=== PATIENT | female | born 1950 | race Caucasian/White ===

== ENCOUNTER 2017-11-02 12:34 | Emergency (ER) | payer MEDICARE, OTHER, SELFPAY ==
[2017-11-02 12:35] VITALS: BP 93/59; PULSE 66; RESP 18; TEMP 36.3; O2SAT 100
--- NOTE | 2017-11-02 13:00 | ED.VISSUMM ---
- ER Visit Summary Date of Service: 11/02/17 Chief Complaint: Constipation History of Present Illness: The patient is a 67 F with history of peripheral vascular disease, hypertension and rheumatoid arthritis presents with constipation. Patient states that she feels like she is impacted. She states she does get this from time to time. She states she has not had a normal bowel movement in about 5-7 days. She has been taking MiraLAX and stool softeners with little relief. She denies any fevers. She denies any abdominal pain. Her only current pain is in the rectum when she tries to move her bowels. She states there is been some scant bleeding. She denies weight loss or night sweats. Physical Examination: Vital signs reviewed General: Well-nourished, well-developed Head: Normocephalic, atraumatic Eyes: Pupils equal and reactive, extraocular muscles intact Neck, supple, no lymphadenopathy Heart: Regular rate and rhythm Respiratory: No distress, clear bilaterally Abdomen: Soft, nontender, nondistended, no peritoneal signs Rectal exam: Patient has some edema around the rectal canal, but no prolapse. There was evidence of hemorrhoid. She is impacted. Back: Nontender Extremities: Nontender, no edema, no cords Skin: Normal color no rash Neuro: Alert and oriented, no focal or lateralizing deficits Test Results: [] Emergency Department Course and Treatment: The patient was manually disimpacted at the bedside with marked improvement of symptoms. A large amount of hard stool is able to be removed. The patient was then given a soapsuds enema. She has absolutely no abdominal tenderness. The patient was able to have a bowel movements. She is feeling markedly improved. The patient will be discharged and continue stool softeners. Repeat abdominal exam is soft and nontender. Treatment Plan: [] Disposition: Discharge Impression:. Fecal impaction with manual disimpaction This note was generated with [employer] dictation software. It may contain incorrect words, spelling, and punctuation that were not noted in review of the chart prior to signing ED Disposition - Plan for ED Patient: Disposition: Home or Assisted Living Chief Complaint: Constipation Instructions: ED Impaction Fecal Treated Referrals: Rigoberto Maher [Primary Care Provider] -
[2017-11-02 14:47] VITALS: BP 92/64; PULSE 65; RESP 17; O2SAT 94
== END 2017-11-02 14:48 | disposition home or self-care (01) ==
PROVIDERS: Emergency Provider Emergency Medicine; Family Provider Family Medicine; PCP Family Medicine
DX: K56.41 Fecal impaction (principal); M06.9 Rheumatoid arthritis, unspecified
CPT/HCPCS: 99283

== ENCOUNTER 2017-11-02 20:33 | Inpatient (IN) | payer MEDICARE, OTHER, SELFPAY ==
[2017-11-02 20:33] VITALS: BP 127/64; PULSE 81; RESP 10; TEMP 37.2; O2SAT 97; BMI 30.2
[2017-11-02 21:05] LABS: Absolute Lymphocyte Count 1.26 X10^3/ul (0.83-4.51); Absolute Neutrophil Count 14.6 X10^3/uL (2.0-7.7); Basophil# 0.02 X10^3/uL; Basophil% 0.1 % (0-1); Eosinophil# 0.07 X10^3/uL; Eosinophils% 0.4 % (0-5); Hematocrit 31.6 % (37-47); Hemoglobin 10.4 g/dl (12.0-15.0); Lymphocyte # 1.26 X10^3/ul (4.0); Lymphocyte % 7.2 % (19-41); Mean Corp Hgb Conc 32.9 g/gl (32-36); Mean Corpuscular Hgb 32.4 pg (27.0-32.0); Mean Corpuscular Volume 98.4 fL (81-99); Mean Platelet Vol. 8.9 fl (6.2-12.0); Monocyte% 7.5 % (0-10); Neutrophil # 14.61 X10^3/uL (2.7-7.7); Neutrophil % 84.1 % (47-70); Platelet Count 258 K/mm3 (150-450); RBC Distribution Width CV 14.2 % (11.6-14.6); RBC Distribution Width SD 48.4 fl (35.1-43.9); Red Blood Count 3.21 M/mm3 (4.2-5.4); White Blood Count 17.4 K/mm3 (4.4-11.0)
[2017-11-02 21:06] LABS: POSITIVE COUNT NO; POSITIVE DIFFERENTIAL NO; POSITIVE MORPHOLOGY NO
[2017-11-02 21:16] LABS: Anion Gap 9 (5-15); BUN 23 mg/dL (7-18); BUN/Creat Ratio 11.8 RATIO (10-20); Calcium,Total 8.9 mg/dL (8.5-10.1); Chloride 97 mmol/L (98-107); Creatinine, Serum 1.95 mg/dL (0.55-1.02); EST Glomerular Filtration Rate 27 mL/min (>60); Est Glom Filt Rate - Afr Amer 33 mL/min (>60); Estimated Creatinine Clearance 24.84 ml/min; Glucose 118 mg/dL (74-106); Potassium 5.4 mmol/L (3.5-5.1); Sodium Level 130 mmol/L (136-145)
[2017-11-02] MEDS: 0.9% Normal Saline 1,000 ML 150 ML IV (21:24)
[2017-11-02 22:20] LABS: Bacteria 0 SEEN /hpf (None Seen); Mucous, Urine 0 SEEN /hpf (<or=2+); Red Blood Cells-Urine 0 SEEN /hpf (0-5)
[2017-11-02 22:48] LABS: Color, Urine Yellow (Yellow); Glucose, Dipstick Normal (Normal); Ketone-Dipstick Negative (Negative); Leukocyte Esterase-Dipstick 25 /ul (Negative); Nitrite-Dipstick Negative (Negative); Occult Blood-Urine Negative /ul (Negative); Protein-Dipstick 15 mg/dl (Negative); Urine Clarity Sl. Cloudy (Clear); Urine Urobilinogen Normal (Normal)
--- NOTE | 2017-11-02 22:51 | ED.VISSUMM ---
- ER Visit Summary Date of Service: 11/02/17 Chief Complaint: Weakness History of Present Illness: The patient is a 67 F who was seen in the ER earlier today for a fecal impaction. Patient states her blood pressure was a little low at that time and she felt somewhat weak. She was able to ambulate into her house with her walker at home but then was unable to stand tonight due to leg weakness. EMS transported her back to the hospital. Patient reports multiple falls recently. On further questioning she does note her legs have been getting weaker recently. Patient states this has happened to her 3 or 4 times in the past where she is required hospital admission and physical therapy. Patient states she does currently has stitches in her right knee for a fall that she sustained on October 23. Physical Examination: Vital signs are unremarkable. Patient sitting upright in bed no acute distress. Head neck examination is unremarkable. Heart is regular rate and rhythm. Lung sounds are clear. Abdomen is soft and nontender. Upper extremity examination reveals some old appearing skin tears on her left arm. Lower external examination reveals her right knee to have a 3 x 6 cm skin tear with some mild blood oozing. There is an approximately 7 cm in length laceration is irregular just medial to this. Stitches are in place in parts of the laceration, but due to the nature of the lack itself was not able to be completely closed at the time of injury. Wound was cleansed and wound edges are clean. Neuro exam reveals normal sensation to lower extremities. She has weakly palpable distal pulses. She has upgoing Babinski. She has generalized weakness and cannot lift her legs up off the bed. Test Results: CBC was a white count of 17.4 with 84% neutrophils. Hemoglobin is 10.4. Chemistry studies reveal a sodium of 130, potassium of 5.4, chloride 97. Her BUN is 23 and her creatinine is 1.95. Last labs I have available to compare to are from April 2016. Emergency Department Course and Treatment: Nursing staff attempted to get the patient up to the bedside commode. She is able to swing her legs to the side of the bed but was not able to support her own weight to stand. She was placed back into the bed and straight cath was performed. Urinalysis unremarkable does not show sign of infection. She will be admitted for further treatment and evaluation. Treatment Plan: [] Disposition: Admit Impression: 1. Bilateral leg weakness, unable to stand 2. Leukocytosis This note was generated with [employer] dictation software. It may contain incorrect words, spelling, and punctuation that were not noted in review of the chart prior to signing ED Disposition - Plan for ED Patient: Chief Complaint: Weakness Referrals: Rigoberto Maher [Primary Care Provider] -
[2017-11-02 22:58] LABS: Urine Bilirubin Dipstick 1 mg/dL (Negative)
[2017-11-02 23:07] LABS: Hyaline Cast 5-10 SEEN /lpf (0-5); Squamous Epithelial Cells - UA 0-5 SEEN /hpf (5-10); White Blood Cells 0-5 SEEN /hpf (0-5)
[2017-11-02 23:08] LABS: Amorphous Sediment 1+ URATE
[2017-11-02 23:33] VITALS: BP 102/49; PULSE 72; RESP 13; O2SAT 98
--- NOTE | 2017-11-02 23:37 | PCM.HP.STD ---
Problem List (1) Coronary atherosclerosis of [place] coronary artery Status: Chronic Qualifiers: [place] vs. transplanted heart: unspecified whether [place] or transplanted heart Associated angina: angina presence unspecified Qualified Code(s): I25.10 - Atherosclerotic heart disease of [place] coronary artery without angina pectoris (2) Peripheral neuropathy Status: Chronic Qualifiers: Peripheral neuropathy type: polyneuropathy, unspecified Qualified Code(s): G62.9 - Polyneuropathy, unspecified (3) Rheumatoid arthritis Status: Chronic Qualifiers: Rheumatoid arthritis location: unspecified site Rheumatoid factor presence: unspecified presence Qualified Code(s): M06.9 - Rheumatoid arthritis, unspecified (4) Traumatic open wound of lower leg Status: Chronic Qualifiers: Encounter type: subsequent encounter Laterality: right Qualified Code(s): S81.801D - Unspecified open wound, right lower leg, subsequent encounter (5) Lumbar spinal stenosis Status: Chronic (6) Bilateral lower extremity weakness Status: Chronic (7) Back pain Status: Chronic Qualifiers: Back pain location: low back pain Back pain laterality: bilateral Sciatica presence: with sciatica Sciatica laterality: bilateral sciatica (8) Lumbar radiculopathy Status: Chronic (9) Hyperlipidemia Status: Chronic Qualifiers: Hyperlipidemia type: mixed hyperlipidemia Qualified Code(s): E78.2 - Mixed hyperlipidemia (10) Asthma Status: Chronic Qualifiers: Asthma severity: unspecified severity Asthma persistence: unspecified Asthma complication type: uncomplicated Qualified Code(s): J45.909 - Unspecified asthma, uncomplicated (11) Hypertension Status: Chronic Qualifiers: Hypertension type: essential hypertension Qualified Code(s): I10 - Essential (primary) hypertension (12) Foot drop, left Status: Chronic (13) PAD (peripheral artery disease) Status: Chronic (14) Cellulitis Status: Acute Qualifiers: Site of cellulitis: extremity Site of cellulitis of extremity: lower extremity Laterality: right Qualified Code(s): L03.115 - Cellulitis of right lower limb (15) ANDRIY (acute kidney injury) Status: Acute (16) Lower extremity weakness Status: Acute Qualifiers: Laterality: bilateral Qualified Code(s): R29.898 - Other symptoms and signs involving the musculoskeletal system History of Present Illness Date of Admission: 11/02/17 Chief Complaint: Falls, RLE laceration, s/p suture, recent abx, fecal impacting, increased BL LE weakness. The patient is a 67 y/o F w/ PMHx: Chronic Normocytic anemia, CAD s/p PCI x 3, PAD s/p BL femoral stents, RA, Chronic back pain w/ lumbar stenosis s/p lumbar fusion w/ radiculopathy, Asthma, HTN, HLD, Obesity, Left Foot Drop who presents to the [facility] ED on 11/02/17 with history of frequent falls, most recently a couple days prior w/ laceration to the RLE w/ concern for infection per primary care physician and initiation levaquin, recent acute on chronic constipation requiring ED evaluation 11/02/17 earlier in the day w/ fecal disimpaction required with improvement following however upon return to home noted increased LE weakness, not specifically increased pain which had improved following fecal disimpaction. She notes currently she is at her back pain baseline. She denies any loss of bowel or bladder function. She denies any marked changes in regards to paresthesias. She denies any recent fevers or chills. In the ED work-up included T 99, HR 70-80s, BP 102/49, RR 13, 98% on RA, CBC w/ WBC 17.4, Hgb 10.3, Plts 258 with L shift, BMP w/ Na 130, K 5.4, Chl 97, BUN/Cr 23/1.95, glucose 118, UA not marked appearing. Past Medical History Past Medical History (Chronic Problems): Chronic Problems Coronary atherosclerosis of [place] coronary artery (Chronic) Peripheral neuropathy (Chronic) Rheumatoid arthritis (Chronic) Traumatic open wound of lower leg (Chronic) Struck by falling object (Chronic) W20.8XXD Lumbar spinal stenosis (Chronic) Bilateral lower extremity weakness (Chronic) Ulcer of left lower extremity with fat layer exposed (Chronic) Risk for falls (Chronic) Back pain (Chronic) Lumbar radiculopathy (Chronic) Hyperlipidemia (Chronic) Lumbar disc disease (Chronic) Asthma (Chronic) Hypertension (Chronic) Foot drop, left (Chronic) PAD (peripheral artery disease) (Chronic) Allergies colesevelam HCl [From WelChol] Allergy (Verified 11/02/17 12:35) Unknown metolazone [From Zaroxolyn] Allergy (Verified 11/02/17 12:35) Unknown nitrofurantoin macrocrystalline [From Macrodantin] Allergy (Verified 11/02/17 12:35) Unknown Penicillins Allergy (Verified 11/02/17 12:35) Unknown pravastatin sodium [From Pravachol] Allergy (Verified 11/02/17 12:35) Unknown Home Medications: Ambulatory Orders Medication Instructions Recorded Cyanocobalamin [Vitamin B12] 1,000 mcg IM Q30D 06/19/15 Montelukast [Singulair] 10 mg PO DAILY 06/19/15 Nitroglycerin [Nitrostat] 0.4 mg SUBLINGUAL Q5M PRN 06/19/15 Quinapril HCl [Accupril] 10 mg PO QHS 06/19/15 Ranolazine [Ranexa] 1,000 mg PO BID 06/19/15 Temazepam [Restoril] 30 mg PO QHS PRN PRN 06/19/15 Albuterol Inhaler [Ventolin Hfa] 1 puff INHALATION Q4H PRN PRN 05/01/16 Bumetanide 1 mg PO DAILY 05/01/16 Ergocalciferol [Vitamin D] 50,000 unit PO SA 05/01/16 Omeprazole 40 mg PO BID 05/01/16 Aspirin E.C. [Ecotrin] 81 mg PO DAILYCM #30 tablet 05/03/16 Acetaminophen with Codeine 1 each PO Q8 PRN 11/02/17 [Tylenol with Codeine #3 Tablet] Atorvastatin Calcium [Lipitor] 80 mg PO QHS 11/02/17 Furosemide [Furosemide] 40 mg BID 11/02/17 Gabapentin [Neurontin] 400 mg BID 11/02/17 Levofloxacin [Levaquin] 750 mg DAILY 11/02/17 Prednisone [Prednisone] 5 mg DAILY 11/02/17 Smz/Tmp Ds [Bactrim Ds] 1 tablet PO DAILY 11/02/17 Spironolactone 25 mg PO BID 11/02/17 Surgical History: noncontributory, - - The patient has had coronary stents placed in the past, as well as femoral stents in her lower extremities bilaterally by Dr. Alden Hernández. She has undergone lumbar fusion at L5. She is undergone right carpal tunnel release. Psychiatric History: No pertinent psych hx [employer] History: No pertinent [employer] history Lives: Spouse/ Significant Other Smoking Status: Former smoker - Quit 1996. Tobacco Use: Non-smoker Alcohol: None Drugs: None - *Family History Maternal History Items: - - The patient's mother in her 60s from lung cancer. Paternal History Items: - - The patient's father at age of 82 of congestive heart failure. Review of Systems Constitutional: Reports: Malaise, Weakness, Fatigue. Denies: Chills, Fever, Weight Change HEENT: Denies: Head Aches, Sinus Congestion, Sinus Drainage Cardiovascular: Denies: Chest Pain, Palpitations Respiratory: Denies: Cough, Shortness of breath at rest, Sputum production Gastrointestinal: Reports: Abdominal Pain, Constipation. Denies: Nausea, Vomiting Genitourinary: Denies: Dysuria Musculoskeletal: Reports: Back Pain. Denies: Joint Pain, Joint Tenderness Skin: Denies: Rash, Wounds Neurological: Reports: Focal weakness, Numbness, Tingling Psychiatric: Denies: Anxiety, Depression, Homicidal Ideations, Suicidal Ideations Hematologic/ Lymphatic: Reports: Anemia, Easy Bruising, Easy Bleeding VTE Information - Inpt Only VTE Present on Admission: No VTE Mechan Device Prophylaxis: SCD's VTE Pharm Prophylaxis ordered?: Yes Patient Problems: Active and Suspected Problems Cellulitis (Acute) ANDRIY (acute kidney injury) (Acute) Lower extremity weakness (Acute) Subjective: Seated upright in the ED bed, fatigued. Objective: Physical Examination: General: awake, alert, oriented x 3 and cooperative, seated upright in the ED bed in no apparent distress. Skin: normal color, turgor, no icterus, cyanosis, several abrasions to BL LE, notable diffuse extremity various staged ecchymoses, fall with right lower extremity laceration status post suturing repair, currently not market appearance but recently per report was concern for cellulitis with start on oral antibiotic therapy, cleansed and redressed in the ED. HEENT: AT/NC, EOMI, PERRLA, dry MM, no carotid bruits or JVD noted. Lungs: CTA bilaterally, moderate effort, moderate decrease BL bases, no rales, ronchi or wheezing. Heart: Regular rate and rhythm; no gallop, rub audible. Abdomen: soft, obese, NTTP, ND, normal BS, no HSM. Extremities: no cyanosis, clubbing, RLE 2+ edema ankle to knee, LLE < edematous 1+. Neurological: patient awake, alert, oriented x 3; cognitive function intact; pupils equally reactive to light and accomodation; cranial nerves II-XII grossly normal, moving all 4 extremities, strength BL LE globally severely weakness, no specific focal deficit. Psychiatric: affect appears fatigued, no acute evidence of depressive or anxiety feelings. - Physical Exam Vital Signs Temp Pulse Resp BP Pulse Ox 99.0 F 81 10 L 127/64 H 97 11/02/17 20:33 11/02/17 20:33 11/02/17 20:33 11/02/17 20:33 11/02/17 20:33 Oxygen Delivery Method Room Air Weight: 176 lb 2.389 oz Body Mass Index (BMI) 30.2 Laboratory Tests Past 24 Hrs 11/02/17 11/02/17 11/02/17 20:55 20:55 22:16 WBC 17.4 H RBC 3.21 L Hgb 10.4 L Hct 31.6 L MCV 98.4 MCH 32.4 H MCHC 32.9 RDW 14.2 RDW Differential 48.4 H Plt Count 258 MPV 8.9 Immature Gran % (Auto) 0.700 Neut % (Auto) 84.1 H Lymph % (Auto) 7.2 L [place] % (Auto) 7.5 Eos % (Auto) 0.4 Baso % (Auto) 0.1 Absolute Neuts (auto) 14.6 H Absolute Lymphs (auto) 1.26 Total Counted Not Reportable Sodium 130 L Potassium 5.4 H Chloride 97 L Carbon Dioxide 24.0 Anion Gap 9 BUN 23 H Creatinine 1.95 H Estim Creat Clear Calc 24.84 Est GFR (MDRD) Af Amer 33 L Est GFR (MDRD) Non-Af 27 L BUN/Creatinine Ratio 11.8 Glucose 118 H Calcium 8.9 Urine Color Yellow Urine Clarity Sl. Cloudy Urine pH 5.0 Ur Specific [place] 1.020 Urine Protein 15 H Urine Glucose (UA) Normal Urine Ketones Negative Urine Occult Blood Negative Urine Nitrite Negative Urine Bilirubin 1 H Urine Urobilinogen Normal Ur Leukocyte Esterase 25 H Urine RBC 0 SEEN Urine WBC 0-5 SEEN Ur Squamous Epith Cells 0-5 SEEN Amorphous Sediment 1+ URATE Urine Bacteria 0 SEEN Hyaline Casts 5-10 SEEN Urine Mucus 0 SEEN Assessment/Plan Active and Suspected Problems Cellulitis (Acute) ANDRIY (acute kidney injury) (Acute) Lower extremity weakness (Acute) The patient is a 67 y/o F w/ PMHx: Chronic Normocytic anemia, CAD s/p PCI x 3, PAD s/p BL femoral stents, RA, Chronic back pain w/ lumbar stenosis s/p lumbar fusion w/ radiculopathy, Asthma, HTN, HLD, Obesity, Left Foot Drop who presents to the [facility] ED on 11/02/17 with history of frequent falls, most recently a couple days prior w/ laceration to the RLE w/ concern for infection per primary care physician and initiation levaquin, recent acute on chronic constipation requiring ED evaluation 11/02/17 earlier in the day w/ fecal disimpaction required with improvement following however upon return to home noted increased LE weakness, not specifically increased pain which had improved following fecal disimpaction. (1) RLE Recent Extremity Cellulitis s/p Recent Fall w/ Laceration, s/p sutures: Admission CBC w/ WBC 17.4 with L shift. Will admit to [facility], initiate IV Rocephin (only took 1 dose oral abx levaquin regimen), wound RN evaluation, cleansed and re-dressed in the ED, plan repeat CBC in AM, continue affected extremity elevation above heart when seated and in bed, monitor erythema outline with VS checks, snug NOREEN wraps. (2) Acute kidney injury: Secondary to suspected dehydration, nephrotoxic regimen, poor intake. Admission BUN/Cr 23/1.95, prior baseline creatinine noted to be 1.2. Will hydrate, hold nephrotoxic medications and repeat chemistry in AM. If no improvement would plan FeNa assessment and renal US. (3) Hyponatremia, Suspected Hypovolemic: Admission Na 130, BUN/Cr mildly elevated also, suspect mild dehydration, will gently hydrate, trend BMP. (4) BL LE Increased Acute on Chronic Weakness complicated by Chronic Pain Syndrome, Chronic Back Pain: Fall precautions, frequent position changes, PT and OT therapies/evaluations, PRN pain regimen. If acute on chronic then would initiate steroid burst and would given history need to consider re-imaging on her lumbar spine. Primarily weakness increased w/ ambulatory attempts. (5) Hypertension: Holding home nephrotoxic regimen, add back once renal fx improved, PRN hydralazine. (6) Hyperlipidemia: Maintain on home statin therapy. (7) CAD, PAF: s/p PCI x 3, BL LE femoral stents, maintain on asa therapy, not on BB secondary to asthma likely, continue statin therapy. (8) Asthma: ATC duonebs, PRN albuterol, HOB, IS parameters, singulair. (9) RA: Regimen clarification pending, notes 5 mg prednisone daily prior. (10) Chronic Normocytic Anemia: Admission Hgb 10.4, baseline Hgb 10-11, stable, trend. (11) Obesity: Weight loss and lifestyle changes encouraged. (12) Chronic Constipation: Initiate aggressive bowel regimen given ongoing issue, noted frequent requirement for disimpaction. (13) DVT Prophylaxis: SCDs, heparin. Code Visit Inpatient E&M: 59493 Init Hosp L3
--- NOTE | 2017-11-02 23:42 | HP.PCM_ITS ---
Problem List (1) Coronary atherosclerosis of cherokee coronary artery Status: Chronic Qualifiers: [place] vs. transplanted heart: unspecified whether cherokee or transplanted heart Associated angina: angina presence unspecified Qualified Code(s): I25.10 - Atherosclerotic heart disease of cherokee coronary artery without angina pectoris (2) Peripheral neuropathy Status: Chronic Qualifiers: Peripheral neuropathy type: polyneuropathy, unspecified Qualified Code(s): G62.9 - Polyneuropathy, unspecified (3) Rheumatoid arthritis Status: Chronic Qualifiers: Rheumatoid arthritis location: unspecified site Rheumatoid factor presence : unspecified presence Qualified Code(s): M06.9 - Rheumatoid arthritis, unspecified (4) Traumatic open wound of lower leg Status: Chronic Qualifiers: Encounter type: subsequent encounter Laterality: right Qualified Code(s) : S81.801D - Unspecified open wound, right lower leg, subsequent encounter (5) Lumbar spinal stenosis Status: Chronic (6) Bilateral lower extremity weakness Status: Chronic (7) Back pain Status: Chronic Qualifiers: Back pain location: low back pain Back pain laterality: bilateral Sciatica presence: with sciatica Sciatica laterality: bilateral sciatica (8) Lumbar radiculopathy Status: Chronic (9) Hyperlipidemia Status: Chronic Qualifiers: Hyperlipidemia type: mixed hyperlipidemia Qualified Code(s): E78.2 - Mixed hyperlipidemia (10) Asthma Status: Chronic Qualifiers: Asthma severity: unspecified severity Asthma persistence: unspecified Asthma complication type: uncomplicated Qualified Code(s): J45.909 - Unspecified asthma, uncomplicated (11) Hypertension Status: Chronic Qualifiers: Hypertension type: essential hypertension Qualified Code(s): I10 - Essential (primary) hypertension (12) Foot drop, left Status: Chronic (13) PAD (peripheral artery disease) Status: Chronic (14) Cellulitis Status: Acute Qualifiers: Site of cellulitis: extremity Site of cellulitis of extremity: lower extremity Laterality: right Qualified Code(s): L03.115 - Cellulitis of right lower limb (15) ANDRIY (acute kidney injury) Status: Acute (16) Lower extremity weakness Status: Acute Qualifiers: Laterality: bilateral Qualified Code(s): R29.898 - Other symptoms and signs involving the musculoskeletal system History of Present Illness Date of Admission: 11/02/17 Chief Complaint: Falls, RLE laceration, s/p suture, recent abx, fecal impacting , increased BL LE weakness. The patient is a 67 y/o F w/ PMHx: Chronic Normocytic anemia, CAD s/p PCI x 3, PAD s/p BL femoral stents, RA, Chronic back pain w/ lumbar stenosis s/p lumbar fusion w/ radiculopathy, Asthma, HTN, HLD, Obesity, Left Foot Drop who presents to the [facility] ED on 11/02/17 with history of frequent falls, most recently a couple days prior w/ laceration to the RLE w/ concern for infection per primary care physician and initiation levaquin, recent acute on chronic constipation requiring ED evaluation 11/02/17 earlier in the day w/ fecal disimpaction required with improvement following however upon return to home noted increased LE weakness, not specifically increased pain which had improved following fecal disimpaction. She notes currently she is at her back pain baseline. She denies any loss of bowel or bladder function. She denies any marked changes in regards to paresthesias. She denies any recent fevers or chills. In the ED work-up included T 99, HR 70-80s, BP 102/49, RR 13, 98% on RA, CBC w/ WBC 17.4, Hgb 10.3 , Plts 258 with L shift, BMP w/ Na 130, K 5.4, Chl 97, BUN/Cr 23/1.95, glucose 118, UA not marked appearing. Past Medical History Past Medical History (Chronic Problems): Chronic Problems Coronary atherosclerosis of cherokee coronary artery (Chronic) Peripheral neuropathy (Chronic) Rheumatoid arthritis (Chronic) Traumatic open wound of lower leg (Chronic) Struck by falling object (Chronic) W20.8XXD Lumbar spinal stenosis (Chronic) Bilateral lower extremity weakness (Chronic) Ulcer of left lower extremity with fat layer exposed (Chronic) Risk for falls (Chronic) Back pain (Chronic) Lumbar radiculopathy (Chronic) Hyperlipidemia (Chronic) Lumbar disc disease (Chronic) Asthma (Chronic) Hypertension (Chronic) Foot drop, left (Chronic) PAD (peripheral artery disease) (Chronic) Allergies colesevelam HCl [From WelChol] Allergy (Verified 11/02/17 12:35) Unknown metolazone [From Zaroxolyn] Allergy (Verified 11/02/17 12:35) Unknown nitrofurantoin macrocrystalline [From Macrodantin] Allergy (Verified 11/02/17 12 :35) Unknown Penicillins Allergy (Verified 11/02/17 12:35) Unknown pravastatin sodium [From Pravachol] Allergy (Verified 11/02/17 12:35) Unknown Home Medications: Ambulatory Orders Medication Instructions Recorded Cyanocobalamin [Vitamin B12] 1,000 mcg IM Q30D 06/19/15 Montelukast [Singulair] 10 mg PO DAILY 06/19/15 Nitroglycerin [Nitrostat] 0.4 mg SUBLINGUAL Q5M PRN 06/19/15 Quinapril HCl [Accupril] 10 mg PO QHS 06/19/15 Ranolazine [Ranexa] 1,000 mg PO BID 06/19/15 Temazepam [Restoril] 30 mg PO QHS PRN PRN 06/19/15 Albuterol Inhaler [Ventolin Hfa] 1 puff INHALATION Q4H PRN PRN 05/01/16 Bumetanide 1 mg PO DAILY 05/01/16 Ergocalciferol [Vitamin D] 50,000 unit PO SA 05/01/16 Omeprazole 40 mg PO BID 05/01/16 Aspirin E.C. [Ecotrin] 81 mg PO DAILYCM #30 tablet 05/03/16 Acetaminophen with Codeine 1 each PO Q8 PRN 11/02/17 [Tylenol with Codeine #3 Tablet] Atorvastatin Calcium [Lipitor] 80 mg PO QHS 11/02/17 Furosemide [Furosemide] 40 mg BID 11/02/17 Gabapentin [Neurontin] 400 mg BID 11/02/17 Levofloxacin [Levaquin] 750 mg DAILY 11/02/17 Prednisone [Prednisone] 5 mg DAILY 11/02/17 Smz/Tmp Ds [Bactrim Ds] 1 tablet PO DAILY 11/02/17 Spironolactone 25 mg PO BID 11/02/17 Surgical History: noncontributory, - - The patient has had coronary stents placed in the past, as well as femoral stents in her lower extremities bilaterally by Dr. Alden Hernández. She has undergone lumbar fusion at L5. She is undergone right carpal tunnel release. Psychiatric History: No pertinent psych hx PHLEBOTOMY TECHNICIAN History: No pertinent PHLEBOTOMY TECHNICIAN history Lives: Spouse/ Significant Other Smoking Status: Former smoker - Quit 1996. Tobacco Use: Non-smoker Alcohol: None Drugs: None - *Family History Maternal History Items: - - The patient's mother in her 60s from lung cancer. Paternal History Items: - - The patient's father at age of 82 of congestive heart failure. Review of Systems Constitutional: Reports: Malaise, Weakness, Fatigue. Denies: Chills, Fever, Weight Change HEENT: Denies: Head Aches, Sinus Congestion, Sinus Drainage Cardiovascular: Denies: Chest Pain, Palpitations Respiratory: Denies: Cough, Shortness of breath at rest, Sputum production Gastrointestinal: Reports: Abdominal Pain, Constipation. Denies: Nausea, Vomiting Genitourinary: Denies: Dysuria Musculoskeletal: Reports: Back Pain. Denies: Joint Pain, Joint Tenderness Skin: Denies: Rash, Wounds Neurological: Reports: Focal weakness, Numbness, Tingling Psychiatric: Denies: Anxiety, Depression, Homicidal Ideations, Suicidal Ideations Hematologic/ Lymphatic: Reports: Anemia, Easy Bruising, Easy Bleeding VTE Information - Inpt Only VTE Present on Admission: No VTE Mechan Device Prophylaxis: SCD's VTE Pharm Prophylaxis ordered?: Yes Patient Problems: Active and Suspected Problems Cellulitis (Acute) ANDRIY (acute kidney injury) (Acute) Lower extremity weakness (Acute) Subjective: Seated upright in the ED bed, fatigued. Objective: Physical Examination: General: awake, alert, oriented x 3 and cooperative, seated upright in the ED bed in no apparent distress. Skin: normal color, turgor, no icterus, cyanosis, several abrasions to BL LE, notable diffuse extremity various staged ecchymoses, fall with right lower extremity laceration status post suturing repair, currently not market appearance but recently per report was concern for cellulitis with start on oral antibiotic therapy, cleansed and redressed in the ED. HEENT: AT/NC, EOMI, PERRLA, dry MM, no carotid bruits or JVD noted. Lungs: CTA bilaterally, moderate effort, moderate decrease BL bases, no rales, ronchi or wheezing. Heart: Regular rate and rhythm; no gallop, rub audible. Abdomen: soft, obese, NTTP, ND, normal BS, no HSM. Extremities: no cyanosis, clubbing, RLE 2+ edema ankle to knee, LLE < edematous 1+. Neurological: patient awake, alert, oriented x 3; cognitive function intact; pupils equally reactive to light and accomodation; cranial nerves II-XII grossly normal, moving all 4 extremities, strength BL LE globally severely weakness, no specific focal deficit. Psychiatric: affect appears fatigued, no acute evidence of depressive or anxiety feelings. - Physical Exam Vital Signs Temp Pulse Resp BP Pulse Ox 99.0 F 81 10 L 127/64 H 97 11/02/17 20:33 11/02/17 20:33 11/02/17 20:33 11/02/17 20:33 11/02/17 20:33 Oxygen Delivery Method Room Air Weight: 176 lb 2.389 oz Body Mass Index (BMI) 30.2 Laboratory Tests Past 24 Hrs 11/02/17 11/02/17 11/02/17 20:55 20:55 22:16 WBC 17.4 H RBC 3.21 L Hgb 10.4 L Hct 31.6 L MCV 98.4 MCH 32.4 H MCHC 32.9 RDW 14.2 RDW Differential 48.4 H Plt Count 258 MPV 8.9 Immature Gran % (Auto) 0.700 Neut % (Auto) 84.1 H Lymph % (Auto) 7.2 L Gregory % (Auto) 7.5 Eos % (Auto) 0.4 Baso % (Auto) 0.1 Absolute Neuts (auto) 14.6 H Absolute Lymphs (auto) 1.26 Total Counted Not Reportable Sodium 130 L Potassium 5.4 H Chloride 97 L Carbon Dioxide 24.0 Anion Gap 9 BUN 23 H Creatinine 1.95 H Estim Creat Clear Calc 24.84 Est GFR (MDRD) Af Amer 33 L Est GFR (MDRD) Non-Af 27 L BUN/Creatinine Ratio 11.8 Glucose 118 H Calcium 8.9 Urine Color Yellow Urine Clarity Sl. Cloudy Urine pH 5.0 Ur Specific [place] 1.020 Urine Protein 15 H Urine Glucose (UA) Normal Urine Ketones Negative Urine Occult Blood Negative Urine Nitrite Negative Urine Bilirubin 1 H Urine Urobilinogen Normal Ur Leukocyte Esterase 25 H Urine RBC 0 SEEN Urine WBC 0-5 SEEN Ur Squamous Epith Cells 0-5 SEEN Amorphous Sediment 1+ URATE Urine Bacteria 0 SEEN Hyaline Casts 5-10 SEEN Urine Mucus 0 SEEN Assessment/Plan Active and Suspected Problems Cellulitis (Acute) ANDRIY (acute kidney injury) (Acute) Lower extremity weakness (Acute) The patient is a 67 y/o F w/ PMHx: Chronic Normocytic anemia, CAD s/p PCI x 3, PAD s/p BL femoral stents, RA, Chronic back pain w/ lumbar stenosis s/p lumbar fusion w/ radiculopathy, Asthma, HTN, HLD, Obesity, Left Foot Drop who presents to the [facility] ED on 11/02/17 with history of frequent falls, most recently a couple days prior w/ laceration to the RLE w/ concern for infection per primary care physician and initiation levaquin, recent acute on chronic constipation requiring ED evaluation 11/02/17 earlier in the day w/ fecal disimpaction required with improvement following however upon return to home noted increased LE weakness, not specifically increased pain which had improved following fecal disimpaction. (1) RLE Recent Extremity Cellulitis s/p Recent Fall w/ Laceration, s/p sutures: Admission CBC w/ WBC 17.4 with L shift. Will admit to [facility], initiate IV Rocephin ( only took 1 dose oral abx levaquin regimen), wound RN evaluation, cleansed and re-dressed in the ED, plan repeat CBC in AM, continue affected extremity elevation above heart when seated and in bed, monitor erythema outline with VS checks, snug NOREEN wraps. (2) Acute kidney injury: Secondary to suspected dehydration, nephrotoxic regimen , poor intake. Admission BUN/Cr 23/1.95, prior baseline creatinine noted to be 1.2. Will hydrate, hold nephrotoxic medications and repeat chemistry in AM. If no improvement would plan FeNa assessment and renal US. (3) Hyponatremia, Suspected Hypovolemic: Admission Na 130, BUN/Cr mildly elevated also, suspect mild dehydration, will gently hydrate, trend BMP. (4) BL LE Increased Acute on Chronic Weakness complicated by Chronic Pain Syndrome, Chronic Back Pain: Fall precautions, frequent position changes, PT and OT therapies/evaluations, PRN pain regimen. If acute on chronic then would initiate steroid burst and would given history need to consider re-imaging on her lumbar spine. Primarily weakness increased w/ ambulatory attempts. (5) Hypertension: Holding home nephrotoxic regimen, add back once renal fx improved, PRN hydralazine. (6) Hyperlipidemia: Maintain on home statin therapy. (7) CAD, PAF: s/p PCI x 3, BL LE femoral stents, maintain on asa therapy, not on BB secondary to asthma likely, continue statin therapy. (8) Asthma: ATC duonebs, PRN albuterol, HOB, IS parameters, singulair. (9) RA: Regimen clarification pending, notes 5 mg prednisone daily prior. (10) Chronic Normocytic Anemia: Admission Hgb 10.4, baseline Hgb 10-11, stable, trend. (11) Obesity: Weight loss and lifestyle changes encouraged. (12) Chronic Constipation: Initiate aggressive bowel regimen given ongoing issue , noted frequent requirement for disimpaction. (13) DVT Prophylaxis: SCDs, heparin. Code Visit Inpatient E&M: 90558 Init Hosp L3
[2017-11-02 23:50] VITALS: BP 102/49; PULSE 72; RESP 13; O2SAT 98
[2017-11-03] VITALS (9 sets, daily range): BP systolic 115–126; BP diastolic 53–68; PULSE 69–76; RESP 16–18; TEMP 36.5–37; O2SAT 93–100; BMI 29.9
[2017-11-03 01:02] LABS: Magnesium 1.8 mg/dL (1.6-2.6)
[2017-11-03] MEDS: 0.9% Normal Saline 1,000 ML 125 ML IV ×3 (01:13→20:12)
[2017-11-03] MEDS: 0.9% NaCl Peripheral Flush Adult/Peds IV ×2 (01:14→15:25)
[2017-11-03] MEDS: Ceftriaxone 1 GM/50 ML BAG IV (01:14)
[2017-11-03] MEDS: HYDROcodone Bitartrate/Apap 5/325 Tablet PO ×4 (01:46→23:07)
[2017-11-03 06:28] LABS: Absolute Lymphocyte Count 1.74 X10^3/ul (0.83-4.51); Absolute Neutrophil Count 12.8 X10^3/uL (2.0-7.7); Basophil# 0.02 X10^3/uL; Basophil% 0.1 % (0-1); Eosinophil# 0.11 X10^3/uL; Eosinophils% 0.7 % (0-5); Hematocrit 27.5 % (37-47); Lymphocyte # 1.74 X10^3/ul (4.0); Mean Corp Hgb Conc 32.7 g/gl (32-36); Mean Corpuscular Hgb 32.8 pg (27.0-32.0); Mean Corpuscular Volume 100.4 fL (81-99); Mean Platelet Vol. 8.9 fl (6.2-12.0); Monocyte# 1.01 X10^3/uL; Monocyte% 6.4 % (0-10); Neutrophil # 12.82 X10^3/uL (2.7-7.7); Neutrophil % 81.3 % (47-70); Platelet Count 227 K/mm3 (150-450); RBC Distribution Width CV 14.2 % (11.6-14.6); RBC Distribution Width SD 49.8 fl (35.1-43.9); Red Blood Count 2.74 M/mm3 (4.2-5.4); White Blood Count 15.8 K/mm3 (4.4-11.0)
[2017-11-03 06:33] LABS: POSITIVE COUNT NO; POSITIVE DIFFERENTIAL NO; POSITIVE MORPHOLOGY NO
[2017-11-03] MEDS: Ipratropium/Albuterol Sulfate 3 ML AMPUL.NEB INHALATION ×3 (06:33→19:01)
[2017-11-03 06:52] LABS: Anion Gap 8 (5-15); BUN 21 mg/dL (7-18); Calcium,Total 8.4 mg/dL (8.5-10.1); Chloride 100 mmol/L (98-107); Creatinine, Serum 1.62 mg/dL (0.55-1.02); EST Glomerular Filtration Rate 34 mL/min (>60); Est Glom Filt Rate - Afr Amer 41 mL/min (>60); Glucose 86 mg/dL (74-106); Potassium 4.8 mmol/L (3.5-5.1); Sodium Level 131 mmol/L (136-145)
[2017-11-03] MEDS: Aspirin E.C. 81 MG Tablet PO (07:59)
[2017-11-03] MEDS: Psyllium 1 PACKET PO (08:59)
[2017-11-03] MEDS: Senna/Docusate Sodium 1 Tablet 2 TABLET PO (09:00)
[2017-11-03] MEDS: Pantoprazole Sodium 40 MG Tablet PO ×2 (09:00→22:16)
[2017-11-03] MEDS: Ranolazine 500 MG Tablet 1000 MG PO ×2 (09:00→22:16)
[2017-11-03] MEDS: Montelukast 10 MG Tablet PO (09:00)
[2017-11-03] MEDS: Polyethylene Glycol 3350 17 GM PACKET PO (09:00)
--- NOTE | 2017-11-03 09:43 | NURSING ---
wound photo: left knee
--- NOTE | 2017-11-03 09:44 | NURSING ---
wound photo: right knee
--- NOTE | 2017-11-03 09:44 | NURSING ---
wound photo: right arm
[2017-11-03 13:22] LABS: Vitamin B12 633 pg/mL (211-911)
[2017-11-03 13:24] LABS: Ferritin 191 ng/mL (8-252); Iron 27 ug/dL (50-170); Iron Binding Capacity,Total 244 ug/dL (250-450); PERCENT IRON SATURATION 11.1 % (15.0-55.0)
--- NOTE | 2017-11-03 14:01 | PN_ITS ---
Addendum entered and electronically signed by MARILYN Bess 11/03/17 17:18: Code Visit DVT ppx: heparin BID - will continue unless she shows active bleeding or anemia worsens. Original Note: <Hebert Zamudio - Last Filed: 11/03/17 17:16> Patient Problems: Active and Suspected Problems Cellulitis (Acute) ANDRIY (acute kidney injury) (Acute) Lower extremity weakness (Acute) Subjective: Best resting comfortably in bed NAD. She was admitted for cellulitis of the RLE which occurred after obtaining lacerations from a fall recently which were partially sutured. She currently has no complaints of fever or chills. She has noticed some yellow discharge from the wounds on her right leg and reports she has been hospitalized prior for MRSA to the RLE - last time she had MRSA was about a year ago. She cannot recall what hospital she was hospitalized at. - Physical Exam General: Alert, Oriented x3, Cooperative HEENT: Atraumatic, PERRLA, EOMI, Normocephalic Neck: Supple, No JVD, Negative Carotid Bruits Lungs: Clear to auscultation, Normal air movement Cardiovascular: Regular rate, No murmurs Abdomen: Bowel Sounds Present, Soft, Non Tender Extremities: No edema, Capillary Refill Less than 3 Seconds Skin: No rashes, No breakdown, - - lacerations to the RLE with surrounding erythema Musculoskeletal: No Tenderness to Palpation of Joints or Extremities Neurological: Cranial nerves II-XII grossly intact Psych/Mental Status: Normal Affect, Appropriate, Alert and oriented to time, place, person, mood and affect Vital Signs Temp Pulse Resp BP Pulse Ox 98.0 F 73 18 126/61 H 100 11/03/17 12:22 11/03/17 12:22 11/03/17 12:22 11/03/17 12:22 11/03/17 12:22 Oxygen Delivery Method Room Air Weight: 79.2 kg Body Mass Index (BMI) 29.9 Intake and Output for Last 24 Hours 11/01/17 11/02/17 11/03/17 23:59 23:59 23:59 Intake Total 2625 / 2625 Output Total 2800 / 2800 Balance -175 / -175 Laboratory Tests Past 24 Hrs 11/03/17 11/03/17 11/03/17 06:06 06:06 06:06 WBC 15.8 H RBC 2.74 L Hgb 9.0 L Hct 27.5 L MCV 100.4 H MCH 32.8 H MCHC 32.7 RDW 14.2 RDW Differential 49.8 H Plt Count 227 MPV 8.9 Immature Gran % (Auto) 0.500 Neut % (Auto) 81.3 H Lymph % (Auto) 11.0 L [place] % (Auto) 6.4 Eos % (Auto) 0.7 Baso % (Auto) 0.1 Absolute Neuts (auto) 12.8 H Absolute Lymphs (auto) 1.74 Total Counted Not Reportable Sodium 131 L Potassium 4.8 Chloride 100 Carbon Dioxide 23.0 Anion Gap 8 BUN 21 H Creatinine 1.62 H Estim Creat Clear Calc 29.90 Est GFR (MDRD) Af Amer 41 L Est GFR (MDRD) Non-Af 34 L BUN/Creatinine Ratio 13.0 Glucose 86 Calcium 8.4 L Iron 27 L TIBC 244 L Iron Saturation 11.1 L Ferritin 191 Vitamin B12 Folate 19.40 11/03/17 06:06 WBC RBC Hgb Hct MCV MCH MCHC RDW RDW Differential Plt Count MPV Immature Gran % (Auto) Neut % (Auto) Lymph % (Auto) [place] % (Auto) Eos % (Auto) Baso % (Auto) Absolute Neuts (auto) Absolute Lymphs (auto) Total Counted Sodium Potassium Chloride Carbon Dioxide Anion Gap BUN Creatinine Estim Creat Clear Calc Est GFR (MDRD) Af Amer Est GFR (MDRD) Non-Af BUN/Creatinine Ratio Glucose Calcium Iron TIBC Iron Saturation Ferritin Vitamin B12 633 Folate Assessment/Plan Active and Suspected Problems Cellulitis (Acute) ANDRIY (acute kidney injury) (Acute) Lower extremity weakness (Acute) 1. RLE cellulitis from fall with lac - was prescribed levaquin as outpatient but only took one dose. Started on rocephin overnight. Wound nurse on consult. Allergic to PCN - fainted last time she took it. With Hx of MRSA and wound with yellow discharge - will treat for MRSA. Change abx to Vancomycin and Ancef with renal dosing. Obtain MRSA/MSSA PCR and wound cultures. Blood cultures pending. Urine negative. Afebril. Leukocytosis improving. She is immunocompromised 2/2 chronic prednisone therapy for RA. She also has a hx of PAD which will complicate wound healing. 2. ANDRIY - with Hyponatremia - probably hypovolemic, will monitor on IV NaCl. I am concerned that she has both bumex and lasix listed on her home meds this could explain her hypovolemia and ANDRIY. These are being held. suspect dehydration. IV fluids. Improved. Avoid nephrotoxins. 3. Hyperkalemia resolved 4. Hx asthma - stable, duonebs, albuterol, singulair 5. Macrocytic anemia - T/S. Check Iron panel, B12, folate. 6. RA - on chronic prednisone 7. Debility 2/2 - Recent falls. Severe lumbar and cervical spine disease and RA - PTOT consults. 8. Hx CAD - on statin, ranexa 9. HTN - stable 10. Obesity - dietary consult. DVT pps: SCDs, severe anemia - no chemoppx DC planning: PTOT This patient was seen by Hebert Zamudio PA-C under the supervision of Doctor Luisito. <Virgilio Jorge - Last Filed: 11/03/17 17:38> Subjective: Agree with the above note. Patient has history of chronic neck and back pain most related to peripheral neuropathy/radiculopathy. She has urine retention and does not sense bladder filling. As per the nursing staff she had 1400 mL urine retention and was straight catheterized. - Physical Exam General: Alert, Oriented x3, Cooperative HEENT: Atraumatic, PERRLA, EOMI, Normocephalic Neck: Supple, No JVD, Negative Carotid Bruits Lungs: Clear to auscultation Cardiovascular: Regular rate, Regular Rhythm, Normal S1, Normal S2, No murmurs Abdomen: Bowel Sounds Present, Soft, Non Tender Extremities: No edema, Capillary Refill Less than 3 Seconds Skin: No rashes, Skin Tear, - - lacerations to the RLE with surrounding erythema Multiple bruises present Musculoskeletal: No Tenderness to Palpation of Joints or Extremities Neurological: Cranial nerves II-XII grossly intact, Neuro grossly intact Psych/Mental Status: Normal Affect, Appropriate Vital Signs Temp Pulse Resp BP Pulse Ox 98.4 F 75 18 122/68 H 100 11/03/17 16:30 11/03/17 16:30 11/03/17 16:30 11/03/17 16:30 11/03/17 16:30 Oxygen Delivery Method Room Air Weight: 174 lb 9.698 oz Body Mass Index (BMI) 29.9 Intake and Output for Last 24 Hours 11/01/17 11/02/17 11/03/17 23:59 23:59 23:59 Intake Total 2625 / 2625 Output Total 2800 / 2800 Balance -175 / -175 Laboratory Tests Past 24 Hrs 11/03/17 11/03/17 11/03/17 06:06 06:06 06:06 WBC 15.8 H RBC 2.74 L Hgb 9.0 L Hct 27.5 L MCV 100.4 H MCH 32.8 H MCHC 32.7 RDW 14.2 RDW Differential 49.8 H Plt Count 227 MPV 8.9 Immature Gran % (Auto) 0.500 Neut % (Auto) 81.3 H Lymph % (Auto) 11.0 L [place] % (Auto) 6.4 Eos % (Auto) 0.7 Baso % (Auto) 0.1 Absolute Neuts (auto) 12.8 H Absolute Lymphs (auto) 1.74 Total Counted Not Reportable Sodium 131 L Potassium 4.8 Chloride 100 Carbon Dioxide 23.0 Anion Gap 8 BUN 21 H Creatinine 1.62 H Estim Creat Clear Calc 29.90 Est GFR (MDRD) Af Amer 41 L Est GFR (MDRD) Non-Af 34 L BUN/Creatinine Ratio 13.0 Glucose 86 Calcium 8.4 L Iron 27 L TIBC 244 L Iron Saturation 11.1 L Ferritin 191 Vitamin B12 Folate 19.40 11/03/17 06:06 WBC RBC Hgb Hct MCV MCH MCHC RDW RDW Differential Plt Count MPV Immature Gran % (Auto) Neut % (Auto) Lymph % (Auto) Jewell % (Auto) Eos % (Auto) Baso % (Auto) Absolute Neuts (auto) Absolute Lymphs (auto) Total Counted Sodium Potassium Chloride Carbon Dioxide Anion Gap BUN Creatinine Estim Creat Clear Calc Est GFR (MDRD) Af Amer Est GFR (MDRD) Non-Af BUN/Creatinine Ratio Glucose Calcium Iron TIBC Iron Saturation Ferritin Vitamin B12 633 Folate Assessment/Plan This patient was seen in conjunction with Hebert SANDERS. I have independently interviewed and examined the patient and reviewed pertinent history, examination findings, laboratory and plan of management. I have reviewed the note and agree with the documented findings with the few additional points. In brief, patient is admitted for right lower extremity with multiple skin lacerations last years. Patient also has urinary retention and had 2-3 times straight catheterization and then finally Spence catheter ordered. Started on Flomax 0.4 mg p.o. twice daily. Urologist consult. Knees and bladder ultrasound ordered. I have discussed my assessment with Hebert SANDERS and orders have been reviewed. Code Visit Inpatient E&M: 14242 Subs Hosp L3
[2017-11-03] MEDS: Cefazolin 1 GM/50 ML BAG IV ×2 (14:02→22:16)
[2017-11-03] MEDS: Ondansetron 4 MG/2 ML Vial IV (15:25)
--- NOTE | 2017-11-03 15:56 | PCM.RX.CS ---
Consult Type of Consult: New start Suspected Infection: Skin/Soft tissue Prior Doses of Antibiotics Received/Current Regimen: Vancomycin HCl 1,250 mg/ (Sodium Chloride) 275 mls @ 183.333 mls/hr IV X1 ONE Stop: 11/03/17 15:29 Last Admin: 11/03/17 15:10 Dose: 183.333 mls/hr Labs: Sodium 131 mmol/L (136-145) L 11/03/17 06:06 Potassium 4.8 mmol/L (3.5-5.1) 11/03/17 06:06 Chloride 100 mmol/L (98-107) 11/03/17 06:06 Carbon Dioxide 23.0 mmol/L (21.0-32.0) 11/03/17 06:06 Anion Gap 8 (5-15) 11/03/17 06:06 BUN 21 mg/dL (7-18) H 11/03/17 06:06 Creatinine 1.62 mg/dL (0.55-1.02) H 11/03/17 06:06 Est GFR (MDRD) Af Amer 41 mL/min (>60) L 11/03/17 06:06 Est GFR (MDRD) Non-Af 34 mL/min (>60) L 11/03/17 06:06 BUN/Creatinine Ratio 13.0 RATIO (10-20) 11/03/17 06:06 Glucose 86 mg/dL (74-106) 11/03/17 06:06 Weight used for dosin.2 kg Estimated Creatinine Clearance: ~30 ml/min Goal Trough: 10-15 mcg/mL Pharmacy Plan for Drug Dosing: Will start 1250mg iv q24h based on Cr 1.6 and CrCl ~30. Patient borderline for q24h to q36h dosing. Have started q24h for now since Cr improved from 11.02.17. Will monitor renal fxn and get Vancomycin trough before 3rd dose on 11.05.17 Pharmacy Service will continue to monitor and adjust dosing as required. Follow-Up Labs: Trough Vancomycin Labs to be done on [date and time ordered]: 11.05.17 @[id number]
--- NOTE | 2017-11-03 17:36 | PCM.CONS.U ---
Problem List (1) Urinary retention Status: Acute Reason for Consult Date of Consultation: 11/03/17 Reason for Consultation: Urinary retention History of Present Illness: The patient is a 67 year old female who was having weakness in her legs and she fell she was also found to have severe constipation was disimpacted in the emergency room. She went into urinary retention was not able to urinate had to be straight cath and out the catheter is in place family also reports that she has a hard time emptying her bladder. She reports having a hard time knowing when to go to the bathroom. At this point we reviewed her medications and can start some Flomax 0.4 mg daily I would think in 48 hours we can remove the catheter and do another voiding trial. Past Medical History Past Medical History (Chronic Problems): Chronic Problems Coronary atherosclerosis of makah coronary artery (Chronic) Peripheral neuropathy (Chronic) Rheumatoid arthritis (Chronic) Traumatic open wound of lower leg (Chronic) Struck by falling object (Chronic) W20.8XXD Lumbar spinal stenosis (Chronic) Bilateral lower extremity weakness (Chronic) Ulcer of left lower extremity with fat layer exposed (Chronic) Risk for falls (Chronic) Back pain (Chronic) Lumbar radiculopathy (Chronic) Hyperlipidemia (Chronic) Lumbar disc disease (Chronic) Asthma (Chronic) Hypertension (Chronic) Foot drop, left (Chronic) PAD (peripheral artery disease) (Chronic) Allergies colesevelam HCl [From WelChol] Allergy (Verified 11/02/17 12:35) Unknown metolazone [From Zaroxolyn] Allergy (Verified 11/02/17 12:35) Unknown nitrofurantoin macrocrystalline [From Macrodantin] Allergy (Verified 11/02/17 12:35) Unknown Penicillins Allergy (Verified 11/03/17 12:13) Unknown PASSED OUT pravastatin sodium [From Pravachol] Allergy (Verified 11/02/17 12:35) Unknown Home Medications: Ambulatory Orders Medication Instructions Recorded Cyanocobalamin [Vitamin B12] 1,000 mcg IM Q30D 06/19/15 Montelukast [Singulair] 10 mg PO DAILY 06/19/15 Nitroglycerin [Nitrostat] 0.4 mg SUBLINGUAL Q5M PRN 06/19/15 Ranolazine [Ranexa] 1,000 mg PO BID 06/19/15 Temazepam [Restoril] 30 mg PO QHS PRN PRN 06/19/15 Albuterol Inhaler [Ventolin Hfa] 1 puff INHALATION Q4H PRN PRN 05/01/16 Bumetanide 1 mg PO DAILY 05/01/16 Ergocalciferol [Vitamin D] 50,000 unit PO SA 05/01/16 Omeprazole 40 mg PO BID 05/01/16 Acetaminophen with Codeine 1 each PO Q8H PRN PRN 11/02/17 [Tylenol with Codeine #3 Tablet] Atorvastatin Calcium [Lipitor] 80 mg PO QHS 11/02/17 Furosemide [Furosemide] 40 mg PO BID 11/02/17 Gabapentin [Neurontin] 400 mg PO BID 11/02/17 Levofloxacin [Levaquin] 750 mg PO DAILY 11/02/17 Prednisone [Prednisone] 5 mg PO DAILY 11/02/17 Spironolactone 25 mg PO BID 11/02/17 Surgical History: noncontributory, - - The patient has had coronary stents placed in the past, as well as femoral stents in her lower extremities bilaterally by Dr. Alden Hernández. She has undergone lumbar fusion at L5. She is undergone right carpal tunnel release. 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 Paternal History Items: - - The patient's father at age of 82 of congestive heart failure. Review of Systems Constitutional: Denies: Chills, Fever, Weight Change HEENT: Denies: Head Aches, Sinus Congestion, Sinus Drainage Cardiovascular: Denies: Chest Pain, Palpitations Respiratory: Denies: Cough, Shortness of breath at rest, Sputum production Gastrointestinal: Denies: Abdominal Pain, Nausea, Vomiting Genitourinary: Reports: Retention. Denies: Dysuria Musculoskeletal: Denies: Joint Pain, Joint Tenderness Skin: Denies: Rash, Wounds Neurological: Denies: Numbness, Tingling, Focal weakness Psychiatric: Denies: Anxiety, Depression, Homicidal Ideations, Suicidal Ideations Hematologic/ Lymphatic: Denies: Easy Bruising, Easy Bleeding Physical Exam - Physical Exam Vital Signs Temp 98.4 F 11/03/17 16:30 Pulse 75 11/03/17 16:30 Resp 18 11/03/17 16:30 BP 122/68 H 11/03/17 16:30 Pulse Ox 100 11/03/17 16:30 Intake & Output 11/01/17 11/02/17 11/03/17 23:59 23:59 23:59 Intake Total 2625 / 2625 Output Total 2800 / 2800 Balance -175 / -175 Weight: 79.2 kg Intake: Oral 1260 / 1260 IV fluid/meds 1365 / 1365 Output: Urine 2800 / 2800 General: Alert, Oriented x3 HEENT: Atraumatic Oral: Moist Mucosa Neck: Supple Lungs: Normal air movement Cardiovascular: Regular rate, Regular Rhythm Abdomen: Bowel Sounds Present, Soft, Obese Rectal: Exam deferred Laboratory Tests Past 24 Hrs 11/03/17 11/03/17 11/03/17 06:06 06:06 06:06 WBC 15.8 H RBC 2.74 L Hgb 9.0 L Hct 27.5 L MCV 100.4 H MCH 32.8 H MCHC 32.7 RDW 14.2 RDW Differential 49.8 H Plt Count 227 MPV 8.9 Immature Gran % (Auto) 0.500 Neut % (Auto) 81.3 H Lymph % (Auto) 11.0 L [place] % (Auto) 6.4 Eos % (Auto) 0.7 Baso % (Auto) 0.1 Absolute Neuts (auto) 12.8 H Absolute Lymphs (auto) 1.74 Total Counted Not Reportable Sodium 131 L Potassium 4.8 Chloride 100 Carbon Dioxide 23.0 Anion Gap 8 BUN 21 H Creatinine 1.62 H Estim Creat Clear Calc 29.90 Est GFR (MDRD) Af Amer 41 L Est GFR (MDRD) Non-Af 34 L BUN/Creatinine Ratio 13.0 Glucose 86 Calcium 8.4 L Iron 27 L TIBC 244 L Iron Saturation 11.1 L Ferritin 191 Vitamin B12 Folate 19.40 11/03/17 06:06 WBC RBC Hgb Hct MCV MCH MCHC RDW RDW Differential Plt Count MPV Immature Gran % (Auto) Neut % (Auto) Lymph % (Auto) [place] % (Auto) Eos % (Auto) Baso % (Auto) Absolute Neuts (auto) Absolute Lymphs (auto) Total Counted Sodium Potassium Chloride Carbon Dioxide Anion Gap BUN Creatinine Estim Creat Clear Calc Est GFR (MDRD) Af Amer Est GFR (MDRD) Non-Af BUN/Creatinine Ratio Glucose Calcium Iron TIBC Iron Saturation Ferritin Vitamin B12 633 Folate Assessment/Plan Active and Suspected Problems Cellulitis (Acute) ANDRIY (acute kidney injury) (Acute) Lower extremity weakness (Acute) Urinary retention (Acute) 67-year-old female with onset of urinary retention multiple factors. Will start on Flomax 0.4 mg daily review her other medications would recommend bowel regimen to move her bowels and have her more regular. I can take out the catheter in 48 hours for another voiding trial and intermittent straight catheterization after that.
[2017-11-03] MEDS: Tamsulosin HCl 0.4 MG Capsule PO (18:23)
[2017-11-03] MEDS: Atorvastatin Calcium 80 MG Tablet PO (22:16)
[2017-11-04] VITALS (8 sets, daily range): BP systolic 95–124; BP diastolic 63–70; PULSE 73–84; RESP 16–18; TEMP 36.2–36.9; O2SAT 94–97
[2017-11-04 00:50] LABS: Staph aureus DNA By PCR POSITIVE (Negative)
[2017-11-04 00:51] LABS: M R Staph aureus DNA By PCR POSITIVE (Negative); Probe Check PASS
[2017-11-04] MEDS: 0.9% Normal Saline 1,000 ML 125 ML IV ×2 (03:58→14:22)
--- NOTE | 2017-11-04 05:55 | US_ITS ---
STUDY: RENAL ULTRASOUND - COMPLETE REASON FOR EXAM: Female, 67 years old. Acute kidney injury with urinary retention. TECHNIQUE: Ultrasound evaluation of the kidneys was performed with real-time and static barrett-scale imaging. COMPARISON: None. FINDINGS: RIGHT KIDNEY: with mild renal atrophy. The right kidney measures 8.6 x 4.1 x 4.9 cm. There is a normal cortex of the right kidney. The renal cortex measures 1.1 cm. There is no right renal mass or cyst. There are no right renal calculi. There is no right hydronephrosis. LEFT KIDNEY: with mild renal atrophy. The left kidney measures 7.9 x 3.9 x 4.6 cm. There is a normal cortex of the left kidney. The renal cortex measures 0.8 cm. There is no left renal mass or cyst. There are no left renal calculi. There is no left hydronephrosis. BLADDER: The distended urinary bladder has a volume of 103 ml. A Spence catheter seen within the bladder. There is a normal wall thickness of the distended urinary bladder. There is no demonstrated mass within the urinary bladder. There are no demonstrated bladder calculi. US/Kidney and Bladder IMPRESSION: Bilateral renal atrophy. Spence catheter seen within a minimally filled urinary bladder. Electronically Signed: John Stanton MD at 17:28 EDT , Service support ,
[2017-11-04] MEDS: Ipratropium/Albuterol Sulfate 3 ML AMPUL.NEB INHALATION ×3 (07:10→19:10)
[2017-11-04 07:15] LABS: Absolute Lymphocyte Count 1.55 X10^3/ul (0.83-4.51); Absolute Neutrophil Count 8.5 X10^3/uL (2.0-7.7); Basophil# 0.02 X10^3/uL; Basophil% 0.2 % (0-1); Eosinophil# 0.14 X10^3/uL; Eosinophils% 1.3 % (0-5); Hematocrit 26.8 % (37-47); Hemoglobin 8.6 g/dl (12.0-15.0); Lymphocyte # 1.55 X10^3/ul (4.0); Mean Corp Hgb Conc 32.1 g/gl (32-36); Mean Corpuscular Hgb 32.3 pg (27.0-32.0); Mean Corpuscular Volume 100.8 fL (81-99); Mean Platelet Vol. 8.7 fl (6.2-12.0); Monocyte# 0.76 X10^3/uL; Monocyte% 6.9 % (0-10); Neutrophil # 8.51 X10^3/uL (2.7-7.7); Neutrophil % 76.7 % (47-70); Platelet Count 203 K/mm3 (150-450); RBC Distribution Width SD 54.6 fl (35.1-43.9); Red Blood Count 2.66 M/mm3 (4.2-5.4); White Blood Count 11.1 K/mm3 (4.4-11.0)
[2017-11-04 07:16] LABS: Anion Gap 7 (5-15); BUN 13 mg/dL (7-18); BUN/Creat Ratio 10.1 RATIO (10-20); Calcium,Total 8.5 mg/dL (8.5-10.1); Chloride 105 mmol/L (98-107); Creatinine, Serum 1.29 mg/dL (0.55-1.02); EST Glomerular Filtration Rate 44 mL/min (>60); Est Glom Filt Rate - Afr Amer 53 mL/min (>60); Estimated Creatinine Clearance 37.54 ml/min; Glucose 89 mg/dL (74-106); Potassium 4.6 mmol/L (3.5-5.1); Sodium Level 135 mmol/L (136-145)
[2017-11-04 07:44] LABS: POSITIVE COUNT NO; POSITIVE DIFFERENTIAL NO; POSITIVE MORPHOLOGY NO
[2017-11-04] MEDS: Tamsulosin HCl 0.4 MG Capsule PO ×2 (08:26→17:43)
[2017-11-04] MEDS: Aspirin E.C. 81 MG Tablet PO (08:26)
[2017-11-04] MEDS: HYDROcodone Bitartrate/Apap 5/325 Tablet PO ×3 (09:39→22:29)
[2017-11-04] MEDS: Cefazolin 1 GM/50 ML BAG IV ×2 (09:39→22:28)
[2017-11-04] MEDS: Pantoprazole Sodium 40 MG Tablet PO ×2 (09:40→22:29)
[2017-11-04] MEDS: Psyllium 1 PACKET PO (09:40)
[2017-11-04] MEDS: Ranolazine 500 MG Tablet 1000 MG PO ×2 (09:40→22:29)
[2017-11-04] MEDS: Senna/Docusate Sodium 1 Tablet 2 TABLET PO (09:43)
[2017-11-04] MEDS: Montelukast 10 MG Tablet PO (09:43)
[2017-11-04] MEDS: Polyethylene Glycol 3350 17 GM PACKET PO (09:44)
--- NOTE | 2017-11-04 11:27 | CASEMGMT ---
Addendum entered by Irais Marie 11/04/17 15:33: Ernestine from [facility] states they may be able to take pt depending on what IV antibiotics are needed. Also, pt gets a B12 shot, Ernestine asked about this. SW Maddy Mendes asked pt about the B12 shot, pt states she will get it filled at [facility], pt gets the shot once per month. Maddy also let pt know that [facility] may be able to take pt, will depend on what antibiotics are needed at discharge. SW spoke w/W again, let Breanna know that pt gets the shot once per month and plans to get it filled at [facility]. SW will continue to follow for discharge to SNF when ready, IV antibiotics pending. SVEN Haji, [employer] Original Note: Addendum entered by Irais Marie 11/04/17 12:17: SW spoke w/physician, it has not yet been decided what antibiotics pt will need at discharge, the infectious disease doctor is not consulted. Pt is not ready for discharge. SW called [facility], message left for Ernestine letting her know that this SW will let her know about the antibiotics once it is known what pt needs. SW will continue to follow. SVEN Haji, [employer] Original Note: SW met w/pt and in room in regard to prior level of function and discharge plan. Pt confirms prior to admission, she and are staying w/granddaughter in a one story home. Pt's has been assisting pt with most ADL's, including bathing, dressing, cooking, and cleaning. also drives, pt organizes her own medication. Pt was able to ambulate w/a walker prior to this hospitalization, pt states her legs keep going out from under her however. Pt also has a wheelchair, hand held shower and grab bars. SW spoke w/pt and about discharge plan, they are agreeable to SNF for short term rehab. SW reviewed Medicare guidelines for SNF coverage, explained that pt will be covered by Medicare initially. Pt and state understanding. SW inquired where they may want pt to go. [facility] is their first choice, then any other facility in [place], pt would prefer a private room if possible. SW explained will check w/[facility], and if they have no beds, they are agreeable to referral to [facility] or [facility]. SW called [facility], they have no beds. SW called [facility], message left, referral faxed. SW checked w/physician, pt will not need IV antibiotics at discharge. MAX Mendes let pt and know there were no beds at [facility] and a referral was faxed to [facility], they are agreeable to this. SW will continue to follow. SVEN Haji, [employer]PER[employer]
--- NOTE | 2017-11-04 17:01 | PCM.PN.HOSP ---
Patient Problems: Active and Suspected Problems Cellulitis (Acute) ANDRIY (acute kidney injury) (Acute) Lower extremity weakness (Acute) Urinary retention (Acute) Subjective: Patient was seen by the urologist. Patient has history of chronic constipation. Patient also diagnosed adrenal insufficiency about 4- 5 years ago but I think she was having symptoms of generalized weakness, fatigue for last 10 years. Vitals/I&O's: Vital Signs Temp Pulse Resp BP Pulse Ox 98.0 F 81 18 116/66 97 11/04/17 16:03 11/04/17 16:03 11/04/17 16:03 11/04/17 16:03 11/04/17 16:03 Oxygen Delivery Method Room Air Weight: 174 lb 9.698 oz Body Mass Index (BMI) 29.9 Intake and Output for Last 24 Hours 11/02/17 11/03/17 11/04/17 23:59 23:59 23:59 Intake Total 4630 / 4630 2036 / 2036 Output Total 4350 / 4350 1325 / 1325 Balance 280 / 280 711 / 711 General: Alert, Oriented x3, Cooperative HEENT: Atraumatic, PERRLA, EOMI, Normocephalic Neck: Supple, No JVD, Negative Carotid Bruits Lungs: Normal air movement, No rhonchi, No wheeze, No rales, Diminished Cardiovascular: Regular rate, Regular Rhythm, Normal S1, Normal S2, No murmurs Abdomen: Bowel Sounds Present, Soft, Non Tender, Non-Distended Extremities: No edema, Capillary Refill Less than 3 Seconds Skin: Ulcer/ Wound, Skin Tear, - - Ecchymosis and bruises present all over the skin. Multiple superficial wound and skin tears/lacerations to the of both lower extremity from knee downward. Musculoskeletal: No Tenderness to Palpation of Joints or Extremities Neurological: Cranial nerves II-XII grossly intact Psych/Mental Status: Normal Affect, Appropriate Microbiology Past 72 Hours 11/03/17 12:30 Wound - Knee Gram Stain - Final 11/03/17 12:30 Wound - Knee Wound Culture - Preliminary Staphylococcus aureus 11/03/17 08:00 Urine, Catheterized Urine Culture - Preliminary Culture exhibits no growth. Laboratory Results 11/03/17 12:30: S.aureus Protein A PCR POSITIVE H, MRSA (PCR) POSITIVE H 11/04/17 06:43: WBC 11.1 H, RBC 2.66 L, Hgb 8.6 L, Hct 26.8 L, MCV 100.8 H, MCH 32.3 H, MCHC 32.1, RDW 15.0 H, RDW Differential 54.6 H, Plt Count 203, MPV 8.7, Immature Gran % (Auto) 0.900, Neut % (Auto) 76.7 H, Lymph % (Auto) 14.0 L, [place] % (Auto) 6.9, Eos % (Auto) 1.3, Baso % (Auto) 0.2, Absolute Neuts (auto) 8.5 H, Absolute Lymphs (auto) 1.55, Total Counted Not Reportable 11/04/17 06:43: Sodium 135 L, Potassium 4.6, Chloride 105, Carbon Dioxide 23.0, Anion Gap 7, BUN 13, Creatinine 1.29 H, Estim Creat Clear Calc 37.54, Est GFR (MDRD) Af Amer 53 L, Est GFR (MDRD) Non-Af 44 L, BUN/Creatinine Ratio 10.1, Glucose 89, Calcium 8.5 Current Medications Hydrocodone Bitart/Acetaminophen ([place] 5mg-325mg) 1 - 2 tablet PO Q6H PRN PRN PRN Reason: Moderate-severe pain Last Admin: 11/04/17 15:54 Dose: 2 tablet Al Hydroxide/Mg Hydroxide (Mylanta Ii) 30 ml PO Q6H PRN PRN PRN Reason: Gastric burning Albuterol Sulfate (Ventolin Aerosols) 2.5 mg INHALATION Q2H PRN PRN PRN Reason: dyspnea, wheezing Albuterol/Ipratropium (Duoneb) 3 ml INHALATION Q6HWA.RT [facility] Last Admin: 11/04/17 13:46 Dose: 3 ml Aspirin (Ecotrin) 81 mg PO DAILYCM [facility] Last Admin: 11/04/17 08:26 Dose: 81 mg Atorvastatin Calcium (Lipitor) 80 mg PO QHS [facility] Last Admin: 11/03/17 22:16 Dose: 80 mg Heparin Sodium (Porcine) (Heparin Na) 5,000 unit SC BID [facility] Last Admin: 11/04/17 09:39 Dose: 5,000 units Hydralazine HCl (Apresoline) 10 mg IV Q4H PRN PRN PRN Reason: SBP > 160 Sodium Chloride () 1,000 mls @ 125 mls/hr IV .Q8H [facility] Last Admin: 11/04/17 14:22 Dose: 125 mls/hr Sodium Chloride () 250 mls @ 15 mls/hr IV .[id number] PRN PRN Reason: SALINE FLUSH Cefazolin Sodium () 1 gm in 50 mls @ 150 mls/hr IV Q12 [facility] Last Admin: 11/04/17 09:39 Dose: 150 mls/hr Vancomycin HCl 1,250 mg/ (Sodium Chloride) 275 mls @ 183.333 mls/hr IV Q24H [facility] Last Admin: 11/04/17 15:54 Dose: 183.333 mls/hr Magnesium Hydroxide (Milk Of Magnesia) 30 ml PO DAILY PRN PRN PRN Reason: Constipation Montelukast Sodium (Singulair) 10 mg PO DAILY [facility] Last Admin: 11/04/17 09:43 Dose: 10 mg Nutritional Formula (Lactose Free) (Ensure Enlive) 120 ml PO 4X/DAY [facility] Last Admin: 11/04/17 14:21 Dose: 120 ml Ondansetron HCl (Zofran) 4 mg IV Q8H PRN PRN PRN Reason: NAUSEA Last Admin: 11/03/17 15:25 Dose: 4 mg Pantoprazole Sodium (Protonix) 40 mg PO BID [facility] Last Admin: 11/04/17 09:40 Dose: 40 mg Polyethylene Glycol (Miralax) 17 gm PO DAILY [facility] Last Admin: 11/04/17 09:44 Dose: 17 gm [facility]) [facility] Last Admin: 11/04/17 08:26 Dose: 5 mg Promethazine HCl (Phenergan (Ll)) 12.5 mg IV Q6H PRN PRN PRN Reason: NAUSEA/VOMITING Psyllium Hydrophilic Mucilloid (Metamucil) 1 packet PO DAILY [facility] Last Admin: 11/04/17 09:40 Dose: 1 packet Ranolazine (Ranexa) 1,000 mg PO BID [facility] Last Admin: 11/04/17 09:40 Dose: 1,000 mg Senna/Docusate Sodium (Senokot-S, Barbara-Colace) 2 tablet PO DAILY [facility] Last Admin: 11/04/17 09:43 Dose: 2 tablet Sodium Chloride () 5 - 30 ml IV UD PRN PRN Reason: SALINE FLUSH Last Admin: 11/03/17 15:25 Dose: 10 ml Tamsulosin HCl (Flomax) 0.4 mg PO BID@0830,1730 [facility] Last Admin: 11/04/17 08:26 Dose: 0.4 mg Temazepam (Restoril) 30 mg PO QHS PRN PRN PRN Reason: INSOMNIA Assessment/Plan Active and Suspected Problems Cellulitis (Acute) ANDRIY (acute kidney injury) (Acute) Lower extremity weakness (Acute) Urinary retention (Acute) This is a 67-year-old female with history of chronic abdominal associated probably from 5-10 years is being admitted for right lower extremity cellulitis with multiple skin lacerations/easy tear for last 2-3 years years. The patient has history of MRSA about a year ago. Patient also has urinary retention and had 2-3 times straight catheterization and then finally Spence catheter ordered. Started on Flomax 0.4 mg p.o. twice daily. Urologist consult. Knees and bladder ultrasound ordered. 1. RLE cellulitis from fall with bilateral lower leg multiple skin wounds and skin tears: The patient was prescribed levaquin as outpatient but only took one dose. Started on rocephin. Discussed with the wound nurseLeiyd and wound picture reviewed. With Hx of MRSA and wound with yellow discharge - will treat for MRSA. The patient is on IV antibiotic vancomycin. Wound culture preliminary shows a staph aureus, MRSA. ID consult. Discussed with Dr. Ortiz. Blood cultures are pending. Urine negative. Afebril. Leukocytosis improving. She is immunocompromised 2/2 chronic prednisone therapy for RA and chronic adrenal insufficiency. She also has a hx of PAD which will complicate wound healing. Most probably, due to immunocompromise host, she is not showing host reaction with fever, tachycardia or SIRS criteria. 2. ANDRIY - with Hyponatremia with recurrent urinary retention probably hypovolemic, prerenal and postrenal renal failure: on IV NaCl. I am concerned that she has both bumex and lasix listed on her home meds this could explain her hypovolemia and ANDRIY. These are being held. suspect dehydration. Kidney function improving. Avoid nephrotoxins. Kidney and bladder ultrasound ordered. Patient seen by urologist, Dr. Persaud and she is on Flomax. Advised Spence discontinuation after 48 hours and spontaneous urine trial. 3. Hyperkalemia resolved 4. Hx asthma - stable, duonebs, albuterol, singulair 5. Macrocytic anemia - T/S. Check Iron panel, B12, folate. 6. RA - on chronic prednisone 7. Debility 2/2 - Recent falls. Severe lumbar and cervical spine disease and RA - PTOT consults. 8. Hx CAD - on statin, ranexa 9. HTN - stable 10. Obesity - dietary consult. DVT pps: SCDs, severe anemia - no chemoppx DC planning: PTOT Microbiology Past 72 Hours 11/03/17 12:30 Wound - Knee Gram Stain - Final 11/03/17 12:30 Wound - Knee Wound Culture - Preliminary Staphylococcus aureus 11/03/17 08:00 Urine, Catheterized Urine Culture - Preliminary Culture exhibits no growth. Laboratory Results 11/03/17 12:30: S.aureus Protein A PCR POSITIVE H, MRSA (PCR) POSITIVE H 11/04/17 06:43: WBC 11.1 H, RBC 2.66 L, Hgb 8.6 L, Hct 26.8 L, MCV 100.8 H, MCH 32.3 H, MCHC 32.1, RDW 15.0 H, RDW Differential 54.6 H, Plt Count 203, MPV 8.7, Immature Gran % (Auto) 0.900, Neut % (Auto) 76.7 H, Lymph % (Auto) 14.0 L, [place] % (Auto) 6.9, Eos % (Auto) 1.3, Baso % (Auto) 0.2, Absolute Neuts (auto) 8.5 H, Absolute Lymphs (auto) 1.55, Total Counted Not Reportable 11/04/17 06:43: Sodium 135 L, Potassium 4.6, Chloride 105, Carbon Dioxide 23.0, Anion Gap 7, BUN 13, Creatinine 1.29 H, Estim Creat Clear Calc 37.54, Est GFR (MDRD) Af Amer 53 L, Est GFR (MDRD) Non-Af 44 L, BUN/Creatinine Ratio 10.1, Glucose 89, Calcium 8.5 Code Visit Inpatient E&M: 60046 Subs Hosp L3
--- NOTE | 2017-11-04 17:15 | PN_ITS ---
Patient Problems: Active and Suspected Problems Cellulitis (Acute) ANDRIY (acute kidney injury) (Acute) Lower extremity weakness (Acute) Urinary retention (Acute) Subjective: Patient was seen by the urologist. Patient has history of chronic constipation. Patient also diagnosed adrenal insufficiency about 4- 5 years ago but I think she was having symptoms of generalized weakness, fatigue for last 10 years. Vitals/I&O's: Vital Signs Temp Pulse Resp BP Pulse Ox 98.0 F 81 18 116/66 97 11/04/17 16:03 11/04/17 16:03 11/04/17 16:03 11/04/17 16:03 11/04/17 16:03 Oxygen Delivery Method Room Air Weight: 174 lb 9.698 oz Body Mass Index (BMI) 29.9 Intake and Output for Last 24 Hours 11/02/17 11/03/17 11/04/17 23:59 23:59 23:59 Intake Total 4630 / 4630 2036 / 2036 Output Total 4350 / 4350 1325 / 1325 Balance 280 / 280 711 / 711 General: Alert, Oriented x3, Cooperative HEENT: Atraumatic, PERRLA, EOMI, Normocephalic Neck: Supple, No JVD, Negative Carotid Bruits Lungs: Normal air movement, No rhonchi, No wheeze, No rales, Diminished Cardiovascular: Regular rate, Regular Rhythm, Normal S1, Normal S2, No murmurs Abdomen: Bowel Sounds Present, Soft, Non Tender, Non-Distended Extremities: No edema, Capillary Refill Less than 3 Seconds Skin: Ulcer/ Wound, Skin Tear, - - Ecchymosis and bruises present all over the skin. Multiple superficial wound and skin tears/lacerations to the of both lower extremity from knee downward. Musculoskeletal: No Tenderness to Palpation of Joints or Extremities Neurological: Cranial nerves II-XII grossly intact Psych/Mental Status: Normal Affect, Appropriate Microbiology Past 72 Hours 11/03/17 12:30 Wound - Knee Gram Stain - Final 11/03/17 12:30 Wound - Knee Wound Culture - Preliminary Staphylococcus aureus 11/03/17 08:00 Urine, Catheterized Urine Culture - Preliminary Culture exhibits no growth. Laboratory Results 11/03/17 12:30: S.aureus Protein A PCR POSITIVE H, MRSA (PCR) POSITIVE H 11/04/17 06:43: WBC 11.1 H, RBC 2.66 L, Hgb 8.6 L, Hct 26.8 L, MCV 100.8 H, MCH 32.3 H, MCHC 32.1, RDW 15.0 H, RDW Differential 54.6 H, Plt Count 203, MPV 8.7, Immature Gran % (Auto) 0.900, Neut % (Auto) 76.7 H, Lymph % (Auto) 14.0 L, [place] % (Auto) 6.9, Eos % (Auto) 1.3, Baso % (Auto) 0.2, Absolute Neuts (auto) 8.5 H, Absolute Lymphs (auto) 1.55, Total Counted Not Reportable 11/04/17 06:43: Sodium 135 L, Potassium 4.6, Chloride 105, Carbon Dioxide 23.0, Anion Gap 7, BUN 13, Creatinine 1.29 H, Estim Creat Clear Calc 37.54, Est GFR ( MDRD) Af Amer 53 L, Est GFR (MDRD) Non-Af 44 L, BUN/Creatinine Ratio 10.1, Glucose 89, Calcium 8.5 Current Medications Hydrocodone Bitart/Acetaminophen ([place] 5mg-325mg) 1 - 2 tablet PO Q6H PRN PRN PRN Reason: Moderate-severe pain Last Admin: 11/04/17 15:54 Dose: 2 tablet Al Hydroxide/Mg Hydroxide (Mylanta Ii) 30 ml PO Q6H PRN PRN PRN Reason: Gastric burning Albuterol Sulfate (Ventolin Aerosols) 2.5 mg INHALATION Q2H PRN PRN PRN Reason: dyspnea, wheezing Albuterol/Ipratropium (Duoneb) 3 ml INHALATION Q6HWA.RT [facility] Last Admin: 11/04/17 13:46 Dose: 3 ml Aspirin (Ecotrin) 81 mg PO DAILYCM [facility] Last Admin: 11/04/17 08:26 Dose: 81 mg Atorvastatin Calcium (Lipitor) 80 mg PO QHS [facility] Last Admin: 11/03/17 22:16 Dose: 80 mg Heparin Sodium (Porcine) (Heparin Na) 5,000 unit SC BID [facility] Last Admin: 11/04/17 09:39 Dose: 5,000 units Hydralazine HCl (Apresoline) 10 mg IV Q4H PRN PRN PRN Reason: SBP > 160 Sodium Chloride () 1,000 mls @ 125 mls/hr IV .Q8H [facility] Last Admin: 11/04/17 14:22 Dose: 125 mls/hr Sodium Chloride () 250 mls @ 15 mls/hr IV .[id number] PRN PRN Reason: SALINE FLUSH Cefazolin Sodium () 1 gm in 50 mls @ 150 mls/hr IV Q12 [facility] Last Admin: 11/04/17 09:39 Dose: 150 mls/hr Vancomycin HCl 1,250 mg/ (Sodium Chloride) 275 mls @ 183.333 mls/hr IV Q24H [facility] Last Admin: 11/04/17 15:54 Dose: 183.333 mls/hr Magnesium Hydroxide (Milk Of Magnesia) 30 ml PO DAILY PRN PRN PRN Reason: Constipation Montelukast Sodium (Singulair) 10 mg PO DAILY [facility] Last Admin: 11/04/17 09:43 Dose: 10 mg Nutritional Formula (Lactose Free) (Ensure Enlive) 120 ml PO 4X/DAY [facility] Last Admin: 11/04/17 14:21 Dose: 120 ml Ondansetron HCl (Zofran) 4 mg IV Q8H PRN PRN PRN Reason: NAUSEA Last Admin: 11/03/17 15:25 Dose: 4 mg Pantoprazole Sodium (Protonix) 40 mg PO BID [facility] Last Admin: 11/04/17 09:40 Dose: 40 mg Polyethylene Glycol (Miralax) 17 gm PO DAILY [facility] Last Admin: 11/04/17 09:44 Dose: 17 gm [facility] Admin: 11/04/17 08:26 Dose: 5 mg Promethazine HCl (Phenergan (Ll)) 12.5 mg IV Q6H PRN PRN PRN Reason: NAUSEA/VOMITING Psyllium Hydrophilic Mucilloid (Metamucil) 1 packet PO DAILY [facility] Last Admin: 11/04/17 09:40 Dose: 1 packet Ranolazine (Ranexa) 1,000 mg PO BID [facility] Last Admin: 11/04/17 09:40 Dose: 1,000 mg Senna/Docusate Sodium (Senokot-S, Barbara-Colace) 2 tablet PO DAILY [facility] Last Admin: 11/04/17 09:43 Dose: 2 tablet Sodium Chloride () 5 - 30 ml IV UD PRN PRN Reason: SALINE FLUSH Last Admin: 11/03/17 15:25 Dose: 10 ml Tamsulosin HCl (Flomax) 0.4 mg PO BID@0830,1730 [facility] Last Admin: 11/04/17 08:26 Dose: 0.4 mg Temazepam (Restoril) 30 mg PO QHS PRN PRN PRN Reason: INSOMNIA Assessment/Plan Active and Suspected Problems Cellulitis (Acute) ANDRIY (acute kidney injury) (Acute) Lower extremity weakness (Acute) Urinary retention (Acute) This is a 67-year-old female with history of chronic abdominal associated probably from 5-10 years is being admitted for right lower extremity cellulitis with multiple skin lacerations/easy tear for last 2-3 years years. The patient has history of MRSA about a year ago. Patient also has urinary retention and had 2-3 times straight catheterization and then finally Spence catheter ordered. Started on Flomax 0.4 mg p.o. twice daily. Urologist consult. Knees and bladder ultrasound ordered. 1. RLE cellulitis from fall with bilateral lower leg multiple skin wounds and skin tears: The patient was prescribed levaquin as outpatient but only took one dose. Started on rocephin. Discussed with the wound nurseLeidy and wound picture reviewed. With Hx of MRSA and wound with yellow discharge - will treat for MRSA. The patient is on IV antibiotic vancomycin. Wound culture preliminary shows a staph aureus, MRSA. ID consult. Discussed with Dr. Ortiz. Blood cultures are pending. Urine negative. Afebril. Leukocytosis improving. She is immunocompromised 2/2 chronic prednisone therapy for RA and chronic adrenal insufficiency. She also has a hx of PAD which will complicate wound healing. Most probably, due to immunocompromise host, she is not showing host reaction with fever, tachycardia or SIRS criteria. 2. ANDRIY - with Hyponatremia with recurrent urinary retention probably hypovolemic , prerenal and postrenal renal failure: on IV NaCl. I am concerned that she has both bumex and lasix listed on her home meds this could explain her hypovolemia and ANDRIY. These are being held. suspect dehydration. Kidney function improving. Avoid nephrotoxins. Kidney and bladder ultrasound ordered. Patient seen by urologist, Dr. Persaud and she is on Flomax. Advised Spence discontinuation after 48 hours and spontaneous urine trial. 3. Hyperkalemia resolved 4. Hx asthma - stable, duonebs, albuterol, singulair 5. Macrocytic anemia - T/S. Check Iron panel, B12, folate. 6. RA - on chronic prednisone 7. Debility 2/2 - Recent falls. Severe lumbar and cervical spine disease and RA - PTOT consults. 8. Hx CAD - on statin, ranexa 9. HTN - stable 10. Obesity - dietary consult. DVT pps: SCDs, severe anemia - no chemoppx DC planning: PTOT Microbiology Past 72 Hours 11/03/17 12:30 Wound - Knee Gram Stain - Final 11/03/17 12:30 Wound - Knee Wound Culture - Preliminary Staphylococcus aureus 11/03/17 08:00 Urine, Catheterized Urine Culture - Preliminary Culture exhibits no growth. Laboratory Results 11/03/17 12:30: S.aureus Protein A PCR POSITIVE H, MRSA (PCR) POSITIVE H 11/04/17 06:43: WBC 11.1 H, RBC 2.66 L, Hgb 8.6 L, Hct 26.8 L, MCV 100.8 H, MCH 32.3 H, MCHC 32.1, RDW 15.0 H, RDW Differential 54.6 H, Plt Count 203, MPV 8.7, Immature Gran % (Auto) 0.900, Neut % (Auto) 76.7 H, Lymph % (Auto) 14.0 L, [place] % (Auto) 6.9, Eos % (Auto) 1.3, Baso % (Auto) 0.2, Absolute Neuts (auto) 8.5 H, Absolute Lymphs (auto) 1.55, Total Counted Not Reportable 11/04/17 06:43: Sodium 135 L, Potassium 4.6, Chloride 105, Carbon Dioxide 23.0, Anion Gap 7, BUN 13, Creatinine 1.29 H, Estim Creat Clear Calc 37.54, Est GFR ( MDRD) Af Amer 53 L, Est GFR (MDRD) Non-Af 44 L, BUN/Creatinine Ratio 10.1, Glucose 89, Calcium 8.5 Code Visit Inpatient E&M: 67649 Subs Hosp L3
[2017-11-04] MEDS: Atorvastatin Calcium 80 MG Tablet PO (22:28)
[2017-11-05 03:22] VITALS: BP 106/64; PULSE 75; RESP 16; TEMP 36.1; O2SAT 95
[2017-11-05] MEDS: 0.9% Normal Saline 1,000 ML 125 ML IV ×2 (03:30→08:32)
[2017-11-05] MEDS: Ipratropium/Albuterol Sulfate 3 ML AMPUL.NEB INHALATION ×2 (07:34→13:38)
[2017-11-05 07:35] VITALS: PULSE 86; RESP 16; O2SAT 94
[2017-11-05 08:22] VITALS: BP 120/51; PULSE 79; RESP 16; TEMP 36.6; O2SAT 98
[2017-11-05] MEDS: Aspirin E.C. 81 MG Tablet PO (08:31)
[2017-11-05] MEDS: Polyethylene Glycol 3350 17 GM PACKET PO (08:31)
[2017-11-05] MEDS: Ranolazine 500 MG Tablet 1000 MG PO (08:32)
[2017-11-05] MEDS: Tamsulosin HCl 0.4 MG Capsule PO (08:32)
[2017-11-05] MEDS: Montelukast 10 MG Tablet PO (08:32)
[2017-11-05] MEDS: Senna/Docusate Sodium 1 Tablet 2 TABLET PO (08:32)
[2017-11-05] MEDS: Pantoprazole Sodium 40 MG Tablet PO (08:32)
[2017-11-05] MEDS: Cefazolin 1 GM/50 ML BAG IV (10:35)
[2017-11-05] MEDS: Psyllium 1 PACKET PO (10:36)
[2017-11-05 11:00] LABS: Absolute Lymphocyte Count 1.35 X10^3/ul (0.83-4.51); Absolute Neutrophil Count 8.7 X10^3/uL (2.0-7.7); Basophil# 0.04 X10^3/uL; Basophil% 0.4 % (0-1); Eosinophil# 0.26 X10^3/uL; Eosinophils% 2.3 % (0-5); Hematocrit 26.6 % (37-47); Hemoglobin 8.5 g/dl (12.0-15.0); Lymphocyte # 1.35 X10^3/ul (4.0); Lymphocyte % 12.1 % (19-41); Mean Corpuscular Hgb 32.7 pg (27.0-32.0); Mean Corpuscular Volume 102.3 fL (81-99); Mean Platelet Vol. 8.8 fl (6.2-12.0); Monocyte# 0.63 X10^3/uL; Monocyte% 5.6 % (0-10); Neutrophil # 8.72 X10^3/uL (2.7-7.7); Neutrophil % 78.2 % (47-70); POSITIVE COUNT NO; POSITIVE DIFFERENTIAL NO; POSITIVE MORPHOLOGY NO; Platelet Count 226 K/mm3 (150-450); RBC Distribution Width CV 14.6 % (11.6-14.6); RBC Distribution Width SD 52.5 fl (35.1-43.9); White Blood Count 11.2 K/mm3 (4.4-11.0)
[2017-11-05 11:28] LABS: Anion Gap 5 (5-15); BUN 11 mg/dL (7-18); BUN/Creat Ratio 9.1 RATIO (10-20); Calcium,Total 8.1 mg/dL (8.5-10.1); Chloride 110 mmol/L (98-107); Creatinine, Serum 1.21 mg/dL (0.55-1.02); EST Glomerular Filtration Rate 47 mL/min (>60); Est Glom Filt Rate - Afr Amer 57 mL/min (>60); Estimated Creatinine Clearance 40.03 ml/min; Glucose 87 mg/dL (74-106); Potassium 4.9 mmol/L (3.5-5.1); Sodium Level 138 mmol/L (136-145)
--- NOTE | 2017-11-05 12:49 | PCM.DC ---
- Discharge Diagnoses Current Active Problems: Current Active and Chronic Problems Cellulitis (Acute) ANDRIY (acute kidney injury) (Acute) Lower extremity weakness (Acute) Urinary retention (Acute) You will use the following diet at home:: Cardiac, High fiber Your food should be the consistency of: Regular Discharge Activity: May Not Drive Weight Bearing Status: Weight bearing as tolerated Allergies/Adverse Reactions: Allergies colesevelam HCl [From WelChol] Allergy (Verified 11/02/17 12:35) Unknown metolazone [From Zaroxolyn] Allergy (Verified 11/02/17 12:35) Unknown nitrofurantoin macrocrystalline [From Macrodantin] Allergy (Verified 11/02/17 12:35) Unknown Penicillins Allergy (Verified 11/03/17 12:13) Unknown PASSED OUT pravastatin sodium [From Pravachol] Allergy (Verified 11/02/17 12:35) Unknown Medications to take at Discharge Cyanocobalamin [Vitamin B12] 1,000 mcg IM Q30D 06/19/15 Montelukast [Singulair] 10 mg PO DAILY 06/19/15 Nitroglycerin [Nitrostat] 0.4 mg SUBLINGUAL Q5M PRN 06/19/15 Ranolazine [Ranexa] 1,000 mg PO BID 06/19/15 Temazepam [Restoril] 30 mg PO QHS PRN PRN 06/19/15 Albuterol Inhaler [Ventolin Hfa] 1 puff INHALATION Q4H PRN PRN 05/01/16 Ergocalciferol [Vitamin D] 50,000 unit PO SA 05/01/16 Omeprazole 40 mg PO BID 05/01/16 Atorvastatin Calcium [Lipitor] 80 mg PO QHS 11/02/17 Gabapentin [Neurontin] 400 mg PO BID 11/02/17 Prednisone 5 mg PO DAILY 11/02/17 Acetaminophen with Codeine [Tylenol with Codeine #3 Tablet] 1 ea PO Q8H PRN PRN #7 tab 11/05/17 Aspirin E.C. [Ecotrin] 81 mg PO DAILYCM tablet 11/05/17 Ensure Enlive 120 ml PO 4X/DAY liquid 11/05/17 Furosemide 40 mg PO DAILY #0 11/05/17 Ipratropium/Albuterol Sulfate [Duoneb] 3 ml INHALATION Q4H PRN PRN ampul.neb 11/05/17 Polyethylene Glycol 3350 [Miralax] 17 gm PO DAILY packet 11/05/17 Psyllium [Metamucil] 1 packet PO DAILY packet 11/05/17 Senna/Docusate Sodium [Senokot-S] 2 tablet PO BID tablet 11/05/17 Spironolactone 12.5 mg PO DAILY #0 11/05/17 Tamsulosin HCl [Flomax] 0.4 mg PO BID@0830,1730 capsule 11/05/17 The following prescriptions were given: Acetaminophen with Codeine [Tylenol with Codeine #3 Tablet] 1 ea PO Q8H PRN PRN #7 tab PRN Reason: Pain Primary Care Physician: Rigoberto Maher [Primary Care Provider] - Please follow up with your Primary Care Physician in: IN 2 WEEK Please Follow Up With: Vinay Persaud MD When: in 1-2 weeks for urine retention
[2017-11-05 12:51] VITALS: BP 129/72; PULSE 80; RESP 14; TEMP 36.6; O2SAT 98
--- NOTE | 2017-11-05 12:52 | DCINST_ITS ---
- Discharge Diagnoses Current Active Problems: Current Active and Chronic Problems Cellulitis (Acute) ANDRIY (acute kidney injury) (Acute) Lower extremity weakness (Acute) Urinary retention (Acute) You will use the following diet at home:: Cardiac, High fiber Your food should be the consistency of: Regular Discharge Activity: May Not Drive Weight Bearing Status: Weight bearing as tolerated Allergies/Adverse Reactions: Allergies colesevelam HCl [From WelChol] Allergy (Verified 11/02/17 12:35) Unknown metolazone [From Zaroxolyn] Allergy (Verified 11/02/17 12:35) Unknown nitrofurantoin macrocrystalline [From Macrodantin] Allergy (Verified 11/02/17 12 :35) Unknown Penicillins Allergy (Verified 11/03/17 12:13) Unknown PASSED OUT pravastatin sodium [From Pravachol] Allergy (Verified 11/02/17 12:35) Unknown Medications to take at Discharge Cyanocobalamin [Vitamin B12] 1,000 mcg IM Q30D 06/19/15 Montelukast [Singulair] 10 mg PO DAILY 06/19/15 Nitroglycerin [Nitrostat] 0.4 mg SUBLINGUAL Q5M PRN 06/19/15 Ranolazine [Ranexa] 1,000 mg PO BID 06/19/15 Temazepam [Restoril] 30 mg PO QHS PRN PRN 06/19/15 Albuterol Inhaler [Ventolin Hfa] 1 puff INHALATION Q4H PRN PRN 05/01/16 Ergocalciferol [Vitamin D] 50,000 unit PO SA 05/01/16 Omeprazole 40 mg PO BID 05/01/16 Atorvastatin Calcium [Lipitor] 80 mg PO QHS 11/02/17 Gabapentin [Neurontin] 400 mg PO BID 11/02/17 Prednisone 5 mg PO DAILY 11/02/17 Acetaminophen with Codeine [Tylenol with Codeine #3 Tablet] 1 ea PO Q8H PRN PRN #7 tab 11/05/17 Aspirin E.C. [Ecotrin] 81 mg PO DAILYCM tablet 11/05/17 Ensure Enlive 120 ml PO 4X/DAY liquid 11/05/17 Furosemide 40 mg PO DAILY #0 11/05/17 Ipratropium/Albuterol Sulfate [Duoneb] 3 ml INHALATION Q4H PRN PRN ampul.neb Polyethylene Glycol 3350 [Miralax] 17 gm PO DAILY packet 11/05/17 Psyllium [Metamucil] 1 packet PO DAILY packet 11/05/17 Senna/Docusate Sodium [Senokot-S] 2 tablet PO BID tablet 11/05/17 Spironolactone 12.5 mg PO DAILY #0 11/05/17 Tamsulosin HCl [Flomax] 0.4 mg PO BID@0830,1730 capsule 11/05/17 The following prescriptions were given: Acetaminophen with Codeine [Tylenol with Codeine #3 Tablet] 1 ea PO Q8H PRN PRN #7 tab PRN Reason: Pain Primary Care Physician: Rigoberto Maher [Primary Care Provider] - Please follow up with your Primary Care Physician in: IN 2 WEEK Please Follow Up With: Vinay Persaud MD When: in 1-2 weeks for urine retention
--- NOTE | 2017-11-05 12:54 | TREXTCAR_ITS ---
- Diet 11/03/17 23:48 Diet: Regular Diet Food consistency:: Regular Liquid Consistency:: Regular/Thin Is pt able to select menu?: Yes - Routine Orders/Code Status Suppository Type: Dulcolax 10mg Suppository Frequency: Daily PRN Routine Lab Work: CBC - on 11/08/2017, [facility] Code Status: Full Code - Wound(s) Rt upper arm Wound Type: Skin Tear Rt forearm Wound Type: Skin Tear Dressing Change: Adaptic Rt AC Wound Type: Skin Tear Lt AC Wound Type: Skin Tear Lt forearm Wound Type: Skin Tear Lt knee Wound Type: Skin Tear Dressing Change: Adaptic Rt knee Wound Type: Skin Tear right knee Wound Type: Skin Tear Dressing Change: Adaptic right medial knee Wound Type: Skin Tear Dressing Change: Adaptic - Therapies Weight Bearing: Weight bearing as tolerated Physical Therapy: Eval and Treat Occupational Therapy: Eval and Treat - Allergies/Procedures Done in Hospital Allergies/Adverse Reactions: Allergies colesevelam HCl [From WelChol] Allergy (Verified 11/02/17 12:35) Unknown metolazone [From Zaroxolyn] Allergy (Verified 11/02/17 12:35) Unknown nitrofurantoin macrocrystalline [From Macrodantin] Allergy (Verified 11/02/17 12 :35) Unknown Penicillins Allergy (Verified 11/03/17 12:13) Unknown PASSED OUT pravastatin sodium [From Pravachol] Allergy (Verified 11/02/17 12:35) Unknown - Type of Care/Length of Stay Estimated LOS: Convalescent Care Less Than 30 days Type of Care Needed: Skilled Rehab Potential: Fair Prognosis: Fair - Additional Orders/Day of Discharge Additional Orders: Discharge with Spence catheter and remove after 48 hours. On Flomax. If she retains urine after Spence catheter removal, straight catheterization Day of Discharge: 11/05/17 - Dietary and Speech Recommendations Dietitian Recommendations/Changes: Suggest diet change to cardiac, low sodium with FR as needed. Continue ensure enlive on medpass as needed until PO at meals optimized. - Follow Up Care Primary Care Physician: Rigoberto Maher [Primary Care Provider] - Please follow up with your Primary Care Physician in: IN 2 WEEK Please Follow Up With: Vinay Persaud MD When: in 1-2 weeks for urine retention Please Follow Up With: Victor M Casiano MD When: in 4 weeks for CAD, PAD
--- NOTE | 2017-11-05 12:56 | DS.PCM_ITS ---
Discharge Date and Diagnosis - Problem List Patient Problems: Active and Suspected Problems Cellulitis (Acute) ANDRIY (acute kidney injury) (Acute) Lower extremity weakness (Acute) Urinary retention (Acute) Date of Admission: 11/02/17 Date of Discharge: 11/05/17 - Primary Discharge Diagnosis Active and Suspected Problems Cellulitis (Acute) ANDRIY (acute kidney injury) (Acute) Lower extremity weakness (Acute) Urinary retention (Acute) 1. RLE MRSA cellulitis complicated with fall with bilateral lower leg multiple skin wounds and skin tears with history of MRSA in the past: 2. ANDRIY on CKD stage III with recurrent urinary retention probably hypovolemic, prerenal, diuretics was on Bumex and Lasix on her home medication and postrenal renal failure: Hyponatremia (due to hypovolemia and diuretic ) Acute on chronic urine retention most rarely due to chronic constipation 3. Hyperkalemia resolved - Secondary Discharge Diagnosis Chronic Problems Coronary atherosclerosis of [place] coronary artery (Chronic) Peripheral neuropathy (Chronic) Rheumatoid arthritis (Chronic) Traumatic open wound of lower leg (Chronic) Struck by falling object (Chronic) [id number] Lumbar spinal stenosis (Chronic) Bilateral lower extremity weakness (Chronic) Ulcer of left lower extremity with fat layer exposed (Chronic) Risk for falls (Chronic) Back pain (Chronic) Lumbar radiculopathy (Chronic) Hyperlipidemia (Chronic) Lumbar disc disease (Chronic) Asthma (Chronic) Hypertension (Chronic) Foot drop, left (Chronic) PAD (peripheral artery disease) (Chronic) Hospital Course and Treatment Consultations 11/03/17 00:33 Consult: Onc/Wound/diver assistant Routine Comment: Operations: None Summary of Care Provided: [] This is a 67-year-old female with history of chronic abdominal associated probably from 5-10 years is being admitted for right lower extremity cellulitis with multiple skin lacerations/easy tear for last 2-3 years years. The patient has history of MRSA about a year ago. Patient also has urinary retention and had 2-3 times straight catheterization and then finally Spence catheter ordered. Started on Flomax 0.4 mg p.o. twice daily. Urologist consult. Knees and bladder ultrasound ordered. The patient was seen and examined today. General: Alert, Oriented x3, Cooperative HEENT: Atraumatic, PERRLA, EOMI, Normocephalic Neck: Supple, No JVD, Negative Carotid Bruits Lungs: Normal air movement, No rhonchi, No wheeze, No rales Cardiovascular: Regular rate, Regular Rhythm, Normal S1, Normal S2, No murmurs Abdomen: Bowel Sounds Present, Soft, Non Tender, Non-Distended Extremities: No edema, Capillary Refill Less than 3 Seconds Skin: Ulcer/ Wound, Skin Tear, - - Ecchymosis and bruises present all over the skin. Multiple superficial wound and skin tears/lacerations to the of both lower extremity from knee downward; looks better. Musculoskeletal: No Tenderness to Palpation of Joints or Extremities Neurological: Cranial nerves II-XII grossly intact Psych/Mental Status: Normal Affect, Appropriate 1. RLE MRSA cellulitis complicated with fall with bilateral lower leg multiple skin wounds and skin tears with history of MRSA in the past: No SIRS criteria. The patient was prescribed levaquin as outpatient but only took one dose. Started on rocephin and then changed to IV vancomycin when MRSA from wound and nasal screen came positive. Discussed with the wound nurse, Leidy and wound picture reviewed. Wound culture preliminary shows a staph aureus, MRSA. ID consult. Urine negative. Afebrile. Leukocytosis improved to almost normal 11, 000 from last 2 days. She is immunocompromised 2/2 chronic prednisone therapy for RA and chronic adrenal insufficiency. She also has a hx of PAD which will complicate wound healing. Most probably, due to immunocompromise host, she is not showing host reaction with fever, tachycardia or SIRS criteria. Discussed with the ID, Dr. Ortiz and he advised to discharge on p.o. doxycycline and Keflex for 7 more days. Wound care to continue. 2. ANDRIY on CKD Stage 3- with Hyponatremia with recurrent urinary retention probably hypovolemic, prerenal, diuretics was on Bumex and Lasix on her home medication and postrenal renal failure: on IV NaCl. Kidney function improved to normal 1.2.. Avoid nephrotoxins. Kidney and bladder ultrasound shows mild bilateral renal atrophy with minimally filled urinary bladder. Patient has Spence catheter. Patient seen by urologist, Dr. Persaud and she is on Flomax. Advised Spence discontinuation after 48 hours and spontaneous urine trial. Patient is discharged on diuretic Lasix 20 mg daily and Spironolactone 12.5 mg daily and titrate support if she gets bilateral lower extremity edema. Spence catheter left in was advised to remove after 2 days with a spontaneous trial intermediate.. If patient further returns using straight catheterization. Follow Dr. Persaud. 3. Hyperkalemia resolved 4. Hx asthma - stable, duonebs, albuterol, singulair 5. Macrocytic anemia - T/S. Check Iron panel, B12, folate. 6. RA - on chronic prednisone 7. Debility 2/2 - Recent falls. Severe lumbar and cervical spine disease and RA - PTOT consults. 8. Hx CAD - on statin, ranexa 9. HTN - stable 10. Obesity - dietary consult. DVT pps: SCDs, severe anemia - no chemoppx Discharge medication reconciliation done. Discharge follow-up instructions completed. Follow with Dr. Casiano, PCP and Dr. Persaud as mentioned in discharge instruction. Total time spent, exact 32 minutes on discharge meds reconciliation, examination , review of imaging and blood test and discussion with the patient on follow-up instructions. Discharge Activity: May Not Drive Weight Bearing Status: Weight bearing as tolerated Home Medications: Medications to take at Discharge Cyanocobalamin [Vitamin B12] 1,000 mcg IM Q30D 06/19/15 Montelukast [Singulair] 10 mg PO DAILY 06/19/15 Nitroglycerin [Nitrostat] 0.4 mg SUBLINGUAL Q5M PRN 06/19/15 Ranolazine [Ranexa] 1,000 mg PO BID 06/19/15 Temazepam [Restoril] 30 mg PO QHS PRN PRN 06/19/15 Albuterol Inhaler [Ventolin Hfa] 1 puff INHALATION Q4H PRN PRN 05/01/16 Ergocalciferol [Vitamin D] 50,000 unit PO SA 05/01/16 Omeprazole 40 mg PO BID 05/01/16 Atorvastatin Calcium [Lipitor] 80 mg PO QHS 11/02/17 Gabapentin [Neurontin] 400 mg PO BID 11/02/17 Prednisone 5 mg PO DAILY 11/02/17 Acetaminophen with Codeine [Tylenol with Codeine #3 Tablet] 1 ea PO Q8H PRN PRN #7 tab 11/05/17 Aspirin E.C. [Ecotrin] 81 mg PO DAILYCM tablet 11/05/17 Ensure Enlive 120 ml PO 4X/DAY liquid 11/05/17 Furosemide 40 mg PO DAILY #0 11/05/17 Ipratropium/Albuterol Sulfate [Duoneb] 3 ml INHALATION Q4H PRN PRN ampul.neb Polyethylene Glycol 3350 [Miralax] 17 gm PO DAILY packet 11/05/17 Psyllium [Metamucil] 1 packet PO DAILY packet 11/05/17 Senna/Docusate Sodium [Senokot-S] 2 tablet PO BID tablet 11/05/17 Spironolactone 12.5 mg PO DAILY #0 11/05/17 Tamsulosin HCl [Flomax] 0.4 mg PO BID@0830,1730 capsule 11/05/17 Following Prescrptions Were Given to Patient: Acetaminophen with Codeine [Tylenol with Codeine #3 Tablet] 1 ea PO Q8H PRN PRN #7 tab PRN Reason: Pain Primary Care Physician: Rigoberto Maher [Primary Care Provider] - Please follow up with your Primary Care Physician in: IN 2 WEEK Please Follow Up With: Vinay Persaud MD When: in 1-2 weeks for urine retention Please Follow Up With: Victor M Casiano MD When: in 4 weeks for CAD, PAD Meaningful Use Info Meaningful Use Diagnoses (Choose all that apply): None applicable Code Visit Inpatient E&M: 54726 Disch Hosp
--- NOTE | 2017-11-05 13:02 | CON.PCM_ITS ---
Problem List (1) Cellulitis Status: Acute Qualifiers: Site of cellulitis: extremity Site of cellulitis of extremity: lower extremity Laterality: right Qualified Code(s): L03.115 - Cellulitis of right lower limb Reason for Consult: skin infection Consulted by: Dr. Jorge History of Present Illness: The patient is a 67 year old F with multiple skin tears who presented 11/02 with weakness and unable to get out of bed. Had sutures in place, legs with chronic redness, swelling. Had some recent drainage, but otherwise, legs were relatively stable. No fever or chills. Came to ED, cultures sent, started on vanc/cefazolin. Feeling better now. Wound cx with MRSA and GPC. Plan is for d /c to ECF today. Full ROS performed and neg except as noted above. - Medical History Past Medical History (Chronic Problems): Chronic Problems Coronary atherosclerosis of [place] coronary artery (Chronic) Peripheral neuropathy (Chronic) Rheumatoid arthritis (Chronic) Traumatic open wound of lower leg (Chronic) Struck by falling object (Chronic) W20.8XXD Lumbar spinal stenosis (Chronic) Bilateral lower extremity weakness (Chronic) Ulcer of left lower extremity with fat layer exposed (Chronic) Risk for falls (Chronic) Back pain (Chronic) Lumbar radiculopathy (Chronic) Hyperlipidemia (Chronic) Lumbar disc disease (Chronic) Asthma (Chronic) Hypertension (Chronic) Foot drop, left (Chronic) PAD (peripheral artery disease) (Chronic) Allergies/Adverse Reactions: Allergies colesevelam HCl [From WelChol] Allergy (Verified 11/02/17 12:35) Unknown metolazone [From Zaroxolyn] Allergy (Verified 11/02/17 12:35) Unknown nitrofurantoin macrocrystalline [From Macrodantin] Allergy (Verified 11/02/17 12 :35) Unknown Penicillins Allergy (Verified 11/03/17 12:13) Unknown PASSED OUT pravastatin sodium [From Pravachol] Allergy (Verified 11/02/17 12:35) Unknown Home Medications: Ambulatory Orders Medication Instructions Recorded Cyanocobalamin [Vitamin B12] 1,000 mcg IM Q30D 06/19/15 Montelukast [Singulair] 10 mg PO DAILY 06/19/15 Nitroglycerin [Nitrostat] 0.4 mg SUBLINGUAL Q5M PRN 06/19/15 Ranolazine [Ranexa] 1,000 mg PO BID 06/19/15 Temazepam [Restoril] 30 mg PO QHS PRN PRN 06/19/15 Albuterol Inhaler [Ventolin Hfa] 1 puff INHALATION Q4H PRN PRN 05/01/16 Ergocalciferol [Vitamin D] 50,000 unit PO SA 05/01/16 Omeprazole 40 mg PO BID 05/01/16 Atorvastatin Calcium [Lipitor] 80 mg PO QHS 11/02/17 Gabapentin [Neurontin] 400 mg PO BID 11/02/17 Prednisone 5 mg PO DAILY 11/02/17 Acetaminophen with Codeine 1 ea PO Q8H PRN PRN #7 tab 11/05/17 [Tylenol with Codeine #3 Tablet] Aspirin E.C. [Ecotrin] 81 mg PO DAILYCM tablet 11/05/17 Ensure Enlive 120 ml PO 4X/DAY liquid 11/05/17 Furosemide 40 mg PO DAILY #0 11/05/17 Ipratropium/Albuterol Sulfate 3 ml INHALATION Q4H PRN PRN 11/05/17 [Duoneb] ampul.neb Polyethylene Glycol 3350 [Miralax] 17 gm PO DAILY packet 11/05/17 Psyllium [Metamucil] 1 packet PO DAILY packet 11/05/17 Senna/Docusate Sodium [Senokot-S] 2 tablet PO BID tablet 11/05/17 Spironolactone 12.5 mg PO DAILY #0 11/05/17 Tamsulosin HCl [Flomax] 0.4 mg PO BID@0830,1730 capsule 11/05/17 - Social History SMOKING STATUS:: Former smoker Vital Signs Temp Pulse Resp BP Pulse Ox 97.8 F 79 16 120/51 L 98 11/05/17 08:22 11/05/17 08:22 11/05/17 08:22 11/05/17 08:22 11/05/17 08:22 Oxygen Delivery Method Room Air Weight: 79.2 kg Body Mass Index (BMI) 29.9 Microbiology Past 72 Hours 11/03/17 08:00 Urine Culture - Final Urine, Catheterized Culture exhibits no growth. 11/03/17 12:30 Gram Stain - Final Wound - Knee Wound Culture - Preliminary Meth. resistant Staph. aureus Gram Positive Cocci Laboratory Tests Past 24 Hrs 11/05/17 11/05/17 10:43 10:43 WBC 11.2 H RBC 2.60 L Hgb 8.5 L Hct 26.6 L MCV 102.3 H MCH 32.7 H MCHC 32.0 RDW 14.6 RDW Differential 52.5 H Plt Count 226 MPV 8.8 Immature Gran % (Auto) 1.400 H Neut % (Auto) 78.2 H Lymph % (Auto) 12.1 L [place] % (Auto) 5.6 Eos % (Auto) 2.3 Baso % (Auto) 0.4 Absolute Neuts (auto) 8.7 H Absolute Lymphs (auto) 1.35 Total Counted Not Reportable Sodium 138 Potassium 4.9 Chloride 110 H Carbon Dioxide 23.0 Anion Gap 5 BUN 11 Creatinine 1.21 H Estim Creat Clear Calc 40.03 Est GFR (MDRD) Af Amer 57 L Est GFR (MDRD) Non-Af 47 L BUN/Creatinine Ratio 9.1 L Glucose 87 Calcium 8.1 L - Other Studies Radiology: [] reviewed Other Studies: [] Route of nutrition/ use of supplements: [] Nutritional Intake: [] IV Site: [] Spence Catheter: [] - Physical Exam General: Alert, Oriented x3 HEENT: Atraumatic, PERRLA, EOMI Neck: Supple, No Nodes Lungs: Clear to auscultation, Normal air movement Cardiovascular: Regular rate, Regular Rhythm Abdomen: Soft, Non Tender, Non-Distended Extremities: Edema Skin: Ulcer/ Wound - reviewed photos of BLE IV Site: Peripheral, without redness Musculoskeletal: No Tenderness to Palpation of Joints or Extremities Neurological: Cranial nerves II-XII grossly intact - Assessment/Plan Antibiotics: [] Assessment/Plan: [] Active and Suspected Problems Cellulitis (Acute) ANDRIY (acute kidney injury) (Acute) Lower extremity weakness (Acute) Urinary retention (Acute) Wound cx with MRSA and GPC. Ok for d/c to ECF on 7 more days of abx with po doxy 100mg bid and po keflex 500mg tid. ANDRIY is improved, legs feeling better. Thank you, will follow, d/w Dr. Jorge.
--- NOTE | 2017-11-05 13:09 | CASEMGMT ---
Pt is ready for discharge, no IV antibiotics are needed. SW let [facility] know, they can take pt today. Hospital exemption completed in [place], SW faxed this with discharge instructions to [facility]. MAX sent schedule II to [facility]. MAX set up 3pm ambulance /[facility]. MAX let RN, pt, and Breanna at [facility] know time. No further needs anticipated. SVEN Haji, MILL ORDER SCHEDULER
[2017-11-05 13:39] VITALS: PULSE 79; RESP 16
[2017-11-05] MEDS: HYDROcodone Bitartrate/Apap 5/325 Tablet PO (14:08)
[2017-11-05 15:21] LABS: Vancomycin, Trough Level 24.4 ug/mL (5.0-15.0)
--- NOTE | 2017-11-05 15:21 | NURSING ---
Report called to [facility]. Called first time and was on hold 5 mintues and then phone hung up. This RN returned call and waiting 3 minutes to speak to an RN- report given and work cell phone in case any questions arise.
--- NOTE | 2017-11-05 16:27 | NURSING ---
Prescriptions for antibiotics were not printed to send to ECF at time patient was d/c'ed. This RN contacted Dr. Ortiz and Dr. Jorge. Dr. Jorge returned call first and printed out prescriptions for patient. This RN sent via fax to [facility]. Carito, nurse at [facility] notified of same.
== END 2017-11-05 15:09 | disposition skilled nursing facility (03) | DRG 603 ==
LOC: ED 23:47 → MS2 11-03 00:01
PROVIDERS: Physician Assistant; Admitting Provider Family Medicine; Emergency Provider Emergency Medicine; Family Provider Family Medicine; PCP Family Medicine; Visit Provider Internal Medicine
DX: L03.115 Cellulitis of right lower limb (principal); N17.9 Acute kidney failure, unspecified; E87.1 Hypo-osmolality and hyponatremia; E87.5 Hyperkalemia; G62.9 Polyneuropathy, unspecified; E27.40 Unspecified adrenocortical insufficiency; S41.112A Laceration without foreign body of left upper arm, initial encounter; D53.9 Nutritional anemia, unspecified; S81.811A Laceration without foreign body, right lower leg, initial encounter; W19.XXXA Unspecified fall, initial encounter; S81.812A Laceration without foreign body, left lower leg, initial encounter; B95.62 Methicillin resistant Staphylococcus aureus infection as the cause of diseases classified elsewhere; I25.10 Atherosclerotic heart disease of native coronary artery without angina pectoris; E78.5 Hyperlipidemia, unspecified; J45.909 Unspecified asthma, uncomplicated; E66.9 Obesity, unspecified; M06.9 Rheumatoid arthritis, unspecified; R33.9 Retention of urine, unspecified; E86.1 Hypovolemia; I12.9 Hypertensive chronic kidney disease with stage 1 through stage 4 chronic kidney disease, or unspecified chronic kidney disease; N18.3 Chronic kidney disease, stage 3 (moderate); Z86.14 Personal history of Methicillin resistant Staphylococcus aureus infection; Z79.52 Long term (current) use of systemic steroids; I73.9 Peripheral vascular disease, unspecified; Z87.891 Personal history of nicotine dependence; Z95.5 Presence of coronary angioplasty implant and graft; Z98.1 Arthrodesis status; M21.372 Foot drop, left foot; Z68.29 Body mass index [BMI] 29.0-29.9, adult; K56.41 Fecal impaction; Z23 Encounter for immunization
CPT/HCPCS: 36415; 76770; 80048; 80202; 81001; 82607; 82728; 82746; 83540; 83550; 83735; 85025; 87070; 87077; 87086; 87186; 87205; 87640; 94640; 97162; 97166; 97530; 97802; 99283; 99285; J7030; J7050; 90686; A4216; J2405

== ENCOUNTER → 2017-11-29 09:37 | Outpatient (CLI) | payer MEDICARE, OTHER, SELFPAY ==
--- NOTE | 2017-11-29 09:50 | US_ITS ---
STUDY: RENAL ULTRASOUND - COMPLETE REASON FOR EXAM: Female, 67 years old. History of urinary retention. TECHNIQUE: Ultrasound evaluation of the kidneys was performed with real-time and static barrett-scale imaging. COMPARISON: Comparison is made with prior study dated November 04, 2017. FINDINGS: RIGHT KIDNEY: Normal location of the right kidney, which is normal in size. The right kidney measures 9.0 cm x 4.6 cm x 4.6 cm. There is a normal cortex of the right kidney. The renal cortex measures 1.2 cm. There is no right renal mass or cyst. There are no right renal calculi. There is no right hydronephrosis. DISTAL RIGHT URETER: There is non-visualization of the distal right ureter. There is no demonstrated right ureterovesical junction calculus. There is a visualized right ureteral jet. LEFT KIDNEY: Normal location of the left kidney, which is normal in size. The left kidney measures 8.9 cm x 3.5 x 5.2 cm. There is a normal cortex of the left kidney. The renal cortex measures 1.3 cm. There is no left renal mass or cyst. There are no left renal calculi. There is no left hydronephrosis. DISTAL LEFT URETER: There is non-visualization of the distal left ureter. There is no demonstrated left ureterovesical junction calculus. There is a visualized left ureteral jet. BLADDER: The distended urinary bladder has a volume of 541.7 ml. The empty urinary bladder has a volume of 0 ml. There is a normal wall thickness of the distended urinary bladder. There is no demonstrated mass within the urinary bladder. There are no demonstrated bladder calculi. US/Kidney and Bladder IMPRESSION: Normal ultrasound of the kidneys and urinary bladder. Electronically Signed: Abel Eason MD at 15:41 EDT Tel [phone], Service support ,
== END ==
PROVIDERS: Family Provider Family Medicine; PCP Family Medicine; Visit Provider Urology
DX: R33.8 Other retention of urine (principal)
CPT/HCPCS: 76770

== ENCOUNTER → 2018-01-11 08:28 | Outpatient (CLI) | payer MEDICARE, OTHER, SELFPAY ==
--- NOTE | 2018-01-11 08:40 | AAVD_ITS ---
Reason For Study: AORTOILIAC DISEASE Aorta Measurements Aorta Doppler Measurements Proximal aorta measures1.3 X 1.3cm. in cross- Peak systolic flow velocities within the proximal sectional axis. aorta measure 94 cm/sec. Proximal aorta measures1.5cm. in longitudinal Peak systolic flow velocities within the mid axis. aorta measure 89 cm/sec. Mid aorta measures1.5 X 1.6cm. in cross-sectionalPeak systolic flow velocities within the distal axis. aorta measure 115 cm/sec. Mid aorta measures1.5cm. in longitudinal axis. Distal aorta measures1.5 X 1.6cm. in cross- sectional axis. Distal aorta measures1.6cm. in longitudinal axis. Left Iliac Artery Left iliac artery measures .9 cm. in the longitudinal axis. Left iliac artery measures .7 X .8 cm. in the cross-sectional axis. Peak systolic velocity in the left iliac artery measures 306 cm/sec. Right Iliac Artery Right iliac artery measures .8 X .9 cm. in the longitudinal axis. Right iliac artery measures .9 cm. in the cross-sectional axis. Peak systolic velocity in the right iliac artery measures 188 cm/sec. Procedure Exam performed in department. Interpretation Summary 1. no aneurysm seen 2. Right SHANIKA with severe stenosis. Ordering Physician: Alden Hernández Referring Physician: BELL CASTANEDA MD Performed By: Brenda Park, RDCS, RVT
--- NOTE | 2018-01-11 08:41 | ADU_ITS ---
Reason For Study: AORTOILIAC DISEASE Right Velocities Left Velocities Common Iliac Artery, mid = 197 cm./sec. Common Iliac Artery, mid = 192 cm./sec. Common Femoral Artery, mid = 178 cm./sec. Common Femoral Artery, mid = 164 cm./sec. Supf Femoral Artery, prox = 164 cm./sec. Supf. Femoral Artery, prox = 200 cm./sec. Supf Femoral Artery, mid = 111 cm./sec. Supf. Femoral Artery, mid = 123 cm./sec. Supf Femoral Artery, dist. = 109 cm./sec. Supf. Femoral Artery, dist = 123 cm./sec. Profunda Femoral Artery = 80 cm./sec. Profunda Femoral Artery = 67 cm./sec. Popliteal Artery, prox. = 120 cm./sec. Popliteal Artery, proximal, = 128 cm./sec. Popliteal Artery, dist = 97 cm./sec. Popliteal Artery, distal = 135 cm./sec. Post. Tibial Artery, prox = 111 cm./sec. Post. Tibial Artery, prox = 72 cm./sec. Post. Tibial Artery, mid = 96 cm./sec. Post Tibial Artery, mid = 110 cm./sec. Post. Tibial Artery, dist = 71 cm./sec. Post Tibial Artery, dist. = 58 cm./sec. Peroneal Artery, prox = 118 cm./sec. Peroneal Artery, prox = 140 cm./sec. Peroneal Artery, mid = 79 cm./sec. Peroneal Artery, mid = 58 cm./sec. Peroneal Artery,dist = 67 cm./sec. Peroneal Artery,dist. = 115 cm./sec. Ant. Tibial Artery, prox = 73 cm./sec. Ant.Tibial Artery, prox = 77 cm./sec. Ant. Tibial Artery, mid = 69 cm./sec. Ant Tibial Artery, mid = 73 cm./sec. Ant. Tibial Artery, dist = 84 cm./sec. Ant. Tibial Artery, distal = 73 cm./sec. Procedure Exam performed in department. Interpretation Summary 1. bilateral lower extremity with no stenosis seen but decrease flow noted in tibials and monophasic. Ordering Physician: Alden Hernández Referring Physician: BELL CASTANEDA MD Performed By: Brenda Park, SUKHWINDER, RVT
--- NOTE | 2018-01-12 08:35 | LEAS ---
Arterial Study - Arterial Study Arterial Study: Date of scan 01/11/[address] Hernández History: Patient with*atherosclerosis and claudication Interpretation: Right lower extremity with pulsatile flow from the thigh down to the calf ankle and out through the digits duplex shows more of a biphasic waveform noted. BRANDO noncompressible the posterior tibial 1.21 in the dorsalis pedis. Digital brachial index 0.63 next Left lower extremity again adequate waveform but slightly decreased from the low thigh to the calf ankle up through the digits duplex again appears to be more of a biphasic waveform noted at the ankle with an BRANDO 1.39 of the posterior tibial and 1.3 through the dorsalis pedis. Digital brachial index 0.61 Impression: 1. Right lower extremity no evidence of significant arterial occlusive disease at rest with an BRANDO 1.21 and an adequate digit brachial index 0.63 there is some noncompressibility of the posterior tib consistent with medial calcinosis. Further evaluation as clinically warranted 2. Left lower extremity with no evidence of significant arterial occlusive disease at rest with an BRANDO 1.39 and a digit brachial index 0.61. The BRANDO 1.3 on may be slightly falsely elevated and further evaluation as clinically warranted.
== END ==
PROVIDERS: Family Provider Family Medicine; PCP Family Medicine; Visit Provider Surgery Vascular Surgery
DX: I70.212 Atherosclerosis of native arteries of extremities with intermittent claudication, left leg (principal); I70.211 Atherosclerosis of native arteries of extremities with intermittent claudication, right leg; M79.604 Pain in right leg; M79.605 Pain in left leg; I74.09 Other arterial embolism and thrombosis of abdominal aorta; I10 Essential (primary) hypertension; R10.9 Unspecified abdominal pain; Z87.891 Personal history of nicotine dependence
CPT/HCPCS: 93923; 93925; 93978

== ENCOUNTER → 2018-05-05 11:04 | Outpatient (CLI) | payer MEDICARE, OTHER, SELFPAY ==
[2018-05-05 11:48] LABS: Hematocrit 31.8 % (37-47); Hemoglobin 10.1 g/dl (12.0-15.0); Mean Corp Hgb Conc 31.8 g/gl (32-36); Mean Corpuscular Hgb 30.2 pg (27.0-32.0); Mean Corpuscular Volume 95.2 fL (81-99); Mean Platelet Vol. 9.3 fl (6.2-12.0); Platelet Count 232 K/mm3 (150-450); RBC Distribution Width CV 16.2 % (11.6-14.6); RBC Distribution Width SD 56.7 fl (35.1-43.9); Red Blood Count 3.34 M/mm3 (4.2-5.4); White Blood Count 10.2 K/mm3 (4.4-11.0)
[2018-05-05 11:50] LABS: Scan Indicated on CBC? Y/N NO
[2018-05-05 12:16] LABS: ALB/GLOB Ratio 0.7 RATIO (0.9-2.4); AST(SGOT) 27 U/L (15-37); Alanine Aminotransfer ALT/SGPT 19 U/L (13-56); Albumin, Serum 2.6 g/dL (3.2-5.0); Alkaline Phosphatase 124 U/L (45-117); Anion Gap 12 (5-15); BUN 11 mg/dL (7-18); BUN/Creat Ratio 7.1 RATIO (10-20); Calcium,Total 8.9 mg/dL (8.5-10.1); Chloride 107 mmol/L (98-107); Creatinine, Serum 1.56 mg/dL (0.55-1.02); EST Glomerular Filtration Rate 35 mL/min (>60); Est Glom Filt Rate - Afr Amer 43 mL/min (>60); Globulin 3.9 g/dL (2.2-4.2); Glucose 74 mg/dL (74-106); Potassium 3.9 mmol/L (3.5-5.1); Protein, Total 6.5 g/dL (6.4-8.2); Sodium Level 141 mmol/L (136-145)
== END ==
PROVIDERS: Family Provider Family Medicine; PCP Family Medicine
DX: R10.9 Unspecified abdominal pain (principal); R19.4 Change in bowel habit; R19.7 Diarrhea, unspecified
CPT/HCPCS: 36415; 80053; 85027

== ENCOUNTER → 2018-05-06 11:04 | Outpatient (CLI) | payer MEDICARE, OTHER, SELFPAY | PROVIDERS: Family Provider Family Medicine; PCP Family Medicine; Visit Provider Internal Medicine Gastroenterology | DX: R10.9 Unspecified abdominal pain (principal); R19.4 Change in bowel habit; R19.7 Diarrhea, unspecified | CPT/HCPCS: 87329; 87493 ==

== ENCOUNTER 2018-12-15 10:56 | Emergency (ER) | payer MEDICARE, OTHER, SELFPAY ==
[2018-12-15 10:57] VITALS: BP 113/65; PULSE 95; RESP 18; TEMP 36.6; O2SAT 100; BMI 22.3
--- NOTE | 2018-12-15 11:17 | ED.DCSUM_ITS ---
History of Present Illness Chief Complaint: Constipation Detail of Chief Complaint: No bowel movement in 4-5 days Informant: Patient Onset: Days - 4 to 5 days Context: Sudden Onset Timing: Continuous Quality: No BM Location: Rectal pressure Current Severity: Moderate Maximum Severity: Moderate Worsened by: possibly medication Relieved by: Nothing Associated Symptoms: No associated symptoms Narrative: Patient is an elderly woman with history of bowel problems. She is on medication that she believes may be the cause of her constipation. She believes she is impacted. She denies any other symptoms or complaints. - Past Medical History (1) Asthma Status: Chronic (2) Atherosclerotic heart disease of [place] coronary artery without angina pectoris Status: Chronic Comment: PCI/stent of the distal CX; PCI/ALEXANDRO to prox RCA 08/19/06 (3) Congestive heart failure (CHF) Status: Chronic (4) Hyperlipidemia Status: Chronic (5) Hypertension Status: Chronic (6) PAD (peripheral artery disease) Status: Chronic (7) Peripheral neuropathy Status: Chronic (8) Renal insufficiency Status: Chronic Past Medical History - Allergies and Home Meds Allergies/Adverse Reactions: Allergies colesevelam HCl [From WelChol] Allergy (Verified 12/15/18 11:00) Unknown metolazone [From Zaroxolyn] Allergy (Verified 12/15/18 11:00) Unknown nitrofurantoin macrocrystalline [From Macrodantin] Allergy (Verified 12/15/18 11:00) Unknown Penicillins Allergy (Verified 12/15/18 11:00) Unknown PASSED OUT pravastatin sodium [From Pravachol] Allergy (Verified 12/15/18 11:00) Unknown Primary Care Physician: Rigoberto Maher MD [Primary Care Provider] - Prior records reviewed: Yes Surgical History: noncontributory, - - The patient has had coronary stents placed in the past, as well as femoral stents in her lower extremities bilaterally by Dr. Alden Hernández. She has undergone lumbar fusion at L5. She is undergone right carpal tunnel release. Lives: Spouse/ Significant Other Smoking Status: Former smoker Alcohol: None Drugs: None - Family History Maternal Family History: Family History (Last Updated 12/20/17 @ 11:03 by Lashaun Horton) Father Heart disease Mother Myocardial infarction, Onset Age: 50 CAD (coronary artery disease) Brother Diabetes Family History: Reports: - - The patient's mother in her 60s from lung cancer. Paternal Family History: Family History (Last Updated 12/20/17 @ 11:03 by Lashaun Horton) Father Heart disease Mother Myocardial infarction, Onset Age: 50 CAD (coronary artery disease) Brother Diabetes Family History: Reports: - - The patient's father at age of 82 of congestive heart failure. Review of Systems General: Denies: Chills, Fever, Malaise, Subjective, Sweats, Weight loss, - Gastrointestinal: Reports: Constipation. Denies: Abdominal pain, Nausea, Vomiting, Diarrhea, Melena, Hematochezia, -, - Musculoskeletal: Denies: Myalgias, Arthralgias, Neck pain, Back pain, Swelling, Extremity Pain Hematologic: Denies: Easy bruising, Easy bleeding Allergy: Denies: Uticaria, Swelling of the mouth Physical Exam Vital Signs/Narrative: Vital Signs Temp Pulse Resp BP Pulse Ox 12/15/18 10:57 98 F 95 18 113/65 100 Inital Vital Signs reviewed: Yes General: Well nourished, Well developed, No Acute Distress Head: Normocephalic, Atraumatic Eyes: Perrl, EOMI. Negative for: Pale conjunctiva, Scleral icterus ENT: Moist mucous membranes, No rhinorrhea Neck: Supple, Nontender, No lymphadenopathy, No JVD Cardiovascular: Regular rate, Regular rhythm, No murmurs, Normal S1, Normal S2 Respiratory: No distress, CTA bilaterally, Chest nontender Abdomen: Soft, Nontender, Nondistended, Normal bowel sounds, No masses Rectal: - - Fecal impaction. Stool is brown. There is evidence of hemorrhoid. Back: Nontender, Normal Inspection Skin: Normal color, No rash Neurological: Alert, Oriented x3, Cranial nerves II-XII grossly intact, Normal Strength, Normal Sensation Diagnostic/Tx/Re-eval - Medical Decision Making Patient with fecal impaction. Patient was disimpacted by me without difficulty. Patient feels markedly better. ED Disposition - Plan for ED Patient: Disposition: Home or Assisted Living Diagnosis: Fecal impaction of rectum Instructions: ED Impaction Fecal Treated Referrals: Rigoberto Maher MD [Primary Care Provider] - As Needed
== END 2018-12-15 11:30 | disposition home or self-care (01) ==
LOC: ED 11:29
PROVIDERS: Emergency Provider Emergency Medicine; Family Provider Family Medicine; PCP Family Medicine
DX: K56.41 Fecal impaction (principal); J45.909 Unspecified asthma, uncomplicated; I25.10 Atherosclerotic heart disease of native coronary artery without angina pectoris; I13.0 Hypertensive heart and chronic kidney disease with heart failure and stage 1 through stage 4 chronic kidney disease, or unspecified chronic kidney disease; N18.9 Chronic kidney disease, unspecified; I50.9 Heart failure, unspecified; Z87.891 Personal history of nicotine dependence
CPT/HCPCS: 99282

== ENCOUNTER 2018-12-30 10:00 | Outpatient (RCR) | payer MEDICARE, OTHER, SELFPAY ==
--- NOTE | 2018-11-18 12:17 | HP.PTEVAL_ITS ---
Patient's Visit Information MARCOS SHELTON is a 68 year old F referred to Physical Therapy by JUNAID ROSE with a diagnosis of S/P LUMBAR SPINAL FUSION. Date of Evaluation: 11/18/18 Physical Therapist: Sherry Galeas PT, Cert MDT - Visit Plan Frequency: 2-3x /Week Duration: 4-6 Weeks Plan: *WALKER AT ALL TIMES* *NO BENDING OR TWISTING IN STANDING*. POSTURE CORRECTION/STRENGTHENING, INSTRUCTION IN APPROPRIATE BODY MECHANICS AND ACTIVITY MODIFICATIONS. DLS WITH A NEUTRAL SPINE. ROGER LE ROM, STRETCHING AND STRENGTHENING. HEP INSTRUCTION. - Subjective Findings: Work/Leisure: RETIRED. Disability: ON DISABILITY STARTING APPROX 1999 FOR BACK AND HEART. Present symptoms: LEFT LOW BACK PAIN. BOTH LEGS FROM THE KNEE DOWN FEEL NUMBNESS. S/P JUL 27 2018 LUMBAR FUSION IN [place] - [facility] FOR 2 MONTHS. MOVED BACK HERE A FEW WEEKS AGO. Present since: 1999 OR LONGER. Pain Scale: WORST 6/10, LEAST 0/10. Currently: 0/10. Commenced as a result of: NO APPARENT REASON. Symptoms at onset: BACK. Worse: RISING FROM SITTING, SLIGHT BEND LIKE OVER SINK TO DO DISHES, STANDING, LIFTING, BENDING. Better: SITTING. Disturbed sleep: NO. Previous history/Previous treatment: THIS IS PATIENTS 4TH BACK SURGERY. PATIENT REPORTS THE FIRST SURGERY WORKED FOR A FEW YEARS. LAST TWO SURGERIES WERE DONE IN [place]. UTI AFTER LAST SURGERY WAS BAD PER PATIENT REPORT. H/O PHYSICAL THERAPY AND INJECTIONS FOR BACK ALSO. NOT CURRENTLY IN PAIN MGMT. Coughing/sneezing/straining: NO. Gait: HAS BEEN USING A ROLLATOR FOR ABOUT 3 YEARS. PATIENT REPORTS IT REALLY DOESN'T HURT WHEN SHE WALKS BUT HER LEGS GET TIRED AND SHE HAS TO SIT DOWN. Difficulty initiating urinatin: NO. Accidents: FALL LAST SUMMER RESULTING IN RIGHT TOTAL SHOULDER REPLACEMENT. STATES SHE BENT DOWN TO PICK SOMETHING UP AND WHEN SHE CAME BACK UP SHE FEL BACKWARDS. Unexplained weight loss: NO. Imaging: FOLLOW UP WITH SURGEON IN [place] AND X-RAY BEFORE COMING HOME AND PATIENT REPORTS HE SAID IT WAS HEALING WELL. PMH: SEE ABOVE. PLOF (Prior Level of Function): PATIENT REPORTS HER PAIN IS BETTER SINCE THIS LAST BACK SURGERY BUT HER LEGS ARE STILL WEAK. - Objective Sitting/Standing Posture: POOR. Lordosis: REDUCED. Active Correction of posture: NE. Other Observations: INDEP GAIT INTO PT WITH A ROLLATOR, DECREASED CADANCE, ROGER FOOT DROP AND INCREASED TRUNK FLEXION. NO LOB OR TRIPPING 2 X 300 FEET WHILE USING ROLLATOR. Motor deficit: ROGER LE WEAKNESS RIGHT > LEFT. RIGHT LE: HIP 3+/5, KNEE EXT 3-/5, KNEE FLEX 4-/5, ANKLE DORSI 2+/5. LEFT HIP 4-/5, KNEE EXT 3-/5, ANKLE 3-/5. Sensory deficit: ROGER LE LIGHT TOUCH SENSATION APPEARS INTACT AND SYMMETRICAL. ROM deficit: RIGHT KNEE ROM IN SUPINE WITH A HEEL SLIDE: -6 DEG EXT TO 138 DEG FLEX. LEFT KNEE: -5 DEG EXT TO 141 DEG FLEX. PATIENT DENIES ROGER KNEE PAIN. TIGHT ROGER HAMSTRINGS AND GASTROC SOLEUS COMPLEX'S. TIGHT ROGER HIP EXTERNAL ROTATORS RIGHT > LEFT. Reflexes: ROGER QUAD DTR'S 1/2. ROGER ACHILLES DTR'S ABSENT. Dural Signs: POSITIVE ROGER LE'S. Lumbar mvmt loss: NT IN STANDING. H/O STRANGE FEELING, MUSCLE TIGHTENING AND GETTING SICK WITH BENDING. Core strength: POOR. Palpation: LONG WELL HEALED LUMBAR INCISION WITHOUT ANY SIGNS OF INFECTION. RIGHT ANKLE EDEMA GREATER THAN LEFT. PATIENT REPORTS H/O TURNING HER ANKLE AT DR. FRIEND'S OFFICE RECENTLY BUT DENIES ANKLE PAIN. REPORTS PATIENTS RIGHT ANKLE IN TURNING IS NOT NEW. OTHER: INDEP TRANSFER SIT TO SUPINE AND REVERSE. ABLE TO TOLERATE SOME SUPINE LYING WELL. PATIENT REPORTS SHE HAS NOT BEEN DOING ANY HOME EX'S. - Goals Goal 1:: DECREASE C/O LEFT LOW BACK PAIN Goal Time Frame: 4-6 Weeks Goal 2:: IMPROVE STANDING, WALKING, PERSONAL CARE, LIFTING, SOCIAL LIFE AND HOMEMAKING FUNCTION. Goal Time Frame: 4-6 Weeks Goal 3:: INSTRUCT IN PROPHYLAXIS Goal Time Frame: 4-6 Weeks - Rehabilitation Potential Rehabilitation Potential: Fair - Anticipated Interventions Patient/Client Instruction: Educate patient on: Condition, Plan of Care, Risk Factors, Benefits of Fitness Program For the Purpose of:: To improve self management Therapeutic Exercise to Include: Strength training, Body mechanics, Postural training, Flexibilty training, Gait and locomotor training, Passive ROM, Active ROM, Dynamic Lumbar Stabilization Comment: PLEASE INCLUDE GENTLE DORSIFLEXION PROM AND TERMINAL KNEE EXTENSION. For the Purpose of:: To decrease pain, To improve muscle performance and motor function, To increase tolerance to activity/condition/position, To improve ability of physical actions for home/community/work/leisure Cryotherapy (ice pack, ice massage): Yes Thermo therapy (hot pack): Yes For the Purpose of:: To decrease pain Thank you for the opportunity to evaluate your patient. For Medicare and Medicare HMO plans, please review the plan of care and approve it. It will need to be FAXED BACK to us at [phone] for Medicare purposes. For Medicare only, by signing this I certify the plan of care. Please let me know if there are questions or concerns regarding this plan of care. Physician Signature: Date:
--- NOTE | 2018-12-05 14:27 | HP.PTREVAL ---
JUNAID ROSE, It has been my pleasure to treat MARCOS SHELTON over the last 5 visits for S/P LUMBAR SPINAL FUSION. Please see the progress note below for an update on the physical therapy plan of care! Subjective: PATIENT REPORTS SHE HASN'T HAD ANY PAIN FOR A DAY OR TWO. STATES SHE WAS STANDING AT THE BATHROOM SINK ORGANIZING SOME THINGS OVER THE WEEKEND AND ALTHOUGH HER BACK STARTED TO HURT IT WENT AWAY QUICKLY UPON SITTING. DID A LOT OF WALKING OVER THE WEEKEND. PATIENT REPORTS HER LEGS ARE STILL NUMB FROM THE KNEES DOWN. GOING TO SEE HEART Wednesday. STATES SHE IS DOING HER HOME EX'S. PATIENT REPORTS THE ANKLE SHE TURNED AT THE DOCTORS OFFICE (RIGHT) SEEMS FINE NOW. PATIENT REPORTS SHE IS NOT USING HER WALKER AT HOME DESPITE RECOMMENDATION DUE TO BEING ABLE TO FURNITURE WALK. Objective/Function: IMPROVING. INDEP GAIT INTO PT WITH A ROLLATOR, DECREASED CADANCE (BUT IMPORVED SINCE EVAL), ROGER FOOT DROP AND INCREASED TRUNK FLEXION (BUT AGAIN IMPROVED SINCE EVAL - MUCH MORE ERECT) NO LOB OR TRIPPING 2 X 300 FEET WHILE USING ROLLATOR. Motor deficit: ROGER LE WEAKNESS RIGHT > LEFT. RIGHT LE: HIP 3+/5, KNEE EXT 3+/5, KNEE FLEX 4-/5, ANKLE DORSI 2+/5. LEFT HIP 4-/5, KNEE EXT 4-/5, ANKLE 3-/5. Sensory deficit: ROGER LE LIGHT TOUCH SENSATION APPEARS INTACT AND SYMMETRICAL. OTHER: ROGER KNEE FULL EXT ROM NOW. PATIENT ALSO DEMO'S INDEP SLS RIGHT X 3 SEC AND LEFT X 6 SEC WITHOUT UE ASSIST. Lumbar mvmt loss: NT IN STANDING. PATIENT REPORTS SHE HAS NOT HAD SYMPTOMS WITH BENDING LIKE BEFORE FOR AWHILE NOW. Core strength: POOR Plan Plan: TRANSITION TO AQUATIC THERAPY AND CONTINUE PER ORIGINAL POC. CONTINUE 2-3 TIMES A WEEK X 10 MORE VISITS. PATIENT IS AGREEABLE AND PREFERS AQUATIC. Goals Goal 1:: DECREASE C/O LEFT LOW BACK PAIN Goal Time Frame: 4-6 Weeks Goal 2:: IMPROVE STANDING, WALKING, PERSONAL CARE, LIFTING, SOCIAL LIFE AND HOMEMAKING FUNCTION. Goal Time Frame: 4-6 Weeks Goal 3:: INSTRUCT IN PROPHYLAXIS Goal Time Frame: 4-6 Weeks Anticipated Interventions Patient/Client Instruction: Educate patient on: Condition, Plan of Care, Risk Factors, Benefits of Fitness Program For the Purpose of:: To improve self management Therapeutic Exercise to Include: Strength training, Body mechanics, Postural training, Flexibilty training, Gait and locomotor training, Passive ROM, Active ROM, Dynamic Lumbar Stabilization Comment: PLEASE INCLUDE GENTLE DORSIFLEXION PROM AND TERMINAL KNEE EXTENSION. For the Purpose of:: To decrease pain, To improve muscle performance and motor function, To increase tolerance to activity/condition/position, To improve ability of physical actions for home/community/work/leisure Cryotherapy (ice pack, ice massage): Yes Thermo therapy (hot pack): Yes For the Purpose of:: To decrease pain Please do not hesitate to contact me at [phone] by phone or if you have questions or concerns regarding this new plan of care! Sincerely, Sherry Galeas PT, Cert MDT
--- NOTE | 2018-12-30 10:55 | HP.PTDCSUM ---
HP - PT D/C Summary It has been my pleasure to treat MARCOS SHELTON under orders from JUNAID ROSE, for the diagnosis of S/P LUMBAR SPINAL FUSION for a total of 12 visit(s). Discharge Date: Please see the following information for a summary of their discharge status. - Subjective Subjective: PATIENT REPORTS SHE IS GETTING A LOT BETTER. SHE STATES SHE CAN STAND TO DO THE DISHES NOW AND WALK THROUGH THE HOUSE GOOD. SHE REPORTS SHE IS DOING HER HOME EX PROGRAM AND ISN'T HAVING ANY PROBLEMS. REPORTS SHE PLANS TO CONTINUE HER HOME EX'S AND JOIN THE [facility] TO CONTINUE INDEP WATER EX. - Pain Lumbar Spine Pain Intensity (Out of 10): 0 - Overall Improvement % Improvement: 90 - Objective Objective/Function: ALL GOALS MET. PATIENT HAS DONE WELL WITH PT AND GAINED STRENGTH AND STAMINA. DURING TESING OF HER LEGS SHE REPORTS THIS IS THE STRONGEST HER LEGS HAVE FELT IN YEARS. INDEP GAIT INTO PT WITH A ROLLATOR WITH FAIR CADANCE AND DECREASED FOOT DROP. SHE IS ACTUALLY HEEL STRIKING WITH GAIT NOW. HER RIGHT ANKLE IS TURNED IN IN NON WEIGHT BEARING AND HAS BEEN FOR UNKNOWN TIME. NO LOB OR TRIPPING 2 X 300 FEET WHILE USING ROLLATOR. Motor deficit: ROGER LE WEAKNESS RIGHT > LEFT. RIGHT LE: HIP 4-/5, KNEE EXT 3+/5, KNEE FLEX 4-/5, ANKLE DORSI 3-/5. LEFT HIP 4/5, KNEE EXT 4/5, ANKLE 3+ TO 4-/5. Sensory deficit: ROGER LE LIGHT TOUCH SENSATION APPEARS INTACT AND SYMMETRICAL. OTHER: ROGER KNEE FULL EXT ROM AND GOOD FULL ROGER KNEE FLEX. PATIENT ALSO DEMO'S INDEP SLS RIGHT X 6 SEC AND LEFT X 10 SEC WITHOUT UE ASSIST. Lumbar mvmt loss: NT IN STANDING. Core strength: POOR. LUMBAR OSWESTRY IMPROVED TO 8. GAIT TRAINING WITH A STRAIGHT CANE TODAY IN THE LUE. PATIENT ABLE TO MAINTAIN BALANCE WITHOUT ANY STUMBLING X APPROX 100 FEET X 3. SHE REPORTS IT FEELS REALLY GOOD TO USE THE CANE. SHE HAS ONE AT HOME AND HAS USED IT IN THE PAST BUT HASN'T BEEN ABLE TO FOR ABOUT A YEAR. THIS PT RECOMMENDS TRIAL OF CANE IN THE HOUSE ONLY AT THIS TIME FOR SAFETY. - Goals Goal 1:: DECREASE C/O LEFT LOW BACK PAIN Goal Progress: Goal Met Goal 2:: IMPROVE STANDING, WALKING, PERSONAL CARE, LIFTING, SOCIAL LIFE AND HOMEMAKING FUNCTION. Goal Progress: Goal Met Goal 3:: INSTRUCT IN PROPHYLAXIS Goal Progress: Goal Met - Plan Plan: D/C TO INDEP HOME AND WATER EX PROGRAMS. PATIENT AGREEABLE. - D/C Information If there are questions or concerns regarding this patient's physical therapy, please feel free to call me at [phone]. Thank you for the referral of this patient. Sincerely, Sherry Galeas, PT, Cert MDT
== END 2018-12-30 19:00 | disposition home or self-care (01) ==
LOC: PT 10:00
PROVIDERS: Family Provider Family Medicine; PCP Family Medicine
DX: Z98.1 Arthrodesis status (principal)
CPT/HCPCS: 97110; 97113; 97116; 97162; 97530

== ENCOUNTER 2019-02-10 16:21 | Observation (INO) | payer MEDICARE, OTHER, SELFPAY ==
[2019-02-10 16:22] VITALS: BP 137/62; PULSE 68; RESP 16; TEMP 36.2; O2SAT 99; BMI 23.0
[2019-02-10 18:19] LABS: Absolute Lymphocyte Count 1.95 X10^3/ul (0.83-4.51); Absolute Neutrophil Count 3.7 X10^3/uL (2.0-7.7); Basophil# 0.02 X10^3/uL; Basophil% 0.3 % (0-1); Eosinophils% 5.9 % (0-5); Hematocrit 31.4 % (37-47); Hemoglobin 10.5 g/dl (12.0-15.0); Lymphocyte # 1.95 X10^3/ul (4.0); Lymphocyte % 28.6 % (19-41); Mean Corp Hgb Conc 33.4 g/gl (32-36); Mean Corpuscular Hgb 30.7 pg (27.0-32.0); Mean Corpuscular Volume 91.8 fL (81-99); Mean Platelet Vol. 9.4 fl (6.2-12.0); Monocyte# 0.65 X10^3/uL; Monocyte% 9.5 % (0-10); Neutrophil # 3.73 X10^3/uL (2.7-7.7); Neutrophil % 54.8 % (47-70); Platelet Count 231 K/mm3 (150-450); RBC Distribution Width SD 42.3 fl (35.1-43.9); Red Blood Count 3.42 M/mm3 (4.2-5.4); White Blood Count 6.8 K/mm3 (4.4-11.0)
[2019-02-10 18:23] LABS: POSITIVE COUNT NO; POSITIVE DIFFERENTIAL NO; POSITIVE MORPHOLOGY NO
[2019-02-10 18:25] LABS: Anion Gap 4 (5-15); BUN 34 mg/dL (7-18); BUN/Creat Ratio 18.8 RATIO (10-20); Calcium,Total 9.2 mg/dL (8.5-10.1); Chloride 101 mmol/L (98-107); Creatinine, Serum 1.81 mg/dL (0.55-1.02); EST Glomerular Filtration Rate 30 mL/min (>60); Est Glom Filt Rate - Afr Amer 36 mL/min (>60); Glucose 82 mg/dL (74-106); Potassium 4.7 mmol/L (3.5-5.1); Sodium Level 132 mmol/L (136-145)
[2019-02-10] MEDS: 0.9% Normal Saline 1,000 ML 150 ML IV (18:25)
[2019-02-10 18:28] VITALS: TEMP 36.5
[2019-02-10 18:38] LABS: Bacteria 0 SEEN /hpf (None Seen); Mucous, Urine 0 SEEN /hpf (<or=2+); Red Blood Cells-Urine 0 SEEN /hpf (0-5); White Blood Cells 0 SEEN /hpf (0-5)
[2019-02-10 18:46] LABS: Color, Urine Yellow (Yellow); Glucose, Dipstick Normal (Normal); Ketone-Dipstick Negative (Negative); Leukocyte Esterase-Dipstick Negative /ul (Negative); Nitrite-Dipstick Negative (Negative); Occult Blood-Urine Negative /ul (Negative); Protein-Dipstick Negative (Negative); Urine Bilirubin Dipstick Negative (Negative); Urine Clarity Clear (Clear); Urine Urobilinogen Normal (Normal); Urine pH 6.5 (5.0 - 8.0)
[2019-02-10 19:03] LABS: Squamous Epithelial Cells - UA 0-5 SEEN /hpf (5-10)
--- NOTE | 2019-02-10 19:42 | CT_ITS ---
STUDY: CT BRAIN WITHOUT CONTRAST REASON FOR EXAM: Female, 68 years old. Frequent falls. RADIATION DOSAGE (If Supplied By Facility): CTDIvol = ( 44.99 ) mGy, DLP = ( 796.11 ) mGycm TECHNIQUE: Transaxial CT imaging of the brain was performed without administration of intravenous contrast material. Individualized dose optimization techniques were used for this CT. COMPARISON: No relevant priors. FINDINGS: Normal soft tissue structures. Normal calvarium. Normal size ventricles and extra-axial spaces for the patient's age. Normal white matter tracts of the cerebral hemispheres. Normal basal ganglia and thalami. Normal brainstem. Normal cerebellum. There is no intracranial hemorrhage. There are no findings of an acute ischemic infarction. Normal visualized paranasal sinuses. CT/Brain/Head without Contrast IMPRESSION: No acute intracranial process. Electronically Signed: Mimi Wilson MD at 20:06 EDT Tel , Service support ,
--- NOTE | 2019-02-10 20:24 | ED.RN ---
NOT SEPSIS RISK PER TEST RESULTS
--- NOTE | 2019-02-10 21:16 | EKG12_ITS ---
Test Reason : WEAKNESS Blood Pressure : / mmHG Vent. Rate : 059 BPM Atrial Rate : 059 BPM P-R Int : 166 ms QRS Dur : 090 ms QT Int : 490 ms P-R-T Axes : 030 045 047 degrees QTc Int : 485 ms Sinus bradycardia Otherwise normal ECG Confirmed by ZE LARA ([id number]), movie editor RENETTA SOMMER ([id number]) on 02/15/2019 2:07:10 PM Referred By: Yasmani Teixeira Confirmed By:ZE LARA
[2019-02-10 21:22] VITALS: BP 147/72; PULSE 68; RESP 18; O2SAT 96
--- NOTE | 2019-02-10 21:23 | ED.DCSUM_ITS ---
- ER Visit Summary Date of Service: 02/10/19 Chief Complaint: Dysuria, frequency, balance problems History of Present Illness: The patient is a 68 F who presents with weakness and being unsteady on her feet. She did fall yesterday. Patient states she had UTI 2 weeks ago. Her dysuria and frequency returned yesterday. She reportedly did fall last evening and was seen at [facility] where her head CT was unremarkable. Physical Examination: Vital signs unremarkable. Patient sitting upright in bed no acute distress. Heart is regular rate and rhythm. Lung sounds are clear pedal and abdomen is soft with mild tenderness in the left lower quadrant. Skin examination reveals skin tears in the left elbow. Neuro exam reveals normal strength and sensation but she does have problems holding her balance when sitting upright on the side of the bed. Test Results: CBC was normal white count. Hemoglobin 10.5. Chemistry studies reveal sodium of 132, BUN 34, creatinine 1.81. Urinalysis is normal. CT the head shows no acute process. Emergency Department Course and Treatment: Patient was given IV fluids here. We discussed the possibility of stroke causing her to have balance problems. At this time I see no sign of acute urinary infection. Just sitting on the side the bed she has difficulty holding her balance and tends to fall backwards. We will admit her for further neuro work-up. Treatment Plan: [] Disposition: Admit Impression: Balance problems with falls This note was generated with [employer] dictation software. It may contain incorrect words, spelling, and punctuation that were not noted in review of the chart prior to signing ED Disposition - Plan for ED Patient: Referrals: Rigoberto Maher MD [Primary Care Provider] -
--- NOTE | 2019-02-10 22:05 | PCM.HP.STD ---
Problem List (1) Stroke-like symptoms Status: Acute History of Present Illness Date of Admission: 02/10/19 Chief Complaint: Imbalance with fall The patient is a 68 year old F with a significant history of CAD status post stent; PAD status post stent; and CHF who presented to the emergency department because she lost her balance and fell 2 days in a row with the last fall a day before presentation. Both times she hit the back of her head. She went to [facility] a day before she presented here and CT head was unremarkable. Also she reports blurry vision and difficult to bring her words out. She correlate her symptoms with probable UTI. At the emergency department her urinalysis was normal. Patient sustained left elbow laceration from fall. Past Medical History Past Medical History (Chronic Problems): Chronic Problems (Last Updated 12/20/17 @ 12:03 by Lashaun Horton) Nonrheumatic mitral valve regurgitation (Chronic) Presence of stent in coronary artery (Chronic) PCI/stent of the distal CX; PCI/ALEXANDRO to prox RCA 08/19/06 Renal insufficiency (Chronic) Congestive heart failure (CHF) (Chronic) Atherosclerotic heart disease of [place] coronary artery without angina pectoris (Chronic) PCI/stent of the distal CX; PCI/ALEXANDRO to prox RCA 08/19/06 Peripheral neuropathy (Chronic) Hyperlipidemia (Chronic) Asthma (Chronic) Hypertension (Chronic) PAD (peripheral artery disease) (Chronic) Medical History: Medical History (Last Reviewed 02/11/19 @ 09:24 by Yasmani Teixeira MD) Nonrheumatic mitral valve regurgitation (Chronic) I34.0 Palpitations (Acute) R00.2 Renal insufficiency (Chronic) N28.9 Congestive heart failure (CHF) (Chronic) I50.9 Atherosclerotic heart disease of [place] coronary artery without angina pectoris (Chronic) I25.10 PCI/stent of the distal CX; PCI/ALEXANDRO to prox RCA 08/19/06 Peripheral neuropathy (Chronic) G62.9 Hyperlipidemia (Chronic) E78.5 Asthma (Chronic) J45.909 Hypertension (Chronic) I10 PAD (peripheral artery disease) (Chronic) I73.9 ANDRIY (acute kidney injury) N17.9 Cellulitis L03.90 Cellulitis of right lower extremity L03.115 History of DVT (deep vein thrombosis) Z86.718 Urinary retention R33.9 Foot drop, left M21.372 Lumbar disc disease M51.9 Lumbar radiculopathy M54.16 Rheumatoid arthritis M06.9 Spinal stenosis of lumbar region M48.061 Ulcer of left lower extremity with fat layer exposed L97.922 History of hysterectomy Z90.710 Ulcer of right lower extremity with fat layer exposed L97.912 Allergies colesevelam HCl [From WelChol] Allergy (Verified 02/10/19 16:24) Unknown metolazone [From Zaroxolyn] Allergy (Verified 02/10/19 16:24) Unknown nitrofurantoin macrocrystalline [From Macrodantin] Allergy (Verified 02/10/19 16:24) Unknown Penicillins Allergy (Verified 02/10/19 16:24) Unknown PASSED OUT pravastatin sodium [From Pravachol] Allergy (Verified 02/10/19 16:24) Unknown Home Medications: Ambulatory Orders Medication Instructions Recorded Montelukast [Singulair] 10 mg PO DAILY 06/19/15 Nitroglycerin (INPATIENT USE) 0.4 mg SUBLINGUAL Q5M PRN 06/19/15 [Nitrostat] Ranolazine [Ranexa] 1,000 mg PO BID 06/19/15 Albuterol Inhaler [Ventolin Hfa] 1 puff INHALATION Q4H PRN PRN 05/01/16 Omeprazole 40 mg PO DAILY 05/01/16 Acetaminophen with Codeine 1 ea PO Q8H PRN PRN #7 tab 11/05/17 [Tylenol with Codeine #3 Tablet] Aspirin E.C. [Ecotrin] 81 mg PO DAILYCM tablet 11/05/17 Ipratropium/Albuterol Sulfate 3 ml INHALATION Q4H PRN PRN 11/05/17 [Duoneb] ampul.neb Polyethylene Glycol 3350 [Miralax] 17 gm PO DAILY packet 11/05/17 Psyllium [Metamucil] 1 packet PO DAILY packet 11/05/17 Senna/Docusate Sodium [Senokot-S] 2 tab PO BID tab 11/05/17 furosemide 40 mg tablet 40 mg PO BID tab 12/20/17 levothyroxine 100 mcg tablet 88 mcg PO QDAY 12/20/17 metoprolol tartrate 25 mg tablet 37.5 mg PO BID 12/20/17 Hydroxyzine HCl 25 mg PO Q6H PRN PRN 02/10/19 Linaclotide [Linzess] 72 mcg PO DAILY 02/10/19 Rosuvastatin Calcium 20 mg PO DAILY 02/10/19 Spironolactone 25 mg PO DAILY 02/10/19 Temazepam 30 mg PO QHS PRN 02/10/19 Surgical History: Surgical History (Last Reviewed 02/11/19 @ 09:24 by Yasmani Teixeira MD) Presence of stent in coronary artery (Chronic) Z95.5 PCI/stent of the distal CX; PCI/ALEXANDRO to prox RCA 08/19/06 Postsurgical percutaneous transluminal coronary angioplasty (PTCA) status Z98.61 PCI/stent of the distal CX; PCI/ALEXANDRO to prox RCA 08/19/06 History of bunionectomy of left great toe Z98.890 History of carpal tunnel surgery Z92.89 History of laminectomy Z98.890 Hx of appendectomy Z90.49 Status post insertion of iliac artery stent Z95.828 bilateral 05/29/11 Surgical History: - - The patient has had coronary stents placed in the past, as well as femoral stents in her lower extremities bilaterally by Dr. Alden Hernández. She has undergone lumbar fusion at L5. She is undergone right carpal tunnel release. 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 Paternal Family History: Family History (Last Reviewed 02/11/19 @ 09:24 by Yasmani Teixeira MD) Father Heart disease Mother Myocardial infarction, Onset Age: 50 CAD (coronary artery disease) Brother Diabetes History Items: - - The patient's father at age of 82 of congestive heart failure. Review of Systems Constitutional: Denies: Chills, Fever, Weight Change HEENT: Denies: Head Aches, Sinus Congestion, Sinus Drainage Cardiovascular: Denies: Chest Pain, Palpitations Respiratory: Denies: Cough, Shortness of breath at rest, Sputum production Gastrointestinal: Denies: Abdominal Pain, Nausea, Vomiting Genitourinary: Denies: Dysuria Musculoskeletal: Denies: Joint Pain, Joint Tenderness Skin: Reports: Wounds - Left elbow Neurological: Reports: Blurred vision, Change in Speech, Incoordination. Denies: Focal weakness, Numbness, Tingling Psychiatric: Denies: Anxiety, Depression, Homicidal Ideations, Suicidal Ideations Hematologic/ Lymphatic: Denies: Easy Bruising, Easy Bleeding VTE Information - Inpt Only VTE Present on Admission: No VTE Mechan Device Prophylaxis: None VTE Pharm Prophylaxis ordered?: Yes Patient Problems: Active and Suspected Problems (Last Updated 12/20/17 @ 12:03 by Lashaun Horton) Stroke-like symptoms (Acute) - Physical Exam General: Alert, Oriented x3, Cooperative HEENT: Atraumatic, PERRLA, EOMI, Normocephalic Neck: Supple, No JVD, Negative Carotid Bruits Lungs: Clear to auscultation, Normal air movement Cardiovascular: Regular rate, No murmurs Abdomen: Bowel Sounds Present, Soft, Non Tender Extremities: No edema, Capillary Refill Less than 3 Seconds Skin: No rashes, No breakdown, - - Left elbow laceration Musculoskeletal: No Tenderness to Palpation of Joints or Extremities Neurological: Cranial nerves II-XII grossly intact, - - No dysmetria. Increased reflex on right leg compared to left leg. Psych/Mental Status: Normal Affect, Appropriate Vital Signs Temp Pulse Resp BP Pulse Ox 97.7 F L 68 18 147/72 H 96 02/10/19 18:28 02/10/19 21:22 02/10/19 21:22 02/10/19 21:22 02/10/19 21:22 Oxygen Delivery Method Room Air Weight: 60.781 kg Body Mass Index (BMI) 23.0 Laboratory Tests Past 24 Hrs 02/10/19 02/10/19 02/10/19 17:36 17:36 17:36 WBC 6.8 RBC 3.42 L Hgb 10.5 L Hct 31.4 L MCV 91.8 MCH 30.7 MCHC 33.4 RDW 13.0 RDW Differential 42.3 Plt Count 231 MPV 9.4 Immature Gran % (Auto) 0.900 Neut % (Auto) 54.8 Lymph % (Auto) 28.6 [place] % (Auto) 9.5 Eos % (Auto) 5.9 H Baso % (Auto) 0.3 Absolute Neuts (auto) 3.7 Absolute Lymphs (auto) 1.95 Total Counted Not Reportable Sodium 132 L Potassium 4.7 Chloride 101 Carbon Dioxide 27.0 Anion Gap 4 L BUN 34 H Creatinine 1.81 H Estim Creat Clear Calc 26.40 Est GFR (MDRD) Af Amer 36 L Est GFR (MDRD) Non-Af 30 L BUN/Creatinine Ratio 18.8 Glucose 82 Calcium 9.2 Urine Color Yellow Urine Clarity Clear Urine pH 6.5 Ur Specific [place] 1.010 Urine Protein Negative Urine Glucose (UA) Normal Urine Ketones Negative Urine Occult Blood Negative Urine Nitrite Negative Urine Bilirubin Negative Urine Urobilinogen Normal Ur Leukocyte Esterase Negative Urine RBC 0 SEEN Urine WBC 0 SEEN Ur Squamous Epith Cells 0-5 SEEN Urine Bacteria 0 SEEN Urine Mucus 0 SEEN Assessment/Plan All Active Problems (Last Updated 12/20/17 @ 12:03 by Lashaun Horton) Stroke-like symptoms (Acute) Palpitations (Acute) Ulcer of left lower leg (Resolved) Ulcer of right lower leg (Resolved) The patient is a 68 year old F with a significant history of CAD status post stent; PAD status post stent; and CHF who presented to the emergency department because she lost her balance and fell 2 days in a row; in with blurry vision; and difficult to get her words out consistent with strokelike symptoms. Strokelike symptoms NINDS NIH Scale was 0 CT of the head was unremarkable. CT head was independently reviewed. I agree with radiologist interpretation. -Check Hba1c, Lipid level Physical therapy, occupational therapy and speech therapy to work with patient. N.p.o. until bedside swallow eval. Daily aspirin continued. High intensity statin continued No need for permissive hypertension as her symptoms began over 48 hours. MRI/MRAM of head; brain; and neck. Echocardiogram ordered. Check vitamin B12 ANDRIY: On presentation her creatinine was 1.81. Review of old records show that her creatinine on 12/01/2017 was 1.19. BUN over creatinine is 18.8. Will assume prerenal at this point and will hydrate with IV fluids. Avoid nephrotoxins Trend BMP. Left elbow laceration Secondary to fall Dry dressing. CAD status post stent Ranexa; metoprolol and aspirin continued Chronic pain Acetaminophen with codeine as needed continued CHF Echocardiogram at [facility] on 03/08/2017 showed normal systolic function and normal diastolic function. We will hold Lasix and give gentle IV hydration because of ANDRIY Hypertension On presentation blood pressure was not within goal. Metoprolol continued Hypothyroidism Synthroid continued DVT prophylaxis Subcutaneous aspirin ordered. Code Visit OBSV E&M: 11863 Initial observation care L3
[2019-02-10 23:49] VITALS: BP 132/42; PULSE 59; RESP 16; TEMP 36.5; O2SAT 100; BMI 24.2
--- NOTE | 2019-02-10 23:51 | ECHOD_ITS ---
Reason For Study: TIA/CVA Procedure This was a 2D Doppler, Color Flow transthoracic echocardiogram. Exam performed portable in patient room. Left Ventricle Normal size and thickness. Left ventricular systolic function is normal. The estimated ejection fraction is 65 %. Bubble study negative. Right Ventricle Normal right ventricle. Atria Normal left atrium. Normal right atrium. Mitral Valve The mitral valve is structurally normal. No prolapse or stenosis seen. No mitral valve insufficiency. Tricuspid Valve Right ventricular systolic pressure estimated to be 40 mmHg. Trivial tricuspid valve insufficiency. Aortic Valve Trisinus/trileaflet aortic valve. There is no aortic stenosis. No aortic valve insufficiency. Pulmonic Valve The pulmonic valve is not well visualized. Great Vessels Normal ascending aorta. Pericardium/Pleural No pericardial effusion. Medication Performed a rapid injection of agitated mix of 9 cc saline and 1cc air to assess for atrial septal defect. MMode/2D Measurements & Calculations LVIDd: 4.3 cm IVSd: 0.94 cm LVOT diam: 1.9 cm LVIDs: 2.4 cm LVPWd: 0.85 cm RVDd: 3.3 cm FS: 44.4 % LVOT area: 2.7 cm2 Ao root diam: 2.8 cm LAV(MOD-bp): 48.1 ml LVAd ap4: 23.8 cm2 LAV(MOD-bp) Indexed: 29.2 ml/m2 EDV(MOD-sp4): 64.3 ml LAV(MOD-sp2): 61.6 ml EDV(sp4-el): 67.5 ml LAV(MOD-sp4): 37.8 ml LVAs ap4: 11.1 cm2 ESV(MOD-sp4): 17.9 ml ESV(sp4-el): 18.4 ml EF(MOD-sp4): 72.2 % EF(sp4-el): 72.8 % SV(MOD-sp4): 46.5 ml SV(sp4-el): 49.1 ml LA A4 area: 15.6 cm2 LA dimension(2D): 4.3 cm RA A4 area: 10.0 cm2 Doppler Measurements & Calculations MV E max wilfred: 100.8 cm/sec Lat Peak E' Wilfred: 8.1 cm/sec Med Peak E' Wilfred: 5.4 cm/sec MV A max wilfred: 106.4 cm/sec E/E' lat: 12.5 E/E' med: 18.8 MV E/A: 0.95 Ao V2 max: 248.4 cm/sec LV V1 max: 108.3 cm/sec SV(LVOT): 79.3 ml Ao max P.8 mmHg LV V1 max P.7 mmHg Ao V2 mean: 162.6 cm/sec LV V1 mean P.5 mmHg Ao mean P.9 mmHg LV V1 mean: 75.9 cm/sec Ao V2 VTI: 59.4 cm LV V1 VTI: 29.2 cm LUCIO(I,D): 1.3 cm2 LUCIO(V,D): 1.2 cm2 PA V2 max: 79.1 cm/sec TR max wilfred: 282.7 cm/sec TR max P.0 mmHg Interpretation Summary Left ventricular systolic function is normal. The estimated ejection fraction is 65 %. Bubble study negative Trivial tricuspid valve insufficiency. Ordering Physician: Yasmani Teixeira Referring Physician: Rigoberto Maher Performed By: Carito John RDCS, RVT
[2019-02-10 23:55] VITALS: BMI 24.2
[2019-02-11] VITALS (9 sets, daily range): BP systolic 93–110; BP diastolic 36–58; PULSE 55–62; RESP 14–18; TEMP 36.6–36.8; O2SAT 98–100; BMI 24.2
[2019-02-11] MEDS: 0.9% Normal Saline 1,000 ML 75 ML IV (01:00)
[2019-02-11] MEDS: Montelukast 10 MG Tablet PO ×2 (01:37→11:23)
[2019-02-11] MEDS: Metoprolol Tartrate 25 MG Tablet 37.5 MG PO (01:37)
[2019-02-11] MEDS: Ranolazine 500 MG Tablet 1000 MG PO ×2 (01:37→11:23)
[2019-02-11] MEDS: Levothyroxine 88 MCG Tablet PO (06:10)
[2019-02-11 08:26] LABS: Anion Gap 8 (5-15); BUN 29 mg/dL (7-18); BUN/Creat Ratio 17.6 RATIO (10-20); Calcium,Total 8.9 mg/dL (8.5-10.1); Chloride 104 mmol/L (98-107); Cholesterol 127 mg/dL (200); Creatinine, Serum 1.65 mg/dL (0.55-1.02); EST Glomerular Filtration Rate 33 mL/min (>60); Est Glom Filt Rate - Afr Amer 40 mL/min (>60); Estimated Creatinine Clearance 28.96 ml/min; Glucose 81 mg/dL (74-106); High Density Lipoprotein 59 mg/dL; Potassium 4.5 mmol/L (3.5-5.1); Sodium Level 136 mmol/L (136-145); Triglycerides 116 mg/dL; Very Low Density Lipoprotein 23 mg/dL (5-40)
[2019-02-11] MEDS: Aspirin E.C. 81 MG Tablet PO (08:47)
--- NOTE | 2019-02-11 09:30 | MRI_ITS ---
STUDY: MRA NECK WITHOUT CONTRAST REASON FOR EXAM: Female, 68 years old. CVA and speech difficulty TECHNIQUE: Source images were obtained, MIPs were performed. The study was performed unenhanced. COMPARISON: None. FINDINGS: RIGHT CAROTID ARTERIES: Normal right common carotid artery (CCA). Normal right common carotid bulb. Normal origin of the right internal carotid (ICA) artery without a hemodynamically significant stenosis. Normal visualized cervical portion of the right internal carotid artery. Normal origin of the right external carotid artery (ECA). LEFT CAROTID ARTERIES: Normal left common carotid artery (CCA). Normal left common carotid bulb. Normal origin of the left internal carotid (ICA) artery without a hemodynamically significant stenosis. Normal visualized cervical portion of the left internal carotid artery. Normal origin of the left external carotid artery (ECA). VERTEBRAL ARTERIES: Normal antegrade flow within the bilateral vertebral artery without a hemodynamically significant stenosis. MRI/MRA Neck without Contrast IMPRESSION: Normal bilateral cervical carotid and vertebral arteries. Electronically Signed: Mu Evans MD at 11:18 EDT Tel , Service support ,
--- NOTE | 2019-02-11 09:30 | MRI_ITS ---
STUDY: MRA OF THE HEAD WITHOUT CONTRAST REASON FOR EXAM: Female, 68 years old. CVA, speech difficulty, balance issues TECHNIQUE: 3-D [id number] (TOF) imaging was performed with MIPs. The study was performed unenhanced. COMPARISON: MRI same day FINDINGS: Normal bilateral petrous carotid arteries. Normal right cavernous carotid artery with a normal supraclinoid bifurcation. Normal left cavernous carotid artery with a normal supraclinoid bifurcation. Normal right A1 segments of the anterior cerebral artery. Normal left A1 segments of the anterior cerebral artery. Normal intact anterior communicating artery (ACOM). Normal bilateral A2 segments of the anterior cerebral arteries. Normal right M1 and M2 segments of the middle cerebral arteries, with a normal M1 bifurcation. Normal left M1 and M2 segments of the middle cerebral arteries, with a normal M1 bifurcation. Normal right posterior communicating artery (PCOM). Normal left posterior communicating artery (PCOM). Normal bilateral vertebral arteries. Normal basilar artery with a normal basilar bifurcation. The visualized bilateral superior cerebellar (SCA) arteries are normal. Normal bilateral P1, P2 and visualized P3 segments of the posterior cerebral arteries. There is no demonstrated aneurysm of the [place] of [place]. There is no major vessel occlusion or hemodynamically significant stenosis. There is no demonstrated abnormality of the visualized brain. MRI/MRA Head ONLY without Contrast IMPRESSION: No MRA evidence of significant intracranial arterial pathology. Electronically Signed: Mu Evans MD at 11:06 EDT Tel , Service support ,
--- NOTE | 2019-02-11 09:30 | MRI_ITS ---
STUDY: MRI BRAIN WITHOUT CONTRAST REASON FOR EXAM: Female, 68 years old. CVA and balance issues TECHNIQUE: Standardized multiplanar fat and water weighted pulse sequences were obtained. COMPARISON: CT 02/10/2019 FINDINGS: Normal size of the ventricles and extra-axial spaces for the patient's age. There are a limited number of small white matter hyperintensities, distributed throughout the deep white matter tracts of the cerebral hemispheres, consistent with mild chronic white matter ischemic changes. Normal bilateral basal ganglia. Normal thalami. There is no extra-axial fluid accumulation. Normal flow voids within the major intracranial circulation suggesting patency by spin echo criteria. Empty sella. Normal tectal plate and pineal gland. Normal midbrain, segun and medulla. Normal cerebellum. Normal basal cisterns. Normal bilateral temporal bones. Normal bilateral internal auditory canals. There are bilateral ocular lens implants with otherwise normal intraorbital contents. Normal visualized paranasal sinuses. Normal calvarium and skull base. Normal visualized soft tissue structures. Normal visualized upper cervical spine. MRI/Brain without Contrast IMPRESSION: No evidence of acute infarct or hemorrhage. Empty sella. Mild microangiopathic white matter disease. Electronically Signed: Mu Evans MD at 11:10 EDT Tel , Service support ,
--- NOTE | 2019-02-11 11:21 | DCINST_ITS ---
- Discharge Diagnoses Current Active Problems: Current Active and Chronic Problems (Last Reviewed 02/11/19 @ 09:24 by Yasmani Teixeira MD) Stroke-like symptoms (Acute) You will use the following diet at home:: Cardiac Discharge Activity: May Not Drive Call your doctor if you observe: Fever of 101 or Higher, Numbness or Tingling, Inability to urinate, Inability to have a bowel movement, Shortness of breath, Dizziness, Fainting spells, Swelling in the ankles, Chest pain, Increased palpitations (irregular heartbeat), Calf discomfort, Uncontrolled pain Additional Instructions: Advised home physical therapy. Allergies/Adverse Reactions: Allergies colesevelam HCl [From WelChol] Allergy (Verified 02/10/19 16:24) Unknown metolazone [From Zaroxolyn] Allergy (Verified 02/10/19 16:24) Unknown nitrofurantoin macrocrystalline [From Macrodantin] Allergy (Verified 02/10/19 16:24) Unknown Penicillins Allergy (Verified 02/10/19 16:24) Unknown PASSED OUT pravastatin sodium [From Pravachol] Allergy (Verified 02/10/19 16:24) Unknown Medications to take at Discharge Montelukast [Singulair] 10 mg PO DAILY 06/19/15 Nitroglycerin (INPATIENT USE) [Nitrostat] 0.4 mg SUBLINGUAL Q5M PRN 06/19/15 Ranolazine [Ranexa] 1,000 mg PO BID 06/19/15 Albuterol Inhaler [Ventolin Hfa] 1 puff INHALATION Q4H PRN PRN 05/01/16 Omeprazole 40 mg PO DAILY 05/01/16 Acetaminophen with Codeine [Tylenol with Codeine #3 Tablet] 1 ea PO Q8H PRN PRN #7 tab 11/05/17 Aspirin E.C. [Ecotrin] 81 mg PO DAILYCM tablet 11/05/17 Ipratropium/Albuterol Sulfate [Duoneb] 3 ml INHALATION Q4H PRN PRN ampul.neb 11/05/17 Polyethylene Glycol 3350 [Miralax] 17 gm PO DAILY packet 11/05/17 Psyllium [Metamucil] 1 packet PO DAILY packet 11/05/17 Senna/Docusate Sodium [Senokot-S] 2 tab PO BID tab 11/05/17 levothyroxine 100 mcg tablet 88 mcg PO QDAY 12/20/17 Hydroxyzine HCl 25 mg PO Q6H PRN PRN 02/10/19 Linaclotide [Linzess] 72 mcg PO DAILY 02/10/19 Rosuvastatin Calcium 20 mg PO DAILY 02/10/19 Temazepam 30 mg PO QHS PRN 02/10/19 Furosemide 40 mg PO DAILY #0 tab 02/11/19 Metoprolol Tartrate [Lopressor (beta marvin)] 25 mg PO BID tab 02/11/19 Spironolactone 25 mg PO DAILY #0 02/11/19 Primary Care Physician: Rigoberto Maher MD [Primary Care Provider] - Please follow up with your Primary Care Physician in: In 1 to 2 weeks. Need BMP for Cr in 1 week and follow with PCP Test Results: Test results from this visit will be discussed in further detail at your follow- up appointment, if applicable.
[2019-02-11 11:22] LABS: Hemoglobin A1c 5.3 % (4.2-6.3)
[2019-02-11] MEDS: Pantoprazole Sodium 40 MG Tablet PO (11:23)
--- NOTE | 2019-02-11 12:20 | DS.PCM_ITS ---
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) PCI/stent of the distal CX; PCI/ALEXANDRO to prox RCA 08/19/06 Peripheral neuropathy (Chronic) Hyperlipidemia (Chronic) Asthma (Chronic) Hypertension (Chronic) PAD (peripheral artery disease) (Chronic) Hospital Course and Treatment Imaging Results: 02/11/19 09:30 Brain without Contrast [MRI] Routine MRA Head ONLY without Contrast [MRI] Routine MRA Neck without Contrast [MRI] Routine Operations: None Summary of Care Provided: [] The patient is a 68 year old F with a significant history of CAD status post stent; PAD status post stent; and CHF who presented to the emergency department because recurrent fall twice last to continue 2 days in a stability and blurry vision. She had difficult to get her words out consistent with strokelike symptoms. Acute stroke ruled out. Patient was admitted in PCU. CT head was unremarkable. MRI brain does not show acute stroke/infarct or acute intracranial change. MRA head and neck did not show significant stenosis or occlusion of vessels. Echo was done reported as EF 65% with negative bubble study. Normal right ventricle. Normal right and left atria. No significant valvular abnormality, RVSP 40 mmHg with trivial TR. NINDS NIH Scale was 0 A1c 5.3. Fasting lipid profile LDL 45, HDL 59, total cholesterol 116. Physical therapy, occupational therapy and speech therapy is done. Physical therapy recommended inpatient or home with home physical therapy. Patient chose home physical therapy. Continue daily aspirin and high intensity statin. 12 is pending. ANDRIY, possible prerenal/diuretics Lasix and spironolactone.: On presentation, BUN/creatinine 34/1.8. Baseline creatinine on 12/01/2017 was 1.19. With IV fluid creatinine improved to 1.65, BUN 29. No contrast was given. Patient Lasix was held advised to hold for further 5 days after day of discharge. Hold spironolactone for 2 more days. Patient was advised outpatient BMP in 1 week and follow with PCP. Left elbow laceration with fragile/skin atrophy: I think patient might have taken steroid as she has history of rheumatoid arthritis. Secondary to fall Dry dressing. CAD status post stent Ranexa; metoprolol and aspirin continued Chronic pain Acetaminophen with codeine as needed continued CHF Echocardiogram at [facility] on 03/08/2017 showed normal systolic function and normal diastolic function. 2D echo shows EF 65% with normal right and left atria. Patient advised to hold Lasix for 5 days and then slowly taper off as an outpatient in guidance of PCP if she does not reaccumulate fluid Hypertension On presentation blood pressure was not within goal. Metoprolol continued Hypothyroidism Synthroid continued DVT prophylaxis Subcutaneous aspirin ordered. Discharge medication reconciliation done. Discharge follow-up instructions completed. Discharge process discussed with the patient and all questions were answered to patient's satisfaction.. Total time spent, exact 35 minutes on discharge meds reconciliation, examination, review of imaging and blood test and discussion with the patient on follow-up instructions. Microbiology Past 72 Hours 02/10/19 17:36 Urine, Clean Catch Urine Culture - Preliminary Culture exhibits no growth. Laboratory Results 02/10/19 05:36: Hemoglobin A1c 5.3 02/10/19 17:36: WBC 6.8, RBC 3.42 L, Hgb 10.5 L, Hct 31.4 L, MCV 91.8, MCH 30.7, MCHC 33.4, RDW 13.0, RDW Differential 42.3, Plt Count 231, MPV 9.4, Immature Gran % (Auto) 0.900, Neut % (Auto) 54.8, Lymph % (Auto) 28.6, [place] % (Auto) 9.5, Eos % (Auto) 5.9 H, Baso % (Auto) 0.3, Absolute Neuts (auto) 3.7, Absolute Lymphs (auto) 1.95, Total Counted Not Reportable 02/10/19 17:36: Sodium 132 L, Potassium 4.7, Chloride 101, Carbon Dioxide 27.0, Anion Gap 4 L, BUN 34 H, Creatinine 1.81 H, Estim Creat Clear Calc 26.40, Est GFR (MDRD) Af Amer 36 L, Est GFR (MDRD) Non-Af 30 L, BUN/Creatinine Ratio 18.8, Glucose 82, Calcium 9.2 02/10/19 17:36: Urine Color Yellow, Urine Clarity Clear, Urine pH 6.5, Ur Specific [place] 1.010, Urine Protein Negative, Urine Glucose (UA) Normal, Urine Ketones Negative, Urine Occult Blood Negative, Urine Nitrite Negative, Urine Bilirubin Negative, Urine Urobilinogen Normal, Ur Leukocyte Esterase Negative, Urine RBC 0 SEEN, Urine WBC 0 SEEN, Ur Squamous Epith Cells 0-5 SEEN, Urine Bacteria 0 SEEN, Urine Mucus 0 SEEN 02/11/19 07:53: Vitamin B12 Pending 02/11/19 07:53: Sodium 136, Potassium 4.5, Chloride 104, Carbon Dioxide 24.0, Anion Gap 8, BUN 29 H, Creatinine 1.65 H, Estim Creat Clear Calc 28.96, Est GFR (MDRD) Af Amer 40 L, Est GFR (MDRD) Non-Af 33 L, BUN/Creatinine Ratio 17.6, Glucose 81, Calcium 8.9, Triglycerides 116, Cholesterol 127, LDL Cholesterol 45, VLDL Cholesterol 23, HDL Cholesterol 59 Clinical Impression(s) from Imaging Studies Brain CT 02/10/19 19:42 IMPRESSION: No acute intracranial process. Brain MRI 02/11/19 09:30 IMPRESSION: No evidence of acute infarct or hemorrhage. Empty sella. Mild microangiopathic white matter disease. Head MRA 02/11/19 09:30 IMPRESSION: No MRA evidence of significant intracranial arterial pathology. Neck MRA 02/11/19 09:30 IMPRESSION: Normal bilateral cervical carotid and vertebral arteries. Subjective: Seen and examined. Patient has multiple comorbidities including rheumatoid arthritis. Patient has very thin paperlike his skin which easily tears/pills of even with ultrasound probe for echo. Patient has gait instability/dise quilibrium. Also has bilateral lower leg weakness and recurrent fall twice in the last 2 days. - Physical Exam General: Alert, Oriented x3, Cooperative HEENT: Atraumatic, PERRLA, EOMI, Normocephalic Oral: Moist Mucosa Neck: Supple, No JVD, Negative Carotid Bruits Lungs: No rhonchi, No wheeze, No rales, Diminished - Air entry is diminished bilaterally Cardiovascular: Regular rate, No murmurs Abdomen: Bowel Sounds Present, Soft, Non Tender, Non-Distended Extremities: No edema, Capillary Refill Less than 3 Seconds Skin: Skin Tear - ED skin tear. Diffuse skin bulges in both upper and lower extremities. Musculoskeletal: No Tenderness to Palpation of Joints or Extremities, Arthritic Changes, Muscle Wasting Lymphatic: No Cervical, Supraclavicular, or Inguinal Adenopathy Neurological: Cranial nerves II-XII grossly intact, Deep Tendon Reflexes 2+/4 and Symmetrical, Neuro grossly intact, - - Chronic bilateral lower extremity weakness, left more than right. Psych/Mental Status: Normal Affect, Appropriate Vital Signs Temp Pulse Resp BP Pulse Ox 97.8 F 56 L 14 110/58 L 100 02/11/19 11:12 02/11/19 11:26 02/11/19 11:12 02/11/19 11:26 02/11/19 11:12 Oxygen Delivery Method Room Air Weight: 141 lb 1.533 oz Body Mass Index (BMI) 24.2 Intake and Output for Last 24 Hours 02/09/19 02/10/19 02/11/19 23:59 23:59 23:59 Intake Total 1482 / 1482 Balance 1482 / 1482 Laboratory Tests Past 24 Hrs 02/10/19 02/10/19 02/10/19 05:36 17:36 17:36 WBC 6.8 RBC 3.42 L Hgb 10.5 L Hct 31.4 L MCV 91.8 MCH 30.7 MCHC 33.4 RDW 13.0 RDW Differential 42.3 Plt Count 231 MPV 9.4 Immature Gran % (Auto) 0.900 Neut % (Auto) 54.8 Lymph % (Auto) 28.6 [place] % (Auto) 9.5 Eos % (Auto) 5.9 H Baso % (Auto) 0.3 Absolute Neuts (auto) 3.7 Absolute Lymphs (auto) 1.95 Total Counted Not Reportable Sodium 132 L Potassium 4.7 Chloride 101 Carbon Dioxide 27.0 Anion Gap 4 L BUN 34 H Creatinine 1.81 H Estim Creat Clear Calc 26.40 Est GFR (MDRD) Af Amer 36 L Est GFR (MDRD) Non-Af 30 L BUN/Creatinine Ratio 18.8 Glucose 82 Hemoglobin A1c 5.3 Calcium 9.2 Triglycerides Cholesterol LDL Cholesterol VLDL Cholesterol HDL Cholesterol Vitamin B12 Urine Color Urine Clarity Urine pH Ur Specific [place] Urine Protein Urine Glucose (UA) Urine Ketones Urine Occult Blood Urine Nitrite Urine Bilirubin Urine Urobilinogen Ur Leukocyte Esterase Urine RBC Urine WBC Ur Squamous Epith Cells Urine Bacteria Urine Mucus 02/10/19 02/11/19 02/11/19 17:36 07:53 07:53 WBC RBC Hgb Hct MCV MCH MCHC RDW RDW Differential Plt Count MPV Immature Gran % (Auto) Neut % (Auto) Lymph % (Auto) [place] % (Auto) Eos % (Auto) Baso % (Auto) Absolute Neuts (auto) Absolute Lymphs (auto) Total Counted Sodium 136 Potassium 4.5 Chloride 104 Carbon Dioxide 24.0 Anion Gap 8 BUN 29 H Creatinine 1.65 H Estim Creat Clear Calc 28.96 Est GFR (MDRD) Af Amer 40 L Est GFR (MDRD) Non-Af 33 L BUN/Creatinine Ratio 17.6 Glucose 81 Hemoglobin A1c Calcium 8.9 Triglycerides 116 Cholesterol 127 LDL Cholesterol 45 VLDL Cholesterol 23 HDL Cholesterol 59 Vitamin B12 Pending Urine Color Yellow Urine Clarity Clear Urine pH 6.5 Ur Specific [place] 1.010 Urine Protein Negative Urine Glucose (UA) Normal Urine Ketones Negative Urine Occult Blood Negative Urine Nitrite Negative Urine Bilirubin Negative Urine Urobilinogen Normal Ur Leukocyte Esterase Negative Urine RBC 0 SEEN Urine WBC 0 SEEN Ur Squamous Epith Cells 0-5 SEEN Urine Bacteria 0 SEEN Urine Mucus 0 SEEN Discharge Activity: May Not Drive Call your doctor if you observe: Fever of 101 or Higher, Numbness or Tingling, Inability to urinate, Inability to have a bowel movement, Shortness of breath, Dizziness, Fainting spells, Swelling in the ankles, Chest pain, Increased palpitations (irregular heartbeat), Calf discomfort, Uncontrolled pain Home Medications: Medications to take at Discharge Montelukast [Singulair] 10 mg PO DAILY 06/19/15 Nitroglycerin (INPATIENT USE) [Nitrostat] 0.4 mg SUBLINGUAL Q5M PRN 06/19/15 Ranolazine [Ranexa] 1,000 mg PO BID 06/19/15 Albuterol Inhaler [Ventolin Hfa] 1 puff INHALATION Q4H PRN PRN 05/01/16 Omeprazole 40 mg PO DAILY 05/01/16 Acetaminophen with Codeine [Tylenol with Codeine #3 Tablet] 1 ea PO Q8H PRN PRN #7 tab 03/16/18 Aspirin E.C. [Ecotrin] 81 mg PO DAILYCM tablet 11/05/17 Ipratropium/Albuterol Sulfate [Duoneb] 3 ml INHALATION Q4H PRN PRN ampul.neb 11/05/17 Polyethylene Glycol 3350 [Miralax] 17 gm PO DAILY packet 11/05/17 Psyllium [Metamucil] 1 packet PO DAILY packet 11/05/17 Senna/Docusate Sodium [Senokot-S] 2 tab PO BID tab 11/05/17 levothyroxine 100 mcg tablet 88 mcg PO QDAY 12/20/17 Hydroxyzine HCl 25 mg PO Q6H PRN PRN 02/10/19 Linaclotide [Linzess] 72 mcg PO DAILY 02/10/19 Rosuvastatin Calcium 20 mg PO DAILY 02/10/19 Temazepam 30 mg PO QHS PRN 02/10/19 Furosemide 40 mg PO DAILY #0 tab 02/11/19 Metoprolol Tartrate [Lopressor (beta marvin)] 25 mg PO BID tab 02/11/19 Spironolactone 25 mg PO DAILY #0 02/11/19 Primary Care Physician: Rigoberto Maher MD [Primary Care Provider] - Please follow up with your Primary Care Physician in: In 1 to 2 weeks. Need BMP for Cr in 1 week and follow with PCP Medical Necessity - Tobacco Use Smoking Status: Former smoker Meaningful Use Info Meaningful Use Diagnoses (Choose all that apply): None applicable Code Visit OBSV E&M: 82342 Observation care discharge
--- NOTE | 2019-02-11 12:27 | CASEMGMT ---
Therapy is recommending SNF vs HHC for pt at discharge. This RN CM to room to discuss discharge plan with pt/ at this time. All options discussed at this time: SNF, HHC, and OP therapy and pt/ decided on OP therapy at [facility] at this time. Order for OP therapy faxed to [facility] at this time and original to pt at this time. Pt/ state no further questions/concerns/needs at this time. [place]en ADAM KAHN
[2019-02-13 09:31] LABS: Vitamin B12 235 pg/mL (211-911)
== END 2019-02-11 12:20 | disposition home or self-care (01) ==
LOC: ED 16:45 → PCU 22:57
PROVIDERS: Admitting Provider Hospitalist; Emergency Provider Emergency Medicine; Family Provider Family Medicine; PCP Family Medicine; Referring Provider Hospitalist; Visit Provider Internal Medicine
DX: N17.9 Acute kidney failure, unspecified (principal); I25.10 Atherosclerotic heart disease of native coronary artery without angina pectoris; I13.0 Hypertensive heart and chronic kidney disease with heart failure and stage 1 through stage 4 chronic kidney disease, or unspecified chronic kidney disease; G89.29 Other chronic pain; I50.9 Heart failure, unspecified; R30.0 Dysuria; S51.012D Laceration without foreign body of left elbow, subsequent encounter; W19.XXXD Unspecified fall, subsequent encounter; H53.8 Other visual disturbances; J45.909 Unspecified asthma, uncomplicated; N18.9 Chronic kidney disease, unspecified; G62.9 Polyneuropathy, unspecified; M06.9 Rheumatoid arthritis, unspecified; E78.5 Hyperlipidemia, unspecified; I73.9 Peripheral vascular disease, unspecified; E03.9 Hypothyroidism, unspecified; Z95.5 Presence of coronary angioplasty implant and graft; Z79.899 Other long term (current) drug therapy; Z79.82 Long term (current) use of aspirin; Z86.718 Personal history of other venous thrombosis and embolism; Z87.891 Personal history of nicotine dependence
CPT/HCPCS: 36415; 70450; 70544; 70547; 70551; 80048; 80061; 81001; 82607; 83036; 85025; 87086; 87088; 92610; 93005; 93306; 96360; 96361; 97161; 97166; 99218; 99284; J7030; A4216; G0378

== ENCOUNTER 2019-02-24 17:44 | Emergency (ER) | payer MEDICARE, OTHER, SELFPAY ==
[2019-02-11 13:00] VITALS: BMI 24.2
[2019-02-24 17:44] VITALS: BP 138/63; PULSE 68; RESP 18; TEMP 37; O2SAT 100; BMI 23.1
--- NOTE | 2019-02-24 18:08 | ED.VISSUMM ---
- ER Visit Summary Date of Service: 02/24/19 Chief Complaint: Right hip injury History of Present Illness: The patient is a 68 F who states that approximately 4 hours prior to arrival at around 1400 hrs. today her legs got mixed up and she fell down onto her right hip. She states she is barely able to walk. She notes abrasions and skin tears to the right forearm and to the right side of her face. No loss of conscious. No nausea vomiting. She is not on anticoagulants. Physical Examination: Afebrile vital signs stable Gen: Well-nourished well-developed Head: Normocephalic professional abrasions to the right maxillary region and right side of her nose. Eyes: Perrl EOMI ENT: TMs clear no rhinorrhea moist mucous membranes no septal hematoma Neck: Supple no lymphadenopathy no JVD nontender CVS: Regular rate rhythm no murmurs normal S1-S2 Respiratory: No distress clear to auscultation bilaterally chest nontender Abdomen: Soft nontender nondistended normal bowel sounds no masses Back: Nontender Extremity: Tender palpation over the right greater trochanter. Pain over the greater trochanter with logroll. Skin: Tubal skin tears to the posterior right forearm. Neuro: alert orientated ?3 CN II-XII intact normal strength sensation reflexes gait cerebellar Psych: Normal affect normal mood Test Results: X-rays of the right hip and pelvis were obtained. No fractures were noted Emergency Department Course and Treatment: The skin tears were smoothed out and dressed. Wound care discussed with patient. Patient has a walker I encouraged her to use it at home. I will write for a few [place]. Impression: 1. Fall 2. Right hip contusion 3. Multiple right forearm skin tears 4. Facial abrasion This note was generated with [employer] dictation software. It may contain incorrect words, spelling, and punctuation that were not noted in review of the chart prior to signing ED Disposition - Plan for ED Patient: Disposition: Home or Assisted Living Instructions: Hip Contusion Prescriptions: Hydrocodone Bitart/Apap 5-325 [[place] 5MG-325MG] 1 tab PO Q6H PRN PRN 3 Days #12 tab PRN Reason: Pain Prescription Printed Referrals: Rigoberto Maher MD [Primary Care Provider] - 10-14 Days if not better
--- NOTE | 2019-02-24 18:15 | RAD_ITS ---
STUDY: X-RAY - PELVIS AND RIGHT HIP REASON FOR EXAM: Female, 68 years old. Pain TECHNIQUE: 3 views of the pelvis and hip. COMPARISON: None. FINDINGS: There is no acute fracture or dislocation. Lumbosacral fusion is present. No aggressive appearing osseous lesions are present. Soft tissues are unremarkable. RAD/HIP, UNI W/ Pelvis 2-3 Views IMPRESSION: No acute fracture or dislocation. Electronically Signed: Brien Reddy, at 18:38 EDT Tel , Service support ,
[2019-02-24 18:45] VITALS: BP 153/63; PULSE 67; RESP 22; O2SAT 96
[2019-02-24] MEDS: HYDROcodone Bitartrate/Apap 5/325 Tablet PO (19:27)
[2019-02-24 19:31] VITALS: BP 132/72; PULSE 67; RESP 18; O2SAT 100
== END 2019-02-24 19:37 | disposition home or self-care (01) ==
PROVIDERS: Emergency Provider Emergency Medicine; Family Provider Family Medicine; PCP Family Medicine
DX: S70.01XA Contusion of right hip, initial encounter (principal); S51.811A Laceration without foreign body of right forearm, initial encounter; S00.31XA Abrasion of nose, initial encounter; S00.81XA Abrasion of other part of head, initial encounter; I25.10 Atherosclerotic heart disease of native coronary artery without angina pectoris; J45.909 Unspecified asthma, uncomplicated; I73.9 Peripheral vascular disease, unspecified; I11.0 Hypertensive heart disease with heart failure; I50.9 Heart failure, unspecified; Z87.891 Personal history of nicotine dependence; Z79.51 Long term (current) use of inhaled steroids; Z79.82 Long term (current) use of aspirin; Z79.899 Other long term (current) drug therapy; W18.30XA Fall on same level, unspecified, initial encounter; Y93.01 Activity, walking, marching and hiking; Y92.89 Other specified places as the place of occurrence of the external cause; Y99.8 Other external cause status
CPT/HCPCS: 73502; 99283

== ENCOUNTER 2019-03-03 07:00 | Outpatient (RCR) | payer MEDICARE, OTHER, SELFPAY ==
[2019-02-11 13:00] VITALS: BMI 24.2
--- NOTE | 2019-02-14 15:06 | HP.PTEVAL_ITS ---
Patient's Visit Information MARCOS SHELTON is a 68 year old F referred to Physical Therapy by Rigoberto Maher MD with a diagnosis of Debility. Date of Evaluation: 02/14/19 Physical Therapist: Nestor Clayton PT, ATC - Visit Plan Frequency: 2-3x /Week Duration: 4-6 Weeks Plan: B LE strengthening, balance and proprio, core strengthening, gait training, nustep, and HEP - Subjective Findings: Pt reports she had LB surgery in July 2018 and notes she has had bad balance since that date. Pt reports she has been falling throughout that time, nting 2 falls just last week. Pt reports she had been using a cane, but no w uses a rollator secondary to the falls. Pt reports she had PT approximately one month ago for the same problem, and made significant gains with her balance. However, once she was discharged, she immediately began to regress. Pt can feel her feet ok, but notes she does have peripheral neuropathy. Pt is not in any pain this date. Pt feels like she is very weak and debilitated as well. - Objective Neuro: B LE sensation is WNL to light touch. B patellar reflex= 2/3. LE MMT: B LE MMT is grossly 3+/5 throughout. ROM: B LE's are WNL. Gait: Pt ambulates with the use of a rollator. Pt uses a very slow cadance. Balance: Pt is unable to DLS EO for greater than 20 seconds until losing balance and needing to hold on to the table. Pt has poor banance. - Goals Goal 1:: Increase B LE strength x 1 grade to aid with stair negotiation Goal Time Frame: 4-6 Weeks Goal 2:: Increase balance x 1 grade to aid with preventing future falls Goal Time Frame: 4-6 Weeks Goal 3:: Pt will be able to ambulate 1000' with LRD to promote I with community ambulation Goal Time Frame: 4-6 Weeks Goal 4:: I with HEP Goal Time Frame: 4-6 Weeks - Rehabilitation Potential Physical Therapy Diagnosis: Pt has weakness, poor balance, and a Hx of falls secondary to debilitation Rehabilitation Potential: Good - Anticipated Interventions Patient/Client Instruction: Educate patient on: Condition, Plan of Care For the Purpose of:: To improve self management Therapeutic Exercise to Include: Strength training, Endurance training, Balance training, Body mechanics, Gait and locomotor training, Dynamic Lumbar Stabilization For the Purpose of:: To improve muscle performance and motor function, To improve performance and independence with ADL's, To improve ability of physical actions for home/community/work/leisure Thank you for the opportunity to evaluate your patient. For Medicare and Medicare HMO plans, please review the plan of care and approve it. It will need to be FAXED BACK to us at [phone] for Medicare purposes. For Medicare only, by signing this I certify the plan of care. Please let me know if there are questions or concerns regarding this plan of care. Physician Signature: Date:
--- NOTE | 2019-05-17 12:56 | HP.PT.NRP ---
HP - Discharge Summary (1) - Patient Information MARCOS SHELTON was seen in my office for initial evaluation on 02/14/19. The following Plan of Care was established for this patient: Initial Frequency: 2-3x /Week Initial Duration: 4-6 Weeks - Anticipated Interventions Patient/Client Instruction: Educate patient on: Condition, Plan of Care For the Purpose of:: To improve self management Therapeutic Exercise to Include: Strength training, Endurance training, Balance training, Body mechanics, Gait and locomotor training, Dynamic Lumbar Stabilization For the Purpose of:: To improve muscle performance and motor function, To improve performance and independence with ADL's, To improve ability of physical actions for home/community/work/leisure This patient was last seen in our office . Pertinent comments regarding their Physical therapy will appear below: Pt was treated for 3 PT visits for his general debility through the date of 03/03/19. Pt has not returned through todays date and is therefore discontinued at this time. At this point I will be discontinuing this patient from physical therapy. I would be happy to see this patient again in the future if found appropriate by the physician. Thank you! Nestor Clayton, PT, ATC
== END 2019-03-03 19:00 | disposition home or self-care (01) ==
LOC: PT 07:00
PROVIDERS: Family Provider Family Medicine; PCP Family Medicine; Visit Provider Family Medicine
DX: R26.89 Other abnormalities of gait and mobility (principal); I50.9 Heart failure, unspecified; G62.9 Polyneuropathy, unspecified
CPT/HCPCS: 97110; 97161

== ENCOUNTER 2019-03-08 19:22 | Inpatient (IN) | payer MEDICARE, OTHER, SELFPAY ==
[2019-03-08 19:25] VITALS: BP 126/60; PULSE 70; RESP 17; TEMP 37.2; O2SAT 99; BMI 26.2
--- NOTE | 2019-03-08 19:43 | ED.DCSUM_ITS ---
- ER Visit Summary Date of Service: 03/08/19 Chief Complaint: Right hip pain History of Present Illness: The patient is a 68 F with right hip pain. The patient fell about 3 hours ago. She lost her balance using a tsephenie potty. She says she did not hit her head or neck. She does not have had her neck pain. Did not lose consciousness. Denies any other injuries or pains. She denies any associated symptoms like weakness or numbness. Physical Examination: Afebrile and vital signs unremarkable. Head and neck atraumatic. Right hip tender to palpation. Negative logroll. Neurovascular intact distally. No shortening or abnormal rotation. Good range of motion. Test Results: X-rays of the right hip and pelvis are pending. Emergency Department Course and Treatment: Clinically, the patient does not behave like a fracture, however she is unable to bear weight. X-rays were obtained. She was treated with [place] while awaiting results. X-rays reviewed by the radiologist and me shows a right subcapital hip fracture. Will obtain clearance testing. We will contact the hospitalist and orthopedics for further care. Treatment Plan: As above Disposition: Admission Impression: 1. Right subcapital hip fracture This note was generated with [employer]ation software. It may contain incorrect words, spelling, and punctuation that were not noted in review of the chart prior to signing ED Disposition - Plan for ED Patient: Referrals: Rigoberto Maher MD [Primary Care Provider] -
[2019-03-08 19:49] VITALS: O2SAT 99
[2019-03-08] MEDS: HYDROcodone Bitartrate/Apap 5/325 Tablet PO (19:52)
--- NOTE | 2019-03-08 20:00 | RAD_ITS ---
STUDY: X-RAY - PELVIS AND RIGHT HIP REASON FOR EXAM: Female, 68 years old. Right hip pain status post fall. TECHNIQUE: 3 views of the pelvis and hip. COMPARISON: None. FINDINGS: There is a nonobstructive bowel gas pattern. Prior lumbar laminectomy and fusion. Prior bilateral iliac stent placement. There is an acute, nondisplaced subcapital fracture of the right femoral neck. No angulation. Hip joint remains congruent. Acetabulum is unremarkable. Visualized left hip is unremarkable. Pelvis is unremarkable. RAD/HIP, UNI W/ Pelvis 2-3 Views IMPRESSION: Acute subcapital fracture of the right femoral neck. Electronically Signed: Nichelle Sanderson MD at 20:35 EDT Tel , Service support ,
--- NOTE | 2019-03-08 20:45 | EKG12_ITS ---
Test Reason : FALL Blood Pressure : / mmHG Vent. Rate : 065 BPM Atrial Rate : 065 BPM P-R Int : 168 ms QRS Dur : 088 ms QT Int : 462 ms P-R-T Axes : 068 032 049 degrees QTc Int : 480 ms Normal sinus rhythm Normal ECG Confirmed by EMILIANA JAMES, MARIELENA ([id number]), editor book RENETTA SOMMER ([id number]) on 03/13/2019 12:16:02 PM Referred By: Yasmani Teixeira Confirmed By:MARIELENA HOPSON MD
--- NOTE | 2019-03-08 21:00 | RAD_ITS ---
STUDY: X-RAY CHEST REASON FOR EXAM: Female, 68 years old. Preoperative, right hip fracture. TECHNIQUE: Portable chest. COMPARISON: None. FINDINGS: The lungs are clear and expanded. There is no demonstrated pleural abnormality. Normal size heart. Normal mediastinum and wendy. Normal visualized pulmonary arteries. Normal visualized aortic arch and descending thoracic aorta. Normal visualized thoracic spine. Reverse right shoulder arthroplasty. There is no demonstrated abnormality of the visualized soft tissue structures of the upper abdomen. RAD/Chest 1 View (Portable) IMPRESSION: No acute findings. Electronically Signed: Nichelle Sanderson MD at 22:14 EDT Tel , Service support ,
--- NOTE | 2019-03-08 21:21 | PCM.HP.STD ---
Problem List (1) Fracture of femoral neck, right, closed Status: Acute Qualifiers: Encounter type: initial encounter Qualified Code(s): S72.001A - Fracture of unspecified part of neck of right femur, initial encounter for closed fracture (2) Stroke-like symptoms Status: Resolved (3) Palpitations Status: Inactive History of Present Illness Date of Admission: 03/08/19 Chief Complaint: fall The patient is a 68 year old F with a significant history of CAD status post stent; PAD status post stent; who presented to the emergency department because she lost her balance and fell on the day of before presentation. She developed severe pain on her right hip after the fall. Her pain comes on when she exert weight on her right leg. Hip and pelvic x-ray done at the emergency department showed acute subcapital fracture of the right femoral neck. Emergency department doctor consulted Dr. Graf who will be following patient. Importantly about a month ago she presented to the hospital because she had another fall. Past Medical History Past Medical History (Chronic Problems): Chronic Problems (Last Reviewed 03/09/19 @ 01:46 by Yasmani Teixeira MD) Nonrheumatic mitral valve regurgitation (Chronic) Presence of stent in coronary artery (Chronic) PCI/stent of the distal CX; PCI/ALEXANDRO to prox RCA 08/19/06 Renal insufficiency (Chronic) Congestive heart failure (CHF) (Chronic) Atherosclerotic heart disease of [place] coronary artery without angina pectoris (Chronic) PCI/stent of the distal CX; PCI/ALEXANDRO to prox RCA 08/19/06 Peripheral neuropathy (Chronic) Hyperlipidemia (Chronic) Asthma (Chronic) Hypertension (Chronic) PAD (peripheral artery disease) (Chronic) Medical History: Medical History (Last Reviewed 03/09/19 @ 01:46 by Yasmani Teixeira MD) Nonrheumatic mitral valve regurgitation (Chronic) I34.0 Palpitations (Acute) R00.2 Renal insufficiency (Chronic) N28.9 Congestive heart failure (CHF) (Chronic) I50.9 Atherosclerotic heart disease of [place] coronary artery without angina pectoris (Chronic) I25.10 PCI/stent of the distal CX; PCI/ALEXANDRO to prox RCA 08/19/06 Peripheral neuropathy (Chronic) G62.9 Hyperlipidemia (Chronic) E78.5 Asthma (Chronic) J45.909 Hypertension (Chronic) I10 PAD (peripheral artery disease) (Chronic) I73.9 ANDRIY (acute kidney injury) N17.9 Cellulitis L03.90 Cellulitis of right lower extremity L03.115 History of DVT (deep vein thrombosis) Z86.718 Urinary retention R33.9 Foot drop, left M21.372 Lumbar disc disease M51.9 Lumbar radiculopathy M54.16 Rheumatoid arthritis M06.9 Spinal stenosis of lumbar region M48.061 Ulcer of left lower extremity with fat layer exposed L97.922 History of hysterectomy Z90.710 Ulcer of right lower extremity with fat layer exposed L97.912 Allergies colesevelam HCl [From WelChol] Allergy (Verified 03/08/19 19:23) Unknown metolazone [From Zaroxolyn] Allergy (Verified 03/08/19 19:23) Unknown nitrofurantoin macrocrystalline [From Macrodantin] Allergy (Verified 03/08/19 19:23) Unknown Penicillins Allergy (Verified 03/08/19 19:23) Unknown PASSED OUT pravastatin sodium [From Pravachol] Allergy (Verified 03/08/19 19:23) Unknown tramadol Adverse Reaction (Verified 03/08/19 19:23) Nausea Home Medications: Ambulatory Orders Medication Instructions Recorded Montelukast [Singulair] 10 mg PO DAILY 06/19/15 Nitroglycerin (INPATIENT USE) 0.4 mg SUBLINGUAL Q5M PRN 06/19/15 [Nitrostat] Ranolazine [Ranexa] 1,000 mg PO BID 06/19/15 Albuterol Inhaler [Ventolin Hfa] 1 puff INHALATION Q4H PRN PRN 05/01/16 Omeprazole 40 mg PO DAILY 05/01/16 Aspirin E.C. [Ecotrin] 81 mg PO DAILYCM tablet 11/05/17 Ipratropium/Albuterol Sulfate 3 ml INHALATION Q4H PRN PRN 11/05/17 [Duoneb] ampul.neb levothyroxine 100 mcg tablet 88 mcg PO QDAY 12/20/17 Hydroxyzine HCl 25 mg PO Q6H PRN PRN 02/10/19 Linaclotide [Linzess] 72 mcg PO DAILY 02/10/19 Rosuvastatin Calcium 20 mg PO DAILY 02/10/19 Temazepam 30 mg PO QHS PRN 02/10/19 Furosemide 40 mg PO DAILY #0 tab 02/11/19 Spironolactone 25 mg PO DAILY #0 02/11/19 Metoprolol Tartrate [Lopressor 25 mg PO DAILY 02/24/19 (beta marvin)] Surgical History: Surgical History (Last Reviewed 03/09/19 @ 01:47 by Yasmani Teixeira MD) Presence of stent in coronary artery (Chronic) Z95.5 PCI/stent of the distal CX; PCI/ALEXANDRO to prox RCA 08/19/06 Postsurgical percutaneous transluminal coronary angioplasty (PTCA) status Z98.61 PCI/stent of the distal CX; PCI/ALEXANDRO to prox RCA 08/19/06 History of bunionectomy of left great toe Z98.890 History of carpal tunnel surgery Z92.89 History of laminectomy Z98.890 Hx of appendectomy Z90.49 Status post insertion of iliac artery stent Z95.828 bilateral 05/29/11 Surgical History: - - The patient has had coronary stents placed in the past, as well as femoral stents in her lower extremities bilaterally by Dr. Alden Hernández. She has undergone lumbar fusion at L5. She is undergone right carpal tunnel release. 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 Paternal Family History: Family History (Last Reviewed 03/09/19 @ 01:47 by Yasmani Teixeira MD) Father Heart disease Mother Myocardial infarction, Onset Age: 50 CAD (coronary artery disease) Brother Diabetes History Items: - - The patient's father at age of 82 of congestive heart failure. Review of Systems Constitutional: Denies: Chills, Fever, Weight Change HEENT: Denies: Head Aches, Sinus Congestion, Sinus Drainage Cardiovascular: Denies: Chest Pain, Palpitations Respiratory: Denies: Cough, Shortness of breath at rest, Sputum production Gastrointestinal: Denies: Abdominal Pain, Nausea, Vomiting Genitourinary: Denies: Dysuria Musculoskeletal: Reports: - - Right hip pain Skin: Denies: Jaundice, Lesions, Pruritis Neurological: Reports: Balance problems. Denies: Focal weakness, Numbness, Tingling Psychiatric: Denies: Anxiety, Depression, Homicidal Ideations, Suicidal Ideations Hematologic/ Lymphatic: Denies: Easy Bruising, Easy Bleeding VTE Information - Inpt Only VTE Present on Admission: No VTE Mechan Device Prophylaxis: SCD's VTE Pharm Prophylaxis ordered?: No Patient Problems: Active and Suspected Problems (Last Reviewed 03/09/19 @ 01:46 by Yasmani Teixeira MD) Fracture of femoral neck, right, closed (Acute) - Physical Exam General: Alert, Oriented x3, Cooperative HEENT: Atraumatic, PERRLA, EOMI, Normocephalic Neck: Supple, No JVD, Negative Carotid Bruits Lungs: Clear to auscultation, Normal air movement Cardiovascular: Regular rate, Murmur Abdomen: Bowel Sounds Present, Soft, Non Tender Extremities: No edema, Capillary Refill Less than 3 Seconds Skin: No rashes, No breakdown Musculoskeletal: No Tenderness to Palpation of Joints or Extremities Neurological: Cranial nerves II-XII grossly intact Psych/Mental Status: Normal Affect, Appropriate Vital Signs Temp Pulse Resp BP Pulse Ox 98.9 F 70 17 126/60 H 99 03/08/19 19:25 03/08/19 19:25 03/08/19 19:25 03/08/19 19:25 03/08/19 19:49 Oxygen Delivery Method Room Air Weight: 60.781 kg Body Mass Index (BMI) 26.2 Assessment/Plan All Active Problems (Last Reviewed 03/09/19 @ 01:46 by Yasmani Teixeira MD) Stroke-like symptoms (Resolved) Fracture of femoral neck, right, closed (Acute) Ulcer of left lower leg (Resolved) Ulcer of right lower leg (Resolved) The patient is a 68 year old F with a significant history of CAD status post stent; PAD status post stent; who presented with a fall and right hip pain and found to have radiographic evidence of acute subcapital fracture of the right femoral neck. Acute subcapital fracture of the right femoral neck. Radiographic evidence of acute subcortical fracture of the right femoral neck. Consult to Dr. Graf; orthopedic surgeon. Reportedly last coronary stent was placed in about 2005; and stent for PAD was placed more than a year ago. Hold aspirin in view of probable surgery. Morphine IV and [place] PRN for pain. Zofran for antibiotics. Senokot-s for constipation We will keep n.p.o. start on gentle IV fluids. Hold diuretics at this time. Due to her advanced age and comorbidities is at higher than average risk for complications intraoperatively and postoperatively. At this time patient appears medically stable. EKG shows sinus rhythm. Urinary retention Nurse reported patient was unable to urinate and bladder scan of the bladder showed more than 600 mL's of urine. Order for lopez catheter since the patient is a candidate for surgery. CKD stage III On presentation her creatinine was 1.78 which may be within her baseline. Receiving gentle IV hydration in view of n.p.o. status perioperatively. Trend BMP. CAD status post stent Ranexa; metoprolol and continued History of Bilateral lower extremity edema Patient is on home Aldactone and Lasix. Unclear whether patient also have heart failure; at least heart failure with preserved ejection fraction. Echocardiogram on 02/11/2019 showed an EF of 65% with RVSP of 40. Hold Lasix and Aldactone in view of patient being kept n.p.o. Start gentle IV hydration. Hypertension On presentation blood pressure was fairly stable Metoprolol continued. Lasix and Aldactone on hold as above. Trend blood pressure and adjust blood pressure medications IBS Linzess continued Hypothyroidism Synthroid continued DVT prophylaxis SCD ordered. Code Visit Inpatient E&M: [id number] Init Hosp L3
[2019-03-08 21:44] LABS: Absolute Neutrophil Count 10.4 X10^3/uL (2.0-7.7); Basophil# 0.02 X10^3/uL; Basophil% 0.2 % (0-1); Eosinophil# 0.22 X10^3/uL; Eosinophils% 1.8 % (0-5); Hematocrit 27.3 % (37-47); Hemoglobin 9.2 g/dL (12.0-15.0); Lymphocyte % 7.4 % (19-41); Mean Corp Hgb Conc 33.7 g/dL (32-36); Mean Corpuscular Volume 91.9 fL (81-99); Mean Platelet Vol. 8.8 fl (6.2-12.0); Monocyte# 0.64 X10^3/uL; Monocyte% 5.2 % (0-10); NRBC Flagged by Analyzer 0 % (0-5); Neutrophil # 10.38 X10^3/uL (2.7-7.7); Neutrophil % 84.8 % (47-70); Platelet Count 242 K/mm3 (150-450); RBC Distribution Width CV 13.1 % (11.6-14.6); RBC Distribution Width SD 43.4 fl (35.1-43.9); Red Blood Count 2.97 M/mm3 (4.2-5.4); White Blood Count 12.2 K/mm3 (4.4-11.0)
[2019-03-08 21:50] LABS: International Normalized Ratio 1.3; Prothrombin Time (Protime)PT. 15.5 SECONDS (11.7-14.9)
[2019-03-08 21:52] LABS: Partial Thromboplast Time 42.5 Seconds (24.1-36.2)
[2019-03-08 21:53] LABS: Anion Gap 3 (5-15); BUN 26 mg/dL (7-18); BUN/Creat Ratio 14.6 RATIO (10-20); Calcium,Total 9.1 mg/dL (8.5-10.1); Chloride 98 mmol/L (98-107); Creatinine, Serum 1.78 mg/dL (0.55-1.02); EST Glomerular Filtration Rate 30 mL/min (>60); Est Glom Filt Rate - Afr Amer 37 mL/min (>60); Estimated Creatinine Clearance 22.33 ml/min; Glucose 109 mg/dL (74-106); Potassium 4.9 mmol/L (3.5-5.1); Sodium Level 126 mmol/L (136-145)
[2019-03-08 22:40] VITALS: BP 124/63; PULSE 62; RESP 16; TEMP 36.7; O2SAT 100; BMI 23.6
[2019-03-08 22:56] VITALS: BMI 23.6
[2019-03-08] MEDS: 0.9% Normal Saline 1,000 ML 75 ML IV (23:09)
[2019-03-08] MEDS: Temazepam 15 MG Capsule 30 MG PO (23:32)
[2019-03-08] MEDS: Ranolazine 500 MG Tablet 1000 MG PO (23:33)
[2019-03-08] MEDS: Rosuvastatin 20 MG Tablet PO (23:34)
[2019-03-09] VITALS (12 sets, daily range): BP systolic 93–121; BP diastolic 38–55; PULSE 58–75; RESP 16–18; TEMP 36.4–37.7; O2SAT 98–100
[2019-03-09 05:27] LABS: International Normalized Ratio 1.3; Prothrombin Time (Protime)PT. 15.7 SECONDS (11.7-14.9)
[2019-03-09 05:28] LABS: Absolute Lymphocyte Count 1.22 X10^3/uL (0.83-4.51); Absolute Neutrophil Count 6.1 X10^3/uL (2.0-7.7); Basophil# 0.01 X10^3/uL; Basophil% 0.1 % (0-1); Eosinophil# 0.29 X10^3/uL; Eosinophils% 3.6 % (0-5); Hematocrit 26.1 % (37-47); Hemoglobin 8.6 g/dL (12.0-15.0); Lymphocyte # 1.22 X10^3/ul (4.0); Mean Corpuscular Volume 94.2 fL (81-99); Mean Platelet Vol. 8.5 fl (6.2-12.0); Monocyte# 0.43 X10^3/uL; Monocyte% 5.3 % (0-10); NRBC Flagged by Analyzer 0 % (0-5); Neutrophil # 6.13 X10^3/uL (2.7-7.7); Neutrophil % 75.5 % (47-70); Partial Thromboplast Time 45.6 Seconds (24.1-36.2); Platelet Count 211 K/mm3 (150-450); RBC Distribution Width CV 12.9 % (11.6-14.6); RBC Distribution Width SD 44.6 fl (35.1-43.9); Red Blood Count 2.77 M/mm3 (4.2-5.4); White Blood Count 8.1 K/mm3 (4.4-11.0)
[2019-03-09 05:53] LABS: Anion Gap 8 (5-15); BUN 25 mg/dL (7-18); BUN/Creat Ratio 15.3 RATIO (10-20); Calcium,Total 8.7 mg/dL (8.5-10.1); Chloride 101 mmol/L (98-107); Creatinine, Serum 1.63 mg/dL (0.55-1.02); EST Glomerular Filtration Rate 34 mL/min (>60); Est Glom Filt Rate - Afr Amer 41 mL/min (>60); Estimated Creatinine Clearance 29.32 ml/min; Glucose 82 mg/dL (74-106); Potassium 4.2 mmol/L (3.5-5.1); Sodium Level 133 mmol/L (136-145); Thyroid Stim Hormone (TSH) < 0.01 uIU/mL (0.358-3.74)
[2019-03-09] MEDS: 0.9% Normal Saline 1,000 ML 50 ML IV (07:00)
--- NOTE | 2019-03-09 07:46 | CON.PCM_ITS ---
Reason for Consult Date of Consultation: 03/09/19 History of Present Illness: The patient is a 68 year old F with multiple medical comorbidities including chronic kidney insufficiency extensive cardiac history peripheral vascular disease who has had a ground-level fall she immediately had pain she did maintai n ability to ambulate with pain she then presented to the emergency room department where x-rays were taken which demonstrated a nondisplaced subcapital femoral neck fracture on the right. She does have history of rheumatoid arthritis but does not take any medications for this have history of chronic ulcerations in bilateral lower extremities however these have healed. Past Medical History Past Medical History (Chronic Problems): Chronic Problems (Last Reviewed 03/09/19 @ 01:46 by Yasmani Teixeira MD) Nonrheumatic mitral valve regurgitation (Chronic) Presence of stent in coronary artery (Chronic) PCI/stent of the distal CX; PCI/ALEXANDRO to prox RCA 08/19/06 Renal insufficiency (Chronic) Congestive heart failure (CHF) (Chronic) Atherosclerotic heart disease of [place] coronary artery without angina pectoris (Chronic) PCI/stent of the distal CX; PCI/ALEXANDRO to prox RCA 08/19/06 Peripheral neuropathy (Chronic) Hyperlipidemia (Chronic) Asthma (Chronic) Hypertension (Chronic) PAD (peripheral artery disease) (Chronic) Medical History: Medical History (Last Reviewed 03/09/19 @ 01:46 by Yasmani Teixeira MD) Nonrheumatic mitral valve regurgitation (Chronic) I34.0 Palpitations (Inactive) R00.2 Renal insufficiency (Chronic) N28.9 Congestive heart failure (CHF) (Chronic) I50.9 Atherosclerotic heart disease of [place] coronary artery without angina pectoris (Chronic) I25.10 PCI/stent of the distal CX; PCI/ALEXANDRO to prox RCA 08/19/06 Peripheral neuropathy (Chronic) G62.9 Hyperlipidemia (Chronic) E78.5 Asthma (Chronic) J45.909 Hypertension (Chronic) I10 PAD (peripheral artery disease) (Chronic) I73.9 ANDRIY (acute kidney injury) N17.9 Cellulitis L03.90 Cellulitis of right lower extremity L03.115 History of DVT (deep vein thrombosis) Z86.718 Urinary retention R33.9 Foot drop, left M21.372 Lumbar disc disease M51.9 Lumbar radiculopathy M54.16 Rheumatoid arthritis M06.9 Spinal stenosis of lumbar region M48.061 Ulcer of left lower extremity with fat layer exposed L97.922 History of hysterectomy Z90.710 Ulcer of right lower extremity with fat layer exposed L97.912 Allergies colesevelam HCl [From WelChol] Allergy (Verified 03/08/19 19:23) Unknown metolazone [From Zaroxolyn] Allergy (Verified 03/08/19 19:23) Unknown nitrofurantoin macrocrystalline [From Macrodantin] Allergy (Verified 03/08/19 19:23) Unknown Penicillins Allergy (Verified 03/08/19 19:23) Unknown PASSED OUT pravastatin sodium [From Pravachol] Allergy (Verified 03/08/19 19:23) Unknown tramadol Adverse Reaction (Verified 03/08/19 19:23) Nausea Home Medications: Ambulatory Orders Medication Instructions Recorded Montelukast [Singulair] 10 mg PO DAILY 06/19/15 Nitroglycerin (INPATIENT USE) 0.4 mg SUBLINGUAL Q5M PRN 06/19/15 [Nitrostat] Ranolazine [Ranexa] 1,000 mg PO BID 06/19/15 Albuterol Inhaler [Ventolin Hfa] 1 puff INHALATION Q4H PRN PRN 05/01/16 Omeprazole 40 mg PO DAILY 05/01/16 Aspirin E.C. [Ecotrin] 81 mg PO DAILYCM tablet 11/05/17 Ipratropium/Albuterol Sulfate 3 ml INHALATION Q4H PRN PRN 11/05/17 [Duoneb] ampul.neb levothyroxine 100 mcg tablet 88 mcg PO QDAY 12/20/17 Hydroxyzine HCl 25 mg PO Q6H PRN PRN 02/10/19 Linaclotide [Linzess] 72 mcg PO DAILY 02/10/19 Rosuvastatin Calcium 20 mg PO DAILY 02/10/19 Temazepam 30 mg PO QHS PRN 02/10/19 Furosemide 40 mg PO DAILY #0 tab 02/11/19 Spironolactone 25 mg PO DAILY #0 02/11/19 Metoprolol Tartrate [Lopressor 25 mg PO DAILY 02/24/19 (beta marvin)] Surgical History: Surgical History (Last Reviewed 03/09/19 @ 01:47 by Yasmani Teixeira MD) Presence of stent in coronary artery (Chronic) Z95.5 PCI/stent of the distal CX; PCI/ALEXANDRO to prox RCA 08/19/06 Postsurgical percutaneous transluminal coronary angioplasty (PTCA) status Z98.61 PCI/stent of the distal CX; PCI/ALEXANDRO to prox RCA 08/19/06 History of bunionectomy of left great toe Z98.890 History of carpal tunnel surgery Z92.89 History of laminectomy Z98.890 Hx of appendectomy Z90.49 Status post insertion of iliac artery stent Z95.828 bilateral 05/29/11 Surgical History: - - The patient has had coronary stents placed in the past, as well as femoral stents in her lower extremities bilaterally by Dr. Alden Hernández. She has undergone lumbar fusion at L5. She is undergone right carpal tunnel release. 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 Paternal Family History: Family History (Last Reviewed 03/09/19 @ 01:47 by Yasmani Teixeira MD) Father Heart disease Mother Myocardial infarction, Onset Age: 50 CAD (coronary artery disease) Brother Diabetes History Items: - - The patient's father at age of 82 of congestive heart failure. Patient Problems: Active and Suspected Problems (Last Reviewed 03/09/19 @ 01:46 by Yasmani Teixeira MD) Fracture of femoral neck, right, closed (Acute) Objective: X-ray demonstrate nondisplaced subcapital femoral neck fracture right - Physical Exam Vital Signs Temp Pulse Resp BP Pulse Ox 97.6 F L 61 18 97/47 L 99 03/09/19 06:53 03/09/19 06:53 03/09/19 06:53 03/09/19 06:53 03/09/19 06:53 Oxygen Delivery Method Room Air Weight: 137 lb 5.568 oz Body Mass Index (BMI) 23.6 Intake and Output for Last 24 Hours 03/07/19 03/08/19 03/09/19 23:59 23:59 23:59 Intake Total 864 / 864 Output Total 1650 / 1650 Balance -786 / -786 Laboratory Tests Past 24 Hrs 03/08/19 03/08/19 03/08/19 21:20 21:20 21:20 WBC 12.2 H RBC 2.97 L Hgb 9.2 L Hct 27.3 L MCV 91.9 MCH 31.0 MCHC 33.7 RDW Std Deviation 43.4 RDW Coeff of Arvind 13.1 Plt Count 242 MPV 8.8 Immature Gran % (Auto) 0.600 Neut % (Auto) 84.8 H Lymph % (Auto) 7.4 L Scott % (Auto) 5.2 Eos % (Auto) 1.8 Baso % (Auto) 0.2 Absolute Neuts (auto) 10.4 H Absolute Lymphs (auto) 0.90 Absolute Nucleated RBC 0.00 Nucleated RBC % 0 PT 15.5 H INR 1.3 APTT 42.5 H Sodium 126 L Potassium 4.9 Chloride 98 Carbon Dioxide 25.0 Anion Gap 3 L BUN 26 H Creatinine 1.78 H Estim Creat Clear Calc 22.33 Est GFR (MDRD) Af Amer 37 L Est GFR (MDRD) Non-Af 30 L BUN/Creatinine Ratio 14.6 Glucose 109 H Calcium 9.1 TSH Blood Type Antibody Screen 03/09/19 03/09/19 03/09/19 05:04 05:04 05:04 WBC 8.1 RBC 2.77 L Hgb 8.6 L Hct 26.1 L MCV 94.2 MCH 31.0 MCHC 33.0 RDW Std Deviation 44.6 H RDW Coeff of Arvind 12.9 Plt Count 211 MPV 8.5 Immature Gran % (Auto) 0.500 Neut % (Auto) 75.5 H Lymph % (Auto) 15.0 L Scott % (Auto) 5.3 Eos % (Auto) 3.6 Baso % (Auto) 0.1 Absolute Neuts (auto) 6.1 Absolute Lymphs (auto) 1.22 Absolute Nucleated RBC 0.00 Nucleated RBC % 0 PT 15.7 H INR 1.3 APTT 45.6 H Sodium 133 L Potassium 4.2 Chloride 101 Carbon Dioxide 24.0 Anion Gap 8 BUN 25 H Creatinine 1.63 H Estim Creat Clear Calc 29.32 Est GFR (MDRD) Af Amer 41 L Est GFR (MDRD) Non-Af 34 L BUN/Creatinine Ratio 15.3 Glucose 82 Calcium 8.7 TSH < 0.01 L Blood Type Antibody Screen 03/09/19 05:04 WBC RBC Hgb Hct MCV MCH MCHC RDW Std Deviation RDW Coeff of Arvind Plt Count MPV Immature Gran % (Auto) Neut % (Auto) Lymph % (Auto) Scott % (Auto) Eos % (Auto) Baso % (Auto) Absolute Neuts (auto) Absolute Lymphs (auto) Absolute Nucleated RBC Nucleated RBC % PT INR APTT Sodium Potassium Chloride Carbon Dioxide Anion Gap BUN Creatinine Estim Creat Clear Calc Est GFR (MDRD) Af Amer Est GFR (MDRD) Non-Af BUN/Creatinine Ratio Glucose Calcium TSH Blood Type A POSITIVE Antibody Screen NEGATIVE Assessment/Plan All Active Problems (Last Reviewed 03/09/19 @ 01:46 by Yasmani Teixeira MD) Stroke-like symptoms (Resolved) Fracture of femoral neck, right, closed (Acute) Ulcer of left lower leg (Resolved) Ulcer of right lower leg (Resolved) Right subcapital femoral neck fracture nondisplaced Stents of cardiac history with low hemoglobin 8.6 Recommend cardiac consultation clearance Plan for definitive percutaneous screw fixation of the right hip tomorrow N.P.o. after midnight hold any anticoagulation after midnight
--- NOTE | 2019-03-09 10:40 | CASEMGMT ---
Addendum entered by Maddy Mendes 03/09/19 13:19: SW placed a call to Yanely with [facility] asking for update on referral. Original Note: Social Work Assessment Referral Date: 03/09/2019 Date of Assessment: 03/09/2019 Reason for Consult: SNF/RU Informant: . states pt will need either SNF or RU at discharge Personal Status: SW met with pt to complete initial assessment. Pt is alert and orientated x4. Pt's Donell present in room. Pt gave this worker permission to speak to her in front of her guest. Pt states that she lives with her in a downstairs apartment. Pt states there are 4 steps to enter the apartment. DME include walker, cane, Shower chair, and riser on the commode. Pt states that her assists her with ADLs in the home. Pt's PCP is Dr. Rigoberto Maher and pharmacy is [facility] in [place]. Substance Abuse Hx: Pt denied Mental Health Hx: Pt denied SW informed pt and Donell that typically after hip fracture and surgery, individuals need [facility]/TCU/SNF at discharge. Pt states that the doctor mentioned staying at [facility] for rehab. SW explained that [facility] doesn't accept pt on weekends and this worker will have to check on TCU bed availability. Pt states that if TCU/RU is unable to accept then she is agreeable to [facility]. SW explained Medicare guidelines for SNF. Pt states understanding. SW placed a call to Yanely with TCU/RU. Yanely states TCU doesn't have any beds available for Wednesday. SW asked [facility] about taking weekend admissions to confirm. Yanely states they are willing to accept pt's on Sundays and will review referral with Dr. Lyle. MAX waiting to hear back from [facility]. Plan: [facility] vs. [facility] Maddy Mendes DOCTOR ASSISTANT, RECEIVER STOCKER
[2019-03-09] MEDS: Pantoprazole Sodium 40 MG Tablet PO (10:42)
[2019-03-09] MEDS: Ranolazine 500 MG Tablet 1000 MG PO ×2 (10:42→20:58)
[2019-03-09] MEDS: BENZOCAINE/MENTHOL 1 LOZENGE MUCOUS MEM ×4 (10:59→22:55)
[2019-03-09] MEDS: Levothyroxine 88 MCG Tablet PO (11:01)
[2019-03-09 18:59] LABS: Iron 32 ug/dL (50-170); Iron Binding Capacity,Total 221 ug/dL (250-450); PERCENT IRON SATURATION 14.5 % (15.0-55.0)
--- NOTE | 2019-03-09 19:40 | PN_ITS ---
Patient Problems: Active and Suspected Problems (Last Reviewed 03/09/19 @ 01:46 by Yasmani Teixeira MD) Fracture of femoral neck, right, closed (Acute) Subjective: Patient was seen and examined today, her was in the room during the time of my examination. Patient sustained a fall after losing her balance at home, she landed on her right hip and complained of inability to ambulate and severe right hip pain. Patient states that recently she had a fall on that same hip on 02/24/2019 and was evaluated in the emergency room and was found not to have a fracture. Examination in the ER revealed a right subcapital hip fracture, she was seen in consultation by orthopedic surgery today who is planning on doing an ORIF tomorrow. Talked at length with the patient concerning her medical history, she has a past history of stent placement in her circumflex coronary artery and right coronary artery in 2005, patient had a stress test in 2016 which was negative for reversible ischemia-this was done at [facility]. Patient's last echocardiogram was done in January 2019 here at this hospital and showed a preserved ejection fraction with mild pulmonary hypertension. Patient's EKG done this admission shows a normal sinus rhythm without evidence of ischemic changes. Patient has no complaints of any chest discomfort or shortness of breath. - Physical Exam General: Alert, Oriented x3, Cooperative, No apparent distress, Well developed, Well nourished HEENT: Atraumatic, PERRLA, EOMI, Normocephalic Oral: Moist Mucosa Neck: Supple, No JVD, Trachea Midline, Thyroid Normal Size and Texture Lungs: Clear to auscultation, Normal air movement, No rhonchi, No wheeze, No rales Cardiovascular: Regular rate, Regular Rhythm, Normal S1, Normal S2, No murmurs, PMI Normal, No rub noted, No Gallop Abdomen: Bowel Sounds Present, Soft, Non Tender, Non-Distended, No hernias noted Extremities: No edema, Capillary Refill Less than 3 Seconds Skin: No rashes, No breakdown Neurological: Cranial nerves II-XII grossly intact, Neuro grossly intact, Sensory exam intact to light touch and pain Psych/Mental Status: Normal Affect, Appropriate, Alert and oriented to time, place, person, mood and affect Vital Signs Temp Pulse Resp BP Pulse Ox 98.1 F 65 18 113/45 L 98 03/09/19 16:00 03/09/19 16:00 03/09/19 16:00 03/09/19 16:00 03/09/19 16:00 Oxygen Delivery Method Room Air Weight: 62.3 kg Body Mass Index (BMI) 23.6 Intake and Output for Last 24 Hours 03/07/19 03/08/19 03/09/19 23:59 23:59 23:59 Intake Total 2140 / 2140 Output Total 3075 / 3075 Balance -935 / -935 Laboratory Tests Past 24 Hrs 03/08/19 03/08/19 03/08/19 21:20 21:20 21:20 WBC 12.2 H RBC 2.97 L Hgb 9.2 L Hct 27.3 L MCV 91.9 MCH 31.0 MCHC 33.7 RDW Std Deviation 43.4 RDW Coeff of Arvind 13.1 Plt Count 242 MPV 8.8 Immature Gran % (Auto) 0.600 Neut % (Auto) 84.8 H Lymph % (Auto) 7.4 L [place] % (Auto) 5.2 Eos % (Auto) 1.8 Baso % (Auto) 0.2 Absolute Neuts (auto) 10.4 H Absolute Lymphs (auto) 0.90 Absolute Nucleated RBC 0.00 Nucleated RBC % 0 PT 15.5 H INR 1.3 APTT 42.5 H Sodium 126 L Potassium 4.9 Chloride 98 Carbon Dioxide 25.0 Anion Gap 3 L BUN 26 H Creatinine 1.78 H Estim Creat Clear Calc 22.33 Est GFR (MDRD) Af Amer 37 L Est GFR (MDRD) Non-Af 30 L BUN/Creatinine Ratio 14.6 Glucose 109 H Calcium 9.1 Iron TIBC Iron Saturation Troponin I TSH Blood Type Antibody Screen 03/09/19 03/09/19 03/09/19 05:04 05:04 05:04 WBC 8.1 RBC 2.77 L Hgb 8.6 L Hct 26.1 L MCV 94.2 MCH 31.0 MCHC 33.0 RDW Std Deviation 44.6 H RDW Coeff of Arvind 12.9 Plt Count 211 MPV 8.5 Immature Gran % (Auto) 0.500 Neut % (Auto) 75.5 H Lymph % (Auto) 15.0 L [place] % (Auto) 5.3 Eos % (Auto) 3.6 Baso % (Auto) 0.1 Absolute Neuts (auto) 6.1 Absolute Lymphs (auto) 1.22 Absolute Nucleated RBC 0.00 Nucleated RBC % 0 PT 15.7 H INR 1.3 APTT 45.6 H Sodium 133 L Potassium 4.2 Chloride 101 Carbon Dioxide 24.0 Anion Gap 8 BUN 25 H Creatinine 1.63 H Estim Creat Clear Calc 29.32 Est GFR (MDRD) Af Amer 41 L Est GFR (MDRD) Non-Af 34 L BUN/Creatinine Ratio 15.3 Glucose 82 Calcium 8.7 Iron TIBC Iron Saturation Troponin I TSH < 0.01 L Blood Type Antibody Screen 03/09/19 03/09/19 03/09/19 05:04 05:04 19:30 WBC RBC Hgb Hct MCV MCH MCHC RDW Std Deviation RDW Coeff of Arvind Plt Count MPV Immature Gran % (Auto) Neut % (Auto) Lymph % (Auto) [place] % (Auto) Eos % (Auto) Baso % (Auto) Absolute Neuts (auto) Absolute Lymphs (auto) Absolute Nucleated RBC Nucleated RBC % PT INR APTT Sodium Potassium Chloride Carbon Dioxide Anion Gap BUN Creatinine Estim Creat Clear Calc Est GFR (MDRD) Af Amer Est GFR (MDRD) Non-Af BUN/Creatinine Ratio Glucose Calcium Iron 32 L TIBC 221 L Iron Saturation 14.5 L Troponin I Pending TSH Blood Type A POSITIVE Antibody Screen NEGATIVE Medical Necessity - Tobacco Use Smoking Status: Former smoker Assessment/Plan All Active Problems (Last Reviewed 03/09/19 @ 01:46 by Yasmani Teixeira MD) Stroke-like symptoms (Resolved) Fracture of femoral neck, right, closed (Acute) Ulcer of left lower leg (Resolved) Ulcer of right lower leg (Resolved) #1 acute subcapital fracture of the right femoral neck-at this time, patient appears medically stable for ORIF of the right hip, the patient underwent an extensive surgery in July 2018 for fusion of her lower back and had no cardiac complications during that surgery. Patient's last stress test was 2 years ago and this was negative for reversible ischemia, she has a normal ejection fraction as noted on an echocardiogram in January 2019. #2 acute on chronic anemia-patient states that she has a history of chronic anemia, she states her layboy tender does not give her iron because she has a history of chronic kidney disease which does not make sense to this examiner. I feel the patient would benefit from a unit of transfused packed red blood cells before surgery, I will order iron studies on the patient, she may need IV iron supplementation during her hospitalization #3 coronary artery disease-this appears stable at this time #4 peripheral arterial disease-this appears stable at this time #5 chronic kidney disease stage III-patient follows up with a layboy tender in the [place] area #6 degenerative disc disease of the lumbar spine with recent multilevel fusion of the lumbar spine-I discussed discharge planning with the patient, she is agreed to go to an extended care facility for inpatient rehab services, I think she would benefit from this following her hip surgery. #7 hypothyroidism-patient will remain on Synthroid #8 asthma-patient is on Singulair #9 hyperlipidemia Code Visit Inpatient E&M: 35644 Subs Hosp L2
[2019-03-09] MEDS: Montelukast 10 MG Tablet PO (20:59)
[2019-03-09] MEDS: Rosuvastatin 20 MG Tablet PO (21:09)
[2019-03-09] MEDS: Temazepam 15 MG Capsule 30 MG PO (21:40)
[2019-03-09] MEDS: HYDROcodone Bitartrate/Apap 5/325 Tablet PO (21:40)
[2019-03-10] VITALS (15 sets, daily range): BP systolic 101–129; BP diastolic 33–59; PULSE 50–59; RESP 16–18; TEMP 36.2–36.7; O2SAT 93–100; BMI 23.6
[2019-03-10 05:37] LABS: Hematocrit 29.1 % (37-47); Hemoglobin 9.7 g/dL (12.0-15.0)
[2019-03-10] MEDS: Levothyroxine 88 MCG Tablet PO (05:57)
[2019-03-10] MEDS: BENZOCAINE/MENTHOL 1 LOZENGE MUCOUS MEM (05:59)
[2019-03-10] MEDS: Pantoprazole Sodium 40 MG Tablet PO (09:19)
--- NOTE | 2019-03-10 09:47 | CASEMGMT ---
Addendum entered by Maddy Mendes 03/10/19 10:28: MAX spoke with Ernestine at [facility] stating she is able to accept pt and would like PT/OT faxed over when available. MAX updated pt and pt's that both TCU/RU doesn't have any beds available over the weekend but [facility] is able to accept pt over the weekend if pt is medically ready for discharge. Pt and pt's state understanding. MAX completed convalescent 7000 in HENS. MAX placed HENS on pt's chart and green sheet. Plan: W either Wednesday or Wednesday. PT/OT will need faxed once available. Original Note: Social Work Note MAX spoke with Yanely with [facility] stating [facility] is unable to accept pt over the weekend, would accept pt on Wednesday. MAX informed Yanely that pt could potentially go to SNF over the weekend since [facility] is unable to accept and that this worker is not sure if physician will keep pt until Wednesday for [facility] when pt could go to SNF over the weekend. Yanely states understanding. Per previous conversations with pt, pt's second choice if units at [facility] are unable to accept is [facility]. TCU doesn't have any beds and [facility] doesn't accept weekend admissions. MAX spoke with RN who states pt's surgery is scheduled for 12:00pm today. MAX faxed referral to [facility], PT/OT are not available at this time as pt is just having surgery today. PT/OT may not be available until Wednesday. MAX placed a call to Ernestine at [facility] and updated her on referral and PT/OT. SW waiting for call back. Plan: [facility] pending acceptance Maddy Mendes MEAT PASSER, SALES TRAINER
--- NOTE | 2019-03-10 11:19 | NURSING ---
PT TO OR VIA BED. REPORT HAS BEEN CALLED, NO ORDER FOR CONSENT.
--- NOTE | 2019-03-10 12:00 | RAD_ITS ---
STUDY: X-RAY - PELVIS AND RIGHT HIP REASON FOR EXAM: Female, 68 years old. Right hip pinning. TECHNIQUE: 2 intraoperative views of the pelvis and hip. COMPARISON: None. FINDINGS: Intraoperative images provided for intraoperative pinning of the right femoral neck fracture with 3 pins. RAD/HIP, UNI W/ Pelvis 2-3 Views IMPRESSION: Thinning of the subcapital fracture. There is good alignment. Electronically Signed: Abel Eason, at 13:42 EDT , Service support ,
[2019-03-10] MEDS: Bupiv/Epi 0.5% Mpf 30 ML Vial (13:14)
--- NOTE | 2019-03-10 13:26 | PCM.OPRPT ---
Report of Operation Date of Procedure: 03/10/19 Description of Surgical Findings:: Preoperative diagnosis: Right hip subcapital femoral neck fracture nondisplaced Postoperative diagnosis: Same Procedure: Percutaneous screw fixation of right hip Anesthesia: General EBL: 10 Complications: None Implant :Synthes cannulated hip screws x3 Condition: Stable to PACU Indication for procedure: This is a 68-year-old female patient rheumatoid arthritis with multiple medical comorbidities who had a fall in the [facility] injuring her right hip she did not proceed to the emergency room immediately and was initially able to ambulate with significant pain eventually proceed to the emergency room where x-rays were taken and the aforementioned fracture was identified. Orthopedic's was consulted for fracture we did discuss her cutaneous screw fixation of the hip risk benefits and alternatives were reviewed including risk of bleeding infection nerve, artery, bone, tissue damage, blood clot need for further surgery and continued pain. Procedure: Patient was met in the preoperative holding area once in the operative extremity was then 5 by both patient and physician was marked patient anesthesia and brought back to the operating room will current transfer the operating table in supine position anesthesia was started. Patient was then positioned on fracture table all of her bony prominences were well-padded. Fluoroscopy unit was brought in to ensure adequate AP and lateral projections could be achieved. Patient was then prepped and draped in usual sterile fashion a timeout was called to the proper patient procedure and extremity are being contemplated. Fluoroscopy was once again brought in and with a metallic instrument the starting point was marked on the AP and lateral projections on the skin then made a stab incision through the skin and the pin was inserted to the appropriate starting point was advanced into the femoral head this was checked in both AP and lateral projections for center center positioning. We then used the parallel drill guide to place anterior and posterior screws superior to the initial screw in an inverted triangle pattern these were checked in both AP and lateral projections and measured self-tapping screws were then placed over the drill ends. Final AP and lateral projections were saved to the PACS system. Screw heads were checked to make sure there is no iliotibial band entrapment the wound was thoroughly irrigated subcutaneous tissue was closed with 0 Vicryl 2-0 Vicryl followed by ash in the skin standard dressing applied. Patient will be toe-touch weightbearing on the operative side for 4 weeks.
[2019-03-10 13:40] LABS: Hematocrit 29.5 % (37-47); Hemoglobin 9.6 g/dL (12.0-15.0); Mean Corp Hgb Conc 32.5 g/dL (32-36); Mean Corpuscular Volume 92.2 fL (81-99); Mean Platelet Vol. 10.7 fl (6.2-12.0); Platelet Count 168 K/mm3 (150-450); RBC Distribution Width CV 14.7 % (11.6-14.6); RBC Distribution Width SD 50.2 fl (35.1-43.9); White Blood Count 6.9 K/mm3 (4.4-11.0)
[2019-03-10 13:44] LABS: Anion Gap 3 (5-15); BUN 32 mg/dL (7-18); BUN/Creat Ratio 17.7 RATIO (10-20); Calcium,Total 8.2 mg/dL (8.5-10.1); Chloride 104 mmol/L (98-107); Creatinine, Serum 1.81 mg/dL (0.55-1.02); EST Glomerular Filtration Rate 30 mL/min (>60); Est Glom Filt Rate - Afr Amer 36 mL/min (>60); Glucose 89 mg/dL (74-106); Potassium 4.9 mmol/L (3.5-5.1); Sodium Level 130 mmol/L (136-145)
--- NOTE | 2019-03-10 13:45 | PCM.PN.ORT ---
Patient Problems: Active and Suspected Problems (Last Reviewed 03/09/19 @ 01:46 by Yasmani Teixeira MD) Fracture of femoral neck, right, closed (Acute) Subjective: Seen and examined postoperatively. Doing well pain controlled no complaints. - Physical Exam Extremities: - - Compartment soft neurovascular intact. Dressing clean dry and intact Vital Signs Temp Pulse Resp BP Pulse Ox 97.4 F L 52 L 16 129/47 H 99 03/10/19 13:27 03/10/19 13:30 03/10/19 13:30 03/10/19 13:30 03/10/19 13:30 Oxygen Delivery Method Room Air Weight: 137 lb 5.568 oz Body Mass Index (BMI) 23.6 Intake and Output for Last 24 Hours 03/08/19 03/09/19 03/10/19 23:59 23:59 23:59 Intake Total 3543 / 3543 176 / 176 Output Total 4100 / 4100 1200 / 1200 Balance -557 / -557 -1024 / -1024 Laboratory Tests Past 24 Hrs 03/09/19 03/09/19 03/09/19 05:04 05:04 19:30 WBC RBC Hgb Hct MCV MCH MCHC RDW Std Deviation RDW Coeff of Arvind Plt Count MPV Sodium Potassium Chloride Carbon Dioxide Anion Gap BUN Creatinine Estim Creat Clear Calc Est GFR (MDRD) Af Amer Est GFR (MDRD) Non-Af BUN/Creatinine Ratio Glucose Calcium Iron 32 L TIBC 221 L Iron Saturation 14.5 L Troponin I < 0.015 Crossmatch See Detail 03/09/19 03/10/19 03/10/19 21:45 01:35 01:35 WBC RBC Hgb Hct MCV MCH MCHC RDW Std Deviation RDW Coeff of Arvind Plt Count MPV Sodium 130 L Potassium 4.9 Chloride 104 Carbon Dioxide 23.0 Anion Gap 3 L BUN 32 H Creatinine 1.81 H Estim Creat Clear Calc 26.40 Est GFR (MDRD) Af Amer 36 L Est GFR (MDRD) Non-Af 30 L BUN/Creatinine Ratio 17.7 Glucose 89 Calcium 8.2 L Iron TIBC Iron Saturation Troponin I < 0.015 < 0.015 Crossmatch 03/10/19 03/10/19 05:02 05:02 WBC 6.9 RBC 3.20 L Hgb 9.7 L 9.6 L Hct 29.1 L 29.5 L MCV 92.2 MCH 30.0 MCHC 32.5 RDW Std Deviation 50.2 H RDW Coeff of Arvind 14.7 H Plt Count 168 MPV 10.7 Sodium Potassium Chloride Carbon Dioxide Anion Gap BUN Creatinine Estim Creat Clear Calc Est GFR (MDRD) Af Amer Est GFR (MDRD) Non-Af BUN/Creatinine Ratio Glucose Calcium Iron TIBC Iron Saturation Troponin I Crossmatch Medical Necessity - Tobacco Use Smoking Status: Former smoker Assessment/Plan All Active Problems (Last Reviewed 03/09/19 @ 01:46 by Yasmani Teixeira MD) Stroke-like symptoms (Resolved) Fracture of femoral neck, right, closed (Acute) Ulcer of left lower leg (Resolved) Ulcer of right lower leg (Resolved) Status post percutaneous screw fixation of the right hip with 3 cannulated partially threaded screws Start Eliquis 2.5 mg twice daily for 3 weeks postop SCDs NATE hose Dressing to be changed postop day #3 then daily May begin showering postop day #3 but no tub baths until 3 weeks Christian to be removed 2 weeks postoperatively Toe-touch weightbearing right lower extremity 4 weeks then I will progress her based on x-ray findings Follow-up in the office 2 weeks for wound check and staple removal Patient will need rehab Rx for narcotic left on chart printed Call with any questions or concerns
--- NOTE | 2019-03-10 14:28 | CASEMGMT ---
Social Work Note SW faxed updated clinicals to [facility]. Plan: [facility] Wednesday Maddy Mendes ANODIC OPERATOR, ROUSTABOUT SUPERVISOR
[2019-03-10] MEDS: Acetaminophen 500 MG Tablet 1000 MG PO ×2 (15:03→22:03)
[2019-03-10] MEDS: Ranolazine 500 MG Tablet 1000 MG PO ×2 (15:05→22:03)
--- NOTE | 2019-03-10 17:38 | PCM.PROGNOTE ---
Patient Problems: Active and Suspected Problems (Last Reviewed 03/09/19 @ 01:46 by Yasmani Teixeira MD) Fracture of femoral neck, right, closed (Acute) Subjective: Patient was seen and examined today, she underwent surgery for ORIF of her right hip fracture. Patient has no complaints of this examiner of any chest pain, shortness of breath, or fever or chills at this time. Patient's hemoglobin was 9.6 this morning, patient's creatinine has increased to 1.81 today. - Physical Exam General: Alert, Oriented x3, Cooperative, No apparent distress, Well developed, Well nourished HEENT: Atraumatic, PERRLA, EOMI, Normocephalic Oral: Moist Mucosa Neck: Supple, Trachea Midline, Thyroid Normal Size and Texture Lungs: Clear to auscultation, Normal air movement, No rhonchi, No wheeze, No rales Cardiovascular: Regular rate, Regular Rhythm, Normal S1, Normal S2, No murmurs Abdomen: Bowel Sounds Present, Soft, Non Tender, Non-Distended, No hernias noted Extremities: No clubbing, No cyanosis, Capillary Refill Less than 3 Seconds Skin: No rashes Neurological: Cranial nerves II-XII grossly intact, Neuro grossly intact, Sensory exam intact to light touch and pain Psych/Mental Status: Normal Affect, Appropriate, Alert and oriented to time, place, person, mood and affect Vital Signs Temp Pulse Resp BP Pulse Ox 97.4 F L 51 L 18 122/59 H 100 03/10/19 16:40 03/10/19 16:40 03/10/19 16:40 03/10/19 16:40 03/10/19 16:40 Oxygen Delivery Method Room Air Weight: 62.3 kg Body Mass Index (BMI) 23.6 Intake and Output for Last 24 Hours 03/08/19 03/09/19 03/10/19 23:59 23:59 23:59 Intake Total 3543 / 3543 876 / 876 Output Total 4100 / 4100 1200 / 1200 Balance -557 / -557 -324 / -324 Laboratory Tests Past 24 Hrs 03/09/19 03/09/19 03/09/19 05:04 05:04 19:30 WBC RBC Hgb Hct MCV MCH MCHC RDW Std Deviation RDW Coeff of Arvind Plt Count MPV Sodium Potassium Chloride Carbon Dioxide Anion Gap BUN Creatinine Estim Creat Clear Calc Est GFR (MDRD) Af Amer Est GFR (MDRD) Non-Af BUN/Creatinine Ratio Glucose Calcium Iron 32 L TIBC 221 L Iron Saturation 14.5 L Troponin I < 0.015 Crossmatch See Detail 03/09/19 03/10/19 03/10/19 21:45 01:35 01:35 WBC RBC Hgb Hct MCV MCH MCHC RDW Std Deviation RDW Coeff of Arvind Plt Count MPV Sodium 130 L Potassium 4.9 Chloride 104 Carbon Dioxide 23.0 Anion Gap 3 L BUN 32 H Creatinine 1.81 H Estim Creat Clear Calc 26.40 Est GFR (MDRD) Af Amer 36 L Est GFR (MDRD) Non-Af 30 L BUN/Creatinine Ratio 17.7 Glucose 89 Calcium 8.2 L Iron TIBC Iron Saturation Troponin I < 0.015 < 0.015 Crossmatch 03/10/19 03/10/19 05:02 05:02 WBC 6.9 RBC 3.20 L Hgb 9.7 L 9.6 L Hct 29.1 L 29.5 L MCV 92.2 MCH 30.0 MCHC 32.5 RDW Std Deviation 50.2 H RDW Coeff of Arvind 14.7 H Plt Count 168 MPV 10.7 Sodium Potassium Chloride Carbon Dioxide Anion Gap BUN Creatinine Estim Creat Clear Calc Est GFR (MDRD) Af Amer Est GFR (MDRD) Non-Af BUN/Creatinine Ratio Glucose Calcium Iron TIBC Iron Saturation Troponin I Crossmatch Medical Necessity - Tobacco Use Smoking Status: Former smoker Assessment/Plan All Active Problems (Last Reviewed 03/09/19 @ 01:46 by Yasmani Teixeira MD) Stroke-like symptoms (Resolved) Fracture of femoral neck, right, closed (Acute) Ulcer of left lower leg (Resolved) Ulcer of right lower leg (Resolved) #1 acute subcapital fracture of the right femoral neck-postop day 0, continue PT and OT, possible placement in the rehab department at [facility] for inpatient rehab #2 acute on chronic anemia-secondary to expected blood loss from hip fracture on an overlay of chronic iron deficiency anemia-patient's iron level was low at 32, I will give the patient an infusion of Venofer today, recheck H&H #3 coronary artery disease-this appears stable at this time #4 peripheral arterial disease-this appears stable at this time #5 chronic kidney disease stage III-patient follows up with a web marketing coordinator in the [place] area, recheck BMP #6 degenerative disc disease of the lumbar spine with recent multilevel fusion of the lumbar spine #7 hypothyroidism-patient will remain on Synthroid #8 asthma-patient is on Singulair #9 hyperlipidemia Code Visit Inpatient E&M: 86308 Subs Hosp L2
[2019-03-10] MEDS: oxyCODONE 5 MG Tablet PO (18:14)
[2019-03-10] MEDS: APIXABAN 2.5 MG TABLET PO (22:02)
[2019-03-10] MEDS: Rosuvastatin 20 MG Tablet PO (22:02)
[2019-03-10] MEDS: Montelukast 10 MG Tablet PO (22:03)
[2019-03-10] MEDS: Temazepam 15 MG Capsule 30 MG PO (22:07)
[2019-03-11 02:22] VITALS: BP 100/51; PULSE 53; RESP 16; TEMP 36.4; O2SAT 97
[2019-03-11] MEDS: Acetaminophen 500 MG Tablet 1000 MG PO ×2 (05:22→14:44)
[2019-03-11] MEDS: Levothyroxine 88 MCG Tablet PO (05:22)
[2019-03-11 08:06] VITALS: BP 97/51; PULSE 60; RESP 18; TEMP 36.6; O2SAT 100
[2019-03-11 08:09] VITALS: PULSE 60
[2019-03-11 10:31] VITALS: PULSE 80
[2019-03-11] MEDS: Metoprolol Tartrate 25 MG Tablet PO (10:31)
[2019-03-11] MEDS: APIXABAN 2.5 MG TABLET PO (10:31)
[2019-03-11] MEDS: Ranolazine 500 MG Tablet 1000 MG PO (10:32)
[2019-03-11] MEDS: Pantoprazole Sodium 40 MG Tablet PO (10:32)
--- NOTE | 2019-03-11 12:02 | NURSING ---
This nurse is aware of Vital Signs taken by Dennis Mcclure at 0810 this morning.
--- NOTE | 2019-03-11 12:45 | PCM.TXEXTCAR ---
- Diet 03/10/19 16:33 Diet: regular Is pt able to select menu?: Yes - Wound(s) Right Elbow Wound Type: Skin Tear Left Elbow Wound Type: Skin Tear Left Shoulder Wound Type: Skin Tear RT HIP Wound Type: Surgical Incision RT LATERAL LOWER EXT Wound Type: Surgical Incision - Therapies Weight Bearing: Toe-touch weight bearing Physical Therapy: Eval and Treat Occupational Therapy: Eval and Treat - Problem/Diagnosis (1) Fracture of femoral neck, right, closed Status: Acute Comment: percutaneous screw fixation 03/10/19 Current Visit: Yes (2) Presence of stent in coronary artery Status: Chronic Comment: PCI/stent of the distal CX; PCI/ALEXANDRO to prox RCA 08/19/06 Current Visit: No (3) Renal insufficiency Status: Chronic Current Visit: No (4) Atherosclerotic heart disease of [place] coronary artery without angina pectoris Status: Chronic Comment: PCI/stent of the distal CX; PCI/ALEXANDRO to prox RCA 08/19/06 Current Visit: No (5) Asthma Status: Chronic Current Visit: No (6) Hypertension Status: Chronic Current Visit: No - Allergies/Procedures Done in Hospital Allergies/Adverse Reactions: Allergies colesevelam HCl [From WelChol] Allergy (Verified 03/08/19 19:23) Unknown metolazone [From Zaroxolyn] Allergy (Verified 03/08/19 19:23) Unknown nitrofurantoin macrocrystalline [From Macrodantin] Allergy (Verified 03/08/19 19:23) Unknown Penicillins Allergy (Verified 03/08/19 19:23) Unknown PASSED OUT pravastatin sodium [From Pravachol] Allergy (Verified 03/08/19 19:23) Unknown tramadol Adverse Reaction (Verified 03/08/19 19:23) Nausea Procedures: - - percutaneous screw fixation right hip 03/10/19 - Type of Care/Length of Stay Estimated LOS: Convalescent Care Less Than 30 days Type of Care Needed: Skilled Rehab Potential: Good Prognosis: Good - Additional Orders/Day of Discharge Additional Orders: Dressing to be changed postop day #3 then daily. May begin showering postop day #3 but no tub baths until 3 weeks. Toe-touch weightbearing right lower extremity 4 weeks. Follow-up in the office 2 weeks for wound check and staple removal- Dr. Graf H&P will serve as current which was dated: 03/08/19 Day of Discharge: 03/11/19 - Follow Up Care Primary Care Physician: Rigoberto Maher MD [Primary Care Provider] -
[2019-03-11] MEDS: oxyCODONE 5 MG Tablet PO (12:46)
[2019-03-11] MEDS: BENZOCAINE/MENTHOL 1 LOZENGE MUCOUS MEM (14:48)
[2019-03-11 14:49] VITALS: BP 123/46; PULSE 57; RESP 18; TEMP 36.4; O2SAT 100
[2019-03-11 14:50] VITALS: PULSE 57
--- NOTE | 2019-03-11 15:02 | NURSING ---
[facility] is aware that pt is coming to them today and Report was given to Myriam MEDINA at [facility].
--- NOTE | 2019-03-12 09:36 | DS.PCM_ITS ---
Discharge Date and Diagnosis Date of Admission: 03/08/19 Date of Discharge: 03/11/19 - Primary Discharge Diagnosis #1 acute subcapital fracture of the right femoral neck #2 acute on chronic anemia-secondary to expected blood loss from hip fracture on an overlay of chronic iron deficiency anemia #3 coronary artery disease #4 peripheral arterial disease #5 chronic kidney disease stage III #6 degenerative disc disease of the lumbar spine with recent multilevel fusion of the lumbar spine #7 hypothyroidism #8 asthma #9 hyperlipidemia - Secondary Discharge Diagnosis Chronic Problems (Last Reviewed 03/09/19 @ 01:46 by Yasmani Teixeira MD) Nonrheumatic mitral valve regurgitation (Chronic) Presence of stent in coronary artery (Chronic) PCI/stent of the distal CX; PCI/ALEXANDRO to prox RCA 08/19/06 Renal insufficiency (Chronic) Congestive heart failure (CHF) (Chronic) Atherosclerotic heart disease of [place] coronary artery without angina pectoris (Chronic) PCI/stent of the distal CX; PCI/ALEXANDRO to prox RCA 08/19/06 Peripheral neuropathy (Chronic) Hyperlipidemia (Chronic) Asthma (Chronic) Hypertension (Chronic) PAD (peripheral artery disease) (Chronic) Hospital Course and Treatment Operations: - - Percutaneous screw fixation of the right hip due to right hip fracture Procedures: None Summary of Care Provided: The patient is a 68 year old F who was seen in the emergency room at [facility] after sustaining a fall at home and complaining of right hip pain, work-up in the emergency room revealed the patient to have a right hip subcapital femoral neck fracture that was nondisplaced. Patient was admitted to [place] [address], she was seen in consultation by orthopedic surgery and felt to be stable for surgery. Patient underwent surgery on 03/10/2019 with insertion of a percutaneous screw fixation of the right hip. Postop patient had no untoward events, she was seen by PT and OT and felt to be a good candidate for [facility]. On 03/11/2019, patient was seen and examined: On examination she appeared in good health and spirits. Vital signs as documented. Skin warm and dry and without overt rashes. Neck without JVD. Lungs clear. Heart exam notable for regular rhythm, normal sounds and absence of murmurs, rubs or gallops. Abdomen unremarkable and without evidence of organomegaly, masses, or abdominal aortic enlargement. Extremities nonedematous. Neuro: Cranial nerves II through XII are grossly intact, no focal motor deficits were noted, sensation to light touch and pinprick is intact. Psych: Patient is alert and oriented x3, she does not appear anxious or depressed On 03/11/2019, patient was seen and examined and felt to be in stable condition for transfer to [facility] for inpatient rehab services. - Physical Exam Vital Signs Temp Pulse Resp BP Pulse Ox 97.6 F L 57 L 18 123/46 H 100 03/11/19 14:49 03/11/19 14:50 03/11/19 14:49 03/11/19 14:49 03/11/19 14:49 Oxygen Delivery Method Room Air Weight: 62.3 kg Body Mass Index (BMI) 23.6 Intake and Output for Last 24 Hours 03/10/19 03/11/19 03/12/19 23:59 23:59 23:59 Intake Total 1479 / 1479 751 / 751 Output Total 2125 / 2125 650 / 650 Balance -646 / -646 101 / 101 Home Medications: Medications to take at Discharge Montelukast [Singulair] 10 mg PO DAILY 06/19/15 Nitroglycerin (INPATIENT USE) [Nitrostat] 0.4 mg SUBLINGUAL Q5M PRN 06/19/15 Ranolazine [Ranexa] 1,000 mg PO BID 06/19/15 Omeprazole 40 mg PO DAILY 05/01/16 Aspirin E.C. [Ecotrin] 81 mg PO DAILYCM tablet 11/05/17 Ipratropium/Albuterol Sulfate [Duoneb] 3 ml INHALATION Q4H PRN PRN ampul.neb 11/05/17 levothyroxine 100 mcg tablet 88 mcg PO QDAY 12/20/17 Hydroxyzine HCl 25 mg PO Q6H PRN PRN 02/10/19 Rosuvastatin Calcium 20 mg PO DAILY 02/10/19 Metoprolol Tartrate [Lopressor (beta marvin)] 25 mg PO DAILY 02/24/19 Oxycodone [Oxyir] 5 - 10 mg PO Q4H PRN PRN 7 Days #60 tab 03/10/19 Acetaminophen [Tylenol] 1,000 mg PO Q8 tab 03/11/19 Apixaban [Eliquis] 2.5 mg PO BID tab 03/11/19 Senna/Docusate Sodium [Senokot-S] 2 tab PO BID PRN PRN tab 03/11/19 Temazepam 30 mg PO QHS PRN #10 cap 03/11/19 Following Prescrptions Were Given to Patient: Oxycodone [Oxyir] 5 - 10 mg PO Q4H PRN PRN 7 Days #60 tab PRN Reason: Pain Prescription Printed Temazepam 30 mg PO QHS PRN #10 cap PRN Reason: Insomnia Prescription Printed Primary Care Physician: Rigoberto Maher MD [Primary Care Provider] - Disposition: Custodial facility Minutes spent on discharge:: 32 Patient Condition:: Stable Medical Necessity - Tobacco Use Smoking Status: Former smoker Meaningful Use Info Meaningful Use Diagnoses (Choose all that apply): None applicable Code Visit Inpatient E&M: 05985 Disch Hosp
--- NOTE | 2019-03-13 10:01 | CASEMGMT ---
Social Work Note Pt discharged to [facility] on Wednesday. SW placed a call to Yanely with [facility] and updated her on this. Maddy Mendes RADIOLOGY TRANSPORTER, COSMETICS MACHINE OPERATOR
== END 2019-03-11 15:17 | disposition skilled nursing facility (03) | DRG 481 ==
LOC: ED 20:13 → MS3 23:06
PROVIDERS: Anesthesiology; Orthopaedic Surgery; Admitting Provider Hospitalist; Emergency Provider Emergency Medicine; Family Provider Family Medicine; PCP Family Medicine; Referring Provider Hospitalist; Visit Provider Internal Medicine
PROC: 0QH634Z Insertion of Internal Fixation Device into Right Upper Femur, Percutaneous Approach (ICD-10-PCS; principal; 2019-03-10 11:30)
DX: S72.011A Unspecified intracapsular fracture of right femur, initial encounter for closed fracture (principal); I13.0 Hypertensive heart and chronic kidney disease with heart failure and stage 1 through stage 4 chronic kidney disease, or unspecified chronic kidney disease; D62 Acute posthemorrhagic anemia; R33.9 Retention of urine, unspecified; K58.9 Irritable bowel syndrome, unspecified; E03.9 Hypothyroidism, unspecified; W18.30XA Fall on same level, unspecified, initial encounter; J45.909 Unspecified asthma, uncomplicated; I73.9 Peripheral vascular disease, unspecified; N18.3 Chronic kidney disease, stage 3 (moderate); E78.5 Hyperlipidemia, unspecified; I34.0 Nonrheumatic mitral (valve) insufficiency; I25.10 Atherosclerotic heart disease of native coronary artery without angina pectoris; I50.9 Heart failure, unspecified; G62.9 Polyneuropathy, unspecified; D50.9 Iron deficiency anemia, unspecified; Z87.891 Personal history of nicotine dependence; Z95.828 Presence of other vascular implants and grafts; Z95.5 Presence of coronary angioplasty implant and graft; Z98.1 Arthrodesis status
CPT/HCPCS: 36415; 71045; 73502; 76000; 80048; 83540; 83550; 84443; 84484; 85014; 85018; 85025; 85027; 85610; 85730; 86850; 86900; 86920; 93005; 97163; 97165; 99283; C1713; J1756; J7030; J7040; P9016; A4216; J2405

== ENCOUNTER → 2019-04-07 | Outpatient (CLI) | payer MEDICARE, OTHER, SELFPAY ==
[2019-03-24 09:42] VITALS: BMI 23.6
--- NOTE | 2019-04-07 09:31 | RAD_ITS ---
STUDY: X-RAY - PELVIS AND RIGHT HIP REASON FOR EXAM: Postoperative. TECHNIQUE: 2 views of the pelvis and hip. COMPARISON: Intraoperative images 03/10/2019. FINDINGS: There is vascular calcification and iliac stents. Normal bilateral iliac wings. There are postoperative changes of the lower lumbar spine with fusion. Normal bilateral superior and inferior pubic rami. Normal pubic symphysis. Normal bilateral ischial tuberosities. There are 3 orthopedic pins transfixing a right femoral neck fracture without interval change. Normal acetabulum. Normal hip joint. RAD/HIP, UNI W/ Pelvis 2-3 Views IMPRESSION: No interval change of ORIF of right femoral neck fracture. Electronically Signed: Mikey Elizabeth MD at 8:55 EDT Tel , Service support ,
== END | disposition home or self-care (01) ==
LOC: HPRAD 09:31
PROVIDERS: Family Provider Family Medicine; PCP Family Medicine; Referring Provider Orthopaedic Surgery; Visit Provider Orthopaedic Surgery
DX: Z47.89 Encounter for other orthopedic aftercare (principal)
CPT/HCPCS: 73502

== ENCOUNTER 2019-04-11 12:11 | Observation (INO) | payer MEDICARE, OTHER, SELFPAY ==
[2019-04-07 09:47] VITALS: BMI 23.6
[2019-04-11] VITALS (8 sets, daily range): BP systolic 120–176; BP diastolic 47–82; PULSE 59–78; RESP 16–18; TEMP 36.4–36.7; O2SAT 100; BMI 24.3; BMI 23.6
[2019-04-11 12:36] LABS: Bedside Glucose 95 mg/dL (70-110)
--- NOTE | 2019-04-11 12:41 | CT_ITS ---
STUDY: CT BRAIN WITHOUT CONTRAST REASON FOR EXAM: Female, 68 years old. Confusion RADIATION DOSAGE (If Supplied By Facility): CTDIvol = ( 60.81 ) mGy, DLP = ( 1044.28 ) mGycm TECHNIQUE: Transaxial CT imaging of the brain was performed without administration of intravenous contrast material. Individualized dose optimization techniques were used for this CT. COMPARISON: No relevant priors. FINDINGS: Normal soft tissue structures. Normal calvarium. There is mild cerebral atrophy with widening of the extra-axial spaces and ventricular dilatation. There are areas of decreased attenuation within the white matter tracts of the supratentorial brain, consistent with microvascular disease changes. Normal basal ganglia and thalami. Normal brainstem. There is mild cerebellar atrophy. There is no intracranial hemorrhage. There are no findings of an acute ischemic infarction. Normal visualized paranasal sinuses. CT/Brain/Head without Contrast IMPRESSION: Chronic involutional changes of the brain. No acute intracranial process. Electronically Signed: Evan Connolly MD at 13:30 EDT Tel [phone], Service support ,
--- NOTE | 2019-04-11 12:41 | EKG12_ITS ---
Test Reason : WEAKNESS Blood Pressure : / mmHG Vent. Rate : 062 BPM Atrial Rate : 062 BPM P-R Int : 182 ms QRS Dur : 086 ms QT Int : 482 ms P-R-T Axes : 037 021 034 degrees QTc Int : 489 ms Normal sinus rhythm Normal ECG Confirmed by ZE LARA ([id number]), associate editor RENETTA SOMMER ([id number]) on 04/17/2019 2:20:16 PM Referred By: Alysia Seals Confirmed By:ZE LARA
--- NOTE | 2019-04-11 12:41 | RAD_ITS ---
STUDY: X-RAY CHEST REASON FOR EXAM: Female, 68 years old. Weakness TECHNIQUE: Single AP portable view of the chest. COMPARISON: 03/08/2019. FINDINGS: The lungs are clear and expanded. There is no demonstrated pleural abnormality. Normal size heart. Normal mediastinum and wendy. Normal visualized pulmonary arteries. Normal visualized aortic arch and descending thoracic aorta. There is a dextroscoliosis of the thoracic spine. Prior surgery of the lower cervical spine and also in the right shoulder joint. There is no demonstrated abnormality of the visualized soft tissue structures of the upper abdomen. RAD/Chest 1 View (Portable) IMPRESSION: No acute intrathoracic process. Electronically Signed: Evan Connolly MD at 13:24 EDT Tel [phone], Service support ,
[2019-04-11 12:55] LABS: Absolute Lymphocyte Count 1.41 X10^3/uL (0.83-4.51); Absolute Neutrophil Count 4.1 X10^3/uL (2.0-7.7); Basophil# 0.04 X10^3/uL; Basophil% 0.7 % (0-1); Eosinophil# 0.07 X10^3/uL; Eosinophils% 1.2 % (0-5); Hematocrit 36.7 % (37-47); Hemoglobin 12.1 g/dL (12.0-15.0); Lymphocyte # 1.41 X10^3/ul (4.0); Lymphocyte % 23.3 % (19-41); Mean Corpuscular Volume 97.1 fL (81-99); Mean Platelet Vol. 9.2 fl (6.2-12.0); Monocyte# 0.38 X10^3/uL; Monocyte% 6.3 % (0-10); NRBC Flagged by Analyzer 0 % (0-5); Neutrophil # 4.13 X10^3/uL (2.7-7.7); Platelet Count 214 K/mm3 (150-450); RBC Distribution Width CV 15.2 % (11.6-14.6); RBC Distribution Width SD 54.7 fl (35.1-43.9); Red Blood Count 3.78 M/mm3 (4.2-5.4); White Blood Count 6.1 K/mm3 (4.4-11.0)
[2019-04-11 13:09] LABS: Anion Gap 6 (5-15); BUN 20 mg/dL (7-18); BUN/Creat Ratio 11.7 RATIO (10-20); Calcium,Total 9.5 mg/dL (8.5-10.1); Chloride 100 mmol/L (98-107); Creatinine, Serum 1.71 mg/dL (0.55-1.02); EST Glomerular Filtration Rate 32 mL/min (>60); Est Glom Filt Rate - Afr Amer 38 mL/min (>60); Estimated Creatinine Clearance 27.95 ml/min; Glucose 92 mg/dL (74-106); Potassium 4.8 mmol/L (3.5-5.1); Sodium Level 132 mmol/L (136-145)
[2019-04-11 13:52] LABS: Bacteria 0 SEEN /hpf (None Seen); Mucous, Urine 0 SEEN /hpf (<or=2+); Red Blood Cells-Urine 0 SEEN /hpf (0-5); White Blood Cells 0 SEEN /hpf (0-5)
[2019-04-11 13:57] LABS: Color, Urine Yellow (Yellow); Glucose, Dipstick Normal (Normal); Ketone-Dipstick Negative (Negative); Leukocyte Esterase-Dipstick Negative /ul (Negative); Nitrite-Dipstick Negative (Negative); Occult Blood-Urine Negative /ul (Negative); Protein-Dipstick Negative (Negative); Urine Bilirubin Dipstick Negative (Negative); Urine Clarity Sl. Cloudy (Clear); Urine Urobilinogen Normal (Normal)
[2019-04-11] MEDS: 0.9% Normal Saline 1,000 ML 150 ML IV (14:01)
[2019-04-11 14:03] LABS: Squamous Epithelial Cells - UA 0-5 SEEN /hpf (5-10)
--- NOTE | 2019-04-11 14:40 | ED.DCSUM_ITS ---
- ER Visit Summary Date of Service: 04/11/19 Chief Complaint: [Weakness] History of Present Illness: The patient is a 68 F [presents to the emergency department complaint of weakness in both legs that started around 9:30 AM. Patient apparently felt like she needed to urinate and went to a [facility] to urinate. After she was finished patient states that she tried to stand up in both her legs felt extremely weak. Her helped to get her to her walker and bring her to table where she sat and became somewhat unresponsive. Patient complained of blurred vision and difficulty speaking. states that symptoms started to clear up after about a half an hour. Patient denies any paresthesias. She denies focal weakness. Patient states that she intermittently has a hard time finding words to speak. She has history of coronary artery disease, hypertension, high cholesterol, and mitral valve prolapse.] Physical Examination: [HEENT-PERRLA, EOMI. Cranial nerves II through XII grossly intact. TMs clear. Mucous membranes moist. No adenopathy. Cardiovascular-regular rate and rhythm without murmur or ectopy Lungs-clear to auscultation, chest wall stable without crepitus or subcu emphysema Abdomen-normoactive bowel sounds, soft, nontender, no rebound or rigidity, no peritoneal signs. Neuro exam-no facial droop. No slurred speech. No obvious focal weakness noted. NIH stroke scale was a 0 Extremities-intact ?4, normal range of motion, normal pulses, atraumatic] Test Results: [CT scan of the brain without contrast unremarkable. EKG obtained shows sinus rhythm with a ventricular rate of 62 bpm with no acute ST segment changes. CBC with differential 6.1, hemoglobin 12, hematocrit 37, platelets 214. Chemistries unremarkable. BUN was 20 creatinine 1.71. Urinalysis was normal. Troponin was less than 0.15. Static vital signs were negative.] Emergency Department Course and Treatment: [] Treatment Plan: [Patient will be admitted for further work-up and evaluation of her symptomatology. This point etiology is uncertain although I suspect possible she may have vasovagal. I cannot completely rule out TIA as a possibility although I feel this is less likely.] Disposition: [Admit] Impression: [Generalized weakness Syncope] This note was generated with [employer] software. It may contain incorrect words, spelling, and punctuation that were not noted in review of the chart prior to signing ED Disposition - Plan for ED Patient: Referrals: Rigoberto Maher MD [Primary Care Provider] -
--- NOTE | 2019-04-11 15:04 | NURSING ---
DR ZAPIEN FOR DR HICKEY
--- NOTE | 2019-04-11 15:12 | NURSING ---
108 [facility]NCOPE, DEBILITY
--- NOTE | 2019-04-11 15:22 | HP.PCM_ITS ---
<Mckenzie Morales - Last Filed: 04/11/19 15:56> Problem List (1) Stroke-like symptoms Status: Acute (2) Fracture of femoral neck, right, closed Status: Resolved Comment: percutaneous screw fixation 03/10/19 (3) Nonrheumatic mitral valve regurgitation Status: Chronic (4) Presence of stent in coronary artery Status: Chronic Comment: PCI/stent of the distal CX; PCI/ALEXANDRO to prox RCA 08/19/06 (5) Renal insufficiency Status: Chronic (6) Congestive heart failure (CHF) Status: Chronic (7) Atherosclerotic heart disease of [place] coronary artery without angina pectoris Status: Chronic Comment: PCI/stent of the distal CX; PCI/ALEXANDRO to prox RCA 08/19/06 (8) Peripheral neuropathy Status: Chronic (9) Hyperlipidemia Status: Chronic (10) Asthma Status: Chronic (11) Hypertension Status: Chronic (12) PAD (peripheral artery disease) Status: Chronic History of Present Illness Date of Admission: 04/11/19 Chief Complaint: speech difficulty, vision changes, lower extremity weakness with fall. The patient is a 68 year old F who presents to the ER due to speech difficulty, vision changes and lower extremity weakness. Patient states around 930 this morning her lower extremities became weak and she fell to the ground. She denies dizziness or loss of consciousness. She then states she developed difficulty finding her words and could not speak appropriately. She reports vision changes as well. She denies facial droop, numbness or tingling. Denies unilateral weakness. She reports she has been told she had a TIA in the past. Her other past medical history of nonrheumatic mitral valve regurgitation, CAD status post stents, chronic kidney disease stage III, CHF, peripheral neuropathy, hypertension, hyperlipidemia, PAD, asthma, IBS, hypothyroidism. Past Medical History Past Medical History (Chronic Problems): Chronic Problems (Last Reviewed 03/09/19 @ 01:46 by Yasmani Teixeira MD) Nonrheumatic mitral valve regurgitation (Chronic) Presence of stent in coronary artery (Chronic) PCI/stent of the distal CX; PCI/ALEXANDRO to prox RCA 08/19/06 Renal insufficiency (Chronic) Congestive heart failure (CHF) (Chronic) Atherosclerotic heart disease of [place] coronary artery without angina pectoris (Chronic) PCI/stent of the distal CX; PCI/ALEXANDRO to prox RCA 08/19/06 Peripheral neuropathy (Chronic) Hyperlipidemia (Chronic) Asthma (Chronic) Hypertension (Chronic) PAD (peripheral artery disease) (Chronic) Medical History: Medical History (Last Reviewed 03/09/19 @ 01:46 by Yasmani Teixeira MD) Nonrheumatic mitral valve regurgitation (Chronic) I34.0 Palpitations (Inactive) R00.2 Renal insufficiency (Chronic) N28.9 Congestive heart failure (CHF) (Chronic) I50.9 Atherosclerotic heart disease of [place] coronary artery without angina pectoris (Chronic) I25.10 PCI/stent of the distal CX; PCI/ALEXANDRO to prox RCA 08/19/06 Peripheral neuropathy (Chronic) G62.9 Hyperlipidemia (Chronic) E78.5 Asthma (Chronic) J45.909 Hypertension (Chronic) I10 PAD (peripheral artery disease) (Chronic) I73.9 ANDRIY (acute kidney injury) N17.9 Cellulitis L03.90 Cellulitis of right lower extremity L03.115 History of DVT (deep vein thrombosis) Z86.718 Urinary retention R33.9 Foot drop, left M21.372 Lumbar disc disease M51.9 Lumbar radiculopathy M54.16 Rheumatoid arthritis M06.9 Spinal stenosis of lumbar region M48.061 Ulcer of left lower extremity with fat layer exposed L97.922 History of hysterectomy Z90.710 Ulcer of right lower extremity with fat layer exposed L97.912 Allergies colesevelam HCl [From WelChol] Allergy (Verified 04/11/19 12:12) Unknown metolazone [From Zaroxolyn] Allergy (Verified 04/11/19 12:12) Unknown nitrofurantoin macrocrystalline [From Macrodantin] Allergy (Verified 04/11/19 12:12) Unknown Penicillins Allergy (Verified 04/11/19 12:12) Unknown PASSED OUT pravastatin sodium [From Pravachol] Allergy (Verified 04/11/19 12:12) Unknown tramadol Adverse Reaction (Verified 04/11/19 12:12) Nausea Home Medications: Ambulatory Orders Medication Instructions Recorded Montelukast [Singulair] 10 mg PO DAILY 06/19/15 Nitroglycerin (INPATIENT USE) 0.4 mg SUBLINGUAL Q5M PRN 06/19/15 [Nitrostat] Ranolazine [Ranexa] 1,000 mg PO BID 06/19/15 Aspirin E.C. [Ecotrin] 81 mg PO DAILYCM tablet 11/05/17 Hydroxyzine HCl 25 mg PO Q6H PRN PRN 02/10/19 Rosuvastatin Calcium 20 mg PO DAILY 02/10/19 Metoprolol Tartrate [Lopressor 25 mg PO DAILY 02/24/19 (beta marvin)] Temazepam 30 mg PO QHS PRN #10 cap 03/11/19 Levothyroxine Sodium [Synthroid] 88 mcg PO DAILY 04/11/19 Linacolotide [Linzess] 145 mcg PO DAILY 04/11/19 Omeprazole 40 mg PO DAILY 04/11/19 Spironolactone [Aldactone] 25 mg PO DAILY 04/11/19 Surgical History: Surgical History (Last Reviewed 03/09/19 @ 01:47 by Yasmani Teixeira MD) Presence of stent in coronary artery (Chronic) Z95.5 PCI/stent of the distal CX; PCI/ALEXANDRO to prox RCA 08/19/06 Postsurgical percutaneous transluminal coronary angioplasty (PTCA) status Z98.61 PCI/stent of the distal CX; PCI/ALEXANDRO to prox RCA 08/19/06 History of bunionectomy of left great toe Z98.890 History of carpal tunnel surgery Z92.89 History of laminectomy Z98.890 Hx of appendectomy Z90.49 Status post insertion of iliac artery stent Z95.828 bilateral 05/29/11 Surgical History: - - coronary stents, femoral stents bilateral lower extremities, lumbar fusion L5, carpal tunnel surgery, appendectomy, right hip replacement. 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 Paternal Family History: Family History (Last Reviewed 03/09/19 @ 01:47 by Yasmani Teiexira MD) Father Heart disease Mother Myocardial infarction, Onset Age: 50 CAD (coronary artery disease) Brother Diabetes History Items: - - The patient's father at age of 82 of congestive heart failure. Review of Systems Constitutional: Denies: Chills, Fever, Weight Change HEENT: Denies: Head Aches, Sinus Congestion, Sinus Drainage Cardiovascular: Denies: Chest Pain, Palpitations Respiratory: Denies: Cough, Shortness of breath at rest, Sputum production Gastrointestinal: Denies: Abdominal Pain, Nausea, Vomiting Genitourinary: Denies: Dysuria Musculoskeletal: Denies: Joint Pain, Joint Tenderness Skin: Denies: Rash, Wounds Neurological: Reports: Balance problems - Lower extremity weakness with fall, Blurred vision, - - Expressive aphasia. Denies: Confusion, Numbness, Tingling Psychiatric: Denies: Anxiety, Depression, Homicidal Ideations, Suicidal Ideations Hematologic/ Lymphatic: Denies: Easy Bruising, Easy Bleeding VTE Information - Inpt Only VTE Present on Admission: No VTE Mechan Device Prophylaxis: None VTE Pharm Prophylaxis ordered?: Yes - Physical Exam General: Alert, Oriented x3, Cooperative HEENT: Atraumatic, PERRLA, EOMI, Normocephalic Neck: Supple, No JVD, Negative Carotid Bruits Lungs: Clear to auscultation, Normal air movement Cardiovascular: Regular rate, Regular Rhythm, Normal S1, Normal S2 Abdomen: Bowel Sounds Present, Soft, Non Tender, Non-Distended Extremities: No clubbing, No cyanosis, No edema, Capillary Refill Less than 3 S econds Skin: No rashes, No breakdown, - - Diffuse vitiligo Musculoskeletal: No Tenderness to Palpation of Joints or Extremities Neurological: Cranial nerves II-XII grossly intact, Neuro grossly intact Psych/Mental Status: Normal Affect, Appropriate Vital Signs Temp Pulse Resp BP Pulse Ox 97.9 F 78 16 120/78 100 04/11/19 12:12 04/11/19 14:18 04/11/19 14:18 04/11/19 14:18 04/11/19 14:18 Oxygen Flow Rate (L/min) 2 Oxygen Delivery Method Nasal Cannula Weight: 141 lb 5.061 oz Body Mass Index (BMI) 24.3 Laboratory Tests Past 24 Hrs 04/11/19 04/11/19 04/11/19 12:30 12:30 13:45 WBC 6.1 RBC 3.78 L Hgb 12.1 Hct 36.7 L MCV 97.1 MCH 32.0 MCHC 33.0 RDW Std Deviation 54.7 H RDW Coeff of Arvind 15.2 H Plt Count 214 MPV 9.2 Immature Gran % (Auto) 0.500 Neut % (Auto) 68.0 Lymph % (Auto) 23.3 [place] % (Auto) 6.3 Eos % (Auto) 1.2 Baso % (Auto) 0.7 Absolute Neuts (auto) 4.1 Absolute Lymphs (auto) 1.41 Nucleated RBC % 0 Sodium 132 L Potassium 4.8 Chloride 100 Carbon Dioxide 26.0 Anion Gap 6 BUN 20 H Creatinine 1.71 H Estim Creat Clear Calc 27.95 Est GFR (MDRD) Af Amer 38 L Est GFR (MDRD) Non-Af 32 L BUN/Creatinine Ratio 11.7 Glucose 92 Calcium 9.5 Troponin I < 0.015 Urine Color Yellow Urine Clarity Sl. Cloudy Urine pH 5.0 Ur Specific [place] 1.010 Urine Protein Negative Urine Glucose (UA) Normal Urine Ketones Negative Urine Occult Blood Negative Urine Nitrite Negative Urine Bilirubin Negative Urine Urobilinogen Normal Ur Leukocyte Esterase Negative Urine RBC 0 SEEN Urine WBC 0 SEEN Ur Squamous Epith Cells 0-5 SEEN Urine Bacteria 0 SEEN Urine Mucus 0 SEEN POC Glucose 04/11/19 12:28 POC Glucose 95 Assessment/Plan All Active Problems (Last Reviewed 03/09/19 @ 01:46 by Yasmani Teixeira MD) Stroke-like symptoms (Acute) Fracture of femoral neck, right, closed (Resolved) Ulcer of left lower leg (Resolved) Ulcer of right lower leg (Resolved) 1. Rule out stroke, expressive aphasia and vision changes as well as sudden lower extremity weakness with fall-brain CT with chronic changes. No acute process. Obtain MRI of brain, MRA of head and neck. Aspirin, statin. [facility]. PT/OT/ST. Fall precautions. 2. Recent right hip screw fixation secondary to traumatic right hip femoral neck fracture- PT/OT. 3. Nonrheumatic mitral valve regurgitation-stable. 4. CAD status post stents-continue aspirin, statin, metoprolol. 5. Chronic iron deficiency anemia-stable. 6. Chronic kidney disease stage III-at baseline, trend BMP. 7. Chronic diastolic CHF-echo January 2019 with EF 65%. Continue with spironolactone, metoprolol. On Ranexa as well? 8. Hypertension-stable, continue home metoprolol, spironolactone regimen. 9. Hyperlipidemia-continue statin. 10. PAD-continue aspirin, statin. 11. 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 12. Chronic asthma-as needed albuterol aerosol. Continue singular regimen. 13. IBS-continue Linzess regimen. 14. Hypothyroidism-continue Synthroid regimen. DVT prophylaxis- heparin sc This patient was seen by MARGARETH Farrar under the supervision of Dr. Seals. <Alysia Seals - Last Filed: 04/11/19 18:53> History of Present Illness The patient is a 68 year old F [] Past Medical History Medical History: Medical History (Last Reviewed 03/09/19 @ 01:46 by Yasmani Teixeira MD) Nonrheumatic mitral valve regurgitation (Chronic) I34.0 Renal insufficiency (Chronic) N28.9 Congestive heart failure (CHF) (Chronic) I50.9 Atherosclerotic heart disease of [place] coronary artery without angina pectoris (Chronic) I25.10 PCI/stent of the distal CX; PCI/ALEXANDRO to prox RCA 08/19/06 Peripheral neuropathy (Chronic) G62.9 Hyperlipidemia (Chronic) E78.5 Asthma (Chronic) J45.909 Hypertension (Chronic) I10 PAD (peripheral artery disease) (Chronic) I73.9 ANDRIY (acute kidney injury) N17.9 Cellulitis L03.90 Cellulitis of right lower extremity L03.115 History of DVT (deep vein thrombosis) Z86.718 Urinary retention R33.9 Foot drop, left M21.372 Lumbar disc disease M51.9 Lumbar radiculopathy M54.16 Rheumatoid arthritis M06.9 Spinal stenosis of lumbar region M48.061 Ulcer of left lower extremity with fat layer exposed L97.922 History of hysterectomy Z90.710 Ulcer of right lower extremity with fat layer exposed L97.912 Allergies colesevelam HCl [From WelChol] Allergy (Verified 04/11/19 12:12) Unknown metolazone [From Zaroxolyn] Allergy (Verified 04/11/19 12:12) Unknown nitrofurantoin macrocrystalline [From Macrodantin] Allergy (Verified 04/11/19 12:12) Unknown Penicillins Allergy (Verified 04/11/19 12:12) Unknown PASSED OUT pravastatin sodium [From Pravachol] Allergy (Verified 04/11/19 12:12) Unknown tramadol Adverse Reaction (Verified 04/11/19 12:12) Nausea Surgical History: Surgical History (Last Reviewed 03/09/19 @ 01:47 by Yasmani Teixeira MD) Presence of stent in coronary artery (Chronic) Z95.5 PCI/stent of the distal CX; PCI/ALEXANDRO to prox RCA 08/19/06 Postsurgical percutaneous transluminal coronary angioplasty (PTCA) status Z98.61 PCI/stent of the distal CX; PCI/ALEXANDRO to prox RCA 08/19/06 History of bunionectomy of left great toe Z98.890 History of carpal tunnel surgery Z92.89 History of laminectomy Z98.890 Hx of appendectomy Z90.49 Status post insertion of iliac artery stent Z95.828 bilateral 05/29/11 - *Family History Maternal Family History: Family History (Last Reviewed 03/09/19 @ 01:47 by Yasmani Teixeira MD) Father Heart disease Mother Myocardial infarction, Onset Age: 50 CAD (coronary artery disease) Brother Diabetes Paternal Family History: Family History (Last Reviewed 03/09/19 @ 01:47 by Yasmani Teixeira MD) Father Heart disease Mother Myocardial infarction, Onset Age: 50 CAD (coronary artery disease) Brother Diabetes - Physical Exam Vital Signs Temp Pulse Resp BP Pulse Ox 98.1 F 61 18 152/47 H 100 04/11/19 16:00 04/11/19 16:11 04/11/19 16:00 04/11/19 16:00 04/11/19 16:00 Oxygen Flow Rate (L/min) 2 Oxygen Delivery Method Room Air Weight: 62.3 kg Body Mass Index (BMI) 23.6 Laboratory Tests Past 24 Hrs 04/11/19 04/11/19 04/11/19 12:30 12:30 13:45 WBC 6.1 RBC 3.78 L Hgb 12.1 Hct 36.7 L MCV 97.1 MCH 32.0 MCHC 33.0 RDW Std Deviation 54.7 H RDW Coeff of [place] 15.2 H Plt Count 214 MPV 9.2 Immature Gran % (Auto) 0.500 Neut % (Auto) 68.0 Lymph % (Auto) 23.3 [place] % (Auto) 6.3 Eos % (Auto) 1.2 Baso % (Auto) 0.7 Absolute Neuts (auto) 4.1 Absolute Lymphs (auto) 1.41 Nucleated RBC % 0 Sodium 132 L Potassium 4.8 Chloride 100 Carbon Dioxide 26.0 Anion Gap 6 BUN 20 H Creatinine 1.71 H Estim Creat Clear Calc 27.95 Est GFR (MDRD) Af Amer 38 L Est GFR (MDRD) Non-Af 32 L BUN/Creatinine Ratio 11.7 Glucose 92 Calcium 9.5 Troponin I < 0.015 Urine Color Yellow Urine Clarity Sl. Cloudy Urine pH 5.0 Ur Specific [place] 1.010 Urine Protein Negative Urine Glucose (UA) Normal Urine Ketones Negative Urine Occult Blood Negative Urine Nitrite Negative Urine Bilirubin Negative Urine Urobilinogen Normal Ur Leukocyte Esterase Negative Urine RBC 0 SEEN Urine WBC 0 SEEN Ur Squamous Epith Cells 0-5 SEEN Urine Bacteria 0 SEEN Urine Mucus 0 SEEN POC Glucose 04/11/19 12:28 POC Glucose 95 Assessment/Plan This patient was seen in conjunction with Mckenzie Morales. I have independently interviewed and examined the patient and reviewed pertinent histo rical, laboratory, and other data. I have reviewed her note and concur with her documentation CC: Generalised weakness, inability to walk, dysarthria - 1 day HPI: 68 y/o with PMHx of CAD s/p stents, recent right hip fracture s/p screw fixation who was comes in with complaints of inability to ambulate that happened suddenly as well as dysarthria. History was taken from the patient and her . She was at work when she felt the need to use the bathroom. She was able to stand up but her legs felt extremely weak. She walked to the bathroom and on her way back she was unable to stand up. He had one help with to her walker and brought her to the table. She sat down in for about 10 minutes was somewhat unresponsive. She had drooling of the left side of the face. And when she came, her symptoms seems to have resolved. However intermittently she will have difficulty talking or expressing herself. Patient says this has happened before. PMHX: Hypertension, Hyperlipidemia, CAD s/p stents, PAD PSHx: Multiple back surgeries, carpal tunnel surgery, appendectomy, right hip replacement, s/p femoral stents to bilateral lower extremities FHX: CAD in father and mother SHX: Denies any smoking, or drinking or illicit drug use. Physical Exam: Vitals: Temp 98.1F, HR 59, BP 152/47, RR 18, Spo2 100% Gen: Appears comfortable, not pale, not jaundiced CVS:HS I +II, regular, no murmurs RESP: CTA GI: BS present and normal, soft, nontender, no palpable organs EXT:No edema in bilateral legs, right hip scar is clean, healed ELEMENT[employer]ER: CNii-XII intact, Power was 5/5 in upper extremities and 4/5 in lower extremities, normal tone Labs: W BC count 6.1, hemoglobin 12.1, platelet count of 214, sodium 132, potassium 4.8, chloride 100, bicarbonate 26, BUN 20, creatinine 1.71, troponins negative TSH is 0.14 ASSESSMENT: 1. Sudden onset of weakness with dysarthria, suggestive of possible TIAs/CVA 2. CAD status post stent, stable 3. Recent right hip screw fixation 4. Iron deficiency anemia 5. CKD stage III 6. Hypertension 7. Hyperlipidemia 8. Hypothyroidism Plan: Admit to PCU TIA/Stroke work-up -MRI of the head, MRA of the head and neck, 2D echo Orthostatic vitals, IV fluids Add Plavix to patient's aspirin regimen Neurology consult PT/OT/ST Code Visit Inpatient E&M: 91312 Init Hosp L3
--- NOTE | 2019-04-11 16:50 | MRI_ITS ---
STUDY: MRI BRAIN WITHOUT CONTRAST REASON FOR EXAM: Female, 68 years old. CVA TECHNIQUE: Standardized multiplanar fat and water weighted pulse sequences were obtained. COMPARISON: CT of the brain on April 11, 2019 FINDINGS: Normal size of the ventricles and extra-axial spaces for the patient's age. Mild periventricular white matter ischemic changes without mass effect or restricted diffusion.. Normal bilateral basal ganglia. Normal thalami. There is no extra-axial fluid accumulation. Normal flow voids within the major intracranial circulation suggesting patency by spin echo criteria. Empty sella deformity of uncertain clinical significance, infundibular stalk, optic chiasm and hypothalamus. Normal tectal plate and pineal gland. Normal midbrain, segun and medulla. Normal cerebellum. Normal basal cisterns. Normal bilateral temporal bones. Normal bilateral internal auditory canals. Postsurgical changes of the orbits.. Minor mucosal thickening of the ethmoid air cells.. Normal calvarium and skull base. Normal visualized soft tissue structures. Normal visualized upper cervical spine. MRI/Brain without Contrast IMPRESSION: Mild periventricular white matter ischemic changes without evidence for acute infarct. Empty sella deformity of uncertain clinical significance Electronically Signed: Brien Pablo MD at 20:17 EDT , Service support ,
--- NOTE | 2019-04-11 16:50 | MRI_ITS ---
STUDY: MRA NECK WITHOUT CONTRAST REASON FOR EXAM: Female, 68 years old. CVA TECHNIQUE: Source images were obtained, MIPs were performed. The study was performed unenhanced. COMPARISON: None. FINDINGS: RIGHT CAROTID ARTERIES: Normal right common carotid artery (CCA). Normal right common carotid bulb. Normal origin of the right internal carotid (ICA) artery without a hemodynamically significant stenosis. Normal visualized cervical portion of the right internal carotid artery. Normal origin of the right external carotid artery (ECA). LEFT CAROTID ARTERIES: Normal left common carotid artery (CCA). Normal left common carotid bulb. Normal origin of the left internal carotid (ICA) artery without a hemodynamically significant stenosis. Normal visualized cervical portion of the left internal carotid artery. Normal origin of the left external carotid artery (ECA). VERTEBRAL ARTERIES: Normal antegrade flow within the bilateral vertebral artery without a hemodynamically significant stenosis. MRI/MRA Neck without Contrast IMPRESSION: Normal bilateral cervical carotid and vertebral arteries. Electronically Signed: Brien Pablo MD at 20:29 EDT , Service support ,
--- NOTE | 2019-04-11 16:50 | MRI_ITS ---
STUDY: MRA OF THE HEAD WITHOUT CONTRAST REASON FOR EXAM: Female, 68 years old. CVA TECHNIQUE: 3-D [id number] (TOF) imaging was performed with MIPs. The study was performed unenhanced. COMPARISON: None. FINDINGS: Normal bilateral petrous carotid arteries. Normal right cavernous carotid artery with a normal supraclinoid bifurcation. Normal left cavernous carotid artery with a normal supraclinoid bifurcation. Normal right A1 segments of the anterior cerebral artery. Normal left A1 segments of the anterior cerebral artery. Normal intact anterior communicating artery (ACOM). Normal bilateral A2 segments of the anterior cerebral arteries. Normal right M1 and M2 segments of the middle cerebral arteries, with a normal M1 bifurcation. Normal left M1 and M2 segments of the middle cerebral arteries, with a normal M1 bifurcation. Posterior communicating arteries not visualized consistent with normal variant Normal bilateral vertebral arteries. Normal basilar artery with a normal basilar bifurcation. The visualized bilateral superior cerebellar (SCA) arteries are normal. Normal bilateral P1, P2 and visualized P3 segments of the posterior cerebral arteries. There is no demonstrated aneurysm of the [place] of [place]. There is no major vessel occlusion or hemodynamically significant stenosis. There is no demonstrated abnormality of the visualized brain. MRI/MRA Head ONLY without Contrast IMPRESSION: Normal MRA of the head Electronically Signed: Brien Pablo MD at 20:18 EDT , Service support ,
[2019-04-11] MEDS: 0.9% Normal Saline 1,000 ML 125 ML IV (17:17)
[2019-04-11 17:51] LABS: Thyroid Stim Hormone (TSH) 0.14 uIU/mL (0.358-3.74)
[2019-04-11] MEDS: Clopidogrel Bisulfate 75 MG Tablet PO (17:58)
[2019-04-11 19:05] LABS: Hemoglobin A1c 4.3 % (4.2-6.3)
[2019-04-11 19:18] LABS: Free T3 1.8 pg/mL (2.18-3.98); T4 Free Direct 0.86 ng/dL (0.76-1.46)
--- NOTE | 2019-04-11 20:17 | NURSING ---
2000 NIHSS/VSA late d/t patient being off floor for MRI/MRA scans.
[2019-04-11] MEDS: Acetaminophen 325 MG Tablet 650 MG PO (20:41)
[2019-04-11 21:09] LABS: Amphetamine Urine VISTA NEGATIVE (<1000 ng/mL); Barbiturate Urine VISTA NEGATIVE (< 200 ng/mL); Benzodiazepine Urine VISTA NEGATIVE (< 200 ng/mL); Cocaine Urine VISTA NEGATIVE (< 300 ng/mL); Ecstacy Urine VISTA NEGATIVE (< 500 ng/mL); Methadone Urine VISTA NEGATIVE (< 300 ng/mL); PCP Urine VISTA NEGATIVE (< 25 ng/mL); THC Urine VISTA NEGATIVE (< 50 ng/mL); Vista UDS pH Range 7
[2019-04-11] MEDS: Ranolazine 500 MG Tablet 1000 MG PO (22:19)
[2019-04-11] MEDS: Heparin Injection (Vial) 5,000 UNIT/ML VIAL 5000 UNIT SC (22:19)
[2019-04-11] MEDS: Atorvastatin Calcium 80 MG Tablet PO (22:19)
[2019-04-11] MEDS: Temazepam 15 MG Capsule 30 MG PO (22:23)
[2019-04-12] VITALS (7 sets, daily range): BP systolic 116–162; BP diastolic 45–64; PULSE 59–68; RESP 16; TEMP 36.4; O2SAT 97–100
[2019-04-12] MEDS: 0.9% Normal Saline 1,000 ML 125 ML IV ×2 (02:24→10:08)
[2019-04-12 05:52] LABS: Anion Gap 6 (5-15); BUN 18 mg/dL (7-18); BUN/Creat Ratio 12.6 RATIO (10-20); Calcium,Total 8.1 mg/dL (8.5-10.1); Chloride 111 mmol/L (98-107); Cholesterol 113 mg/dL (200); Creatinine, Serum 1.43 mg/dL (0.55-1.02); EST Glomerular Filtration Rate 39 mL/min (>60); Est Glom Filt Rate - Afr Amer 47 mL/min (>60); Estimated Creatinine Clearance 33.42 ml/min; Glucose 80 mg/dL (74-106); High Density Lipoprotein 50 mg/dL; Potassium 4.3 mmol/L (3.5-5.1); Sodium Level 140 mmol/L (136-145); Triglycerides 94 mg/dL; Very Low Density Lipoprotein 19 mg/dL (5-40)
[2019-04-12] MEDS: Levothyroxine 88 MCG Tablet PO (06:38)
[2019-04-12] MEDS: Linacolotide 145 MCG CAPSULE PO (06:38)
[2019-04-12] MEDS: Aspirin 81 MG TAB.CHEW PO (08:17)
[2019-04-12] MEDS: Pantoprazole Sodium 40 MG Tablet PO (08:17)
[2019-04-12] MEDS: Ranolazine 500 MG Tablet 1000 MG PO (08:18)
[2019-04-12] MEDS: Montelukast 10 MG Tablet PO (08:19)
[2019-04-12] MEDS: Clopidogrel Bisulfate 75 MG Tablet PO (10:09)
[2019-04-12] MEDS: Heparin Injection (Vial) 5,000 UNIT/ML VIAL 5000 UNIT SC (10:10)
--- NOTE | 2019-04-12 10:35 | PCM.CONS.GEN ---
Reason for Consult Date of Consultation: 04/12/19 Reason for Consultation: weakness History of Present Illness: The patient is a 68 year old right handed female with history of leg weakness and back issues presents with an episode of weakness associated with speech abnormality, lightheaded ness, diaphoresis, n/v yesterday am. improved today, speech still abnormal. no trigger, no recent med changes or illness. 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 reports 6 weeks ago fell and broke her hip s/p orif, reports similar mechanism. one year ago fell, broke shoulder. per admit note:The patient is a 68 year old F who presents to the ER due to speech difficulty, vision changes and lower extremity weakness. Patient states around 930 this morning her lower extremities became weak and she fell to the ground. She denies dizziness or loss of consciousness. She then states she developed difficulty finding her words and could not speak appropriately. She reports vision changes as well. She denies facial droop, numbness or tingling. Denies unilateral weakness. She reports she has been told she had a TIA in the past. Her other past medical history of nonrheumatic mitral valve regurgitation, CAD status post stents, chronic kidney disease stage III, CHF, peripheral neuropathy, hypertension, hyperlipidemia, PAD, asthma, IBS, hypothyroidism. Past Medical History Past Medical History (Chronic Problems): Chronic Problems (Last Reviewed 03/09/19 @ 01:46 by Yasmani Teixeira MD) Nonrheumatic mitral valve regurgitation (Chronic) Presence of stent in coronary artery (Chronic) PCI/stent of the distal CX; PCI/ALEXANDRO to prox RCA 08/19/06 Renal insufficiency (Chronic) Congestive heart failure (CHF) (Chronic) Atherosclerotic heart disease of [place] coronary artery without angina pectoris (Chronic) PCI/stent of the distal CX; PCI/ALEXANDRO to prox RCA 08/19/06 Peripheral neuropathy (Chronic) Hyperlipidemia (Chronic) Asthma (Chronic) Hypertension (Chronic) PAD (peripheral artery disease) (Chronic) Medical History: Medical History (Last Reviewed 03/09/19 @ 01:46 by Yasmani Teixeira MD) Nonrheumatic mitral valve regurgitation (Chronic) I34.0 Renal insufficiency (Chronic) N28.9 Congestive heart failure (CHF) (Chronic) I50.9 Atherosclerotic heart disease of [place] coronary artery without angina pectoris (Chronic) I25.10 PCI/stent of the distal CX; PCI/ALEXANDRO to prox RCA 08/19/06 Peripheral neuropathy (Chronic) G62.9 Hyperlipidemia (Chronic) E78.5 Asthma (Chronic) J45.909 Hypertension (Chronic) I10 PAD (peripheral artery disease) (Chronic) I73.9 ANDRIY (acute kidney injury) N17.9 Cellulitis L03.90 Cellulitis of right lower extremity L03.115 History of DVT (deep vein thrombosis) Z86.718 Urinary retention R33.9 Foot drop, left M21.372 Lumbar disc disease M51.9 Lumbar radiculopathy M54.16 Rheumatoid arthritis M06.9 Spinal stenosis of lumbar region M48.061 Ulcer of left lower extremity with fat layer exposed L97.922 History of hysterectomy Z90.710 Ulcer of right lower extremity with fat layer exposed L97.912 Allergies colesevelam HCl [From WelChol] Allergy (Verified 04/11/19 12:12) Unknown metolazone [From Zaroxolyn] Allergy (Verified 04/11/19 12:12) Unknown nitrofurantoin macrocrystalline [From Macrodantin] Allergy (Verified 04/11/19 12:12) Unknown Penicillins Allergy (Verified 04/11/19 12:12) Unknown PASSED OUT pravastatin sodium [From Pravachol] Allergy (Verified 04/11/19 12:12) Unknown tramadol Adverse Reaction (Verified 04/11/19 12:12) Nausea Home Medications: Ambulatory Orders Medication Instructions Recorded Montelukast [Singulair] 10 mg PO DAILY 06/19/15 Nitroglycerin (INPATIENT USE) 0.4 mg SUBLINGUAL Q5M PRN 06/19/15 [Nitrostat] Ranolazine [Ranexa] 1,000 mg PO BID 06/19/15 Aspirin E.C. [Ecotrin] 81 mg PO DAILYCM tablet 11/05/17 Hydroxyzine HCl 25 mg PO Q6H PRN PRN 02/10/19 Rosuvastatin Calcium 20 mg PO DAILY 02/10/19 Metoprolol Tartrate [Lopressor 25 mg PO DAILY 02/24/19 (beta marvin)] Temazepam 30 mg PO QHS PRN #10 cap 03/11/19 Levothyroxine Sodium [Synthroid] 88 mcg PO DAILY 04/11/19 Linacolotide [Linzess] 145 mcg PO DAILY 04/11/19 Omeprazole 40 mg PO DAILY 04/11/19 Spironolactone [Aldactone] 25 mg PO DAILY 04/11/19 Surgical History: Surgical History (Last Reviewed 03/09/19 @ 01:47 by Yasmani Teixeira MD) Presence of stent in coronary artery (Chronic) Z95.5 PCI/stent of the distal CX; PCI/ALEXANDRO to prox RCA 08/19/06 Postsurgical percutaneous transluminal coronary angioplasty (PTCA) status Z98.61 PCI/stent of the distal CX; PCI/ALEXANDRO to prox RCA 08/19/06 History of bunionectomy of left great toe Z98.890 History of carpal tunnel surgery Z92.89 History of laminectomy Z98.890 Hx of appendectomy Z90.49 Status post insertion of iliac artery stent Z95.828 bilateral 05/29/11 Surgical History: - - coronary stents, femoral stents bilateral lower extremities, lumbar fusion L5, carpal tunnel surgery, appendectomy, right hip replacement. Psychiatric History: No pertinent psych hx SOCIOLOGY PROFESSOR History: No pertinent SOCIOLOGY PROFESSOR history Lives: Spouse/ Significant Other Smoking Status: Former smoker Alcohol: None Drugs: None - *Family History Maternal Family History: Family History (Last Reviewed 03/09/19 @ 01:47 by Yasmani Teixeira MD) Father Heart disease Mother Myocardial infarction, Onset Age: 50 CAD (coronary artery disease) Brother Diabetes History Items: - - The patient's mother in her 60s from lung cancer. Paternal Family History: Family History (Last Reviewed 03/09/19 @ 01:47 by Yasmani Teixeira MD) Father Heart disease Mother Myocardial infarction, Onset Age: 50 CAD (coronary artery disease) Brother Diabetes History Items: - - The patient's father at age of 82 of congestive heart failure. Review of Systems Constitutional: Denies: Chills, Fever, Weight Change HEENT: Denies: Head Aches, Sinus Congestion, Sinus Drainage Cardiovascular: Denies: Chest Pain, Palpitations Respiratory: Denies: Cough, Shortness of breath at rest, Sputum production Gastrointestinal: Denies: Abdominal Pain, Nausea, Vomiting Genitourinary: Denies: Dysuria Musculoskeletal: Denies: Joint Pain, Joint Tenderness Skin: Denies: Rash, Wounds Neurological: Reports: Change in Speech. Denies: Focal weakness, Numbness, Tingling Psychiatric: Denies: Anxiety, Depression, Homicidal Ideations, Suicidal Ideations Hematologic/ Lymphatic: Denies: Easy Bruising, Easy Bleeding - Physical Exam General: Alert, Oriented x3, Cooperative HEENT: Atraumatic, PERRLA, EOMI, Normocephalic Neck: Supple, No JVD, Negative Carotid Bruits Lungs: Clear to auscultation, Normal air movement Cardiovascular: Regular rate, No murmurs Abdomen: Bowel Sounds Present, Soft, Non Tender Extremities: No edema, Capillary Refill Less than 3 Seconds Skin: No rashes, No breakdown Musculoskeletal: No Tenderness to Palpation of Joints or Extremities Neurological: Cranial nerves II-XII grossly intact Psych/Mental Status: Normal Affect, Appropriate Vital Signs Temp Pulse Resp BP Pulse Ox 36.4 C L 64 16 116/45 L 97 04/12/19 06:35 04/12/19 07:43 04/12/19 06:35 04/12/19 06:35 04/12/19 07:15 Oxygen Flow Rate (L/min) 2 Oxygen Delivery Method Room Air Weight: 62.3 kg Body Mass Index (BMI) 23.6 Intake and Output for Last 24 Hours 04/10/19 04/11/19 04/12/19 23:59 23:59 23:59 Intake Total 2471.25 / 2471.25 1397.09 / 1397.09 Balance 2471.25 / 2471.25 1397.09 / 1397.09 Laboratory Tests Past 24 Hrs 04/11/19 04/11/19 04/11/19 12:30 12:30 12:30 WBC 6.1 RBC 3.78 L Hgb 12.1 Hct 36.7 L MCV 97.1 MCH 32.0 MCHC 33.0 RDW Std Deviation 54.7 H RDW Coeff of Arvind 15.2 H Plt Count 214 MPV 9.2 Immature Gran % (Auto) 0.500 Neut % (Auto) 68.0 Lymph % (Auto) 23.3 [place] % (Auto) 6.3 Eos % (Auto) 1.2 Baso % (Auto) 0.7 Absolute Neuts (auto) 4.1 Absolute Lymphs (auto) 1.41 Nucleated RBC % 0 Sodium 132 L Potassium 4.8 Chloride 100 Carbon Dioxide 26.0 Anion Gap 6 BUN 20 H Creatinine 1.71 H Estim Creat Clear Calc 27.95 Est GFR (MDRD) Af Amer 38 L Est GFR (MDRD) Non-Af 32 L BUN/Creatinine Ratio 11.7 Glucose 92 Hemoglobin A1c 4.3 Calcium 9.5 Troponin I < 0.015 Triglycerides Cholesterol LDL Cholesterol VLDL Cholesterol HDL Cholesterol TSH Free T4 Free T3 pg/dL Urine Color Urine Clarity Urine pH Ur Specific [place] Urine Protein Urine Glucose (UA) Urine Ketones Urine Occult Blood Urine Nitrite Urine Bilirubin Urine Urobilinogen Ur Leukocyte Esterase Urine RBC Urine WBC Ur Squamous Epith Cells Urine Bacteria Urine Mucus Urine Opiates Screen Urine Methadone Screen Ur Barbiturates Screen Ur Phencyclidine Scrn Ur Amphetamines Screen U Methamphetamin-MDMA U Benzodiazepines Scrn Urine Cocaine Screen U Cannabinoids Screen Ur Drug Screen Comment 04/11/19 04/11/19 04/11/19 13:45 17:13 17:13 WBC RBC Hgb Hct MCV MCH MCHC RDW Std Deviation RDW Coeff of Arvind Plt Count MPV Immature Gran % (Auto) Neut % (Auto) Lymph % (Auto) [place] % (Auto) Eos % (Auto) Baso % (Auto) Absolute Neuts (auto) Absolute Lymphs (auto) Nucleated RBC % Sodium Potassium Chloride Carbon Dioxide Anion Gap BUN Creatinine Estim Creat Clear Calc Est GFR (MDRD) Af Amer Est GFR (MDRD) Non-Af BUN/Creatinine Ratio Glucose Hemoglobin A1c Calcium Troponin I < 0.015 Triglycerides Cholesterol LDL Cholesterol VLDL Cholesterol HDL Cholesterol TSH 0.14 L Free T4 0.86 Free T3 pg/dL 1.8 L Urine Color Yellow Urine Clarity Sl. Cloudy Urine pH 5.0 Ur Specific [place] 1.010 Urine Protein Negative Urine Glucose (UA) Normal Urine Ketones Negative Urine Occult Blood Negative Urine Nitrite Negative Urine Bilirubin Negative Urine Urobilinogen Normal Ur Leukocyte Esterase Negative Urine RBC 0 SEEN Urine WBC 0 SEEN Ur Squamous Epith Cells 0-5 SEEN Urine Bacteria 0 SEEN Urine Mucus 0 SEEN Urine Opiates Screen Urine Methadone Screen Ur Barbiturates Screen Ur Phencyclidine Scrn Ur Amphetamines Screen U Methamphetamin-MDMA U Benzodiazepines Scrn Urine Cocaine Screen U Cannabinoids Screen Ur Drug Screen Comment 04/11/19 04/12/19 20:40 05:10 WBC RBC Hgb Hct MCV MCH MCHC RDW Std Deviation RDW Coeff of Arvind Plt Count MPV Immature Gran % (Auto) Neut % (Auto) Lymph % (Auto) [place] % (Auto) Eos % (Auto) Baso % (Auto) Absolute Neuts (auto) Absolute Lymphs (auto) Nucleated RBC % Sodium 140 Potassium 4.3 Chloride 111 H Carbon Dioxide 23.0 Anion Gap 6 BUN 18 Creatinine 1.43 H Estim Creat Clear Calc 33.42 Est GFR (MDRD) Af Amer 47 L Est GFR (MDRD) Non-Af 39 L BUN/Creatinine Ratio 12.6 Glucose 80 Hemoglobin A1c Calcium 8.1 L Troponin I Triglycerides 94 Cholesterol 113 LDL Cholesterol 44 VLDL Cholesterol 19 HDL Cholesterol 50 TSH Free T4 Free T3 pg/dL Urine Color Urine Clarity Urine pH Ur Specific [place] Urine Protein Urine Glucose (UA) Urine Ketones Urine Occult Blood Urine Nitrite Urine Bilirubin Urine Urobilinogen Ur Leukocyte Esterase Urine RBC Urine WBC Ur Squamous Epith Cells Urine Bacteria Urine Mucus Urine Opiates Screen NEGATIVE Urine Methadone Screen NEGATIVE Ur Barbiturates Screen NEGATIVE Ur Phencyclidine Scrn NEGATIVE Ur Amphetamines Screen NEGATIVE U Methamphetamin-MDMA NEGATIVE U Benzodiazepines Scrn NEGATIVE Urine Cocaine Screen NEGATIVE U Cannabinoids Screen NEGATIVE Ur Drug Screen Comment POC Glucose 04/11/19 12:28 POC Glucose 95 Current Home Med List Medication Instructions Recorded Confirmed Type Montelukast [Singulair] 10 mg PO DAILY 06/19/15 04/11/19 History Nitroglycerin (INPATIENT USE) 0.4 mg SUBLINGUAL Q5M PRN 06/19/15 04/11/19 History [Nitrostat] Ranolazine [Ranexa] 1,000 mg PO BID 06/19/15 04/11/19 History Aspirin E.C. [Ecotrin] 81 mg PO DAILYCM tablet 11/05/17 04/11/19 Rx Hydroxyzine HCl 25 mg PO Q6H PRN PRN 02/10/19 04/11/19 History Rosuvastatin Calcium 20 mg PO DAILY 02/10/19 04/11/19 History Metoprolol Tartrate [Lopressor 25 mg PO DAILY 02/24/19 04/11/19 History (beta marvin)] Temazepam 30 mg PO QHS PRN #10 cap 03/11/19 04/11/19 Rx Levothyroxine Sodium [Synthroid] 88 mcg PO DAILY 04/11/19 04/11/19 History Linacolotide [Linzess] 145 mcg PO DAILY 04/11/19 04/11/19 History Omeprazole 40 mg PO DAILY 04/11/19 04/11/19 History Spironolactone [Aldactone] 25 mg PO DAILY 04/11/19 04/11/19 History Current Medications Generic Name Dose Route Start Last Admin Trade Name Freq PRN Reason Stop Dose Admin Acetaminophen 650 mg 04/11/19 16:50 04/11/19 20:41 Tylenol PO 650 mg Q6H PRN PRN Administration Mild pain 1-3/Temp > 100.7 F Aspirin 81 mg 04/12/19 08:00 04/12/19 08:17 Aspirin, Baby PO 81 mg DAILY@0800 WANDY Administration Atorvastatin Calcium 80 mg 04/11/19 22:00 04/11/19 22:19 Lipitor PO 80 mg QHS WANDY Administration Clopidogrel Bisulfate 75 mg 04/11/19 17:11 04/12/19 10:09 Plavix PO 75 mg DAILY WANDY Administration Heparin Sodium (Porcine) 5,000 unit 04/11/19 22:00 04/12/19 10:10 Heparin Na SC 5,000 unit Q12 WANDY Administration Levothyroxine Sodium 88 mcg 04/12/19 06:00 04/12/19 06:38 Synthroid PO 88 mcg DAILY@0600 WANDY Administration Linaclotide 145 mcg 04/12/19 07:30 04/12/19 06:38 Linzess PO 145 mcg DAILY@0730 WANDY Administration Montelukast Sodium 10 mg 04/12/19 10:00 04/12/19 08:19 Singulair PO 10 mg DAILY WANDY Administration Ondansetron HCl 4 mg 04/11/19 16:50 Zofran IV Q8H PRN PRN NAUSEA/VOMITING Pantoprazole Sodium 40 mg 04/12/19 10:00 04/12/19 08:17 Protonix PO 40 mg DAILY WANDY Administration Ranolazine 1,000 mg 04/11/19 22:00 04/12/19 08:18 Ranexa PO 1,000 mg BID WANDY Administration Temazepam 30 mg 04/11/19 17:06 04/11/19 22:23 Restoril PO 30 mg QHS PRN Administration INSOMNIA Assessment/Plan All Active Problems (Last Reviewed 03/09/19 @ 01:46 by Yasmani Teixeira MD) Stroke-like symptoms (Acute) Fracture of femoral neck, right, closed (Resolved) Ulcer of left lower leg (Resolved) Ulcer of right lower leg (Resolved) multiple falls, suspect syncope mri/a reviewed, no acute, no stenosis rec dc restoril and bp meds pt as op vigorous hydration when working outside no evidence of primary neurologic impairment
--- NOTE | 2019-04-12 11:00 | CASEMGMT ---
RN CRISS INSTRUCTOR BUS TROLLEY AND TAXI CM to room to meet with patient for initial transition planning/care coordination assessment. ADAM KAHN introduced self and role at [facility]. Pt voices understanding and consents to assessment at this time. Pt resting in bed in no distress at this time. Pt is A/O at this time and answers all questions appropriately. Care providers, pharmacy, and demographics verified/updated at this time. PCP: [facility] Specialists: Elisha--neurology/Ty, Von--cardiology/Ty, Pat--nephrology. Preferred Pharmacy: [facility] Insurance: [facility] [place], [facility] Prescription Benefit: yes Living Will/HPOA: does not have LW or HCPOA . Interested in more information but [facility] would like to talk with at this time to complete paperwork. Provided information on advanced directives and given Social Service rac card in case SW is unable to meet with her today before she is discharged. She was made aware she can call in and make an appt as an out-pt. Pt voices understanding. MAX Holm, made aware pt would like to talk with her about AD. LNOK: Living Arrangements: Lives with . Granddaughter and great-grandson lives with them. Pt able to bath/dress self. assists with cooking/cleaning. Transportation: . [facility] no transportation concerns. DME: has the following DME: shower chair, walker, high-rise toilet seat, Pt states no need for further DME at this time. HHC/SNF: Has been to [facility]. Has not had HHC in the past. is currently going to [facility] OP therapy 3 x's/week. Pt wishes to return home and states has no concerns with going home at time of discharge. States she plans to continue OP therapy @ [facility]. CM to follow for any discharge planning/needs. Pt voices no further concerns/needs at this time. Advised pt to ask for CM if any further questions/concerns/needs arise. Voices understanding. PLAN: Home w/continued OP therapy. Mary Ann VAZQUEZ RN, CM
--- NOTE | 2019-04-12 11:53 | DCINST_ITS ---
You will use the following diet at home:: Regular Call your doctor if you observe: Shortness of breath, Dizziness, Fainting spells, Chest pain Allergies/Adverse Reactions: Allergies colesevelam HCl [From WelChol] Allergy (Verified 04/11/19 12:12) Unknown metolazone [From Zaroxolyn] Allergy (Verified 04/11/19 12:12) Unknown nitrofurantoin macrocrystalline [From Macrodantin] Allergy (Verified 04/11/19 12:12) Unknown Penicillins Allergy (Verified 04/11/19 12:12) Unknown PASSED OUT pravastatin sodium [From Pravachol] Allergy (Verified 04/11/19 12:12) Unknown tramadol Adverse Reaction (Verified 04/11/19 12:12) Nausea Medications to take at Discharge Montelukast [Singulair] 10 mg PO DAILY 06/19/15 Nitroglycerin (INPATIENT USE) [Nitrostat] 0.4 mg SUBLINGUAL Q5M PRN 06/19/15 Ranolazine [Ranexa] 1,000 mg PO BID 06/19/15 Aspirin E.C. [Ecotrin] 81 mg PO DAILYCM tablet 11/05/17 Hydroxyzine HCl 25 mg PO Q6H PRN PRN 02/10/19 Rosuvastatin Calcium 20 mg PO DAILY 02/10/19 Metoprolol Tartrate [Lopressor (beta marvin)] 25 mg PO DAILY 02/24/19 Temazepam 30 mg PO QHS PRN #10 cap 03/11/19 Levothyroxine Sodium [Synthroid] 88 mcg PO DAILY 04/11/19 Linacolotide [Linzess] 145 mcg PO DAILY 04/11/19 Omeprazole 40 mg PO DAILY 04/11/19 Spironolactone [Aldactone] 25 mg PO DAILY 04/11/19 Primary Care Physician: Rigobreto Maher MD [Primary Care Provider] - Please follow up with your Primary Care Physician in: 1 Week Test Results: Test results from this visit will be discussed in further detail at your follow- up appointment, if applicable. Proposed Discharge Date: 04/12/19
[2019-04-12 12:46] LABS: Bedside Glucose 85 mg/dL (70-110)
--- NOTE | 2019-04-12 13:53 | CASEMGMT ---
PT/OT said patient did not do well and is not safe to go home. MAX noted patient just left [facility] a week ago. SW met with patient, introduced self as well as role at [facility]. SW told her about recommendations for prison facility. She said she would like to go back to [facility]. SW provided her with a list in the event [facility] does not work out. MAX called [facility] with referral and also faxed information. Await response. Plan: [facility] pending their acceptance of patient. Alta LAURENT PREASSEMBLER AND INSPECTOR
--- NOTE | 2019-04-12 14:18 | PCM.EXTCARCO ---
- Diet 04/11/19 16:51 Diet: Cardiac/Low Cholesterol Food consistency:: Regular Liquid Consistency:: Regular/Thin - Routine Orders/Code Status Enema Type: Fleetz Enema Frequency: Daily PRN Suppository Type: Dulcolax 10mg Suppository Frequency: Daily PRN Routine Lab Work: CBC, BMP, - - Q Week - Wound(s) LEFT PETTY Wound Type: SCRATCHES - Suggestions for Active Care Change Position every (hours): 2 Times a day to sit in chair: 3 - Therapies Physical Therapy: Eval and Treat Occupational Therapy: Eval and Treat Speech Therapy: Eval and Treat - Problem/Diagnosis (1) Stroke-like symptoms Status: Acute Current Visit: Yes (2) Fracture of femoral neck, right, closed Status: Resolved Comment: percutaneous screw fixation 03/10/19 Current Visit: No (3) Nonrheumatic mitral valve regurgitation Status: Chronic Current Visit: No (4) Presence of stent in coronary artery Status: Chronic Comment: PCI/stent of the distal CX; PCI/ALEXANDRO to prox RCA 08/19/06 Current Visit: No (5) Renal insufficiency Status: Chronic Current Visit: No (6) Congestive heart failure (CHF) Status: Chronic Current Visit: No (7) Atherosclerotic heart disease of [place] coronary artery without angina pectoris Status: Chronic Comment: PCI/stent of the distal CX; PCI/ALEXANDRO to prox RCA 08/19/06 Current Visit: No (8) Peripheral neuropathy Status: Chronic Current Visit: No (9) Hyperlipidemia Status: Chronic Current Visit: No (10) Asthma Status: Chronic Current Visit: No (11) Hypertension Status: Chronic Current Visit: No (12) PAD (peripheral artery disease) Status: Chronic Current Visit: No - Allergies/Procedures Done in Hospital Allergies/Adverse Reactions: Allergies colesevelam HCl [From WelChol] Allergy (Verified 04/11/19 12:12) Unknown metolazone [From Zaroxolyn] Allergy (Verified 04/11/19 12:12) Unknown nitrofurantoin macrocrystalline [From Macrodantin] Allergy (Verified 04/11/19 12:12) Unknown Penicillins Allergy (Verified 04/11/19 12:12) Unknown PASSED OUT pravastatin sodium [From Pravachol] Allergy (Verified 04/11/19 12:12) Unknown tramadol Adverse Reaction (Verified 04/11/19 12:12) Nausea Procedures: None - Type of Care/Length of Stay Estimated LOS: Convalescent Care Less Than 30 days Type of Care Needed: Skilled Rehab Potential: Good Prognosis: Good - Additional Orders/Day of Discharge H&P will serve as current which was dated: 04/11/19 Day of Discharge: 04/12/19 - Dietary and Speech Recommendations Speech Linguistic Eval Summary: The pt is a 68/F with pmhx significant for nonrheumatic mitral valve regurgitation, presence of stent in coronary artery, renal insufficiency, CHF, atherosclerotic heart disease of [place] coronary artery without angina pectoris, peripheral neuropathy, hyperlipidemia, asthma, hypertension, and peripheral artery disease. Pt presented to [facility] ED on 04/11/2019 with speech difficulty, vision changes and lower extremity weakness. Brain MRI revealed mild periventricular white matter ischemic changes without evidence for acute infarct. Pt oriented to name, , date, location, and reason for admission including many details leading up to hospital presentation. Pt able to name objects in room and name 17 animals in one minute. Some delay noted in word finding with occasional word fumbling noted. However pt also noted to speak clearly through most of the ST eval. Upon examination of oral musculature, no facial drooping or asymmetry noted. Pt able to recall 2/3 words stated to her with 5 minute delay. Would anticipate remaining mild speech deficits to resolve. No further skilled speech therapy warranted at this time. Pt aware to notify physician if concerned with speech after discharge. - Follow Up Care Primary Care Physician: Rigoberto Maher MD [Primary Care Provider] - Please follow up with your Primary Care Physician in: 1 Week Please Follow Up With: Matilde Lyle MD When: 1-2 Weeks
--- NOTE | 2019-04-12 14:30 | NURSING ---
HEARD A LOUD SCREAM AND RAN TO ROOM AND PT WITH DYSPNEA AND WITH INVOLUNTARY JERKING TO RT SIDE APPROX 5SEC WHILE STAFF IN ROOM. AGAIN PT WITH SOME EXPRESSIVE APHASIA THAT COMES AND GOES. PT STATED, I JUST DONT WANT THEM TO SEND ME HOME LIKE THIS. I KNOW THINGS CAME BACK NORMAL BUT ITS NOT SAFE FOR ME TO GO BACK HOME BP 202/79. PT A&OX3 WITH NO POST ICTAL SIGNS. LEEANN FRANCIS AWARE AND HOTEL SERVICE SUPERVISOR TO ROOM. PT MADE AWARE THAT IS STAYING AND WILL GO BACK TO [facility] AND NOT HOME. PT CALMS SOME BUT WANTS TO HAVE CALLED.
--- NOTE | 2019-04-12 15:03 | PCM.DC.SUM ---
Discharge Date and Diagnosis Date of Admission: 04/11/19 Date of Discharge: 04/12/19 - Primary Discharge Diagnosis Active and Suspected Problems (Last Reviewed 03/09/19 @ 01:46 by Yasmani Teixeira MD) Stroke-like symptoms (Acute) - Secondary Discharge Diagnosis Chronic Problems (Last Reviewed 03/09/19 @ 01:46 by Yasmani Teixeira MD) Nonrheumatic mitral valve regurgitation (Chronic) Presence of stent in coronary artery (Chronic) PCI/stent of the distal CX; PCI/ALEXANDRO to prox RCA 08/19/06 Renal insufficiency (Chronic) Congestive heart failure (CHF) (Chronic) Atherosclerotic heart disease of [place] coronary artery without angina pectoris (Chronic) PCI/stent of the distal CX; PCI/ALEXANDRO to prox RCA 08/19/06 Peripheral neuropathy (Chronic) Hyperlipidemia (Chronic) Asthma (Chronic) Hypertension (Chronic) PAD (peripheral artery disease) (Chronic) Hospital Course and Treatment Operations: None Summary of Care Provided: The patient is a 68 year old F [] - Physical Exam Vital Signs Temp Pulse Resp BP Pulse Ox 97.5 F L 68 16 162/64 H 100 04/12/19 12:20 04/12/19 12:20 04/12/19 12:20 04/12/19 12:20 04/12/19 12:20 Oxygen Flow Rate (L/min) 2 Oxygen Delivery Method Room Air Weight: 137 lb 5.568 oz Body Mass Index (BMI) 23.6 Intake and Output for Last 24 Hours 04/10/19 04/11/19 04/12/19 23:59 23:59 23:59 Intake Total 2471.25 / 2471.25 1620.01 / 1620.01 Balance 2471.25 / 2471.25 1620.01 / 1620.01 Laboratory Tests Past 24 Hrs 04/11/19 04/11/19 04/11/19 12:30 17:13 17:13 Sodium Potassium Chloride Carbon Dioxide Anion Gap BUN Creatinine Estim Creat Clear Calc Est GFR (MDRD) Af Amer Est GFR (MDRD) Non-Af BUN/Creatinine Ratio Glucose Hemoglobin A1c 4.3 Calcium Troponin I < 0.015 Triglycerides Cholesterol LDL Cholesterol VLDL Cholesterol HDL Cholesterol TSH 0.14 L Free T4 0.86 Free T3 pg/dL 1.8 L Urine Opiates Screen Urine Methadone Screen Ur Barbiturates Screen Ur Phencyclidine Scrn Ur Amphetamines Screen U Methamphetamin-MDMA U Benzodiazepines Scrn Urine Cocaine Screen U Cannabinoids Screen Ur Drug Screen Comment 04/11/19 04/12/19 20:40 05:10 Sodium 140 Potassium 4.3 Chloride 111 H Carbon Dioxide 23.0 Anion Gap 6 BUN 18 Creatinine 1.43 H Estim Creat Clear Calc 33.42 Est GFR (MDRD) Af Amer 47 L Est GFR (MDRD) Non-Af 39 L BUN/Creatinine Ratio 12.6 Glucose 80 Hemoglobin A1c Calcium 8.1 L Troponin I Triglycerides 94 Cholesterol 113 LDL Cholesterol 44 VLDL Cholesterol 19 HDL Cholesterol 50 TSH Free T4 Free T3 pg/dL Urine Opiates Screen NEGATIVE Urine Methadone Screen NEGATIVE Ur Barbiturates Screen NEGATIVE Ur Phencyclidine Scrn NEGATIVE Ur Amphetamines Screen NEGATIVE U Methamphetamin-MDMA NEGATIVE U Benzodiazepines Scrn NEGATIVE Urine Cocaine Screen NEGATIVE U Cannabinoids Screen NEGATIVE Ur Drug Screen Comment POC Glucose 04/12/19 12:34 POC Glucose 85 Home Medications: Medications to take at Discharge Montelukast [Singulair] 10 mg PO DAILY 06/19/15 Nitroglycerin (INPATIENT USE) [Nitrostat] 0.4 mg SUBLINGUAL Q5M PRN 06/19/15 Ranolazine [Ranexa] 1,000 mg PO BID 06/19/15 Aspirin E.C. [Ecotrin] 81 mg PO DAILYCM tablet 11/05/17 Hydroxyzine HCl 25 mg PO Q6H PRN PRN 02/10/19 Rosuvastatin Calcium 20 mg PO DAILY 02/10/19 Metoprolol Tartrate [Lopressor (beta marvin)] 25 mg PO DAILY 02/24/19 Levothyroxine Sodium [Synthroid] 88 mcg PO DAILY 04/11/19 Linacolotide [Linzess] 145 mcg PO DAILY 04/11/19 Omeprazole 40 mg PO DAILY 04/11/19 Spironolactone [Aldactone] 25 mg PO DAILY 04/11/19 Primary Care Physician: Rigoberto Maher MD [Primary Care Provider] - Please Follow Up With: Matilde Lyle MD When: 1-2 Weeks Medical Necessity - Tobacco Use Smoking Status: Former smoker
--- NOTE | 2019-04-12 15:13 | NURSING ---
PT CALLED OUT AND ASKING FOR BSC. RN IN TO DO ASSESSMENT AND TO HELP WITH TRANSFER WITH TOUR OPERATOR. PT WITH CONTINUED BIZARRE BEHAVIOR. REPORTS THAT ARMS FEELING NUMB AND THRASHING THEM ABOUT THE BED. MOOD SWINGS OBS. PT DEMANDED WATER THEN APOLOGIZED AND TEARFUL. UP TO SIDE OF BED AND BEFORE EVEN GOT GAIT BELT AROUND PT THRASHING ARMS AND LEGS ABOUT AND YELLING OUT. WHEN INSTRUCTED TO STOP YELLING AND OPEN EYES AND CALM DOWN PT DID SO. UP TO STAND BUT PT CURLED LEGS UNDER HERE AND REFUSING TO STAND. PT A LIFT TO BSC AND LAYS BACK IN CHAIR ONCE PLACED. PT POSTITIONED ON BSC BUT UNABLE TO GO. TALKED WITH PT REGARDING CLINICAL FINDINGS AND NO REAL CORRELATION OF SYMPTOMS OR BEHAVIORS. PT STATED, I KNOW THEY THINK ITS IN MY HEAD. THIS HAS HAPPENED TWICE NOW. AND WHEN PT CONFRONTED WITH THE FACT OF SYMPTOMS NOT STARTING TILL WAS TOLD WAS GOING TO BE DC'D TRIED TO DEFEND SELF ON WHEN THE ATTACKS HAPPENED TODAY. PT UNABLE TO VOID AND ATTEMPTED TO PLACE FEET AT 90 [address] SO COULD STAND BUT KEEPS LEGS STIFF AND REFUSING TO USE ARMS OR ASSIST STAFF WITH TRANSFER. BACK TO BED AND SCREAMS OUT. BED EXIT ON FOR SAFTEY. WILL MONITOR. CRISS AND LEEANN FRANCIS AWARE AND POSS NEED OF MEAGAN GARCIA.
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
[2019-04-12] MEDS: Spironolactone 25 MG Tablet PO (15:25)
[2019-04-12] MEDS: Acetaminophen 325 MG Tablet 650 MG PO (15:25)
--- NOTE | 2019-04-12 15:26 | CASEMGMT ---
MAX spoke with RN who told SW about patient's bizarre behaviors. SW received call from Breanna at [facility] and they can accept patient. SW went to patient's room. She was resting in bed. She had what looked like tears under her eyes. MAX told her [facility] can accept her today. SW asked if she has a lot of stress at home. She started twitching with her arms, and face. Her speech was broken up so it was hard to understand her. MAX told her that it sounds like she has a lot of stress right now. MAX told her that everyone has different reactions to extreme stress. MAX told her some people get sick some have headaches etc. SW told her it sounds like her reaction to her extreme stress is coming out through psychiatric like behaviors. MAX told her it would be a good idea to have her evaluated to see if she needs admission to a psychiatric hospital to help stabilize her mental status. MAX thought she said it has happened before, but when SW asked her if she has been to a psych unit she said no. She said her is on his way in to the hospital. She mentioned her voodoo. She was tearful and asked if SW could come back and ask questions when her gets here. Her sentence was not this clear it was very fragmented. MAX spoke with Nurse Practitioner who agrees with a crisis consult for possible Psych admission. MAX called [facility] and spoke with Ye in the Crisis Dept. He will come in and see patient. Alta LEDESMA
--- NOTE | 2019-04-12 15:48 | CASEMGMT ---
Crisis is here to see patient. Alta LAURENT [employer] ARCHITECT
--- NOTE | 2019-04-12 16:31 | NURSING ---
CRISIS HERE AND IN ROOM TO EVAL. ABSOLUTELY NO SPEECH DIFF AND ABLE TO TALK WITH CRISIS WITH NO DIFF. CM IN TO TELL PT HAS BED AT [facility] AND WILL ARRANGE TRANSPORTATION. PT FACE TIMING WITH [employer] NOW ON PHONE AND SHOWING CM. USING PHONE AND ARMS APPROP IN BED NOW.
--- NOTE | 2019-04-12 16:41 | CASEMGMT ---
Crisis came to see patient and cleared her. She acted completely normal, meaning she had no speech issues, no twitching, no crying. She said she is ready to go to [facility]. MAX called [facility] and arranged for patient to get picked up at [facility] via cot as patient cannot stand or walk etc. SW notified RN, secretary bookkeeper, and patient. MAX called Ernestine at [facility] and let her know. SW let her know that patient had some episodes of odd behavior. She was twitching, her speech was fragmented. MAX explained she is under a lot of stress at home currently and we feel this is her reaction to her stress. PASRR was completed as patient is observation status. Plan: [facility] under skilled level of care on a PASRR as she is observation status. [facility] transported via cot. Alta LAURENT MSW
--- NOTE | 2019-04-12 17:01 | DS.PCM_ITS ---
<Mckenzie Morales - Last Filed: 04/12/19 17:06> Discharge Date and Diagnosis Date of Admission: 04/11/19 Date of Discharge: 04/12/19 - Primary Discharge Diagnosis 1. Intermittent expressive aphasia, lower extremity weakness with fall and spastic movements-CVA ruled out. Suspect presenting symptoms are psychiatric in nature, possible conversion disorder. 2. Recent right hip screw fixation secondary to traumatic right hip femoral neck fracture 3. Nonrheumatic mitral valve regurgitation 4. CAD status post stents 5. Chronic iron deficiency anemia 6. Chronic kidney disease stage III 7. Chronic diastolic CHF 8. Hypertension 9. Hyperlipidemia 10. PAD 11. Degenerative disc disease of the lumbar spine with history of lumbar spine fusion 12. Chronic asthma 13. IBS 14. Hypothyroidism - Secondary Discharge Diagnosis Chronic Problems (Last Reviewed 03/09/19 @ 01:46 by Yasmani Teixeira MD) Nonrheumatic mitral valve regurgitation (Chronic) Presence of stent in coronary artery (Chronic) PCI/stent of the distal CX; PCI/ALEXANDRO to prox RCA 08/19/06 Renal insufficiency (Chronic) Congestive heart failure (CHF) (Chronic) Atherosclerotic heart disease of [place] coronary artery without angina pectoris (Chronic) PCI/stent of the distal CX; PCI/ALEXANDRO to prox RCA 08/19/06 Peripheral neuropathy (Chronic) Hyperlipidemia (Chronic) Asthma (Chronic) Hypertension (Chronic) PAD (peripheral artery disease) (Chronic) Hospital Course and Treatment Imaging Results: Diagnostic Data Brain CT 04/11/19 12:41 IMPRESSION: Chronic involutional changes of the brain. No acute intracranial process. Electronically Signed: Evan Connolly MD at 13:30 EDT Tel [phone], Service support , Chest X-Ray 04/11/19 12:41 IMPRESSION: No acute intrathoracic process. Electronically Signed: Evan Connolly MD at 13:24 EDT Tel [phone], Service support , Brain MRI 04/11/19 16:50 IMPRESSION: Mild periventricular white matter ischemic changes without evidence for acute infarct. Empty sella deformity of uncertain clinical significance Electronically Signed: Brien Pablo MD at 20:17 EDT , Service support , Head MRA 04/11/19 16:50 IMPRESSION: Normal MRA of the head Electronically Signed: Brien Pablo MD at 20:18 EDT , Service support , Neck MRA 04/11/19 16:50 IMPRESSION: Normal bilateral cervical carotid and vertebral arteries. Electronically Signed: Brien Pablo MD at 20:29 EDT , Service support , Dr. Niño- Neurology Operations: None Procedures: None Summary of Care Provided: The patient is a 68 year old F admitted 04/11/2019 due to speech difficulty, vision changes and lower extremity weakness with fall. 1. Intermittent expressive aphasia, lower extremity weakness with fall and spastic movements-CVA ruled out. Brain CT with chronic changes. No acute process. MRI of brain shows no acute infarct. MRA of neck shows normal bilateral cervical carotid and vertebral arteries. Neurology consulted. Suspects syncope however patient has not had any syncopal events. Suspect presenting symptoms are psychiatric in nature, possible conversion disorder. Patient reports she is under increased stress due to taking custody of her grandchildren. Her grandson ingested one of her temazepam pills at her home earlier today and her is currently in the ER with him getting evaluated. Per nursing, after receiving this news her behavior became increasingly erratic and symptoms worsened. Crisis evaluation placed. Patient's behavior significantly changed during crisis evaluation and she had no further speech issues or abnormal movements. She wishes to continue discharge to intermediate facility. Patient discharged in stable condition. Follow-up with primary care provider in 1 week. Recommend follow-up with neurology, Dr. Lyle in 1-2 weeks and establishing with psychiatry as well. 2. Recent right hip screw fixation secondary to traumatic right hip femoral neck fracture- PT/OT. 3. Nonrheumatic mitral valve regurgitation-stable. 4. CAD status post stents-continue aspirin, statin, metoprolol. 5. Chronic iron deficiency anemia-stable. 6. Chronic kidney disease stage III-at baseline, trend BMP. 7. Chronic diastolic CHF-echo January 2019 with EF 65%. Continue with spironolactone, metoprolol. On Ranexa as well? 8. Hypertension-stable, continue home metoprolol, spironolactone regimen. 9. Hyperlipidemia-continue statin. 10. PAD-continue aspirin, statin. 11. 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 12. Chronic asthma-as needed albuterol aerosol. Continue singular regimen. 13. IBS-continue Linzess regimen. 14. Hypothyroidism-continue Synthroid regimen. General: Alert, Oriented x3, Cooperative HEENT: Atraumatic, PERRLA, EOMI, Normocephalic Neck: Supple, No JVD, Negative Carotid Bruits Lungs: Clear to auscultation, Normal air movement Cardiovascular: Regular rate, Regular Rhythm, Normal S1, Normal S2, No murmurs Abdomen: Bowel Sounds Present, Soft, Non Tender Extremities: No clubbing, No cyanosis, No edema, Capillary Refill Less than 3 Seconds Skin: No rashes, No breakdown, - - Diffuse vitiligo Musculoskeletal: No Tenderness to Palpation of Joints or Extremities Neurological: Cranial nerves II-XII grossly intact, Neuro grossly intact, - - Intermittent expressive aphasia and spastic movements. Psych/Mental Status: Anxious Patient seen and examined prior to discharge. Physical assessment as noted above. Patient is stable for discharge with follow up recommendations as noted above. This patient was seen by MARGARETH Farrar under the supervision of Dr. Dang. - Physical Exam Vital Signs Temp Pulse Resp BP Pulse Ox 97.5 F L 68 16 162/64 H 100 04/12/19 12:20 04/12/19 12:20 04/12/19 12:20 04/12/19 12:20 04/12/19 12:20 Oxygen Flow Rate (L/min) 2 Oxygen Delivery Method Room Air Weight: 137 lb 5.568 oz Body Mass Index (BMI) 23.6 Intake and Output for Last 24 Hours 04/10/19 04/11/19 04/12/19 23:59 23:59 23:59 Intake Total 2471.25 / 2471.25 1620.01 / 1620.01 Balance 2471.25 / 2471.25 1620.01 / 1620.01 Laboratory Tests Past 24 Hrs 04/11/19 04/11/19 04/11/19 12:30 17:13 17:13 Sodium Potassium Chloride Carbon Dioxide Anion Gap BUN Creatinine Estim Creat Clear Calc Est GFR (MDRD) Af Amer Est GFR (MDRD) Non-Af BUN/Creatinine Ratio Glucose Hemoglobin A1c 4.3 Calcium Troponin I < 0.015 Triglycerides Cholesterol LDL Cholesterol VLDL Cholesterol HDL Cholesterol TSH 0.14 L Free T4 0.86 Free T3 pg/dL 1.8 L Urine Opiates Screen Urine Methadone Screen Ur Barbiturates Screen Ur Phencyclidine Scrn Ur Amphetamines Screen U Methamphetamin-MDMA U Benzodiazepines Scrn Urine Cocaine Screen U Cannabinoids Screen Ur Drug Screen Comment 04/11/19 04/12/19 20:40 05:10 Sodium 140 Potassium 4.3 Chloride 111 H Carbon Dioxide 23.0 Anion Gap 6 BUN 18 Creatinine 1.43 H Estim Creat Clear Calc 33.42 Est GFR (MDRD) Af Amer 47 L Est GFR (MDRD) Non-Af 39 L BUN/Creatinine Ratio 12.6 Glucose 80 Hemoglobin A1c Calcium 8.1 L Troponin I Triglycerides 94 Cholesterol 113 LDL Cholesterol 44 VLDL Cholesterol 19 HDL Cholesterol 50 TSH Free T4 Free T3 pg/dL Urine Opiates Screen NEGATIVE Urine Methadone Screen NEGATIVE Ur Barbiturates Screen NEGATIVE Ur Phencyclidine Scrn NEGATIVE Ur Amphetamines Screen NEGATIVE U Methamphetamin-MDMA NEGATIVE U Benzodiazepines Scrn NEGATIVE Urine Cocaine Screen NEGATIVE U Cannabinoids Screen NEGATIVE Ur Drug Screen Comment POC Glucose 04/12/19 12:34 POC Glucose 85 Home Medications: Medications to take at Discharge Montelukast [Singulair] 10 mg PO DAILY 06/19/15 Nitroglycerin (INPATIENT USE) [Nitrostat] 0.4 mg SUBLINGUAL Q5M PRN 06/19/15 Ranolazine [Ranexa] 1,000 mg PO BID 06/19/15 Aspirin E.C. [Ecotrin] 81 mg PO DAILYCM tablet 11/05/17 Hydroxyzine HCl 25 mg PO Q6H PRN PRN 02/10/19 Rosuvastatin Calcium 20 mg PO DAILY 02/10/19 Metoprolol Tartrate [Lopressor (beta marvin)] 25 mg PO DAILY 02/24/19 Levothyroxine Sodium [Synthroid] 88 mcg PO DAILY 04/11/19 Linacolotide [Linzess] 145 mcg PO DAILY 04/11/19 Omeprazole 40 mg PO DAILY 04/11/19 Spironolactone [Aldactone] 25 mg PO DAILY 04/11/19 Primary Care Physician: Rigoberto Maher MD [Primary Care Provider] - Please follow up with your Primary Care Physician in: 1 Week Please Follow Up With: Matilde Lyle MD When: 1-2 Weeks Disposition: Residential facility Minutes spent on discharge:: 35 Patient Condition:: Stable Medical Necessity - Tobacco Use Smoking Status: Former smoker Meaningful Use Info Meaningful Use Diagnoses (Choose all that apply): None applicable <Mg Dang - Last Filed: 04/12/19 17:36> Discharge Date and Diagnosis - Secondary Discharge Diagnosis Chronic Problems (Last Reviewed 03/09/19 @ 01:46 by Yasmani Teixeira MD) Nonrheumatic mitral valve regurgitation (Chronic) Presence of stent in coronary artery (Chronic) PCI/stent of the distal CX; PCI/ALEXANDRO to prox RCA 08/19/06 Renal insufficiency (Chronic) Congestive heart failure (CHF) (Chronic) Atherosclerotic heart disease of [place] coronary artery without angina pectoris (Chronic) PCI/stent of the distal CX; PCI/ALEXANDRO to prox RCA 08/19/06 Peripheral neuropathy (Chronic) Hyperlipidemia (Chronic) Asthma (Chronic) Hypertension (Chronic) PAD (peripheral artery disease) (Chronic) Hospital Course and Treatment Operations: None Procedures: None Summary of Care Provided: Patient seen and examined independently. Data reviewed. I agree with the above note by the nurse practitioner. Patient presents with numerous somatic complaints: speech difficulty, weakness. He underwent a CVA work up was negative. Likely psychiatric, which symptoms worsened apparently when she received some bad news. Discharged to SNF. [] - Physical Exam General: Alert, No apparent distress HEENT: Atraumatic, Normocephalic Oral: Moist Mucosa, No Gingival or Mucosal Lesions/ Ulcerations Neck: No Nodes, Thyroid Normal Size and Texture Lungs: Clear to auscultation, Normal air movement, No rhonchi, No wheeze, No rales Cardiovascular: Regular rate, Regular Rhythm, Normal S1, Normal S2, No murmurs Psych/Mental Status: Anxious Vital Signs Temp Pulse Resp BP Pulse Ox 36.4 C L 68 16 162/64 H 100 04/12/19 12:20 04/12/19 12:20 04/12/19 12:20 04/12/19 12:20 04/12/19 12:20 Oxygen Flow Rate (L/min) 2 Oxygen Delivery Method Room Air Weight: 62.3 kg Body Mass Index (BMI) 23.6 Intake and Output for Last 24 Hours 04/10/19 04/11/19 04/12/19 23:59 23:59 23:59 Intake Total 2471.25 / 2471.25 1620.01 / 1620.01 Balance 2471.25 / 2471.25 1620.01 / 1620.01 Laboratory Tests Past 24 Hrs 04/11/19 04/11/19 04/11/19 12:30 17:13 17:13 Sodium Potassium Chloride Carbon Dioxide Anion Gap BUN Creatinine Estim Creat Clear Calc Est GFR (MDRD) Af Amer Est GFR (MDRD) Non-Af BUN/Creatinine Ratio Glucose Hemoglobin A1c 4.3 Calcium Troponin I < 0.015 Triglycerides Cholesterol LDL Cholesterol VLDL Cholesterol HDL Cholesterol TSH 0.14 L Free T4 0.86 Free T3 pg/dL 1.8 L Urine Opiates Screen Urine Methadone Screen Ur Barbiturates Screen Ur Phencyclidine Scrn Ur Amphetamines Screen U Methamphetamin-MDMA U Benzodiazepines Scrn Urine Cocaine Screen U Cannabinoids Screen Ur Drug Screen Comment 04/11/19 04/12/19 20:40 05:10 Sodium 140 Potassium 4.3 Chloride 111 H Carbon Dioxide 23.0 Anion Gap 6 BUN 18 Creatinine 1.43 H Estim Creat Clear Calc 33.42 Est GFR (MDRD) Af Amer 47 L Est GFR (MDRD) Non-Af 39 L BUN/Creatinine Ratio 12.6 Glucose 80 Hemoglobin A1c Calcium 8.1 L Troponin I Triglycerides 94 Cholesterol 113 LDL Cholesterol 44 VLDL Cholesterol 19 HDL Cholesterol 50 TSH Free T4 Free T3 pg/dL Urine Opiates Screen NEGATIVE Urine Methadone Screen NEGATIVE Ur Barbiturates Screen NEGATIVE Ur Phencyclidine Scrn NEGATIVE Ur Amphetamines Screen NEGATIVE U Methamphetamin-MDMA NEGATIVE U Benzodiazepines Scrn NEGATIVE Urine Cocaine Screen NEGATIVE U Cannabinoids Screen NEGATIVE Ur Drug Screen Comment POC Glucose 04/12/19 12:34 POC Glucose 85 Discharge Diet: No Restrictions Disposition: Residential facility Patient Condition:: Stable Medical Necessity - Tobacco Use Smoking Status: Former smoker Meaningful Use Info Meaningful Use Diagnoses (Choose all that apply): None applicable Code Visit OBSV E&M: 48922 Observation care discharge
--- NOTE | 2019-04-12 17:47 | NURSING ---
TELE AND IV DC'D AND PT A&O AND APPROP IN BED WITH NO BEHAVIORS SEEN. AWARE THAT WILL GO TO W AND AMMUNITION ASSEMBLY II LABORER TIME. VISOTOR IN AT BEDSIDE NOW.
--- NOTE | 2019-04-12 17:48 | NURSING ---
REPORT CALLED TO JAMEL MEDINA AT [facility] AND WHEN DESCRIBED PT'S OUTBURSTS AND BIZARRE BEHAVIORS WAS REPORTED THAT SHE DID SIMILAR THING OFTEN OVER AT [facility] AND THAT WAS WORKED UP AND NOTHING DETERMINED AND THAT JUST HAD TO IGNORE PT WHEN WAS ACTING LIKE THAT.
== END 2019-04-12 11:54 | disposition skilled nursing facility (03) ==
LOC: ED 12:50 → PCU 15:12
PROVIDERS: Nurse Practitioner Family; Admitting Provider Internal Medicine; Emergency Provider Emergency Medicine; Family Provider Family Medicine; PCP Family Medicine; Referring Provider Internal Medicine
DX: R47.1 Dysarthria and anarthria (principal); R53.1 Weakness; R47.01 Aphasia; I34.0 Nonrheumatic mitral (valve) insufficiency; D50.9 Iron deficiency anemia, unspecified; I13.0 Hypertensive heart and chronic kidney disease with heart failure and stage 1 through stage 4 chronic kidney disease, or unspecified chronic kidney disease; I50.32 Chronic diastolic (congestive) heart failure; N18.3 Chronic kidney disease, stage 3 (moderate); Z79.82 Long term (current) use of aspirin; Z79.899 Other long term (current) drug therapy; J45.909 Unspecified asthma, uncomplicated; I25.10 Atherosclerotic heart disease of native coronary artery without angina pectoris; E78.00 Pure hypercholesterolemia, unspecified; Z95.5 Presence of coronary angioplasty implant and graft; G62.9 Polyneuropathy, unspecified; E78.5 Hyperlipidemia, unspecified; K58.9 Irritable bowel syndrome, unspecified; E03.9 Hypothyroidism, unspecified; Z86.718 Personal history of other venous thrombosis and embolism; M06.9 Rheumatoid arthritis, unspecified; M51.06 Intervertebral disc disorders with myelopathy, lumbar region; M51.16 Intervertebral disc disorders with radiculopathy, lumbar region; M48.061 Spinal stenosis, lumbar region without neurogenic claudication; M21.372 Foot drop, left foot
CPT/HCPCS: 36415; 36592; 70450; 70544; 70547; 70551; 71045; 80048; 80061; 80307; 81001; 82962; 83036; 84439; 84443; 84481; 84484; 85025; 92523; 93005; 96360; 97162; 97166; 99218; 99285; J7030; A4216; G0378

== ENCOUNTER 2019-05-30 18:34 | Emergency (ER) | payer MEDICARE, OTHER, SELFPAY ==
[2019-04-11 20:51] VITALS: BMI 23.6
[2019-05-30 18:35] VITALS: BP 125/57; PULSE 96; RESP 18; TEMP 36.2; O2SAT 100; BMI 24.5
--- NOTE | 2019-05-30 19:55 | ED.DCSUM_ITS ---
- ER Visit Summary Date of Service: 05/30/19 Chief Complaint: Fecal impaction History of Present Illness: The patient is a 69 F who presents with a fecal impaction. Symptoms have been going on for days. She has rectal discomfort consistent with need to have a bowel movement. She has been unable to have a bowel movement. She is taking her prescribed medications, but is not having any relief. No other pains or systemic symptoms. She has a history of this. Physical Examination: Afebrile and vitals unremarkable. Abdomen soft. Rectal exam was chaperoned by ADAM Fink. Mild amount of red blood with copious hard stool consistent with an impaction. She is nontender. Test Results: None performed Emergency Department Course and Treatment: Digital disimpaction performed by me. Nursing performed a subsequent soapsuds enema. The patient was able to pass some additional stool. She will continue her prescribed medications. Increase fiber and fluids. Follow-up with primary care. Return for any complications. Treatment Plan: As above Disposition: Discharge Impression: 1. Fecal impaction This note was generated with [employer] dictation software. It may contain incorrect words, spelling, and punctuation that were not noted in review of the chart prior to signing ED Disposition - Plan for ED Patient: Referrals: Rigoberto Maher MD [Primary Care Provider] -
--- NOTE | 2019-05-30 19:57 | ED.DEP ---
ED Disposition - Plan for ED Patient: Instructions: FECAL IMPACTION, Treated Referrals: Rigoberto Maher MD [Primary Care Provider] -
[2019-05-30 20:02] VITALS: BP 141/50; PULSE 65; RESP 18; O2SAT 100
== END 2019-05-30 20:02 | disposition home or self-care (01) ==
LOC: ED 19:21
PROVIDERS: Emergency Provider Emergency Medicine; Family Provider Family Medicine; PCP Family Medicine
DX: K56.41 Fecal impaction (principal); I25.10 Atherosclerotic heart disease of native coronary artery without angina pectoris; I11.0 Hypertensive heart disease with heart failure; I50.9 Heart failure, unspecified; J45.909 Unspecified asthma, uncomplicated; I73.9 Peripheral vascular disease, unspecified; Z87.891 Personal history of nicotine dependence
CPT/HCPCS: 99284

== ENCOUNTER → 2020-01-24 | Outpatient (CLI) | payer MEDICARE, OTHER, SELFPAY ==
--- NOTE | 2020-01-24 08:34 | AAVD_ITS ---
Reason For Study: Aortoilliac occlusive disease Aorta Measurements Aorta Doppler Measurements Proximal aorta measures1.26 x 1.26cm. in cross- Peak systolic flow velocities within the proximal sectional axis. aorta measure 76.9 cm/sec. Proximal aorta measures1.28cm. in longitudinal Peak systolic flow velocities within the mid aorta axis. measure 94.2 cm/sec. Mid aorta measures1.16 x 1.15cm. in cross- Peak systolic flow velocities within the distal sectional axis. aorta measure 79.6 cm/sec. Mid aorta measures1.13cm. in longitudinal axis. Distal aorta measures1.31 x 1.34cm. in cross- sectional axis. Distal aorta measures1.30cm. in longitudinal axis. Left Iliac Artery Left iliac artery measures 0.57 x 0.53 cm. in the cross-sectional axis. Left iliac artery measures 0.51 cm. in the longitudinal axis. Peak systolic velocity in the left iliac artery measures 192.3 cm/sec. Right Iliac Artery Right iliac artery measures 0.66 x 0.63 cm. in the cross-sectional axis. Right iliac artery measures 0.66 cm. in the longitudinal axis. Peak systolic velocity in the right iliac artery measures 103.4 cm/sec. Procedure Aorta IVC Iliac vasculature or bypass grafts 12295. Exam performed in department. Interpretation Summary no aortoiliac stenosis seen. Ordering Physician: Alden Hernández Referring Physician: Rigoberto Maher Performed By: Maddy Shipman RVT
--- NOTE | 2020-01-24 08:35 | ART_ITS ---
Reason For Study: Atherosclerosis Procedure A bilateral lower extremity continuous wave Doppler with analog waveform analysis and ankle brachial indexes. Left Segmental Pressures Left brachial= 129mmHg. Left posterior tibial artery = >254mmHg. Left dorsalis pedis artery = 185mmHg. Left digit = 72 mmHg. The left dorsalis pedis waveforms are biphasic. The left posterior tibial artery waveforms are triphasic. Right Segmental Pressures Right brachial= 136mmHg. Right posterior tibial artery = 216mmHg. Right dorsalis pedis artery = 185mmHg. Right digit = 74 mmHg. The right dorsalis pedis waveforms are biphasic. The right posterior tibial artery waveforms are triphasic. Indices The right ankle brachial index by the dorsalis pedis is 1.36. The right ankle brachial index by the posterior tibial artery is 1.59. The right digital-brachial index is 0.54. The left ankle brachial index by the dorsalis pedis is 1.36. The left ankle brachial index by the posterior tibial artery is NC. The left digital-brachial index is 0.53. Interpretation Summary bilateral triphasic flow and may have falsely elevated BRANDO but at 1.59 and 1.36. DBI 0.54 and 0.53. Ordering Physician: Alden Hernández Referring Physician: Rigoberto Maher Performed By: Maddy Shipman RVT
[2020-01-24] MEDS: Acetaminophen 325 MG Tablet 650 MG PO (12:17)
[2020-01-24 12:37] VITALS: BP 115/50; PULSE 115; RESP 16; TEMP 36.1; O2SAT 100; BMI 25.0
[2020-01-24 13:05] VITALS: BP 116/52; PULSE 53; RESP 16; TEMP 35.7; O2SAT 100
[2020-01-24 14:05] VITALS: BP 122/32; PULSE 58; RESP 18; TEMP 35.9; O2SAT 99
== END | disposition home or self-care (01) ==
LOC: CVS 08:13 → MEDOUTP 11:39
PROVIDERS: PCP Family Medicine; Referring Provider Surgery Vascular Surgery; Visit Provider Surgery Vascular Surgery
DX: I74.09 Other arterial embolism and thrombosis of abdominal aorta (principal); I70.213 Atherosclerosis of native arteries of extremities with intermittent claudication, bilateral legs; D64.81 Anemia due to antineoplastic chemotherapy; N18.3 Chronic kidney disease, stage 3 (moderate)
CPT/HCPCS: 36430; 86850; 86900; 86901; 86920; 86922; 93922; 93978; P9016; A4216

== ENCOUNTER → 2020-05-31 | Outpatient (CLI) | payer MEDICARE, OTHER, SELFPAY ==
[2020-05-30 14:11] VITALS: BMI 27.1
--- NOTE | 2020-05-31 13:50 | RAD_ITS ---
STUDY: X-RAY - SACRUM/COCCYX REASON FOR EXAM: Female, 70 years old. patient has non-healing ulcer on her back, right above buttocks in the middle. lumbar pain, Hx lumbar fusion, most recent surgery in 2018 TECHNIQUE: 3 view(s) of the sacrum and coccyx were obtained. COMPARISON: May 01 2016 FINDINGS: Examination is technically limited. Sacrum is suboptimally visualized due to obscuration by bowel shadow, and superimposed hardware. Some diagnostic information is available. There are no grossly destructive or blastic lesions. Mineralization is diffusely decreased. There are L2-S1 pedicular screw fusions. Bilateral S1 screws have there is lucency, worse on the left at 2 mm, 1 mm on the right. SI joints are intact and unfused. Right hip has been fixation, left hip is normal. RAD/Sacrum-Coccyx min 2 Views IMPRESSION: Lumbosacral pedicular screw fusion with otherwise unremarkable sacrum. Osteoporosis. Electronically Signed: Yoni Wright, at 14:25 EDT Tel , Service support ,
--- NOTE | 2020-05-31 13:50 | RAD_ITS ---
STUDY: X-RAY - LUMBAR SPINE REASON FOR EXAM: Female, 70 years old. patient has non-healing ulcer on her back, right above buttocks in the middle. lumbar pain, Hx lumbar fusion, most recent surgery in 2018 TECHNIQUE: 5 view(s) of the lumbar spine were obtained. COMPARISON: May 01 2016 FINDINGS: Since 2016 hardware has been revised with upward extension. There is now pedicular screw fusion with vertical interconnecting rods from L2-S1. Hardware is intact and in the expected position. There is 1 mm lucency surrounding bilateral S1 screws. Remainder of the bone hardware interface is normal. There are disc spacers at L2-L3 and L3-L4. There is stable grade 1 anterolisthesis of L4 on L5, less than 5 mm and retrolisthesis of L2 on L3, less than 3 mm. The rest of the spine is aligned. There are no destructive blastic lesions. Mineralization is diffusely decreased. There is moderately advanced aortic atherosclerosis with bilateral common iliac stents. There is likely multilevel laminectomy decompression, difficult to visualize. There is prior right hip compression pin fixation. RAD/L/S Spine Min 4 Views IMPRESSION: 1. L2-S1 pedicular screw fusion. 2. Periscrew lucency bilaterally at S1. Electronically Signed: Yoni Wright, at 14:25 EDT Tel , Service support ,
[2020-05-31 14:19] LABS: Erythrocyte Sedimentation Rate 76 mm/hr (0-30)
[2020-05-31 14:20] LABS: Absolute Lymphocyte Count 1.85 X10^3/uL (0.83-4.51); Absolute Neutrophil Count 5.4 X10^3/uL (2.0-7.7); Basophil# 0.07 X10^3/uL; Basophil% 0.9 % (0-1); Eosinophil# 0.24 X10^3/uL; Eosinophils% 2.9 % (0-5); Hematocrit 33.5 % (37-47); Hemoglobin 11.2 g/dL (12.0-15.0); Lymphocyte # 1.85 X10^3/ul (4.0); Lymphocyte % 22.5 % (19-41); Mean Corp Hgb Conc 33.4 g/dL (32-36); Mean Corpuscular Hgb 30.4 pg (27.0-32.0); Mean Platelet Vol. 8.8 fl (6.2-12.0); Monocyte# 0.67 X10^3/uL; Monocyte% 8.1 % (0-10); NRBC Flagged by Analyzer 0 % (0-5); Neutrophil # 5.35 X10^3/uL (2.7-7.7); Platelet Count 250 K/mm3 (150-450); RBC Distribution Width CV 12.8 % (11.6-14.6); RBC Distribution Width SD 42.7 fl (35.1-43.9); Red Blood Count 3.68 M/mm3 (4.2-5.4); White Blood Count 8.2 K/mm3 (4.4-11.0)
[2020-05-31 14:39] LABS: ALB/GLOB Ratio 0.7 RATIO (0.9-2.4); AST(SGOT) 21 U/L (15-37); Alanine Aminotransfer ALT/SGPT 26 U/L (13-56); Albumin, Serum 3.2 g/dL (3.2-5.0); Alkaline Phosphatase 132 U/L (45-117); Anion Gap 7 (5-15); BUN 20 mg/dL (7-18); BUN/Creat Ratio 14.4 RATIO (10-20); Chloride 93 mmol/L (98-107); Creatinine, Serum 1.39 mg/dL (0.55-1.02); EST Glomerular Filtration Rate 40 mL/min (>60); Est Glom Filt Rate - Afr Amer 49 mL/min (>60); Globulin 4.5 g/dL (2.2-4.2); Glucose 86 mg/dL (74-106); Potassium 3.8 mmol/L (3.5-5.1); Prealbumin 18.4 mg/dL (20.0-40.0); Protein, Total 7.7 g/dL (6.4-8.2); Sodium Level 128 mmol/L (136-145)
== END | disposition home or self-care (01) ==
PROVIDERS: PCP Family Medicine; Referring Provider Nurse Practitioner Family; Visit Provider Nurse Practitioner Family
DX: L98.429 Non-pressure chronic ulcer of back with unspecified severity (principal); I10 Essential (primary) hypertension
CPT/HCPCS: 36415; 72110; 72220; 80053; 84134; 85025; 85652; 86140

== ENCOUNTER → 2020-06-05 | Outpatient (CLI) | payer MEDICARE, OTHER, SELFPAY ==
[2020-05-30 14:11] VITALS: BMI 27.1
--- NOTE | 2020-06-05 12:47 | CT_ITS ---
STUDY: CT LUMBAR SPINE WITH AND WITHOUT CONTRAST REASON FOR EXAM: Female, 70 years old. Lower back pain x months, prior lumbar fusion L3-5 with hardware, hypertension, seizures, diabetes. RADIATION DOSAGE (If Supplied By Facility): CTDIvol = ( 21.69 ) mGy, DLP = ( 1299.23 ) mGycm TECHNIQUE: The patient was scanned in a multi detector CT scanner. High resolution transaxial imaging was performed following the intravenous administration of 100mL Isovue 300. Images were obtained from L1 to S1 vertebral level. Sagittal and coronal images were reconstructed. Individualized dose optimization techniques were used for this CT. COMPARISON: Comparison is made with prior radiograph dated 05/31/2020. FINDINGS: Normal lumbar lordosis. There is no substantial scoliosis. Minimal retrolisthesis of L1 on L2. The patient is status post laminectomy and interpedicular screw and malou fixation at the L2-L3, L3-L4 L4-L5 and L5-S1 levels. L1-2: Grade 1 retrolisthesis of L1 on L2. Spondylosis. L2-3: Laminectomy and interpedicular screw fixation with prosthetic disc. There is evidence of a bone graft involving the lateral masses. There is no evidence of spinal stenosis. L3-4: Status post laminectomy and interpedicular screw fixation. Moderate degree of disc space narrowing. No evidence of spinal stenosis. L4-5: Minimal anterior listhesis of L4 on L5. Prior laminectomy with interpedicular screw fixation. No significant stenosis is seen. L5-S1: Prior laminectomy and interpedicular screw fixation. No evidence of spinal stenosis. Atherosclerotic calcification of the abdominal aorta. Postoperative scarring is seen in the overlying subcutaneous fat at the surgical sites. CT/Spine Lumbar W/WO Contrast IMPRESSION: Status post multilevel laminectomy and interpedicular screw fixation with no evidence of spinal stenosis at this time. Electronically Signed: Abel Eason, at 10:21 EDT , Service support ,
== END | disposition home or self-care (01) ==
LOC: MRI 12:47
PROVIDERS: PCP Family Medicine; Referring Provider Nurse Practitioner Family; Visit Provider Nurse Practitioner Family
DX: L98.429 Non-pressure chronic ulcer of back with unspecified severity (principal); M51.36 Other intervertebral disc degeneration, lumbar region; M54.5 Low back pain; R93.7 Abnormal findings on diagnostic imaging of other parts of musculoskeletal system; Z98.1 Arthrodesis status
CPT/HCPCS: 72133; Q9967; A4216

== ENCOUNTER 2020-06-13 14:15 | Outpatient (RCR) | payer MEDICARE, OTHER, SELFPAY ==
[2020-01-24 12:37] VITALS: BMI 25.0
[2020-05-30 14:11] VITALS: BP 151/70; PULSE 64; RESP 16; TEMP 35.8; BMI 27.1
--- NOTE | 2020-05-30 16:29 | PCM.WC.HP ---
(1) Chronic ulcer of back Status: Chronic Current Visit: Yes Code(s): L98.429 - Non-pressure chronic ulcer of back with unspecified severity (2) History of lumbar spinal fusion Status: Acute Current Visit: Yes Code(s): Z98.1 - Arthrodesis status (3) Atherosclerotic heart disease of [place] coronary artery without angina pectoris Status: Chronic Current Visit: No Code(s): I25.10 - Atherosclerotic heart disease of [place] coronary artery without angina pectoris Comment: PCI/stent of the distal CX; PCI/ALEXANDRO to prox RCA 08/19/06 (4) Congestive heart failure (CHF) Status: Chronic Current Visit: No Code(s): I50.9 - Heart failure, unspecified (5) Hyperlipidemia Status: Chronic Current Visit: No Code(s): E78.5 - Hyperlipidemia, unspecified (6) Hypertension Status: Chronic Current Visit: No Code(s): I10 - Essential (primary) hypertension (7) Nonrheumatic mitral valve regurgitation Status: Chronic Current Visit: No Code(s): I34.0 - Nonrheumatic mitral (valve) insufficiency (8) PAD (peripheral artery disease) Status: Chronic Current Visit: No Code(s): I73.9 - Peripheral vascular disease, unspecified History of Present Illness Date of Service: 05/30/20 Chief Complaint: Nonhealing ulcer to lower back at the base of her prior incision of a spinal fusion in 2016 History of Wound: This is a 70-year-old white female who presents to the wound healing center today with a 3-month history of a open draining nonhealing ulcer to her lower back at the base of the scar where her prior lumbar fusion surgery took place. She states that it is been draining clear drainage over the past couple of months. She has been seen by her primary care who has placed her on multiple antibiotics. She has a past medical history significant for hypertension, CAD, hyperlipidemia, hypothyroidism, and chronic low back pain. 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 She has been utilizing Silvadene and covering with a bandage. She denies any headache nausea vomiting or localized or systemic signs of infection. She has not had any cultures done. All other systems reviewed and negative with exception of those listed above. Past Medical History Past Medical History: Chronic Problems (Last Reviewed 03/09/19 @ 01:[address] Yasmani Teixeira MD) Chronic ulcer of back (Chronic) Nonrheumatic mitral valve regurgitation (Chronic) Presence of stent in coronary artery (Chronic) PCI/stent of the distal CX; PCI/ALEXANDRO to prox RCA 08/19/06 Renal insufficiency (Chronic) Congestive heart failure (CHF) (Chronic) Atherosclerotic heart disease of [place] coronary artery without angina pectoris (Chronic) PCI/stent of the distal CX; PCI/ALEXANDRO to prox RCA 08/19/06 Peripheral neuropathy (Chronic) Hyperlipidemia (Chronic) Asthma (Chronic) Hypertension (Chronic) PAD (peripheral artery disease) (Chronic) Surgical History: - - coronary stents, femoral stents bilateral lower extremities, lumbar fusion L5, carpal tunnel surgery, appendectomy, right hip replacement. Allergies/Adverse Reactions: Allergies colesevelam HCl [From WelChol] Allergy (Verified 05/30/20 14:20) Unknown metolazone [From Zaroxolyn] Allergy (Verified 05/30/20 14:20) Unknown nitrofurantoin macrocrystalline [From Macrodantin] Allergy (Verified 05/30/20 14:20) Unknown Penicillins Allergy (Verified 05/30/20 14:20) Unknown PASSED OUT pravastatin sodium [From Pravachol] Allergy (Verified 05/30/20 14:20) Unknown tramadol Adverse Reaction (Verified 05/30/20 14:20) Nausea Home Medications: Ambulatory Orders Medication Instructions Recorded Montelukast [Singulair] 10 mg PO DAILY 06/19/15 Nitroglycerin (INPATIENT USE) 0.4 mg SUBLINGUAL Q5M PRN 06/19/15 [Nitrostat] Ranolazine [Ranexa] 1,000 mg PO BID 06/19/15 Aspirin E.C. [Ecotrin] 81 mg PO DAILYCM tablet 11/05/17 Hydroxyzine HCl 25 mg PO Q6H PRN PRN 02/10/19 Rosuvastatin Calcium 20 mg PO DAILY 02/10/19 Metoprolol Tartrate [Lopressor 25 mg PO DAILY 02/24/19 (beta marvin)] Levothyroxine Sodium [Synthroid] 88 mcg PO DAILY 04/11/19 Linacolotide [Linzess] 145 mcg PO DAILY 04/11/19 Omeprazole 40 mg PO DAILY 04/11/19 Spironolactone [Aldactone] 25 mg PO DAILY 04/11/19 - Family History Maternal Family History: Family History (Last Reviewed 03/09/19 @ 01:[address] Yasmani Teixeira MD) Father Heart disease Mother Myocardial infarction, Onset Age: 50 CAD (coronary artery disease) Brother Diabetes - - The patient's mother in her 60s from lung cancer. Paternal Family History: Family History (Last Reviewed 03/09/19 @ 01:[address] Yasmani Teixeira MD) Father Heart disease Mother Myocardial infarction, Onset Age: 50 CAD (coronary artery disease) Brother Diabetes - - The patient's father at age of 82 of congestive heart failure. Smoking Status: Former smoker Review of Systems Constitutional: Denies: Chills, Fever, Weight Change Eyes: Denies: Pain, Vision Change HEENT: Denies: Difficulty Hearing, Difficulty Swallowing, Sinus Congestion Cardiovascular: Denies: Chest Pain, Palpitations Respiratory: Denies: Cough, Shortness of Breath Gastrointestinal: Denies: Diarrhea, Nausea, Vomiting Genitourinary: Denies: Dysuria, Hematuria Skin: Reports: Wounds - See HPI Endocrine: Denies: Heat/ Cold Intolerance, Polydipsia, Polyuria Hematologic/ Lymphatic: Denies: Easy Bruising, Easy Bleeding - Physical Exam Vital Signs Temp Pulse Resp BP 96.4 F L 64 16 151/70 H 05/30/20 14:11 05/30/20 14:11 05/30/20 14:11 05/30/20 14:11 General: Alert, Oriented x3, Cooperative, No apparent distress HEENT: Atraumatic Oral: Moist Mucosa Lungs: Clear to auscultation, Normal air movement Cardiovascular: Regular rate, Regular Rhythm, Normal S1, Normal S2 Abdomen: Soft, Non Tender Extremities: No clubbing, No cyanosis, No edema Skin: Ulcer/ Wound - See nursing documentation, hyper granular tissue present, clear drainage noted, no signs of infection at this time. Wound Measurements and Assessment WC - Nurse 1 - General Ulcer Measurement Start: 05/30/20 14:06 Freq: Status: Active Protocol: Activity Type Activity Date Activity User E-Sign Co-Sign Detail Recorded Client Recorded Date Recorded By Document 05/30/20 14:11 [facility] [id number] 05/30/20 14:18 [facility] 05/30/20 14:11 Wound Center Nurse 1 [Ulcer Assessment] #11- LUMBAR -Combined with other wound No -Current Size (cm) - Length 1 -Current Size (cm) - Width 0.7 -Current Size (cm) - Depth 0.1 -Total Square Cm 0.7 -Date of Last Picture (Recall this 05/30/20 field) -Photo Taken Yes -Epithelialization None Present -Tunneling No -Undermining/Tunneling No -Circular Undermining No -Exudate Amt Medium -Exudate Type Serosanguineous -Wound Margin Distinct, Outline Attached -Granulation Amt Large (67-100%) -Granulation Quality Hyper- granulation,Red -Slough/Fibrin Yes -Necrosis Amt Small (1-33%) -Necrotic Tissue Type Adherent Slough -Texture (Barbara-wound Skin Appearance) Assessed, Excoriation, Scarring,Rash -Moisture (Barbara-wound Skin Appearance Assessed ) -Color (Barbara-wound Skin Appearance) Assessed, Erythema -Temperature (Barbara-wound Skin No Abnormality Appearance) (Pt Warm) -Tenderness on Palpation (Barbara-wound No Skin Appearance) -Ulcer Cleansing Rinsed/ Irrigated with Saline -Foul Odor after Cleansing No -Anesthetic Used 5% Lidocaine Gel WC - Nurse 2 - General Ulcer CM Notes Start: 05/30/20 14:06 Freq: Status: Active Protocol: Activity Type Activity Date Activity User E-Sign Co-Sign Detail Recorded Client Recorded Date Recorded By Document 05/30/20 14:28 MW [id number] 05/30/20 14:40 MW 05/30/20 14:28 Wound Center Nurse 2 [Procedure/Treatment] -Time 14:38 -Correct Patient Yes -Correct Side, Site, Position Yes -Correct Procedure Yes -Procedure Performed Yes -Type of Procedure Debridement -Clinical Debridement Subcutaneous -Tissue Removed Subcutaneous -Post Debridement (cm) - Length 0.5 -Post Debridement (cm) - Width 0.5 -Post Debridement (cm) - Depth 1.2 -Total Square (Post) (cm) 0.25 -Area of Debridement (cm) - Length 0.5 -Area of Debridement (cm) - Width 0.5 -Total Square (Area) (cm) 0.25 -Tunneling No -Undermining/Tunneling No -Circular Undermining Yes -Wound/Ulcer Outcome Not Healed -Ulcer Cleansing Rinsed/ Irrigated with Saline -Foul Odor after Cleansing No -Bioengineered Tissue No -Bleeding Controlled with Pressure -Offloading No -Debridement - Subq, 1st 20sq cm Yes [See Physician Procedure note for Specifics] Pain Scale: 0-10 Numeric [Pain] -Is Patient Pain Free? Yes - Nurse 3 - General Ulcer D/C NN Start: 05/30/20 14:06 Freq: Status: Active Protocol: Activity Type Activity Date Activity User E-Sign Co-Sign Detail Recorded Client Recorded Date Recorded By Document 05/30/20 14:47 [facility] [id number] 05/30/20 14:48 [facility] 05/30/20 14:47 Wound Care Nurse 3 [Wound Dressing] #11- LUMBAR -Ulcer Cleansing Rinsed/ Irrigated with Saline -Foul Odor after Cleansing No -Primary Dressing Applied Silvercel -Primary Dressing Covered/Secured Secured with with Tape,Other -Other Covering ABD -Silvercel 1 [Post Procedure Tolerated] -Treatment Response Procedure Tolerated Well Vital Signs [Comments] -Comment PT REFUSED. IN HURRY TO GET GRANDKIDS OFF THE BUS Pain Scale: 0-10 Numeric [Pain] -Is Patient Pain Free? Yes - Visit Discharge [Visit Discharge Information] -Discharge Condition Stable -Ambulatory Status Ambulatory, Walker -Transportation Private Auto -Accompanied by Neurological: Neuro grossly intact Psych/Mental Status: Normal Affect, Appropriate, Alert and oriented to time, place, person, mood and affect Debridement Note Post-Debridement Measurements/Treatment - Nurse 2 - General Ulcer CM Notes Start: 05/30/20 14:06 Freq: Status: Active Protocol: Activity Type Activity Date Activity User E-Sign Co-Sign Detail Recorded Client Recorded Date Recorded By Document 05/30/20 14:28 [id number] 05/30/20 14:40 MW 05/30/20 14:28 Wound Center Nurse 2 #11- LUMBAR -Time 14:38 -Correct Patient Yes -Correct Side, Site, Position Yes -Correct Procedure Yes -Procedure Performed Yes -Type of Procedure Debridement -Clinical Debridement Subcutaneous -Tissue Removed Subcutaneous -Post Debridement (cm) - Length 0.5 -Post Debridement (cm) - Width 0.5 -Post Debridement (cm) - Depth 1.2 -Total Square (Post) (cm) 0.25 -Area of Debridement (cm) - Length 0.5 -Area of Debridement (cm) - Width 0.5 -Total Square (Area) (cm) 0.25 -Tunneling No -Undermining/Tunneling No -Circular Undermining Yes -Wound/Ulcer Outcome Not Healed -Ulcer Cleansing Rinsed/ Irrigated with Saline -Foul Odor after Cleansing No -Bioengineered Tissue No -Bleeding Controlled with Pressure -Offloading No -Debridement - Subq, 1st 20sq cm Yes Pain Scale: 0-10 Numeric Is Patient Pain Free? Yes WC - Nurse 3 - General Ulcer D/C NN Start: 05/30/20 14:06 Freq: Status: Active Protocol: Activity Type Activity Date Activity User E-Sign Co-Sign Detail Recorded Client Recorded Date Recorded By Document 05/30/20 14:47 [facility] [id number] 05/30/20 14:48 [facility] 05/30/20 14:47 Wound Care Nurse 3 #11- LUMBAR -Ulcer Cleansing Rinsed/ Irrigated with Saline -Foul Odor after Cleansing No -Primary Dressing Applied Silvercel -Primary Dressing Covered/Secured with Secured with Tape,Other -Other Covering ABD -Silvercel 1 Treatment Response Procedure Tolerated Well Vital Signs Comment PT REFUSED. IN HURRY TO GET GRANDKIDS OFF THE BUS Pain Scale: 0-10 Numeric Is Patient Pain Free? Yes WC - Visit Discharge Discharge Condition Stable Ambulatory Status Ambulatory, Walker Transportation Private Auto Accompanied by Wound debrided: Lumbar ulcer Type of Debridement: Excisional debridement Anesthesia Used: 5% Lidocaine Gel Depth: Down to and including healthy tissue, in the subcutaneous layer Percentage of wound debrided: 100 Instrument Used: 3mm curette Tissue Removed: Hyper granular tissue, slough and devitalized tissue Severity: Fat Layer Exposed Amount of bleeding with debridement: Mild Bleeding Controlled with: Pressure Patient tolerated procedure well Assessment/Plan Active Problems (Last Reviewed 03/09/19 @ 01:[address] Yasmani Teixeira MD) Chronic ulcer of back (Chronic) History of lumbar spinal fusion (Acute) Assessment: See above diagnoses Plan: The patient was seen and examined at the wound center today and was updated on the plan of care. A subcutaneous debridement was performed today. The patient tolerated the procedure well. The patients wound care will consist of: Application of silvercell moistened change daily and cover with gauze. Wound cultures were collected. Baseline bloodwork ordered. Lumbar x-ray ordered given the location of the wound being at the base of her surgical incisional scar. Patient educated on the importance of diet on wound healing and instructed to increase protein and vitamin C intake. Patient verbalized understanding. Patient will follow up at wound healing center in one week or sooner if needed. This note was generated with [employer] dictation software. It may contain incorrect words, spelling, and punctuation that were not noted in checking the note before signing. Office Visits / Consults: [id number] OV L4 Est [id number]: [id number] Rosenda subq tissue 20 sq cm/<
[2020-06-13 14:31] VITALS: BP 138/79; PULSE 99; RESP 18; TEMP 36.1; BMI 27.1
[2020-06-13 15:38] VITALS: BP 140/80
--- NOTE | 2020-06-13 15:57 | PCM.WC.HP ---
(1) History of lumbar spinal fusion Status: Chronic Code(s): Z98.1 - Arthrodesis status (2) Chronic ulcer of back Status: Chronic Code(s): L98.429 - Non-pressure chronic ulcer of back with unspecified severity (3) Stroke-like symptoms Status: Chronic Code(s): R29.90 - Unspecified symptoms and signs involving the nervous system (4) Asthma Status: Chronic Qualifiers: Code(s): J45.909 - Unspecified asthma, uncomplicated (5) Atherosclerotic heart disease of [place] coronary artery without angina pectoris Status: Chronic Code(s): I25.10 - Atherosclerotic heart disease of [place] coronary artery without angina pectoris Comment: PCI/stent of the distal CX; PCI/ALEXANDRO to prox RCA 08/19/06 (6) Congestive heart failure (CHF) Status: Chronic Code(s): I50.9 - Heart failure, unspecified (7) Hyperlipidemia Status: Chronic Code(s): E78.5 - Hyperlipidemia, unspecified (8) Hypertension Status: Chronic Code(s): I10 - Essential (primary) hypertension (9) Nonrheumatic mitral valve regurgitation Status: Chronic Code(s): I34.0 - Nonrheumatic mitral (valve) insufficiency (10) PAD (peripheral artery disease) Status: Chronic Code(s): I73.9 - Peripheral vascular disease, unspecified (11) Peripheral neuropathy Status: Chronic Qualifiers: Code(s): G62.9 - Polyneuropathy, unspecified (12) Presence of stent in coronary artery Status: Chronic Code(s): Z95.5 - Presence of coronary angioplasty implant and graft Comment: PCI/stent of the distal CX; PCI/ALEXANDRO to prox RCA 08/19/06 (13) Renal insufficiency Status: Chronic Code(s): N28.9 - Disorder of kidney and ureter, unspecified History of Present Illness Date of Service: 06/13/20 Chief Complaint: Nonhealing ulcer to lower back at the base of her prior incision of a spinal fusion in 2016 History of Wound: This is a 70-year-old white female who presents to the wound healing center today with a 3-month history of a open draining nonhealing ulcer to her lower back at the base of the scar where her prior lumbar fusion surgery took place. She states that it is been draining clear drainage over the past couple of months. She has been seen by her primary care who has placed her on multiple antibiotics. She has a past medical history significant for hypertension, CAD, hyperlipidemia, hypothyroidism, and chronic low back pain. 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 She has been utilizing Silvadene and covering with a bandage. She denies any headache nausea vomiting or localized or systemic signs of infection. She has not had any cultures done. All other systems reviewed and negative with exception of those listed above. Past Medical History Past Medical History: Chronic Problems (Last Reviewed 03/09/19 @ 01:[address] Yasmani Teixeira MD) Chronic ulcer of back (Chronic) History of lumbar spinal fusion (Chronic) Stroke-like symptoms (Chronic) Nonrheumatic mitral valve regurgitation (Chronic) Presence of stent in coronary artery (Chronic) PCI/stent of the distal CX; PCI/ALEXANDRO to prox RCA 08/19/06 Renal insufficiency (Chronic) Congestive heart failure (CHF) (Chronic) Atherosclerotic heart disease of [place] coronary artery without angina pectoris (Chronic) PCI/stent of the distal CX; PCI/ALEXANDRO to prox RCA 08/19/06 Peripheral neuropathy (Chronic) Hyperlipidemia (Chronic) Asthma (Chronic) Hypertension (Chronic) PAD (peripheral artery disease) (Chronic) Surgical History: - - coronary stents, femoral stents bilateral lower extremities, lumbar fusion L5, carpal tunnel surgery, appendectomy, right hip replacement. Allergies/Adverse Reactions: Allergies colesevelam HCl [From WelChol] Allergy (Verified 05/30/20 14:20) Unknown metolazone [From Zaroxolyn] Allergy (Verified 05/30/20 14:20) Unknown nitrofurantoin macrocrystalline [From Macrodantin] Allergy (Verified 05/30/20 14:20) Unknown Penicillins Allergy (Verified 05/30/20 14:20) Unknown PASSED OUT pravastatin sodium [From Pravachol] Allergy (Verified 05/30/20 14:20) Unknown tramadol Adverse Reaction (Verified 05/30/20 14:20) Nausea Home Medications: Ambulatory Orders Medication Instructions Recorded Montelukast [Singulair] 10 mg PO DAILY 06/19/15 Nitroglycerin (INPATIENT USE) 0.4 mg SUBLINGUAL Q5M PRN 06/19/15 [Nitrostat] Ranolazine [Ranexa] 1,000 mg PO BID 06/19/15 Aspirin E.C. [Ecotrin] 81 mg PO DAILYCM tablet 11/05/17 Hydroxyzine HCl 25 mg PO Q6H PRN PRN 02/10/19 Rosuvastatin Calcium 20 mg PO DAILY 02/10/19 Metoprolol Tartrate [Lopressor 25 mg PO DAILY 02/24/19 (beta marvin)] Levothyroxine Sodium [Synthroid] 88 mcg PO DAILY 04/11/19 Linacolotide [Linzess] 145 mcg PO DAILY 04/11/19 Omeprazole 40 mg PO DAILY 04/11/19 Spironolactone [Aldactone] 25 mg PO DAILY 04/11/19 - Family History Maternal Family History: Family History (Last Reviewed 03/09/19 @ 01:[address] Yasmani Teixeira MD) Father Heart disease Mother Myocardial infarction, Onset Age: 50 CAD (coronary artery disease) Brother Diabetes - - The patient's mother in her 60s from lung cancer. Paternal Family History: Family History (Last Reviewed 03/09/19 @ 01:[address] Yasmani Teixeira MD) Father Heart disease Mother Myocardial infarction, Onset Age: 50 CAD (coronary artery disease) Brother Diabetes - - The patient's father at age of 82 of congestive heart failure. Smoking Status: Former smoker Review of Systems Constitutional: Denies: Chills, Fever, Weight Change Eyes: Denies: Pain, Vision Change HEENT: Denies: Difficulty Hearing, Difficulty Swallowing, Sinus Congestion Cardiovascular: Denies: Chest Pain, Palpitations Respiratory: Denies: Cough, Shortness of Breath Gastrointestinal: Denies: Diarrhea, Nausea, Vomiting Genitourinary: Denies: Dysuria, Hematuria Endocrine: Denies: Heat/ Cold Intolerance, Polydipsia, Polyuria Hematologic/ Lymphatic: Denies: Easy Bruising, Easy Bleeding - Physical Exam Vital Signs Temp Pulse Resp BP 97 F L 99 18 140/80 H 06/13/20 14:31 06/13/20 14:31 06/13/20 14:31 06/13/20 15:38 General: Alert, Oriented x3, Cooperative, No apparent distress, Well developed, Well nourished HEENT: Atraumatic, PERRLA, EOMI, Normocephalic Oral: Moist Mucosa Neck: No JVD Lungs: Normal air movement Abdomen: Non-Distended Extremities: No clubbing, No cyanosis, No edema Addt'l Wound Findings: A well-healed vertical incision is noted in the patient's low back, the site of 4 prior lumbar back surgeries. At the very inferior pole of the vertical incision is an open sinus tract. The external opening is quite small in size, only several millimeters in diameter. The opening was gently probed using a small diameter metal probe, and found to extend superiorly at least 5 cm. A small amount of serous drainage was noted, but no obvious or overt evidence of purulent drainage. Skin: No rashes Wound Measurements and Assessment WC - Nurse 1 - General Ulcer Measurement Start: 05/30/20 14:06 Freq: Status: Active Protocol: Activity Type Activity Date Activity User E-Sign Co-Sign Detail Recorded Client Recorded Date Recorded By Document 06/13/20 14:31 RB [id number] 06/13/20 14:33 RB 06/13/20 14:31 Wound Center Nurse 1 [Ulcer Assessment] #11- LUMBAR -Combined with other wound No -Current Size (cm) - Length 0.3 -Current Size (cm) - Width 0.3 -Current Size (cm) - Depth 0.7 -Total Square Cm 0.09 -Tunneling No -Undermining/Tunneling No -Circular Undermining No -Exudate Amt Small -Exudate Type Serosanguineous -Wound Margin Flat & Intact -Granulation Amt Medium (34-66%) -Granulation Quality [place] -Slough/Fibrin Yes -Necrosis Amt Small (1-33%) -Necrotic Tissue Type Adherent Slough -Structure Exposed N/A -Texture (Barbara-wound Skin Appearance) Assessed -Moisture (Barbara-wound Skin Appearance Assessed ) -Color (Barbara-wound Skin Appearance) Assessed -Temperature (Barbara-wound Skin No Abnormality Appearance) (Pt Warm) -Tenderness on Palpation (Barbara-wound No Skin Appearance) -Ulcer Cleansing Wound Cleanser -Foul Odor after Cleansing No -Anesthetic Used 4% Lidocaine Solution WC - Nurse 3 - General Ulcer D/C NN Start: 05/30/20 14:06 Freq: Status: Active Protocol: Activity Type Activity Date Activity User E-Sign Co-Sign Detail Recorded Client Recorded Date Recorded By Document 06/13/20 15:38 RB [id number] 06/13/20 15:40 RB 06/13/20 15:38 Wound Care Nurse 3 [Wound Dressing] -Ulcer Cleansing Rinsed/ Irrigated with Saline -Primary Dressing Applied Silvercel -Primary Dressing Covered/Secured Dry Gauze, with Secured with Tape -Silvercel 1 Vital Signs [Blood Pressure] -Blood Pressure (90/60-120/80) 140/80 H -Blood Pressure Mean (mm Hg) 100 -Source Monitor -Position Semi-Fowlers -Blood Pressure Location Left Arm Pain Scale: 0-10 Numeric [Pain] -Is Patient Pain Free? Yes Teaching: Wound Center [Wound Center Education] (Items with an * have Printed Materials Available- Please identify what is given to patient under the Teaching materials given to patient and caregiver Section. Dressing Your Wound -Person Taught Patient -Teaching Method Discussion, Demonstration -Response to teaching Verbalize understanding WC - Visit Discharge [Visit Discharge Information] -Discharge Condition Stable -Ambulatory Status Ambulatory -Transportation Private Auto -Medication Reconcilliation completed No & provided to patient/care provider -Clinical Summary of Care Provided Yes Neurological: Cranial nerves II-XII grossly intact, Neuro grossly intact Psych/Mental Status: Normal Affect, Appropriate, Alert and oriented to time, place, person, mood and affect Debridement Note Post-Debridement Measurements/Treatment WC - Nurse 2 - General Ulcer CM Notes Start: 05/30/20 14:06 Freq: Status: Active Protocol: Activity Type Activity Date Activity User E-Sign Co-Sign Detail Recorded Client Recorded Date Recorded By Document 05/30/20 14:28 MW [id number] 05/30/20 14:40 MW 05/30/20 14:28 Wound Center Nurse 2 #11- LUMBAR -Time 14:38 -Correct Patient Yes -Correct Side, Site, Position Yes -Correct Procedure Yes -Procedure Performed Yes -Type of Procedure Debridement -Clinical Debridement Subcutaneous -Tissue Removed Subcutaneous -Post Debridement (cm) - Length 0.5 -Post Debridement (cm) - Width 0.5 -Post Debridement (cm) - Depth 1.2 -Total Square (Post) (cm) 0.25 -Area of Debridement (cm) - Length 0.5 -Area of Debridement (cm) - Width 0.5 -Total Square (Area) (cm) 0.25 -Tunneling No -Undermining/Tunneling No -Circular Undermining Yes -Wound/Ulcer Outcome Not Healed -Ulcer Cleansing Rinsed/ Irrigated with Saline -Foul Odor after Cleansing No -Bioengineered Tissue No -Bleeding Controlled with Pressure -Offloading No -Debridement - Subq, 1st 20sq cm Yes Pain Scale: 0-10 Numeric Is Patient Pain Free? Yes - Nurse 3 - General Ulcer D/C NN Start: 05/30/20 14:06 Freq: Status: Active Protocol: Activity Type Activity Date Activity User E-Sign Co-Sign Detail Recorded Client Recorded Date Recorded By Document 05/30/20 14:47 [facility] [id number] 05/30/20 14:48 BM Document 06/13/20 15:38 RB [id number] 06/13/20 15:40 RB 05/30/20 06/13/20 14:47 15:38 Wound Care Nurse 3 #11- LUMBAR -Ulcer Cleansing Rinsed/ Rinsed/ Irrigated with Irrigated with Saline Saline -Foul Odor after Cleansing No -Primary Dressing Applied Silvercel Silvercel -Primary Dressing Covered/Secured with Secured with Dry Gauze, Tape,Other Secured with Tape -Other Covering ABD -Silvercel 1 1 Treatment Response Procedure Tolerated Well Blood Pressure (90/60-120/80) 140/80 H Blood Pressure Mean (mm Hg) 100 Source Monitor Position Semi-Fowlers Blood Pressure Location Left Arm Vital Signs Comment PT REFUSED. IN HURRY TO GET GRANDKIDS OFF THE BUS Pain Scale: 0-10 Numeric Is Patient Pain Free? Yes Yes Teaching: Wound Center Dressing Your Wound -Person Taught Patient -Teaching Method Discussion, Demonstration -Response to teaching Verbalize understanding WC - Visit Discharge Discharge Condition Stable Stable Ambulatory Status Ambulatory, Ambulatory Walker Transportation Private Auto Private Auto Accompanied by Medication Reconcilliation completed & No provided to patient/care provider Clinical Summary of Care Provided Yes No debridement was completed today Assessment/Plan Active Problems (Last Reviewed 03/09/19 @ 01:[address] Yasmani Teixeira MD) Chronic ulcer of back (Chronic) History of lumbar spinal fusion (Chronic) Assessment: See above diagnoses Plan: The patient was seen and examined at the wound center today and was updated on the plan of care. A subcutaneous debridement was performed today. The patient tolerated the procedure well. The patients wound care will consist of: Application of silvercell moistened change daily and cover with gauze. Wound cultures were collected. Baseline bloodwork ordered. Lumbar x-ray ordered given the location of the wound being at the base of her surgical incisional scar. Patient educated on the importance of diet on wound healing and instructed to increase protein and vitamin C intake. Patient verbalized understanding. Patient will follow up at wound healing center in one week or sooner if needed. This note was generated with dotHIVation software. It may contain incorrect words, spelling, and punctuation that were not noted in checking the note before signing. . Recent laboratory results have been reviewed and noted. A culture from 05/30/2020 was negative, demonstrating no growth of organisms. Laboratory results from 05/31/2020 revealed the following: White blood count 8.2, hemoglobin 11.2, hematocrit 33.5, platelets 250,000, sodium 128, potassium 3.8, chloride 93, BUN 20, creatinine 1.39, glucose 86, calcium 9.0, total bilirubin 0.20, AST 21, ALT 26, alkaline phosphatase 132, C-reactive protein 43.80, total protein 7.7, albumin 3.2, prealbumin 18.4. A CT scan of the lumbar spine, performed on 06/05/2020, revealed Status post multilevel laminectomy and interpedicular screw fixation with no evidence of spinal stenosis at this time. There was no mention of findings which would suggest the presence of infection, abscess, etc. An x-ray of the sacrum and coccyx, performed on 05/31/2020, revealed Lumbosacral pedicular screw fusion with otherwise unremarkable sacrum. Osteoporosis. An x-ray of the lumbar spine, performed on 05/31/2020, revealed L2-S1 pedicular screw fusion. Periscrew lucency bilaterally at S1. Based upon the patient's physical presentation, and in consideration of the patient's history, having undergone for lumbosacral spinal fusions in the past, there is some concern as to the possible presence of infection of the implanted hardware, a suture granuloma or abscess, etc. Physical findings suggest the presence of a sinus tract of at least 5 cm length, which appears to track upward toward the lumbosacral spine. Concerns with regard to possible hardware or suture infection will be conveyed to Jesse Krishnan, nurse practitioner, who is the patient's established wound care provider. I will contact Jesse Krishnan to discuss my concerns. It is anticipated that the patient will continue to follow-up in our wound care facility, and will see Jesse Krishnan in routine follow-up next week.
== END 2020-06-22 23:59 ==
LOC: WC 14:15
PROVIDERS: PCP Family Medicine; Referring Provider Family Medicine; Visit Provider Nurse Practitioner Family
DX: L98.422 Non-pressure chronic ulcer of back with fat layer exposed (principal); R29.90 Unspecified symptoms and signs involving the nervous system; J45.909 Unspecified asthma, uncomplicated; I25.10 Atherosclerotic heart disease of native coronary artery without angina pectoris; I50.9 Heart failure, unspecified; E78.5 Hyperlipidemia, unspecified; I34.0 Nonrheumatic mitral (valve) insufficiency; G62.9 Polyneuropathy, unspecified; Z95.5 Presence of coronary angioplasty implant and graft; N28.9 Disorder of kidney and ureter, unspecified; Z98.1 Arthrodesis status; G89.29 Other chronic pain; M54.5 Low back pain; I73.9 Peripheral vascular disease, unspecified; I11.0 Hypertensive heart disease with heart failure; E03.9 Hypothyroidism, unspecified; M81.0 Age-related osteoporosis without current pathological fracture; Z79.82 Long term (current) use of aspirin; Z80.1 Family history of malignant neoplasm of trachea, bronchus and lung; Z82.49 Family history of ischemic heart disease and other diseases of the circulatory system; Z86.14 Personal history of Methicillin resistant Staphylococcus aureus infection; Z88.0 Allergy status to penicillin; Z88.5 Allergy status to narcotic agent; Z88.8 Allergy status to other drugs, medicaments and biological substances; Z96.641 Presence of right artificial hip joint
CPT/HCPCS: 11042; 87070; 87075; 87205; 99203; 99212; G0463

== ENCOUNTER 2020-06-27 14:00 | Outpatient (RCR) | payer MEDICARE, OTHER, SELFPAY ==
[2020-06-23 00:36] VITALS: BP 140/80; PULSE 99; RESP 18; TEMP 36.1
[2020-06-27 13:45] VITALS: BP 132/63; PULSE 82; RESP 20; TEMP 36.1; BMI 27.1
--- NOTE | 2020-06-27 14:00 | PN.PCM_ITS ---
(1) Chronic ulcer of back Status: Chronic Code(s): L98.429 - Non-pressure chronic ulcer of back with unspecified severity (2) History of lumbar spinal fusion Status: Chronic Code(s): Z98.1 - Arthrodesis status Type of Wound Date of Service: 06/27/20 Chief Complaint: Nonhealing ulcer to lower back at the base of her prior incision of a spinal fusion in 2016 History of Wound: This is a 70-year-old white female who presents to the wound healing center today with a 3-month history of a open draining nonhealing ulcer to her lower back at the base of the scar where her prior lumbar fusion surgery took place. She states that it is been draining clear drainage over the past couple of months. She has been seen by her primary care who has placed her on multiple antibiotics. She has a past medical history significant for hypertension, CAD, hyperlipidemia, hypothyroidism, and chronic low back pain. 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 She has been utilizing Silvadene and covering with a bandage. She denies any headache nausea vomiting or localized or systemic signs of infection. She has not had any cultures done. All other systems reviewed and negative with exception of those listed above. Progress of Wound: Stable - Physical Exam Vital Signs Temp Pulse Resp BP 97 F L 80 20 H 130/60 H 06/27/20 13:45 06/27/20 14:25 06/27/20 13:45 06/27/20 14:25 General: Alert, Oriented x3, Cooperative HEENT: Atraumatic Oral: Moist Mucosa Lungs: Normal air movement Cardiovascular: Regular rate Extremities: Capillary Refill Less than 3 Seconds Skin: Ulcer/ Wound - Lower lumbar ulcer that has tunneling Wound Measurements and Assessment WC - Nurse 1 - General Ulcer Measurement Start: 06/27/20 13:43 Freq: Status: Active Protocol: Activity Type Activity Date Activity User E-Sign Co-Sign Detail Recorded Client Recorded Date Recorded By Document 06/27/20 13:45 DL [id number] 06/27/20 13:52 DL 06/27/20 13:45 Wound Center Nurse 1 [Ulcer Assessment] #11- LUMBAR -Current Size (cm) - Length 0.4 -Current Size (cm) - Width 0.3 -Current Size (cm) - Depth 2.5 -Total Square Cm 0.12 -Photo Taken No -Exudate Amt Small -Exudate Type Serosanguineous -Wound Margin Distinct, Outline Attached -Granulation Amt Small (1-33%) -Granulation Quality [place] -Necrosis Amt Small (1-33%) -Necrotic Tissue Type Adherent Slough -Structure Exposed N/A -Texture (Barbara-wound Skin Appearance) Scarring -Moisture (Barbara-wound Skin Appearance No Abnormality ) -Color (Barbara-wound Skin Appearance) No Abnormality -Temperature (Barbara-wound Skin No Abnormality Appearance) (Pt Warm) -Tenderness on Palpation (Barbara-wound No Skin Appearance) -Ulcer Cleansing Rinsed/ Irrigated with Saline -Foul Odor after Cleansing No -Anesthetic Used 4% Lidocaine Solution AGUEDA - Nurse 2 - General Ulcer CM Notes Start: 06/27/20 13:43 Freq: Status: Active Protocol: Activity Type Activity Date Activity User E-Sign Co-Sign Detail Recorded Client Recorded Date Recorded By Document 06/27/20 14:07 MW [id number] 06/27/20 14:10 MW 06/27/20 14:07 Wound Center Nurse 2 [Procedure/Treatment] -Time 14:07 -Correct Patient Yes -Correct Side, Site, Position Yes -Correct Procedure Yes -Procedure Performed Yes -Type of Procedure Debridement -Clinical Debridement Subcutaneous -Tissue Removed Subcutaneous -Post Debridement (cm) - Length 0.5 -Post Debridement (cm) - Width 0.4 -Post Debridement (cm) - Depth 1.2 -Total Square (Post) (cm) 0.20 -Area of Debridement (cm) - Length 0.5 -Area of Debridement (cm) - Width 0.4 -Total Square (Area) (cm) 0.20 -Tunneling No -Undermining/Tunneling No -Circular Undermining No -Wound/Ulcer Outcome Not Healed -Ulcer Cleansing Rinsed/ Irrigated with Saline -Foul Odor after Cleansing No -Bioengineered Tissue No -Bleeding Controlled with Pressure -Offloading No -Treatment Response Procedure Tolerated Well -Debridement - Subq, 1st 20sq cm Yes [See Physician Procedure note for Specifics] Pain Scale: 0-10 Numeric [Pain] -Is Patient Pain Free? Yes AGUEDA - Nurse 3 - General Ulcer D/C NN Start: 06/27/20 13:43 Freq: Status: Active Protocol: Activity Type Activity Date Activity User E-Sign Co-Sign Detail Recorded Client Recorded Date Recorded By Document 06/27/20 14:25 PA [id number] 06/27/20 14:26 MT 06/27/20 14:25 Wound Care Nurse 3 [Wound Dressing] #11- LUMBAR -Primary Dressing Applied Silvercel -Other Dressing abd -Primary Dressing Covered/Secured Dry Gauze, with Secured with Tape -Silvercel 1 Vital Signs [Pulse] -Pulse Rate (60-100) 80 -Pulse Location Monitor [Blood Pressure] -Blood Pressure (90/60-120/80) 130/60 H -Blood Pressure Mean (mm Hg) 83 -Source Monitor -Position Semi-Fowlers -Blood Pressure Location Left Arm Pain Scale: 0-10 Numeric [Pain] -Is Patient Pain Free? Yes WC - Visit Discharge [Visit Discharge Information] -Discharge Condition Stable -Ambulatory Status Ambulatory, Walker -Transportation Private Auto -Medication Reconcilliation completed No & provided to patient/care provider -Clinical Summary of Care Provided Yes Musculoskeletal: No Tenderness to Palpation of Joints or Extremities Neurological: Cranial nerves II-XII grossly intact Psych/Mental Status: Normal Affect, Appropriate Debridement Note Post-Debridement Measurements/Treatment WC - Nurse 2 - General Ulcer CM Notes Start: 06/27/20 13:43 Freq: Status: Active Protocol: Activity Type Activity Date Activity User E-Sign Co-Sign Detail Recorded Client Recorded Date Recorded By Document 06/27/20 14:07 MW [id number] 06/27/20 14:10 MW 06/27/20 14:07 Wound Center Nurse 2 #11- LUMBAR -Time 14:07 -Correct Patient Yes -Correct Side, Site, Position Yes -Correct Procedure Yes -Procedure Performed Yes -Type of Procedure Debridement -Clinical Debridement Subcutaneous -Tissue Removed Subcutaneous -Post Debridement (cm) - Length 0.5 -Post Debridement (cm) - Width 0.4 -Post Debridement (cm) - Depth 1.2 -Total Square (Post) (cm) 0.20 -Area of Debridement (cm) - Length 0.5 -Area of Debridement (cm) - Width 0.4 -Total Square (Area) (cm) 0.20 -Tunneling No -Undermining/Tunneling No -Circular Undermining No -Wound/Ulcer Outcome Not Healed -Ulcer Cleansing Rinsed/ Irrigated with Saline -Foul Odor after Cleansing No -Bioengineered Tissue No -Bleeding Controlled with Pressure -Offloading No -Treatment Response Procedure Tolerated Well -Debridement - Subq, 1st 20sq cm Yes Pain Scale: 0-10 Numeric Is Patient Pain Free? Yes WC - Nurse 3 - General Ulcer D/C NN Start: 06/27/20 13:43 Freq: Status: Active Protocol: Activity Type Activity Date Activity User E-Sign Co-Sign Detail Recorded Client Recorded Date Recorded By Document 06/27/20 14:25 PA [id number] 06/27/20 14:26 PA 06/27/20 14:25 Wound Care Nurse 3 #11- LUMBAR -Primary Dressing Applied Silvercel -Other Dressing abd -Primary Dressing Covered/Secured with Dry Gauze, Secured with Tape -Silvercel 1 Vital Signs Pulse Rate (60-100) 80 Pulse Location Monitor Blood Pressure (90/60-120/80) 130/60 H Blood Pressure Mean (mm Hg) 83 Source Monitor Position Semi-Fowlers Blood Pressure Location Left Arm Pain Scale: 0-10 Numeric Is Patient Pain Free? Yes WC - Visit Discharge Discharge Condition Stable Ambulatory Status Ambulatory, Walker Transportation Private Auto Medication Reconcilliation completed & No provided to patient/care provider Clinical Summary of Care Provided Yes Wound debrided: lower lumbar ulcer Type of Debridement: Excisional debridement Anesthesia Used: 5% Lidocaine Gel Depth: Down to and including healthy tissue, in the subcutaneous layer Percentage of wound debrided: 100 Instrument Used: 3mm curette Tissue Removed: Subcutaneous tissue and slough, not aggressively debrided Severity: Fat Layer Exposed Amount of bleeding with debridement: Mild Bleeding Controlled with: Pressure Patient tolerated procedure well Assessment/Plan Assessment: See above diagnoses Plan: The patient was seen and examined at the wound center today and was updated on the plan of care. A subcutaneous debridement was performed today. The patient tolerated the procedure well. The patients wound care will consist of: Application of silvercell moistened change daily and cover with gauze. Wound cultures were collected on 05/30/20. Lumbar x-ray ordered given the location of the wound being at the base of her surgical incisional scar. Patient educated on the importance of diet on wound healing and instructed to increase protein and vitamin C intake. Patient verbalized understanding. Patient will follow up at wound healing center in two weeks. She has an appointment with a Spinal neurosurgeon, Dr. Vargas next week at [facility] to have the tunneling evaluated. CT from 06/05/20 reviewed. This note was generated with Dragon dictation software. It may contain incorrect words, spelling, and punctuation that were not noted in checking the note before signing. . Recent laboratory results have been reviewed and noted. A culture from 05/30/2020 was negative, demonstrating no growth of organisms. Laboratory results from 05/31/2020 revealed the following: White blood count 8.2, hemoglobin 11.2, hematocrit 33.5, platelets 250,000, sodium 128, potassium 3.8, chloride 93, BUN 20, creatinine 1.39, glucose 86, calcium 9.0, total bilirubin 0.20, AST 21, ALT 26, alkaline phosphatase 132, C-reactive protein 43.80, total protein 7.7, albumin 3.2, prealbumin 18.4. A CT scan of the lumbar spine, performed on 06/05/2020, revealed Status post multilevel laminectomy and interpedicular screw fixation with no evidence of spinal stenosis at this time. There was no mention of findings which would suggest the presence of infection, abscess, etc. An x-ray of the sacrum and coccyx, performed on 05/31/2020, revealed Lumbosacral pedicular screw fusion with otherwise unremarkable sacrum. Osteoporosis. An x-ray of the lumbar spine, performed on 05/31/2020, revealed L2-S1 pedicular screw fusion. Periscrew lucency bilaterally at S1. Based upon the patient's physical presentation, and in consideration of the patient's history, having undergone for lumbosacral spinal fusions in the past, there is some concern as to the possible presence of infection of the implanted hardware, a suture granuloma or abscess, etc. Physical findings suggest the presence of a sinus tract of at least 5 cm length, which appears to track upward toward the lumbosacral spine. Concerns with regard to possible hardware or suture infection will be conveyed to Jesse Krishnan, nurse practitioner, who is the patient's established wound care provider. I will contact Jesse Krishnan to discuss my concerns. It is anticipated that the patient will continue to follow-up in our wound care facility, and will see Jesse Krishnan in routine follow-up next week. [id number]: [id number] Rosenda subq tissue 20 sq cm/<
[2020-06-27 14:25] VITALS: BP 130/60; PULSE 80
== END 2020-07-01 11:54 | disposition home or self-care (01) ==
LOC: WC 14:00
PROVIDERS: PCP Family Medicine; Referring Provider Family Medicine; Visit Provider Nurse Practitioner Family
DX: L98.422 Non-pressure chronic ulcer of back with fat layer exposed (principal); Z98.1 Arthrodesis status; I25.10 Atherosclerotic heart disease of native coronary artery without angina pectoris; E78.5 Hyperlipidemia, unspecified; E03.9 Hypothyroidism, unspecified; I10 Essential (primary) hypertension; M81.0 Age-related osteoporosis without current pathological fracture; M54.5 Low back pain; G89.29 Other chronic pain; Z86.14 Personal history of Methicillin resistant Staphylococcus aureus infection
CPT/HCPCS: 11042

== ENCOUNTER 2020-07-09 12:20 | Emergency (ER) | payer MEDICARE, OTHER, SELFPAY ==
[2020-07-09 12:21] VITALS: BP 146/60; PULSE 67; RESP 18; TEMP 36.4; O2SAT 100; BMI 27.4
--- NOTE | 2020-07-09 13:08 | ED.VIS.GEN ---
History of Present Illness Chief Complaint: Wound Check Detail of Chief Complaint: Evaluate for CSF leak Informant: Patient, - - From wound center Onset: Days, Weeks Timing: Continuous Quality: Reported clear drainage Location: Inferior portion of midline lumbar incision status post laminectomy Current Severity: Mild Maximum Severity: Mild Worsened by: Nothing Relieved by: Nothing Associated Symptoms: No constitutional symptoms, headache or change in back pain Narrative: She has an elderly woman who presents for evaluation of CSF leak from the wound. She had a laminectomy in 2017. States the wound has been there for 4 months. She has clear drainage. She denies fever, chills or night sweats. Eyes headache and specifically positional headache. She has no other complaints. Prior similar symptoms: Yes Recent Illness/Hospitalization: Yes - Past Medical History (1) Asthma Status: Chronic (2) Atherosclerotic heart disease of [place] coronary artery without angina pectoris Status: Chronic Comment: PCI/stent of the distal CX; PCI/ALEXANDRO to prox RCA 08/19/06 (3) Chronic ulcer of back Status: Chronic (4) Congestive heart failure (CHF) Status: Chronic (5) History of lumbar spinal fusion Status: Chronic (6) Hyperlipidemia Status: Chronic (7) Hypertension Status: Chronic (8) Nonrheumatic mitral valve regurgitation Status: Chronic (9) PAD (peripheral artery disease) Status: Chronic (10) Peripheral neuropathy Status: Chronic (11) Renal insufficiency Status: Chronic Past Medical History - Allergies and Home Meds Allergies/Adverse Reactions: Allergies colesevelam HCl [From WelChol] Allergy (Verified 07/09/20 12:23) Unknown metolazone [From Zaroxolyn] Allergy (Verified 07/09/20 12:23) Unknown nitrofurantoin macrocrystalline [From Macrodantin] Allergy (Verified 07/09/20 12:23) Unknown Penicillins Allergy (Verified 07/09/20 12:23) Unknown PASSED OUT pravastatin sodium [From Pravachol] Allergy (Verified 07/09/20 12:23) Unknown tramadol Adverse Reaction (Verified 07/09/20 12:23) Nausea Primary Care Physician: Rigoberto Maher MD [Primary Care Provider] - Prior records reviewed: Yes - Viewed CAT scan report from June 05 Surgical History: - - coronary stents, femoral stents bilateral lower extremities, lumbar fusion L5, carpal tunnel surgery, appendectomy, right hip replacement. Lives: Alone Smoking Status: Unknown if ever smoked Alcohol: None Drugs: None - Family History Maternal Family History: Family History (Last Reviewed 03/09/19 @ 01:[address] Yasmani Teixeira MD) Father Heart disease Mother Myocardial infarction, Onset Age: 50 CAD (coronary artery disease) Brother Diabetes Family History: Reports: - - The patient's mother in her 60s from lung cancer. Paternal Family History: Family History (Last Reviewed 03/09/19 @ 01:[address] Yasmani Teixeira MD) Father Heart disease Mother Myocardial infarction, Onset Age: 50 CAD (coronary artery disease) Brother Diabetes Family History: Reports: - - The patient's father at age of 82 of congestive heart failure. Review of Systems General: Denies: Chills, Fever, Malaise, Subjective, Sweats Gastrointestinal: Denies: Abdominal pain, Nausea, Vomiting, Diarrhea Musculoskeletal: Reports: Back pain - Chronic pain. Denies: Myalgias, Arthralgias, Neck pain, Swelling, Extremity Pain Skin: Reports: Wounds. Denies: Rash Neurological: Denies: Headache, Weakness, Parasthesia Hematologic: Denies: Easy bruising, Easy bleeding Physical Exam Vital Signs/Narrative: Vital Signs Temp Pulse Resp BP Pulse Ox 07/09/20 12:21 97.6 F L 67 18 146/60 H 100 Inital Vital Signs reviewed: Yes General: Well nourished, Well developed, No Acute Distress. Negative for: Obese Head: Normocephalic, Atraumatic Eyes: Perrl, EOMI Neck: Supple, Nontender Cardiovascular: Regular rate, Regular rhythm, No murmurs, Normal S1, Normal S2 Respiratory: No distress, CTA bilaterally Abdomen: Soft, Nontender, Nondistended Back: Nontender. Negative for: Normal Inspection, CVA tenderness, Spinal tenderness Extremities: Nontender, No edema Skin: Normal color, No rash, No Trauma. Negative for: Cyanosis, Diaphoresis, Jaundice Neurological: Alert, Oriented x3, Cranial nerves II-XII grossly intact, Normal Strength, Normal Sensation Psychological: Depressed Diagnostic/Tx/Re-eval - Medical Decision Making Dr. Garcia was contacted at the [facility]. He informed that he would look into who sent her in and why she was sent in. He looked at the records. He informed that he did seem to begin in May. She had a CAT scan to evaluate for possible sinus tract. None was noted per the report. I did view the film and there was no inflammatory changes that I was able to determine. There is artifact because a laminectomy. Patient had no change in symptoms. She has no constitutional symptoms. We agreed since this has been going on for greater than 1 month and she is asymptomatic she should keep the appointment with the neurosurgeon that is scheduled for tomorrow. ED Disposition - Plan for ED Patient: Disposition: Home or Assisted Living Diagnosis: Postoperative wound sinus Instructions: ED Wound Check Post Op No Infec Referrals: Rigoberto Maher MD [Primary Care Provider] - Additional Instructions: Keep scheduled appointment with surgeon for tomorrow.
== END 2020-07-09 13:41 | disposition home or self-care (01) ==
PROVIDERS: Emergency Provider Emergency Medicine; PCP Family Medicine
DX: T81.83XA Persistent postprocedural fistula, initial encounter (principal); J45.909 Unspecified asthma, uncomplicated; I25.10 Atherosclerotic heart disease of native coronary artery without angina pectoris; I11.0 Hypertensive heart disease with heart failure; I50.9 Heart failure, unspecified; E78.5 Hyperlipidemia, unspecified; I73.9 Peripheral vascular disease, unspecified
CPT/HCPCS: 99282

== ENCOUNTER 2021-10-21 07:39 | Day surgery (SDC) | payer MEDICARE, OTHER, SELFPAY ==
--- NOTE | 2021-10-20 09:35 | EKG12_ITS ---
Test Reason : PRE OP Blood Pressure : / mmHG Vent. Rate : 069 BPM Atrial Rate : 069 BPM P-R Int : 142 ms QRS Dur : 082 ms QT Int : 470 ms P-R-T Axes : 042 027 034 degrees QTc Int : 503 ms Normal sinus rhythm Normal ECG Confirmed by EMILIANA JAMES, MARIELENA ([id number]), staff editor KIARA CONSTANTINO ([id number]) on 10/21/2021 11:17:06 AM Referred By: Donell Cheatham Confirmed By:MARIELENA HOPSON MD
[2021-10-20 10:58] LABS: Hematocrit 32.5 % (37-47); Hemoglobin 10.7 g/dL (12.0-15.0); Mean Corp Hgb Conc 32.9 g/dL (32-36); Mean Corpuscular Hgb 31.5 pg (27.0-32.0); Mean Corpuscular Volume 95.6 fL (81-99); Mean Platelet Vol. 9.6 fl (6.2-12.0); Platelet Count 272 K/mm3 (150-450); RBC Distribution Width CV 14.5 % (11.6-14.6); RBC Distribution Width SD 50.5 fl (35.1-43.9); White Blood Count 8.9 K/mm3 (4.4-11.0)
[2021-10-20 11:26] LABS: Anion Gap 7 (5-15); BUN 33 mg/dL (7-18); Calcium,Total 9.4 mg/dL (8.5-10.1); Chloride 104 mmol/L (98-107); Creatinine, Serum 2.75 mg/dL (0.55-1.02); EST Glomerular Filtration Rate 18 mL/min (>60); Est Glom Filt Rate - Afr Amer 22 mL/min (>60); Glucose 100 mg/dL (74-106); Potassium 3.4 mmol/L (3.5-5.1); Sodium Level 140 mmol/L (136-145)
[2021-10-21] VITALS (9 sets, daily range): BP systolic 109–120; BP diastolic 45–61; PULSE 60–65; RESP 14–18; TEMP 36.1–36.6; O2SAT 98–100; BMI 31.4
--- NOTE | 2021-10-21 09:30 | HP.PCM_ITS ---
History and Physical Date of Admission: 10/21/21 isit Reasons: FISTULA, VM 10/06 POMERENE Chief Complaint: fistula consult Daytime Caregiver Required: No Is patient in pain?: No Allergies colesevelam HCl [From WelChol] Allergy (Verified 10/10/21 09:05) Unknown metolazone [From Zaroxolyn] Allergy (Verified 10/10/21 09:05) Unknown nitrofurantoin macrocrystalline [From Macrodantin] Allergy (Verified 10/10/21 09:05) Unknown Penicillins Allergy (Verified 10/10/21 09:05) Unknown pravastatin sodium [From Pravachol] Allergy (Verified 10/10/21 09:05) Unknown tramadol Adverse Reaction (Verified 10/10/21 09:05) Nausea Medications montelukast 10 mg PO DAILY 06/19/15 [History Confirmed 10/10/21] nitroglycerin 0.4 mg SUBLINGUAL Q5M PRN 06/19/15 [History Confirmed 10/10/21] ranolazine 1,000 mg PO BID 06/19/15 [History Confirmed 10/10/21] aspirin 81 mg PO DAILYCM tablet 11/05/17 [Rx Confirmed 10/10/21] hydroxyzine HCl 25 mg PO Q6H PRN PRN 02/10/19 [History Confirmed 10/10/21] rosuvastatin 20 mg PO DAILY 02/10/19 [History Confirmed 10/10/21] metoprolol tartrate 25 mg PO DAILY 02/24/19 [History Confirmed 10/10/21] levothyroxine 88 mcg PO DAILY 04/11/19 [History Confirmed 10/10/21] linaclotide 145 mcg PO DAILY 04/11/19 [History Confirmed 10/10/21] omeprazole 40 mg PO DAILY 04/11/19 [History Confirmed 10/10/21] spironolactone 25 mg PO DAILY 04/11/19 [History Confirmed 10/10/21] clopidogrel 75 mg tablet 75 mg PO DAILY tab 10/10/21 [History Confirmed 10/10/21] Is last menstrual period known: No Post menopausal: Yes Patient : No PFSH Medical History ANDRIY (acute kidney injury) Asthma Atherosclerotic heart disease of [place] coronary artery without angina pectoris Cellulitis Cellulitis of right lower extremity Congestive heart failure (CHF) Foot drop, left History of DVT (deep vein thrombosis) Hyperlipidemia Hypertension Lumbar disc disease Lumbar radiculopathy Nonrheumatic mitral valve regurgitation PAD (peripheral artery disease) Peripheral neuropathy Renal insufficiency Rheumatoid arthritis Spinal stenosis of lumbar region Ulcer of left lower extremity with fat layer exposed Ulcer of right lower extremity with fat layer exposed Urinary retention Surgical History History of bunionectomy of left great toe History of carpal tunnel surgery History of hysterectomy History of laminectomy Hx of appendectomy Postsurgical percutaneous transluminal coronary angioplasty (PTCA) status Presence of stent in coronary artery Status post insertion of iliac artery stent Family History Father Heart disease Mother Myocardial infarction, Onset Age: 50 CAD (coronary artery disease) Brother Diabetes Social History Smoking Status: Unknown if ever smoked alcohol intake: never substance use type: does not use HPI HPI HPI: MARCOS SHELTON, is a 71 F who presents to the office today for surgical consultation regarding creation of arteriovenous hemodialysis fistula. The patient is referred by Dr Cookie Currie and a written copy of my surgical consult and recommendations will return to him. On March 05, 2022 at [facility] the patient had bilateral upper extremity vein mapping. This demonstrates that bilateral upper extremity cephalic and basilic veins are quite small throughout. The patient is right arm dominant. She has not any previous fistulas. She states that over the years she has had multiple hospitalizations. Apparently at least 5 different back operations with problems with infections. She likely has had multiple superficial IVs. We have found information from a [facility] discharge summary dated April 25, 2021. She had a an NSTEMI. She had an echocardiogram showing ejection fraction of 55 to 60%. A small membranous VSD was noted. Mild stenosis of the aortic valve and mild stenosis of the mitral valve. The patient underwent a cardiac catheterization. Patient was noted to have a prior stent involving the RCA with mild in-stent stenosis. The stent involving the distal LCx was felt to be patent. The patient has had clopidogrel therapy added to her aspirin therapy. Unfortunately the patient and her are very poor historians. We have evidence of September 23, 2021 BUN was 27 and creatinine 2.6. She is not currently on hemodialysis. It is hoped that a fistula can be created for her. She has had a previous history of tobacco use. Apparently quit in the late 90s. ROS General General: Yes weight change and appetite; No fatigue, colon cancer, breast cancer or weakness HEENT HEENT: Yes eye surgery; No difficulty swallowing, eye injury, swollen glands or hoarseness Endo Endocrine: Yes thyroid disease; No diabetes mellitus, thyroid cancer, Hair loss, heat intolerance or cold intolerance Musc Musculoskeletal: Yes back problems, arthritis and rheumatoid arthritis; No gout or joint pain Cardio Cardiovascular: Yes murmur, heart disease, high blood pressure, heart attack and heart stent; No pacemaker, atrial fibrillation, palpitations, shortness of breat with exertion or chest pain Psych Psychiatric: No depression, anxiety or hearing voices Resp Respiratory: Yes shortness of breath, No sleep apnea, No cough, No COPD, Yes asthma, No emphysema and No wheezing Gastro Gastrointestinal: No abdominal pain, Yes nausea or vomiting, No diarrhea, No constipation, No blood in stool, Yes acid reflux, No hemorrhoids, No ulcers, No gallbladder problem and No black,tarry stools Arnoldo Hematologic: Yes blood thinners, No blood disorders, No bleeding, Yes anemia and No blood clots Neuro Neurologic: No weakness Exam Const General: cooperative, comfortable and no acute distress Orientation: alert [facility] Head: normal to inspection Eyes General: appearance normal, both eyes and all related structures Neck Neck: normal visual inspection Chest Other: Increased anterior posterior diameter Resp Effort & Inspection: normal respiratory effort Auscultation: clear to auscultation bilaterally Cardio Rate: regular rate Rhythm: regular rhythm GI Palpation: no hepatosplenomegaly Skin Other: Multiple areas of ecchymosis and hyperpigmentation bilateral upper extremities Extrem Other: 1+ bilateral lower extremity swelling 1+ left radial pulse. 2+ left brachial pulse. Left basilic vein is visualized and is patent and compressible however proximal to the antecubital space it branches and really becomes quite small. Psych Affect: normal affect Assessment and Plan Assessment and Plan (1) Chronic renal failure, stage 4 (severe): Status: Chronic Plan - Dr. Donell Cheatham MD: 71-year-old female. She is referred for creation of a hemodialysis fistula. She is a poor historian however from her history it sounds like she has had multiple orthopedic procedures with subsequent prosthetic removed from her back due to chronic infection. Ideally a fistula would be created for her and in an attempt to avoid a prosthetic device. I propose for her stage I left upper arm brachial to basilic arteriovenous hemodialysis fistula. The basilic vein branches short of the antecubital space. The initial stage I procedure may be technically challenging secondary to the diminutive size of the basilic vein. I will need to map it on the day of her procedure and try to decide how best to approach it. She is on clopidogrel therapy. We will have her hold that just 2 days preoperatively. She has had an opportunity to ask and have questions answered. She is clearly aware that there are no guarantees of success. Copy: Dr Cookie Currie and Dr. Rigoberto Cheatham M.D., F.A.C.S. I have re-examined the patient. There are no clinical changes since date of exam.
--- NOTE | 2021-10-21 09:31 | EX.PCM.DISCH ---
Discharge Instructions Procedure Fistula Diet Discharge Diet: Renal Diet Activity Discharge Activity: May Not Drive (for 2-3 days or while taking narcotic pain medications.), May Shower and May Take a Tub Bath (in 5 days.) Lifting Restrictions: 5 pounds Keep extremity elevated above heart level: - (Keep arm elevated above the heart level for 3 days.) Dressing / Incision Call your doctor if your incision/area has: Continuous Slow Oozing, Sudden Increased Bleeding (apply pressure and call your doctor.), Increased Pain/ Swelling, Increased Redness and Foul Smelling Discharge Call your doctor if you observe: Fever of 101 or Higher Suture Line Care: Avoid Pulling/Pushing and Avoid Pinching/Bending Cleanse incision/area with: Keep Dressing Clean & Dry Additional Dressing/Incision Instructions:: Change or remove dressing in one day. May protect with a gauze bandaid. Follow Up Care Please Follow Up With: Donell Cheatham MD When: Call [phone] to make an appointment for suture removal and follow up in 1 week. Test Results: Test results from this visit will be discussed in further detail at your follow-up appointment, if applicable. Discharge Plan Admission Attending Provider: Donell Cheatham Primary Care Provider: Rigoberto Maher Discharge Orders/Prescriptions Prescriptions: No Action clopidogrel 75 mg tablet 75 mg PO DAILY RF: 0 nitroglycerin 0.4 MG tablet 0.4 mg SUBLINGUAL Q5M PRN (Reason: Chest Pain) RF: 0 ranolazine 1,000 MG tablet extended release 12 hr 500 mg PO BID RF: 0 aspirin 81 MG tablet 81 mg PO DAILYCM RF: 0 hydroxyzine HCl 25 MG tablet 25 mg PO Q6H PRN PRN (Reason: Itching) RF: 0 rosuvastatin 20 MG tablet 20 mg PO DAILY RF: 0 metoprolol tartrate 25 MG tablet 25 mg PO DAILY RF: 0 omeprazole 40 MG capsule,delayed release(DR/EC) 40 mg PO BID RF: 0 levothyroxine 88 MCG tablet 88 mcg PO DAILY RF: 0 furosemide 40 mg tablet 40 mg PO DAILY RF: 0 levetiracetam [Keppra] 500 mg tablet 500 mg PO BID RF: 0 potassium chloride 10 mEq tablet extended release 10 meq PO DAILY RF: 0 amlodipine 5 mg tablet 5 mg PO DAILY RF: 0 temazepam 30 mg capsule 30 mg PO DAILY RF: 0 calcitriol 0.5 mcg capsule 0.5 mcg PO DAILY RF: 0 montelukast 10 mg tablet 10 mg PO DAILY RF: 0 pyridoxine (vitamin B6) [Vitamin B-6] 100 mg Tablet 100 mg PO DAILY RF: 0
[2021-10-21] MEDS: Heparin Injection (Vial) 5,000 UNIT/ML VIAL 5000 UNIT (10:15)
[2021-10-21] MEDS: Lidocaine 1% (20 ml mdv) 20 ML Vial (10:30)
[2021-10-21] MEDS: Bupivacaine Mpf 0.5% 30 ML VIAL (10:30)
--- NOTE | 2021-10-21 11:08 | OP.PCM_ITS ---
Problems Associated Problem List Diagnoses (1) Chronic renal failure, stage 4 (severe): Report of Operation Date of Procedure: 10/21/21 Pre-Operative Diagnosis: Stage IV chronic renal insufficiency Post-Operative Diagnosis: Same Surgery/Procedure Performed:: Stage I left upper extremity basilic vein to brachial artery arteriovenous hemodialysis fistula creation Description of Surgical Findings:: Timeout and informed consent was obtained. 71-year-old female was taken to the operating placed on the table underwent monitored anesthesia care. Clean procedure no antibiotics required. The left extremity sterilely prepped and draped. 1% lidocaine mixed 50-50 with 0.5% Marcaine was used as a local anesthetic. A total of 10 cc was used. Ultrasound had been performed to map the course of the basilic vein and brachial artery. An oblique incision was made a medial aspect of the antecubital area of the left upper arm sharp and blunt dissection used to identify the basilic vein branch was dissected free crossing over closer to the antecubital space side branches were secured and hemoclips. Then sharp and blunt dissection used to identify the brachial artery. Where needed the distal basilic vein was ligated with hemoclips to allow for better mobilization. And the patient received 8000 units of heparin intravenously. Peripheral vascular clamps were placed on the brachi al artery and 11 blade was used to make an arteriotomy which was extended with Kunz scissors. The vein was ligated distally with a Hemoclip was amputated spatulated it was irrigated with heparinized saline. Then an end-to-side anastomosis was created with a running 7-0 Prolene. Prior to completion there was good antegrade flow. The anastomosis was completed and immediate flow was instilled into the basilic vein with complete hemostasis and no leak. Doppler demonstrated good flow through the newly created fistula. The deep tissue was approximated up to 3-0 Vicryl. Skin edges approximated running subicular 4-0 Monocryl. Steri-Strips Telfa and tape dressings applied. Sponge and instrument and needle counts were reported to the surgeon to be correct. Specimens none. Drains none. Blood loss minimal. The patient was taken to the recovery area in satisfactory condition without apparent complication. Hand was viable. Donell Cheatham M.D., F.A.C.S. Surgeon: Donell Cheatham Type of Anesthesia: Local MAC Anesthesiologist: Yeison Stevenson
== END 2021-10-21 23:59 | disposition home or self-care (01) ==
LOC: SDC 07:40 → AC 07:40
PROVIDERS: PCP Family Medicine; Referring Provider Surgery; Visit Provider Surgery
PROC: (CPT 36819; principal; 2021-10-21 09:45)
DX: I13.0 Hypertensive heart and chronic kidney disease with heart failure and stage 1 through stage 4 chronic kidney disease, or unspecified chronic kidney disease (principal); M06.9 Rheumatoid arthritis, unspecified; I50.9 Heart failure, unspecified; N18.4 Chronic kidney disease, stage 4 (severe); I73.9 Peripheral vascular disease, unspecified; Q21.0 Ventricular septal defect; E78.5 Hyperlipidemia, unspecified; I25.10 Atherosclerotic heart disease of native coronary artery without angina pectoris; Z87.891 Personal history of nicotine dependence; I08.0 Rheumatic disorders of both mitral and aortic valves; Z78.0 Asymptomatic menopausal state; Z79.82 Long term (current) use of aspirin; Z79.02 Long term (current) use of antithrombotics/antiplatelets; Z79.899 Other long term (current) drug therapy; Z86.718 Personal history of other venous thrombosis and embolism; I34.0 Nonrheumatic mitral (valve) insufficiency; G62.9 Polyneuropathy, unspecified; J45.909 Unspecified asthma, uncomplicated; Z95.5 Presence of coronary angioplasty implant and graft; I25.2 Old myocardial infarction
CPT/HCPCS: 36819; 01844; 36415; 80048; 85027; 87426; 93005; C9803; J7040; J7120; J2405

== ENCOUNTER 2021-10-27 12:51 | Emergency (ER) | payer MEDICARE, OTHER, SELFPAY ==
[2021-10-27 12:52] VITALS: BP 148/47; PULSE 76; RESP 16; TEMP 37.6; O2SAT 100; BMI 37.3
--- NOTE | 2021-10-27 13:25 | RAD_ITS ---
STUDY: X-RAY CHEST REASON FOR EXAM: Female, 71 years old. Chest pain TECHNIQUE: Single AP portable view of the chest. COMPARISON: Comparison is made with prior study dated 04/11/2019. FINDINGS: EKG electrodes are seen. The lungs are clear and expanded. There is no demonstrated pleural abnormality. Normal size heart. Normal mediastinum and wendy. Normal visualized pulmonary arteries. There is atherosclerotic calcification of the aortic arch with tortuosity. There are diffuse degenerative changes of the visualized thoracic spine. Status post right reverse shoulder replacement. Prior fusion of the lower cervical spine. There is no demonstrated abnormality of the visualized soft tissue structures of the upper abdomen. RAD/Chest 1 View (Portable) IMPRESSION: No acute abnormality is seen. Electronically Signed: Abel Eason MD at 14:22 EST ,
--- NOTE | 2021-10-27 13:25 | EKG12_ITS ---
Test Reason : CP Blood Pressure : / mmHG Vent. Rate : 075 BPM Atrial Rate : 075 BPM P-R Int : 148 ms QRS Dur : 092 ms QT Int : 414 ms P-R-T Axes : 060 031 057 degrees QTc Int : 462 ms Normal sinus rhythm Normal ECG Confirmed by MARIELENA HOPSON MD ([id number]), supervising editor trailer KIARA CONSTANTINO ([id number]) on 10/28/2021 9:58:36 AM Referred By: PC Confirmed By:MARIELENA HOPSON MD
--- NOTE | 2021-10-27 13:25 | CT_ITS ---
STUDY: CT BRAIN WITHOUT CONTRAST REASON FOR EXAM: Female, 71 years old. Weakness, legs RADIATION DOSAGE (If Supplied By Facility): CTDIvol = ( 44.99 ) mGy, DLP = ( 796.11 ) mGycm TECHNIQUE: Transaxial CT imaging of the brain was performed without administration of intravenous contrast material. Individualized dose optimization techniques were used for this CT. COMPARISON: Comparison is made with prior study 04/11/2019. FINDINGS: Normal soft tissue structures. Normal calvarium. There is mild cerebral atrophy with widening of the extra-axial spaces and ventricular dilatation. Normal white matter tracts of the cerebral hemispheres. Normal basal ganglia and thalami. Normal brainstem. Normal cerebellum. There is no intracranial hemorrhage. There are no findings of an acute ischemic infarction. Normal visualized paranasal sinuses. CT/Brain/Head without Contrast IMPRESSION: Chronic involutional changes of the brain. Electronically Signed: Abel Eason MD at 14:27 EST ,
--- NOTE | 2021-10-27 13:51 | EX.ED.DYSGE1 ---
HPI History of Present Illness Chief Complaint: Fatigue Informant: patient Narrative Narrative: Patient is a 71-year-old female with extensive past medical history including peripheral arterial disease, coronary artery disease, CHF, renal insufficiency with fistula placement 1 week ago, not currently on hemodialysis) and chronic back pain presenting with weakness. Patient states she woke up this morning and felt fine. Around 6 AM she was walking to the bathroom and all of a sudden it felt like her legs would not work. Her had to help her go to the bathroom. She notes she has chronic tingling in her legs which is unchanged. She states is from her neuropathy. She also had a brief episode of chest pain. She said it lasted for a few minutes it was underneath her right breast and radiated to the center of her chest. Denies associated cough, shortness of breath or difficulty breathing. Denies any body aches, fever or chills. Denies any new or worsening lower extremity edema. Does have chronic lower extremity edema which is unchanged. [facility] Medical History ANDRIY (acute kidney injury) Arthritis Asthma Atherosclerotic heart disease of [place] coronary artery without angina pectoris Back pain Casiano esophagus Cardiology follow-up encounter Cellulitis Cellulitis of right lower extremity Congestive heart failure (CHF) Dietary restriction Foot drop, left Former smoker Gastric reflux High cholesterol History of DVT (deep vein thrombosis) History of echocardiogram History of edema History of heart attack History of IBS History of pain when walking History of renal disease History of stress test Hyperlipidemia Hypertension Lumbar disc disease Lumbar radiculopathy Nonrheumatic mitral valve regurgitation PAD (peripheral artery disease) Peripheral neuropathy Renal insufficiency Rheumatoid arthritis Seizures Shortness of breath on exertion Spinal stenosis of lumbar region Thyroid disease Ulcer of left lower extremity with fat layer exposed Ulcer of right lower extremity with fat layer exposed Urinary retention Walker as ambulation aid Wears dentures Wears glasses Home Medications nitroglycerin 0.4 mg SUBLINGUAL Q5M PRN 06/19/15 [History Last Taken Unknown] aspirin 81 mg PO DAILYCM tablet 11/05/17 [Rx Last Taken 10/27/21] hydroxyzine HCl 25 mg PO Q6H PRN PRN 02/10/19 [History Last Taken 03/08/19 1230] rosuvastatin 20 mg PO DAILY 02/10/19 [History Last Taken 10/26/21] omeprazole 40 mg PO BID 04/11/19 [History Last Taken 10/27/21] clopidogrel 75 mg tablet 75 mg PO DAILY tab 10/10/21 [History Last Taken 10/27/21] amlodipine 5 mg PO DAILY 10/17/21 [History Last Taken 10/27/21] calcitriol 0.5 mcg PO DAILY 10/17/21 [History Last Taken 10/26/21] furosemide 40 mg PO DAILY 10/17/21 [History Last Taken 10/27/21] levetiracetam [Keppra] 500 mg PO BID 10/17/21 [History Last Taken 10/27/21] montelukast 10 mg PO DAILY 10/17/21 [History Last Taken 10/26/21] potassium chloride 10 meq PO DAILY 10/17/21 [History Last Taken 10/27/21] pyridoxine (vitamin B6) [Vitamin B-6] 100 mg PO DAILY 10/17/21 [History Last Taken 10/27/21] temazepam 30 mg PO DAILY 10/17/21 [History Last Taken 10/26/21] gabapentin 300 mg PO TID 10/27/21 [History Last Taken 10/27/21] levothyroxine 50 mcg PO DAILY 10/27/21 [History Last Taken 10/27/21] metoprolol succinate 25 mg PO DAILY 10/27/21 [History Last Taken 10/26/21] ranolazine 500 mg PO BID 10/27/21 [History Last Taken 10/27/21] Allergy/AdvReac Type Severity Reaction Status Date / Time colesevelam HCl Allergy Unknown Verified 10/27/21 12:57 [From WelChol] metolazone [From Zaroxolyn] Allergy Unknown Verified 10/27/21 12:57 nitrofurantoin Allergy Unknown Verified 10/27/21 12:57 macrocrystalline [From Macrodantin] Penicillins Allergy Unknown Verified 10/27/21 12:57 pravastatin sodium Allergy Unknown Verified 10/27/21 12:57 [From Pravachol] tramadol AdvReac Nausea Verified 10/27/21 12:57 Family History Father Heart disease Mother Myocardial infarction, Onset Age: 50 CAD (coronary artery disease) Brother Diabetes Surgical History History of bunionectomy of left great toe History of cardiac catheterization History of carpal tunnel surgery History of hysterectomy History of laminectomy Hx of appendectomy Postsurgical percutaneous transluminal coronary angioplasty (PTCA) status Presence of stent in coronary artery Status post insertion of iliac artery stent Social History Smoking Status: Former smoker alcohol intake: never substance use type: does not use ROS ROS ED Constitutional Constitutional ED: Denies chills or fever(s) Eyes Eyes: Denies blurry vision or change in vision ENT ENT ED: Denies ear pain Cardiovascular Cardiovascular: Reports chest pain; Denies palpitations Respiratory/Chest Respiratory/Chest: Denies cough, dyspnea, dyspnea on exertion or sputum Gastrointestinal Gastrointestinal: Denies abdominal pain, nausea or vomiting Genitourinary Genitourinary ED: Reports other Details: concentrated urine ; Denies dysuria Musculoskeletal Musculoskeletal: Reports back pain; Denies arthralgias or myalgias Integumentary Denies rash Neurologic Neurologic: Reports weakness; Denies headache(s) Psychiatric Psychiatric: Denies anxiety or depression EXAM Physical Exam Const Vital Signs: 10/27/21 12:52 10/27/21 13:28 10/27/21 14:47 Temperature 99.7 F H Temperature Source Oral Pulse Rate 76 70 Respiratory Rate 16 14 Respiratory Effort Normal Non-Labored Respiratory Pattern Normal Blood Pressure 148/47 H 129/56 H Blood Pressure Mean 80 80 Pulse Ox 100 98 Oxygen Delivery Method Room Air Room Air Positive well nourished and well developed General Appearance ED: well developed HEENT Reports moist mucous membranes Negative for trauma Eyes PERRL and EOMs intact bilaterally Neck supple and no JVD General: Negative for tenderness Chest Wall inspection of chest normal Resp normal respiratory effort and clear to auscultation bilaterally Cardio regular rate, regular rhythm and no murmurs Rate: other Other Details: Triphasic dopplerable right DP and PT pulses. Biphasic dopplerable left DP and PT pulses GI normal to inspection, nondistended, normoactive bowel sounds Palpation: soft Back/Spine no CVA tenderness Extremity normal to inspection Extremity Narrative: 3+ bilateral pitting pedal edema General Extremety ED: Yes edema; Negative for tenderness General Extremity: edema Neuro oriented x3 and no sensory deficits noted Neuro Narrative: Patient has 5 out of 5 strength with dorsi and plantarflexion of the feet. Her NIH score is 0. She does not have any drift of the lower extremities but she does seem weak with flexion of her bilateral hips. Sensorium / Orientation: alert Psych mental status grossly normal Skin no rashes or lesions noted and no wounds MDM MDM MDM Narrative Medical decision making narrative: Patient evaluated for sudden onset of weakness to her lower extremities. She also had a short episode of chest pain. Patient has multiple comorbidities including peripheral vascular disease, renal disease and CHF. Patient is hemodynamically stable in the ER. CBC is remarkable for hemoglobin 11.1. This is near her baseline. Potassium is mildly low today at 3.2. Creatinine is 3.17. Potassium is 3.2. Urinalysis is concerning with infection positive nitrite, 100 leukoesterase, 10-25 white blood cells and 2+ bacteria. Urine culture sent. Patient started on Keflex and given first dose the emergency room. She is given 1 dose of 20 mEq oral potassium for her hypokalemia. CT of the brain does not show any acute process and chest x-ray does not show any acute process. High since he troponin is normal. Patient does have peripheral pulses he does not have significant lower extremity pain. I do not think this is an acute arterial occlusion of her lower extremities causing the weakness. She does not have any focal neurologic deficits on exam I do not think this is a stroke. She does not have any signs or symptoms consistent with cauda equina syndrome. Patient be discharged home as she is able to ambulates in the ER and seems to be back to her baseline. She is given strict return precautions. Patient and are amenable to trialing outpatient treatment of UTI and returning if she has increased weakness or any new/worsening symptoms. Lab Data Attestation: I reviewed the patient's lab results. Labs: Laboratory Results - last 24 hr 10/27/21 10/27/21 10/27/21 13:45 13:45 14:40 WBC 6.3 RBC 3.50 L Hgb 11.1 L Hct 33.7 L MCV 96.3 MCH 31.7 MCHC 32.9 RDW Std Deviation 51.9 H RDW Coeff of Arvind 15.1 H Plt Count 199 MPV 9.3 Immature Gran % (Auto) 1.000 H Neut % (Auto) 74.0 H Lymph % (Auto) 13.8 L [place] % (Auto) 9.2 Eos % (Auto) 1.4 Baso % (Auto) 0.6 Absolute Neuts (auto) 4.7 Absolute Lymphs (auto) 0.87 Nucleated RBC % 0.3 Sodium 138 Potassium 3.2 L Chloride 100 Carbon Dioxide 30.0 Anion Gap 8 BUN 38 H Creatinine 3.17 H Estim Creat Clear Calc 12.03 Est GFR (MDRD) Af Amer 19 L Est GFR (MDRD) Non-Af 15 L BUN/Creatinine Ratio 12.0 Glucose 104 Calcium 9.4 Total Bilirubin 0.60 AST 19 ALT 25 Alkaline Phosphatase 87 Troponin I High Sens 9 Total Protein 7.6 Albumin 3.3 Globulin 4.3 H Albumin/Globulin Ratio 0.8 L Urine Color Yellow Urine Clarity Sl. Cloudy Urine pH 5.0 Ur Specific [place] 1.015 Urine Protein 15 H Urine Glucose (UA) Normal Urine Ketones Negative Urine Occult Blood 10 H Urine Nitrite Positive H Urine Bilirubin Negative Urine Urobilinogen Normal Ur Leukocyte Esterase 100 H Urine RBC 0-5 SEEN Urine WBC 10-25 SEEN Ur Squamous Epith Cells 0-5 SEEN Urine Bacteria 2+ Urine Mucus 0 SEEN Radiography Chest X-Ray - ED: 1 View, Read by ED Physician, Read by Radiologist and No Acute Disease Diagnostic Testing: Clinical Impression(s) from Imaging Studies Brain CT 10/27/21 13:25 IMPRESSION: Chronic involutional changes of the brain. Electronically Signed: Abel Eason MD at 14:27 EST , Chest X-Ray 10/27/21 13:25 IMPRESSION: No acute abnormality is seen. Electronically Signed: Abel Eason MD at 14:22 EST , Rhythm Strip Rhythm Strip: Sinus Rhythm Rate: 75 Ectopy: None EKG Initial EKG: Attestation: I personally reviewed and interpreted this EKG as follows: Interpretation: Sinus Rhythm Comments: Normal sinus rhythm rate of 75 Normal axis Normal intervals Normal ST segments Discharge Plan Triage Chief Complaint: Fatigue ED Provider: Erin Brizuela Dx/Rx/DC Orders Clinical Impression: Complaints of leg weakness, Chest pain, Acute UTI Instructions: ED Chest Pain, Uncertain Cause, ED CYSTITIS Female Adult, ED Weakness (Uncertain Cause) Prescriptions: No Action clopidogrel 75 mg tablet 75 mg PO DAILY RF: 0 nitroglycerin 0.4 MG tablet 0.4 mg SUBLINGUAL Q5M PRN (Reason: Chest Pain) RF: 0 aspirin 81 MG tablet 81 mg PO DAILYCM RF: 0 hydroxyzine HCl 25 MG tablet 25 mg PO Q6H PRN PRN (Reason: Itching) RF: 0 rosuvastatin 20 MG tablet 20 mg PO DAILY RF: 0 omeprazole 40 MG capsule,delayed release(DR/EC) 40 mg PO BID RF: 0 furosemide 40 mg tablet 40 mg PO DAILY RF: 0 levetiracetam [Keppra] 500 mg tablet 500 mg PO BID RF: 0 potassium chloride 10 mEq tablet extended release 10 meq PO DAILY RF: 0 amlodipine 5 mg tablet 5 mg PO DAILY RF: 0 temazepam 30 mg capsule 30 mg PO DAILY RF: 0 calcitriol 0.5 mcg capsule 0.5 mcg PO DAILY RF: 0 montelukast 10 mg tablet 10 mg PO DAILY RF: 0 pyridoxine (vitamin B6) [Vitamin B-6] 100 mg Tablet 100 mg PO DAILY RF: 0 levothyroxine 50 mcg tablet 50 mcg PO DAILY RF: 0 gabapentin 300 mg capsule 300 mg PO TID RF: 0 metoprolol succinate 25 mg tablet extended release 24 hr 25 mg PO DAILY RF: 0 ranolazine 500 mg tablet extended release 12 hr 500 mg PO BID RF: 0 Primary Care Provider: Rigoberto Maher Referrals: Rigoberto Maher MD [Primary Care Provider] - Activity Restrictions/Additional Instructions: Your GFR today is 15. Your potassium was mildly low at 3.2. You have been given an extra potassium pill in the ER. Please continue to take the 10 mEq of potassium daily that you have prescribed. Follow-up with your primary care doctor later this week for repeat evaluation. Disposition Disposition: Home, Self Care
[2021-10-27 13:54] LABS: Absolute Lymphocyte Count 0.87 X10^3/uL (0.83-4.51); Absolute Neutrophil Count 4.7 X10^3/uL (2.0-7.7); Basophil# 0.04 X10^3/uL; Basophil% 0.6 % (0-1); Eosinophil# 0.09 X10^3/uL; Eosinophils% 1.4 % (0-5); Hematocrit 33.7 % (37-47); Hemoglobin 11.1 g/dL (12.0-15.0); Lymphocyte # 0.87 X10^3/ul (0.83-4.51); Lymphocyte % 13.8 % (19-41); Mean Corp Hgb Conc 32.9 g/dL (32-36); Mean Corpuscular Hgb 31.7 pg (27.0-32.0); Mean Corpuscular Volume 96.3 fL (81-99); Mean Platelet Vol. 9.3 fl (6.2-12.0); Monocyte# 0.58 X10^3/uL; Monocyte% 9.2 % (0-10); NRBC Flagged by Analyzer 0.3 % (0-5); Neutrophil # 4.67 X10^3/uL (2.7-7.7); Platelet Count 199 K/mm3 (150-450); RBC Distribution Width CV 15.1 % (11.6-14.6); RBC Distribution Width SD 51.9 fl (35.1-43.9); White Blood Count 6.3 K/mm3 (4.4-11.0)
[2021-10-27 14:08] LABS: ALB/GLOB Ratio 0.8 RATIO (0.9-2.4); AST(SGOT) 19 U/L (15-37); Alanine Aminotransfer ALT/SGPT 25 U/L (13-56); Albumin, Serum 3.3 g/dL (3.2-5.0); Alkaline Phosphatase 87 U/L (45-117); Anion Gap 8 (5-15); BUN 38 mg/dL (7-18); Calcium,Total 9.4 mg/dL (8.5-10.1); Chloride 100 mmol/L (98-107); Creatinine, Serum 3.17 mg/dL (0.55-1.02); EST Glomerular Filtration Rate 15 mL/min (>60); Est Glom Filt Rate - Afr Amer 19 mL/min (>60); Estimated Creatinine Clearance 12.03 ml/min; Globulin 4.3 g/dL (2.2-4.2); Glucose 104 mg/dL (74-106); Potassium 3.2 mmol/L (3.5-5.1); Protein, Total 7.6 g/dL (6.4-8.2); Sodium Level 138 mmol/L (136-145); Troponin-I HS 9 pg/mL (3.0-54.0)
[2021-10-27 14:44] LABS: Mucous, Urine 0 SEEN /hpf (<or=2+)
[2021-10-27 14:47] VITALS: BP 129/56; PULSE 70; RESP 14; O2SAT 98
[2021-10-27 14:52] LABS: Color, Urine Yellow (Yellow); Glucose, Dipstick Normal (Normal); Ketone-Dipstick Negative (Negative); Leukocyte Esterase-Dipstick 100 /ul (Negative); Nitrite-Dipstick Positive (Negative); Occult Blood-Urine 10 /ul (Negative); Protein-Dipstick 15 mg/dl (Negative); Specific Gravity, Urine 1.015 (1.002-1.030); Urine Bilirubin Dipstick Negative (Negative); Urine Clarity Sl. Cloudy (Clear); Urine Urobilinogen Normal (Normal)
[2021-10-27 15:00] LABS: Bacteria 2+ /hpf (None Seen); Red Blood Cells-Urine 0-5 SEEN /hpf (0-5); Squamous Epithelial Cells - UA 0-5 SEEN /hpf (5-10); White Blood Cells 10-25 SEEN /hpf (0-5)
[2021-10-27] MEDS: Cephalexin 250 MG Capsule 500 MG PO (15:42)
[2021-10-27] MEDS: Potassium Chloride Oral Tablet 20 MEQ PO (15:42)
== END 2021-10-27 15:54 | disposition home or self-care (01) ==
PROVIDERS: Emergency Provider Emergency Medicine; PCP Family Medicine; Visit Provider Emergency Medicine
DX: N39.0 Urinary tract infection, site not specified (principal); M06.9 Rheumatoid arthritis, unspecified; I11.0 Hypertensive heart disease with heart failure; I50.9 Heart failure, unspecified; I73.9 Peripheral vascular disease, unspecified; G40.909 Epilepsy, unspecified, not intractable, without status epilepticus; R07.9 Chest pain, unspecified; E87.6 Hypokalemia; R29.898 Other symptoms and signs involving the musculoskeletal system; I25.10 Atherosclerotic heart disease of native coronary artery without angina pectoris; G62.9 Polyneuropathy, unspecified; E78.5 Hyperlipidemia, unspecified; Z87.891 Personal history of nicotine dependence; E78.00 Pure hypercholesterolemia, unspecified; Z79.82 Long term (current) use of aspirin; Z79.899 Other long term (current) drug therapy; N28.9 Disorder of kidney and ureter, unspecified; Z86.718 Personal history of other venous thrombosis and embolism; K21.9 Gastro-esophageal reflux disease without esophagitis; I34.0 Nonrheumatic mitral (valve) insufficiency; J45.909 Unspecified asthma, uncomplicated; I25.2 Old myocardial infarction; Z95.5 Presence of coronary angioplasty implant and graft
CPT/HCPCS: 36415; 70450; 71045; 80053; 81001; 84484; 85025; 87077; 87086; 87088; 87186; 87804; 93005; 99285; J7050; A4216

== ENCOUNTER 2022-01-01 06:45 | Day surgery (SDC) | payer MEDICARE, OTHER, SELFPAY ==
[2022-01-01] VITALS (7 sets, daily range): BP systolic 111–133; BP diastolic 51–62; PULSE 71–76; RESP 16–18; TEMP 36.1–37.3; O2SAT 97–100
--- NOTE | 2022-01-01 06:52 | HP.PCM_ITS ---
History and Physical Date of Admission: 01/01/22 Intake Visit Reasons: RE-CHECK FISTULA Chief Complaint: recheck fistula/H&P for stage II Packing [employer] Final [employer] Supervisor Required: No Is patient in pain?: No Allergies colesevelam HCl [From WelChol] Allergy (Verified 12/09/21 12:36) Unknown metolazone [From Zaroxolyn] Allergy (Verified 12/09/21 12:36) Unknown nitrofurantoin macrocrystalline [From Macrodantin] Allergy (Verified 12/09/21 12:36) Unknown Penicillins Allergy (Verified 12/09/21 12:36) Unknown pravastatin sodium [From Pravachol] Allergy (Verified 12/09/21 12:36) Unknown tramadol Adverse Reaction (Verified 12/09/21 12:36) Nausea Medications nitroglycerin 0.4 mg SUBLINGUAL Q5M PRN 06/19/15 [History Confirmed 12/09/21] aspirin 81 mg PO DAILYCM tablet 11/05/17 [Rx Confirmed 12/09/21] hydroxyzine HCl 25 mg PO Q6H PRN PRN 02/10/19 [History Confirmed 12/09/21] rosuvastatin 20 mg PO DAILY 02/10/19 [History Confirmed 12/09/21] omeprazole 40 mg PO BID 04/11/19 [History Confirmed 12/09/21] clopidogrel 75 mg tablet 75 mg PO DAILY tab 10/10/21 [History Confirmed 12/09/21] amlodipine 5 mg PO DAILY 10/17/21 [History Confirmed 12/09/21] calcitriol 0.5 mcg PO DAILY 10/17/21 [History Confirmed 12/09/21] furosemide 40 mg PO DAILY 10/17/21 [History Confirmed 12/09/21] levetiracetam [Keppra] 500 mg PO BID 10/17/21 [History Confirmed 12/09/21] montelukast 10 mg PO DAILY 10/17/21 [History Confirmed 12/09/21] potassium chloride 10 meq PO DAILY 10/17/21 [History Confirmed 12/09/21] pyridoxine (vitamin B6) [Vitamin B-6] 100 mg PO DAILY 10/17/21 [History Confirmed 12/09/21] temazepam 30 mg PO DAILY 10/17/21 [History Confirmed 12/09/21] gabapentin 300 mg PO TID 10/27/21 [History Confirmed 12/09/21] levothyroxine 50 mcg PO DAILY 10/27/21 [History Confirmed 12/09/21] metoprolol succinate 25 mg PO DAILY 10/27/21 [History Confirmed 12/09/21] ranolazine 500 mg PO BID 10/27/21 [History Confirmed 12/09/21] Is last menstrual period known: No Post menopausal: Yes Patient : No PFSH Medical History ANDRIY (acute kidney injury) Arthritis Asthma Atherosclerotic heart disease of [place] coronary artery without angina pectoris Back pain [place] esophagus Cardiology follow-up encounter Cellulitis Cellulitis of right lower extremity Congestive heart failure (CHF) Dietary restriction Foot drop, left Former smoker Gastric reflux High cholesterol History of DVT (deep vein thrombosis) History of echocardiogram History of edema History of heart attack History of IBS History of pain when walking History of renal disease History of stress test Hyperlipidemia Hypertension Lumbar disc disease Lumbar radiculopathy Nonrheumatic mitral valve regurgitation PAD (peripheral artery disease) Peripheral neuropathy Renal insufficiency Rheumatoid arthritis Seizures Shortness of breath on exertion Spinal stenosis of lumbar region Thyroid disease Ulcer of left lower extremity with fat layer exposed Ulcer of right lower extremity with fat layer exposed Urinary retention Walker as ambulation aid Wears dentures Wears glasses Surgical History History of arteriovenostomy for renal dialysis (~09/2021) History of bunionectomy of left great toe History of cardiac catheterization History of carpal tunnel surgery History of hysterectomy History of laminectomy Hx of appendectomy Postsurgical percutaneous transluminal coronary angioplasty (PTCA) status Presence of stent in coronary artery Status post insertion of iliac artery stent Family History Father Heart disease Mother Myocardial infarction, Onset Age: 50 CAD (coronary artery disease) Brother Diabetes Social History Smoking Status: Former smoker alcohol intake: never substance use type: does not use HPI HPI HPI: MARCOS SHELTON, is a 71 F who presents to the office today for chronic renal failure stage 4. Dr. Cheatham performed a stage I left upper extremity basilic vein to brachial artery arteriovenous hemodialysis fistula creation on 10/21/21. Patient returns for a follow-up visit. She is not currently on dialysis. She notes her previous elbow discomfort has completely resolved. 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 She denies hospitalizations or illnesses since her last office visit with our office. She denies current chest pain, shortness of breath. She is currently maintained on Plavix for cardiac stent. ROS General General: Yes weight change and appetite; No fatigue, colon cancer, breast cancer or weakness HEENT HEENT: Yes eye surgery; No difficulty swallowing, eye injury, swollen glands or hoarseness Endo Endocrine: Yes thyroid disease; No diabetes mellitus, thyroid cancer, Hair loss, heat intolerance or cold intolerance Musc Musculoskeletal: Yes back problems, arthritis and rheumatoid arthritis; No gout or joint pain Cardio Cardiovascular: Yes murmur, heart disease, high blood pressure, heart attack and heart stent; No pacemaker, atrial fibrillation, palpitations, shortness of breat with exertion or chest pain Psych Psychiatric: No depression, anxiety or hearing voices Resp Respiratory: Yes shortness of breath, No sleep apnea, No cough, No COPD, Yes asthma, No emphysema and No wheezing Gastro Gastrointestinal: No abdominal pain, Yes nausea or vomiting, No diarrhea, No c onstipation, No blood in stool, Yes acid reflux, No hemorrhoids, No ulcers, No gallbladder problem and No black,tarry stools Arnoldo Hematologic: Yes blood thinners, No blood disorders, No bleeding, Yes anemia and No blood clots Neuro Neurologic: No weakness Exam Const General: cooperative, healthy appearing, comfortable and no acute distress [facility] Head: normal to inspection Eyes General: appearance normal, both eyes and all related structures Neck Neck: normal visual inspection Neck mass: No Resp Effort & Inspection: normal respiratory effort Auscultation: clear to auscultation bilaterally Cardio Rate: regular rate Rhythm: regular rhythm GI Inspection: normal to inspection Palpation: soft Auscultation: normal bowel sounds Skin General: dry skin Neuro General: no focal motor deficits and CN's II-XI intact bilaterally Extrem Other: Left upper extremity- good pulse, bruit and thrill. Fistula feels deep. Incision nicely healed. Psych Appearance: grossly normal Affect: normal affect Assessment and Plan Assessment and Plan (1) Chronic renal failure, stage 4 (severe): Status: Chronic Plan - Angella SANDERS PAJean-PierreC: Dr. Cheatham will plan to perform a stage II transposition left upper extremity brachiobasilic arteriovenous fistula creation. Procedure details, risks and benefits have been explained. Patient and her have had the opportunity to ask and have questions answered. Patient will need to hold her Plavix for 2 days prior to the procedure. Patient verbally understands and agrees with the proposed plan. I have re-examined the patient. There are no clinical changes since date of exam. Donell Cheatham M.D., F.A.C.S.
[2022-01-01] MEDS: 0.9% Normal Saline 1,000 ML 15 ML IV (07:25)
[2022-01-01 07:44] LABS: Potassium 3.5 mmol/L (3.5-5.1)
--- NOTE | 2022-01-01 07:45 | EX.PCM.DISCH ---
Discharge Instructions Procedure General Surgery Diet Discharge Diet: Light diet - advance as tolerated (if you have questions about your diet instructions, please talk to you doctor.) Activity Discharge Activity: May Not Drive (for 3-5 days or while taking narcotic pain medicine.) May shower in (days): 1 Lifting Restrictions: 10 pounds Dressing / Incision Call your doctor if your incision/area has: Continuous Slow Oozing, Sudden Increased Bleeding, Increased Pain/ Swelling, Increased Redness and Foul Smelling Discharge Call your doctor if you observe: Fever of 101 or Higher Suture Line Care: Avoid Pulling/Pushing and Avoid Pinching/Bending Follow Up Care Please Follow Up With: Donell Cheatham MD Test Results: Elevate your left arm for comfort. You may utilize ice to assist with swelling. Continue to exercise with your stress ball If the dressings stay clean and intact please leave them in place for approximately 4 days. Please call for an office appointment for 1 week from now. [phone] Discharge Plan Admission Attending Provider: Donell Cheatham Primary Care Provider: Rigoberto Maher Discharge Orders/Prescriptions Prescriptions: No Action clopidogrel 75 mg tablet 75 mg PO DAILY RF: 0 nitroglycerin 0.4 MG tablet 0.4 mg SUBLINGUAL Q5M PRN (Reason: Chest Pain) RF: 0 aspirin 81 MG tablet 81 mg PO DAILYCM RF: 0 hydroxyzine HCl 25 MG tablet 25 mg PO Q6H PRN PRN (Reason: Itching) RF: 0 rosuvastatin 20 MG tablet 20 mg PO DAILY RF: 0 omeprazole 40 MG capsule,delayed release(DR/EC) 40 mg PO BID RF: 0 furosemide 40 mg tablet 40 mg PO DAILY RF: 0 levetiracetam [Keppra] 500 mg tablet 500 mg PO BID RF: 0 potassium chloride 10 mEq tablet extended release 10 meq PO TID RF: 0 amlodipine 5 mg tablet 5 mg PO DAILY RF: 0 temazepam 30 mg capsule 30 mg PO QHS RF: 0 calcitriol 0.5 mcg capsule 0.5 mcg PO DAILY RF: 0 montelukast 10 mg tablet 10 mg PO DAILY RF: 0 pyridoxine (vitamin B6) [Vitamin B-6] 100 mg Tablet 100 mg PO DAILY RF: 0 levothyroxine 50 mcg tablet 50 mcg PO DAILY RF: 0 metoprolol succinate 25 mg tablet extended release 24 hr 25 mg PO DAILY RF: 0 ranolazine 500 mg tablet extended release 12 hr 500 mg PO BID RF: 0
[2022-01-01] MEDS: Clindamycin 900 MG/50 ML BAG 75 MG IV (07:49)
[2022-01-01] MEDS: Heparin Injection (Vial) 5,000 UNIT/ML VIAL 5000 UNIT (10:06)
[2022-01-01] MEDS: Lidocaine 1% (20 ml mdv) 20 ML Vial (10:07)
[2022-01-01] MEDS: Bupivacaine Mpf 0.5% 30 ML VIAL (10:07)
--- NOTE | 2022-01-01 10:17 | PCM.OPRPT ---
Problems Associated Problem List Diagnoses (1) Chronic renal failure, stage 4 (severe): Report of Operation Date of Procedure: 01/01/22 Pre-Operative Diagnosis: Stage IV chronic renal insufficiency Post-Operative Diagnosis: Same Surgery/Procedure Performed:: Stage II transposition left upper arm basilic vein to brachial artery arteriovenous hemodialysis fistula creation Description of Surgical Findings:: Timeout informed consent was obtained. 71-year-old female was taken to the operating placed upon the table underwent monitored anesthesia care clindamycin 900 g given intravenously the left upper extremity was sterilely prepped and draped 35 cc of 0.5% Marcaine mixed 50-50 1% lidocaine was used as local anesthetic. Ultrasound was used to map the course of the vein local was instilled incision made along the volar aspect of the left upper arm tedious sharp and blunt dissection was used to harvest the matured basilic vein. Side branches secured with 3-0 Vicryl ligatures and hemoclips. Dissected the vein all the way up to the shoulder. It was of quite generous diameter. Measured the length ink marked the dorsal surface and then dissected free the brachial artery in the distal left upper arm. Circumferential dissection was performed Vesseloops were placed and good arterial flow was obtained. Then instilled local and used a curved tunneler. I ligated the vein at the antecubital area with 3-0 Vicryl suture. It was quite adherent at this area and I was not able to dissect it as far as I wanted to. This [place] hemostasis was intact then secured the vein and pulled it through the tunneler sure that it was in a good curvilinear position. The patient then received 8000 units of heparin. Peripheral vascular clamps were placed on the brachial artery vein was quite generous made 11 blade incision there brachial artery and then extended with Kunz scissors and then created a end-to-side anastomosis with a running 7-0 Prolene. I had to take up some of the vein due to its generous size. Anastomosis was completed there is good antegrade retrograde flow good flow within the fistula the hand was inspected is noted be viable 2+ radial pulse Doppler demonstrated triphasic flow at the left ulnar and radiates I then worked with the vein in the tunnel to assure that he had a nice curvilinear position. Initially wanted to kink when I brought the skin together sent worked with that to like that a nice curvilinear situation. Patient received 20 mg of protamine. The deep tissues were approximated with interrupted 3-0 Vicryl subdermal stitches. Skin edges approximated subicular 4-0 Monocryl. Steri-Strips Telfa soft roll Lauro wrap applied. Sponge and instrument and needle counts were reported the surgeon be correct. Specimens none. Drains none positive. Blood loss 150 cc. She tolerated procedure well was taken to the recovery room in satisfactory addition without apparent complication. Specimen none. Drains none. Blood loss 150 cc Donell Cheatham M.D., F.A.C.S. Surgeon: Donell Cheatham Type of Anesthesia: Local MAC Anesthesiologist: Zeeshan Gibson
== END 2022-01-01 11:58 | disposition home or self-care (01) ==
LOC: SDC 06:45 → AC 06:46
PROVIDERS: PCP Family Medicine; Referring Provider Surgery; Visit Provider Surgery
PROC: (CPT 36819; principal; 2022-01-01 09:15)
DX: Z49.01 Encounter for fitting and adjustment of extracorporeal dialysis catheter (principal); M06.9 Rheumatoid arthritis, unspecified; I13.0 Hypertensive heart and chronic kidney disease with heart failure and stage 1 through stage 4 chronic kidney disease, or unspecified chronic kidney disease; I50.9 Heart failure, unspecified; N18.4 Chronic kidney disease, stage 4 (severe); I73.9 Peripheral vascular disease, unspecified; E78.5 Hyperlipidemia, unspecified; E07.9 Disorder of thyroid, unspecified; I25.10 Atherosclerotic heart disease of native coronary artery without angina pectoris; J45.909 Unspecified asthma, uncomplicated; K21.9 Gastro-esophageal reflux disease without esophagitis; I25.2 Old myocardial infarction; G62.9 Polyneuropathy, unspecified; Z79.899 Other long term (current) drug therapy; Z79.02 Long term (current) use of antithrombotics/antiplatelets; Z79.82 Long term (current) use of aspirin; Z79.890 Hormone replacement therapy; Z87.891 Personal history of nicotine dependence; Z86.718 Personal history of other venous thrombosis and embolism
CPT/HCPCS: 36819; 01844; 84132; 87426; C9803; J7030; J2405

== ENCOUNTER 2022-01-19 12:49 | Emergency (ER) | payer MEDICARE, OTHER, SELFPAY ==
[2022-01-19 12:50] VITALS: BP 124/53; PULSE 87; RESP 16; TEMP 37.1; O2SAT 97; BMI 31.9
--- NOTE | 2022-01-19 13:08 | CT_ITS ---
STUDY: CT CERVICAL SPINE WITHOUT CONTRAST REASON FOR EXAM: Female, 71 years old. Headache after a fall RADIATION DOSAGE (If Supplied By Facility): CTDIvol = ( 24.72 ) mGy, DLP = ( 467.37 ) mGycm TECHNIQUE: High resolution transaxial imaging was performed without contrast material. Sagittal and coronal images were reconstructed. Individualized dose optimization techniques were used for this CT. COMPARISON: None FINDINGS: Normal craniovertebral junction. There are degenerative changes of the anterior atlantoaxial articulation. Normal odontoid process. There is straightening of the normal cervical lordosis. Normal vertebral bodies and posterior osseous elements. Previous anterior cervical fusion between C5 and C6. Hardware is intact and free of complication C2-3: Normal endplates. Mild disc space narrowing.. Normal central canal and intervertebral neuroforamina. C3-4: Normal endplates. Mild disc space narrowing.. Normal central canal and intervertebral neuroforamina. C4-5: Normal endplates. Mild disc space narrowing.. Normal central canal and intervertebral neuroforamina. C5-6: Sclerotic endplate changes with disc space narrowing. No central canal stenosis, mild bilateral foraminal narrowing due to facet joint hypertrophy. C6-7: Sclerotic endplate changes with disc space narrowing. No central canal stenosis, mild bilateral foraminal narrowing due to facet joint hypertrophy. C7-T1: Normal endplates. Disc space narrowing.. Normal central canal and intervertebral neuroforamina. Soft tissues show peripheral calcifications in the carotid artery bulbs, lung apices are clear. CT/Spine Cervical without Contras IMPRESSION: Normal unenhanced CT examination of the cervical spine. Electronically Signed: Osbaldo Vizcaino MD at 14:21 EDT ,
--- NOTE | 2022-01-19 13:08 | CT_ITS ---
STUDY: CT BRAIN WITHOUT CONTRAST REASON FOR EXAM: Female, 71 years old. Headache after a fall RADIATION DOSAGE (If Supplied By Facility): CTDIvol = ( 44.99 ) mGy, DLP = ( 796.11 ) mGycm TECHNIQUE: Transaxial CT imaging of the brain was performed without administration of intravenous contrast material. Individualized dose optimization techniques were used for this CT. COMPARISON: No relevant priors. FINDINGS: Left frontal scalp hematoma without associated skull fracture. Normal size ventricles and extra-axial spaces for the patient''s age. Normal white matter tracts of the cerebral hemispheres. Normal basal ganglia and thalami. Normal brainstem. Normal cerebellum. There is no intracranial hemorrhage. There are no findings of an acute ischemic infarction. Normal visualized paranasal sinuses. CT/Brain/Head without Contrast IMPRESSION: No acute hemorrhage, midline shift or mass effect Left frontal scalp hematoma Electronically Signed: Osbaldo Vizcaino MD at 13:57 EDT ,
--- NOTE | 2022-01-19 13:11 | EDS_ITS ---
HPI History of Present Illness Chief Complaint: Laceration Detail of Chief Complaint: Fall Informant: patient Onset/Context/Timing Onset: Today Current Severity: Mild Maximum Severity: Mild Narrative Narrative: Patient presents after mechanical fall. She fell forward hitting her face and her left arm. She has multiple lacerations over her forehead. She denies loss of consciousness. She is on Plavix but no other thinners. She had a fistula placed to her left upper extremity about a month ago that she states has continued to have some oozing of blood since being placed. [facility] Medical History ANDRIY (acute kidney injury) Arthritis Asthma Atherosclerotic heart disease of [place] coronary artery without angina pectoris Back pain [place] esophagus Cardiology follow-up encounter Cellulitis Cellulitis of right lower extremity Congestive heart failure (CHF) Dietary restriction Foot drop, left Former smoker Gastric reflux High cholesterol History of DVT (deep vein thrombosis) History of echocardiogram History of edema History of heart attack History of IBS History of pain when walking History of renal disease History of stress test Hyperlipidemia Hypertension Lumbar disc disease Lumbar radiculopathy Nonrheumatic mitral valve regurgitation PAD (peripheral artery disease) Peripheral neuropathy Renal insufficiency Rheumatoid arthritis Seizures Shortness of breath on exertion Spinal stenosis of lumbar region Thyroid disease Ulcer of left lower extremity with fat layer exposed Ulcer of right lower extremity with fat layer exposed Urinary retention Walker as ambulation aid Wears dentures Wears glasses Home Medications nitroglycerin 0.4 mg SUBLINGUAL Q5M PRN 06/19/15 [History Last Taken Unknown] aspirin 81 mg PO DAILYCM tablet 11/05/17 [Rx Last Taken 10/27/21] hydroxyzine HCl 25 mg PO Q6H PRN PRN 02/10/19 [History Last Taken 03/08/19 1230] rosuvastatin 20 mg PO DAILY 02/10/19 [History Last Taken 10/26/21] omeprazole 40 mg PO BID 04/11/19 [History Last Taken 01/01/22 06:00] clopidogrel 75 mg tablet 75 mg PO DAILY tab 10/10/21 [History Last Taken 10/27/21] amlodipine 5 mg PO DAILY 10/17/21 [History Last Taken 01/01/22 06:00] calcitriol 0.5 mcg PO DAILY 10/17/21 [History Last Taken 10/26/21] furosemide 40 mg PO DAILY 10/17/21 [History Last Taken 10/27/21] levetiracetam [Keppra] 500 mg PO BID 10/17/21 [History Last Taken 01/01/22 0 6:00] montelukast 10 mg PO DAILY 10/17/21 [History Last Taken 10/26/21] potassium chloride 40 meq PO DAILY 10/17/21 [History Last Taken 10/27/21] pyridoxine (vitamin B6) [Vitamin B-6] 100 mg PO DAILY 10/17/21 [History Last Taken 10/27/21] temazepam 30 mg PO QHS 10/17/21 [History Last Taken 10/26/21] levothyroxine 50 mcg PO DAILY 10/27/21 [History Last Taken 01/01/22 06:00] metoprolol succinate 25 mg PO DAILY 10/27/21 [History Last Taken 01/01/22 06:00] ranolazine 500 mg PO BID 10/27/21 [History Last Taken 01/01/22 06:00] hydrocodone-acetaminophen 1 tab PO Q8H PRN 2 Days #8 tab 01/01/22 [Rx Last Taken Unknown] Allergy/AdvReac Type Severity Reaction Status Date / Time colesevelam HCl Allergy Unknown Verified 01/19/22 12:52 [From WelChol] metolazone [From Zaroxolyn] Allergy Unknown Verified 01/19/22 12:52 nitrofurantoin Allergy Unknown Verified 01/19/22 12:52 macrocrystalline [From Macrodantin] Penicillins Allergy Unknown Verified 01/19/22 12:52 pravastatin sodium Allergy Unknown Verified 01/19/22 12:52 [From Pravachol] tramadol AdvReac Nausea Verified 01/19/22 12:52 Family History Father Heart disease Mother Myocardial infarction, Onset Age: 50 CAD (coronary artery disease) Brother Diabetes Surgical History History of arteriovenostomy for renal dialysis (~12/2021) History of bunionectomy of left great toe History of cardiac catheterization History of carpal tunnel surgery History of hysterectomy History of laminectomy Hx of appendectomy Postsurgical percutaneous transluminal coronary angioplasty (PTCA) status Presence of stent in coronary artery Status post insertion of iliac artery stent Social History Smoking Status: Former smoker alcohol intake: never substance use type: does not use ROS ROS ED Constitutional Constitutional ED: Denies chills or fever(s) Eyes Eyes: Denies change in vision ENT ENT ED: Denies sore throat Cardiovascular Cardiovascular: Denies chest pain Respiratory/Chest Respiratory/Chest: Denies cough or dyspnea Gastrointestinal Gastrointestinal: Denies abdominal pain, nausea or vomiting Musculoskeletal Musculoskeletal: Reports neck pain; Denies back pain Integumentary Reports Abrasions and other Details: Lacerations to forehead ; Denies rash Neurologic Neurologic: Denies headache(s) or weakness Allergic/Immunologic Allergic/Immunologic ED: Denies urticaria EXAM Physical Exam Const Vital Signs: 01/19/22 12:50 01/19/22 13:04 Temperature 98.8 F Temperature Source Temporal Pulse Rate 87 Respiratory Rate 16 Respiratory Effort Normal Non-Labored Respiratory Depth Normal Respiratory Pattern Normal Blood Pressure 124/53 H Blood Pressure Mean 76 Pulse Ox 97 Oxygen Delivery Method Room Air Positive well nourished and well developed General Appearance ED: well developed HEENT HEENT Narrative: 6 cm laceration horizontally across the forehead. There is a 3 cm vertical laceration noted. There is a 2 cm skin tear to the left forehead. Eyes PERRL and EOMs intact bilaterally Neck full ROM Neck Narrative: No C-spine tenderness. Chest Wall inspection of chest normal and palpation of chest normal Resp normal respiratory effort and clear to auscultation bilaterally Cardio regular rhythm Rate: regular rate GI normal to inspection, nondistended, normoactive bowel sounds and non-tender Palpation: soft Extremity Extremity Narrative: 8 x 4 cm skin tear noted to the left distal thigh. No bony tenderness. Neuro oriented x3 Sensorium / Orientation: alert PROC Procedures Lacerations Forehead lacerations: Length: 3.54 in Depth: Sub Q Comment: 9 cm total repaired. 5 cc 1% lidocaine infused locally. Wound cleansed and irrigated. A total of 18 sutures placed with 5-0 nylon. Patient tolerated procedure well. Wound care instructions discussed. MDM MDM MDM Narrative Medical decision making narrative: Patient sent for CT scan of the head and C- spine. Tetanus update provided. Radiography Diagnostic Testing: Clinical Impression(s) from Imaging Studies Brain CT 01/19/22 13:08 IMPRESSION: No acute hemorrhage, midline shift or mass effect Left frontal scalp hematoma Electronically Signed: Osbaldo Vizcaino MD at 13:57 EDT , Cervical Spine CT 01/19/22 13:08 IMPRESSION: Normal unenhanced CT examination of the cervical spine. Electronically Signed: Osbaldo Vizcaino MD at 14:21 EDT , Treatment and Re-Evaluation Narrative: CT scans reveal frontal scalp hematoma but no other acute findings. Forehead lacerations repaired. Please see procedure note. Patient have sutures removed in 5 days. Wound care instructions provided. Discharge Plan Triage Chief Complaint: Laceration ED Provider: Stacey Walton Dx/Rx/DC Orders Clinical Impression: Fall, Face lacerations, Avulsion of skin Instructions: ED Laceration: All Closures Prescriptions: No Action clopidogrel 75 mg tablet 75 mg PO DAILY RF: 0 nitroglycerin 0.4 MG tablet 0.4 mg SUBLINGUAL Q5M PRN (Reason: Chest Pain) RF: 0 aspirin 81 MG tablet 81 mg PO DAILYCM RF: 0 hydroxyzine HCl 25 MG tablet 25 mg PO Q6H PRN PRN (Reason: Itching) RF: 0 rosuvastatin 20 MG tablet 20 mg PO DAILY RF: 0 omeprazole 40 MG capsule,delayed release(DR/EC) 40 mg PO BID RF: 0 furosemide 40 mg tablet 40 mg PO DAILY RF: 0 levetiracetam [Keppra] 500 mg tablet 500 mg PO BID RF: 0 potassium chloride 10 mEq tablet extended release 40 meq PO DAILY RF: 0 amlodipine 5 mg tablet 5 mg PO DAILY RF: 0 temazepam 30 mg capsule 30 mg PO QHS RF: 0 calcitriol 0.5 mcg capsule 0.5 mcg PO DAILY RF: 0 montelukast 10 mg tablet 10 mg PO DAILY RF: 0 pyridoxine (vitamin B6) [Vitamin B-6] 100 mg Tablet 100 mg PO DAILY RF: 0 levothyroxine 50 mcg tablet 50 mcg PO DAILY RF: 0 metoprolol succinate 25 mg tablet extended release 24 hr 25 mg PO DAILY RF: 0 ranolazine 500 mg tablet extended release 12 hr 500 mg PO BID RF: 0 hydrocodone-acetaminophen 5-325 mg tablet 1 tab PO Q8H PRN (Reason: pain) 2 Days Qty: 8 RF: 0 Primary Care Provider: Rigoberto Maher Referrals: Rigoberto Maher MD [Primary Care Provider] - 5 Days for suture removal Disposition Disposition: Home, Self Care
[2022-01-19] MEDS: Diphth,Pertuss(Acell),Tet Vac 0.5 ML Vial IM (13:52)
[2022-01-19] MEDS: Lidocaine 1% (20 ml mdv) 20 ML Vial INFILT (13:52)
== END 2022-01-19 14:58 | disposition home or self-care (01) ==
PROVIDERS: Emergency Provider Emergency Medicine; PCP Family Medicine; Visit Provider Emergency Medicine
DX: S01.81XA Laceration without foreign body of other part of head, initial encounter (principal); M06.9 Rheumatoid arthritis, unspecified; I11.0 Hypertensive heart disease with heart failure; I50.9 Heart failure, unspecified; I73.9 Peripheral vascular disease, unspecified; G40.909 Epilepsy, unspecified, not intractable, without status epilepticus; W19.XXXA Unspecified fall, initial encounter; K21.9 Gastro-esophageal reflux disease without esophagitis; E78.00 Pure hypercholesterolemia, unspecified; I25.10 Atherosclerotic heart disease of native coronary artery without angina pectoris; J45.909 Unspecified asthma, uncomplicated; M48.061 Spinal stenosis, lumbar region without neurogenic claudication; G62.9 Polyneuropathy, unspecified; I25.2 Old myocardial infarction; I34.0 Nonrheumatic mitral (valve) insufficiency; Z86.718 Personal history of other venous thrombosis and embolism; M51.16 Intervertebral disc disorders with radiculopathy, lumbar region; E07.9 Disorder of thyroid, unspecified; Z79.82 Long term (current) use of aspirin; Z79.899 Other long term (current) drug therapy; Z95.5 Presence of coronary angioplasty implant and graft; S71.112A Laceration without foreign body, left thigh, initial encounter; Z87.891 Personal history of nicotine dependence; Z23 Encounter for immunization; Z79.02 Long term (current) use of antithrombotics/antiplatelets
CPT/HCPCS: 12015; 70450; 72125; 90715; 99283

== ENCOUNTER → 2022-03-18 | Outpatient (CLI) | payer MEDICARE, OTHER, SELFPAY ==
[2022-03-18 11:17] LABS: Hemoglobin 9.4 g/dL (12.0-15.0); Mean Corp Hgb Conc 34.8 g/dL (32-36); Mean Corpuscular Hgb 31.9 pg (27.0-32.0); Mean Corpuscular Volume 91.5 fL (81-99); Mean Platelet Vol. 9.3 fl (6.2-12.0); Platelet Count 216 K/mm3 (150-450); RBC Distribution Width CV 13.6 % (11.6-14.6); RBC Distribution Width SD 45.5 fl (35.1-43.9); Red Blood Count 2.95 M/mm3 (4.2-5.4); White Blood Count 10.1 K/mm3 (4.4-11.0)
[2022-03-18 11:49] LABS: Anion Gap 9 (5-15); BUN 47 mg/dL (7-18); BUN/Creat Ratio 14.7 RATIO (10-20); Calcium,Total 9.7 mg/dL (8.5-10.1); Chloride 80 mmol/L (98-107); Creatinine, Serum 3.19 mg/dL (0.55-1.02); EST Glomerular Filtration Rate 15 mL/min (>60); Est Glom Filt Rate - Afr Amer 19 mL/min (>60); Glucose 158 mg/dL (74-106); Potassium 2.4 mmol/L (3.5-5.1); Sodium Level 125 mmol/L (136-145)
[2022-03-21 10:01] LABS: Potassium 2.5 mmol/L (3.5-5.1)
[2022-03-23 06:19] VITALS: BP 102/44; PULSE 59; RESP 18; TEMP 36.3; O2SAT 99; BMI 31.4
[2022-03-23 06:25] LABS: Magnesium 2.5 mg/dL (1.6-2.6); Potassium 2.7 mmol/L (3.5-5.1)
--- NOTE | 2022-03-23 06:34 | EKG12_ITS ---
Test Reason : PREOP Blood Pressure : / mmHG Vent. Rate : 059 BPM Atrial Rate : 059 BPM P-R Int : 178 ms QRS Dur : 088 ms QT Int : 520 ms P-R-T Axes : 023 021 015 degrees QTc Int : 514 ms Sinus bradycardia Incomplete right bundle branch block Confirmed by MICHELL JAMES, MAMADOU ([id number]), newspaper or periodical editor KIARA CONSTANTINO ([id number]) on 03/25/2022 12:50:26 PM Referred By: Donell Cheatham Confirmed By:MAMADOU GALARZA MD
[2022-03-23] MEDS: Potassium Chloride Oral Tablet 20 MEQ 40 MEQ PO (06:52)
--- NOTE | 2022-03-23 07:24 | SUR.PREOP ---
THIS NURSE TALKED TO DR BILLY AND HE SAID THAT PATIENT IS TO FOLLOW UP WITH NEPHROLOGY TO GET HER POTASSIUM BACK TO NORMAL PRIOR TO RESCHEDULING ANOTHER SURGERY. PATIENT MADE AWARE BY THIS NURSE. HER CENTRAL LINE WAS FLUSHED, BUT THE WHITE LINE WAS DIFFICULT TO FLUSH ON DISCONTINUE. PATIENT USES HEPARIN DAILY AND STATES SHE WILL FLUSH IT WHEN SHE GETS HOME.
== END | disposition home or self-care (01) ==
LOC: AC 03-23 05:30 → PAT 04-10 08:03
PROVIDERS: PCP Family Medicine; Referring Provider Surgery; Visit Provider Surgery
DX: Z01.818 Encounter for other preprocedural examination (principal); R00.1 Bradycardia, unspecified
CPT/HCPCS: 36415; 80048; 83735; 84132; 85027; 93005; J7040; J7120; A4216

== ENCOUNTER 2022-03-20 13:55 | Outpatient (CLI) | payer MEDICARE, OTHER, SELFPAY | END 2022-03-20 23:59 | disposition home or self-care (01) | LOC: LAB 13:57 | PROVIDERS: PCP Family Medicine; Visit Provider Surgery | DX: E87.6 Hypokalemia (principal) | CPT/HCPCS: 36415 ==

== ENCOUNTER → 2022-04-02 | Outpatient (CLI) | payer MEDICARE, OTHER, SELFPAY ==
--- NOTE | 2022-04-02 08:36 | AAVD_ITS ---
Reason For Study: Aortoiliac occlusive disease Aorta Measurements Aorta Doppler Measurements Proximal aorta measures1.31 x 1.31cm. in cross- Peak systolic flow velocities within the proximal sectional axis. aorta measure 65.8 cm/sec. Proximal aorta measures1.30cm. in longitudinal Peak systolic flow velocities within the mid aorta axis. measure 118 cm/sec. Mid aorta measures1.16 x 1.18cm. in cross- Peak systolic flow velocities within the distal sectional axis. aorta measure 88.8 cm/sec. Mid aorta measures1.19cm. in longitudinal axis. Distal aorta measures1.38 x 1.36cm. in cross- sectional axis. Distal aorta measures1.36cm. in longitudinal axis. Left Iliac Artery Left iliac artery measures 0.70 x 0.76 cm. in the cross-sectional axis. Left iliac artery measures 0.74 cm. in the longitudinal axis. Peak systolic velocity in the left iliac artery measures 202.5 cm/sec. Right Iliac Artery Right iliac artery measures 0.81 x 0.78 cm. in the cross-sectional axis. Right iliac artery measures 0.79 cm. in the longitudinal axis. Peak systolic velocity in the right iliac artery measures 141.8 cm/sec. Procedure Aorta IVC Iliac vasculature or bypass grafts [id number]. Exam performed in department. VL/Abd Aortic/IVC Duplex scan Interpretation Summary No evidence of aortic iliac stenosis or aneurysm visualized. Ordering Physician: Alden Hernández Referring Physician: Rigoberto Maher Performed By: Maddy Shipman RVT
--- NOTE | 2022-04-02 08:37 | ART_ITS ---
Reason For Study: Atherosclerosis Procedure A bilateral lower extremity continuous wave Doppler with analog waveform analysis and ankle brachial indexes. Left Segmental Pressures Left brachial= 162mmHg. Left posterior tibial artery = >254mmHg. Left dorsalis pedis artery = >254mmHg. Left digit = 81 mmHg. The left dorsalis pedis waveforms are biphasic. The left posterior tibial artery waveforms are biphasic. Right Segmental Pressures Right brachial= 166mmHg. Right posterior tibial artery = >254mmHg. Right dorsalis pedis artery = >254mmHg. The right dorsalis pedis waveforms are triphasic. The right posterior tibial artery waveforms are triphasic. Indices The right ankle brachial index by the dorsalis pedis is NC. The right ankle brachial index by the posterior tibial artery is NC. The right digital-brachial index is 0.63. The left ankle brachial index by the dorsalis pedis is NC. The left ankle brachial index by the posterior tibial artery is NC. The left digital-brachial index is 0.49. VL/Ankle Brachial Index Interpretation Summary Right lower extremity with noncompressibility noted at the ankle but triphasic flow noted. Left lower extremity noncompressibility also at the ankle but decreased waveform and biphasic flow noted, may have mild to moderate occlusive disease and further evaluation is clinicall y warranted. Digit brachial index of 0.63 and 0.49. Ordering Physician: Alden Hernández Referring Physician: Rigoberto Maher Performed By: Maddy Shipman RVT
== END | disposition home or self-care (01) ==
LOC: CVS 08:34
PROVIDERS: PCP Family Medicine; Referring Provider Surgery Vascular Surgery; Visit Provider Surgery Vascular Surgery
DX: I74.09 Other arterial embolism and thrombosis of abdominal aorta (principal); I70.213 Atherosclerosis of native arteries of extremities with intermittent claudication, bilateral legs
CPT/HCPCS: 93922; 93978

== ENCOUNTER 2022-06-16 05:11 | Day surgery (SDC) | payer MEDICARE, OTHER, SELFPAY ==
[2022-05-15 13:42] LABS: Hemoglobin 8.4 g/dL (12.0-15.0); Mean Corp Hgb Conc 32.3 g/dL (32-36); Mean Corpuscular Hgb 31.3 pg (27.0-32.0); Mean Platelet Vol. 9.3 fl (6.2-12.0); Platelet Count 214 K/mm3 (150-450); RBC Distribution Width CV 15.9 % (11.6-14.6); RBC Distribution Width SD 54.5 fl (35.1-43.9); Red Blood Count 2.68 M/mm3 (4.2-5.4); White Blood Count 7.8 K/mm3 (4.4-11.0)
[2022-05-15 14:00] LABS: Partial Thromboplast Time 33.2 Seconds (24.1-36.2)
[2022-05-15 14:04] LABS: Anion Gap 6 (5-15); BUN 8 mg/dL (7-18); BUN/Creat Ratio 4.5 RATIO (10-20); Calcium,Total 9.2 mg/dL (8.5-10.1); Chloride 99 mmol/L (98-107); Creatinine, Serum 1.77 mg/dL (0.55-1.02); EST Glomerular Filtration Rate 30 mL/min (>60); Est Glom Filt Rate - Afr Amer 37 mL/min (>60); Glucose 122 mg/dL (74-106); Potassium 3.9 mmol/L (3.5-5.1); Sodium Level 136 mmol/L (136-145)
[2022-06-15 15:53] LABS: Hematocrit 34.1 % (37-47); Hemoglobin 11.2 g/dL (12.0-15.0); Mean Corp Hgb Conc 32.8 g/dL (32-36); Mean Corpuscular Hgb 31.9 pg (27.0-32.0); Mean Corpuscular Volume 97.2 fL (81-99); Mean Platelet Vol. 9.2 fl (6.2-12.0); Platelet Count 257 K/mm3 (150-450); RBC Distribution Width CV 15.6 % (11.6-14.6); RBC Distribution Width SD 55.7 fl (35.1-43.9); Red Blood Count 3.51 M/mm3 (4.2-5.4); White Blood Count 6.7 K/mm3 (4.4-11.0)
[2022-06-15 16:27] LABS: Anion Gap 8 (5-15); BUN 18 mg/dL (7-18); Calcium,Total 9.3 mg/dL (8.5-10.1); Chloride 103 mmol/L (98-107); Creatinine, Serum 3.01 mg/dL (0.55-1.02); EST Glomerular Filtration Rate 16 mL/min (>60); Est Glom Filt Rate - Afr Amer 20 mL/min (>60); Glucose 138 mg/dL (74-106); Potassium 4.4 mmol/L (3.5-5.1); Sodium Level 138 mmol/L (136-145)
[2022-06-16] VITALS (8 sets, daily range): BP systolic 108–146; BP diastolic 58–81; PULSE 55–76; RESP 16; TEMP 35.9–36.4; O2SAT 92–100; BMI 29.5
--- NOTE | 2022-06-16 06:08 | PCM.HP.BLA ---
History and Physical Date of Admission: 06/16/22 This is 1 of many attempted operation date for this patient. Most recently a couple weeks ago she was scheduled showed up and had ceased to take her clopidogrel also was fully anticoagulated. Patient states that she stopped her clopidogrel approximately 5 days ago. She denies any acute current health issues. She and her have had an opportunity to ask and have questions answered Visit Reasons:?F/U Check Fistula Chief Complaint: Discuss fistula placement Veneer Clipper Required: No Accompanied by: Is patient in pain?: No Allergies colesevelam HCl [From WelChol] Allergy (Verified 03/23/22 06:17) Unknownmetolazone [From Zaroxolyn] Allergy (Verified 03/23/22 06:17) Unknownnitrofurantoin macrocrystalline [From Macrodantin] Allergy (Verified 03/23/22 06:17) UnknownPenicillins Allergy (Verified 03/23/22 06:17) Unknownpravastatin sodium [From Pravachol] Allergy (Verified 03/23/22 06:17) Unknowntramadol Adverse Reaction (Verified 03/23/22 06:17) Nausea Medications nitroglycerin 0.4 mg sublingual tablet 0.4 mg sublingual Q5M PRN Chest Pain 06/19/15 [History Confirmed 04/30/22] aspirin 81 mg tablet,delayed release 81 mg PO DAILYCM 11/05/17 [Rx Confirmed 04/30/22] hydroxyzine HCl 25 mg tablet 25 mg PO Q6H PRN PRN Itching 02/10/19 [History Confirmed 04/30/22] rosuvastatin 20 mg tablet 20 mg PO DAILY cholesterol 02/10/19 [History Confirmed 04/30/22] omeprazole 40 mg capsule,delayed release 40 mg PO BID GERD 04/11/19 [History Confirmed 04/30/22] clopidogrel 75 mg tablet 75 mg PO DAILY 10/10/21 [History Confirmed 04/30/22] calcitriol 0.5 mcg capsule 0.5 mcg PO DAILY 10/17/21 [History Confirmed 04/30/22] furosemide 40 mg tablet 40 mg PO DAILY 10/17/21 [History Confirmed 04/30/22] levetiracetam 500 mg tablet (Keppra) 500 mg PO BID 10/17/21 [History Confirmed 04/30/22] montelukast 10 mg tablet 10 mg PO DAILY 10/17/21 [History Confirmed 04/30/22] potassium chloride 10 mEq tablet,extended release 40 meq PO DAILY 10/17/21 [History Confirmed 04/30/22] pyridoxine (vitamin B6) 100 mg tablet (Vitamin B-6) 100 mg PO DAILY 10/17/21 [History Confirmed 04/30/22] temazepam 30 mg capsule 30 mg PO QHS 10/17/21 [History Confirmed 04/30/22] levothyroxine 50 mcg tablet 50 mcg PO DAILY thyroid 10/27/21 [History Confirmed 04/30/22] metoprolol succinate 25 mg tablet,extended release 24 hr 25 mg PO DAILY heart 10/27/21 [History Confirmed 04/30/22] ranolazine 500 mg tablet,extended release,12 hr 500 mg PO BID heart 10/27/21 [History Confirmed 04/30/22] amlodipine 5 mg tablet 2.5 mg PO DAILY 03/04/22 [History Confirmed 04/30/22] metolazone 2.5 mg tablet 2.5 mg PO DAILY 03/04/22 [History Confirmed 04/30/22] magnesium oxide 200 mg PO BID #6 tabs 03/21/22 [Rx Confirmed 04/30/22] [facility] Medical History? ANDRIY (acute kidney injury) Anemia Arthritis Asthma Atherosclerotic heart disease of [place] coronary artery without angina pectoris Back pain Casiano esophagus Cardiology follow-up encounter Cellulitis Cellulitis of right lower extremity Congestive heart failure (CHF) Dietary restriction Foot drop, left Former smoker Gastric reflux High cholesterol History of DVT (deep vein thrombosis) History of echocardiogram History of edema History of heart attack History of IBS History of pain when walking History of renal disease History of stress test Hyperlipidemia Hypertension Lumbar disc disease Lumbar radiculopathy Nonrheumatic mitral valve regurgitation PAD (peripheral artery disease) Peripheral neuropathy Renal insufficiency Rheumatoid arthritis Seizures Shortness of breath on exertion Spinal stenosis of lumbar region Thyroid disease Ulcer of left lower extremity with fat layer exposed Ulcer of right lower extremity with fat layer exposed Urinary retention 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 History of arteriovenostomy for renal dialysis (~12/2021) History of bunionectomy of left great toe History of cardiac catheterization History of carpal tunnel surgery History of hysterectomy History of laminectomy Hx of appendectomy Postsurgical percutaneous transluminal coronary angioplasty (PTCA) status Presence of stent in coronary artery Status post insertion of iliac artery stent Family History? Father Heart diseaseMother Myocardial infarction,? Onset Age: 50 CAD (coronary artery disease)Brother Diabetes Social History? Smoking Status:? Former smoker alcohol intake:? never substance use type:? does not use HPI HPI Surgical H&P: Yes HPI: Patient is a 71 y/o F I am following for chronic renal failure. Patient has recently been hospitalized at the beginning of March for renal failure. Dr. Reed placed a left chest tunneled dialysis catheter and patient started dialysis M,W and F on April 22 at [facility] in [place]. Patient notes Dr. Reed attempted to place the catheter on the right chest however there was a clot noted. She continues to be maintained on aspirin and Plavix. Patient has completely healed from her previous fistula creation and emergent tying off of the fistula of the left upper extremity. Patient had her PICC line removed mid February at [facility]. Patient's previous history per Dr. Cheatham: MARCOS SHELTON, is a 71 F who presents to the office today for surgical discussion regarding recreation of arteriovenous hemodialysis fistula. Patient returns for follow-up evaluation of her left upper extremity.? She dehisced her incision and involves the fistula of her brachial artery by falling.? She is on clopidogrel which increased her risk for bleeding.? She returns now for follow-up.? She was treated at [facility].? She has a PICC line in her left IJ apparently to be removed in radiology at [facility] on March 12, 2022.? The patient's is flushing it with saline and then heparinized saline every day.? The patient's not had any abdominal surgery.? All of her previous operations have been back operations.? Fortunately she is currently denying any specific problems with her left upper extremity.? She is known to have poor radial arterial flow.? Preoperatively October 2021 her left upper arm basilic vein on imaging was very small.? It is of note though that at the time of transposition the vein had matured nicely. Previous note per Angella Philip February 04, 2022 Patient is a 71 y/o F I am following for chronic renal failure stage IV. She is not currently on dialysis. She returns for a follow-up. She has had some bleeding from her incision site which we have been following. I believed the bleeding to be from a hematoma and failure of the Monocryl suture. There was not significant bleeding ever when she would come to the office. Patient is maintained on Plavix. Since her last visit she had fallen and had to go to the ED where she had sutures placed in her forehead. She unfortunately also fell onto her left side including her arm. on , patient's arm has dehisced and has increased in size. Patient was taken back to the procedure room for further evaluation with Dr. Cheatham. Open wound was injected with lidocaine and multiple hematomas were removed. Incision had tunneled superiorly. Wet to dry packing was completed and patient's was showed how to perform the packing changes. Patient was to follow-up on Wednesday with Dr. Cheatham. Patient returns today. She noted on Tuesday 01/23, the day after the office procedure, she had bleeding from the wound of the left upper extremity. She presented to [place] and was transferred to [facility] in [place]. Patient stated her fistula was infected and she was taken to surgery. She noted being evaluated by vascular surgery however they did not want to operate at that time. She noted she was started on dialysis for a short course. She states the dialysis catheter was removed and she did not need to continue dialysis. Patient noted later in the week she had so much bleeding from the open wound that it pooled onto the floor and soaked through a pillow. She then was taken to surgery to have an exploration of the left upper extremity hematoma with ligation of left brachiocephalic arteriovenous fistula and repair of left brachial artery. She was discharged from [facility] on 02/02. She presents today for a follow-up visit. She notes minimal amount of pain. She notes home health has been coming into her home to change the dressing My previous note of October 2021 reflects the following HPI: MARCOS SHELTON, is a 71 F who presents to the office today for surgical consultation regarding creation of arteriovenous hemodialysis fistula.? The patient is referred by Dr Cookie Currie and a written copy of my surgical consult and recommendations will return to him.? On March 05, 2022 at [facility] the patient had bilateral upper extremity vein mapping.? This demonstrates that bilateral upper extremity cephalic and basilic veins are quite small throughout. The patient is right arm dominant.? She has not any previous fistulas.? She states that over the years she has had multiple hospitalizations.? Apparently at least 5 different back operations with problems with infections.? She likely has had multiple superficial IVs. We have found information from a [facility] discharge summary dated April 25, 2021.? She had a an NSTEMI.? She had an echocardiogram showing ejection fraction of 55 to 60%.? A small membranous VSD was noted.? Mild stenosis of the aortic valve and mild stenosis of the mitral valve. The patient underwent a cardiac catheterization.? Patient was noted to have a prior stent involving the RCA with mild in-stent stenosis.? The stent involving the distal LCx was felt to be patent.? The patient has had clopidogrel therapy added to her aspirin therapy. ROS General General: Yes weight change and appetite; No fatigue, colon cancer, breast cancer or weakness HEENT HEENT: Yes eye surgery; No difficulty swallowing, eye injury, swollen glands or hoarseness Endo Endocrine: Yes thyroid disease; No diabetes mellitus, thyroid cancer, Hair loss, heat intolerance or cold intolerance Skin Skin: No rash or changing moles Musc Musculoskeletal: Yes back problems, arthritis and rheumatoid arthritis; No gout or joint pain Cardio Cardiovascular: Yes murmur, heart disease, high blood pressure, heart attack and heart stent; No pacemaker, atrial fibrillation, palpitations, shortness of breat with exertion or chest pain Psych Psychiatric: No depression, anxiety or hearing voices Resp Respiratory: Yes shortness of breath, No sleep apnea, No cough, No COPD, Yes asthma, No emphysema and No wheezing Gastro Gastrointestinal: No abdominal pain, Yes nausea or vomiting, No diarrhea, No constipation, No blood in stool, Yes acid reflux, No hemorrhoids, No ulcers, No gallbladder problem and No black,tarry stools Arnoldo Hematologic: Yes blood thinners, No blood disorders, No bleeding, Yes anemia and No blood clots Neuro Neurologic: No system reviewed and no additional complaints, except as documented, No as per HPI, No abnormal gait, No abnormal hearing, No abnormal movements, No abnormal speech, No behavioral changes, No burning sensations, No confusion, No convulsions, No disequilibrium, No dizziness, No localized weakness, No frequent falls, No headache(s), No lack of coordination, No loss of vision, No memory loss, No numbness, No other visual disturbances, No radicular pain, No restless legs, No sensory deficit, No syncope, No tingling, No tremor(s), No weakness and No other Exam Const General: cooperative, comfortable and no acute distress Other: Sitting in a wheelchair [facility] Head: normal to inspection Eyes General: appearance normal, both eyes and all related structures Neck Neck: normal visual inspection Neck mass: No Chest Chest palpation & inspection: normal inspection of the chest Other: Left chest tunneled dialysis catheter noted Resp Effort & Inspection: normal respiratory effort and able to speak in complete sentences Auscultation: clear to auscultation bilaterally Cardio Rate: regular rate Rhythm: regular rhythm GI Inspection: normal to inspection Palpation: soft Auscultation: normal bowel sounds Musc Cervical Spine: normal cervical lordosis Skin General: no rashes or lesions noted Neuro General: no focal motor deficits and CN's II-XI intact bilaterally Extrem General: normal to inspection Psych Appearance: grossly normal Affect: normal affect Assessment and Plan Assessment and Plan (1) End stage renal disease on dialysis: ?Status:?Acute ?Plan: Dr. Cheatham will plan to perform a stage I right upper extremity brachial to basilic arteriovenous fistula creation. Procedure details, risks and benefits have been reviewed. Patient has had the opportunity to ask and have questions answered. Patient verbally understands and agrees with the plan. Patient will hold her Plavix 3 days prior to the procedure. She may continue her aspirin This time she has successfully held her clopidogrel therapy. She is aware of the plan for right extremity straight to 1 brachial basilic arteriovenous fistula creation. We will proceed as noted. No other changes identified. Donell Cheatham M.D., F.A.C.S.
--- NOTE | 2022-06-16 07:12 | EX.PCM.DISCH ---
Discharge Instructions Procedure Fistula Diet Discharge Diet: Renal Diet Activity Discharge Activity: May Not Drive (for 2-3 days or while taking narcotic pain medications.), May Shower and May Take a Tub Bath (in 5 days.) Lifting Restrictions: 5 pounds Keep extremity elevated above heart level: - (Keep arm elevated above the heart level for 3 days.) Dressing / Incision Call your doctor if your incision/area has: Continuous Slow Oozing, Sudden Increased Bleeding (apply pressure and call your doctor.), Increased Pain/ Swelling, Increased Redness and Foul Smelling Discharge Call your doctor if you observe: Fever of 101 or Higher Suture Line Care: Avoid Pulling/Pushing and Avoid Pinching/Bending Cleanse incision/area with: Keep Dressing Clean & Dry Additional Dressing/Incision Instructions:: Change or remove dressing in one day. May protect with a gauze bandaid. Follow Up Care Please Follow Up With: Donell Cheatham MD When: Call [phone] to make an appointment for suture removal and follow up in 1 week. Discharge Plan Admission Attending Provider: Donell Cheatham Primary Care Provider: Rigoberto Maher Consulting Providers: Mg Moore Discharge Orders/Prescriptions Prescriptions: No Action clopidogrel 75 mg tablet 75 mg PO DAILY nitroglycerin 0.4 MG tablet 0.4 mg SUBLINGUAL Q5M PRN (Reason: Chest Pain) Label Comments: chest pain aspirin 81 MG tablet 81 mg PO DAILYCM 0RF hydroxyzine HCl 25 MG tablet 25 mg PO Q6H PRN PRN (Reason: Itching) Label Comments: take 1 tablet by mouth every 6 hours if needed rosuvastatin 20 MG tablet 20 mg PO DAILY Label Comments: take 1 tablet by mouth once daily omeprazole 40 MG capsule,delayed release(DR/EC) 40 mg PO BID furosemide 40 mg tablet 40 mg PO DAILY levetiracetam [Keppra] 500 mg tablet 500 mg PO BID Label Comments: take 1 tablet by mouth twice a day potassium chloride 10 mEq tablet extended release 20 meq PO DAILY Label Comments: take 1 tablet by mouth once daily temazepam 30 mg capsule 30 mg PO QHS Label Comments: take 1 capsule by mouth at bedtime montelukast 10 mg tablet 10 mg PO DAILY pyridoxine (vitamin B6) [Vitamin B-6] 100 mg Tablet 100 mg PO DAILY levothyroxine 50 mcg tablet 50 mcg PO DAILY Label Comments: take 1 tablet by mouth once daily metoprolol succinate 25 mg tablet extended release 24 hr 25 mg PO DAILY Label Comments: take 1/2 tablet by mouth once daily ranolazine 500 mg tablet extended release 12 hr 500 mg PO BID Label Comments: take 1 tablet by mouth twice a day Referrals / Follow Up: Rigoberto Maher MD [Primary Care Provider] - Disposition Disposition (needs filled in before D/C Order can be placed): Home, Self Care
[2022-06-16] MEDS: Clindamycin 900 MG/50 ML BAG 75 MG IV (07:36)
[2022-06-16] MEDS: Lidocaine 1% (30 ml sdv) 30 ML Vial (08:51)
[2022-06-16] MEDS: Heparin Injection (Vial) 5,000 UNIT/ML VIAL 5000 UNIT (08:51)
[2022-06-16] MEDS: Bupivacaine 0.25% 30 ML Vial (08:52)
--- NOTE | 2022-06-16 09:00 | OP.PCM_ITS ---
Report of Operation Date of Procedure: 06/16/22 Pre-Operative Diagnosis: Stage V chronic renal insufficiency Post-Operative Diagnosis: Same Surgery/Procedure Performed:: Right upper extremity stage I brachial to high takeoff of the radial artery arteriovenous fistula creation Description of Surgical Findings:: Timeout informed consent was obtained. 72-year-old female was taken to the operating room placed upon the table underwent monitored anesthesia care clindamycin 900 g given intravenously clean procedure the right extremity sterilely prepped and draped 1% lidocaine mixed 50-50 with 0.5% Marcaine was used as a local anesthetic a total of 8 cc was used. Ultrasound had been used to identify the basilic vein which was very small in caliber. Local was instilled a slightly oblique incision was made in the distal right upper arm s harp and blunt dissection was used to identify the basilic vein side branch was identified and then sharp and blunt dissection was used to identify what was apparently a high takeoff of the radial artery. Ulnar artery appeared to be nicely intact. The patient received 5000 units of heparin. The vein was ligated distally at a branch point with hemoclips that was spatulated. Peripheral vascular clamps were placed on the radial artery. 5000 units of heparin had been given. 11 blade was used to make an arteriotomy which was extended with Kunz scissors. A end-to-side venous to arterial anastomosis created with a running 7-0 Prolene. Prior to completion there is good antegrade flow anastomosis was completed Doppler demonstrated good flow in the basilic vein. There was poor flow at the wrist of the right radial artery but absolutely wonderful flow at the right ulnar artery. The hand was pink and viable. The wound was closed with a deep layer of interrupted 3-0 Vicryl and then runn ing subicular 4-0 Monocryl. Steri-Strips Telfa tape dressings applied. Sponge and instrument and needle counts were reported to the surgeon to be correct. Specimens none. Drains none. Blood loss minimal. The patient was taken to the recovery area in satisfactory addition without apparent complication Donell Cheatham M.D., F.A.C.S. Surgeon: Donell Cheatham Type of Anesthesia: Local MAC Anesthesiologist: Gee Fuentes
== END 2022-06-16 10:39 | disposition home or self-care (01) ==
LOC: SDC 05:11 → AC 05:13
PROVIDERS: Anesthesiology; PCP Family Medicine; Referring Provider Surgery; Visit Provider Surgery
PROC: (CPT 36821; principal; 2022-06-16 07:15)
DX: I13.2 Hypertensive heart and chronic kidney disease with heart failure and with stage 5 chronic kidney disease, or end stage renal disease (principal); Z99.2 Dependence on renal dialysis; N18.6 End stage renal disease; E78.00 Pure hypercholesterolemia, unspecified; M19.90 Unspecified osteoarthritis, unspecified site; J45.909 Unspecified asthma, uncomplicated; K21.9 Gastro-esophageal reflux disease without esophagitis; I25.2 Old myocardial infarction; Z79.02 Long term (current) use of antithrombotics/antiplatelets; Z79.82 Long term (current) use of aspirin; Z79.890 Hormone replacement therapy; Z79.899 Other long term (current) drug therapy; Z87.891 Personal history of nicotine dependence; Z95.5 Presence of coronary angioplasty implant and graft
CPT/HCPCS: 36821; 01844; 36415; 80048; 85027; 85730; J7040; J2405

== ENCOUNTER 2022-08-06 07:02 | Day surgery (SDC) | payer MEDICARE, OTHER, SELFPAY ==
[2022-07-31 16:42] LABS: Hematocrit 42.5 % (37-47); Hemoglobin 13.3 g/dL (12.0-15.0); Mean Corp Hgb Conc 31.3 g/dL (32-36); Mean Corpuscular Hgb 30.7 pg (27.0-32.0); Mean Corpuscular Volume 98.2 fL (81-99); Mean Platelet Vol. 9.2 fl (6.2-12.0); Platelet Count 291 K/mm3 (150-450); RBC Distribution Width CV 14.7 % (11.6-14.6); RBC Distribution Width SD 52.6 fl (35.1-43.9); Red Blood Count 4.33 M/mm3 (4.2-5.4); White Blood Count 6.9 K/mm3 (4.4-11.0)
[2022-07-31 17:15] LABS: Anion Gap 5 (5-15); BUN 17 mg/dL (7-18); BUN/Creat Ratio 7.1 RATIO (10-20); Calcium,Total 9.7 mg/dL (8.5-10.1); Chloride 99 mmol/L (98-107); EST Glomerular Filtration Rate 21 mL/min (>60); Est Glom Filt Rate - Afr Amer 26 mL/min (>60); Glucose 114 mg/dL (74-106); Potassium 4.7 mmol/L (3.5-5.1); Sodium Level 135 mmol/L (136-145)
[2022-08-06 08:07] VITALS: BP 120/39; PULSE 74; RESP 18; TEMP 36.3; O2SAT 99; BMI 29.5
[2022-08-06] MEDS: 0.9% Normal Saline 1,000 ML 15 ML IV (08:17)
--- NOTE | 2022-08-06 09:05 | PCM.HP.BLA ---
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 Is patient in pain?: No Allergies colesevelam HCl [From WelChol] Allergy (Verified 07/09/22 13:02) Unknownmetolazone [From Zaroxolyn] Allergy (Verified 07/09/22 13:02) Unknownnitrofurantoin macrocrystalline [From Macrodantin] Allergy (Verified 07/09/22 13:02) UnknownPenicillins Allergy (Verified 07/09/22 13:02) Unknownpravastatin sodium [From Pravachol] Allergy (Verified 07/09/22 13:02) Unknowntramadol Adverse Reaction (Verified 07/09/22 13:02) Nausea Medications nitroglycerin 0.4 mg sublingual tablet 0.4 mg sublingual Q5M PRN Chest Pain 06/19/15 [History Confirmed 07/09/22] aspirin 81 mg tablet,delayed release 81 mg PO DAILYCM 11/05/17 [Rx Confirmed 07/09/22] hydroxyzine HCl 25 mg tablet 25 mg PO Q6H PRN PRN Itching 02/10/19 [History Confirmed 07/09/22] rosuvastatin 20 mg tablet 20 mg PO DAILY cholesterol 02/10/19 [History Confirmed 07/09/22] omeprazole 40 mg capsule,delayed release 40 mg PO BID GERD 04/11/19 [History Confirmed 07/09/22] clopidogrel 75 mg tablet 75 mg PO DAILY 10/10/21 [History Confirmed 07/09/22] furosemide 40 mg tablet 40 mg PO DAILY 10/17/21 [History Confirmed 07/09/22] levetiracetam 500 mg tablet (Keppra) 500 mg PO BID 10/17/21 [History Confirmed 07/09/22] montelukast 10 mg tablet 10 mg PO DAILY 10/17/21 [History Confirmed 07/09/22] potassium chloride 10 mEq tablet,extended release 20 meq PO DAILY 10/17/21 [History Confirmed 07/09/22] pyridoxine (vitamin B6) 100 mg tablet (Vitamin B-6) 100 mg PO DAILY 10/17/21 [History Confirmed 07/09/22] temazepam 30 mg capsule 30 mg PO QHS 10/17/21 [History Confirmed 07/09/22] levothyroxine 50 mcg tablet 50 mcg PO DAILY thyroid 10/27/21 [History Confirmed 07/09/22] metoprolol succinate 25 mg tablet,extended release 24 hr 25 mg PO DAILY heart 10/27/21 [History Confirmed 07/09/22] ranolazine 500 mg tablet,extended release,12 hr 500 mg PO BID heart 10/27/21 [History Confirmed 07/09/22] PFSH Medical History? ANDRIY (acute kidney injury) Anemia Arthritis Asthma Atherosclerotic heart disease of [place] coronary artery without angina pectoris Back pain Casiano esophagus Cardiology follow-up encounter Cellulitis Cellulitis of right lower extremity Congestive heart failure (CHF) Dietary restriction Foot drop, left Former smoker Gastric reflux High cholesterol History of DVT (deep vein thrombosis) History of echocardiogram History of edema History of heart attack History of IBS History of pain when walking History of renal dialysis History of renal disease Hyperlipidemia Hypertension Lumbar disc disease Lumbar radiculopathy Nonrheumatic mitral valve regurgitation PAD (peripheral artery disease) Peripheral neuropathy Renal insufficiency Rheumatoid arthritis Seizures Shortness of breath on exertion Spinal stenosis of lumbar region Thyroid disease Ulcer of left lower extremity with fat layer exposed Ulcer of right lower extremity with fat layer exposed Urinary retention 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 History of arteriovenostomy for renal dialysis (~12/2021) History of bunionectomy of left great toe History of cardiac catheterization History of carpal tunnel surgery History of hysterectomy History of laminectomy Hx of appendectomy Postsurgical percutaneous transluminal coronary angioplasty (PTCA) status Presence of stent in coronary artery S/P arteriovenous (AV) fistula creation Status post insertion of iliac artery stent Family History? Father Heart diseaseMother Myocardial infarction,? Onset Age: 50 CAD (coronary artery disease)Brother Diabetes Social History? Smoking Status:? Former smoker alcohol intake:? never substance use type:? does not use HPI HPI Surgical H&P: Yes HPI: Patient is a 72 y/o F I am following for chronic renal failure stage V. Dr. Cheatham performed a stage I right upper extremity radial artery to basilic vein arteriovenous fistula creation on 06/16/22. Patient tolerated the procedure well. Patient notes very minimal amount of discomfort/pain at the incision site. Patient is currently on dialysis via tunneled dialysis catheters. ROS General General: Yes weight change and appetite; No fatigue, colon cancer, breast cancer or weakness HEENT HEENT: Yes eye surgery; No difficulty swallowing, eye injury, swollen glands or hoarseness Endo Endocrine: Yes thyroid disease; No diabetes mellitus, thyroid cancer, Hair loss, heat intolerance or cold intolerance Skin Skin: No rash or changing moles Musc Musculoskeletal: Yes back problems, arthritis and rheumatoid arthritis; No gout or joint pain Cardio Cardiovascular: Yes murmur, heart disease, high blood pressure, heart attack and heart stent; No pacemaker, atrial fibrillation, palpitations, shortness of breat with exertion or chest pain Psych Psychiatric: No depression, anxiety or hearing voices Resp Respiratory: Yes shortness of breath, No sleep apnea, No cough, No COPD, Yes asthma, No emphysema and No wheezing Gastro Gastrointestinal: No abdominal pain, Yes nausea or vomiting, No diarrhea, No constipation, No blood in stool, Yes acid reflux, No hemorrhoids, No ulcers, No gallbladder problem and No black,tarry stools Arnoldo Hematologic: Yes blood thinners, No blood disorders, No bleeding, Yes anemia and No blood clots Neuro Neurologic: No system reviewed and no additional complaints, except as documented, No as per HPI, No abnormal gait, No abnormal hearing, No abnormal movements, No abnormal speech, No behavioral changes, No burning sensations, No confusion, No convulsions, No disequilibrium, No dizziness, No localized weakness, No frequent falls, No headache(s), No lack of coordination, No loss of vision, No memory loss, No numbness, No other visual disturbances, No radicular pain, No restless legs, No sensory deficit, No syncope, No tingling, No tremor(s), No weakness and No other Exam Const General: cooperative, healthy appearing, comfortable and no acute distress [facility] Head: normal to inspection Eyes General: appearance normal, both eyes and all related structures Neck Neck: normal visual inspection Neck mass: No Resp Effort & Inspection: normal respiratory effort Auscultation: clear to auscultation bilaterally Cardio Rate: regular rate Rhythm: regular rhythm GI Inspection: normal to inspection Palpation: soft Auscultation: normal bowel sounds Musc Cervical Spine: normal cervical lordosis Skin General: no rashes or lesions noted Neuro General: no focal motor deficits and CN's II-XI intact bilaterally Extrem Other: right upper extremity AV fistula- good pulse, bruit and thrill. Psych Appearance: grossly normal Affect: normal affect Assessment and Plan Assessment and Plan (1) End stage renal disease: ?Status:?Acute ?Plan: Dr. Cheatham will plan to perform stage II transposition of right upper extremity radial artery to basilic vein arteriovenous fistula creation. Procedure details, risks and benefits have been explained. Patient has had the opportunity to ask and have questions answered. Patient verbally understands and agrees with the plan. Right upper extremity was inspected. There is a 2+ right radial pulse. Well-healed stage I transverse incision just proximal of the antecubital space. Palpable pulse thrill and bruit within the fistula. I performed ultrasound inspection of the fistula and it demonstrates a nicely maturing vein. She has had an opportunity ask and have questions answered. We will proceed with transposition right upper arm basilic vein to brachial artery arteriovenous hemodialysis fistula creation. Donell Cheatham M.D., F.A.C.S.
--- NOTE | 2022-08-06 09:05 | EX.PCM.DISCH ---
Discharge Instructions Procedure Fistula Diet Discharge Diet: Renal Diet Activity Discharge Activity: May Not Drive (for 2-3 days or while taking narcotic pain medications.), May Shower and May Take a Tub Bath (in 5 days.) Lifting Restrictions: 5 pounds Keep extremity elevated above heart level: - (Keep arm elevated above the heart level for 3 days.) Dressing / Incision Call your doctor if your incision/area has: Continuous Slow Oozing, Sudden Increased Bleeding (apply pressure and call your doctor.), Increased Pain/ Swelling, Increased Redness and Foul Smelling Discharge Call your doctor if you observe: Fever of 101 or Higher Suture Line Care: Avoid Pulling/Pushing and Avoid Pinching/Bending Cleanse incision/area with: Keep Dressing Clean & Dry Follow Up Care Please Follow Up With: Donell Cheatham MD When: Call [phone] to make an appointment for one week Test Results: You may leave the Lauro wrap in place to the right upper extremity for 2 to 3 days. Keep the area clean and dry. Elevate the right arm for comfort. You can apply ice to the upper arm as long as it does not get wet. Continued x-rays of the hand with a stress ball. Discharge Plan Admission Attending Provider: Donell Cheatham Primary Care Provider: Rigoberto Maher Discharge Orders/Prescriptions Prescriptions: No Action clopidogrel 75 mg tablet 75 mg PO DAILY nitroglycerin 0.4 MG tablet 0.4 mg SUBLINGUAL Q5M PRN (Reason: Chest Pain) Label Comments: chest pain aspirin 81 MG tablet 81 mg PO DAILYCM 0RF hydroxyzine HCl 25 MG tablet 25 mg PO Q6H PRN PRN (Reason: Itching) Label Comments: take 1 tablet by mouth every 6 hours if needed rosuvastatin 20 MG tablet 40 mg PO DAILY Label Comments: take 1 tablet by mouth once daily omeprazole 40 MG capsule,delayed release(DR/EC) 40 mg PO BID furosemide 40 mg tablet 40 mg PO DAILY levetiracetam [Keppra] 500 mg tablet 500 mg PO BID Label Comments: take 1 tablet by mouth twice a day potassium chloride 10 mEq tablet extended release 20 meq PO DAILY Label Comments: take 1 tablet by mouth once daily temazepam 30 mg capsule 30 mg PO QHS Label Comments: take 1 capsule by mouth at bedtime montelukast 10 mg tablet 10 mg PO DAILY pyridoxine (vitamin B6) [Vitamin B-6] 100 mg Tablet 100 mg PO DAILY levothyroxine 50 mcg tablet 75 mcg PO DAILY Label Comments: take 1 tablet by mouth once daily metoprolol succinate 25 mg tablet extended release 24 hr 25 mg PO DAILY Label Comments: take 1/2 tablet by mouth once daily ranolazine 500 mg tablet extended release 12 hr 500 mg PO BID Label Comments: take 1 tablet by mouth twice a day Referrals / Follow Up: Rigoberto Maher MD [Primary Care Provider] - Disposition Disposition (needs filled in before D/C Order can be placed): Home, Self Care
[2022-08-06] MEDS: Clindamycin 900 MG/50 ML BAG 75 MG IV (09:39)
[2022-08-06] MEDS: Lidocaine 0.5% (50 ml) 50 ML Vial (09:41)
[2022-08-06] MEDS: Heparin Injection (Vial) 5,000 UNIT/ML VIAL 5000 UNIT (09:41)
[2022-08-06] MEDS: Lidocaine 1% (30 ml sdv) 30 ML Vial (11:30)
[2022-08-06] MEDS: Bupivacaine Mpf 0.5% 30 ML VIAL (11:30)
--- NOTE | 2022-08-06 11:52 | PCM.OPRPT ---
Report of Operation Date of Procedure: 08/06/22 Pre-Operative Diagnosis: Need for arteriovenous hemodialysis access/history of stage I right upper extremity basilic to high takeoff brachial artery arteriovenous hemodialysis fistula Post-Operative Diagnosis: Successful stage II right upper extremity brachial to basilic arteriovenous hemodialysis fistula creation Surgery/Procedure Performed:: Stage II right upper extremity transposition basilic vein to brachial artery arteriovenous hemodialysis fistula creation Description of Surgical Findings:: Timeout informed consent was obtained. 72-year-old female was taken to the operating placed upon the table underwent general anesthesia the right upper extremity was copiously prepped and draped. She received 900 mg clindamycin. Throughout the procedure 1% lidocaine mixed 50-50 with 0.25% Marcaine was used as a local anesthetic. A total of 17 cc was used. Local was instilled ultrasound mapping had been performed incision was made in the distal right upper arm volar aspect and this incision was carried proximally tedious sharp and blunt dissection was used to identify the basilic vein was tediously dissected free side branches were cleared with 3-0 Vicryl ligatures and hemoclips were indicated dissected free all the way to the shoulder there appeared to be adequate length it appeared to be of adequate diameter I then identified the brachial artery and dissected that free in the distal upper arm and measured the length of the vein planned for tunneling and tunneled it more superficial to the skin and then the patient received 8000 units of heparin after adequate circulation time peripheral vascular clamps were placed on the brachial artery and a and venous to side arterial anastomosis was created with a running 7-0 Prolene very nice anastomosis was achieved there appeared to be good flow I assured her that as the skin edges were flat down there was a good curvilinear line of the fistula. The deep tissue was approximated with multiple interrupted 3-0 Vicryl sutures. Skin edges proximal and running subicular 4 Monocryl. Steri-Strips Telfa 4 x 4's ABDs soft roll Lauro wrap applied. Sponge and instrument and needle counts were reported to surgically correct. Specimens none. Drains none. Blood loss 20 cc. The hand appeared to be viable at the completion and had a palpable 1-2+ pulse the fingers were pink. Donell Cheatham M.D., F.A.C.S. Surgeon: Donell Cheatham Type of Anesthesia: General Anesthesiologist: Iva Jasso
[2022-08-06 12:15] VITALS: BP 120/39; BP 142/52; PULSE 66; RESP 16; TEMP 36.2; O2SAT 95
[2022-08-06 12:30] VITALS: BP 120/39; BP 130/40; PULSE 67; RESP 16; O2SAT 97
[2022-08-06 12:45] VITALS: BP 120/39; BP 140/50; PULSE 63; RESP 16; TEMP 36.3; O2SAT 98
[2022-08-06] MEDS: Acetaminophen 325 MG Tablet 650 MG PO (13:09)
[2022-08-06 13:13] VITALS: BP 120/39; BP 138/42; PULSE 64; RESP 18; TEMP 36.6; O2SAT 98
[2022-08-06 13:25] VITALS: BP 120/39
== END 2022-08-06 13:34 | disposition home or self-care (01) ==
LOC: SDC 07:04 → AC 07:04
PROVIDERS: PCP Family Medicine; Referring Provider Surgery; Visit Provider Surgery
PROC: (CPT 36819; principal; 2022-08-06 09:15)
DX: I12.0 Hypertensive chronic kidney disease with stage 5 chronic kidney disease or end stage renal disease (principal); Z99.2 Dependence on renal dialysis; N18.6 End stage renal disease; I73.9 Peripheral vascular disease, unspecified; R09.89 Other specified symptoms and signs involving the circulatory and respiratory systems; Z87.891 Personal history of nicotine dependence; I25.10 Atherosclerotic heart disease of native coronary artery without angina pectoris; E78.00 Pure hypercholesterolemia, unspecified; G62.9 Polyneuropathy, unspecified; I34.0 Nonrheumatic mitral (valve) insufficiency; Z86.718 Personal history of other venous thrombosis and embolism; I25.2 Old myocardial infarction; Z95.5 Presence of coronary angioplasty implant and graft
CPT/HCPCS: 36819; 01844; 36415; 80048; 85027; J7030; J2405

== ENCOUNTER → 2022-11-05 | Outpatient (CLI) | payer MEDICARE, OTHER, SELFPAY ==
[2022-11-05 09:50] LABS: Basophil# 0.05 X10^3/uL; Basophil% 0.8 % (0-1); Eosinophil# 0.19 X10^3/uL; Hemoglobin 11.7 g/dL (12.0-15.0); Lymphocyte % 23.5 % (19-41); Mean Corp Hgb Conc 31.6 g/dL (32-36); Mean Corpuscular Hgb 30.1 pg (27.0-32.0); Mean Corpuscular Volume 95.1 fL (81-99); Mean Platelet Vol. 9.2 fl (6.2-12.0); Monocyte# 0.59 X10^3/uL; Monocyte% 9.2 % (0-10); NRBC Flagged by Analyzer 0 % (0-5); Neutrophil # 4.03 X10^3/uL (2.7-7.7); Platelet Count 198 K/mm3 (150-450); RBC Distribution Width SD 52.7 fl (35.1-43.9); Red Blood Count 3.89 M/mm3 (4.2-5.4); White Blood Count 6.4 K/mm3 (4.4-11.0)
[2022-11-05 10:12] LABS: Anion Gap 6 (5-15); BUN 34 mg/dL (7-18); BUN/Creat Ratio 12.6 RATIO (10-20); Calcium,Total 9.6 mg/dL (8.5-10.1); Chloride 101 mmol/L (98-107); EST Glomerular Filtration Rate 19 mL/min (>60); Est Glom Filt Rate - Afr Amer 22 mL/min (>60); Glucose 91 mg/dL (74-106); Potassium 4.1 mmol/L (3.5-5.1); Sodium Level 136 mmol/L (136-145)
== END | disposition home or self-care (01) ==
LOC: PAVLAB 09:37
PROVIDERS: PCP Family Medicine; Referring Provider Physician Assistant; Visit Provider Physician Assistant
DX: T82.898A Other specified complication of vascular prosthetic devices, implants and grafts, initial encounter (principal)
CPT/HCPCS: 36415; 80048; 85025

== ENCOUNTER 2022-11-09 07:11 | Day surgery (SDC) | payer MEDICARE, OTHER, SELFPAY ==
[2022-11-06 07:15] VITALS: BMI 30.4
--- NOTE | 2022-11-09 08:32 | PCM.HP.BLA ---
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 Is patient in pain?: No Allergies colesevelam HCl [From WelChol] Allergy (Verified 11/05/22 09:09) Unknownmetolazone [From Zaroxolyn] Allergy (Verified 11/05/22 09:09) Unknownnitrofurantoin macrocrystalline [From Macrodantin] Allergy (Verified 11/05/22 09:09) UnknownPenicillins Allergy (Verified 11/05/22 09:09) Unknownpravastatin sodium [From Pravachol] Allergy (Verified 11/05/22 09:09) Unknowntramadol Adverse Reaction (Verified 11/05/22 09:09) Nausea Medications nitroglycerin 0.4 mg sublingual tablet 0.4 mg sublingual Q5M PRN Chest Pain 06/19/15 [History Confirmed 11/05/22] aspirin 81 mg tablet,delayed release 81 mg PO DAILYCM 11/05/17 [Rx Confirmed 11/05/22] hydroxyzine HCl 25 mg tablet 25 mg PO Q6H PRN PRN Itching 02/10/19 [History Confirmed 11/05/22] rosuvastatin 20 mg tablet 40 mg PO DAILY cholesterol 02/10/19 [History Confirmed 11/05/22] omeprazole 40 mg capsule,delayed release 40 mg PO BID GERD 04/11/19 [History Confirmed 11/05/22] clopidogrel 75 mg tablet 75 mg PO DAILY 10/10/21 [History Confirmed 11/05/22] furosemide 40 mg tablet 40 mg PO DAILY 10/17/21 [History Confirmed 11/05/22] levetiracetam 500 mg tablet (Keppra) 500 mg PO BID 10/17/21 [History Confirmed 11/05/22] montelukast 10 mg tablet 10 mg PO DAILY 10/17/21 [History Confirmed 11/05/22] potassium chloride 10 mEq tablet,extended release 20 meq PO DAILY 10/17/21 [History Confirmed 11/05/22] pyridoxine (vitamin B6) 100 mg tablet (Vitamin B-6) 100 mg PO DAILY 10/17/21 [History Confirmed 11/05/22] temazepam 30 mg capsule 30 mg PO QHS 10/17/21 [History Confirmed 11/05/22] levothyroxine 50 mcg tablet 75 mcg PO DAILY thyroid 10/27/21 [History Confirmed 11/05/22] metoprolol succinate 25 mg tablet,extended release 24 hr 25 mg PO DAILY heart 10/27/21 [History Confirmed 11/05/22] ranolazine 500 mg tablet,extended release,12 hr 500 mg PO BID heart 10/27/21 [History Confirmed 11/05/22] hydrocodone-acetaminophen 5-325mg 5mg-325mg 1 tab PO Q8H PRN pain 2 days #6 tabs 08/06/22 [Rx Confirmed 11/05/22] linaclotide 145 mcg capsule (Linzess) 145 mcg PO 11/05/22 [History Confirmed 11/05/22] PFSH Medical History? ANDRIY (acute kidney injury) Anemia Arthritis Asthma Atherosclerotic heart disease of [place] coronary artery without angina pectoris Back pain Casiano esophagus Cardiology follow-up encounter Cellulitis Cellulitis of right lower extremity Congestive heart failure (CHF) Dietary restriction Foot drop, left Former smoker Gastric reflux High cholesterol History of DVT (deep vein thrombosis) History of echocardiogram History of edema History of heart attack History of IBS History of pain when walking History of renal dialysis History of renal disease Hyperlipidemia Hypertension Lumbar disc disease Lumbar radiculopathy Nonrheumatic mitral valve regurgitation PAD (peripheral artery disease) Peripheral neuropathy Renal insufficiency Rheumatoid arthritis Seizures Shortness of breath on exertion Spinal stenosis of lumbar region Thyroid disease Ulcer of left lower extremity with fat layer exposed Ulcer of right lower extremity with fat layer exposed Urinary retention 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 History of arteriovenostomy for renal dialysis (~12/2021) History of bunionectomy of left great toe History of cardiac catheterization History of carpal tunnel surgery History of hysterectomy History of laminectomy Hx of appendectomy Postsurgical percutaneous transluminal coronary angioplasty (PTCA) status Presence of stent in coronary artery S/P arteriovenous (AV) fistula creation Status post insertion of iliac artery stent Family History? Father Heart diseaseMother Myocardial infarction,? Onset Age: 50 CAD (coronary artery disease)Brother Diabetes Social History? Smoking Status:? Former smoker alcohol intake:? never substance use type:? does not use HPI HPI Surgical H&P: Yes HPI: Patient is a 72 y/o F I am seeing for problem with dialysis access. Patient dialyzes at [facility] on M, [address] and [address]. Patient notes the last 2-3 treatments her fistula has been infiltrated. Patient continues to have her chest catheters. Patient has been using her chest catheters the last week due to bleeding around the needles and her pressures being too high. Patient has never had a fistulogram on this current fistula. Patient is maintained on Plavix due to a history of cardiac stents. ROS General General: Yes weight change and appetite; No fatigue, colon cancer, breast cancer or weakness HEENT HEENT: Yes eye surgery; No difficulty swallowing, eye injury, swollen glands or hoarseness Endo Endocrine: Yes thyroid disease; No diabetes mellitus, thyroid cancer, Hair loss, heat intolerance or cold intolerance Skin Skin: No rash or changing moles Musc Musculoskeletal: Yes back problems, arthritis and rheumatoid arthritis; No gout or joint pain Cardio Cardiovascular: Yes murmur, heart disease, high blood pressure, heart attack and heart stent; No pacemaker, atrial fibrillation, palpitations, shortness of breat with exertion or chest pain Psych Psychiatric: No depression, anxiety or hearing voices Resp Respiratory: Yes shortness of breath, No sleep apnea, No cough, No COPD, Yes asthma, No emphysema and No wheezing Gastro Gastrointestinal: No abdominal pain, Yes nausea or vomiting, No diarrhea, No constipation, No blood in stool, Yes acid reflux, No hemorrhoids, No ulcers, No gallbladder problem and No black,tarry stools Arnoldo Hematologic: Yes blood thinners, No blood disorders, No bleeding, Yes anemia and No blood clots Neuro Neurologic: No system reviewed and no additional complaints, except as documented, No as per HPI, No abnormal gait, No abnormal hearing, No abnormal movements, No abnormal speech, No behavioral changes, No burning sensations, No confusion, No convulsions, No disequilibrium, No dizziness, No localized weakness, No frequent falls, No headache(s), No lack of coordination, No loss of vision, No memory loss, No numbness, No other visual disturbances, No radicular pain, No restless legs, No sensory deficit, No syncope, No tingling, No tremor(s), No weakness and No other Exam Const General: cooperative, healthy appearing, comfortable and no acute distress [facility] Head: normal to inspection Eyes General: appearance normal, both eyes and all related structures Neck Neck: normal visual inspection Neck mass: No Chest Other: Left chest- tunneled dialysis catheter present Resp Effort & Inspection: normal respiratory effort Auscultation: clear to auscultation bilaterally Cardio Rate: regular rate Rhythm: regular rhythm GI Inspection: normal to inspection Palpation: soft Skin General: ecchymosis (right upper extremity hematoma from infiltration) Neuro General: no focal motor deficits and CN's II-XI intact bilaterally Extrem Other: Right upper extremity AV fistula- good pulse, diminished bruit and thrill. High-pitched whistling tone in the mid aspect of the humerus possible represent a higher stenosis in the clavicular region. Psych Appearance: grossly normal Affect: normal affect Assessment and Plan Assessment and Plan (1) Problem with dialysis access: ?Status:?Acute ?Plan: Dr. Cheatham will plan to perform a more urgent right upper extremity fistulogram. Procedure details, risks and benefits have been explained. Patient and her have had the opportunity to ask and have questions answered. Patient verbally understands and agrees with the plan. Patient is to hold her Plavix x 1 day prior to the procedure. She will obtain blood work today. She will be scheduled for Wednesday. I have examined the patient and the H&P has been reviewed. There are no clinical changes since date of exam. Donell Cheatham M.D., F.A.C.S.
--- NOTE | 2022-11-09 09:41 | OP.PCM_ITS ---
Report of Operation Date of Procedure: 11/09/22 Pre-Operative Diagnosis: Infiltration right upper arm transposed basilic vein to brachial artery arteriovenous hemodialysis fistula Post-Operative Diagnosis: Proximal fistula venous stenosis Surgery/Procedure Performed:: Right upper extremity fistulogram with 8 x 2 conquest angioplasty Description of Surgical Findings:: Timeout and informed consent was obtained. 72-year-old female was taken to the special procedures lab placed upon the table she received 50 mcg of fentanyl and 1 mg of Versed is intravenous sedation. The right upper extremity was sterilely prepped and draped. Ultrasound was used to identify the transposed basilic vein in the more distal right upper arm. There have been infiltration more proximally in the right upper arm. Under ultrasound guidance 2% lidocaine was instilled throughout the procedure a total of 2 cc was used. Like a puncture needle was inserted antegrade with flow micropuncture wire 6 [place] short sheath was inserted using Isovue contrast a fistulogram was obtained of the right upper extremity demonstrating excellent central venous outflow. Compression was held in on the outflow and retrograde with obtaining to the brachial artery and there appeared to be within the first 2 cm of the fistula and area of relative stenosis. So then using ultrasound again and injected local in the more mid right upper arm and then retrograde with flow gain access with a micropuncture needle micropuncture wire 6 [place] short sheath dilator. I was able then to get an 03 5 inch Glidewire and a 4 [place] glide cath into the brachial artery proximal to the anastomosis. Obtained a fistulogram through this demonstrating that the anastomosis to be widely patent with an area of stenosis at approximately 2 to [address] able to place a 8 x 2 conquest balloon and balloon angioplasty was performed up to 35 brendon of pressure and held for 3 minutes. The balloon was deflated and images were obtained through the balloon now demonstrating resolution of any stenosis and absolutely wide open flow. U sutures of 4-0 nylon were placed at each of the sheaths and the sheaths were removed. At the completion there was a good pulse and thrill and bruit within the fistula. Images demonstrate a transposed right upper arm basilic vein to brachial artery arteriovenous fistula with area of suspected venous stenosis approximately 2 to 3 cm from the anastomosis. Subsequent to the balloon angioplasty this appears to be resolved. The central outflow of the fistula appeared to be normal. Clinically the fistula had an excellent thrill at the completion. Specimens none. Drains none. Blood loss minimal. Donell Cheatham M.D., F.A.C.S. Surgeon: Donell Cheatham Type of Anesthesia: IV Sedation and Local
== END 2022-11-09 10:45 | disposition home or self-care (01) ==
LOC: CLSP 07:12
PROVIDERS: PCP Family Medicine; Referring Provider Surgery; Visit Provider Surgery
DX: T82.858A Stenosis of other vascular prosthetic devices, implants and grafts, initial encounter (principal); Y83.8 Other surgical procedures as the cause of abnormal reaction of the patient, or of later complication, without mention of misadventure at the time of the procedure; N28.9 Disorder of kidney and ureter, unspecified; I25.10 Atherosclerotic heart disease of native coronary artery without angina pectoris; Z79.82 Long term (current) use of aspirin; Z79.02 Long term (current) use of antithrombotics/antiplatelets; Z79.899 Other long term (current) drug therapy; Z79.890 Hormone replacement therapy; Z87.891 Personal history of nicotine dependence; Z95.5 Presence of coronary angioplasty implant and graft
CPT/HCPCS: 36902; 76937; 99152; 99153; Q9967; C1725; C1769

== ENCOUNTER → 2023-01-22 | Outpatient (CLI) | payer MEDICARE, OTHER, SELFPAY ==
[2023-01-22 11:46] LABS: Hepatitis B Surface Antigen Non-Reactive (Nonreactive)
== END | disposition home or self-care (01) ==
PROVIDERS: PCP Family Medicine; Referring Provider Student in an Organized Health Care Education/Training Program; Visit Provider Student in an Organized Health Care Education/Training Program
DX: N18.6 End stage renal disease (principal)
CPT/HCPCS: 36415; 87340

== ENCOUNTER → 2023-08-18 | Outpatient (CLI) | payer MEDICARE, OTHER, SELFPAY | END | disposition home or self-care (01) | PROVIDERS: PCP Family Medicine; Referring Provider Otolaryngology Otolaryngology/Facial Plastic Surgery; Visit Provider Otolaryngology Otolaryngology/Facial Plastic Surgery | DX: H60.01 Abscess of right external ear (principal) | CPT/HCPCS: 87070; 87075; 87077; 87205 ==

== ENCOUNTER → 2023-11-02 | Outpatient (CLI) | payer MEDICARE, OTHER, SELFPAY ==
[2023-11-02 19:49] LABS: Amphetamine Urine VISTA NEGATIVE (<1000 ng/mL); Barbiturate Urine VISTA NEGATIVE (< 200 ng/mL); Benzodiazepine Urine VISTA POSITIVE (< 200 ng/mL); Cocaine Urine VISTA NEGATIVE (< 300 ng/mL); Ecstacy Urine VISTA NEGATIVE (< 500 ng/mL); Methadone Urine VISTA NEGATIVE (< 300 ng/mL); PCP Urine VISTA NEGATIVE (< 25 ng/mL); THC Urine VISTA NEGATIVE (< 50 ng/mL); Vista UDS pH Range 4
== END | disposition home or self-care (01) ==
LOC: LAB 15:48
PROVIDERS: PCP Family Medicine; Referring Provider Anesthesiology; Visit Provider Anesthesiology
DX: M47.815 Spondylosis without myelopathy or radiculopathy, thoracolumbar region (principal); M96.1 Postlaminectomy syndrome, not elsewhere classified
CPT/HCPCS: 80307

== ENCOUNTER → 2023-12-06 | Outpatient (CLI) | payer MEDICARE, OTHER, SELFPAY ==
--- NOTE | 2023-12-06 09:58 | MRI_ITS ---
STUDY: MRI LUMBAR SPINE WITHOUT CONTRAST REASON FOR EXAM: Female, 73 years old. Radiculopathy. TECHNIQUE: Standardized fat and water weighted pulse sequences were obtained in the sagittal and axial planes. COMPARISON: CT lumbar spine with and without contrast 06/05/2020. FINDINGS: T10-T11: (Sagittal only). Normal T10 inferior endplate. Slight anterior wedging of T11 superior endplate may be developmental or from remote injury. Normal disc height and morphology. No ventral extradural defect. Normal central canal and right intervertebral neural foramen. The left intervertebral neural foramen is not included. T11-T12: Normal endplates. Normal disc height and morphology. No ventral extradural defect. Normal facet joints. Normal central canal and bilateral lateral recesses. Normal bilateral intervertebral neural foramina. Small right upper renal pole cyst is visible at this level. T12-L1: Minimal anterior wedging of the vertebral endplates may be developmental and remote injury. Normal disc height. No ventral extradural defect. Normal facet joints. Normal central canal and bilateral lateral recesses. Normal bilateral intervertebral neural foramina. Small left posterior renal parenchymal cyst is visible at this level. Normal lumbar lordosis. There is no substantial scoliosis. Normal conus medullaris that terminates at the T12-L1 disc space level. L1-2: Schmorl''s node in the L2 superior endplate. Normal endplates. Moderate disc space height narrowing. Prominent ventral extradural defect due to posterior bulging annulus. No significant facet arthropathy. Mild dorsal epidural lipomatosis. Pronounced central canal stenosis with an AP canal diameter of 4 mm secondary to developmentally short pedicles and mild dorsal epidural lipomatosis. Normal bilateral lateral recesses. Mild stenosis of the bilateral intervertebral neural foramina. Minimal right-sided degenerative retrolisthesis of L1 on L2 is unchanged. L2-3: Metallic implant inside the disc space causing signal distortion of the vertebral endplates and the underlying vertebral bodies. Postsurgical absence of the spinous processes and lamina. Normal central canal and bilateral lateral recesses. Mild stenosis of the bilateral intervertebral neural foramina. L3-4: Disc implant inside the disc space. Postsurgical absence of the spinous processes and lamina. Normal central canal and bilateral lateral recesses. Mild stenosis of the bilateral intervertebral neural foramina. L4-5: Normal endplates. Mild disc space height narrowing. Mild degenerative anterolisthesis of L4 on L5 with small posterior bulging annulus. No significant facet arthropathy. Normal central canal and bilateral lateral recesses. Mild stenosis of the bilateral intervertebral neural foramina. L5-S1: Normal endplates. Intradiscal calcification is better seen on CT. Normal disc height. No ventral extradural defect. Moderate left degenerative facet arthropathy. Mild right degenerative facet arthropathy. Normal central canal and bilateral lateral recesses. Normal bilateral intervertebral neural foramina. Normal visualized sacral ala. Normal visualized paraspinous soft tissue structures. MRI/Spine Lumbar (Routine) IMPRESSION: 1. Interval removal of the metallic rods and pedicular screws at L2 down to S1. 2. Pronounced central canal stenosis at L1-L2 disc space level with an AP canal diameter of 4 mm secondary to developmentally short pedicles and mild dorsal epidural lipomatosis. Minimal right-sided degenerative retrolisthesis of L1 on L2 is unchanged. 3. Mild degenerative anterolisthesis of L4 on L5 with small posterior bulging annulus and mild stenosis of the bilateral intervertebral neural foramina. 4. No suspicious lumbar extruded disc fragment or disc protrusion, Electronically Signed: Danny Dunbar MD at 14:11 EDT ,
== END | disposition home or self-care (01) ==
LOC: MRI 12:04
PROVIDERS: PCP Family Medicine; Referring Provider Anesthesiology; Visit Provider Anesthesiology
DX: M96.1 Postlaminectomy syndrome, not elsewhere classified (principal)
CPT/HCPCS: 72148

== ENCOUNTER → 2024-02-11 | Outpatient (CLI) | payer MEDICARE, OTHER, SELFPAY ==
--- NOTE | 2024-02-11 11:50 | RAD_ITS ---
STUDY: X-RAY CHEST REASON FOR EXAM: Female, 73 years old. Preoperative evaluation. TECHNIQUE: Frontal and lateral views of the chest. COMPARISON: October 27, 2021 FINDINGS: Stable mild hyperinflation. There is no demonstrated pleural abnormality. Borderline cardiomegaly unchanged. Normal mediastinum and wendy. Normal visualized pulmonary arteries. Stable aortic tortuosity. Thoracic osteopenia with mild diffuse thoracic spondylosis. Right total shoulder arthroplasty unchanged. No abnormality of the visualized soft tissue structures of the upper abdomen. RAD/Chest PA and Lateral IMPRESSION: Stable chest with no acute or active cardiopulmonary disease. Electronically Signed: Joshua Bhardwaj MD at 14:47 EDT ,
== END | disposition home or self-care (01) ==
LOC: RAD 11:47
PROVIDERS: PCP Family Medicine; Referring Provider Orthopaedic Surgery; Visit Provider Orthopaedic Surgery
DX: Z01.810 Encounter for preprocedural cardiovascular examination (principal)
CPT/HCPCS: 71046

== ENCOUNTER 2024-08-17 06:46 | Observation (INO) | payer MEDICARE, OTHER, SELFPAY ==
[2024-08-17] VITALS (18 sets, daily range): BP systolic 110–138; BP diastolic 32–74; PULSE 76–88; RESP 15–20; TEMP 36.3–36.9; O2SAT 93–100; BMI 31.6; BMI 31.1
--- NOTE | 2024-08-17 07:07 | EKG12_ITS ---
Test Reason : SOB Blood Pressure : */* mmHG Vent. Rate : 78 BPM Atrial Rate : 78 BPM P-R Int : 136 ms QRS Dur : 82 ms QT Int : 402 ms P-R-T Axes : 65 27 61 degrees QTcB Int : 458 ms Normal sinus rhythm Normal ECG Confirmed by EMILIANA JAMES, MARIELENA ([id number]), magazine editor KIARA CONSTANTINO ([id number]) on 08/18/2024 9:42:19 AM Referred By: CORY Confirmed By: MARIELENA HOPSON MD
--- NOTE | 2024-08-17 07:08 | ED.VIS.DYS ---
HPI History of Present Illness Chief Complaint: Shortness of Breath Informant: patient and spouse/S.O. Narrative Narrative: 74-year-old dialysis patient presenting to the emergency room with cough and weakness. Patient states for the month she has had cough and some shortness of breath. She is a very poor historian and it is extremely difficult to get her to provide an accurate information. At first she tells me that over the weekend she developed diarrhea but then she tells me it was last week but now she is telling me it was 3 days ago. She states she had it for 1 day and it resolved. She notes a sore throat persistent cough over the month no fevers and now has a sore throat. She states that she went to dialysis today but because she had not had it since last Wednesday (08/11) they sent her here. Dialysis called and said that she was choosing to come here because she felt poorly. Patient notes that she does make urine but denies urinary symptoms. [facility] Medical History History of renal dialysis Anemia Wound dehiscence Wears dentures Wears glasses Thyroid disease Walker as ambulation aid Arthritis History of renal disease High cholesterol Back pain Seizures Dietary restriction History of IBS [place]iano esophagus Gastric reflux Former smoker Shortness of breath on exertion History of pain when walking History of edema History of echocardiogram Cardiology follow-up encounter History of heart attack Nonrheumatic mitral valve regurgitation History of DVT (deep vein thrombosis) Cellulitis of right lower extremity Renal insufficiency Congestive heart failure (CHF) Ulcer of right lower extremity with fat layer exposed Ulcer of left lower extremity with fat layer exposed Foot drop, left Lumbar disc disease Lumbar radiculopathy Spinal stenosis of lumbar region Rheumatoid arthritis Atherosclerotic heart disease of [place] coronary artery without angina pectoris Urinary retention ANDRIY (acute kidney injury) Cellulitis Hyperlipidemia Asthma Hypertension Peripheral neuropathy PAD (peripheral artery disease) Home Medications ?Medication ?Instructions ?Recorded ?Last Taken ?Type nitroglycerin 0.4 mg sublingual 0.4 mg sublingual Q5M PRN Chest 06/19/15 Unknown History tablet Pain aspirin 81 mg tablet,delayed 81 mg PO DAILYCM 11/05/17 08/16/24 Rx release hydroxyzine HCl 25 mg tablet 25 mg PO Q6H PRN PRN Itching 02/10/19 08/16/24 History omeprazole 40 mg capsule,delayed 40 mg PO BID GERD 04/11/19 08/16/24 History release clopidogrel 75 mg tablet 75 mg PO DAILY 10/10/21 08/16/24 History furosemide 40 mg tablet 40 mg PO DAILY 10/17/21 08/16/24 History levetiracetam 500 mg tablet 500 mg PO BID 10/17/21 08/16/24 History (Keppra) montelukast 10 mg tablet 10 mg PO DAILY 10/17/21 08/16/24 History potassium chloride 10 mEq 40 meq PO SUTUTHSA 10/17/21 08/15/24 History tablet,extended release levothyroxine 50 mcg tablet 75 mcg PO DAILY thyroid 10/27/21 08/16/24 History metoprolol succinate 25 mg 25 mg PO DAILY heart 10/27/21 08/16/24 History tablet,extended release 24 hr ranolazine 500 mg tablet,extended 500 mg PO BID heart 10/27/21 11/09/22 History release,12 hr hydrocodone-acetaminophen 5-325mg 1 tab PO Q8H PRN pain 2 days #6 08/06/22 08/16/24 Rx 5mg-325mg tabs albuterol sulfate 90 mcg/actuation 1 puff inhalation Q6H PRN PRN 08/17/24 08/16/24 History aerosol inhaler wheezing linaclotide 290 mcg capsule 290 mcg PO DAILY 08/17/24 08/16/24 History (Linzess) melatonin 10 mg capsule 30 mg PO QHS 08/17/24 08/16/24 History multivitamin (Daily Multi-Vitamin 1 tab PO DAILY 08/17/24 08/16/24 History tablet) ondansetron 4 mg disintegrating 4 mg PO DAILY PRN nausea and 08/17/24 Unknown History tablet vomiting rosuvastatin 40 mg tablet 40 mg PO DAILY 08/17/24 08/16/24 History Allergy/AdvReac Type Severity Reaction Status Date / Time colesevelam HCl (From Allergy Unknown Verified 08/17/24 06:47 WelChol) metolazone (From Zaroxolyn) Allergy Unknown Verified 08/17/24 06:47 nitrofurantoin Allergy Unknown Verified 08/17/24 06:47 macrocrystalline (From Macrodantin) Penicillins Allergy Unknown Verified 08/17/24 06:47 pravastatin sodium (From Allergy Unknown Verified 08/17/24 06:47 Pravachol) tramadol AdvReac Nausea Verified 08/17/24 06:47 Family History Father Heart disease Mother Myocardial infarction, Onset Age: 50 CAD (coronary artery disease) Brother Diabetes Surgical History S/P arteriovenous (AV) fistula creation History of arteriovenostomy for renal dialysis (~12/2021) History of cardiac catheterization Hx of appendectomy History of hysterectomy History of carpal tunnel surgery History of bunionectomy of left great toe History of laminectomy Status post insertion of iliac artery stent Postsurgical percutaneous transluminal coronary angioplasty (PTCA) status Presence of stent in coronary artery Social History Smoking Status: Former smoker alcohol intake: never substance use type: does not use ROS ROS ED ROS Narrative Generalized weakness Constitutional Constitutional ED: Denies chills, fever(s) or weight loss Eyes Eyes: Denies change in vision or diplopia ENT ENT ED: Reports sore throat; Denies ear pain or rhinorrhea Cardiovascular Cardiovascular: Denies chest pain, orthopnea, palpitations or racing heartbeat Respiratory/Chest Respiratory/Chest: Reports cough, dyspnea and dyspnea on exertion; Denies orthopnea Gastrointestinal Gastrointestinal: Reports diarrhea; Denies abdominal pain, nausea or vomiting Genitourinary Genitourinary ED: Denies dysuria, hematuria or urinary frequency Musculoskeletal Musculoskeletal: Denies arthralgias or myalgias Integumentary Denies abscess or rash Neurologic Neurologic: Denies headache(s) or weakness Psychiatric Psychiatric: Denies anxiety, depression, suicidal ideation or suicidal thoughts Endocrine Endocrinology: Denies polydipsia, polyphagia or polyuria Allergic/Immunologic Allergic/Immunologic ED: Denies mouth swelling, tongue swelling or urticaria EXAM Physical Exam Const Vital Signs: 08/17/24 06:48 08/17/24 06:50 08/17/24 06:50 Temperature 98 F 98 F Temperature Source Oral Oral Pulse Rate 82 82 Respiratory Rate 19 H 19 H Respiratory Effort Short of Breath Respiratory Depth Normal Respiratory Pattern Normal Blood Pressure 130/60 H 130/60 H Blood Pressure Mean 83 83 Pulse Ox 93 98 Oxygen Delivery Method Room Air Room Air Room Air 08/17/24 07:50 08/17/24 07:50 08/17/24 08:07 Temperature 97.4 F L 97.4 F L 97.5 F L Temperature Source Oral Oral Oral Pulse Rate 78 78 77 Respiratory Rate 16 18 19 H Respiratory Effort Respiratory Depth Respiratory Pattern Blood Pressure 138/74 H 138/74 H 135/74 H Blood Pressure Mean 95 95 94 Pulse Ox 96 97 96 Oxygen Delivery Method Room Air Room Air Room Air 08/17/24 09:03 08/17/24 10:05 08/17/24 10:16 Temperature 97.4 F L 97.6 F L Temperature Source Oral Oral Pulse Rate 77 83 82 Respiratory Rate 15 18 16 Respiratory Effort Respiratory Depth Respiratory Pattern Normal Blood Pressure 128/61 H 126/52 H Blood Pressure Mean 83 76 Pulse Ox 97 95 Oxygen Delivery Method Room Air Room Air 08/17/24 11:16 08/17/24 11:17 Temperature 98.1 F 97.5 F L Temperature Source Oral Pulse Rate 80 84 Respiratory Rate 19 H 20 H Respiratory Effort Respiratory Depth Respiratory Pattern Blood Pressure 127/52 H 127/52 H Blood Pressure Mean 77 77 Pulse Ox 97 97 Oxygen Delivery Method Room Air Positive well nourished, well developed and obese General Appearance ED: well developed and NAD Nutritional Appearance: obese HEENT Reports normocephalic, head/scalp atraumatic and moist mucous membranes Eyes PERRL and EOMs intact bilaterally Neck no lymphadenopathy, supple and no JVD Resp normal respiratory effort Auscultation: rhonchi throughout (Clears with coughing) Cardio regular rate, regular rhythm and no murmurs GI normal to inspection, nondistended, normoactive bowel sounds and non-tender Palpation: soft Back/Spine no CVA tenderness and normal ROM Extremity normal to inspection General Extremety ED: Negative for edema General Extremity: Negative for edema Neuro oriented x3 and CN's II-XII intact bilaterally Sensorium / Orientation: alert Motor Exam: strength 5/5 throughout Psych mental status grossly normal Mood & Affect: Negative for depressed or tearful Skin no rashes or lesions noted and no wounds MDM MDM MDM Narrative Medical decision making narrative: Differential diagnosis includes but not limited to volume overload electrolyte abnormalities anemia congestive heart failure pneumonia sepsis bronchitis UTI My independent interpretation the chest x-ray is left lower lobe infiltrate. White count returns at 22.7 hemoglobin is 8.6 platelet count 236. INR 1.5 PTT 45.3 BMP with a sodium of 132 normal lactic acid 0.9 glucose 125 BUN is 67 creatinine 6.01. Urinalysis demonstrates 25-50 white cells 1+ bacteria but negative nitrates. This will be sent for culture. Blood cultures were obtained. Patient received a DuoNeb in addition to Rocephin and azithromycin. Patient is not hypoxic at rest. She is otherwise normal tensive. She appears globally weak is a 22.7 thousand white count and evidence of infiltrate on chest x-ray. I will speak with the hospitalist regarding admission and need for dialysis. History & Record Review Discussion w/independent historian: Patient and Significant other Additional record(s) reviewed:: Prior labs Lab Data Attestation: I reviewed the patient's lab results. Labs: Laboratory Results - last 24 hr 08/17/24 08/17/24 08/17/24 07:34 08:45 09:45 WBC 22.7 H RBC 2.65 L Hgb 8.6 L Hct 26.1 L MCV 98.5 MCH 32.5 H MCHC 33.0 RDW Std Deviation 54.4 H RDW Coeff of Arvind 15.3 H Plt Count 236 MPV 9.2 Immature Gran % (Auto) 0.900 Neut % (Auto) 88.6 H Lymph % (Auto) 4.7 L [place] % (Auto) 5.4 Eos % (Auto) 0.2 Baso % (Auto) 0.2 Absolute Neuts (auto) 20.2 H Absolute Lymphs (auto) 1.06 Nucleated RBC % 0 Diff Path Review May foll Hypersegmented Neuts 1+ H PT 17.7 H INR 1.5 APTT 45.3 H Sodium 132 L Potassium 3.8 Chloride 101 Carbon Dioxide 23.0 Anion Gap 9 BUN 67 H Creatinine 6.01 H Estim Creat Clear Calc 8.87 Est GFR (MDRD) Af Amer 9 L Est GFR (MDRD) Non-Af 7 L BUN/Creatinine Ratio 11.1 Glucose 125 H Lactic Acid 0.9 Calcium 8.6 Phosphorus 4.9 Urine Color Yellow Urine Clarity Sl. Cloudy Urine pH 6.0 Ur Specific [place] 1.015 Urine Protein 100 H Urine Glucose (UA) Normal Urine Ketones Negative Urine Occult Blood 150 H Urine Nitrite Negative Urine Bilirubin Negative Urine Urobilinogen 1 H Ur Leukocyte Esterase 500 H Urine RBC 0-5 SEEN Urine WBC 25-50 SEEN Ur Squamous Epith Cells 0-5 SEEN Ur Transition Epith Cell 0-5 SEEN Urine Bacteria 1+ Urine Mucus 0 SEEN Radiography Diagnostic Testing: Clinical Impression(s) from Imaging Studies Chest X-Ray 08/17/24 07:41 IMPRESSION: Vague opacity within the left lower lung, may reflect pneumonia and/or atelectasis, recommend follow-up chest radiograph 6-8 weeks. Electronically Signed: Mimi Wilson MD at 8:13 EST , EKG Initial EKG: Attestation: I personally reviewed and interpreted this EKG as follows: Comments: Normal sinus rhythm ventricular rate of 78 bpm. No significant T waves to suggest hyperkalemia Discharge Plan Dx/Rx/DC Orders Clinical Impression: Pneumonia, End stage renal disease on dialysis, Acute dyspnea, Weakness Disposition Disposition: Acute Care Hospital [facility]
--- NOTE | 2024-08-17 07:41 | RAD_ITS ---
INDICATION: cough EXAMINATION/TECHNIQUE: X-RAY - XR Chest 1 View COMPARISON: March 12, 2024 and MRI of the lumbar spine dated December 06, 2023 FINDINGS: LINES/DEVICES: None. LUNGS: There is a vague opacity within the left lower lung. No pneumothorax. MEDIASTINUM AND CARDIOVASCULAR STRUCTURES: Cardiac silhouette not enlarged. There is a round density projecting over the cardiac silhouette consistent with a hiatal hernia. BONES AND SOFT TISSUES: There is a stable right total shoulder arthroplasty in place. There are stable left sixth and seventh rib deformities consistent with old fractures. RAD/Chest 1 View (Portable) IMPRESSION: Vague opacity within the left lower lung, may reflect pneumonia and/or atelectasis, recommend follow-up chest radiograph 6-8 weeks. Electronically Signed: Mimi Wilson MD at 8:13 EST ,
[2024-08-17 07:46] LABS: Absolute Lymphocyte Count 1.06 X10^3/uL (0.83-4.51); Absolute Neutrophil Count 20.2 X10^3/uL (2.0-7.7); Basophil# 0.04 X10^3/uL; Basophil% 0.2 % (0-1); Eosinophil# 0.04 X10^3/uL; Eosinophils% 0.2 % (0-5); Hematocrit 26.1 % (37-47); Hemoglobin 8.6 g/dL (12.0-15.0); Lymphocyte # 1.06 X10^3/ul (0.83-4.51); Lymphocyte % 4.7 % (19-41); Mean Corpuscular Hgb 32.5 pg (27.0-32.0); Mean Corpuscular Volume 98.5 fL (81-99); Mean Platelet Vol. 9.2 fl (6.2-12.0); Monocyte# 1.22 X10^3/uL; Monocyte% 5.4 % (0-10); NRBC Flagged by Analyzer 0 % (0-5); Neutrophil # 20.16 X10^3/uL (2.7-7.7); Neutrophil % 88.6 % (47-70); POSITIVE DIFFERENTIAL YES; Platelet Count 236 K/mm3 (150-450); RBC Distribution Width CV 15.3 % (11.6-14.6); RBC Distribution Width SD 54.4 fl (35.1-43.9); Red Blood Count 2.65 M/mm3 (4.2-5.4); White Blood Count 22.7 K/mm3 (4.4-11.0)
[2024-08-17 07:49] LABS: Differential Indicated SCAN CRITERIA MET
[2024-08-17 08:12] LABS: Hypersegmented Neutrophils 1+
[2024-08-17 08:13] LABS: Anion Gap 9 (5-15); BUN 67 mg/dL (7-18); BUN/Creat Ratio 11.1 RATIO (10-20); Calcium,Total 8.6 mg/dL (8.5-10.1); Chloride 101 mmol/L (98-107); Creatinine, Serum 6.01 mg/dL (0.55-1.02); EST Glomerular Filtration Rate 7 mL/min (>60); Est Glom Filt Rate - Afr Amer 9 mL/min (>60); Estimated Creatinine Clearance 8.87 ml/min; Glucose 125 mg/dL (74-106); Phosphorus 4.9 mg/dL (2.5-4.9); Potassium 3.8 mmol/L (3.5-5.1); Sodium Level 132 mmol/L (136-145)
[2024-08-17] MEDS: Ceftriaxone 1 GM/50 ML BAG IV (08:56)
[2024-08-17 09:08] LABS: International Normalized Ratio 1.5; Prothrombin Time (Protime)PT. 17.7 SECONDS (11.7-14.9)
[2024-08-17 09:18] LABS: Partial Thromboplast Time 45.3 Seconds (24.1-36.2)
[2024-08-17] MEDS: Azithromycin 500 MG in 0.9% Normal Saline (250mL Bag) 250 ML 250 MG IV (09:34)
[2024-08-17 09:50] LABS: Mucous, Urine 0 SEEN /hpf (<or=2+)
[2024-08-17 09:52] LABS: Color, Urine Yellow (Yellow); Glucose, Dipstick Normal (Normal); Ketone-Dipstick Negative (Negative); Leukocyte Esterase-Dipstick 500 /ul (Negative); Nitrite-Dipstick Negative (Negative); Occult Blood-Urine 150 /ul (Negative); Protein-Dipstick 100 mg/dl (Negative); Specific Gravity, Urine 1.015 (1.002-1.030); Urine Bilirubin Dipstick Negative (Negative); Urine Clarity Sl. Cloudy (Clear); Urine Urobilinogen 1 mg/dl (Normal)
[2024-08-17 09:58] LABS: Bacteria 1+ /hpf (None Seen); Red Blood Cells-Urine 0-5 SEEN /hpf (0-5); Squamous Epithelial Cells - UA 0-5 SEEN /hpf (5-10); Transitional Epithelial - Ur 0-5 SEEN /hpf (0-5); White Blood Cells 25-50 SEEN /hpf (0-5)
[2024-08-17 10:14] LABS: Lactic Acid 0.9 mmol/L (0.4-1.9)
[2024-08-17] MEDS: Ipratropium/Albuterol Sulfate 3 ML AMPUL.NEB INHALATION ×3 (10:14→19:31)
--- NOTE | 2024-08-17 14:40 | CON.PCM.RE_ITS ---
Assessment & Plan Assessment/Plan (1) End stage renal disease on dialysis: (2) Anemia of chronic disease: PLAN: Plan This is a pleasant 74-year-old female with past medical history significant for ESRD who dialyzes at [facility] followed by Dr. Reed, admitted for probable pneumonia, started on IV antibiotics, blood cultures pending. Nephrology consulted as patient has history of ESRD, for dialysis management. There is no acute indication for TONE REGULATOR today, potassium is normal, volume status appears compensated, patient is on room air. Will plan for dialysis tomorrow over 4 hours and attempt fluid removal as patient/blood pressure tolerates. Patient has history of anemia of chronic disease, hemoglobin is 8.6. Will follow hemoglobin trends. Patient receives long-acting JOANN and iron at [facility]. Further orders forthcoming as hospitalization evolves, thank you for allowing us to participate in the care of Mr. Earl. HPI Consult Data Date of Consult: 08/17/24 HPI Narrative HPI Narrative: MARCOS EARL, is a 74 F with past medical history significant for ESRD who presented to the emergency room today with complaints of feeling unwell and cough. Admitted for pneumonia. Patient dialyzes at [facility] on a Wednesday schedule followed by Dr. Reed. Per patient she last dialyzed 08/11. Patient reports she did not go to dialysis on Wednesday as she was having diarrhea. Due to the holiday patient's dialysis clinic schedule is Wednesday this week. She was told by the staff at the kidney center to come to the emergency room today for further evaluation and treatment. Patient denies any fevers. States she is no longer having diarrhea. The patient is complaining of cough, feeling weak and feeling unwell. [facility] Medical History (Updated 08/17/24 @ 14:45 by MARGARETH Holder) Kidney disease Dialysis patient History of renal dialysis Anemia Wound dehiscence Wears dentures Wears glasses Thyroid disease Walker as ambulation aid Arthritis History of renal disease High cholesterol Back pain Seizures Dietary restriction History of IBS Casiano esophagus Gastric reflux Former smoker Shortness of breath on exertion History of pain when walking History of edema History of echocardiogram Cardiology follow-up encounter History of heart attack Nonrheumatic mitral valve regurgitation History of DVT (deep vein thrombosis) Cellulitis of right lower extremity Renal insufficiency Congestive heart failure (CHF) Ulcer of right lower extremity with fat layer exposed Ulcer of left lower extremity with fat layer exposed Foot drop, left Lumbar disc disease Lumbar radiculopathy Spinal stenosis of lumbar region Rheumatoid arthritis Atherosclerotic heart disease of [place] coronary artery without angina pectoris Urinary retention ANDRIY (acute kidney injury) Cellulitis Hyperlipidemia Asthma Hypertension Peripheral neuropathy PAD (peripheral artery disease) Home Medications ?Medication ?Instructions ?Recorded ?Last Taken ?Type nitroglycerin 0.4 mg sublingual 0.4 mg sublingual Q5M PRN Chest 06/19/15 Unknown History tablet Pain aspirin 81 mg tablet,delayed 81 mg PO DAILYCM 11/05/17 08/16/24 Rx release hydroxyzine HCl 25 mg tablet 25 mg PO Q6H PRN PRN Itching 02/10/19 08/16/24 History omeprazole 40 mg capsule,delayed 40 mg PO BID GERD 04/11/19 08/16/24 History release clopidogrel 75 mg tablet 75 mg PO DAILY 10/10/21 08/16/24 History furosemide 40 mg tablet 40 mg PO DAILY 10/17/21 08/16/24 History levetiracetam 500 mg tablet 500 mg PO BID 10/17/21 08/16/24 History (Keppra) montelukast 10 mg tablet 10 mg PO DAILY 10/17/21 08/16/24 History potassium chloride 10 mEq 40 meq PO SUTUTHSA 10/17/21 08/15/24 History tablet,extended release levothyroxine 50 mcg tablet 75 mcg PO DAILY thyroid 10/27/21 08/16/24 History metoprolol succinate 25 mg 25 mg PO DAILY heart 10/27/21 08/16/24 History tablet,extended release 24 hr ranolazine 500 mg tablet,extended 500 mg PO BID heart 10/27/21 11/09/22 History release,12 hr hydrocodone-acetaminophen 5-325mg 1 tab PO Q8H PRN pain 2 days #6 08/06/22 08/16/24 Rx 5mg-325mg tabs albuterol sulfate 90 mcg/actuation 1 puff inhalation Q6H PRN PRN 08/17/24 08/16/24 History aerosol inhaler wheezing linaclotide 290 mcg capsule 290 mcg PO DAILY 08/17/24 08/16/24 History (Linzess) melatonin 10 mg capsule 30 mg PO QHS 08/17/24 08/16/24 History multivitamin (Daily Multi-Vitamin 1 tab PO DAILY 08/17/24 08/16/24 History tablet) ondansetron 4 mg disintegrating 4 mg PO DAILY PRN nausea and 08/17/24 Unknown History tablet vomiting rosuvastatin 40 mg tablet 40 mg PO DAILY 08/17/24 08/16/24 History Allergy/AdvReac Type Severity Reaction Status Date / Time colesevelam HCl (From Allergy Unknown Verified 08/17/24 06:47 WelChol) metolazone (From Zaroxolyn) Allergy Unknown Verified 08/17/24 06:47 nitrofurantoin Allergy Unknown Verified 08/17/24 06:47 macrocrystalline (From Macrodantin) Penicillins Allergy Unknown Verified 08/17/24 06:47 pravastatin sodium (From Allergy Unknown Verified 08/17/24 06:47 Pravachol) tramadol AdvReac Nausea Verified 08/17/24 06:47 Family History Father Heart disease Mother Myocardial infarction, Onset Age: 50 CAD (coronary artery disease) Brother Diabetes Surgical History S/P arteriovenous (AV) fistula creation History of arteriovenostomy for renal dialysis (~12/2021) History of cardiac catheterization Hx of appendectomy History of hysterectomy History of carpal tunnel surgery History of bunionectomy of left great toe History of laminectomy Status post insertion of iliac artery stent Postsurgical percutaneous transluminal coronary angioplasty (PTCA) status Presence of stent in coronary artery Social History Smoking Status: Former smoker alcohol intake: never substance use type: does not use ROS ROS Narrative As in HPI Physical Exam Narrative Alert and oriented x 3, no apparent distress S1, S2, RRR Lung sounds diminished bases; no rales, wheezing or rhonchi noted. On room air Abdomen soft, nontender Trace nonpitting edema bilateral lower legs Right upper arm AV fistula positive thrill and bruit Lab / Micro Data 08/17/24 07:34 08/17/24 07:34 Labs: Laboratory Results - last 24 hr 08/17/24 07:34: WBC 22.7 H, RBC 2.65 L, Hgb 8.6 L, Hct 26.1 L, MCV 98.5, MCH 32.5 H, MCHC 33.0, RDW Std Deviation 54.4 H, RDW Coeff of Arvind 15.3 H, Plt Count 236, MPV 9.2, Immature Gran % (Auto) 0.900, Neut % (Auto) 88.6 H, Lymph % (Auto) 4.7 L, [place] % (Auto) 5.4, Eos % (Auto) 0.2, Baso % (Auto) 0.2, Absolute Neuts (auto) 20.2 H, Absolute Lymphs (auto) 1.06, Nucleated RBC % 0, Diff Path Review December, Hypersegmented Neuts 1+ H, Sodium 132 L, Potassium 3.8, Chloride 101, Carbon Dioxide 23.0, Anion Gap 9, BUN 67 H, Creatinine 6.01 H, Estim Creat Clear Calc 8.87, Est GFR (MDRD) Af Amer 9 L, Est GFR (MDRD) Non-Af 7 L, BUN/Creatinine Ratio 11.1, Glucose 125 H, Calcium 8.6, Phosphorus 4.9 08/17/24 08:45: PT 17.7 H, INR 1.5, APTT 45.3 H, Lactic Acid 0.9 08/17/24 09:45: Urine Color Yellow, Urine Clarity Sl. Cloudy, Urine pH 6.0, Ur Specific [place] 1.015, Urine Protein 100 H, Urine Glucose (UA) Normal, Urine Ketones Negative, Urine Occult Blood 150 H, Urine Nitrite Negative, Urine Bilirubin Negative, Urine Urobilinogen 1 H, Ur Leukocyte Esterase 500 H, Urine RBC 0-5 SEEN, Urine WBC 25-50 SEEN, Ur Squamous Epith Cells 0-5 SEEN, Ur Transition Epith Cell 0-5 SEEN, Urine Bacteria 1+, Urine Mucus 0 SEEN Micro: Microbiology 08/17/24 09:45 Urine, Clean Catch Legionella Antigen - Final 08/17/24 07:25 Mucosa - Nose SARS-CoV-2, Influenza & RSV (PCR) - Final Imaging Radiology Impression Chest X-Ray 08/17/24 07:41 IMPRESSION: Vague opacity within the left lower lung, may reflect pneumonia and/or atelectasis, recommend follow-up chest radiograph 6-8 weeks. Electronically Signed: Mimi Wilson MD at 8:13 EST ,
--- NOTE | 2024-08-17 16:02 | PCM.HP.STD ---
HPI - General General Date of Admission: 08/17/24 Date of Service: 08/17/24 Chief Complaint: Cough, malaise, nausea HPI Narrative MARCOS SHELTON, is a 74 F who presents to the emergency room at [facility] from a local dialysis center due to complaints of cough, malaise, nausea. Patient states she has not felt well in 2 to 3 weeks. Patient denies fevers or chills at this time. Patient does complain of a productive cough over the past 2 to 3 weeks, while I was in the room examining the patient, she expectorated some green sputum into a Kleenex. Workup in the emergency room included a CBC which showed an elevated white blood cell count of 22.7, hemoglobin was 8.6, chemistry profile was abnormal for a BUN of 67 and a creatinine of 6.01, urinalysis showed 25-50 white blood cells, there is +1 bacteria and leukocyte esterase was 500. Chest x-ray was obtained which showed a left lower lobe infiltrate indicating pneumonia and/or atelectasis. Patient was not hypoxic, she was ambulated and she remained nonhypoxic. Patient will be placed into observation status on MedSurg 3 for left lower lobe pneumonia and UTI, she was placed on IV Zithromax and Rocephin, she will be seen by nephrology and undergo dialysis. Labs will be repeated in the morning as well as a chest x-ray. [facility] Medical History (Updated 08/17/24 @ 14:45 by Lore Samano NP-Kumar) Kidney disease Dialysis patient History of renal dialysis Anemia Wound dehiscence Wears dentures Wears glasses Thyroid disease Walker as ambulation aid Arthritis History of renal disease High cholesterol Back pain Seizures Dietary restriction History of IBS Casiano esophagus Gastric reflux Former smoker Shortness of breath on exertion History of pain when walking History of edema History of echocardiogram Cardiology follow-up encounter History of heart attack Nonrheumatic mitral valve regurgitation History of DVT (deep vein thrombosis) Cellulitis of right lower extremity Renal insufficiency Congestive heart failure (CHF) Ulcer of right lower extremity with fat layer exposed Ulcer of left lower extremity with fat layer exposed Foot drop, left Lumbar disc disease Lumbar radiculopathy Spinal stenosis of lumbar region Rheumatoid arthritis Atherosclerotic heart disease of [place] coronary artery without angina pectoris Urinary retention ANDRIY (acute kidney injury) Cellulitis Hyperlipidemia Asthma Hypertension Peripheral neuropathy PAD (peripheral artery disease) Home Medications ?Medication ?Instructions ?Recorded ?Last Taken ?Type nitroglycerin 0.4 mg sublingual 0.4 mg sublingual Q5M PRN Chest 06/19/15 Unknown History tablet Pain aspirin 81 mg tablet,delayed 81 mg PO DAILYCM 11/05/17 08/16/24 Rx release hydroxyzine HCl 25 mg tablet 25 mg PO Q6H PRN PRN Itching 02/10/19 08/16/24 History omeprazole 40 mg capsule,delayed 40 mg PO BID GERD 04/11/19 08/16/24 History release clopidogrel 75 mg tablet 75 mg PO DAILY 10/10/21 08/16/24 History furosemide 40 mg tablet 40 mg PO DAILY 10/17/21 08/16/24 History levetiracetam 500 mg tablet 500 mg PO BID 10/17/21 08/16/24 History (Keppra) montelukast 10 mg tablet 10 mg PO DAILY 10/17/21 08/16/24 History potassium chloride 10 mEq 40 meq PO SUTUTHSA 10/17/21 08/15/24 History tablet,extended release levothyroxine 50 mcg tablet 75 mcg PO DAILY thyroid 10/27/21 08/16/24 History metoprolol succinate 25 mg 25 mg PO DAILY heart 10/27/21 08/16/24 History tablet,extended release 24 hr ranolazine 500 mg tablet,extended 500 mg PO BID heart 10/27/21 11/09/22 History release,12 hr hydrocodone-acetaminophen 5-325mg 1 tab PO Q8H PRN pain 2 days #6 08/06/22 08/16/24 Rx 5mg-325mg tabs albuterol sulfate 90 mcg/actuation 1 puff inhalation Q6H PRN PRN 08/17/24 08/16/24 History aerosol inhaler wheezing linaclotide 290 mcg capsule 290 mcg PO DAILY 08/17/24 08/16/24 History (Linzess) melatonin 10 mg capsule 30 mg PO QHS 08/17/24 08/16/24 History multivitamin (Daily Multi-Vitamin 1 tab PO DAILY 08/17/24 08/16/24 History tablet) ondansetron 4 mg disintegrating 4 mg PO DAILY PRN nausea and 08/17/24 Unknown History tablet vomiting rosuvastatin 40 mg tablet 40 mg PO DAILY 08/17/24 08/16/24 History Allergy/AdvReac Type Severity Reaction Status Date / Time colesevelam HCl (From Allergy Unknown Verified 08/17/24 06:47 WelChol) metolazone (From Zaroxolyn) Allergy Unknown Verified 08/17/24 06:47 nitrofurantoin Allergy Unknown Verified 08/17/24 06:47 macrocrystalline (From Macrodantin) Penicillins Allergy Unknown Verified 08/17/24 06:47 pravastatin sodium (From Allergy Unknown Verified 08/17/24 06:47 Pravachol) tramadol AdvReac Nausea Verified 08/17/24 06:47 Family History Father Heart disease Mother Myocardial infarction, Onset Age: 50 CAD (coronary artery disease) Brother Diabetes Surgical History S/P arteriovenous (AV) fistula creation History of arteriovenostomy for renal dialysis (~12/2021) History of cardiac catheterization Hx of appendectomy History of hysterectomy History of carpal tunnel surgery History of bunionectomy of left great toe History of laminectomy Status post insertion of iliac artery stent Postsurgical percutaneous transluminal coronary angioplasty (PTCA) status Presence of stent in coronary artery Social History Smoking Status: Former smoker alcohol intake: never substance use type: does not use ROS Constitutional Constitutional: Reports malaise; Denies anorexia, change in weight, chills, fatigue, fever(s), night sweats or weakness Eyes Eyes: Denies blurry vision, change in vision, discharge from eye(s) or eye pain Cardiovascular Cardiovascular: Denies chest pain, claudication, dyspnea on exertion, edema or palpitations Respiratory/Chest Respiratory/Chest: Reports excessive phlegm production and productive cough; Denies cough, dyspnea, hemoptysis, shortness of breath at rest or shortness of breath with exertion Gastrointestinal Gastrointestinal: Denies abdominal pain, constipation, diarrhea, hematemesis, hematochezia, melena, nausea or vomiting Genitourinary Genitourinary: Denies dysuria, hematuria, urinary frequency, urinary hesitancy, urinary incontinence or urinary urgency Musculoskeletal Musculoskeletal: Denies back pain, joint pain, joint stiffness, joint swelling, myalgias or neck pain Neurologic Neurologic: Denies abnormal gait, abnormal speech, dizziness, focal weakness, headache(s), loss of vision, numbness, other visual disturbances, paresthesias, syncope or tingling Psychiatric Psychiatric: Denies anxiety, cognitive impairment, depression, irritability, mood swings or suicidal ideation Endocrine Endocrinology: Denies change in body appearance, cold intolerance, excessive sweating, heat intolerance, polydipsia or polyuria Hematologic/Lymphatic Hematologic/Lymphatic: Denies none, anemia, easy bleeding, easy bruising or lymphadenopathy Allergic/Immunologic Allergic/Immunologic: Denies rhinitis, urticaria, eczemia or asthma Vital Signs Vital Signs Vital Signs: 08/17/24 06:48 08/17/24 06:50 08/17/24 06:50 Temperature 98 F 98 F Temperature Source Oral Oral Pulse Rate 82 82 Pulse Strength Respiratory Rate 19 H 19 H Respiratory Effort Short of Breath Respiratory Depth Normal Respiratory Pattern Normal Blood Pressure 130/60 H 130/60 H Blood Pressure Mean 83 83 Blood Pressure Source Blood Pressure Position Blood Pressure Location Pulse Ox 93 98 Oxygen Delivery Method Room Air Room Air Room Air 08/17/24 07:50 08/17/24 07:50 08/17/24 08:07 Temperature 97.4 F L 97.4 F L 97.5 F L Temperature Source Oral Oral Oral Pulse Rate 78 78 77 Pulse Strength Respiratory Rate 16 18 19 H Respiratory Effort Respiratory Depth Respiratory Pattern Blood Pressure 138/74 H 138/74 H 135/74 H Blood Pressure Mean 95 95 94 Blood Pressure Source Blood Pressure Position Blood Pressure Location Pulse Ox 96 97 96 Oxygen Delivery Method Room Air Room Air Room Air 08/17/24 09:03 08/17/24 10:05 08/17/24 10:16 Temperature 97.4 F L 97.6 F L Temperature Source Oral Oral Pulse Rate 77 83 82 Pulse Strength Respiratory Rate 15 18 16 Respiratory Effort Respiratory Depth Respiratory Pattern Normal Blood Pressure 128/61 H 126/52 H Blood Pressure Mean 83 76 Blood Pressure Source Blood Pressure Position Blood Pressure Location Pulse Ox 97 95 Oxygen Delivery Method Room Air Room Air 08/17/24 11:16 08/17/24 11:17 08/17/24 12:02 Temperature 98.1 F 97.5 F L 98.1 F Temperature Source Oral Oral Pulse Rate 80 84 79 Pulse Strength Respiratory Rate 19 H 20 H 19 H Respiratory Effort Respiratory Depth Respiratory Pattern Blood Pressure 127/52 H 127/52 H 127/52 H Blood Pressure Mean 77 77 77 Blood Pressure Source Blood Pressure Position Blood Pressure Location Pulse Ox 97 97 96 Oxygen Delivery Method Room Air Room Air 08/17/24 13:09 08/17/24 13:13 08/17/24 13:13 Temperature 97.9 F Temperature Source Oral Pulse Rate 76 82 Pulse Strength Respiratory Rate 16 18 Respiratory Effort Normal Respiratory Depth Normal Respiratory Pattern Normal Normal Blood Pressure 132/47 H Blood Pressure Mean 75 Blood Pressure Source Monitor Blood Pressure Position Semi-Fowlers Blood Pressure Location Right Arm Pulse Ox 97 Oxygen Delivery Method Room Air Room Air 08/17/24 13:18 08/17/24 13:32 08/17/24 15:41 Temperature 97.9 F 98.4 F Temperature Source Oral Oral Pulse Rate 82 85 Pulse Strength Normal (2+) Respiratory Rate 18 16 Respiratory Effort Respiratory Depth Respiratory Pattern Blood Pressure 132/47 H 110/32 L Blood Pressure Mean 75 58 Blood Pressure Source Monitor Blood Pressure Position Semi-Fowlers Blood Pressure Location Left Arm Pulse Ox 97 94 Oxygen Delivery Method Room Air Room Air Weight Weight: 82.3 kg Body Mass Index (BMI) 31.1 Physical Exam Const alert, oriented x3, no apparent distress and healthy appearing General Appearance: cooperative, well kempt and well developed Orientation / Consciousness: awake, oriented to person, oriented to place and oriented to time HEENT normocephalic, head/scalp atraumatic, hearing grossly normal bilaterally and moist oral mucous membranes Eyes PERRL, EOMs intact bilaterally and conjunctivae normal Neck supple, no JVD, thyroid normal and no carotid bruits General: trachea midline Resp normal respiratory effort, no retractions and no use of accessory muscles Resp Narrative: Decreased breath sounds are noted at the left base Auscultation: Negative for rales, rhonchi or wheezes Cardio regular rate, regular rhythm, S1 normal heart sound, S2 normal heart sound, no murmurs, no rub and no gallops GI normal to inspection, nondistended, normoactive bowel sounds, soft to palpation, non-tender and non-distended Extremity Extremity Narrative: Generalized lower leg edema is noted Skin no rashes or lesions noted General Skin Exam: no breakdown Neuro oriented x3, CN's II-XII intact bilaterally, moves all extremities, no focal motor deficits and no sensory deficits noted Sensorium / Orientation: awake and alert Speech: speech normal Psych affect normal Results Lab / Micro Data 08/17/24 07:34 08/17/24 07:34 Labs: Laboratory Results - last 24 hr 08/17/24 07:34: WBC 22.7 H, RBC 2.65 L, Hgb 8.6 L, Hct 26.1 L, MCV 98.5, MCH 32.5 H, MCHC 33.0, RDW Std Deviation 54.4 H, RDW Coeff of Arvind 15.3 H, Plt Count 236, MPV 9.2, Immature Gran % (Auto) 0.900, Neut % (Auto) 88.6 H, Lymph % (Auto) 4.7 L, [place] % (Auto) 5.4, Eos % (Auto) 0.2, Baso % (Auto) 0.2, Absolute Neuts (auto) 20.2 H, Absolute Lymphs (auto) 1.06, Nucleated RBC % 0, Diff Path Review December, Hypersegmented Neuts 1+ H, Sodium 132 L, Potassium 3.8, Chloride 101, Carbon Dioxide 23.0, Anion Gap 9, BUN 67 H, Creatinine 6.01 H, Estim Creat Clear Calc 8.87, Est GFR (MDRD) Af Amer 9 L, Est GFR (MDRD) Non-Af 7 L, BUN/Creatinine Ratio 11.1, Glucose 125 H, Calcium 8.6, Phosphorus 4.9 08/17/24 08:45: PT 17.7 H, INR 1.5, APTT 45.3 H, Lactic Acid 0.9 08/17/24 09:45: Urine Color Yellow, Urine Clarity Sl. Cloudy, Urine pH 6.0, Ur Specific [place] 1.015, Urine Protein 100 H, Urine Glucose (UA) Normal, Urine Ketones Negative, Urine Occult Blood 150 H, Urine Nitrite Negative, Urine Bilirubin Negative, Urine Urobilinogen 1 H, Ur Leukocyte Esterase 500 H, Urine RBC 0-5 SEEN, Urine WBC 25-50 SEEN, Ur Squamous Epith Cells 0-5 SEEN, Ur Transition Epith Cell 0-5 SEEN, Urine Bacteria 1+, Urine Mucus 0 SEEN Micro: Microbiology 08/17/24 09:45 Urine, Clean Catch Legionella Antigen - Final 08/17/24 07:25 Mucosa - Nose SARS-CoV-2, Influenza & RSV (PCR) - Final Imaging Radiology Impression Chest X-Ray 08/17/24 07:41 IMPRESSION: Vague opacity within the left lower lung, may reflect pneumonia and/or atelectasis, recommend follow-up chest radiograph 6-8 weeks. Electronically Signed: Mimi Wilson MD at 8:13 EST Reading Location ID and State: [facility] / [place] Tel , Service support , Assessment & Plan Assessment/Plan (1) Pneumonia: PLAN: Plan 1. Community-acquired pneumonia left lower lobe-the patient was placed in observation status on MedSurg 3, she will be treated with IV Zithromax and Rocephin, aerosol treatments will be administered, sputum culture will be obtained if possible, urine will be checked for Legionella and strep antigens, patient's COVID and flu PCR was negative, labs will be monitored, chest x-ray will be repeated tomorrow #2 urinary tract infection-again patient will be placed on Rocephin, urine culture was obtained in the ER #3 end-stage renal disease requiring dialysis-nephrology was consulted, patient will undergo dialysis #4 essential hypertension-patient will remain on her present medication #5 coronary artery disease-patient is on aspirin and clopidogrel Total clinical time spent by myself addressing the patient's medical issues, reviewing all of his data, and collaborating with patient's care team: 75 minutes Charges/Coding Visit Charges Inpatient E&M: 77833 Init Hosp L3
[2024-08-17] MEDS: MELATONIN 10 MG TABLET 30 MG PO (21:00)
[2024-08-17] MEDS: levETIRAcetam 500 MG Tablet PO (21:00)
[2024-08-17] MEDS: Ranolazine 500 MG Tablet PO (21:01)
[2024-08-17] MEDS: Pantoprazole Sodium 40 MG Tablet PO (21:01)
[2024-08-17] MEDS: 0.9% Saline Lock 10 ML Syringe IV (21:05)
[2024-08-18] VITALS (16 sets, daily range): BP systolic 68–275; BP diastolic 51–74; PULSE 72–97; RESP 12–18; TEMP 36.4–37.1; O2SAT 96–98; BMI 30.9; BMI 29.7
[2024-08-18] MEDS: Ipratropium/Albuterol Sulfate 3 ML AMPUL.NEB INHALATION ×3 (01:40→13:22)
[2024-08-18 04:05] LABS: Absolute Lymphocyte Count 1.02 X10^3/uL (0.83-4.51); Absolute Neutrophil Count 13.1 X10^3/uL (2.0-7.7); Basophil# 0.02 X10^3/uL; Basophil% 0.1 % (0-1); Eosinophil# 0.09 X10^3/uL; Eosinophils% 0.6 % (0-5); Hematocrit 22.3 % (37-47); Hemoglobin 7.3 g/dL (12.0-15.0); Lymphocyte # 1.02 X10^3/ul (0.83-4.51); Lymphocyte % 6.7 % (19-41); Mean Corp Hgb Conc 32.7 g/dL (32-36); Mean Corpuscular Hgb 31.3 pg (27.0-32.0); Mean Corpuscular Volume 95.7 fL (81-99); Mean Platelet Vol. 8.9 fl (6.2-12.0); Monocyte# 0.82 X10^3/uL; Monocyte% 5.4 % (0-10); NRBC Flagged by Analyzer 0 % (0-5); Neutrophil # 13.08 X10^3/uL (2.7-7.7); Neutrophil % 86.3 % (47-70); Platelet Count 218 K/mm3 (150-450); RBC Distribution Width CV 15.3 % (11.6-14.6); RBC Distribution Width SD 53.5 fl (35.1-43.9); Red Blood Count 2.33 M/mm3 (4.2-5.4); White Blood Count 15.2 K/mm3 (4.4-11.0)
[2024-08-18 04:35] LABS: Anion Gap 10 (5-15); BUN 78 mg/dL (7-18); Calcium,Total 8.1 mg/dL (8.5-10.1); Chloride 102 mmol/L (98-107); EST Glomerular Filtration Rate 7 mL/min (>60); Est Glom Filt Rate - Afr Amer 8 mL/min (>60); Estimated Creatinine Clearance 8.12 ml/min; Glucose 100 mg/dL (74-106); Potassium 3.8 mmol/L (3.5-5.1); Sodium Level 130 mmol/L (136-145)
[2024-08-18] MEDS: Levothyroxine 75 MCG Tablet PO (05:46)
--- NOTE | 2024-08-18 05:55 | RAD_ITS ---
STUDY: X-RAY CHEST REASON FOR EXAM: Female, 74 years old. Fever and cough TECHNIQUE: PA and 3 lateral views COMPARISON: 08/17/2024 FINDINGS: Lungs are expanded with persistent evidence of lingular infiltrate without effusion. There has been mild improvement since yesterday''s study. Right lung is clear. Normal size heart. Normal mediastinum and wendy. Normal visualized pulmonary arteries. There is atherosclerotic calcification of the aortic arch with tortuosity. Normal visualized thoracic spine. Stable appearance of the replaced right glenohumeral joint There is no demonstrated abnormality of the visualized soft tissue structures of the upper abdomen. RAD/Chest PA and Lateral IMPRESSION: Lingular infiltrate without effusion. Follow-up recommended to assure resolution. Mild improvement compared to yesterday''s study Electronically Signed: Osbaldo Vizcaino MD at 17:30 EST ,
[2024-08-18] MEDS: PureFlow B 3K Dialysis Soln 1 BAG 6 BAG PF (08:04)
[2024-08-18] MEDS: 0.9% Normal Saline 1,000 ML IV.SOLN. 1000 ML OPERA.SITE (08:04)
[2024-08-18 08:44] LABS: Pathologist Review Reviewed
--- NOTE | 2024-08-18 11:04 | CASEMGMT ---
ADAM KAHN into patient room. Pt lying in bed in no distress. Pt states she received dialysis at [facility] in [place] and wishes to continue with them. States has chair time already established on , . ADAM KAHN called [facility] to let them know Pt likely DC today and to resume dialysis on Wednesday. Pt denies any questions or concerns at this time.
--- NOTE | 2024-08-18 11:27 | PN.RENAL_ITS ---
Subjective Subjective Patient undergoing hemodialysis, denies any complaints. States feeling much better today. Denies SOB. Objective Data Objective Data Vital Signs: Vital Signs Temp Pulse Resp BP Pulse Ox O2 Del Method 98.8 F 81 16 144/65 H 96 Room Air 08/18/24 07:26 08/18/24 11:00 08/18/24 07:56 08/18/24 11:00 08/18/24 07:26 08/18/24 07:56 Oxygen Delivery Method Room Air Weight: 82.3 kg Body Mass Index (BMI) 30.9 Intake & Output: Intake and Output for Last 24 Hours 08/16/24 08/17/24 08/18/24 23:59 23:59 23:59 Intake Total 1005 / 1005 400 / 400 Balance 1005 / 1005 400 / 400 Lab / Micro Data 08/18/24 03:46 08/18/24 03:46 Labs: Laboratory Results - last 24 hr 08/17/24 07:34: Diff Path Review Reviewed 08/18/24 03:46: WBC 15.2 H, RBC 2.33 L, Hgb 7.3 L, Hct 22.3 L, MCV 95.7, MCH 31.3, MCHC 32.7, RDW Std Deviation 53.5 H, RDW Coeff of Arvind 15.3 H, Plt Count 218, MPV 8.9, Immature Gran % (Auto) 0.900, Neut % (Auto) 86.3 H, Lymph % (Auto) 6.7 L, [place] % (Auto) 5.4, Eos % (Auto) 0.6, Baso % (Auto) 0.1, Absolute Neuts (auto) 13.1 H, Absolute Lymphs (auto) 1.02, Nucleated RBC % 0, Sodium 130 L, Potassium 3.8, Chloride 102, Carbon Dioxide 19.0 L, Anion Gap 10, BUN 78 H, C reatinine 6.50 H, Estim Creat Clear Calc 8.12, Est GFR (MDRD) Af Amer 8 L, Est GFR (MDRD) Non-Af 7 L, BUN/Creatinine Ratio 12.0, Glucose 100, Calcium 8.1 L Micro: Microbiology 08/17/24 09:45 Urine, Clean Catch Urine Culture - Final Streptococcus group A 08/17/24 13:50 Sputum, Expectorated/Coughed Gram Stain - Final 08/17/24 13:50 Sputum, Expectorated/Coughed Respiratory Culture - Preliminary Beta streptococcus 08/17/24 09:45 Urine, Random Streptococcus pneumoniae Antigen (M - Final 08/17/24 09:45 Urine, Clean Catch Legionella Antigen - Final 08/17/24 07:25 Mucosa - Nose SARS-CoV-2, Influenza & RSV (PCR) - Final Physical Exam Narrative Alert and oriented x 3, no apparent distress S1, S2, RRR Lung sounds diminished bases; no rales, wheezing or rhonchi noted. On room air Abdomen soft, nontender Trace nonpitting edema bilateral lower legs Right upper arm AV fistula accessed for dialysis Assessment & Plan Assessment/Plan (1) End stage renal disease on dialysis: (2) Anemia of chronic disease: PLAN: Plan - ESRD on dialysis at [facility]. Outpatient HD schedule is MWF. Undergoing dialysis today over 4 hours and has tolerated 3.1L fluid removal with HD today. Next HD will be Wednesday - Anemia of chronic disease; patient receives long acting JOANN at kidney center. They have been updated with her recent hgb and patient will have labs followed at kidney center - possible discharge to home today.
[2024-08-18] MEDS: Metoprolol(XL)Succ 25 MG Tablet 12.5 MG PO (11:59)
[2024-08-18] MEDS: Aspirin E.C. 81 MG Tablet PO (12:00)
[2024-08-18] MEDS: Clopidogrel Bisulfate 75 MG Tablet PO (12:00)
[2024-08-18] MEDS: Pantoprazole Sodium 40 MG Tablet PO (12:00)
[2024-08-18] MEDS: Ranolazine 500 MG Tablet PO (12:00)
[2024-08-18] MEDS: Furosemide 40 MG Tablet PO (12:00)
[2024-08-18] MEDS: levETIRAcetam 500 MG Tablet PO (12:00)
[2024-08-18] MEDS: Montelukast 10 MG Tablet PO (12:00)
[2024-08-18] MEDS: Ceftriaxone 1 GM/50 ML BAG IV (12:27)
--- NOTE | 2024-08-18 12:29 | CASEMGMT ---
Met with patient to complete BROOKE form. BROOKE form explained to patient who voiced understanding and signed form. Original form placed in pt?s chart and copy provided to patient. Yadira Tomlin, Discharge Planning Asst
[2024-08-18] MEDS: Azithromycin 500 MG in 0.9% Normal Saline (250mL Bag) 250 ML 250 MG IV (13:05)
--- NOTE | 2024-08-18 14:49 | DCINST_ITS ---
Discharge Instructions Diet Discharge Diet: - (Resume previous diet) DC O2, CPAP, BIPAP needs Home O2 Discharge instructions: No Dressing / Incision Discharge Activity: Return to Normal Activity Weight Bearing Status: Full weight bearing Follow Up Care Test Results: Test results from this visit will be discussed in further detail at your follow- up appointment, if applicable. Discharge Plan Admission Admit Date/Time: 08/17/24 11:43 Primary Reason for Your Visit: left lower lobe pneumonia Attending Provider: Jesse Bolanos Primary Care Provider: Rigoberto Maher Consulting Providers: Daniele Walls Discharge Orders/Prescriptions Prescriptions: New cefuroxime axetil 500 mg tablet 500 mg PO .QOD Qty: 4 0RF Rx Instructions: start on 08/19/24 Continued clopidogrel 75 mg tablet 75 mg PO DAILY nitroglycerin 0.4 MG tablet 0.4 mg SUBLINGUAL Q5M PRN (Reason: Chest Pain) Patient Comments: chest pain aspirin 81 MG tablet 81 mg PO DAILYCM 0RF hydroxyzine HCl 25 MG tablet 25 mg PO Q6H PRN PRN (Reason: Itching) Patient Comments: take 1 tablet by mouth every 6 hours if needed omeprazole 40 MG capsule,delayed release(DR/EC) 40 mg PO BID furosemide 40 mg tablet 40 mg PO DAILY levetiracetam [Keppra] 500 mg tablet 500 mg PO BID Patient Comments: take 1 tablet by mouth twice a day potassium chloride 10 mEq tablet extended release 40 meq PO SUTUTHSA montelukast 10 mg tablet 10 mg PO DAILY levothyroxine 50 mcg tablet 75 mcg PO DAILY Patient Comments: take 1 tablet by mouth once daily metoprolol succinate 25 mg tablet extended release 24 hr 25 mg PO DAILY Patient Comments: take 1/2 tablet by mouth once daily ranolazine 500 mg tablet extended release 12 hr 500 mg PO BID Patient Comments: take 1 tablet by mouth twice a day hydrocodone-acetaminophen 5-325 mg tablet 1 tab PO Q8H PRN (Reason: pain) 2 Days Qty: 6 0RF albuterol sulfate 90 mcg/actuation HFA aerosol inhaler 1 puff inhalation Q6H PRN PRN (Reason: wheezing) rosuvastatin 40 mg tablet 40 mg PO DAILY Linzess 290 mcg capsule 290 mcg PO DAILY melatonin 10 mg capsule 30 mg PO QHS ondansetron 4 mg tablet,disintegrating 4 mg PO DAILY PRN (Reason: nausea and vomiting) multivitamin [Daily Multi-Vitamin] Tablet 1 tab PO DAILY Referrals / Follow Up: Rigoberto Maher MD [Primary Care Provider] - See Referral Note (In 2 weeks, you will need a repeat chest x-ray) Disposition Disposition (needs filled in before D/C Order can be placed): Home, Self Care
--- NOTE | 2024-08-18 15:04 | PCM.DC.SUM ---
Providers Date of Admission: 08/17/24 Date of Discharge: 08/18/24 Primary Care Physician: Dr. Rigoberto Maher MD Consultations 08/17/24 12:41 Consult: Nephrology Routine Consulting Provider: Dainele Walls Reason for Consult: ESRD EMERGENT Consult: No MD Notified: Yes Date Notified: 08/17/24 Time Notified: 11:52 Method of Notification: Verbal Reason For Visit: PNEUMONIA ESRD Diagnosis Discharge Diagnosis (1) End stage renal disease on dialysis: Status: Acute Code(s): N18.6 - End stage renal disease; Z99.2 - Dependence on renal dialysis (2) Anemia of chronic disease: Status: Chronic Code(s): D63.8 - Anemia in other chronic diseases classified elsewhere Plan 1. Community-acquired pneumonia left lower lobe-the patient was placed in observation status on MedSurg 3, she will be treated with IV Zithromax and Rocephin, aerosol treatments will be administered, sputum culture will be obtained if possible, urine will be checked for Legionella and strep antigens, patient's COVID and flu PCR was negative, labs will be monitored, chest x-ray will be repeated tomorrow #2 urinary tract infection-again patient will be placed on Rocephin, urine culture was obtained in the ER #3 end-stage renal disease requiring dialysis-nephrology was consulted, patient will undergo dialysis #4 essential hypertension-patient will remain on her present medication #5 coronary artery disease-patient is on aspirin and clopidogrel Total clinical time spent by myself addressing the patient's medical issues, reviewing all of his data, and collaborating with patient's care team: 75 minutes Medications at Discharge Home Medications nitroglycerin 0.4 mg sublingual tablet 0.4 mg sublingual Q5M PRN Chest Pain 06/19/15 aspirin 81 mg tablet,delayed release 81 mg PO DAILYCM 11/05/17 hydroxyzine HCl 25 mg tablet 25 mg PO Q6H PRN PRN Itching 02/10/19 omeprazole 40 mg capsule,delayed release 40 mg PO BID GERD 04/11/19 clopidogrel 75 mg tablet 75 mg PO DAILY 10/10/21 furosemide 40 mg tablet 40 mg PO DAILY 10/17/21 levetiracetam 500 mg tablet (Keppra) 500 mg PO BID 10/17/21 montelukast 10 mg tablet 10 mg PO DAILY 10/17/21 potassium chloride 10 mEq tablet,extended release 40 meq PO SUTUTHSA 10/17/21 levothyroxine 50 mcg tablet 75 mcg PO DAILY thyroid 10/27/21 metoprolol succinate 25 mg tablet,extended release 24 hr 25 mg PO DAILY heart 10/27/21 ranolazine 500 mg tablet,extended release,12 hr 500 mg PO BID heart 10/27/21 hydrocodone-acetaminophen 5-325mg 5mg-325mg 1 tab PO Q8H PRN pain 2 days #6 tabs 08/06/22 albuterol sulfate 90 mcg/actuation aerosol inhaler 1 puff inhalation Q6H PRN PRN wheezing 08/17/24 linaclotide 290 mcg capsule (Linzess) 290 mcg PO DAILY 08/17/24 melatonin 10 mg capsule 30 mg PO QHS 08/17/24 multivitamin (Daily Multi-Vitamin tablet) 1 tab PO DAILY 08/17/24 ondansetron 4 mg disintegrating tablet 4 mg PO DAILY PRN nausea and vomiting 08/17/24 rosuvastatin 40 mg tablet 40 mg PO DAILY 08/17/24 cefuroxime axetil 500 mg tablet 500 mg PO .QOD #4 tabs 08/18/24 Hospital Course Operations None Procedures Dialysis Summary of Care Provided Minutes Spent on Discharge: 31 Hospital Course: 74-year-old white female seen in the emergency room [facility] after being sent in from a local dialysis center due to complaints of cough malaise and nausea. Patient had symptoms for approximately 2 weeks prior. Workup in the emergency room included a CBC which showed elevated white blood cell count of 22.7, hemoglobin was 8.6, creatinine was 6.01 and BUN was 67. Urinalysis showed 25-50 white blood cells and +1 bacteria, leukocyte esterase was 500. Chest x-ray showed a left lower lobe infiltrate indicating pneumonia or atelectasis-with her white count elevation it was felt she did have community-acquired pneumonia. Patient was also felt to have acute cystitis. Patient was placed in observation status on MedSurg 3, she was seen by nephrology and underwent dialysis, the next day her white blood cell count improved and it was felt that she was stable for discharge home. On 08/18/2024, patient was seen and examined: On examination she appeared in good health and spirits, she does not appear to be in any distress. Vital signs as documented. Skin warm and dry and without overt rashes. Neck without JVD, thyroid appears normal, trachea is midline, neck is supple. Lungs clear, normal air movement was noted. Heart exam notable for regular rhythm, normal sounds and absence of murmurs, rubs or gallops. Abdomen unremarkable and without evidence of organomegaly, masses, or abdominal aortic enlargement, bowel sounds are present in all 4 quadrants, no abdominal tenderness was noted. Extremities nonedematous, no cyanosis was noted, no clubbing was noted. Neuro: Cranial nerves II through XII are grossly intact, no focal motor deficits were noted, sensation to light touch and pinprick is intact, motor exam 5/5 throughout. Psych: Patient is alert and oriented x3, she does not appear anxious or depressed, she does not appear agitated. Patient was discharged home in stable condition on 08/18/2024 Weight / BMI Weight Weight: 79 kg Body Mass Index (BMI) 29.7 ABG / Lab / Microbiology Data 08/18/24 03:46 08/18/24 03:46 Laboratory: Laboratory Results - last 24 hr 08/17/24 07:34: Diff Path Review Reviewed 08/18/24 03:46: WBC 15.2 H, RBC 2.33 L, Hgb 7.3 L, Hct 22.3 L, MCV 95.7, MCH 31.3, MCHC 32.7, RDW Std Deviation 53.5 H, RDW Coeff of Arvind 15.3 H, Plt Count 218, MPV 8.9, Immature Gran % (Auto) 0.900, Neut % (Auto) 86.3 H, Lymph % (Auto) 6.7 L, [place] % (Auto) 5.4, Eos % (Auto) 0.6, Baso % (Auto) 0.1, Absolute Neuts (auto) 13.1 H, Absolute Lymphs (auto) 1.02, Nucleated RBC % 0, Sodium 130 L, Potassium 3.8, Chloride 102, Carbon Dioxide 19.0 L, Anion Gap 10, BUN 78 H, Creatinine 6.50 H, Estim Creat Clear Calc 8.12, Est GFR (MDRD) Af Amer 8 L, Est GFR (MDRD) Non-Af 7 L, BUN/Creatinine Ratio 12.0, Glucose 100, Calcium 8.1 L Microbiology: Microbiology 08/17/24 08:45 Blood Culture (Wb) - Anticubital Left Blood Culture - Final No growth in 5 days. 08/17/24 08:59 Blood Culture (Wb) - Anticubital Left Blood Culture - Final No growth in 5 days. 08/17/24 13:50 Sputum, Expectorated/Coughed Gram Stain - Final 08/17/24 13:50 Sputum, Expectorated/Coughed Respiratory Culture - Final Streptococcus group A 08/17/24 09:45 Urine, Clean Catch Urine Culture - Final Streptococcus group A 08/17/24 09:45 Urine, Random Streptococcus pneumoniae Antigen (M - Final 08/17/24 09:45 Urine, Clean Catch Legionella Antigen - Final 08/17/24 07:25 Mucosa - Nose SARS-CoV-2, Influenza & RSV (PCR) - Final D/C Instructions Discharge Diet: - (Resume previous diet) Weight Bearing Status: Full weight bearing DC O2, CPAP, BIPAP Needs Home O2 Discharge instructions: No Meaningful Use Info Meaningful Use Meaningful Use Diagnoses (Choose all that apply): None applicable Ischemic Stroke Statin Dosing Therapy Reference: STATIN DOSE THERAPY REFERENCE: * Patients > 75 years receive moderate or high dose statin therapy. * Patients 75 years or YOUNGER should receive HIGH intensity statin dose unless contraindicated. You will be required to document reason for non-treatment if statin daily dose does not meet guidelines. HIGH DOSE STATIN THERAPY DAILY Atorvastatin > than or = to 40 mg Rosuvastatin > than or = to 20 mg Amlodipine + Atorvastatin > than or = to 2.5/40 mg Ezetimibe + Simvastatin 10/80 mg Simvastatin 80mg Discharge Plan Admission Admit Date/Time: 08/17/24 11:43 Primary Reason for Your Visit: left lower lobe pneumonia Attending Provider: Jesse Bolanos Primary Care Provider: Rigoberto Maher Consulting Providers: Daniele Walls Discharge Orders/Prescriptions Prescriptions: New cefuroxime axetil 500 mg tablet 500 mg PO .QOD Qty: 4 0RF Rx Instructions: start on 08/19/24 Continued clopidogrel 75 mg tablet 75 mg PO DAILY nitroglycerin 0.4 MG tablet 0.4 mg SUBLINGUAL Q5M PRN (Reason: Chest Pain) Patient Comments: chest pain aspirin 81 MG tablet 81 mg PO DAILYCM 0RF hydroxyzine HCl 25 MG tablet 25 mg PO Q6H PRN PRN (Reason: Itching) Patient Comments: take 1 tablet by mouth every 6 hours if needed omeprazole 40 MG capsule,delayed release(DR/EC) 40 mg PO BID furosemide 40 mg tablet 40 mg PO DAILY levetiracetam [Keppra] 500 mg tablet 500 mg PO BID Patient Comments: take 1 tablet by mouth twice a day potassium chloride 10 mEq tablet extended release 40 meq PO SUTUTHSA montelukast 10 mg tablet 10 mg PO DAILY levothyroxine 50 mcg tablet 75 mcg PO DAILY Patient Comments: take 1 tablet by mouth once daily metoprolol succinate 25 mg tablet extended release 24 hr 25 mg PO DAILY Patient Comments: take 1/2 tablet by mouth once daily ranolazine 500 mg tablet extended release 12 hr 500 mg PO BID Patient Comments: take 1 tablet by mouth twice a day hydrocodone-acetaminophen 5-325 mg tablet 1 tab PO Q8H PRN (Reason: pain) 2 Days Qty: 6 0RF albuterol sulfate 90 mcg/actuation HFA aerosol inhaler 1 puff inhalation Q6H PRN PRN (Reason: wheezing) rosuvastatin 40 mg tablet 40 mg PO DAILY Linzess 290 mcg capsule 290 mcg PO DAILY melatonin 10 mg capsule 30 mg PO QHS ondansetron 4 mg tablet,disintegrating 4 mg PO DAILY PRN (Reason: nausea and vomiting) multivitamin [Daily Multi-Vitamin] Tablet 1 tab PO DAILY Referrals / Follow Up: Rigoberto Maher MD [Primary Care Provider] - See Referral Note (In 2 weeks, you will need a repeat chest x-ray) Disposition Disposition (needs filled in before D/C Order can be placed): Home, Self Care Charges/Coding Visit Charges Inpatient E&M: 75566 Disch Hosp >30min
== END 2024-08-18 15:46 | disposition home or self-care (01) ==
LOC: ED 11:17 → MS3 11:57
PROVIDERS: Admitting Provider Internal Medicine; Emergency Provider Emergency Medicine; PCP Family Medicine; Visit Provider Internal Medicine
DX: J18.9 Pneumonia, unspecified organism (principal); I13.2 Hypertensive heart and chronic kidney disease with heart failure and with stage 5 chronic kidney disease, or end stage renal disease; N18.6 End stage renal disease; I50.9 Heart failure, unspecified; I25.10 Atherosclerotic heart disease of native coronary artery without angina pectoris; Z99.2 Dependence on renal dialysis; Z79.890 Hormone replacement therapy; R53.81 Other malaise; D63.8 Anemia in other chronic diseases classified elsewhere; Z79.82 Long term (current) use of aspirin; E78.00 Pure hypercholesterolemia, unspecified; R53.1 Weakness; Z79.02 Long term (current) use of antithrombotics/antiplatelets; Z87.891 Personal history of nicotine dependence; N39.0 Urinary tract infection, site not specified; K21.9 Gastro-esophageal reflux disease without esophagitis; Z86.718 Personal history of other venous thrombosis and embolism; E07.9 Disorder of thyroid, unspecified; Z79.899 Other long term (current) drug therapy; R09.02 Hypoxemia
CPT/HCPCS: 36415; 71045; 71046; 80048; 81001; 83605; 84100; 85025; 85610; 85730; 87040; 87070; 87077; 87086; 87088; 87205; 87449; 87631; 90937; 93005; 94640; 96365; 96366; 96367; 99221; 99284; A4216; G0257; G0378

== ENCOUNTER 2024-09-07 08:49 | Outpatient (CLI) | payer MEDICARE, OTHER, SELFPAY ==
[2024-09-07 09:01] VITALS: BP 127/43; PULSE 84; RESP 16; TEMP 35.9; O2SAT 98
[2024-09-07 09:53] VITALS: BP 124/40; PULSE 75; RESP 16; TEMP 36.1
[2024-09-07 10:57] VITALS: BP 132/44; PULSE 71; RESP 16; TEMP 36.2; O2SAT 99
[2024-09-07 11:56] VITALS: BP 124/41; PULSE 74; RESP 18; TEMP 36.2
== END 2024-09-07 23:59 | disposition home or self-care (01) ==
LOC: MEDOUTP 08:49
PROVIDERS: PCP Family Medicine; Referring Provider Student in an Organized Health Care Education/Training Program; Visit Provider Student in an Organized Health Care Education/Training Program
DX: D64.9 Anemia, unspecified (principal)
CPT/HCPCS: 36415; 36430; 86850; 86900; 86901; P9016; A4216

== ENCOUNTER → 2024-12-05 | Outpatient (CLI) | payer MEDICARE, OTHER, SELFPAY ==
--- NOTE | 2024-12-05 08:41 | ART_ITS ---
Reason For Study Reason For Study: Atherosclerosis Procedure A bilateral lower extremity continuous wave Doppler with analog waveform analysis and ankle brachial indexes. Left Segmental Pressures Left brachial= 125mmHg. Left posterior tibial artery = >254mmHg. Left dorsalis pedis artery = 102mmHg. Left digit = 52 mmHg. The left thigh waveforms are triphasic. The left calf waveforms are triphasic. Right Segmental Pressures Right posterior tibial artery = >254mmHg. Right dorsalis pedis artery = >254mmHg. Right digit = 64 mmHg. The right dorsalis pedis waveforms are triphasic. The right posterior tibial artery waveforms are triphasic. Indices The right ankle brachial index by the dorsalis pedis is NC. The right ankle brachial index by the posterior tibial artery is NC. The right digital-brachial index is 0.51. The left ankle brachial index by the dorsalis pedis is 0.82. The left ankle brachial index by the posterior tibial artery is NC. The left digital-brachial index is 0.42. VL/Ankle Brachial Index Interpretation Summary Bilateral NC but nor,mal waveform and triphasic flow. Ordering Physician: Alden Hernández Referring Physician: Rigoberto Maher Performed By: Maddy Shipman RVT
--- NOTE | 2024-12-05 08:41 | AAVD_ITS ---
Reason For Study Reason For Study: Atherosclerosis Aorta Measurements Aorta Doppler Measurements Proximal aorta measures1.26 x 1.28cm. in cross-sectional Peak systolic flow velocities within the proximal aorta axis. measure 54.2 cm/sec. Proximal aorta measures1.23cm. in longitudinal axis. Peak systolic flow velocities within the mid aorta measure Mid aorta measures1.73 x 1.71cm. in cross-sectional axis. 66.9 cm/sec. Mid aorta measures1.70cm. in longitudinal axis. Peak systolic flow velocities within the distal aorta Distal aorta measures1.44 x 1.42cm. in cross-sectional axis.measure 74.1 cm/sec. Distal aorta measures1.40cm. in longitudinal axis. Left Iliac Artery Left iliac artery measures 0.73 x 0.71 cm. in the cross-sectional axis. Left iliac artery measures 0.75 cm. in the longitudinal axis. Peak systolic velocity in the left iliac artery measures 204.3 cm/sec. Right Iliac Artery Right iliac artery measures 0.84 x 0.86 cm. in the cross-sectional axis. Right iliac artery measures 0.75 cm. in the longitudinal axis. Peak systolic velocity in the right iliac artery measures 66.9 cm/sec. Procedure Aorta IVC Iliac vasculature or bypass grafts [id number]. Technically difficult study due to bowel gas. Exam performed in department. VL/Abd Aortic/IVC Duplex scan Interpretation Summary No aortic anurysm. Mild left SHANIKA stenosis otherwise normal. Ordering Physician: Alden Hernández Referring Physician: Rigoberto Maher Performed By: Maddy Shipman RVT
== END | disposition home or self-care (01) ==
LOC: CVS 08:35
PROVIDERS: PCP Family Medicine; Referring Provider Surgery Vascular Surgery; Visit Provider Surgery Vascular Surgery
DX: I74.09 Other arterial embolism and thrombosis of abdominal aorta (principal); I70.213 Atherosclerosis of native arteries of extremities with intermittent claudication, bilateral legs
CPT/HCPCS: 93922; 93978

== ENCOUNTER 2025-04-22 20:27 | Emergency (ER) | payer MEDICARE, OTHER, SELFPAY ==
[2025-04-22] VITALS (16 sets, daily range): BP systolic 48–134; BP diastolic 23–76; PULSE 37–70; RESP 10–26; TEMP 33.8–36.1; O2SAT 35–100; BMI 34.0
--- NOTE | 2025-04-22 20:36 | EKG12_ITS ---
Test Reason : Blood Pressure : */* mmHG Vent. Rate : 31 BPM Atrial Rate : * BPM P-R Int : * ms QRS Dur : 110 ms QT Int : 744 ms P-R-T Axes : * -7 212 degrees QTcB Int : 534 ms Critical Test Result: Low HR Junctional bradycardia Low voltage QRS Cannot rule out Anterior infarct , age undetermined ST & T wave abnormality, consider inferolateral ischemia Prolonged QT Abnormal ECG Confirmed by Gunnar Lawler ([id number]), technical writer and editor CHARLETTE WOLFE ([id number]) on 04/24/2025 10:42:59 AM Referred By: Confirmed By: Gunnar Lawler
[2025-04-22 20:48] LABS: Hematocrit 30.2 % (37-47); Hemoglobin 9.1 g/dL (12.0-15.0); Immature Granulocytes Count 0.180 X10^3/uL (0.0-0.0); Mean Corp Hgb Conc 30.1 g/dL (32-36); Mean Corpuscular Volume 107.5 fL (81-99); Mean Platelet Vol. 10.4 fl (6.2-12.0); NRBC Flagged by Analyzer 1.3 % (0-5); POSITIVE MORPHOLOGY YES; Platelet Count 410 K/mm3 (150-450); RBC Distribution Width CV 19.9 % (11.6-14.6); RBC Distribution Width SD 73.5 fl (35.1-43.9); Red Blood Count 2.81 M/mm3 (4.2-5.4); White Blood Count 12.4 K/mm3 (4.4-11.0)
[2025-04-22 20:54] LABS: Differential Indicated SCAN CRITERIA MET
--- OUTSIDE RECORDS SUMMARY | 2025-04-22 20:56 | XMS RPT_ITS | CCD ---
Author Organization [facility] CliniSyri Care Team Providers Care Retail Specialist Name Role Phone System, Provider Not In Unavailable Unavaila GILBERTO Villasenor Unavailable Unavail able SYSTEM, PROVIDER NOT IN Unavailable Unavaila ble BELL MAHER Unavailable Unavailable SABOTAFAUSTO Unavailable Unavailable SABFAUSTO MORRISON Unavailable Unavailable BELL MAHER Unavailable Unavailable STACEY CERRATO Unavailable Unavailable STACEY CERRATO M Unavailable Unavailable SAQIB STACEY M Unavailable Unavailable SAQIB STACEY M Unavailable Unavailable DENISE RODRIGEZ Unavailable Unavailable BRIEN STEARNS M.D. Unavailable Unavailabl e TYRONE MAMADOU A Unavailable Unavailable TYRONE, MAMADOU A Unavailable Unavailable CURRENT, LUIS MIGUEL Correia Unavailable Unavailable HABERBERGER, JOSEPH M Admitting Unavailable HABERBERGER, JOSEPH M Attending Unavailable HABERBERGER, JOSEPH M Primary Care Unavailable System, Provider Not In Primary Care Provider Un available BELL MAHER MD Primary Care Physician Lencho PT, Marv Unavailable Unavailable Dr. Bell Maher Primary Care Provider Dr. Fausto Cheatham Attending Provider Dr. Melissa Currie Referring Provider Dr. Tim Serrano Attending Provider Dr. Fausto Cheatham Referring Provider Dr. Fausto Cheatham Other Provider Cedrick SANDERS PATravis Perales Attending Provider Dr. Bell Maher Referring Provider Bell Maher MD Primary Care Provider Angelita Lamas MD Unavailable Von JAEMS, Lito Unavailable Dr. Bell Maher Primary Care Provider Dr. Bell Maher Referring Provider GENEVA Barba Attending Provider Cebul, Dr. Fausto Burgess Attending Provider Cebul, Dr. Fausto Burgess Referring Provider Cebul, Dr. Fausto Burgess Other Provider Gunnar JAMES, Bell Bae Primary Care Provider Angelita Lamas MD Unavailable Von JAMES, Lito Unavailable [phone] Dr. Bell Maher Primary Care Provider GENEVA Barba Attending Provider Cebul, Dr. Fausto Burgess Referring Provider Cebul, Dr. Fausto Burgess Attending Provider Cebul, Dr. Fausto Burgess Other Provider Dr. Mg Moore Other Provider Dr. Bell Maher Referring Provider Dr. Bell Maher Primary Care Provider Cebul, Dr. Fausto Burgess Attending Provider Cebul, Dr. Fausto Burgess Referring Provider Cebul, Dr. Fausto Burgess Other Provider Dr. Bell Maher Referring Provider [phone] GENEVA Barba Attending Provider [phone] Bell Maher MD Primary Care Provider Angelita Lamas MD Unavailable Von JAMES, Lito Unavailable [phone] Bell Maher MD Primary Care Provider Angelita Lamas MD Unavailable BELL MAHER MD Attending Unavailable BELL MAHER MD Primary Care Unavailable JEANIE SEGALN-EQUITY RESEARCH ANALYST, OLIVER L Attending Angela MAHER MD, BELL Burgess Primary Care Unavailable PEÑA RODRIGEZ Attending Unavailable GUNNAR JAMES, BELL Burgess Primary Care Unavailable BELL MAHER MD Attending Unavailable GUNNAR JAMES, BELL Burgess Primary Care Unavailable BELL MAHER MD Attending Unavailable BELL MAHER MD Primary Care Unavailable BELL MAHER MD Attending Unavailable GUNNAR JAMES, BELL Burgess Primary Care Unavailable GUNNAR JAMES, BELL Burgess Attending Unavailable GUNNAR JAMES, BELL Burgess Primary Care Unavailable BELL MAHER MD Attending Unavailable BELL MAHER MD Primary Care Unavailable PAYAL TELLO MD Attending Unavailable BELL MAHER MD Primary Care Unavailable BELL MAHER MD Attending Unavailable GUNNAR JAMES, BELL Burgess Primary Care Unavailable MARNI JAMES, DR BERNADINE Arnett Attending Angela MAHER MD, BELL Burgess Primary Care Unavailable Gunnar JAMES, Dr. Franklin Primary Care Provider Dr. Ze Sterling DO Emergency Provider Dr. Jesse Bolanos DO Admit Provider Dr. Jesse Bolanos DO Attending Provider Dr. Daniele Walls MD Other Provider Luis Miguel HAMMOND, Dr. Molina Other Provider [phone] Kush AJMES, Dr. Gary Attending Provide r Dr. Melissa Currie MD Referring Provide r Dr. Alden Hernández MD Attending Provider Dr. Alden Hernández MD Referring Provider Jesse Bolanos Attending Unavailable Jesse Bolanos Admitting Unavailable Bell Maher Primary Care Unavailable Ten Wallsprakajaime Consulting Unavailable Jesse Bolanos Consulting Unavailable Daniele Walls Consulting Unavailable Jesse Bolanos Attending Unavailable Gunnar Bell Primary Care Unavailable Jesse Bolanos Admitting Unavailable Gunnar, Bell Primary Care Unavailable Brien Sarabia Attending Unavailable Brien Sarabia Referring Unavailable Gunnar, Bell Primary Care Unavailable Alden Hernández Attending Unavailable Alden Hernández Referring Unavailable Melissa Currie Attending Unavaila Melissa Stewart Referring Unavaila Bell Uriarte Primary Care Unavailable KOLETI, TRENA Admitting Unavailable TRENA WEINSTEIN Attending Unavailable RUFUS TORRES III (HIST) Referring Unavailable BELL MAHER Primary Care Unavailable DARCIE MCDONALD Consulting Unavailable KOLETI, TRENA Admitting Unavailable KINDRA WEINSTEINA Attending Unavailable KOLETI, TRENA Referring Unavailable BELL MAHER Primary Care Unavailable BELL MAHER MD Attending Unavailable BELL MAHER MD Primary Care Unavailable BELL MAHER MD Attending Unavailable BELL MAHER MD Primary Care Unavailable BELL MAHER MD Primary Care Unavailable BELL MAHER MD Attending Unavailable BELL MAHER MD Primary Care Unavailable BELL MAHER MD Attending Unavailable BELL MAHER MD Primary Care Unavailable BELL MAHER MD Attending Unavailable BELL MAHER MD Primary Care Unavailable BELL MAHER MD Attending Unavailable BELL MAHER MD Primary Care Unavailable BELL MAHER MD Attending Unavailable BELL MAHER MD Primary Care Unavailable BELL MAHER MD Attending Unavailable BELL MAHER MD Primary Care Unavailable PEÑA RODRIGEZ MD Attending Unavailable BELL MAHER MD Referring Unavailable BRIANRUFUS ROSALES Admitting Unavailable BRIANRUFUS ROSALES Primary Care Unavailable RUFUS TORRES Attending Unavailable BELL MAHER MD Consulting Unavailable PROVIDER, UNKNOWN Consulting Unavailable PROVIDER, UNKNOWN Consulting Unavailable BELL MAHER MD Referring Unavailable BRIANRUFUS ROSALES Primary Care Unavailable RUFUS TORRES Attending Unavailable RUFUS TORRES Admitting Unavailable BELL MAHER MD Consulting Unavailable PROVIDER, UNKNOWN Consulting Unavailable PROVIDER, UNKNOWN Consulting Unavailable MELISSA CURRIE MD Attending Unava MELISSA Davila MD Admitting Unava MEILSSA Davila MD Primary Care Unava BELL Serna MD Consulting Unavailable PROVIDER, UNKNOWN Consulting Unavailable PROVIDER, UNKNOWN Consulting Unavailable BELL MAHER MD Referring Unavailable RUFUS TORRES Primary Care Unavailable RUFUS TORRES Attending Unavailable RUFUS TORRES Admitting Unavailable BELL MAHER MD Consulting Unavailable PROVIDER, UNKNOWN Consulting Unavailable PROVIDER, UNKNOWN Consulting Unavailable STACEY RODRIGUEZ MD Attending Unavailable BELL MAHER MD Primary Care Unavailable BELL MAHER MD Primary Care Unavailable BELL MAHER MD Attending Unavailable STACEY RODRIGUEZ MD Attending Unavailable BELL MAHER MD Primary Care Unavailable BELL MAHER MD Primary Care Unavailable RC MACIAS MD Attending Unavailable VARGHESE JAMES, CHESTER Admitting Unavailable VARGHESE JAMES, CHESTER Attending Unavailable BELL MAHER MD Primary Care Unavailable BELL MAHER MD Primary Care Unavailable BREANNA JAMES, LUIS MIGUEL [place] Consulting Unavailable PEÑA RODRIGEZ MD Attending Unavailable HERVE MINOR MD Admitting Unavailable JASON MCNEIL DO Consulting Unavailable PITER MADISON MD Consulting Unavailable SRIRAM JAMES, ONEAL Admitting Unavailable SRIRAM JAMES, ONEAL Attending Unavailable BELL MAHER MD Primary Care Unavailable DR FRED LOPEZ MD Consulting Unavailab ROSY Tovar MD Consulting Unavaila RIGO Kahn MD Consulting Unavailable LUIS MIGUEL CARLOS MD Consulting Unavailable BELL MAHER MD Primary Care Unavailable SAUNDRA SALAZAR-CT, [place] Attending Angela triana Allergies Allergy Classification Reported Allergen(s) Allergy Type Date of Onset Reaction(s) Facility (15 sources) Penicillins; Translations: [PENICILLINS] Propensity to adverse reactions to drug 02-19-20 06 Palpitations [facility] Comment on above: PASSED OUT (2 sources) colesevelam Drug Allergy [facility] Repository (2 sources) Nitrofurantoin Drug Allergy [facility] Rep[facility] (10 sources) Penicillin; Translations: [penicillin] Drug Allergy SYNCOPE [facility] Repository (20 sources) colesevelam; Translations: [colesevelam] Drug Allergy 12-16-19 19 Unknown (qualifier value), Unknown [facility] (20 sources) metOLazone; Translations: [metolazone] Drug Allergy 12-16-19 19 Unknown (qualifier value), Unknown [facility] (20 sources) NITROFURANTOIN, MACROCRYSTALS / Nitrofurantoin, Monohydrate; Translations: [nitrofurantoin] Drug Allergy 02-19-20 06 Unknown (qualifier value) [facility] (20 sources) Pravastatin; Translations: [pravastatin] Drug Allergy 12-16-19 19 Unknown [facility] (20 sources) Simvastatin; Translations: [simvastatin] Drug Allergy Liver [facility] (20 sources) traMADol; Translations: [tramadol] Drug Allergy 04-11-20 19 GI Upset [facility] (12 sources) colesevelam; Translations: [colesevelam HCl] Drug Allergy 01-20-20 22 Unknown [facility] (12 sources) Pravastatin; Translations: [pravastatin sodium] Drug Allergy 01-20-20 22 [facility] (12 sources) nitrofurantoin macrocrystalline; Translations: [nitrofurantoin macrocrystalline] Allergy to substance 01-20-20 [facility] (12 sources) Hydrocortisone; Translations: [HYDROCORTISONE] Drug Allergy 11-07-19 21 Unknown [facility] (11 sources) Nitrofurantoin Drug Allergy 12-16-19 19 [facility] (11 sources) Penicillins Drug Allergy 02-19-20 06 Other: See Comments, Unknown [facility] (12 sources) Sulfonamides (Antibiotic); Translations: [SULFA (SULFONAMIDE ANTIBIOTICS)] Propensity to adverse reactions to drug 06-27-20 12 [facility] Work Phone: (1 source) metOLazone Drug Allergy 09-07-19 [facility] (1 source) Penicillins Drug allergy (disorder) 09-07-19 [facility] (1 source) traMADol Drug Allergy 09-07-19 [facility] (1 source) NITROFURANTOIN MONOHYD/M-CRYST; Translations: [NITROFURANTOIN MONOHYD/M-CRYST] Propensity to adverse reactions to drug (disorder) 02-19-20 06 [facility] Repository (1 source) colesevelam Drug Allergy [facility] Repository (1 source) metOLazone Drug Allergy [facility] Repository (1 source) metOLazone Drug Allergy [facility] Rep[facility] (1 source) Nitrofurantoin Drug Allergy [facility] Rep[facility] (1 source) Pravastatin Drug Allergy [facility] Rep[facility] (1 source) Simvastatin Drug Allergy [facility] (1 source) traMADol Drug Allergy [facility] Rep[facility] (1 source) (+) MRSA WOUND; Translations: [(+) MRSA WOUND] Propensity to adverse reactions (disorder) [facility] Repository Medications Current Medications Medication Drug Class(es) Dates Sig (Normalized) Sig (Original) [id number] 200 actuat albuterol 0.09 mg/actuat metered dose inhaler (20 sources) beta2-Adrenergic Agonist Start: 08-17-2024 Albuterol Sulfate 90 mcg/actuation HFA aerosol inhaler Active 1 NMA INHALATION EVERY 6 HOURS NEEDED as needed for wheezing August 17, 2024 1:00am Start: 07-28-2024 take 1 dose by inhal ation every six hours as needed albuterol 2.5 mg/3 mL (0.083%) inhalation solution Dose : 2.5 mg = 3 mL, Inhalation, q6h, PRN for wheezing, # 60 EA, 0 Refill(s), Pharmacy: [facility] #[id number], 162, cm, 07/28/24 10:40:00 EST, Height, kg, 07/28/24 10:40:00 EST, Dosing Weight Start Date: 07/28/24 Status: Ordered Medication Dispense Status: Completed Quantity: 60.0 Unit: EA Total Allowed Fills: 1 Fills Dispensed: 0 Start: 01-01-2020 take 1-2 puff(s) by inhalation every four hours as needed ALBUTEROL 90 MCG/ACTUATION AEROSOL INHALER Inhale 1-2 Puffs as instructed every 4 hours as needed. SHAKE WELL BEFORE USING 0 01/01/2020 Active Start: 2016 take 1 dose by inhal ation every six hours as needed albuterol 2.5 mg/3 mL (0.083%) inhalation solution Dose : 2.5 mg = 3 mL, Inhalation, q6h, PRN for wheezing, 0 Refill(s) Start Date: 05/22/16 Status: Ordered Start: 2016 take 1 dose by inhal ation every six hours as needed albuterol 2.5 mg/3 mL (0.083%) inhalation solution Dose : 2.5 mg = 3 mL, Inhalation, q6h, PRN for wheezing, 0 Refill(s) Start Date: 05/22/16 Status: Ordered Start: 05-01-2016 End: 03-11-2019 Albuterol Sulfate 1 INHALER inhaler Discontinued 1 NMA INHALATION EVERY 4 HOURS NEEDED as needed for Sob &/Or Wheezing May 01, 2016 12:00am March 11, 2019 12:35pm Start: 05-01-2016 End: 03-11-2019 take 1 puff(s) by inhalation every four hours as needed Albuterol Sulfate Discontinued 1 PUFF INHALATION EVERY 4 HOURS NEEDED May 01, 2016 12:00am March 11, 2019 12:35pm albuterol (PROVE NTIL) 2.5 mg /3 mL (0.083 %) nebulizer solution Use 2.5 mg via nebulizer one time only. 0 Active take 2.5 mg by inhal ation every six hours as needed albuterol (PROVENTIL) 2.5 mg /3 mL (0.083 %) nebulizer solution Take 2.5 mg by nebulization every 6 (six) hours as needed for wheezing. 0 Active Comment on above: Inhale 1-2 Puffs as instructed every 4 hours as needed. SHAKE WELL BEFORE USING Use 2.5 mg via nebul izer one time only. amiodarone hydrochloride 200 mg oral tablet (1 source) Antiarrhythmic Start: 04-12-20 amiodarone 200 mg oral tablet Dose : 200 mg = 1 tab(s), Oral, qDay, # 30 tab(s), 1 Refill(s), Pharmacy: [facility] #[facility], 162.6, cm, 04/04/25 11:58:00 EDT, Height, kg, 04/11/25 13:34:00 EDT, Dosing Weight Start Date: 04/12/25 Status: Ordered Medication Dispense Status: Completed Quantity: 30.0 Unit: tab(s) Total Allowed Fills: 2 Fills Dispensed: 0 amLODIPine 5 mg oral tablet (20 sources) Dihydropyridine Calcium Channel Manish Start: 03-04-20 take 2.5 mg by mouth once daily Amlodipine Active 2.5 MG PO DAILY March 04, 2022 2:46pm Start: 02-17-2022 amLODIPine 2.5 mg oral tablet Dose : 2.5 mg = 1 tab(s), Oral, qDay, # 30 tab(s), 3 Refill(s), [facility] [address] 162.6, cm, 02/17/22 13:01:00 EDT, Height Start Date: 02/17/22 Status: Ordered Start: 07-23-2021 End: 03-04-2022 take 1 tablet by mouth once daily Amlodipine 5 mg tablet Discontinued 5 mg PO DAILY October 17, 2021 1:00am March 04, 2022 2:55pm Start: 04-16-2021 amLODIPine 5 m g oral tablet Dose : 5 mg = 1 tab(s), Oral, qDay, # 30 tab(s), 5 Refill(s), Pharmacy: [facility] [address] Elevated blood pressure reading CAD (coronary artery disease), 162, cm, 04/16/21 16:29:00 EDT, Height, kg, 04/16/21 16:26:00 EDT, Dosing Weight Start Date: 04/16/21 Status: Ordered aspirin 81 mg chewable tablet (20 sources) Platelet Aggregation Inhibitor, Nonsteroidal Anti-inflammatory Drug Start: 04-12-2025 aspirin 81 mg ora l tablet, chewable Dose : 81 mg = 1 tab(s), Oral, Daily, # 90 tab(s), 3 Refill(s), Pharmacy: [facility] #30, 162.6, cm, 04/04/25 11:58:00 EDT, Height, kg, 04/11/25 13:34:00 EDT, Dosing Weight Start Date: 04/12/25 Status: Ordered Medication Dispense Status: Completed Quantity: 90.0 Unit: tab(s) Total Allowed Fills: 4 Fills Dispensed: 0 Start: 07-23-2021 aspirin 81 mg oral delayed release tablet Dose : 81 mg = 1 tab(s), Oral, qDay, # 90 tab(s), 3 Refill(s), [facility] [address] 162.6, cm, 06/12/21 11:18:00 EDT, Height, kg, 06/12/21 11:18:00 EDT, Dosing Weight Start Date: 07/23/21 Status: Ordered Start: 04-25-2021 End: 04-20-2022 aspirin 81 mg oral delayed r elease tablet Dose : 81 mg = 1 tab(s), Oral, qDay, # 30 tab(s), 11 Refill(s), [facility] [address] 162.6, cm, 04/23/21 19:30:00 EDT, Height, kg, 04/25/21 6:53:00 EDT, Dosing Weight Start Date: 04/25/21 Stop Date: 04/20/22 Status: Ordered Start: 11-05-2017 aspirin 81 mg oral delayed release tablet Dose : 81 mg = 1 tab(s), Oral, qDay, # 90 tab(s), 3 Refill(s), Pharmacy: [facility] #[id number], 162.5, cm, 06/10/23 10:45:00 EDT, Height, kg, 06/10/23 10:45:00 EDT, Dosing Weight Start Date: 06/28/23 Status: Ordered Start: 11-05-2017 take 1 tablet by yosvany th once daily at mealtime Aspirin 81 MG tablet Active 81 mg PO DAILY WITH MEALS November 05, 2017 12:00am Comment on above: q 24 HR. atorvastatin 80 mg oral tablet (2 sources) HMG-CoA Reductase Inhibitor take 1 tablet by mouth once daily atorvastatin (LIPITOR) 80 MG tablet Take 80 mg by mouth daily. 0 Active bumetanide 1 mg oral tablet (13 sources) Loop Diuretic Start: 2 take 1 tablet by mouth once daily, then take 1 tablet by mouth twice daily bumetanide 1 mg oral tablet See Instructions, 1 tab(s) Oral qDay MWFS alternating with 1 tab twice a day TTHS, # 30 cap(s), 0 Refill(s), Pharmacy: [facility] [address] 162.6, cm, 01/24/22 4:45:00 EDT, Height Start Date: 02/02/22 Status: Ordered Start: 05-01-2016 End: 11-05-2017 take 1 tablet by mouth once daily Bumetanide 1 MG tablet Discontinued 1 mg PO DAILY May 01, 2016 12:00am November 05, 2017 12:44pm calcitriol 0.0005 mg oral capsule (20 sources) Vitamin D3 Analog Start: 10-17-2021 take 0.5 ug by mouth once daily Calcitriol Active 0.5 MCG PO DAILY October 17, 2021 1:00am Start: 02-19-2021 calcitriol 0.2 5 mcg oral capsule Dose : 0.25 mcg = 1 cap(s), Oral, Daily, 0 Refill(s) Start Date: 02/19/21 Status: Ordered take 1 capsule by mo [facility] once daily calcitriol (ROCALTROL) 0.25 mcg capsule Take 0.25 mcg by mouth once daily. 0 Active Comment on above: Take 0.25 mcg by yosvany once daily. cefdinir 300 mg oral capsule (1 source) Cephalosporin Antibacterial Start: 2 End: 2 cefdinir 300 mg oral capsule Dose : 300 mg = 1 cap(s), Oral, qDay, X 5 day(s), # 5 cap(s), 0 Refill(s), 04/01/22 12:55:00 EDT, Pharmacy: [facility] #[id number], 162.6, cm, 03/24/22 23:29:00 EDT, Height, 81.8 Start Date: 03/27/22 Stop Date: 04/01/22 Status: Ordered cefuroxime 500 mg oral tablet (1 source) Cephalosporin Antibacterial Start: 4 take 1 tablet by mouth every other day Cefuroxime Axetil 500 mg tablet Active 500 mg PO .QOD 4 August 18, 2024 1:00am start on 08/19/24 cephalexin 500 mg oral capsule (20 sources) Cephalosporin Antibacterial Start: 5 End: 5 cephalexin 500 mg oral capsule Dose : 500 mg = 1 cap(s), Oral, TID, X 14 day(s), # 42 cap(s), 0 Refill(s), 01/17/25 1:57:00 PM EDT, Pharmacy: [facility] #30, Skin tear of lower leg without complication Cellulitis, 164, cm, 01/03/25 13:32:00 EDT, Height, 82.2, kg, 01/03/25 13:32:00 EDT, Dosing Weight Start Date: 01/03/25 Stop Date: 01/17/25 Status: Ordered Quantity: 42.0 Unit: cap(s) Repeat number: 1 Indications: Laceration without foreign body, unspecified lower leg, initial encounter; Cellulitis, unspecified; Start: 10-27-2021 End: 12-09-2021 take 1 capsule by mouth every twelve hours Cephalexin 500 mg capsule Discontinued 500 mg PO EVERY 12 HOURS October 27, 2021 1:00am December 09, 2021 12:36pm Start: 11-05-2017 End: 12-20-2017 take 1 capsule by mouth three times daily Cephalexin 500 MG capsule Discontinued 500 mg PO THREE TIMES A DAY November 05, 2017 12:00am December 20, 2017 10:59am ciprofloxacin 500 mg oral tablet (1 source) Quinolone Antimicrobial Start: 01-31-2025 End: 02-10-2025 Cipro 500 mg oral tablet Dose : 500 mg = 1 tab(s), Oral, q12h, X 10 day(s), # 20 tab(s), 0 Refill(s), 02/10/25 11:13:00 AM EDT, Pharmacy: [facility] #[facility], Hematoma of leg Cellulitis, 163, cm, 01/31/25 10:40:00 EDT, Height, 81.4, kg, 01/31/25 10:40:00 EDT, Dosing Weight Start Date: 01/31/25 Stop Date: 02/10/25 Status: Ordered Quantity: 20.0 Unit: tab(s) Repeat number: 1 Indications: Cellulitis, unspecified; clopidogrel 75 mg oral tablet (20 sources) [id number] Platelet Inhibitor Start: 04-12-2025 Plavix 75 mg oral tablet Dose : 75 mg = 1 tab(s), Oral, qDay, # 90 tab(s), 3 Refill(s), Pharmacy: [facility] #30, 162.6, cm, 04/04/25 11:58:00 EDT, Height, kg, 04/11/25 13:34:00 EDT, Dosing Weight Start Date: 04/12/25 Status: Ordered Medication Dispense Status: Completed Quantity: 90.0 Unit: tab(s) Total Allowed Fills: 4 Fills Dispensed: 0 Start: 09-18-2024 Plavix 75 mg o ral tablet Dose : 75 mg = 1 tab(s), Oral, qDay, # 90 tab(s), 1 Refill(s), Pharmacy: [facility] #30, 162, cm, 09/06/24 10:45:00 EST, Height, kg, 09/06/24 10:45:00 EST, Dosing Weight Start Date: 09/18/24 Status: Ordered Quantity: 90.0 Unit: tab(s) Repeat number: 2 Start: 04-25-2021 End: 04-20-2022 Plavix 75 mg oral tablet Dos e : 75 mg = 1 tab(s), Oral, qDay, # 90 tab(s), 1 Refill(s), Pharmacy: [facility] #[id number], 162.5, cm, 01/28/24 13:08:00 EDT, Height, kg, 01/28/24 13:08:00 EDT, Dosing Weight Start Date: 01/28/24 Status: Ordered Comment on above: Take 75 mg by mouth once daily. dicyclomine hydrochloride 10 mg oral capsule (2 sources) Anticholinergic take 1 capsule by mouth four times daily before mealtime dicyclomine (BENTYL) 10 MG capsule Take 10 mg by mouth 4 (four) times a day before meals and nightly. 0 Active doxycycline hyclate 100 mg oral capsule (12 sources) Tetracycline-class Drug Start: 03-27-20 End: 04-01-20 doxycycline hyclate 100 mg oral capsule Dose : 100 mg = 1 cap(s), Oral, BID, X 5 day(s), # 10 cap(s), 0 Refill(s), 04/01/22 12:55:00 EDT, Pharmacy: [facility] #[id number], 162.6, cm, 03/24/22 23:29:00 EDT, Height, 81.8 Start Date: 03/27/22 Stop Date: 04/01/22 Status: Ordered Start: 11-05-2017 End: 12-20-2017 take 1 tablet by mouth twice daily Doxycycline Hyclate 100 MG tablet Discontinued 100 mg PO TWICE A DAY November 05, 2017 12:00am December 20, 2017 10:59am DULoxetine 30 mg delayed release oral capsule (2 sources) Serotonin and Norepinephrine Reuptake Inhibitor Start: 11-24-2024 DULoxetine 30 mg oral delayed release capsule Dose : 30 mg = 1 cap(s), Oral, BID, do not crush or chew, # 180 cap(s), 0 Refill(s) Start Date: 11/24/24 Status: Ordered Quantity: 180.0 Unit: cap(s) Repeat number: 1 folic acid 1 mg oral tablet (2 sources) take 0.8 mg by mouth once daily, then take 1 tablet by mouth folic acid (FOLVITE) 1 MG tablet Take 0.8 mg by mouth daily. 0 Active furosemide 40 mg oral tablet (20 sources) Loop Diuretic Start: 09-28-2024 furosemide 40 mg oral tablet Dose : 40 mg = 1 tab(s), Oral, qDay, # 90 tab(s), 1 Refill(s), Pharmacy: [facility] #30, 162, cm, 09/26/24 10:27:00 EST, Height, kg, 09/26/24 10:27:00 EST, Dosing Weight Start Date: 09/28/24 Status: Ordered Quantity: 90.0 Unit: tab(s) Repeat number: 2 Start: 07-24-2021 End: 01-20-2022 furosemide 40 mg oral tablet Dose : 40 mg = 1 tab(s), Oral, qDay, # 90 tab(s), 1 Refill(s), Pharmacy: [facility] #30, 162.5, cm, 01/28/24 13:08:00 EDT, Height, kg, 01/28/24 13:08:00 EDT, Dosing Weight Start Date: 03/02/24 Status: Ordered Start: 11-06-2020 furosemide 40 mg oral tablet Dose : 40 mg = 1 tab(s), Oral, Wed/Wed/Wed, 0 Refill(s) Start Date: 11/06/20 Status: Ordered Start: 02-11-2019 End: 03-11-2019 take 1 tablet by mouth once daily Furosemide 40 mg tablet Discontinued 40 mg PO DAILY 0 February 11, 2019 12:17pm March 11, 2019 12:35pm held for 5 days a few weks ago d/t kidney function Start: 12-20-2017 End: 02-11-2019 take 1 tablet by mouth twice daily Furosemide 40 mg tablet Discontinued 40 mg PO TWICE A DAY December 20, 2017 10:53am February 11, 2019 12:18pm Start: 11-05-2017 End: 12-20-2017 Furosemide 40 MG tablet Disc ontinued 20 mg PO DAILY 0 November 05, 2017 2:53pm December 20, 2017 11:00am Start with 20 mrem daily and if the patient gets lower extremity edema can increase to 40 mg daily. Titrate the dose with PCP. Start: 11-05-2017 End: 12-20-2017 Furosemide Discontinued 20 M G PO DAILY 0 November 05, 2017 2:53pm December 20, 2017 11:00am Start with 20 mrem daily and if the patient gets lower extremity edema can increase to 40 mg daily. Titrate the dose with PCP. Start: 11-05-2017 End: 11-05-2017 take 1 tablet by mouth once daily Furosemide 40 MG tablet Discontinued 40 mg PO DAILY 0 November 05, 2017 12:48pm November 05, 2017 2:53pm Start: 11-02-2017 End: 11-05-2017 take 1 tablet by mouth twice daily Furosemide 40 MG tablet Discontinued 40 mg PO TWICE A DAY November 02, 2017 12:00am November 05, 2017 12:48pm Comment on above: Take 40 mg by mouth. Wednesday, Wednesday and Wednesday hydrOXYzine hydrochloride 25 mg oral tablet (20 sources) Antihistamine Start: 01-23-2025 End: 06-05-2025 hydrOXYzine hydrochloride 25 mg oral tablet Dose : 25 mg = 1 tab(s), Oral, QID, PRN as needed for itching, # 120 tab(s), 2 Refill(s), Pharmacy: [facility] #[facility], 162.6, cm, 03/07/25 13:23:00 EDT, Height, kg, 03/07/25 13:23:00 EDT, Dosing Weight Start Date: 03/07/25 Stop Date: 06/05/25 Status: Ordered Medication Dispense Status: Completed Quantity: 120.0 Unit: tab(s) Total Allowed Fills: 3 Fills Dispensed: 0 Start: 02-10-2019 hydrOXYzine hy drochloride 25 mg oral tablet Dose : 25 mg = 1 tab(s), Oral, QID, # 120 tab(s), 2 Refill(s), Pharmacy: [facility] #[facility], 162.5, cm, 06/20/24 10:24:00 EDT, Height, kg, 06/20/24 10:24:00 EDT, Dosing Weight Start Date: 06/23/24 Status: Ordered Quantity: 120.0 Unit: tab(s) Repeat number: 3 Comment on above: Take 25 mg by mouth every 6 hours as needed. Lactaid (10 sources) Start: 03-03-2019 Lactaid 1 tablets, AsDirected, PRN abdominal discomfort, 0 Refill(s) Start Date: 03/03/19 Status: Ordered levETIRAcetam 500 mg oral tablet (20 sources) Start: 02-21-2021 levETIRAcetam 500 mg oral tablet Dose : 500 mg = 1 tab(s), Oral, BID, 0 Refill(s) Start Date: 02/21/21 Status: Ordered Medication Dispense Status: Completed Total Allowed Fills: 1 Fills Dispensed: 0 Comment on above: Take 500 mg by mouth twice daily. levothyroxine sodium 0.05 mg oral tablet (20 sources) l-Thyroxine Start: 02-14-2025 levothyroxine 50 mcg (0.05 mg) oral tablet Dose : 50 mcg = 1 tab(s), Oral, qDay, # 90 tab(s), 3 Refill(s), Pharmacy: [facility] #[facility], 162.6, cm, 02/14/25 13:15:00 EDT, Height, kg, 02/14/25 13:15:00 EDT, Dosing Weight Start Date: 02/14/25 Status: Ordered Medication Dispense Status: Completed Quantity: 90.0 Unit: tab(s) Total Allowed Fills: 4 Fills Dispensed: 0 Start: 03-07-2024 levothyroxine 50 mcg (0.05 mg) oral tablet Dose : 50 mcg = 1 tab(s), Oral, qDay, # 90 tab(s), 3 Refill(s), Pharmacy: [facility] #30, 162.5, cm, 03/07/24 10:13:00 EDT, Height, kg, 03/07/24 10:13:00 EDT, Dosing Weight Start Date: 03/07/24 Status: Ordered Quantity: 90.0 Unit: tab(s) Repeat number: 4 Start: 08-05-2023 levothyroxine 75 mcg (0.075 mg) oral tablet Dose : 75 mcg = 1 tab(s), Oral, qDay, # 90 tab(s), 3 Refill(s), [facility]: [id number], 162.5, cm, 06/10/23 10:45:00 EDT, Height, kg, 06/10/23 10:45:00 EDT, Dosing Weight Start Date: 08/05/23 Status: Ordered Start: 07-31-2022 levothyroxine 75 mcg (0.075 mg) oral tablet Dose : 75 mcg = 1 tab(s), Oral, qDay, # 90 tab(s), 3 Refill(s), [facility]: [facility] #[id number], 160.5, cm, 07/31/22 13:25:00 EST, Height Start Date: 07/31/22 Status: Ordered Start: 05-08-2022 levothyroxine 50 mcg (0.05 mg) oral tablet Dose : 50 mcg = 1 tab(s), Oral, qDay, # 90 tab(s), 1 Refill(s), [facility]: [facility] #[id number], CKD (chronic kidney disease), stage IV Hypercholesterolemia, 162.6, cm, 04/10/22 14:53:00 EDT, Height, kg, 04/10/22 14:53:00 EDT, Dosing Weight Start Date: 05/08/22 Status: Ordered Start: 11-04-2021 levothyroxine 50 mcg (0.05 mg) oral tablet Dose : 50 mcg = 1 tab(s), Oral, qDay, # 90 tab(s), 0 Refill(s), [facility]: [facility] CKD (chronic kidney disease), stage IV Hypercholesterolemia, 162.5, cm, 11/04/21 7:45:00 EDT, Height, kg, 11/04/21 7:45:00 EDT, Dosing Weight Start Date: 11/04/21 Status: Ordered Start: 10-27-2021 Levothyroxine 50 mcg tablet Active 75 ug PO DAILY October 27, 2021 1:00am Start: 10-27-2021 take 75 ug by mouth once daily Levothyroxine Active 75 MCG PO DAILY October 27, 2021 1:00am Start: 10-27-2021 take 50 ug by mouth once daily Levothyroxine Active 50 MCG PO DAILY October 27, 2021 1:00am Start: 10-17-2021 levothyroxine 50 mcg (0.05 mg) oral tablet Dose : 50 mcg = 1 tab(s), Oral, qDay, # 90 tab(s), 0 Refill(s), Pharmacy: [facility], CKD (chronic kidney disease), stage IV Hypercholesterolemia, 162.6, cm, 09/30/21 15:04:00 EST, Height, kg, 09/30/21 15:04:00 EST, Dosing Weight Start Date: 10/17/21 Status: Ordered Start: 05-28-2021 levothyroxine 50 mcg (0.05 mg) oral tablet Dose : 50 mcg = 1 tab(s), Oral, qDay, # 90 tab(s), 0 Refill(s), Pharmacy: [facility], CKD (chronic kidney disease), stage IV Hypercholesterolemia, 162.6, cm, 05/26/21 9:26:00 EDT, Height, kg, 05/28/21 12:54:00 EDT, Dosing Weight Start Date: 05/28/21 Status: Ordered take 1 tablet by yosvany once daily before breakfast levothyroxine (SYNTHROID) 75 mcg tablet Take 75 mcg by mouth daily before breakfast. 0 Active Comment on above: Take 75 mcg by mouth daily before breakfast. linaclotide 0.29 mg oral capsule (20 sources) Guanylate Cyclase-C Agonist Start: take 1 capsule by mouth once daily Linaclotide (Linzess) 290 mcg capsule Active 290 ug PO DAILY August 17, 2024 1:00am Start: 06-20-2024 Linzess 290 mc g oral capsule Dose : 290 mcg = 1 cap(s), Oral, qDay, # 30 cap(s), 0 Refill(s) Start Date: 06/20/24 Status: Ordered Medication Dispense Status: Completed Quantity: 30.0 Unit: cap(s) Total Allowed Fills: 1 Fills Dispensed: 0 Start: 11-05-2022 End: 08-17-2024 Linaclotide (Linzess) 145 mc g capsule Discontinued 145 ug PO November 05, 2022 12:00am August 17, 2024 10:10am Start: 10-29-2022 Linzess 145 mc g oral capsule Dose : 145 mcg = 1 cap(s), Oral, qDayAC, 30 minutes before breakfast. Do NOT crush/chew, # 90 cap(s), 3 Refill(s), other reason (Rx) Start Date: 10/29/22 Status: Ordered Start: 07-31-2022 End: 07-26-2023 Linzess 72 mcg oral capsule Dose : 72 mcg = 1 cap(s), Oral, qDay, do not crush or chew, # 90 cap(s), 3 Refill(s), Pharmacy: [facility] #[id number], Vitamin D deficiency CKD (chronic kidney disease), stage IV, 160.5, cm, 07/31/22 13:25:00 EST, Height Start Date: 07/31/22 Stop Date: 07/26/23 Status: Ordered Start: 02-10-2019 End: 03-11-2019 take 1 capsule by mouth once daily Linaclotide 72 MCG capsule Discontinued 72 ug PO DAILY February 10, 2019 12:00am March 11, 2019 12:35pm linaCLOtide (LEXI ZESS) 290 mcg capsule Take 290 mcg by mouth as needed. PRN 0 Active Comment on above: Take 290 mcg by mout h as needed. PRN magnesium oxide 200 mg oral tablet (2 sources) Start: 03-21-2022 take 200 mg by mouth twice daily Magnesium Oxide Active 200 MG PO TWICE A DAY March 21, 2022 12:00am Melatonin (8 sources) Start: 10-23-2024 take 1 dose by mouth once daily at bedtime melatonin Dose : 30 mg =, Oral, qHS, 0 Refill(s) Start Date: 10/23/24 Status: Ordered Medication Dispense Status: Completed Total Allowed Fills: 1 Fills Dispensed: 0 Start: 10-23-2024 take 1 dose by mouth once daily at bedtime melatonin Dose : 30 mg =, Oral, qHS, 0 Refill(s) Start Date: 10/23/24 Status: Ordered Repeat number: 1 Start: 08-17-2024 take 3 capsules by m outh at bedtime Melatonin 10 mg capsule Active 30 mg PO AT BEDTIME August 17, 2024 1:00am metOLazone 2.5 mg oral tablet (3 sources) Thiazide-like Diuretic Start: 03-04-2022 take 2.5 mg by mouth once daily Metolazone Active 2.5 MG PO DAILY March 04, 2022 12:00am Start: 12-29-2021 metOLazone 2.5 mg oral tablet Dose : 2.5 mg = 1 tab(s), Oral, qWeek, # 5 tab(s), 11 Refill(s), Pharmacy: [facility] [facility], 162.5, cm, 12/29/21 10:48:00 EDT, Height Start Date: 12/29/21 Status: Ordered midodrine hydrochloride 10 mg oral tablet (4 sources) alpha-Adrenergic Agonist Start: 02-01-2025 midodrine 10 mg oral tablet Dose : 10 mg = 1 tab(s), TAKE 1 TABLET BY MOUTH ON DIALYSIS DAYS, TAKE 1 HOUR BEFORE Start Date: 02/01/25 Status: Ordered Medication Dispense Status: Completed Total Allowed Fills: 1 Fills Dispensed: 0 montelukast 10 mg oral tablet (20 sources) Leukotriene Receptor Antagonist Start: 08-30-2009 Singulair 10 mg oral tablet Dose : 10 mg = 1 tab(s), Oral, qPM, # 90 tab(s), 3 Refill(s), Pharmacy: [facility], 162.5, cm, 03/07/24 10:13:00 EDT, Height, kg, 03/07/24 10:13:00 EDT, Dosing Weight Start Date: 04/18/24 Status: Ordered Medication Dispense Status: Completed Quantity: 90.0 Unit: tab(s) Total Allowed Fills: 4 Fills Dispensed: 0 Comment on above: take one tablet by m outh daily Multivitamin (Daily Multi-Vitamin) tablet (1 source) Start: 08-17-2024 Multivitamin (Daily Multi-Vitamin) tablet Active 1 {tbl} PO DAILY August 17, 2024 1:00am Nephro-Jose oral tablet (4 sources) Start: 02-22-2023 take 1 tablet by mouth once daily Nephro-Jose oral tablet take 1 tablet by mouth once daily Start Date: 02/22/23 Status: Ordered nitroglycerin 0.4 mg sublingual tablet (20 sources) Nitrate Vasodilator Start: 12-29-2021 Nitrostat 0.4 mg sublingual tablet Dose : 0.4 mg = 1 tab(s), Sublingual, q5min, PRN as needed for chest pain, # 25 tab(s), 2 Refill(s), [facility] [address] 162.5, cm, 12/29/21 10:48:00 EDT, Height Start Date: 12/29/21 Status: Ordered Medication Dispense Status: Completed Quantity: 25.0 Unit: tab(s) Total Allowed Fills: 3 Fills Dispensed: 0 Start: 06-19-2015 Nitroglycerin 0.4 MG tablet Active 0.4 mg SL Q5M as needed for Chest Pain June 19, 2015 12:00am Comment on above: Dissolve under the t ongue every 5 minutes as needed. Usual dose for angina is 1 tablet every 5 minutes for maximum of 3 doses in 15 minutes. Nitrostat 0.4 mg sublingual tablet (7 sources) Start: 2016 Nitrostat 0.4 mg sublingual tablet Dose : 0.4 mg = 1 tab(s), Sublingual, q5min, PRN as needed for chest pain, 0 Refill(s) Start Date: 05/22/16 Status: Ordered omeprazole 40 mg delayed release oral capsule (20 sources) Proton Pump Inhibitor Start: 09-27-2020 omeprazole 40 mg oral delayed release capsule Dose : 40 mg = 1 cap(s), Oral, BID, # 90 cap(s), 0 Refill(s), [facility] [address] 162.6, cm, 07/12/20 15:22:00 EST, Height, kg, 07/12/20 15:22:00 EST, Dosing Weight Start Date: 09/27/20 Status: Ordered Quantity: 90.0 Unit: cap(s) Repeat number: 1 Start: 04-11-2019 take 1 capsule by [facility] twice daily Omeprazole 40 MG capsule,delayed release(DR/EC) Active 40 mg PO TWICE A DAY April 11, 2019 12:00am Comment on above: Take 40 mg by mouth once daily. pantoprazole 40 mg delayed release oral tablet (1 source) Proton Pump Inhibitor Start: 04-12-2025 Protonix 40 mg oral enteric coated tablet Dose : 40 mg = 1 tab(s), Oral, qDayAC, # 30 tab(s), 1 Refill(s), Pharmacy: [facility] #[facility], 162.6, cm, 04/04/25 11:58:00 EDT, Height, kg, 04/11/25 13:34:00 EDT, Dosing Weight Start Date: 04/12/25 Status: Ordered Medication Dispense Status: Completed Quantity: 30.0 Unit: tab(s) Total Allowed Fills: 2 Fills Dispensed: 0 polyethylene glycol 3350 01260 mg powder for oral solution (20 sources) Osmotic Laxative Start: 06-20-2024 MiraLax oral powder for reconstitution See Instructions, gram(s) Oral prn, 0 Refill(s) Start Date: 06/20/24 Status: Ordered Medication Dispense Status: Completed Total Allowed Fills: 1 Fills Dispensed: 0 Start: 09-05-2019 take 17 doses by [facility] once daily as needed for constipation MiraLax oral powder for reconstitution Dose : 17 gram(s) =, Oral, Daily, PRN Constipation, # 238 gram(s), 0 Refill(s) Start Date: 09/05/19 Status: Ordered potassium chloride 20 meq oral tablet (20 sources) Start: 06-15-2024 potassium chlo ride 20 mEq oral tablet, extended release Dose : 40 mEq = 2 tab(s), Oral, Sun/Tues/Thurs/Sat, # 36 tab(s), 2 Refill(s), Pharmacy: [facility] #[facility], 162.5, cm, 03/07/24 10:13:00 EDT, Height, kg, 03/07/24 10:13:00 EDT, Dosing Weight Start Date: 06/15/24 Status: Ordered Medication Dispense Status: Completed Quantity: 36.0 Unit: tab(s) Total Allowed Fills: 3 Fills Dispensed: 0 Start: 03-24-2022 Potassium Chlo ride (Lsl-Pqrv-Bya M20) 20 mEq oral tablet, extended release Dose : 20 mEq = 1 tab(s), Oral, qDay, TAKE 1 TABLET BY MOUTH EVERY DAY, # 30 tab(s), 0 Refill(s), Pharmacy: [facility] #[facility], 162.5, cm, 03/07/24 10:13:00 EDT, Height, kg, 03/07/24 10:13:00 EDT, Dosing Weight Start Date: 05/03/24 Status: Ordered Start: 02-05-2022 Potassium Chlo ride (Fqs-Oomx-Npa 10) 10 mEq oral tablet, extended release Dose : 10 mEq = 1 tab(s), Oral, qDay, # 90 tab(s), 3 Refill(s), Pharmacy: [facility], 162.6, cm, 01/24/22 4:45:00 EDT, Height Start Date: 02/05/22 Status: Ordered Start: 01-24-2022 Potassium Chlo ride (Jnl-Bxxs-Ybs 10) 10 mEq oral tablet, extended release Dose : 10 mEq = 1 tab(s), Oral, qDay, # 30 tab(s), 0 Refill(s) Start Date: 01/24/22 Status: Ordered Start: 10-17-2021 take 4 tablets by mouth once P otassium Chloride 10 mEq tablet extended release Active 40 meq PO every Wednesday, , , Sat October 17, 2021 1:00am Start: 10-17-2021 take 20 mEq by mouth once bk y Potassium Chloride Active 20 MEQ PO DAILY October 17, 2021 1:00am Start: 10-17-2021 take 40 mEq by mouth once bk y Potassium Chloride Active 40 MEQ PO DAILY October 17, 2021 1:00am Start: 08-27-2021 End: 08-22-2022 Potassium Chloride (Eqv-Klor -Con 10) 10 mEq oral tablet, extended release Dose : 10 mEq = 1 tab(s), Oral, qDay, # 30 tab(s), 11 Refill(s), Pharmacy: [facility], Anemia CKD (chronic kidney disease), stage IV, 162.6, cm, 08/27/21 13:04:00 EST, Height, kg, 08/27/21 13:04:00 EST, Dosing Weight Start Date: 08/27/21 Stop Date: 08/22/22 Status: Ordered take 1 tablet by yosvany th twice daily potassium chloride ER (KLOR-CON) 20 mEq tablet Take 20 mEq by mouth twice daily. 0 Active Comment on above: Take 20 mEq by mouth twice daily. Probiotic (7 sources) Start: 10-23-2024 take 1 tablet by mouth once daily Probiotic 1tab, Oral, qDay, 0 Refill(s) Start Date: 10/23/24 Status: Ordered Medication Dispense Status: Completed Total Allowed Fills: 1 Fills Dispensed: 0 Start: 10-23-2024 take 1 tablet by yosvany th once daily Probiotic 1tab, Oral, qDay, 0 Refill(s) Start Date: 10/23/24 Status: Ordered Repeat number: 1 RA VITAMIN B-6 100 MG TABLET (10 sources) Start: 10-17-2020 take 1 tablet by mouth once daily RA VITAMIN B-6 100 MG TABLET take 1 tablet by mouth once daily Start Date: 10/17/20 Status: Ordered 12 hr ranolazine 500 mg extended release oral tablet (20 sources) Anti-angin al Start: 03-20-2025 Ranexa 500 mg oral tablet, extended release Dose : 500 mg = 1 tab(s), Oral, BID, # 180 tab(s), 1 Refill(s), Pharmacy: [facility] #[facility], 162.6, cm, 03/07/25 13:23:00 EDT, Height, kg, 03/07/25 13:23:00 EDT, Dosing Weight Start Date: 03/20/25 Status: Ordered Medication Dispense Status: Completed Quantity: 180.0 Unit: tab(s) Total Allowed Fills: 2 Fills Dispensed: 0 Start: 10-27-2021 Ranexa 500 mg oral tablet, extended release Dose : 500 mg = 1 tab(s), Oral, BID, # 180 tab(s), 1 Refill(s), Pharmacy: [facility] #30, 162, cm, 09/06/24 10:45:00 EST, Height, kg, 09/06/24 10:45:00 EST, Dosing Weight Start Date: 09/18/24 Status: Ordered Quantity: 180.0 Unit: tab(s) Repeat number: 2 Start: 04-25-2021 End: 08-23-2021 take 500 mg by mouth twice daily Ranolazine Active 500 MG PO TWICE A DAY October 27, 2021 1:00am take 1 tablet by yosvany th twice daily ranolazine (RANEXA) 1,000 mg SR tablet Take 1,000 mg by mouth 2 (two) times a day. 0 Active Comment on above: Take 500 mg by mouth twice daily. rosuvastatin calcium 40 mg oral tablet (20 sources) HMG-CoA Reductase Inhibitor Start: 02-25-2024 rosuvastatin 40 mg oral tablet Dose : 40 mg = 1 tab(s), Oral, Daily, # 90 tab(s), 3 Refill(s), Pharmacy: [facility] #[facility], Hypothyroidism Hypertension, 162.5, cm, 01/28/24 13:08:00 EDT, Height, kg, 01/28/24 13:08:00 EDT, Dosing Weight Start Date: 02/25/24 Status: Ordered Quantity: 90.0 Unit: tab(s) Repeat number: 4 Indications: Essential (primary) hypertension; Hypothyroidism, unspecified; Start: 07-31-2022 rosuvastatin 4 0 mg oral capsule Dose : 40 mg = 1 cap(s), Oral, qDay, # 90 cap(s), 3 Refill(s), [facility]: [facility] #[id number], 160.5, cm, 07/31/22 13:25:00 EST, Height Start Date: 07/31/22 Status: Ordered Start: 01-27-2021 rosuvastatin 4 0 mg oral tablet Dose : 40 mg = 1 tab(s), Oral, Daily, # 90 tab(s), 3 Refill(s), Pharmacy: [facility] #[id number], Hypothyroidism Hypertension, 160.5, cm, 03/10/23 13:54:00 EDT, Height, kg, 03/10/23 13:54:00 EDT, Dosing Weight Start Date: 03/10/23 Status: Ordered Start: 02-10-2019 End: 08-17-2024 take 2 tablets by mouth once daily Rosuvastatin 20 MG tablet Discontinued 40 mg PO DAILY February 10, 2019 12:00am August 17, 2024 10:10am Start: 02-10-2019 take 40 mg by mouth once daily Rosuvastatin Active 40 MG PO DAILY February 10, 2019 12:00am Start: 02-10-2019 rosuvastatin 2 0 mg oral tablet Dose : 20 mg = 1 tab(s), Oral, qDay, # 90 tab(s), 3 Refill(s), Pharmacy: [facility] [address], 162.6, cm, 06/12/21 11:18:00 EDT, Height, kg, 06/12/21 11:18:00 EDT, Dosing Weight Start Date: 07/23/21 Status: Ordered Comment on above: Take 1 tablet by yosvany th once daily. sevelamer carbonate 800 mg oral tablet (7 sources) Phosphate Binder Start: sevelamer carbonate 800 mg oral tablet Dose : 800 mg = 1 tab(s), Oral, TID, # 90 tab(s), 0 Refill(s) Start Date: 10/23/24 Status: Ordered Medication Dispense Status: Completed Quantity: 90.0 Unit: tab(s) Total Allowed Fills: 1 Fills Dispensed: 0 silver sulfADIAZINE 10 mg/ml topical cream (2 sources) Sulfonamide Antibacterial Start: End: Silvadene 1% topical cream Apply 1 ricardo, Topical, qDay, X 14 day(s), # 85 gram(s), 1 Refill(s), Pharmacy: [facility] #[facility], Cream, 163, cm, 01/31/25 10:40:00 EDT, Height, 81.4, kg, 01/31/25 10:40:00 EDT, Dosing Weight Start Date: 01/31/25 Stop Date: 02/28/25 Status: Ordered Quantity: 85.0 Unit: g Repeat number: 2 Indications: Cellulitis, unspecified; Anemia, unspecified; Other injury of unspecified body region, initial encounter; Methicillin resistant Staphylococcus aureus infection, unspecified site; sulfamethoxazole 800 mg / trimethoprim 160 mg oral tablet (15 sources) Dihydrofolate Reductase Inhibitor Antibacterial, Sulfonamide Antimicrobial Start: End: 06-25-2 025 take 1 tablet by mouth twice daily Bactrim DS 800 mg-160 mg oral tablet Dose = 1 tab(s), Oral, BID, X 14 day(s), # 28 tab(s), 0 Refill(s), Pharmacy: [facility] #[facility], 163, cm, 01/31/25 10:40:00 EDT, Height, 81.4, kg, 01/31/25 10:40:00 EDT, Dosing Weight Start Date: 01/31/25 Stop Date: 02/14/25 Status: Ordered Quantity: 28.0 Unit: tab(s) Repeat number: 1 Indications: Cellulitis, unspecified; Anemia, unspecified; Other injury of unspecified body region, initial encounter; Methicillin resistant Staphylococcus aureus infection, unspecified site; Start: 01-03-2025 End: 01-17-2025 take 1 tablet by mouth twice daily Bactrim DS 800 mg-160 mg oral tablet Dose = 1 tab(s), Oral, BID, X 14 day(s), # 28 tab(s), 0 Refill(s), Pharmacy: [facility] #[facility], 164, cm, 01/03/25 13:32:00 EDT, Height, 82.2, kg, 01/03/25 13:32:00 EDT, Dosing Weight Start Date: 01/03/25 Stop Date: 01/17/25 Status: Ordered Quantity: 28.0 Unit: tab(s) Repeat number: 1 Start: 10-23-2017 End: 11-02-2017 take 1 tablet by mouth twice daily sulfamethoxazole-trimethoprim (BACTRIM DS,SEPTRA DS) 800-160 mg per tablet Take 1 (one) tablet by mouth 2 (two) times a day for 10 days. 20 tablet 0 10/23/2017 11/02/2017 Active Start: 05-01-2016 End: 05-03-2016 Sulfamethoxazole-Trimethopri m 1 TABLET tablet Discontinued 1 {tbl} PO TWICE A DAY May 01, 2016 12:00am May 03, 2016 11:01am Start: 05-01-2016 End: 05-03-2016 take 1 tablet by mouth twice daily Sulfamethoxazole-Trimethoprim Discontinued 1 TABLET PO TWICE A DAY May 01, 2016 12:00am May 03, 2016 11:01am tiZANidine 4 mg oral tablet (20 sources) Central alpha-2 Adrenergic Agonist Start: 09-09-2023 tiZANidine 4 mg oral tablet Dose : 4 mg = 1 tab(s), Oral, q8h, # 90 tab(s), 1 Refill(s), Pharmacy: [facility] #[id number], Subcutaneous nodule Muscle spasm, 162.5, cm, 09/07/23 10:43:00 EST, Height, kg, 09/07/23 10:43:00 EST, Dosing Weight Start Date: 09/09/23 Status: Ordered Start: 01-31-2021 tiZANidine 4 m g oral tablet Dose : 4 mg = 1 tab(s), Oral, q8h, # 90 tab(s), 1 Refill(s), Pharmacy: [facility] #[id number], Subcutaneous nodule Muscle spasm, 160.5, cm, 04/28/23 9:56:00 EDT, Height, kg, 04/28/23 10:02:00 EDT, Dosing Weight Start Date: 06/01/23 Status: Ordered Comment on above: Take 4 mg by mouth e very 6 hours as needed. Vitamin D3 (20 sources) Start: 1 take 1 dose by mouth once daily Vitamin D3 Dose : 5,000 Int unit =, Oral, qDay, 0 Refill(s) Start Date: 11/06/20 Status: Ordered 5 ml zoledronic acid 0.8 mg/ml injection (2 sources) Bisphosphonate zoledronic acid (ZOMETA) 4 mg/5 mL injection Infuse 4 mg into a venous catheter once. 0 Active Completed/Discontinued Medications Medication Drug Class(es) Dates Sig (Normalized) Sig (Original) acetaminophen 300 mg / codeine phosphate 30 mg oral tablet (11 sources) Opioid Agonist Start: 11-02-2017 End: 11-05-2017 Acetaminophen-Codei ne (Tylenol With Codeine #3 Tablet) 1 EACH tablet Discontinued 1 NMA PO EVERY 8 HOURS NEEDED as needed for Pain November 02, 2017 12:00am November 05, 2017 12:48pm acetaminophen 325 mg / HYDROcodone bitartrate 5 mg oral tablet (20 sources) Opioid Agonist Start: 09-26-2024 acetaminophen-hydro codone 325 mg-5 mg oral tablet Dose = 1 tab(s), Oral, BID, 0 Refill(s), 80.8 Start Date: 09/26/24 Status: Ordered Medication Dispense Status: Completed Total Allowed Fills: 1 Fills Dispensed: 0 Start: 08-06-2022 take 1 tablet by yosvany th every eight hours as needed for pain Hydrocodone-Acetaminophen 5-325 mg table t Active 1 {tbl} PO Q8H as needed for pain 6 August 06, 2022 Start: 08-06-2022 take 1 tablet by yosvany th every eight hours Hydrocodone-Acetaminophen Active 1 TABLE T PO Q8H 6 August 06, 2022 Start: 01-01-2022 take 1 tablet by yosvany th every eight hours Hydrocodone-Acetaminophen Active 1 TABLE T PO Q8H 8 January 01, 2022 7:49am Start: 11-04-2021 acetaminophen- hydrocodone 325 mg-5 mg oral tablet 0 Refill(s), 83.9 Start Date: 11/04/21 Status: Ordered Start: 02-24-2019 End: 03-05-2019 Hydrocodone-Acetaminophen 1 TABLET tablet Discontinued 1 {tbl} PO EVERY 6 HOURS NEEDED as needed for Pain 12 February 24, 2019 February 26, 2019 12:00am March 05, 2019 12:09am Start: 02-24-2019 End: 03-05-2019 take 1 tablet by mouth every six hours as needed Hydrocodone-Acetaminophen Discontinued 1 TABLET PO EVERY 6 HOURS NEEDED 12 February 24, 2019 March 05, 2019 12:09am azithromycin 250 mg oral tablet (2 sources) Macrolide Antimicrobial Start: 03-04-2021 End: 06-01-2022 azithromycin (ZITHROMAX) 250 mg tablet take 2 tablets by mouth on day 1 then 1 tablet daily until finished 0 03/04/2021 06/01/2022 Discontinued Comment on above: take 2 tablets by mo uth on day 1 then 1 tablet daily until finished Maxipime (2 sources) Cephalosporin Antibacterial Start: 02-02-2022 Maxipime Dose : 1 gram(s) =, IV Piggyback, q24h, 0 Refill(s), 89.8 Start Date: 02/02/22 Status: Ordered cholecalciferol 0.125 mg oral tablet (13 sources) Vitamin D take 1 tablet by mouth once daily cholecalciferol (VITAMIN D-3) 5,000 unit tab Take 5,000 Units by mouth once daily. 0 Active take 5 tablets by mouth once fatimah ly cholecalciferol, vitamin D3, 1,000 unit tablet Take 5,000 Units by mouth daily. 0 Active Comment on above: Take 5,000 Units by mouth once daily. codeine phosphate 2 mg/ml / promethazine hydrochloride 1.25 mg/ml oral solution (11 sources) Opioid Agonist, Phenothiazine Start: 2020 take 5 mL by mouth every four hours for cough, then take 30 mL by mouth every twenty-four hours for cough promethazine-codeine 6.25-10 mg/5 mL syrup give 5 milliliters by mouth every 4 hours if needed for cough --NOT TO EXCEED 30 MLS PER 24 HOURS 0 03/04/2021 Active Comment on above: give 5 milliliters b y mouth every 4 hours if needed for cough --NOT TO EXCEED 30 MLS PER 24 HOURS cyanocobalamin 1000 mcg/mL injectable solution (7 sources) Start: 2019 inject 1 mL by intramuscular injection every month cyanocobalamin 1000 mcg/mL injectable solution Dose : 1,000 mcg = 1 mL, Intramuscular, month, # 2 mL, 0 Refill(s), Pharmacy: [address], 162.6, cm, 12/11/19 8:51:00 EDT, Height, kg, 12/11/19 8:51:00 EDT, Dosing Weight Start Date: 12/11/19 Status: Ordered cyanocobalamin, vitamin B-12, (VITAMIN B-12 INJECTION) (11 sources) cyanocobalamin, vitamin B-12, (VITAMIN B-12 INJECTION) by INJECTION(UNSPECIFIE D PARENTERAL ROUTES) route once every month. 0 Active Comment on above: by INJECTION(UNSPECI FIED PARENTERAL ROUTES) route once every month. cyclobenzaprine hydrochloride 10 mg oral tablet (11 sources) Muscle Relaxant take 1 tablet by mouth three times daily cyclobenzaprine (FLEXERIL) 10 mg tablet Take 10 mg by mouth three times daily. 0 Active Comment on above: Take 10 mg by mouth three times daily. DAPTOmycin 350 mg injection (11 sources) Lipopeptide Antibacterial Start: 2020 DAPTOmycin (CUBICIN) 350 mg injection Inject 350 mg intravenously every 48 hours. 0 01/01/2021 Active Comment on above: Inject 350 mg intrav enously every 48 hours. 1 ml evolocumab 140 mg/ml prefilled syringe (7 sources) PCSK9 Inhibitor Start: 2022 inject 1 mL by subcutaneous injection every other week Repatha 140 mg/mL subcutaneous solution Dose : 140 mg = 1 mL, Subcutaneous, q2wk, # 3 mL, 0 Refill(s), Pharmacy: [facility][id number], 160.5, cm, 02/22/23 9:02:00 EDT, Height Start Date: 03/04/23 Status: Ordered inject 140 mg by sub cutaneous injection every other week evolocumab (REPATHA SURECLICK) 140 mg/mL pen injector Inject 140 mg subcutaneously every 2 weeks. 0 Active Comment on above: Inject 140 mg subcut aneously every 2 weeks. folic acid/vit B complex and C (NEPHRO-JOSE ORAL) (3 sources) folic acid/vit B complex and C (NEPHRO-JOSE ORAL) Take by mouth. 0 Active Comment on above: Take by mouth. Food Supplemt, Lactose-Reduced (10 sources) Start: 8 End: 8 take 1 mL by mouth four times daily Food Supplemt, Lactose-Reduced Discontinued 120 ML PO 4 TIMES DAILY November 05, 2017 12:40pm December 20, 2017 11:00am Start: 11-05-2017 End: 12-20-2017 take 1 mL by mouth four times daily Food Supplemt, Lactose-Reduced Discontinued 120 ML PO 4 TIMES DAILY November 04, 2017 11:00pm December 20, 2017 10:00am Start: 11-05-2017 End: 12-20-2017 take 1 mL by mouth four times daily Food Supplemt, Lactose-Reduced Discontinued 120 ML PO 4 TIMES DAILY November 05, 2017 12:00am December 20, 2017 11:00am Food Supplemt, Lactose-Reduced 120 ML liquid (1 source) Start: 11-05-2017 End: 12-20-2017 take 1 mL by mouth four times daily Food Supplemt, Lactose-Reduced 120 ML liquid Discontinued 120 mL PO 4 TIMES DAILY November 05, 2017 12:00am December 20, 2017 11:00am gabapentin 300 mg oral capsule (9 sources) Anti-epilept ic Agent Start: 04-16-2021 gabapentin 300 mg or al capsule Dose : 300 mg = 1 cap(s), Oral, TID, 0 Refill(s), 75.9 Start Date: 04/16/21 Status: Ordered take 1 capsule by mouth every ei ght hours levoFLOXacin 750 mg oral tablet (11 sources) Quinolone Antimicrobial Start: 11-02-2017 End: 11-05-2017 take 1 tablet by mouth once daily Levofloxacin 750 MG tablet Discontinued 750 mg PO DAILY November 02, 2017 12:00am November 05, 2017 12:44pm 10 ml lidocaine hydrochloride 10 mg/ml injection (1 source) Antiarrhythmic, Amide Local Anesthetic Start: 10-23-2017 End: 10-23-2017 lidocaine 1% (XYLOCAINE) 10 mg/mL (1 %) injection 10 mL 24 hr metoprolol succinate 25 mg extended release oral tablet (20 sources) beta-Adrenergic Manish Start: 04-15-2025 End: 04-15-2025 take 1 tablet by mouth in the morning metoprolol succinate 25 mg oral TABLET extended release Start: 04/15/25 8:00:00 AM EDT, Dose = 12.5 mg, = 0.5 tab(s), Oral, 0, 04/06/25 8:38:00 EDT Start Date: 04/15/25 Stop Date: 04/15/25 Status: Completed Medication Dispense Status: Completed Total Allowed Fills: 1 Fills Dispensed: 0 Start: 04-13-2025 End: 04-14-2025 take 1 tablet by mouth in the morning metoprolol succinate 25 mg oral TABLET extended release Start: 04/14/25 8:00:00 AM EDT, Dose = 12.5 mg, = 0.5 tab(s), Oral, 0, 04/06/25 8:38:00 EDT Start Date: 04/14/25 Stop Date: 04/14/25 Status: Completed Medication Dispense Status: Completed Total Allowed Fills: 1 Fills Dispensed: 0 Start: 07-23-2021 End: 01-07-2025 metoprolol succinate 25 mg o ral TABLET extended release Dose : 25 mg = 1 tab(s), Oral, qDay, Do not crush or chew (controlled release), # 90 tab(s), 2 Refill(s), Pharmacy: [facility] #[id number], 164, cm, 11/24/24 10:53:00 EDT, Height, kg, 11/24/24 10:53:00 EDT, Dosing Weight Start Date: 12/06/24 Status: Ordered Medication Dispense Status: Completed Quantity: 90.0 Unit: tab(s) Total Allowed Fills: 3 Fills Dispensed: 0 Start: 04-25-2021 End: 08-23-2021 metoprolol succinate 25 mg o ral TABLET extended release Dose : 12.5 mg = 0.5 tab(s), Oral, qDay, Do not crush or chew (controlled release), # 45 tab(s), 3 Refill(s), [facility]: [id number], 162.6, cm, 06/12/21 11:18:00 EDT, Height, kg, 06/12/21 11:18:00 EDT, Dosing Weight Start Date: 07/23/21 Status: Ordered Start: 02-11-2019 End: 02-24-2019 take 1 tablet by mouth twice daily Metoprolol Tartrate 25 MG tablet Discontinued 25 mg PO TWICE A DAY February 11, 2019 12:00am February 24, 2019 5:58pm Start: 12-20-2017 End: 02-11-2019 Metoprolol Tartrate 25 mg ta blet Discontinued 37.5 mg PO TWICE A DAY December 20, 2017 12:00am February 11, 2019 12:15pm Start: 12-20-2017 End: 02-11-2019 take 37.5 mg by mouth twice daily Metoprolol Tartrate Discontinued 37.5 MG PO TWICE A DAY December 20, 2017 12:00am February 11, 2019 12:15pm take 1 tablet by yosvany th once daily metoprolol tartrate, short acting, (LOPRESSOR) 25 mg tablet Take 25 mg by mouth once daily. 0 Active Comment on above: Take 25 mg by mouth once daily. Multivitamin with Iron-Mineral tab (11 sources) Start: 1 take 1 tablet by mouth once daily Multivitamin with Iron-Mineral tab Take 1 tablet by mouth once daily. 100 tablet 2 08/27/2020 Active Comment on above: Take 1 tablet by yosvany th once daily. ondansetron 4 mg oral tablet (10 sources) Serotonin-3 Receptor Antagonist Start: 5 End: 5 Zofran 4 mg oral tablet Dose : 4 mg = 1 tab(s), Oral, q6h, PRN Nausea/Vomiting, # 60 tab(s), 0 Refill(s), Pharmacy: [facility] #[id number], 162.6, cm, 02/14/25 13:15:00 EDT, Height, kg, 02/14/25 13:15:00 EDT, Dosing Weight Start Date: 02/14/25 Stop Date: 03/16/25 Status: Ordered Medication Dispense Status: Completed Quantity: 60.0 Unit: tab(s) Total Allowed Fills: 1 Fills Dispensed: 0 Start: 10-23-2024 Zofran 4 mg or al tablet Dose : 4 mg = 1 tab(s), Oral, q6h, PRN Nausea/Vomiting, # 20 tab(s), 0 Refill(s) Start Date: 10/23/24 Status: Ordered Quantity: 20.0 Unit: tab(s) Repeat number: 1 Start: 08-17-2024 take 1 tablet by yosvany th once daily as needed for nausea and vomiting Ondansetron 4 mg tablet,disintegrating Active 4 mg PO DAILY as needed for nausea and vomiting August 17, 2024 1:00am take 1 tablet by yosvany th every eight hours as needed ondansetron (ZOFRAN-ODT) 4 MG disintegrating tablet Dissolve 4 mg on top of tongue every 8 (eight) hours as needed for nausea. 0 Active oxyCODONE hydrochloride 5 mg oral tablet (11 sources) Opioid Agonist Start: 03-10-2019 End: 03-19-2019 take 5-10 mg by mouth every four hours as needed for pain Oxycodone 5 MG tablet Discontinued 5 - 10 mg PO EVERY 4 HOURS NEEDED as needed for Pain 60 7 March 10, 2019 March 16, 2019 12:00am March 19, 2019 12:09am prn pain predniSONE 5 mg oral tablet (11 sources) Start: 11-02-2017 End: 12-20-2017 take 1 tablet by mouth once daily Prednisone 5 tablet Discontinued 5 mg PO DAILY November 02, 2017 12:00am December 20, 2017 11:00am sodium chloride 0.154 meq/ml irrigation solution (1 source) Start: 10-23-2017 End: 10-23-2017 sodium chloride (NS) 0.9 % irrigation solution 1,000 mL spironolactone 25 mg oral tablet (20 sources) Aldosterone Antagonist Start: 02-10-2019 End: 03-11-2019 take 1 tablet by mouth once daily Spironolactone 25 MG tablet Discontinued 25 mg PO DAILY 0 February 11, 2019 12:17pm March 11, 2019 12:36pm Hold for 2 days Start: 11-05-2017 End: 12-20-2017 Spironolactone 25 MG tablet Discontinued 12.5 mg PO DAILY 0 November 05, 2017 12:48pm December 20, 2017 11:00am Start: 11-05-2017 End: 12-20-2017 take 12.5 mg by mouth once daily Spironolactone Discontinued 12.5 MG PO DAILY 0 November 05, 2017 12:48pm December 20, 2017 11:00am Start: 11-02-2017 End: 11-05-2017 take 1 tablet by mouth twice daily Spironolactone 25 MG tablet Discontinued 25 mg PO TWICE A DAY November 02, 2017 12:00am November 05, 2017 12:48pm temazepam 15 mg oral capsule (20 sources) Benzodiazepine Start: 12-07-2023 temazepam 15 m g oral capsule Dose : 15 mg = 1 cap(s), Oral, qHS, PRN for sleep, 0 Refill(s), 79.09 Start Date: 12/07/23 Status: Ordered Start: 10-17-2020 End: 08-17-2024 take 1 capsule by mouth at bedtime Temazepam 30 mg capsule Discontinued 30 mg PO AT BEDTIME October 17, 2021 1:00am August 17, 2024 11:01am Start: 02-10-2019 End: 04-12-2019 take 1 capsule by mouth at bedtime as needed Temazepam 30 MG capsule Discontinued 30 mg PO AT BEDTIME as needed for Insomnia March 11, 2019 12:36pm April 12, 2019 2:18pm Comment on above: Take 30 mg by mouth daily at bedtime. vitamin b12 1 mg/ml injectable solution (17 sources) Vitamin B12 Start: 12-11-19 20 inject 1 mL by intramuscular injection every month cyanocobalamin 1000 mcg/mL injectable solution Dose : 1,000 mcg = 1 mL, Intramuscular, month, # 2 mL, 0 Refill(s), [facility] [address] 162.6, cm, 12/11/19 8:51:00 EDT, Height, kg, 12/11/19 8:51:00 EDT, Dosing Weight Start Date: 12/11/19 Status: Ordered Start: 12-11-2019 inject 1 mL by intra muscular injection every month cyanocobalamin 1000 mcg/mL injectable solution Dose : 1,000 mcg = 1 mL, Intramuscular, month, # 2 mL, 0 Refill(s), [facility] [address] 162.6, cm, 12/11/19 8:51:00 EDT, Height, kg, 12/11/19 8:51:00 EDT, Dosing Weight Start Date: 12/11/19 Status: Ordered cyanocobalamin ( B-12) 1,000 mcg/mL injection 1,000 mcg every 30 (thirty) days. 0 Active vitamin b6 100 mg oral tablet (20 sources) Start: 07-29-2021 End: 08-17-2024 take 1 tablet by mouth once daily Pyridoxine (Vitamin B6) (Vitamin B-6) 100 mg Tablet Discontinued 100 mg PO DAILY October 17, 2021 1:00am August 17, 2024 11:00am Comment on above: take 1 tablet by yosvany th once daily Problems Active Problems Problem Classification Problem Date Documented Da te Episodic/Chronic Acute and unspecified renal failure (20 sources) Renal failure syndrome 01-23-2022 Chronic Acute and unspecified renal failure (2 sources) Acute renal failure syndrome; Translations: [Acute kidney failure, unspecified] Onset: 2 Episodic Acute cerebrovascular disease (5 sources) Stroke of uncertain pathology; Translations: [Cerebral infarction, unspecified] Onset: 5 02-28-2025 Chronic Acute myocardial infarction (2 sources) ST elevation (STEMI) myocardial infarction involving other coronary artery of anterior wall; Translations: [ST elevation (STEMI) myocardial infarction involving other coronary artery of anterior wall] Onset: 5 Chronic Acute posthemorrhagic anemia (1 source) Acute posthemorrhagic anemia; Translations: [Acute posthemorrhagic anemia] Episodic Administrative/social admission (1 source) Patient encounter status; Translations: [Dietary counseling and surveillance] 04-20-2023 Episodic Allergic reactions (2 sources) Allergy status to other drugs, medicaments and biological substances status; Translations: [Allergy status to penicillin] Onset: 5 Episodic Anxiety disorders (2 sources) Subacute confusional state, of cerebrovascular origin 02-28-2025 Chronic Aortic and peripheral arterial embolism or thrombosis (1 source) Other arterial embolism and thrombosis of abdominal aorta; Translations: [Other arterial embolism and thrombosis of abdominal aorta] Onset: 5 Chronic Asthma (20 sources) Asthma; Translations: [Unspecified asthma, uncomplicated] Onset: 2 2016 Chronic Comment on above: NO INHALERS USED FOR AT LEAST 3 YEARS Bacterial infection; unspecified site (20 sources) Methicillin resistant Staphylococcus aureus infection; Translations: [Infection by methicillin sensitive Staphylococcus aureus] 03-04-2016 Episodic Comment on above: STARTED WITH A WOUND ON RIGHT OLMOS, COLONIZATION IN NARES Cardiac dysrhythmias (2 sources) Unspecified atrial fibrillation; Translations: [Unspecified atrial fibrillation] Onset: 5 Chronic Chronic kidney disease (20 sources) Chronic renal failure; Translations: [Chronic kidney disease, stage 4 (severe)] Onset: 0 Chronic Chronic obstructive pulmonary disease and bronchiectasis (4 sources) Chronic obstructive pulmonary disease, unspecified; Translations: [Chronic obstructive pulmonary disease, unspecified] Onset: 4 Chronic Chronic ulcer of skin (20 sources) Ulcer of skin of lower extremity; Translations: [Non-pressure chronic ulcer of unspecified part of left lower leg with unspecified severity] 12-15-2018 Chronic Coagulation and hemorrhagic disorders (10 sources) Purpuric rash 09-26-2024 Episodic Complication of device; implant or graft (9 sources) Dialysis finding; Translations: [Other specified complication of vascular prosthetic devices, implants and grafts, initial encounter] 11-05-2022 Chronic Complication of device; implant or graft (2 sources) Mechanical complication of arteriovenous surgical fistula; Translations: [Other mechanical complication of surgically created arteriovenous fistula, initial encounter] Onset: 2 Episodic Complications of surgical procedures or medical care (20 sources) Postoperative wound sinus; Translations: [Persistent postprocedural fistula, initial encounter] Episodic Congestive heart failure; nonhypertensive (16 sources) Congestive heart failure; Translations: [Heart failure, unspecified] Onset: 5 Chronic Coronary atherosclerosis and other heart disease (20 sources) Angina pectoris; Translations: [Coronary atherosclerosis] Onset: 2 2016 Chronic Comment on above: HAS A SIGNIFICANT HE ART HISTORY, HAS CHRONIC CHEST PAIN FOR WHICH RANEXA HELPS, HAS NOT HAD TO TAKE NITRO FOR SEVERAL MONTHS, AND DR ALVAREZ IS AWARE PCI/stent of the dis alpa CX; PCI/ALEXANDRO to prox RCA 08/19/06 Crushing injury or internal injury (20 sources) Injury of kidney 01-24-2022 Episodic Deficiency and other anemia (3 sources) Anemia of chronic renal failure; Translations: [Anemia in chronic kidney disease] Chronic Deficiency and other anemia (11 sources) Iron deficiency anemia due to blood loss; Translations: [Iron deficiency anemia secondary to blood loss (chronic)] Onset: 1 12-10-2020 Chronic Deficiency and other anemia (2 sources) Anemia of chronic disease; Translations: [Anemia in other chronic diseases classified elsewhere] 08-17-2024 Chronic Deficiency and other anemia (1 source) Anemia in other chronic diseases classified elsewhere; Translations: [Anemia in other chronic diseases classified elsewhere] Onset: 5 Chronic Deficiency and other anemia (1 source) Anemia in chronic kidney disease; Translations: [Anemia in chronic kidney disease] Onset: 5 Chronic Deficiency and other anemia (20 sources) Anemia; Translations: [Anemia, unspecified] Onset: 2 05-15-2021 Episodic Deficiency and other anemia (1 source) Megaloblastic anemia due to vitamin B>12< deficiency; Translations: [Vitamin B12 deficiency anemia, unspecified] Episodic Deficiency and other anemia (2 sources) Anemia, unspecified; Translations: [Anemia, unspecified] Onset: 5 Episodic Delirium, dementia, and amnestic and other cognitive disorders (1 source) Frailty; Translations: [Age-related physical debility] 04-20-2023 Chronic Disorders of lipid metabolism (20 sources) Hypercholesterolemia; Translations: [Hyperlipidemia] Onset: 2 2016 Chronic Diverticulosis and diverticulitis (20 sources) Diverticular disease; Translations: [Diverticula of intestine] 03-04-2016 Chronic E Codes: Adverse effects of medical care (1 source) Complication of surgical procedure; Translations: [Surgical operation with anastomosis, bypass or graft as the cause of abnormal reaction of the patient, or of later complication, without mention of misadventure at the time of the procedure] Episodic E Codes: Fall (13 sources) Fall; Translations: [Unspecified fall, initial encounter] Onset: 5 01-27-2022 Episodic E Codes: Place of occurrence (1 source) Unspecified place in unspecified non-institutional (private) residence as the place of occurrence of the external cause; Translations: [Fall at home, initial encounter] Onset: 5 Episodic Epilepsy; convulsions (2 sources) Epilepsy; Translations: [Epilepsy, unspecified, not intractable, without status epilepticus] Onset: 5 Chronic Epilepsy; convulsions (20 sources) Seizure disorder 12-29-2021 Episodic Esophageal disorders (20 sources) Callaway's esophagus; Translations: [Gastroesophageal reflux disease] Onset: 4 01-29-2020 Chronic Essential hypertension (20 sources) Hypertensive disorder; Translations: [Essential (primary) hypertension] Onset: 2 05-14-2020 Chronic Comment on above: CONTROLLED ON MED External Injury - Fall (4 sources) Unspecified fall, initial encounter; Translations: [Fall in home] Onset: 8 02-28-2025 Fluid and electrolyte disorders (20 sources) Acidosis; Translations: [Acidosis] Onset: 2 Episodic Fracture of neck of femur (hip) (11 sources) Closed fracture of neck of femur; Translations: [Fracture of unspecified part of neck of right femur, initial encounter for closed fracture] 04-11-2019 Episodic Comment on above: percutaneous screw f ixation 03/10/19 Genitourinary symptoms and ill-defined conditions (1 source) Anuria; Translations: [Anuria and oliguria] Episodic Heart valve disorders (20 sources) Mitral valve prolapse; Translations: [Non-rheumatic mitral regurgitation ] Onset: 5 03-04-2016 Chronic Hepatitis (1 source) Viral hepatitis B without hepatic coma; Translations: [Unspecified viral hepatitis B without hepatic coma] Episodic Hypertension with complications and secondary hypertension (6 sources) Chronic kidney disease due to hypertension; Translations: [Hypertensive chronic kidney disease with stage 1 through stage 4 chronic kidney disease, or unspecified chronic kidney disease] Onset: 5 Chronic Intestinal obstruction without hernia (11 sources) Fecal impaction; Translations: [Fecal impaction of rectum] 12-16-2018 Episodic Malaise and fatigue (13 sources) Asthenia; Translations: [Weakness] Episodic Nutritional deficiencies (20 sources) Vitamin D deficiency; Translations: [Vitamin D deficiency, unspecified] Onset: 3 05-15-2021 Chronic Occlusion or stenosis of precerebral arteries (1 source) Occlusion and stenosis of left carotid artery; Translations: [Occlusion and stenosis of left carotid artery] Onset: 5 Chronic Open wounds of head; neck; and trunk (20 sources) Wound discharge; Translations: [Facial laceration ] 07-01-2020 Episodic Osteoarthritis (20 sources) Arthritis 11-10-2013 Chronic Osteoporosis (20 sources) Osteoporosis; Translations: [Age-related osteoporosis without current pathological fracture] Onset: 5 03-04-2016 Chronic Other aftercare (20 sources) Surgical follow-up; Translations: [Encounter for surgical aftercare following surgery on the genitourinary system] 03-12-2021 Episodic Other aftercare (20 sources) Long-term current use of anticoagulant 2022 Episodic Other aftercare (1 source) Other remote computer terminal operator (current) drug therapy; Translations: [Other remote computer terminal operator (current) drug therapy] Onset: 5 Episodic Other circulatory disease (1 source) Acquired arteriovenous fistula; Translations: [Arteriovenous fistula, acquired] Chronic Other circulatory disease (5 sources) Low blood pressure; Translations: [Hypotension, unspecified] 02-01-2025 Episodic Other circulatory disease (1 source) Hypotension, unspecified; Translations: [Hypotension, unspecified] Onset: 5 Episodic Other connective tissue disease (1 source) Presence of right artificial shoulder joint; Translations: [Presence of right artificial shoulder joint] Onset: 5 Chronic Other connective tissue disease (1 source) Presence of right artificial hip joint; Translations: [Presence of right artificial hip joint] Onset: 5 Chronic Other connective tissue disease (20 sources) Muscle pain 05-28-2021 Episodic Other connective tissue disease (11 sources) Musculoskeletal finding; Translations: [Other symptoms and signs involving the musculoskeletal system] 11-04-2021 Episodic Other connective tissue disease (11 sources) Neurological symptom; Translations: [Unspecified symptoms and signs involving the nervous system] 06-13-2020 Episodic Other connective tissue disease (11 sources) History of lumbar fusion; Translations: [Arthrodesis status] 06-13-2020 Episodic Other connective tissue disease (2 sources) Spasm; Translations: [Other muscle spasm] Onset: Episodic Other connective tissue disease (19 sources) Bilateral cramp of muscle of lower limbs 04-01-2023 Episodic Other connective tissue disease (1 source) Recurrent falls ; Translations: [Repeated falls] Episodic Other connective tissue disease (17 sources) Pain in lower limb 04-08-2023 Episodic Other connective tissue disease (16 sources) Muscle weakness of limb 04-28-2023 Episodic Other connective tissue disease (3 sources) Other symptoms and signs involving the musculoskeletal system; Translations: [Other musculoskeletal symptoms referable to limbs] Onset: 2 06-02-2012 Episodic Other diseases of kidney and ureters (11 sources) Renal impairment; Translations: [Disorder of kidney and ureter, unspecified] 12-15-2018 Episodic Other diseases of kidney and ureters (2 sources) Disorder of kidney and ureter, unspecified; Translations: [Unspecified disorder of kidney and ureter] Episodic Other ear and sense organ disorders (15 sources) Abscess of external ear 06-10-2023 Episodic Other endocrine disorders (20 sources) Empty sella syndrome 05-15-2021 Chronic Other gastrointestinal disorders (20 sources) Chronic constipation 07-07-2019 Episodic Other hematologic conditions (9 sources) ESR raised 10-10-2024 Episodic Other infections; including parasitic (7 sources) Post-traumatic wound infection 12-20-2024 Episodic Other inflammatory condition of skin (13 sources) Itching of skin 02-23-2024 Episodic Other injuries and conditions due to external causes (20 sources) At risk for falls 03-04-2016 Episodic Other injuries and conditions due to external causes (20 sources) Wound of skin 03-04-2016 Episodic Comment on above: SKIN TEARS OVER LEGS AND ARMS, GOES TO WOUND CARE, HER PCPP IS AWARE AND DR ZAYAS TO BE CALLED Other injuries and conditions due to external causes (11 sources) Avulsion of skin; Translations: [Other injury of unspecified body region, initial encounter] 01-27-2022 Episodic Other injuries and conditions due to external causes (20 sources) Injury of head 01-23-2022 Episodic Other injuries and conditions due to external causes (19 sources) Tear of skin 03-07-2024 Episodic Other injuries and conditions due to external causes (2 sources) Other injury of unspecified body region, initial encounter; Translations: [Other injury of unspecified body region, initial encounter] Onset: 5 Episodic Other lower respiratory disease (20 sources) Dyspnea on exertion 2016 Episodic Other lower respiratory disease (8 sources) Dyspnea; Translations: [Dyspnea, unspecified] 08-26-2024 Episodic Other lower respiratory disease (1 source) Other forms of dyspnea; Translations: [Other forms of dyspnea] Onset: 5 Episodic Other lower respiratory disease (1 source) Abnormal breathing; Translations: [Other abnormalities of breathing] Episodic Other lower respiratory disease (1 source) Other abnormalities of breathing; Translations: [Other abnormalities of breathing] Onset: 5 Episodic Other nervous system disorders (11 sources) Peripheral nerve disease ; Translations: [Polyneuropathy, unspecified] 04-11-2019 Chronic Other nervous system disorders (16 sources) Bilateral peripheral neuropathy of lower limbs 04-28-2023 Chronic Other nervous system disorders (1 source) Polyneuropathy, unspecified; Translations: [Polyneuropathy, unspecified] Onset: 5 Chronic Other nervous system disorders (20 sources) Unsteady when walking 03-04-2016 Episodic Other nutritional; endocrine; and metabolic disorders (20 sources) Hypercalcemia 05-15-2021 Chronic Other nutritional; endocrine; and metabolic disorders (20 sources) H/O: endocrine disorder 05-15-2021 Episodic Other nutritional; endocrine; and metabolic disorders (2 sources) H/O: hypothyroidism 05-15-2021 Episodic Other nutritional; endocrine; and metabolic disorders (20 sources) Weight gain 05-15-2021 Episodic Other nutritional; endocrine; and metabolic disorders (1 source) Loss of appetite; Translations: [Anorexia] Episodic Other skin disorders (20 sources) Disorder of skin of upper limb 02-19-2021 Episodic Other skin disorders (20 sources) Skin lesion 02-26-2021 Episodic Other skin disorders (1 source) Swelling / lump finding; Translations: [Localized swelling, mass and lump, unspecified] Onset: 2 Episodic Other upper respiratory infections (15 sources) Acute sinusitis 06-10-2023 Episodic Barbara-; endo-; and myocarditis; cardiomyopathy (except that caused by tuberculosis or sexually transmitted disease) (2 sources) Cardiomyopathy; Translations: [Cardiomyopathy, unspecified] Onset: 5 Chronic Peripheral and visceral atherosclerosis (20 sources) Peripheral vascular disease; Translations: [Peripheral vascular disease, unspecified] Onset: 4 03-04-2016 Chronic Pneumonia (except that caused by tuberculosis or sexually transmitted disease) (20 sources) Community acquired pneumonia; Translations: [Left lower zone pneumonia] Onset: 5 09-06-2024 Episodic Poisoning by other medications and drugs (1 source) Poisoning by diuretic; Translations: [Poisoning by carbonic-anhydrase inhibitors, benzothiadiazides and other diuretics, accidental (unintentional), initial encounter] Episodic Rehabilitation care; fitting of prostheses; and adjustment of devices (1 source) Procedure carried out on subject; Translations: [Encounter for fitting and adjustment of other specified devices] Chronic Residual codes; unclassified (1 source) Awaiting transplantation of kidney; Translations: [Awaiting organ transplant status] 04-20-2023 Chronic Residual codes; unclassified (20 sources) Peripheral edema 02-20-2020 Episodic Residual codes; unclassified (10 sources) Bilateral lower limb edema; Translations: [Localized edema] 02-11-2022 Episodic Residual codes; unclassified (2 sources) Localized edema; Translations: [Edema] Episodic Residual codes; unclassified (1 source) Acquired absence of other genital organ(s); Translations: [Acquired absence of other genital organ(s)] Onset: 5 Episodic Rheumatoid arthritis and related disease (20 sources) Rheumatoid arthritis; Translations: [Rheumatoid arthritis, unspecified] Onset: 5 04-10-2019 Chronic Septicemia (except in labor) (3 sources) Sepsis without septic shock; Translations: [Severe sepsis without septic shock] Onset: 2 Episodic Shock (3 sources) Hypovolemic shock; Translations: [Hypovolemic shock] Onset: 5 Episodic Spondylosis; intervertebral disc disorders; other back problems (20 sources) Prolapsed lumbar intervertebral disc; Translations: [Post-laminectomy syndrome] Onset: 2 2016 Chronic Spondylosis; intervertebral disc disorders; other back problems (20 sources) Backache; Translations: [Spinal stenosis] 04-10-2019 Episodic Superficial injury; contusion (20 sources) Contusion of right knee, initial encounter; Translations: [Contusion of right hand, initial encounter] Onset: 8 Episodic Thyroid disorders (20 sources) Hypothyroidism; Translations: [Hypothyroidism, unspecified] Onset: 4 05-28-2021 Chronic Unclassified (2 sources) Unknown / UNK(Unknown) Onset: 7 Unclassified (20 sources) Eye glasses, device (physical object) 03-04-2016 Unclassified (20 sources) Has numbness (finding) 03-04-2016 Comment on above: RIGHT LEG Unclassified (20 sources) History of cardiac catheterization 03-04-2016 Comment on above: X4 Unclassified (20 sources) Postprocedural state finding 03-04-2016 Comment on above: BOTH COMMON ILIAC AR TERIES Unclassified (20 sources) Protein level - finding 10-17-2019 Unclassified (16 sources) Traumatic and/or non-traumatic injury of back 02-20-2020 Unclassified (1 source) In 2 weeks, you will need a repeat chest x-ray Unclassified (7 sources) Patient encounter status 11-24-2024 Urinary tract infections (11 sources) Acute urinary tract infection; Translations: [Urinary tract infection, site not specified] 11-04-2021 Episodic Past or Other Problems Problem Classification Problem Date Documented Da te Episodic/Chronic Abdominal pain (11 sources) Right upper quadrant pain; Translations: [Right upper quadrant pain] Onset: 09-05-2009 09-05-2009 Episodic Coronary atherosclerosis and other heart disease (13 sources) Stented coronary artery; Translations: [Presence of coronary angioplasty implant and graft] Onset: 01-05-2025 12-15-2018 Episodic Comment on above: PCI/stent of the dis alpa CX; PCI/ALEXANDRO to prox RCA 08/19/06 Deficiency and other anemia (1 source) Iron deficiency anemia, unspecified; Translations: [Iron deficiency anemia, unspecified] Onset: 01-06-2025 Episodic Nonspecific chest pain (16 sources) Chest pain; Translations: [Chest pain, unspecified] Onset: 01-05-2025 11-04-2021 Episodic Nutritional deficiencies (20 sources) Cobalamin deficiency; Translations: [Vitamin B deficiency] Onset: 01-06-2025 05-28-2021 Episodic Open wounds of extremities (14 sources) Laceration without foreign body of right hand, initial encounter; Translations: [Laceration without foreign body, right lower leg, initial encounter] Onset: 10-23-2017 01-03-2025 Episodic Other acquired deformities (11 sources) Lumbar spondylolisthesis; Translations: [Spondylolisthesis, lumbar region] Onset: 11-18-2020 11-18-2020 Episodic Other aftercare (1 source) halfway (current) use of antithrombotics/antip latelets; Translations: [halfway (current) use of antithrombotics/antip latelets] Onset: 01-06-2025 Episodic Other connective tissue disease (10 sources) Paraparesis; Translations: [Other symptoms and signs involving the musculoskeletal system] Onset: 06-02-2012 06-02-2012 Episodic Other connective tissue disease (11 sources) Pain in limb; Translations: [Pain in unspecified limb] Onset: 06-27-2012 06-27-2012 Episodic Other connective tissue disease (1 source) Arthrodesis status; Translations: [Arthrodesis status] Onset: 01-06-2025 Episodic Other gastrointestinal disorders (1 source) Other constipation; Translations: [Other constipation] Onset: 01-06-2025 Episodic Other lower respiratory disease (2 sources) Shortness of breath; Translations: [Shortness of breath] Onset: 09-14-2024 Episodic Other nervous system disorders (11 sources) Paresthesia; Translations: [Paresthesia of skin] Onset: 06-27-2012 06-27-2012 Episodic Other nutritional; endocrine; and metabolic disorders (11 sources) Weight loss; Translations: [Abnormal weight loss] Onset: 09-05-2009 09-05-2009 Episodic Other screening for suspected conditions (not mental disorders or infectious disease) (2 sources) Encounter for screening for osteoporosis; Translations: [Other specified abnormal findings of blood chemistry] Onset: 12-06-2024 Episodic Residual codes; unclassified (11 sources) Early satiety; Translations: [Early satiety] Onset: 09-05-2009 09-05-2009 Episodic Screening and history of mental health and substance abuse codes (2 sources) Personal history of nicotine dependence; Translations: [Personal history of nicotine dependence] Onset: 01-05-2025 Episodic Skin and subcutaneous tissue infections (11 sources) Cellulitis; Translations: [Cellulitis, unspecified] Onset: 01-06-2025 12-20-2024 Episodic Sprains and strains (2 sources) Strain of muscle, fascia and tendon of lower back, initial encounter; Translations: [Strain of muscle, fascia and tendon of lower back, initial encounter] Onset: 10-23-2017 Episodic Syncope (1 source) Syncope Onset: 03-05-2017 Unclassified (1 source) FU Onset: 06-24-2017 Results Test Name Value Interpretation Reference Range Facility .GFRon 04-16-2025 Estimated Glomerular Filtration Rate 9 ml/min/1.73sqm Normal [facility] Comment on above: Result Comment: Stages of Chronic Kidney Disease (CKD) Stage Description eGFR(ml/min/1.73 sq.m.) CKD 1 Normal kidney function or >=90 normal kindney function with possible kidney damage (ex. Proteinuria) CKD 2 Kidney damage with mild loss 60-89 of kidney function CKD 3a Mild to moderate loss of kidney 45-59 function CKD 3b Moderate to severe loss of 30-44 of kindey function CKD 4 Severe loss of kidney function 15-29 CKD 5 Kidney failure <15 Note: (go live 2024) the eGFR calculation was updated to the 2020 CKD-EPI creatinine equation without a race factor to calculate the eGFR results. Performed By: #### G FR, CBC, ADIFF, CMP, ANEU #### [address] [address] .Manual Diffon 04-16-2025 Basophil %, Manual 1.0 % Normal 0.0-2.5 [facility] Comment on above: Performed By: #### G FR, CBC, ADIFF, CMP, ANEU #### [place] [address] Basophil, Abs Manual 0.1 10 3/mcL Normal 0.0-0.3 [facility] Comment on above: Performed By: #### G FR, CBC, ADIFF, CMP, ANEU #### [address] [address] Eosinophil %, Manual 3.0 % Normal 0.0-6.0 [facility] Comment on above: Performed By: #### G FR, CBC, ADIFF, CMP, ANEU #### [address] [address] Eosinophil, Abs Manual 0.2 10 3/mcL Normal 0.0-0.7 [facility] Comment on above: Performed By: #### G FR, CBC, ADIFF, CMP, ANEU #### [address] [address] Lymphocyte %, Manual 24.0 % Normal 20.0-40.0 [facility] Comment on above: Performed By: #### G FR, CBC, ADIFF, CMP, ANEU #### [address] [address] Lymphocyte, Abs Manual 1.9 10 3/mcL Normal 0.9-4.3 [facility] Comment on above: Performed By: #### G FR, CBC, ADIFF, CMP, ANEU #### [address] [address] Monocyte %, Manual 11.0 % Normal 2.0-13.0 [facility] Comment on above: Performed By: #### G FR, CBC, ADIFF, CMP, ANEU #### [address] [address] Monocyte, Abs Manual 0.9 10 3/mcL Normal 0.1-1.4 [facility] Comment on above: Performed By: #### G FR, CBC, ADIFF, CMP, ANEU #### [address] [address] Myelocyte 2.0 % Normal [facility] Comment on above: Performed By: #### G FR, CBC, ADIFF, CMP, ANEU #### [address] [address] Neutrophil %, Manual 59.0 % Normal 50.0-75.0 [facility] Comment on above: Performed By: #### G FR, CBC, ADIFF, CMP, ANEU #### [place] [id number] Neutrophil, Abs Manual 4.6 10 3/mcL Normal 2.3-8.1 [facility] Comment on above: Performed By: #### G FR, CBC, ADIFF, CMP, ANEU #### [place] [address] Nucleated RBC 2.0 /100 WBC Normal [facility] Comment on above: Performed By: #### G FR, CBC, ADIFF, CMP, ANEU #### [address] [address] .Morphon 04-16-2025 Anisocytosis Ql (Bld) 1+ Normal [facility] Comment on above: Performed By: #### G FR, CBC, ADIFF, CMP, ANEU #### [place] [address] Hypochrom 1+ Normal [facility] Comment on above: Performed By: #### G FR, CBC, ADIFF, CMP, ANEU #### [place] [address] Macrocytosis 1+ Normal [facility] Comment on above: Performed By: #### G FR, CBC, ADIFF, CMP, ANEU #### [place] [address] Platelet Clumps Few Normal [facility] Comment on above: Performed By: #### G FR, CBC, ADIFF, CMP, ANEU #### [place] [address] Platelet Estimate Normal [facility] Comment on above: Performed By: #### G FR, CBC, ADIFF, CMP, ANEU #### [place] [address] Polychrom 1+ Normal [facility] Comment on above: Performed By: #### G FR, CBC, ADIFF, CMP, ANEU #### [place] [address] BMPon 04-16-2025 BUN/Creatinine Ratio 8.3 ratio Low 10.0-22.0 [facility] Comment on above: Performed By: #### G FR, CBC, ADIFF, CMP, ANEU #### [address] [address] Calcium [Mass/Vol] 9.5 mg/dL Normal 8.7-10.4 [facility] Comment on above: Performed By: #### G FR, CBC, ADIFF, CMP, ANEU #### [address] [address] Chloride [Moles/Vol] 94 mmol/L Low 98-110 [facility] Comment on above: Performed By: #### G FR, CBC, ADIFF, CMP, ANEU #### [address] [address] CO2 [Moles/Vol] 20 mmol/L Low 22-32 [facility] Comment on above: Performed By: #### G FR, CBC, ADIFF, CMP, ANEU #### [place] [id number] Creatinine [Mass/Vol] 5.05 mg/dL High 0.50-1.20 [facility] Comment on above: Result Comment: Test ing performed on [employer] analyzer using enzymatic creatinine methodology. Performed By: #### G FR, CBC, ADIFF, CMP, ANEU #### [address] [address] Electrolyte Balance 20.0 mEq/L High 4.0-15.0 [facility] Comment on above: Performed By: #### G FR, CBC, ADIFF, CMP, ANEU #### [address] [address] Glucose [Mass/Vol] 96 mg/dL Normal 82-115 [facility] Comment on above: Performed By: #### G FR, CBC, ADIFF, CMP, ANEU #### [place] [id number] Potassium [Moles/Vol] 4.7 mmol/L Normal 3.5-5.0 [facility] Comment on above: Performed By: #### G FR, CBC, ADIFF, CMP, ANEU #### [address] [address] Sodium [Moles/Vol] 134 mmol/L Low 136-145 [facility] Comment on above: Performed By: #### G FR, CBC, ADIFF, CMP, ANEU #### [place] [address] Urea nitrogen [Mass/Vol] 42.0 mg/dL High 8.0-22.0 [facility] Comment on above: Performed By: #### G FR, CBC, ADIFF, CMP, ANEU #### [place] [id number] CBCon 04-16-2025 Erythrocyte distribution width (RBC) [Ratio] 18.6 % High 11.5-15.5 [facility] Comment on above: Performed By: #### G FR, CBC, ADIFF, CMP, ANEU #### [place] [address] Hematocrit (Bld) [Volume fraction] 26.3 % Low 34.0-46.0 [facility] Comment on above: Performed By: #### G FR, CBC, ADIFF, CMP, ANEU #### [place] [id number] Hgb 8.5 G/dL Low 12.0-16.0 [facility] Comment on above: Performed By: #### G FR, CBC, ADIFF, CMP, ANEU #### [place] [id number] MCH (RBC) [Entitic mass] 31.7 pg Normal 27.0-33.0 [facility] Comment on above: Performed By: #### G FR, CBC, ADIFF, CMP, ANEU #### [place] [id number] MCHC 32.3 G/dL Normal 32.0-36.0 [facility] Comment on above: Performed By: #### G FR, CBC, ADIFF, CMP, ANEU #### [place] [id number] MCV (RBC) [Entitic vol] 98.2 fL Normal 80.0-99.0 [facility] Comment on above: Performed By: #### G FR, CBC, ADIFF, CMP, ANEU #### [address] [address] Platelet 240 10 3/mcL Normal 150-450 [facility] Comment on above: Performed By: #### G FR, CBC, ADIFF, CMP, ANEU #### [address] [address] Platelet mean volume (Bld) [Entitic vol] 8.3 fL Normal 6.6-10.5 [facility] Comment on above: Performed By: #### G FR, CBC, ADIFF, CMP, ANEU #### [address] [address] RBC 2.68 10 6/mcL Low 4.10-5.30 [facility] Comment on above: Performed By: #### G FR, CBC, ADIFF, CMP, ANEU #### [address] [address] WBC 7.8 10 3/mcL Normal 4.5-10.8 [facility] Comment on above: Performed By: #### G FR, CBC, ADIFF, CMP, ANEU #### [place] [address] LABORATORYOrdered By: SYSTEM SYSTEM on 04-16-2025 Anisocytosis Ql (Bld) 1+ *NA* (04/16/25 5:37 AM) Invalid Interpretation Code AH Workflow SS Basophils (Bld) [#/Vol] 0.1 103/mcL Normal 0.0 - 0.3 10^3/mcL AH Workflow SS Basophils/100 WBC (Bld) 1.0 % Normal 0.0 - 2.5 % AH Workflow SS Calcium [Mass/Vol] 9.5 mg/dL Normal 8.7 - 10. 4 mg/dL AH ADM SS Chloride [Moles/Vol] 94 mmol/L Low 98 - 11 0 mEq/L AH ADM SS CO2 [Moles/Vol] 20 mmol/L Low 22 - 32 mEq/L AH ADM SS Creatinine [Mass/Vol] 5.05 mg/dL High 0.50 - 1.20 mg/dL AH ADM SS Comment on above: Interpretive Data: T esting performed on [employer] analyzer using enzymatic creatinine methodology. Electrolyte Balance 20.0 mEq/L High 4.0 - 15 .0 mEq/L [facility] SS Eosinophils (Bld) [#/Vol] 0.2 103/mcL Normal 0.0 - 0.7 10^3/mcL Workflow SS Eosinophils/100 WBC (Bld) 3.0 % Normal 0.0 - 6.0 % Workflow SS Erythrocyte distribution width (RBC) [Ratio] 18.6 % High 11.5 - 15.5 % Workflow SS Estimated Glomerular Filtration Rate 9 ml/min/1.73sqm Invalid Interpretation Code [facility] SS Comment on above: Interpretive Data: Stages of Chronic Kidney Disease (CKD) Stage Description eGFR(ml/min/1.73 sq.m.) CKD 1 Normal kidney function or >=90 normal kindney function with possible kidney damage (ex. Proteinuria) CKD 2 Kidney damage with mild loss 60-89 of kidney function CKD 3a Mild to moderate loss of kidney 45-59 function CKD 3b Moderate to severe loss of 30-44 of kindey function CKD 4 Severe loss of kidney function 15-29 CKD 5 Kidney failure <15 Note: (go live 2024) the eGFR calculation was updated to the 2020 CKD-EPI creatinine equation without a race factor to calculate the eGFR results. Glucose [Mass/Vol] 96 mg/dL Normal 82 - 115 mg/dL [facility] SS Hematocrit (Bld) [Volume fraction] 26.3 % Low 34.0 - 46.0 % [facility] SS Hemoglobin (Bld) [Mass/Vol] 8.5 G/dL Low 12.0 - 16.0 G/dL Workflow SS Hypochromia Ql (Bld) 1+ *NA* (04/16/25 5:37 AM) Invalid Interpretation Code Workflow SS Lymphocytes (Bld) [#/Vol] 1.9 103/mcL Normal 0.9 - 4.3 10^3/mcL Workflow SS Lymphocytes/100 WBC (Bld) 24.0 % Normal 20.0 - 40.0 % Workflow SS Macrocytes Ql (Bld) 1+ *NA* (04/16/25 5:37 AM) Invalid Interpretation Code Workflow SS Magnesium [Mass/Vol] 2.3 mg/dL Normal 1.6 - 2 .4 mg/dL [facility] SS MCH (RBC) [Entitic mass] 31.7 pg Normal 27.0 - 33.0 pg AH Workflow SS MCHC 32.3 G/dL Normal 32.0 - 36.0 G/dL AH Workflow SS MCV (RBC) [Entitic vol] 98.2 fL Normal 80.0 - 99.0 fL AH Workflow SS Monocytes (Bld) [#/Vol] 0.9 103/mcL Normal 0.1 - 1.4 10^3/mcL AH Workflow SS Monocytes/100 WBC (Bld) 11.0 % Normal 2.0 - 13.0 % AH Workflow SS Myelocytes/100 WBC (Bld) 2.0 % Invalid Interpretation Code Workflow SS Neutrophils (Bld) [#/Vol] 4.6 103/mcL Normal 2.3 - 8.1 10^3/mcL AH Workflow SS Neutrophils/100 WBC (Bld) 59.0 % Normal 50.0 - 75.0 % AH Workflow SS Nucleated RBC 2.0 /100 WBC Invalid Interpretation Code Workflow SS Platelet Clumps Few *NA* (04/16/25 5:37 AM) Invalid Interpretation Code Workflow SS Platelet mean volume (Bld) [Entitic vol] 8.3 fL Normal 6.6 - 10.5 fL AH Workflow SS Platelets (Bld) [#/Vol] 240 103/mcL Normal 150 - 450 10^3/mcL AH Workflow SS Platelets LM Ql (Bld) Normal *NA* (04/16/25 5:37 AM) Invalid Interpretation Code Workflow SS Polychromasia LM Ql (Bld) 1+ *NA* (04/16/25 5:37 AM) Invalid Interpretation Code Workflow SS Potassium [Moles/Vol] 4.7 mmol/L Normal 3.5 - 5.0 mEq/L ADM SS RBC (Bld) [#/Vol] 2.68 106/mcL Low 4.10 - 5.3 0 10^6/mcL AH Workflow SS Sodium [Moles/Vol] 134 mmol/L Low 136 - 145 mEq/L ADM SS Urea nitrogen [Mass/Vol] 42.0 mg/dL High 8.0 - 22.0 mg/dL ADM SS Urea nitrogen/Creatinine [Mass ratio] 8.3 ratio Low 10.0 - 22.0 ratio ADM SS WBC (Bld) [#/Vol] 7.8 103/mcL Normal 4.5 - 10.8 10^3/mcL AH Workflow SS MGon 04-16-2025 Magnesium [Mass/Vol] 2.3 mg/dL Normal 1.6-2.4 [facility] Comment on above: Performed By: #### G FR, CBC, ADIFF, CMP, ANEU #### [address] [address] .Auto Diffon 04-15-2025 Basophil, Absolute 0.1 10 3/mcL Normal 0.0-0.3 [facility] Comment on above: Performed By: #### A MILA ABOGEL #### [address] [address] Basophils/100 WBC (Bld) 1.3 % Normal 0.0-2.5 [facility] Comment on above: Performed By: #### A MILA ABOGEL #### [address] [address] Eosinophil, Absolute 0.2 10 3/mcL Normal 0.0-0.7 [facility] Comment on above: Performed By: #### A MILA ABOGEL #### [address] [address] Eosinophils/100 WBC (Bld) 2.8 % Normal 0.0-6.0 [facility] Comment on above: Performed By: #### A MILA ABOGEL #### [address] [address] Lymphocyte, Absolute 1.7 10 3/mcL Normal 0.9-4.3 [facility] Comment on above: Performed By: #### A BSARMOND ABOGEL #### [address] [address] Lymphocytes/100 WBC (Bld) 21.8 % Normal 20.0-40.0 [facility] Comment on above: Performed By: #### A BSARMOND ABOGEL #### [address] [address] Monocyte, Absolute 0.8 10 3/mcL Normal 0.1-1.4 [facility] Comment on above: Performed By: #### A BSARMOND ABOGEL #### [address] [place], [place] [address] Monocytes/100 WBC (Bld) 10.3 % Normal 2.0-13.0 [facility] Comment on above: Performed By: #### A BRENNA ZARAGOZA #### [address] [address] Neutrophils/100 WBC (Bld) 63.8 % Normal 50.0-75.0 [facility] Comment on above: Performed By: #### A BRENNA ZARAGOZA #### [address] [address] .GFRon 04-15-2025 Estimated Glomerular Filtration Rate 10 ml/min/1.73sqm Normal [facility] Comment on above: Result Comment: Stages of Chronic Kidney Disease (CKD) Stage Description eGFR(ml/min/1.73 sq.m.) CKD 1 Normal kidney function or >=90 normal kindney function with possible kidney damage (ex. Proteinuria) CKD 2 Kidney damage with mild loss 60-89 of kidney function CKD 3a Mild to moderate loss of kidney 45-59 function CKD 3b Moderate to severe loss of 30-44 of kindey function CKD 4 Severe loss of kidney function 15-29 CKD 5 Kidney failure <15 Note: (go live 2024) the eGFR calculation was updated to the 2020 CKD-EPI creatinine equation without a race factor to calculate the eGFR results. Performed By: #### A BRENNA ZARAGOZA #### [address] [address] .NEUABSon 04-15-2025 Neutrophil, Absolute 5.0 10 3/mcL Normal 2.3-8.1 [facility] Comment on above: Performed By: #### A BRENNA ZARAGOZA #### [address] [address] BMPon 04-15-2025 BUN/Creatinine Ratio 9.4 ratio Low 10.0-22.0 [facility] Comment on above: Performed By: #### A BRENNA ZARAGOZA #### [address] [address] Calcium [Mass/Vol] 9.7 mg/dL Normal 8.7-10.4 [facility] Comment on above: Performed By: #### A MENDOZA ZARAGOZAGEL #### [address] [address] Chloride [Moles/Vol] 98 mmol/L Normal 98-110 [facility] Comment on above: Performed By: #### A MENDOZA ZARAGOZAGEL #### [address] [address] CO2 [Moles/Vol] 23 mmol/L Normal 22-32 [facility] Comment on above: Performed By: #### A BRENNA ZARAGOZA #### [address] [address] Creatinine [Mass/Vol] 4.35 mg/dL High 0.50-1.20 [facility] Comment on above: Result Comment: Test ing performed on [employer] analyzer using enzymatic creatinine methodology. Performed By: #### A BRENNA ZARAGOZA #### [address] [address] Electrolyte Balance 14.0 mEq/L Normal 4.0-15.0 [facility] Comment on above: Performed By: #### A BRENNA ZARAGOZA #### [address] [address] Glucose [Mass/Vol] 108 mg/dL Normal 82-115 [facility] Comment on above: Performed By: #### A BRENNA ZARAGOZA #### [address] [address] Potassium [Moles/Vol] 4.4 mmol/L Normal 3.5-5.0 [facility] Comment on above: Performed By: #### A BRENNA ZARAGOZA #### [address] [address] Sodium [Moles/Vol] 135 mmol/L Low 136-145 [facility] Comment on above: Performed By: #### A BRENNA ZARAGOZA #### [address] [address] Urea nitrogen [Mass/Vol] 41.0 mg/dL High 8.0-22.0 [facility] Comment on above: Performed By: #### A BRENNA ZARAGOZA #### [address] [address] CBCon 04-15-2025 Erythrocyte distribution width (RBC) [Ratio] 18.8 % High 11.5-15.5 [facility] Comment on above: Performed By: #### A BRENNA ZARAGOZA #### [place] [id number] Hematocrit (Bld) [Volume fraction] 28.8 % Low 34.0-46.0 [facility] Comment on above: Performed By: #### A BRENNA ZARAGOZA #### [place] [address] Hgb 9.4 G/dL Low 12.0-16.0 [facility] Comment on above: Performed By: #### A BRENNA ZARAGOZA #### [place] [address] MCH (RBC) [Entitic mass] 31.9 pg Normal 27.0-33.0 [facility] Comment on above: Performed By: #### A BRENNA ZARAGOZA #### [place] [address] MCHC 32.7 G/dL Normal 32.0-36.0 [facility] Comment on above: Performed By: #### A BRENNA ZARAGOZA #### [place] [address] MCV (RBC) [Entitic vol] 97.3 fL Normal 80.0-99.0 [facility] Comment on above: Performed By: #### A BRENNA ZARAGOZA #### [place] [address] Platelet 242 10 3/mcL Normal 150-450 [facility] Comment on above: Performed By: #### A BRENNA ZARAGOZA #### [place] [id number] Platelet mean volume (Bld) [Entitic vol] 8.2 fL Normal 6.6-10.5 [facility] Comment on above: Performed By: #### A BRENNA ZARAGOZA #### [address] [address] RBC 2.96 10 6/mcL Low 4.10-5.30 [facility] Comment on above: Performed By: #### A BRENNA ZARAGOZA #### [address] [address] WBC 7.8 10 3/mcL Normal 4.5-10.8 [facility] Comment on above: Performed By: #### A BRENNA ZARAGOZA #### [address] [address] LABORATORYOrdered By: SYSTEM SYSTEM on 04-15-2025 Basophils (Bld) [#/Vol] 0.1 103/mcL Normal 0.0 - 0.3 10^3/mcL AH Workflow SS Basophils/100 WBC (Bld) 1.3 % Normal 0.0 - 2.5 % AH Workflow SS Calcium [Mass/Vol] 9.7 mg/dL Normal 8.7 - 10. 4 mg/dL ADM SS Chloride [Moles/Vol] 98 mmol/L Normal 98 - 11 0 mEq/L ADM SS CO2 [Moles/Vol] 23 mmol/L Normal 22 - 32 mEq/L ADM SS Creatinine [Mass/Vol] 4.35 mg/dL High 0.50 - 1.20 mg/dL AH ADM SS Comment on above: Interpretive Data: T esting performed on [employer] analyzer using enzymatic creatinine methodology. Electrolyte Balance 14.0 mEq/L Normal 4.0 - 15 .0 mEq/L ADM SS Eosinophils (Bld) [#/Vol] 0.2 103/mcL Normal 0.0 - 0.7 10^3/mcL AH Workflow SS Eosinophils/100 WBC (Bld) 2.8 % Normal 0.0 - 6.0 % AH Workflow SS Erythrocyte distribution width (RBC) [Ratio] 18.8 % High 11.5 - 15.5 % AH Workflow SS Estimated Glomerular Filtration Rate 10 ml/min/1.73sqm Invalid Interpretation Code AH ADM SS Comment on above: Interpretive Data: Stages of Chronic Kidney Disease (CKD) Stage Description eGFR(ml/min/1.73 sq.m.) CKD 1 Normal kidney function or >=90 normal kindney function with possible kidney damage (ex. Proteinuria) CKD 2 Kidney damage with mild loss 60-89 of kidney function CKD 3a Mild to moderate loss of kidney 45-59 function CKD 3b Moderate to severe loss of 30-44 of kindey function CKD 4 Severe loss of kidney function 15-29 CKD 5 Kidney failure <15 Note: (go live 2024) the eGFR calculation was updated to the 2020 CKD-EPI creatinine equation without a race factor to calculate the eGFR results. Glucose [Mass/Vol] 108 mg/dL Normal 82 - 115 mg/dL AH ADM SS Hematocrit (Bld) [Volume fraction] 28.8 % Low 34.0 - 46.0 % AH Workflow SS Hemoglobin (Bld) [Mass/Vol] 9.4 G/dL Low 12.0 - 16.0 G/dL AH Workflow SS Lymphocytes (Bld) [#/Vol] 1.7 103/mcL Normal 0.9 - 4.3 10^3/mcL AH Workflow SS Lymphocytes/100 WBC (Bld) 21.8 % Normal 20.0 - 40.0 % AH Workflow SS Magnesium [Mass/Vol] 2.3 mg/dL Normal 1.6 - 2 .4 mg/dL AH ADM SS MCH (RBC) [Entitic mass] 31.9 pg Normal 27.0 - 33.0 pg AH Workflow SS MCHC 32.7 G/dL Normal 32.0 - 36.0 G/dL AH Workflow SS MCV (RBC) [Entitic vol] 97.3 fL Normal 80.0 - 99.0 fL AH Workflow SS Monocytes (Bld) [#/Vol] 0.8 103/mcL Normal 0.1 - 1.4 10^3/mcL AH Workflow SS Monocytes/100 WBC (Bld) 10.3 % Normal 2.0 - 13.0 % AH Workflow SS Neutrophils (Bld) [#/Vol] 5.0 103/mcL Normal 2.3 - 8.1 10^3/mcL AH Workflow SS Neutrophils/100 WBC (Bld) 63.8 % Normal 50.0 - 75.0 % AH Workflow SS Platelet mean volume (Bld) [Entitic vol] 8.2 fL Normal 6.6 - 10.5 fL AH Workflow SS Platelets (Bld) [#/Vol] 242 103/mcL Normal 150 - 450 10^3/mcL AH Workflow SS Potassium [Moles/Vol] 4.4 mmol/L Normal 3.5 - 5.0 mEq/L AH ADM SS RBC (Bld) [#/Vol] 2.96 106/mcL Low 4.10 - 5.3 0 10^6/mcL AH Workflow SS Sodium [Moles/Vol] 135 mmol/L Low 136 - 145 mEq/L AH ADM SS Urea nitrogen [Mass/Vol] 41.0 mg/dL High 8.0 - 22.0 mg/dL AH ADM SS Urea nitrogen/Creatinine [Mass ratio] 9.4 ratio Low 10.0 - 22.0 ratio AH ADM SS WBC (Bld) [#/Vol] 7.8 103/mcL Normal 4.5 - 10.8 10^3/mcL AH Workflow SS MGon 04-15-2025 Magnesium [Mass/Vol] 2.3 mg/dL Normal 1.6-2.4 [facility] Comment on above: Performed By: #### A BSARMOND, BRENNA #### [place] [address] LABORATORYOrdered By: SYSTEM SYSTEM on 04-14-2025 Magnesium [Mass/Vol] 2.2 mg/dL Normal 1.6 - 2 .4 mg/dL ADM SS MGon 04-14-2025 Magnesium [Mass/Vol] 2.2 mg/dL Normal 1.6-2.4 [facility] Comment on above: Performed By: #### G FR, CBC, ADIFF, CMP, ANEU #### [place] [address] .GFRon 04-13-2025 Estimated Glomerular Filtration Rate 9 ml/min/1.73sqm Normal [facility] Comment on above: Result Comment: Stages of Chronic Kidney Disease (CKD) Stage Description eGFR(ml/min/1.73 sq.m.) CKD 1 Normal kidney function or >=90 normal kindney function with possible kidney damage (ex. Proteinuria) CKD 2 Kidney damage with mild loss 60-89 of kidney function CKD 3a Mild to moderate loss of kidney 45-59 function CKD 3b Moderate to severe loss of 30-44 of kindey function CKD 4 Severe loss of kidney function 15-29 CKD 5 Kidney failure <15 Note: (go live 2024) the eGFR calculation was updated to the 2020 CKD-EPI creatinine equation without a race factor to calculate the eGFR results. Performed By: #### G FR, CBC, ADIFF, CMP, ANEU #### [address] [address] .Manual Diffon 04-13-2025 Bands 5.0 % Normal 0.0-5.0 [facility] Comment on above: Performed By: #### G FR, CBC, ADIFF, CMP, ANEU #### [address] [address] Basophil %, Manual 0.0 % Normal 0.0-2.5 [facility] Comment on above: Performed By: #### G FR, CBC, ADIFF, CMP, ANEU #### [place] [id number] Basophil, Abs Manual 0.0 10 3/mcL Normal 0.0-0.3 [facility] Comment on above: Performed By: #### G FR, CBC, ADIFF, CMP, ANEU #### [place] [address] Eosinophil %, Manual 3.0 % Normal 0.0-6.0 [facility] Comment on above: Performed By: #### G FR, CBC, ADIFF, CMP, ANEU #### [address] [address] Eosinophil, Abs Manual 0.3 10 3/mcL Normal 0.0-0.7 [facility] Comment on above: Performed By: #### G FR, CBC, ADIFF, CMP, ANEU #### [place] [id number] Lymphocyte %, Manual 19.0 % Low 20.0-40.0 [facility] Comment on above: Performed By: #### G FR, CBC, ADIFF, CMP, ANEU #### [address] [address] Lymphocyte, Abs Manual 1.6 10 3/mcL Normal 0.9-4.3 [facility] Comment on above: Performed By: #### G FR, CBC, ADIFF, CMP, ANEU #### [place] [address] Metamyelocyte 1.0 % Normal [facility] Comment on above: Performed By: #### G FR, CBC, ADIFF, CMP, ANEU #### [address] [address] Monocyte %, Manual 3.0 % Normal 2.0-13.0 [facility] Comment on above: Performed By: #### G FR, CBC, ADIFF, CMP, ANEU #### [address] [address] Monocyte, Abs Manual 0.3 10 3/mcL Normal 0.1-1.4 [facility] Comment on above: Performed By: #### G FR, CBC, ADIFF, CMP, ANEU #### [address] [address] Neutrophil %, Manual 69.0 % Normal 50.0-75.0 [facility] Comment on above: Performed By: #### G FR, CBC, ADIFF, CMP, ANEU #### [address] [address] Neutrophil, Abs Manual 6.3 10 3/mcL Normal 2.3-8.1 [facility] Comment on above: Performed By: #### G FR, CBC, ADIFF, CMP, ANEU #### [address] [address] Nucleated RBC 0.0 /100 WBC Normal [facility] Comment on above: Performed By: #### G FR, CBC, ADIFF, CMP, ANEU #### [address] [address] .Morphon 04-13-2025 Anisocytosis Ql (Bld) 1+ Normal [facility] Comment on above: Performed By: #### G FR, CBC, ADIFF, CMP, ANEU #### [address] [address] Platelet Estimate Normal Normal [facility] Comment on above: Performed By: #### G FR, CBC, ADIFF, CMP, ANEU #### [address] [address] Polychrom 1+ Normal [facility] Comment on above: Performed By: #### G FR, CBC, ADIFF, CMP, ANEU #### [address] [address] BMPon 04-13-2025 BUN/Creatinine Ratio 10.0 ratio Normal 10.0-22.0 [facility] Comment on above: Performed By: #### G FR, CBC, ADIFF, CMP, ANEU #### [address] [address] Calcium [Mass/Vol] 9.9 mg/dL Normal 8.7-10.4 [facility] Comment on above: Performed By: #### G FR, CBC, ADIFF, CMP, ANEU #### [address] [address] Chloride [Moles/Vol] 96 mmol/L Low 98-110 [facility] Comment on above: Performed By: #### G FR, CBC, ADIFF, CMP, ANEU #### [address] [address] CO2 [Moles/Vol] 28 mmol/L Normal 22-32 [facility] Comment on above: Performed By: #### G FR, CBC, ADIFF, CMP, ANEU #### [address] [address] Creatinine [Mass/Vol] 4.81 mg/dL High 0.50-1.20 [facility] Comment on above: Result Comment: Test ing performed on [employer] analyzer using enzymatic creatinine methodology. Performed By: #### G FR, CBC, ADIFF, CMP, ANEU #### [address] [address] Electrolyte Balance 10.0 mEq/L Normal 4.0-15.0 [facility] Comment on above: Performed By: #### G FR, CBC, ADIFF, CMP, ANEU #### [address] [address] Glucose [Mass/Vol] 106 mg/dL Normal 82-115 [facility] Comment on above: Performed By: #### G FR, CBC, ADIFF, CMP, ANEU #### [address] [address] Potassium [Moles/Vol] 3.9 mmol/L Normal 3.5-5.0 [facility] Comment on above: Performed By: #### G FR, CBC, ADIFF, CMP, ANEU #### [place] [address] Sodium [Moles/Vol] 134 mmol/L Low 136-145 [facility] Comment on above: Performed By: #### G FR, CBC, ADIFF, CMP, ANEU #### [place] [address] Urea nitrogen [Mass/Vol] 48.0 mg/dL High 8.0-22.0 [facility] Comment on above: Performed By: #### G FR, CBC, ADIFF, CMP, ANEU #### [place] [id number] CBCon 04-13-2025 Erythrocyte distribution width (RBC) [Ratio] 18.7 % High 11.5-15.5 [facility] Comment on above: Performed By: #### G FR, CBC, ADIFF, CMP, ANEU #### [place] [address] Hematocrit (Bld) [Volume fraction] 26.2 % Low 34.0-46.0 [facility] Comment on above: Performed By: #### G FR, CBC, ADIFF, CMP, ANEU #### [place] [address] Hgb 8.7 G/dL Low 12.0-16.0 [facility] Comment on above: Performed By: #### G FR, CBC, ADIFF, CMP, ANEU #### [place] [address] MCH (RBC) [Entitic mass] 32.0 pg Normal 27.0-33.0 [facility] Comment on above: Performed By: #### G FR, CBC, ADIFF, CMP, ANEU #### [place] [id number] MCHC 33.1 G/dL Normal 32.0-36.0 [facility] Comment on above: Performed By: #### G FR, CBC, ADIFF, CMP, ANEU #### [address] [place], [place] [address] MCV (RBC) [Entitic vol] 96.7 fL Normal 80.0-99.0 [facility] Comment on above: Performed By: #### G FR, CBC, ADIFF, CMP, ANEU #### [address] [address] Platelet 237 10 3/mcL Normal 150-450 [facility] Comment on above: Performed By: #### G FR, CBC, ADIFF, CMP, ANEU #### [address] [address] Platelet mean volume (Bld) [Entitic vol] 7.9 fL Normal 6.6-10.5 [facility] Comment on above: Performed By: #### G FR, CBC, ADIFF, CMP, ANEU #### [address] [address] RBC 2.71 10 6/mcL Low 4.10-5.30 [facility] Comment on above: Performed By: #### G FR, CBC, ADIFF, CMP, ANEU #### [address] [address] WBC 8.6 10 3/mcL Normal 4.5-10.8 [facility] Comment on above: Performed By: #### G FR, CBC, ADIFF, CMP, ANEU #### [address] [address] LABORATORYOrdered By: SYSTEM SYSTEM on 04-13-2025 Anisocytosis Ql (Bld) 1+ *NA* (04/13/25 8:20 AM) Invalid Interpretation Code AH Workflow SS Band form neutrophils/100 WBC (Bld) 5.0 % Normal 0.0 - 5.0 % AH Workflow SS Basophils (Bld) [#/Vol] 0.0 103/mcL Normal 0.0 - 0.3 10^3/mcL AH Workflow SS Basophils/100 WBC (Bld) 0.0 % Normal 0.0 - 2.5 % AH Workflow SS Calcium [Mass/Vol] 9.9 mg/dL Normal 8.7 - 10. 4 mg/dL AH ADM SS Chloride [Moles/Vol] 96 mmol/L Low 98 - 11 0 mEq/L AH ADM SS CO2 [Moles/Vol] 28 mmol/L Normal 22 - 32 mEq/L ADM SS Creatinine [Mass/Vol] 4.81 mg/dL High 0.50 - 1.20 mg/dL ADM SS Comment on above: Interpretive Data: T esting performed on [employer] analyzer using enzymatic creatinine methodology. Electrolyte Balance 10.0 mEq/L Normal 4.0 - 15 .0 mEq/L ADM SS Eosinophils (Bld) [#/Vol] 0.3 103/mcL Normal 0.0 - 0.7 10^3/mcL Workflow SS Eosinophils/100 WBC (Bld) 3.0 % Normal 0.0 - 6.0 % Workflow SS Erythrocyte distribution width (RBC) [Ratio] 18.7 % High 11.5 - 15.5 % Workflow SS Estimated Glomerular Filtration Rate 9 ml/min/1.73sqm Invalid Interpretation Code ADM SS Comment on above: Interpretive Data: Stages of Chronic Kidney Disease (CKD) Stage Description eGFR(ml/min/1.73 sq.m.) CKD 1 Normal kidney function or >=90 normal kindney function with possible kidney damage (ex. Proteinuria) CKD 2 Kidney damage with mild loss 60-89 of kidney function CKD 3a Mild to moderate loss of kidney 45-59 function CKD 3b Moderate to severe loss of 30-44 of kindey function CKD 4 Severe loss of kidney function 15-29 CKD 5 Kidney failure <15 Note: (go live 2024) the eGFR calculation was updated to the 2020 CKD-EPI creatinine equation without a race factor to calculate the eGFR results. Glucose [Mass/Vol] 106 mg/dL Normal 82 - 115 mg/dL ADM SS Hematocrit (Bld) [Volume fraction] 26.2 % Low 34.0 - 46.0 % Workflow SS Hemoglobin (Bld) [Mass/Vol] 8.7 G/dL Low 12.0 - 16.0 G/dL Workflow SS Lymphocytes (Bld) [#/Vol] 1.6 103/mcL Normal 0.9 - 4.3 10^3/mcL AH Workflow SS Lymphocytes/100 WBC (Bld) 19.0 % Low 20.0 - 40.0 % Workflow SS MCH (RBC) [Entitic mass] 32.0 pg Normal 27.0 - 33.0 pg AH Workflow SS MCHC 33.1 G/dL Normal 32.0 - 36.0 G/dL AH Workflow SS MCV (RBC) [Entitic vol] 96.7 fL Normal 80.0 - 99.0 fL AH Workflow SS Metamyelocytes/100 WBC (Bld) 1.0 % Invalid Interpretation Code Workflow SS Monocytes (Bld) [#/Vol] 0.3 103/mcL Normal 0.1 - 1.4 10^3/mcL AH Workflow SS Monocytes/100 WBC (Bld) 3.0 % Normal 2.0 - 13.0 % AH Workflow SS Neutrophils (Bld) [#/Vol] 6.3 103/mcL Normal 2.3 - 8.1 10^3/mcL AH Workflow SS Neutrophils/100 WBC (Bld) 69.0 % Normal 50.0 - 75.0 % AH Workflow SS Nucleated RBC 0.0 /100 WBC Invalid Interpretation Code Workflow SS Platelet mean volume (Bld) [Entitic vol] 7.9 fL Normal 6.6 - 10.5 fL Workflow SS Platelets (Bld) [#/Vol] 237 103/mcL Normal 150 - 450 10^3/mcL AH Workflow SS Platelets LM Ql (Bld) Normal *NA* (04/13/25 8:20 AM) Invalid Interpretation Code Workflow SS Polychromasia LM Ql (Bld) 1+ *NA* (04/13/25 8:20 AM) Invalid Interpretation Code Workflow SS Potassium [Moles/Vol] 3.9 mmol/L Normal 3.5 - 5.0 mEq/L ADM SS RBC (Bld) [#/Vol] 2.71 106/mcL Low 4.10 - 5.3 0 10^6/mcL AH Workflow SS Sodium [Moles/Vol] 134 mmol/L Low 136 - 145 mEq/L ADM SS Urea nitrogen [Mass/Vol] 48.0 mg/dL High 8.0 - 22.0 mg/dL ADM SS Urea nitrogen/Creatinine [Mass ratio] 10.0 ratio Normal 10.0 - 22.0 ratio ADM SS WBC (Bld) [#/Vol] 8.6 103/mcL Normal 4.5 - 10.8 10^3/mcL Workflow SS MGon 04-13-2025 Magnesium [Mass/Vol] 2.5 mg/dL High 1.6-2.4 [facility] Comment on above: Performed By: #### G FR, CBC, ADIFF, CMP, ANEU #### [place] [id number] [address] [place] [address] .GFRon 04-12-2025 Estimated Glomerular Filtration Rate 11 ml/min/1.73sqm Normal [facility] Comment on above: Result Comment: Stages of Chronic Kidney Disease (CKD) Stage Description eGFR(ml/min/1.73 sq.m.) CKD 1 Normal kidney function or >=90 normal kindney function with possible kidney damage (ex. Proteinuria) CKD 2 Kidney damage with mild loss 60-89 of kidney function CKD 3a Mild to moderate loss of kidney 45-59 function CKD 3b Moderate to severe loss of 30-44 of kindey function CKD 4 Severe loss of kidney function 15-29 CKD 5 Kidney failure <15 Note: (go live 2024) the eGFR calculation was updated to the 2020 CKD-EPI creatinine equation without a race factor to calculate the eGFR results. Performed By: #### G FR, CMP ####[place] [address] CMPon 04-12-2025 Albumin Level 2.5 G/dL Low 3.2-4.8 [facility] Comment on above: Performed By: #### G FR, CMP ####[place] [address] Albumin/Globulin [Mass ratio] 0.6 {ratio} Low 0.9-1.6 [facility] Comment on above: Performed By: #### G FR, CMP ####[place] [address] ALP [Catalytic activity/Vol] 84 U/L Normal 38-126 [facility] Comment on above: Performed By: #### G FR, CMP ####[place] [address] ALT [Catalytic activity/Vol] 92 U/L High 10-49 [facility] Comment on above: Performed By: #### G FR, CMP ####[place] [address] AST [Catalytic activity/Vol] 71 U/L High 8-34 [facility] Comment on above: Performed By: #### G FR, CMP ####[place] [address] Bili Total 0.30 mg/dL Normal 0.20-1.20 [facility] Comment on above: Result Comment: Use of this assay is not recommended for patients undergoing treatment with eltrombopag due to the potential for falsely elevated results. Performed By: #### G FR, CMP ####[place] [address] BUN/Creatinine Ratio 10.5 ratio Normal 10.0-22.0 [facility] Comment on above: Performed By: #### G FR, CMP ####[place] [address] Calcium [Mass/Vol] 9.6 mg/dL Normal 8.7-10.4 [facility] Comment on above: Performed By: #### G FR, CMP ####[place] [address] Chloride [Moles/Vol] 96 mmol/L Low 98-110 [facility] Comment on above: Performed By: #### G FR, CMP ####[place] [address] CO2 [Moles/Vol] 24 mmol/L Normal 22-32 [facility] Comment on above: Performed By: #### G FR, CMP ####[place] [address] Creatinine [Mass/Vol] 4.09 mg/dL High 0.50-1.20 [facility] Comment on above: Result Comment: Test ing performed on [employer] analyzer using enzymatic creatinine methodology. Performed By: #### G FR, CMP ####[place] [address] Electrolyte Balance 15.0 mEq/L Normal 4.0-15.0 [facility] Comment on above: Performed By: #### G FR, CMP ####[place] [address] Globulin 4.1 G/dL Normal 2.5-4.2 [facility] Comment on above: Performed By: #### G FR, CMP ####[address] [address] Glucose [Mass/Vol] 137 mg/dL High 82-115 [facility] Comment on above: Performed By: #### Maycol , CMP ####[address] [address] Potassium [Moles/Vol] 4.2 mmol/L Normal 3.5-5.0 [facility] Comment on above: Performed By: #### Maycol , CMP ####[address] [address] Sodium [Moles/Vol] 135 mmol/L Low 136-145 [facility] Comment on above: Performed By: #### Maycol , CMP ####[address] [address] Total Protein 6.6 G/dL Normal 5.7-8.2 [facility] Comment on above: Performed By: #### Maycol , CMP ####[address] [address] Urea nitrogen [Mass/Vol] 43.0 mg/dL High 8.0-22.0 [facility] Comment on above: Performed By: #### Maycol , CMP ####[address] [address] LABORATORYOrdered By: SYSTEM SYSTEM on 04-12-2025 Albumin BCP dye [Mass/Vol] 2.5 G/dL Low 3.2 - 4.8 G/dL ADM SS Albumin/Globulin [Mass ratio] 0.6 {ratio} Low 0.9 - 1.6 ratio ADM SS ALP [Catalytic activity/Vol] 84 U/L Normal 38 - 126 U/L ADM SS ALT No additional P-5'-P [Catalytic activity/Vol] 92 U/L High 10 - 49 U/L ADM SS AST [Catalytic activity/Vol] 71 U/L High 8 - 34 U/L ADM SS Bilirubin [Mass/Vol] 0.30 mg/dL Normal 0.20 - 1.20 mg/dL ADM SS Comment on above: Interpretive Data: U se of this assay is not recommended for patients undergoing treatment with eltrombopag due to the potential for falsely elevated results. Globulin 4.1 G/dL Normal 2.5 - 4.2 G/dL AH ADM SS Protein [Mass/Vol] 6.6 G/dL Normal 5.7 - 8.2 G/dL AH ADM SS MGon 04-12-2025 Magnesium [Mass/Vol] 2.2 mg/dL Normal 1.6-2.4 [facility] Comment on above: Performed By: #### G FR, CBC, ADIFF, CMP, ANEU #### [address] [address] .Auto Diffon 04-11-2025 Basophil, Absolute 0.1 10 3/mcL Normal 0.0-0.3 [facility] Comment on above: Performed By: #### G FR, CBC, ADIFF, CMP, ANEU #### [address] [address] Basophils/100 WBC (Bld) 0.5 % Normal 0.0-2.5 [facility] Comment on above: Performed By: #### G FR, CBC, ADIFF, CMP, ANEU #### [address] [address] Eosinophil, Absolute 0.1 10 3/mcL Normal 0.0-0.7 [facility] Comment on above: Performed By: #### G FR, CBC, ADIFF, CMP, ANEU #### [address] [address] Eosinophils/100 WBC (Bld) 1.0 % Normal 0.0-6.0 [facility] Comment on above: Performed By: #### G FR, CBC, ADIFF, CMP, ANEU #### [address] [address] Lymphocyte, Absolute 1.1 10 3/mcL Normal 0.9-4.3 [facility] Comment on above: Performed By: #### G FR, CBC, ADIFF, CMP, ANEU #### [address] [address] Lymphocytes/100 WBC (Bld) 9.0 % Low 20.0-40.0 [facility] Comment on above: Performed By: #### G FR, CBC, ADIFF, CMP, ANEU #### [address] [address] Monocyte, Absolute 0.8 10 3/mcL Normal 0.1-1.4 [facility] Comment on above: Performed By: #### G FR, CBC, ADIFF, CMP, ANEU #### [address] [address] Monocytes/100 WBC (Bld) 6.4 % Normal 2.0-13.0 [facility] Comment on above: Performed By: #### G FR, CBC, ADIFF, CMP, ANEU #### [address] [address] Neutrophils/100 WBC (Bld) 83.1 % High 50.0-75.0 [facility] Comment on above: Performed By: #### G FR, CBC, ADIFF, CMP, ANEU #### [address] [address] .GFRon 04-11-2025 Estimated Glomerular Filtration Rate 9 ml/min/1.73sqm [facility] Comment on above: Result Comment: Stages of Chronic Kidney Disease (CKD) Stage Description eGFR(ml/min/1.73 sq.m.) CKD 1 Normal kidney function or >=90 normal kindney function with possible kidney damage (ex. Proteinuria) CKD 2 Kidney damage with mild loss 60-89 of kidney function CKD 3a Mild to moderate loss of kidney 45-59 function CKD 3b Moderate to severe loss of 30-44 of kindey function CKD 4 Severe loss of kidney function 15-29 CKD 5 Kidney failure <15 Note: (go live 2024) the eGFR calculation was updated to the 2020 CKD-EPI creatinine equation without a race factor to calculate the eGFR results. Performed By: #### G FR, CBC, ADIFF, CMP, ANEU #### [address] [address] .NEUABSon 04-11-2025 Neutrophil, Absolute 10.4 10 3/mcL High 2.3-8.1 [facility] Comment on above: Performed By: #### G FR, CBC, ADIFF, CMP, ANEU #### [address] [address] BMPon 04-11-2025 BUN/Creatinine Ratio 11.2 ratio Normal 10.0-22.0 [facility] Comment on above: Performed By: #### G FR, CBC, ADIFF, CMP, ANEU #### [address] [address] Calcium [Mass/Vol] 9.3 mg/dL Normal 8.7-10.4 [facility] Comment on above: Performed By: #### G FR, CBC, ADIFF, CMP, ANEU #### [address] [address] Chloride [Moles/Vol] 93 mmol/L Low 98-110 [facility] Comment on above: Performed By: #### G FR, CBC, ADIFF, CMP, ANEU #### [address] [address] CO2 [Moles/Vol] 26 mmol/L Normal 22-32 [facility] Comment on above: Performed By: #### G FR, CBC, ADIFF, CMP, ANEU #### [address] [address] Creatinine [Mass/Vol] 4.72 mg/dL High 0.50-1.20 [facility] Comment on above: Result Comment: Test ing performed on [employer] analyzer using enzymatic creatinine methodology. Performed By: #### G FR, CBC, ADIFF, CMP, ANEU #### [address] [address] Electrolyte Balance 13.0 mEq/L Normal 4.0-15.0 [facility] Comment on above: Performed By: #### G FR, CBC, ADIFF, CMP, ANEU #### [address] [address] Glucose [Mass/Vol] 134 mg/dL High 82-115 [facility] Comment on above: Performed By: #### G FR, CBC, ADIFF, CMP, ANEU #### [address] [address] Potassium [Moles/Vol] 4.3 mmol/L Normal 3.5-5.0 [facility] Comment on above: Performed By: #### G FR, CBC, ADIFF, CMP, ANEU #### [place] [address] Sodium [Moles/Vol] 132 mmol/L Low 136-145 [facility] Comment on above: Performed By: #### G FR, CBC, ADIFF, CMP, ANEU #### [place] [id number] Urea nitrogen [Mass/Vol] 53.0 mg/dL High 8.0-22.0 [facility] Comment on above: Performed By: #### G FR, CBC, ADIFF, CMP, ANEU #### [place] [id number] [facility]Con 04-11-2025 Erythrocyte distribution width (RBC) [Ratio] 18.2 % High 11.5-15.5 [facility] Comment on above: Performed By: #### G FR, CBC, ADIFF, CMP, ANEU #### [place] [address] Hematocrit (Bld) [Volume fraction] 24.7 % Low 34.0-46.0 [facility] Comment on above: Performed By: #### G FR, CBC, ADIFF, CMP, ANEU #### [place] [address] Hgb 8.1 G/dL Low 12.0-16.0 [facility] Comment on above: Performed By: #### G FR, CBC, ADIFF, CMP, ANEU #### [place] [address] MCH (RBC) [Entitic mass] 31.4 pg Normal 27.0-33.0 [facility] Comment on above: Performed By: #### G FR, CBC, ADIFF, CMP, ANEU #### [place] [id number] MCHC 33.0 G/dL Normal 32.0-36.0 [facility] Comment on above: Performed By: #### G FR, CBC, ADIFF, CMP, ANEU #### [address] [address] MCV (RBC) [Entitic vol] 95.1 fL Normal 80.0-99.0 [facility] Comment on above: Performed By: #### G FR, CBC, ADIFF, CMP, ANEU #### [address] [address] Platelet 250 10 3/mcL Normal 150-450 [facility] Comment on above: Performed By: #### G FR, CBC, ADIFF, CMP, ANEU #### [place] [id number] Platelet mean volume (Bld) [Entitic vol] 7.6 fL Normal 6.6-10.5 [facility] Comment on above: Performed By: #### G FR, CBC, ADIFF, CMP, ANEU #### [place] [id number] RBC 2.59 10 6/mcL Low 4.10-5.30 [facility] Comment on above: Performed By: #### G FR, CBC, ADIFF, CMP, ANEU #### [address] [address] WBC 12.6 10 3/mcL High 4.5-10.8 [facility] Comment on above: Performed By: #### G FR, CBC, ADIFF, CMP, ANEU #### [address] [address] HFPon 04-11-2025 Bili Indirect 0.1 mg/dL Normal 0.1-10.0 [facility] Comment on above: Performed By: #### G FR, CBC, ADIFF, CMP, ANEU #### [address] [address] Albumin Level 2.4 G/dL Low 3.2-4.8 [facility] Comment on above: Performed By: #### G FR, CBC, ADIFF, CMP, ANEU #### [address] [address] Albumin/Globulin [Mass ratio] 0.6 {ratio} Low 0.9-1.6 [facility] Comment on above: Performed By: #### G FR, CBC, ADIFF, CMP, ANEU #### [address] [address] ALP [Catalytic activity/Vol] 84 U/L Normal 38-126 [facility] Comment on above: Performed By: #### G FR, CBC, ADIFF, CMP, ANEU #### [address] [address] ALT [Catalytic activity/Vol] 128 U/L High 10-49 [facility] Comment on above: Performed By: #### G FR, CBC, ADIFF, CMP, ANEU #### [place] [id number] AST [Catalytic activity/Vol] 89 U/L High 8-34 [facility] Comment on above: Performed By: #### G FR, CBC, ADIFF, CMP, ANEU #### [place] [address] Bili Direct 0.2 mg/dL Normal 0.0-0.4 [facility] Comment on above: Result Comment: Use of this assay is not recommended for patients undergoing treatment with eltrombopag due to the potential for falsely elevated results. Performed By: #### G FR, CBC, ADIFF, CMP, ANEU #### [place] [address] Bili Total 0.30 mg/dL Normal 0.20-1.20 [facility] Comment on above: Result Comment: Use of this assay is not recommended for patients undergoing treatment with eltrombopag due to the potential for falsely elevated results. Performed By: #### G FR, CBC, ADIFF, CMP, ANEU #### [place] [id number] Globulin 4.0 G/dL Normal 2.5-4.2 [facility] Comment on above: Performed By: #### G FR, CBC, ADIFF, CMP, ANEU #### [place] [address] Total Protein 6.4 G/dL Normal 5.7-8.2 [facility] Comment on above: Performed By: #### G FR, CBC, ADIFF, CMP, ANEU #### [facility] [address] [place] [address] LABORATORYOrdered By: SYSTEM SYSTEM on 04-11-2025 Albumin BCP dye [Mass/Vol] 2.4 G/dL Low 3.2 - 4.8 G/dL ADM SS Albumin/Globulin [Mass ratio] 0.6 {ratio} Low 0.9 - 1.6 ratio AH ADM SS ALP [Catalytic activity/Vol] 84 U/L Normal 38 - 126 U/L ADM SS ALT No additional P-5'-P [Catalytic activity/Vol] 128 U/L High 10 - 49 U/L ADM SS AST [Catalytic activity/Vol] 89 U/L High 8 - 34 U/L ADM SS Basophils (Bld) [#/Vol] 0.1 103/mcL Normal 0.0 - 0.3 10^3/mcL Workflow SS Basophils/100 WBC (Bld) 0.5 % Normal 0.0 - 2.5 % Workflow SS Bili Indirect 0.1 mg/dL Normal 0.1 - 10.0 mg/dL Chemistry S Bilirubin [Mass/Vol] 0.30 mg/dL Normal 0.20 - 1.20 mg/dL ADM SS Comment on above: Interpretive Data: U se of this assay is not recommended for patients undergoing treatment with eltrombopag due to the potential for falsely elevated results. Bilirubin.conjugated [Mass/Vol] 0.2 mg/dL Normal 0.0 - 0.4 mg/dL ADM SS Comment on above: Interpretive Data: U se of this assay is not recommended for patients undergoing treatment with eltrombopag due to the potential for falsely elevated results. Eosinophils (Bld) [#/Vol] 0.1 103/mcL Normal 0.0 - 0.7 10^3/mcL AH Workflow SS Eosinophils/100 WBC (Bld) 1.0 % Normal 0.0 - 6.0 % AH Workflow SS Globulin 4.0 G/dL Normal 2.5 - 4.2 G/dL AH ADM SS Lymphocytes (Bld) [#/Vol] 1.1 103/mcL Normal 0.9 - 4.3 10^3/mcL AH Workflow SS Lymphocytes/100 WBC (Bld) 9.0 % Low 20.0 - 40.0 % AH Workflow SS Monocytes (Bld) [#/Vol] 0.8 103/mcL Normal 0.1 - 1.4 10^3/mcL AH Workflow SS Monocytes/100 WBC (Bld) 6.4 % Normal 2.0 - 13.0 % AH Workflow SS Neutrophils (Bld) [#/Vol] 10.4 103/mcL High 2.3 - 8.1 10^3/mcL AH Workflow SS Neutrophils/100 WBC (Bld) 83.1 % High 50.0 - 75.0 % AH Workflow SS Protein [Mass/Vol] 6.4 G/dL Normal 5.7 - 8.2 G/dL AH ADM SS MGon 04-11-2025 Magnesium [Mass/Vol] 2.5 mg/dL High 1.6-2.4 [facility] Comment on above: Performed By: #### G FR, CBC, ADIFF, CMP, ANEU #### [address] [address] .Auto Diffon 04-10-2025 Basophil, Absolute 0.1 10 3/mcL Normal 0.0-0.3 [facility] Comment on above: Performed By: #### B MP, ADIFF, GFR, CBC, ANEU ####[address] [address] Basophils/100 WBC (Bld) 0.7 % Normal 0.0-2.5 [facility] Comment on above: Performed By: #### B MP, ADIFF, GFR, CBC, ANEU ####[address] [address] Eosinophil, Absolute 0.2 10 3/mcL Normal 0.0-0.7 [facility] Comment on above: Performed By: #### B MP, ADIFF, GFR, CBC, ANEU ####[address] [address] Eosinophils/100 WBC (Bld) 2.3 % Normal 0.0-6.0 [facility] Comment on above: Performed By: #### B MP, ADIFF, GFR, CBC, ANEU ####[address] [address] Lymphocyte, Absolute 1.2 10 3/mcL Normal 0.9-4.3 [facility] Comment on above: Performed By: #### B MP, ADIFF, GFR, CBC, ANEU ####[address] [address] Lymphocytes/100 WBC (Bld) 15.3 % Low 20.0-40.0 [facility] Comment on above: Performed By: #### B MP, ADIFF, GFR, CBC, ANEU ####[address] [address] Monocyte, Absolute 0.8 10 3/mcL Normal 0.1-1.4 [facility] Comment on above: Performed By: #### B MP, ADIFF, GFR, CBC, ANEU ####[address] [address] Monocytes/100 WBC (Bld) 9.7 % Normal 2.0-13.0 [facility] Comment on above: Performed By: #### B MP, ADIFF, GFR, CBC, ANEU ####[address] [address] Neutrophils/100 WBC (Bld) 72.0 % Normal 50.0-75.0 [facility] Comment on above: Performed By: #### B MP, ADIFF, GFR, CBC, ANEU ####[address] [address] .GFRon 04-10-2025 Estimated Glomerular Filtration Rate 12 ml/min/1.73sqm Normal [facility] Comment on above: Result Comment: Stages of Chronic Kidney Disease (CKD) Stage Description eGFR(ml/min/1.73 sq.m.) CKD 1 Normal kidney function or >=90 normal kindney function with possible kidney damage (ex. Proteinuria) CKD 2 Kidney damage with mild loss 60-89 of kidney function CKD 3a Mild to moderate loss of kidney 45-59 function CKD 3b Moderate to severe loss of 30-44 of kindey function CKD 4 Severe loss of kidney function 15-29 CKD 5 Kidney failure <15 Note: (go live 2024) the eGFR calculation was updated to the 2020 CKD-EPI creatinine equation without a race factor to calculate the eGFR results. Performed By: #### B MP, ADIFF, GFR, CBC, ANEU ####[address] [address] .NEUABSon 04-10-2025 Neutrophil, Absolute 5.9 10 3/mcL Normal 2.3-8.1 [facility] Comment on above: Performed By: #### B MP, ADIFF, GFR, CBC, ANEU ####[address] [address] BMPon 04-10-2025 BUN/Creatinine Ratio 10.6 ratio Normal 10.0-22.0 [facility] Comment on above: Order Comment: Hemol yzed; recollect. 04/10/2025 17:41:23 EDT Performed By: #### B MP, ADIFF, GFR, CBC, ANEU ####[address] [address] Calcium [Mass/Vol] 9.2 mg/dL Normal 8.7-10.4 [facility] Comment on above: Order Comment: Hemol yzed; recollect. 04/10/2025 17:41:23 EDT Performed By: #### B MP, ADIFF, GFR, CBC, ANEU ####[address] [address] Chloride [Moles/Vol] 94 mmol/L Low 98-110 [facility] Comment on above: Order Comment: Hemol yzed; recollect. 04/10/2025 17:41:23 EDT Performed By: #### B MP, ADIFF, GFR, CBC, ANEU ####[address] [address] CO2 [Moles/Vol] 25 mmol/L Normal 22-32 [facility] Comment on above: Order Comment: Hemol yzed; recollect. 04/10/2025 17:41:23 EDT Performed By: #### B MP, ADIFF, GFR, CBC, ANEU ####[address] [address] Creatinine [Mass/Vol] 3.95 mg/dL High 0.50-1.20 [facility] Comment on above: Order Comment: Hemol yzed; recollect. 04/10/2025 17:41:23 EDT Result Comment: Test ing performed on [employer] analyzer using enzymatic creatinine methodology. Performed By: #### B MP, ADIFF, GFR, CBC, ANEU ####[place] [address] Electrolyte Balance 17.0 mEq/L High 4.0-15.0 [facility] Comment on above: Order Comment: Hemol ymariama; recollect. 04/10/2025 17:41:23 EDT Performed By: #### B MP, ADIFF, GFR, CBC, ANEU ####[place] [address] Glucose [Mass/Vol] 114 mg/dL Normal 82-115 [facility] Comment on above: Order Comment: Hemol yzed; recollect. 04/10/2025 17:41:23 EDT Performed By: #### B MP, ADIFF, GFR, CBC, ANEU ####[place] [address] Potassium [Moles/Vol] 4.7 mmol/L Normal 3.5-5.0 [facility] Comment on above: Order Comment: Hemol yzed; recollect. 04/10/2025 17:41:23 EDT Performed By: #### B MP, ADIFF, GFR, CBC, ANEU ####[place] [address] Sodium [Moles/Vol] 136 mmol/L Normal 136-145 [facility] Comment on above: Order Comment: Hemol yzed; recollect. 04/10/2025 17:41:23 EDT Performed By: #### B MP, ADIFF, GFR, CBC, ANEU ####[place] [address] Urea nitrogen [Mass/Vol] 42.0 mg/dL High 8.0-22.0 [facility] Comment on above: Order Comment: Hemol yzed; recollect. 04/10/2025 17:41:23 EDT Performed By: #### B MP, ADIFF, GFR, CBC, ANEU ####[place] [address] CBCon 04-10-2025 Erythrocyte distribution width (RBC) [Ratio] 18.8 % High 11.5-15.5 [facility] Comment on above: Performed By: #### B MP, ADIFF, GFR, CBC, ANEU ####[place] [address] Hematocrit (Bld) [Volume fraction] 24.6 % Low 34.0-46.0 [facility] Comment on above: Performed By: #### B MP, ADIFF, GFR, CBC, ANEU ####[place] [address] Hgb 8.3 G/dL Low 12.0-16.0 [facility] Comment on above: Performed By: #### B MP, ADIFF, GFR, CBC, ANEU ####[place] [address] MCH (RBC) [Entitic mass] 32.3 pg Normal 27.0-33.0 [facility] Comment on above: Performed By: #### B MP, ADIFF, GFR, CBC, ANEU ####[place] [address] MCHC 33.8 G/dL Normal 32.0-36.0 [facility] Comment on above: Performed By: #### B MP, ADIFF, GFR, CBC, ANEU ####[place] [address] MCV (RBC) [Entitic vol] 95.6 fL Normal 80.0-99.0 [facility] Comment on above: Performed By: #### B MP, ADIFF, GFR, CBC, ANEU ####[place] [address] Platelet 224 10 3/mcL Normal 150-450 [facility] Comment on above: Performed By: #### B MP, ADIFF, GFR, CBC, ANEU ####[place] [address] Platelet mean volume (Bld) [Entitic vol] 7.7 fL Normal 6.6-10.5 [facility] Comment on above: Performed By: #### B MP, ADIFF, GFR, CBC, ANEU ####[place] [address] RBC 2.58 10 6/mcL Low 4.10-5.30 [facility] Comment on above: Performed By: #### B MP, ADIFF, GFR, CBC, ANEU ####[place] [address] WBC 8.1 10 3/mcL Normal 4.5-10.8 [facility] Comment on above: Performed By: #### B MP, ADIFF, GFR, CBC, ANEU ####[place] [address] LABORATORYOrdered By: SYSTEM SYSTEM on 04-10-2025 Basophils (Bld) [#/Vol] 0.1 103/mcL Normal 0.0 - 0.3 10^3/mcL AH Workflow SS Basophils/100 WBC (Bld) 0.7 % Normal 0.0 - 2.5 % AH Workflow SS Eosinophils (Bld) [#/Vol] 0.2 103/mcL Normal 0.0 - 0.7 10^3/mcL AH Workflow SS Eosinophils/100 WBC (Bld) 2.3 % Normal 0.0 - 6.0 % AH Workflow SS Lymphocytes (Bld) [#/Vol] 1.2 103/mcL Normal 0.9 - 4.3 10^3/mcL AH Workflow SS Lymphocytes/100 WBC (Bld) 15.3 % Low 20.0 - 40.0 % AH Workflow SS Monocytes (Bld) [#/Vol] 0.8 103/mcL Normal 0.1 - 1.4 10^3/mcL AH Workflow SS Monocytes/100 WBC (Bld) 9.7 % Normal 2.0 - 13.0 % AH Workflow SS Neutrophils (Bld) [#/Vol] 5.9 103/mcL Normal 2.3 - 8.1 10^3/mcL AH Workflow SS Neutrophils/100 WBC (Bld) 72.0 % Normal 50.0 - 75.0 % AH Workflow SS MGon 04-10-2025 Magnesium [Mass/Vol] 2.4 mg/dL Normal 1.6-2.4 [facility] Comment on above: Performed By: #### M G ####[place] [address] PROCALon 04-10-2025 Procalcitonin 2.55 ng/mL High 0.00-0.08 [facility] Comment on above: Result Comment: A procalcitonin (PCT) level above 2.0 ng/mL on the first day of ICU admission is associated with a high risk for progression to severe sepsis and/or septic shock. A PCT level below 0.5 ng/mL on the first day of ICU admission is associated with a low risk for progression to severe sepsis and/or septic shock. Note: Concentrations <0.5 ng/mL do not exclude an infection, on account of localized infections (without systemic signs) which can be associated with such low concentrations, or a systemic infection in its initial stages (<6 hours). Furthermore, increased procalcitonin can occur without infection. PCT concentrations between 0.5 and 2.0 ng/mL should be interpreted taking into account the patient's history. It is recommended to retest PCT within 6-24 hours if any concentrations <2 ng/mL are obtained. Performed At: [address] [id number] Isaiah Hall MD Ph:[phone] Performed By: #### G FR, CBC, ADIFF, CMP, ANEU #### [address] [address] .Auto Diffon 04-09-2025 Basophil, Absolute 0.0 10 3/mcL Normal 0.0-0.3 [facility] Comment on above: Performed By: #### G FR, CBC, ADIFF, CMP, ANEU #### [address] [address] Basophils/100 WBC (Bld) 0.6 % Normal 0.0-2.5 [facility] Comment on above: Performed By: #### G FR, CBC, ADIFF, CMP, ANEU #### [address] [address] Eosinophil, Absolute 0.2 10 3/mcL Normal 0.0-0.7 [facility] Comment on above: Performed By: #### G FR, CBC, ADIFF, CMP, ANEU #### [address] [address] Eosinophils/100 WBC (Bld) 2.4 % Normal 0.0-6.0 [facility] Comment on above: Performed By: #### G FR, CBC, ADIFF, CMP, ANEU #### [address] [address] Lymphocyte, Absolute 0.9 10 3/mcL Normal 0.9-4.3 [facility] Comment on above: Performed By: #### G FR, CBC, ADIFF, CMP, ANEU #### [address] [address] Lymphocytes/100 WBC (Bld) 11.1 % Low 20.0-40.0 [facility] Comment on above: Performed By: #### G FR, CBC, ADIFF, CMP, ANEU #### [address] [address] Monocyte, Absolute 0.5 10 3/mcL Normal 0.1-1.4 [facility] Comment on above: Performed By: #### G FR, CBC, ADIFF, CMP, ANEU #### [address] [address] Monocytes/100 WBC (Bld) 6.3 % Normal 2.0-13.0 [facility] Comment on above: Performed By: #### G FR, CBC, ADIFF, CMP, ANEU #### [address] [address] Neutrophils/100 WBC (Bld) 79.6 % High 50.0-75.0 [facility] Comment on above: Performed By: #### G FR, CBC, ADIFF, CMP, ANEU #### [address] [address] .GFRon 04-09-2025 Estimated Glomerular Filtration Rate 10 ml/min/1.73sqm Normal [facility] Comment on above: Result Comment: Stages of Chronic Kidney Disease (CKD) Stage Description eGFR(ml/min/1.73 sq.m.) CKD 1 Normal kidney function or >=90 normal kindney function with possible kidney damage (ex. Proteinuria) CKD 2 Kidney damage with mild loss 60-89 of kidney function CKD 3a Mild to moderate loss of kidney 45-59 function CKD 3b Moderate to severe loss of 30-44 of kindey function CKD 4 Severe loss of kidney function 15-29 CKD 5 Kidney failure <15 Note: (go live 2024) the eGFR calculation was updated to the 2020 CKD-EPI creatinine equation without a race factor to calculate the eGFR results. Performed By: #### G FR, CBC, ADIFF, CMP, ANEU #### [address] [address] .NEUABSon 04-09-2025 Neutrophil, Absolute 6.6 10 3/mcL Normal 2.3-8.1 [facility] Comment on above: Performed By: #### G FR, CBC, ADIFF, CMP, ANEU #### [place] [id number] BMPon 04-09-2025 BUN/Creatinine Ratio 9.8 ratio Low 10.0-22.0 [facility] Comment on above: Performed By: #### G FR, CBC, ADIFF, CMP, ANEU #### [place] [address] Calcium [Mass/Vol] 9.4 mg/dL Normal 8.7-10.4 [facility] Comment on above: Performed By: #### G FR, CBC, ADIFF, CMP, ANEU #### [place] [id number] Chloride [Moles/Vol] 102 mmol/L Normal 98-110 [facility] Comment on above: Performed By: #### G FR, CBC, ADIFF, CMP, ANEU #### [place] [id number] CO2 [Moles/Vol] 23 mmol/L Normal 22-32 [facility] Comment on above: Performed By: #### G FR, CBC, ADIFF, CMP, ANEU #### [place] [id number] Creatinine [Mass/Vol] 4.39 mg/dL High 0.50-1.20 [facility] Comment on above: Result Comment: Test ing performed on [employer] analyzer using enzymatic creatinine methodology. Performed By: #### G FR, CBC, ADIFF, CMP, ANEU #### [address] [address] Electrolyte Balance 13.0 mEq/L Normal 4.0-15.0 [facility] Comment on above: Performed By: #### G FR, CBC, ADIFF, CMP, ANEU #### [address] [address] Glucose [Mass/Vol] 97 mg/dL Normal 82-115 [facility] Comment on above: Performed By: #### G FR, CBC, ADIFF, CMP, ANEU #### [address] [address] Potassium [Moles/Vol] 4.3 mmol/L Normal 3.5-5.0 [facility] Comment on above: Performed By: #### G FR, CBC, ADIFF, CMP, ANEU #### [address] [address] Sodium [Moles/Vol] 138 mmol/L Normal 136-145 [facility] Comment on above: Performed By: #### G FR, CBC, ADIFF, CMP, ANEU #### [address] [address] Urea nitrogen [Mass/Vol] 43.0 mg/dL High 8.0-22.0 [facility] Comment on above: Performed By: #### G FR, CBC, ADIFF, CMP, ANEU #### [address] [address] CBCon 04-09-2025 Erythrocyte distribution width (RBC) [Ratio] 19.8 % High 11.5-15.5 [facility] Comment on above: Performed By: #### G FR, CBC, ADIFF, CMP, ANEU #### [address] [address] Hematocrit (Bld) [Volume fraction] 26.3 % Low 34.0-46.0 [facility] Comment on above: Performed By: #### G FR, CBC, ADIFF, CMP, ANEU #### [address] [address] Hgb 8.9 G/dL Low 12.0-16.0 [facility] Comment on above: Performed By: #### G FR, CBC, ADIFF, CMP, ANEU #### [address] [address] MCH (RBC) [Entitic mass] 32.1 pg Normal 27.0-33.0 [facility] Comment on above: Performed By: #### G FR, CBC, ADIFF, CMP, ANEU #### [place] [address] MCHC 33.8 G/dL Normal 32.0-36.0 [facility] Comment on above: Performed By: #### G FR, CBC, ADIFF, CMP, ANEU #### [place] [address] MCV (RBC) [Entitic vol] 94.9 fL Normal 80.0-99.0 [facility] Comment on above: Performed By: #### G FR, CBC, ADIFF, CMP, ANEU #### [place] [address] Platelet 238 10 3/mcL Normal 150-450 [facility] Comment on above: Performed By: #### G FR, CBC, ADIFF, CMP, ANEU #### [place] [address] Platelet mean volume (Bld) [Entitic vol] 7.5 fL Normal 6.6-10.5 [facility] Comment on above: Performed By: #### G FR, CBC, ADIFF, CMP, ANEU #### [place] [address] RBC 2.77 10 6/mcL Low 4.10-5.30 [facility] Comment on above: Performed By: #### G FR, CBC, ADIFF, CMP, ANEU #### [place] [id number] WBC 8.3 10 3/mcL Normal 4.5-10.8 [facility] Comment on above: Performed By: #### G FR, CBC, ADIFF, CMP, ANEU #### [place] [address] MGon 04-09-2025 Magnesium [Mass/Vol] 2.7 mg/dL High 1.6-2.4 [facility] Comment on above: Performed By: #### G FR, CBC, ADIFF, CMP, ANEU #### [address] [address] .Auto Diffon 04-08-2025 Basophil, Absolute 0.1 10 3/mcL Normal 0.0-0.3 [facility] Comment on above: Performed By: #### G FR, CBC, ADIFF, CMP, ANEU #### [address] [address] Basophils/100 WBC (Bld) 0.5 % Normal 0.0-2.5 [facility] Comment on above: Performed By: #### G FR, CBC, ADIFF, CMP, ANEU #### [address] [address] Eosinophil, Absolute 0.1 10 3/mcL Normal 0.0-0.7 [facility] Comment on above: Performed By: #### G FR, CBC, ADIFF, CMP, ANEU #### [address] [address] Eosinophils/100 WBC (Bld) 1.5 % Normal 0.0-6.0 [facility] Comment on above: Performed By: #### G FR, CBC, ADIFF, CMP, ANEU #### [address] [address] Lymphocyte, Absolute 1.1 10 3/mcL Normal 0.9-4.3 [facility] Comment on above: Performed By: #### G FR, CBC, ADIFF, CMP, ANEU #### [address] [address] Lymphocytes/100 WBC (Bld) 11.4 % Low 20.0-40.0 [facility] Comment on above: Performed By: #### G FR, CBC, ADIFF, CMP, ANEU #### [address] [address] Monocyte, Absolute 0.6 10 3/mcL Normal 0.1-1.4 [facility] Comment on above: Performed By: #### G FR, CBC, ADIFF, CMP, ANEU #### [address] [address] Monocytes/100 WBC (Bld) 7.0 % Normal 2.0-13.0 [facility] Comment on above: Performed By: #### G FR, CBC, ADIFF, CMP, ANEU #### [address] [address] Neutrophils/100 WBC (Bld) 79.6 % High 50.0-75.0 [facility] Comment on above: Performed By: #### G FR, CBC, ADIFF, CMP, ANEU #### [address] [address] Basophil, Absolute 0.1 10 3/mcL Normal 0.0-0.3 [facility] Comment on above: Performed By: #### G FR, CBC, ADIFF, CMP, ANEU #### [address] [address] Basophils/100 WBC (Bld) 0.7 % Normal 0.0-2.5 [facility] Comment on above: Performed By: #### G FR, CBC, ADIFF, CMP, ANEU #### [address] [address] Eosinophil, Absolute 0.2 10 3/mcL Normal 0.0-0.7 [facility] Comment on above: Performed By: #### G FR, CBC, ADIFF, CMP, ANEU #### [address] [address] Eosinophils/100 WBC (Bld) 1.3 % Normal 0.0-6.0 [facility] Comment on above: Performed By: #### G FR, CBC, ADIFF, CMP, ANEU #### [address] [address] Lymphocyte, Absolute 1.6 10 3/mcL Normal 0.9-4.3 [facility] Comment on above: Performed By: #### G FR, CBC, ADIFF, CMP, ANEU #### [address] [address] Lymphocytes/100 WBC (Bld) 13.8 % Low 20.0-40.0 [facility] Comment on above: Performed By: #### G FR, CBC, ADIFF, CMP, ANEU #### [place] [address] Monocyte, Absolute 0.8 10 3/mcL Normal 0.1-1.4 [facility] Comment on above: Performed By: #### G FR, CBC, ADIFF, CMP, ANEU #### [address] [address] Monocytes/100 WBC (Bld) 7.0 % Normal 2.0-13.0 [facility] Comment on above: Performed By: #### G FR, CBC, ADIFF, CMP, ANEU #### [address] [address] Neutrophils/100 WBC (Bld) 77.2 % High 50.0-75.0 [facility] Comment on above: Performed By: #### G FR, CBC, ADIFF, CMP, ANEU #### [place] [address] .GFRon 04-08-2025 Estimated Glomerular Filtration Rate 13 ml/min/1.73sqm Normal [facility] Comment on above: Result Comment: Stages of Chronic Kidney Disease (CKD) Stage Description eGFR(ml/min/1.73 sq.m.) CKD 1 Normal kidney function or >=90 normal kindney function with possible kidney damage (ex. Proteinuria) CKD 2 Kidney damage with mild loss 60-89 of kidney function CKD 3a Mild to moderate loss of kidney 45-59 function CKD 3b Moderate to severe loss of 30-44 of kindey function CKD 4 Severe loss of kidney function 15-29 CKD 5 Kidney failure <15 Note: (go live 2024) the eGFR calculation was updated to the 2020 CKD-EPI creatinine equation without a race factor to calculate the eGFR results. Performed By: #### G FR, CBC, ADIFF, CMP, ANEU #### [address] [id number] .Morphon 04-08-2025 Anisocytosis Ql (Bld) 1+ Normal [facility] Comment on above: Performed By: #### G FR, CBC, ADIFF, CMP, ANEU #### [address] [address] Macrocytosis 1+ Normal [facility] Comment on above: Performed By: #### G FR, CBC, ADIFF, CMP, ANEU #### [address] [address] Platelet Estimate Normal Normal [facility] Comment on above: Performed By: #### G FR, CBC, ADIFF, CMP, ANEU #### [address] [address] .NEUABSon 04-08-2025 Neutrophil, Absolute 7.4 10 3/mcL Normal 2.3-8.1 [facility] Comment on above: Performed By: #### G FR, CBC, ADIFF, CMP, ANEU #### [place] [address] Neutrophil, Absolute 9.2 10 3/mcL High 2.3-8.1 [facility] Comment on above: Performed By: #### G FR, CBC, ADIFF, CMP, ANEU #### [address] [address] ABO/Rh (Gel)on 04-08-2025 ABO/Rh Interp Positive Invalid Interpretation Code [facility] Comment on above: Performed By: #### A MENDOZA ZARAGOZAGEL #### [place] [id number] ABS (Gel)on 04-08-2025 ABSC Interp (Gel) Negative Normal [facility] Comment on above: Performed By: #### A MENDOZA ZARAGOZAGEL #### [place] [id number] APTTon 04-08-2025 aPTT Coag (Bld) [Time] s Critically abnormal 25.0-35.0 [facility] Comment on above: Result Comment: For Heparin anticoagulation therapy, the recommended therapeutic range is: 54-77 seconds (APTT Correlation with Anti-Xa therapeutic range of 0.3-0.7 units/ml). PLEASE REFERENCE THE PHARMACY PROTOCOL FOR DOSING. Performed By: #### G FR, CBC, ADIFF, CMP, ANEU #### [address] [address] [facility] BUN/Creatinine Ratio 7.7 ratio Low 10.0-22.0 [facility] Comment on above: Order Comment: hemol yzed Performed By: #### G FR, CBC, ADIFF, CMP, ANEU #### [address] [address] Calcium [Mass/Vol] 9.3 mg/dL Normal 8.7-10.4 [facility] Comment on above: Order Comment: hemol yzed Performed By: #### G FR, CBC, ADIFF, CMP, ANEU #### [address] [address] Chloride [Moles/Vol] 100 mmol/L Normal 98-110 [facility] Comment on above: Order Comment: hemol yzed Performed By: #### G FR, CBC, ADIFF, CMP, ANEU #### [address] [address] CO2 [Moles/Vol] 25 mmol/L Normal 22-32 [facility] Comment on above: Order Comment: hemol yzed Performed By: #### G FR, CBC, ADIFF, CMP, ANEU #### [address] [address] Creatinine [Mass/Vol] 3.52 mg/dL High 0.50-1.20 [facility] Comment on above: Order Comment: hemol yzed Result Comment: Test ing performed on [employer] analyzer using enzymatic creatinine methodology. Performed By: #### G FR, CBC, ADIFF, CMP, ANEU #### [address] [address] Electrolyte Balance 15.0 mEq/L Normal 4.0-15.0 [facility] Comment on above: Order Comment: hemol yzed Performed By: #### G FR, CBC, ADIFF, CMP, ANEU #### [address] [address] Glucose [Mass/Vol] 103 mg/dL Normal 82-115 [facility] Comment on above: Order Comment: hemol yzed Performed By: #### G FR, CBC, ADIFF, CMP, ANEU #### [place] [id number] Potassium [Moles/Vol] 4.2 mmol/L Normal 3.5-5.0 [facility] Comment on above: Order Comment: hemol yzed Performed By: #### G FR, CBC, ADIFF, CMP, ANEU #### [place] [id number] Sodium [Moles/Vol] 140 mmol/L Normal 136-145 [facility] Comment on above: Order Comment: hemol yzed Performed By: #### G FR, CBC, ADIFF, CMP, ANEU #### [place] [address] Urea nitrogen [Mass/Vol] 27.0 mg/dL High 8.0-22.0 [facility] Comment on above: Order Comment: hemol yzed Performed By: #### G FR, CBC, ADIFF, CMP, ANEU #### [place] [id number] CBCon 04-08-2025 Erythrocyte distribution width (RBC) [Ratio] 19.3 % High 11.5-15.5 [facility] Comment on above: Performed By: #### G FR, CBC, ADIFF, CMP, ANEU #### [place] [address] Hematocrit (Bld) [Volume fraction] 26.3 % Low 34.0-46.0 [facility] Comment on above: Performed By: #### G FR, CBC, ADIFF, CMP, ANEU #### [place] [address] Hgb 9.0 G/dL Low 12.0-16.0 [facility] Comment on above: Performed By: #### G FR, CBC, ADIFF, CMP, ANEU #### [place] [address] MCH (RBC) [Entitic mass] 32.4 pg Normal 27.0-33.0 [facility] Comment on above: Performed By: #### G FR, CBC, ADIFF, CMP, ANEU #### [address] [address] MCHC 34.3 G/dL Normal 32.0-36.0 [facility] Comment on above: Performed By: #### G FR, CBC, ADIFF, CMP, ANEU #### [address] [address] MCV (RBC) [Entitic vol] 94.3 fL Normal 80.0-99.0 [facility] Comment on above: Performed By: #### G FR, CBC, ADIFF, CMP, ANEU #### [place] [id number] Platelet 243 10 3/mcL Normal 150-450 [facility] Comment on above: Performed By: #### G FR, CBC, ADIFF, CMP, ANEU #### [place] [address] Platelet mean volume (Bld) [Entitic vol] 7.7 fL Normal 6.6-10.5 [facility] Comment on above: Performed By: #### G FR, CBC, ADIFF, CMP, ANEU #### [place] [id number] RBC 2.79 10 6/mcL Low 4.10-5.30 [facility] Comment on above: Performed By: #### G FR, CBC, ADIFF, CMP, ANEU #### [address] [address] WBC 9.2 10 3/mcL Normal 4.5-10.8 [facility] Comment on above: Performed By: #### G FR, CBC, ADIFF, CMP, ANEU #### [address] [address] Erythrocyte distribution width (RBC) [Ratio] 17.1 % High 11.5-15.5 [facility] Comment on above: Performed By: #### G FR, CBC, ADIFF, CMP, ANEU #### [address] [address] Hematocrit (Bld) [Volume fraction] 21.3 % Low 34.0-46.0 [facility] Comment on above: Performed By: #### G FR, CBC, ADIFF, CMP, ANEU #### [place] [address] Hgb 7.2 G/dL Low 12.0-16.0 [facility] Comment on above: Performed By: #### G FR, CBC, ADIFF, CMP, ANEU #### [place] [address] MCH (RBC) [Entitic mass] 33.9 pg High 27.0-33.0 [facility] Comment on above: Performed By: #### G FR, CBC, ADIFF, CMP, ANEU #### [place] [address] MCHC 33.6 G/dL Normal 32.0-36.0 [facility] Comment on above: Performed By: #### G FR, CBC, ADIFF, CMP, ANEU #### [place] [address] MCV (RBC) [Entitic vol] 101.1 fL High 80.0-99.0 [facility] Comment on above: Performed By: #### G FR, CBC, ADIFF, CMP, ANEU #### [place] [address] Platelet 264 10 3/mcL Normal 150-450 [facility] Comment on above: Performed By: #### G FR, CBC, ADIFF, CMP, ANEU #### [place] [address] Platelet mean volume (Bld) [Entitic vol] 8.2 fL Normal 6.6-10.5 [facility] Comment on above: Performed By: #### G FR, CBC, ADIFF, CMP, ANEU #### [place] [address] RBC 2.11 10 6/mcL Low 4.10-5.30 [facility] Comment on above: Performed By: #### G FR, CBC, ADIFF, CMP, ANEU #### [place] [id number] WBC 11.9 10 3/mcL High 4.5-10.8 [facility] Comment on above: Performed By: #### G FR, CBC, ADIFF, CMP, ANEU #### [place] [address] LABORATORYOrdered By: Yadira washington on 04-08-2025 ABO and Rh group Nom (Bld) Blood group A Rh(D) positive Invalid Interpretation Code AH BB Auto SS Blood group antibody screen Ql Negative ABSC (04/08/25 12:14 PM) Normal AH BB Auto SS RBC Product Ready RBC Ready for Pickup (04/08/25 12:04 PM) Normal AH BB Manual SS LABORATORYOrdered By: Leidy Martinez on 04-08-2025 Cholesterol [Mass/Vol] 104 mg/dL Normal 50 - 199 mg/dL ADM SS Comment on above: Interpretive Data: C holesterol Reference Interval: Less than 200 Desirable 200-239 Borderline high risk 240 and above High risk Cholesterol in HDL [Mass/Vol] 48 mg/dL Normal 40 - 59 mg/dL ADM SS Cholesterol in LDL [Mass/Vol] 35 mg/dL Normal 0 - 129 mg/dL ADM SS Triglyceride [Mass/Vol] 106 mg/dL Normal 3 - 149 mg/dL ADM SS LABORATORYOrdered By: SYSTEM SYSTEM on 04-08-2025 Lactate [Moles/Vol] 1.6 mmol/L Normal 0.5 - 2. 2 mmol/L ADM SS Troponin I.cardiac DL <= 0.01 ng/mL [Mass/Vol] [address] ng/L High 0 - 34 ng/L ADM SS Comment on above: Interpretive Data: High Sensitive Troponin I Reference Ranges: Female: 0-34 ng/L Male: 0-54 ng/L Testing performed on [employer] analyzer using direct chemiluminescent technology. Anisocytosis Ql (Bld) 1+ *NA* (04/08/25 7:28 AM) Invalid Interpretation Code AH Workflow SS aPTT Coag (Bld) [Time] s Invalid Interpretation Code 25.0 - 35.0 seconds [employer] SS Comment on above: Interpretive Data: F or Heparin anticoagulation therapy, the recommended therapeutic range is: 54-77 seconds (APTT Correlation with Anti-Xa therapeutic range of 0.3-0.7 units/ml). PLEASE REFERENCE THE PHARMACY PROTOCOL FOR DOSING. Lactate [Moles/Vol] 1.5 mmol/L Normal 0.5 - 2. 2 mmol/L AH ADM SS Macrocytes Ql (Bld) 1+ *NA* (04/08/25 7:28 AM) Invalid Interpretation Code Workflow SS Platelets LM Ql (Bld) Normal *NA* (04/08/25 7:28 AM) Invalid Interpretation Code Workflow SS LACon 04-08-2025 Lactic Acid Lvl 1.6 mmol/L Normal 0.5-2.2 [facility] Comment on above: Performed By: #### G FR, CBC, ADIFF, CMP, ANEU #### [address] [address] Lactic Acid Lvl 1.5 mmol/L Normal 0.5-2.2 [facility] Comment on above: Performed By: #### G FR, CBC, ADIFF, CMP, ANEU #### [address] [address] LIPIDon 04-08-2025 Cholesterol [Mass/Vol] 104 mg/dL Normal 50-199 [facility] Comment on above: Result Comment: Chol esterol Reference Interval: Less than 200 Desirable 200-239 Borderline high risk 240 and above High risk Performed By: #### G FR, CBC, ADIFF, CMP, ANEU #### [address] [address] Cholesterol in HDL [Mass/Vol] 48 mg/dL Normal 40-59 [facility] Comment on above: Performed By: #### G FR, CBC, ADIFF, CMP, ANEU #### [address] [address] Cholesterol in LDL [Mass/Vol] 35 mg/dL Normal 0-129 [facility] Comment on above: Performed By: #### G FR, CBC, ADIFF, CMP, ANEU #### [address] [address] Triglyceride [Mass/Vol] 106 mg/dL Normal 3-149 [facility] Comment on above: Performed By: #### G FR, CBC, ADIFF, CMP, ANEU #### [address] [address] MGon 04-08-2025 Magnesium [Mass/Vol] 2.5 mg/dL High 1.6-2.4 [facility] Comment on above: Performed By: #### G FR, CBC, ADIFF, CMP, ANEU #### [address] [address] RBC (Product)on 04-08-2025 RBC Product Ready RBC Ready for Pickup Normal [facility] Comment on above: Performed By: #### G FR, CBC, ADIFF, CMP, ANEU #### [address] [address] TROPHSon 04-08-2025 [place] [address] ng/L High 0-34 [facility] Comment on above: Result Comment: High Sensitive Troponin I Reference Ranges: Female: 0-34 ng/L Male: 0-54 ng/L Testing performed on [employer] analyzer using direct chemiluminescent technology. Performed By: #### G FR, CBC, ADIFF, CMP, ANEU #### [place] [address] XR CHEST 1 VIEWon 04-08-2025 XR CHEST 1 VIEW ORIGINAL EXAMINATION: ONE XRAY VIEW OF THE CHEST 04/08/2025 10:44 am COMPARISON: Chest x-ray 04/07/2025, CTA chest 04/05/2025. HISTORY: ORDERING SYSTEM PROVIDED HISTORY: Reason for Exam: shortness of breath FINDINGS: Cardiomediastinal silhouette is stable. There is central venous congestion and bilateral interstitial prominence with cephalization of the vessels. This appears mildly worsened compared to prior study. No large pleural effusion or pneumothorax. Osseous structures appear intact. Lower cervical fusion hardware is noted. Right reverse shoulder arthroplasty is noted. IMPRESSION: Mildly increased central venous congestion and bilateral interstitial prominence is concerning for worsening pulmonary edema. Interpreted by: Ze Hackett Preliminary Report By: Ze Hackett Electronically signed By Ze Hackett Dictated Date: 04/08/2025 10:50:23 AM Prelim Date: 04/08/2025 10:52:20 AM Sign Date: 04/08/2025 10:52:20 AM Ordering Provider: AILYN Brito [facility] .Auto Diffon 04-07-2025 Basophil, Absolute 0.1 10 3/mcL Normal 0.0-0.3 [facility] Comment on above: Performed By: #### G FR, CBC, ADIFF, CMP, ANEU #### [address] [address] Basophils/100 WBC (Bld) 0.6 % Normal 0.0-2.5 [facility] Comment on above: Performed By: #### G FR, CBC, ADIFF, CMP, ANEU #### [address] [address] Eosinophil, Absolute 0.0 10 3/mcL Normal 0.0-0.7 [facility] Comment on above: Performed By: #### G FR, CBC, ADIFF, CMP, ANEU #### [address] [address] Eosinophils/100 WBC (Bld) 0.3 % Normal 0.0-6.0 [facility] Comment on above: Performed By: #### G FR, CBC, ADIFF, CMP, ANEU #### [address] [address] Lymphocyte, Absolute 1.9 10 3/mcL Normal 0.9-4.3 [facility] Comment on above: Performed By: #### G FR, CBC, ADIFF, CMP, ANEU #### [address] [address] Lymphocytes/100 WBC (Bld) 10.1 % Low 20.0-40.0 [facility] Comment on above: Performed By: #### G FR, CBC, ADIFF, CMP, ANEU #### [address] [address] Monocyte, Absolute 1.3 10 3/mcL Normal 0.1-1.4 [facility] Comment on above: Performed By: #### G FR, CBC, ADIFF, CMP, ANEU #### [address] [address] Monocytes/100 WBC (Bld) 6.7 % Normal 2.0-13.0 [facility] Comment on above: Performed By: #### G FR, CBC, ADIFF, CMP, ANEU #### [address] [address] Neutrophils/100 WBC (Bld) 82.3 % High 50.0-75.0 [facility] Comment on above: Performed By: #### G FR, CBC, ADIFF, CMP, ANEU #### [place] [address] .GFRon 04-07-2025 Estimated Glomerular Filtration Rate 11 ml/min/1.73sqm Normal [facility] Comment on above: Result Comment: Stages of Chronic Kidney Disease (CKD) Stage Description eGFR(ml/min/1.73 sq.m.) CKD 1 Normal kidney function or >=90 normal kindney function with possible kidney damage (ex. Proteinuria) CKD 2 Kidney damage with mild loss 60-89 of kidney function CKD 3a Mild to moderate loss of kidney 45-59 function CKD 3b Moderate to severe loss of 30-44 of kindey function CKD 4 Severe loss of kidney function 15-29 CKD 5 Kidney failure <15 Note: (go live 2024) the eGFR calculation was updated to the 2020 CKD-EPI creatinine equation without a race factor to calculate the eGFR results. Performed By: #### G FR, CBC, ADIFF, CMP, ANEU #### [place] [address] .Manual Diffon 04-07-2025 Basophil %, Manual 3.0 % High 0.0-2.5 [facility] Comment on above: Performed By: #### G FR, CBC, ADIFF, CMP, ANEU #### [place] [address] Basophil, Abs Manual 0.5 10 3/mcL High 0.0-0.3 [facility] Comment on above: Performed By: #### G FR, CBC, ADIFF, CMP, ANEU #### [place] [address] Eosinophil %, Manual 0.0 % Normal 0.0-6.0 [facility] Comment on above: Performed By: #### G FR, CBC, ADIFF, CMP, ANEU #### [place] [address] Eosinophil, Abs Manual 0.0 10 3/mcL Normal 0.0-0.7 [facility] Comment on above: Performed By: #### G FR, CBC, ADIFF, CMP, ANEU #### [address] [address] Lymphocyte %, Manual 12.0 % Low 20.0-40.0 [facility] Comment on above: Performed By: #### G FR, CBC, ADIFF, CMP, ANEU #### [address] [address] Lymphocyte, Abs Manual 2.1 10 3/mcL Normal 0.9-4.3 [facility] Comment on above: Performed By: #### G FR, CBC, ADIFF, CMP, ANEU #### [address] [address] Monocyte %, Manual 2.0 % Normal 2.0-13.0 [facility] Comment on above: Performed By: #### G FR, CBC, ADIFF, CMP, ANEU #### [address] [address] Monocyte, Abs Manual 0.4 10 3/mcL Normal 0.1-1.4 [facility] Comment on above: Performed By: #### G FR, CBC, ADIFF, CMP, ANEU #### [address] [address] Neutrophil %, Manual 83.0 % High 50.0-75.0 [facility] Comment on above: Performed By: #### G FR, CBC, ADIFF, CMP, ANEU #### [address] [address] Neutrophil, Abs Manual 14.6 10 3/mcL High 2.3-8.1 [facility] Comment on above: Performed By: #### G FR, CBC, ADIFF, CMP, ANEU #### [address] [address] Nucleated RBC 0.0 /100 WBC Normal [facility] Comment on above: Performed By: #### G FR, CBC, ADIFF, CMP, ANEU #### [address] [address] .Morphon 04-07-2025 Macrocytosis 1+ Normal [facility] Comment on above: Performed By: #### G FR, CBC, ADIFF, CMP, ANEU #### [address] [address] Platelet Estimate Normal Normal [facility] Comment on above: Performed By: #### G FR, CBC, ADIFF, CMP, ANEU #### [address] [address] Polychrom 1+ Normal [facility] Comment on above: Performed By: #### G FR, CBC, ADIFF, CMP, ANEU #### [address] [address] .NEUABSon 04-07-2025 Neutrophil, Absolute 15.4 10 3/mcL High 2.3-8.1 [facility] Comment on above: Performed By: #### G FR, CBC, ADIFF, CMP, ANEU #### [address] [address] APTTon 04-07-2025 aPTT Coag (Bld) [Time] 36.0 s High 25.0-35.0 [facility] Comment on above: Result Comment: Spec imen hemolyzed. Results may be affected. For Heparin anticoagulation therapy, the recommended therapeutic range is: 54-77 seconds (APTT Correlation with Anti-Xa therapeutic range of 0.3-0.7 units/ml). PLEASE REFERENCE THE PHARMACY PROTOCOL FOR DOSING. Performed By: #### G FR, CBC, ADIFF, CMP, ANEU #### [address] [address] aPTT Coag (Bld) [Time] 94.7 s High 25.0-35.0 [facility] Comment on above: Result Comment: Resu lts verified by repeat analysis. - [id number] - 04/07/25, 12:59 PM For Heparin anticoagulation therapy, the recommended therapeutic range is: 54-77 seconds (APTT Correlation with Anti-Xa therapeutic range of 0.3-0.7 units/ml). PLEASE REFERENCE THE PHARMACY PROTOCOL FOR DOSING. Performed By: #### A BSGEL, ABOGEL #### [address] [address] aPTT Coag (Bld) [Time] 131.0 s Critically abnormal 25.0-35.0 [facility] Comment on above: Result Comment: Spec imen hemolyzed. Results may be affected. For Heparin anticoagulation therapy, the recommended therapeutic range is: 54-77 seconds (APTT Correlation with Anti-Xa therapeutic range of 0.3-0.7 units/ml). PLEASE REFERENCE THE PHARMACY PROTOCOL FOR DOSING. Performed By: #### G FR, CBC, ADIFF, CMP, ANEU #### [place] [address] CBCon 04-07-2025 Erythrocyte distribution width (RBC) [Ratio] 17.2 % High 11.5-15.5 [facility] Comment on above: Performed By: #### G FR, CBC, ADIFF, CMP, ANEU #### [place] [address] Hematocrit (Bld) [Volume fraction] 26.6 % Low 34.0-46.0 [facility] Comment on above: Performed By: #### G FR, CBC, ADIFF, CMP, ANEU #### [place] [address] Hgb 8.7 G/dL Low 12.0-16.0 [facility] Comment on above: Performed By: #### G FR, CBC, ADIFF, CMP, ANEU #### [place] [address] MCH (RBC) [Entitic mass] 32.5 pg Normal 27.0-33.0 [facility] Comment on above: Performed By: #### G FR, CBC, ADIFF, CMP, ANEU #### [place] [address] MCHC 32.8 G/dL Normal 32.0-36.0 [facility] Comment on above: Performed By: #### G FR, CBC, ADIFF, CMP, ANEU #### [place] [address] MCV (RBC) [Entitic vol] 99.2 fL High 80.0-99.0 [facility] Comment on above: Performed By: #### G FR, CBC, ADIFF, CMP, ANEU #### [address] [address] Platelet 331 10 3/mcL Normal 150-450 [facility] Comment on above: Performed By: #### G FR, CBC, ADIFF, CMP, ANEU #### [address] [address] Platelet mean volume (Bld) [Entitic vol] 7.8 fL Normal 6.6-10.5 [facility] Comment on above: Performed By: #### G FR, CBC, ADIFF, CMP, ANEU #### [address] [address] RBC 2.68 10 6/mcL Low 4.10-5.30 [facility] Comment on above: Performed By: #### G FR, CBC, ADIFF, CMP, ANEU #### [address] [address] WBC 18.7 10 3/mcL High 4.5-10.8 [facility] Comment on above: Performed By: #### G FR, CBC, ADIFF, CMP, ANEU #### [address] [address] Erythrocyte distribution width (RBC) [Ratio] 17.1 % High 11.5-15.5 [facility] Comment on above: Performed By: #### G FR, CBC, ADIFF, CMP, ANEU #### [address] [address] Hematocrit (Bld) [Volume fraction] 24.8 % Low 34.0-46.0 [facility] Comment on above: Performed By: #### G FR, CBC, ADIFF, CMP, ANEU #### [address] [address] Hgb 8.4 G/dL Low 12.0-16.0 [facility] Comment on above: Performed By: #### G FR, CBC, ADIFF, CMP, ANEU #### [address] [address] MCH (RBC) [Entitic mass] 34.2 pg High 27.0-33.0 [facility] Comment on above: Performed By: #### G FR, CBC, ADIFF, CMP, ANEU #### [address] [address] MCHC 33.9 G/dL Normal 32.0-36.0 [facility] Comment on above: Performed By: #### G FR, CBC, ADIFF, CMP, ANEU #### [address] [address] MCV (RBC) [Entitic vol] 101.0 fL High 80.0-99.0 [facility] Comment on above: Performed By: #### G FR, CBC, ADIFF, CMP, ANEU #### [address] [address] Platelet 298 10 3/mcL Normal 150-450 [facility] Comment on above: Performed By: #### G FR, CBC, ADIFF, CMP, ANEU #### [place] [address] Platelet mean volume (Bld) [Entitic vol] 8.0 fL Normal 6.6-10.5 [facility] Comment on above: Performed By: #### G FR, CBC, ADIFF, CMP, ANEU #### [place] [address] RBC 2.45 10 6/mcL Low 4.10-5.30 [facility] Comment on above: Performed By: #### G FR, CBC, ADIFF, CMP, ANEU #### [place] [id number] WBC 17.6 10 3/mcL High 4.5-10.8 [facility] Comment on above: Performed By: #### G FR, CBC, ADIFF, CMP, ANEU #### [address] [address] CMPon 04-07-2025 Albumin Level 2.7 G/dL Low 3.2-4.8 [facility] Comment on above: Performed By: #### G FR, CBC, ADIFF, CMP, ANEU #### [place] [id number] Albumin/Globulin [Mass ratio] 0.7 {ratio} Low 0.9-1.6 [facility] Comment on above: Performed By: #### G FR, CBC, ADIFF, CMP, ANEU #### [address] [address] ALP [Catalytic activity/Vol] 67 U/L Normal 38-126 [facility] Comment on above: Performed By: #### G FR, CBC, ADIFF, CMP, ANEU #### [address] [address] ALT [Catalytic activity/Vol] 48 U/L Normal 10-49 [facility] Comment on above: Performed By: #### G FR, CBC, ADIFF, CMP, ANEU #### [address] [address] AST [Catalytic activity/Vol] 159 U/L High 8-34 [facility] Comment on above: Performed By: #### G FR, CBC, ADIFF, CMP, ANEU #### [place] [address] Bili Total 0.30 mg/dL Normal 0.20-1.20 [facility] Comment on above: Result Comment: Use of this assay is not recommended for patients undergoing treatment with eltrombopag due to the potential for falsely elevated results. Performed By: #### G FR, CBC, ADIFF, CMP, ANEU #### [place] [address] BUN/Creatinine Ratio 7.8 ratio Low 10.0-22.0 [facility] Comment on above: Performed By: #### G FR, CBC, ADIFF, CMP, ANEU #### [address] [address] Calcium [Mass/Vol] 9.4 mg/dL Normal 8.7-10.4 [facility] Comment on above: Performed By: #### G FR, CBC, ADIFF, CMP, ANEU #### [place] [address] Chloride [Moles/Vol] 99 mmol/L Normal 98-110 [facility] Comment on above: Performed By: #### G FR, CBC, ADIFF, CMP, ANEU #### [place] [id number] CO2 [Moles/Vol] 24 mmol/L Normal 22-32 [facility] Comment on above: Performed By: #### G FR, CBC, ADIFF, CMP, ANEU #### [address] [address] Creatinine [Mass/Vol] 3.96 mg/dL High 0.50-1.20 [facility] Comment on above: Result Comment: Test ing performed on [employer] analyzer using enzymatic creatinine methodology. Performed By: #### G FR, CBC, ADIFF, CMP, ANEU #### [address] [address] Electrolyte Balance 15.0 mEq/L Normal 4.0-15.0 [facility] MAIN Comment on above: Performed By: #### G FR, CBC, ADIFF, CMP, ANEU #### [address] [address] Globulin 3.7 G/dL Normal 2.5-4.2 [facility] MAIN Comment on above: Performed By: #### G FR, CBC, ADIFF, CMP, ANEU #### [address] [address] Glucose [Mass/Vol] 111 mg/dL Normal 82-115 [facility]IN Comment on above: Performed By: #### G FR, CBC, ADIFF, CMP, ANEU #### [address] [address] Potassium [Moles/Vol] 4.6 mmol/L Normal 3.5-5.0 [facility]IN Comment on above: Performed By: #### G FR, CBC, ADIFF, CMP, ANEU #### [address] [address] Sodium [Moles/Vol] 138 mmol/L Normal 136-145 [facility] Comment on above: Performed By: #### G FR, CBC, ADIFF, CMP, ANEU #### [address] [address] Total Protein 6.4 G/dL Normal 5.7-8.2 [facility] MAIN Comment on above: Performed By: #### G FR, CBC, ADIFF, CMP, ANEU #### [address] [address] Urea nitrogen [Mass/Vol] 31.0 mg/dL High 8.0-22.0 [facility] Comment on above: Performed By: #### G FR, CBC, ADIFF, CMP, ANEU #### [address] [address] [place] 04-07-2025 Ferritin [Mass/Vol] 1990.9 ng/mL High 8.0-252.0 [facility] MAIN Comment on above: Performed By: #### G FR, CBC, ADIFF, CMP, ANEU #### [place] [address] FESon 04-07-2025 Iron [Mass/Vol] 18 ug/dL Low 50-170 [facility] Comment on above: Performed By: #### G FR, CBC, ADIFF, CMP, ANEU #### [place] [address] Iron Sat 3 % Normal [facility] Comment on above: Performed By: #### G FR, CBC, ADIFF, CMP, ANEU #### [place] [address] TIBC 618 mcg/dL High 250-500 [facility] Comment on above: Performed By: #### G FR, CBC, ADIFF, CMP, ANEU #### [place] [address] LABORATORYOrdered By: SYSTEM SYSTEM on 04-07-2025 aPTT Coag (Bld) [Time] 36.0 s High 25.0 - 35.0 seconds [facility] SS Comment on above: Result Comment: Spec imen hemolyzed. Results may be affected. Interpretive Data: F or Heparin anticoagulation therapy, the recommended therapeutic range is: 54-77 seconds (APTT Correlation with Anti-Xa therapeutic range of 0.3-0.7 units/ml). PLEASE REFERENCE THE PHARMACY PROTOCOL FOR DOSING. Lactate [Moles/Vol] 1.3 mmol/L Normal 0.5 - 2. 2 mmol/L AH ADM SS aPTT Coag (Bld) [Time] 94.7 s High 25.0 - 35.0 seconds [facility] SS Comment on above: Result Comment: Resu lts verified by repeat analysis. - [id number] - 04/07/25, 12:59 PM Interpretive Data: F or Heparin anticoagulation therapy, the recommended therapeutic range is: 54-77 seconds (APTT Correlation with Anti-Xa therapeutic range of 0.3-0.7 units/ml). PLEASE REFERENCE THE PHARMACY PROTOCOL FOR DOSING. Albumin BCP dye [Mass/Vol] 2.7 G/dL Low 3.2 - 4.8 G/dL ADM SS Albumin/Globulin [Mass ratio] 0.7 {ratio} Low 0.9 - 1.6 ratio ADM SS ALP [Catalytic activity/Vol] 67 U/L Normal 38 - 126 U/L ADM SS ALT No additional P-5'-P [Catalytic activity/Vol] 48 U/L Normal 10 - 49 U/L ADM SS AST [Catalytic activity/Vol] 159 U/L High 8 - 34 U/L ADM SS Basophils (Bld) [#/Vol] 0.5 103/mcL High 0.0 - 0.3 10^3/mcL Workflow SS Basophils/100 WBC (Bld) 3.0 % High 0.0 - 2.5 % Workflow SS Bilirubin [Mass/Vol] 0.30 mg/dL Normal 0.20 - 1.20 mg/dL ADM Comment on above: Interpretive Data: U se of this assay is not recommended for patients undergoing treatment with eltrombopag due to the potential for falsely elevated results. Eosinophils (Bld) [#/Vol] 0.0 103/mcL Normal 0.0 - 0.7 10^3/mcL Workflow SS Eosinophils/100 WBC (Bld) 0.0 % Normal 0.0 - 6.0 % Workflow SS Ferritin [Mass/Vol] 1990.9 ng/mL High 8.0 - 25 2.0 ng/mL ADM SS Globulin 3.7 G/dL Normal 2.5 - 4.2 G/dL ADM SS Iron [Mass/Vol] 18 ug/dL Low 50 - 170 mcg/dL ADM SS Iron binding capacity [Mass/Vol] 618 mcg/dL High 250 - 500 mcg/dL ADM SS Iron saturation [Mass fraction] 3 % Invalid Interpretation Code AH ADM SS Lymphocytes (Bld) [#/Vol] 2.1 103/mcL Normal 0.9 - 4.3 10^3/mcL AH Workflow SS Lymphocytes/100 WBC (Bld) 12.0 % Low 20.0 - 40.0 % AH Workflow SS Macrocytes Ql (Bld) 1+ *NA* (04/07/25 5:10 AM) Invalid Interpretation Code Workflow SS Monocytes (Bld) [#/Vol] 0.4 103/mcL Normal 0.1 - 1.4 10^3/mcL AH Workflow SS Monocytes/100 WBC (Bld) 2.0 % Normal 2.0 - 13.0 % AH Workflow SS Neutrophils (Bld) [#/Vol] 14.6 103/mcL High 2.3 - 8.1 10^3/mcL AH Workflow SS Neutrophils/100 WBC (Bld) 83.0 % High 50.0 - 75.0 % Workflow SS Nucleated RBC 0.0 /100 WBC Invalid Interpretation Code Workflow SS Polychromasia LM Ql (Bld) 1+ *NA* (04/07/25 5:10 AM) Invalid Interpretation Code Workflow SS Protein [Mass/Vol] 6.4 G/dL Normal 5.7 - 8.2 G/dL ADM SS LABORATORYOrdered By: LABCOR P CONTRIBUTOR_SYSTEM on 04-07-2025 Procalcitonin (LC) 2.55 ng/mL High 0.00-0.08 Sen monika Comment on above: Result Comment: A procalcitonin (PCT) level above 2.0 ng/mL on the first day of ICU admission is associated with a high risk for progression to severe sepsis and/or septic shock. A PCT level below 0.5 ng/mL on the first day of ICU admission is associated with a low risk for progression to severe sepsis and/or septic shock. Note: Concentrations <0.5 ng/mL do not exclude an infection, on account of localized infections (without systemic signs) which can be associated with such low concentrations, or a systemic infection in its initial stages (<6 hours). Furthermore, increased procalcitonin can occur without infection. PCT concentrations between 0.5 and 2.0 ng/mL should be interpreted taking into account the patient's history. It is recommended to retest PCT within 6-24 hours if any concentrations <2 ng/mL are obtained. Performed At: [facility] [place] [id number] [place], [place] [id number] Isaiah Hall MD Ph:[phone] LACon 04-07-2025 Lactic Acid Lvl 1.3 mmol/L Normal 0.5-2.2 [facility] Comment on above: Performed By: #### G FR, CBC, ADIFF, CMP, ANEU #### [facility] [address] [place] [address] Lactic Acid Lvl 2.8 mmol/L High 0.5-2.2 [facility] Comment on above: Performed By: #### G FR, CBC, ADIFF, CMP, ANEU #### [facility] [address] [place] [id number] MGon 04-07-2025 Magnesium [Mass/Vol] 2.6 mg/dL High 1.6-2.4 [facility] Comment on above: Performed By: #### G FR, CBC, ADIFF, CMP, ANEU #### [address] [address] No Panel Informationon 04-07 Microscopic examination of blood, culture Blood Culture: No Growth at 5 days. [facility] Work Phone: XR CHEST 1 VIEWon 04-07-2025 XR CHEST 1 VIEW ORIGINAL HISTORY: Short of breath COMPARISON: Previous day FINDINGS: Study is mildly limited by habitus. Lung volumes are low. There hazy airspace opacities in the lung bases left greater than right. Pulmonary vasculature is unremarkable in appearance. IMPRESSION: Low lung volumes and increased basilar atelectasis/consolidation versus soft tissue artifact Interpreted by: Rigo Metz MD Preliminary Report By: Rigo Metz MD Electronically signed By Rigo Metz MD Dictated Date: 04/07/2025 12:47:24 PM Prelim Date: 04/07/2025 12:48:06 PM Sign Date: 04/07/2025 12:48:06 PM Ordering Provider: EMERITA Brito [facility] .Auto Diffon 04-06-2025 Basophil, Absolute 0.1 10 3/mcL Normal 0.0-0.3 [facility] Comment on above: Performed By: #### G FR, CBC, ADIFF, CMP, ANEU #### [address] [address] Basophils/100 WBC (Bld) 0.5 % Normal 0.0-2.5 [facility] Comment on above: Performed By: #### G FR, CBC, ADIFF, CMP, ANEU #### [address] [address] Eosinophil, Absolute 0.1 10 3/mcL Normal 0.0-0.7 [facility]IN Comment on above: Performed By: #### G FR, CBC, ADIFF, CMP, ANEU #### [address] [address] Eosinophils/100 WBC (Bld) 0.6 % Normal 0.0-6.0 [facility] Comment on above: Performed By: #### G FR, CBC, ADIFF, CMP, ANEU #### [address] [address] Lymphocyte, Absolute 1.9 10 3/mcL Normal 0.9-4.3 [facility]IN Comment on above: Performed By: #### G FR, CBC, ADIFF, CMP, ANEU #### [address] [address] Lymphocytes/100 WBC (Bld) 13.5 % Low 20.0-40.0 [facility] Comment on above: Performed By: #### G FR, CBC, ADIFF, CMP, ANEU #### [address] [address] Monocyte, Absolute 1.0 10 3/mcL Normal 0.1-1.4 [facility] Comment on above: Performed By: #### G FR, CBC, ADIFF, CMP, ANEU #### [address] [address] Monocytes/100 WBC (Bld) 7.5 % Normal 2.0-13.0 [facility] Comment on above: Performed By: #### G FR, CBC, ADIFF, CMP, ANEU #### [address] [address] Neutrophils/100 WBC (Bld) 77.9 % High 50.0-75.0 [facility] Comment on above: Performed By: #### G FR, CBC, ADIFF, CMP, ANEU #### [address] [address] .GFRon 04-06-2025 Estimated Glomerular Filtration Rate 15 ml/min/1.73sqm [facility] MAIN Comment on above: Result Comment: Stages of Chronic Kidney Disease (CKD) Stage Description eGFR(ml/min/1.73 sq.m.) CKD 1 Normal kidney function or >=90 normal kindney function with possible kidney damage (ex. Proteinuria) CKD 2 Kidney damage with mild loss 60-89 of kidney function CKD 3a Mild to moderate loss of kidney 45-59 function CKD 3b Moderate to severe loss of 30-44 of kindey function CKD 4 Severe loss of kidney function 15-29 CKD 5 Kidney failure <15 Note: (go live 2024) the eGFR calculation was updated to the 2020 CKD-EPI creatinine equation without a race factor to calculate the eGFR results. Performed By: #### G FR, CBC, ADIFF, CMP, ANEU #### [place] [address] Estimated Glomerular Filtration Rate 13 ml/min/1.73sqm [facility] MAIN Comment on above: Result Comment: Stages of Chronic Kidney Disease (CKD) Stage Description eGFR(ml/min/1.73 sq.m.) CKD 1 Normal kidney function or >=90 normal kindney function with possible kidney damage (ex. Proteinuria) CKD 2 Kidney damage with mild loss 60-89 of kidney function CKD 3a Mild to moderate loss of kidney 45-59 function CKD 3b Moderate to severe loss of 30-44 of kindey function CKD 4 Severe loss of kidney function 15-29 CKD 5 Kidney failure <15 Note: (go live 2024) the eGFR calculation was updated to the 2020 CKD-EPI creatinine equation without a race factor to calculate the eGFR results. Performed By: #### G FR, CBC, ADIFF, CMP, ANEU #### [address] [address] .NEUABSon 04-06-2025 Neutrophil, Absolute 10.7 10 3/mcL High 2.3-8.1 [facility] MAIN Comment on above: Performed By: #### G FR, CBC, ADIFF, CMP, ANEU #### [place] [address] APTTon 04-06-2025 aPTT Coag (Bld) [Time] 67.7 s High 25.0-35.0 [facility] Comment on above: Result Comment: Spec imen hemolyzed. Results may be affected. For Heparin anticoagulation therapy, the recommended therapeutic range is: 54-77 seconds (APTT Correlation with Anti-Xa therapeutic range of 0.3-0.7 units/ml). PLEASE REFERENCE THE PHARMACY PROTOCOL FOR DOSING. Performed By: #### G FR, CBC, ADIFF, CMP, ANEU #### [place] [address] aPTT Coag (Bld) [Time] 30.1 s Normal 25.0-35.0 [facility] Comment on above: Result Comment: For Heparin anticoagulation therapy, the recommended therapeutic range is: 54-77 seconds (APTT Correlation with Anti-Xa therapeutic range of 0.3-0.7 units/ml). PLEASE REFERENCE THE PHARMACY PROTOCOL FOR DOSING. Performed By: #### G FR, CBC, ADIFF, CMP, ANEU #### [place] [address] CBCon 04-06-2025 Erythrocyte distribution width (RBC) [Ratio] 17.4 % High 11.5-15.5 [facility] Comment on above: Performed By: #### G FR, CBC, ADIFF, CMP, ANEU #### [place] [address] Hematocrit (Bld) [Volume fraction] 26.1 % Low 34.0-46.0 [facility] Comment on above: Performed By: #### G FR, CBC, ADIFF, CMP, ANEU #### [place] [address] Hgb 8.6 G/dL Low 12.0-16.0 [facility] Comment on above: Performed By: #### G FR, CBC, ADIFF, CMP, ANEU #### [place] [address] MCH (RBC) [Entitic mass] 32.9 pg Normal 27.0-33.0 [facility] Comment on above: Performed By: #### G FR, CBC, ADIFF, CMP, ANEU #### [place] [address] MCHC 32.8 G/dL Normal 32.0-36.0 [facility] Comment on above: Performed By: #### G FR, CBC, ADIFF, CMP, ANEU #### [place] [address] MCV (RBC) [Entitic vol] 100.5 fL High 80.0-99.0 [facility] Comment on above: Performed By: #### G FR, CBC, ADIFF, CMP, ANEU #### [place] [address] Platelet 214 10 3/mcL Normal 150-450 [facility] Comment on above: Performed By: #### G FR, CBC, ADIFF, CMP, ANEU #### [place] [address] Platelet mean volume (Bld) [Entitic vol] 8.1 fL Normal 6.6-10.5 [facility] Comment on above: Performed By: #### G FR, CBC, ADIFF, CMP, ANEU #### [place] [address] RBC 2.60 10 6/mcL Low 4.10-5.30 [facility] Comment on above: Performed By: #### G FR, CBC, ADIFF, CMP, ANEU #### [place] [address] WBC 13.8 10 3/mcL High 4.5-10.8 [facility] Comment on above: Performed By: #### G FR, CBC, ADIFF, CMP, ANEU #### [place] [address] CMPon 04-06-2025 Albumin Level 3.0 G/dL Low 3.2-4.8 [facility] Comment on above: Performed By: #### G FR, CBC, ADIFF, CMP, ANEU #### [place] [address] Albumin/Globulin [Mass ratio] 0.9 {ratio} Normal 0.9-1.6 [facility] Comment on above: Performed By: #### G FR, CBC, ADIFF, CMP, ANEU #### [address] [address] ALP [Catalytic activity/Vol] 61 U/L Normal 38-126 [facility] Comment on above: Performed By: #### G FR, CBC, ADIFF, CMP, ANEU #### [place] [id number] ALT [Catalytic activity/Vol] 34 U/L Normal 10-49 [facility] Comment on above: Performed By: #### G FR, CBC, ADIFF, CMP, ANEU #### [place] [id number] AST [Catalytic activity/Vol] 198 U/L High 8-34 [facility] Comment on above: Performed By: #### G FR, CBC, ADIFF, CMP, ANEU #### [place] [id number] Bili Total 0.40 mg/dL Normal 0.20-1.20 [facility] Comment on above: Result Comment: Use of this assay is not recommended for patients undergoing treatment with eltrombopag due to the potential for falsely elevated results. Performed By: #### G FR, CBC, ADIFF, CMP, ANEU #### [place] [address] BUN/Creatinine Ratio 7.8 ratio Low 10.0-22.0 [facility] Comment on above: Performed By: #### G FR, CBC, ADIFF, CMP, ANEU #### [place] [id number] Calcium [Mass/Vol] 9.4 mg/dL Normal 8.7-10.4 [facility] Comment on above: Performed By: #### G FR, CBC, ADIFF, CMP, ANEU #### [place] [id number] Chloride [Moles/Vol] 99 mmol/L Normal 98-110 [facility] Comment on above: Performed By: #### G FR, CBC, ADIFF, CMP, ANEU #### [address] [address] CO2 [Moles/Vol] 29 mmol/L Normal 22-32 [facility] Comment on above: Performed By: #### G FR, CBC, ADIFF, CMP, ANEU #### [address] [address] Creatinine [Mass/Vol] 3.09 mg/dL High 0.50-1.20 [facility] Comment on above: Result Comment: Test ing performed on [employer] analyzer using enzymatic creatinine methodology. Performed By: #### G FR, CBC, ADIFF, CMP, ANEU #### [place] [id number] Electrolyte Balance 11.0 mEq/L Normal 4.0-15.0 [facility] Comment on above: Performed By: #### G FR, CBC, ADIFF, CMP, ANEU #### [address] [address] Globulin 3.4 G/dL Normal 2.5-4.2 [facility] Comment on above: Performed By: #### G FR, CBC, ADIFF, CMP, ANEU #### [address] [address] Glucose [Mass/Vol] 120 mg/dL High 82-115 [facility] Comment on above: Performed By: #### G FR, CBC, ADIFF, CMP, ANEU #### [address] [address] Potassium [Moles/Vol] 4.4 mmol/L Normal 3.5-5.0 [facility] Comment on above: Performed By: #### G FR, CBC, ADIFF, CMP, ANEU #### [address] [address] Sodium [Moles/Vol] 139 mmol/L Normal 136-145 [facility] Comment on above: Performed By: #### G FR, CBC, ADIFF, CMP, ANEU #### [place] [id number] Total Protein 6.4 G/dL Normal 5.7-8.2 [facility] Comment on above: Performed By: #### G FR, CBC, ADIFF, CMP, ANEU #### [place] [address] Urea nitrogen [Mass/Vol] 24.0 mg/dL High 8.0-22.0 [facility] Comment on above: Performed By: #### G FR, CBC, ADIFF, CMP, ANEU #### [place] [address] Albumin Level 2.8 G/dL Low 3.2-4.8 [facility] Comment on above: Performed By: #### G FR, CBC, ADIFF, CMP, ANEU #### [place] [address] Albumin/Globulin [Mass ratio] 0.8 {ratio} Low 0.9-1.6 [facility] Comment on above: Performed By: #### G FR, CBC, ADIFF, CMP, ANEU #### [place] [id number] ALP [Catalytic activity/Vol] 60 U/L Normal 38-126 [facility] Comment on above: Performed By: #### G FR, CBC, ADIFF, CMP, ANEU #### [place] [id number] ALT [Catalytic activity/Vol] 44 U/L Normal 10-49 [facility] Comment on above: Performed By: #### G FR, CBC, ADIFF, CMP, ANEU #### [place] [id number] AST [Catalytic activity/Vol] 219 U/L High 8-34 [facility] Comment on above: Performed By: #### G FR, CBC, ADIFF, CMP, ANEU #### [place] [id number] Bili Total 0.50 mg/dL Normal 0.20-1.20 [facility] Comment on above: Result Comment: Use of this assay is not recommended for patients undergoing treatment with eltrombopag due to the potential for falsely elevated results. Performed By: #### G FR, CBC, ADIFF, CMP, ANEU #### [address] [address] BUN/Creatinine Ratio 7.4 ratio Low 10.0-22.0 [facility] Comment on above: Performed By: #### G FR, CBC, ADIFF, CMP, ANEU #### [address] [address] Calcium [Mass/Vol] 9.5 mg/dL Normal 8.7-10.4 [facility] Comment on above: Performed By: #### G FR, CBC, ADIFF, CMP, ANEU #### [address] [address] Chloride [Moles/Vol] 96 mmol/L Low 98-110 [facility] Comment on above: Performed By: #### G FR, CBC, ADIFF, CMP, ANEU #### [place] [id number] CO2 [Moles/Vol] 26 mmol/L Normal 22-32 [facility] Comment on above: Performed By: #### G FR, CBC, ADIFF, CMP, ANEU #### [address] [address] Creatinine [Mass/Vol] 3.65 mg/dL High 0.50-1.20 [facility] Comment on above: Result Comment: Test ing performed on [employer] analyzer using enzymatic creatinine methodology. Performed By: #### G FR, CBC, ADIFF, CMP, ANEU #### [address] [address] Electrolyte Balance 13.0 mEq/L Normal 4.0-15.0 [facility] Comment on above: Performed By: #### G FR, CBC, ADIFF, CMP, ANEU #### [address] [address] Globulin 3.7 G/dL Normal 2.5-4.2 [facility] Comment on above: Performed By: #### G FR, CBC, ADIFF, CMP, ANEU #### [address] [address] Glucose [Mass/Vol] 98 mg/dL Normal 82-115 [facility] Comment on above: Performed By: #### G FR, CBC, ADIFF, CMP, ANEU #### [address] [address] Potassium [Moles/Vol] 4.1 mmol/L Normal 3.5-5.0 [facility] Comment on above: Performed By: #### G FR, CBC, ADIFF, CMP, ANEU #### [address] [address] Sodium [Moles/Vol] 135 mmol/L Low 136-145 [facility] Comment on above: Performed By: #### G FR, CBC, ADIFF, CMP, ANEU #### [address] [address] Total Protein 6.5 G/dL Normal 5.7-8.2 [facility] Comment on above: Performed By: #### G FR, CBC, ADIFF, CMP, ANEU #### [address] [address] Urea nitrogen [Mass/Vol] 27.0 mg/dL High 8.0-22.0 [facility] Comment on above: Performed By: #### G FR, CBC, ADIFF, CMP, ANEU #### [address] [address] LABORATORYOrdered By: Mandy Kessler on 04-06-2025 BE Venous -3.5 mmol/L Low -3.0 - 3.0 mmol/L [facility] SS CO2 [Moles/Vol] 21.7 mmol/L Low 22.0 - 32.0 mmol/L [facility] SS HCO3 (Bld) [Moles/Vol] 20.7 mmol/L Low 21.0 - 30.0 mmol/L [facility] SS pCO2 Eh 33.8 mm[Hg] Low 41.0 - 51.0 mm Hg [facility] SS pH (Bld) 7.404 [pH] Normal 7.380 - 7.460 [facility] SS pO2 Eh 217.8 mm[Hg] High 35.0 - 40.0 mm Hg Main [facility] SS LABORATORYOrdered By: SYSTEM SYSTEM on 04-06-2025 PT Coag (PPP) [Time] 13.5 s Normal 9.0 - 1 4.4 seconds Swapnil Comment on above: Interpretive Data: E ffective 03/06/08, Protime results may be affected by some antibiotics (i.e. Ciprofloxacin, Azithromycin, Bactrim) which may potentiate the action of oral anticoagulants, with further increases in Protime/INR. PT International Ratio 1.2 ratio Invalid Interpretation Code Swapnil Comment on above: Interpretive Data: T gopal [employer] (CHEST, 1991, 102:[id number]) recommended therapeutic range for oral anticoagulant therapy is: LOW RISK: Prophylaxis of venous thrombosis INR: 2.0-3.0 Treatment of pulmonary embolism 2.0-3.0 Prevention of systemic embolism 2.0-3.0 HIGH RISK: Mechanical prosthetic valves 2.5-3.5 LACon 04-06-2025 Lactic Acid Lvl 2.3 mmol/L High 0.5-2.2 [facility] Comment on above: Order Comment: Order ed secondary to Lactic Acid result greater than or equal to 2.0 Performed By: #### L AC ####[facility] [place] [address] Lactic Acid Lvl 2.9 mmol/L High 0.5-2.2 [facility] Comment on above: Performed By: #### L AC ####[facility] [place] [address] MGon 04-06-2025 Magnesium [Mass/Vol] 2.8 mg/dL High 1.6-2.4 [facility] Comment on above: Performed By: #### G FR, CBC, ADIFF, CMP, ANEU #### [facility] [address] [place] [address] Magnesium [Mass/Vol] 2.0 mg/dL Normal 1.6-2.4 [facility] Comment on above: Performed By: #### M G ####[facility] [place] [id number] PROon 04-06-2025 INR Coag (PPP) [Relative time] 1.2 {INR} Normal [facility] Comment on above: Result Comment: [employer] (CHEST, 1992, 102:[id number]) recommended therapeutic range for oral anticoagulant therapy is: LOW RISK: Prophylaxis of venous thrombosis INR: 2.0-3.0 Treatment of pulmonary embolism 2.0-3.0 Prevention of systemic embolism 2.0-3.0 HIGH RISK: Mechanical prosthetic valves 2.5-3.5 Performed By: #### G FR, CBC, ADIFF, CMP, ANEU #### [place] [id number] PT Coag (PPP) [Time] 13.5 s Normal 9.0-14.4 [facility] Comment on above: Result Comment: Effe ctive 03/06/08, Protime results may be affected by some antibiotics (i.e. Ciprofloxacin, Azithromycin, Bactrim) which may potentiate the action of oral anticoagulants, with further increases in Protime/INR. Performed By: #### G FR, CBC, ADIFF, CMP, ANEU #### [place] [address] VBGon 04-06-2025 BE Venous -3.5 mmol/L Low -3.0-3.0 [facility] Comment on above: Performed By: #### G FR, CBC, ADIFF, CMP, ANEU #### [place] [address] CO2 [Moles/Vol] 21.7 mmol/L Low 22.0-32.0 [facility] Comment on above: Performed By: #### G FR, CBC, ADIFF, CMP, ANEU #### [place] [id number] HCO3 (Bld) [Moles/Vol] 20.7 mmol/L Low 21.0-30.0 [facility] Comment on above: Performed By: #### G FR, CBC, ADIFF, CMP, ANEU #### [place] [address] Oxygen saturation in Blood 99.0 % High 70.0-75.0 [facility] Comment on above: Performed By: #### G FR, CBC, ADIFF, CMP, ANEU #### [place] [address] pCO2 Eh 33.8 mmHg Low 41.0-51.0 [facility] Comment on above: Performed By: #### G FR, CBC, ADIFF, CMP, ANEU #### [facility] [address] [place] [address] pH Venous 7.404 Normal 7.380-7.460 [facility] Comment on above: Performed By: #### G FR, CBC, ADIFF, CMP, ANEU #### [facility] [address] [place] [address] pO2 Eh 217.8 mmHg High 35.0-40.0 [facility] Comment on above: Performed By: #### G FR, CBC, ADIFF, CMP, ANEU #### [address] [address] XR CHEST 1 VIEWon 04-06-2025 XR CHEST 1 VIEW ORIGINAL EXAMINATION: ONE XRAY VIEW OF THE CHEST 04/06/2025 2:21 pm COMPARISON: 01/04/2025 HISTORY: ORDERING SYSTEM PROVIDED HISTORY: Reason for Exam: SOB FINDINGS: Pulmonary vascular cephalization, veiling of the lower lobe vessels and cardiomegaly observed. There are scant bilateral pleural effusions. No acute bony abnormality is seen. IMPRESSION: Mild pulmonary edema pattern. Interpreted by: Douige Evans DO Preliminary Report By: Dougie Evans DO Electronically signed By Dougie Evans DO Dictated Date: 04/06/2025 2:53:35 PM Prelim Date: 04/06/2025 2:54:54 PM Sign Date: 04/06/2025 2:54:54 PM Ordering Provider: CESAR Brito [facility] .Auto Diffon 04-05-2025 Basophil, Absolute 0.1 10 3/mcL Normal 0.0-0.3 [facility] Comment on above: Performed By: #### G FR, CBC, ADIFF, CMP, ANEU #### [address] [address] Basophils/100 WBC (Bld) 0.4 % Normal 0.0-2.5 [facility] Comment on above: Performed By: #### G FR, CBC, ADIFF, CMP, ANEU #### [address] [id number] Eosinophil, Absolute 0.1 10 3/mcL Normal 0.0-0.7 [facility] Comment on above: Performed By: #### G FR, CBC, ADIFF, CMP, ANEU #### [address] [id number] Eosinophils/100 WBC (Bld) 0.4 % Normal 0.0-6.0 [facility] Comment on above: Performed By: #### G FR, CBC, ADIFF, CMP, ANEU #### [address] [address] Lymphocyte, Absolute 1.1 10 3/mcL Normal 0.9-4.3 [facility] Comment on above: Performed By: #### G FR, CBC, ADIFF, CMP, ANEU #### [address] [address] Lymphocytes/100 WBC (Bld) 7.4 % Low 20.0-40.0 [facility] Comment on above: Performed By: #### G FR, CBC, ADIFF, CMP, ANEU #### [address] [address] Monocyte, Absolute 1.0 10 3/mcL Normal 0.1-1.4 [facility] Comment on above: Performed By: #### G FR, CBC, ADIFF, CMP, ANEU #### [address] [address] Monocytes/100 WBC (Bld) 6.8 % Normal 2.0-13.0 [facility] Comment on above: Performed By: #### G FR, CBC, ADIFF, CMP, ANEU #### [address] [address] Neutrophils/100 WBC (Bld) 85.0 % High 50.0-75.0 [facility] Comment on above: Performed By: #### G FR, CBC, ADIFF, CMP, ANEU #### [address] [address] .GFRon 04-05-2025 Estimated Glomerular Filtration Rate 13 ml/min/1.73sqm Normal [facility] Comment on above: Result Comment: Stages of Chronic Kidney Disease (CKD) Stage Description eGFR(ml/min/1.73 sq.m.) CKD 1 Normal kidney function or >=90 normal kindney function with possible kidney damage (ex. Proteinuria) CKD 2 Kidney damage with mild loss 60-89 of kidney function CKD 3a Mild to moderate loss of kidney 45-59 function CKD 3b Moderate to severe loss of 30-44 of kindey function CKD 4 Severe loss of kidney function 15-29 CKD 5 Kidney failure <15 Note: (go live 2024) the eGFR calculation was updated to the 2020 CKD-EPI creatinine equation without a race factor to calculate the eGFR results. Performed By: #### G FR, CBC, ADIFF, CMP, ANEU #### [place] [address] .NEUABSon 04-05-2025 Neutrophil, Absolute 12.0 10 3/mcL High 2.3-8.1 [facility] Comment on above: Performed By: #### G FR, CBC, ADIFF, CMP, ANEU #### [place] [address] CBCon 04-05-2025 Erythrocyte distribution width (RBC) [Ratio] 17.3 % High 11.5-15.5 [facility] Comment on above: Performed By: #### G FR, CBC, ADIFF, CMP, ANEU #### [place] [address] Hematocrit (Bld) [Volume fraction] 28.8 % Low 34.0-46.0 [facility] Comment on above: Performed By: #### G FR, CBC, ADIFF, CMP, ANEU #### [place] [address] Hgb 9.4 G/dL Low 12.0-16.0 [facility] Comment on above: Performed By: #### G FR, CBC, ADIFF, CMP, ANEU #### [place] [address] MCH (RBC) [Entitic mass] 33.0 pg Normal 27.0-33.0 [facility] Comment on above: Performed By: #### G FR, CBC, ADIFF, CMP, ANEU #### [address] [address] MCHC 32.8 G/dL Normal 32.0-36.0 [facility] Comment on above: Performed By: #### G FR, CBC, ADIFF, CMP, ANEU #### [address] [address] MCV (RBC) [Entitic vol] 100.7 fL High 80.0-99.0 [facility] Comment on above: Performed By: #### G FR, CBC, ADIFF, CMP, ANEU #### [address] [address] Platelet 199 10 3/mcL Normal 150-450 [facility] Comment on above: Performed By: #### G FR, CBC, ADIFF, CMP, ANEU #### [place] [address] Platelet mean volume (Bld) [Entitic vol] 8.4 fL Normal 6.6-10.5 [facility] Comment on above: Performed By: #### G FR, CBC, ADIFF, CMP, ANEU #### [place] [id number] RBC 2.86 10 6/mcL Low 4.10-5.30 [facility] Comment on above: Performed By: #### G FR, CBC, ADIFF, CMP, ANEU #### [place] [id number] WBC 14.1 10 3/mcL High 4.5-10.8 [facility] Comment on above: Performed By: #### G FR, CBC, ADIFF, CMP, ANEU #### [address] [address] CMPon 04-05-2025 Albumin Level 3.1 G/dL Low 3.2-4.8 [facility] Comment on above: Performed By: #### G FR, CBC, ADIFF, CMP, ANEU #### [place] [id number] Albumin/Globulin [Mass ratio] 0.9 {ratio} Normal 0.9-1.6 [facility] Comment on above: Performed By: #### G FR, CBC, ADIFF, CMP, ANEU #### [address] [address] ALP [Catalytic activity/Vol] 58 U/L Normal 38-126 [facility] Comment on above: Performed By: #### G FR, CBC, ADIFF, CMP, ANEU #### [address] [address] ALT [Catalytic activity/Vol] 53 U/L High 10-49 [facility] Comment on above: Performed By: #### G FR, CBC, ADIFF, CMP, ANEU #### [address] [address] AST [Catalytic activity/Vol] 370 U/L High 8-34 [facility] Comment on above: Performed By: #### G FR, CBC, ADIFF, CMP, ANEU #### [place] [address] Bili Total 0.20 mg/dL Normal 0.20-1.20 [facility] Comment on above: Result Comment: Use of this assay is not recommended for patients undergoing treatment with eltrombopag due to the potential for falsely elevated results. Performed By: #### G FR, CBC, ADIFF, CMP, ANEU #### [place] [address] BUN/Creatinine Ratio 8.1 ratio Low 10.0-22.0 [facility] Comment on above: Performed By: #### G FR, CBC, ADIFF, CMP, ANEU #### [place] [address] Calcium [Mass/Vol] 9.5 mg/dL Normal 8.7-10.4 [facility] Comment on above: Performed By: #### G FR, CBC, ADIFF, CMP, ANEU #### [place] [address] Chloride [Moles/Vol] 96 mmol/L Low 98-110 [facility] Comment on above: Performed By: #### G FR, CBC, ADIFF, CMP, ANEU #### [place] [address] CO2 [Moles/Vol] 28 mmol/L Normal 22-32 [facility] Comment on above: Performed By: #### G FR, CBC, ADIFF, CMP, ANEU #### [address] [address] Creatinine [Mass/Vol] 3.59 mg/dL High 0.50-1.20 [facility] Comment on above: Result Comment: Test ing performed on [employer] analyzer using enzymatic creatinine methodology. Performed By: #### G FR, CBC, ADIFF, CMP, ANEU #### [address] [address] Electrolyte Balance 11.0 mEq/L Normal 4.0-15.0 [facility] Comment on above: Performed By: #### G FR, CBC, ADIFF, CMP, ANEU #### [address] [address] Globulin 3.3 G/dL Normal 2.5-4.2 [facility] Comment on above: Performed By: #### G FR, CBC, ADIFF, CMP, ANEU #### [address] [address] Glucose [Mass/Vol] 122 mg/dL High 82-115 [facility] Comment on above: Performed By: #### G FR, CBC, ADIFF, CMP, ANEU #### [address] [address] Potassium [Moles/Vol] 4.9 mmol/L Normal 3.5-5.0 [facility] Comment on above: Performed By: #### G FR, CBC, ADIFF, CMP, ANEU #### [address] [address] Sodium [Moles/Vol] 135 mmol/L Low 136-145 [facility] Comment on above: Performed By: #### G FR, CBC, ADIFF, CMP, ANEU #### [address] [address] Total Protein 6.4 G/dL Normal 5.7-8.2 [facility] Comment on above: Performed By: #### G FR, CBC, ADIFF, CMP, ANEU #### [facility] [address] [place] [address] Urea nitrogen [Mass/Vol] 29.0 mg/dL High 8.0-22.0 [facility] Comment on above: Performed By: #### G FR, CBC, ADIFF, CMP, ANEU #### [facility] [address] [place] [address] ANGIO CHEST W+W/O CONTRAS T DISSECTIONon 04-05-2025 CT ANGIO CHEST W+W/O CONTRAST DISSECTION ORIGINAL EXAMINATION: CTA OF THE CHEST WITH AND WITHOUT CONTRAST04/05/2025 4:42 am TECHNIQUE: CTA of the chest was performed before and after the administration of intravenous contrast. Multiplanar reformatted images are provided for review. MIP images are provided for review. Automated exposure control, iterative reconstruction, and/or weight based adjustment of the mA/kV was utilized to reduce the radiation dose to as low as reasonably achievable. COMPARISON: CTA chest 03/30/2017 HISTORY: ORDERING SYSTEM PROVIDED HISTORY: Reason for Exam: New chest pain, different in quality than STEMI pain, started 2 hours prior, radiating to neck FINDINGS: VASCULAR: Precontrast images demonstrate no intramural hematoma or mediastinal hemorrhage. There is no evidence of a thoracic aortic aneurysm, thoracic aortic dissection or penetrating aortic ulcer. The main pulmonary artery is normal in caliber. The pulmonary arteries are grossly unremarkable. The heart is normal in size. No pericardial effusion. Coronary artery stent/atherosclerosis. Aortic atherosclerosis. The great vessels are normal in course and caliber. There is a small amount of pericardial recess fluid. BONES: Remodel left-sided rib deformities. Degenerative changes of the spine. THYROID/AIRWAY: The thyroid gland is not well evaluated on this exam. The trachea and mainstem bronchi are patent. LYMPH NODES: No pathologically enlarged mediastinal, axillary, or hilar lymph nodes. LUNGS: Scattered pleuroparenchymal scarring. Calcified granuloma in the left upper lobe. Bilateral dependent and bibasilar atelectasis. No suspicious pulmonary masses. No focal consolidation, pleural effusion, or pneumothorax. ABDOMEN: Small hiatal hernia. The visualized upper abdomen demonstrates no acute abnormalities. IMPRESSION: No evidence of acute thoracic aortic syndrome or other vascular abnormality. No acute chest findings. I have personally reviewed the images of this examination and agree with the resident's findings and interpretation. 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 [id number] 04/04/2025 Patient: MARCOS SHELTON Sex: Female : 1950 Age: 74y MEASUREMENTS: Wt: 81.6 kg, Ht/Gustavo: 63.0 in, BMI: 31.89 ALLERGIES: Macrodantin, Penicillins, Atqqagf-AWP-FkO Reductase Inhibitors, WelChol, metolazone, nitrofurantoin, tramadol Medication Ordered Medication Administration Date/Time HYDROmorphone 09:04/04 HYDROmorphone (Dilaudid) IVP 0.5 mg given via Given (Dilaudid) IVP 0.5 Site# 1. Allergies verified and confirmed 5 rights. IV patency 09:04/04/2025 mg (NOW x1, HIGH established. IV site checked: no pain, redness, or swelling. IV Tanesha Krishnan R.N. ALERT flushed thoroughly pre-medication administration. IVP given by Not Scanned MEDICATION) nurse. Information reviewed with patient including reason for taking this medication. - 09:40 Tanesha Krishnan R.N. Zofran IVP 4 mg 09:04/04 Zofran IVP 4 mg given via Site# 1. Allergies verified Given (NOW x1) and confirmed 5 rights. IV patency established. IV site checked: no 09:04/04/2025 pain, redness, or swelling. IV flushed thoroughly pre-medication Tanesha Krishnan R.N. administration. IVP given by nurse. Information reviewed with Not Scanned patient including reason for taking this medication. - 09:41 Tanesha Krishnan R.N. 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 Allergies verified and confirmed 5 rights. Via 09:32 04/04/2025 (NOW x1) IV pump. IV patency established. IV site checked: no pain, redness, Tanesha Krishnan R.N. or swelling. IV flushed thoroughly pre-medication administration. Not Scanned Information reviewed with patient including reason for taking this medication. - 09:42 Tanesha Krishnan R.N. 09:39 04/04 Medication Continued: at the rate of 500 mL/hr. 450 mL remaining in bag #1. IV patency established. IV site checked: no pain, redness, or swelling. - 10:02 Tanesha Krishnan R.N. Heparin IVP 4000 09:35 04/04 Heparin IVP 4000 unit given via Site# 1. Allergies Given unit (NOW x1, Refer verified and confirmed 5 rights. IV patency established. IV site 09:04/04/2025 to Heparin checked: no pain, redness, or swelling. IV flushed thoroughly Berkley Edwards R.N. Nomogram for pre-medication administration. Information reviewed with patient. Not Scanned Dosing/Titration, Verbalizes understanding. - 09:55 Berkley Edwards R.N. HIGH ALERT MEDICATION, 09:35 04/04 Medication Co-sign: Verified dosage, concentration Round to nearest and rate. - 09:55 Tanesha Krishnan R.N. 50-100 units) Order Comments: 09:48 04/04/2025 (Cardiac Max dose 4000 units DVT/PE Max dose 8750 units) Rufus Torres D.O. 2 of 2 [facility] ED NURSES CLINICAL NOTEon ED NURSES CLINICAL NOTE Nurse Narrative - MARCOS SHELTON, : 1950, , Nurse Clinical Narrative [address] [place] [id number] 04/04/2025 09:30:00 Patient: MARCOS SHELTON Sex: Female : 1950 Age: 74y Disposition: Transfer to [facility] Disposition Decision Time: 09:33 04/04/2025 Departure Time: 09:39 04/04/2025 TRIAGE Arrived by EMS. ( pt atr dialysis sharp cp. ems reports ekg showed mi). Triage time: 09:26 04/04/2025. Acuity: LEVEL 1. Chief Complaint: CHEST PAIN. This started today. The patient has had nausea and vomiting. STEMI team: Onsite STEMI team notified. SEPSIS SCREEN: NEGATIVE. SIRS criteria negative. -- 09:40 04/04/25 EDT Berkley Edwards R.N. *b. -- 09:47 04/04/25 EDT Berkley Edwards R.N. 09:35 04/04/25. BP: 107/45 MAP: 66. HR: 71. RR: 16. O2 saturation: 100% Temperature: 98 F. Pain level now 6/10. -- 09:37 04/04/25 EDT Berkley Edwards R.N. Measurements: 09:34 04/04/25 Wt: 81.6 kg, Ht/Gustavo: 63.0 in, BMI: 31.89 -- 09:34 04/04/25 EDT Berkley Edwards R.N. Medications: albuterol sulfate HFA 90 mcg/actuation aerosol inhaler -- 09:35 04/04/25 EDT Berkley Edwards R.N. 1 of 5 Nurse Narrative - MARCOS SHELTON, : 1950, , clopidogrel 75 mg tablet: 75 mg once a day . -- 09:35 04/04/25 EDT Berkley Edwards R.N. furosemide 40 mg tablet: 20 mg once a day . -- 09:35 04/04/25 EDT Berkley Edwards R.N. metoprolol succinate ER 25 mg tablet,extended release 24 hr: 25 mg once a day . -- 09:35 04/04/25 PHUC Edwards R.N. ranolazine ER 500 mg tablet,extended release,12 hr: 500 mg twice a day . -- 09:04/04/25 PHUC Edwards R.N. levetiracetam 500 mg tablet: 500 mg twice a day . -- 09:04/04/25 PHUC Edwards R.N. omeprazole 40 mg capsule,delayed release: 40 mg twice a day . -- 09:04/04/25 PHUC Edwards R.N. levothyroxine 50 mcg tablet: 50 mcg once a day . -- 09:04/04/25 PHUC Edwards R.N. montelukast 10 mg tablet: 10 mg once a day . -- 09:04/04/25 PHUC Edwards R.N. rosuvastatin 40 mg tablet: 40 mg once a day . -- 09:04/04/25 PHUC Edwards R.N. hydrocodone 5 mg-acetaminophen 325 mg tablet: 1 tab every 6 hours as needed. -- 09:04/04/25 PHUC Edwards R.N. potassium chloride ER 20 mEq tablet,extended release: 40 mEq . (on off days of dialysis) -- 09:04/04/25 PHUC Edwards R.N. Bactrim DS 800 mg-160 mg tablet: 1 tab once a day . (for 14 days) -- 09:04/04/25 PHUC Edwards R.N. Allergies: metolazone -- 09:04/04/25 PHUC Edwards R.N. WelChol -- 09:04/04/25 PHUC Edwards R.N. Penicillins -- 09:04/04/25 PHUC Edwards R.N. Noykopz-ILU-NzF Reductase Inhibitors -- 09:04/04/25 PHUC Edwards R.N. tramadol -- 09:04/04/25 PHUC Edwards R.N. nitrofurantoin -- 09:04/04/25 PHUC Edwards R.N. Macrodantin -- 09:34 04/04/25 PHUC Edwards R.N. Problems: Coronary Artery Disease -- 09:35 04/04/25 PHUC Edwards R.N. Chronic kidney disease stage 5 -- 09:35 04/04/25 PHUC Edwards R.N. Hypertension -- 09:35 04/04/25 ANDREST Berkley Edwards R.N. Surgeries: left foot -- 09:35 04/04/25 PHUC Edwards R.N. Hysterectomy -- 09:35 04/04/25 PHUC Edwards R.N. Shoulder Surgery -- 09:35 04/04/25 PHUC Edwards R.N. Placement of stent in coronary artery. (x5) -- 09:35 04/04/25 PHUC Edwards R.N. 2 of 5 Nurse Narrative - MARCOS SHELTON, : 1950, , Carpal Tunnel Surgery -- 09:35 04/04/25 PHUC Edwards R.N. History 09:26 04/04/25. SOCIAL HX: Unknown if ever smoked. The patient has not traveled outside the [place] Infectious disease exposure: No infectious disease exposure. ABUSE ASSESSMENT: Abuse denied. No suspicion of abuse. SELF HARM ASSESSMENT: Self harm assessment was performed. The patient answered no to the question(s) Have you recently felt down, depressed, or hopeless?, Do you have thoughts of harming or killing yourself?, Do you have a plan for harming or killing yourself?, Have you recently had thoughts about harming or killing others?, Do you have any dangerous items in your possession?, Have you noticed less interest or pleasure in doing things?, Are you here because you tried to hurt yourself? and Have you ever tried to hurt yourself before today?. FALL RISK ASSESSMENT: Fall risk assessment completed. No risk factors identified. -- 09:40 04/04/25 PHUC Edwards R.N.Correction -- 09:45 04/04/25 PHUC Edwards R.N. 09:04/04/25. SOCIAL HX: Unknown if ever smoked. The patient has not traveled outside the [place] Infectious disease exposure: No infectious disease exposure. ABUSE ASSESSMENT: Abuse denied. No suspicion of abuse. SELF HARM ASSESSMENT: Self harm assessment was performed. The patient answered no to the question(s) Have you rece (more content not included)... Normal [facility] ED ORDER SHEET (CPOE ONLY)on 04-05-2025 ED ORDER SHEET (CPOE ONLY) Order Sheet - MARCOS SHELTON, : 1950, , Order Sheet [address] [id number] 04/04/2025 Patient: MARCOS SHELTON Sex: Female : 1950 Age: 74y MEASUREMENTS: Wt: 81.6 kg, Ht/Gustavo: 63.0 in, BMI: 31.89 ALLERGIES: Macrodantin, Penicillins, Wxvjcoi-TOF-HnI Reductase Inhibitors, WelChol, metolazone, nitrofurantoin, tramadol MEDICATION/IV/DRIP/FLUID ORDERS Order Description Priority Entered Acknowledged Completed HYDROmorphone (Dilaudid) 09:33 04/04/2025 09:38 09:40 IVP0.5 mg (NOW x1, HIGH Rufus Torres, 04/04/2025 04/04/2025 ALERT MEDICATION) D.O. Tanesha Eckert R.N. R.N. Zofran IVP4 mg (NOW x1) 09:33 04/04/2025 09:38 09:41 Rufus Torres, 04/04/2025 04/04/2025 D.O. Tanesha Eckert R.N. R.N. IV NS 0.9 %1000 mL at 500 09:37 04/04/2025 09:38 09:42 mL/hr (NOW x1) Rufus Torres, 04/04/2025 04/04/2025 D.O. Tanesha Eckert R.N. R.N. Heparin [id number] unit (NOW x1, 09:48 04/04/2025 09:52 09:55 Refer to Heparin Nomogram for Rufus Torres, 04/04/2025 04/04/2025 Dosing/Titration, HIGH ALERT DCynthia Sen R.N. MEDICATION, Round to nearest 1 of 3 Order Sheet - MARCOS SHELTON, : 1950, , 50-100 units) Order Comments: 09:48 04/04/2025: (Cardiac Max dose 4000 units DVT/PE Max dose 8750 units) Rufus Torres D.O. Reason for ordering with alerts: Benefits outweigh risks --09:48 04/04/2025 Rufus Torres D.O. LAB ORDERS Order Description Priority Entered Acknowledged Collected Completed CBC w Diff Stat Stat 09:48 04/04/2025 09:52 04/04/2025 Berkley Orlando R.N. D.ODarvin CMP Stat Stat 09:48 04/04/2025 09:52 04/04/2025 Berkley Orlando R.N. D.O. PT with INR Stat Stat 09:48 04/04/2025 09:52 04/04/2025 Berkley Orlando R.N. D.ODarvin PTT Stat Stat 09:48 04/04/2025 09:52 04/04/2025 Berkley Orlando R.N. D.O. Troponin-I Stat Stat 09:48 04/04/2025 09:52 04/04/2025 Berkley Orlando R.N. D.O. EKG - ED Stat Stat 09:48 04/04/2025 09:52 04/04/2025 Berkley Orlando R.N. D.O. 2 of 3 Order Sheet - MARCOS SHELTON, : 1950, , DIAGNOSTIC STUDY ORDERS Order Description Priority Entered Acknowledged Completed STAFF ORDERS Order Description Priority Entered Acknowledged Collected Completed Obtain Old EKG 09:48 04/04/2025 09:52 04/04/2025 Berkley Orlando R.N. D.O. Oriental Rug Repairer 09:48 04/04/2025 09:52 04/04/2025 Berkley Orlando R.N. D.O. Vital signs every 15 09:48 04/04/2025 09:52 04/04/2025 minutes Berkley Orlando R.N. D.O. IV Saline Lock 09:48 04/04/2025 09:52 04/04/2025 Berkley Orlando R.N. D.O. [Electronically signed by Rufus Torres D.O. (04/05/2025 00:50 EDT)] 3 of 3 Normal [facility] ED PHYSICIAN CLINICAL REPORT on 04-05-2025 ED PHYSICIAN CLINICAL REPORT Narrative - MARCOS SHELTON, : 1950, , Physician Clinical Narrative [address] [address] [id number] 04/04/2025 09:30:00 Patient: MARCOS SHELTON Sex: Female : 1950 Age: 74y Disposition: Transfer to [facility] Disposition Decision Time: 09:33 04/04/2025 Departure Time: 09:39 04/04/2025 Measurements Wt: 81.6 kg, Ht/Gustavo: 63.0 in, BMI: 31.89 Initial Vital Sign Measured Time BP MAP HR RR O2Sat ETCO2 Temp Pain GCS RTS 09:35 04/04/2025 107/45 66 71 16 100% 98.0 F 6 Time Seen: 09:26 04/04/2025. Arrived- By ambulance. Historian- patient. Independent historian- EMS personnel and family. HISTORY OF PRESENT ILLNESS Chief Complaint: CHEST PAIN. This started just prior to arrival patient was getting dialysis this when she started having chest pain. He has had a history of heart attacks and felt like her heart attacks that she had in the past. And presented to the emergency department by EMS. and is still present. The patient has had nausea and vomiting. REVIEW OF SYSTEMS NEUROLOGICAL: No fainting episodes. THROAT: No sore throat. GI: No abdominal pain. CONSTITUTIONAL: No fever. PAST HISTORY 1 of 9 Jay MARCOS BRIDEGS, : 1950, , See nurses notes. Chronic kidney disease stage 5 Coronary Artery Disease Hypertension Surgeries: Carpal Tunnel Surgery Hysterectomy left foot Placement of stent in coronary artery: (x5) Shoulder Surgery Medications: albuterol sulfate HFA 90 mcg/actuation aerosol inhaler Bactrim DS 800 mg-160 mg tablet: 1 tab once a day . (for 14 days) clopidogrel 75 mg tablet: 75 mg once a day . furosemide 40 mg tablet: 20 mg once a day . hydrocodone 5 mg-acetaminophen 325 mg tablet: 1 tab every 6 hours as needed. levetiracetam 500 mg tablet: 500 mg twice a day . levothyroxine 50 mcg tablet: 50 mcg once a day . metoprolol succinate ER 25 mg tablet,extended release 24 hr: 25 mg once a day . montelukast 10 mg tablet: 10 mg once a day . omeprazole 40 mg capsule,delayed release: 40 mg twice a day . potassium chloride ER 20 mEq tablet,extended release: 40 mEq . (on off days of dialysis) ranolazine ER 500 mg tablet,extended release,12 hr: 500 mg twice a day . rosuvastatin 40 mg tablet: 40 mg once a day . Allergies: Macrodantin metolazone nitrofurantoin Penicillins Qidndyf-XMF-IhA Reductase Inhibitors tramadol WelChol SOCIAL HISTORY 2 of 9 Jay MARCOS BRIDGES, : 1950, , No alcohol use or drug use. ADDITIONAL NOTES The nursing notes have been reviewed. PHYSICAL EXAM Appearance: Alert. Oriented X3. No acute distress. Eyes: Pupils equal, round and reactive to light. Eyes normal inspection. ENT: Ears normal. Nose normal. Neck: Normal inspection. Neck supple. CVS: Normal heart rate and rhythm. Heart sounds normal. Respiratory: No respiratory distress. Breath sounds normal. Abdomen: Soft and nontender. Skin: Skin warm and dry. Normal skin color. Normal skin turgor. Neuro: Oriented X 3. No motor deficit. LABS, X-RAYS, AND EKG 12-LEAD EKG: EKG time: 09:29 04/04/2025. Normal sinus rhythm. Rate: 65. Left axis deviation. ST elevation in lead I, aVL, V1 and V2. The study has been interpreted contemporaneously by me. Interpretation time: 09:29 04/04/2025. Laboratory Tests: APTT Final BAUTISTA: 04/04/2025 09:28:00 EDT MsgRcvd: 04/04/2025 10:06 EDT Lab Test Result Reference Status Received 43.6 sec 04/04/2025 10:06 PTT 25.4 - 38.4 Final Above high normal EDT CBC + DIFF Final BAUTISTA: 04/04/2025 09:28:00 EDT MsgRcvd: 04/04/2025 09:56 EDT 3 of 9 Narrative - MARCOS SHELTON, : 1950, , Lab Test Result Reference Status Received 04/04/2025 09:56 CBC + DIFF Final EDT CBC-COMPLETE BLOOD COUNT 04/04/2025 09:56 WBC 10.3 x 10/UL 4.5 - 10.8 Final EDT 3.27 x 10/UL 04/04/2025 09:56 RBC 4.10 - 5.30 Final Below low normal EDT 11.0 g/dl 04/04/2025 09:56 HEMOGLOBIN 12.0 - 16.0 Final Below low normal EDT 33.0 % 04/04/2025 09:56 HEMATOCRIT 34.0 - 46.0 Final Below low normal EDT 101 fl 04/04/2025 09:56 MCV 80 - 99 Final Above high normal EDT 34 pg 04/04/2025 09:56 MCH 27 - 33 Final Above high normal EDT 04/04/2025 09:56 MCHC 33 X10 3 32 - 36 Final EDT 04/04/2025 09:56 RDW/CV 14.5 % 12.0 - 15.6 Final EDT 04/04/2025 09:56 PLATELET 236 x10/UL 150 - 450 Final EDT 04/04/2025 09:56 MPV 7.9 fl 6.6 - 10.5 Final EDT AUTOMATED DIFFERENTIAL 04/04/2025 09:56 NEUT % 61.7 % 46.0 - 76.0 Final EDT 4 of 9 Narrative - MARCOS SHELTON, : 1950, , 04/04/2025 09:56 LYMPH % 26.2 % 20.0 - 45.0 Final EDT (more content not included)... Normal [facility] ED SUPER BILLon 04-05-2025 ED SUPER BILL [facility] - CAT MARCOS, : 1950, , [address] [address] [id number] 04/04/2025 Patient: MARCOS SHELTON Sex: Female : 1950 Age: 74y Facility Professional Category Item Description Code Code Quantity Fee Total Nurse/E/M EMERGENCY 343136 1 $0.00 $0.00 DEPT VISIT HIGH SEVERITYFUNCJ (75046-57) Nurse/IV/IM/Infusions IVP additional [id number] 2 $0.00 $0.00 push (31369) Nurse/IV/IM/Infusions IVP initial (93760) 521528 1 $0.00 $0.00 Grand $0.00 Total Providers Rufus Torres D.O. Chief Complaint CHEST PAIN. Principal Diagnosis Acute anterior myocardial infarction with ST elevation and elevated markers (STEMI). 1 of 2 [facility] - CAT MARCOS, : 1950, , ICD-10 Codes I21.09: ST elevation (STEMI) myocardial infarction involving other coronary artery of anterior wall 2 of 2 Normal [facility] ED VISIT SUMMARYon ED VISIT SUMMARY Visit Overview - NILSON CAVANAUGH MARCOS, : 1950, , Visit Overview [address] [address] [id number] 04/04/2025 Patient: MARCOS SHELTON Sex: Female : 1950 Age: 74y 04/05/2025 12:50 AM EDT ED Arrival:04/04/2025 EDT Status: Recent Travel:no Language:eng Adv Directive:Unknown Isolation Status: Ethnicity:N Fall Risk:no risk Infectious Disease Exposure:no Measurements:5'3 / 160.0 Self-Harm Status:no risk Sepsis Screen:negative cm 180.0 lb / 81.6 kg Chief Complaint:CHEST PAIN and (pt atr dialysis sharp cp. ems reports ekg showed mi) ALLERGIES Macrodantin metolazone nitrofurantoin Penicillins Tmphezg-DKE-TvT Reductase Inhibitors tramadol WelChol HOME MEDICATIONS 1 of 4 Visit Overview - MARCOS SHELTON, : 1950, , albuterol sulfate HFA 90 mcg/actuation aerosol inhaler Bactrim DS 800 mg-160 mg tablet: 1 tab once a day . (for 14 days) clopidogrel 75 mg tablet: 75 mg once a day . furosemide 40 mg tablet: 20 mg once a day . hydrocodone 5 mg-acetaminophen 325 mg tablet: 1 tab every 6 hours as needed. levetiracetam 500 mg tablet: 500 mg twice a day . levothyroxine 50 mcg tablet: 50 mcg once a day . metoprolol succinate ER 25 mg tablet,extended release 24 hr: 25 mg once a day . montelukast 10 mg tablet: 10 mg once a day . omeprazole 40 mg capsule,delayed release: 40 mg twice a day . potassium chloride ER 20 mEq tablet,extended release: 40 mEq . (on off days of dialysis) ranolazine ER 500 mg tablet,extended release,12 hr: 500 mg twice a day . rosuvastatin 40 mg tablet: 40 mg once a day . PAST MEDICAL HISTORY / PROBLEMS Chronic kidney disease stage 5 Coronary Artery Disease Hypertension See nurses notes PAST SURGICAL HISTORY Carpal Tunnel Surgery Hysterectomy left foot Placement of stent in coronary artery. (x5) Shoulder Surgery SOCIAL HISTORY Smoking status: Unknown ED COURSE MEDICATIONS GIVEN IN EMERGENCY DEPARTMENT 09:04/04/25 HYDROmorphone (Dilaudid) IVP 0.5 mg 09:31 08/13/25 Zofran IVP 4 mg 2 of 4 Visit Overview - MARCOS SHELTON, : 1950, , 09:32 04/04/25 IV NS 0.9 % 1000 mL 500 mL/hr 09:35 04/04/25 Heparin IVP 4000 unit IV SITE INFORMATION 09:28 04/04/25 Site #1 left AC, 18g. Saline lock. 09:30 04/04/25 Site #1 left AC, 18g. Saline lock. INTAKE OUTPUT REASSESMENT (most recent) 09:35 04/04/25. To room via stretcher. ( Pt was finishing her dialysis treatment and had sudden onset CP.). GENERAL / NEURO / PSYCH: Alert. Oriented X 4. Appears in pain, anxious and in distress. RESPIRATORY: Mild respiratory distress. ( Pt placed on 2LO2). CVS: Cardiac rhythm: (ACUTE NV/STEMI). VITAL SIGNS First Vitals Last Vitals Temp 09:35 04/04/25 98.0 F Temp 09:37 04/04/25 BP 09:35 04/04/25 107/45 BP 09:37 04/04/25 107/45 HR 09:35 04/04/25 71 HR 09:37 04/04/25 70 RR 09:35 04/04/25 16 RR 09:37 04/04/25 O2 Sat 09:35 04/04/25 100% O2 Sat 09:37 04/04/25 Pain 09:35 04/04/25 6 Pain 09:37 04/04/25 ETCO2 09:35 04/04/25 ETCO2 09:37 04/04/25 GCS 09:35 04/04/25 GCS 09:37 04/04/25 RTS 09:35 04/04/25 RTS 09:37 04/04/25 PROCEDURES NURSING INTERVENTIONS LABS / STUDIES LABS / STUDIES ORDERED CBC w Diff CMP EKG - ED PT with INR 3 of 4 Visit Jin - MARCOS SHELTON, : 1950, , PTT Troponin-I CLINICAL IMPRESSION ACUTE ANTERIOR MYOCARDIAL INFARCTION WITH ST ELEVATION AND ELEVATED MARKERS (STEMI) 4 of 4 Normal [facility] ED VITALS FLOW SHEETon 04-05 ED VITALS FLOW SHEET Vitals - MARCOS SHELTON, : 1950, , Vital Sign Flow Sheet [address] [address] [id number] 04/04/2025 Patient: MARCOS SHELTON Sex: Female : 1950 Age: 74y Measurements Wt: 81.6 kg, Ht/Gustavo: 63.0 in, BMI: 31.89 Measured Time BP MAP HR RR O2Sat ETCO2 Temp Pain GCS RTS 09:37 04/04/2025 107/45 53 70 09:35 04/04/2025 107/45 66 71 16 100% 98.0 F 6 1 of 1 Normal [facility] LABORATORYOrdered By: So raman on 04-05-2025 Cholesterol [Mass/Vol] 122 mg/dL Normal 50 - 199 mg/dL AH ADM SS Comment on above: Interpretive Data: C holesterol Reference Interval: Less than 200 Desirable 200-239 Borderline high risk 240 and above High risk Cholesterol in HDL [Mass/Vol] 47 mg/dL Normal 40 - 59 mg/dL ADM SS Cholesterol in LDL [Mass/Vol] 44 mg/dL Normal 0 - 129 mg/dL ADM SS Triglyceride [Mass/Vol] 154 mg/dL High 3 - 149 mg/dL ADM SS LIPIDon 04-05-2025 Cholesterol [Mass/Vol] 122 mg/dL Normal 50-199 [facility] Comment on above: Result Comment: Chol esterol Reference Interval: Less than 200 Desirable 200-239 Borderline high risk 240 and above High risk Performed By: #### G FR, CBC, ADIFF, CMP, ANEU #### [address] [address] Cholesterol in HDL [Mass/Vol] 47 mg/dL Normal 40-59 [facility] Comment on above: Performed By: #### G FR, CBC, ADIFF, CMP, ANEU #### [address] [address] Cholesterol in LDL [Mass/Vol] 44 mg/dL Normal 0-129 [facility] Comment on above: Performed By: #### G FR, CBC, ADIFF, CMP, ANEU #### [address] [address] Triglyceride [Mass/Vol] 154 mg/dL High 3-149 [facility] Comment on above: Performed By: #### G FR, CBC, ADIFF, CMP, ANEU #### [address] [address] MGon 04-05-2025 Magnesium [Mass/Vol] 1.9 mg/dL Normal 1.6-2.4 [facility] Comment on above: Performed By: #### G FR, CBC, ADIFF, CMP, ANEU #### [place] [address] .Auto Diffon 04-04-2025 Basophil, Absolute 0.1 10 3/mcL Normal 0.0-0.3 [facility] Comment on above: Performed By: #### G FR, CBC, ADIFF, CMP, ANEU #### [address] [address] Basophils/100 WBC (Bld) 0.8 % Normal 0.0-2.5 [facility] Comment on above: Performed By: #### G FR, CBC, ADIFF, CMP, ANEU #### [place] [address] Eosinophil, Absolute 0.1 10 3/mcL Normal 0.0-0.7 [facility] Comment on above: Performed By: #### G FR, CBC, ADIFF, CMP, ANEU #### [place] [address] Eosinophils/100 WBC (Bld) 1.9 % Normal 0.0-6.0 [facility] Comment on above: Performed By: #### G FR, CBC, ADIFF, CMP, ANEU #### [address] [address] Lymphocyte, Absolute 1.4 10 3/mcL Normal 0.9-4.3 [facility] Comment on above: Performed By: #### G FR, CBC, ADIFF, CMP, ANEU #### [facility] [address] [place], [place] [address] Lymphocytes/100 WBC (Bld) 18.5 % Low 20.0-40.0 [facility] Comment on above: Performed By: #### G FR, CBC, ADIFF, CMP, ANEU #### [address] [address] Monocyte, Absolute 0.8 10 3/mcL Normal 0.1-1.4 [facility] Comment on above: Performed By: #### G FR, CBC, ADIFF, CMP, ANEU #### [address] [address] Monocytes/100 WBC (Bld) 10.1 % Normal 2.0-13.0 [facility] Comment on above: Performed By: #### G FR, CBC, ADIFF, CMP, ANEU #### [address] [address] Neutrophils/100 WBC (Bld) 68.7 % Normal 50.0-75.0 [facility] Comment on above: Performed By: #### G FR, CBC, ADIFF, CMP, ANEU #### [address] [address] .NEUABSon 04-04-2025 Neutrophil, Absolute 5.4 10 3/mcL Normal 2.3-8.1 [facility] Comment on above: Performed By: #### G FR, CBC, ADIFF, CMP, ANEU #### [address] [address] APTTon 04-04-2025 aPTT Coag (Bld) [Time] 43.6 s High 25.4 - 38.4 [facility] Comment on above: Performed By: #### 2 92573 #### [facility],[address] [place] [address] CAIONon 04-04-2025 Calcium Ionized 1.09 mmol/L Low 1.12-1.32 [facility] Comment on above: Performed By: #### G FR, CBC, ADIFF, CMP, ANEU #### [place] [address] CBCon 04-04-2025 Erythrocyte distribution width (RBC) [Ratio] 17.0 % High 11.5-15.5 [facility] Comment on above: Performed By: #### G FR, CBC, ADIFF, CMP, ANEU #### [place] [address] Hematocrit (Bld) [Volume fraction] 32.5 % Low 34.0-46.0 [facility] Comment on above: Performed By: #### G FR, CBC, ADIFF, CMP, ANEU #### [place] [address] Hgb 10.7 G/dL Low 12.0-16.0 [facility] Comment on above: Performed By: #### G FR, CBC, ADIFF, CMP, ANEU #### [place] [id number] MCH (RBC) [Entitic mass] 33.1 pg High 27.0-33.0 [facility] Comment on above: Performed By: #### G FR, CBC, ADIFF, CMP, ANEU #### [place] [address] MCHC 32.9 G/dL Normal 32.0-36.0 [facility] Comment on above: Performed By: #### G FR, CBC, ADIFF, CMP, ANEU #### [place] [id number] MCV (RBC) [Entitic vol] 100.4 fL High 80.0-99.0 [facility] Comment on above: Performed By: #### G FR, CBC, ADIFF, CMP, ANEU #### [place] [id number] Platelet 163 10 3/mcL Normal 150-450 [facility] Comment on above: Performed By: #### G FR, CBC, ADIFF, CMP, ANEU #### [place] [id number] Platelet mean volume (Bld) [Entitic vol] 7.9 fL Normal 6.6-10.5 [facility] Comment on above: Performed By: #### G FR, CBC, ADIFF, CMP, ANEU #### [place] [id number] [place] [address] RBC 3.23 10 6/mcL Low 4.10-5.30 [facility] Comment on above: Performed By: #### G FR, CBC, ADIFF, CMP, ANEU #### [facility] [address] [place] [address] WBC 7.8 10 3/mcL Normal 4.5-10.8 [facility] Comment on above: Performed By: #### G FR, CBC, ADIFF, CMP, ANEU #### [facility] [address] [place] [address] CBC + DIFFon 04-04-2025 Baso # 0.04 x10EE3/UL Normal 0.00 - 0.10 [facility] Comment on above: Performed By: #### 2 00140 ####[facility],[address] [place] [address] Basophils/100 WBC (Bld) 0.4 % Normal 0.0 - 2.0 [facility] Comment on above: Performed By: #### 2 12352 ####[facility],[address] [place] [address] CBC + DIFF Normal [facility] Comment on above: Result Comment: CBC- COMPLETE BLOOD COUNT Performed By: #### 2 24791 ####[facility],[address] [place] [address] EO # 0.26 x10EE3/UL Normal 0.00 - 0.50 [facility] Comment on above: Performed By: #### 2 04187 ####[facility],[address] [place] [address] Eosinophils/100 WBC (Bld) 2.5 % Normal 0.0 - 7.0 [facility] Comment on above: Performed By: #### 2 29651 ####[facility],[address] [place] [address] Erythrocyte distribution width (RBC) [Ratio] 14.5 % Normal 12.0 - 15.6 [facility] Comment on above: Performed By: #### 2 30012 ####[facility],[address] [place] [address] Hematocrit (Bld) [Volume fraction] 33.0 % Low 34.0 - 46.0 [facility] Comment on above: Performed By: #### 2 61739 ####[facility],[address] [place] [address] Hemoglobin (Bld) [Mass/Vol] 11.0 g/dL Low 12.0 - 16.0 [facility] Comment on above: Performed By: #### 2 71178 ####[facility],[address] [place] [address] Lymph # 2.70 x10EE3/UL Normal 0.80 - 2.80 [facility] Comment on above: Performed By: #### 2 73844 ####[facility],[address] [place] [address] Lymphocytes/100 WBC (Bld) 26.2 % Normal 20.0 - 45.0 [facility] Comment on above: Performed By: #### 2 37958 ####[facility],[address] [place], [place] [id number] MANUAL DIFF N/A Normal [facility] Comment on above: Performed By: #### 2 59313 ####[facility],[address] [place], [place] [id number] MCH (RBC) [Entitic mass] 34 pg High 27 - 33 [facility] Comment on above: Performed By: #### 2 35549 ####[facility],[address] [place] [address] MCHC 33 X10 3 Normal 32 - 36 [facility] Comment on above: Performed By: #### 2 15827 ####[facility],[address] [place] [address] MCV (RBC) [Entitic vol] 101 fL High 80 - 99 [facility] Comment on above: Performed By: #### 2 39860 ####[facility],[address] [place] [address] Nome # 0.96 x10EE3/UL Normal 0.20 - 1.00 [facility] Comment on above: Performed By: #### 2 31706 ####[facility],[address] [place] [address] MONOS % 9.3 % Normal 0.0 - 10.0 [facility] Comment on above: Performed By: #### 2 90585 ####[facility],[address] [place] [address] Morphology Matt (Bld) [Interp] N/A Normal [facility] Comment on above: Performed By: #### 2 05336 ####[facility],[address] [place] [address] Neut # 6.37 x10EE3/UL Normal 1.50 - 7.10 [facility] Comment on above: Performed By: #### 2 48969 ####[facility],[address] [place] [address] Neutrophils/100 WBC (Bld) 61.7 % Normal 46.0 - 76.0 [facility] Comment on above: Performed By: #### 2 23531 ####[facility],[address] [place] [address] PLATELET 236 x10EE3/UL Normal 150 - 450 [facility] Comment on above: Performed By: #### 2 95845 ####[facility],[address] [place] [address] Platelet mean volume (Bld) [Entitic vol] 7.9 fL Normal 6.6 - 10.5 [facility] Comment on above: Result Comment: AUTO MATED DIFFERENTIAL Performed By: #### 2 54742 ####[facility],[address] [place] [address] RBC 3.27 x 10EE6/UL Low 4.10 - 5.30 [facility] Comment on above: Performed By: #### 2 68040 ####[facility],[address] [place] [address] WBC 10.3 x 10EE3/UL Normal 4.5 - 10.8 [facility] Comment on above: Performed By: #### 2 80348 ####[facility],[address] [place] [address] CMP with eGFRon 04-04-2025 AGE 74 years Normal [facility] Comment on above: Performed By: #### 2 05724 #### [facility],[address] [place] [address] Albumin [Mass/Vol] 3.1 g/dL Low 3.4 - 5.0 [facility] Comment on above: Performed By: #### 2 18714 #### [facility],[address] [place], [place] [address] Albumin/Globulin [Mass ratio] 0.7 {ratio} Low 0.9 - 1.6 [facility] Comment on above: Performed By: #### 2 25026 #### [facility],[address] [place] [address] ALK PHOS 72 U/L Normal 46 - 116 [facility] Comment on above: Performed By: #### 2 04327 #### [facility],[address] [place] [address] ALT [Catalytic activity/Vol] 20 U/L Normal 16 - 63 [facility] Comment on above: Performed By: #### 2 64991 #### [facility],[address] [place] [address] Anion gap [Moles/Vol] 10 mmol/L Normal 10 - 20 [facility] Comment on above: Performed By: #### 2 18046 #### [facility],[address] [place] [address] AST [Catalytic activity/Vol] 26 U/L Normal 13 - 39 [facility] Comment on above: Performed By: #### 2 06438 #### [facility],[address] [place], [place] [id number] B/C RATIO 7 ratio Normal 0 - 30 [facility] Comment on above: Performed By: #### 2 91352 #### [facility],[address] [place] [address] Bilirubin [Mass/Vol] 0.5 mg/dL Normal 0.2 - 1.0 [facility] Comment on above: Performed By: #### 2 78433 #### [facility],[address] [place], [place] [address] Calcium [Mass/Vol] 9.3 mg/dL Normal 8.5 - 10.1 [facility] Comment on above: Performed By: #### 2 91423 #### [facility],[address] [place], [place] [address] Chloride [Moles/Vol] 97 mmol/L Low 98 - 107 [facility] Comment on above: Performed By: #### 2 91155 #### [facility],[address] [place] [address] CMP with eGFR Normal [facility] Comment on above: Result Comment: COMP REHENSIVE METABOLIC PANEL Performed By: #### 2 81227 #### [facility],[address] [place] [address] CO2 [Moles/Vol] 34.1 mmol/L High 21.0 - 32.0 [facility] Comment on above: Performed By: #### 2 95377 #### [facility],[address] [place] [address] Creatinine [Mass/Vol] 2.36 mg/dL High 0.55 - 1.02 [facility] Comment on above: Performed By: #### 2 77744 #### [facility],[address] [place] [address] eGFR 20 ML/MINUTE Low 60 - 999 [facility] Comment on above: Performed By: #### 2 82289 #### [facility],[address] [place] [address] eGFR(AA) 25 ML/MINUTE Low 60 - 999 [facility] Comment on above: Result Comment: ACCO RDING TO THE NATIONAL KIDNEY DISEASE EDUCATION PROGRAM(NKDE), A NORMAL eGFR IS A VALUE GREATER THAN OR EQUAL TO 60 ML/MIN/1.73 SQ METERS. CHRONIC KIDNEY DISEASE: <60mL/MIN/1.73 SQ METERS KIDNEY FAILURE: <15mL/MIN/1.73 SQ METERS THIS TEST SHOULD ONLY BE USED FOR PATIENTS 18 YEARS OF AGE AND OLDER. Performed By: #### 2 44580 #### [facility],[address] [place] [address] Globulin (S) [Mass/Vol] 4.4 g/dL High 1.5 - 3.8 [facility] Comment on above: Performed By: #### 2 81465 #### [facility],[address] [place] [address] Glucose [Mass/Vol] 119 mg/dL High 74 - 106 [facility] Comment on above: Performed By: #### 2 10886 #### [facility],[address] [place] [address] Potassium [Moles/Vol] 4.0 mmol/L Normal 3.5 - 5.1 [facility] Comment on above: Performed By: #### 2 01516 #### [facility],[address] [place] [address] Protein [Mass/Vol] 7.5 g/dL Normal 6.4 - 8.2 [facility] Comment on above: Performed By: #### 2 12140 #### [facility],[address] [place] [address] Sodium [Moles/Vol] 137 mmol/L Normal 136 - 145 [facility] Comment on above: Performed By: #### 2 30648 #### [facility],[address] [place] [address] Urea nitrogen [Mass/Vol] 16 mg/dL Normal 7 - 18 [facility] Comment on above: Performed By: #### 2 30568 #### [facility],[address] [place] [address] LABORATORYOrdered By: SYSTEM SYSTEM on 04-04-2025 Troponin I.cardiac DL <= 0.01 ng/mL [Mass/Vol] ng/L High 0 - 34 ng/L ADM Comment on above: Interpretive Data: High Sensitive Troponin I Reference Ranges: Female: 0-34 ng/L Male: 0-54 ng/L Testing performed on [employer] IM analyzer using direct chemiluminescent technology. TSH Qn 2.424 mIU/mL Normal 0.550 - 4.780 mIU/mL ADM SS LABORATORYOrdered By: Sangeeta Ordaz on 04-04-2025 Calcium Ionized 1.09 mmol/L Low 1.12 - 1.32 mmol/L Main Rapid Comm SS PROTHROMBIN TIME AND INRon 0 04-04-2025 INR Coag (PPP) [Relative time] 1.1 {INR} Normal 0.8 - 1.2 [facility] Comment on above: Result Comment: T HE HEMOSIL THROMBOPLASTIN REAGENT USED IN THE PROTHROMBIN TIME TEST INTERACTS WITH THE DRUG CUBICIN (DAPTOMYCIN) AND WILL RESULT IN FALSELY ELEVATED PT / INR RESULTS INR INTERPRETATION INR INDICATION PREVENTION AND TREATMENT OF THROMBOEMBOLISM ASSOCIATED WITH: 2.0 - 3.0 ATRIAL FIBRILLATION, BIOPROSTHETIC HEART VALVES, PULMONARY EMBOLISM, VENOUS THROMBOSIS, SYSTEMIC EMBOLISM POST MYOCARDIAL INFARCTION 2.5 - 3.5 MECHANICAL HEART VALVES Performed By: #### 2 57088 ####[facility],[address] [place], [place] [address] PROTHROMBIN TIME AND INR Normal [facility] Comment on above: Result Comment: PROT HROMBIN TIME AND INR Performed By: #### 2 37987 ####[facility],[address] [place], [place] [id number] PT-COUMADIN 11.8 sec Normal 9.3 - 14.1 [facility] Comment on above: Performed By: #### 2 73327 ####[facility],[address] [place] [address] TROPHSon 04-04-2025 High Sensitivity Troponin I >67727 High 0-34 [facility] Comment on above: Result Comment: High Sensitive Troponin I Reference Ranges: Female: 0-34 ng/L Male: 0-54 ng/L Testing performed on [employer] analyzer using direct chemiluminescent technology. Performed By: #### G FR, CBC, ADIFF, CMP, ANEU #### [facility] [address] [place] [address] TROPONINon 04-04-2025 HS TROPONIN 102.8 pg/mL Critically high 0.0 - 51.4 [facility] Comment on above: Result Comment: { CA LLED TO REN KEANE BY CB AT 1014 { READ BACK BY REN KEANE RA AT 1014 Performed By: #### 2 39819 #### [facility],[address] [place] [address] TSHon 04-04-2025 TSH 2.424 mIU/mL Normal 0.550-4.780 [facility] Comment on above: Performed By: #### G FR, CBC, ADIFF, CMP, ANEU #### [place] [address] MRI BRAIN W/O CONTRASTon MRI BRAIN W/O CONTRAST ORIGINAL EXAMINATION: MRI OF THE BRAIN WITHOUT CONTRAST 03/07/2025 11:46 am TECHNIQUE: Multiplanar multisequence MRI of the brain was performed without the administration of intravenous contrast. COMPARISON: MRI brain 01/11/2020. HISTORY: ORDERING SYSTEM PROVIDED HISTORY: Reason for Exam: Subacute CVA FINDINGS: INTRACRANIAL STRUCTURES/VENTRICLES: There is a 3 cm area of mildly restricted diffusion in the right frontal lobe. There is a 5 mm oval area of restricted diffusion in the inferior left cerebellum. There is no evidence of hemorrhage. The ventricles and sulci are of normal size configuration. Scattered small foci increased FLAIR signal are present in the periventricular white matter bilaterally. Prominent perivascular spaces are noted in the basal ganglia. Partially empty sella turcica. ORBITS: The visualized portion of the orbits demonstrate no acute abnormality. SINUSES: The visualized paranasal sinuses and mastoid air cells demonstrate no acute abnormality. BONES/SOFT TISSUES: The bone marrow signal intensity appears normal. The soft tissues demonstrate no acute abnormality. IMPRESSION: Findings consistent with subacute infarct in the right frontal lobe and punctate infarct in the inferior left cerebellum. Recommend continued follow-up to exclude active lesions. Interpreted by: Mg Hart Preliminary Report By: Mg Hart Electronically signed By Mg Hart Dictated Date: 03/07/2025 11:58:40 AM Prelim Date: 03/07/2025 12:03:35 PM Sign Date: 03/07/2025 12:03:35 PM Ordering Provider: BELL Brito [facility] Basic metabolic 2000 panelon 02-21-2025 Anion gap [Moles/Vol] 11 mmol/L Normal 5-16 [facility] Comment on above: Order Comment: Chris redding Type: BLOOD SPECIMEN Ordering Facility: [facility] Address: [address] [place] [address] Performed By: #### 2 432-, #### [facility] CLIA [id number] [address] [place], [place] [id number] [place] Calcium [Mass/Vol] 9.1 mg/dL Normal 8.5-10.5 [facility] Comment on above: Order Comment: Chris redding Type: BLOOD SPECIMEN Ordering Facility: [facility] Address: [address] [place], [place] [id number] Performed By: #### 2 432-, #### [facility] CLIA [id number] [address] [place] [id number] [place] Chloride [Moles/Vol] 98 mmol/L Normal 98-107 [facility] Comment on above: Order Comment: Chris redding Type: BLOOD SPECIMEN Ordering Facility: [facility] Address: [address] [place] [address] Performed By: #### 2 4321-2, #### [facility] CLIA [id number] [address] [place] [id number] [place] CO2 [Moles/Vol] 24 mmol/L Normal 21-32 [facility] Comment on above: Order Comment: Chris redding Type: BLOOD SPECIMEN Ordering Facility: [facility] Address: [address] [place] [address] Performed By: #### 2 432-2, #### [facility] CLIA [id number] [address] [place] [address] [place] Creatinine [Mass/Vol] 5.51 mg/dL High 0.51-0.95 [facility] Comment on above: Order Comment: Chris redding Type: BLOOD SPECIMEN Ordering Facility: [facility] Address: [address] [place] [address] Result Comment: [place] ents receiving either N-Acetylcysteine (NAC) or Metamizole prior to venipuncture, may have falsely depressed results. Performed By: #### 2 432-, #### [facility] CLIA [id number] [address] [place] [address] [place] Creatinine and Glomerular filtration rate.predicted panel (S/P/Bld) 8 mL/min/1.73m??? Low >=60 [facility] Comment on above: Order Comment: Chris redding Type: BLOOD SPECIMEN Ordering Facility: [facility] Address: [address] [place] [address] Result Comment: Cindy mated Glomerular Filtration Rate (eGFR) is calculated using the 2020 CKD-EPI creatinine equation. This equation utilizes serum creatinine, sex, and age as parameters. The creatinine assay has traceable calibration to isotope dilution-mass spectrometry. Refer to KDIGO guidelines for clinical interpretation. In patients with unstable renal function, e.g. those with acute kidney injury, the eGFR may not accurately reflect actual GFR. Performed By: #### 2 4321-, #### [facility] CLIA [id number] [address] [place] [address] [place] Glucose [Mass/Vol] 85 mg/dL Normal 70-100 [facility] Comment on above: Order Comment: Chris redding Type: BLOOD SPECIMEN Ordering Facility: [facility] Address: [address] [id number] Result Comment: The [place] Diabetes Association (ADA) provides guidance for cutoff values for fasting glucose and random glucose. The ADA defines fasting as no caloric intake for at least 8 hours. Fasting plasma glucose results between 100 to 125 mg/dL indicate increased risk for diabetes (prediabetes). Fasting plasma glucose results greater than or equal to 126 mg/dL meet the criteria for diagnosis of diabetes. In the absence of unequivocal hyperglycemia, results should be confirmed by repeat testing. In a patient with classic symptoms of hyperglycemia or hyperglycemic crisis, random plasma glucose results greater than or equal to 200 mg/dL meet the criteria for diagnosis of diabetes. Reference: Standards of Medical Care in Diabetes 2016, [place] Diabetes Association. Diabetes Care. 2016.39(Suppl 1). Results may be falsely elevated after the administration of Sulfapyridine. Results may be falsely depressed after the administration of Sulfasalazine. Performed By: #### 2 4321-, #### [facility] CLIA [id number] [address] [place] [address] [place] Potassium [Moles/Vol] 3.9 mmol/L Normal 3.5-5.1 [facility] Comment on above: Order Comment: Chris redding Type: BLOOD SPECIMEN Ordering Facility: [facility] Address: [address] [place], [place] [id number] Performed By: #### 2 432-, #### [facility] CLIA [id number] [address] [place] [address] [place] Sodium [Moles/Vol] 133 mmol/L Low 136-145 [facility] Comment on above: Order Comment: Margoi miladis Type: BLOOD SPECIMEN Ordering Facility: [facility] Address: [address] [place] [address] Performed By: #### 2 4320-09, #### [facility] CLIA [id number] [address] [place] [address] [place] Urea nitrogen [Mass/Vol] 38 mg/dL High 7-26 [facility] Comment on above: Order Comment: Speci men Type: BLOOD SPECIMEN Ordering Facility: [facility] Address: [address] [place] [address] Performed By: #### 2 432-2, #### [facility] CLIA [id number] [address] [place], [place] [id number] [place] CBC W Auto Differential pane l (Bld)on 02-21-2025 Basophils (Bld) [#/Vol] 0.06 10*3/uL Normal <0.11 [facility] Comment on above: Order Comment: Speci men Type: BLOOD SPECIMEN Ordering Facility: [facility] Address: [address] [place] [address] Performed By: #### 2 432-2, #### [facility] CLIA [id number] [address] [place] [address] [place] Basophils/100 WBC (Bld) 0.9 % Normal [facility] Comment on above: Order Comment: Speci men Type: BLOOD SPECIMEN Ordering Facility: [facility] Address: [address] [place] [address] Performed By: #### 2 2, #### [facility] CLIA [id number] [address] [place] [address] [place] Differential cell count method Nom (Bld) Auto Normal [facility] Comment on above: Order Comment: Speci men Type: BLOOD SPECIMEN Ordering Facility: [facility] Address: [address] [place] [address] Performed By: #### 2 4320-2, #### [facility] CLIA [id number] [address] [place] [address] [place] Eosinophils (Bld) [#/Vol] 0.22 10*3/uL Normal <0.46 [facility] Comment on above: Order Comment: Speci men Type: BLOOD SPECIMEN Ordering Facility: [facility] Address: [address] [place] [address] Performed By: #### 2 432-2, #### [facility] CLIA [id number] [address] [place], [place] [id number] [place] Eosinophils/100 WBC (Bld) 3.1 % Normal [facility] Comment on above: Order Comment: Speci men Type: BLOOD SPECIMEN Ordering Facility: [facility] Address: [address] [place] [address] Performed By: #### 2 432-2, #### [facility] CLIA [id number] [address] [place], [place] [address] [place] Erythrocyte distribution width (RBC) [Ratio] 15.6 % High 11.5-15.0 [facility] Comment on above: Order Comment: Speci men Type: BLOOD SPECIMEN Ordering Facility: [facility] Address: [address] [place] [address] Performed By: #### 2 432-2, #### [facility] CLIA [id number] [address] [place] [address] [place] Hematocrit (Bld) [Volume fraction] 26.1 % Low 36.0-46.0 [facility] Comment on above: Order Comment: Speci men Type: BLOOD SPECIMEN Ordering Facility: [facility] Address: [address] [place] [address] Performed By: #### 2 43208-24, #### [facility] CLIA [id number] [address] [place], [place] [address] [place] Hemoglobin (Bld) [Mass/Vol] 8.6 g/dL Low 11.5-15.5 [facility] Comment on above: Order Comment: Speci men Type: BLOOD SPECIMEN Ordering Facility: [facility] Address: [address] [place] [address] Performed By: #### 2 4322, #### [facility] CLIA [id number] [address] [place], [place] [address] [place] Immature granulocytes (Bld) [#/Vol] 0.08 10*3/uL Normal <0.10 [facility] Comment on above: Order Comment: Speci men Type: BLOOD SPECIMEN Ordering Facility: [facility] Address: [address] [place] [address] Performed By: #### 2 432-2, #### [facility] CLIA [id number] [address] [place] [address] [place] Immature granulocytes/100 WBC (Bld) 1.1 % Normal [facility] Comment on above: Order Comment: Speci men Type: BLOOD SPECIMEN Ordering Facility: [facility] Address: [address] [place] [address] Performed By: #### 2 2, #### [facility] CLIA [id number] [address] [place] [address] [place] Lymphocytes (Bld) [#/Vol] 1.87 10*3/uL Normal 1.00-4.00 [facility] Comment on above: Order Comment: Speci men Type: BLOOD SPECIMEN Ordering Facility: [facility] Address: [address] [place] [address] Performed By: #### 2 4320-09, #### [facility] CLIA [id number] [address] [place] [address] [place] Lymphocytes/100 WBC (Bld) 26.8 % Normal [facility] Comment on above: Order Comment: Speci men Type: BLOOD SPECIMEN Ordering Facility: [facility] Address: [address] [place] [address] Performed By: #### 2 4322, #### [facility] CLIA [id number] [address] [place] [address] [place] MCH (RBC) [Entitic mass] 33.2 pg Normal 26.0-34.0 [facility] Comment on above: Order Comment: Speci men Type: BLOOD SPECIMEN Ordering Facility: [facility] Address: [address] [place] [address] Performed By: #### 2 432-2, #### [facility] CLIA [id number] [address] [place], [place] [address] [place] MCHC (RBC) [Mass/Vol] 33.0 g/dL Normal 30.5-36.0 [facility] Comment on above: Order Comment: Speci men Type: BLOOD SPECIMEN Ordering Facility: [facility] Address: [address] [place] [address] Performed By: #### 2 4321-2, #### [facility] CLIA [id number] [address] [place] [address] [place] MCV (RBC) [Entitic vol] 100.8 fL High 80.0-100.0 [facility] Comment on above: Order Comment: Speci men Type: BLOOD SPECIMEN Ordering Facility: [facility] Address: [address] [place] [address] Performed By: #### 2 432-2, #### [facility] CLIA [id number] [address] [place] [address] [place] Monocytes (Bld) [#/Vol] 0.78 10*3/uL Normal <0.87 [facility] Comment on above: Order Comment: Speci men Type: BLOOD SPECIMEN Ordering Facility: [facility] Address: [address] [place] [address] Performed By: #### 2 4321-2, #### [facility] CLIA [id number] [address] [place] [address] [place] Monocytes/100 WBC (Bld) 11.2 % Normal [facility] Comment on above: Order Comment: Speci men Type: BLOOD SPECIMEN Ordering Facility: [facility] Address: [address] [place] [address] Performed By: #### 2 432-2, #### [facility] CLIA [id number] [address] [place], [place] [address] [place] Neutrophils (Bld) [#/Vol] 3.98 10*3/uL Normal 1.45-7.50 [facility] Comment on above: Order Comment: Speci men Type: BLOOD SPECIMEN Ordering Facility: [facility] Address: [address] [id number] Performed By: #### 2 432-2, #### [facility] CLIA [id number] [address] [place], [place] [address] [place] Neutrophils/100 WBC (Bld) 56.9 % Normal [facility] Comment on above: Order Comment: Speci men Type: BLOOD SPECIMEN Ordering Facility: [facility] Address: [address] [place] [address] Performed By: #### 2 4320-2, #### [facility] CLIA [id number] [address] [place], [place] [address] [place] Nucleated RBC (Bld) [#/Vol] 10*3/uL Normal <0.01 [facility] Comment on above: Order Comment: Speci men Type: BLOOD SPECIMEN Ordering Facility: [facility] Address: [address] [place] [address] Performed By: #### 2 4320-09, #### [facility] CLIA [id number] [address] [place] [address] [place] Nucleated RBC/100 WBC (Bld) [Ratio] 0.0 /100 WBC Normal [facility] Comment on above: Order Comment: Speci men Type: BLOOD SPECIMEN Ordering Facility: [facility] Address: [address] [place] [address] Performed By: #### 2 2, #### [facility] CLIA [id number] [address] [place], [place] [address] [place] Platelet mean volume (Bld) [Entitic vol] 9.5 fL Normal 9.0-12.7 [facility] Comment on above: Order Comment: Speci men Type: BLOOD SPECIMEN Ordering Facility: [facility] Address: [address] [place] [address] Performed By: #### 2 432-2, #### [facility] CLIA [id number] [address] [place], [place] [address] [facility] [place] Platelets (Bld) [#/Vol] 180 10*3/uL Normal 150-400 [facility] Comment on above: Order Comment: Chris redding Type: BLOOD SPECIMEN Ordering Facility: [facility] Address: [address] [place] [address] Performed By: #### 2 4321-2, 96947-9 #### [facility] CLIA [id number] [address] [place], [place] [address] [place] RBC (Bld) [#/Vol] 2.59 10*6/uL Low 3.90-5.20 [facility] Comment on above: Order Comment: Chris redding Type: BLOOD SPECIMEN Ordering Facility: [facility] Address: [address] [place] [address] Performed By: #### 2 4321-2, 02408-0 #### [facility] CLIA [id number] [address] [place], [place] [address] [place] WBC (Bld) [#/Vol] 6.99 10*3/uL Normal 3.70-11.00 [facility] Comment on above: Order Comment: Chris redding Type: BLOOD SPECIMEN Ordering Facility: [facility] Address: [address] [place] [address] Performed By: #### 2 4321-2, 11954-5 #### [facility] CLIA [id number] [address] [place], [place] [address] [facility] [place] CNDSon 02-21-2025 CNDS HNO ID: [id number] Author: TRENA WEINSTEIN MD Service: Hospital Medicine Author Type: Physician Type: Discharge Summary Filed: 02/21/2025 16:57 Note Text: DISCHARGE SUMMARY PATIENT NAME: Marcos Shelton ADMISSION DATE: 02/17/2025 DISCHARGE DATE: 02/21/2025 ATTENDING PHYSICIAN: Trena Weinstein MD Code Status: Full Code Highest Readmission Risk Score: 11 The 30 day readmissions risk score is derived from an internally validated risk model which evaluates patient level characteristics, utilization history, medication orders and lab results up until the day of discharge. Patients with a score of 39 or above are considered highest risk for readmission. Specific patient level drivers will be listed at the bottom of the summary. CONSULTING TEAMS DURING HOSPITALIZATION: None Treatment Team: Attending Provider: Trena Weinstein MD Consulting: Darcie Mcdonald MD Attending: MR EMILI PACE FINAL DIAGNOSIS: Fall Active Hospital Problems Diagnosis POA Fall at home, initial encounter Yes Skin tear of upper arm without complication, right, initial encounter Yes Wound of left leg, initial encounter Yes Ankle wound, left, initial encounter Yes Resolved Hospital Problems No resolved problems to display. OPERATIONS DURING HOSPITALIZATION: None PROCEDURES DURING HOSPITALIZATION: No procedures performed HOSPITAL COURSE: 74-year-old female admitted to [facility] on 02/17 after having a fall. X-ray did not show any acute fractures. PT OT recommended going to SNF but patient refused and wanted to go home despite understanding the risks of falls. CT head showed subacute stroke. Home aspirin and Plavix were continued. Carotid ultrasound showed patent arteries. Echo looks normal. Today patient symptoms include and for medically stable for discharge. Patient advised to follow with PCP in 1 week Transitions of Care Critical Issues: LAB MONITORING NEEDED: CBC, BMP LABS AND PROCEDURES PENDING AT DISCHARGE: No pending results. PATIENT CONDITION AT DISCHARGE: Stable DISCHARGE DISPOSITION: Home with Home Health GENERAL: Alert, no distress, cooperative LUNGS: Lungs clear to auscultation, Good diaphragmatic excursion CARDIAC: Normal S1 and S2; no rubs, murmurs, or gallops ABDOMEN: Abdomen soft, non-tender, BS normal, No masses or organomegaly EXTREMITIES: Patient has left lower extremity wound covered in dressing NEURO: AAO x 3. Reflexes normal and symmetric. Sensation grossly intact, Cranial nerves II-XII intact DIET: Resume your pre-hospital diet ACTIVITY: Resume pre-hospital activity ALLERGIES Allergen Reactions Colesevelam Unknown Nitrofurantoin Unknown Penicillins Other: See Comments, Unknown Hydrocortisone Unknown Macrobid [Nitrofura* Metolazone Unknown Pravastatin Unknown Sulfa (Sulfonamide * Unknown Tramadol GI Upset DISCHARGE MEDICATION: Medication List CONTINUE taking these medications albuterol 2.5 mg /3 mL (0.083 %) nebulizer solution Commonly known as: PROVENTIL albuterol 90 mcg/actuation Aero Commonly known as: PROVENTIL aspirin, enteric coated 81 mg EC tablet Commonly known as: ASPIRIN, ENTERIC COATED HYDROcodone-acetaminophen 5-325 mg per tablet Commonly known as: NORCO hydrOXYzine HCl 25 mg tablet Commonly known as: ATARAX KEPPRA 500 mg tablet Generic drug: levETIRAcetam Lactobacillus acidophilus 1 billion cell Cap LASIX 40 mg tablet Generic drug: furosemide LINZESS 290 mcg capsule Generic drug: linaCLOtide meclizine 25 mg Tab Commonly known as: ANTIVERT metoprolol tartrate (short acting) 25 mg tablet Commonly known as: LOPRESSOR NEPHRO-JOSE PO nitroglycerin sublingual 0.4 mg SL tablet Commonly known as: NITROQUICK omeprazole 40 mg capsule Commonly known as: PriLOSEC PLAVIX 75 mg tablet Generic drug: clopidogrel potassium chloride ER 20 mEq tablet Commonly known as: KLOR-CON ranolazine ER 500 mg 12 hr tablet Commonly known as: RANEXA REPATHA SURECLICK 140 mg/mL pen injector Generic drug: evolocumab rosuvastatin 40 mg tablet Commonly known as: CRESTOR Take 1 tablet by mouth once daily. SINGULAIR 10 mg tablet Generic drug: montelukast * levothyroxine 50 mcg Cap temazepam 30 mg Cap Commonly known as: RESTORIL tiZANidine 4 mg tablet Commonly known as: ZANAFLEX VITAMIN B-12 INJECTION Vitamin D-3 5,000 unit Tab Generic drug: cholecalciferol ZyrTEC 10 mg tablet Generic drug: cetirizine * This list has 1 medication(s) that are the same as other medications prescribed for you. Read the directions carefully, and ask your doctor or other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 equal to 10 mIU/mL (Traceable to WHO International Reference Preparation) No Protective Immunity: less than 10 mIU/mL Note: The magnitude of the measured result above the cutoff is not indicative of the total amount of antibody present. Performed By: #### 2 157-6 #### [facility] CLIA [id number] [address] [place] [address] [place] HBV surface Ab Ser Qlon 01-23 HBV surface Ab Ql (S) Negative Normal [facility] Comment on above: Order Comment: Chris redding Type: BLOOD SPECIMEN [facility] Address: [address] [place] [address] Result Comment: No s erological evidence of immunity to Hepatitis B Virus. Performed By: #### 2 157-6 #### [facility] CLIA [id number] [address] [place] [address] [place] HBV surface Ag Ser Qlon 01-23 HBV surface Ag Ql (S) Non-Reactive Normal Equivo alphonse, Nonreactive [facility] Comment on above: Order Comment: Chris redding Type: BLOOD SPECIMEN [facility] Address: [address] [place] [address] Result Comment: Resu lts were obtained with the [employer] IM IgM assay. Values obtained with different manufactures' assay methods may not be used interchangeably. Performed By: #### 2 157-6 #### [facility] CLIA [id number] [address] [place] [address] [place] NURSING PROGon 02-19-2025 NURSING PROG HNO ID: [id number] Author: JUDD ROSS, REN Service: Dialysis Author Type: Registered Nurse Type: Nursing Progress Note Filed: 02/19/2025 12:29 Note Text: Treatment completed blood returned. Patient tolerated well. 2.5 liters removed net fluid. Report given to floor nurse AVF stable positive bruit and thrill noted. Goal decreased on treatment due to soft BP no fluid bolus needed during treatment goal decreased able to maintain BP stable upon completion of dialysis treatment. [facility] THERAPY NTon 02-19-2025 THERAPY NT HNO ID: [id number] Author: MAIDA CASTANEDA OTR/Chika Service: ? Author Type: Occupational Therapist Type: Therapy (PT/OT/Speech/Resp) Filed: 02/19/2025 11:19 Note Text: OCCUPATIONAL THERAPY MISSED VISIT SERVICE DATE: 02/19/2025 SERVICE TIME: 1118 ROOM: [place] [address] (MR DIALYSIS) Patient not seen due to Test / Procedure (Dialysis). SIGNATURE: YOUSIF Crook PATIENT NAME: Marcos Shelton DATE: February 19, 2025 TIME: 11:[address] [facility] THERAPY NT HNO ID: [id number] Author: ELVIS MCDONNELL, PT Service: Physical Therapy Author Type: Physical Therapist Type: Therapy (PT/OT/Speech/Resp) Filed: 02/19/2025 09:01 Note Text: Physical Therapy Evaluation Summary SERVICE DATE: 02/19/2025 SERVICE TIME: 08 to 0852 ROOM: [place] [address] PT 6 Clicks Score: 16 DISCHARGE RECOMMENDATIONS Subacute/SNF Recommended Discharge Disposition Due to: Functional deficits requiring ongoing therapy service prior to discharge home., Patient requires daily (5x/week) skilled therapy at next level of care., Balance deficits, Functional status decline Anticipated Discharge Needs: Supervision at Home, Physical Assist at Home Physical Assist at Home for: Transfers, Ambulation, Safety, Stairs, Self Care Supervision at Home due to: Decreased safety awareness Recommended Discharge Equipment: To Be Determined ASSESSMENT Response to Therapy Interventions: Good Participation in Activities Pateint tolerated session at fair level. She demonstrated impaired strength, balance, and activity tolerance. She would benefit from SNF placement at this time for improving functional independence. Range of Motion: WFL Strength: Lower Extremity Comments Right Lower Extremity Strength Comments: grossly 3+/5 Left Lower Extremity Strength Comments: grossly 3+/5 Exercise Ankle Pumps (number of reps): 10 LAQ (number of reps): 10 Exercise: Marching x10 reps. verbal cues for proper technique. PRECAUTIONS Bed/Chair Alarm, Fall Risk CURRENT HOSPITAL COURSE Admitted for treatment and evaluation of confusion at home with fall. Relevant Past Medical History: 8 month lumbar draining wound, HTN, RA, COPD, CAD, PVD HOME LIVING Patient Lives With: Spouse, Family, Other: See Comment Comments: fabiola Assistance Available: 24-Hour Entry To Home: Stairs, Without Rail Number Of Stairs Into Home: 2 Number Of Stairs To Bed/Bath: stays on 1st floor Tub/Shower Type: tub/shower with grab bar and shower chair Equipment Owned: Rollator, Scooter- Power, Grab Bars- Shower, Shower Chair PRIOR FUNCTIONAL LEVEL Within Functional Limits Patient reports independence with ADL's and use of rollator for mobility in the home and power scooter in the community. SUBJECTIVE Patient is agreeable to therapy today. THERAPY DIAGNOSIS Muscle Weakness (generalized) TREATMENT INTERVENTIONS Evaluation, Therapeutic Exercise (62288) Timed Code Treatment (minutes): 8 Skilled Treatment Time (minutes): 23 TRAINING AND EDUCATION PROVIDED Assistive Device Use, Bed Mobility, Benefits of In-Hospital Mobility, Discharge Planning, Disease Specific Education, Gait Pattern, Reduction of Deviations, Role of Physical Therapy THERAPEUTIC SKILLS USED Cues for Sequencing/Proper Technique for Activity, Cuing Tactile, Cuing Verbal, Physical Assist FUNCTIONAL STATUS Bed Mobility Supine To Sit: Minimal Assistance Transfers Sit To Stand: Minimal Assistance, Additional Information Assisted for anterior weight shift and balance. Multiple STS completed this date. Stand To Sit: Minimal Assistance Bed to Chair Gait Moderate Assistance, Additional Information Multiple losses of balance throughout gait. Assisted for balance. Gait Device: Wheeled Walker General Deviations/Observations: Difficulty changing direction/turning, Flexed trunk posture, Non-functional gait speed, Shuffling Gait, Loss of Balance, Lateral sway increased Gait Distance (feet): 2x15ft Stairs GOALS Patient will demonstrate understanding of importance of mobility during hospital stay and resolve all functional needs identified. Transfer Supine to/from Sit with: Supervision Transfer Sit to/from Stand with: Supervision Ambulate with: Supervision Distance: 80ft Device: Wheeled Walker Ambulate Up and Down Steps with: Supervision Number of Steps: 2 Device: Cane Rehab Potential: Good Good Rehab Potential Due To: Current objective clinical presentation, Good support system/ coping skills, Good motivation ACUTE CARE TREATMENT PLAN PT Frequency: 3 Times Per Week Treatment Interventions: Education, Self Care / Home Management, Energy Conservation Training, Strengthening, Functional Mobility Training, Balance Training, Neuromuscular Re-education Plan for Next Visit: Bed Mobility, Chair Transfer Training, Gait Training, Sit to Stand Transfers, Sitting Balance, Standing Balance, Standing Tolerance, Walker Training SIGNATURE: Elvis Mcdonnell PT PATIENT NAME: Marcos Shelton DATE: February 19, 2025 TIME: 9:01 AM Normal [facility] Basic metabolic 2000 panelon 02-18-2025 Anion gap [Moles/Vol] 13 mmol/L Normal 5-16 [facility] Comment on above: Order Comment: Speci men Type: BLOOD SPECIMEN Ordering Facility: [facility] Address: [address] [place], [place] [address] Performed By: #### 2 4321-2, #### [facility] CLIA [id number] [address] [place] [address] [place] Calcium [Mass/Vol] 9.5 mg/dL Normal 8.5-10.5 [facility] Comment on above: Order Comment: Speci men Type: BLOOD SPECIMEN Ordering Facility: [facility] Address: [address] [place], [place] [id number] Performed By: #### 2 4320-2, #### [facility] CLIA [id number] [address] [place] [address] [place] Chloride [Moles/Vol] 96 mmol/L Low 98-107 [facility] Comment on above: Order Comment: Speci men Type: BLOOD SPECIMEN Ordering Facility: [facility] Address: [address] [place] [address] Performed By: #### 2 4320-2, #### [facility] CLIA [id number] [address] [place], [place] [address] [place] CO2 [Moles/Vol] 24 mmol/L Normal 21-32 [facility] Comment on above: Order Comment: Speci men Type: BLOOD SPECIMEN Ordering Facility: [facility] Address: [address] [place] [address] Performed By: #### 2 4321-2, #### [facility] CLIA [id number] [address] [place] [address] [place] Creatinine [Mass/Vol] 5.35 mg/dL High 0.51-0.95 [facility] Comment on above: Order Comment: Chris redding Type: BLOOD SPECIMEN Ordering Facility: [facility] Address: [address] [place] [address] Result Comment: [place] ents receiving either N-Acetylcysteine (NAC) or Metamizole prior to venipuncture, may have falsely depressed results. Performed By: #### 2 4321-2, #### [facility] CLIA [id number] [address] [place] [address] [place] Creatinine and Glomerular filtration rate.predicted panel (S/P/Bld) 8 mL/min/1.73m??? Low >=60 [facility] Comment on above: Order Comment: Chris redding Type: BLOOD SPECIMEN Ordering Facility: [facility] Address: [address] [place] [address] Result Comment: Cindy mated Glomerular Filtration Rate (eGFR) is calculated using the 2020 CKD-EPI creatinine equation. This equation utilizes serum creatinine, sex, and age as parameters. The creatinine assay has traceable calibration to isotope dilution-mass spectrometry. Refer to KDIGO guidelines for clinical interpretation. In patients with unstable renal function, e.g. those with acute kidney injury, the eGFR may not accurately reflect actual GFR. Performed By: #### 2 4321-2, #### [facility] CLIA [id number] [address] [place], [place] [address] [place] Glucose [Mass/Vol] 91 mg/dL Normal 70-100 [facility] Comment on above: Order Comment: Chris redding Type: BLOOD SPECIMEN Ordering Facility: [facility] Address: [address] [place] [address] Result Comment: The [place] Diabetes Association (ADA) provides guidance for cutoff values for fasting glucose and random glucose. The ADA defines fasting as no caloric intake for at least 8 hours. Fasting plasma glucose results between 100 to 125 mg/dL indicate increased risk for diabetes (prediabetes). Fasting plasma glucose results greater than or equal to 126 mg/dL meet the criteria for diagnosis of diabetes. In the absence of unequivocal hyperglycemia, results should be confirmed by repeat testing. In a patient with classic symptoms of hyperglycemia or hyperglycemic crisis, random plasma glucose results greater than or equal to 200 mg/dL meet the criteria for diagnosis of diabetes. Reference: Standards of Medical Care in Diabetes 2016, [place] Diabetes Association. Diabetes Care. 2016.39(Suppl 1). Results may be falsely elevated after the administration of Sulfapyridine. Results may be falsely depressed after the administration of Sulfasalazine. Performed By: #### 2 4320-, #### [facility] CLIA [id number] [address] [place] [address] [place] Potassium [Moles/Vol] 5.1 mmol/L Normal 3.5-5.1 [facility] Comment on above: Order Comment: Chris redding Type: BLOOD SPECIMEN Ordering Facility: [facility] Address: [address] [place] [address] Performed By: #### 2 4320-09, #### [facility] CLIA [id number] [address] [place] [address] [place] Sodium [Moles/Vol] 133 mmol/L Low 136-145 [facility] Comment on above: Order Comment: Chris redding Type: BLOOD SPECIMEN Ordering Facility: [facility] Address: [address] [place] [address] Performed By: #### 2 4320-09, #### [facility] CLIA [id number] [address] [place] [address] [place] Urea nitrogen [Mass/Vol] 33 mg/dL High 7-26 [facility] Comment on above: Order Comment: Chris redding Type: BLOOD SPECIMEN Ordering Facility: [facility] Address: [address] [place] [address] Performed By: #### 2 4320-09, #### [facility] CLIA [id number] [address] [place], [place] [id number] [place] CBC panel Auto (Bld)on 02-18 Erythrocyte distribution width (RBC) [Ratio] 16.2 % High 11.5-15.0 [facility] Comment on above: Order Comment: Speci men Type: BLOOD SPECIMEN Ordering Facility: [facility] Address: [address] [place] [address] Performed By: #### 5 8410-2 #### [facility] CLIA [id number] [address] [place] [address] [place] Hematocrit (Bld) [Volume fraction] 27.4 % Low 36.0-46.0 [facility] Comment on above: Order Comment: Speci men Type: BLOOD SPECIMEN Ordering Facility: [facility] Address: [address] [place] [address] Performed By: #### 5 8410-2 #### [facility] CLIA [id number] [address] [place] [address] [place] Hemoglobin (Bld) [Mass/Vol] 8.7 g/dL Low 11.5-15.5 [facility] Comment on above: Order Comment: Speci men Type: BLOOD SPECIMEN Ordering Facility: [facility] Address: [address] [place] [address] Performed By: #### 5 8410-2 #### [facility] CLIA [id number] [address] [place] [address] [place] MCH (RBC) [Entitic mass] 33.3 pg Normal 26.0-34.0 [facility] Comment on above: Order Comment: Speci men Type: BLOOD SPECIMEN Ordering Facility: [facility] Address: [address] [place] [address] Performed By: #### 5 8410-2 #### [facility] CLIA [id number] [address] [place] [address] [place] MCHC (RBC) [Mass/Vol] 31.8 g/dL Normal 30.5-36.0 [facility] Comment on above: Order Comment: Speci men Type: BLOOD SPECIMEN Ordering Facility: [facility] Address: [address] [place] [address] Performed By: #### 5 8410-2 #### [facility] CLIA [id number] [address] [place] [address] [place] MCV (RBC) [Entitic vol] 105.0 fL High 80.0-100.0 [facility] Comment on above: Order Comment: Speci men Type: BLOOD SPECIMEN Ordering Facility: [facility] Address: [address] [place] [address] Performed By: #### 5 8410-2 #### [facility] CLIA [id number] [address] [place] [address] [place] Nucleated RBC (Bld) [#/Vol] 10*3/uL Normal <0.01 [facility] Comment on above: Order Comment: Speci men Type: BLOOD SPECIMEN Ordering Facility: [facility] Address: [address] [place] [address] Performed By: #### 5 8410-2 #### [facility] CLIA [id number] [address] [place] [address] [place] Platelet mean volume (Bld) [Entitic vol] 9.5 fL Normal 9.0-12.7 [facility] Comment on above: Order Comment: Speci men Type: BLOOD SPECIMEN Ordering Facility: [facility] Address: [address] [place] [address] Performed By: #### 5 8410-2 #### [facility] CLIA [id number] [address] [place] [address] [place] Platelets (Bld) [#/Vol] 178 10*3/uL Normal 150-400 [facility] Comment on above: Order Comment: Speci men Type: BLOOD SPECIMEN Ordering Facility: [facility] Address: [address] [place] [address] Performed By: #### 5 8410-2 #### [facility] CLIA [id number] [address] [place] [address] [place] RBC (Bld) [#/Vol] 2.61 10*6/uL Low 3.90-5.20 [facility] Comment on above: Order Comment: Margojanice redding Type: BLOOD SPECIMEN Ordering Facility: [facility] Address: [address] [place] [address] Performed By: #### 5 8410-2 #### [facility] CLIA [id number] [address] [place], [place] [address] [facility] WBC (Bld) [#/Vol] 8.69 10*3/uL Normal 3.70-11.00 [facility] Comment on above: Order Comment: Chris miladis Type: BLOOD SPECIMEN Ordering Facility: [facility] Address: [address] [place] [address] Performed By: #### 5 8410-2 #### [facility] CLIA [id number] [address] [place], [place] [address] [facility] CONSULTon 02-18-2025 CONSULT HNO ID: [id number] Author: MELISSA UCRRIE MD Service: Nephrology Author Type: Physician Type: Consults Filed: 02/18/2025 19:02 Note Text: NEPHROLOGY SERVICE CONSULT NOTE SERVICE DATE: 02/18/2025 SERVICE TIME: 7:01 PM REASON FOR CONSULT: I am asked to see this patient in consultation for my opinion regarding ESRD. My recommendations will be communicated by way of shared medical record. REQUESTING PHYSICIAN: Primary PRIMARY CARE PHYSICIAN: Bell Maher MD Subjective CHIEF COMPLAINT: Mechanical fall HPI: I am seeing this patient for management of ESRD. She is on hemodialysis Wednesday, Wednesday and Wednesday. Has multiple other chronic illnesses including COPD, coronary artery disease status post PCI, HFpEF, peripheral vascular disease status post bilateral common iliac artery stenting in 2010, hypertension, hyperlipidemia, seizure disorder on . She is a transfer from [facility] after mechanical fall. She seems a bit confused at the time of my assessment. She did receive dialysis on Wednesday. She has chronic lymphedema of her lower extremities. Imaging studies here did not show any acute fractures or other serious issues. PT OT was ordered for placement. Of note patient has subacute stroke on Plavix and aspirin. Also takes her rosuvastatin. PAST MEDICAL HISTORY Diagnosis Date Abdominal pain, right upper quadrant Acid reflux Anemia associated with chronic renal failure 01/02/2020 Asthma Callaway's esophagus CAD (coronary artery disease) Constipation Diverticulitis Early satiety Essential hypertension, benign Fatigue Heart disease Hemorrhoids Hyperparathyroidism (HCC) Loss of weight Mitral valve disorders(424.0) with prolapse, needs abx prophylaxis Other and unspecified hyperlipidemia PVD (peripheral vascular disease) (HCC) Rheumatoid arthritis(714.0) Seizure (HCC) Wound dehiscence PAST SURGICAL HISTORY Procedure Laterality Date APPENDECTOMY BACK SURGERY HX 2009 lami and fusion L45 for spondylolisthesis BACK SURGERY HX 10/2020 CC PTCA STENT 2007, 2009 COLONOS W/REM POLYP SNARE 09/05/2009 repeat in EXCIS BREAST LESION rt PAST SURGICAL HISTORY OF Left foot PAST SURGICAL HISTORY OF Right shoulder PAST SURGICAL HISTORY OF Right hip surgery REVASCULARIZATION ILIAC ART ANGIOP EA IPSI VSL bilateral REVISE MEDIAN N/CARPAL TUNNEL SURG x 2 Carpal tunnel decomp TOTAL ABDOM HYSTERECTOMY Hysterectomy, AMALIA FAMILY HISTORY Problem Relation Age of Onset Cancer Mother lung Heart Mother Hypertension Father Heart Father Prostate Cancer Father Diabetes Brother Diabetes Paternal Grandmother Hypertension Paternal Grandmother Social History Tobacco Use Smoking status: Former Current packs/day: 0.00 Average packs/day: 1 pack/day for 10.0 years (10.0 ttl pk-yrs) Types: Cigarettes Start date: 07/09/1987 Quit date: 07/09/1997 Years since quittin.6 Smokeless tobacco: Never Vaping Use Vaping status: Never Used Substance Use Topics Alcohol use: No Drug use: No MEDICATIONS: Prior to Admission Medications Lactobacillus acidophilus 1 billion cell cap, Take 1 capsule by mouth once daily., Disp: , Rfl: , Taking levothyroxine 50 mcg cap, Take 50 mcg by mouth daily before breakfast., Disp: , Rfl: , Taking HYDROcodone-acetaminophen (NORCO) 5-325 mg per tablet, Take 1 tablet by mouth every 6 hours as needed for pain., Disp: , Rfl: 0, Taking As Needed meclizine (ANTIVERT) 25 mg tab, Take 25 mg by mouth two times a day as needed., Disp: , Rfl: , Taking As Needed cetirizine (ZYRTEC) 10 mg tablet, Take 10 mg by mouth once daily., Disp: , Rfl: , Taking clopidogrel (PLAVIX) 75 mg tablet, Take 75 mg by mouth once daily., Disp: , Rfl: , Taking potassium chloride ER (KLOR-CON) 20 mEq tablet, Take 20 mEq by mouth twice daily. (Patient taking differently: Take 40 mEq by mouth once daily. ON OFF DIALYSIS DAYS ; WEDNESDAY, WEDNESDAY, WEDNESDAY, WEDNESDAY), Disp: , Rfl: , Taking Differently ranolazine ER (RANEXA) 500 mg 12 hr tablet, Take 500 mg by mouth twice daily., Disp: , Rfl: , Taking rosuvastatin (CRESTOR) 40 mg tablet, Take 1 tablet by mouth once daily., Disp: 30 tablet, Rfl: 0, Taking levETIRAcetam (KEPPRA) 500 mg tablet, Take 500 mg by mouth twice daily., Disp: , Rfl: , Taking cholecalciferol (VITAMIN D-3) 5,000 unit tab, Take 5,000 Units by mouth once daily., Disp: , Rfl: , Taking furosemide (LASIX) 40 mg tablet, Take 40 mg by mouth. Wednesday, Wednesday and Wednesday (Patient taking differently: Take 40 mg by mouth once daily. EVERY DAY), Disp: , Rfl: , Taking Differently omeprazole 40 mg capsule, Take 40 mg by mouth once daily. (Patient taking differently: Take 40 mg by mouth two times a day.), Disp: , Rfl: , Taking Differently montelukast sodium(SINGULAIR 10 MG TAB), take one tablet by mouth daily, Disp: , Rfl: 0, Taking ALBUTEROL 90 MCG/ACTUATION AEROSOL INHALER, Inhale 1-2 Pu (more content not included)... Normal [facility] Magnesium SerPl-mCncon 02-18 Magnesium [Mass/Vol] 2.2 mg/dL Normal 1.6-2.6 [facility] Comment on above: Order Comment: Speci men Type: BLOOD SPECIMEN Ordering Facility: [facility] Address: [address] [place] [address] Performed By: #### 2 4321-2, 30614-6 #### [facility] CLIA [id number] [facility] [place] [address] [place] NURSING PROGon 02-18-2025 NURSING PROG HNO ID: [id number] Author: FARHANA DUBOIS RN Service: Nursing Author Type: Registered Nurse Type: Nursing Progress Note Filed: 02/19/2025 07:45 Note Text: Patient was in bed yelling at her spouse that she stated was in her restroom. Her light was turned on to show her that he was not there.and she said that she understood but whwn left alone she started yelling again. APRN. Haeys Thurman was notified and she was ordered Ativan to calm her. She eventually went to sleep. Normal [facility] NURSING PROG HNO ID: [id number] Author: FARHANA DUBOIS, RN Service: Nursing Author Type: Registered Nurse Type: Nursing Progress Note Filed: 02/18/2025 01:50 Note Text: Patient thinks that she is seeing ants or termites crawling out of the ceiling light. Have left the light on over her bed. Normal [facility] URINALYSIS, REFLEX MICROSCOP ICon 02-18-2025 Bacteria LM.HPF (Urine sed) [#/Area] Few Abnormal None Seen [facility] Comment on above: Order Comment: Speci men Type: URINE SPECIMEN Ordering Facility: [facility] Address: [address] [place] [address] Performed By: #### L [id number] #### [facility] CLIA [id number] [address] [place] [address] [place] Bilirubin Ql (U) Negative Normal Negative [facility] Comment on above: Order Comment: Speci men Type: URINE SPECIMEN Ordering Facility: [facility] Address: [address] [place] [address] Performed By: #### L [id number] #### [facility] CLIA [id number] [address] [place] [address] [place] Clarity (Unsp spec) Clear Normal Clear [facility] Comment on above: Order Comment: Speci men Type: URINE SPECIMEN Ordering Facility: [facility] Address: [address] [place] [address] Performed By: #### L [id number] #### [facility] CLIA [id number] [address] [place] [address] [place] Color (U) Yellow Normal Yellow [facility] Comment on above: Order Comment: Speci men Type: URINE SPECIMEN Ordering Facility: [facility] Address: [address] [place] [address] Performed By: #### L [id number] #### [facility] CLIA [id number] [address] [place] [address] [place] Epithelial cells LM.HPF (Urine sed) [#/Area] Few Normal [facility] Comment on above: Order Comment: Speci men Type: URINE SPECIMEN Ordering Facility: [facility] Address: [address] [place] [address] Performed By: #### L [id number] #### [facility] CLIA [id number] [address] [place] [address] [place] Glucose Test strip (U) [Mass/Vol] Negative Normal Negative [facility] Comment on above: Order Comment: Speci men Type: URINE SPECIMEN Ordering Facility: [facility] Address: [address] [place] [address] Performed By: #### L [id number] #### [facility] CLIA [id number] [address] [place] [address] [place] Hemoglobin Ql (U) Negative Normal Negative [facility] Comment on above: Order Comment: Speci men Type: URINE SPECIMEN Ordering Facility: [facility] Address: [address] [place] [address] Performed By: #### L [id number] #### [facility] CLIA [id number] [address] [place] [address] [place] Ketones Ql (U) Negative Normal Negative [facility] Comment on above: Order Comment: Speci men Type: URINE SPECIMEN Ordering Facility: [facility] Address: [address] [place] [address] Performed By: #### L [id number] #### [facility] CLIA [id number] [address] [place] [address] [place] Leukocyte esterase Test strip Ql (U) Negative Normal Negative [facility] Comment on above: Order Comment: Speci men Type: URINE SPECIMEN Ordering Facility: [facility] Address: [address] [place] [address] Performed By: #### L [id number] #### [facility] CLIA [id number] [address] [place] [address] [place] Nitrite Ql (U) Negative Normal Negative [facility] Comment on above: Order Comment: Speci men Type: URINE SPECIMEN Ordering Facility: [facility] Address: [address] [place] [address] Performed By: #### L [id number] #### [facility] CLIA [id number] [address] [place] [address] [place] pH (U) 7.0 [pH] Normal 5.0-8.0 [facility] Comment on above: Order Comment: Speci men Type: URINE SPECIMEN Ordering Facility: [facility] Address: [address] [place] [address] Performed By: #### L [id number] #### [facility] CLIA [id number] [address] [place] [address] [place] Protein (U) [Mass/Vol] 2+ Abnormal Negative [facility] Comment on above: Order Comment: Speci men Type: URINE SPECIMEN Ordering Facility: [facility] Address: [address] [place] [address] Performed By: #### L [id number] #### [facility] CLIA [id number] [address] [place] [address] [place] RBC LM.HPF (Urine sed) [#/Area] 0-3 /HPF Normal 0-3 /HPF [facility] Comment on above: Order Comment: Speci men Type: URINE SPECIMEN Ordering Facility: [facility] Address: [address] [place] [address] Performed By: #### L [id number] #### [facility] CLIA [id number] [address] [place] [address] [place] Specific gravity (U) [Rel density] 1.019 Normal 1.005-1.030 [facility] Comment on above: Order Comment: Speci men Type: URINE SPECIMEN Ordering Facility: [facility] Address: [address] [place] [address] Performed By: #### L [id number] #### [facility] CLIA [id number] [address] [place] [address] Urobilinogen Ql (U) Negative Normal Negative [facility] Comment on above: Order Comment: Speci men Type: URINE SPECIMEN Ordering Facility: [facility] Address: [address] [place] [address] Performed By: #### L [id number] #### [facility] CLIA [id number] [address] [place] [address] [place] WBC LM.HPF (Urine sed) [#/Area] 0-5 /HPF Normal 0-5 /HPF [facility] Comment on above: Order Comment: Speci men Type: URINE SPECIMEN Ordering Facility: [facility] Address: [address] [place] [address] Performed By: #### L [id number] #### [facility] CLIA [id number] [address] [place] [address] OF [place] US CAROTID ARTERIES [facility] LABon 02-18-2025 US CAROTID ARTERIES [facility] Non-Invasive Vascular Laboratory [facility] Carotid Duplex Bilateral/Complete Date of service/time: 02/18/2025 2:27:48 PM Name: MARCOS SHELTON Date of : 1950 Age: 74 years Gender: F Clinical Indication Confusion and athersclerosis. TECHNIQUE -------- A carotid duplex ultrasound examination was performed, including grayscale imaging and color Doppler and spectral Doppler examination of the below mentioned arteries. FINDINGS -------- RIGHT SIDE Common carotid artery: Origin: PSV: 165 cm/s. EDV: 7 cm/s. Proximal: PSV: 123 cm/s. EDV: 15 cm/s. Mid: PSV: 108 cm/s. EDV: 15 cm/s. Distal: PSV: 97 cm/s. EDV: 15 cm/s. Internal carotid artery: Origin: PSV: 101 cm/s. EDV: 17 cm/s. Proximal: PSV: 107 cm/s. EDV: 15 cm/s. Mid: PSV: 127 cm/s. EDV: 25 cm/s. Distal: PSV: 90 cm/s. EDV: 19 cm/s. Mild calcified and shadowing plaque from origin to proximal. ICA/CCA Ratio: 1.1 External carotid artery: Proximal: PSV: 125 cm/s. EDV: 12 cm/s. Subclavian artery: Origin: PSV: 234 cm/s. EDV: 0 cm/s. Proximal: PSV: 418 cm/s. EDV: 50 cm/s. Mid: PSV: 350 cm/s. EDV: 46 cm/s. Vertebral artery: PSV: 50 cm/s. EDV: 11 cm/s. LEFT SIDE Common carotid artery: Proximal: PSV: 137 cm/s. EDV: 15 cm/s. Mid: PSV: 87 cm/s. EDV: 11 cm/s. Distal: PSV: 101 cm/s. EDV: 15 cm/s. Internal carotid artery: Proximal: PSV: 67 cm/s. EDV: 15 cm/s. Mid: PSV: 67 cm/s. EDV: 16 cm/s. Distal: PSV: 112 cm/s. EDV: 22 cm/s. Mild calcified and shadowing plaque from origin to proximal. ICA/CCA Ratio: 0.7 External carotid artery: Proximal: PSV: 92 cm/s. EDV: 0 cm/s. Subclavian artery: Proximal: PSV: 222 cm/s. EDV: 0 cm/s. Vertebral artery: PSV: 60 cm/s. EDV: 12 cm/s. IMPRESSION Please note: the new carotid interpretation criteria are used as recommended by [employer]. Technically difficult exam due to patient's body habitus. RIGHT SIDE Common carotid artery: Plaque visualized without evidence of hemodynamically significant stenosis. Internal carotid artery: <50% stenosis consistent with mild carotid artery disease. Vertebral artery: Patent and antegrade flow noted. Innominate artery: Patent. Subclavian artery: 50-99% stenosis. LEFT SIDE Common carotid artery: Plaque visualized without evidence of hemodynamically significant stenosis. Internal carotid artery: <50% stenosis consistent with mild carotid artery disease. Vertebral artery: Patent and antegrade flow noted. Subclavian artery: Patent. Technologist: Alexandria Busch Ordering physician: TRENA WEINSTEIN Interpreting physician: Alden Hernández MD Final CC [employer] [facility] Image : [id number] See Link below for Image Normal [facility] CBC + DIFFon 02-17-2025 Baso # 0.03 x10EE3/UL Normal 0.00 - 0.10 [facility] Comment on above: Performed By: #### 2 [id number] #### [place] [id number] Basophils/100 WBC (Bld) 0.3 % Normal 0.0 - 2.0 [facility] Comment on above: Performed By: #### 2 46854 #### [place] [address] CBC + DIFF Normal [facility] Comment on above: Result Comment: CBC- COMPLETE BLOOD COUNT Performed By: #### 2 45824 #### [address] [address] EO # 0.13 x10EE3/UL Normal 0.00 - 0.50 [facility] Comment on above: Performed By: #### 2 87997 #### [address] [address] Eosinophils/100 WBC (Bld) 1.3 % Normal 0.0 - 7.0 [facility] Comment on above: Performed By: #### 2 74049 #### [place] [address] Erythrocyte distribution width (RBC) [Ratio] 15.5 % Normal 12.0 - 15.6 [facility] Comment on above: Performed By: #### 2 04282 #### [facility],[address] [place] [address] Hematocrit (Bld) [Volume fraction] 26.6 % Low 34.0 - 46.0 [facility] Comment on above: Performed By: #### 2 03502 #### [facility],[address] [place] [address] Hemoglobin (Bld) [Mass/Vol] 9.1 g/dL Low 12.0 - 16.0 [facility] Comment on above: Performed By: #### 2 22638 #### [facility],[address] [place] [address] Lymph # 1.51 x10EE3/UL Normal 0.80 - 2.80 [facility] Comment on above: Performed By: #### 2 07299 #### [place] [address] Lymphocytes/100 WBC (Bld) 14.6 % Low 20.0 - 45.0 [facility] Comment on above: Performed By: #### 2 24418 #### [place] [address] MANUAL DIFF N/A Normal [facility] Comment on above: Performed By: #### 2 72195 #### [facility],[address] [place], [place] [id number] MCH (RBC) [Entitic mass] 34 pg High 27 - 33 [facility] Comment on above: Performed By: #### 2 14218 #### [place] [id number] MCHC 34 X10 3 Normal 32 - 36 [facility] Comment on above: Performed By: #### 2 53357 #### [place] [address] MCV (RBC) [Entitic vol] 101 fL High 80 - 99 [facility] Comment on above: Performed By: #### 2 98960 #### [address] [address] [place] # 0.89 x10EE3/UL Normal 0.20 - 1.00 [facility] Comment on above: Performed By: #### 2 35592 #### [facility],[address] [place] [address] MONOS % 8.7 % Normal 0.0 - 10.0 [facility] Comment on above: Performed By: #### 2 63054 #### [address] [address] Morphology Matt (Bld) [Interp] N/A Normal [facility] Comment on above: Performed By: #### 2 57924 #### [address] [address] Neut # 7.76 x10EE3/UL High 1.50 - 7.10 [facility] Comment on above: Performed By: #### 2 46175 #### [address] [address] Neutrophils/100 WBC (Bld) 75.1 % Normal 46.0 - 76.0 [facility] Comment on above: Performed By: #### 2 74622 #### [facility],[address] [place] [address] PLATELET 212 x10EE3/UL Normal 150 - 450 [facility] Comment on above: Performed By: #### 2 34580 #### [address] [address] Platelet mean volume (Bld) [Entitic vol] 6.7 fL Normal 6.6 - 10.5 [facility] Comment on above: Result Comment: AUTO MATED DIFFERENTIAL Performed By: #### 2 22842 #### [facility],[address] [place] [address] RBC 2.63 x 10EE6/UL Low 4.10 - 5.30 [facility] Comment on above: Performed By: #### 2 72241 #### [facility],[address] [place] [address] WBC 10.3 x 10EE3/UL Normal 4.5 - 10.8 [facility] Comment on above: Performed By: #### 2 91652 #### [facility],[address] [place] [address] CHEST 1 VIEWon 02-17-2025 CHEST 1 VIEW [place] [address] Patient: MARCOS SHELTON Phone#: : 1950 Age: 74 Gender: F Pt. Type: ER Account: [id number] Location: [facility] Ordering: RUFUS TORRES Exam Date: 02/17/2025/8:16 Family Phys: BELL MAHER Charge Code: [id number] Physician: [place] Order #: [id number] Dose#: PROCEDURE: X-RAY CHEST 1 VIEW COMPARISON: [facility], XR, CHEST 1 VIEW, 01/05/2025, 16:27. INDICATIONS: Trauma. FINDINGS: LUNGS: Normal. No significant pulmonary parenchymal abnormalities. VASCULATURE: Normal. Unremarkable pulmonary vasculature. CARDIAC: Normal. No cardiac silhouette abnormality or cardiomegaly. MEDIASTINUM: Normal. No visible mass or adenopathy. PLEURA: Normal. No effusion or pleural thickening. BONES: Right shoulder prosthesis is present. There is surgical fixation at the lower cervical level. OTHER: Negative. CONCLUSION: 1. There is no evidence of acute pulmonary abnormality. Dictated by: Elizabeth Tariq MD on 02/17/2025 at 8:40 Approved by: Elizabeth Tariq MD on 02/17/2025 at 8:41 Normal [facility] CK SerPl-cCncon 02-17-2025 CK [Catalytic activity/Vol] 170 U/L High 28-152 [facility] Comment on above: Order Comment: Speci men Type: BLOOD SPECIMEN Ordering Facility: [facility] Address: [address] [place] [address] Performed By: #### 2 157-6 #### [facility] CLIA [id number] [address] [place] [address] [place] CMP with eGFRon 02-17-2025 AGE 74 years Normal [facility] Comment on above: Performed By: #### 2 83109 #### [facility],[address] [place] [address] Albumin [Mass/Vol] 2.9 g/dL Low 3.4 - 5.0 [facility] Comment on above: Performed By: #### 2 62809 #### [facility],[address] [place] [address] Albumin/Globulin [Mass ratio] 0.7 {ratio} Low 0.9 - 1.6 [facility] Comment on above: Performed By: #### 2 36798 #### [facility],[address] [place] [address] ALK PHOS 66 U/L Normal 46 - 116 [facility] Comment on above: Performed By: #### 2 74038 #### [facility],[address] [place] [address] ALT [Catalytic activity/Vol] 21 U/L Normal 16 - 63 [facility] Comment on above: Performed By: #### 2 41836 #### [facility],[address] [place] [address] Anion gap [Moles/Vol] 14 mmol/L Normal 10 - 20 [facility] Comment on above: Performed By: #### 2 63504 #### [facility],[address] [place] [address] AST [Catalytic activity/Vol] 30 U/L Normal 13 - 39 [facility] Comment on above: Performed By: #### 2 12710 #### [facility],[address] [place] [address] B/C RATIO 5 ratio Normal 0 - 30 [facility] Comment on above: Performed By: #### 2 48442 #### [facility],[address] [place] [address] Bilirubin [Mass/Vol] 0.5 mg/dL Normal 0.2 - 1.0 [facility] Comment on above: Performed By: #### 2 55876 #### [facility],[address] [place] [address] Calcium [Mass/Vol] 9.2 mg/dL Normal 8.5 - 10.1 [facility] Comment on above: Performed By: #### 2 77307 #### [facility],[address] [place] [address] Chloride [Moles/Vol] 95 mmol/L Low 98 - 107 [facility] Comment on above: Performed By: #### 2 69654 #### [facility],[address] [place] [address] CMP with eGFR Normal [facility] Comment on above: Result Comment: COMP REHENSIVE METABOLIC PANEL Performed By: #### 2 70397 #### [facility],[address] [place] [address] CO2 [Moles/Vol] 29.3 mmol/L Normal 21.0 - 32.0 [facility] Comment on above: Performed By: #### 2 70392 #### [facility],[address] [place] [address] Creatinine [Mass/Vol] 4.51 mg/dL High 0.55 - 1.02 [facility] Comment on above: Performed By: #### 2 88044 #### [facility],[address] [place] [address] 12558 eGFR 10 ML/MINUTE Low 60 - 999 [facility] Comment on above: Performed By: #### 2 41265 #### [facility],[address] [place] [address] eGFR(AA) 12 ML/MINUTE Low 60 - 999 [facility] Comment on above: Result Comment: ACCO RDING TO THE NATIONAL KIDNEY DISEASE EDUCATION PROGRAM(NKDE), A NORMAL eGFR IS A VALUE GREATER THAN OR EQUAL TO 60 ML/MIN/1.73 SQ METERS. CHRONIC KIDNEY DISEASE: <60mL/MIN/1.73 SQ METERS KIDNEY FAILURE: <15mL/MIN/1.73 SQ METERS THIS TEST SHOULD ONLY BE USED FOR PATIENTS 18 YEARS OF AGE AND OLDER. Performed By: #### 2 81609 #### [facility],[address] [place] [address] Globulin (S) [Mass/Vol] 4.1 g/dL High 1.5 - 3.8 [facility] Comment on above: Performed By: #### 2 24492 #### [address] [address] Glucose [Mass/Vol] 101 mg/dL Normal 74 - 106 [facility] Comment on above: Performed By: #### 2 11289 #### [address] [address] Potassium [Moles/Vol] 5.1 mmol/L Normal 3.5 - 5.1 [facility] Comment on above: Performed By: #### 2 03616 #### [address] [address] Protein [Mass/Vol] 7.0 g/dL Normal 6.4 - 8.2 [facility] Comment on above: Performed By: #### 2 77129 #### [address] [address] Sodium [Moles/Vol] 133 mmol/L Low 136 - 145 [facility] Comment on above: Performed By: #### 2 00158 #### [address] [address] Urea nitrogen [Mass/Vol] 24 mg/dL High 7 - 18 [facility] Comment on above: Performed By: #### 2 47879 #### [facility],[address] [place] [address] ABDOMEN/PELVIS WO 02-17 CT ABDOMEN/PELVIS [address] [address] Patient: MARCOS SHELTON Phone#: : 1950 Age: 74 Gender: F Pt. Type: ER Account: [id number] Location: 052 Ordering: RUFUS TORRES Exam Date: 02/17/2025/8:46 Family Phys: BELL MAHER Charge Code: [id number] Physician: [place] Order #: [id number] Dose#: 12.80 mGy PROCEDURE: CT ABDOMEN/PELVIS WITHOUT CONTRAST COMPARISON: [facility], CT, ABDOMEN/PELVIS W/O CON, 10/28/2021, 22:35. INDICATIONS: Trauma. TECHNIQUE: CT images were created without intravenous contrast. All CT scans at this facility use dose modulation, iterative reconstruction, and/or weight based dosing when appropriate to reduce radiation dose to as low as reasonably achievable. IV CONTRAST: No IV contrast used,0.0ml TOTAL DOSE: 12.80 CTDIvol(mGy) FINDINGS: LIVER: Normal. No enlargement, atrophy, abnormal density, or significant focal lesion. BILIARY: Minimal increased attenuation in the dependent aspect of the gallbladder suspicious for gravel. There is no evidence of biliary dilatation. PANCREAS: Normal. No lesion, fluid collection, ductal dilatation, or atrophy. SPLEEN: Normal. No enlargement or focal lesion. KIDNEYS: Bilateral renal atrophy is present. ADRENALS: Normal. No mass or enlargement. AORTA/VASCULAR: Extensive aortic and branch vessel calcification without aneurysmal dilatation. RETROPERITONEUM: Normal. No mass or adenopathy. BOWEL/MESENTERY: Normal. No visible mass, obstruction, or bowel wall thickening. ABDOMINAL WALL: Normal. No mass or hernia. URINARY BLADDER: Normal. No visible focal wall thickening, lesion, or calculus. PELVIC NODES: Normal. No adenopathy. PELVIC ORGANS: Normal. No visible mass. Pelvic organs appropriate for patient age. BONES: Right hip surgical fixation is present. L2-3 and L3-4 intervertebral artifact likely disc prostheses. Disc space narrowing is present at the L4-5 and L5-S1 levels. There is no evidence of acute fracture. There has been laminectomy at L3 and L4. There is bony hypertrophy at the lumbar articulations. LUNG BASES: There is a nonspecific 4 millimeter nodule in the right lung base. Coronary artery calcification. No visible pulmonary or pleural disease. OTHER: Negative. Continued Report - Page 2 of 2 Patient: MARCOS SHELTON Phone#: : 1950 Age: 74 Gender: F Pt. Type: ER Account: [id number] Location: 052 Ordering: RUFUS TORRES Exam Date: 02/17/2025/8:46 Family Phys: BELL MAHER Charge Code: [id number] Physician: [place] Order #: [id number] Dose#: 12.80 mGy CONCLUSION: 1. Postsurgical changes at the lumbar spine. There is no evidence of acute bone abnormality. Right hip fixation is present. 2. Probable gravel in the gallbladder. 3. Renal atrophy. Dictated by: Elizabeth Tariq MD on 02/17/2025 at 9:05 Approved by: Elizabeth Tariq MD on 02/17/2025 at 9:11 Normal [facility] CT BRAIN W/O CONTRASTon 01-22 CT BRAIN W/O CONTRAST [place] [address] Patient: MARCOS SHELTON Phone#: : 1950 Age: 74 Gender: F Pt. Type: ER Account: [id number] Location: 052 Ordering: RUFUS TORRES Exam Date: 02/17/2025/8:43 Family Phys: BELL MAHER Charge Code: [id number] Physician: [place] Order #: [id number] Dose#: 52.30 mGy PROCEDURE: CT BRAIN WITHOUT CONTRAST COMPARISON: [facility], CT, BRAIN W/O CON, 10/28/2021, 22:29. INDICATIONS: Trauma. TECHNIQUE: CT images were obtained without contrast material. All CT scans at this facility use dose modulation, iterative reconstruction, and/or weight based dosing when appropriate to reduce radiation dose to as low as reasonably achievable. IV CONTRAST: No IV contrast used,0.0ml TOTAL DOSE: 52.30 CTDIvol(mGy) FINDINGS: CEREBRUM: Atrophic age related changes are present. There is diminished attenuation in the right frontal parietal lobes. There is peripheral hyperemia. Findings consistent with subacute infarct. There is no evidence of focal hemorrhage. CEREBELLUM: No edema, hemorrhage, mass, acute infarction, or inappropriate atrophy. BRAINSTEM: No edema, hemorrhage, mass, acute infarction, or inappropriate atrophy. CSF SPACES: Ventricles, cisterns, and sulci are appropriate for age. No hydrocephalus, subarachnoid hemorrhage, or mass. SKULL: No mass or other significant visible lesion. SINUSES: Limited views demonstrate no significant mucosal thickening or fluid. ORBITS: Limited views are unremarkable. OTHER: Negative. CONCLUSION: 1. 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 This finding is new since previous exam of October 28, 2021. Dictated by: Elizabeth Tariq MD on 02/17/2025 at 8:58 Approved by: Elizabeth Tariq MD on 02/17/2025 at 9:04 Normal [facility] ED MED ADMINISTRATION DETAIL on 02-17-2025 ED MED ADMINISTRATION DETAIL Bucket [employer] Operator Medication Administration Record [address] [place] [address] [id number] 02/17/2025 Patient: MARCOS SHELTON Sex: Female : 1950 Age: 74y MEASUREMENTS: Wt: 81.6 kg, Ht/Gustavo: 64.0 in, BMI: 30.90 ALLERGIES: Macrodantin, Penicillins, Qywasnp-NJL-XtT Reductase Inhibitors, WelChol, metolazone, nitrofurantoin, tramadol Medication Ordered Medication Administration Date/Time HYDROmorphone 08:04 02/17 HYDROmorphone (Dilaudid) IVP 0.5 mg given via Given (Dilaudid) IVP 0.5 Site# 1. Allergies verified and confirmed 5 rights. IV patency 08:04 02/17/2025 mg (NOW x1, HIGH established. IV site checked: no pain, redness, or swelling. IV Denise Mays R.N. ALERT flushed thoroughly pre-medication administration. Information Scanned MEDICATION) reviewed with patient. (pain 6/10). Medication Wastage: 0.5 mg wasted. - 08:07 Denise Mays R.N. OxyCODONE-APAP 12:16 02/17 OxyCODONE-APAP 5-325 (Percocet) PO 1 tab Given 5-325 (Percocet) PO given. - 12:16 Magui Keating R.N. 12:16 02/17/2025 1 tab (NOW x1, Magui Keating, HIGH ALERT R.NDarvin MEDICATION) Scanned 1 of 1 Normal [facility] ED NURSES CLINICAL NOTEon ED NURSES CLINICAL NOTE Nurse Narrative Nurse Clinical Narrative [address] [address] [id number] 02/17/2025 07:13:00 Patient: MARCOS SHELTON Sex: Female : 1950 Age: 74y Disposition: Transfer to [facility] Disposition Decision Time: 11:16 02/17/2025 Departure Time: 12:38 02/17/2025 TRIAGE Arrived by EMS. Historian: (patient). Triage time: 07:15 02/17/2025. Acuity: LEVEL 3. Chief Complaint: FALL. Slipped. (slid off toilet). The patient has had extremity pain (right hip). No loss of consciousness. No alteration in mental status, dizziness, neck pain or back pain. SEPSIS SCREEN: NEGATIVE. SIRS criteria negative. No possible sources of infection. -- 07:02/17/25 EDT Denise Mays R.N. 07:02/17/25. BP: 103/47 MAP: 66. HR: 72. RR: 18. O2 saturation: 97% Temperature: 97.1 F. Pain level now 6/10. -- 07:02/17/25 EDT Denise Myas R.N. Measurements: 07:02/17/25 Wt: 81.6 kg, Ht/Gustavo: 64.0 in, BMI: 30.90 -- 07:26 02/17/25 PHUC Mays R.N. Medications: albuterol sulfate HFA 90 mcg/actuation aerosol inhaler -- 08:30 02/17/25 PHUC Mays R.N. clopidogrel 75 mg tablet: 75 mg once a day . -- 08:31 02/17/25 PHUC Mays R.N. furosemide 40 mg tablet: 20 mg once a day . -- 08:02/17/25 PHUC Mays R.N. 1 of 5 Nurse Narrative metoprolol succinate ER 25 mg tablet,extended release 24 hr: 25 mg once a day . -- 08:02/17/25 PHUC Mays R.N. ranolazine ER 500 mg tablet,extended release,12 hr: 500 mg twice a day . -- 08:02/17/25 PHUC Mays R.N. levetiracetam 500 mg tablet: 500 mg twice a day . -- 08:32 02/17/25 PHUC Mays R.N. omeprazole 40 mg capsule,delayed release: 40 mg twice a day . -- 08:32 02/17/25 PHUC Mays R.N. levothyroxine 50 mcg tablet: 50 mcg once a day . -- 08:32 02/17/25 PHUC Mays R.N. montelukast 10 mg tablet: 10 mg once a day . -- 08:32 02/17/25 PHUC Mays R.N. rosuvastatin 40 mg tablet: 40 mg once a day . -- 08:33 02/17/25 PHUC Mays R.N. hydrocodone 5 mg-acetaminophen 325 mg tablet: 1 tab every 6 hours as needed. -- 08:34 02/17/25 PHUC Mays R.N. potassium chloride ER 20 mEq tablet,extended release: 40 mEq . (on off days of dialysis) -- 08:35 02/17/25 PHUC Mays R.N. Bactrim DS 800 mg-160 mg tablet: 1 tab once a day . (for 14 days) -- 08:38 02/17/25 PHUC Mays R.N. Allergies: metolazone -- 07:55 02/17/25 PHUC Mays R.N. WelChol -- 07:55 02/17/25 Michel Mays R.N. Penicillins -- 07:55 02/17/25 [facility] Denise Mays R.N. Bdtooor-EBT-JkN Reductase Inhibitors -- 07:55 02/17/25 [facility] Denise Mays R.N. tramadol -- 07:55 02/17/25 [facility] Denise Mays R.N. nitrofurantoin -- 07:56 02/17/25 [facility] Denise Mays R.N. Macrodantin -- 07:56 02/17/25 [facility] Denise Mays R.N. Problems: Coronary Artery Disease -- 08:18 02/17/25 [facility] Mays R.N. Chronic kidney disease stage 5 -- 08:18 02/17/25 PHUC Mays R.N. Hypertension -- 08:18 02/17/25 PHUC Mays R.N. Surgeries: Hysterectomy -- 07:26 02/17/25 PHUC Mays R.N. Shoulder Surgery -- 07:26 02/17/25 PHUC Mays R.N. Placement of stent in coronary artery. (x5) -- 07:27 02/17/25 PHUC Mays R.N. left foot -- 07:27 02/17/25 [facility] Mays R.N. Carpal Tunnel Surgery -- 07:27 02/17/25 PHUC Mays R.N. 2 of 5 Nurse Narrative History 07:15 02/17/25. SOCIAL HX: Never smoker. No alcohol use or drug use. The patient has not traveled outside the [place] Infectious disease exposure: No infectious disease exposure. ABUSE ASSESSMENT: The patient answered yes to the question(s) Do you feel safe in your home? and no to the question(s) Are you afraid to go home?. SELF HARM ASSESSMENT: Self harm assessment was performed. The patient answered no to the question(s) Have you recently felt down, depressed, or hopeless? and Do you have thoughts of harming or killing yourself?. FALL RISK ASSESSMENT: Fall risk assessment completed. Fall interventions initiated. Side rails up x2. Bed in low position. Brakes on. Patient identified as a fall risk by ID band. -- 07:26 02/17/25 EDT Denise Mays R.N. Interventions 07:15 02/17/25. To room. Advanced care plan discussed with patient. Patient does not have advanced directive. -- 07:02/17/25 EDT Denise Mays R.N. PHYSICAL ASSESSMENT 07:30 02/17/25. GENERAL / NEURO / PSYCH: Alert. Oriented X 4. Appears in no acute distress. HEENT: Pupils equal, round and reactive to light. Head non-tender. RESPIRATORY: Respirations not labored. GI / : Abdomen soft. EXTREMITIES: Extremities do not exhibit normal ROM. The patient was unable to bear weight. Neuro-vascular status intact to the extremity. Right hip. Limited ROM secondary to pain (diminished abduction, adduction, flexion, extension and external and internal rotati (more content not included)... Normal [facility] ED ORDER SHEET (CPOE ONLY)on 02-17-2025 ED ORDER SHEET (CPOE ONLY) Order Sheet Order Sheet [address] [place] [address] [id number] 02/17/2025 Patient: MARCOS SHELTON Sex: Female : 1950 Age: 74y MEASUREMENTS: Wt: 81.6 kg, Ht/Gustavo: 64.0 in, BMI: 30.90 ALLERGIES: Macrodantin, Penicillins, Sdbvzyu-IIL-BgB Reductase Inhibitors, WelChol, metolazone, nitrofurantoin, tramadol MEDICATION/IV/DRIP/FLUID ORDERS Order Description Priority Entered Acknowledged Completed HYDROmorphone (Dilaudid) 07:39 02/17/2025 08:07 IVP0.5 mg (NOW x1, HIGH Rufus Torres, 02/17/2025 ALERT MEDICATION) Bren Mays R.N. OxyCODONE-APAP 5-325 12:09 02/17/2025 12:13 12:16 (Percocet) PO1 tab (NOW x1, Rufus Torres, 02/17/2025 02/17/2025 HIGH ALERT MEDICATION) Cynthia Vargas R.N. Reason for ordering with alerts: Benefits outweigh risks --12:09 02/17/2025 Rufus Torres D.O. LAB ORDERS Order Description Priority Entered Acknowledged Collected Completed CBC w Diff Stat Stat 07:26 02/17/2025 08:15 02/17/2025 Denise Orlando R.N. D.ODarvin 1 of 3 Order Sheet CMP Stat Stat 07:26 02/17/2025 08:15 02/17/2025 Denise Orlando R.N. D.ODarvin EKG - ED Stat Stat 07:26 02/17/2025 08:15 02/17/2025 08:45 02/17/2025 Denise Orlando R.N. Nathan Hall, R.N. D.ODarvin Troponin-I Stat Stat 07:26 02/17/2025 08:15 02/17/2025 Denise Orlando R.N. D.ODarvin Urinalysis Stat Stat 07:26 02/17/2025 08:16 02/17/2025 Denise Orlando R.N. D.ODarvin DIAGNOSTIC STUDY ORDERS Order Description Priority Entered Acknowledged Completed Chest 1V Stat Stat 07:26 02/17/2025 08:15 Rufus Torres, 02/17/2025 Bren Mays R.N. Order Comments: 07:02/17/2025: Status: Not . Rufus Torres D.O. Reason for Study: Trauma/Injury Hip R 2+Views w/AP Pelvis Stat Stat 07:26 02/17/2025 08:15 Rufus Torres, 02/17/2025 Bren Mays R.N. Order Comments: 07:02/17/2025: Status: Not . Rufus Torres D.O. Reason for Study: Hip Injury,Hip Pain [address] of [address] Brain wo Cont Stat Stat 08:32 02/17/2025 08:45 08:45 Rufus Torres, 02/17/2025 02/17/2025 Denise Pinedo R.N. RJimena Reason for Study: Trauma/Injury CT ABD/PEL wo Cont Stat Stat 08:32 02/17/2025 08:45 08:45 Rufus Torres 02/17/2025 02/17/2025 Denise Pinedo R.N. R.N. Reason for Study: Trauma/Injury STAFF ORDERS Order Description Priority Entered Acknowledged Collected Completed IV Saline Lock 07:26 02/17/2025 08:15 02/17/2025 Denise Orlando R.N. D.ODarvin Pulse Oximeter 07:26 02/17/2025 08:15 02/17/2025 Denise Orlando R.N. D.ODarvin Oxygen titrate to 92% 07:26 02/17/2025 08:15 02/17/2025 Denise Orlando R.N. D.ODarvin Oriental Rug Repairer 07:26 02/17/2025 08:16 02/17/2025 Denise Orlando R.N. D.O. [Electronically signed by Rufus Torres D.O. (02/17/2025 20:28 EDT)] 3 of 3 Normal [facility] ED PHYSICIAN CLINICAL REPORT on 02-17-2025 ED PHYSICIAN CLINICAL REPORT Narrative Physician Clinical Narrative [address] [address] [id number] 02/17/2025 07:13:00 Patient: MARCOS SHELTON Sex: Female : 1950 Age: 74y Disposition: Transfer to [facility] Disposition Decision Time: 11:16 02/17/2025 Departure Time: 12:38 02/17/2025 Measurements Wt: 81.6 kg, Ht/Gustavo: 64.0 in, BMI: 30.90 Initial Vital Sign Measured Time BP MAP HR RR O2Sat ETCO2 Temp Pain GCS RTS 07:25 02/17/2025 103/47 66 72 18 97% 97.1 F 6 Time Seen: 07:20 02/17/2025. Arrived- By ambulance. Historian- patient. Independent historian- EMS personnel. HISTORY OF PRESENT ILLNESS Chief Complaint: FALL. The injury occurred today. Fell. Occurred at home. ( patient was going to the restroom about 330 in the morning and when she went to pull down her pants she lost her balance and fell. She then laid for about 3 hours until her found her in the morning and called the ambulance he ambulance brought her into the emergency department she has been having issues with falling she has chronic back pain and generalized weakness and she said it just legs gave out and she lost balance and fell she denied any neck pain deny chest pain she denies any shortness of breath. She did complain of right hip pain.). The patient complains of severe pain. No blow to the head, neck pain or loss of consciousness. 1 of 14 Narrative REVIEW OF SYSTEMS MUSCULOSKELETAL: The patient complains of pain on weight bearing. GI: No nausea, abdominal pain or vomiting. CVS: No chest pain. EARS: No hearing loss. EYES: No loss of vision. NEUROLOGICAL: No dizziness or headache. The patient has had weakness. Status: Not . PAST HISTORY See nurses notes. Chronic kidney disease stage 5 Coronary Artery Disease Hypertension Surgeries: Carpal Tunnel Surgery Hysterectomy left foot Placement of stent in coronary artery: (x5) Shoulder Surgery Medications: albuterol sulfate HFA 90 mcg/actuation aerosol inhaler Bactrim DS 800 mg-160 mg tablet: 1 tab once a day . (for 14 days) clopidogrel 75 mg tablet: 75 mg once a day . furosemide 40 mg tablet: 20 mg once a day . hydrocodone 5 mg-acetaminophen 325 mg tablet: 1 tab every 6 hours as needed. levetiracetam 500 mg tablet: 500 mg twice a day . levothyroxine 50 mcg tablet: 50 mcg once a day . metoprolol succinate ER 25 mg tablet,extended release 24 hr: 25 mg once a day . montelukast 10 mg tablet: 10 mg once a day . omeprazole 40 mg capsule,delayed release: 40 mg twice a day . potassium chloride ER 20 mEq tablet,extended release: 40 mEq . (on off days of dialysis) ranolazine ER 500 mg tablet,extended release,12 hr: 500 mg twice a day . rosuvastatin 40 mg tablet: 40 mg once a day . Allergies: 2 of 14 Narrative Macrodantin metolazone nitrofurantoin Penicillins Kdmzjuw-GPZ-XnP Reductase Inhibitors tramadol WelChol SOCIAL HISTORY Never smoker. No alcohol use. ADDITIONAL NOTES The nursing notes have been reviewed. PHYSICAL EXAM Appearance: Alert. Oriented X3. No acute distress. Head: Head non-tender. No swelling of head. Eyes: Pupils equal, round and reactive to light. EOM intact. ENT: No dental injury. Neck: Painless ROM. Non-tender. CVS: Heart sounds normal. Pulses normal. Respiratory: Painless inspiration. Chest nontender. Abdomen: No visible injury. Soft and nontender. Back: No tenderness. ROM normal. Skin: Skin intact. Poor skin turgor. (patient has multiple bruises and discoloration to her skin she is a dialysis patient.). Extremities: Normal inspection. Pelvis stable. Extremities atraumatic. Gait: The patient was unable to bear weight. Neuro: Oriented X 3. No motor deficit. LABS, X-RAYS, AND EKG 12-LEAD EKG: EKG time: 08:25 02/17/2025. No acute process. Normal sinus rhythm. Rate: 74. Normal axis. Normal QTc. Interpretation time: 08:25 02/17/2025. Laboratory Tests: 3 of 14 Narrative CBC + DIFF Final BAUTISTA: 02/17/2025 07:50:00 EDT MsgRcvd: 02/17/2025 08:22 EDT Lab Test Result Reference Status Received Comments 02/17/2025 08:22 CBC-COMPLETE CBC + DIFF Final EDT BLOOD COUNT 02/17/2025 08:22 WBC 10.3 x 10/UL 4.5 - 10.8 Final EDT 2.63 x 10/UL 02/17/2025 08:22 RBC 4.10 - 5.30 Final Below low normal EDT 9.1 g/dl 02/17/2025 08:22 HEMOGLOBIN 12.0 - 16.0 Final Below low normal EDT 26.6 % 02/17/2025 08:22 HEMATOCRIT 34.0 - 46.0 Final Below low normal EDT 101 fl 02/17/2025 08:22 MCV 80 - 99 Final Above high normal EDT 34 pg 02/17/2025 08:22 MCH 27 - 33 Final Above high normal EDT 02/17/2025 08:22 MCHC 34 X10 3 32 - 36 Final EDT 02/17/2025 08:22 RDW/CV 15.5 % 12.0 - 15.6 Final EDT 02/17/2025 08:22 PLATELET 212 x10/UL 150 - 450 Final EDT 02/17/2025 08:22 AUTOMATED (more content not included)... Normal [facility] ED SUPER BILLon 02-17-2025 ED SUPER BILL Super[id number] [place] [address] [phone] 02/17/2025 Patient: MARCOS SHELTON Sex: Female : 1950 Age: 74y Facility Professional Category Item Description Code Code Quantity Fee Total Drugs Normal Saline 840670 1 $0.00 $0.00 1000cc (331666) Nurse/E/M EMERGENCY 576782 1 $0.00 $0.00 DEPT VISIT HIGH SEVERITYFUNCJ (49769-35) Nurse/IV/IM/Infusions IVP initial (82931) 563232 1 $0.00 $0.00 Grand $0.00 Total Providers Rufus Torres D.O. Chief Complaint FALL. Principal Diagnosis 1 of 2 [facility] Acute traumatic pain in the lower back (with radiation to the right leg) and right lower extremity (hip). Acute generalized weakness. Severe renal failure- end stage disease. Single contusion to the right hip. ICD-10 Codes G89.11: Acute pain due to trauma R53.1: Weakness S70.01xA: Contusion of right hip, initial encounter N19: Unspecified kidney failure N18.6: End stage renal disease 2 of 2 Normal [facility] ED VISIT SUMMARYon ED VISIT SUMMARY Visit Overview Visit Overview [address] [address] [id number] 02/17/2025 Patient: MARCOS SHELTON Sex: Female : 1950 Age: 74y 02/17/2025 10:34 PM EDT ED Arrival:07:23 02/17/2025 EDT Status:not Recent Travel:no Language:eng Adv Directive:No Isolation Status: Ethnicity:N Fall Risk: Infectious Disease Exposure:no Measurements:5'4 / 162.6 Self-Harm Status:risk Sepsis Screen:negative cm 180.0 lb / 81.6 kg Chief Complaint:slipped, (right hip), and (slid off toilet) ALLERGIES Macrodantin metolazone nitrofurantoin Penicillins Adzrtbx-NZX-UpY Reductase Inhibitors tramadol WelChol HOME MEDICATIONS albuterol sulfate HFA 90 mcg/actuation aerosol inhaler of 4 Visit Overview Bactrim DS 800 mg-160 mg tablet: 1 tab once a day . (for 14 days) clopidogrel 75 mg tablet: 75 mg once a day . furosemide 40 mg tablet: 20 mg once a day . hydrocodone 5 mg-acetaminophen 325 mg tablet: 1 tab every 6 hours as needed. levetiracetam 500 mg tablet: 500 mg twice a day . levothyroxine 50 mcg tablet: 50 mcg once a day . metoprolol succinate ER 25 mg tablet,extended release 24 hr: 25 mg once a day . montelukast 10 mg tablet: 10 mg once a day . omeprazole 40 mg capsule,delayed release: 40 mg twice a day . potassium chloride ER 20 mEq tablet,extended release: 40 mEq . (on off days of dialysis) ranolazine ER 500 mg tablet,extended release,12 hr: 500 mg twice a day . rosuvastatin 40 mg tablet: 40 mg once a day . PAST MEDICAL HISTORY / PROBLEMS Chronic kidney disease stage 5 Coronary Artery Disease Hypertension See nurses notes PAST SURGICAL HISTORY Carpal Tunnel Surgery Hysterectomy left foot Placement of stent in coronary artery. (x5) Shoulder Surgery SOCIAL HISTORY Smoking status: No Alcohol use: No Drug use: No ED COURSE MEDICATIONS GIVEN IN EMERGENCY DEPARTMENT 08:04 02/17/25 HYDROmorphone (Dilaudid) IVP 0.5 mg 2 of 4 Visit Overview 12:16 02/17/25 OxyCODONE-APAP 5-325 (Percocet) PO 1 tab IV SITE INFORMATION 07:51 02/17/25 Site #1 left AC, 20g. Saline lock. INTAKE OUTPUT REASSESMENT (most recent) 07:30 02/17/25. GENERAL / NEURO / PSYCH: Alert. Oriented X 4. Appears in no acute distress. HEENT: Pupils equal, round and reactive to light. Head non-tender. RESPIRATORY: Respirations not labored. GI / : Abdomen soft. EXTREMITIES: Extremities do not exhibit normal ROM. The patient was unable to bear weight. Neuro-vascular status intact to the extremity. Right hip. Limited ROM secondary to pain (diminished abduction, adduction, flexion, extension and external and internal rotation) (pain). SKIN: Skin is warm and dry. Generalized ecchymosis. VITAL SIGNS First Vitals Last Vitals Temp 07:25 02/17/25 97.1 F Temp 12:34 02/17/25 BP 07:25 02/17/25 103/47 BP 12:34 02/17/25 65/44 HR 07:25 02/17/25 72 HR 12:34 02/17/25 73 RR 07:25 02/17/25 18 RR 12:34 02/17/25 O2 Sat 07:25 02/17/25 97% O2 Sat 12:34 02/17/25 Pain 07:25 02/17/25 6 Pain 12:34 02/17/25 ETCO2 07:25 02/17/25 ETCO2 12:34 02/17/25 GCS 07:25 02/17/25 GCS 12:34 02/17/25 RTS 07:25 02/17/25 RTS 12:34 02/17/25 PROCEDURES NURSING INTERVENTIONS LABS / STUDIES LABS / STUDIES ORDERED CBC w Diff Chest 1V CMP CT ABD/PEL wo Cont 3 of [address] Brain wo Cont EKG - ED Hip R 2+Views w/AP Pelvis Troponin-I Urinalysis CLINICAL IMPRESSION ACUTE GENERALIZED WEAKNESS ACUTE TRAUMATIC PAIN IN THE LOWER BACK (WITH RADIATION TO THE RIGHT LEG) AND RIGHT LOWER EXTREMITY (HIP) SEVERE RENAL FAILURE- END STAGE DISEASE SINGLE CONTUSION TO THE RIGHT HIP 4 of 4 Normal [facility] ED VITALS FLOW SHEETon 02-17 ED VITALS FLOW SHEET Vitals Vital Sign Flow Sheet [facility] [address] [place] [address] [id number] 02/17/2025 Patient: MARCOS SHELTON Sex: Female : 1950 Age: 74y Measurements Wt: 81.6 kg, Ht/Gustavo: 64.0 in, BMI: 30.90 Measured Time BP MAP HR RR O2Sat ETCO2 Temp Pain GCS RTS 12:34 02/17/2025 65/44 51 73 12:18 02/17/2025 101/38 73 78 12:13 02/17/2025 69% 12:08 02/17/2025 73 96% 12:03 02/17/2025 115/43 67 71 12:03 02/17/2025 74 97% 11:58 02/17/2025 76 96% 11:53 02/17/2025 75 94% 11:48 02/17/2025 113/33 75 76 11:48 02/17/2025 76 98% 11:43 02/17/2025 76 98% 11:38 02/17/2025 76 96% 11:33 02/17/2025 75 98% 11:33 02/17/2025 114/50 73 74 11:23 02/17/2025 71 96% 1 of 3 Vitals Measured Time BP MAP HR RR O2Sat ETCO2 Temp Pain GCS RTS 11:18 02/17/2025 75 96% 11:18 02/17/2025 103/38 63 73 11:13 02/17/2025 74 97% 11:08 02/17/2025 74 97% 11:03 02/17/2025 74 94% 11:03 02/17/2025 117/36 67 72 10:58 02/17/2025 72 95% 10:53 02/17/2025 74 96% 10:48 02/17/2025 73 97% 10:48 02/17/2025 114/46 60 74 10:43 02/17/2025 74 97% 10:42 02/17/2025 101/41 65 72 10:38 02/17/2025 75 98% 10:33 02/17/2025 91/40 63 77 10:33 02/17/2025 76 90% 10:28 02/17/2025 72 97% 10:23 02/17/2025 74 97% 10:22 02/17/2025 105/61 75 75 10:18 02/17/2025 78/54 59 75 10:18 02/17/2025 76 95% 10:13 02/17/2025 74 90% 10:08 02/17/2025 74 96% 10:03 02/17/2025 120/43 58 73 10:03 02/17/2025 73 96% 09:58 02/17/2025 72 97% 2 of 3 Vitals Measured Time BP MAP HR RR O2Sat ETCO2 Temp Pain GCS RTS 09:53 02/17/2025 72 100% 09:49 02/17/2025 141/54 68 75 09:48 02/17/2025 77 100% 09:33 02/17/2025 123/41 70 72 09:33 02/17/2025 73 97% 09:28 02/17/2025 0% 09:23 02/17/2025 0% 09:21 02/17/2025 121/51 69 72 07:25 02/17/2025 103/47 66 72 18 97% 97.1 F 6 3 of 3 Normal [facility] HIP COMPLETE RT MIN 2 VIEWS W/PELVISon 02-17-2025 HIP COMPLETE RT MIN 2 VIEWS W/PELVIS [place] [address] Patient: MARCOS SHELTON Phone#: : 1950 Age: 74 Gender: F Pt. Type: ER Account: [id number] Location: [facility] Ordering: RUFUS TORRES Exam Date: 02/17/2025/8:00 Family Phys: BELL MAHER Charge Code: [id number] Physician: [place] Order #: [id number] Dose#: PROCEDURE: X-RAY HIP RT COMPLETE MIN 2 VIEWS COMPARISON: None. INDICATIONS: Hip injury. FINDINGS: BONES: There has been internal fixation the right. There is no evidence of acute abnormality. SOFT TISSUES: Negative. No visible soft tissue swelling. EFFUSION: None visible. OTHER: Negative. CONCLUSION: 1. There is no evidence of acute bone abnormality. Dictated by: Elizabeth Tariq MD on 02/17/2025 at 8:39 Approved by: Elizabeth Tariq MD on 02/17/2025 at 8:40 Normal [facility] HISTORY PHYSICALon HISTORY PHYSICAL HNO ID: [id number] Author: TRENA WEINSTEIN MD Service: Hospital Medicine Author Type: Physician Type: H&P Filed: 02/17/2025 16:45 Note Text: HISTORY AND PHYSICAL EXAMINATION SERVICE DATE: 02/17/2025 SERVICE TIME: 4 PM PRIMARY CARE PHYSICIAN: Bell Maher MD Subjective CHIEF COMPLAINT: Fall HPI: This is a 74 year old female with past medical history of COPD, ESRD on hemodialysis MWF, CHF, CAD status post PCI 2005, PVD status post bilateral common iliac artery stents 2010, hypertension, hyperlipidemia, hypothyroidism, seizures on Keppra was transferred from [facility] to [facility] on 02/17 after having a fall. History obtained from patient. She was walking to her bathroom this morning and as soon as she took out her pants, she had a fall due to weakness. She did not hit her head, she did not lose consciousness. She did not feel dizzy before or after the fall. Patient has frequent falls twice every month. Patient denies having headache, chest pain, abdominal pain, nausea and vomiting. Last dialysis was Wednesday. Patient saw her PCP yesterday due to left leg wound and is on Bactrim and ciprofloxacin for past 3 weeks. FUNCTIONAL STATUS: Independent PAST MEDICAL HISTORY Diagnosis Date Abdominal pain, right upper quadrant Acid reflux Anemia associated with chronic renal failure 01/02/2020 Asthma Callaway's esophagus CAD (coronary artery disease) Constipation Diverticulitis Early satiety Essential hypertension, benign Fatigue Heart disease Hemorrhoids Hyperparathyroidism (HCC) Loss of weight Mitral valve disorders(424.0) with prolapse, needs abx prophylaxis Other and unspecified hyperlipidemia PVD (peripheral vascular disease) (HCC) Rheumatoid arthritis(714.0) Seizure (HCC) Wound dehiscence PAST SURGICAL HISTORY Procedure Laterality Date APPENDECTOMY BACK SURGERY HX 2009 lami and fusion L45 for spondylolisthesis BACK SURGERY HX 10/2020 CC PTCA STENT 2007, 2009 COLONOS W/REM POLYP SNARE 09/05/2009 repeat in EXCIS BREAST LESION rt PAST SURGICAL HISTORY OF Left foot PAST SURGICAL HISTORY OF Right shoulder PAST SURGICAL HISTORY OF Right hip surgery REVASCULARIZATION ILIAC ART ANGIOP EA IPSI VSL bilateral REVISE MEDIAN N/CARPAL TUNNEL SURG x 2 Carpal tunnel decomp TOTAL ABDOM HYSTERECTOMY Hysterectomy, AMALIA FAMILY HISTORY Problem Relation Age of Onset Cancer Mother lung Heart Mother Hypertension Father Heart Father Prostate Cancer Father Diabetes Brother Diabetes Paternal Grandmother Hypertension Paternal Grandmother Social History Tobacco Use Smoking status: Former Current packs/day: 0.00 Average packs/day: 1 pack/day for 10.0 years (10.0 ttl pk-yrs) Types: Cigarettes Start date: 07/09/1987 Quit date: 07/09/1997 Years since quittin.6 Smokeless tobacco: Never Vaping Use Vaping status: Never Used Substance Use Topics Alcohol use: No Drug use: No Prior to Admission Medications Prescriptions Last Dose Informant Patient Reported? Taking? ALBUTEROL 90 MCG/ACTUATION AEROSOL INHALER Yes Yes Sig: Inhale 1-2 Puffs as instructed every 4 hours as needed. SHAKE WELL BEFORE USING DAPTOmycin (CUBICIN) 350 mg injection Yes No Sig: Inject 350 mg intravenously every 48 hours. Multivitamin with Iron-Mineral tab No No Sig: Take 1 tablet by mouth once daily. NITROGLYCERIN 0.4 MG SUBLINGUAL TAB Yes No Sig: Dissolve under the tongue every 5 minutes as needed. Usual dose for angina is 1 tablet every 5 minutes for maximum of 3 doses in 15 minutes. VITAMIN B-6 100 mg tablet No No Sig: take 1 tablet by mouth once daily Patient not taking: Reported on 04/20/2023 albuterol (PROVENTIL) 2.5 mg /3 mL (0.083 %) nebulizer solution Yes No Sig: Use 2.5 mg via nebulizer one time only. aspirin, enteric coated (ASPIRIN, ENTERIC COATED) 81 mg EC tablet Yes No Sig: q 24 HR. calcitriol (ROCALTROL) 0.25 mcg capsule Yes No Sig: Take 0.25 mcg by mouth once daily. cholecalciferol (VITAMIN D-3) 5,000 unit tab Yes Yes Sig: Take 5,000 Units by mouth once daily. clopidogrel (PLAVIX) 75 mg tablet Yes Yes Sig: Take 75 mg by mouth once daily. cyanocobalamin, vitamin B-12, (VITAMIN B-12 INJECTION) Yes No Sig: by INJECTION(UNSPECIFIED PARENTERAL ROUTES) route once every month. cyclobenzaprine (FLEXERIL) 10 mg tablet Yes No Sig: Take 10 mg by mouth three times daily. evolocumab (REPATHA SURECLICK) 140 mg/mL pen injector Yes No Sig: Inject 140 mg subcutaneously every 2 weeks. folic acid/vit B complex and C (NEPHRO-JOSE ORAL) Yes No Sig: Take by mouth. furosemide (LASIX) 40 mg tablet Yes No Sig: Take 40 mg by mouth. Wednesday, Wednesday and Wednesday hydrOXYzine HCl (ATARAX) 25 mg tablet Yes No Sig: Take 25 mg by mouth every 6 hours as needed. levETIRAcetam (KEPPRA) 500 mg tablet Yes No Sig: Take 500 mg by mouth twice daily. levothyroxine (SYNTHROID) 75 mcg tablet Yes No Sig: Take 75 mcg by (more content not included)... Normal [facility] TROPONIN I, HIGH SENSITIVITY on 02-17-2025 HS TROPONIN 15.1 pg/mL Normal 0.0 - 51.4 [facility] Comment on above: Performed By: #### 2 [id number] #### [facility],[address] [place] [address] No Panel Informationon 02-14 Culture Wound Aerobe No growth at 48 hours. [facility] Work Phone: GS No organisms seen. [facility] Work Phone: IFESon 02-06-2025 IFES Interpretation Immunofixation electrophoresis of serum shows the presence of only polyclonal immunoglobulins (IgG,A,M,[place] and Lambda), No monoclonal protein detected. [facility] Comment on above: Result Comment: Elec tronically Signed by: ZE RESENDIZ 02/06/2025 14:33 EDT Performed By: #### G FR, CBC, ADIFF, CMP, ANEU #### [address] [address] SPEon 02-06-2025 SPE Interpretation Normal serum protein electrophoresis pattern. No abnormality detected. [facility] Comment on above: Result Comment: Elec tronically Signed by: ZE RESENDIZ 02/06/2025 14:32 EDT Performed By: #### G FR, CBC, ADIFF, CMP, ANEU #### [address] [address] Albumin 3.4 G/dL Normal 3.3-5.0 [facility] Comment on above: Performed By: #### G FR, CBC, ADIFF, CMP, ANEU #### [address] [address] Alpha 1 0.3 G/dL Normal 0.1-0.4 [facility] Comment on above: Performed By: #### G FR, CBC, ADIFF, CMP, ANEU #### [address] [address] Alpha 2 1.2 G/dL Normal 0.6-1.2 [facility] Comment on above: Performed By: #### G FR, CBC, ADIFF, CMP, ANEU #### [address] [address] Beta 1.3 G/dL Normal 0.6-1.3 [facility] Comment on above: Performed By: #### G FR, CBC, ADIFF, CMP, ANEU #### [place] [address] Gamma 1.0 G/dL Normal 0.7-1.6 [facility] Comment on above: Performed By: #### G FR, CBC, ADIFF, CMP, ANEU #### [address] [address] .Auto Diffon 02-05-2025 Basophil, Absolute 0.1 10 3/mcL Normal 0.0-0.3 [facility] Comment on above: Performed By: #### G FR, CBC, ADIFF, CMP, ANEU #### [address] [address] Basophils/100 WBC (Bld) 1.1 % Normal 0.0-2.5 [facility] Comment on above: Performed By: #### G FR, CBC, ADIFF, CMP, ANEU #### [address] [address] Eosinophil, Absolute 0.2 10 3/mcL Normal 0.0-0.7 [facility] Comment on above: Performed By: #### G FR, CBC, ADIFF, CMP, ANEU #### [facility] [address] [place], [place] [address] Eosinophils/100 WBC (Bld) 1.8 % Normal 0.0-6.0 [facility] Comment on above: Performed By: #### G FR, CBC, ADIFF, CMP, ANEU #### [address] [address] Lymphocyte, Absolute 1.4 10 3/mcL Normal 0.9-4.3 [facility] Comment on above: Performed By: #### G FR, CBC, ADIFF, CMP, ANEU #### [address] [address] Lymphocytes/100 WBC (Bld) 14.2 % Low 20.0-40.0 [facility] Comment on above: Performed By: #### G FR, CBC, ADIFF, CMP, ANEU #### [address] [address] Monocyte, Absolute 0.6 10 3/mcL Normal 0.1-1.4 [facility] Comment on above: Performed By: #### G FR, CBC, ADIFF, CMP, ANEU #### [address] [address] Monocytes/100 WBC (Bld) 6.3 % Normal 2.0-13.0 [facility] Comment on above: Performed By: #### G FR, CBC, ADIFF, CMP, ANEU #### [address] [address] Neutrophils/100 WBC (Bld) 76.6 % High 50.0-75.0 [facility] Comment on above: Performed By: #### G FR, CBC, ADIFF, CMP, ANEU #### [address] [address] .Morphon 02-05-2025 Anisocytosis Ql (Bld) 1+ Normal [facility] Comment on above: Performed By: #### G FR, CBC, ADIFF, CMP, ANEU #### [address] [address] Macrocytosis 1+ Normal [facility] Comment on above: Performed By: #### G FR, CBC, ADIFF, CMP, ANEU #### [place] [id number] Platelet Estimate Normal Normal [facility] Comment on above: Performed By: #### G FR, CBC, ADIFF, CMP, ANEU #### [address] [address] .NEUABSon 02-05-2025 Neutrophil, Absolute 7.3 10 3/mcL Normal 2.3-8.1 [facility] Comment on above: Performed By: #### G FR, CBC, ADIFF, CMP, ANEU #### [place] [address] CBCon 02-05-2025 Erythrocyte distribution width (RBC) [Ratio] 19.3 % High 11.5-15.5 [facility] Comment on above: Performed By: #### G FR, CBC, ADIFF, CMP, ANEU #### [place] [address] Hematocrit (Bld) [Volume fraction] 31.9 % Low 34.0-46.0 [facility] Comment on above: Performed By: #### G FR, CBC, ADIFF, CMP, ANEU #### [place] [address] Hgb 10.5 G/dL Low 12.0-16.0 [facility] Comment on above: Performed By: #### G FR, CBC, ADIFF, CMP, ANEU #### [place] [address] MCH (RBC) [Entitic mass] 34.1 pg High 27.0-33.0 [facility] Comment on above: Performed By: #### G FR, CBC, ADIFF, CMP, ANEU #### [place] [address] MCHC 33.0 G/dL Normal 32.0-36.0 [facility] Comment on above: Performed By: #### G FR, CBC, ADIFF, CMP, ANEU #### [place] [address] MCV (RBC) [Entitic vol] 103.3 fL High 80.0-99.0 [facility] Comment on above: Performed By: #### G FR, CBC, ADIFF, CMP, ANEU #### [place] [address] Platelet 280 10 3/mcL Normal 150-450 [facility] Comment on above: Performed By: #### G FR, CBC, ADIFF, CMP, ANEU #### [place] [address] Platelet mean volume (Bld) [Entitic vol] 8.3 fL Normal 6.6-10.5 [facility] Comment on above: Performed By: #### G FR, CBC, ADIFF, CMP, ANEU #### [place] [address] RBC 3.09 10 6/mcL Low 4.10-5.30 [facility] Comment on above: Performed By: #### G FR, CBC, ADIFF, CMP, ANEU #### [place] [address] WBC 9.6 10 3/mcL Normal 4.5-10.8 [facility] Comment on above: Performed By: #### G FR, CBC, ADIFF, CMP, ANEU #### [place] [address] FESon 02-05-2025 Iron [Mass/Vol] 65 ug/dL Normal 50-170 [facility] Comment on above: Performed By: #### G FR, CBC, ADIFF, CMP, ANEU #### [place] [address] Iron Sat 26 % Normal [facility] Comment on above: Performed By: #### G FR, CBC, ADIFF, CMP, ANEU #### [place] [address] TIBC 253 mcg/dL Normal 250-500 [facility] Comment on above: Performed By: #### G FR, CBC, ADIFF, CMP, ANEU #### [place] [address] HAPTOon 02-05-2025 Haptoglobin 330 mg/dL High 40-280 [facility] Comment on above: Performed By: #### S PE, MORPH, ANEU, ADIFF, IFES, FES, CBC, HAPTO ####[place] [address] LABORATORYOrdered By: SYSTEM SYSTEM on 02-05-2025 Anisocytosis Ql (Bld) 1+ *NA* (02/05/25 10:46 AM) Invalid Interpretation Code AH Workflow SS Basophils (Bld) [#/Vol] 0.1 103/mcL Normal 0.0 - 0.3 10^3/mcL AH Workflow SS Basophils/100 WBC (Bld) 1.1 % Normal 0.0 - 2.5 % AH Workflow SS Eosinophils (Bld) [#/Vol] 0.2 103/mcL Normal 0.0 - 0.7 10^3/mcL AH Workflow SS Eosinophils/100 WBC (Bld) 1.8 % Normal 0.0 - 6.0 % AH Workflow SS Erythrocyte distribution width (RBC) [Ratio] 19.3 % High 11.5 - 15.5 % AH Workflow SS Haptoglobin [Mass/Vol] 330 mg/dL High 40 - 280 mg/dL AH ADM SS Hematocrit (Bld) [Volume fraction] 31.9 % Low 34.0 - 46.0 % AH Workflow SS Hemoglobin (Bld) [Mass/Vol] 10.5 G/dL Low 12.0 - 16.0 G/dL AH Workflow SS Iron [Mass/Vol] 65 ug/dL Normal 50 - 170 mcg/dL AH ADM SS Iron binding capacity [Mass/Vol] 253 mcg/dL Normal 250 - 500 mcg/dL AH ADM SS Iron saturation [Mass fraction] 26 % Invalid Interpretation Code AH ADM SS Lymphocytes (Bld) [#/Vol] 1.4 103/mcL Normal 0.9 - 4.3 10^3/mcL AH Workflow SS Lymphocytes/100 WBC (Bld) 14.2 % Low 20.0 - 40.0 % AH Workflow SS Macrocytes Ql (Bld) 1+ *NA* (02/05/25 10:46 AM) Invalid Interpretation Code AH Workflow SS MCH (RBC) [Entitic mass] 34.1 pg High 27.0 - 33.0 pg AH Workflow SS MCHC 33.0 G/dL Normal 32.0 - 36.0 G/dL AH Workflow SS MCV (RBC) [Entitic vol] 103.3 fL High 80.0 - 99.0 fL AH Workflow SS Monocytes (Bld) [#/Vol] 0.6 103/mcL Normal 0.1 - 1.4 10^3/mcL AH Workflow SS Monocytes/100 WBC (Bld) 6.3 % Normal 2.0 - 13.0 % AH Workflow SS Neutrophils (Bld) [#/Vol] 7.3 103/mcL Normal 2.3 - 8.1 10^3/mcL AH Workflow SS Neutrophils/100 WBC (Bld) 76.6 % High 50.0 - 75.0 % AH Workflow SS Platelet mean volume (Bld) [Entitic vol] 8.3 fL Normal 6.6 - 10.5 fL AH Workflow SS Platelets (Bld) [#/Vol] 280 103/mcL Normal 150 - 450 10^3/mcL Workflow SS Platelets LM Ql (Bld) Normal *NA* (02/05/25 10:46 AM) Invalid Interpretation Code AH Workflow SS RBC (Bld) [#/Vol] 3.09 106/mcL Low 4.10 - 5.3 0 10^6/mcL Workflow SS WBC (Bld) [#/Vol] 9.6 103/mcL Normal 4.5 - 10.8 10^3/mcL Workflow SS LABORATORYOrdered By: Leidy Martinez on 02-05-2025 Protein [Mass/Vol] 7.2 G/dL Normal 5.7 - 8.2 G/dL ADM SS SPEon 02-05-2025 Total Protein 7.2 G/dL Normal 5.7-8.2 [facility] Comment on above: Performed By: #### G FR, CBC, ADIFF, CMP, ANEU #### [place] [address] ED MED ADMINISTRATION DETAIL on 01-17-2025 ED MED ADMINISTRATION DETAIL [employer] Operator Medication Administration Record [address] [address] [id number] 01/05/2025 Patient: MARCOS SHELTON Sex: Female : 1950 Age: 74y MEASUREMENTS: Wt: 81.6 kg, Ht/Gustavo: 64.0 in, BMI: 30.90 ALLERGIES: Macrodantin, Penicillins, WelChol Medication Ordered Medication Administration Date/Time HYDROcodone-acet 00:16 01/06 HYDROcodone-acet (Vicodin/[place]) PO 5 mg-325 mg Given (Vicodin/[place]) PO 1 tab given. Allergies verified and confirmed 5 rights. Information 00:16 01/06/2025 5 mg-325 mg 1 tab reviewed with patient including reason for taking this medication. Cecilia Tobias R.N. (NOW x1, HIGH Verbalizes understanding. (8 chronic back pain). - 00:17 Scanned ALERT Cecilia Tobias R.N. MEDICATION) 1 of 1 Normal [facility] ED NURSES CLINICAL NOTEon ED NURSES CLINICAL NOTE Nurse Narrative Nurse Clinical Narrative [address] [address] [id number] 01/05/2025 16:00:00 Patient: MARCOS SHELTON Sex: Female : 1950 Age: 74y Disposition: Transfer to [facility] Disposition Decision Time: 19:07 01/05/2025 Departure Time: 03:00 01/06/2025 TRIAGE Historian: (patient). Primary physician (Dr. Maher). Triage time: 15:58 01/05/2025. Acuity: LEVEL 2. Chief Complaint: SHORTNESS OF BREATH and (had abnormal blood work and was told to come to ER). Alert. No acute distress. SEPSIS SCREEN: NEGATIVE. SIRS criteria negative. No possible sources of infection. -- 16:16 01/05/25 EDT Keisha Bang R.N. 16:15 01/05/25. BP: 132/65 MAP: 87. HR: 100. RR: 20. O2 saturation: 97% Pain level now 12/30. -- 16:20 01/05/25 EDT Keisha Bang R.N. 16:18 01/05/25. HR: 105 bpm. O2 saturation: 100%. -- 16:20 01/05/25 EDT Keisha Bang R.N. Measurements: 16:13 01/05/25 Wt: 81.6 kg, Ht/Gustavo: 64.0 in, BMI: 30.90 -- 16:13 01/05/25 EDT Keisha Bang R.N. Medications: cephalexin 500 mg capsule -- 16:01/05/25 EDT Keisha Bang R.N. montelukast 10 mg tablet -- 16:01/05/25 EDT Keisha Bang R.N. levetiracetam 500 mg tablet -- 16:01/05/25 EDT Keisha Bang R.N. 1 of 6 Nurse Narrative Linzess 290 mcg capsule -- 16:01/05/25 EDT Keisha Bang R.N. clopidogrel 75 mg tablet -- 16:01/05/25 EDT Keisha Bang R.N. hydrocodone 5 mg-acetaminophen 325 mg tablet -- 16:01/05/25 EDT Keisha Bang R.N. metoprolol succinate ER 25 mg tablet,extended release 24 hr -- 16:01/05/25 EDT Keisha Bang R.N. ranolazine ER 500 mg tablet,extended release,12 hr -- 16:01/05/25 EDT Keisha Bang R.N. hydroxyzine HCl 25 mg tablet -- 16:01/05/25 EDT Keisha Bang R.N. duloxetine 30 mg capsule,delayed release -- 16:01/05/25 EDT Keisha Bang R.N. levothyroxine 50 mcg tablet -- 16:01/05/25 EDT Keisha Bang R.N. rosuvastatin 40 mg tablet -- 16:01/05/25 EDT Keisha Bang R.N. omeprazole 40 mg capsule,delayed release -- 16:01/05/25 EDT Keisha Bang R.N. furosemide 40 mg tablet -- 16:01/05/25 EDT Keisha Bang R.N. albuterol sulfate HFA 90 mcg/actuation aerosol inhaler -- 16:01/05/25 EDT Keisha Bang R.N. Allergies: Penicillins -- 16:01/05/25 EDT Keisha Bang R.N. Macrodantin -- 16:01/05/25 EDT Keisha Bang R.N. WelChol -- 16:05 01/05/25 EDT Keisha Bang R.N. Problems: Coronary Artery Disease -- 16:04 01/05/25 EDT Keisha Bang R.N. Chronic kidney disease stage 5 -- 16:09 01/05/25 EDT Keisha Bang R.N. Hypertension -- 16:11 01/05/25 ANDREST Keisha Bang R.N. Surgeries: Cardiac Catheterization. x5 stents -- 16:04 01/05/25 EDT Keisha Bang R.N. fistula rt arm -- 16:10 01/05/25 ANDREST Keisha Bang R.N. Back Surgery -- 16:11 01/05/25 EDT Keisha Bang R.N. Hysterectomy -- 16:11 01/05/25 EDT Keisha Bang R.N. History 15:58 01/05/25. SOCIAL HX: Former smoker, end date 1996. No alcohol use or drug use. The patient has not traveled outside the [place] Infectious disease exposure: No infectious disease exposure. 2 of 6 Nurse Narrative ABUSE ASSESSMENT: The patient answered yes to the question(s) Do you feel safe in your home? and no to the question(s) Are you afraid to go home?. SELF HARM ASSESSMENT: Self harm assessment was performed. The patient answered no to the question(s) Have you recently felt down, depressed, or hopeless? and Do you have thoughts of harming or killing yourself?. NUTRITIONAL RISK ASSESSMENT: The nutritional risk assessment revealed no deficiencies. FUNCTIONAL ASSESSMENT: Functional assessment: no impairments noted. LEARNING NEEDS ASSESSMENT: The learning needs assessment revealed no barriers. FALL RISK ASSESSMENT: Fall risk assessment completed. No risk factors identified. SKIN INTEGRITY ASSESSMENT: Skin integrity risk assessment completed. No skin integrity risk identified. -- 16:16 01/05/25 ANDREST Keisha Bang R.N. Interventions 15:58 01/05/25. Identification band on patient. Advanced care plan. Patient does not have advanced directive. -- 16:16 01/05/25 PHUC Bang R.N. PHYSICAL ASSESSMENT 17:19 01/05/25. Ambulatory to room. ( Patient denies symptoms, states that she was told by her doctors office to report to the nearest ER due to abnormal labs.). GENERAL / NEURO / PSYCH: Alert. Oriented X 4. Appears in no acute distress. HEENT: Mucous membranes are pink. RESPIRATORY: No respiratory distress. Respirations not labored. Chest nontender. Breath sounds within normal limits. CVS: Normal sinus rhythm noted. Capillary refill less than 2 seconds. GI / : Abdomen soft and nontender. Bowel sounds within normal limits. SKIN: Skin is warm and dry. Normal skin turgor. -- 17:19 01/05 (more content not included)... Normal [facility] ED ORDER SHEET (CPOE ONLY)on 01-17-2025 ED ORDER SHEET (CPOE ONLY) Order Sheet Order Sheet [address] [place] [address] [id number] 01/05/2025 Patient: MARCOS SHELTON Sex: Female : 1950 Age: 74y MEASUREMENTS: Wt: 81.6 kg, Ht/Gustavo: 64.0 in, BMI: 30.90 ALLERGIES: Macrodantin, Penicillins, WelChol MEDICATION/IV/DRIP/FLUID ORDERS Order Description Priority Entered Acknowledged Completed HYDROcodone-acet 00:05 01/06/2025 00:16 00:17 (Vicodin/[place]) PO 5 mg-325 Ye Nunez D.O. 01/06/2025 01/06/2025 mg1 tab (NOW x1, HIGH ALERT Cecilia Tompkins, MEDICATION) R.N. R.N. LAB ORDERS Order Description Priority Entered Acknowledged Collected Completed CBC w Diff Stat Stat 16:19 01/05/2025 16:21 01/05/2025 16:25 01/05/2025 Charli Orlando Bryan Parker, D.O. R.N. E.M.T.-P. CMP Stat Stat 16:19 01/05/2025 16:21 01/05/2025 16:25 01/05/2025 Charli Orlando Bryan Parker, D.O. R.N. E.M.T.-P. EKG - ED Stat Stat 16:19 01/05/2025 16:21 01/05/2025 16:25 01/05/2025 Charli Orlando Bryan Parker, 1 of 3 Order Sheet D.O. R.N. E.M.T.-P. Troponin-I Protocol Stat 16:19 01/05/2025 16:21 01/05/2025 16:25 01/05/2025 (STAT 1hr) (Sched: q1h Charli Orlando Bryan Parker, X2); Stat 1 of 2 D.O. R.N. E.M.T.-P. Troponin-I Protocol Stat 16:19 01/05/2025 17:30 01/05/2025 17:30 01/05/2025 (STAT 1hr) (Sched: q1h Burton Orlando, Burton Nichols, X2); Stat 2 of 2 D.O. E.M.T.-P. E.M.T.-P. BNP Stat Stat 16:27 01/05/2025 16:33 01/05/2025 16:33 01/05/2025 Charli Orlando Joel Edinger, D.O. R.N. R.N. Blood Culture Stat 17:00 01/05/2025 17:01 01/05/2025 17:13 01/05/2025 [Nish] # 1 Stat Bren Ambriz Bryan Parker, R.N. E.M.T.-P. Blood Culture Stat 17:00 01/05/2025 17:01 01/05/2025 17:30 01/05/2025 [Nish] # 2 Stat Bren Ambriz Bryan Parker, R.N. E.M.T.-P. TSH Stat Stat 17:02 01/05/2025 17:03 01/05/2025 17:06 01/05/2025 Bren Ambriz Bryan Parker, R.N. E.M.T.-P. Urinalysis Stat Stat 17:03 01/05/2025 17:30 01/05/2025 02:17 01/06/2025 Bren Ambriz Charles Wilbur, E.M.T.-PDarvin RJimena Culture Wound Stat 17:18 01/05/2025 17:30 01/05/2025 17:30 01/05/2025 [NISH] Stat Bren Ambriz Bryan Parker, E.M.T.-PDarvin MarquezT.-PDarvin 2 of 3 Order Sheet DIAGNOSTIC STUDY ORDERS Order Description Priority Entered Acknowledged Completed Chest 1V Stat Stat 16:19 01/05/2025 16:21 16:33 Rufus Torres, 01/05/2025 01/05/2025 Charli Wright R.N. RJimena Order Comments: 16:19 01/05/2025: Status: Not . Rufus Torres D.O. Reason for Study: Chest Pain STAFF ORDERS Order Description Priority Entered Acknowledged Collected Completed IV Saline Lock 16:19 01/05/2025 16:21 01/05/2025 16:25 01/05/2025 Charli Orlando Bryan Parker, D.O. R.N. E.MDarvinT.-P. Oriental Rug Repairer 16:19 01/05/2025 16:21 01/05/2025 16:25 01/05/2025 Charli Orlando Bryan Parker, D.O. R.N. E.MDarvinT.-P. Oxygen titrate to 92% 16:19 01/05/2025 16:21 01/05/2025 16:25 01/05/2025 Charli Orlando Bryan Parker, D.O. R.N. E.M.T.-P. Pulse Oximeter 16:19 01/05/2025 16:21 01/05/2025 16:25 01/05/2025 Charli Orlando Bryan Parker, D.O. R.N. E.MDarvinT.-P. [Electronically signed by Ye Nunez D.O. (01/06/2025 03:13 EDT)] [Electronically signed by Rufus Torres D.O. (01/08/2025 23:31 EDT)] 3 of 3 Normal [facility] ED PHYSICIAN CLINICAL REPORT on 01-17-2025 ED PHYSICIAN CLINICAL REPORT Narrative Physician Clinical Narrative [facility] [address] [facility] [place] [address] [id number] 01/05/2025 16:00:00 Patient: MARCOS SHELTON Sex: Female : 1950 Age: 74y Disposition: Transfer to [facility] Disposition Decision Time: 19:07 01/05/2025 Departure Time: 03:00 01/06/2025 Measurements Wt: 81.6 kg, Ht/Gustavo: 64.0 in, BMI: 30.90 Initial Vital Sign Measured Time BP MAP HR RR O2Sat ETCO2 Temp Pain GCS RTS 16:15 01/05/2025 132/65 87 100 20 97% 97.0 F 5 Time Seen: 16:08 01/05/2025. Arrived- By private vehicle. Historian- patient. Independent historian- family. HISTORY OF PRESENT ILLNESS Chief Complaint: CHEST PAIN. This started yesterday patient came in complaining of chest discomfort she had yesterday was not really pain she describes as more discomfort she called her doctor and she had elevated troponin and BNP and they were concerned and had her come to the emergency department. and is now gone. No nausea. REVIEW OF SYSTEMS NEUROLOGICAL: No fainting episodes. THROAT: No sore throat. EYES: No blurred vision. CONSTITUTIONAL: No fever or chills. Status: Not . 1 of 17 Narrative PAST HISTORY See nurses notes. Chronic kidney disease stage 5 Coronary Artery Disease Hypertension Surgeries: Back Surgery Cardiac Catheterization: Body Site x5 stents fistula rt arm Hysterectomy Medications: albuterol sulfate HFA 90 mcg/actuation aerosol inhaler cephalexin 500 mg capsule clopidogrel 75 mg tablet duloxetine 30 mg capsule,delayed release furosemide 40 mg tablet hydrocodone 5 mg-acetaminophen 325 mg tablet hydroxyzine HCl 25 mg tablet levetiracetam 500 mg tablet levothyroxine 50 mcg tablet Linzess 290 mcg capsule metoprolol succinate ER 25 mg tablet,extended release 24 hr montelukast 10 mg tablet omeprazole 40 mg capsule,delayed release ranolazine ER 500 mg tablet,extended release,12 hr rosuvastatin 40 mg tablet Allergies: Macrodantin Penicillins WelChol SOCIAL HISTORY 2 of 17 Narrative Former smoker. No alcohol use. ADDITIONAL NOTES The nursing notes have been reviewed. PHYSICAL EXAM Appearance: Alert. Oriented X3. No acute distress. Eyes: Pupils equal, round and reactive to light. Eyes normal inspection. ENT: Ears normal. Nose normal. Neck: Normal inspection. CVS: Normal heart rate. Heart sounds normal. Respiratory: No respiratory distress. Breath sounds normal. Chest nontender. Abdomen: Soft and nontender. Skin: Skin warm and dry. Normal skin color. Normal skin turgor. Extremities: Extremities exhibit normal ROM. No lower extremity edema. Neuro: Oriented X 3. No motor deficit. LABS, X-RAYS, AND EKG 12-LEAD EKG: EKG time: 16:04 01/05/2025. No acute process. Rate: 100. Normal axis. Normal QTc. Prolonged QT. The study has been interpreted contemporaneously by me. Interpretation time: 16:01/05/2025. PROGRESS AND PROCEDURES Disposition: Condition: stable. (Electronically signed by Rufus Torres D.O. 01/08/25 23:31:20 EDT) Addenda Lab results taken for positive wound culture. Follow up formed filled out and given to Dr. Torres. -- 01/12/25 14:48:31 EDT Jie Santiago R.N. Lab results discussed and reviewed with patient. did discuss this with the patient. Did tell her she is on MRSA she is going to follow up with her doctor this week. -- 01/17/25 08:49:47 EDT Rufus Torres D.O. 3 of [address] [facility] Physician Clinical Narrative [address] [address] [id number] 01/05/2025 16:00:00 Patient: MARCOS SHELTON Sex: Female : 1950 Age: 74y Disposition: Transfer to [facility] Disposition Decision Time: 19:07 01/05/2025 Departure Time: 03:00 01/06/2025 Measurements Wt: 81.6 kg, Ht/Gustavo: 64.0 in, BMI: 30.90 Initial Vital Sign Measured Time BP MAP HR RR O2Sat ETCO2 Temp Pain GCS RTS 16:15 01/05/2025 132/65 87 100 20 97% 97.0 F 5 Time Seen: 16:28 01/05/2025. Arrived- By private vehicle. Historian- patient. Independent historian- family. HISTORY OF PRESENT ILLNESS Chief Complaint: CHEST PAIN. It is described as pressure and tightness and it is described as radiating to the right jaw and to the left jaw. This started yesterday and is now gone. At its maximum, severity described as 6 / 10. When seen in the E.D., severity described as 0 / 10. The patient has had difficulty breathing. Similar symptoms previously. None. Recent medical care: The patient was seen recently in the office. ( outpatient bnp and troponin drawn yesterday as outpatient. Results came back today elevated. Told to come to ER.). 4 of 17 Narrative REVIEW OF SYSTEMS : No difficulty with urina (more content not included)... Normal [facility] ED SUPER BILLon 01-17-2025 ED SUPER BILL [address] [address] [id number] 01/05/2025 Patient: MARCOS SHELTON Sex: Female : 1950 Age: 74y Professional Category Item Description Facility Code Code Quantity Fee Total Nurse/E/M EMERGENCY 758508 1 $0.00 $0.00 DEPT VISIT HIGH SEVERITYFUNCJ (88403-68) Grand Total $0.00 Providers Bren Orlando D.O. Chief Complaints CHEST PAIN. CHEST PAIN. Principal Diagnosis Chest pain characterized as pressure and tightness. Acute dyspnea. (Elevated troponin.). 1 of 2 [facility] ICD-10 Codes R07.89: Other chest pain R06.09: Other forms of dyspnea 2 of 2 Normal [facility] ED VISIT SUMMARYon ED VISIT SUMMARY Visit Overview Visit Overview [address] [address] [id number] 01/05/2025 Patient: MARCOS SHELTON Sex: Female : 1950 Age: 74y 01/17/2025 08:49 AM EDT ED Arrival:16:00 01/05/2025 EDT Status:not Recent Travel:no Language:eng Adv Directive:No Isolation Status: Ethnicity:N Fall Risk:no risk Infectious Disease Exposure:no Measurements:5'4 / 162.6 Self-Harm Status:risk Sepsis Screen:negative cm 180.0 lb / 81.6 kg Chief Complaint:SHORTNESS OF BREATH, (Dr. Maher), and (had abnormal blood work and was told to come to ER) ALLERGIES Macrodantin Penicillins WelChol HOME MEDICATIONS albuterol sulfate HFA 90 mcg/actuation aerosol inhaler cephalexin 500 mg capsule clopidogrel 75 mg tablet 1 of 4 Visit Overview duloxetine 30 mg capsule,delayed release furosemide 40 mg tablet hydrocodone 5 mg-acetaminophen 325 mg tablet hydroxyzine HCl 25 mg tablet levetiracetam 500 mg tablet levothyroxine 50 mcg tablet Linzess 290 mcg capsule metoprolol succinate ER 25 mg tablet,extended release 24 hr montelukast 10 mg tablet omeprazole 40 mg capsule,delayed release ranolazine ER 500 mg tablet,extended release,12 hr rosuvastatin 40 mg tablet PAST MEDICAL HISTORY / PROBLEMS Chronic kidney disease stage 5 Coronary Artery Disease Hypertension See nurses notes PAST SURGICAL HISTORY Back Surgery Cardiac Catheterization. x5 stents fistula rt arm Hysterectomy SOCIAL HISTORY Nutritional assessment: No deficits Functional assessment: No impairments Learning needs: No barriers Smoking status: No Alcohol use: No Drug use: No ED COURSE 2 of 4 Visit Overview MEDICATIONS GIVEN IN EMERGENCY DEPARTMENT 00:16 01/06/25 HYDROcodone-acet (Vicodin/[place]) PO 5 mg-325 mg 1 tab IV SITE INFORMATION 16:19 01/05/25 Site #1 left AC, 18g. Saline lock. INTAKE OUTPUT REASSESMENT (most recent) 00:57 01/06/25. ( pt moved to hopsital bed for improved comfort, while w/o [facility]). VITAL SIGNS First Vitals Last Vitals Temp 16:15 01/05/25 97.0 F Temp 02:48 01/06/25 BP 16:15 01/05/25 132/65 BP 02:48 01/06/25 HR 16:15 01/05/25 100 HR 02:48 01/06/25 93 RR 16:15 01/05/25 20 RR 02:48 01/06/25 O2 Sat 16:15 01/05/25 97% O2 Sat 02:48 01/06/25 92% Pain 16:15 01/05/25 5 Pain 02:48 01/06/25 ETCO2 16:15 01/05/25 ETCO2 02:48 01/06/25 GCS 16:15 01/05/25 GCS 02:48 01/06/25 RTS 16:15 01/05/25 RTS 02:48 01/06/25 PROCEDURES NURSING INTERVENTIONS LABS / STUDIES LABS / STUDIES ORDERED Blood Culture [Nish] # 1 Blood Culture [Nish] # 2 BNP CBC w Diff Chest 1V CMP Culture Wound [NISH] 3 of 4 Visit Overview EKG - ED Troponin-I Protocol (STAT 1hr) Troponin-I Protocol (STAT 1hr) TSH Urinalysis LABS - ABNORMAL RESULTS TROPONIN HS TROPONIN 139.3 pg/mL () , TROPONIN HS TROPONIN 127.7 pg/mL () LABS / STUDIES PENDING IMPORT CULTURE BLOOD [NISH] CULTURE BLOOD [NISH] CULTURE WOUND [NISH] CLINICAL IMPRESSION ACUTE DYSPNEA CHEST PAIN CHARACTERIZED PRESSURE AND TIGHTNESS 4 of 4 Normal [facility] ED VITALS FLOW SHEETon 01-17 ED VITALS FLOW SHEET Vitals Vital Sign Flow Sheet [address] [address] [id number] 01/05/2025 Patient: MARCOS SHELTON Sex: Female : 1950 Age: 74y Measurements Wt: 81.6 kg, Ht/Gustavo: 64.0 in, BMI: 30.90 Measured Time BP MAP HR RR O2Sat ETCO2 Temp Pain GCS RTS 02:48 01/06/2025 93 92% 02:43 01/06/2025 94 94% 02:38 01/06/2025 91 95% 02:33 01/06/2025 93 97% 02:29 01/06/2025 148/66 78 94 02:28 01/06/2025 92 100% 02:23 01/06/2025 93 100% 02:18 01/06/2025 96 99% 02:01/06/2025 93 99% 02:08 01/06/2025 94 98% 02:03 01/06/2025 94 99% 01:58 01/06/2025 94 98% 01:53 01/06/2025 87% 01:48 01/06/2025 97 100% 01:43 01/06/2025 101 99% 1 of 7 Vitals Measured Time BP MAP HR RR O2Sat ETCO2 Temp Pain GCS RTS 01:38 01/06/2025 99 97% 01:33 01/06/2025 106 98% 01:23 01/06/2025 97 98% 01:18 01/06/2025 99 97% 01:01/06/2025 97 98% 01:08 01/06/2025 92 98% 01:03 01/06/2025 93 98% 00:58 01/06/2025 94 97% 00:53 01/06/2025 96 99% 00:48 01/06/2025 95 98% 00:38 01/06/2025 92 98% 00:33 01/06/2025 93 95% 00:28 01/06/2025 117/49 66 96 00:01/06/2025 90 95% 00:01/06/2025 93 96% 00:18 01/06/2025 95 97% 00:14 01/06/2025 123/52 75 94 00:01/06/2025 95 96% 00:08 01/06/2025 95 96% 00:03 01/06/2025 97 97% 23:59 01/05/2025 118/77 84 102 23:58 01/05/2025 99 98% 23:53 01/05/2025 90 98% 23:48 01/05/2025 92 98% 23:44 01/05/2025 124/67 86 91 2 of 7 Vitals Measured Time BP MAP HR RR O2Sat ETCO2 Temp Pain GCS RTS 23:43 01/05/2025 91 96% 23:38 01/05/2025 93 97% 23:33 01/05/2025 93 97% 23:29 01/05/2025 114/55 74 93 23:28 01/05/2025 92 97% 23:23 01/05/2025 94 98% 23:18 01/05/2025 94 97% 23:14 01/05/2025 113/92 98 99 23:13 01/05/2025 94 98% 23:08 01/05/2025 94 99% 23:03 01/05/2025 92 97% 22:59 01/05/2025 134/46 69 91 22:58 01/05/2025 91 98% 22:53 01/05/2025 92 98% 22:48 01/05/2025 94 98% 22:44 01/05/2025 128/55 79 107 22:43 01/05/2025 117 96% 22:38 01/05/2025 100 97% 22:33 01/05/2025 90 98% 22:29 01/05/2025 119/56 77 88 22:28 01/05/2025 91 99% 22:23 01/05/2025 94 96% 22:18 01/05/2025 90 99% 22:14 01/05/2025 131/61 84 89 22:13 01/05/2025 90 98% 3 of 7 Vitals Measured Time BP MAP HR RR O2Sat ETCO2 Temp Pain GCS RTS 22:08 01/05/2025 96 99% 22:03 01/05/2025 101 99% 22:01 01/05/2025 130/65 86 94 21:59 01/05/2025 73/58 63 98 21:58 01/05/2025 94 100% 21:53 01/05/2025 106 98% 21:48 01/05/2025 111 93% 21:44 01/05/2025 132/114 116 115 21:43 01/05/2025 99 98% 21:38 01/05/2025 96 97% 21:33 01/05/2025 88 98% 21:29 01/05/2025 137/84 101 88 21:28 01/05/2025 89 99% 21:23 01/05/2025 85 99% 21:18 01/05/2025 85 97% 21:14 01/05/2025 137/52 73 84 21:13 01/05/2025 86 98% 21:08 01/05/2025 85 99% 21:03 01/05/2025 88 97% 20:59 01/05/2025 134/55 78 85 20:58 01/05/2025 87 99% 20:53 01/05/2025 84 99% 20:48 01/05/2025 89 99% 20:44 01/05/2025 137/65 74 100 20:43 01/05/2025 92 99% 4 of 7 Vitals Measured Time BP MAP HR RR O2Sat ETCO2 Temp Pain GCS RTS 20:38 01/05/2025 89 97% 20:33 01/05/2025 90 96% 20:29 01/05/2025 135/56 82 86 20:28 01/05/2025 88 99% 20:23 01/05/2025 90 97% 20:18 01/05/2025 90 98% 20:14 01/05/2025 127/48 90 89 20:13 01/05/2025 89 98% 20:08 01/05/2025 91 98% 20:03 01/05/2025 94 99% 19:59 01/05/2025 129/87 97 94 19:58 01/05/2025 96 94% 19:44 01/05/2025 150/66 74 100 19:29 01/05/2025 147/64 78 101 19:18 01/05/2025 96 99% 19:14 01/05/2025 131/53 79 91 19:13 01/05/2025 95 98% 19:08 01/05/2025 96 100% 19:03 01/05/2025 93 100% 18:59 01/05/2025 131/54 81 89 18:58 01/05/2025 89 98% 18:53 01/05/2025 93 99% 18:48 01/05/2025 102 85% 18:44 01/05/2025 126/52 84 91 18:43 01/05/2025 91 100% 5 of 7 Vitals Measured Time BP MAP HR RR O2Sat ETCO2 Temp Pain GCS RTS 18:38 01/05/2025 97 100% 18:33 01/05/2025 94 100% 18:29 01/05/2025 135/58 74 93 18:28 01/05/2025 90 100% 18:23 01/05/2025 91 100% 18:18 01/05/2025 95 100% 18:14 01/05/2025 132/61 84 96 18:13 01/05/2025 96 100% 18:08 01/05/2025 103 98% 18:03 01/05/2025 93 100% 17:59 01/05/2025 136/62 76 94 17:58 01/05/2025 95 100% 17:53 01/05/2025 93 99% 17:48 01/05/2025 94 100% 17:44 01/05/2025 132/55 76 94 17:43 01/05/2025 93 99% 17:38 01/05/2025 92 99% 17:33 01/05/2025 95 97% 17:29 01/05/2025 120/56 74 95 17:28 01/05/2025 102 99% 17:23 01/05/2025 96 100% 17:18 01/05/2025 97 98% 17:14 01/05/2025 122/48 72 96 17:13 01/05/2025 93 100% 17:08 01/05/2025 97 99% 6 of 7 Vitals Measured Time BP MAP HR RR O2Sat ETCO2 Temp Pain GCS RTS 17:03 01/05/2025 (more content not included)... Normal [facility] .Auto Diffon 01-07-2025 Basophil, Absolute 0.1 10 3/mcL Normal 0.0-0.3 [facility] Comment on above: Performed By: #### A TRENT, RFP, CBC, LIPID, ADIFF, MG, A1C, GFR, BMP ####[facility] [place] [address] Basophils/100 WBC (Bld) 1.0 % Normal 0.0-2.5 [facility] Comment on above: Performed By: #### A TRENT, RFP, CBC, LIPID, ADIFF, MG, A1C, GFR, BMP ####[facility] [place] [address] Eosinophil, Absolute 0.2 10 3/mcL Normal 0.0-0.7 [facility] Comment on above: Performed By: #### A TRENT, RFP, CBC, LIPID, ADIFF, MG, A1C, GFR, BMP ####[address] [address] Eosinophils/100 WBC (Bld) 2.6 % Normal 0.0-6.0 [facility] Comment on above: Performed By: #### A TRENT, RFP, CBC, LIPID, ADIFF, MG, A1C, GFR, BMP ####[address] [address] Lymphocyte, Absolute 1.6 10 3/mcL Normal 0.9-4.3 [facility] Comment on above: Performed By: #### A TRENT, RFP, CBC, LIPID, ADIFF, MG, A1C, GFR, BMP ####[address] [address] Lymphocytes/100 WBC (Bld) 23.1 % Normal 20.0-40.0 [facility] Comment on above: Performed By: #### A TRENT, RFP, CBC, LIPID, ADIFF, MG, A1C, GFR, BMP ####[address] [address] Monocyte, Absolute 0.6 10 3/mcL Normal 0.1-1.4 [facility] Comment on above: Performed By: #### A TRENT, RFP, CBC, LIPID, ADIFF, MG, A1C, GFR, BMP ####[address] [address] Monocytes/100 WBC (Bld) 9.3 % Normal 2.0-13.0 [facility] Comment on above: Performed By: #### A TRENT, RFP, CBC, LIPID, ADIFF, MG, A1C, GFR, BMP ####[address] [address] Neutrophils/100 WBC (Bld) 64.0 % Normal 50.0-75.0 [facility] Comment on above: Performed By: #### A TRENT, RFP, CBC, LIPID, ADIFF, MG, A1C, GFR, BMP ####[address] [address] .GFRon 01-07-2025 Estimated Glomerular Filtration Rate 8 ml/min/1.73sqm Normal [facility] Comment on above: Result Comment: Stages of Chronic Kidney Disease (CKD) Stage Description eGFR(ml/min/1.73 sq.m.) CKD 1 Normal kidney function or >=90 normal kindney function with possible kidney damage (ex. Proteinuria) CKD 2 Kidney damage with mild loss 60-89 of kidney function CKD 3a Mild to moderate loss of kidney 45-59 function CKD 3b Moderate to severe loss of 30-44 of kindey function CKD 4 Severe loss of kidney function 15-29 CKD 5 Kidney failure <15 Note: (go live 2024) the eGFR calculation was updated to the 2020 CKD-EPI creatinine equation without a race factor to calculate the eGFR results. Performed By: #### A TRENT, RFP, CBC, LIPID, ADIFF, MG, A1C, GFR, BMP ####[place] [address] .NEUABSon 01-07-2025 Neutrophil, Absolute 4.4 10 3/mcL Normal 2.3-8.1 [facility] Comment on above: Performed By: #### A TRENT, RFP, CBC, LIPID, ADIFF, MG, A1C, GFR, BMP ####[place] [address] A1Con 01-07-2025 Glucose [Mass/Vol] 100 mg/dL Normal [facility] Comment on above: Result Comment: Cindy mated Average Glucose calculated by equation ((28.7xA1C)-46.7) Estimated average glucose (eAG) is a calculated value from Hemoglobin A1C and is senior sales representative of the average blood glucose level in the last 2-3 month period. Normal range: less than 114 mg/dL Performed By: #### A TRENT, RFP, CBC, LIPID, ADIFF, MG, A1C, GFR, BMP ####[place] [address] HbA1c (Bld) [Mass fraction] 5.1 % Normal 4.0-6.0 [facility] Comment on above: Performed By: #### A TRENT, RFP, CBC, LIPID, ADIFF, MG, A1C, GFR, BMP ####[place] [address] B12on 01-07-2025 Cobalamin (Vitamin B12) [Mass/Vol] 681 pg/mL Normal 211-911 [facility] Comment on above: Order Comment: add o n lab Performed By: #### G FR, CBC, ADIFF, CMP, ANEU #### [place] [address] BMPon 01-07-2025 BUN/Creatinine Ratio 8.1 ratio Low 10.0-22.0 [facility] Comment on above: Performed By: #### A BSGEL, ABOGEL #### [place] [address] Performed By: #### A TRENT, RFP, CBC, LIPID, ADIFF, MG, A1C, GFR, BMP ####[place] [address] Calcium [Mass/Vol] 8.9 mg/dL Normal 8.7-10.4 [facility] Comment on above: Performed By: #### A BSGEL, ABOGEL #### [place] [address] Performed By: #### A TRENT, RFP, CBC, LIPID, ADIFF, MG, A1C, GFR, BMP ####[place] [address] Chloride [Moles/Vol] 98 mmol/L Normal 98-110 [facility] Comment on above: Performed By: #### A BSGEL, ABOGEL #### [place] [address] Performed By: #### A TRENT, RFP, CBC, LIPID, ADIFF, MG, A1C, GFR, BMP ####[place] [address] CO2 [Moles/Vol] 24 mmol/L Normal 22-32 [facility] Comment on above: Performed By: #### A BSGEL, ABOGEL #### [place] [address] Performed By: #### A TRENT, RFP, CBC, LIPID, ADIFF, MG, A1C, GFR, BMP ####[place] [address] Creatinine [Mass/Vol] 5.33 mg/dL High 0.50-1.20 [facility] Comment on above: Result Comment: Test ing performed on [employer] analyzer using enzymatic creatinine methodology. Performed By: #### A BRENNA ZARAGOZA #### [place] [address] Performed By: #### A TRENT, RFP, CBC, LIPID, ADIFF, MG, A1C, GFR, BMP ####[place] [address] Electrolyte Balance 14.0 mEq/L Normal 4.0-15.0 [facility] Comment on above: Performed By: #### A BRENNA ZARAGOZA #### [place] [address] Performed By: #### A TRENT, RFP, CBC, LIPID, ADIFF, MG, A1C, GFR, BMP ####[place] [address] Glucose [Mass/Vol] 86 mg/dL Normal 82-115 [facility] Comment on above: Performed By: #### A BRENNA ZARAGOZA #### [place] [address] Performed By: #### A TRENT, RFP, CBC, LIPID, ADIFF, MG, A1C, GFR, BMP ####[place] [address] Potassium [Moles/Vol] 4.3 mmol/L Normal 3.5-5.0 [facility] Comment on above: Performed By: #### A BRENNA ZARAGOZA #### [place] [address] Performed By: #### A TRENT, RFP, CBC, LIPID, ADIFF, MG, A1C, GFR, BMP ####[place] [address] Sodium [Moles/Vol] 136 mmol/L Normal 136-145 [facility] Comment on above: Performed By: #### A BRENNA ZARAGOZA #### [place] [address] Performed By: #### A TRENT, RFP, CBC, LIPID, ADIFF, MG, A1C, GFR, BMP ####[place] [address] Urea nitrogen [Mass/Vol] 43.0 mg/dL High 8.0-22.0 [facility] Comment on above: Performed By: #### A BRENNA ZARAGOZA #### [place] [address] Performed By: #### A TRENT, RFP, CBC, LIPID, ADIFF, MG, A1C, GFR, BMP ####[place] [address] CBCon 01-07-2025 Erythrocyte distribution width (RBC) [Ratio] 16.5 % High 11.5-15.5 [facility] Comment on above: Performed By: #### A TRENT, RFP, CBC, LIPID, ADIFF, MG, A1C, GFR, BMP ####[place] [address] Hematocrit (Bld) [Volume fraction] 23.5 % Low 34.0-46.0 [facility] Comment on above: Performed By: #### A TRENT, RFP, CBC, LIPID, ADIFF, MG, A1C, GFR, BMP ####[place] [address] Hgb 7.8 G/dL Low 12.0-16.0 [facility] Comment on above: Performed By: #### A TRENT, RFP, CBC, LIPID, ADIFF, MG, A1C, GFR, BMP ####[place] [address] MCH (RBC) [Entitic mass] 33.4 pg High 27.0-33.0 [facility] Comment on above: Performed By: #### A TRENT, RFP, CBC, LIPID, ADIFF, MG, A1C, GFR, BMP ####[place] [address] MCHC 33.4 G/dL Normal 32.0-36.0 [facility] Comment on above: Performed By: #### A TRENT, RFP, CBC, LIPID, ADIFF, MG, A1C, GFR, BMP ####[place] [address] MCV (RBC) [Entitic vol] 100.2 fL High 80.0-99.0 [facility] Comment on above: Performed By: #### A TRENT, RFP, CBC, LIPID, ADIFF, MG, A1C, GFR, BMP ####[place] [address] Platelet 199 10 3/mcL Normal 150-450 [facility] Comment on above: Performed By: #### A TRENT, RFP, CBC, LIPID, ADIFF, MG, A1C, GFR, BMP ####[place] [address] Platelet mean volume (Bld) [Entitic vol] 7.0 fL Normal 6.6-10.5 [facility] Comment on above: Performed By: #### A TRENT, RFP, CBC, LIPID, ADIFF, MG, A1C, GFR, BMP ####[place] [address] RBC 2.35 10 6/mcL Low 4.10-5.30 [facility] Comment on above: Performed By: #### A TRENT, RFP, CBC, LIPID, ADIFF, MG, A1C, GFR, BMP ####[place] [address] WBC 6.9 10 3/mcL Normal 4.5-10.8 [facility] Comment on above: Performed By: #### A TRENT, RFP, CBC, LIPID, ADIFF, MG, A1C, GFR, BMP ####[place] [address] FOLon 01-07-2025 Folate 19.41 ng/mL Normal 5.38-24.00 [facility] Comment on above: Order Comment: add o n lab Performed By: #### G FR, CBC, ADIFF, CMP, ANEU #### [place] [address] LABORATORYOrdered By: Mandy Wilson on 01-07-2025 Blood Glucose Testing Reason Routine (01/07/25 11:49 AM) [facility] Work Phone: Glucose [Mass/Vol] 119 mg/dL High 82 - 115 mg/dL [facility] Work Phone: LABORATORYOrdered By: SYSTEM SYSTEM on 01-07-2025 Cobalamin (Vitamin B12) [Mass/Vol] 681 pg/mL Normal 211 - 911 pg/mL ADM SS Folate [Mass/Vol] 19.41 ng/mL Normal 5.38 - 24. 00 ng/mL ADM SS Albumin BCP dye [Mass/Vol] 2.8 G/dL Low 3.2 - 4.8 G/dL AH ADM SS Basophils (Bld) [#/Vol] 0.1 103/mcL Normal 0.0 - 0.3 10^3/mcL AH Workflow SS Basophils/100 WBC (Bld) 1.0 % Normal 0.0 - 2.5 % AH Workflow SS Eosinophils (Bld) [#/Vol] 0.2 103/mcL Normal 0.0 - 0.7 10^3/mcL AH Workflow SS Eosinophils/100 WBC (Bld) 2.6 % Normal 0.0 - 6.0 % AH Workflow SS Erythrocyte distribution width (RBC) [Ratio] 16.5 % High 11.5 - 15.5 % AH Workflow SS Estimated Glomerular Filtration Rate 8 ml/min/1.73sqm Invalid Interpretation Code ADM SS Comment on above: Interpretive Data: Stages of Chronic Kidney Disease (CKD) Stage Description eGFR(ml/min/1.73 sq.m.) CKD 1 Normal kidney function or >=90 normal kindney function with possible kidney damage (ex. Proteinuria) CKD 2 Kidney damage with mild loss 60-89 of kidney function CKD 3a Mild to moderate loss of kidney 45-59 function CKD 3b Moderate to severe loss of 30-44 of kindey function CKD 4 Severe loss of kidney function 15-29 CKD 5 Kidney failure <15 Note: (go live 2024) the eGFR calculation was updated to the 2020 CKD-EPI creatinine equation without a race factor to calculate the eGFR results. Glucose [Mass/Vol] 100 mg/dL Invalid Interpretation Code Auto Chem SS Comment on above: Interpretive Data: E stimated average glucose (eAG) is a calculated value from Hemoglobin A1C and is senior sales representative of the average blood glucose level in the last 2-3 month period. Normal range: less than 114 mg/dL HbA1c (Bld) [Mass fraction] 5.1 % Normal 4.0 - 6.0 % Auto Chem SS Hematocrit (Bld) [Volume fraction] 23.5 % Low 34.0 - 46.0 % AH Workflow SS Hemoglobin (Bld) [Mass/Vol] 7.8 G/dL Low 12.0 - 16.0 G/dL AH Workflow SS Lymphocytes (Bld) [#/Vol] 1.6 103/mcL Normal 0.9 - 4.3 10^3/mcL AH Workflow SS Lymphocytes/100 WBC (Bld) 23.1 % Normal 20.0 - 40.0 % AH Workflow SS Magnesium [Mass/Vol] 2.2 mg/dL Normal 1.6 - 2 .4 mg/dL ADM SS MCH (RBC) [Entitic mass] 33.4 pg High 27.0 - 33.0 pg AH Workflow SS MCHC 33.4 G/dL Normal 32.0 - 36.0 G/dL AH Workflow SS MCV (RBC) [Entitic vol] 100.2 fL High 80.0 - 99.0 fL AH Workflow SS Monocytes (Bld) [#/Vol] 0.6 103/mcL Normal 0.1 - 1.4 10^3/mcL AH Workflow SS Monocytes/100 WBC (Bld) 9.3 % Normal 2.0 - 13.0 % AH Workflow SS Neutrophils (Bld) [#/Vol] 4.4 103/mcL Normal 2.3 - 8.1 10^3/mcL AH Workflow SS Neutrophils/100 WBC (Bld) 64.0 % Normal 50.0 - 75.0 % AH Workflow SS Phosphate [Mass/Vol] 6.9 mg/dL High 2.4 - 5 .1 mg/dL ADM SS Comment on above: Interpretive Data: * *Note - New Reference Range in effect 20 Platelet mean volume (Bld) [Entitic vol] 7.0 fL Normal 6.6 - 10.5 fL AH Workflow SS Platelets (Bld) [#/Vol] 199 103/mcL Normal 150 - 450 10^3/mcL AH Workflow SS RBC (Bld) [#/Vol] 2.35 106/mcL Low 4.10 - 5.3 0 10^6/mcL AH Workflow SS WBC (Bld) [#/Vol] 6.9 103/mcL Normal 4.5 - 10.8 10^3/mcL AH Workflow SS LABORATORYOrdered By: Abelino Guillermo on 01-07-2025 Cholesterol [Mass/Vol] 111 mg/dL Normal 50 - 199 mg/dL ADM SS Comment on above: Interpretive Data: C holesterol Reference Interval: Less than 200 Desirable 200-239 Borderline high risk 240 and above High risk Cholesterol in HDL [Mass/Vol] 54 mg/dL Normal 40 - 59 mg/dL ADM SS Cholesterol in LDL [Mass/Vol] 38 mg/dL Normal 0 - 129 mg/dL ADM SS Triglyceride [Mass/Vol] 94 mg/dL Normal 3 - 149 mg/dL ADM SS LABORATORYOrdered By: Carmen Lazaro on 01-07-2025 Blood Glucose Testing Reason Routine (01/07/25 7:53 AM) [facility] Work Phone: Glucose [Mass/Vol] 92 mg/dL Normal 82 - 115 mg/dL [facility] Work Phone: LIPIDon 01-07-2025 Cholesterol [Mass/Vol] 111 mg/dL Normal 50-199 [facility] Comment on above: Result Comment: Chol esterol Reference Interval: Less than 200 Desirable 200-239 Borderline high risk 240 and above High risk Performed By: #### A TRENT, RFP, CBC, LIPID, ADIFF, MG, A1C, GFR, BMP ####[address] [address] Cholesterol in HDL [Mass/Vol] 54 mg/dL Normal 40-59 [facility] Comment on above: Performed By: #### A TRENT, RFP, CBC, LIPID, ADIFF, MG, A1C, GFR, BMP ####[place] [id number] [place] [address] Cholesterol in LDL [Mass/Vol] 38 mg/dL Normal 0-129 [facility] Comment on above: Performed By: #### A TRENT, RFP, CBC, LIPID, ADIFF, MG, A1C, GFR, BMP ####[place] [address] [place] [address] Triglyceride [Mass/Vol] 94 mg/dL Normal 3-149 [facility] Comment on above: Performed By: #### A TRENT, RFP, CBC, LIPID, ADIFF, MG, A1C, GFR, BMP ####[place] [address] [place] [address] Laboratory - Chemistry and C hemistry - challengeOrdered By: SYSTEM SYSTEM on 01-07-2025 Calcium [Mass/Vol] 8.9 mg/dL Normal 8.7 - 10. 4 mg/dL ADM SS Chloride [Moles/Vol] 98 mmol/L Normal 98 - 11 0 mEq/L AH ADM SS CO2 [Moles/Vol] 24 mmol/L Normal 22 - 32 mEq/L AH ADM SS Creatinine [Mass/Vol] 5.33 mg/dL High 0.50 - 1.20 mg/dL AH ADM SS Comment on above: Interpretive Data: T esting performed on [employer] analyzer using enzymatic creatinine methodology. Glucose [Mass/Vol] 86 mg/dL Normal 82 - 115 mg/dL AH ADM SS Potassium [Moles/Vol] 4.3 mmol/L Normal 3.5 - 5.0 mEq/L AH ADM SS Sodium [Moles/Vol] 136 mmol/L Normal 136 - 145 mEq/L AH ADM SS Urea nitrogen [Mass/Vol] 43.0 mg/dL High 8.0 - 22.0 mg/dL AH ADM SS Urea nitrogen/Creatinine [Mass ratio] 8.1 ratio Low 10.0 - 22.0 ratio AH ADM SS MGon 01-07-2025 Magnesium [Mass/Vol] 2.2 mg/dL Normal 1.6-2.4 [facility] Comment on above: Performed By: #### A BSGEL ABOGEL #### [facility] [address] [place] [address] No Panel InformationOrdered By: SYSTEM SYSTEM on 01-07-2025 Electrolyte Balance 14.0 mEq/L Normal 4.0 - 15 .0 mEq/L AH ADM SS RFPon 01-07-2025 Albumin Level 2.8 G/dL Low 3.2-4.8 [facility] Comment on above: Performed By: #### A TRENT, RFP, CBC, LIPID, ADIFF, MG, A1C, GFR, BMP ####[address] [address] Phosphate [Mass/Vol] 6.9 mg/dL High 2.4-5.1 [facility] Comment on above: Result Comment: No te - New Reference Range in effect 20 Performed By: #### A TRENT, RFP, CBC, LIPID, ADIFF, MG, A1C, GFR, BMP ####[address] [address] .Auto Diffon 01-06-2025 Basophil, Absolute 0.1 10 3/mcL Normal 0.0-0.3 [facility] Comment on above: Performed By: #### A BSGEL, CBC, FERR, ADIFF, ANEU, FES, ABOGEL ####[address] [address] Basophils/100 WBC (Bld) 0.9 % Normal 0.0-2.5 [facility] Comment on above: Performed By: #### A BSGEL, CBC, FERR, ADIFF, ANEU, FES, ABOGEL ####[address] [address] Eosinophil, Absolute 0.2 10 3/mcL Normal 0.0-0.7 [facility] Comment on above: Performed By: #### A BSGEL, CBC, FERR, ADIFF, ANEU, FES, ABOGEL ####[address] [address] Eosinophils/100 WBC (Bld) 2.2 % Normal 0.0-6.0 [facility] Comment on above: Performed By: #### A BSGEL, CBC, FERR, ADIFF, ANEU, FES, ABOGEL ####[address] [address] Lymphocyte, Absolute 1.2 10 3/mcL Normal 0.9-4.3 [facility] Comment on above: Performed By: #### A BSGEL, CBC, FERR, ADIFF, ANEU, FES, ABOGEL ####[address] [address] Lymphocytes/100 WBC (Bld) 15.8 % Low 20.0-40.0 [facility] Comment on above: Performed By: #### A BSGEL, CBC, FERR, ADIFF, ANEU, FES, ABOGEL ####[place] [id number] [place] [address] Monocyte, Absolute 0.6 10 3/mcL Normal 0.1-1.4 [facility] Comment on above: Performed By: #### A BSGEL, CBC, FERR, ADIFF, ANEU, FES, ABOGEL ####[address] [address] Monocytes/100 WBC (Bld) 7.9 % Normal 2.0-13.0 [facility] Comment on above: Performed By: #### A BSGEL, CBC, FERR, ADIFF, ANEU, FES, ABOGEL ####[address] [address] Neutrophils/100 WBC (Bld) 73.2 % Normal 50.0-75.0 [facility] Comment on above: Performed By: #### A BSGEL, CBC, FERR, ADIFF, ANEU, FES, ABOGEL ####[address] [address] Basophil, Absolute 0.1 10 3/mcL Normal 0.0-0.3 [facility] Comment on above: Performed By: #### A BSARMOND ABOGEL #### [address] [address] Basophils/100 WBC (Bld) 0.8 % Normal 0.0-2.5 [facility] Comment on above: Performed By: #### A BSGEL, ABOGEL #### [address] [address] Eosinophil, Absolute 0.2 10 3/mcL Normal 0.0-0.7 [facility] Comment on above: Performed By: #### A BSGEL, ABOGEL #### [address] [address] Eosinophils/100 WBC (Bld) 3.1 % Normal 0.0-6.0 [facility] Comment on above: Performed By: #### A BSGEL, ABOGEL #### [address] [address] Lymphocyte, Absolute 1.5 10 3/mcL Normal 0.9-4.3 [facility] Comment on above: Performed By: #### A BSGEL, ABOGEL #### [facility] [address] [place] [address] Lymphocytes/100 WBC (Bld) 21.0 % Normal 20.0-40.0 [facility] Comment on above: Performed By: #### A BSGEL, ABOGEL #### [address] [address] Monocyte, Absolute 0.7 10 3/mcL Normal 0.1-1.4 [facility] Comment on above: Performed By: #### A BSGEL, ABOGEL #### [address] [address] Monocytes/100 WBC (Bld) 10.3 % Normal 2.0-13.0 [facility] Comment on above: Performed By: #### A BSGEL, ABOGEL #### [address] [address] Neutrophils/100 WBC (Bld) 64.8 % Normal 50.0-75.0 [facility] Comment on above: Performed By: #### A BSGEL, ABOGEL #### [address] [address] .GFRon 01-06-2025 Estimated Glomerular Filtration Rate 11 ml/min/1.73sqm Normal [facility] Comment on above: Result Comment: Stages of Chronic Kidney Disease (CKD) Stage Description eGFR(ml/min/1.73 sq.m.) CKD 1 Normal kidney function or >=90 normal kindney function with possible kidney damage (ex. Proteinuria) CKD 2 Kidney damage with mild loss 60-89 of kidney function CKD 3a Mild to moderate loss of kidney 45-59 function CKD 3b Moderate to severe loss of 30-44 of kindey function CKD 4 Severe loss of kidney function 15-29 CKD 5 Kidney failure <15 Note: (go live 2024) the eGFR calculation was updated to the 2020 CKD-EPI creatinine equation without a race factor to calculate the eGFR results. Performed By: #### G FR, CBC, ADIFF, CMP, ANEU #### [address] [address] .NEUABSon 01-06-2025 Neutrophil, Absolute 5.8 10 3/mcL Normal 2.3-8.1 [facility] Comment on above: Performed By: #### A BSGEL, CBC, FERR, ADIFF, ANEU, FES, ABOGEL ####[place] [id number] Neutrophil, Absolute 4.6 10 3/mcL Normal 2.3-8.1 [facility] Comment on above: Performed By: #### A BSGEL, ABOGEL #### [address] [address] ABO/Rh (Gel)on 01-06-2025 ABO/Rh Interp Positive Invalid Interpretation Code [facility] Comment on above: Performed By: #### A BSGEL, CBC, FERR, ADIFF, ANEU, FES, ABOGEL ####[place] [id number] ABS (Gel)on 01-06-2025 ABSC Interp (Gel) Negative Normal [facility] Comment on above: Performed By: #### A BSGEL, CBC, FERR, ADIFF, ANEU, FES, ABOGEL ####[address] [address] CBCon 01-06-2025 Erythrocyte distribution width (RBC) [Ratio] 16.5 % High 11.5-15.5 [facility] Comment on above: Performed By: #### A BSGEL, CBC, FERR, ADIFF, ANEU, FES, ABOGEL ####[place] [address] Hematocrit (Bld) [Volume fraction] 23.5 % Low 34.0-46.0 [facility] Comment on above: Performed By: #### A BSGEL, CBC, FERR, ADIFF, ANEU, FES, ABOGEL ####[place] [address] Hgb 7.9 G/dL Low 12.0-16.0 [facility] Comment on above: Performed By: #### A BSGEL, CBC, FERR, ADIFF, ANEU, FES, ABOGEL ####[id number] [place], [place] [address] MCH (RBC) [Entitic mass] 33.9 pg High 27.0-33.0 [facility] Comment on above: Performed By: #### A BSGEL, CBC, FERR, ADIFF, ANEU, FES, ABOGEL ####[address] [address] MCHC 33.7 G/dL Normal 32.0-36.0 [facility] Comment on above: Performed By: #### A BSGEL, CBC, FERR, ADIFF, ANEU, FES, ABOGEL ####[address] [address] MCV (RBC) [Entitic vol] 100.7 fL High 80.0-99.0 [facility] Comment on above: Performed By: #### A BSGEL, CBC, FERR, ADIFF, ANEU, FES, ABOGEL ####[address] [address] Platelet 222 10 3/mcL Normal 150-450 [facility] Comment on above: Performed By: #### A BSGEL, CBC, FERR, ADIFF, ANEU, FES, ABOGEL ####[address] [address] Platelet mean volume (Bld) [Entitic vol] 7.0 fL Normal 6.6-10.5 [facility] Comment on above: Performed By: #### A BSGEL, CBC, FERR, ADIFF, ANEU, FES, ABOGEL ####[place] [id number] RBC 2.33 10 6/mcL Low 4.10-5.30 [facility] Comment on above: Performed By: #### A BSGEL, CBC, FERR, ADIFF, ANEU, FES, ABOGEL ####[address] [address] WBC 7.9 10 3/mcL Normal 4.5-10.8 [facility] Comment on above: Performed By: #### A BSGEL, CBC, FERR, ADIFF, ANEU, FES, ABOGEL ####[place] [id number] Erythrocyte distribution width (RBC) [Ratio] 16.6 % High 11.5-15.5 [facility] Comment on above: Performed By: #### A BSARMOND ABOGEL #### [place] [id number] Hematocrit (Bld) [Volume fraction] 22.4 % Low 34.0-46.0 [facility] Comment on above: Performed By: #### A BSARMOND, ABOGEL #### [place] [address] Hgb 7.4 G/dL Low 12.0-16.0 [facility] Comment on above: Performed By: #### A BSARMOND ABOGEL #### [place] [address] MCH (RBC) [Entitic mass] 33.2 pg High 27.0-33.0 [facility] Comment on above: Performed By: #### A BSARMOND ABOGEL #### [place] [address] MCHC 33.2 G/dL Normal 32.0-36.0 [facility] Comment on above: Performed By: #### A BSARMOND ABOGEL #### [place] [address] MCV (RBC) [Entitic vol] 100.1 fL High 80.0-99.0 [facility] Comment on above: Performed By: #### A BSARMOND ABOGEL #### [place] [address] Platelet 224 10 3/mcL Normal 150-450 [facility] Comment on above: Performed By: #### A BSGEL, ABOGEL #### [place] [address] Platelet mean volume (Bld) [Entitic vol] 7.0 fL Normal 6.6-10.5 [facility] Comment on above: Performed By: #### A BSARMOND, ABOGEL #### [place] [id number] RBC 2.23 10 6/mcL Low 4.10-5.30 [facility] Comment on above: Performed By: #### A BSARMOND ABOGEL #### [place] [address] WBC 7.1 10 3/mcL Normal 4.5-10.8 [facility] Comment on above: Performed By: #### A BRENNA ZARAGOZA #### [place] [id number] CMPon 01-06-2025 Albumin Level 3.0 G/dL Low 3.2-4.8 [facility] Comment on above: Performed By: #### G FR, CBC, ADIFF, CMP, ANEU #### [place] [address] Albumin/Globulin [Mass ratio] 0.9 {ratio} Normal 0.9-1.6 [facility] Comment on above: Performed By: #### G FR, CBC, ADIFF, CMP, ANEU #### [place] [address] ALP [Catalytic activity/Vol] 73 U/L Normal 38-126 [facility] Comment on above: Performed By: #### G FR, CBC, ADIFF, CMP, ANEU #### [place] [address] ALT [Catalytic activity/Vol] 16 U/L Normal 10-49 [facility] Comment on above: Performed By: #### G FR, CBC, ADIFF, CMP, ANEU #### [place] [address] AST [Catalytic activity/Vol] 33 U/L Normal 8-34 [facility] Comment on above: Performed By: #### G FR, CBC, ADIFF, CMP, ANEU #### [place] [address] Bili Total 0.30 mg/dL Normal 0.20-1.20 [facility] Comment on above: Result Comment: Use of this assay is not recommended for patients undergoing treatment with eltrombopag due to the potential for falsely elevated results. Performed By: #### G FR, CBC, ADIFF, CMP, ANEU #### [place] [address] BUN/Creatinine Ratio 7.3 ratio Low 10.0-22.0 [facility] Comment on above: Performed By: #### G FR, CBC, ADIFF, CMP, ANEU #### [address] [address] Calcium [Mass/Vol] 9.6 mg/dL Normal 8.7-10.4 [facility] Comment on above: Performed By: #### G FR, CBC, ADIFF, CMP, ANEU #### [place] [id number] Chloride [Moles/Vol] 99 mmol/L Normal 98-110 [facility] Comment on above: Performed By: #### G FR, CBC, ADIFF, CMP, ANEU #### [address] [address] CO2 [Moles/Vol] 28 mmol/L Normal 22-32 [facility] Comment on above: Performed By: #### G FR, CBC, ADIFF, CMP, ANEU #### [place] [address] Creatinine [Mass/Vol] 4.12 mg/dL High 0.50-1.20 [facility] Comment on above: Result Comment: Test ing performed on [employer] analyzer using enzymatic creatinine methodology. Performed By: #### G FR, CBC, ADIFF, CMP, ANEU #### [address] [address] Electrolyte Balance 10.0 mEq/L Normal 4.0-15.0 [facility] Comment on above: Performed By: #### G FR, CBC, ADIFF, CMP, ANEU #### [address] [address] Globulin 3.4 G/dL Normal 2.5-4.2 [facility] Comment on above: Performed By: #### G FR, CBC, ADIFF, CMP, ANEU #### [place] [id number] Glucose [Mass/Vol] 86 mg/dL Normal 82-115 [facility] Comment on above: Performed By: #### G FR, CBC, ADIFF, CMP, ANEU #### [address] [address] Potassium [Moles/Vol] 3.9 mmol/L Normal 3.5-5.0 [facility] Comment on above: Performed By: #### G FR, CBC, ADIFF, CMP, ANEU #### [address] [address] Sodium [Moles/Vol] 137 mmol/L Normal 136-145 [facility] Comment on above: Performed By: #### G FR, CBC, ADIFF, CMP, ANEU #### [address] [address] Total Protein 6.4 G/dL Normal 5.7-8.2 [facility] Comment on above: Performed By: #### G FR, CBC, ADIFF, CMP, ANEU #### [address] [address] Urea nitrogen [Mass/Vol] 30.0 mg/dL High 8.0-22.0 [facility] Comment on above: Performed By: #### G FR, CBC, ADIFF, CMP, ANEU #### [address] [address] [place] 01-06-2025 Ferritin [Mass/Vol] 923.5 ng/mL High 8.0-252.0 [facility] Comment on above: Performed By: #### A BSGEL, CBC, FERR, ADIFF, ANEU, FES, ABOGEL ####[address] [address] FESon 01-06-2025 Iron [Mass/Vol] 55 ug/dL Normal 50-170 [facility] Comment on above: Performed By: #### A BSGEL, CBC, FERR, ADIFF, ANEU, FES, ABOGEL ####[address] [address] Iron Sat 24 % Normal [facility] Comment on above: Performed By: #### A BSGEL, CBC, FERR, ADIFF, ANEU, FES, ABOGEL ####[address] [address] TIBC 226 mcg/dL Low 250-500 [facility] Comment on above: Performed By: #### A BSGEL, CBC, FERR, ADIFF, ANEU, FES, ABOGEL ####[place] [address] HEPACon 01-06-2025 Hep A IgM Ab Non-Reactive Normal Non-Reactive [facility] Comment on above: Performed By: #### G FR, CBC, ADIFF, CMP, ANEU #### [place] [address] Hep A IgM Ab Int [facility] Comment on above: Result Comment: No s erological evidence of a current Hepatitis A infection. See Interp Performed By: #### G FR, CBC, ADIFF, CMP, ANEU #### [place] [address] Hep B Core IgM Ab Non-Reactive Normal Non-Reactive [facility] Comment on above: Performed By: #### G FR, CBC, ADIFF, CMP, ANEU #### [place] [address] Hep B Core IgM Ab Int [facility] Comment on above: Result Comment: Samp les with a value < 0.80 Index are considered nonreactive (negative) for IgM antibodies to hepatitis B core antigen. See Interp Performed By: #### G FR, CBC, ADIFF, CMP, ANEU #### [place] [address] Hep B Surf Ag Non-Reactive [facility] Comment on above: Performed By: #### G FR, CBC, ADIFF, CMP, ANEU #### [place] [address] Hep C Ab Non-Reactive Normal Non-Reactive [facility] Comment on above: Performed By: #### G FR, CBC, ADIFF, CMP, ANEU #### [place] [address] Hep C Ab Int [facility] Comment on above: Result Comment: Nonr eactive: Samples with a value < 0.80 are considered nonreactive (negative) for antibodies to HCV. A negative test result does not exclude the possibility of exposure to or infection with HCV. HCV antibodies may be undetectable in some stages of the infection and in some clinical conditions. See Interp Performed By: #### G FR, CBC, ADIFF, CMP, ANEU #### [facility] [address] [place] [address] LABORATORYOrdered By: Manohar Abbasi on 01-06-2025 Blood Glucose Testing Reason Routine (01/06/25 10:22 PM) [facility] Work Phone: Glucose [Mass/Vol] 140 mg/dL High 82 - 115 mg/dL [facility] Work Phone: LABORATORYOrdered By: Yadira washington on 01-06-2025 ABO and Rh group Nom (Bld) Blood group A Rh(D) positive Invalid Interpretation Code BB Auto SS Blood group antibody screen Ql Negative ABSC (01/06/25 2:19 PM) Normal AH BB Auto SS LABORATORYOrdered By: SYSTEM SYSTEM on 01-06-2025 Basophils (Bld) [#/Vol] 0.1 103/mcL Normal 0.0 - 0.3 10^3/mcL AH Workflow SS Basophils/100 WBC (Bld) 0.9 % Normal 0.0 - 2.5 % AH Workflow SS Eosinophils (Bld) [#/Vol] 0.2 103/mcL Normal 0.0 - 0.7 10^3/mcL AH Workflow SS Eosinophils/100 WBC (Bld) 2.2 % Normal 0.0 - 6.0 % AH Workflow SS Erythrocyte distribution width (RBC) [Ratio] 16.5 % High 11.5 - 15.5 % AH Workflow SS Ferritin [Mass/Vol] 923.5 ng/mL High 8.0 - 25 2.0 ng/mL AH ADM SS Hematocrit (Bld) [Volume fraction] 23.5 % Low 34.0 - 46.0 % AH Workflow SS Hemoglobin (Bld) [Mass/Vol] 7.9 G/dL Low 12.0 - 16.0 G/dL AH Workflow SS Iron [Mass/Vol] 55 ug/dL Normal 50 - 170 mcg/dL AH ADM SS Iron binding capacity [Mass/Vol] 226 mcg/dL Low 250 - 500 mcg/dL AH ADM SS Iron saturation [Mass fraction] 24 % Invalid Interpretation Code ADM SS Lymphocytes (Bld) [#/Vol] 1.2 103/mcL Normal 0.9 - 4.3 10^3/mcL AH Workflow SS Lymphocytes/100 WBC (Bld) 15.8 % Low 20.0 - 40.0 % AH Workflow SS MCH (RBC) [Entitic mass] 33.9 pg High 27.0 - 33.0 pg AH Workflow SS MCHC 33.7 G/dL Normal 32.0 - 36.0 G/dL AH Workflow SS MCV (RBC) [Entitic vol] 100.7 fL High 80.0 - 99.0 fL AH Workflow SS Monocytes (Bld) [#/Vol] 0.6 103/mcL Normal 0.1 - 1.4 10^3/mcL AH Workflow SS Monocytes/100 WBC (Bld) 7.9 % Normal 2.0 - 13.0 % AH Workflow SS Neutrophils (Bld) [#/Vol] 5.8 103/mcL Normal 2.3 - 8.1 10^3/mcL AH Workflow SS Neutrophils/100 WBC (Bld) 73.2 % Normal 50.0 - 75.0 % AH Workflow SS Platelet mean volume (Bld) [Entitic vol] 7.0 fL Normal 6.6 - 10.5 fL AH Workflow SS Platelets (Bld) [#/Vol] 222 103/mcL Normal 150 - 450 10^3/mcL AH Workflow SS RBC (Bld) [#/Vol] 2.33 106/mcL Low 4.10 - 5.3 0 10^6/mcL AH Workflow SS WBC (Bld) [#/Vol] 7.9 103/mcL Normal 4.5 - 10.8 10^3/mcL AH Workflow SS Albumin BCP dye [Mass/Vol] 3.0 G/dL Low 3.2 - 4.8 G/dL AH ADM SS Albumin/Globulin [Mass ratio] 0.9 {ratio} Normal 0.9 - 1.6 ratio AH ADM SS ALP [Catalytic activity/Vol] 73 U/L Normal 38 - 126 U/L AH ADM SS ALT No additional P-5'-P [Catalytic activity/Vol] 16 U/L Normal 10 - 49 U/L AH ADM SS AST [Catalytic activity/Vol] 33 U/L Normal 8 - 34 U/L AH ADM SS Basophils (Bld) [#/Vol] 0.1 103/mcL Normal 0.0 - 0.3 10^3/mcL AH Workflow SS Basophils/100 WBC (Bld) 0.8 % Normal 0.0 - 2.5 % AH Workflow SS Bilirubin [Mass/Vol] 0.30 mg/dL Normal 0.20 - 1.20 mg/dL AH ADM SS Comment on above: Interpretive Data: U se of this assay is not recommended for patients undergoing treatment with eltrombopag due to the potential for falsely elevated results. Calcium [Mass/Vol] 9.6 mg/dL Normal 8.7 - 10. 4 mg/dL ADM SS Chloride [Moles/Vol] 99 mmol/L Normal 98 - 11 0 mEq/L AH ADM SS CO2 [Moles/Vol] 28 mmol/L Normal 22 - 32 mEq/L ADM SS Creatinine [Mass/Vol] 4.12 mg/dL High 0.50 - 1.20 mg/dL ADM SS Comment on above: Interpretive Data: T esting performed on [employer] analyzer using enzymatic creatinine methodology. Electrolyte Balance 10.0 mEq/L Normal 4.0 - 15 .0 mEq/L ADM SS Eosinophils (Bld) [#/Vol] 0.2 103/mcL Normal 0.0 - 0.7 10^3/mcL Workflow SS Eosinophils/100 WBC (Bld) 3.1 % Normal 0.0 - 6.0 % Workflow SS Erythrocyte distribution width (RBC) [Ratio] 16.6 % High 11.5 - 15.5 % Workflow SS Estimated Glomerular Filtration Rate 11 ml/min/1.73sqm Invalid Interpretation Code ADM SS Comment on above: Interpretive Data: Stages of Chronic Kidney Disease (CKD) Stage Description eGFR(ml/min/1.73 sq.m.) CKD 1 Normal kidney function or >=90 normal kindney function with possible kidney damage (ex. Proteinuria) CKD 2 Kidney damage with mild loss 60-89 of kidney function CKD 3a Mild to moderate loss of kidney 45-59 function CKD 3b Moderate to severe loss of 30-44 of kindey function CKD 4 Severe loss of kidney function 15-29 CKD 5 Kidney failure <15 Note: (go live 2024) the eGFR calculation was updated to the 2020 CKD-EPI creatinine equation without a race factor to calculate the eGFR results. Globulin 3.4 G/dL Normal 2.5 - 4.2 G/dL ADM SS Glucose [Mass/Vol] 86 mg/dL Normal 82 - 115 mg/dL ADM SS Hematocrit (Bld) [Volume fraction] 22.4 % Low 34.0 - 46.0 % Workflow SS Hemoglobin (Bld) [Mass/Vol] 7.4 G/dL Low 12.0 - 16.0 G/dL Workflow SS Lymphocytes (Bld) [#/Vol] 1.5 103/mcL Normal 0.9 - 4.3 10^3/mcL Workflow SS Lymphocytes/100 WBC (Bld) 21.0 % Normal 20.0 - 40.0 % Workflow SS Magnesium [Mass/Vol] 2.2 mg/dL Normal 1.6 - 2 .4 mg/dL ADM SS MCH (RBC) [Entitic mass] 33.2 pg High 27.0 - 33.0 pg Workflow SS MCHC 33.2 G/dL Normal 32.0 - 36.0 G/dL Workflow SS MCV (RBC) [Entitic vol] 100.1 fL High 80.0 - 99.0 fL Workflow SS Monocytes (Bld) [#/Vol] 0.7 103/mcL Normal 0.1 - 1.4 10^3/mcL Workflow SS Monocytes/100 WBC (Bld) 10.3 % Normal 2.0 - 13.0 % Workflow SS Natriuretic peptide.B prohormone N-Terminal IA [Mass/Vol] 2642 pg/mL High 0 - 900 pg/mL ADM SS Neutrophils (Bld) [#/Vol] 4.6 103/mcL Normal 2.3 - 8.1 10^3/mcL Workflow SS Neutrophils/100 WBC (Bld) 64.8 % Normal 50.0 - 75.0 % Workflow SS Platelet mean volume (Bld) [Entitic vol] 7.0 fL Normal 6.6 - 10.5 fL Workflow SS Platelets (Bld) [#/Vol] 224 103/mcL Normal 150 - 450 10^3/mcL Workflow SS Potassium [Moles/Vol] 3.9 mmol/L Normal 3.5 - 5.0 mEq/L ADM SS Protein [Mass/Vol] 6.4 G/dL Normal 5.7 - 8.2 G/dL ADM SS RBC (Bld) [#/Vol] 2.23 106/mcL Low 4.10 - 5.3 0 10^6/mcL AH Workflow SS Sodium [Moles/Vol] 137 mmol/L Normal 136 - 145 mEq/L AH ADM SS Troponin I.cardiac DL <= 0.01 ng/mL [Mass/Vol] 98 ng/L High 0 - 34 ng/L AH ADM SS Comment on above: Interpretive Data: High Sensitive Troponin I Reference Ranges: Female: 0-34 ng/L Male: 0-54 ng/L Testing performed on [employer] analyzer using direct chemiluminescent technology. TSH Qn 9.905 mIU/mL High 0.550 - 4.780 mIU/mL AH ADM SS Urea nitrogen [Mass/Vol] 30.0 mg/dL High 8.0 - 22.0 mg/dL AH ADM SS Urea nitrogen/Creatinine [Mass ratio] 7.3 ratio Low 10.0 - 22.0 ratio AH ADM SS WBC (Bld) [#/Vol] 7.1 103/mcL Normal 4.5 - 10.8 10^3/mcL Workflow SS LABORATORYOrdered By: Abelino Guillermo on 01-06-2025 HAV IgM IA Ql Non-Reactive (01/06/25 2:19 PM) Normal Non-Reactive AH ADM SS HAV IgM IA Ql No serological evide nce of a current Hepatitis A infection. Invalid Interpretation Code Chemistry S HBV core IgM IA Ql Non-Reactive (01/06/25 2:19 PM) Normal Non-Reactive AH ADM SS HBV core IgM IA Ql Samples with a value < 0.80 Index are considered nonreactive (negative) for IgM antibodies to hepatitis B core antigen. Invalid Interpretation Code Chemistry S HBV surface Ag IA Ql Non-Reactive (01/06/25 2:19 PM) Normal Non-Reactive AH ADM SS HCV Ab IA Ql Non-Reactive (01/06/25 2:19 PM) Normal Non-Reactive AH ADM SS HCV Ab IA Ql Nonreactive: Samples with a value < 0.80 are considered nonreactive (negative) for antibodies to HCV. A negative test result does not exclude the possibility of exposure to or infection with HCV. HCV antibodies may be undetectable in some stages of the infection and in some clinical conditions. Invalid Interpretation Code Chemistry S MGon 01-06-2025 Magnesium [Mass/Vol] 2.2 mg/dL Normal 1.6-2.4 [facility] Comment on above: Performed By: #### G FR, CBC, ADIFF, CMP, ANEU #### [place] [id number] [address] [place] [address] NM MYOCARDIAL SPECT STRESS/R ESTon 01-06-2025 NM MYOCARDIAL SPECT STRESS/REST ORIGINAL EXAMINATION: CARDIAC SPECT01/06/2025 10:28 am TECHNIQUE: Lexiscan dose: 0.4 mg IV Radiopharmaceutical (rest and stress doses): Tc-99m Sestamibi IV 8.9 and 26.1 mCi SPECT acquisition and processing: Images reconstructed into short, vertical long, and horizontal long axis planes. Wall motion evaluation and quantitative LVEF assessment. Low-dose attenuation correction CT. COMPARISON: Stress test November 12, 2016 HISTORY: Reason for Exam: chest pain FINDINGS: Mildly decreased perfusion involving the inferior wall on non-attenuation corrected post stress images resolves on attenuation corrected post-stress images, likely represents soft tissue attenuation. There is no convincing stress-induced reversible perfusion abnormality. No fixed perfusion defect is seen to suggest infarction. The left ventricular end-diastolic volume is 43 mL. Gated imaging demonstrates no regional wall motion abnormality. Estimated left ventricular ejection fraction is 88 %. TID ratio is normal at 0.96. Low-dose attenuation correction CT demonstrates multivessel coronary artery disease. The heart is normal in size. No pericardial or pleural effusion is seen. There is no focal consolidation. IMPRESSION: 1. No convincing stress-induced reversible perfusion abnormality is seen. 2. Cardiac systolic function is normal with estimated ejection fraction of 88 %. Interpreted by: Shailesh Shook MD Preliminary Report By: Shailesh Shook MD Electronically signed By Shailesh Shook MD Dictated Date: 01/06/2025 12:45:27 PM Prelim Date: 01/06/2025 12:53:12 PM Sign Date: 01/06/2025 12:53:12 PM Ordering Provider: ALCON Brito [facility] PBNPon 01-06-2025 Natriuretic peptide B (Bld) [Mass/Vol] 2642 pg/mL High 0-900 [facility] Comment on above: Performed By: #### G FR, CBC, ADIFF, CMP, ANEU #### [facility] [address] [place] [address] TROPHSon 01-06-2025 High Sensitivity Troponin I 98 ng/L High 0-34 [facility] Comment on above: Result Comment: High Sensitive Troponin I Reference Ranges: Female: 0-34 ng/L Male: 0-54 ng/L Testing performed on [employer] analyzer using direct chemiluminescent technology. Performed By: #### A BRENNA ZARAGOZA #### [facility] [address] [place] [address] TSHon 01-06-2025 TSH 9.905 mIU/mL High 0.550-4.780 [facility] Comment on above: Performed By: #### T SH ####[facility] [place] [address] URINALYSISon 01-06-2025 Amorphous NONE Normal [facility] Comment on above: Performed By: #### 2 50201 #### [facility],[address] [place] [address] Bacteria 1+ Normal [facility] Comment on above: Performed By: #### 2 64875 #### [facility],[address] [place] [address] Bilirubin Ql (U) Negative Normal NORMAL: NEGATIVE [facility] Comment on above: Performed By: #### 2 18878 #### [facility],[address] [place], [place] [id number] Casts NONE Normal [facility] Comment on above: Performed By: #### 2 81041 #### [facility],[address] [place], [place] [id number] Clarity (U) sl.cloudy Normal NORMAL: CLEAR [facility] Comment on above: Performed By: #### 2 61680 #### [facility],[address] [place], [place] [id number] Color (U) yellow Normal NORMAL: YELLOW [facility] Comment on above: Performed By: #### 2 49466 #### [facility],[address] [place] [address] Crystals LM Nom (Urine sed) NONE Normal [facility] Comment on above: Performed By: #### 2 39078 #### [facility],[address] [place] [address] Epi Cells MANY Normal [facility] Comment on above: Performed By: #### 2 57385 #### [facility],[address] [place] [address] Glucose Ql (U) NORM Normal NORMAL: NORMAL [facility] Comment on above: Performed By: #### 2 44450 #### [facility],[address] [place] [address] Hemoglobin Ql (U) 10 Abnormal NORMAL: NEGATIVE [facility] Comment on above: Performed By: #### 2 85562 #### [facility],[address] [place] [address] Ketone Negative Normal NORMAL: NEGATIVE [facility] Comment on above: Performed By: #### 2 40876 #### [facility],[address] [place] [address] Leukocytes Negative Normal NORMAL: NEGATIVE [facility] Comment on above: Performed By: #### 2 38991 #### [facility],[address] [place] [address] Mucous 2+ Normal [facility] Comment on above: Performed By: #### 2 92289 #### [facility],[address] [place] [address] Nitrite Ql (U) Negative Normal NORMAL: NEGATIVE [facility] Comment on above: Performed By: #### 2 40809 #### [facility],[address] [place] [address] pH (U) 8 [pH] Normal NORMAL: 5.0-8.0 [facility] Comment on above: Performed By: #### 2 37371 #### [facility],[address] [place] [address] Protein Ql (U) 100 Abnormal NORMAL: NEGATIVE [facility] Comment on above: Performed By: #### 2 96927 #### [facility],[address] [place] [address] Rbc 0-5 Normal 0-3/hpf [facility] Comment on above: Performed By: #### 2 98967 #### [facility],[address] [place] [address] Sp Stowell 1.015 Normal NORMAL: 1.010-1.030 [facility] Comment on above: Performed By: #### 2 62823 #### [facility],[address] [place] [address] Specimen Type R Normal [facility] Comment on above: Performed By: #### 2 70655 #### [facility],[address] [place] [address] Urinalysis dipstick W Reflex Microscopic panel (U) SEE BELOW Normal [facility] Comment on above: Result Comment: MICR OSCOPIC Performed By: #### 2 04249 #### [facility],[address] [place] [address] Urobilinog 1 Abnormal NORMAL: NORMAL [facility] Comment on above: Performed By: #### 2 77132 #### [facility],[address] [place] [address] Wbc 1-5 Normal 0-5/hpf [facility] Comment on above: Performed By: #### 2 96651 #### [facility],[address] [place] [address] Yeast NONE Normal [facility] Comment on above: Performed By: #### 2 35458 #### [facility],[address] [place] [address] CBC + DIFFon 01-05-2025 Baso # 0.02 x10EE3/UL Normal 0.00 - 0.10 [facility] Comment on above: Performed By: #### 2 93880 #### [facility],[address] [place] [address] Basophils/100 WBC (Bld) 0.3 % Normal 0.0 - 2.0 [facility] Comment on above: Performed By: #### 2 10888 #### [place] [address] CBC + DIFF Normal [facility] Comment on above: Result Comment: CBC- COMPLETE BLOOD COUNT Performed By: #### 2 69266 #### [facility],[address] [place] [address] EO # 0.17 x10EE3/UL Normal 0.00 - 0.50 [facility] Comment on above: Performed By: #### 2 26818 #### [place] [address] Eosinophils/100 WBC (Bld) 2.2 % Normal 0.0 - 7.0 [facility] Comment on above: Performed By: #### 2 64875 #### [facility],[address] [place] [address] Erythrocyte distribution width (RBC) [Ratio] 15.0 % Normal 12.0 - 15.6 [facility] Comment on above: Performed By: #### 2 61161 #### [facility],[address] [place] [address] Hematocrit (Bld) [Volume fraction] 25.5 % Low 34.0 - 46.0 [facility] Comment on above: Performed By: #### 2 54460 #### [facility],[address] [place] [address] Hemoglobin (Bld) [Mass/Vol] 8.8 g/dL Low 12.0 - 16.0 [facility] Comment on above: Performed By: #### 2 75683 #### [facility],[address] [place] [address] Lymph # 1.51 x10EE3/UL Normal 0.80 - 2.80 [facility] Comment on above: Performed By: #### 2 66312 #### [facility],[address] [place] [address] Lymphocytes/100 WBC (Bld) 19.2 % Low 20.0 - 45.0 [facility] Comment on above: Performed By: #### 2 57334 #### [facility],[address] [place] [address] MANUAL DIFF N/A Normal [facility] Comment on above: Performed By: #### 2 31434 #### [facility],[address] [place] [address] MCH (RBC) [Entitic mass] 34 pg High 27 - 33 [facility] Comment on above: Performed By: #### 2 77431 #### [facility],[address] [place] [address] MCHC 34 X10 3 Normal 32 - 36 [facility] Comment on above: Performed By: #### 2 72110 #### [facility],[address] [place] [address] MCV (RBC) [Entitic vol] 98 fL Normal 80 - 99 [facility] Comment on above: Performed By: #### 2 66814 #### [facility],[address] [place] [address] Nome # 0.55 x10EE3/UL Normal 0.20 - 1.00 [facility] Comment on above: Performed By: #### 2 03745 #### [facility],[address] [place] [address] MONOS % 7.0 % Normal 0.0 - 10.0 [facility] Comment on above: Performed By: #### 2 14256 #### [place] [address] Morphology Matt (Bld) [Interp] N/A Normal [facility] Comment on above: Performed By: #### 2 90453 #### [place] [address] Neut # 5.62 x10EE3/UL Normal 1.50 - 7.10 [facility] Comment on above: Performed By: #### 2 19922 #### [facility],[address] [place] [address] Neutrophils/100 WBC (Bld) 71.3 % Normal 46.0 - 76.0 [facility] Comment on above: Performed By: #### 2 60301 #### [facility],[address] [place] [address] 52358 PLATELET 238 x10EE3/UL Normal 150 - 450 [facility] Comment on above: Performed By: #### 2 51963 #### [facility],[address] [place] [address] 21284 Platelet mean volume (Bld) [Entitic vol] 6.8 fL Normal 6.6 - 10.5 [facility] Comment on above: Result Comment: AUTO MATED DIFFERENTIAL Performed By: #### 2 30885 #### [facility],[address] [place] [address] 08237 RBC 2.60 x 10EE6/UL Low 4.10 - 5.30 [facility] Comment on above: Performed By: #### 2 42844 #### [facility],[address] [place] [address] 51618 WBC 7.9 x 10EE3/UL Normal 4.5 - 10.8 [facility] Comment on above: Performed By: #### 2 03352 #### [facility],[address] [place] [address] 45066 CHEST 1 VIEWon 01-05-2025 CHEST 1 VIEW [place] [address] Patient: MARCOS SHELTON Phone#: : 1950 Age: 74 Gender: F Pt. Type: ER Account: [id number] Location: [facility] Ordering: RUFUS TORRES Exam Date: 01/05/2025/16:27 Family Phys: BELL MAHER Charge Code: 668278 Physician: [place] Order #: [id number] Dose#: PROCEDURE: X-RAY CHEST 1 VIEW COMPARISON: [facility] XR, CHEST 2 VIEWS, 04/14/2022, 17:19. INDICATIONS: Chest pain. FINDINGS: LUNGS: Normal. No significant pulmonary parenchymal abnormalities. VASCULATURE: Normal. Unremarkable pulmonary vasculature. CARDIAC: Normal. No cardiac silhouette abnormality or cardiomegaly. MEDIASTINUM: Normal. No visible mass or adenopathy. PLEURA: Normal. No effusion or pleural thickening. BONES: Surgical hardware is present at the lower cervical spine. OTHER: Negative. CONCLUSION: No acute disease. No significant change has occurred. Dictated by: Elizabeth Tariq MD on 01/05/2025 at 16:48 Approved by: Elizabeth Tariq MD on 01/05/2025 at 16:57 Normal [facility] CMP with eGFRon 01-05-2025 AGE 74 years Normal [facility] Comment on above: Performed By: #### 2 92833 #### [facility],[address] [place] [address] 67719 Albumin [Mass/Vol] 2.7 g/dL Low 3.4 - 5.0 [facility] Comment on above: Performed By: #### 2 54798 #### [facility],[address] [place] [address] 56006 Albumin/Globulin [Mass ratio] 0.6 {ratio} Low 0.9 - 1.6 [facility] Comment on above: Performed By: #### 2 20297 #### [facility],[address] [place] [address] 93266 ALK PHOS 90 U/L Normal 46 - 116 [facility] Comment on above: Performed By: #### 2 10119 #### [facility],[address] [place] [address] 18147 ALT [Catalytic activity/Vol] 27 U/L Normal 16 - 63 [facility] Comment on above: Performed By: #### 2 35637 #### [facility],[address] [place] [address] 74430 Anion gap [Moles/Vol] 15 mmol/L Normal 10 - 20 [facility] Comment on above: Performed By: #### 2 22730 #### [facility],[address] [place] [address] 20511 AST [Catalytic activity/Vol] 33 U/L Normal 13 - 39 [facility] Comment on above: Performed By: #### 2 40525 #### [facility],[address] [place] [address] 38734 B/C RATIO 6 ratio Normal 0 - 30 [facility] Comment on above: Performed By: #### 2 49538 #### [facility],[address] [place] [address] 62309 Bilirubin [Mass/Vol] 0.5 mg/dL Normal 0.2 - 1.0 [facility] Comment on above: Performed By: #### 2 41954 #### [facility],[address] [place] [address] 69688 Calcium [Mass/Vol] 8.9 mg/dL Normal 8.5 - 10.1 [facility] Comment on above: Performed By: #### 2 77540 #### [facility],[address] [place] [address] 44283 Chloride [Moles/Vol] 96 mmol/L Low 98 - 107 [facility] Comment on above: Performed By: #### 2 69097 #### [facility],[address] [place] [address] 26627 CMP with eGFR Normal [facility] Comment on above: Result Comment: COMP REHENSIVE METABOLIC PANEL Performed By: #### 2 69842 #### [facility],[address] [place] [address] 11150 CO2 [Moles/Vol] 28.2 mmol/L Normal 21.0 - 32.0 [facility] Comment on above: Performed By: #### 2 09629 #### [facility],[address] [place] [address] 12164 Creatinine [Mass/Vol] 3.35 mg/dL High 0.55 - 1.02 [facility] Comment on above: Performed By: #### 2 32852 #### [facility],[address] [place] [address] 73120 eGFR 14 ML/MINUTE Low 60 - 999 [facility] Comment on above: Performed By: #### 2 57708 #### [facility],[address] [place] [address] 41949 eGFR(AA) 16 ML/MINUTE Low 60 - 999 [facility] Comment on above: Result Comment: ACCO RDING TO THE NATIONAL KIDNEY DISEASE EDUCATION PROGRAM(NKDE), A NORMAL eGFR IS A VALUE GREATER THAN OR EQUAL TO 60 ML/MIN/1.73 SQ METERS. CHRONIC KIDNEY DISEASE: <60mL/MIN/1.73 SQ METERS KIDNEY FAILURE: <15mL/MIN/1.73 SQ METERS THIS TEST SHOULD ONLY BE USED FOR PATIENTS 18 YEARS OF AGE AND OLDER. Performed By: #### 2 02633 #### [facility],[address] [place] [address] 19634 Globulin (S) [Mass/Vol] 4.6 g/dL High 1.5 - 3.8 [facility] Comment on above: Performed By: #### 2 70919 #### [facility],[address] [place] [address] 60203 Glucose [Mass/Vol] 128 mg/dL High 74 - 106 [facility] Comment on above: Performed By: #### 2 40656 #### [address] [address] Potassium [Moles/Vol] 3.7 mmol/L Normal 3.5 - 5.1 [facility] Comment on above: Performed By: #### 2 25162 #### [address] [address] Protein [Mass/Vol] 7.3 g/dL Normal 6.4 - 8.2 [facility] Comment on above: Performed By: #### 2 75227 #### [facility],[address] [place], [place] [id number] Sodium [Moles/Vol] 135 mmol/L Low 136 - 145 [facility] Comment on above: Performed By: #### 2 23415 #### [facility],[address] [place] [address] 30432 Urea nitrogen [Mass/Vol] 19 mg/dL High 7 - 18 [facility] Comment on above: Performed By: #### 2 04531 #### [facility],[address] [place], [place] [id number] CULTURE BLOOD [NISH]on Microscopic examination of blood, culture CULTURE BLOOD [NISH] _BLOOD CULTURE_ GO TO CPSI REPORTS AND ATTACHMENTS FOR SCANNED REPORT 01/12/25.0911.DNP.COMPLETE Normal [facility] Comment on above: Performed By: #### 2 99022 ####[facility],[address] [place], [place] [id number] Microscopic examination of blood, culture CULTURE BLOOD [NISH] _BLOOD CULTURE_ GO TO CPSI REPORTS AND ATTACHMENTS FOR SCANNED REPORT 01/12/25.0910.DNP.COMPLETE Normal [facility] Comment on above: Performed By: #### 2 33294 ####[facility],[address] [place], [place] [id number] CULTURE WOUND [NISH]on CULTURE WOUND [NISH] CULTURE WOUND [NISH] _WOUND CULTURE_ GO TO CPSI REPORTS AND ATTACHMENTS FOR SCANNED REPORT 01/12/25.1003.DNP.[facility] Comment on above: Performed By: #### 2 26279 ####[facility],[address] [place], [place] [id number] NT-proBNPon 01-05-2025 Natriuretic peptide B (Bld) [Mass/Vol] 3132 pg/mL High 0 - 125 [facility] Comment on above: Performed By: #### 2 31047 #### [facility],[address] [place] [address] TROPONINon 01-05-2025 HS TROPONIN 127.7 pg/mL Critically high 0.0 - 51.4 [facility] Comment on above: Result Comment: { CA LLED TO REN HAMMER BY SO AT 18:51 { READ BACK BY REN HAMMER RA AT 18:52 Performed By: #### 2 54319 #### [facility],[address] [place] [address] HS TROPONIN 139.3 pg/mL Critically high 0.0 - 51.4 [facility] Comment on above: Result Comment: { CA LLED TO REN ZULETA BY CB AT 1707 { READ BACK BY REN ZULETA RA AT 1705 Performed By: #### 2 72297 ####[facility],[address] [place] [address] TSHon 01-05-2025 TSH Qn 11.78 m[IU]/L High 0.35 - 3.74 [facility] Comment on above: Performed By: #### 2 66329 #### [place] [address] XR CHEST 2 VIEWSon XR CHEST 2 VIEWS ORIGINAL EXAMINATION: TWO XRAY VIEWS OF THE CHEST01/04/2025 11:24 am COMPARISON: 09/26/2024 HISTORY: ORDERING SYSTEM PROVIDED HISTORY: Reason for Exam: Shortness of breath FINDINGS: Cardiomediastinal silhouette is stable.Atherosclerotic aorta. No focal consolidation, pleural effusion, pulmonary edema or pneumothorax. No acute osseous findings. Multilevel degenerative changes of the spine. Right shoulder arthroplasty ACDF hardware. Surgical clips project along the left upper extremity soft tissues. IMPRESSION: No acute radiographic findings. I have personally reviewed the images of this examination and agree with the resident's findings and interpretation. Interpreted by: Michael Bass MD Preliminary Report By: Angel Sharma Electronically signed By Michael Bass MD Dictated Date: 01/05/2025 11:39:17 AM Prelim Date: 01/05/2025 12:07:17 PM Sign Date: 01/05/2025 12:07:17 PM Ordering Provider: BELL Brito [facility] .Auto Diffon 01-04-2025 Basophil, Absolute 0.1 10 3/mcL Normal 0.0-0.3 [facility] Comment on above: Performed By: #### L IPID, GFR, CMP, A1C, TSH #### [address] [address] Basophils/100 WBC (Bld) 0.9 % Normal 0.0-2.5 [facility] Comment on above: Performed By: #### L IPID, GFR, CMP, A1C, TSH #### [address] [address] Eosinophil, Absolute 0.1 10 3/mcL Normal 0.0-0.7 [facility] Comment on above: Performed By: #### L IPID, GFR, CMP, A1C, TSH #### [address] [address] Eosinophils/100 WBC (Bld) 1.4 % Normal 0.0-6.0 [facility] Comment on above: Performed By: #### L IPID, GFR, CMP, A1C, TSH #### [address] [address] Lymphocyte, Absolute 1.6 10 3/mcL Normal 0.9-4.3 [facility] Comment on above: Performed By: #### L IPID, GFR, CMP, A1C, TSH #### [address] [address] Lymphocytes/100 WBC (Bld) 18.9 % Low 20.0-40.0 [facility] Comment on above: Performed By: #### L IPID, GFR, CMP, A1C, TSH #### [address] [address] Monocyte, Absolute 0.7 10 3/mcL Normal 0.1-1.4 [facility] Comment on above: Performed By: #### L IPID, GFR, CMP, A1C, TSH #### [address] [address] Monocytes/100 WBC (Bld) 8.2 % Normal 2.0-13.0 [facility] Comment on above: Performed By: #### L IPID, GFR, CMP, A1C, TSH #### [address] [address] Neutrophils/100 WBC (Bld) 70.6 % Normal 50.0-75.0 [facility] Comment on above: Performed By: #### L IPID, GFR, CMP, A1C, TSH #### [address] [address] .GFRon 01-04-2025 Estimated Glomerular Filtration Rate 10 ml/min/1.73sqm Normal [facility] Comment on above: Result Comment: Stages of Chronic Kidney Disease (CKD) Stage Description eGFR(ml/min/1.73 sq.m.) CKD 1 Normal kidney function or >=90 normal kindney function with possible kidney damage (ex. Proteinuria) CKD 2 Kidney damage with mild loss 60-89 of kidney function CKD 3a Mild to moderate loss of kidney 45-59 function CKD 3b Moderate to severe loss of 30-44 of kindey function CKD 4 Severe loss of kidney function 15-29 CKD 5 Kidney failure <15 Note: (go live 2024) the eGFR calculation was updated to the 2020 CKD-EPI creatinine equation without a race factor to calculate the eGFR results. Performed By: #### L IPID, GFR, CMP, A1C, TSH #### [address] [address] .NEUABSon 01-04-2025 Neutrophil, Absolute 5.8 10 3/mcL Normal 2.3-8.1 [facility] Comment on above: Performed By: #### L IPID, GFR, CMP, A1C, TSH #### [place] [address] [place], [place] [address] CBCon 01-04-2025 Erythrocyte distribution width (RBC) [Ratio] 16.6 % High 11.5-15.5 [facility] Comment on above: Performed By: #### L IPID, GFR, CMP, A1C, TSH #### [address] [address] Hematocrit (Bld) [Volume fraction] 26.3 % Low 34.0-46.0 [facility] Comment on above: Performed By: #### L IPID, GFR, CMP, A1C, TSH #### [address] [address] Hgb 8.7 G/dL Low 12.0-16.0 [facility] Comment on above: Performed By: #### L IPID, GFR, CMP, A1C, TSH #### [address] [address] MCH (RBC) [Entitic mass] 33.5 pg High 27.0-33.0 [facility] Comment on above: Performed By: #### L IPID, GFR, CMP, A1C, TSH #### [address] [address] MCHC 33.3 G/dL Normal 32.0-36.0 [facility] Comment on above: Performed By: #### L IPID, GFR, CMP, A1C, TSH #### [address] [address] MCV (RBC) [Entitic vol] 100.6 fL High 80.0-99.0 [facility] Comment on above: Performed By: #### L IPID, GFR, CMP, A1C, TSH #### [address] [address] Platelet 283 10 3/mcL Normal 150-450 [facility] Comment on above: Performed By: #### L IPID, GFR, CMP, A1C, TSH #### [address] [address] Platelet mean volume (Bld) [Entitic vol] 7.2 fL Normal 6.6-10.5 [facility] Comment on above: Performed By: #### L IPID, GFR, CMP, A1C, TSH #### [address] [address] RBC 2.61 10 6/mcL Low 4.10-5.30 [facility] Comment on above: Performed By: #### L IPID, GFR, CMP, A1C, TSH #### [address] [address] WBC 8.3 10 3/mcL Normal 4.5-10.8 [facility] Comment on above: Performed By: #### L IPID, GFR, CMP, A1C, TSH #### [address] [address] CMPon 01-04-2025 Albumin Level 2.8 G/dL Low 3.4-4.8 [facility] Comment on above: Performed By: #### L IPID, GFR, CMP, A1C, TSH #### [address] [address] Albumin/Globulin [Mass ratio] 0.6 {ratio} Low 1.1-2.5 [facility] Comment on above: Performed By: #### L IPID, GFR, CMP, A1C, TSH #### [address] [address] ALP [Catalytic activity/Vol] 88 U/L Normal 40-135 [facility] Comment on above: Performed By: #### L IPID, GFR, CMP, A1C, TSH #### [address] [address] ALT [Catalytic activity/Vol] 25 U/L Normal 14-59 [facility] Comment on above: Performed By: #### L IPID, GFR, CMP, A1C, TSH #### [address] [address] AST [Catalytic activity/Vol] 32 U/L Normal 10-40 [facility] Comment on above: Performed By: #### L IPID, GFR, CMP, A1C, TSH #### [address] [address] Bili Total 0.5 mg/dL Normal 0.2-1.0 [facility] Comment on above: Result Comment: Use of this assay is not recommended for patients undergoing treatment with eltrombopag due to the potential for falsely elevated results. Performed By: #### L IPID, GFR, CMP, A1C, TSH #### [address] [address] BUN/Creatinine Ratio 7 ratio Normal 7-27 [facility] Comment on above: Performed By: #### L IPID, GFR, CMP, A1C, TSH #### [address] [address] Calcium [Mass/Vol] 9.4 mg/dL Normal 8.4-10.2 [facility] Comment on above: Performed By: #### L IPID, GFR, CMP, A1C, TSH #### [address] [address] Chloride [Moles/Vol] 96 mmol/L Low 98-107 [facility] Comment on above: Performed By: #### L IPID, GFR, CMP, A1C, TSH #### [address] [address] CO2 [Moles/Vol] 28 mmol/L Normal 23-31 [facility] Comment on above: Performed By: #### L IPID, GFR, CMP, A1C, TSH #### [address] [address] Creatinine [Mass/Vol] 4.45 mg/dL High 0.51-0.95 [facility] Comment on above: Performed By: #### L IPID, GFR, CMP, A1C, TSH #### [address] [address] Electrolyte Balance 12.0 mEq/L Normal 4.0-15.0 [facility] Comment on above: Performed By: #### L IPID, GFR, CMP, A1C, TSH #### [address] [address] Globulin 4.4 G/dL Normal 2.7-4.4 [facility] Comment on above: Performed By: #### L IPID, GFR, CMP, A1C, TSH #### [address] [address] Glucose [Mass/Vol] 100 mg/dL Normal 83-110 [facility] Comment on above: Performed By: #### L IPID, GFR, CMP, A1C, TSH #### [address] [address] Potassium [Moles/Vol] 3.7 mmol/L Normal 3.5-5.1 [facility] Comment on above: Performed By: #### L IPID, GFR, CMP, A1C, TSH #### [address] [address] Sodium [Moles/Vol] 136 mmol/L Normal 136-145 [facility] Comment on above: Performed By: #### L IPID, GFR, CMP, A1C, TSH #### [place] [address] Total Protein 7.2 G/dL Normal 6.4-8.2 [facility] Comment on above: Performed By: #### L IPID, GFR, CMP, A1C, TSH #### [address] [address] Urea nitrogen [Mass/Vol] 33 mg/dL High 7-18 [facility] Comment on above: Performed By: #### L IPID, GFR, CMP, A1C, TSH #### [address] [address] FT4on 01-04-2025 Free T4 [Mass/Vol] 0.70 ng/dL Low 0.76-1.46 [facility] Comment on above: Performed By: #### L IPID, GFR, CMP, A1C, TSH #### [address] [address] LABORATORYOrdered By: SYSTEM SYSTEM on 01-04-2025 Natriuretic peptide.B prohormone N-Terminal [Mass/Vol] 3601 pg/mL High 0 - 125 pg/mL AO ADM SS Comment on above: Interpretive Data: N T-proBNP results of less than 300 pg/mL effectively rules out acute congestive heart failure with 99% negative predictive value. Albumin BCP dye [Mass/Vol] 2.8 G/dL Low 3.4 - 4.8 G/dL AO ADM SS Albumin/Globulin [Mass ratio] 0.6 {ratio} Low 1.1 - 2.5 ratio AO ADM SS ALP [Catalytic activity/Vol] 88 U/L Normal 40 - 135 U/L AO ADM SS ALT With P-5'-P [Catalytic activity/Vol] 25 U/L Normal 14 - 59 U/L AO ADM SS AST With P-5'-P [Catalytic activity/Vol] 32 U/L Normal 10 - 40 U/L AO ADM SS Basophils (Bld) [#/Vol] 0.1 103/mcL Normal 0.0 - 0.3 10^3/mcL AO Workflow SS Basophils/100 WBC (Bld) 0.9 % Normal 0.0 - 2.5 % AO Workflow SS Bilirubin [Mass/Vol] 0.5 mg/dL Normal 0.2 - 1 .0 mg/dL AO ADM SS Comment on above: Interpretive Data: U se of this assay is not recommended for patients undergoing treatment with eltrombopag due to the potential for falsely elevated results. Calcium [Mass/Vol] 9.4 mg/dL Normal 8.4 - 10. 2 mg/dL AO ADM SS Chloride [Moles/Vol] 96 mmol/L Low 98 - 10 7 mmol/L AO ADM SS CO2 [Moles/Vol] 28 mmol/L Normal 23 - 31 mmol/L AO ADM SS Creatinine [Mass/Vol] 4.45 mg/dL High 0.51 - 0.95 mg/dL AO ADM SS Electrolyte Balance 12.0 mEq/L Normal 4.0 - 15 .0 mEq/L AO ADM SS Eosinophil, Absolute 0.1 103/mcL Normal 0.0 - 0 .7 10^3/mcL AO Workflow SS Eosinophils/100 WBC (Bld) 1.4 % Normal 0.0 - 6.0 % AO Workflow SS Erythrocyte distribution width (RBC) [Ratio] 16.6 % High 11.5 - 15.5 % AO Workflow SS Estimated Glomerular Filtration Rate 10 ml/min/1.73sqm Invalid Interpretation Code AO Chemistry S Comment on above: Interpretive Data: Stages of Chronic Kidney Disease (CKD) Stage Description eGFR(ml/min/1.73 sq.m.) CKD 1 Normal kidney function or >=90 normal kindney function with possible kidney damage (ex. Proteinuria) CKD 2 Kidney damage with mild loss 60-89 of kidney function CKD 3a Mild to moderate loss of kidney 45-59 function CKD 3b Moderate to severe loss of 30-44 of kindey function CKD 4 Severe loss of kidney function 15-29 CKD 5 Kidney failure <15 Note: (go live 2024) the eGFR calculation was updated to the 2020 CKD-EPI creatinine equation without a race factor to calculate the eGFR results. Free T4 [Mass/Vol] 0.70 ng/dL Low 0.76 - 1. 46 ng/dL AO ADM SS Globulin 4.4 G/dL Normal 2.7 - 4.4 G/dL AO ADM SS Glucose [Mass/Vol] 100 mg/dL Normal 83 - 110 mg/dL AO ADM SS Hematocrit (Bld) [Volume fraction] 26.3 % Low 34.0 - 46.0 % AO Workflow SS Hemoglobin (Bld) [Mass/Vol] 8.7 G/dL Low 12.0 - 16.0 G/dL AO Workflow SS Lymphocytes (Bld) [#/Vol] 1.6 103/mcL Normal 0.9 - 4.3 10^3/mcL AO Workflow SS Lymphocytes/100 WBC (Bld) 18.9 % Low 20.0 - 40.0 % AO Workflow SS MCH (RBC) [Entitic mass] 33.5 pg High 27.0 - 33.0 pg AO Workflow SS MCHC 33.3 G/dL Normal 32.0 - 36.0 G/dL AO Workflow SS MCV (RBC) [Entitic vol] 100.6 fL High 80.0 - 99.0 fL AO Workflow SS Monocytes (Bld) [#/Vol] 0.7 103/mcL Normal 0.1 - 1.4 10^3/mcL AO Workflow SS Monocytes/100 WBC (Bld) 8.2 % Normal 2.0 - 13.0 % AO Workflow SS Neutrophils (Bld) [#/Vol] 5.8 103/mcL Normal 2.3 - 8.1 10^3/mcL AO Workflow SS Neutrophils/100 WBC (Bld) 70.6 % Normal 50.0 - 75.0 % AO Workflow SS Platelet mean volume (Bld) [Entitic vol] 7.2 fL Normal 6.6 - 10.5 fL AO Workflow SS Platelets (Bld) [#/Vol] 283 103/mcL Normal 150 - 450 10^3/mcL AO Workflow SS Potassium [Moles/Vol] 3.7 mmol/L Normal 3.5 - 5.1 mmol/L AO ADM SS Prealbumin [Mass/Vol] 32.0 mg/dL Normal 10.0 - 40.0 mg/dL AH ADM SS Comment on above: Interpretive Data: * *Note - New Reference Range in effect 20 Protein [Mass/Vol] 7.2 G/dL Normal 6.4 - 8.2 G/dL AO ADM SS RBC (Bld) [#/Vol] 2.61 106/mcL Low 4.10 - 5.3 0 10^6/mcL AO Workflow SS Sodium [Moles/Vol] 136 mmol/L Normal 136 - 145 mmol/L AO ADM SS Troponin I.cardiac DL <= 0.01 ng/mL [Mass/Vol] 332 ng/L High 0 - 51 ng/L AO ADM SS Comment on above: Interpretive Data: H igh Sensitive Troponin I Reference Ranges: Female: 0-51 ng/L Male: 0-76 ng/L Testing performed on Clerk using a homogeneous sandwich chemiluminescent immunoassay based on Agilvax technology. TSH Qn 7.60 m[IU]/L High 0.36 - 3.74 mcIU/mL AO ADM SS Urea nitrogen [Mass/Vol] 33 mg/dL High 7 - 18 mg/dL AO ADM SS Urea nitrogen/Creatinine [Mass ratio] 7 ratio Normal 7 - 27 ratio AO ADM SS WBC (Bld) [#/Vol] 8.3 103/mcL Normal 4.5 - 10.8 10^3/mcL AO Workflow SS PBNPon 01-04-2025 Natriuretic peptide B (Bld) [Mass/Vol] 3601 pg/mL High 0-125 [facility] Comment on above: Result Comment: NT-p roBNP results of less than 300 pg/mL effectively rules out acute congestive heart failure with 99% negative predictive value. Performed By: #### L IPID, GFR, CMP, A1C, TSH #### [place] [id number] [place] [id number] PRALBon 01-04-2025 Prealbumin [Mass/Vol] 32.0 mg/dL Normal 10.0-40.0 [facility] Comment on above: Result Comment: No te - New Reference Range in effect 20 Performed By: #### L IPID, GFR, CMP, A1C, TSH #### [address] [address] TROPHSon 01-04-2025 High Sensitivity Troponin I 332 ng/L High 0-51 [facility] Comment on above: Result Comment: High Sensitive Troponin I Reference Ranges: Female: 0-51 ng/L Male: 0-76 ng/L Testing performed on Clerk using a homogeneous sandwich chemiluminescent immunoassay based on Agilvax technology. Performed By: #### L IPID, GFR, CMP, A1C, TSH #### [address] [address] TSHon 01-04-2025 TSH Qn 7.60 m[IU]/L High 0.36-3.74 [facility] Comment on above: Performed By: #### L IPID, GFR, CMP, A1C, TSH #### [address] [address] AMPICILLIN:SUSC:PT:ISOLATE:O RDQN:MICon 12-20-2024 Ampicillin PRISCILLA [Susc] Heavy Methicillin-Resistant Staphylococcus aureus This staphylococci does not demonstrate inducible clindamycin resistance in vitro. 1 colony Shewanella putrefaciens [facility] Work Phone: Ampicillin PRISCILLA [Susc]on 11-23 GS 2+ Red Blood Cells 2+ Polymorphonuclear cells 1+ Gram Positive Cocci [facility] Work Phone: Methicillin-Resistant Staphylococcus aureus Methicillin-Resistant Staphylococcus aureus [facility] Work Phone: Shewanella putrefaciens Shewanella putrefaciens [facility] Work Phone: HEP B SURFACE AG [CCL]on Hepatitis B Surf. Ag Negative Normal Negative [facility] Comment on above: Result Comment: [facility] [address] [place] [address] Luis Golden III, M.D. [id number] Performed By: #### 2 82941 #### [facility],[address] [place] [address] BUNon 12-15-2024 Urea nitrogen [Mass/Vol] 11 mg/dL Normal [facility] Comment on above: Performed By: #### 2 44786 #### [facility],[address] [place] [address] Urea nitrogen [Mass/Vol] 45 mg/dL High - [facility] Comment on above: Performed By: #### 2 24552 #### [facility],[address] [place] [address] CBC + DIFFon 12-15-2024 Baso # 0.03 x10EE3/UL Normal 0.00 - 0.10 [facility] Comment on above: Performed By: #### 2 66725 #### [facility],[address] [place] [address] Basophils/100 WBC (Bld) 0.3 % Normal 0.0 - 2.0 [facility] Comment on above: Performed By: #### 2 33794 #### [facility],[address] [place] [address] 62896 CBC + DIFF Normal [facility] Comment on above: Result Comment: CBC- COMPLETE BLOOD COUNT Performed By: #### 2 78577 #### [facility],[address] [place] [address] 92972 CELL COUNT 100 Normal [facility] Comment on above: Performed By: #### 2 64289 #### [facility],[address] [place] [address] 69926 EO 2.0 % Normal 0.0 - 7.0 [facility] Comment on above: Performed By: #### 2 15337 #### [facility],[address] [place] [address]143 EO # 0.32 x10EE3/UL Normal 0.00 - 0.50 [facility] Comment on above: Performed By: #### 2 46567 #### [facility],[address] [place] [address] 35459 Eosinophils/100 WBC (Bld) 3.0 % Normal 0.0 - 7.0 [facility] Comment on above: Performed By: #### 2 88748 #### [facility],[address] [place] [address] 02838 Erythrocyte distribution width (RBC) [Ratio] 14.7 % Normal 12.0 - 15.6 [facility] Comment on above: Performed By: #### 2 47139 #### [address] [address] Hematocrit (Bld) [Volume fraction] 29.2 % Low 34.0 - 46.0 [facility] Comment on above: Performed By: #### 2 46113 #### [facility],[address] [place] [address] 92402 Hemoglobin (Bld) [Mass/Vol] 9.9 g/dL Low 12.0 - 16.0 [facility] Comment on above: Performed By: #### 2 31281 #### [facility],[address] [place] [address] 73577 Lymph # 1.61 x10EE3/UL Normal 0.80 - 2.80 [facility] Comment on above: Performed By: #### 2 16861 #### [facility],[address] [place] [address] 36000 Lymphocytes/100 WBC (Bld) 15.4 % Low 20.0 - 45.0 [facility] Comment on above: Performed By: #### 2 26448 #### [facility],[address] [place] [address] 97657 Lymphocytes/100 WBC (Bld) 17 % Low 20 - 45 [facility] Comment on above: Performed By: #### 2 10922 #### [facility],[address] [place] [address] MANUAL DIFF SEE BELOW Normal [facility] Comment on above: Performed By: #### 2 49514 #### [facility],[address] [place] [address] MCH (RBC) [Entitic mass] 33 pg Normal 27 - 33 [facility] Comment on above: Performed By: #### 2 53492 #### [facility],[address] [place] [address] MCHC 34 X10 3 Normal 32 - 36 [facility] Comment on above: Performed By: #### 2 88632 #### [facility],[address] [place] [address] MCV (RBC) [Entitic vol] 97 fL Normal 80 - 99 [facility] Comment on above: Performed By: #### 2 72610 #### [facility],[address] [place] [address] [place] # 0.73 x10EE3/UL Normal 0.20 - 1.00 [facility] Comment on above: Performed By: #### 2 22808 #### [facility],[address] [place] [address] MONOS 7 % Normal 0 - 10 [facility] Comment on above: Performed By: #### 2 36281 #### [facility],[address] [place], [place] [id number] MONOS % 7.0 % Normal 0.0 - 10.0 [facility] Comment on above: Performed By: #### 2 68345 #### [facility],[address] [place] [address] Morphology Matt (Bld) [Interp] NORMAL Normal [facility] Comment on above: Performed By: #### 2 72731 #### [facility],[address] [place] [address] 94619 Neut # 7.77 x10EE3/UL High 1.50 - 7.10 [facility] Comment on above: Performed By: #### 2 67373 #### [facility],[address] [place] [address] 09588 Neutrophils/100 WBC (Bld) 74.3 % Normal 46.0 - 76.0 [facility] Comment on above: Performed By: #### 2 83062 #### [facility],[address] [place] [address] 09212 PLATELET 258 x10EE3/UL Normal 150 - 450 [facility] Comment on above: Performed By: #### 2 32869 #### [facility],[address] [place] [address] 12107 Platelet mean volume (Bld) [Entitic vol] 7.6 fL Normal 6.6 - 10.5 [facility] Comment on above: Result Comment: AUTO MATED DIFFERENTIAL Performed By: #### 2 65522 #### [facility],[address] [place] [address] 81221 RBC 3.02 x 10EE6/UL Low 4.10 - 5.30 [facility] Comment on above: Performed By: #### 2 62893 #### [facility],[address] [place] [address] 17313 SEGS 74 % Normal 46 - 76 [facility] Comment on above: Performed By: #### 2 32142 #### [facility],[address] [place] [address]234 WBC 10.5 x 10EE3/UL Normal 4.5 - 10.8 [facility] Comment on above: Performed By: #### 2 96394 #### [facility],[address] [place] [address] 87076 HBV surface Ag Ser Qlon 11-22 HBV surface Ag Ql (S) Negative Normal Negative [facility] Comment on above: Order Comment: Speci men Type: BLOOD SPECIMEN Ordering Facility: [facility] Address: [address] [place] [address] Performed By: #### 5 195-3 #### [facility] CLIA [id number] [address] [place] [address] [place] [id number] [place] POTASSIUMon 12-15-2024 Potassium [Moles/Vol] 3.4 mmol/L Low 3.5 - 5.1 Randall farr [facility] Comment on above: Performed By: #### 2 16053 ####[facility],[address] [place] [address] MA MAMMOGRAM SCREENING BILAT ERAL W/TOMOon 12-11-2024 MA MAMMOGRAM SCREENING BILATERAL W/RHODA ORIGINAL FROM: [address] [address] PROCEDURE FOR: MARCOS SHELTON [address] [place] [id number] Home: PID#: [id number] Exam#: [id number] : 1950 Age: 74 TO: AD DAN DO [address] [place] [address] EXAMINATION: SCREENING DIGITAL BILATERAL MAMMOGRAM WITH TOMOSYNTHESIS, 12/06/2024 1:47 pm TECHNIQUE: Screening mammography of the bilateral breasts was performed with tomosynthesis. 2D standard and 3D tomosynthesis combination imaging performed through both breasts in the MLO and CC projection. Computer aided detection was utilized in the interpretation of this exam. Patient experienced difficulty with positioning. Best possible images were obtained. COMPARISON: July 03, 2020, October 18, 2014 HISTORY: Breast cancer screening. FINDINGS: BREAST DENSITY: The breasts are almost entirely fatty. There are bilateral benign-type calcifications. There is no significant mass, architectural distortion or microcalcification. Fibroglandular pattern is stable. IMPRESSION: No mammographic evidence of malignancy. Continued screening with annual mammograms is recommended. Tyrzoë Cuzick risk calculations, generated with the history provided, report this patient's 10 year risk and lifetime risk for developing breast cancer at 1.6% and 2.2%, respectively. Based on this assessment tool, if the patient's calculated lifetime risk is below 20%, then the patient is considered at average risk for developing breast cancer. If the patient's calculated lifetime risk is at or above 20%, then the patient is considered high risk for developing breast cancer and may be a candidate for supplemental breast MRI screening in addition to annual mammographic screening per the [place] [employer]. BIRADS: MAMMOGRAM BI-RADS: 2: Benign finding RECALL: 1 year screening RECALL TYPE: mammo LETTER SENT: Normal BI-RADS 1 and 2 Interpreted by: Naomie Lowery Preliminary Report By: Naomie Lowery Electronically signed By Naomie Lowery Dictated Date: 12/11/2024 12:16:58 PM Prelim Date: 12/11/2024 12:19:15 PM Sign Date: 12/11/2024 12:19:15 PM Ordering Provider: BELL MAHER copy to: BELL MAHER MD, ph: [phone], fax: NO FAX Manager Family: MELISSA HENRIQUEZ RT(R)(M)(CT) [employer] letter sent: Normal BI-RADS 1 and 2 Mammogram BI-RADS: 2 Benign Normal [facility] BD BONE DENSITY DEXA AXIAL S[place]LETON ORIGINAL EXAMINATION: BONE DENSITOMETRY 12/06/2024 2:43 pm TECHNIQUE: A bone density dual x-ray absorptiometry (DEXA) scan was performed of the axial (e.g. hips, spine) and/or appendicular (e.g. radius) skeleton as appropriate. COMPARISON: 05/27/2021. HISTORY: ORDERING SYSTEM PROVIDED HISTORY: Reason for Exam: Osteoporosis Screening FINDINGS: T Score Left Femoral Neck: -2.8 Left Femoral Neck: 0.539 (g/cm2) T Score Left Hip: -1.3 Left Hip: 0.784 (g/cm2) T Score Left Distal 1/3: -3.1 Left Distal 1/3: 0.502 (g/cm2) BMD Change from Previous Forearm 3.7% BMD % change from previous Hip: 19.0% IMPRESSION: Osteoporosis by WHO criteria. World Health Organization criteria: (Comparing with young normal sex matched population) - Normal: T-score at or above -1 SD (standard deviation) - Osteopenia: T-score between -1 and -2.5 SD - Osteoporosis: T-score at or below -2.5 SD The NOF recommends that FDA-approved medical therapies be considered in post-menopausal women and men age >/= 50 years with a: * Hip or vertebral fracture, or * T-score of /= 20% for major osteoporotic fractures or * >/= 3% for hip fractures All treatment decisions require clinical judgement and consideration of individual patient factors, including patient preferences, comorbidities, previous drug use, risk factors not captured in the FRAX registered model (e.g., frailty, falls, vitamin D deficiency, increased bone turnover, interval significant decline in bone density) and possible under- or over-estimation of fracture risk by FRAX. I have personally reviewed the images of this examination and agree with the resident's findings and interpretations. Interpreted by: Ye Hernandez DO Preliminary Report By: Margaret Rosa Electronically signed By Ye Hernandez DO Dictated Date: 12/06/2024 2:46:39 PM Prelim Date: 12/06/2024 3:10:40 PM Sign Date: 12/06/2024 3:10:40 PM Ordering Provider: BELL Brito [facility] Abd Aortic/IVC Duplex scanon 12-05-2024 Abd Aortic/IVC Duplex scan [facility] [address] [place] [address] Abd Aortic/IVC Duplex scan 12/05/24 0846 MR#: [id number] Acct: [id number] Name: MARCOS SHELTON Rep #: [id number] : 1950 74 From: Alden Hernández MD Attending Dr: Dr. Alden Hernández MD Status: DE P CLI Ordering Dr: Alden Hernádnez MD Date: 12/05/24 Location: [facility] Sex: F C Admitted: Reason For Study Reason For Study: Atherosclerosis Aorta Measurements Aorta Doppler Measurements Proximal aorta measures1.26 x 1.28cm. in cross-sectional Peak systolic flow velocities within the proximal aorta axis. measure 54.2 cm/sec. Proximal aorta measures1.23cm. in longitudinal axis. Peak systolic flow velocities within the mid aorta measure Mid aorta measures1.73 x 1.71cm. in cross-sectional axis. 66.9 cm/sec. Mid aorta measures1.70cm. in longitudinal axis. Peak systolic flow velocities within the distal aorta Distal aorta measures1.44 x 1.42cm. in cross-sectional axis.measure 74.1 cm/sec. Distal aorta measures1.40cm. in longitudinal axis. Left Iliac Artery Left iliac artery measures 0.73 x 0.71 cm. in the cross-sectional axis. Left iliac artery measures 0.75 cm. in the longitudinal axis. Peak systolic velocity in the left iliac artery measures 204.3 cm/sec. Right Iliac Artery Right iliac artery measures 0.84 x 0.86 cm. in the cross-sectional axis. Right iliac artery measures 0.75 cm. in the longitudinal axis. Peak systolic velocity in the right iliac artery measures 66.9 cm/sec. Procedure Aorta IVC Iliac vasculature or bypass grafts 99080. Technically difficult study due to bowel gas. Exam performed in department. VL/Abd Aortic/IVC Duplex scan Interpretation Summary No aortic anurysm. Mild left SHANIKA stenosis otherwise normal. Ordering Physician: Alden Hernández Referring Physician: Bell Maher Performed By: Michael Shipman RVT 12/13/24841 Date Alden Hernández MD CC: Dr. Alden Hernández MD; Dr. Bell Maher MD Date Dictated: 12/05/2446 Date Transcribed: 12/13/24841 Presentation Team Member: Perfecto [facility] Ankle Brachial Indexon 12-05 Ankle Brachial Index [facility] [place] [address] Ankle Brachial Index 12/05/24 0846 MR#: [id number] Acct: [id number] Name: MARCOS SHELTON Rep #: [id number] : 1950 74 From: Alden Hernández MD Attending Dr: Dr. Alden Hernández MD Status: DE P CLI Ordering Dr: Alden Hernández MD Date: 12/05/24 Location: [facility] Sex: F C Admitted: Reason For Study Reason For Study: Atherosclerosis Procedure A bilateral lower extremity continuous wave Doppler with analog waveform analysis and ankle brachial indexes. Left Segmental Pressures Left brachial= 125mmHg. Left posterior tibial artery = >254mmHg. Left dorsalis pedis artery = 102mmHg. Left digit = 52 mmHg. The left thigh waveforms are triphasic. The left calf waveforms are triphasic. Right Segmental Pressures Right posterior tibial artery = >254mmHg. Right dorsalis pedis artery = >254mmHg. Right digit = 64 mmHg. The right dorsalis pedis waveforms are triphasic. The right posterior tibial artery waveforms are triphasic. Indices The right ankle brachial index by the dorsalis pedis is NC. The right ankle brachial index by the posterior tibial artery is NC. The right digital-brachial index is 0.51. The left ankle brachial index by the dorsalis pedis is 0.82. The left ankle brachial index by the posterior tibial artery is NC. The left digital-brachial index is 0.42. VL/Ankle Brachial Index Interpretation Summary Bilateral NC but nor,mal waveform and triphasic flow. Ordering Physician: Alden Hernández Referring Physician: Bell Maher Performed By: Michael Shipman RVT 12/13/2444 Date Alden Hernández MD CC: Dr. Alden Hernández MD; Dr. Bell Maher MD Date Dictated: 12/05/24845 Date Transcribed: 12/13/24843 Presentation Team Member: Signed Normal [facility] F8on 11-07-2024 Factor VIII 260 % of Normal High 76-211 [facility] Comment on above: Performed By: #### G FR, CBC, ADIFF, CMP, ANEU #### [place] [address] IFESon 11-07-2024 IFES Interpretation Immunofixation electrophoresis of serum shows the presence of only polyclonal immunoglobulins (IgG,A,M,[place] and Lambda), No monoclonal protein detected. [facility] Comment on above: Result Comment: Elec tronically Signed by: ZE RESENDIZ 11/07/2024 10:03 EDT Performed By: #### G FR, CBC, ADIFF, CMP, ANEU #### [place] [address] SPEon 11-07-2024 SPE Interpretation Normal serum protein electrophoresis pattern. No abnormality detected. [facility] Comment on above: Result Comment: Elec tronically Signed by: ZE RESENDIZ 11/07/2024 15:24 EDT Performed By: #### G FR, CBC, ADIFF, CMP, ANEU #### [facility] [address] [place] [address] Albumin 3.7 G/dL Normal 3.3-5.0 [facility] Comment on above: Performed By: #### G FR, CBC, ADIFF, CMP, ANEU #### [facility] [address] [place], [place] [id number] Alpha 1 0.3 G/dL Normal 0.1-0.4 [facility] Comment on above: Performed By: #### G FR, CBC, ADIFF, CMP, ANEU #### [address] [address] Alpha 2 0.9 G/dL Normal 0.6-1.2 [facility] Comment on above: Performed By: #### G FR, CBC, ADIFF, CMP, ANEU #### [address] [address] Beta 1.0 G/dL Normal 0.6-1.3 [facility] Comment on above: Performed By: #### G FR, CBC, ADIFF, CMP, ANEU #### [address] [address] Gamma 0.9 G/dL Normal 0.7-1.6 [facility] Comment on above: Performed By: #### G FR, CBC, ADIFF, CMP, ANEU #### [place] [address] [place] 11-03-2024 Ferritin [Mass/Vol] 813.6 ng/mL High 8.0-252.0 [facility] Comment on above: Performed By: #### G FR, CBC, ADIFF, CMP, ANEU #### [address] [address] FOLon 11-03-2024 Folate 20.76 ng/mL Normal 5.38-24.00 [facility] Comment on above: Performed By: #### G FR, CBC, ADIFF, CMP, ANEU #### [address] [address] HAPTOon 11-03-2024 Haptoglobin 236 mg/dL Normal 40-280 [facility] Comment on above: Performed By: #### G FR, CBC, ADIFF, CMP, ANEU #### [place] [id number] IGGon 11-03-2024 IgG [Mass/Vol] 818 mg/dL Normal 650-1600 [facility] Comment on above: Result Comment: No te - New Reference Range in effect 20 Performed By: #### G FR, CBC, ADIFF, CMP, ANEU #### [place] [id number] IgMon 11-03-2024 IgM [Mass/Vol] 122 mg/dL Normal 50-300 [facility] Comment on above: Result Comment: No te - New Reference Range in effect 20 Performed By: #### G FR, CBC, ADIFF, CMP, ANEU #### [facility] [address] [place] [address] LABORATORYOrdered By: SYSTEM SYSTEM on 11-03-2024 Ferritin [Mass/Vol] 813.6 ng/mL High 8.0 - 25 2.0 ng/mL ADM SS Folate [Mass/Vol] 20.76 ng/mL Normal 5.38 - 24. 00 ng/mL ADM SS Haptoglobin [Mass/Vol] 236 mg/dL Normal 40 - 280 mg/dL AH ADM SS IgG [Mass/Vol] 818 mg/dL Normal 650 - 1600 mg/dL ADM SS Comment on above: Interpretive Data: * *Note - New Reference Range in effect 20 IgM [Mass/Vol] 122 mg/dL Normal 50 - 300 mg/dL ADM SS Comment on above: Interpretive Data: * *Note - New Reference Range in effect 20 PT Coag (PPP) [Time] 10.8 s Normal 9.0 - 1 4.4 seconds [facility] Comment on above: Interpretive Data: E ffective 03/06/08, Protime results may be affected by some antibiotics (i.e. Ciprofloxacin, Azithromycin, Bactrim) which may potentiate the action of oral anticoagulants, with further increases in Protime/INR. PT International Ratio 0.9 ratio Invalid Interpretation Code [facility] SS Comment on above: Interpretive Data: Michel herron [employer] [place] [employer] (CHEST, 1992, 102:312S-25S) recommended therapeutic range for oral anticoagulant therapy is: LOW RISK: Prophylaxis of venous thrombosis INR: 2.0-3.0 Treatment of pulmonary embolism 2.0-3.0 Prevention of systemic embolism 2.0-3.0 HIGH RISK: Mechanical prosthetic valves 2.5-3.5 LABORATORYOrdered By: Alfreda Lopez on 11-03-2024 Protein [Mass/Vol] 6.7 G/dL Normal 5.7 - 8.2 G/dL AH ADM SS PROon 11-03-2024 INR Coag (PPP) [Relative time] 0.9 {INR} Normal [facility] Comment on above: Result Comment: The [place] [employer] (CHEST, 1992, 102:312S-25S) recommended therapeutic range for oral anticoagulant therapy is: LOW RISK: Prophylaxis of venous thrombosis INR: 2.0-3.0 Treatment of pulmonary embolism 2.0-3.0 Prevention of systemic embolism 2.0-3.0 HIGH RISK: Mechanical prosthetic valves 2.5-3.5 Performed By: #### G FR, CBC, ADIFF, CMP, ANEU #### [facility] [address] [place] [address] PT Coag (PPP) [Time] 10.8 s Normal 9.0-14.4 [facility] Comment on above: Result Comment: Effe ctive 03/06/08, Protime results may be affected by some antibiotics (i.e. Ciprofloxacin, Azithromycin, Bactrim) which may potentiate the action of oral anticoagulants, with further increases in Protime/INR. Performed By: #### G FR, CBC, ADIFF, CMP, ANEU #### [place] [address] SPEon 11-03-2024 Total Protein 6.7 G/dL Normal 5.7-8.2 [facility] Comment on above: Performed By: #### G FR, CBC, ADIFF, CMP, ANEU #### [place] [address] ERYTHon 10-26-2024 Erythropoietin 96.8 mIU/mL High 2.6-18.5 [facility] Comment on above: Result Comment: [employer] DxI 800 Immunoassay System Values obtained with different assay methods or kits cannot be used interchangeably. Results cannot be interpreted as absolute evidence of the presence or absence of malignant disease. Performed At: [address] [id number] Hari Goldsmith PhD Ph:[phone] Performed By: #### A BRENNA ZARAGOZA #### [place] [address] .Auto Diffon 10-23-2024 Basophil, Absolute 0.1 10 3/mcL Normal 0.0-0.3 [facility] Comment on above: Performed By: #### G FR, CBC, ADIFF, CMP, ANEU #### [address] [address] Basophils/100 WBC (Bld) 0.7 % Normal 0.0-2.5 [facility] Comment on above: Performed By: #### G FR, CBC, ADIFF, CMP, ANEU #### [address] [address] Eosinophil, Absolute 0.2 10 3/mcL Normal 0.0-0.7 [facility] Comment on above: Performed By: #### G FR, CBC, ADIFF, CMP, ANEU #### [address] [address] Eosinophils/100 WBC (Bld) 1.7 % Normal 0.0-6.0 [facility] Comment on above: Performed By: #### G FR, CBC, ADIFF, CMP, ANEU #### [address] [address] Lymphocyte, Absolute 2.1 10 3/mcL Normal 0.9-4.3 [facility] Comment on above: Performed By: #### G FR, CBC, ADIFF, CMP, ANEU #### [address] [address] Lymphocytes/100 WBC (Bld) 20.9 % Normal 20.0-40.0 [facility] Comment on above: Performed By: #### G FR, CBC, ADIFF, CMP, ANEU #### [address] [address] Monocyte, Absolute 0.7 10 3/mcL Normal 0.1-1.4 [facility] Comment on above: Performed By: #### G FR, CBC, ADIFF, CMP, ANEU #### [address] [address] Monocytes/100 WBC (Bld) 7.1 % Normal 2.0-13.0 [facility] Comment on above: Performed By: #### G FR, CBC, ADIFF, CMP, ANEU #### [place] [address] Neutrophils/100 WBC (Bld) 69.6 % Normal 50.0-75.0 [facility] Comment on above: Performed By: #### G FR, CBC, ADIFF, CMP, ANEU #### [place] [address] .GFRon 10-23-2024 Estimated Glomerular Filtration Rate 19 ml/min/1.73sqm Normal [facility] Comment on above: Result Comment: Stages of Chronic Kidney Disease (CKD) Stage Description eGFR(ml/min/1.73 sq.m.) CKD 1 Normal kidney function or >=90 normal kindney function with possible kidney damage (ex. Proteinuria) CKD 2 Kidney damage with mild loss 60-89 of kidney function CKD 3a Mild to moderate loss of kidney 45-59 function CKD 3b Moderate to severe loss of 30-44 of kindey function CKD 4 Severe loss of kidney function 15-29 CKD 5 Kidney failure <15 Note: (go live 2024) the eGFR calculation was updated to the 2020 CKD-EPI creatinine equation without a race factor to calculate the eGFR results. Performed By: #### A BRENNA ZARAGOZA #### [place] [address] .NEUABSon 10-23-2024 Neutrophil, Absolute 7.1 10 3/mcL Normal 2.3-8.1 [facility] Comment on above: Performed By: #### G FR, CBC, ADIFF, CMP, ANEU #### [place] [address] APTTon 10-23-2024 aPTT Coag (Bld) [Time] 35.4 s High 25.0-35.0 [facility] Comment on above: Result Comment: For Heparin anticoagulation therapy, the recommended therapeutic range is: 54-77 seconds (APTT Correlation with Anti-Xa therapeutic range of 0.3-0.7 units/ml). PLEASE REFERENCE THE PHARMACY PROTOCOL FOR DOSING. Performed By: #### A BRENNA ZARAGOZA #### [place] [address] B12on 10-23-2024 Cobalamin (Vitamin B12) [Mass/Vol] 556 pg/mL Normal 211-911 [facility] Comment on above: Performed By: #### G FR, CBC, ADIFF, CMP, ANEU #### [address] [address] CBCon 10-23-2024 Erythrocyte distribution width (RBC) [Ratio] 16.5 % High 11.5-15.5 [facility] Comment on above: Performed By: #### G FR, CBC, ADIFF, CMP, ANEU #### [place] [id number] Hematocrit (Bld) [Volume fraction] 32.0 % Low 34.0-46.0 [facility] Comment on above: Performed By: #### G FR, CBC, ADIFF, CMP, ANEU #### [place] [address] Hgb 10.9 G/dL Low 12.0-16.0 [facility] Comment on above: Performed By: #### G FR, CBC, ADIFF, CMP, ANEU #### [place] [address] MCH (RBC) [Entitic mass] 33.2 pg High 27.0-33.0 [facility] Comment on above: Performed By: #### G FR, CBC, ADIFF, CMP, ANEU #### [place] [id number] MCHC 34.2 G/dL Normal 32.0-36.0 [facility] Comment on above: Performed By: #### G FR, CBC, ADIFF, CMP, ANEU #### [place] [address] MCV (RBC) [Entitic vol] 97.0 fL Normal 80.0-99.0 [facility] Comment on above: Performed By: #### G FR, CBC, ADIFF, CMP, ANEU #### [place] [id number] Platelet 296 10 3/mcL Normal 150-450 [facility] Comment on above: Performed By: #### G FR, CBC, ADIFF, CMP, ANEU #### [facility] [address] [place], [place] [address] Platelet mean volume (Bld) [Entitic vol] 6.9 fL Normal 6.6-10.5 [facility] Comment on above: Performed By: #### G FR, CBC, ADIFF, CMP, ANEU #### [address] [address] RBC 3.30 10 6/mcL Low 4.10-5.30 [facility] Comment on above: Performed By: #### G FR, CBC, ADIFF, CMP, ANEU #### [address] [address] WBC 10.2 10 3/mcL Normal 4.5-10.8 [facility] Comment on above: Performed By: #### G FR, CBC, ADIFF, CMP, ANEU #### [address] [address] CMPon 10-23-2024 Albumin Level 3.6 G/dL Normal 3.2-4.8 [facility] Comment on above: Performed By: #### A BRENNA ZARAGOZA #### [address] [address] Albumin/Globulin [Mass ratio] 1.0 {ratio} Normal 0.9-1.6 [facility] Comment on above: Performed By: #### A BRENNA ZARAGOZA #### [address] [address] ALP [Catalytic activity/Vol] 70 U/L Normal 38-126 [facility] Comment on above: Performed By: #### A BRENNA ZARAGOZA #### [address] [address] ALT [Catalytic activity/Vol] 17 U/L Normal 10-49 [facility] Comment on above: Performed By: #### A BRENNA ZARAGOZA #### [address] [address] AST [Catalytic activity/Vol] 27 U/L Normal 8-34 [facility] Comment on above: Performed By: #### A BRENNA ZARAGOZA #### [place] [id number] Bili Total 0.20 mg/dL Normal 0.20-1.20 [facility] Comment on above: Result Comment: Use of this assay is not recommended for patients undergoing treatment with eltrombopag due to the potential for falsely elevated results. Performed By: #### A BRENNA ZARAGOZA #### [address] [address] BUN/Creatinine Ratio 9.5 ratio Low 10.0-22.0 [facility] Comment on above: Performed By: #### A BRENNA ZARAGOZA #### [address] [address] Calcium [Mass/Vol] 9.8 mg/dL Normal 8.7-10.4 [facility] Comment on above: Performed By: #### A BRENNA ZARAGOZA #### [address] [address] Chloride [Moles/Vol] 101 mmol/L Normal 98-110 [facility] Comment on above: Performed By: #### A BRENNA ZARAGOZA #### [address] [address] CO2 [Moles/Vol] 30 mmol/L Normal 22-32 [facility] Comment on above: Performed By: #### A BRENNA ZARAGOZA #### [address] [address] Creatinine [Mass/Vol] 2.62 mg/dL High 0.50-1.20 [facility] Comment on above: Result Comment: Test ing performed on [employer] analyzer using enzymatic creatinine methodology. Performed By: #### A BRENNA ZARAGOZA #### [address] [address] Electrolyte Balance 8.0 mEq/L Normal 4.0-15.0 [facility] Comment on above: Performed By: #### A BRENNA ZARAGOZA #### [address] [address] Globulin 3.7 G/dL Normal 1.5-3.8 [facility] Comment on above: Performed By: #### A BRENNA ZARAGOZA #### [address] [address] Glucose [Mass/Vol] 106 mg/dL Normal 82-115 [facility] Comment on above: Performed By: #### A BRENNA ZARAGOZA #### [address] [address] Potassium [Moles/Vol] 4.0 mmol/L Normal 3.5-5.0 [facility] Comment on above: Performed By: #### A BRENNA ZARAGOZA #### [address] [address] Sodium [Moles/Vol] 139 mmol/L Normal 136-145 [facility] Comment on above: Performed By: #### A BRENNA ZARAGOZA #### [place] [id number] Total Protein 7.3 G/dL Normal 5.7-8.2 [facility] Comment on above: Performed By: #### A BRENNA ZARAGOZA #### [place] [id number] Urea nitrogen [Mass/Vol] 25.0 mg/dL High 8.0-22.0 [facility] Comment on above: Performed By: #### A BRENNA ZARAGOZA #### [address] [address] IGAon 10-23-2024 IgA [Mass/Vol] 248 mg/dL Normal 40-350 [facility] Comment on above: Result Comment: No te - New Reference Range in effect 20 Performed By: #### A BRENNA ZARAGOZA #### [address] [address] LABORATORYOrdered By: SYSTEM SYSTEM on 10-23-2024 Albumin BCP dye [Mass/Vol] 3.6 G/dL Normal 3.2 - 4.8 G/dL ADM SS Albumin/Globulin [Mass ratio] 1.0 {ratio} Normal 0.9 - 1.6 ratio AH ADM SS ALP [Catalytic activity/Vol] 70 U/L Normal 38 - 126 U/L AH ADM SS ALT No additional P-5'-P [Catalytic activity/Vol] 17 U/L Normal 10 - 49 U/L ADM SS aPTT Coag (Bld) [Time] 35.4 s High 25.0 - 35.0 seconds [facility] SS Comment on above: Interpretive Data: F or Heparin anticoagulation therapy, the recommended therapeutic range is: 54-77 seconds (APTT Correlation with Anti-Xa therapeutic range of 0.3-0.7 units/ml). PLEASE REFERENCE THE PHARMACY PROTOCOL FOR DOSING. AST [Catalytic activity/Vol] 27 U/L Normal 8 - 34 U/L ADM SS Basophils (Bld) [#/Vol] 0.1 103/mcL Normal 0.0 - 0.3 10^3/mcL Workflow SS Basophils/100 WBC (Bld) 0.7 % Normal 0.0 - 2.5 % Workflow SS Bilirubin [Mass/Vol] 0.20 mg/dL Normal 0.20 - 1.20 mg/dL ADM SS Comment on above: Interpretive Data: U se of this assay is not recommended for patients undergoing treatment with eltrombopag due to the potential for falsely elevated results. Calcium [Mass/Vol] 9.8 mg/dL Normal 8.7 - 10. 4 mg/dL ADM SS Chloride [Moles/Vol] 101 mmol/L Normal 98 - 11 0 mEq/L ADM SS CO2 [Moles/Vol] 30 mmol/L Normal 22 - 32 mEq/L ADM SS Cobalamin (Vitamin B12) [Mass/Vol] 556 pg/mL Normal 211 - 911 pg/mL ADM SS Creatinine [Mass/Vol] 2.62 mg/dL High 0.50 - 1.20 mg/dL ADM Comment on above: Interpretive Data: T esting performed on [employer] analyzer using enzymatic creatinine methodology. Electrolyte Balance 8.0 mEq/L Normal 4.0 - 15 .0 mEq/L ADM SS Eosinophils (Bld) [#/Vol] 0.2 103/mcL Normal 0.0 - 0.7 10^3/mcL Workflow SS Eosinophils/100 WBC (Bld) 1.7 % Normal 0.0 - 6.0 % Workflow SS Erythrocyte distribution width (RBC) [Ratio] 16.5 % High 11.5 - 15.5 % Workflow SS Estimated Glomerular Filtration Rate 19 ml/min/1.73sqm Invalid Interpretation Code ADM SS Comment on above: Interpretive Data: Stages of Chronic Kidney Disease (CKD) Stage Description eGFR(ml/min/1.73 sq.m.) CKD 1 Normal kidney function or >=90 normal kindney function with possible kidney damage (ex. Proteinuria) CKD 2 Kidney damage with mild loss 60-89 of kidney function CKD 3a Mild to moderate loss of kidney 45-59 function CKD 3b Moderate to severe loss of 30-44 of kindey function CKD 4 Severe loss of kidney function 15-29 CKD 5 Kidney failure <15 Note: (go live 2024) the eGFR calculation was updated to the 2020 CKD-EPI creatinine equation without a race factor to calculate the eGFR results. Globulin 3.7 G/dL Normal 1.5 - 3.8 G/dL ADM SS Glucose [Mass/Vol] 106 mg/dL Normal 82 - 115 mg/dL ADM SS Hematocrit (Bld) [Volume fraction] 32.0 % Low 34.0 - 46.0 % AH Workflow SS Hemoglobin (Bld) [Mass/Vol] 10.9 G/dL Low 12.0 - 16.0 G/dL AH Workflow SS IgA [Mass/Vol] 248 mg/dL Normal 40 - 350 mg/dL ADM SS Comment on above: Interpretive Data: * *Note - New Reference Range in effect 20 LDH Lactate to pyruvate reaction [Catalytic activity/Vol] 294 1 High 120 - 246 U/L ADM SS Lymphocytes (Bld) [#/Vol] 2.1 103/mcL Normal 0.9 - 4.3 10^3/mcL AH Workflow SS Lymphocytes/100 WBC (Bld) 20.9 % Normal 20.0 - 40.0 % AH Workflow SS MCH (RBC) [Entitic mass] 33.2 pg High 27.0 - 33.0 pg AH Workflow SS MCHC 34.2 G/dL Normal 32.0 - 36.0 G/dL AH Workflow SS MCV (RBC) [Entitic vol] 97.0 fL Normal 80.0 - 99.0 fL AH Workflow SS Monocytes (Bld) [#/Vol] 0.7 103/mcL Normal 0.1 - 1.4 10^3/mcL AH Workflow SS Monocytes/100 WBC (Bld) 7.1 % Normal 2.0 - 13.0 % AH Workflow SS Neutrophils (Bld) [#/Vol] 7.1 103/mcL Normal 2.3 - 8.1 10^3/mcL Workflow SS Neutrophils/100 WBC (Bld) 69.6 % Normal 50.0 - 75.0 % Workflow SS Platelet mean volume (Bld) [Entitic vol] 6.9 fL Normal 6.6 - 10.5 fL Workflow SS Platelets (Bld) [#/Vol] 296 103/mcL Normal 150 - 450 10^3/mcL Workflow SS Potassium [Moles/Vol] 4.0 mmol/L Normal 3.5 - 5.0 mEq/L ADM SS Protein [Mass/Vol] 7.3 G/dL Normal 5.7 - 8.2 G/dL ADM SS PT Coag (PPP) [Time] 10.4 s Normal 9.0 - 1 4.4 seconds [facility] Comment on above: Interpretive Data: E ffective 03/06/08, Protime results may be affected by some antibiotics (i.e. Ciprofloxacin, Azithromycin, Bactrim) which may potentiate the action of oral anticoagulants, with further increases in Protime/INR. PT International Ratio 0.9 ratio Invalid Interpretation Code [facility] Comment on above: Interpretive Data: Michel herron [employer] (CHEST, 1992, 102:312S-25S) recommended therapeutic range for oral anticoagulant therapy is: LOW RISK: Prophylaxis of venous thrombosis INR: 2.0-3.0 Treatment of pulmonary embolism 2.0-3.0 Prevention of systemic embolism 2.0-3.0 HIGH RISK: Mechanical prosthetic valves 2.5-3.5 RBC (Bld) [#/Vol] 3.30 106/mcL Low 4.10 - 5.3 0 10^6/mcL Workflow SS Sodium [Moles/Vol] 139 mmol/L Normal 136 - 145 mEq/L ADM SS Urea nitrogen [Mass/Vol] 25.0 mg/dL High 8.0 - 22.0 mg/dL ADM SS Urea nitrogen/Creatinine [Mass ratio] 9.5 ratio Low 10.0 - 22.0 ratio ADM SS WBC (Bld) [#/Vol] 10.2 103/mcL Normal 4.5 - 10.8 10^3/mcL Workflow SS LDHon 10-23-2024 LDH 294 U/L High 120-246 [facility] Comment on above: Performed By: #### A BRENNA ZARAGOZA #### [address] [address] PROon 10-23-2024 INR Coag (PPP) [Relative time] 0.9 {INR} Normal [facility] Comment on above: Result Comment: [employer] (CHEST, 1992, 102:312S-25S) recommended therapeutic range for oral anticoagulant therapy is: LOW RISK: Prophylaxis of venous thrombosis INR: 2.0-3.0 Treatment of pulmonary embolism 2.0-3.0 Prevention of systemic embolism 2.0-3.0 HIGH RISK: Mechanical prosthetic valves 2.5-3.5 Performed By: #### A BRENNA ZARAGOZA #### [address] [address] PT Coag (PPP) [Time] 10.4 s Normal 9.0-14.4 [facility] Comment on above: Result Comment: Effe ctive 03/06/08, Protime results may be affected by some antibiotics (i.e. Ciprofloxacin, Azithromycin, Bactrim) which may potentiate the action of oral anticoagulants, with further increases in Protime/INR. Performed By: #### A BRENNA ZARAGOZA #### [address] [address] XR CHEST 2 VIEWSon XR CHEST 2 VIEWS ORIGINAL EXAMINATION: TWO XRAY VIEWS OF THE CHEST 09/26/2024 12:25 pm COMPARISON: Chest x-ray on 09/06/2024 HISTORY: ORDERING SYSTEM PROVIDED HISTORY: Reason for Exam: Left lower lobe pneumonia follow-up FINDINGS: The heart size and mediastinal contours are normal. Right coronary artery stent is visible. There is no lung infiltrate or edema. The left lower lobe infiltrate has resolved since 09/06/2024. No pneumothorax or pleural fluid is present. Right shoulder replacement and anterior cervical disc fusion has been performed. There is no acute skeletal abnormality. IMPRESSION: Resolution of left lower lobe pneumonia. No acute abnormality. Interpreted by: Andrei Suggs MD Preliminary Report By: Andrei Suggs MD Electronically signed By Andrei Suggs MD Dictated Date: 09/27/2024 12:52:24 AM Prelim Date: 09/27/2024 12:54:40 AM Sign Date: 09/27/2024 12:54:40 AM Ordering Provider: BELL Brito [facility] .Auto Diffon 09-26-2024 Basophil, Absolute 0.1 10 3/mcL Normal 0.0-0.2 [facility] Comment on above: Performed By: #### L IPID, GFR, CMP, A1C, TSH #### [address] [address] Basophils/100 WBC (Bld) 0.8 % Normal 0.0-2.5 [facility] Comment on above: Performed By: #### L IPID, GFR, CMP, A1C, TSH #### [address] [address] Eosinophil, Absolute 0.1 10 3/mcL Normal 0.0-0.7 [facility] Comment on above: Performed By: #### L IPID, GFR, CMP, A1C, TSH #### [address] [address] Eosinophils/100 WBC (Bld) 1.8 % Normal 0.0-7.0 [facility] Comment on above: Performed By: #### L IPID, GFR, CMP, A1C, TSH #### [address] [address] Lymphocyte, Absolute 1.5 10 3/mcL Normal 0.9-4.3 [facility] Comment on above: Performed By: #### L IPID, GFR, CMP, A1C, TSH #### [address] [address] Lymphocytes/100 WBC (Bld) 18.2 % Low 20.0-40.0 [facility] Comment on above: Performed By: #### L IPID, GFR, CMP, A1C, TSH #### [address] [address] Monocyte, Absolute 0.6 10 3/mcL Normal 0.1-1.4 [facility] Comment on above: Performed By: #### L IPID, GFR, CMP, A1C, TSH #### [address] [address] Monocytes/100 WBC (Bld) 6.7 % Normal 2.0-13.0 [facility] Comment on above: Performed By: #### L IPID, GFR, CMP, A1C, TSH #### [address] [address] Neutrophils/100 WBC (Bld) 72.5 % Normal 50.0-75.0 [facility] Comment on above: Performed By: #### L IPID, GFR, CMP, A1C, TSH #### [address] [address] .GFRon 09-26-2024 Estimated Glomerular Filtration Rate 10 ml/min/1.73sqm Normal [facility] Comment on above: Result Comment: Stages of Chronic Kidney Disease (CKD) Stage Description eGFR(ml/min/1.73 sq.m.) CKD 1 Normal kidney function or >=90 normal kindney function with possible kidney damage (ex. Proteinuria) CKD 2 Kidney damage with mild loss 60-89 of kidney function CKD 3a Mild to moderate loss of kidney 45-59 function CKD 3b Moderate to severe loss of 30-44 of kindey function CKD 4 Severe loss of kidney function 15-29 CKD 5 Kidney failure <15 Note: (go live 2024) the eGFR calculation was updated to the 2020 CKD-EPI creatinine equation without a race factor to calculate the eGFR results. Performed By: #### L IPID, GFR, CMP, A1C, TSH #### [address] [address] .NEUABSon 09-26-2024 Neutrophil, Absolute 6.1 10 3/mcL Normal 2.3-8.1 [facility] Comment on above: Performed By: #### L IPID, GFR, CMP, A1C, TSH #### [address] [address] CBCon 09-26-2024 Erythrocyte distribution width (RBC) [Ratio] 16.8 % High 11.5-15.5 [facility] Comment on above: Performed By: #### L IPID, GFR, CMP, A1C, TSH #### [address] [address] Hematocrit (Bld) [Volume fraction] 28.4 % Low 34.0-46.0 [facility] Comment on above: Performed By: #### L IPID, GFR, CMP, A1C, TSH #### [address] [address] Hgb 9.6 G/dL Low 12.0-16.0 [facility] Comment on above: Performed By: #### L IPID, GFR, CMP, A1C, TSH #### [address] [address] MCH (RBC) [Entitic mass] 32.6 pg Normal 27.0-33.0 [facility] Comment on above: Performed By: #### L IPID, GFR, CMP, A1C, TSH #### [place] [address] MCHC 33.7 G/dL Normal 32.0-36.0 [facility] Comment on above: Performed By: #### L IPID, GFR, CMP, A1C, TSH #### [place] [address] MCV (RBC) [Entitic vol] 96.7 fL Normal 80.0-99.0 [facility] Comment on above: Performed By: #### L IPID, GFR, CMP, A1C, TSH #### [address] [address] Platelet 176 10 3/mcL Normal 150-450 [facility] Comment on above: Performed By: #### L IPID, GFR, CMP, A1C, TSH #### [address] [address] Platelet mean volume (Bld) [Entitic vol] 7.0 fL Normal 6.6-10.5 [facility] Comment on above: Performed By: #### L IPID, GFR, CMP, A1C, TSH #### [place] [id number] RBC 2.94 10 6/mcL Low 4.10-5.30 [facility] Comment on above: Performed By: #### L IPID, GFR, CMP, A1C, TSH #### [address] [address] WBC 8.4 10 3/mcL Normal 4.5-10.8 [facility] Comment on above: Performed By: #### L IPID, GFR, CMP, A1C, TSH #### [address] [address] CMPon 09-26-2024 Albumin Level 3.2 G/dL Low 3.4-4.8 [facility] Comment on above: Performed By: #### L IPID, GFR, CMP, A1C, TSH #### [address] [address] Albumin/Globulin [Mass ratio] 0.8 {ratio} Low 1.1-2.5 [facility] Comment on above: Performed By: #### L IPID, GFR, CMP, A1C, TSH #### [address] [address] ALP [Catalytic activity/Vol] 73 U/L Normal 40-135 [facility] Comment on above: Performed By: #### L IPID, GFR, CMP, A1C, TSH #### [address] [address] ALT [Catalytic activity/Vol] 20 U/L Normal 14-59 [facility] Comment on above: Performed By: #### L IPID, GFR, CMP, A1C, TSH #### [address] [address] AST [Catalytic activity/Vol] 20 U/L Normal 10-40 [facility] Comment on above: Performed By: #### L IPID, GFR, CMP, A1C, TSH #### [address] [address] Bili Total 0.5 mg/dL Normal 0.2-1.0 [facility] Comment on above: Result Comment: Use of this assay is not recommended for patients undergoing treatment with eltrombopag due to the potential for falsely elevated results. Performed By: #### L IPID, GFR, CMP, A1C, TSH #### [place] [address] BUN/Creatinine Ratio 8 ratio Normal 7-27 [facility] Comment on above: Performed By: #### L IPID, GFR, CMP, A1C, TSH #### [place] [address] Calcium [Mass/Vol] 9.8 mg/dL Normal 8.4-10.2 [facility] Comment on above: Performed By: #### L IPID, GFR, CMP, A1C, TSH #### [place] [address] Chloride [Moles/Vol] 98 mmol/L Normal 98-107 [facility] Comment on above: Performed By: #### L IPID, GFR, CMP, A1C, TSH #### [place] [address] CO2 [Moles/Vol] 29 mmol/L Normal 23-31 [facility] Comment on above: Performed By: #### L IPID, GFR, CMP, A1C, TSH #### [place] [address] Creatinine [Mass/Vol] 4.38 mg/dL High 0.55-1.02 [facility] Comment on above: Result Comment: Test ing performed on Siemens Dimension EXL analyzer using a modified kinetic Masoud technique. Performed By: #### L IPID, GFR, CMP, A1C, TSH #### [place] [address] Electrolyte Balance 10.0 mEq/L Normal 4.0-15.0 [facility] Comment on above: Performed By: #### L IPID, GFR, CMP, A1C, TSH #### [place] [address] Globulin 3.9 G/dL Normal [facility] Comment on above: Performed By: #### L IPID, GFR, CMP, A1C, TSH #### [address] [address] Glucose [Mass/Vol] 130 mg/dL High 83-110 [facility] Comment on above: Performed By: #### L IPID, GFR, CMP, A1C, TSH #### [address] [address] Potassium [Moles/Vol] 4.9 mmol/L Normal 3.5-5.1 [facility] Comment on above: Performed By: #### L IPID, GFR, CMP, A1C, TSH #### [address] [address] Sodium [Moles/Vol] 137 mmol/L Normal 136-145 [facility] Comment on above: Performed By: #### L IPID, GFR, CMP, A1C, TSH #### [place] [address] Total Protein 7.1 G/dL Normal 6.4-8.2 [facility] Comment on above: Performed By: #### L IPID, GFR, CMP, A1C, TSH #### [place] [address] Urea nitrogen [Mass/Vol] 35 mg/dL High 7-18 [facility] Comment on above: Performed By: #### L IPID, GFR, CMP, A1C, TSH #### [address] [address] ESRon 09-26-2024 Erythrocyte Sed Rate 72 mm/hr High 0-30 [facility] Comment on above: Performed By: #### L IPID, GFR, CMP, A1C, TSH #### [address] [address] FEon 09-26-2024 Iron [Mass/Vol] 70 ug/dL Normal 50-170 [facility] Comment on above: Performed By: #### L IPID, GFR, CMP, A1C, TSH #### [address] [address] [place] 09-26-2024 Ferritin [Mass/Vol] 1334.0 ng/mL High 8.0-252.0 [facility] Comment on above: Performed By: #### L IPID, GFR, CMP, A1C, TSH #### [place] [address] [place], [place] [address] IBCon 09-26-2024 TIBC 237 mcg/dL Low 250-450 [facility] Comment on above: Performed By: #### L IPID, GFR, CMP, A1C, TSH #### [place] [id number] [place], [place] [address] LABORATORYOrdered By: SYSTEM SYSTEM on 09-26-2024 Albumin BCP dye [Mass/Vol] 3.2 G/dL Low 3.4 - 4.8 G/dL AO ADM SS Albumin/Globulin [Mass ratio] 0.8 {ratio} Low 1.1 - 2.5 ratio AO ADM SS ALP [Catalytic activity/Vol] 73 U/L Normal 40 - 135 U/L AO ADM SS ALT With P-5'-P [Catalytic activity/Vol] 20 U/L Normal 14 - 59 U/L AO ADM SS AST With P-5'-P [Catalytic activity/Vol] 20 U/L Normal 10 - 40 U/L AO ADM SS Basophils (Bld) [#/Vol] 0.1 103/mcL Normal 0.0 - 0.2 10^3/mcL AO Workflow SS Basophils/100 WBC (Bld) 0.8 % Normal 0.0 - 2.5 % AO Workflow SS Bilirubin [Mass/Vol] 0.5 mg/dL Normal 0.2 - 1 .0 mg/dL AO ADM SS Comment on above: Interpretive Data: U se of this assay is not recommended for patients undergoing treatment with eltrombopag due to the potential for falsely elevated results. Calcium [Mass/Vol] 9.8 mg/dL Normal 8.4 - 10. 2 mg/dL AO ADM SS Chloride [Moles/Vol] 98 mmol/L Normal 98 - 10 7 mmol/L AO ADM SS CO2 [Moles/Vol] 29 mmol/L Normal 23 - 31 mmol/L AO ADM SS Creatinine [Mass/Vol] 4.38 mg/dL High 0.55 - 1.02 mg/dL AO ADM SS Comment on above: Interpretive Data: T esting performed on Siemens Dimension EXL analyzer using a modified kinetic Masoud technique. Electrolyte Balance 10.0 mEq/L Normal 4.0 - 15 .0 mEq/L AO ADM SS Eosinophil, Absolute 0.1 103/mcL Normal 0.0 - 0 .7 10^3/mcL AO Workflow SS Eosinophils/100 WBC (Bld) 1.8 % Normal 0.0 - 7.0 % AO Workflow SS Erythrocyte distribution width (RBC) [Ratio] 16.8 % High 11.5 - 15.5 % AO Workflow SS Estimated Glomerular Filtration Rate 10 ml/min/1.73sqm Invalid Interpretation Code AO Chemistry S Comment on above: Interpretive Data: Stages of Chronic Kidney Disease (CKD) Stage Description eGFR(ml/min/1.73 sq.m.) CKD 1 Normal kidney function or >=90 normal kindney function with possible kidney damage (ex. Proteinuria) CKD 2 Kidney damage with mild loss 60-89 of kidney function CKD 3a Mild to moderate loss of kidney 45-59 function CKD 3b Moderate to severe loss of 30-44 of kindey function CKD 4 Severe loss of kidney function 15-29 CKD 5 Kidney failure <15 Note: (go live 2024) the eGFR calculation was updated to the 2020 CKD-EPI creatinine equation without a race factor to calculate the eGFR results. Ferritin [Mass/Vol] 1334.0 ng/mL High 8.0 - 25 2.0 ng/mL AO ADM SS Globulin 3.9 G/dL Invalid Interpretation Code AO ADM SS Glucose [Mass/Vol] 130 mg/dL High 83 - 110 mg/dL AO ADM SS Hematocrit (Bld) [Volume fraction] 28.4 % Low 34.0 - 46.0 % AO Workflow SS Hemoglobin (Bld) [Mass/Vol] 9.6 G/dL Low 12.0 - 16.0 G/dL AO Workflow SS Iron [Mass/Vol] 70 ug/dL Normal 50 - 170 mcg/dL AO ADM SS Iron binding capacity [Mass/Vol] 237 mcg/dL Low 250 - 450 mcg/dL AO ADM SS Lymphocytes (Bld) [#/Vol] 1.5 103/mcL Normal 0.9 - 4.3 10^3/mcL AO Workflow SS Lymphocytes/100 WBC (Bld) 18.2 % Low 20.0 - 40.0 % AO Workflow SS Magnesium [Mass/Vol] 2.3 mg/dL Normal 1.8 - 2 .4 mg/dL AO ADM SS MCH (RBC) [Entitic mass] 32.6 pg Normal 27.0 - 33.0 pg AO Workflow SS MCHC 33.7 G/dL Normal 32.0 - 36.0 G/dL AO Workflow SS MCV (RBC) [Entitic vol] 96.7 fL Normal 80.0 - 99.0 fL AO Workflow SS Monocytes (Bld) [#/Vol] 0.6 103/mcL Normal 0.1 - 1.4 10^3/mcL AO Workflow SS Monocytes/100 WBC (Bld) 6.7 % Normal 2.0 - 13.0 % AO Workflow SS Natriuretic peptide.B prohormone N-Terminal [Mass/Vol] 769 pg/mL High 0 - 125 pg/mL AO ADM SS Comment on above: Interpretive Data: N T-proBNP results of less than 300 pg/mL effectively rules out acute congestive heart failure with 99% negative predictive value. Neutrophils (Bld) [#/Vol] 6.1 103/mcL Normal 2.3 - 8.1 10^3/mcL AO Workflow SS Neutrophils/100 WBC (Bld) 72.5 % Normal 50.0 - 75.0 % AO Workflow SS Platelet mean volume (Bld) [Entitic vol] 7.0 fL Normal 6.6 - 10.5 fL AO Workflow SS Platelets (Bld) [#/Vol] 176 103/mcL Normal 150 - 450 10^3/mcL AO Workflow SS Potassium [Moles/Vol] 4.9 mmol/L Normal 3.5 - 5.1 mmol/L AO ADM SS Protein [Mass/Vol] 7.1 G/dL Normal 6.4 - 8.2 G/dL AO ADM SS RBC (Bld) [#/Vol] 2.94 106/mcL Low 4.10 - 5.3 0 10^6/mcL AO Workflow SS Sodium [Moles/Vol] 137 mmol/L Normal 136 - 145 mmol/L AO ADM SS Urea nitrogen [Mass/Vol] 35 mg/dL High 7 - 18 mg/dL AO ADM SS Urea nitrogen/Creatinine [Mass ratio] 8 ratio Normal 7 - 27 ratio AO ADM SS WBC (Bld) [#/Vol] 8.4 103/mcL Normal 4.5 - 10.8 10^3/mcL AO Workflow SS LABORATORYOrdered By: Nicholas Scottmore on 09-26-2024 ESR Photometric method (Bld) [Velocity] 72 mm/hr High 0 - 30 mm/hr AO Man Heme SS MGon 09-26-2024 Magnesium [Mass/Vol] 2.3 mg/dL Normal 1.8-2.4 [facility] Comment on above: Performed By: #### L IPID, GFR, CMP, A1C, TSH #### [id number] [place], [place] [address] PBNPon 09-26-2024 Natriuretic peptide B (Bld) [Mass/Vol] 769 pg/mL High 0-125 [facility] Comment on above: Result Comment: NT-p roBNP results of less than 300 pg/mL effectively rules out acute congestive heart failure with 99% negative predictive value. Performed By: #### L IPID, GFR, CMP, A1C, TSH #### [id number] [place], [place] [address] XR CHEST 2 VIEWSon XR CHEST 2 VIEWS ORIGINAL EXAMINATION: TWO XRAY VIEWS OF THE CHEST 09/06/2024 2:41 pm COMPARISON: 04/20/2022. HISTORY: ORDERING SYSTEM PROVIDED HISTORY: Reason for Exam: community aquired pneumonia left lower lobe recheck FINDINGS: Small focal infiltrate is present in the medial left lower lobe. The heart is not enlarged the right lung is clear. Status post cervical and lumbar fusions. Right shoulder replacement. IMPRESSION: Small left lower lobe infiltrate suspicious for pneumonia. Interpreted by: Mg Hart Preliminary Report By: Mg Hart Electronically signed By Mg Hart Dictated Date: 09/07/2024 5:36:36 AM Prelim Date: 09/07/2024 5:37:53 AM Sign Date: 09/07/2024 5:37:53 AM Ordering Provider: BELL Brito [facility] .Auto Diffon 09-06-2024 Basophil, Absolute 0.1 10 3/mcL Normal 0.0-0.2 [facility] Comment on above: Performed By: #### L IPID, GFR, CMP, A1C, TSH #### Nish Von [place] [address] [place] [address] Basophils/100 WBC (Bld) 1.1 % Normal 0.0-2.5 [facility] Comment on above: Performed By: #### L IPID, GFR, CMP, A1C, TSH #### [address] [address] Eosinophil, Absolute 0.2 10 3/mcL Normal 0.0-0.7 [facility] Comment on above: Performed By: #### L IPID, GFR, CMP, A1C, TSH #### [address] [address] Eosinophils/100 WBC (Bld) 1.5 % Normal 0.0-7.0 [facility] Comment on above: Performed By: #### L IPID, GFR, CMP, A1C, TSH #### [address] [address] Lymphocyte, Absolute 2.3 10 3/mcL Normal 0.9-4.3 [facility] Comment on above: Performed By: #### L IPID, GFR, CMP, A1C, TSH #### [address] [address] Lymphocytes/100 WBC (Bld) 22.4 % Normal 20.0-40.0 [facility] Comment on above: Performed By: #### L IPID, GFR, CMP, A1C, TSH #### [address] [address] Monocyte, Absolute 0.8 10 3/mcL Normal 0.1-1.4 [facility] Comment on above: Performed By: #### L IPID, GFR, CMP, A1C, TSH #### [address] [address] Monocytes/100 WBC (Bld) 7.4 % Normal 2.0-13.0 [facility] Comment on above: Performed By: #### L IPID, GFR, CMP, A1C, TSH #### [address] [address] Neutrophils/100 WBC (Bld) 67.6 % Normal 50.0-75.0 [facility] Comment on above: Performed By: #### L IPID, GFR, CMP, A1C, TSH #### [address] [address] .GFRon 09-06-2024 GFR 19 ml/min/1.73sqm Normal [facility] Comment on above: Result Comment: GFR Population mean for , Non- Americans Ages 20-29 = 116 mL/min/1.73 sq.m. Ages 30-39 = 107 mL/min/1.73 sq.m. Ages 40-49 = 99 mL/min/1.73 sq.m. Ages 50-59 = 93 mL/min/1.73 sq.m. Ages 60-69 = 85 mL/min/1.73 sq.m. Ages 70+ = 75 mL/min/1.73 sq.m. Chronic Kidney Disease: Less than 60 mL/min/1.73 square meters End Stage Renal Disease: Less than 15 mL/min/1.73 square meters Performed By: #### M G, ANEU, CBC, VIDH, ADIFF, FERR, FT4 #### [address] [address] #### B12 #### [place] [address] GFR Non- 16 ml/min/1.73sqm Normal [facility] Comment on above: Result Comment: GFR Population mean for , Non- Americans Ages 20-29 = 116 mL/min/1.73 sq.m. Ages 30-39 = 107 mL/min/1.73 sq.m. Ages 40-49 = 99 mL/min/1.73 sq.m. Ages 50-59 = 93 mL/min/1.73 sq.m. Ages 60-69 = 85 mL/min/1.73 sq.m. Ages 70+ = 75 mL/min/1.73 sq.m. Chronic Kidney Disease: Less than 60 mL/min/1.73 square meters End Stage Renal Disease: Less than 15 mL/min/1.73 square meters Performed By: #### M G, ANEU, CBC, VIDH, ADIFF, FERR, FT4 #### [address] [place], [place] [address] #### B12 #### [facility] [address] [place] [address] .NEUABSon 09-06-2024 Neutrophil, Absolute 7.1 10 3/mcL Normal 2.3-8.1 [facility] Comment on above: Performed By: #### L IPID, GFR, CMP, A1C, TSH #### [address] [place], [place] [address] A1Con 09-06-2024 Glucose [Mass/Vol] 117 mg/dL Normal [facility] Comment on above: Result Comment: Cindy mated Average Glucose calculated by equation ((28.7xA1C)-46.7) Estimated average glucose (eAG) is a calculated value from Hemoglobin A1C and is senior sales representative of the average blood glucose level in the last 2-3 month period. Normal range: less than 114 mg/dL Performed By: #### L IPID, GFR, CMP, A1C, TSH #### [address] [place], [place] [address] HbA1c (Bld) [Mass fraction] 5.7 % Normal 4.3-6.4 [facility] Comment on above: Performed By: #### L IPID, GFR, CMP, A1C, TSH #### [address] [address] BRCon 09-06-2024 RC Normal [facility] Comment on above: Result Comment: [id number] AN RC TRANSFUSED 09/07/24 0933 Performed By: #### M 100.2000, M100.2400 #### [facility] [address] [facility] [place], [address] CBCon 09-06-2024 Erythrocyte distribution width (RBC) [Ratio] 15.7 % High 11.5-15.5 [facility] Comment on above: Performed By: #### L IPID, GFR, CMP, A1C, TSH #### [address] [place], [place] [address] Hematocrit (Bld) [Volume fraction] 21.8 % Low 34.0-46.0 [facility] Comment on above: Performed By: #### L IPID, GFR, CMP, A1C, TSH #### [address] [address] Hgb 7.5 G/dL Low 12.0-16.0 [facility] Comment on above: Performed By: #### L IPID, GFR, CMP, A1C, TSH #### [address] [address] MCH (RBC) [Entitic mass] 33.9 pg High 27.0-33.0 [facility] Comment on above: Performed By: #### L IPID, GFR, CMP, A1C, TSH #### [address] [address] MCHC 34.4 G/dL Normal 32.0-36.0 [facility] Comment on above: Performed By: #### L IPID, GFR, CMP, A1C, TSH #### [address] [address] MCV (RBC) [Entitic vol] 98.7 fL Normal 80.0-99.0 [facility] Comment on above: Performed By: #### L IPID, GFR, CMP, A1C, TSH #### [address] [address] Platelet 329 10 3/mcL Normal 150-450 [facility] Comment on above: Performed By: #### L IPID, GFR, CMP, A1C, TSH #### [address] [address] Platelet mean volume (Bld) [Entitic vol] 7.8 fL Normal 6.6-10.5 [facility] Comment on above: Performed By: #### L IPID, GFR, CMP, A1C, TSH #### [address] [address] RBC 2.21 10 6/mcL Low 4.10-5.30 [facility] Comment on above: Performed By: #### L IPID, GFR, CMP, A1C, TSH #### [address] [address] WBC 10.4 10 3/mcL Normal 4.5-10.8 [facility] Comment on above: Performed By: #### L IPID, GFR, CMP, A1C, TSH #### [address] [address] CMPon 09-06-2024 Albumin Level 3.0 G/dL Low 3.4-4.8 [facility] Comment on above: Performed By: #### L IPID, GFR, CMP, A1C, TSH #### [place] [id number] Albumin/Globulin [Mass ratio] 0.6 {ratio} Low 1.1-2.5 [facility] Comment on above: Performed By: #### L IPID, GFR, CMP, A1C, TSH #### [place] [address] ALP [Catalytic activity/Vol] 86 U/L Normal 40-135 [facility] Comment on above: Performed By: #### L IPID, GFR, CMP, A1C, TSH #### [address] ALT [Catalytic activity/Vol] 24 U/L Normal 14-59 [facility] Comment on above: Performed By: #### L IPID, GFR, CMP, A1C, TSH #### [address] AST [Catalytic activity/Vol] 38 U/L Normal 10-40 [facility] Comment on above: Performed By: #### L IPID, GFR, CMP, A1C, TSH #### [address] Bili Total 0.4 mg/dL Normal 0.2-1.0 [facility] Comment on above: Result Comment: Use of this assay is not recommended for patients undergoing treatment with eltrombopag due to the potential for falsely elevated results. Performed By: #### L IPID, GFR, CMP, A1C, TSH #### [address] [address] BUN/Creatinine Ratio 8 ratio Normal 7-27 [facility] Comment on above: Performed By: #### L IPID, GFR, CMP, A1C, TSH #### [address] [address] Calcium [Mass/Vol] 9.4 mg/dL Normal 8.4-10.2 [facility] Comment on above: Performed By: #### L IPID, GFR, CMP, A1C, TSH #### [address] [address] Chloride [Moles/Vol] 100 mmol/L Normal 98-107 [facility] Comment on above: Performed By: #### L IPID, GFR, CMP, A1C, TSH #### [address] [address] CO2 [Moles/Vol] 29 mmol/L Normal 23-31 [facility] Comment on above: Performed By: #### L IPID, GFR, CMP, A1C, TSH #### [address] [address] Creatinine [Mass/Vol] 2.95 mg/dL High 0.55-1.02 [facility] Comment on above: Result Comment: Test ing performed on Siemens Dimension EXL analyzer using a modified kinetic Masoud technique. Performed By: #### L IPID, GFR, CMP, A1C, TSH #### [address] [address] Electrolyte Balance 8.0 mEq/L Normal 4.0-15.0 [facility] Comment on above: Performed By: #### L IPID, GFR, CMP, A1C, TSH #### [address] [address] Globulin 4.7 G/dL Normal [facility] Comment on above: Performed By: #### L IPID, GFR, CMP, A1C, TSH #### [address] [address] Glucose [Mass/Vol] 127 mg/dL High 83-110 [facility] Comment on above: Performed By: #### L IPID, GFR, CMP, A1C, TSH #### [address] [address] Potassium [Moles/Vol] 4.3 mmol/L Normal 3.5-5.1 [facility] Comment on above: Performed By: #### L IPID, GFR, CMP, A1C, TSH #### [address] [address] Sodium [Moles/Vol] 137 mmol/L Normal 136-145 [facility] Comment on above: Performed By: #### L IPID, GFR, CMP, A1C, TSH #### [address] [address] Total Protein 7.7 G/dL Normal 6.4-8.2 [facility] Comment on above: Performed By: #### L IPID, GFR, CMP, A1C, TSH #### [address] [address] Urea nitrogen [Mass/Vol] 24 mg/dL High 7-18 [facility] Comment on above: Performed By: #### L IPID, GFR, CMP, A1C, TSH #### [address] [address] FEon 09-06-2024 Iron [Mass/Vol] 107 ug/dL Normal 50-170 [facility] Comment on above: Performed By: #### L IPID, GFR, CMP, A1C, TSH #### [address] [address] [place] 09-06-2024 Ferritin [Mass/Vol] 1919.0 ng/mL High 8.0-252.0 [facility] Comment on above: Performed By: #### M G, ANEU, CBC, VIDH, ADIFF, FERR, FT4 #### [address] [address] #### B12 #### [address] [address] IBCon 09-06-2024 TIBC 272 mcg/dL Normal 250-450 [facility] Comment on above: Performed By: #### L IPID, GFR, CMP, A1C, TSH #### [facility] [address] [place], [place] [address] LABORATORYOrdered By: SYSTEM SYSTEM on 09-06-2024 Immature reticulocytes/Total reticulocytes (Bld) 0.66 IRF High 0.20 - 0.46 IRF AO Workflow SS Reticulocytes, Auto 3.1 % High 0.2 - 2.3 % AO W orkflow SS Albumin BCP dye [Mass/Vol] 3.0 G/dL Low 3.4 - 4.8 G/dL AO ADM SS Albumin/Globulin [Mass ratio] 0.6 {ratio} Low 1.1 - 2.5 ratio AO ADM SS ALP [Catalytic activity/Vol] 86 U/L Normal 40 - 135 U/L AO ADM SS ALT With P-5'-P [Catalytic activity/Vol] 24 U/L Normal 14 - 59 U/L AO ADM SS AST With P-5'-P [Catalytic activity/Vol] 38 U/L Normal 10 - 40 U/L AO ADM SS Basophils (Bld) [#/Vol] 0.1 103/mcL Normal 0.0 - 0.2 10^3/mcL AO Workflow SS Basophils/100 WBC (Bld) 1.1 % Normal 0.0 - 2.5 % AO Workflow SS Bilirubin [Mass/Vol] 0.4 mg/dL Normal 0.2 - 1 .0 mg/dL AO ADM SS Comment on above: Interpretive Data: U se of this assay is not recommended for patients undergoing treatment with eltrombopag due to the potential for falsely elevated results. Calcium [Mass/Vol] 9.4 mg/dL Normal 8.4 - 10. 2 mg/dL AO ADM SS Chloride [Moles/Vol] 100 mmol/L Normal 98 - 10 7 mmol/L AO ADM SS CO2 [Moles/Vol] 29 mmol/L Normal 23 - 31 mmol/L AO ADM SS Creatinine [Mass/Vol] 2.95 mg/dL High 0.55 - 1.02 mg/dL AO ADM SS Comment on above: Interpretive Data: T esting performed on Siemens Dimension EXL analyzer using a modified kinetic Masoud technique. Electrolyte Balance 8.0 mEq/L Normal 4.0 - 15 .0 mEq/L AO ADM SS Eosinophil, Absolute 0.2 103/mcL Normal 0.0 - 0 .7 10^3/mcL AO Workflow SS Eosinophils/100 WBC (Bld) 1.5 % Normal 0.0 - 7.0 % AO Workflow SS Erythrocyte distribution width (RBC) [Ratio] 15.7 % High 11.5 - 15.5 % AO Workflow SS Ferritin [Mass/Vol] 1919.0 ng/mL High 8.0 - 25 2.0 ng/mL AO ADM SS GFR/1.73 sq M.predicted among blacks MDRD (S/P/Bld) [Vol rate/Area] 19 ml/min/1.73sqm Invalid Interpretation Code AO Chemistry S Comment on above: Interpretive Data: GFR Population mean for , Non- Americans Ages 20-29 = 116 mL/min/1.73 sq.m. Ages 30-39 = 107 mL/min/1.73 sq.m. Ages 40-49 = 99 mL/min/1.73 sq.m. Ages 50-59 = 93 mL/min/1.73 sq.m. Ages 60-69 = 85 mL/min/1.73 sq.m. Ages 70+ = 75 mL/min/1.73 sq.m. Chronic Kidney Disease: Less than 60 mL/min/1.73 square meters End Stage Renal Disease: Less than 15 mL/min/1.73 square meters GFR/1.73 sq M.predicted among non-blacks MDRD (S/P/Bld) [Vol rate/Area] 16 ml/min/1.73sqm Invalid Interpretation Code AO Chemistry S Comment on above: Interpretive Data: GFR Population mean for , Non- Americans Ages 20-29 = 116 mL/min/1.73 sq.m. Ages 30-39 = 107 mL/min/1.73 sq.m. Ages 40-49 = 99 mL/min/1.73 sq.m. Ages 50-59 = 93 mL/min/1.73 sq.m. Ages 60-69 = 85 mL/min/1.73 sq.m. Ages 70+ = 75 mL/min/1.73 sq.m. Chronic Kidney Disease: Less than 60 mL/min/1.73 square meters End Stage Renal Disease: Less than 15 mL/min/1.73 square meters Globulin 4.7 G/dL Invalid Interpretation Code AO ADM SS Glucose [Mass/Vol] 117 mg/dL Invalid Interpretation Code AO Chemistry S Comment on above: Interpretive Data: E stimated average glucose (eAG) is a calculated value from Hemoglobin A1C and is senior sales representative of the average blood glucose level in the last 2-3 month period. Normal range: less than 114 mg/dL Glucose [Mass/Vol] 127 mg/dL High 83 - 110 mg/dL AO ADM SS HbA1c (Bld) [Mass fraction] 5.7 % Normal 4.3 - 6.4 % AO ADM SS Hematocrit (Bld) [Volume fraction] 21.8 % Low 34.0 - 46.0 % AO Workflow SS Hemoglobin (Bld) [Mass/Vol] 7.5 G/dL Low 12.0 - 16.0 G/dL AO Workflow SS Iron [Mass/Vol] 107 ug/dL Normal 50 - 170 mcg/dL AO ADM SS Iron binding capacity [Mass/Vol] 272 mcg/dL Normal 250 - 450 mcg/dL AO ADM SS Lymphocytes (Bld) [#/Vol] 2.3 103/mcL Normal 0.9 - 4.3 10^3/mcL AO Workflow SS Lymphocytes/100 WBC (Bld) 22.4 % Normal 20.0 - 40.0 % AO Workflow SS MCH (RBC) [Entitic mass] 33.9 pg High 27.0 - 33.0 pg AO Workflow SS MCHC 34.4 G/dL Normal 32.0 - 36.0 G/dL AO Workflow SS MCV (RBC) [Entitic vol] 98.7 fL Normal 80.0 - 99.0 fL AO Workflow SS Monocytes (Bld) [#/Vol] 0.8 103/mcL Normal 0.1 - 1.4 10^3/mcL AO Workflow SS Monocytes/100 WBC (Bld) 7.4 % Normal 2.0 - 13.0 % AO Workflow SS Neutrophils (Bld) [#/Vol] 7.1 103/mcL Normal 2.3 - 8.1 10^3/mcL AO Workflow SS Neutrophils/100 WBC (Bld) 67.6 % Normal 50.0 - 75.0 % AO Workflow SS Platelet mean volume (Bld) [Entitic vol] 7.8 fL Normal 6.6 - 10.5 fL AO Workflow SS Platelets (Bld) [#/Vol] 329 103/mcL Normal 150 - 450 10^3/mcL AO Workflow SS Potassium [Moles/Vol] 4.3 mmol/L Normal 3.5 - 5.1 mmol/L AO ADM SS Protein [Mass/Vol] 7.7 G/dL Normal 6.4 - 8.2 G/dL AO ADM SS RBC (Bld) [#/Vol] 2.21 106/mcL Low 4.10 - 5.3 0 10^6/mcL AO Workflow SS Sodium [Moles/Vol] 137 mmol/L Normal 136 - 145 mmol/L AO ADM SS TSH Qn 5.70 m[IU]/L High 0.36 - 3.74 mcIU/mL AO ADM SS Urea nitrogen [Mass/Vol] 24 mg/dL High 7 - 18 mg/dL AO ADM SS Urea nitrogen/Creatinine [Mass ratio] 8 ratio Normal 7 - 27 ratio AO ADM SS WBC (Bld) [#/Vol] 10.4 103/mcL Normal 4.5 - 10.8 10^3/mcL AO Workflow SS LABORATORYOrdered By: Brenda Monterroso on 09-06-2024 Cholesterol [Mass/Vol] 123 mg/dL Normal 0 - 200 mg/dL AO ADM SS Comment on above: Interpretive Data: C holesterol Reference Interval: Less than 200 Desirable 200-239 Borderline high risk 240 and above High risk Cholesterol in HDL [Mass/Vol] 63 mg/dL High 40 - 60 mg/dL AO ADM SS Cholesterol in LDL [Mass/Vol] 21 mg/dL Normal 0 - 130 mg/dL AO ADM SS Triglyceride [Mass/Vol] 197 mg/dL High 0 - 150 mg/dL AO ADM SS Comment on above: Interpretive Data: T riglyceride Reference Interval: Less than 150 Normal 150-199 Borderline high risk 200-499 High risk 500 or higher Very high risk LIPIDon 09-06-2024 Cholesterol [Mass/Vol] 123 mg/dL Normal 0-200 [facility] Comment on above: Result Comment: Chol esterol Reference Interval: Less than 200 Desirable 200-239 Borderline high risk 240 and above High risk Performed By: #### M G, ANEU, CBC, VIDH, ADIFF, FERR, FT4 #### [address] [address] #### B12 #### [address] [address] Cholesterol in HDL [Mass/Vol] 63 mg/dL High 40-60 [facility] Comment on above: Performed By: #### M G, ANEU, CBC, VIDH, ADIFF, FERR, FT4 #### [address] [address] #### B12 #### [address] [address] Cholesterol in LDL [Mass/Vol] 21 mg/dL Normal 0-130 [facility] Comment on above: Performed By: #### M G, ANEU, CBC, VIDH, ADIFF, FERR, FT4 #### [address] [address] #### B12 #### [address] [address] Triglyceride [Mass/Vol] 197 mg/dL High 0-150 [facility] Comment on above: Result Comment: Trig lyceride Reference Interval: Less than 150 Normal 150-199 Borderline high risk 200-499 High risk 500 or higher Very high risk Performed By: #### M G, ANEU, CBC, VIDH, ADIFF, FERR, FT4 #### [address] [address] #### B12 #### [address] [address] RETO (AO)on 09-06-2024 Immature Retic Fraction 0.66 IRF High 0.20-0.46 [facility] Comment on above: Performed By: #### M G, ANEU, CBC, VIDH, ADIFF, FERR, FT4 #### [place] [address] #### B12 #### [address] [address] Reticulocytes, Auto 3.1 % High 0.2-2.3 [facility] Comment on above: Performed By: #### M G, ANEU, CBC, VIDH, ADIFF, FERR, FT4 #### [place] [address] [place], [place] [address] #### B12 #### [facility] [address] [place] [address] TSHon 09-06-2024 TSH Qn 5.70 m[IU]/L High 0.36-3.74 [facility] Comment on above: Performed By: #### L IPID, GFR, CMP, A1C, TSH #### [place] [address] [place], [place] [address] Type AND Screenon 09-06-2024 Ab SCREEN GEL Negative Normal [facility] Comment on above: Order Comment: PRETR ANSFUSION HGB = 6.8 HCT = 21.3 PERFORMED AT [facility].[id number] Performed By: #### M 100.1999, M1.2400 #### [facility] [address] [place], [address] Culture, Blood (WB)on 2023 CUB Blood cultures x2, f rom two different sites No growth in 5 days. [facility] Comment on above: Performed By: #### M , M1.2400 #### [facility] [address] [place], [address] CUB Blood cultures x2, f rom two different sites No growth in 5 days. Normal [facility] Comment on above: Performed By: #### M 200.1000 #### [facility] [address] [place], [address] Respiratory Cultureon 2023 RESPC Penicillin is the dr ug of choice for Beta Streptococcal infections. For Penicillin allergic patients, Erythromycin may be used. Streptococcus group A Amount Growth 2+ [facility] Comment on above: Performed By: #### M 100.1999, M1.2400 #### [facility] [address] [place], [address] Absolute neutrophil countOrd ered By: Jesse Bolanos on 12-27-2024 Neutrophils (Bld) [#/Vol] 13.1 10*3/uL High 2.0-7.7 [facility] Basic Metabolic Profile (BMP )on 08-18-2024 BUN/CRE 12.0 RATIO Normal 10-20 [facility] Comment on above: Performed By: #### M , #### [facility] [address] [place], [address] CA,Total 8.1 mg/dL Low 8.5-10.1 [facility] Comment on above: Performed By: #### M , #### [facility] [address] [place], [address] Chloride [Moles/Vol] 102 mmol/L Normal 98-107 [facility] Comment on above: Performed By: #### M , #### [facility] [address] [place], [address] CO2 [Moles/Vol] 19.0 mmol/L Low 21.0-32.0 [facility] Comment on above: Performed By: #### M , #### [facility] [address] [place], [address] Creatinine [Mass/Vol] 6.50 mg/dL High 0.55-1.02 [facility] Comment on above: Result Comment: The validity of the calculated GFR GFRAA in patients over 70 years has not been determined. Clinical correlation is essential. Performed By: #### M , #### [facility] [address] [place], [address] ECRCL 8.12 ml/min Normal [facility] Comment on above: Performed By: #### M , #### [facility] [address] [place], [address] EST GFR - AA 8 mL/min Low >60 [facility] Comment on above: Result Comment: Afri can [place] GFR Calc Performed By: #### M , #### [facility] [address] [place], [address] GAP 10 Normal 5-15 [facility] Comment on above: Performed By: #### M , #### [facility] [address] [place], [address] GFR/1.73 sq M.predicted among non-blacks MDRD (S/P/Bld) [Vol rate/Area] 7 mL/min/{1.73_m2} Low >60 [facility] Comment on above: Result Comment: Non- GFR Calc Performed By: #### M , #### [facility] [address] [place], [address] Glucose [Mass/Vol] 100 mg/dL Normal 74-106 [facility] Comment on above: Result Comment: Fast ing Glucose result from 100 to 125 mg/dL suggests IMPAIRED HOMEOSTASIS per A.D.A. criteria. Performed By: #### M , #### [facility] [address] [place], [address] Potassium [Moles/Vol] 3.8 mmol/L Normal 3.5-5.1 [facility] Comment on above: Performed By: #### M , #### [facility] [address] [place], [address] Sodium [Moles/Vol] 130 mmol/L Low 136-145 [facility] Comment on above: Performed By: #### M , #### [facility] [address] [place], [address] Urea nitrogen [Mass/Vol] 78 mg/dL High 7-18 [facility] Comment on above: Performed By: #### M 100.1999, M100.2400 #### [facility] [address] [place], [address] Basophil percentageOrdered B y: Jesse Bolanos on 08-18-2024 Basophils/100 WBC (Bld) 0.1 % 0-1 [facility] Blood urea nitrogen (BUN)/cr eatinine ratioOrdered By: Jesse Bolanos on 08-18-2024 Urea nitrogen/Creatinine [Mass ratio] 12.0 mg/mg - [facility] CBC W/Diff, Automatedon 07-24 PATH REV Reviewed Normal [facility] Comment on above: Result Comment: Neut rophilic leukocytosis. Normocytic anemia. Clinical correlation necessary. Aleks Merida M.D. 08/18/24 Pathologist comment added AMENDED REPORT 08/18/24 0843 PATH REV previously reported as: December Performed By: #### L 100.0100, L500.2500, L501.2300 #### [facility] [address] [place], [address] Absolute Lymph 1.02 X10 3/uL Normal 0.83-4.51 [facility] Comment on above: Performed By: #### M 100.1999, M100.2400 #### [facility] [address] [place], [address] Absolute Neut 13.1 X10 3/uL High 2.0-7.7 [facility] Comment on above: Performed By: #### M 100.1999, M100.2400 #### [facility] [address] [place], [address] Basophils/100 WBC (Bld) 0.1 % Normal 0-1 [facility] Comment on above: Performed By: #### M 100.1999, M100.2400 #### [facility] [address] [place], [address] Eosinophils/100 WBC (Bld) 0.6 % Normal 0-5 [facility] Comment on above: Performed By: #### M , #### [facility] [address] [place], [address] Erythrocyte distribution width (RBC) [Ratio] 15.3 % High 11.6-14.6 [facility] Comment on above: Performed By: #### M , #### [facility] [address] [place], [address] Hematocrit (Bld) [Volume fraction] 22.3 % Low 37-47 [facility] Comment on above: Performed By: #### M , #### [facility] [address] [place], [address] Hemoglobin (Bld) [Mass/Vol] 7.3 g/dL Low 12.0-15.0 [facility] Comment on above: Performed By: #### M , #### [facility] [address] [place], [address] IG% 0.900 Normal 0.0-0.9 [facility] Comment on above: Result Comment: IG% - Immature Granulocytes (promyelocytes, myelocytes and metamyelocytes) > 1% indicates that a LEFT SHIFT is Present. Performed By: #### M , #### [facility] [address] [place], [address] Lymphocytes/100 WBC (Bld) 6.7 % Low 19-41 [facility] Comment on above: Performed By: #### M , #### [facility] [address] [place], [address] MCH (RBC) [Entitic mass] 31.3 pg Normal 27.0-32.0 [facility] Comment on above: Performed By: #### M , #### [facility] [address] [place], [address] MCHC (RBC) [Mass/Vol] 32.7 g/dL Normal 32-36 [facility] Comment on above: Performed By: #### M , #### [facility] [address] [place], [address] MCV (RBC) [Entitic vol] 95.7 fL Normal 81-99 [facility] Comment on above: Performed By: #### M , #### [facility] [address] [place], [address] Monocytes/100 WBC (Bld) 5.4 % Normal 0-10 [facility] Comment on above: Performed By: #### M , #### [facility] [address] [place], [address] Neutrophils/100 WBC (Bld) 86.3 % High 47-70 [facility] Comment on above: Performed By: #### M , #### [facility] [address] [place], [address] Nucleated RBC (Bld) [#/Vol] 0 10*3/uL Normal 0-5 [facility] Comment on above: Performed By: #### M , #### [facility] [address] [place], [address] Platelet mean volume (Bld) [Entitic vol] 8.9 fL Normal 6.2-12.0 [facility] Comment on above: Performed By: #### M , #### [facility] [address] [place], [address] Platelets (Bld) [#/Vol] 218 10*3/uL Normal 150-450 [facility] Comment on above: Performed By: #### M , #### [facility] [address] [place], [address] RBC (Bld) [#/Vol] 2.33 10*6/uL Low 4.2-5.4 [facility] Comment on above: Performed By: #### M , #### [facility] [address] [place], [address] RDW SD 53.5 fl High 35.1-43.9 [facility] Comment on above: Performed By: #### M , #### [facility] [address] [place], [address] WBC (Bld) [#/Vol] 15.2 10*3/uL High 4.4-11.0 [facility] Comment on above: Performed By: #### M , #### [facility] [address] [place], [address] Carbon dioxide measurementOr dered By: Jesse Bolanos on 08-18-2024 CO2 [Moles/Vol] 19.0 mmol/L Low 21.0-32.0 [facility] Chest PA and Lateralon 08-18 Chest PA and Lateral [facility] [address] [place] [address] Chest PA and Lateral MR#: [id number] Acct: [id number] Name: MARCOS SHELTON Rep #: [id number] : 1950 F 74 From: Fitz Vizcaino MD PCP: Dr. Bell Maher MD Status: DIS ISAIAS Study: Chest PA and Lateral Date of Exam: 08/18/24 Exam# [id number] Ordering Dr: Jesse Bolanos DO [id number] STUDY: X-RAY CHEST REASON FOR EXAM: Female, 74 years old. Fever and cough TECHNIQUE: PA and 3 lateral views COMPARISON: 08/17/2024 FINDINGS: Lungs are expanded with persistent evidence of lingular infiltrate without effusion. There has been mild improvement since yesterday''s study. Right lung is clear. Normal size heart. Normal mediastinum and wendy. Normal visualized pulmonary arteries. There is atherosclerotic calcification of the aortic arch with tortuosity. Normal visualized thoracic spine. Stable appearance of the replaced right glenohumeral joint There is no demonstrated abnormality of the visualized soft tissue structures of the upper abdomen. RAD/Chest PA and Lateral IMPRESSION: Lingular infiltrate without effusion. Follow-up recommended to assure resolution. Mild improvement compared to yesterday''s study Electronically Signed: Osbaldo Vizcaino MD at 17:30 EST , CC: Dr. Jesse Bolanos DO; Dr. Bell Maher MD Presentation Team Member: Signed Normal [facility] Chloride measurementOrdered By: Jesse Bolanos on 08-18-2024 Chloride [Moles/Vol] 102 mmol/L 98-107 [facility] Discharge Instructionon 07-24 Discharge Instruction [facility] Medical Records Department [address] [place] [address] Instructions for Home/Discharge Instructions 08/18/24 1449 MR#: [id number] Acct: [id number] Name: MARCOS SHELTON Rep #: [id number] : 1950 74 From: Jesse Bolanos DO PCP: Dr. Bell Maher MD Status:ADM ISAIAS Discharge Instructions Diet Discharge Diet: - (Resume previous diet) DC O2, CPAP, BIPAP needs Home O2 Discharge instructions: No Dressing / Incision Discharge Activity: Return to Normal Activity Weight Bearing Status: Full weight bearing Follow Up Care Test Results: Test results from this visit will be discussed in further detail at your follow-up appointment, if applicable. Discharge Plan Admission Admit Date/Time: 08/17/24 11:43 Primary Reason for Your Visit: left lower lobe pneumonia Attending Provider: Jesse Bolanos Primary Care Provider: Bell Maher Consulting Providers: Daniele Walls Discharge Orders/Prescriptions Prescriptions: New cefuroxime axetil 500 mg tablet 500 mg PO .QOD Qty: 4 0RF Rx Instructions: start on 08/19/24 Continued clopidogrel 75 mg tablet 75 mg PO DAILY nitroglycerin 0.4 MG tablet 0.4 mg SUBLINGUAL Q5M PRN (Reason: Chest Pain) Patient Comments: chest pain aspirin 81 MG tablet 81 mg PO DAILYCM 0RF hydroxyzine HCl 25 MG tablet 25 mg PO Q6H PRN PRN (Reason: Itching) Patient Comments: take 1 tablet by mouth every 6 hours if needed omeprazole 40 MG capsule,delayed release(DR/EC) 40 mg PO BID furosemide 40 mg tablet 40 mg PO DAILY levetiracetam [Keppra] 500 mg tablet 500 mg PO BID Patient Comments: take 1 tablet by mouth twice a day potassium chloride 10 mEq tablet extended release 40 meq PO SUTUTHSA montelukast 10 mg tablet 10 mg PO DAILY levothyroxine 50 mcg tablet 75 mcg PO DAILY Patient Comments: take 1 tablet by mouth once daily metoprolol succinate 25 mg tablet extended release 24 hr 25 mg PO DAILY Patient Comments: take 1/2 tablet by mouth once daily ranolazine 500 mg tablet extended release 12 hr 500 mg PO BID Patient Comments: take 1 tablet by mouth twice a day hydrocodone-acetaminophen 5-325 mg tablet 1 tab PO Q8H PRN (Reason: pain) 2 Days Qty: 6 0RF albuterol sulfate 90 mcg/actuation HFA aerosol inhaler 1 puff inhalation Q6H PRN PRN (Reason: wheezing) rosuvastatin 40 mg tablet 40 mg PO DAILY Linzess 290 mcg capsule 290 mcg PO DAILY melatonin 10 mg capsule 30 mg PO QHS ondansetron 4 mg tablet,disintegrating 4 mg PO DAILY PRN (Reason: nausea and vomiting) multivitamin [Daily Multi-Vitamin] Tablet 1 tab PO DAILY Referrals / Follow Up: Bell Maher MD [Primary Care Provider] - See Referral Note (In 2 weeks, you will need a repeat chest x-ray) Disposition Disposition (needs filled in before D/C Order can be placed): Home, Self Care 08/18/24 1504 Jesse Bolanos DO CC: Dr. Daniele Walls MD; Dr. Bell Maher MD Signed Normal [facility] Eosinophil percentageOrdered By: Jesse Bolanos on 08-18-2024 Eosinophils/100 WBC (Bld) 0.6 % 0-5 [facility] Erythrocyte distribution wid th (RBC) [Ratio]Ordered By: Jesse Bolnaos on 08-18-2024 Erythrocyte distribution width (RBC) [Entitic vol] 53.5 fL High 35.1-43.9 [facility] Erythrocyte distribution wid th ratioOrdered By: Jesse Bolanos on 08-18-2024 Erythrocyte distribution width (RBC) [Ratio] 15.3 % High 11.6-14.6 [facility] Estimated glomerular filtrat ion rate (GFR) AmericanOrdered By: Jesse Bolanos on 08-18-2024 Estimated GFR (MDRD) Amer 8 mL/min Low >60 [facility] Comment on above: GFR Calc Estimation of creatinine heather aranceOrdered By: Jesse Bolanos on 08-18-2024 Estimated Creatinine Clearance Calc 8.12 ml/min [facility] Glomerular filtration rate ( GFR) estimationOrdered By: Jesse Bolanos on 08-18-2024 Estimated GFR (MDRD) Non-Af Amer 7 mL/min Low >60 [facility] Comment on above: Non- GFR Calc Glucose measurementOrdered B y: Jesse Bolanos on 08-18-2024 Glucose [Mass/Vol] 100 mg/dL 74-106 [facility] Comment on above: Fasting Glucose resu lt from 100 to 125 mg/dL suggests IMPAIRED HOMEOSTASIS per A.D.A. criteria. Gram Stainon 08-18-2024 GS Acceptable Specimen? Yes (<25 Epithelial cells per/lpf) Gram Stain 1+ Gram positive cocci Rare White Blood Cells No Epithelial cells Normal [facility] Comment on above: Performed By: #### M 100.2000, M100.2400 #### [facility] [address] [place], [address] Hematocrit Auto (Bld) [Volum e fraction]Ordered By: Jesse Bolanos on 08-18-2024 Hematocrit (Bld) [Volume fraction] 22.3 % Low 37-47 [facility] Hemoglobin measurementOrdere d By: Jesse Bolanos on 08-18-2024 Hemoglobin (Bld) [Mass/Vol] 7.3 g/dL Low 12.0-15.0 [facility] Immature granulocytes/100 WB C Auto (Bld)Ordered By: Jesse Bolanos on 08-18-2024 Immature granulocytes/100 WBC (Bld) 0.900 % 0.0-0.9 [facility] Comment on above: IG% - Immature Granu locytes (promyelocytes, myelocytes and metamyelocytes) > 1% indicates that a LEFT SHIFT is Present. Lymphocytes Auto (Unsp spec) [#/Vol]Ordered By: Jesse Bolanos on 08-18-2024 Lymphocytes (Bld) [#/Vol] 1.02 10*3/uL 0.83-4.51 [facility] Lymphocytes/100 WBC Auto (Un sp spec)Ordered By: Jesse Bolanos on 08-18-2024 Lymphocytes/100 WBC (Bld) 6.7 % Low 19-41 [facility] MCV (mean corpuscular volume ) determinationOrdered By: Jesse Bolanos on 08-18-2024 MCV (RBC) [Entitic vol] 95.7 fL 81-99 [facility] Mean corpuscular hemoglobin (MCH) determinationOrdered By: Jesse Bolanos on 08-18-2024 MCH (RBC) [Entitic mass] 31.3 pg 27.0-32.0 [facility] Mean corpuscular hemoglobin concentration (MCHC) determinationOrdered By: Jesse Bolanos on 08-18-2024 MCHC (RBC) [Mass/Vol] 32.7 g/dL 32-36 [facility] Mean platelet volume determi nationOrdered By: Jesse Bolanos on 08-18-2024 Platelet mean volume (Bld) [Entitic vol] 8.9 fL 6.2-12.0 [facility] Monocyte percentageOrdered B y: Jesse Bolanos on 08-18-2024 Monocytes/100 WBC (Bld) 5.4 % 0-10 [facility] Neutrophil percentageOrdered By: Jesse Bolanos on 08-18-2024 Neutrophils/100 WBC (Bld) 86.3 % High 47-70 [facility] Nucleated red blood cell per centageOrdered By: Jesse Bolanos on 08-18-2024 Nucleated RBC/100 WBC (Bld) [Ratio] 0 % 0-5 [facility] Platelet countOrdered By: Juan Bolanos on 08-18-2024 Platelets (Bld) [#/Vol] 218 10*3/uL 150-450 [facility] Potassium measurementOrdered By: Jesse Bolanos on 08-18-2024 Potassium [Moles/Vol] 3.8 mmol/L 3.5-5.1 [facility] RBC Auto (Bld) [#/Vol]Ordere d By: Jesse Bolanos on 08-18-2024 RBC (Bld) [#/Vol] 2.33 10*6/uL Low 4.2-5.4 [facility] Serum anion gap measurementO rdered By: Jesse Bolanos on 08-18-2024 Anion gap [Moles/Vol] 10 mmol/L 5-15 [facility] Serum or plasma calcium jaydon urement (mass/volume)Ordered By: Jesse Bolanos on 08-18-2024 Calcium [Mass/Vol] 8.1 mg/dL Low 8.5-10.1 [facility] Serum or plasma creatinine m easurement (mass/volume)Ordered By: Jesse Bolanos on 08-18-2024 Creatinine [Mass/Vol] 6.50 mg/dL High 0.55-1.02 [facility] Comment on above: The validity of the calculated GFR & GFRAA in patients over 70 years has not been determined. Clinical correlation is essential. Serum or plasma urea nitroge n measurement (mass/volume)Ordered By: Jesse Bolanos on 08-18-2024 Urea nitrogen [Mass/Vol] 78 mg/dL High 7-18 [facility] Sodium levelOrdered By: Jesse Bolanos on 08-18-2024 Sodium [Moles/Vol] 130 mmol/L Low 136-145 [facility] Urine Cultureon 08-18-[address] U[address] the dr ug of choice for Beta Streptococcal infections. For Penicillin allergic patients, Erythromycin may be used. Streptococcus group A [place] Count 50,000-80,000 Normal [facility] Comment on above: Performed By: #### M 100.2200 #### [facility] [address] [place], [address] White blood cell (WBC) count Ordered By: Jesse Bolanos on 08-18-2024 WBC (Bld) [#/Vol] 15.2 10*3/uL High 4.4-11.0 [facility] 12 Lead EKGon 08-17-2024 12 Lead EKG [facility] Cardiovascular Services [address] [place] [address] 12 Lead EKG 08/17/24 0724 MR#: [id number] Acct: [id number] Name: MARCOS SHELTON Rep #: [id number] : 1950 74 From: Tim Serrano MD Attending Dr: Dr. Jesse Bolanos, DO Status: A DM ISAIAS Ordering Dr: Ze Sterling DO Date: 08/17/24 Location: [facility] Sex: F C Admitted: 08/17/24 Test Reason : SOB Blood Pressure : */* mmHG Vent. Rate : 78 BPM Atrial Rate : 78 BPM P-R Int : 136 ms QRS Dur : 82 ms QT Int : 402 ms P-R-T Axes : 65 27 61 degrees QTcB Int : 458 ms Normal sinus rhythm Normal ECG Confirmed by TIM SERRANO MD ([id number]), science editor KIARA CONSTANTINO ([id number]) on 08/18/2024 9:42:19 AM Referred By: CORY Confirmed By: TIM SERRANO MD 08/18/24 0942 Date Tim Serrano MD CC: Dr. Ze Sterling DO; Dr. Jesse Bolanos DO; Dr. Bell Maher MD Signed Normal [facility] Basic Metabolic Profile (BMP )on 08-17-2024 BUN/CRE 11.1 RATIO Normal 10-20 [facility] Comment on above: Performed By: #### L 100.0100, L500.2500, L501.2300 #### [facility] [address] [place], [address] CA,Total 8.6 mg/dL Normal 8.5-10.1 [facility] Comment on above: Performed By: #### L 100.0100, L500.2500, L501.2300 #### [facility] [address] [place], [address] Chloride [Moles/Vol] 101 mmol/L Normal 98-107 [facility] Comment on above: Performed By: #### L 100.0100, L500.2500, L501.2300 #### [facility] [address] [place], [address] CO2 [Moles/Vol] 23.0 mmol/L Normal 21.0-32.0 [facility] Comment on above: Performed By: #### L 100.0100, L500.2500, L501.2300 #### [facility] [address] [place], [address] Creatinine [Mass/Vol] 6.01 mg/dL High 0.55-1.02 [facility] Comment on above: Result Comment: The validity of the calculated GFR GFRAA in patients over 70 years has not been determined. Clinical correlation is essential. Performed By: #### L 100.0100, L500.2500, L501.2300 #### [facility] [address] [place], [address] ECRCL 8.87 ml/min Normal [facility] Comment on above: Performed By: #### L 100.0100, L500.2500, L501.2300 #### [facility] [address] [place], [address] EST GFR - AA 9 mL/min Low >60 [facility] Comment on above: Result Comment: Afri can [place] GFR Calc Performed By: #### L 100.0100, L500.2500, L501.2300 #### [facility] [address] [place], [address] GAP 9 Normal 5-15 [facility] Comment on above: Performed By: #### L 100.0100, L500.2500, L501.2300 #### [facility] [address] [place], [address] GFR/1.73 sq M.predicted among non-blacks MDRD (S/P/Bld) [Vol rate/Area] 7 mL/min/{1.73_m2} Low >60 [facility] Comment on above: Result Comment: Non- GFR Calc Performed By: #### L 100.0100, L500.2500, L501.2300 #### [facility] [address] [place], [address] Glucose [Mass/Vol] 125 mg/dL High 74-106 [facility] Comment on above: Result Comment: Fast ing Glucose result from 100 to 125 mg/dL suggests IMPAIRED HOMEOSTASIS per A.D.A. criteria. Performed By: #### L 100.0100, L500.2500, L501.2300 #### [facility] [address] [place], [address] Potassium [Moles/Vol] 3.8 mmol/L Normal 3.5-5.1 [facility] Comment on above: Performed By: #### L 100.0100, L500.2500, L501.2300 #### [facility] [address] [place], [address] Sodium [Moles/Vol] 132 mmol/L Low 136-145 [facility] Comment on above: Performed By: #### L 100.0100, L500.2500, L501.2300 #### [facility] [address] [place], [address] Urea nitrogen [Mass/Vol] 67 mg/dL High 7-18 [facility] Comment on above: Performed By: #### L 100.0100, L500.2500, L501.2300 #### [facility] [address] [place], [address] Bilirubin Test strip Ql (U)O rdered By: Ze Sterling on 08-17-2024 Bilirubin Ql (U) Negative Negative [facility] Blood cultureOrdered By: Deven [place] on 08-17-2024 Bacteria identified Cx Nom (Bld) No growth in 5 days. [facility] Bacteria identified Cx Nom (Bld) No growth in 5 days. [facility] Chest 1 View (Portable)on Chest 1 View (Portable) [facility] Imaging Services [address] [place], [place] [address] Chest 1 View (Portable) MR#: [id number] Acct: [id number] Name: MARCOS SHELTON Rep #: [id number] : 1950 F 74 From: Mimi Wilson MD PCP: Dr. Bell Maher MD Status: REG ER Study: Chest 1 View (Portable) Date of Exam: 08/17/24 Exam# [id number] Ordering Dr: Ze Sterling DO [id number] INDICATION: cough EXAMINATION/TECHNIQUE: X-RAY - XR Chest 1 View COMPARISON: March 12, 2024 and MRI of the lumbar spine dated December 06, 2023 FINDINGS: LINES/DEVICES: None. LUNGS: There is a vague opacity within the left lower lung. No pneumothorax. MEDIASTINUM AND CARDIOVASCULAR STRUCTURES: Cardiac silhouette not enlarged. There is a round density projecting over the cardiac silhouette consistent with a hiatal hernia. BONES AND SOFT TISSUES: There is a stable right total shoulder arthroplasty in place. There are stable left sixth and seventh rib deformities consistent with old fractures. RAD/Chest 1 View (Portable) IMPRESSION: Vague opacity within the left lower lung, may reflect pneumonia and/or atelectasis, recommend follow-up chest radiograph 6-8 weeks. Electronically Signed: Mimi Wilson MD at 8:13 EST , CC: Dr. Ze Sterling DO; Dr. 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 Bell Maher MD Status:DIS ISAIAS Location: [place] [address] Assessment Plan Assessment/Plan (1) End stage renal disease on dialysis: (2) Anemia of chronic disease: PLAN: Plan This is a pleasant 74-year-old female with past medical history significant for ESRD who dialyzes at [facility] [place] followed by Dr. Reed, admitted for probable pneumonia, started on IV antibiotics, blood cultures pending. Nephrology consulted as patient has history of ESRD, for dialysis management. There is no acute indication for FINAL FINISHER FORGING DIES today, potassium is normal, volume status appears compensated, patient is on room air. Will plan for dialysis tomorrow over 4 hours and attempt fluid removal as patient/blood pressure tolerates. Patient has history of anemia of chronic disease, hemoglobin is 8.6. Will follow hemoglobin trends. Patient receives long-acting JOANN and iron at kidney center. Further orders forthcoming as hospitalization evolves, thank you for allowing us to participate in the care of Mr. Shelton. HPI Consult Data Date of Consult: 08/17/24 HPI Narrative HPI Narrative: MARCOS SHELTON, is a 74 F with past medical history significant for ESRD who presented to the emergency room today with complaints of feeling unwell and cough. Admitted for pneumonia. Patient dialyzes at [facility] [place] on a Wednesday schedule followed by Dr. Reed. Per patient she last dialyzed 08/11. Patient reports she did not go to dialysis on Wednesday as she was having diarrhea. Due to the holiday patient's dialysis clinic schedule is Wednesday this week. She was told by the staff at the kidney center to come to the emergency room today for further evaluation and treatment. Patient denies any fevers. States she is no longer having diarrhea. The patient is complaining of cough, feeling weak and feeling unwell. 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 Gastric reflux Former smoker Shortness of breath on exertion History of pain when walking History of edema History of echocardiogram Cardiology follow-up encounter History of heart attack Nonrheumatic mitral valve regurgitation History of DVT (deep vein thrombosis) Cellulitis of right lower extremity Renal insufficiency Congestive heart failure (CHF) Ulcer of right lower extremity with fat layer exposed Ulcer of left lower extremity with fat layer exposed Foot drop, left Lumbar disc disease Lumbar radiculopathy Spinal stenosis of lumbar region Rheumatoid arthritis Atherosclerotic heart disease of [place] coronary artery without angina pectoris Urinary retention ANDRIY (acute kidney injury) Cellulitis Hyperlipidemia Asthma Hypertension Peripheral neuropathy PAD (peripheral artery disease) Home Medications ???Medication ???Instructions ???Recorded ???Last Taken ???Type nitroglycerin 0.4 mg sublingual 0.4 mg sublingual Q5M PRN Chest 06/19/15 Unknown History tablet Pain aspirin 81 mg tablet,delayed 81 mg PO DAILYCM 11/05/17 08/16/24 Rx release hydroxyzine HCl 25 mg tablet 25 mg PO Q6H PRN PRN Itching 02/10/19 08/16/24 History omeprazole 40 mg capsule,delayed 40 mg PO BID GERD 04/11/19 08/16/24 History release clopidogrel 75 mg tablet 75 mg PO DAILY 10/10/21 08/16/24 History furosemide 40 mg tablet 40 mg PO DAILY 10/17/21 08/16/24 History levetiracetam 500 mg tablet 500 mg PO BID 10/17/21 08/16/24 History (Keppra) montelukast 10 mg tablet 10 mg PO DAILY 10/17/21 08/16/24 History potassium chloride 10 mEq 40 meq PO SUTUTHSA 10/17/21 08/15/24 History tablet,extended release levothyroxine 50 mcg tablet 75 mcg PO DAILY thyroid 10/27/21 08/16/24 History metoprolol succinate 25 mg 25 mg PO DAILY heart 10/27/21 08/16/24 History tablet,extended release 24 hr ranolazine 500 mg tablet,extended 500 mg PO BID heart 10/27/21 11/09/22 History release,12 hr hydrocodone-acetaminophen 5-325mg 1 tab PO Q8H PRN pain 2 days #6 08/06/22 08/16/24 Rx 5mg-325mg tabs albuterol sulfate 90 mcg/actuation 1 puff inhalation Q6H PRN PRN 08/17/24 08/16/24 History aerosol inhaler wheezing linaclotide 290 mcg capsule 290 mcg PO DAILY 08/17/24 08/16/24 History (Linzess) melatonin 10 mg capsule 30 mg PO QHS 08/17/24 08/16/24 History (more content not included)... Normal [facility] Emergency Department Summary on 08-17-2024 Emergency Department Summary [facility] Medical Records Department [address] [place] [address] Emergency Department Summary 08/17/24 MR#: [id number] Acct: [id number] Name: MARCOS SHELTON Rep #: [id number] : 1950 74 From: Ze Sterling DO PCP: Dr. Bell Maher MD Status:ADM ISAIAS Location: [facility] [id number] HPI History of Present Illness Chief Complaint: Shortness of Breath Informant: patient and spouse/S.O. Narrative Narrative: 74-year-old dialysis patient presenting to the emergency room with cough and weakness. Patient states for the month she has had cough and some shortness of breath. She is a very poor historian and it is extremely difficult to get her to provide an accurate information. At first she tells me that over the weekend she developed diarrhea but then she tells me it was last week but now she is telling me it was 3 days ago. She states she had it for 1 day and it resolved. She notes a sore throat persistent cough over the month no fevers and now has a sore throat. She states that she went to dialysis today but because she had not had it since last Wednesday (08/11) they sent her here. Dialysis called and said that she was choosing to come here because she felt poorly. Patient notes that she does make urine but denies urinary symptoms. [facility] Medical History History of renal dialysis Anemia Wound dehiscence Wears dentures Wears glasses Thyroid disease Walker as ambulation aid Arthritis History of renal disease High cholesterol Back pain Seizures Dietary restriction History of IBS Callaway esophagus Gastric reflux Former smoker Shortness of breath on exertion History of pain when walking History of edema History of echocardiogram Cardiology follow-up encounter History of heart attack Nonrheumatic mitral valve regurgitation History of DVT (deep vein thrombosis) Cellulitis of right lower extremity Renal insufficiency Congestive heart failure (CHF) Ulcer of right lower extremity with fat layer exposed Ulcer of left lower extremity with fat layer exposed Foot drop, left Lumbar disc disease Lumbar radiculopathy Spinal stenosis of lumbar region Rheumatoid arthritis Atherosclerotic heart disease of [place] coronary artery without angina pectoris Urinary retention ANDRIY (acute kidney injury) Cellulitis Hyperlipidemia Asthma Hypertension Peripheral neuropathy PAD (peripheral artery disease) Home Medications ???Medication ???Instructions ???Recorded ???Last Taken ???Type nitroglycerin 0.4 mg sublingual 0.4 mg sublingual Q5M PRN Chest 06/19/15 Unknown History tablet Pain aspirin 81 mg tablet,delayed 81 mg PO DAILYCM 11/05/17 08/16/24 Rx release hydroxyzine HCl 25 mg tablet 25 mg PO Q6H PRN PRN Itching 02/10/19 08/16/24 History omeprazole 40 mg capsule,delayed 40 mg PO BID GERD 04/11/19 08/16/24 History release clopidogrel 75 mg tablet 75 mg PO DAILY 10/10/21 08/16/24 History furosemide 40 mg tablet 40 mg PO DAILY 10/17/21 08/16/24 History levetiracetam 500 mg tablet 500 mg PO BID 10/17/21 08/16/24 History (Keppra) montelukast 10 mg tablet 10 mg PO DAILY 10/17/21 08/16/24 History potassium chloride 10 mEq 40 meq PO SUTUTHSA 10/17/21 08/15/24 History tablet,extended release levothyroxine 50 mcg tablet 75 mcg PO DAILY thyroid 10/27/21 08/16/24 History metoprolol succinate 25 mg 25 mg PO DAILY heart 10/27/21 08/16/24 History tablet,extended release 24 hr ranolazine 500 mg tablet,extended 500 mg PO BID heart 10/27/21 11/09/22 History release,12 hr hydrocodone-acetaminophen 5-325mg 1 tab PO Q8H PRN pain 2 days #6 08/06/22 08/16/24 Rx 5mg-325mg tabs albuterol sulfate 90 mcg/actuation 1 puff inhalation Q6H PRN PRN 08/17/24 08/16/24 History aerosol inhaler wheezing linaclotide 290 mcg capsule 290 mcg PO DAILY 08/17/24 08/16/24 History (Linzess) melatonin 10 mg capsule 30 mg PO QHS 08/17/24 08/16/24 History multivitamin (Daily Multi-Vitamin 1 tab PO DAILY 08/17/24 08/16/24 History tablet) ondansetron 4 mg disintegrating 4 mg PO DAILY PRN nausea and 08/17/24 Unknown History tablet vomiting rosuvastatin 40 mg tablet 40 mg PO DAILY 08/17/24 08/16/24 History Allergy/AdvReac Type Severity Reaction Status Date / Time colesevelam HCl (From Allergy Unknown Verified 08/17/24 06:47 WelChol) metolazone (From Zaroxolyn) Allergy Unknown Verified 08/17/24 06:47 nitrofurantoin Allergy Unknown Verified 08/17/24 06:47 macrocrystalline (From Macrodantin) Penicillins Allergy Unknown Verified 08/17/24 06:47 pravastatin sodium (From Allergy Unknown Verified 08/17/24 06:47 Pravachol) tramadol AdvReac Nausea Verified 08/17/24 06:47 Family History Father Heart diseas (more content not included)... Normal [facility] Epithelial cells.squamous LM Ql (Urine sed)Ordered By: Ze Sterling on 08-17-2024 Epithelial cells.squamous LM.HPF (Urine sed) [#/Area] 0 /[HPF] 5-10 [facility] Glucose Ql (U)Ordered By: Ham Sterling on 08-17-2024 Urine Glucose (UA) Normal mg/dl Normal [facility] Gram stainOrdered By: Jesse pratt on 08-17-2024 Microscopic observation Gram stain Nom (Unsp spec) [facility] H AND P Exam - Hospitaliston 08-17-2024 H&P Exam - Hospitalist [facility] Medical Records Department [address] [place] [address] H P Exam - Hospitalist 08/17/24 1602 MR#: [id number] Acct: [id number] Name: MARCOS SHELTON Rep #: [id number] : 1950 74 From: Jesse Bolanos DO PCP: Dr. Bell Maher MD Status:ADM ISAIAS Location: [place] [address] HPI - General General Date of Admission: 08/17/24 Date of Service: 08/17/24 Chief Complaint: Cough, malaise, nausea HPI Narrative MARCOS SHELTON, is a 74 F who presents to the emergency room at [facility] from a local dialysis center due to complaints of cough, malaise, nausea. Patient states she has not felt well in 2 to 3 weeks. Patient denies fevers or chills at this time. Patient does complain of a productive cough over the past 2 to 3 weeks, while I was in the room examining the patient, she expectorated some green sputum into a Kleenex. Workup in the emergency room included a CBC which showed an elevated white blood cell count of 22.7, hemoglobin was 8.6, chemistry profile was abnormal for a BUN of 67 and a creatinine of 6.01, urinalysis showed 25-50 white blood cells, there is +1 bacteria and leukocyte esterase was 500. Chest x-ray was obtained which showed a left lower lobe infiltrate indicating pneumonia and/or atelectasis. Patient was not hypoxic, she was ambulated and she remained nonhypoxic. Patient will be placed into observation status on MedSurg 3 for left lower lobe pneumonia and UTI, she was placed on IV Zithromax and Rocephin, she will be seen by nephrology and undergo dialysis. Labs will be repeated in the morning as well as a chest x-ray. [facility] Medical History (Updated 08/17/24 @ 14:45 by MARGARETH Holder) Kidney disease Dialysis patient History of renal dialysis Anemia Wound dehiscence Wears dentures Wears glasses Thyroid disease Walker as ambulation aid Arthritis History of renal disease High cholesterol Back pain Seizures Dietary restriction History of IBS [place] esophagus Gastric reflux Former smoker Shortness of breath on exertion History of pain when walking History of edema History of echocardiogram Cardiology follow-up encounter History of heart attack Nonrheumatic mitral valve regurgitation History of DVT (deep vein thrombosis) Cellulitis of right lower extremity Renal insufficiency Congestive heart failure (CHF) Ulcer of right lower extremity with fat layer exposed Ulcer of left lower extremity with fat layer exposed Foot drop, left Lumbar disc disease Lumbar radiculopathy Spinal stenosis of lumbar region Rheumatoid arthritis Atherosclerotic heart disease of [place] coronary artery without angina pectoris Urinary retention ANDRIY (acute kidney injury) Cellulitis Hyperlipidemia Asthma Hypertension Peripheral neuropathy PAD (peripheral artery disease) Home Medications ???Medication ???Instructions ???Recorded ???Last Taken ???Type nitroglycerin 0.4 mg sublingual 0.4 mg sublingual Q5M PRN Chest 06/19/15 Unknown History tablet Pain aspirin 81 mg tablet,delayed 81 mg PO DAILYCM 11/05/17 08/16/24 Rx release hydroxyzine HCl 25 mg tablet 25 mg PO Q6H PRN PRN Itching 02/10/19 08/16/24 History omeprazole 40 mg capsule,delayed 40 mg PO BID GERD 04/11/19 08/16/24 History release clopidogrel 75 mg tablet 75 mg PO DAILY 10/10/21 08/16/24 History furosemide 40 mg tablet 40 mg PO DAILY 10/17/21 08/16/24 History levetiracetam 500 mg tablet 500 mg PO BID 10/17/21 08/16/24 History (Keppra) montelukast 10 mg tablet 10 mg PO DAILY 10/17/21 08/16/24 History potassium chloride 10 mEq 40 meq PO SUTUTHSA 10/17/21 08/15/24 History tablet,extended release levothyroxine 50 mcg tablet 75 mcg PO DAILY thyroid 10/27/21 08/16/24 History metoprolol succinate 25 mg 25 mg PO DAILY heart 10/27/21 08/16/24 History tablet,extended release 24 hr ranolazine 500 mg tablet,extended 500 mg PO BID heart 10/27/21 11/09/22 History release,12 hr hydrocodone-acetaminophen 5-325mg 1 tab PO Q8H PRN pain 2 days #6 08/06/22 08/16/24 Rx 5mg-325mg tabs albuterol sulfate 90 mcg/actuation 1 puff inhalation Q6H PRN PRN 08/17/24 08/16/24 History aerosol inhaler wheezing linaclotide 290 mcg capsule 290 mcg PO DAILY 08/17/24 08/16/24 History (Linzess) melatonin 10 mg capsule 30 mg PO QHS 08/17/24 08/16/24 History multivitamin (Daily Multi-Vitamin 1 tab PO DAILY 08/17/24 08/16/24 History tablet) ondansetron 4 mg disintegrating 4 mg PO DAILY PRN nausea and 08/17/24 Unknown History tablet vomiting rosuvastatin 40 mg tablet 40 mg PO DAILY 08/17/24 08/16/24 History Allergy/AdvReac Type Severity Reaction Status Date / Time colesevelam HCl (From Allergy Unknown Verified 08/17/24 06:47 WelChol) metolazone (From Zaroxolyn) Allergy Unknown Verified 08/17/24 06:47 nitr (more content not included)... Normal [facility] Influenza virus A and B and SARS-CoV-2 (COVID-19) and Respiratory syncytial virus RNAOrdered By: Ze Sterling on 08-17-2024 SARS-CoV-2 (COVID-19) RNA GAVINO+probe Ql (Unsp spec) [facility] normalized rat io (INR) calculationOrdered By: Ze Sterling on 08-17-2024 INR Coag (Bld) [Relative time] 1.5 {INR} [facility] Ketones Test strip Ql (U)Ord ered By: Ze Sterling on 08-17-2024 Ketones Ql (U) Negative Negative [facility] L. pneumophila Ag Ql (U)Orde red By: Jesse Bolanos on 08-17-2024 Legionella Antigen [facility] Lactic Acidon 08-17-2024 Lactate [Moles/Vol] 0.9 mmol/L Normal 0.4-1.9 [facility] Comment on above: Order Comment: Y Performed By: #### M 100.2000, M100.2400 #### [facility] [address] [place], [place], [id number] Lactic acid measurementOrder ed By: Ze Sterling on 08-17-2024 Lactate [Moles/Vol] 0.9 mmol/L 0.4-2.0 [facility] Legionella Antigen Urineon 1 10-18-2023 LEGU URINE, CLEAN CATCH Legionella Antigen result interpretation: L pneumo Ag Ur Ql Negative Presumptive negative for Legionella pneumophila serogroup 1 antigen in urine, suggesting no recent or current infection. Legionella Ag, Urine Negative (See interpretation below) Normal [facility] Comment on above: Performed By: #### M 300.4500 #### [facility] [address] [place], [address] M100.678on 08-17-2024 M100.678 Pending SARS-CoV-2 (COVID 19) Negative INFLUENZA A Negative INFLUENZA B Negative RSV PCR Negative Normal [facility] Comment on above: Performed By: #### M 100.678 #### [facility] [address] [place], [address] Microorganism identified Cx Nom (Unsp spec)Ordered By: Jesse Bolanos on 08-17-2024 Respiratory Culture Streptococcus group A Abnormal [facility] Microscopic analysis of urin e for red blood cells (RBC)Ordered By: Ze Sterling on 08-17-2024 Urine RBC 0-5 SEEN /hpf 0-5 [facility] Mucus LM Ql (Urine sed)Order ed By: Ze Sterling on 08-17-2024 Mucus Ql (Urine sed) 0 SEEN /hpf [facility] Neutrophils.hypersegmented ( Bld) [#/Vol]Ordered By: Ze Sterling on 08-17-2024 Hypersegmented Neutrophils 1+ High [facility] Nitrite Test strip Ql (U)Ord ered By: Ze Sterling on 08-17-2024 Nitrite Ql (U) Negative Negative [facility] Partial Thromboplast Timeon 08-17-2024 aPTT Coag (Bld) [Time] 45.3 s High 24.1-36.2 [facility] Comment on above: Performed By: #### M 100.2000, M100.2400 #### [facility] [address], [address] Pathologist review Matt (Unsp spec) [Interp]Ordered By: Ze Sterling on 08-17-2024 Differential Pathologist's Review Reviewed [facility] Comment on above: Previous reported re sult: Madhavi montaño Edited by: FAROOQ on 08/18/24:0843Neutrophilic leukocytosis.Normocytic anemia.Clinical correlation necessary.Aleks Merida M.D. 08/18/24Pathologist comment added AMENDED REPORT 08/18/24 0843 PATH REV previously reported as: Madhavi montaño Phosphoruson 08-17-2024 Phosphate [Mass/Vol] 4.9 mg/dL Normal 2.5-4.9 [facility] Comment on above: Performed By: #### L 100.0100, L500.2500, L501.2300 #### [facility] [address] [place], [place], [id number] Phosphorus measurementOrdere d By: Ze Sterling on 08-17-2024 Phosphorus Level 4.9 mg/dL 2.5-4.9 [facility] Protein Test strip Ql (U)Ord ered By: Ze Sterling on 08-17-2024 Protein Ql (U) 100 mg/dl High Negative [facility] Prothrombin Time w/INRon INR Coag (PPP) [Relative time] 1.5 {INR} Normal [facility] Comment on above: Performed By: #### M , #### [facility] [address] [place], [address] PT Coag (PPP) [Time] 17.7 s High 11.7-14.9 [facility] Comment on above: Performed By: #### M , #### [facility] [address] [place], [address] Prothrombin timeOrdered By: Ze Sterling on 08-17-2024 PT Coag (PPP) [Time] 17.7 s High 11.7-14.9 [facility] Strep pneumoniae Antig(UR,CS F)on 08-17-2024 STPAG URINE INTERPRETATION Strep pneumoniae Antig(UR,CSF) Negative Urine Presumptive negative for pneumococcal pneumonia, suggesting no current or recent pneumococcal infection. Infection due to S pneumoniae cannot be ruled out since the antigen present in the sample may be below the detection limit of the test. Strep pneumo Test Negative URINE (See interpretation below) Normal [facility] Comment on above: Performed By: #### M , #### [facility] [address] [place], [address] Streptococcus pneumoniae ant igen assayOrdered By: Jesse Bolanos on 08-17-2024 Streptococcus pneumoniae Antigen (M [facility] Transitional cells LM Ql (Ur ine sed)Ordered By: Ze Sterling on 08-17-2024 Urine Transitional Epithelial Cells 0-5 SEEN /hpf 0-5 [facility] Urinalysis, Completeon 08-17 BACTERIA 1+ /hpf Normal None Seen [facility] Comment on above: Order Comment: COLLE CTOR TO SPECIFY Performed By: #### M , #### [facility] [address] [place], [id number] EPI,SQUAMOUS 0-5 SEEN Normal 5-10 [facility] Comment on above: Order Comment: ANNA MARIE CTOR TO SPECIFY Performed By: #### M 100.1999, M100.2400 #### [facility] [address] [place], [address] EPI,TRANSITION 0-5 SEEN Normal 0-5 [facility] Comment on above: Order Comment: ANNA MARIE CTOR TO SPECIFY Performed By: #### M 100.1999, M100.2400 #### [facility] [address] [place], [address] RBC 0-5 SEEN Normal 0-5 [facility] Comment on above: Order Comment: ANNA MARIE CTOR TO SPECIFY Performed By: #### M 100.1999, 00.2400 #### [facility] [address] [place], [address] WBC 25-50 SEEN Normal 0-5 [facility] Comment on above: Order Comment: ANNA MARIE CTOR TO SPECIFY Performed By: #### M 100.1999, M100.2400 #### [facility] [address] [place], [address] Mucus Ql (Urine sed) 0 SEEN Normal [facility] Comment on above: Order Comment: ANNA MARIE CTOR TO SPECIFY Performed By: #### M , .2400 #### [facility] [address] [place], [address] Urine blood detectionOrdered By: Ze Sterling on 08-17-2024 Urine Occult Blood 150 /ul High Negative [facility] Urine clarityOrdered By: Deven Sterling on 08-17-2024 Clarity (U) Sl. Cloudy Clear [facility] Urine color determinationOrd ered By: Ze Sterling on 08-17-2024 Color (U) Yellow Yellow [facility] Urine cultureOrdered By: Deven Sterling on 08-17-2024 Bacteria identified Cx Nom (U) Streptococcus group A Abnormal [facility] Urine leukocyte esterase det ection by dipstickOrdered By: Ze Sterling on 08-17-2024 Leukocyte esterase Test strip Ql (U) 500 /ul High Negative [facility] Urine pHOrdered By: Ze kirkland on 08-17-2024 pH (U) 6.0 [pH] 5.0 - 8.0 [facility] Urine sediment bacteria coun t by microscopy (number/high power field)Ordered By: Ze Sterling on 08-17-2024 Bacteria LM.HPF (Urine sed) [#/Area] 1 /[HPF] None Seen [facility] Urine specific gravity measu rementOrdered By: Ze Sterling on 08-17-2024 Specific gravity (U) [Rel density] 1.015 1.002-1.030 [facility] Urobilinogen Ql (U)Ordered B y: Ze Sterling on 08-17-2024 Urobilinogen (U) [Mass/Vol] 1 mg/dL High Normal [facility] White blood cell countOrdere d By: Ze Sterling on 08-17-2024 Urine WBC 25-50 SEEN /hpf 0-5 [facility] aPTT Coag (PPP) [Time]Ordere d By: Ze Sterling on 08-17-2024 aPTT Coag (Bld) [Time] 45.3 s High 24.1-36.2 [facility] .Auto Diffon 06-07-2024 Basophil, Absolute 0.1 10 3/mcL Normal 0.0-0.2 [facility] Comment on above: Performed By: #### M G, ANEU, CBC, VIDH, ADIFF, FERR, FT4 #### [facility] [address] [place] [address] #### B12 #### [address] [address] Basophils/100 WBC (Bld) 0.9 % Normal 0.0-2.5 [facility] Comment on above: Performed By: #### M G, ANEU, CBC, VIDH, ADIFF, FERR, FT4 #### [address] [address] #### B12 #### [address] [address] Eosinophil, Absolute 0.2 10 3/mcL Normal 0.0-0.7 [facility] Comment on above: Performed By: #### M G, ANEU, CBC, VIDH, ADIFF, FERR, FT4 #### [address] [address] #### B12 #### [address] [address] Eosinophils/100 WBC (Bld) 2.8 % Normal 0.0-7.0 [facility] Comment on above: Performed By: #### M G, ANEU, CBC, VIDH, ADIFF, FERR, FT4 #### [address] [address] #### B12 #### [address] [address] Lymphocyte, Absolute 1.2 10 3/mcL Normal 0.9-4.3 [facility] Comment on above: Performed By: #### M G, ANEU, CBC, VIDH, ADIFF, FERR, FT4 #### [address] [address] #### B12 #### [address] [address] Lymphocytes/100 WBC (Bld) 20.7 % Normal 20.0-40.0 [facility] Comment on above: Performed By: #### M G, ANEU, CBC, VIDH, ADIFF, FERR, FT4 #### [address] [address] #### B12 #### [address] [address] Monocyte, Absolute 0.4 10 3/mcL Normal 0.1-1.4 [facility] Comment on above: Performed By: #### M G, ANEU, CBC, VIDH, ADIFF, FERR, FT4 #### [address] [place] [address] #### B12 #### [address] [address] Monocytes/100 WBC (Bld) 7.8 % Normal 2.0-13.0 [facility] Comment on above: Performed By: #### M G, ANEU, CBC, VIDH, ADIFF, FERR, FT4 #### [address] [address] #### B12 #### [address] [address] Neutrophils/100 WBC (Bld) 67.8 % Normal 50.0-75.0 [facility] Comment on above: Performed By: #### M G, ANEU, CBC, VIDH, ADIFF, FERR, FT4 #### [address] [address] #### B12 #### [address] [address] .GFRon 06-07-2024 GFR 30 ml/min/1.73sqm Normal [facility] Comment on above: Result Comment: GFR Population mean for , Non- Americans Ages 20-29 = 116 mL/min/1.73 sq.m. Ages 30-39 = 107 mL/min/1.73 sq.m. Ages 40-49 = 99 mL/min/1.73 sq.m. Ages 50-59 = 93 mL/min/1.73 sq.m. Ages 60-69 = 85 mL/min/1.73 sq.m. Ages 70+ = 75 mL/min/1.73 sq.m. Chronic Kidney Disease: Less than 60 mL/min/1.73 square meters End Stage Renal Disease: Less than 15 mL/min/1.73 square meters Performed By: #### L IPID, GFR, CMP, A1C, TSH #### [address] [address] GFR Non- 24 ml/min/1.73sqm Normal [facility] Comment on above: Result Comment: GFR Population mean for , Non- Americans Ages 20-29 = 116 mL/min/1.73 sq.m. Ages 30-39 = 107 mL/min/1.73 sq.m. Ages 40-49 = 99 mL/min/1.73 sq.m. Ages 50-59 = 93 mL/min/1.73 sq.m. Ages 60-69 = 85 mL/min/1.73 sq.m. Ages 70+ = 75 mL/min/1.73 sq.m. Chronic Kidney Disease: Less than 60 mL/min/1.73 square meters End Stage Renal Disease: Less than 15 mL/min/1.73 square meters Performed By: #### L IPID, GFR, CMP, A1C, TSH #### [address] [address] .NEUABSon 06-07-2024 Neutrophil, Absolute 3.8 10 3/mcL Normal 2.3-8.1 [facility] Comment on above: Performed By: #### M G, ANEU, CBC, VIDH, ADIFF, FERR, FT4 #### [address] [address] #### B12 #### [place] [address] A1Con 06-07-2024 Glucose [Mass/Vol] 105 mg/dL Normal [facility] Comment on above: Result Comment: Cindy mated Average Glucose calculated by equation ((28.7xA1C)-46.7) Estimated average glucose (eAG) is a calculated value from Hemoglobin A1C and is senior sales representative of the average blood glucose level in the last 2-3 month period. Normal range: less than 114 mg/dL Performed By: #### L IPID, GFR, CMP, A1C, TSH #### [address] [address] HbA1c (Bld) [Mass fraction] 5.3 % Normal 4.3-6.4 [facility] Comment on above: Performed By: #### L IPID, GFR, CMP, A1C, TSH #### [address] [address] B12on 06-07-2024 Cobalamin (Vitamin B12) [Mass/Vol] 956 pg/mL High 211-911 [facility] Comment on above: Performed By: #### L IPID, GFR, CMP, A1C, TSH #### [place] [address] CBCon 06-07-2024 Erythrocyte distribution width (RBC) [Ratio] 14.4 % Normal 11.5-15.5 [facility] Comment on above: Performed By: #### M G, ANEU, CBC, VIDH, ADIFF, FERR, FT4 #### [place] [address] #### B12 #### [place] [address] Hematocrit (Bld) [Volume fraction] 35.7 % Normal 34.0-46.0 [facility] Comment on above: Performed By: #### M G, ANEU, CBC, VIDH, ADIFF, FERR, FT4 #### [place] [address] #### B12 #### [place] [address] Hgb 12.2 G/dL Normal 12.0-16.0 [facility] Comment on above: Performed By: #### M G, ANEU, CBC, VIDH, ADIFF, FERR, FT4 #### [place] [address] #### B12 #### [place] [address] MCH (RBC) [Entitic mass] 32.8 pg Normal 27.0-33.0 [facility] Comment on above: Performed By: #### M G, ANEU, CBC, VIDH, ADIFF, FERR, FT4 #### [place] [address] #### B12 #### [place] [address] MCHC 34.1 G/dL Normal 32.0-36.0 [facility] Comment on above: Performed By: #### M G, ANEU, CBC, VIDH, ADIFF, FERR, FT4 #### [place] [address] #### B12 #### [place] [address] MCV (RBC) [Entitic vol] 96.2 fL Normal 80.0-99.0 [facility] Comment on above: Performed By: #### M G, ANEU, CBC, VIDH, ADIFF, FERR, FT4 #### [place] [address] #### B12 #### [place] [address] Platelet 207 10 3/mcL Normal 150-450 [facility] Comment on above: Performed By: #### M G, ANEU, CBC, VIDH, ADIFF, FERR, FT4 #### [place] [address] #### B12 #### [place] [address] Platelet mean volume (Bld) [Entitic vol] 8.0 fL Normal 6.6-10.5 [facility] Comment on above: Performed By: #### M G, ANEU, CBC, VIDH, ADIFF, FERR, FT4 #### [place] [address] #### B12 #### [place] [address] RBC 3.72 10 6/mcL Low 4.10-5.30 [facility] Comment on above: Performed By: #### M G, ANEU, CBC, VIDH, ADIFF, FERR, FT4 #### [place] [address] #### B12 #### [place] [address] WBC 5.6 10 3/mcL Normal 4.5-10.8 [facility] Comment on above: Performed By: #### M G, ANEU, CBC, VIDH, ADIFF, FERR, FT4 #### [address] [address] #### B12 #### [address] 06-07-2024 Albumin Level 3.9 G/dL Normal 3.4-4.8 [facility] Comment on above: Performed By: #### L IPID, GFR, CMP, A1C, TSH #### [place] [id number] Albumin/Globulin [Mass ratio] 1.1 {ratio} Normal 1.1-2.5 [facility] Comment on above: Performed By: #### L IPID, GFR, CMP, A1C, TSH #### [place] [address] ALP [Catalytic activity/Vol] 104 U/L Normal 40-135 [facility] Comment on above: Performed By: #### L IPID, GFR, CMP, A1C, TSH #### [place] [id number] ALT [Catalytic activity/Vol] 28 U/L Normal 14-59 [facility] Comment on above: Performed By: #### L IPID, GFR, CMP, A1C, TSH #### [place] [id number] AST [Catalytic activity/Vol] 26 U/L Normal 10-40 [facility] Comment on above: Performed By: #### L IPID, GFR, CMP, A1C, TSH #### [address] [address] Bili Total 0.6 mg/dL Normal 0.2-1.0 [facility] Comment on above: Result Comment: Use of this assay is not recommended for patients undergoing treatment with eltrombopag due to the potential for falsely elevated results. Performed By: #### L IPID, GFR, CMP, A1C, TSH #### [place] [id number] BUN/Creatinine Ratio 6 ratio Low 7-27 [facility] Comment on above: Performed By: #### L IPID, GFR, CMP, A1C, TSH #### [address] [address] Calcium [Mass/Vol] 9.6 mg/dL Normal 8.4-10.2 [facility] Comment on above: Performed By: #### L IPID, GFR, CMP, A1C, TSH #### [address] [address] Chloride [Moles/Vol] 96 mmol/L Low 98-107 [facility] Comment on above: Performed By: #### L IPID, GFR, CMP, A1C, TSH #### [address] [address] CO2 [Moles/Vol] 31 mmol/L Normal 23-31 [facility] Comment on above: Performed By: #### L IPID, GFR, CMP, A1C, TSH #### [place] [address] Creatinine [Mass/Vol] 2.01 mg/dL High 0.55-1.02 [facility] Comment on above: Result Comment: Test ing performed on Siemens Dimension EXL analyzer using a modified kinetic Masoud technique. Performed By: #### L IPID, GFR, CMP, A1C, TSH #### [address] [address] Electrolyte Balance 11.0 mEq/L Normal 4.0-15.0 [facility] Comment on above: Performed By: #### L IPID, GFR, CMP, A1C, TSH #### [address] [address] Globulin 3.5 G/dL Normal [facility] Comment on above: Performed By: #### L IPID, GFR, CMP, A1C, TSH #### [address] [address] Glucose [Mass/Vol] 109 mg/dL Normal 83-110 [facility] Comment on above: Performed By: #### L IPID, GFR, CMP, A1C, TSH #### [place] [id number] Potassium [Moles/Vol] 3.6 mmol/L Normal 3.5-5.1 [facility] Comment on above: Performed By: #### L IPID, GFR, CMP, A1C, TSH #### [address] [address] Sodium [Moles/Vol] 138 mmol/L Normal 136-145 [facility] Comment on above: Performed By: #### L IPID, GFR, CMP, A1C, TSH #### [address] [address] Total Protein 7.4 G/dL Normal 6.4-8.2 [facility] Comment on above: Performed By: #### L IPID, GFR, CMP, A1C, TSH #### [place] [id number] Urea nitrogen [Mass/Vol] 12 mg/dL Normal 7-18 [facility] Comment on above: Performed By: #### L IPID, GFR, CMP, A1C, TSH #### [address] [address] [place] 06-07-2024 Ferritin [Mass/Vol] 2522.0 ng/mL High 8.0-252.0 [facility] Comment on above: Performed By: #### M G, ANEU, CBC, VIDH, ADIFF, FERR, FT4 #### [address] [address] #### B12 #### [address] [address] FT4on 06-07-2024 Free T4 [Mass/Vol] 1.03 ng/dL Normal 0.76-1.46 [facility] Comment on above: Performed By: #### L IPID, GFR, CMP, A1C, TSH #### [address] [address] LABORATORYOrdered By: SYSTEM SYSTEM on 06-07-2024 Albumin BCP dye [Mass/Vol] 3.9 G/dL Normal 3.4 - 4.8 G/dL AO ADM SS Albumin/Globulin [Mass ratio] 1.1 {ratio} Normal 1.1 - 2.5 ratio AO ADM SS ALP [Catalytic activity/Vol] 104 U/L Normal 40 - 135 U/L AO ADM SS ALT With P-5'-P [Catalytic activity/Vol] 28 U/L Normal 14 - 59 U/L AO ADM SS AST With P-5'-P [Catalytic activity/Vol] 26 U/L Normal 10 - 40 U/L AO ADM SS Bilirubin [Mass/Vol] 0.6 mg/dL Normal 0.2 - 1 .0 mg/dL AO ADM SS Comment on above: Interpretive Data: U se of this assay is not recommended for patients undergoing treatment with eltrombopag due to the potential for falsely elevated results. Calcium [Mass/Vol] 9.6 mg/dL Normal 8.4 - 10. 2 mg/dL AO ADM SS Chloride [Moles/Vol] 96 mmol/L Low 98 - 10 7 mmol/L AO ADM SS CO2 [Moles/Vol] 31 mmol/L Normal 23 - 31 mmol/L AO ADM SS Creatinine [Mass/Vol] 2.01 mg/dL High 0.55 - 1.02 mg/dL AO ADM SS Comment on above: Interpretive Data: T esting performed on Siemens Dimension EXL analyzer using a modified kinetic Masoud technique. Electrolyte Balance 11.0 mEq/L Normal 4.0 - 15 .0 mEq/L AO ADM SS GFR/1.73 sq M.predicted among blacks MDRD (S/P/Bld) [Vol rate/Area] 30 ml/min/1.73sqm Invalid Interpretation Code AO Chemistry S Comment on above: Interpretive Data: GFR Population mean for , Non- Americans Ages 20-29 = 116 mL/min/1.73 sq.m. Ages 30-39 = 107 mL/min/1.73 sq.m. Ages 40-49 = 99 mL/min/1.73 sq.m. Ages 50-59 = 93 mL/min/1.73 sq.m. Ages 60-69 = 85 mL/min/1.73 sq.m. Ages 70+ = 75 mL/min/1.73 sq.m. Chronic Kidney Disease: Less than 60 mL/min/1.73 square meters End Stage Renal Disease: Less than 15 mL/min/1.73 square meters GFR/1.73 sq M.predicted among non-blacks MDRD (S/P/Bld) [Vol rate/Area] 24 ml/min/1.73sqm Invalid Interpretation Code AO Chemistry S Comment on above: Interpretive Data: GFR Population mean for , Non- Americans Ages 20-29 = 116 mL/min/1.73 sq.m. Ages 30-39 = 107 mL/min/1.73 sq.m. Ages 40-49 = 99 mL/min/1.73 sq.m. Ages 50-59 = 93 mL/min/1.73 sq.m. Ages 60-69 = 85 mL/min/1.73 sq.m. Ages 70+ = 75 mL/min/1.73 sq.m. Chronic Kidney Disease: Less than 60 mL/min/1.73 square meters End Stage Renal Disease: Less than 15 mL/min/1.73 square meters Globulin 3.5 G/dL Invalid Interpretation Code AO ADM SS Glucose [Mass/Vol] 105 mg/dL Invalid Interpretation Code AO Chemistry S Comment on above: Interpretive Data: E stimated average glucose (eAG) is a calculated value from Hemoglobin A1C and is senior sales representative of the average blood glucose level in the last 2-3 month period. Normal range: less than 114 mg/dL Glucose [Mass/Vol] 109 mg/dL Normal 83 - 110 mg/dL AO ADM SS HbA1c (Bld) [Mass fraction] 5.3 % Normal 4.3 - 6.4 % AO ADM SS Potassium [Moles/Vol] 3.6 mmol/L Normal 3.5 - 5.1 mmol/L AO ADM SS Protein [Mass/Vol] 7.4 G/dL Normal 6.4 - 8.2 G/dL AO ADM SS Sodium [Moles/Vol] 138 mmol/L Normal 136 - 145 mmol/L AO ADM SS TSH Qn 2.54 m[IU]/L Normal 0.36 - 3.74 mcIU/mL AO ADM SS Urea nitrogen [Mass/Vol] 12 mg/dL Normal 7 - 18 mg/dL AO ADM SS Urea nitrogen/Creatinine [Mass ratio] 6 ratio Low 7 - 27 ratio AO ADM SS 25-hydroxyvitamin D3 [Mass/Vol] 52.9 ng/mL Invalid Interpretation Code AO ADM SS Comment on above: Interpretive Data: I nterpretive Values Based on Total 25(OH) Vitamin D: Deficient <20 ng/mL Insufficient 20 - <30 ng/mL Sufficient 30-100 ng/mL Basophils (Bld) [#/Vol] 0.1 103/mcL Normal 0.0 - 0.2 10^3/mcL AO Workflow SS Basophils/100 WBC (Bld) 0.9 % Normal 0.0 - 2.5 % AO Workflow SS Cobalamin (Vitamin B12) [Mass/Vol] 956 pg/mL High 211 - 911 pg/mL AH ADM SS Eosinophil, Absolute 0.2 103/mcL Normal 0.0 - 0 .7 10^3/mcL AO Workflow SS Eosinophils/100 WBC (Bld) 2.8 % Normal 0.0 - 7.0 % AO Workflow SS Erythrocyte distribution width (RBC) [Ratio] 14.4 % Normal 11.5 - 15.5 % AO Workflow SS Ferritin [Mass/Vol] 2522.0 ng/mL High 8.0 - 25 2.0 ng/mL AO ADM SS Free T4 [Mass/Vol] 1.03 ng/dL Normal 0.76 - 1. 46 ng/dL AO ADM SS Hematocrit (Bld) [Volume fraction] 35.7 % Normal 34.0 - 46.0 % AO Workflow SS Hemoglobin (Bld) [Mass/Vol] 12.2 G/dL Normal 12.0 - 16.0 G/dL AO Workflow SS Lymphocytes (Bld) [#/Vol] 1.2 103/mcL Normal 0.9 - 4.3 10^3/mcL AO Workflow SS Lymphocytes/100 WBC (Bld) 20.7 % Normal 20.0 - 40.0 % AO Workflow SS Magnesium [Mass/Vol] 1.9 mg/dL Normal 1.8 - 2 .4 mg/dL AO ADM SS MCH (RBC) [Entitic mass] 32.8 pg Normal 27.0 - 33.0 pg AO Workflow SS MCHC 34.1 G/dL Normal 32.0 - 36.0 G/dL AO Workflow SS MCV (RBC) [Entitic vol] 96.2 fL Normal 80.0 - 99.0 fL AO Workflow SS Monocytes (Bld) [#/Vol] 0.4 103/mcL Normal 0.1 - 1.4 10^3/mcL AO Workflow SS Monocytes/100 WBC (Bld) 7.8 % Normal 2.0 - 13.0 % AO Workflow SS Neutrophils (Bld) [#/Vol] 3.8 103/mcL Normal 2.3 - 8.1 10^3/mcL AO Workflow SS Neutrophils/100 WBC (Bld) 67.8 % Normal 50.0 - 75.0 % AO Workflow SS Platelet mean volume (Bld) [Entitic vol] 8.0 fL Normal 6.6 - 10.5 fL AO Workflow SS Platelets (Bld) [#/Vol] 207 103/mcL Normal 150 - 450 10^3/mcL AO Workflow SS RBC (Bld) [#/Vol] 3.72 106/mcL Low 4.10 - 5.3 0 10^6/mcL AO Workflow SS WBC (Bld) [#/Vol] 5.6 103/mcL Normal 4.5 - 10.8 10^3/mcL AO Workflow SS LABORATORYOrdered By: Brenda Monterroso on 06-07-2024 Cholesterol [Mass/Vol] 151 mg/dL Normal 0 - 200 mg/dL AO ADM SS Comment on above: Interpretive Data: C holesterol Reference Interval: Less than 200 Desirable 200-239 Borderline high risk 240 and above High risk Cholesterol in HDL [Mass/Vol] 76 mg/dL High 40 - 60 mg/dL AO ADM SS Cholesterol in LDL [Mass/Vol] 46 mg/dL Normal 0 - 130 mg/dL AO ADM SS Triglyceride [Mass/Vol] 147 mg/dL Normal 0 - 150 mg/dL AO ADM SS Comment on above: Interpretive Data: T riglyceride Reference Interval: Less than 150 Normal 150-199 Borderline high risk 200-499 High risk 500 or higher Very high risk LIPIDon 06-07-2024 Cholesterol [Mass/Vol] 151 mg/dL Normal 0-200 [facility] Comment on above: Result Comment: Chol esterol Reference Interval: Less than 200 Desirable 200-239 Borderline high risk 240 and above High risk Performed By: #### L IPID, GFR, CMP, A1C, TSH #### [place] [id number] [place], [place] [address] Cholesterol in HDL [Mass/Vol] 76 mg/dL High 40-60 [facility] Comment on above: Performed By: #### L IPID, GFR, CMP, A1C, TSH #### [place] [id number] [place], [place] [address] Cholesterol in LDL [Mass/Vol] 46 mg/dL Normal 0-130 [facility] Comment on above: Performed By: #### L IPID, GFR, CMP, A1C, TSH #### [address] [address] Triglyceride [Mass/Vol] 147 mg/dL Normal 0-150 [facility] Comment on above: Result Comment: Trig lyceride Reference Interval: Less than 150 Normal 150-199 Borderline high risk 200-499 High risk 500 or higher Very high risk Performed By: #### L IPID, GFR, CMP, A1C, TSH #### [address] [address] MGon 06-07-2024 Magnesium [Mass/Vol] 1.9 mg/dL Normal 1.8-2.4 [facility] Comment on above: Performed By: #### M G, ANEU, CBC, VIDH, ADIFF, FERR, FT4 #### [address] [address] #### B12 #### [place] [address] TSHon 06-07-2024 TSH Qn 2.54 m[IU]/L Normal 0.36-3.74 [facility] Comment on above: Performed By: #### L IPID, GFR, CMP, A1C, TSH #### [address] [address] VIDHon 06-07-2024 Vit. D 25-Hydroxy 52.9 ng/mL Normal [facility] Comment on above: Result Comment: Inte rpretive Values Based on Total 25(OH) Vitamin D: Deficient <20 ng/mL Insufficient 20 - <30 ng/mL Sufficient 30-100 ng/mL Performed By: #### L IPID, GFR, CMP, A1C, TSH #### [address] [address] .Auto Diffon 03-01-2024 Basophil, Absolute 0.1 10 3/mcL Normal 0.0-0.2 [facility] ([place]) Comment on above: Performed By: #### L IPID, CMP, GFR, TSH, A1C #### [address] [address] Basophils/100 WBC (Bld) 0.8 % Normal 0.0-2.5 [facility] ([place]) Comment on above: Performed By: #### L IPID, CMP, GFR, TSH, A1C #### [address] [address] Eosinophil, Absolute 0.3 10 3/mcL Normal 0.0-0.4 [facility] ([place]) Comment on above: Performed By: #### L IPID, CMP, GFR, TSH, A1C #### [address] [address] Eosinophils/100 WBC (Bld) 3.7 % Normal 0.0-7.0 [facility] ([place]) Comment on above: Performed By: #### L IPID, CMP, GFR, TSH, A1C #### [address] [address] Lymphocyte, Absolute 1.5 10 3/mcL Normal 0.8-3.9 [facility] ([place]) Comment on above: Performed By: #### L IPID, CMP, GFR, TSH, A1C #### [address] [address] Lymphocytes/100 WBC (Bld) 18.5 % Normal 10.0-50.0 [facility] ([place]) Comment on above: Performed By: #### L IPID, CMP, GFR, TSH, A1C #### [address] [address] Monocyte, Absolute 0.7 10 3/mcL Normal 0.2-1.0 [facility] ([place]) Comment on above: Performed By: #### L IPID, CMP, GFR, TSH, A1C #### [address] [address] Monocytes/100 WBC (Bld) 8.1 % Normal 1.7-13.0 [facility] ([place]) Comment on above: Performed By: #### L IPID, CMP, GFR, TSH, A1C #### [address] [address] Neutrophils/100 WBC (Bld) 68.9 % Normal 37.0-80.0 [facility] ([place]) Comment on above: Performed By: #### L IPID, CMP, GFR, TSH, A1C #### [address] [address] .GFRon 03-01-2024 GFR Non- 28 ml/min/1.73sqm Normal [facility] ([place]) Comment on above: Result Comment: GFR Population mean for , Non- Americans Ages 20-29 = 116 mL/min/1.73 sq.m. Ages 30-39 = 107 mL/min/1.73 sq.m. Ages 40-49 = 99 mL/min/1.73 sq.m. Ages 50-59 = 93 mL/min/1.73 sq.m. Ages 60-69 = 85 mL/min/1.73 sq.m. Ages 70+ = 75 mL/min/1.73 sq.m. Chronic Kidney Disease: Less than 60 mL/min/1.73 square meters End Stage Renal Disease: Less than 15 mL/min/1.73 square meters Performed By: #### L IPID, CMP, GFR, TSH, A1C #### [address] [address] GFR 34 ml/min/1.73sqm Normal [facility] ([place]) Comment on above: Result Comment: GFR Population mean for , Non- Americans Ages 20-29 = 116 mL/min/1.73 sq.m. Ages 30-39 = 107 mL/min/1.73 sq.m. Ages 40-49 = 99 mL/min/1.73 sq.m. Ages 50-59 = 93 mL/min/1.73 sq.m. Ages 60-69 = 85 mL/min/1.73 sq.m. Ages 70+ = 75 mL/min/1.73 sq.m. Chronic Kidney Disease: Less than 60 mL/min/1.73 square meters End Stage Renal Disease: Less than 15 mL/min/1.73 square meters Performed By: #### L IPID, CMP, GFR, TSH, A1C #### [address] [address] .NEUABSon 03-01-2024 Neutrophil, Absolute 5.7 10 3/mcL Normal 2.9-6.2 [facility] ([place]) Comment on above: Performed By: #### L IPID, CMP, GFR, TSH, A1C #### [place] [id number] B12on 03-01-2024 Cobalamin (Vitamin B12) [Mass/Vol] 1431 pg/mL High 211-911 [facility] ([place]) Comment on above: Performed By: #### L IPID, CMP, GFR, TSH, A1C #### [place] [address] CBCon 03-01-2024 Erythrocyte distribution width (RBC) [Ratio] 15.4 % High 11.5-14.5 [facility] ([place]) Comment on above: Performed By: #### L IPID, CMP, GFR, TSH, A1C #### [address] [address] Hematocrit (Bld) [Volume fraction] 38.1 % Normal 37.0-47.0 [facility] ([place]) Comment on above: Performed By: #### L IPID, CMP, GFR, TSH, A1C #### [place] [address] Hgb 12.9 G/dL Normal 12.0-16.0 [facility] ([place]) Comment on above: Performed By: #### L IPID, CMP, GFR, TSH, A1C #### [address] [address] MCH (RBC) [Entitic mass] 32.9 pg High 27.0-31.2 [facility] ([place]) Comment on above: Performed By: #### L IPID, CMP, GFR, TSH, A1C #### [place] [address] MCHC 34.0 G/dL Normal 33.0-37.0 [facility] ([place]) Comment on above: Performed By: #### L IPID, CMP, GFR, TSH, A1C #### [address] [address] MCV (RBC) [Entitic vol] 97.0 fL High 80.0-94.0 [facility] ([place]) Comment on above: Performed By: #### L IPID, CMP, GFR, TSH, A1C #### [address] [address] Platelet 231 10 3/mcL Normal 130-400 [facility] ([place]) Comment on above: Performed By: #### L IPID, CMP, GFR, TSH, A1C #### [address] [address] Platelet mean volume (Bld) [Entitic vol] 7.9 fL Normal 7.4-10.4 [facility] ([place] Comment on above: Performed By: #### L IPID, CMP, GFR, TSH, A1C #### [address] [address] RBC 3.93 10 6/mcL Low 4.20-5.40 [facility] ([place]) Comment on above: Performed By: #### L IPID, CMP, GFR, TSH, A1C #### [address] [address] WBC 8.3 10 3/mcL Normal 4.6-10.8 [facility] ([place]) Comment on above: Performed By: #### L IPID, CMP, GFR, TSH, A1C #### [address] [address] CMPon 03-01-2024 Albumin Level 3.9 G/dL Normal 3.4-4.8 [facility] ([place] Comment on above: Performed By: #### L IPID, CMP, GFR, TSH, A1C #### [address] [address] Albumin/Globulin [Mass ratio] 1.1 {ratio} Normal 1.1-2.5 [facility] ([place]) Comment on above: Performed By: #### L IPID, CMP, GFR, TSH, A1C #### [address] [address] ALP [Catalytic activity/Vol] 105 U/L Normal 40-135 [facility] ([place]) Comment on above: Performed By: #### L IPID, CMP, GFR, TSH, A1C #### [address] [address] ALT [Catalytic activity/Vol] 34 U/L Normal 14-59 [facility] ([place] Comment on above: Performed By: #### L IPID, CMP, GFR, TSH, A1C #### [address] [address] AST [Catalytic activity/Vol] 25 U/L Normal 10-40 [facility] ([place] Comment on above: Performed By: #### L IPID, CMP, GFR, TSH, A1C #### [address] [address] Bili Total 0.8 mg/dL Normal 0.2-1.0 [facility] ([place]) Comment on above: Result Comment: Use of this assay is not recommended for patients undergoing treatment with eltrombopag due to the potential for falsely elevated results. Performed By: #### L IPID, CMP, GFR, TSH, A1C #### [address] [address] BUN/Creatinine Ratio 7 ratio Normal 7-27 [facility] ([place]) Comment on above: Performed By: #### L IPID, CMP, GFR, TSH, A1C #### [address] [address] Calcium [Mass/Vol] 9.6 mg/dL Normal 8.4-10.2 [facility] ([place]) Comment on above: Performed By: #### L IPID, CMP, GFR, TSH, A1C #### [address] [address] Chloride [Moles/Vol] 96 mmol/L Low 98-107 [facility] ([place]) Comment on above: Performed By: #### L IPID, CMP, GFR, TSH, A1C #### [address] [address] CO2 [Moles/Vol] 33 mmol/L High 23-31 [facility] ([place] Comment on above: Performed By: #### L IPID, CMP, GFR, TSH, A1C #### [place] [id number] Creatinine [Mass/Vol] 1.79 mg/dL High 0.55-1.02 [facility] ([place]) Comment on above: Performed By: #### L IPID, CMP, GFR, TSH, A1C #### [place] [address] Electrolyte Balance 10.0 mEq/L Normal 4.0-15.0 [facility] ([place]) Comment on above: Performed By: #### L IPID, CMP, GFR, TSH, A1C #### [place] [address] Globulin 3.6 G/dL Normal [facility] ([place]) Comment on above: Performed By: #### L IPID, CMP, GFR, TSH, A1C #### [place] [address] Glucose [Mass/Vol] 94 mg/dL Normal 83-110 [facility] ([place]) Comment on above: Performed By: #### L IPID, CMP, GFR, TSH, A1C #### [place] [address] Potassium [Moles/Vol] 3.3 mmol/L Low 3.5-5.1 [facility] ([place]) Comment on above: Performed By: #### L IPID, CMP, GFR, TSH, A1C #### [place] [address] Sodium [Moles/Vol] 139 mmol/L Normal 136-145 [facility] ([place]) Comment on above: Performed By: #### L IPID, CMP, GFR, TSH, A1C #### [address] [address] Total Protein 7.5 G/dL Normal 6.4-8.2 [facility] ([place]) Comment on above: Performed By: #### L IPID, CMP, GFR, TSH, A1C #### [address] [address] Urea nitrogen [Mass/Vol] 12 mg/dL Normal 7-18 [facility] ([place]) Comment on above: Performed By: #### L IPID, CMP, GFR, TSH, A1C #### [address] [address] [place] 03-01-2024 Ferritin [Mass/Vol] 2535.0 ng/mL High 8.0-252.0 [facility] ([place]) Comment on above: Performed By: #### L IPID, CMP, GFR, TSH, A1C #### [address] [address] FT3on 03-01-2024 Free T3 [Mass/Vol] 2.32 pg/mL Normal 2.30-4.00 [facility] ([place]) Comment on above: Performed By: #### L IPID, CMP, GFR, TSH, A1C #### [address] [address] FT4on 03-01-2024 Free T4 [Mass/Vol] 1.71 ng/dL High 0.76-1.46 [facility] ([place]) Comment on above: Performed By: #### L IPID, CMP, GFR, TSH, A1C #### [address] [address] LABORATORYOrdered By: SYSTEM SYSTEM on 03-01-2024 25-hydroxyvitamin D3 [Mass/Vol] 51.1 ng/mL Invalid Interpretation Code AO ADM SS Comment on above: Interpretive Data: I nterpretive Values Based on Total 25(OH) Vitamin D: Deficient <20 ng/mL Insufficient 20 - <30 ng/mL Sufficient 30-100 ng/mL Albumin BCP dye [Mass/Vol] 3.9 G/dL Normal 3.4 - 4.8 G/dL AO ADM SS Albumin/Globulin [Mass ratio] 1.1 {ratio} Normal 1.1 - 2.5 ratio AO ADM SS ALP [Catalytic activity/Vol] 105 U/L Normal 40 - 135 U/L AO ADM SS ALT With P-5'-P [Catalytic activity/Vol] 34 U/L Normal 14 - 59 U/L AO ADM SS AST With P-5'-P [Catalytic activity/Vol] 25 U/L Normal 10 - 40 U/L AO ADM SS Basophil, Absolute 0.1 103/mcL Normal 0.0 - 0.2 10^3/mcL AO Workflow SS Basophils/100 WBC (Bld) 0.8 % Normal 0.0 - 2.5 % AO Workflow SS Bilirubin [Mass/Vol] 0.8 mg/dL Normal 0.2 - 1 .0 mg/dL AO ADM SS Comment on above: Interpretive Data: U se of this assay is not recommended for patients undergoing treatment with eltrombopag due to the potential for falsely elevated results. Calcium [Mass/Vol] 9.6 mg/dL Normal 8.4 - 10. 2 mg/dL AO ADM SS Chloride [Moles/Vol] 96 mmol/L Low 98 - 10 7 mmol/L AO ADM SS CO2 [Moles/Vol] 33 mmol/L High 23 - 31 mmol/L AO ADM SS Cobalamin (Vitamin B12) [Mass/Vol] 1431 pg/mL High 211 - 911 pg/mL AH ADM SS Creatinine [Mass/Vol] 1.79 mg/dL High 0.55 - 1.02 mg/dL AO ADM SS Electrolyte Balance 10.0 mEq/L Normal 4.0 - 15 .0 mEq/L AO ADM SS Eosinophil, Absolute 0.3 103/mcL Normal 0.0 - 0 .4 10^3/mcL AO Workflow SS Eosinophils/100 WBC (Bld) 3.7 % Normal 0.0 - 7.0 % AO Workflow SS Erythrocyte distribution width (RBC) [Ratio] 15.4 % High 11.5 - 14.5 % AO Workflow SS Ferritin [Mass/Vol] 2535.0 ng/mL High 8.0 - 25 2.0 ng/mL AO ADM SS Free T3 [Mass/Vol] 2.32 pg/mL Normal 2.30 - 4. 00 pg/mL AO ADM SS Free T4 [Mass/Vol] 1.71 ng/dL High 0.76 - 1. 46 ng/dL AO ADM SS GFR/1.73 sq M.predicted among blacks MDRD (S/P/Bld) [Vol rate/Area] 34 ml/min/1.73sqm Invalid Interpretation Code AO Chemistry S Comment on above: Interpretive Data: GFR Population mean for , Non- Americans Ages 20-29 = 116 mL/min/1.73 sq.m. Ages 30-39 = 107 mL/min/1.73 sq.m. Ages 40-49 = 99 mL/min/1.73 sq.m. Ages 50-59 = 93 mL/min/1.73 sq.m. Ages 60-69 = 85 mL/min/1.73 sq.m. Ages 70+ = 75 mL/min/1.73 sq.m. Chronic Kidney Disease: Less than 60 mL/min/1.73 square meters End Stage Renal Disease: Less than 15 mL/min/1.73 square meters GFR/1.73 sq M.predicted among non-blacks MDRD (S/P/Bld) [Vol rate/Area] 28 ml/min/1.73sqm Invalid Interpretation Code AO Chemistry S Comment on above: Interpretive Data: GFR Population mean for , Non- Americans Ages 20-29 = 116 mL/min/1.73 sq.m. Ages 30-39 = 107 mL/min/1.73 sq.m. Ages 40-49 = 99 mL/min/1.73 sq.m. Ages 50-59 = 93 mL/min/1.73 sq.m. Ages 60-69 = 85 mL/min/1.73 sq.m. Ages 70+ = 75 mL/min/1.73 sq.m. Chronic Kidney Disease: Less than 60 mL/min/1.73 square meters End Stage Renal Disease: Less than 15 mL/min/1.73 square meters Globulin 3.6 G/dL Invalid Interpretation Code AO ADM SS Glucose [Mass/Vol] 94 mg/dL Normal 83 - 110 mg/dL AO ADM SS Hematocrit (Bld) [Volume fraction] 38.1 % Normal 37.0 - 47.0 % AO Workflow SS Hemoglobin (Bld) [Mass/Vol] 12.9 G/dL Normal 12.0 - 16.0 G/dL AO Workflow SS Lymphocyte, Absolute 1.5 103/mcL Normal 0.8 - 3 .9 10^3/mcL AO Workflow SS Lymphocytes/100 WBC (Bld) 18.5 % Normal 10.0 - 50.0 % AO Workflow SS Magnesium [Mass/Vol] 1.9 mg/dL Normal 1.8 - 2 .4 mg/dL AO ADM SS MCH (RBC) [Entitic mass] 32.9 pg High 27.0 - 31.2 pg AO Workflow SS MCHC 34.0 G/dL Normal 33.0 - 37.0 G/dL AO Workflow SS MCV (RBC) [Entitic vol] 97.0 fL High 80.0 - 94.0 fL AO Workflow SS Monocyte, Absolute 0.7 103/mcL Normal 0.2 - 1.0 10^3/mcL AO Workflow SS Monocytes/100 WBC (Bld) 8.1 % Normal 1.7 - 13.0 % AO Workflow SS Neutrophil, Absolute 5.7 103/mcL Normal 2.9 - 6 .2 10^3/mcL AO Workflow SS Neutrophils/100 WBC (Bld) 68.9 % Normal 37.0 - 80.0 % AO Workflow SS Platelet mean volume (Bld) [Entitic vol] 7.9 fL Normal 7.4 - 10.4 fL AO Workflow SS Platelets (Bld) [#/Vol] 231 103/mcL Normal 130 - 400 10^3/mcL AO Workflow SS Potassium [Moles/Vol] 3.3 mmol/L Low 3.5 - 5.1 mmol/L AO ADM SS Protein [Mass/Vol] 7.5 G/dL Normal 6.4 - 8.2 G/dL AO ADM SS RBC (Bld) [#/Vol] 3.93 106/mcL Low 4.20 - 5.4 0 10^6/mcL AO Workflow SS Sodium [Moles/Vol] 139 mmol/L Normal 136 - 145 mmol/L AO ADM SS TSH Qn 0.26 m[IU]/L Low 0.36 - 3.74 mcIU/mL AO ADM SS Urea nitrogen [Mass/Vol] 12 mg/dL Normal 7 - 18 mg/dL AO ADM SS Urea nitrogen/Creatinine [Mass ratio] 7 ratio Normal 7 - 27 ratio AO ADM SS WBC (Bld) [#/Vol] 8.3 103/mcL Normal 4.6 - 10.8 10^3/mcL AO Workflow SS LABORATORYOrdered By: Yary Sotelo on 03-01-2024 Cholesterol [Mass/Vol] 149 mg/dL Normal 0 - 200 mg/dL AO ADM SS Comment on above: Interpretive Data: C holesterol Reference Interval: Less than 200 Desirable 200-239 Borderline high risk 240 and above High risk Cholesterol in HDL [Mass/Vol] 80 mg/dL High 40 - 60 mg/dL AO ADM SS Cholesterol in LDL [Mass/Vol] 47 mg/dL Normal 0 - 130 mg/dL AO ADM SS Triglyceride [Mass/Vol] 109 mg/dL Normal 0 - 150 mg/dL AO ADM SS Comment on above: Interpretive Data: T riglyceride Reference Interval: Less than 150 Normal 150-199 Borderline high risk 200-499 High risk 500 or higher Very high risk LIPIDon 03-01-2024 Cholesterol [Mass/Vol] 149 mg/dL Normal 0-200 [facility] ([place]) Comment on above: Result Comment: Chol esterol Reference Interval: Less than 200 Desirable 200-239 Borderline high risk 240 and above High risk Performed By: #### L IPID, CMP, GFR, TSH, A1C #### [address] [address] Cholesterol in HDL [Mass/Vol] 80 mg/dL High 40-60 [facility] ([place]) Comment on above: Performed By: #### L IPID, CMP, GFR, TSH, A1C #### [address] [address] Cholesterol in LDL [Mass/Vol] 47 mg/dL Normal 0-130 [facility] ([place]) Comment on above: Performed By: #### L IPID, CMP, GFR, TSH, A1C #### [address] [address] Triglyceride [Mass/Vol] 109 mg/dL Normal 0-150 [facility] ([place]) Comment on above: Result Comment: Trig lyceride Reference Interval: Less than 150 Normal 150-199 Borderline high risk 200-499 High risk 500 or higher Very high risk Performed By: #### L IPID, CMP, GFR, TSH, A1C #### [address] [address] MGon 03-01-2024 Magnesium [Mass/Vol] 1.9 mg/dL Normal 1.8-2.4 [facility] ([place]) Comment on above: Performed By: #### L IPID, CMP, GFR, TSH, A1C #### [address] [address] TSHon 03-01-2024 TSH Qn 0.26 m[IU]/L Low 0.36-3.74 [facility] ([place]) Comment on above: Performed By: #### L IPID, CMP, GFR, TSH, A1C #### [address] [address] VIDHon 03-01-2024 Vit. D 25-Hydroxy 51.1 ng/mL Normal [facility] ([place]) Comment on above: Result Comment: Inte rpretive Values Based on Total 25(OH) Vitamin D: Deficient <20 ng/mL Insufficient 20 - <30 ng/mL Sufficient 30-100 ng/mL Performed By: #### L IPID, CMP, GFR, TSH, A1C #### [address] [address] Chest PA and Lateralon 02-10 Chest PA and Lateral [facility] Imaging Services [address] [place] [id number] Chest PA and Lateral MR#: [id number] Acct: [id number] Name: MARCOS SHELTON Rep #: [id number] : [id number] F [id number] From: Saqib Bhardwaj MD PCP: Dr. Bell Maher MD Status: DEP [facility] Study: Chest PA and Lateral Date of Exam: 02/11/24 Exam# [id number] Ordering Dr: Brien Sarabia DO [id number] STUDY: X-RAY CHEST REASON FOR EXAM: Female, 73 years old. Preoperative evaluation. TECHNIQUE: Frontal and lateral views of the chest. COMPARISON: October 27, 2021 FINDINGS: Stable mild hyperinflation. There is no demonstrated pleural abnormality. Borderline cardiomegaly unchanged. Normal mediastinum and wendy. Normal visualized pulmonary arteries. Stable aortic tortuosity. Thoracic osteopenia with mild diffuse thoracic spondylosis. Right total shoulder arthroplasty unchanged. No abnormality of the visualized soft tissue structures of the upper abdomen. RAD/Chest PA and Lateral IMPRESSION: Stable chest with no acute or active cardiopulmonary disease. Electronically Signed: Saqib Bhardwaj MD at 14:47 EDT , CC: Dr. Brien Sarabia DO; Dr. Bell Maher MD Presentation Team Member: Signed Normal [facility] MRSA Spec Ql Culton 02-02-20 24 MRSA isol Org specific cx Ql (Unsp spec) ORGANISM ID: 1 Positive for Methicillin-RESISTANT Staphylococcus aureus (MRSA) Normal [facility] Comment on above: Performed By: #### 1 [id number] #### [facility] CLIA [id number] [address] [place] [address] [place] .GFRon 11-29-2023 GFR 35 ml/min/1.73sqm Normal [facility] ([place]) Comment on above: Result Comment: GFR Population mean for , Non- Americans Ages 20-29 = 116 mL/min/1.73 sq.m. Ages 30-39 = 107 mL/min/1.73 sq.m. Ages 40-49 = 99 mL/min/1.73 sq.m. Ages 50-59 = 93 mL/min/1.73 sq.m. Ages 60-69 = 85 mL/min/1.73 sq.m. Ages 70+ = 75 mL/min/1.73 sq.m. Chronic Kidney Disease: Less than 60 mL/min/1.73 square meters End Stage Renal Disease: Less than 15 mL/min/1.73 square meters Performed By: #### L IPID, CMP, GFR, TSH, A1C #### [address] [address] GFR Non- 29 ml/min/1.73sqm Normal [facility] ([place]) Comment on above: Result Comment: GFR Population mean for , Non- Americans Ages 20-29 = 116 mL/min/1.73 sq.m. Ages 30-39 = 107 mL/min/1.73 sq.m. Ages 40-49 = 99 mL/min/1.73 sq.m. Ages 50-59 = 93 mL/min/1.73 sq.m. Ages 60-69 = 85 mL/min/1.73 sq.m. Ages 70+ = 75 mL/min/1.73 sq.m. Chronic Kidney Disease: Less than 60 mL/min/1.73 square meters End Stage Renal Disease: Less than 15 mL/min/1.73 square meters Performed By: #### L IPID, CMP, GFR, TSH, A1C #### [address] [address] CMPon 11-29-2023 Albumin Level 3.8 G/dL Normal 3.4-4.8 [facility] ([place]) Comment on above: Performed By: #### L IPID, CMP, GFR, TSH, A1C #### [address] [address] Albumin/Globulin [Mass ratio] 1.1 {ratio} Normal 1.1-2.5 [facility] ([place]) Comment on above: Performed By: #### L IPID, CMP, GFR, TSH, A1C #### [address] [address] ALP [Catalytic activity/Vol] 149 U/L High 40-135 [facility] ([place]) Comment on above: Performed By: #### L IPID, CMP, GFR, TSH, A1C #### [address] [address] ALT [Catalytic activity/Vol] 35 U/L Normal 14-59 [facility] ([place]) Comment on above: Performed By: #### L IPID, CMP, GFR, TSH, A1C #### [address] [address] AST [Catalytic activity/Vol] 29 U/L Normal 10-40 [facility] ([place]) Comment on above: Performed By: #### L IPID, CMP, GFR, TSH, A1C #### [address] [address] Bili Total 0.7 mg/dL Normal 0.2-1.0 [facility] ([place]) Comment on above: Result Comment: Use of this assay is not recommended for patients undergoing treatment with eltrombopag due to the potential for falsely elevated results. Performed By: #### L IPID, CMP, GFR, TSH, A1C #### [address] [address] BUN/Creatinine Ratio 13 ratio Normal 7-27 [facility] ([place]) Comment on above: Performed By: #### L IPID, CMP, GFR, TSH, A1C #### [address] [address] Calcium [Mass/Vol] 9.0 mg/dL Normal 8.4-10.2 [facility] ([place]) Comment on above: Performed By: #### L IPID, CMP, GFR, TSH, A1C #### [address] [address] Chloride [Moles/Vol] 99 mmol/L Normal 98-107 [facility] ([place]) Comment on above: Performed By: #### L IPID, CMP, GFR, TSH, A1C #### [address] [address] CO2 [Moles/Vol] 30 mmol/L Normal 23-31 [facility] ([place]) Comment on above: Performed By: #### L IPID, CMP, GFR, TSH, A1C #### [address] [address] Creatinine [Mass/Vol] 1.73 mg/dL High 0.55-1.02 [facility] ([place]) Comment on above: Performed By: #### L IPID, CMP, GFR, TSH, A1C #### [address] [address] Electrolyte Balance 10.0 mEq/L Normal 4.0-15.0 [facility] ([place]) Comment on above: Performed By: #### L IPID, CMP, GFR, TSH, A1C #### [address] [address] Globulin 3.6 G/dL Normal [facility] ([place]) Comment on above: Performed By: #### L IPID, CMP, GFR, TSH, A1C #### [address] [address] Glucose [Mass/Vol] 80 mg/dL Low 83-110 [facility] ([place]) Comment on above: Performed By: #### L IPID, CMP, GFR, TSH, A1C #### [address] [address] Potassium [Moles/Vol] 4.0 mmol/L Normal 3.5-5.1 [facility] ([place]) Comment on above: Performed By: #### L IPID, CMP, GFR, TSH, A1C #### [address] [address] Sodium [Moles/Vol] 139 mmol/L Normal 136-145 [facility] ([place]) Comment on above: Performed By: #### L IPID, CMP, GFR, TSH, A1C #### [address] [address] Total Protein 7.4 G/dL Normal 6.4-8.2 [facility] ([place]) Comment on above: Performed By: #### L IPID, CMP, GFR, TSH, A1C #### [address] [address] Urea nitrogen [Mass/Vol] 22 mg/dL High 7-18 [facility] ([place]) Comment on above: Performed By: #### L IPID, CMP, GFR, TSH, A1C #### [address] [address] LABORATORYOrdered By: SYSTEM SYSTEM on 11-29-2023 Albumin BCP dye [Mass/Vol] 3.8 G/dL Normal 3.4 - 4.8 G/dL AO ADM SS Albumin/Globulin [Mass ratio] 1.1 {ratio} Normal 1.1 - 2.5 ratio AO ADM SS ALP [Catalytic activity/Vol] 149 U/L High 40 - 135 U/L AO ADM SS ALT With P-5'-P [Catalytic activity/Vol] 35 U/L Normal 14 - 59 U/L AO ADM SS AST With P-5'-P [Catalytic activity/Vol] 29 U/L Normal 10 - 40 U/L AO ADM SS Bilirubin [Mass/Vol] 0.7 mg/dL Normal 0.2 - 1 .0 mg/dL AO ADM SS Comment on above: Interpretive Data: U se of this assay is not recommended for patients undergoing treatment with eltrombopag due to the potential for falsely elevated results. Calcium [Mass/Vol] 9.0 mg/dL Normal 8.4 - 10. 2 mg/dL AO ADM SS Chloride [Moles/Vol] 99 mmol/L Normal 98 - 10 7 mmol/L AO ADM SS CO2 [Moles/Vol] 30 mmol/L Normal 23 - 31 mmol/L AO ADM SS Creatinine [Mass/Vol] 1.73 mg/dL High 0.55 - 1.02 mg/dL AO ADM SS Electrolyte Balance 10.0 mEq/L Normal 4.0 - 15 .0 mEq/L AO ADM SS GFR/1.73 sq M.predicted among blacks MDRD (S/P/Bld) [Vol rate/Area] 35 ml/min/1.73sqm Invalid Interpretation Code AO Chemistry S Comment on above: Interpretive Data: GFR Population mean for , Non- Americans Ages 20-29 = 116 mL/min/1.73 sq.m. Ages 30-39 = 107 mL/min/1.73 sq.m. Ages 40-49 = 99 mL/min/1.73 sq.m. Ages 50-59 = 93 mL/min/1.73 sq.m. Ages 60-69 = 85 mL/min/1.73 sq.m. Ages 70+ = 75 mL/min/1.73 sq.m. Chronic Kidney Disease: Less than 60 mL/min/1.73 square meters End Stage Renal Disease: Less than 15 mL/min/1.73 square meters GFR/1.73 sq M.predicted among non-blacks MDRD (S/P/Bld) [Vol rate/Area] 29 ml/min/1.73sqm Invalid Interpretation Code AO Chemistry S Comment on above: Interpretive Data: GFR Population mean for , Non- Americans Ages 20-29 = 116 mL/min/1.73 sq.m. Ages 30-39 = 107 mL/min/1.73 sq.m. Ages 40-49 = 99 mL/min/1.73 sq.m. Ages 50-59 = 93 mL/min/1.73 sq.m. Ages 60-69 = 85 mL/min/1.73 sq.m. Ages 70+ = 75 mL/min/1.73 sq.m. Chronic Kidney Disease: Less than 60 mL/min/1.73 square meters End Stage Renal Disease: Less than 15 mL/min/1.73 square meters Globulin 3.6 G/dL Invalid Interpretation Code AO ADM SS Glucose [Mass/Vol] 80 mg/dL Low 83 - 110 mg/dL AO ADM SS Potassium [Moles/Vol] 4.0 mmol/L Normal 3.5 - 5.1 mmol/L AO ADM SS Protein [Mass/Vol] 7.4 G/dL Normal 6.4 - 8.2 G/dL AO ADM SS Sodium [Moles/Vol] 139 mmol/L Normal 136 - 145 mmol/L AO ADM SS TSH Qn 2.17 m[IU]/L Normal 0.36 - 3.74 mcIU/mL AO ADM SS Urea nitrogen [Mass/Vol] 22 mg/dL High 7 - 18 mg/dL AO ADM SS Urea nitrogen/Creatinine [Mass ratio] 13 ratio Normal 7 - 27 ratio AO ADM SS LABORATORYOrdered By: Daniel Sarabia on 11-29-2023 Cholesterol [Mass/Vol] 298 mg/dL High 0 - 200 mg/dL AO ADM SS Comment on above: Interpretive Data: C holesterol Reference Interval: Less than 200 Desirable 200-239 Borderline high risk 240 and above High risk Cholesterol in HDL [Mass/Vol] 71 mg/dL High 40 - 60 mg/dL AO ADM SS Cholesterol in LDL [Mass/Vol] 202 mg/dL High 0 - 130 mg/dL AO ADM SS Triglyceride [Mass/Vol] 125 mg/dL Normal 0 - 150 mg/dL AO ADM SS Comment on above: Interpretive Data: T riglyceride Reference Interval: Less than 150 Normal 150-199 Borderline high risk 200-499 High risk 500 or higher Very high risk LIPIDon 11-29-2023 Cholesterol [Mass/Vol] 298 mg/dL High 0-200 [facility] ([place]) Comment on above: Result Comment: Chol esterol Reference Interval: Less than 200 Desirable 200-239 Borderline high risk 240 and above High risk Performed By: #### L IPID, CMP, GFR, TSH, A1C #### [address] [address] Cholesterol in HDL [Mass/Vol] 71 mg/dL High 40-60 [facility] ([place]) Comment on above: Performed By: #### L IPID, CMP, GFR, TSH, A1C #### [address] [address] Cholesterol in LDL [Mass/Vol] 202 mg/dL High 0-130 [facility] ([place]) Comment on above: Performed By: #### L IPID, CMP, GFR, TSH, A1C #### [address] [address] Triglyceride [Mass/Vol] 125 mg/dL Normal 0-150 [facility] ([place]) Comment on above: Result Comment: Trig lyceride Reference Interval: Less than 150 Normal 150-199 Borderline high risk 200-499 High risk 500 or higher Very high risk Performed By: #### L IPID, CMP, GFR, TSH, A1C #### [address] [address] TSHon 11-29-2023 TSH Qn 2.17 m[IU]/L Normal 0.36-3.74 [facility] ([place]) Comment on above: Performed By: #### L IPID, CMP, GFR, TSH, A1C #### [address] [address] Laboratory - Drug toxicology Ordered By: Ad Abernathy on 11-02-2023 Amphetamines Ql (U) Negative <1000 ng/mL [facility] Benzodiazepines Ql (U) Positive < 200 ng/mL [facility] Cannabinoids Screen Ql (U) Negative < 50 ng/mL [facility] Cocaine Ql (U) Negative < 300 ng/mL [facility] Opiates Ql (U) Negative < 300 ng/mL [facility] No Panel InformationOrdered By: Ad Abernathy on 11-02-2023 MDMA (Ecstasy) Screen Negative < 500 ng/mL [facility] Miscellaneous Test See comment [facility] Comment on above: [id number] 6+OXYCODONE-B UND (ng/mL) DRUG RESULT SCREEN CUTOFF____ Amphetamines,Urine Negative ng/mL 1000 Amphetamine test includes Amphetamine and Methamphetamine.Barbiturates Negative ng/mL 200Benzodiazepines POSITIVE ng/mL 100Please Note;Confirmation performed by Mass SpectrometryNordiazepam Negative 100 Oxazepam PositiveOxazepam Conf,MS,UR 2045 ng/mL 100Flurazepam Negative 100 Lorazepam Negative 100 Alprazolam Negative 100 Clonazepam Negative 100 Temazepam PositiveTemazepam Conf,MS,UR >51599 ng/mL 100Triazolam Negative 100 Midazolam Negative 100 Cannabinoid Negative ng/mL 20Cocaine (Metab) Negative ng/mL 300Opiates Negative ng/mL 300 Opiates test includes Codeine, Morphine, Hydromorphone, Hydrocodone. Oxycodone/Oxymorphone,Urine Negative ng/mL 300 Test includes Oxydodone and Oxymorphone. TESTING PERFORMED AT [facility]. ORIGINAL REPORT ON FILE IN LAB CONTAINS ADDITIONAL TEST SITE INFORMATION. Urine Barbiturates Screen Negative < 200 ng/mL [facility] Urine Drug Screen Comment [facility] Comment on above: CONFIRMATORY TESTING FOR ALL POSITIVE URINE DRUG SCREENRESULTS WILL ONLY BE SENT OUT UPON PHYSICIAN ORDER. VISTA Urine Drug Screen methods provide only preliminaryanalytical test results. A more specific alternate chemicalmethod must be used in order to obtain a confirmedanalytical result. Gas chromatography/mass spectrometery(GC/MS) is the preferred confirmatory method. Clinicalconsideration and professional judgement should be appliedto any drug of abuse test result, particularly whenpreliminary positive results are used. URINE TCA TESTING MUST BE ORDERED SEPARATELY. USE TESTMNEMONIC: [facility] Urine Methadone Screen Negative < 300 ng/mL [facility] Urine phencyclidine (PCP) de tectionOrdered By: Ad Abernathy on 11-02-2023 Phencyclidine Ql (U) Negative < 25 ng/mL [facility] XR SPINE THORACIC 2 VIEWSon 10-16-2023 XR SPINE THORACIC 2 VIEWS ORIGINAL EXAMINATION: 3 XRAY VIEWS OF THE THORACIC SPINE 10/15/2023 11:31 am COMPARISON: Chest x-ray on 04/20/2022 HISTORY: ORDERING SYSTEM PROVIDED HISTORY: Reason for Exam: ongoing thoracic back pain FINDINGS: Thoracic spine alignment is normal. Thoracic vertebral bodies are normal in shape with no fracture. The intervertebral disc spaces in the thoracic spine demonstrate early mild narrowing. There is minimal endplate degenerative spur formation. Visible portions of posterior elements and ribs are unremarkable. Anterior cervical disc fusion has been performed at the C5-C6 level and is partly seen on this exam. There is a spacer is in the L2-L3 disc space that is also partly seen. Alignment at these levels appear normal. IMPRESSION: Mild thoracic spondylosis. No fracture or subluxation. Interpreted by: Andrei Suggs MD Preliminary Report By: Andrei Suggs MD Electronically signed By Andrei Suggs MD Dictated Date: 10/16/2023 6:31:48 PM Prelim Date: 10/16/2023 6:33:55 PM Sign Date: 10/16/2023 6:33:55 PM Ordering Provider: OLIVER Brito [facility] ([place]) .Auto Diffon 08-26-2023 Basophil, Absolute 0.1 10 3/mcL Normal 0.0-0.2 [facility] ([place]) Comment on above: Performed By: #### C BC, CMP, LIPID, ANEU, TSH, ADIFF, GFR, VIDH, FT4, FT3 #### [address] [address] #### B12 #### [address] [address] Basophils/100 WBC (Bld) 0.7 % Normal 0.0-2.5 [facility] ([place]) Comment on above: Performed By: #### C BC, CMP, LIPID, ANEU, TSH, ADIFF, GFR, VIDH, FT4, FT3 #### [place] [address] #### B12 #### [address] [address] Eosinophil, Absolute 0.2 10 3/mcL Normal 0.0-0.4 [facility] ([place]) Comment on above: Performed By: #### C BC, CMP, LIPID, ANEU, TSH, ADIFF, GFR, VIDH, FT4, FT3 #### [place] [address] #### B12 #### [address] [address] Eosinophils/100 WBC (Bld) 2.1 % Normal 0.0-7.0 [facility] ([place]) Comment on above: Performed By: #### C BC, CMP, LIPID, ANEU, TSH, ADIFF, GFR, VIDH, FT4, FT3 #### [place] [address] #### B12 #### [address] [address] Lymphocyte, Absolute 2.2 10 3/mcL Normal 0.8-3.9 [facility] ([place]) Comment on above: Performed By: #### C BC, CMP, LIPID, ANEU, TSH, ADIFF, GFR, VIDH, FT4, FT3 #### [place] [address] #### B12 #### [address] [address] Lymphocytes/100 WBC (Bld) 29.8 % Normal 10.0-50.0 [facility] ([place]) Comment on above: Performed By: #### C BC, CMP, LIPID, ANEU, TSH, ADIFF, GFR, VIDH, FT4, FT3 #### [address] [address] #### B12 #### [address] [address] Monocyte, Absolute 0.7 10 3/mcL Normal 0.2-1.0 [facility] ([place]) Comment on above: Performed By: #### C BC, CMP, LIPID, ANEU, TSH, ADIFF, GFR, VIDH, FT4, FT3 #### [address] [address] #### B12 #### [address] [address] Monocytes/100 WBC (Bld) 9.1 % Normal 1.7-13.0 [facility] ([place]) Comment on above: Performed By: #### C BC, CMP, LIPID, ANEU, TSH, ADIFF, GFR, VIDH, FT4, FT3 #### [address] [address] #### B12 #### [address] [address] Neutrophils/100 WBC (Bld) 58.3 % Normal 37.0-80.0 [facility] ([place]) Comment on above: Performed By: #### C BC, CMP, LIPID, ANEU, TSH, ADIFF, GFR, VIDH, FT4, FT3 #### [address] [address] #### B12 #### [address] [address] .GFRon 08-26-2023 GFR 15 ml/min/1.73sqm Normal [facility] ([place]) Comment on above: Result Comment: GFR Population mean for , Non- Americans Ages 20-29 = 116 mL/min/1.73 sq.m. Ages 30-39 = 107 mL/min/1.73 sq.m. Ages 40-49 = 99 mL/min/1.73 sq.m. Ages 50-59 = 93 mL/min/1.73 sq.m. Ages 60-69 = 85 mL/min/1.73 sq.m. Ages 70+ = 75 mL/min/1.73 sq.m. Chronic Kidney Disease: Less than 60 mL/min/1.73 square meters End Stage Renal Disease: Less than 15 mL/min/1.73 square meters Performed By: #### L IPID, CMP, GFR, TSH, A1C #### [address] [address] GFR Non- 12 ml/min/1.73sqm Normal [facility] ([place]) Comment on above: Result Comment: GFR Population mean for , Non- Americans Ages 20-29 = 116 mL/min/1.73 sq.m. Ages 30-39 = 107 mL/min/1.73 sq.m. Ages 40-49 = 99 mL/min/1.73 sq.m. Ages 50-59 = 93 mL/min/1.73 sq.m. Ages 60-69 = 85 mL/min/1.73 sq.m. Ages 70+ = 75 mL/min/1.73 sq.m. Chronic Kidney Disease: Less than 60 mL/min/1.73 square meters End Stage Renal Disease: Less than 15 mL/min/1.73 square meters Performed By: #### L IPID, CMP, GFR, TSH, A1C #### [address] [address] .NEUABSon 08-26-2023 Neutrophil, Absolute 4.4 10 3/mcL Normal 2.9-6.2 [facility] ([place]) Comment on above: Performed By: #### C BC, CMP, LIPID, ANEU, TSH, ADIFF, GFR, VIDH, FT4, FT3 #### [address] [address] #### B12 #### [place] [address] B12on 08-26-2023 Cobalamin (Vitamin B12) [Mass/Vol] 990 pg/mL High 211-911 [facility] ([place]) Comment on above: Performed By: #### L IPID, CMP, GFR, TSH, A1C #### [place] [address] CBCon 08-26-2023 Erythrocyte distribution width (RBC) [Ratio] 15.1 % High 11.5-14.5 [facility] ([place]) Comment on above: Performed By: #### C BC, CMP, LIPID, ANEU, TSH, ADIFF, GFR, VIDH, FT4, FT3 #### [place] [address] #### B12 #### [place] [address] Hematocrit (Bld) [Volume fraction] 34.4 % Low 37.0-47.0 [facility] ([place]) Comment on above: Performed By: #### C BC, CMP, LIPID, ANEU, TSH, ADIFF, GFR, VIDH, FT4, FT3 #### [place] [address] #### B12 #### [place] [address] Hgb 11.7 G/dL Low 12.0-16.0 [facility] ([place]) Comment on above: Performed By: #### C BC, CMP, LIPID, ANEU, TSH, ADIFF, GFR, VIDH, FT4, FT3 #### [place] [address] #### B12 #### [address] [address] MCH (RBC) [Entitic mass] 31.3 pg High 27.0-31.2 [facility] ([place]) Comment on above: Performed By: #### C BC, CMP, LIPID, ANEU, TSH, ADIFF, GFR, VIDH, FT4, FT3 #### [place] [address] #### B12 #### [place] [address] MCHC 34.1 G/dL Normal 33.0-37.0 [facility] ([place]) Comment on above: Performed By: #### C BC, CMP, LIPID, ANEU, TSH, ADIFF, GFR, VIDH, FT4, FT3 #### [place] [address] #### B12 #### [place] [id number] MCV (RBC) [Entitic vol] 91.5 fL Normal 80.0-94.0 [facility] ([place]) Comment on above: Performed By: #### C BC, CMP, LIPID, ANEU, TSH, ADIFF, GFR, VIDH, FT4, FT3 #### [place] [address] #### B12 #### [place] [address] Platelet 203 10 3/mcL Normal 130-400 [facility] ([place]) Comment on above: Performed By: #### C BC, CMP, LIPID, ANEU, TSH, ADIFF, GFR, VIDH, FT4, FT3 #### [place] [address] #### B12 #### [place] [address] Platelet mean volume (Bld) [Entitic vol] 7.9 fL Normal 7.4-10.4 [facility] ([place]) Comment on above: Performed By: #### C BC, CMP, LIPID, ANEU, TSH, ADIFF, GFR, VIDH, FT4, FT3 #### [place] [address] #### B12 #### [place] [address] RBC 3.76 10 6/mcL Low 4.20-5.40 [facility] ([place]) Comment on above: Performed By: #### C BC, CMP, LIPID, ANEU, TSH, ADIFF, GFR, VIDH, FT4, FT3 #### [place] [address] #### B12 #### [address] [address] WBC 7.5 10 3/mcL Normal 4.6-10.8 [facility] ([place]) Comment on above: Performed By: #### C BC, CMP, LIPID, ANEU, TSH, ADIFF, GFR, VIDH, FT4, FT3 #### [address] [address] #### B12 #### [address] [address] CMPon 08-26-2023 Albumin Level 3.3 G/dL Low 3.4-4.8 [facility] ([place]) Comment on above: Performed By: #### L IPID, CMP, GFR, TSH, A1C #### [address] [address] Albumin/Globulin [Mass ratio] 0.9 {ratio} Low 1.1-2.5 [facility] ([place]) Comment on above: Performed By: #### L IPID, CMP, GFR, TSH, A1C #### [address] [address] ALP [Catalytic activity/Vol] 126 U/L Normal 40-135 [facility] ([place]) Comment on above: Performed By: #### L IPID, CMP, GFR, TSH, A1C #### [address] [address] ALT [Catalytic activity/Vol] 23 U/L Normal 14-59 [facility] ([place]) Comment on above: Performed By: #### L IPID, CMP, GFR, TSH, A1C #### [address] [address] AST [Catalytic activity/Vol] 24 U/L Normal 10-40 [facility] ([place]) Comment on above: Performed By: #### L IPID, CMP, GFR, TSH, A1C #### [address] [address] Bili Total 0.5 mg/dL Normal 0.2-1.0 [facility] ([place]) Comment on above: Result Comment: Use of this assay is not recommended for patients undergoing treatment with eltrombopag due to the potential for falsely elevated results. Performed By: #### L IPID, CMP, GFR, TSH, A1C #### [address] [address] BUN/Creatinine Ratio 13 ratio Normal 7-27 [facility] ([place]) Comment on above: Performed By: #### L IPID, CMP, GFR, TSH, A1C #### [address] [address] Calcium [Mass/Vol] 9.7 mg/dL Normal 8.4-10.2 [facility] ([place]) Comment on above: Performed By: #### L IPID, CMP, GFR, TSH, A1C #### [address] [address] Chloride [Moles/Vol] 99 mmol/L Normal 98-107 [facility] ([place]) Comment on above: Performed By: #### L IPID, CMP, GFR, TSH, A1C #### [address] [address] CO2 [Moles/Vol] 31 mmol/L Normal 23-31 [facility] ([place]) Comment on above: Performed By: #### L IPID, CMP, GFR, TSH, A1C #### [address] [address] Creatinine [Mass/Vol] 3.69 mg/dL High 0.55-1.02 [facility] ([place]) Comment on above: Performed By: #### L IPID, CMP, GFR, TSH, A1C #### [address] [address] Electrolyte Balance 15.0 mEq/L Normal 4.0-15.0 [facility] ([place]) Comment on above: Performed By: #### L IPID, CMP, GFR, TSH, A1C #### [address] [address] Globulin 3.8 G/dL Normal [facility] ([place]) Comment on above: Performed By: #### L IPID, CMP, GFR, TSH, A1C #### [address] [address] Glucose [Mass/Vol] 101 mg/dL Normal 83-110 [facility] ([place]) Comment on above: Performed By: #### L IPID, CMP, GFR, TSH, A1C #### [address] [address] Potassium [Moles/Vol] 4.1 mmol/L Normal 3.5-5.1 [facility] ([place]) Comment on above: Performed By: #### L IPID, CMP, GFR, TSH, A1C #### [address] [address] Sodium [Moles/Vol] 145 mmol/L Normal 136-145 [facility] ([place]) Comment on above: Performed By: #### L IPID, CMP, GFR, TSH, A1C #### [address] [address] Total Protein 7.1 G/dL Normal 6.4-8.2 [facility] ([place]) Comment on above: Performed By: #### L IPID, CMP, GFR, TSH, A1C #### [address] [address] Urea nitrogen [Mass/Vol] 47 mg/dL High 7-18 [facility] ([place]) Comment on above: Performed By: #### L IPID, CMP, GFR, TSH, A1C #### [address] [address] FT3on 08-26-2023 Free T3 [Mass/Vol] 2.14 pg/mL Low 2.30-4.00 [facility] ([place]) Comment on above: Performed By: #### L IPID, CMP, GFR, TSH, A1C #### [address] [address] FT4on 08-26-2023 Free T4 [Mass/Vol] 1.00 ng/dL Normal 0.76-1.46 [facility] ([place]) Comment on above: Performed By: #### L IPID, CMP, GFR, TSH, A1C #### [address] [address] LIPIDon 08-26-2023 Cholesterol [Mass/Vol] 126 mg/dL Normal 0-200 [facility] ([place]) Comment on above: Result Comment: Chol esterol Reference Interval: Less than 200 Desirable 200-239 Borderline high risk 240 and above High risk Performed By: #### L IPID, CMP, GFR, TSH, A1C #### [address] [address] Cholesterol in HDL [Mass/Vol] 57 mg/dL Normal 40-60 [facility] ([place]) Comment on above: Performed By: #### L IPID, CMP, GFR, TSH, A1C #### [address] [address] Cholesterol in LDL [Mass/Vol] 48 mg/dL Normal 0-130 [facility] ([place]) Comment on above: Performed By: #### L IPID, CMP, GFR, TSH, A1C #### [address] [address] Triglyceride [Mass/Vol] 105 mg/dL Normal 0-150 [facility] ([place]) Comment on above: Result Comment: Trig lyceride Reference Interval: Less than 150 Normal 150-199 Borderline high risk 200-499 High risk 500 or higher Very high risk Performed By: #### L IPID, CMP, GFR, TSH, A1C #### [address] [address] TSHon 08-26-2023 TSH Qn 0.56 m[IU]/L Normal 0.36-3.74 [facility] ([place]) Comment on above: Performed By: #### C BC, CMP, LIPID, ANEU, TSH, ADIFF, GFR, VIDH, FT4, FT3 #### [address] [address] #### B12 #### [place] [address] VIDHon 08-26-2023 Vit. D 25-Hydroxy 56.3 ng/mL Normal [facility] ([place]) Comment on above: Result Comment: Inte rpretive Values Based on Total 25(OH) Vitamin D: Deficient <20 ng/mL Insufficient 20 - <30 ng/mL Sufficient 30-100 ng/mL Performed By: #### L IPID, CMP, GFR, TSH, A1C #### [place] [address] [place], [place] [address] Bacteria identified Aer cx N om (Ear)Ordered By: Dony Floyd on 08-18-2023 Ear Culture Haemophilus parainfluenzae [facility] Ear Culture Haemophilus parainfluene [facility] Bacteria identified Anaer cx Nom (Unsp spec)Ordered By: Dony Floyd on 08-18-2023 Anaerobic Culture Anaerobic cocci [facility] Anaerobic Culture Anaerobic cocci [facility] Gram stain for investigation of transfusion reactionOrdered By: Dony Floyd on 08-18-2023 Microscopic observation Gram stain Nom (Unsp spec) [facility] Microscopic observation Gram stain Nom (Unsp spec) [facility] .GFRon 05-31-2023 GFR 28 ml/min/1.73sqm Normal [facility] ([place]) Comment on above: Result Comment: GFR Population mean for , Non- Americans Ages 20-29 = 116 mL/min/1.73 sq.m. Ages 30-39 = 107 mL/min/1.73 sq.m. Ages 40-49 = 99 mL/min/1.73 sq.m. Ages 50-59 = 93 mL/min/1.73 sq.m. Ages 60-69 = 85 mL/min/1.73 sq.m. Ages 70+ = 75 mL/min/1.73 sq.m. Chronic Kidney Disease: Less than 60 mL/min/1.73 square meters End Stage Renal Disease: Less than 15 mL/min/1.73 square meters Performed By: #### L IPID, CMP, GFR, TSH, A1C #### [place] [address] [place], [place] [address] GFR Non- 23 ml/min/1.73sqm Normal [facility] ([place]) Comment on above: Result Comment: GFR Population mean for , Non- Americans Ages 20-29 = 116 mL/min/1.73 sq.m. Ages 30-39 = 107 mL/min/1.73 sq.m. Ages 40-49 = 99 mL/min/1.73 sq.m. Ages 50-59 = 93 mL/min/1.73 sq.m. Ages 60-69 = 85 mL/min/1.73 sq.m. Ages 70+ = 75 mL/min/1.73 sq.m. Chronic Kidney Disease: Less than 60 mL/min/1.73 square meters End Stage Renal Disease: Less than 15 mL/min/1.73 square meters Performed By: #### L IPID, CMP, GFR, TSH, A1C #### [address] [address] A1Con 05-31-2023 HbA1c (Bld) [Mass fraction] 5.1 % Normal 4.3-6.4 [facility] ([place]) Comment on above: Performed By: #### L IPID, CMP, GFR, TSH, A1C #### [address] [address] CMPon 05-31-2023 Albumin Level 3.8 G/dL Normal 3.4-4.8 [facility] ([place]) Comment on above: Performed By: #### L IPID, CMP, GFR, TSH, A1C #### [address] [address] Albumin/Globulin [Mass ratio] 0.9 {ratio} Low 1.1-2.5 [facility] ([place]) Comment on above: Performed By: #### L IPID, CMP, GFR, TSH, A1C #### [address] [address] ALP [Catalytic activity/Vol] 131 U/L Normal 40-135 [facility] ([place]) Comment on above: Performed By: #### L IPID, CMP, GFR, TSH, A1C #### [address] [address] ALT [Catalytic activity/Vol] 27 U/L Normal 14-59 [facility] ([place]) Comment on above: Performed By: #### L IPID, CMP, GFR, TSH, A1C #### [address] [address] AST [Catalytic activity/Vol] 28 U/L Normal 10-40 [facility] ([place]) Comment on above: Performed By: #### L IPID, CMP, GFR, TSH, A1C #### [address] [address] Bili Total 0.5 mg/dL Normal 0.2-1.0 [facility] ([place]) Comment on above: Result Comment: Use of this assay is not recommended for patients undergoing treatment with eltrombopag due to the potential for falsely elevated results. Performed By: #### L IPID, CMP, GFR, TSH, A1C #### [address] [address] BUN/Creatinine Ratio 8 ratio Normal 7-27 [facility] ([place]) Comment on above: Performed By: #### L IPID, CMP, GFR, TSH, A1C #### [address] [address] Calcium [Mass/Vol] 9.7 mg/dL Normal 8.4-10.2 [facility] ([place]) Comment on above: Performed By: #### L IPID, CMP, GFR, TSH, A1C #### [address] [address] Chloride [Moles/Vol] 96 mmol/L Low 98-107 [facility] ([place]) Comment on above: Performed By: #### L IPID, CMP, GFR, TSH, A1C #### [address] [address] CO2 [Moles/Vol] 30 mmol/L Normal 23-31 [facility] ([place]) Comment on above: Performed By: #### L IPID, CMP, GFR, TSH, A1C #### [address] [address] Creatinine [Mass/Vol] 2.13 mg/dL High 0.55-1.02 [facility] ([place]) Comment on above: Performed By: #### L IPID, CMP, GFR, TSH, A1C #### [address] [address] Electrolyte Balance 11.0 mEq/L Normal 4.0-15.0 [facility] ([place]) Comment on above: Performed By: #### L IPID, CMP, GFR, TSH, A1C #### [address] [address] Globulin 4.1 G/dL Normal [facility] ([place]) Comment on above: Performed By: #### L IPID, CMP, GFR, TSH, A1C #### [address] [address] Glucose [Mass/Vol] 158 mg/dL High 83-110 [facility] ([place]) Comment on above: Performed By: #### L IPID, CMP, GFR, TSH, A1C #### [address] [address] Potassium [Moles/Vol] 3.8 mmol/L Normal 3.5-5.1 [facility] ([place]) Comment on above: Performed By: #### L IPID, CMP, GFR, TSH, A1C #### [address] [address] Sodium [Moles/Vol] 137 mmol/L Normal 136-145 [facility] ([place]) Comment on above: Performed By: #### L IPID, CMP, GFR, TSH, A1C #### [address] [address] Total Protein 7.9 G/dL Normal 6.4-8.2 [facility] ([place]) Comment on above: Performed By: #### L IPID, CMP, GFR, TSH, A1C #### [address] [address] Urea nitrogen [Mass/Vol] 16 mg/dL Normal 7-18 [facility] ([place]) Comment on above: Performed By: #### L IPID, CMP, GFR, TSH, A1C #### [address] [address] LABORATORYOrdered By: SYSTEM SYSTEM on 05-31-2023 Albumin BCP dye [Mass/Vol] 3.8 G/dL Invalid Interpretation Code 3.4 - 4.8 G/dL AO ADM SS Albumin/Globulin [Mass ratio] 0.9 {ratio} Invalid Interpretation Code 1.1 - 2.5 ratio AO ADM SS ALP [Catalytic activity/Vol] 131 U/L Invalid Interpretation Code 40 - 135 U/L AO ADM SS ALT With P-5'-P [Catalytic activity/Vol] 27 U/L Invalid Interpretation Code 14 - 59 U/L AO ADM SS AST With P-5'-P [Catalytic activity/Vol] 28 U/L Invalid Interpretation Code 10 - 40 U/L AO ADM SS Bilirubin [Mass/Vol] 0.5 mg/dL Invalid Interpretation Code 0.2 - 1.0 mg/dL AO ADM SS Comment on above: Interpretive Data: U se of this assay is not recommended for patients undergoing treatment with eltrombopag due to the potential for falsely elevated results. Calcium [Mass/Vol] 9.7 mg/dL Invalid Interpretation Code 8.4 - 10.2 mg/dL AO ADM SS Chloride [Moles/Vol] 96 mmol/L Invalid Interpretation Code 98 - 107 mmol/L AO ADM SS CO2 [Moles/Vol] 30 mmol/L Invalid Interpretation Code 23 - 31 mmol/L AO ADM SS Creatinine [Mass/Vol] 2.13 mg/dL Invalid Interpretation Code 0.55 - 1.02 mg/dL AO ADM SS Electrolyte Balance 11.0 mEq/L Invalid Interpretation Code 4.0 - 15.0 mEq/L AO ADM SS GFR/1.73 sq M.predicted among blacks MDRD (S/P/Bld) [Vol rate/Area] 28 ml/min/1.73sqm Invalid Interpretation Code AO Chemistry S Comment on above: Interpretive Data: GFR Population mean for , Non- Americans Ages 20-29 = 116 mL/min/1.73 sq.m. Ages 30-39 = 107 mL/min/1.73 sq.m. Ages 40-49 = 99 mL/min/1.73 sq.m. Ages 50-59 = 93 mL/min/1.73 sq.m. Ages 60-69 = 85 mL/min/1.73 sq.m. Ages 70+ = 75 mL/min/1.73 sq.m. Chronic Kidney Disease: Less than 60 mL/min/1.73 square meters End Stage Renal Disease: Less than 15 mL/min/1.73 square meters GFR/1.73 sq M.predicted among non-blacks MDRD (S/P/Bld) [Vol rate/Area] 23 ml/min/1.73sqm Invalid Interpretation Code AO Chemistry S Comment on above: Interpretive Data: GFR Population mean for , Non- Americans Ages 20-29 = 116 mL/min/1.73 sq.m. Ages 30-39 = 107 mL/min/1.73 sq.m. Ages 40-49 = 99 mL/min/1.73 sq.m. Ages 50-59 = 93 mL/min/1.73 sq.m. Ages 60-69 = 85 mL/min/1.73 sq.m. Ages 70+ = 75 mL/min/1.73 sq.m. Chronic Kidney Disease: Less than 60 mL/min/1.73 square meters End Stage Renal Disease: Less than 15 mL/min/1.73 square meters Globulin 4.1 G/dL Invalid Interpretation Code AO ADM SS Glucose [Mass/Vol] 158 mg/dL Invalid Interpretation Code 83 - 110 mg/dL AO ADM SS HbA1c (Bld) [Mass fraction] 5.1 % Invalid Interpretation Code 4.3 - 6.4 % AO ADM SS Potassium [Moles/Vol] 3.8 mmol/L Invalid Interpretation Code 3.5 - 5.1 mmol/L AO ADM SS Protein [Mass/Vol] 7.9 G/dL Invalid Interpretation Code 6.4 - 8.2 G/dL AO ADM SS Sodium [Moles/Vol] 137 mmol/L Invalid Interpretation Code 136 - 145 mmol/L AO ADM SS TSH Qn 0.55 m[IU]/L Invalid Interpretation Code 0.36 - 3.74 mcIU/mL AO ADM SS Urea nitrogen [Mass/Vol] 16 mg/dL Invalid Interpretation Code 7 - 18 mg/dL AO ADM SS Urea nitrogen/Creatinine [Mass ratio] 8 ratio Invalid Interpretation Code 7 - 27 ratio AO ADM SS LABORATORYOrdered By: Yayr Sotelo on 05-31-2023 Cholesterol [Mass/Vol] 141 mg/dL Invalid Interpretation Code 0 - 200 mg/dL AO ADM SS Comment on above: Interpretive Data: C holesterol Reference Interval: Less than 200 Desirable 200-239 Borderline high risk 240 and above High risk Cholesterol in HDL [Mass/Vol] 65 mg/dL Invalid Interpretation Code 40 - 60 mg/dL AO ADM SS Cholesterol in LDL [Mass/Vol] 46 mg/dL Invalid Interpretation Code 0 - 130 mg/dL AO ADM SS Triglyceride [Mass/Vol] 152 mg/dL Invalid Interpretation Code 0 - 150 mg/dL AO ADM SS Comment on above: Interpretive Data: T riglyceride Reference Interval: Less than 150 Normal 150-199 Borderline high risk 200-499 High risk 500 or higher Very high risk LIPIDon 05-31-2023 Cholesterol [Mass/Vol] 141 mg/dL Normal 0-200 [facility] ([place]) Comment on above: Result Comment: Chol esterol Reference Interval: Less than 200 Desirable 200-239 Borderline high risk 240 and above High risk Performed By: #### L IPID, CMP, GFR, TSH, A1C #### [address] [address] Cholesterol in HDL [Mass/Vol] 65 mg/dL High 40-60 [facility] ([place]) Comment on above: Performed By: #### L IPID, CMP, GFR, TSH, A1C #### [address] [address] Cholesterol in LDL [Mass/Vol] 46 mg/dL Normal 0-130 [facility] ([place]) Comment on above: Performed By: #### L IPID, CMP, GFR, TSH, A1C #### [address] [address] Triglyceride [Mass/Vol] 152 mg/dL High 0-150 [facility] ([place]) Comment on above: Result Comment: Trig lyceride Reference Interval: Less than 150 Normal 150-199 Borderline high risk 200-499 High risk 500 or higher Very high risk Performed By: #### L IPID, CMP, GFR, TSH, A1C #### [address] [address] TSHon 05-31-2023 TSH Qn 0.55 m[IU]/L Normal 0.36-3.74 [facility] ([place]) Comment on above: Performed By: #### L IPID, CMP, GFR, TSH, A1C #### [address] [address] [address] ABD/PEL WO IVCONon 2022 [facility] .Auto Diffon 04-01-2023 Basophil, Absolute 0.1 10 3/mcL Normal 0.0-0.2 [facility] ([place]) Comment on above: Performed By: #### L IPID, CMP, GFR, TSH, A1C #### [address] [address] Basophils/100 WBC (Bld) 1.0 % Normal 0.0-2.5 [facility] ([place]) Comment on above: Performed By: #### L IPID, CMP, GFR, TSH, A1C #### [address] [address] Eosinophil, Absolute 0.3 10 3/mcL Normal 0.0-0.4 [facility] ([place]) Comment on above: Performed By: #### L IPID, CMP, GFR, TSH, A1C #### [address] [address] Eosinophils/100 WBC (Bld) 3.4 % Normal 0.0-7.0 [facility] ([place]) Comment on above: Performed By: #### L IPID, CMP, GFR, TSH, A1C #### [address] [address] Lymphocyte, Absolute 1.9 10 3/mcL Normal 0.8-3.9 [facility] ([place]) Comment on above: Performed By: #### L IPID, CMP, GFR, TSH, A1C #### [address] [address] Lymphocytes/100 WBC (Bld) 24.2 % Normal 10.0-50.0 [facility] ([place]) Comment on above: Performed By: #### L IPID, CMP, GFR, TSH, A1C #### [address] [address] Monocyte, Absolute 0.8 10 3/mcL Normal 0.2-1.0 [facility] ([place]) Comment on above: Performed By: #### L IPID, CMP, GFR, TSH, A1C #### [address] [address] Monocytes/100 WBC (Bld) 9.8 % Normal 1.7-13.0 [facility] ([place]) Comment on above: Performed By: #### L IPID, CMP, GFR, TSH, A1C #### [address] [address] Neutrophils/100 WBC (Bld) 61.6 % Normal 37.0-80.0 [facility] ([place]) Comment on above: Performed By: #### L IPID, CMP, GFR, TSH, A1C #### [address] [address] .GFRon 04-01-2023 GFR 12 ml/min/1.73sqm Normal [facility] ([place]) Comment on above: Result Comment: GFR Population mean for , Non- Americans Ages 20-29 = 116 mL/min/1.73 sq.m. Ages 30-39 = 107 mL/min/1.73 sq.m. Ages 40-49 = 99 mL/min/1.73 sq.m. Ages 50-59 = 93 mL/min/1.73 sq.m. Ages 60-69 = 85 mL/min/1.73 sq.m. Ages 70+ = 75 mL/min/1.73 sq.m. Chronic Kidney Disease: Less than 60 mL/min/1.73 square meters End Stage Renal Disease: Less than 15 mL/min/1.73 square meters Performed By: #### L IPID, CMP, GFR, TSH, A1C #### [address] [address] GFR Non- 10 ml/min/1.73sqm Normal [facility] ([place]) Comment on above: Result Comment: GFR Population mean for , Non- Americans Ages 20-29 = 116 mL/min/1.73 sq.m. Ages 30-39 = 107 mL/min/1.73 sq.m. Ages 40-49 = 99 mL/min/1.73 sq.m. Ages 50-59 = 93 mL/min/1.73 sq.m. Ages 60-69 = 85 mL/min/1.73 sq.m. Ages 70+ = 75 mL/min/1.73 sq.m. Chronic Kidney Disease: Less than 60 mL/min/1.73 square meters End Stage Renal Disease: Less than 15 mL/min/1.73 square meters Performed By: #### L IPID, CMP, GFR, TSH, A1C #### [place] [address] .NEUABSon 04-01-2023 Neutrophil, Absolute 4.8 10 3/mcL Normal 2.9-6.2 [facility] ([place]) Comment on above: Performed By: #### L IPID, CMP, GFR, TSH, A1C #### [place] [address] B12on 04-01-2023 Vitamin B12 Lvl >2000 High 211-911 [facility] ([place]) Comment on above: Performed By: #### L IPID, CMP, GFR, TSH, A1C #### [place] [address] CBCon 04-01-2023 Erythrocyte distribution width (RBC) [Ratio] 15.2 % High 11.5-14.5 [facility] ([place]) Comment on above: Performed By: #### L IPID, CMP, GFR, TSH, A1C #### [place] [id number] Hematocrit (Bld) [Volume fraction] 32.5 % Low 37.0-47.0 [facility] ([place]) Comment on above: Performed By: #### L IPID, CMP, GFR, TSH, A1C #### [place] [id number] Hgb 11.2 G/dL Low 12.0-16.0 [facility] ([place]) Comment on above: Performed By: #### L IPID, CMP, GFR, TSH, A1C #### [place] [id number] MCH (RBC) [Entitic mass] 31.8 pg High 27.0-31.2 [facility] ([place]) Comment on above: Performed By: #### L IPID, CMP, GFR, TSH, A1C #### [address] [address] MCHC 34.6 G/dL Normal 33.0-37.0 [facility] ([place]) Comment on above: Performed By: #### L IPID, CMP, GFR, TSH, A1C #### [address] [address] MCV (RBC) [Entitic vol] 91.9 fL Normal 80.0-94.0 [facility] ([place]) Comment on above: Performed By: #### L IPID, CMP, GFR, TSH, A1C #### [address] [address] Platelet 254 10 3/mcL Normal 130-400 [facility] ([place]) Comment on above: Performed By: #### L IPID, CMP, GFR, TSH, A1C #### [address] [address] Platelet mean volume (Bld) [Entitic vol] 7.7 fL Normal 7.4-10.4 [facility] ([place]) Comment on above: Performed By: #### L IPID, CMP, GFR, TSH, A1C #### [address] [address] RBC 3.53 10 6/mcL Low 4.20-5.40 [facility] ([place]) Comment on above: Performed By: #### L IPID, CMP, GFR, TSH, A1C #### [address] [address] WBC 7.8 10 3/mcL Normal 4.6-10.8 [facility] ([place]) Comment on above: Performed By: #### L IPID, CMP, GFR, TSH, A1C #### [address] [address] CMPon 04-01-2023 Albumin Level 3.7 G/dL Normal 3.4-4.8 [facility] ([place]) Comment on above: Performed By: #### L IPID, CMP, GFR, TSH, A1C #### [address] [address] Albumin/Globulin [Mass ratio] 1.0 {ratio} Low 1.1-2.5 [facility] ([place]) Comment on above: Performed By: #### L IPID, CMP, GFR, TSH, A1C #### [address] [address] ALP [Catalytic activity/Vol] 126 U/L Normal 40-135 [facility] ([place]) Comment on above: Performed By: #### L IPID, CMP, GFR, TSH, A1C #### [address] [address] ALT [Catalytic activity/Vol] 34 U/L Normal 14-59 [facility] ([place]) Comment on above: Performed By: #### L IPID, CMP, GFR, TSH, A1C #### [address] [address] AST [Catalytic activity/Vol] 33 U/L Normal 10-40 [facility] ([place]) Comment on above: Performed By: #### L IPID, CMP, GFR, TSH, A1C #### [address] [address] Bili Total 0.8 mg/dL Normal 0.2-1.0 [facility] ([place]) Comment on above: Result Comment: Use of this assay is not recommended for patients undergoing treatment with eltrombopag due to the potential for falsely elevated results. Performed By: #### L IPID, CMP, GFR, TSH, A1C #### [address] [address] BUN/Creatinine Ratio 8 ratio Normal 7-27 [facility] ([place]) Comment on above: Performed By: #### L IPID, CMP, GFR, TSH, A1C #### [address] [address] Calcium [Mass/Vol] 9.6 mg/dL Normal 8.4-10.2 [facility] ([place]) Comment on above: Performed By: #### L IPID, CMP, GFR, TSH, A1C #### [address] [address] Chloride [Moles/Vol] 99 mmol/L Normal 98-107 [facility] ([place]) Comment on above: Performed By: #### L IPID, CMP, GFR, TSH, A1C #### [address] [address] CO2 [Moles/Vol] 32 mmol/L High 23-31 [facility] ([place]) Comment on above: Performed By: #### L IPID, CMP, GFR, TSH, A1C #### [address] [address] Creatinine [Mass/Vol] 4.38 mg/dL High 0.55-1.02 [facility] ([place]) Comment on above: Performed By: #### L IPID, CMP, GFR, TSH, A1C #### [address] [address] Electrolyte Balance 8.0 mEq/L Normal 4.0-15.0 [facility] ([place]) Comment on above: Performed By: #### L IPID, CMP, GFR, TSH, A1C #### [address] [address] Globulin 3.7 G/dL Normal [facility] ([place]) Comment on above: Performed By: #### L IPID, CMP, GFR, TSH, A1C #### [address] [address] Glucose [Mass/Vol] 100 mg/dL Normal 83-110 [facility] ([place] Comment on above: Performed By: #### L IPID, CMP, GFR, TSH, A1C #### [address] [address] Potassium [Moles/Vol] 4.1 mmol/L Normal 3.5-5.1 [facility] ([place]) Comment on above: Performed By: #### L IPID, CMP, GFR, TSH, A1C #### [address] [address] Sodium [Moles/Vol] 139 mmol/L Normal 136-145 [facility] ([place] Comment on above: Performed By: #### L IPID, CMP, GFR, TSH, A1C #### [address] [address] Total Protein 7.4 G/dL Normal 6.4-8.2 [facility] ([place]) Comment on above: Performed By: #### L IPID, CMP, GFR, TSH, A1C #### [address] [address] Urea nitrogen [Mass/Vol] 34 mg/dL High 7-18 [facility] ([place]) Comment on above: Performed By: #### L IPID, CMP, GFR, TSH, A1C #### [address] [address] DIMERon 04-01-2023 D-Dimer 458 ng/mL D-DU High 0-230 [facility] ([place]) Comment on above: Result Comment: The result of the D-Dimer test should be evaluated in the context of all the clinical and laboratory data available. In those instances where the laboratory result does not agree with the clinical evaluation, additional tests should be performed accordingly. If the D-Dimer result is used to exclude DVT or PE, the recommended cutoff value is less than 230 ng/mL. The D-Dimer result should not be used alone to rule in DVT/PE, but should be used in conjunction with a clinical pretest probability (PTP)assessment model to exclude venous thromboembolism (VTE) in outpatients suspected of deep venous thrombosis (DVT) and pulmonary embolism (PE). Performed By: #### L IPID, CMP, GFR, TSH, A1C #### [address] [address] ESRon 04-01-2023 Erythrocyte Sed Rate 22 mm/hr Normal 0-30 [facility] ([place]) Comment on above: Performed By: #### L IPID, CMP, GFR, TSH, A1C #### [address] [address] FT4on 04-01-2023 Free T4 [Mass/Vol] 1.04 ng/dL Normal 0.76-1.46 [facility] ([place]) Comment on above: Performed By: #### L IPID, CMP, GFR, TSH, A1C #### [address] [place], [place] [address] LABORATORYOrdered By: Darius Shook on 04-01-2023 Cholesterol [Mass/Vol] 155 mg/dL Invalid Interpretation Code 0 - 200 mg/dL AO ADM SS Comment on above: Interpretive Data: C holesterol Reference Interval: Less than 200 Desirable 200-239 Borderline high risk 240 and above High risk Cholesterol in HDL [Mass/Vol] 62 mg/dL Invalid Interpretation Code 40 - 60 mg/dL AO ADM SS Cholesterol in LDL [Mass/Vol] 57 mg/dL Invalid Interpretation Code 0 - 130 mg/dL AO ADM SS Fibrin D-dimer DDU (PPP) [Mass/Vol] 458 ng/mL D-DU Invalid Interpretation Code 0 - 230 ng/mL D-DU AO [facility] SS Comment on above: Interpretive Data: T he result of the D-Dimer test should be evaluated in the context of all the clinical and laboratory data available. In those instances where the laboratory result does not agree with the clinical evaluation, additional tests should be performed accordingly. If the D-Dimer result is used to exclude DVT or PE, the recommended cutoff value is less than 230 ng/mL. The D-Dimer result should not be used alone to rule in DVT/PE, but should be used in conjunction with a clinical pretest probability (PTP)assessment model to exclude venous thromboembolism (VTE) in outpatients suspected of deep venous thrombosis (DVT) and pulmonary embolism (PE). Triglyceride [Mass/Vol] 178 mg/dL Invalid Interpretation Code 0 - 150 mg/dL AO ADM SS Comment on above: Interpretive Data: T riglyceride Reference Interval: Less than 150 Normal 150-199 Borderline high risk 200-499 High risk 500 or higher Very high risk LABORATORYOrdered By: SYSTEM SYSTEM on 04-01-2023 Cobalamin (Vitamin B12) [Mass/Vol] pg/mL Invalid Interpretation Code 211 - 911 pg/mL AH ADM SS Free T4 [Mass/Vol] 1.04 ng/dL Invalid Interpretation Code 0.76 - 1.46 ng/dL AO ADM SS Magnesium [Mass/Vol] 2.2 mg/dL Invalid Interpretation Code 1.8 - 2.4 mg/dL AO ADM SS TSH Qn 0.55 m[IU]/L Invalid Interpretation Code 0.36 - 3.74 mcIU/mL AO ADM SS Uric Acid Lvl 4.1 mg/dL Invalid Interpretation Code 2.6 - 6.2 mg/dL AO ADM SS LABORATORYOrdered By: Yary Sotelo on 04-01-2023 ESR Photometric method (Bld) [Velocity] 22 mm/hr Invalid Interpretation Code 0 - 30 mm/hr AO Man Heme SS LIPIDon 04-01-2023 Cholesterol [Mass/Vol] 155 mg/dL Normal 0-200 [facility] ([place]) Comment on above: Result Comment: Chol esterol Reference Interval: Less than 200 Desirable 200-239 Borderline high risk 240 and above High risk Performed By: #### L IPID, CMP, GFR, TSH, A1C #### [address] [address] Cholesterol in HDL [Mass/Vol] 62 mg/dL High 40-60 [facility] ([place]) Comment on above: Performed By: #### L IPID, CMP, GFR, TSH, A1C #### [address] [address] Cholesterol in LDL [Mass/Vol] 57 mg/dL Normal 0-130 [facility] ([place]) Comment on above: Performed By: #### L IPID, CMP, GFR, TSH, A1C #### [address] [address] Triglyceride [Mass/Vol] 178 mg/dL High 0-150 [facility] ([place]) Comment on above: Result Comment: Trig lyceride Reference Interval: Less than 150 Normal 150-199 Borderline high risk 200-499 High risk 500 or higher Very high risk Performed By: #### L IPID, CMP, GFR, TSH, A1C #### [address] [address] MGon 04-01-2023 Magnesium [Mass/Vol] 2.2 mg/dL Normal 1.8-2.4 [facility] ([place]) Comment on above: Performed By: #### L IPID, CMP, GFR, TSH, A1C #### [address] [address] TSHon 04-01-2023 TSH Qn 0.55 m[IU]/L Normal 0.36-3.74 [facility] ([place]) Comment on above: Performed By: #### L IPID, CMP, GFR, TSH, A1C #### [address] [address] URICon 04-01-2023 Uric Acid Lvl 4.1 mg/dL Normal 2.6-6.2 [facility] ([place]) Comment on above: Performed By: #### L IPID, CMP, GFR, TSH, A1C #### [address] [address] No Panel Informationon 01-22 Hepatitis B Surface Antigen Non-Reactive Nonreactive [facility] Absolute lymphocyte countOrd ered By: Kiara Philip on 11-05-2022 Lymphocytes Auto (Unsp spec) [#/Vol] 1.50 10*3/uL 0.83-4.51 [facility] Basophil percentageOrdered B y: Kiara Philip on 11-05-2022 Basophils/100 WBC (Bld) 0.8 % 0-1 [facility] Chloride [Moles/Vol] 101 mmol/L 98-107 [facility] Eosinophils/100 WBC (Bld) 3.0 % 0-5 [facility] Glucose [Mass/Vol] 91 mg/dL 74-106 [facility] Neutrophils (Bld) [#/Vol] 4.0 10*3/uL 2.0-7.7 [facility] Neutrophils/100 WBC (Bld) 63.0 % 47-70 [facility] Potassium [Moles/Vol] 4.1 mmol/L 3.5-5.1 [facility] Sodium [Moles/Vol] 136 mmol/L 136-145 [facility] WBC (Bld) [#/Vol] 6.4 10*3/uL 4.4-11.0 [facility] Blood erythrocytes count (nu mber/volume)Ordered By: Kiara Philip on 11-05-2022 RBC (Bld) [#/Vol] 3.89 10*6/uL 4.2-5.4 [facility] Blood hemoglobin measurement (mass/volume)Ordered By: Kiara Philip on 11-05-2022 Hemoglobin (Bld) [Mass/Vol] 11.7 g/dL 12.0-15.0 [facility] Blood lymphocytes/100 leukoc ytesOrdered By: Kiara Philip on 11-05-2022 Lymphocytes/100 WBC (Bld) 23.5 % 19-41 [facility] Blood monocytes/100 leukocyt esOrdered By: Kiara Philip on 11-05-2022 Monocytes/100 WBC (Bld) 9.2 % 0-10 [facility] Blood platelet mean volumeOr dered By: Kiara Philip on 11-05-2022 Platelet mean volume (Bld) [Entitic vol] 9.2 fL 6.2-12.0 [facility] Determination of erythrocyte mean corpuscular volume (MCV)Ordered By: Kiara Philip on 11-05-2022 MCV (RBC) [Entitic vol] 95.1 fL 81-99 [facility] Hematocrit Auto (Bld) [Volum e fraction]Ordered By: Kiara Philip on 11-05-2022 Hematocrit (Bld) [Volume fraction] 37.0 % 37-47 [facility] Laboratory - Chemistry and C hemistry - challengeOrdered By: Kiara Philip on 11-05-2022 CO2 [Moles/Vol] 29.0 mmol/L 21.0-32.0 [facility] Urea nitrogen/Creatinine [Mass ratio] 12.6 mg/mg 10-20 [facility] Laboratory - Hematology and Cell countsOrdered By: Kiara Philip on 11-05-2022 Erythrocyte distribution width (RBC) [Entitic vol] 52.7 fL 35.1-43.9 [facility] Erythrocyte distribution width (RBC) [Ratio] 15.0 % 11.6-14.6 [facility] Immature granulocytes/100 WBC (Bld) 0.500 % 0.0-0.9 [facility] Comment on above: IG% - Immature Granu locytes (promyelocytes, myelocytes and metamyelocytes) > 1% indicates that a LEFT SHIFT is Present. MCH (RBC) [Entitic mass] 30.1 pg 27.0-32.0 [facility] Nucleated RBC/100 WBC (Bld) [Ratio] 0 % 0-5 [facility] MCHC Auto (RBC) [Mass/Vol]Or dered By: Kiara Philip on 11-05-2022 MCHC (RBC) [Mass/Vol] 31.6 g/dL 32-36 [facility] No Panel InformationOrdered By: Kiara Philip on 11-05-2022 Estimated GFR (MDRD) Amer 22 mL/min >60 [facility] Comment on above: GFR Calc Estimated GFR (MDRD) Non-Af Amer 19 mL/min >60 [facility] Comment on above: Non- GFR Calc Platelets bldOrdered By: Alysia Philip on 11-05-2022 Platelets (Bld) [#/Vol] 198 10*3/uL 150-450 [facility] Serum or plasma calcium jaydon urement (mass/volume)Ordered By: Kiara Philip on 11-05-2022 Calcium [Mass/Vol] 9.6 mg/dL 8.5-10.1 [facility] Serum or plasma creatinine m easurement (mass/volume)Ordered By: Kiara Philip on 11-05-2022 Creatinine [Mass/Vol] 2.70 mg/dL 0.55-1.02 [facility] Comment on above: The validity of the calculated GFR & GFRAA in patients over 70 years has not been determined. Clinical correlation is essential. Serum or plasma urea nitroge n measurement (mass/volume)Ordered By: Kiara Philip on 11-05-2022 Urea nitrogen [Mass/Vol] 34 mg/dL 7-18 [facility] Thin prep Papanicolaou smear with manual screeningOrdered By: Kiara Philip on 11-05-2022 Thin prep Papanicolaou smear with manual screening 6 5-15 [facility] LABORATORYOrdered By: SYSTEM SYSTEM on 08-29-2022 Albumin BCP dye [Mass/Vol] 3.1 G/dL Invalid Interpretation Code 3.4 - 4.8 G/dL AO ADM SS Albumin/Globulin [Mass ratio] 1.0 {ratio} Invalid Interpretation Code 1.1 - 2.5 ratio AO ADM SS ALP [Catalytic activity/Vol] 112 U/L Invalid Interpretation Code 40 - 135 U/L AO ADM SS ALT With P-5'-P [Catalytic activity/Vol] 24 U/L Invalid Interpretation Code 14 - 59 U/L AO ADM SS AST With P-5'-P [Catalytic activity/Vol] 28 U/L Invalid Interpretation Code 10 - 40 U/L AO ADM SS Bilirubin [Mass/Vol] 0.4 mg/dL Invalid Interpretation Code 0.2 - 1.0 mg/dL AO ADM SS Calcium [Mass/Vol] 9.4 mg/dL Invalid Interpretation Code 8.4 - 10.2 mg/dL AO ADM SS Chloride [Moles/Vol] 98 mmol/L Invalid Interpretation Code 98 - 107 mmol/L AO ADM SS CO2 [Moles/Vol] 29 mmol/L Invalid Interpretation Code 23 - 31 mmol/L AO ADM SS Cobalamin (Vitamin B12) [Mass/Vol] 816 pg/mL Invalid Interpretation Code 211 - 911 pg/mL AH ADM SS Creatinine [Mass/Vol] 2.79 mg/dL Invalid Interpretation Code 0.55 - 1.02 mg/dL AO ADM SS Electrolyte Balance 7.0 mEq/L Invalid Interpretation Code 4.0 - 15.0 mEq/L AO ADM SS Free T4 [Mass/Vol] 1.09 ng/dL Invalid Interpretation Code 0.76 - 1.46 ng/dL AO ADM SS GFR 20 ml/min/1.73sqm Invalid Interpretation Code AO Chemistry S GFR Non- 17 ml/min/1.73sqm Invalid Interpretation Code AO Chemistry S Globulin 3.2 G/dL Invalid Interpretation Code AO ADM SS Glucose [Mass/Vol] 90 mg/dL Invalid Interpretation Code 83 - 110 mg/dL AO ADM SS Magnesium [Mass/Vol] 2.1 mg/dL Invalid Interpretation Code 1.8 - 2.4 mg/dL AO ADM SS Potassium [Moles/Vol] 4.4 mmol/L Invalid Interpretation Code 3.5 - 5.1 mmol/L AO ADM SS Protein [Mass/Vol] 6.3 G/dL Invalid Interpretation Code 6.4 - 8.2 G/dL AO ADM SS Sodium [Moles/Vol] 134 mmol/L Invalid Interpretation Code 136 - 145 mmol/L AO ADM SS Urea nitrogen [Mass/Vol] 24 mg/dL Invalid Interpretation Code 7 - 18 mg/dL AO ADM SS Urea nitrogen/Creatinine [Mass ratio] 9 ratio Invalid Interpretation Code 7 - 27 ratio AO ADM SS LABORATORYOrdered By: Bharti Patel on 08-29-2022 Basophil, Absolute 0.1 103/mcL Invalid Interpretation Code 0.0 - 0.2 10^3/mcL AO Workflow SS Basophils/100 WBC (Bld) 1.4 % Invalid Interpretation Code 0.0 - 2.5 % AO Workflow SS Calcium.ionized (Bld) [Moles/Vol] 1.21 mmol/L Invalid Interpretation Code 1.12 - 1.32 mmol/L AO Blood Gas SS Eosinophil, Absolute 0.2 103/mcL Invalid Interpretation Code 0.0 - 0.4 10^3/mcL AO Workflow SS Eosinophils/100 WBC (Bld) 3.7 % Invalid Interpretation Code 0.0 - 7.0 % AO Workflow SS Erythrocyte distribution width (RBC) [Ratio] 15.7 % Invalid Interpretation Code 11.5 - 14.5 % AO Workflow SS Hematocrit (Bld) [Volume fraction] 35.5 % Invalid Interpretation Code 37.0 - 47.0 % AO Workflow SS Hemoglobin (Bld) [Mass/Vol] 12.0 G/dL Invalid Interpretation Code 12.0 - 16.0 G/dL AO Workflow SS Lymphocyte, Absolute 2.0 103/mcL Invalid Interpretation Code 0.8 - 3.9 10^3/mcL AO Workflow SS Lymphocytes/100 WBC (Bld) 31.9 % Invalid Interpretation Code 10.0 - 50.0 % AO Workflow SS MCH (RBC) [Entitic mass] 30.9 pg Invalid Interpretation Code 27.0 - 31.2 pg AO Workflow SS MCHC 33.7 G/dL Invalid Interpretation Code 33.0 - 37.0 G/dL AO Workflow SS MCV (RBC) [Entitic vol] 91.9 fL Invalid Interpretation Code 80.0 - 94.0 fL AO Workflow SS Monocyte, Absolute 0.5 103/mcL Invalid Interpretation Code 0.2 - 1.0 10^3/mcL AO Workflow SS Monocytes/100 WBC (Bld) 8.3 % Invalid Interpretation Code 1.7 - 13.0 % AO Workflow SS Neutrophil, Absolute 3.5 103/mcL Invalid Interpretation Code 2.9 - 6.2 10^3/mcL AO Workflow SS Neutrophils/100 WBC (Bld) 54.7 % Invalid Interpretation Code 37.0 - 80.0 % AO Workflow SS Platelet mean volume (Bld) [Entitic vol] 7.2 fL Invalid Interpretation Code 7.4 - 10.4 fL AO Workflow SS Platelets (Bld) [#/Vol] 247 103/mcL Invalid Interpretation Code 130 - 400 10^3/mcL AO Workflow SS RBC (Bld) [#/Vol] 3.87 106/mcL Invalid Interpretation Code 4.20 - 5.40 10^6/mcL AO Workflow SS WBC (Bld) [#/Vol] 6.4 103/mcL Invalid Interpretation Code 4.6 - 10.8 10^3/mcL AO Workflow SS Basophil percentageOrdered B y: Dr. Cheatham on 07-31-2022 Chloride [Moles/Vol] 99 mmol/L 98-107 [facility] Glucose [Mass/Vol] 114 mg/dL 74-106 [facility] Comment on above: Fasting Glucose resu lt from 100 to 125 mg/dL suggests IMPAIRED HOMEOSTASIS per A.D.A. criteria. Potassium [Moles/Vol] 4.7 mmol/L 3.5-5.1 [facility] Sodium [Moles/Vol] 135 mmol/L 136-145 [facility] WBC (Bld) [#/Vol] 6.9 10*3/uL 4.4-11.0 [facility] Blood erythrocytes count (nu mber/volume)Ordered By: Dr. Cheatham on 07-31-2022 RBC (Bld) [#/Vol] 4.33 10*6/uL 4.2-5.4 [facility] Blood hemoglobin measurement (mass/volume)Ordered By: Dr. Cheatham on 07-31-2022 Hemoglobin (Bld) [Mass/Vol] 13.3 g/dL 12.0-15.0 [facility] Blood platelet mean volumeOr dered By: Dr. Cheatham on 07-31-2022 Platelet mean volume (Bld) [Entitic vol] 9.2 fL 6.2-12.0 [facility] Determination of erythrocyte mean corpuscular volume (MCV)Ordered By: Dr. Cheatham on 07-31-2022 MCV (RBC) [Entitic vol] 98.2 fL 81-99 [facility] Hematocrit Auto (Bld) [Volum e fraction]Ordered By: Dr. Cheatham on 07-31-2022 Hematocrit (Bld) [Volume fraction] 42.5 % 37-47 [facility] Laboratory - Chemistry and C hemistry - challengeOrdered By: Dr. Cheatham on 07-31-2022 CO2 [Moles/Vol] 31.0 mmol/L 21.0-32.0 [facility] Urea nitrogen/Creatinine [Mass ratio] 7.1 mg/mg 10-20 [facility] Laboratory - Hematology and Cell countsOrdered By: Dr. Cheatham on 07-31-2022 Erythrocyte distribution width (RBC) [Entitic vol] 52.6 fL 35.1-43.9 [facility] Erythrocyte distribution width (RBC) [Ratio] 14.7 % 11.6-14.6 [facility] MCH (RBC) [Entitic mass] 30.7 pg 27.0-32.0 [facility] MCHC Auto (RBC) [Mass/Vol]Or dered By: Dr. Cheatham on 07-31-2022 MCHC (RBC) [Mass/Vol] 31.3 g/dL 32-36 [facility] No Panel InformationOrdered By: Dr. Cheatham on 07-31-2022 Estimated GFR (MDRD) Amer 26 mL/min >60 [facility] Comment on above: GFR Calc Estimated GFR (MDRD) Non-Af Amer 21 mL/min >60 [facility] Comment on above: Non- GFR Calc Platelets bldOrdered By: Dr. Cheatham on 07-31-2022 Platelets (Bld) [#/Vol] 291 10*3/uL 150-450 [facility] Serum or plasma calcium jaydon urement (mass/volume)Ordered By: Dr. Cheatham on 07-31-2022 Calcium [Mass/Vol] 9.7 mg/dL 8.5-10.1 [facility] Serum or plasma creatinine m easurement (mass/volume)Ordered By: Dr. Cheatham on 07-31-2022 Creatinine [Mass/Vol] 2.40 mg/dL 0.55-1.02 [facility] Comment on above: The validity of the calculated GFR & GFRAA in patients over 70 years has not been determined. Clinical correlation is essential. Serum or plasma urea nitroge n measurement (mass/volume)Ordered By: Dr. Cheatham on 07-31-2022 Urea nitrogen [Mass/Vol] 17 mg/dL 03-09 [facility] Thin prep Papanicolaou smear with manual screeningOrdered By: Dr. Cheatham on 07-31-2022 Thin prep Papanicolaou smear with manual screening 5 01-04 [facility] LABORATORYOrdered By: Yary Sotelo on 07-24-2022 Albumin BCP dye [Mass/Vol] 3.8 G/dL Invalid Interpretation Code 3.4 - 4.8 G/dL AO ADM SS Albumin/Globulin [Mass ratio] 1.0 {ratio} Invalid Interpretation Code 1.1 - 2.5 ratio AO ADM SS ALP [Catalytic activity/Vol] 114 U/L Invalid Interpretation Code 40 - 135 U/L AO ADM SS ALT With P-5'-P [Catalytic activity/Vol] 43 U/L Invalid Interpretation Code 14 - 59 U/L AO ADM SS AST With P-5'-P [Catalytic activity/Vol] 43 U/L Invalid Interpretation Code 10 - 40 U/L AO ADM SS Bilirubin [Mass/Vol] 0.6 mg/dL Invalid Interpretation Code 0.2 - 1.0 mg/dL AO ADM SS Calcium [Mass/Vol] 10.6 mg/dL Invalid Interpretation Code 8.4 - 10.2 mg/dL AO ADM SS Calcium.ionized (Bld) [Moles/Vol] 1.15 mmol/L Invalid Interpretation Code 1.12 - 1.32 mmol/L AO Blood Gas SS Chloride [Moles/Vol] 99 mmol/L Invalid Interpretation Code 98 - 107 mmol/L AO ADM SS Cholesterol [Mass/Vol] 352 mg/dL Invalid Interpretation Code 0 - 200 mg/dL AO ADM SS Cholesterol in HDL [Mass/Vol] 68 mg/dL Invalid Interpretation Code 40 - 60 mg/dL AO ADM SS Cholesterol in LDL [Mass/Vol] 266 mg/dL Invalid Interpretation Code 0 - 130 mg/dL AO ADM SS CO2 [Moles/Vol] 30 mmol/L Invalid Interpretation Code 23 - 31 mmol/L AO ADM SS Creatinine [Mass/Vol] 2.04 mg/dL Invalid Interpretation Code 0.55 - 1.02 mg/dL AO ADM SS Electrolyte Balance 10.0 mEq/L Invalid Interpretation Code 4.0 - 15.0 mEq/L AO ADM SS Free T4 [Mass/Vol] 1.00 ng/dL Invalid Interpretation Code 0.76 - 1.46 ng/dL AO ADM SS Globulin 3.8 G/dL Invalid Interpretation Code AO ADM SS Glucose [Mass/Vol] 100 mg/dL Invalid Interpretation Code 83 - 110 mg/dL AO ADM SS Potassium [Moles/Vol] 4.3 mmol/L Invalid Interpretation Code 3.5 - 5.1 mmol/L AO ADM SS Protein [Mass/Vol] 7.6 G/dL Invalid Interpretation Code 6.4 - 8.2 G/dL AO ADM SS Sodium [Moles/Vol] 139 mmol/L Invalid Interpretation Code 136 - 145 mmol/L AO ADM SS Triglyceride [Mass/Vol] 90 mg/dL Invalid Interpretation Code 0 - 150 mg/dL AO ADM SS TSH Qn 3.96 m[IU]/L Invalid Interpretation Code 0.36 - 3.74 mcIU/mL AO ADM SS Urea nitrogen [Mass/Vol] 13 mg/dL Invalid Interpretation Code 7 - 18 mg/dL AO ADM SS Urea nitrogen/Creatinine [Mass ratio] 6 ratio Invalid Interpretation Code 7 - 27 ratio AO ADM SS Vit. D 25-Hydroxy 57.5 ng/mL Invalid Interpretation Code AO ADM SS LABORATORYOrdered By: Marisela Pride on 07-24-2022 Basophil, Absolute 0.1 103/mcL Invalid Interpretation Code 0.0 - 0.2 10^3/mcL AO Workflow SS Basophils/100 WBC (Bld) 0.9 % Invalid Interpretation Code 0.0 - 2.5 % AO Workflow SS Eosinophil, Absolute 0.2 103/mcL Invalid Interpretation Code 0.0 - 0.4 10^3/mcL AO Workflow SS Eosinophils/100 WBC (Bld) 2.6 % Invalid Interpretation Code 0.0 - 7.0 % AO Workflow SS Erythrocyte distribution width (RBC) [Ratio] 15.9 % Invalid Interpretation Code 11.5 - 14.5 % AO Workflow SS Hematocrit (Bld) [Volume fraction] 39.6 % Invalid Interpretation Code 37.0 - 47.0 % AO Workflow SS Hemoglobin (Bld) [Mass/Vol] 13.2 G/dL Invalid Interpretation Code 12.0 - 16.0 G/dL AO Workflow SS Lymphocyte, Absolute 1.4 103/mcL Invalid Interpretation Code 0.8 - 3.9 10^3/mcL AO Workflow SS Lymphocytes/100 WBC (Bld) 21.5 % Invalid Interpretation Code 10.0 - 50.0 % AO Workflow SS MCH (RBC) [Entitic mass] 31.3 pg Invalid Interpretation Code 27.0 - 31.2 pg AO Workflow SS MCHC 33.4 G/dL Invalid Interpretation Code 33.0 - 37.0 G/dL AO Workflow SS MCV (RBC) [Entitic vol] 93.8 fL Invalid Interpretation Code 80.0 - 94.0 fL AO Workflow SS Monocyte, Absolute 0.5 103/mcL Invalid Interpretation Code 0.2 - 1.0 10^3/mcL AO Workflow SS Monocytes/100 WBC (Bld) 7.1 % Invalid Interpretation Code 1.7 - 13.0 % AO Workflow SS Neutrophil, Absolute 4.6 103/mcL Invalid Interpretation Code 2.9 - 6.2 10^3/mcL AO Workflow SS Neutrophils/100 WBC (Bld) 67.9 % Invalid Interpretation Code 37.0 - 80.0 % AO Workflow SS Platelet mean volume (Bld) [Entitic vol] 7.4 fL Invalid Interpretation Code 7.4 - 10.4 fL AO Workflow SS Platelets (Bld) [#/Vol] 262 103/mcL Invalid Interpretation Code 130 - 400 10^3/mcL AO Workflow SS RBC (Bld) [#/Vol] 4.23 106/mcL Invalid Interpretation Code 4.20 - 5.40 10^6/mcL AO Workflow SS WBC (Bld) [#/Vol] 6.8 103/mcL Invalid Interpretation Code 4.6 - 10.8 10^3/mcL AO Workflow SS LABORATORYOrdered By: SYSTEM SYSTEM on 07-24-2022 GFR 29 ml/min/1.73sqm Invalid Interpretation Code AO Chemistry S GFR Non- 24 ml/min/1.73sqm Invalid Interpretation Code AO Chemistry S Basophil percentageon 2021 Chloride [Moles/Vol] 103 mmol/L 98-[address] [facility] Work Phone: Glucose [Mass/Vol] 138 mg/dL 74-106 [facility] Work Phone: Comment on above: Fasting Glucose resu lt greater than or equal to 126 mg/dL suggests DIABETES MELLITUS per A.D.A. criteria. Potassium [Moles/Vol] 4.4 mmol/L 3.5-5.1 [facility] Work Phone: Sodium [Moles/Vol] 138 mmol/L 136-145 [facility] Work Phone: WBC (Bld) [#/Vol] 6.7 10*3/uL 4.4-11.0 [facility] Work Phone: Blood erythrocytes count (nu mber/volume)on 06-15-2022 RBC (Bld) [#/Vol] 3.51 10*6/uL 4.2-5.4 [facility] Work Phone: Blood hemoglobin measurement (mass/volume)on 06-15-2022 Hemoglobin (Bld) [Mass/Vol] 11.2 g/dL 12.0-15.0 [facility] Work Phone: Blood platelet mean volumeon 06-15-2022 Platelet mean volume (Bld) [Entitic vol] 9.2 fL 6.2-12.0 [facility] Work Phone: Determination of erythrocyte mean corpuscular volume (MCV)on 06-15-2022 MCV (RBC) [Entitic vol] 97.2 fL 81-99 [facility] Work Phone: Hematocrit Auto (Bld) [Volum e fraction]on 06-15-2022 Hematocrit (Bld) [Volume fraction] 34.1 % 37-47 [facility] Work Phone: Laboratory - Chemistry and C hemistry - challengeon 06-15-2022 CO2 [Moles/Vol] 27.0 mmol/L 21.0-32.0 [facility] Work Phone: Urea nitrogen/Creatinine [Mass ratio] 6.0 mg/mg 10- [facility] Work Phone: Laboratory - Hematology and Cell countson 06-15-2022 Erythrocyte distribution width (RBC) [Entitic vol] 55.7 fL 35.1-43.9 [facility] Work Phone: Erythrocyte distribution width (RBC) [Ratio] 15.6 % 11.6-14.6 [facility] Work Phone: MCH (RBC) [Entitic mass] 31.9 pg 27.0-32.0 [facility] Work Phone: MCHC Auto (RBC) [Mass/Vol]on 06-15-2022 MCHC (RBC) [Mass/Vol] 32.8 g/dL 32-36 [facility] Work Phone: No Panel Informationon 06-15 Estimated GFR (MDRD) Amer 20 mL/min >60 [facility] Work Phone: Comment on above: GFR Calc Estimated GFR (MDRD) Non-Af Amer 16 mL/min >60 [facility] Work Phone: Comment on above: Non- GFR Calc Platelets bldon 06-15-2022 Platelets (Bld) [#/Vol] 257 10*3/uL 150-450 [facility] Work Phone: Serum or plasma calcium jaydon urement (mass/volume)on 06-15-2022 Calcium [Mass/Vol] 9.3 mg/dL 8.5-10.1 [facility] Work Phone: Serum or plasma creatinine m easurement (mass/volume)on 06-15-2022 Creatinine [Mass/Vol] 3.01 mg/dL 0.55-1.02 [facility] Work Phone: Comment on above: The validity of the calculated GFR & GFRAA in patients over 70 years has not been determined. Clinical correlation is essential. Serum or plasma urea nitroge n measurement (mass/volume)on 06-15-2022 Urea nitrogen [Mass/Vol] 18 mg/dL 7-18 [facility] Work Phone: Thin prep Papanicolaou smear with manual screeningon 06-15-2022 Thin prep Papanicolaou smear with manual screening 8 5-15 [facility] Work Phone: Laboratory - Coagulationon 0 05-15-2022 aPTT Coag (Bld) [Time] 33.2 s 24.1-36.2 [facility] Work Phone: No Panel Informationon 04-10 Culture Urine No growth at 48 hours. [facility] Work Phone: LABORATORYOrdered By: Jayme Edwards on 03-27-2022 LDose Vancomycin: (random) See eMAR (03/27/22 10:48 AM) Invalid Interpretation Code Chemistry S LABORATORYOrdered By: SYSTEM SYSTEM on 03-27-2022 Vancomycin [Mass/Vol] 20.5 mcg/mL Invalid Interpretation Code AH ADM SS Calcium [Mass/Vol] 8.8 mg/dL Invalid Interpretation Code 8.7 - 10.4 mg/dL AH ADM SS Chloride [Moles/Vol] 104 mmol/L Invalid Interpretation Code 98 - 110 mEq/L AH ADM SS CO2 [Moles/Vol] 24 mmol/L Invalid Interpretation Code 22 - 32 mEq/L AH ADM SS Creatinine [Mass/Vol] 2.55 mg/dL Invalid Interpretation Code 0.50 - 1.20 mg/dL AH ADM SS Electrolyte Balance 7.0 mEq/L Invalid Interpretation Code 4.0 - 15.0 mEq/L AH ADM SS GFR/1.73 sq M.predicted among blacks MDRD (S/P/Bld) [Vol rate/Area] 23 ml/min/1.73sqm Invalid Interpretation Code AH Chemistry S GFR/1.73 sq M.predicted among non-blacks MDRD (S/P/Bld) [Vol rate/Area] 19 ml/min/1.73sqm Invalid Interpretation Code Chemistry S Glucose [Mass/Vol] 97 mg/dL Invalid Interpretation Code 82 - 115 mg/dL AH ADM SS Magnesium [Mass/Vol] 1.9 mg/dL Invalid Interpretation Code 1.6 - 2.4 mg/dL AH ADM SS Potassium [Moles/Vol] 3.6 mmol/L Invalid Interpretation Code 3.5 - 5.0 mEq/L AH ADM SS Comment on above: Result Comment: Spec imen slightly hemolyzed. Sodium [Moles/Vol] 135 mmol/L Invalid Interpretation Code 136 - 145 mEq/L AH ADM SS Urea nitrogen [Mass/Vol] 32.0 mg/dL Invalid Interpretation Code 8.0 - 22.0 mg/dL ADM SS Urea nitrogen/Creatinine [Mass ratio] 12.5 ratio Invalid Interpretation Code 10.0 - 22.0 ratio ADM SS LABORATORYOrdered By: SYSTEM SYSTEM on 03-26-2022 Basophils (Bld) [#/Vol] 0.0 103/mcL Invalid Interpretation Code 0.0 - 0.3 10^3/mcL Workflow SS Basophils/100 WBC (Bld) 0.8 % Invalid Interpretation Code 0.0 - 2.5 % Workflow SS Calcium [Mass/Vol] 9.2 mg/dL Invalid Interpretation Code 8.7 - 10.4 mg/dL ADM SS Chloride [Moles/Vol] 102 mmol/L Invalid Interpretation Code 98 - 110 mEq/L ADM SS CO2 [Moles/Vol] 27 mmol/L Invalid Interpretation Code 22 - 32 mEq/L ADM SS Creatinine [Mass/Vol] 2.94 mg/dL Invalid Interpretation Code 0.50 - 1.20 mg/dL ADM SS Electrolyte Balance 10.0 mEq/L Invalid Interpretation Code 4.0 - 15.0 mEq/L ADM SS Eosinophils (Bld) [#/Vol] 0.3 103/mcL Invalid Interpretation Code 0.0 - 0.7 10^3/mcL Workflow SS Eosinophils/100 WBC (Bld) 5.2 % Invalid Interpretation Code 0.0 - 6.0 % Workflow SS Erythrocyte distribution width (RBC) [Ratio] 14.3 % Invalid Interpretation Code 11.5 - 15.5 % Workflow SS GFR/1.73 sq M.predicted among blacks MDRD (S/P/Bld) [Vol rate/Area] 19 ml/min/1.73sqm Invalid Interpretation Code Chemistry S GFR/1.73 sq M.predicted among non-blacks MDRD (S/P/Bld) [Vol rate/Area] 16 ml/min/1.73sqm Invalid Interpretation Code Chemistry S Glucose [Mass/Vol] 86 mg/dL Invalid Interpretation Code 82 - 115 mg/dL ADM SS Hematocrit (Bld) [Volume fraction] 23.8 % Invalid Interpretation Code 34.0 - 46.0 % Workflow SS Hemoglobin (Bld) [Mass/Vol] 8.2 G/dL Invalid Interpretation Code 12.0 - 16.0 G/dL AH Workflow SS Lymphocytes (Bld) [#/Vol] 1.7 103/mcL Invalid Interpretation Code 0.9 - 4.3 10^3/mcL AH Workflow SS Lymphocytes/100 WBC (Bld) 29.9 % Invalid Interpretation Code 20.0 - 40.0 % AH Workflow SS MCH (RBC) [Entitic mass] 31.8 pg Invalid Interpretation Code 27.0 - 33.0 pg AH Workflow SS MCHC 34.3 G/dL Invalid Interpretation Code 32.0 - 36.0 G/dL AH Workflow SS MCV (RBC) [Entitic vol] 92.5 fL Invalid Interpretation Code 80.0 - 99.0 fL AH Workflow SS Monocyte distribution width Auto (Bld) [Entitic vol] Not Performed 1 *NA* (03/26/22 6:52 AM) Invalid Interpretation Code 0.00 - 20.00 Hematology S Comment on above: Result Comment: MDW testing performed only on adult ER patients between the ages of 18-89 years. Monocytes (Bld) [#/Vol] 0.6 103/mcL Invalid Interpretation Code 0.1 - 1.4 10^3/mcL AH Workflow SS Monocytes/100 WBC (Bld) 10.9 % Invalid Interpretation Code 2.0 - 13.0 % AH Workflow SS Neutrophils (Bld) [#/Vol] 3.1 103/mcL Invalid Interpretation Code 2.3 - 8.1 10^3/mcL AH Workflow SS Neutrophils/100 WBC (Bld) 53.2 % Invalid Interpretation Code 50.0 - 75.0 % AH Workflow SS Platelet mean volume (Bld) [Entitic vol] 7.0 fL Invalid Interpretation Code 6.6 - 10.5 fL AH Workflow SS Platelets (Bld) [#/Vol] 155 103/mcL Invalid Interpretation Code 150 - 450 10^3/mcL AH Workflow SS Platelets LM Ql (Bld) Normal *NA* (03/26/22 6:52 AM) Invalid Interpretation Code AH Workflow SS Polychromasia LM Ql (Bld) 1+ *NA* (03/26/22 6:52 AM) Invalid Interpretation Code AH Workflow SS Potassium [Moles/Vol] 3.4 mmol/L Invalid Interpretation Code 3.5 - 5.0 mEq/L AH ADM SS RBC (Bld) [#/Vol] 2.57 106/mcL Invalid Interpretation Code 4.10 - 5.30 10^6/mcL AH Workflow SS Sodium [Moles/Vol] 139 mmol/L Invalid Interpretation Code 136 - 145 mEq/L AH ADM SS Urea nitrogen [Mass/Vol] 37.0 mg/dL Invalid Interpretation Code 8.0 - 22.0 mg/dL AH ADM SS Urea nitrogen/Creatinine [Mass ratio] 12.6 ratio Invalid Interpretation Code 10.0 - 22.0 ratio AH ADM SS Vancomycin [Mass/Vol] 15.2 mcg/mL Invalid Interpretation Code AH ADM SS WBC 5.8 103/mcL Invalid Interpretation Code 4.5 - 10.8 10^3/mcL Workflow SS LABORATORYOrdered By: So raman on 03-26-2022 LDose Vancomycin: (random) See eMAR (03/26/22 6:52 AM) Invalid Interpretation Code AH Chemistry S LABORATORYOrdered By: Kiara Bailey on 03-25-2022 Appearance (U) Clear (03/25/22 9:56 AM) Invalid Interpretation Code Clear AH Auto Urine SS Bilirubin Ql (U) Negative (03/25/22 9:56 AM) Invalid Interpretation Code Neg-Trace AH Auto Urine SS Color (U) Yellow (03/25/22 9:56 AM) Invalid Interpretation Code AH Auto Urine SS Glucose Test strip (U) [Mass/Vol] Negative Invalid Interpretation Code Negativemg/d L AH Auto Urine SS Hemoglobin Auto test strip (U) [Mass/Vol] Negative (03/25/22 9:56 AM) Invalid Interpretation Code Neg-Trace AH Auto Urine SS Ketones Ql (U) Negative Invalid Interpretation Code Neg-Tracemg/ dL AH Auto Urine SS UA Leuk Est Negative (03/25/22 9:56 AM) Invalid Interpretation Code Negative AH Auto Urine SS UA Nitrite Negative (03/25/22 9:56 AM) Invalid Interpretation Code Negative AH Auto Urine SS UA pH 7.0 (03/25/22 9:56 AM) Invalid Interpretation Code 5.0 - 8.0 AH Auto Urine SS UA Protein 30 mg/dL Invalid Interpretation Code Negativemg/d L AH Auto Urine SS UA Spec Grav 1.010 (03/25/22 9:56 AM) Invalid Interpretation Code 1.006-1.029 AH Auto Urine SS UA Specimen Type Clean Catch (03/25/22 9:56 AM) Invalid Interpretation Code AH Auto Urine SS UA Urobilinogen 1.0 E.U./dL Invalid Interpretation Code 0.2-1.0E.U./ dL Auto Urine SS LABORATORYOrdered By: SYSTEM SYSTEM on 03-25-2022 Troponin I.cardiac DL <= 0.01 ng/mL [Mass/Vol] 31.41 ng/L Invalid Interpretation Code 0.00 - 34.00 ng/L ADM SS Albumin BCP dye [Mass/Vol] 2.5 G/dL Invalid Interpretation Code 3.2 - 4.8 G/dL ADM SS Albumin/Globulin [Mass ratio] 0.9 {ratio} Invalid Interpretation Code 0.9 - 1.6 ratio ADM SS ALP [Catalytic activity/Vol] 62 U/L Invalid Interpretation Code 38 - 126 U/L ADM SS ALT No additional P-5'-P [Catalytic activity/Vol] 27 U/L Invalid Interpretation Code 10 - 49 U/L ADM SS AST [Catalytic activity/Vol] 49 U/L Invalid Interpretation Code 8 - 34 U/L ADM SS Band form neutrophils/100 WBC (Bld) 1.0 % Invalid Interpretation Code 0.0 - 5.0 % Workflow SS Basophils/100 WBC (Bld) 1.0 % Invalid Interpretation Code 0.0 - 2.5 % Workflow SS Basophils/100 WBC (Bld) 0.0 % Invalid Interpretation Code 0.0 - 2.5 % Workflow SS Bilirubin [Mass/Vol] 0.30 mg/dL Invalid Interpretation Code 0.20 - 1.20 mg/dL ADM SS Calcium [Mass/Vol] 8.7 mg/dL Invalid Interpretation Code 8.7 - 10.4 mg/dL ADM SS Chloride [Moles/Vol] 104 mmol/L Invalid Interpretation Code 98 - 110 mEq/L ADM SS CO2 [Moles/Vol] 29 mmol/L Invalid Interpretation Code 22 - 32 mEq/L ADM SS Creatinine [Mass/Vol] 3.03 mg/dL Invalid Interpretation Code 0.50 - 1.20 mg/dL ADM SS Electrolyte Balance 9.0 mEq/L Invalid Interpretation Code 4.0 - 15.0 mEq/L ADM SS Eosinophils/100 WBC (Bld) 0.4 % Invalid Interpretation Code 0.0 - 6.0 % Workflow SS Eosinophils/100 WBC (Bld) 0.0 % Invalid Interpretation Code 0.0 - 6.0 % Workflow SS Erythrocyte distribution width (RBC) [Ratio] 14.6 % Invalid Interpretation Code 11.5 - 15.5 % Workflow SS GFR/1.73 sq M.predicted among blacks MDRD (S/P/Bld) [Vol rate/Area] 19 ml/min/1.73sqm Invalid Interpretation Code Chemistry S GFR/1.73 sq M.predicted among non-blacks MDRD (S/P/Bld) [Vol rate/Area] 15 ml/min/1.73sqm Invalid Interpretation Code Chemistry S Globulin 2.9 G/dL Invalid Interpretation Code 1.5 - 3.8 G/dL ADM SS Glucose [Mass/Vol] 100 mg/dL Invalid Interpretation Code 82 - 115 mg/dL ADM SS Hematocrit (Bld) [Volume fraction] 21.3 % Invalid Interpretation Code 34.0 - 46.0 % Workflow SS Hemoglobin (Bld) [Mass/Vol] 7.3 G/dL Invalid Interpretation Code 12.0 - 16.0 G/dL Workflow SS Magnesium [Mass/Vol] 1.8 mg/dL Invalid Interpretation Code 1.6 - 2.4 mg/dL ADM SS MCH (RBC) [Entitic mass] 32.1 pg Invalid Interpretation Code 27.0 - 33.0 pg Workflow SS MCHC 34.5 G/dL Invalid Interpretation Code 32.0 - 36.0 G/dL Workflow SS MCV (RBC) [Entitic vol] 93.0 fL Invalid Interpretation Code 80.0 - 99.0 fL Workflow SS Monocyte distribution width Auto (Bld) [Entitic vol] Not Performed 2 *NA* (03/25/22 2:43 AM) Invalid Interpretation Code 0.00 - 20.00 Hematology S Comment on above: Result Comment: MDW testing performed only on adult ER patients between the ages of 18-89 years. Monocytes (Bld) [#/Vol] 0.5 103/mcL Invalid Interpretation Code 0.1 - 1.4 10^3/mcL Workflow SS Monocytes (Bld) [#/Vol] 0.3 103/mcL Invalid Interpretation Code 0.1 - 1.4 10^3/mcL Workflow SS Monocytes/100 WBC (Bld) 10.0 % Invalid Interpretation Code 2.0 - 13.0 % Workflow SS Monocytes/100 WBC (Bld) 7.0 % Invalid Interpretation Code 2.0 - 13.0 % AH Workflow SS Neutrophils (Bld) [#/Vol] 3.2 103/mcL Invalid Interpretation Code 2.3 - 8.1 10^3/mcL AH Workflow SS Neutrophils (Bld) [#/Vol] 3.3 103/mcL Invalid Interpretation Code 2.3 - 8.1 10^3/mcL AH Workflow SS Neutrophils/100 WBC (Bld) 64.6 % Invalid Interpretation Code 50.0 - 75.0 % AH Workflow SS Neutrophils/100 WBC (Bld) 68.0 % Invalid Interpretation Code 50.0 - 75.0 % AH Workflow SS Nucleated RBC 0.0 /100 WBC Invalid Interpretation Code Workflow SS Phosphate [Mass/Vol] 2.8 mg/dL Invalid Interpretation Code 2.4 - 5.1 mg/dL ADM SS Platelet mean volume (Bld) [Entitic vol] 6.6 fL Invalid Interpretation Code 6.6 - 10.5 fL Workflow SS Platelets (Bld) [#/Vol] 135 103/mcL Invalid Interpretation Code 150 - 450 10^3/mcL Workflow SS Platelets LM Ql (Bld) Slt Decreased *NA* (03/25/22 2:43 AM) Invalid Interpretation Code Workflow SS Potassium [Moles/Vol] 3.3 mmol/L Invalid Interpretation Code 3.5 - 5.0 mEq/L ADM SS Comment on above: Result Comment: Spec imen slightly hemolyzed. Protein [Mass/Vol] 5.4 G/dL Invalid Interpretation Code 5.7 - 8.2 G/dL ADM SS RBC (Bld) [#/Vol] 2.29 106/mcL Invalid Interpretation Code 4.10 - 5.30 10^6/mcL Workflow SS RBC morphology finding Nom (Bld) See Below 4 *NA* (03/25/22 2:43 AM) Invalid Interpretation Code Workflow SS Comment on above: Result Comment: RBC Morphology appears Normal Sodium [Moles/Vol] 142 mmol/L Invalid Interpretation Code 136 - 145 mEq/L ADM SS Troponin I.cardiac DL <= 0.01 ng/mL [Mass/Vol] 37.18 ng/L Invalid Interpretation Code 0.00 - 34.00 ng/L ADM SS Urea nitrogen [Mass/Vol] 35.0 mg/dL Invalid Interpretation Code 8.0 - 22.0 mg/dL AH ADM SS Urea nitrogen/Creatinine [Mass ratio] 11.6 ratio Invalid Interpretation Code 10.0 - 22.0 ratio AH ADM SS WBC 4.9 103/mcL Invalid Interpretation Code 4.5 - 10.8 10^3/mcL AH Workflow SS Laboratory - Hematology and Cell countsOrdered By: SYSTEM SYSTEM on 03-25-2022 Basophils (Bld) [#/Vol] 0.0 103/mcL Invalid Interpretation Code 0.0 - 0.3 10^3/mcL AH Workflow SS Eosinophils (Bld) [#/Vol] 0.0 103/mcL Invalid Interpretation Code 0.0 - 0.7 10^3/mcL AH Workflow SS Lymphocytes (Bld) [#/Vol] 1.2 103/mcL Invalid Interpretation Code 0.9 - 4.3 10^3/mcL AH Workflow SS Lymphocytes/100 WBC (Bld) 24.0 % Invalid Interpretation Code 20.0 - 40.0 % Workflow SS No Panel InformationOrdered By: Luis Miguel Mcconnell on 03-25-2022 Cath Tip Culture No growth at 48 hours. [facility] LABORATORYOrdered By: SYSTEM SYSTEM on 03-24-2022 Albumin BCP dye [Mass/Vol] 3.0 G/dL Invalid Interpretation Code 3.2 - 4.8 G/dL ADM SS Albumin/Globulin [Mass ratio] 0.9 {ratio} Invalid Interpretation Code 0.9 - 1.6 ratio ADM SS ALP [Catalytic activity/Vol] 76 U/L Invalid Interpretation Code 38 - 126 U/L ADM SS ALT No additional P-5'-P [Catalytic activity/Vol] 31 U/L Invalid Interpretation Code 10 - 49 U/L ADM SS AST [Catalytic activity/Vol] 56 U/L Invalid Interpretation Code 8 - 34 U/L ADM SS Basophils (Bld) [#/Vol] 0.0 103/mcL Invalid Interpretation Code 0.0 - 0.3 10^3/mcL Workflow SS Basophils/100 WBC (Bld) 0.7 % Invalid Interpretation Code 0.0 - 2.5 % Workflow SS Bilirubin [Mass/Vol] 0.40 mg/dL Invalid Interpretation Code 0.20 - 1.20 mg/dL ADM SS CK [Catalytic activity/Vol] 192 U/L Invalid Interpretation Code 7 - 185 U/L ADM SS Eosinophils (Bld) [#/Vol] 0.0 103/mcL Invalid Interpretation Code 0.0 - 0.7 10^3/mcL AH Workflow SS Eosinophils/100 WBC (Bld) 0.3 % Invalid Interpretation Code 0.0 - 6.0 % AH Workflow SS Erythrocyte distribution width (RBC) [Ratio] 14.3 % Invalid Interpretation Code 11.5 - 15.5 % AH Workflow SS Globulin 3.3 G/dL Invalid Interpretation Code 1.5 - 3.8 G/dL ADM SS Hematocrit (Bld) [Volume fraction] 25.1 % Invalid Interpretation Code 34.0 - 46.0 % AH Workflow SS Hemoglobin (Bld) [Mass/Vol] 8.5 G/dL Invalid Interpretation Code 12.0 - 16.0 G/dL AH Workflow SS Lymphocytes (Bld) [#/Vol] 1.0 103/mcL Invalid Interpretation Code 0.9 - 4.3 10^3/mcL AH Workflow SS Lymphocytes/100 WBC (Bld) 18.3 % Invalid Interpretation Code 20.0 - 40.0 % AH Workflow SS Magnesium [Mass/Vol] 2.0 mg/dL Invalid Interpretation Code 1.6 - 2.4 mg/dL ADM SS MCH (RBC) [Entitic mass] 31.5 pg Invalid Interpretation Code 27.0 - 33.0 pg AH Workflow SS MCHC 34.0 G/dL Invalid Interpretation Code 32.0 - 36.0 G/dL Workflow SS MCV (RBC) [Entitic vol] 92.6 fL Invalid Interpretation Code 80.0 - 99.0 fL Workflow SS Monocyte distribution width Auto (Bld) [Entitic vol] Not Performed 3 *NA* (03/24/22 11:36 PM) Invalid Interpretation Code 0.00 - 20.00 Hematology S Comment on above: Result Comment: MDW testing performed only on adult ER patients between the ages of 18-89 years. Monocytes (Bld) [#/Vol] 0.5 103/mcL Invalid Interpretation Code 0.1 - 1.4 10^3/mcL Workflow SS Monocytes/100 WBC (Bld) 8.5 % Invalid Interpretation Code 2.0 - 13.0 % AH Workflow SS Neutrophils (Bld) [#/Vol] 3.8 103/mcL Invalid Interpretation Code 2.3 - 8.1 10^3/mcL AH Workflow SS Neutrophils/100 WBC (Bld) 72.2 % Invalid Interpretation Code 50.0 - 75.0 % Workflow SS Phosphate [Mass/Vol] 2.1 mg/dL Invalid Interpretation Code 2.4 - 5.1 mg/dL AH ADM SS Platelet mean volume (Bld) [Entitic vol] 6.6 fL Invalid Interpretation Code 6.6 - 10.5 fL Workflow SS Platelets (Bld) [#/Vol] 153 103/mcL Invalid Interpretation Code 150 - 450 10^3/mcL Workflow SS Protein [Mass/Vol] 6.3 G/dL Invalid Interpretation Code 5.7 - 8.2 G/dL ADM SS RBC (Bld) [#/Vol] 2.71 106/mcL Invalid Interpretation Code 4.10 - 5.30 10^6/mcL Workflow SS Troponin I.cardiac DL <= 0.01 ng/mL [Mass/Vol] 35.34 ng/L Invalid Interpretation Code 0.00 - 34.00 ng/L ADM SS WBC 5.3 103/mcL Invalid Interpretation Code 4.5 - 10.8 10^3/mcL Workflow SS LABORATORYOrdered By: Marko coleman on 03-24-2022 CK.MB [Mass/Vol] 0.18 ng/mL Invalid Interpretation Code 0.00 - 5.00 ng/mL ADM SS Free T4 index Calc [Mass/Vol] 0.1 1 Invalid Interpretation Code 0.0 - 4.5 % Chemistry S Lactate [Moles/Vol] 1.4 mmol/L Invalid Interpretation Code 0.2 - 2.0 mmol/L Auto Chem SS LABORATORYOrdered By: Mario Alberto River on 03-24-2022 Appearance (U) Clear (03/24/22 10:54 PM) Invalid Interpretation Code Clear Auto Urine SS Bilirubin Ql (U) Negative (03/24/22 10:54 PM) Invalid Interpretation Code Neg-Trace AH Auto Urine SS Color (U) Yellow (03/24/22 10:54 PM) Invalid Interpretation Code AH Auto Urine SS Glucose Test strip (U) [Mass/Vol] Negative Invalid Interpretation Code Negativemg/d L AH Auto Urine SS Hemoglobin Auto test strip (U) [Mass/Vol] Negative (03/24/22 10:54 PM) Invalid Interpretation Code Neg-Trace AH Auto Urine SS Ketones Ql (U) Negative Invalid Interpretation Code Neg-Tracemg/ dL AH Auto Urine SS UA Leuk Est Trace *NA* (8/2/22 10:54 PM) Invalid Interpretation Code Negative AH Auto Urine SS UA Nitrite Negative (03/24/22 10:54 PM) Invalid Interpretation Code Negative AH Auto Urine SS UA pH 8.0 (03/24/22 10:54 PM) Invalid Interpretation Code 5.0 - 8.0 AH Auto Urine SS UA Protein 30 mg/dL Invalid Interpretation Code Negativemg/d L AH Auto Urine SS UA Spec Grav 1.015 (03/24/22 10:54 PM) Invalid Interpretation Code 1.006-1.029 Auto Urine SS UA Specimen Type Clean Catch (03/24/22 10:54 PM) Invalid Interpretation Code AH Auto Urine SS UA Urobilinogen 1.0 E.U./dL Invalid Interpretation Code 0.2-1.0E.U./ dL AH Auto Urine SS No Panel Informationon 03-24 Microscopic examination of blood, culture Culture has been received in lab and is no growth to date. Routine cultures are held for 5 days. [facility] Work Phone: Culture Urine No growth at 48 hours. [facility] Work Phone: LABORATORYOrdered By: SYSTEM SYSTEM on 02-02-2022 Basophils (Bld) [#/Vol] 0.1 103/mcL Invalid Interpretation Code 0.0 - 0.3 10^3/mcL Workflow SS Basophils/100 WBC (Bld) 0.7 % Invalid Interpretation Code 0.0 - 2.5 % Workflow SS Calcium [Mass/Vol] 9.3 mg/dL Invalid Interpretation Code 8.7 - 10.4 mg/dL ADM SS Chloride [Moles/Vol] 107 mmol/L Invalid Interpretation Code 98 - 110 mEq/L ADM SS CO2 [Moles/Vol] 29 mmol/L Invalid Interpretation Code 22 - 32 mEq/L AH ADM SS Creatinine [Mass/Vol] 2.65 mg/dL Invalid Interpretation Code 0.50 - 1.20 mg/dL AH ADM SS Electrolyte Balance 6.0 mEq/L Invalid Interpretation Code 4.0 - 15.0 mEq/L AH ADM SS Eosinophil, Absolute 0.2 103/mcL Invalid Interpretation Code 0.0 - 0.7 10^3/mcL AH Workflow SS Eosinophils/100 WBC (Bld) 1.8 % Invalid Interpretation Code 0.0 - 6.0 % AH Workflow SS Erythrocyte distribution width (RBC) [Ratio] 15.3 % Invalid Interpretation Code 11.5 - 15.5 % AH Workflow SS GFR/1.73 sq M.predicted among blacks MDRD (S/P/Bld) [Vol rate/Area] 22 ml/min/1.73sqm Invalid Interpretation Code AH ADM SS GFR/1.73 sq M.predicted among non-blacks MDRD (S/P/Bld) [Vol rate/Area] 18 ml/min/1.73sqm Invalid Interpretation Code AH ADM SS Glucose [Mass/Vol] 82 mg/dL Invalid Interpretation Code 82 - 115 mg/dL ADM SS Hematocrit (Bld) [Volume fraction] 25.6 % Invalid Interpretation Code 34.0 - 46.0 % AH Workflow SS Hgb 9.0 G/dL Invalid Interpretation Code 12.0 - 16.0 G/dL AH Workflow SS Lymphocyte, Absolute 1.9 103/mcL Invalid Interpretation Code 0.9 - 4.3 10^3/mcL AH Workflow SS Lymphocytes/100 WBC (Bld) 21.2 % Invalid Interpretation Code 20.0 - 40.0 % AH Workflow SS Magnesium [Mass/Vol] 1.7 mg/dL Invalid Interpretation Code 1.6 - 2.4 mg/dL ADM SS MCH (RBC) [Entitic mass] 32.2 pg Invalid Interpretation Code 27.0 - 33.0 pg AH Workflow SS MCHC 35.0 G/dL Invalid Interpretation Code 32.0 - 36.0 G/dL AH Workflow SS MCV (RBC) [Entitic vol] 91.9 fL Invalid Interpretation Code 80.0 - 99.0 fL Workflow SS Monocyte distribution width Auto (Bld) [Entitic vol] Not Performed 2 *NA* (02/02/22 7:03 AM) Invalid Interpretation Code 0.00 - 20.00 Hematology S Comment on above: Result Comment: MDW testing performed only on adult ER patients between the ages of 18-89 years. Monocyte, Absolute 0.5 103/mcL Invalid Interpretation Code 0.1 - 1.4 10^3/mcL AH Workflow SS Monocytes/100 WBC (Bld) 5.0 % Invalid Interpretation Code 2.0 - 13.0 % AH Workflow SS Neutrophil, Absolute 6.5 103/mcL Invalid Interpretation Code 2.3 - 8.1 10^3/mcL AH Workflow SS Neutrophils/100 WBC (Bld) 71.3 % Invalid Interpretation Code 50.0 - 75.0 % AH Workflow SS Platelet 197 103/mcL Invalid Interpretation Code 150 - 450 10^3/mcL AH Workflow SS Platelet Estimate Normal *NA* (02/02/22 7:03 AM) Invalid Interpretation Code AH Workflow SS Platelet mean volume (Bld) [Entitic vol] 7.5 fL Invalid Interpretation Code 6.6 - 10.5 fL AH Workflow SS Polychrom 1+ *NA* (02/02/22 7:03 AM) Invalid Interpretation Code AH Workflow SS Potassium [Moles/Vol] 3.8 mmol/L Invalid Interpretation Code 3.5 - 5.0 mEq/L AH ADM SS RBC 2.79 106/mcL Invalid Interpretation Code 4.10 - 5.30 10^6/mcL AH Workflow SS Sodium [Moles/Vol] 142 mmol/L Invalid Interpretation Code 136 - 145 mEq/L ADM SS Urea nitrogen [Mass/Vol] 26.0 mg/dL Invalid Interpretation Code 8.0 - 22.0 mg/dL ADM SS Urea nitrogen/Creatinine [Mass ratio] 9.8 ratio Invalid Interpretation Code 10.0 - 22.0 ratio AH ADM SS WBC 9.1 103/mcL Invalid Interpretation Code 4.5 - 10.8 10^3/mcL AH Workflow SS LABORATORYOrdered By: SYSTEM SYSTEM on 02-01-2022 Potassium [Moles/Vol] 4.1 mmol/L Invalid Interpretation Code 3.5 - 5.0 mEq/L ADM SS Comment on above: Result Comment: Spec imen slightly hemolyzed. Bands 2.0 1 Invalid Interpretation Code 0.0 - 5.0 % AH Workflow SS Basophil %, Manual 2.0 1 Invalid Interpretation Code 0.0 - 2.5 % AH Workflow SS Basophil, Abs Manual 0.2 103/mcL Invalid Interpretation Code 0.0 - 0.3 10^3/mcL AH Workflow SS Calcium [Mass/Vol] 8.9 mg/dL Invalid Interpretation Code 8.7 - 10.4 mg/dL AH ADM SS Chloride [Moles/Vol] 109 mmol/L Invalid Interpretation Code 98 - 110 mEq/L ADM SS CO2 [Moles/Vol] 23 mmol/L Invalid Interpretation Code 22 - 32 mEq/L ADM SS Creatinine [Mass/Vol] 2.86 mg/dL Invalid Interpretation Code 0.50 - 1.20 mg/dL ADM SS Electrolyte Balance 7.0 mEq/L Invalid Interpretation Code 4.0 - 15.0 mEq/L ADM SS Eosinophil %, Manual 3.0 1 Invalid Interpretation Code 0.0 - 6.0 % AH Workflow SS Eosinophil, Abs Manual 0.4 103/mcL Invalid Interpretation Code 0.0 - 0.7 10^3/mcL AH Workflow SS Erythrocyte distribution width (RBC) [Ratio] 15.4 % Invalid Interpretation Code 11.5 - 15.5 % AH Workflow SS GFR/1.73 sq M.predicted among blacks MDRD (S/P/Bld) [Vol rate/Area] 20 ml/min/1.73sqm Invalid Interpretation Code ADM SS GFR/1.73 sq M.predicted among non-blacks MDRD (S/P/Bld) [Vol rate/Area] 16 ml/min/1.73sqm Invalid Interpretation Code ADM SS Glucose [Mass/Vol] 88 mg/dL Invalid Interpretation Code 82 - 115 mg/dL ADM SS Hematocrit (Bld) [Volume fraction] 25.3 % Invalid Interpretation Code 34.0 - 46.0 % AH Workflow SS Hgb 8.6 G/dL Invalid Interpretation Code 12.0 - 16.0 G/dL AH Workflow SS Lymphocyte %, Manual 15.0 1 Invalid Interpretation Code 20.0 - 40.0 % AH Workflow SS Lymphocyte, Abs Manual 1.8 103/mcL Invalid Interpretation Code 0.9 - 4.3 10^3/mcL AH Workflow SS MCH (RBC) [Entitic mass] 31.0 pg Invalid Interpretation Code 27.0 - 33.0 pg AH Workflow SS MCHC 34.0 G/dL Invalid Interpretation Code 32.0 - 36.0 G/dL AH Workflow SS MCV (RBC) [Entitic vol] 91.3 fL Invalid Interpretation Code 80.0 - 99.0 fL AH Workflow SS Monocyte %, Manual 3.0 1 Invalid Interpretation Code 2.0 - 13.0 % AH Workflow SS Monocyte distribution width Auto (Bld) [Entitic vol] Not Performed 3 *NA* (02/01/22 4:08 AM) Invalid Interpretation Code 0.00 - 20.00 Hematology S Comment on above: Result Comment: MDW testing performed only on adult ER patients between the ages of 18-89 years. Monocyte, Abs Manual 0.4 103/mcL Invalid Interpretation Code 0.1 - 1.4 10^3/mcL AH Workflow SS Neutrophil %, Manual 75.0 1 Invalid Interpretation Code 50.0 - 75.0 % AH Workflow SS Neutrophil, Abs Manual 8.8 103/mcL Invalid Interpretation Code 2.3 - 8.1 10^3/mcL AH Workflow SS Nucleated RBC 0.0 /100 WBC Invalid Interpretation Code AH Workflow SS Platelet 182 103/mcL Invalid Interpretation Code 150 - 450 10^3/mcL AH Workflow SS Platelet Estimate Normal *NA* (02/01/22 4:08 AM) Invalid Interpretation Code AH Workflow SS Platelet mean volume (Bld) [Entitic vol] 7.6 fL Invalid Interpretation Code 6.6 - 10.5 fL AH Workflow SS Polychrom 1+ *NA* (02/01/22 4:08 AM) Invalid Interpretation Code AH Workflow SS Potassium [Moles/Vol] 3.1 mmol/L Invalid Interpretation Code 3.5 - 5.0 mEq/L ADM SS RBC 2.78 106/mcL Invalid Interpretation Code 4.10 - 5.30 10^6/mcL AH Workflow SS Sodium [Moles/Vol] 139 mmol/L Invalid Interpretation Code 136 - 145 mEq/L ADM SS Urea nitrogen [Mass/Vol] 21.0 mg/dL Invalid Interpretation Code 8.0 - 22.0 mg/dL AH ADM SS Urea nitrogen/Creatinine [Mass ratio] 7.3 ratio Invalid Interpretation Code 10.0 - 22.0 ratio AH ADM SS WBC 11.8 103/mcL Invalid Interpretation Code 4.5 - 10.8 10^3/mcL AH Workflow SS LABORATORYOrdered By: SYSTEM SYSTEM on 01-31-2022 Hematocrit (Bld) [Volume fraction] 30.3 % Invalid Interpretation Code 34.0 - 46.0 % AH Workflow SS Hgb 10.4 G/dL Invalid Interpretation Code 12.0 - 16.0 G/dL AH Workflow SS Basophils (Bld) [#/Vol] 0.1 103/mcL Invalid Interpretation Code 0.0 - 0.3 10^3/mcL AH Workflow SS Basophils/100 WBC (Bld) 0.4 % Invalid Interpretation Code 0.0 - 2.5 % AH Workflow SS Eosinophil, Absolute 0.5 103/mcL Invalid Interpretation Code 0.0 - 0.7 10^3/mcL AH Workflow SS Eosinophils/100 WBC (Bld) 3.1 % Invalid Interpretation Code 0.0 - 6.0 % AH Workflow SS Erythrocyte distribution width (RBC) [Ratio] 16.2 % Invalid Interpretation Code 11.5 - 15.5 % AH Workflow SS Lymphocyte, Absolute 1.8 103/mcL Invalid Interpretation Code 0.9 - 4.3 10^3/mcL AH Workflow SS Lymphocytes/100 WBC (Bld) 12.7 % Invalid Interpretation Code 20.0 - 40.0 % AH Workflow SS MCH (RBC) [Entitic mass] 32.4 pg Invalid Interpretation Code 27.0 - 33.0 pg AH Workflow SS MCHC 33.1 G/dL Invalid Interpretation Code 32.0 - 36.0 G/dL AH Workflow SS MCV (RBC) [Entitic vol] 98.0 fL Invalid Interpretation Code 80.0 - 99.0 fL Workflow SS Monocyte distribution width Auto (Bld) [Entitic vol] Not Performed 4 *NA* (01/31/22 7:23 AM) Invalid Interpretation Code 0.00 - 20.00 Hematology S Comment on above: Result Comment: MDW testing performed only on adult ER patients between the ages of 18-89 years. Monocyte, Absolute 0.7 103/mcL Invalid Interpretation Code 0.1 - 1.4 10^3/mcL Workflow SS Monocytes/100 WBC (Bld) 5.1 % Invalid Interpretation Code 2.0 - 13.0 % Workflow SS Neutrophil, Absolute 11.4 103/mcL Invalid Interpretation Code 2.3 - 8.1 10^3/mcL Workflow SS Neutrophils/100 WBC (Bld) 78.7 % Invalid Interpretation Code 50.0 - 75.0 % Workflow SS Platelet 172 103/mcL Invalid Interpretation Code 150 - 450 10^3/mcL Workflow SS Platelet mean volume (Bld) [Entitic vol] 7.4 fL Invalid Interpretation Code 6.6 - 10.5 fL AH Workflow SS RBC 2.17 106/mcL Invalid Interpretation Code 4.10 - 5.30 10^6/mcL AH Workflow SS WBC 14.5 103/mcL Invalid Interpretation Code 4.5 - 10.8 10^3/mcL AH Workflow SS Anisocytosis Ql (Bld) 1+ *NA* (01/31/22 4:32 AM) Invalid Interpretation Code Workflow SS Basophils (Bld) [#/Vol] 0.1 103/mcL Invalid Interpretation Code 0.0 - 0.3 10^3/mcL AH Workflow SS Basophils/100 WBC (Bld) 0.4 % Invalid Interpretation Code 0.0 - 2.5 % AH Workflow SS Calcium [Mass/Vol] 8.2 mg/dL Invalid Interpretation Code 8.7 - 10.4 mg/dL AH ADM SS Chloride [Moles/Vol] 108 mmol/L Invalid Interpretation Code 98 - 110 mEq/L AH ADM SS CO2 [Moles/Vol] 23 mmol/L Invalid Interpretation Code 22 - 32 mEq/L AH ADM SS Creatinine [Mass/Vol] 3.10 mg/dL Invalid Interpretation Code 0.50 - 1.20 mg/dL AH ADM SS Electrolyte Balance 5.0 mEq/L Invalid Interpretation Code 4.0 - 15.0 mEq/L AH ADM SS Eosinophil, Absolute 0.2 103/mcL Invalid Interpretation Code 0.0 - 0.7 10^3/mcL AH Workflow SS Eosinophils/100 WBC (Bld) 1.8 % Invalid Interpretation Code 0.0 - 6.0 % AH Workflow SS GFR/1.73 sq M.predicted among blacks MDRD (S/P/Bld) [Vol rate/Area] 18 ml/min/1.73sqm Invalid Interpretation Code AH ADM SS GFR/1.73 sq M.predicted among non-blacks MDRD (S/P/Bld) [Vol rate/Area] 15 ml/min/1.73sqm Invalid Interpretation Code AH ADM SS Glucose [Mass/Vol] 90 mg/dL Invalid Interpretation Code 82 - 115 mg/dL AH ADM SS Lymphocyte, Absolute 2.0 103/mcL Invalid Interpretation Code 0.9 - 4.3 10^3/mcL AH Workflow SS Lymphocytes/100 WBC (Bld) 15.4 % Invalid Interpretation Code 20.0 - 40.0 % AH Workflow SS Monocyte, Absolute 0.7 103/mcL Invalid Interpretation Code 0.1 - 1.4 10^3/mcL AH Workflow SS Monocytes/100 WBC (Bld) 5.6 % Invalid Interpretation Code 2.0 - 13.0 % AH Workflow SS Neutrophil, Absolute 10.2 103/mcL Invalid Interpretation Code 2.3 - 8.1 10^3/mcL AH Workflow SS Neutrophils/100 WBC (Bld) 76.8 % Invalid Interpretation Code 50.0 - 75.0 % AH Workflow SS Platelet Estimate Normal *NA* (01/31/22 4:32 AM) Invalid Interpretation Code AH Workflow SS Polychrom 1+ *NA* (01/31/22 4:32 AM) Invalid Interpretation Code AH Workflow SS Sodium [Moles/Vol] 136 mmol/L Invalid Interpretation Code 136 - 145 mEq/L AH ADM SS Urea nitrogen [Mass/Vol] 24.0 mg/dL Invalid Interpretation Code 8.0 - 22.0 mg/dL AH ADM SS Urea nitrogen/Creatinine [Mass ratio] 7.7 ratio Invalid Interpretation Code 10.0 - 22.0 ratio AH ADM SS LABORATORYOrdered By: SYSTEM SYSTEM on 01-30-2022 Toxic Gran 1+ *NA* (01/30/22 4:06 AM) Invalid Interpretation Code AH Workflow SS LABORATORYOrdered By: Navya Bell on 01-29-2022 aPTT Coag (PPP) [Time] 31.9 s Invalid Interpretation Code 25.0 - 35.0 seconds AH Auto Coag SS Fibrinogen Coag (PPP) [Mass/Vol] 548 mg/dL Invalid Interpretation Code 250 - 560 mg/dL AH Auto Coag SS Heparin dose (APTT) Unknown (01/29/22 8:20 PM) Invalid Interpretation Code AH Auto Coag SS INR Coag (PPP) [Relative time] 1.1 {INR} Invalid Interpretation Code AH Auto Coag SS PT Coag (PPP) [Time] 12.7 s Invalid Interpretation Code 9.0 - 14.9 seconds AH Auto Coag SS LABORATORYOrdered By: SYSTEM SYSTEM on 01-29-2022 Anisocytosis Ql (Bld) 1+ *NA* (01/29/22 7:59 PM) Invalid Interpretation Code AH Workflow SS Bands 5.0 1 Invalid Interpretation Code 0.0 - 5.0 % AH Workflow SS Basophil %, Manual 0.0 1 Invalid Interpretation Code 0.0 - 2.5 % AH Workflow SS Basophil, Abs Manual 0.0 103/mcL Invalid Interpretation Code 0.0 - 0.3 10^3/mcL AH Workflow SS Eosinophil %, Manual 1.0 1 Invalid Interpretation Code 0.0 - 6.0 % AH Workflow SS Eosinophil, Abs Manual 0.1 103/mcL Invalid Interpretation Code 0.0 - 0.7 10^3/mcL AH Workflow SS Lymphocyte %, Manual 18.0 1 Invalid Interpretation Code 20.0 - 40.0 % AH Workflow SS Lymphocyte, Abs Manual 1.8 103/mcL Invalid Interpretation Code 0.9 - 4.3 10^3/mcL AH Workflow SS Metamyelocytes/100 WBC (Bld) 2.0 % Invalid Interpretation Code AH Workflow SS Monocyte %, Manual 1.0 1 Invalid Interpretation Code 2.0 - 13.0 % AH Workflow SS Monocyte, Abs Manual 0.1 103/mcL Invalid Interpretation Code 0.1 - 1.4 10^3/mcL AH Workflow SS Neutrophil %, Manual 73.0 1 Invalid Interpretation Code 50.0 - 75.0 % AH Workflow SS Neutrophil, Abs Manual 7.3 103/mcL Invalid Interpretation Code 2.3 - 8.1 10^3/mcL AH Workflow SS Nucleated RBC 2.0 /100 WBC Invalid Interpretation Code AH Workflow SS Anisocytosis Ql (Bld) 1+ *NA* (01/29/22 4:28 AM) Invalid Interpretation Code AH Workflow SS Basophil %, Manual 0.0 1 Invalid Interpretation Code 0.0 - 2.5 % AH Workflow SS Basophil, Abs Manual 0.0 103/mcL Invalid Interpretation Code 0.0 - 0.3 10^3/mcL AH Workflow SS Eosinophil %, Manual 0.0 1 Invalid Interpretation Code 0.0 - 6.0 % AH Workflow SS Eosinophil, Abs Manual 0.0 103/mcL Invalid Interpretation Code 0.0 - 0.7 10^3/mcL AH Workflow SS Hypochrom 1+ *NA* (01/29/22 4:28 AM) Invalid Interpretation Code AH Workflow SS Lymphocyte %, Manual 13.0 1 Invalid Interpretation Code 20.0 - 40.0 % AH Workflow SS Lymphocyte, Abs Manual 1.3 103/mcL Invalid Interpretation Code 0.9 - 4.3 10^3/mcL AH Workflow SS Monocyte %, Manual 3.0 1 Invalid Interpretation Code 2.0 - 13.0 % AH Workflow SS Monocyte, Abs Manual 0.3 103/mcL Invalid Interpretation Code 0.1 - 1.4 10^3/mcL AH Workflow SS Neutrophil %, Manual 84.0 1 Invalid Interpretation Code 50.0 - 75.0 % AH Workflow SS Neutrophil, Abs Manual 8.4 103/mcL Invalid Interpretation Code 2.3 - 8.1 10^3/mcL AH Workflow SS Nucleated RBC 0.0 /100 WBC Invalid Interpretation Code AH Workflow SS LABORATORYOrdered By: Gaby Lai on 01-29-2022 RBC Product Ready RBC Ready for Pickup (01/29/22 6:43 PM) Invalid Interpretation Code BB Manual SS ABO and Rh group Nom (Bld) Blood group A Rh(D) positive Invalid Interpretation Code BB Auto SS Blood group antibody screen Ql NEG (01/29/22 9:54 AM) Invalid Interpretation Code BB Auto SS RBC Product Ready RBC Ready for Pickup (01/29/22 9:40 AM) Invalid Interpretation Code BB Manual SS No Panel Informationon 01-29 Culture Tissue Few Klebsiella oxyto ca Raoultella ornithinolytica No anaerobes isolated to date. [facility] Work Phone: GS 4+ Red Blood Cells 2+ White Blood Cells No organisms seen. [facility] Work Phone: Klebsiella oxytoca Raoultella ornithinolytica Klebsiella oxytoca Raoultella ornithinolytica [facility] Work Phone: LABORATORYOrdered By: SYSTEM SYSTEM on 01-28-2022 Magnesium [Mass/Vol] 1.7 mg/dL Invalid Interpretation Code 1.6 - 2.4 mg/dL ADM SS Metamyelocytes/100 WBC (Bld) 1.0 % Invalid Interpretation Code Workflow SS LABORATORYOrdered By: SYSTEM SYSTEM on 01-27-2022 Albumin BCP dye [Mass/Vol] 2.0 G/dL Invalid Interpretation Code 3.2 - 4.8 G/dL ADM SS Albumin/Globulin [Mass ratio] 0.7 {ratio} Invalid Interpretation Code 0.9 - 1.6 ratio ADM SS ALP [Catalytic activity/Vol] 68 U/L Invalid Interpretation Code 38 - 126 U/L ADM SS ALT No additional P-5'-P [Catalytic activity/Vol] 17 U/L Invalid Interpretation Code 10 - 49 U/L ADM SS AST [Catalytic activity/Vol] 28 U/L Invalid Interpretation Code 8 - 34 U/L ADM SS Bilirubin [Mass/Vol] 0.60 mg/dL Invalid Interpretation Code 0.20 - 1.20 mg/dL ADM SS Globulin 2.7 G/dL Invalid Interpretation Code 1.5 - 3.8 G/dL ADM SS Magnesium [Mass/Vol] 1.7 mg/dL Invalid Interpretation Code 1.6 - 2.4 mg/dL ADM SS Metamyelocytes/100 WBC (Bld) 1.0 % Invalid Interpretation Code Workflow SS Protein [Mass/Vol] 4.7 G/dL Invalid Interpretation Code 5.7 - 8.2 G/dL ADM SS LABORATORYOrdered By: Phylicia Bass on 01-26-2022 LDose Vancomycin:(trough) See eMAR (01/26/22 7:43 PM) Invalid Interpretation Code Chemistry S LABORATORYOrdered By: SYSTEM SYSTEM on 01-26-2022 Vancomycin trough [Mass/Vol] 7.7 ug/mL Invalid Interpretation Code 5.0 - 20.0 mcg/mL ADM SS Albumin BCP dye [Mass/Vol] 2.2 G/dL Invalid Interpretation Code 3.2 - 4.8 G/dL ADM SS Phosphate [Mass/Vol] 3.7 mg/dL Invalid Interpretation Code 2.4 - 5.1 mg/dL ADM SS LABORATORYOrdered By: Carin Roberts on 01-26-2022 C. difficile toxin B tcdB gene GAVINO+probe Ql (Stl) Negative 1 (01/26/22 4:59 PM) Invalid Interpretation Code Negative Auto Viro/Sero SS Comment on above: Result Comment: Note s [id number] Clostridium difficile PCR Int No tcdB gene DNA detected. Negative test results may occur from improper collection, handling or storage of specimen, technical error, or extremely low levels of target below the limit of detection of the assay. Invalid Interpretation Code Auto Viro/Sero SS LABORATORYOrdered By: Keya demarco on 01-25-2022 Glucose [Mass/Vol] 111 mg/dL Invalid Interpretation Code 82 - 115 mg/dL [facility] Work Phone: Glucose [Mass/Vol] 110 mg/dL Invalid Interpretation Code 82 - 115 mg/dL [facility] Work Phone: LABORATORYOrdered By: Olga Hu on 01-25-2022 Blood Glucose Testing Reason Routine (01/25/22 3:19 AM) [facility] Work Phone: Glucose [Mass/Vol] 84 mg/dL Invalid Interpretation Code 82 - 115 mg/dL [facility] Work Phone: LABORATORYOrdered By: SYSTEM SYSTEM on 01-25-2022 Albumin BCP dye [Mass/Vol] 2.5 G/dL Invalid Interpretation Code 3.2 - 4.8 G/dL ADM SS Iron [Mass/Vol] 162 ug/dL Invalid Interpretation Code 50 - 170 mcg/dL AH ADM SS Iron binding capacity [Mass/Vol] 199 mcg/dL Invalid Interpretation Code 250 - 500 mcg/dL AH ADM SS Iron saturation [Mass fraction] 81 1 Invalid Interpretation Code AH ADM SS Parathyrin.intact [Mass/Vol] 167.8 pg/mL Invalid Interpretation Code 18.5 - 88.0 pg/mL AH ADM SS Phosphate [Mass/Vol] 1.7 mg/dL Invalid Interpretation Code 2.4 - 5.1 mg/dL AH ADM SS Vancomycin trough [Mass/Vol] 11.0 ug/mL Invalid Interpretation Code 5.0 - 20.0 mcg/mL AH ADM SS LABORATORYOrdered By: SHAHZAD BELL CONTRIBUTOR_SYSTEM on 01-25-2022 Hep B Core Ab Negative Invalid Interpretation Code Negative AH Sendouts SS Comment on above: Result Comment: No e vidence of current or past infection with Hepatitis B virus. Should recent infection be suspected, repeat testing may be considered 3-4 weeks after this draw. Performed By: [facility] [address] [id number] Pharmacy Sales Representative: Luis Golden III, M.D. IA#: [id number] LABORATORYOrdered By: Marko coleman on 01-25-2022 LDose Vancomycin:(trough) Unknown (01/25/22 2:29 AM) Invalid Interpretation Code AH Chemistry S LABORATORYOrdered By: Fazal Mai on 01-24-2022 Blood Glucose Testing Reason Routine (01/24/22 11:29 PM) [facility] Work Phone: Blood Glucose Testing Reason Routine (01/24/22 7:27 PM) [facility] Work Phone: LABORATORYOrdered By: Bobo Porras on 01-24-2022 Lactate [Moles/Vol] 1.2 mmol/L Invalid Interpretation Code 0.2 - 2.0 mmol/L AH Auto Chem SS LABORATORYOrdered By: Gaby Lai on 01-24-2022 ABO and Rh group Nom (Bld) Blood group A Rh(D) positive Invalid Interpretation Code AH BB Auto SS Blood group antibody screen Ql NEG (01/24/22 12:09 PM) Invalid Interpretation Code BB Auto SS RBC Product Ready RBC Ready for Pickup (01/24/22 11:00 AM) Invalid Interpretation Code BB Manual SS LABORATORYOrdered By: Jayme Edwards on 01-24-2022 Lactate [Moles/Vol] 3.0 mmol/L Invalid Interpretation Code 0.2 - 2.0 mmol/L Auto Chem SS Lactate [Moles/Vol] 2.3 mmol/L Invalid Interpretation Code 0.2 - 2.0 mmol/L Auto Chem SS Calcium.ionized (Bld) [Mass/Vol] 1.01 mmol/L Invalid Interpretation Code 1.12 - 1.32 mmol/L Auto Chem SS LABORATORYOrdered By: [employer] on 01-24-2022 Hep B Surf Ag Non-Reactive (01/24/22 10:01 AM) Invalid Interpretation Code Non-Reactive ADM SS Albumin/Globulin [Mass ratio] 0.6 {ratio} Invalid Interpretation Code 0.9 - 1.6 ratio ADM SS ALP [Catalytic activity/Vol] 77 U/L Invalid Interpretation Code 38 - 126 U/L ADM SS ALT No additional P-5'-P [Catalytic activity/Vol] 19 U/L Invalid Interpretation Code 10 - 49 U/L ADM SS AST [Catalytic activity/Vol] 38 U/L Invalid Interpretation Code 8 - 34 U/L ADM SS Bilirubin [Mass/Vol] 0.80 mg/dL Invalid Interpretation Code 0.20 - 1.20 mg/dL ADM SS Globulin 3.7 G/dL Invalid Interpretation Code 1.5 - 3.8 G/dL ADM SS Phosphate [Mass/Vol] 4.3 mg/dL Invalid Interpretation Code 2.4 - 5.1 mg/dL ADM SS Protein [Mass/Vol] 6.1 G/dL Invalid Interpretation Code 5.7 - 8.2 G/dL ADM SS Troponin I.cardiac DL <= 0.01 ng/mL [Mass/Vol] 14.12 ng/L Invalid Interpretation Code 0.00 - 34.00 ng/L ADM SS LABORATORYOrdered By: Janina Lynne on 01-24-2022 INR Coag (PPP) [Relative time] 1.2 {INR} Invalid Interpretation Code Auto Coag SS PT Coag (PPP) [Time] 14.3 s Invalid Interpretation Code 9.0 - 14.9 seconds AH Auto Coag SS Appearance (U) Cloudy *ABN* (01/24/22 8:46 AM) Invalid Interpretation Code Clear AH Auto Urine SS Bilirubin Ql (U) Negative (01/24/22 8:46 AM) Invalid Interpretation Code Neg-Trace AH Auto Urine SS Color (U) Yellow (01/24/22 8:46 AM) Invalid Interpretation Code AH Auto Urine SS Crystals.amorphous LM.HPF (Urine sed) [#/Area] Trace /HPF Invalid Interpretation Code AH Auto Urine SS Glucose Test strip (U) [Mass/Vol] Negative Invalid Interpretation Code Negativemg/d L AH Auto Urine SS Hemoglobin Auto test strip (U) [Mass/Vol] Moderate *ABN* (01/24/22 8:46 AM) Invalid Interpretation Code Neg-Trace AH Auto Urine SS Ketones Ql (U) Negative Invalid Interpretation Code Neg-Tracemg/ dL AH Auto Urine SS UA Leuk Est Negative (01/24/22 8:46 AM) Invalid Interpretation Code Negative AH Auto Urine SS UA Nitrite Negative (01/24/22 8:46 AM) Invalid Interpretation Code Negative AH Auto Urine SS UA pH 5.0 (01/24/22 8:46 AM) Invalid Interpretation Code 5.0 - 8.0 AH Auto Urine SS UA Protein 30 mg/dL Invalid Interpretation Code Negativemg/d L AH Auto Urine SS UA RBC 0-2 /HPF Invalid Interpretation Code 0-2/HPF AH Auto Urine SS UA Spec Grav 1.010 (01/24/22 8:46 AM) Invalid Interpretation Code 1.006-1.029 AH Auto Urine SS UA Specimen Type Clean Catch (01/24/22 8:46 AM) Invalid Interpretation Code AH Auto Urine SS UA Squam Epithelial Rare /HPF Invalid Interpretation Code 0-20/HPF AH Auto Urine SS UA Urobilinogen 0.2 E.U./dL Invalid Interpretation Code 0.2-1.0E.U./ dL AH Auto Urine SS WBC LM.HPF (Urine sed) [#/Area] 3-5 /HPF Invalid Interpretation Code 0-5/HPF AH Auto Urine SS LABORATORYOrdered By: So raman on 01-24-2022 Creatinine (U) [Mass/Vol] 50.3 mg/dL Invalid Interpretation Code AH ADM SS Sodium (U) [Moles/Vol] 25 mmol/L Invalid Interpretation Code AH ADM SS No Panel Informationon 01-24 Culture Wound Aerobe Light Klebsiella ox ytoca Raoultella ornithinolytica Few Staphylococcus aureus [facility] Work Phone: GS Rare Polymorphonucle ar cells Rare Gram Negative Rods [facility] Work Phone: Klebsiella oxytoca Raoultella ornithinolytica Klebsiella oxytoca Raoultella ornithinolytica [facility] Work Phone: Staphylococcus aureus Staphylococcus aureus [facility] Work Phone: Culture Urine No growth at 48 hours. [facility] Work Phone: Legionella Urine Ag Presumptive negative for L. pneumophila serogroup 1 antigen in urine, suggesting no recent or current infection. Legionnaire's disease cannot be ruled out since other serogroups and species may also cause disease. [facility] Work Phone: Streptococcus Pneumoniae Urine Antig Presumptive negative for pneumococcal pneumonia, suggesting no current or recent pneumococcal infection. Infection due to Strep pneumoniae cannot be ruled out since the antigen present in the sample may be below the detection limit of the test. [facility] Work Phone: Comment on above: This test has not be en evaluated on patients taking antibiotics for greater than 24 hours or on patients who have recently completed an antibiotic regimen. The accuracy of this test has not been proven in young children. Microscopic examination of blood, culture Blood Culture: No Growth at 5 days. [facility] Work Phone: LABORATORYOrdered By: Marisela Pride on 01-16-2022 Calcium [Mass/Vol] 9.2 mg/dL Invalid Interpretation Code 8.4 - 10.2 mg/dL AO ADM SS Chloride [Moles/Vol] 98 mmol/L Invalid Interpretation Code 98 - 107 mmol/L AO ADM SS CO2 [Moles/Vol] 32 mmol/L Invalid Interpretation Code 23 - 31 mmol/L AO ADM SS Creatinine [Mass/Vol] 3.47 mg/dL Invalid Interpretation Code 0.55 - 1.02 mg/dL AO ADM SS Electrolyte Balance 8.0 mEq/L Invalid Interpretation Code 4.0 - 15.0 mEq/L AO ADM SS Glucose [Mass/Vol] 98 mg/dL Invalid Interpretation Code 80 - 115 mg/dL AO ADM SS Potassium [Moles/Vol] 3.0 mmol/L Invalid Interpretation Code 3.5 - 5.1 mmol/L AO ADM SS Sodium [Moles/Vol] 138 mmol/L Invalid Interpretation Code 136 - 145 mmol/L AO ADM SS Urea nitrogen [Mass/Vol] 44 mg/dL Invalid Interpretation Code 7 - 18 mg/dL AO ADM SS Urea nitrogen/Creatinine [Mass ratio] 13 ratio Invalid Interpretation Code 7 - 27 ratio AO ADM SS LABORATORYOrdered By: SYSTEM SYSTEM on 01-16-2022 GFR 16 ml/min/1.73sqm Invalid Interpretation Code AO Chemistry S GFR Non- 13 ml/min/1.73sqm Invalid Interpretation Code AO Chemistry S Basophil percentageon 2021 Potassium [Moles/Vol] 3.5 mmol/L 3.5-5.1 [facility] Work Phone: LABORATORYOrdered By: Nicholsa Huber on 11-04-2021 Albumin BCP dye [Mass/Vol] 2.9 G/dL Invalid Interpretation Code 3.4 - 4.8 G/dL AO ADM SS Albumin/Globulin [Mass ratio] 0.9 {ratio} Invalid Interpretation Code 1.1 - 2.5 ratio AO ADM SS ALP [Catalytic activity/Vol] 74 U/L Invalid Interpretation Code 40 - 135 U/L AO ADM SS ALT With P-5'-P [Catalytic activity/Vol] 36 U/L Invalid Interpretation Code 14 - 59 U/L AO ADM SS AST With P-5'-P [Catalytic activity/Vol] 30 U/L Invalid Interpretation Code 10 - 40 U/L AO ADM SS Bilirubin [Mass/Vol] 0.4 mg/dL Invalid Interpretation Code 0.2 - 1.0 mg/dL AO ADM SS Calcium [Mass/Vol] 9.8 mg/dL Invalid Interpretation Code 8.4 - 10.2 mg/dL AO ADM SS Chloride [Moles/Vol] 107 mmol/L Invalid Interpretation Code 98 - 107 mmol/L AO ADM SS CO2 [Moles/Vol] 27 mmol/L Invalid Interpretation Code 23 - 31 mmol/L AO ADM SS Creatinine [Mass/Vol] 2.77 mg/dL Invalid Interpretation Code 0.55 - 1.02 mg/dL AO ADM SS Electrolyte Balance 11.0 mEq/L Invalid Interpretation Code 4.0 - 15.0 mEq/L AO ADM SS Free T3 [Mass/Vol] 1.83 pg/mL Invalid Interpretation Code 2.30 - 4.00 pg/mL AO ADM SS Free T4 [Mass/Vol] 0.93 ng/dL Invalid Interpretation Code 0.76 - 1.46 ng/dL AO ADM SS Globulin 3.4 G/dL Invalid Interpretation Code AO ADM SS Glucose [Mass/Vol] 91 mg/dL Invalid Interpretation Code 80 - 115 mg/dL AO ADM SS Magnesium [Mass/Vol] 2.4 mg/dL Invalid Interpretation Code 1.8 - 2.4 mg/dL AO ADM SS Natriuretic peptide.B prohormone N-Terminal [Mass/Vol] 307 pg/mL Invalid Interpretation Code 0 - 125 pg/mL AO ADM SS Potassium [Moles/Vol] 3.6 mmol/L Invalid Interpretation Code 3.5 - 5.1 mmol/L AO ADM SS Protein [Mass/Vol] 6.3 G/dL Invalid Interpretation Code 6.4 - 8.2 G/dL AO ADM SS Sodium [Moles/Vol] 145 mmol/L Invalid Interpretation Code 136 - 145 mmol/L AO ADM SS TSH Qn 6.75 m[IU]/L Invalid Interpretation Code 0.36 - 3.74 mcIU/mL AO ADM SS Urea nitrogen [Mass/Vol] 27 mg/dL Invalid Interpretation Code 7 - 18 mg/dL AO ADM SS Urea nitrogen/Creatinine [Mass ratio] 10 ratio Invalid Interpretation Code 7 - 27 ratio AO ADM SS LABORATORYOrdered By: Bharti Patel on 11-04-2021 Basophil, Absolute 0.00 103/mcL Invalid Interpretation Code 0.00 - 0.19 10^3/mcL AO Auto Heme SS Basophils/100 WBC (Bld) 0.2 % Invalid Interpretation Code 0.0 - 2.5 % AO Auto Heme SS Eosinophil, Absolute 0.10 103/mcL Invalid Interpretation Code 0.00 - 0.40 10^3/mcL AO Auto Heme SS Eosinophils/100 WBC (Bld) 2.4 % Invalid Interpretation Code 0.0 - 7.0 % AO Auto Heme SS Erythrocyte distribution width (RBC) [Ratio] 15.9 % Invalid Interpretation Code 11.5 - 14.5 % AO Auto Heme SS Hematocrit (Bld) [Volume fraction] 26.2 % Invalid Interpretation Code 37.0 - 47.0 % AO Auto Heme SS Hemoglobin (Bld) [Mass/Vol] 8.7 G/dL Invalid Interpretation Code 12.0 - 16.0 G/dL AO Auto Heme SS Lymphocyte, Absolute 1.70 103/mcL Invalid Interpretation Code 0.77 - 3.85 10^3/mcL AO Auto Heme SS Lymphocytes/100 WBC (Bld) 28.6 % Invalid Interpretation Code 10.0 - 50.0 % AO Auto Heme SS MCH (RBC) [Entitic mass] 30.8 pg Invalid Interpretation Code 27.0 - 31.2 pg AO Auto Heme SS MCHC (RBC) [Mass/Vol] 33.3 G/dL Invalid Interpretation Code 33.0 - 37.0 G/dL AO Auto Heme SS MCV (RBC) [Entitic vol] 92.6 fL Invalid Interpretation Code 80.0 - 94.0 fL AO Auto Heme SS Monocyte, Absolute 0.40 103/mcL Invalid Interpretation Code 0.15 - 1.00 10^3/mcL AO Auto Heme SS Monocytes/100 WBC (Bld) 7.0 % Invalid Interpretation Code 1.7 - 13.0 % AO Auto Heme SS Neutrophil, Absolute 3.70 103/mcL Invalid Interpretation Code 2.85 - 6.16 10^3/mcL AO Auto Heme SS Neutrophils/100 WBC (Bld) 61.8 % Invalid Interpretation Code 37.0 - 80.0 % AO Auto Heme SS Platelet mean volume (Bld) [Entitic vol] 8.3 fL Invalid Interpretation Code 7.4 - 10.4 fL AO Auto Heme SS Platelets (Bld) [#/Vol] 216 103/mcL Invalid Interpretation Code 130 - 400 10^3/mcL AO Auto Heme SS RBC (Bld) [#/Vol] 2.83 106/mcL Invalid Interpretation Code 4.20 - 5.40 10^6/mcL AO Auto Heme SS WBC (Bld) [#/Vol] 6.00 103/mcL Invalid Interpretation Code 4.60 - 10.80 10^3/mcL AO Auto Heme SS LABORATORYOrdered By: SYSTEM SYSTEM on 11-04-2021 GFR 21 ml/min/1.73sqm Invalid Interpretation Code AO Chemistry S GFR Non- 17 ml/min/1.73sqm Invalid Interpretation Code AO Chemistry S Absolute lymphocyte counton 10-27-2021 Lymphocytes Auto (Unsp spec) [#/Vol] 0.87 10*3/uL 0.83-4.51 [facility] Work Phone: Basophil percentageon 2021 Basophil percentage 10-25 SEEN /hpf [facility] Work Phone: Basophils/100 WBC (Bld) 0.6 % 0-1 [facility] Work Phone: [phone] Bilirubin [Mass/Vol] 0.60 mg/dL 0.20-1.00 [facility] Work Phone: Comment on above: For patients on eltr ombopag therapy, use of Dimension Casar TBIL is not recommended. Chloride [Moles/Vol] 100 mmol/L 98-107 [facility] Work Phone: Eosinophils/100 WBC (Bld) 1.4 % 0-5 [facility] Work Phone: Glucose [Mass/Vol] 104 mg/dL 74-106 [facility] Work Phone: Comment on above: Fasting Glucose resu lt from 100 to 125 mg/dL suggests IMPAIRED HOMEOSTASIS per A.D.A. criteria. Neutrophils (Bld) [#/Vol] 4.7 10*3/uL 2.0-7.7 [facility] Work Phone: Neutrophils/100 WBC (Bld) 74.0 % 47-70 [facility] Work Phone: Potassium [Moles/Vol] 3.2 mmol/L 3.5-5.1 [facility] Work Phone: Protein [Mass/Vol] 7.6 g/dL 6.4-8.2 [facility] Work Phone: Sodium [Moles/Vol] 138 mmol/L 136-145 [facility] Work Phone: [phone] WBC (Bld) [#/Vol] 6.3 10*3/uL 4.4-11.0 [facility] Work Phone: Bilirubin Test strip Ql (U)o n 10-27-2021 Bilirubin Ql (U) Negative Negative [facility] Work Phone: Blood erythrocytes count (nu mber/volume)on 10-27-2021 RBC (Bld) [#/Vol] 3.50 10*6/uL 4.2-5.4 [facility] Work Phone: Blood hemoglobin measurement (mass/volume)on 10-27-2021 Hemoglobin (Bld) [Mass/Vol] 11.1 g/dL 12.0-15.0 [facility] Work Phone: Blood lymphocytes/100 leukoc yteson 10-27-2021 Lymphocytes/100 WBC (Bld) 13.8 % 19-41 [facility] Work Phone: Blood monocytes/100 leukocyt eson 10-27-2021 Monocytes/100 WBC (Bld) 9.2 % 0-10 [facility] Work Phone: Blood platelet mean volumeon 10-27-2021 Platelet mean volume (Bld) [Entitic vol] 9.3 fL 6.2-12.0 [facility] Work Phone: Culture, urineon 10-27-2021 Bacteria identified Cx Nom (U) Escherichia coli [facility] Work Phone: Determination of erythrocyte mean corpuscular volume (MCV)on 10-27-2021 MCV (RBC) [Entitic vol] 96.3 fL 81-99 [facility] Work Phone: Hematocrit Auto (Bld) [Volum e fraction]on 10-27-2021 Hematocrit (Bld) [Volume fraction] 33.7 % 37-47 [facility] Work Phone: Ketones Test strip Ql (U)on 10-27-2021 Ketones Ql (U) Negative Negative [facility] Work Phone: LABORATORYOrdered By: Naomie Moore on 10-27-2021 Basophil, Absolute 0.00 103/mcL Invalid Interpretation Code 0.00 - 0.19 10^3/mcL AO Auto Heme SS Basophils/100 WBC (Bld) 0.6 % Invalid Interpretation Code 0.0 - 2.5 % AO Auto Heme SS Eosinophil, Absolute 0.10 103/mcL Invalid Interpretation Code 0.00 - 0.40 10^3/mcL AO Auto Heme SS Eosinophils/100 WBC (Bld) 1.1 % Invalid Interpretation Code 0.0 - 7.0 % AO Auto Heme SS Erythrocyte distribution width (RBC) [Ratio] 16.0 % Invalid Interpretation Code 11.5 - 14.5 % AO Auto Heme SS Hematocrit (Bld) [Volume fraction] 29.9 % Invalid Interpretation Code 37.0 - 47.0 % AO Auto Heme SS Hemoglobin (Bld) [Mass/Vol] 10.1 G/dL Invalid Interpretation Code 12.0 - 16.0 G/dL AO Auto Heme SS Lymphocyte, Absolute 1.10 103/mcL Invalid Interpretation Code 0.77 - 3.85 10^3/mcL AO Auto Heme SS Lymphocytes/100 WBC (Bld) 16.7 % Invalid Interpretation Code 10.0 - 50.0 % AO Auto Heme SS MCH (RBC) [Entitic mass] 31.7 pg Invalid Interpretation Code 27.0 - 31.2 pg AO Auto Heme SS MCHC (RBC) [Mass/Vol] 33.7 G/dL Invalid Interpretation Code 33.0 - 37.0 G/dL AO Auto Heme SS MCV (RBC) [Entitic vol] 94.0 fL Invalid Interpretation Code 80.0 - 94.0 fL AO Auto Heme SS Monocyte, Absolute 0.60 103/mcL Invalid Interpretation Code 0.15 - 1.00 10^3/mcL AO Auto Heme SS Monocytes/100 WBC (Bld) 9.5 % Invalid Interpretation Code 1.7 - 13.0 % AO Auto Heme SS Neutrophil, Absolute 4.80 103/mcL Invalid Interpretation Code 2.85 - 6.16 10^3/mcL AO Auto Heme SS Neutrophils/100 WBC (Bld) 72.1 % Invalid Interpretation Code 37.0 - 80.0 % AO Auto Heme SS Platelet mean volume (Bld) [Entitic vol] 7.7 fL Invalid Interpretation Code 7.4 - 10.4 fL AO Auto Heme SS Platelets (Bld) [#/Vol] 223 103/mcL Invalid Interpretation Code 130 - 400 10^3/mcL AO Auto Heme SS RBC (Bld) [#/Vol] 3.18 106/mcL Invalid Interpretation Code 4.20 - 5.40 10^6/mcL AO Auto Heme SS WBC (Bld) [#/Vol] 6.70 103/mcL Invalid Interpretation Code 4.60 - 10.80 10^3/mcL AO Auto Heme SS LABORATORYOrdered By: Darius Shook on 10-27-2021 Calcium [Mass/Vol] 9.0 mg/dL Invalid Interpretation Code 8.4 - 10.2 mg/dL AO ADM SS Chloride [Moles/Vol] 100 mmol/L Invalid Interpretation Code 98 - 107 mmol/L AO ADM SS CO2 [Moles/Vol] 27 mmol/L Invalid Interpretation Code 23 - 31 mmol/L AO ADM SS Creatinine [Mass/Vol] 3.18 mg/dL Invalid Interpretation Code 0.55 - 1.02 mg/dL AO ADM SS Electrolyte Balance 12.0 mEq/L Invalid Interpretation Code 4.0 - 15.0 mEq/L AO ADM SS Glucose [Mass/Vol] 98 mg/dL Invalid Interpretation Code 80 - 115 mg/dL AO ADM SS Potassium [Moles/Vol] 3.8 mmol/L Invalid Interpretation Code 3.5 - 5.1 mmol/L AO ADM SS Sodium [Moles/Vol] 139 mmol/L Invalid Interpretation Code 136 - 145 mmol/L AO ADM SS Urea nitrogen [Mass/Vol] 39 mg/dL Invalid Interpretation Code 7 - 18 mg/dL AO ADM SS Urea nitrogen/Creatinine [Mass ratio] 12 ratio Invalid Interpretation Code 7 - 27 ratio AO ADM SS Uric Acid Lvl 7.4 mg/dL Invalid Interpretation Code 2.6 - 6.2 mg/dL AO ADM SS Vit. D 25-Hydroxy 82.6 ng/mL Invalid Interpretation Code AO ADM SS LABORATORYOrdered By: SYSTEM SYSTEM on 10-27-2021 GFR 18 ml/min/1.73sqm Invalid Interpretation Code AO Chemistry S GFR Non- 14 ml/min/1.73sqm Invalid Interpretation Code AO Chemistry S Laboratory - Chemistry and C hemistry - challengeon 10-27-2021 ALP [Catalytic activity/Vol] 87 U/L 45-117 [facility] Work Phone: ALT [Catalytic activity/Vol] 25 U/L 13-56 [facility] Work Phone: CO2 [Moles/Vol] 30.0 mmol/L 21.0-32.0 [facility] Work Phone: Globulin (S) [Mass/Vol] 4.3 g/dL 2.2-4.2 [facility] Work Phone: Urea nitrogen/Creatinine [Mass ratio] 12.0 mg/mg 10-20 [facility] Work Phone: Laboratory - Hematology and Cell countson 10-27-2021 Erythrocyte distribution width (RBC) [Entitic vol] 51.9 fL 35.1-43.9 [facility] Work Phone: Erythrocyte distribution width (RBC) [Ratio] 15.1 % 11.6-14.6 [facility] Work Phone: Immature granulocytes/100 WBC (Bld) 1.000 % 0.0-0.9 [facility] Work Phone: Comment on above: IG% - Immature Granu locytes (promyelocytes, myelocytes and metamyelocytes) > 1% indicates that a LEFT SHIFT is Present. MCH (RBC) [Entitic mass] 31.7 pg 27.0-32.0 [facility] Work Phone: Nucleated RBC/100 WBC (Bld) [Ratio] 0.3 % 0-5 [facility] Work Phone: MCHC Auto (RBC) [Mass/Vol]on 10-27-2021 MCHC (RBC) [Mass/Vol] 32.9 g/dL 32-36 [facility] Work Phone: Mucus LM Ql (Urine sed)on Mucus Ql (Urine sed) 0 SEEN /hpf [facility] Work Phone: Nitrite Test strip Ql (U)on 10-27-2021 Nitrite Ql (U) Positive Negative [facility] Work Phone: No Panel Informationon 10-27 Estimated Creatinine Clearance Calc 12.03 ml/min [facility] Work Phone: Estimated GFR (MDRD) Amer 19 mL/min >60 [facility] Work Phone: Comment on above: GFR Calc Estimated GFR (MDRD) Non-Af Amer 15 mL/min >60 [facility] Work Phone: Comment on above: Non- GFR Calc Troponin I High Sensitivity 9 pg/mL 3.0-54.0 [facility] Work Phone: Comment on above: Please Note: New [place] t Units and Gender Specific Reference Ranges. For more information see Policy Stat Procedure Casar High Sensitivity Troponin (TNIH) and attachments. Influenza Types A,B Direct FA (PRISCILLA) [facility] Work Phone: Platelets bldon 10-27-2021 Platelets (Bld) [#/Vol] 199 10*3/uL 150-450 [facility] Work Phone: Protein Test strip Ql (U)on 10-27-2021 Protein Ql (U) 15 mg/dl Negative [facility] Work Phone: Serum or plasma albumin jaydon urement (mass/volume)on 10-27-2021 Albumin [Mass/Vol] 3.3 g/dL 3.2-5.0 [facility] Work Phone: Serum or plasma albumin/glob ulin mass ratioon 10-27-2021 Albumin/Globulin [Mass ratio] 0.8 {ratio} 0.9-2.4 [facility] Work Phone: Serum or plasma calcium jaydon urement (mass/volume)on 10-27-2021 Calcium [Mass/Vol] 9.4 mg/dL 8.5-10.1 [facility] Work Phone: Serum or plasma creatinine m easurement (mass/volume)on 10-27-2021 Creatinine [Mass/Vol] 3.17 mg/dL 0.55-1.02 [facility] Work Phone: Comment on above: The validity of the calculated GFR & GFRAA in patients over 70 years has not been determined. Clinical correlation is essential. Serum or plasma urea nitroge n measurement (mass/volume)on 10-27-2021 Urea nitrogen [Mass/Vol] 38 mg/dL 7-18 [facility] Work Phone: Squamous epithelial cells de tection in urine sediment by light microscopyon 10-27-2021 Epithelial cells.squamous LM Ql (Urine sed) 0-5 SEEN /hpf [facility] Work Phone: Thin prep Papanicolaou smear with manual screeningon 10-27-2021 Thin prep Papanicolaou smear with manual screening 19 U/L 15-37 [facility] Work Phone: Thin prep Papanicolaou smear with manual screening 8 5-15 [facility] Work Phone: Urine blood detectionon 03-0 RBC Ql (U) 10 /ul Negative [facility] Work Phone: RBC Ql (U) 0-5 SEEN /hpf [facility] Work Phone: Urine clarityon 10-27-2021 Clarity (U) Sl. Cloudy Clear [facility] Work Phone: Urine color determinationon 10-27-2021 Color (U) Yellow Yellow [facility] Work Phone: Urine glucose detectionon Glucose Ql (U) Normal mg/dl Normal [facility] Work Phone: Urine leukocyte esterase det ection by dipstickon 10-27-2021 Leukocyte esterase Test strip Ql (U) 100 /ul Negative [facility] Work Phone: Urine pHon 10-27-2021 pH (U) 5.0 [pH] [facility] Work Phone: Urine sediment bacteria coun t by microscopy (number/high power field)on 10-27-2021 Bacteria LM.HPF (Urine sed) [#/Area] 2 /[HPF] None Seen [facility] Work Phone: Urine specific gravity measu rementon 10-27-2021 Specific gravity (U) [Rel density] 1.015 [facility] Work Phone: Urobilinogen Auto test strip Ql (U)on 10-27-2021 Urobilinogen Ql (U) Normal mg/dl Normal [facility] Work Phone: Basophil percentageon 2021 Chloride [Moles/Vol] 104 mmol/L 98-107 [facility] Work Phone: Glucose [Mass/Vol] 100 mg/dL 74-106 [facility] Work Phone: Comment on above: Fasting Glucose resu lt from 100 to 125 mg/dL suggests IMPAIRED HOMEOSTASIS per A.D.A. criteria. Potassium [Moles/Vol] 3.4 mmol/L 3.5-5.1 [facility] Work Phone: Sodium [Moles/Vol] 140 mmol/L 136-145 [facility] Work Phone: WBC (Bld) [#/Vol] 8.9 10*3/uL 4.4-11.0 [facility] Work Phone: Blood erythrocytes count (nu mber/volume)on 10-20-2021 RBC (Bld) [#/Vol] 3.40 10*6/uL 4.2-5.4 [facility] Work Phone: Blood hemoglobin measurement (mass/volume)on 10-20-2021 Hemoglobin (Bld) [Mass/Vol] 10.7 g/dL 12.0-15.0 [facility] Work Phone: Blood platelet mean volumeon 10-20-2021 Platelet mean volume (Bld) [Entitic vol] 9.6 fL 6.2-12.0 [facility] Work Phone: Determination of erythrocyte mean corpuscular volume (MCV)on 10-20-2021 MCV (RBC) [Entitic vol] 95.6 fL 81-99 [facility] Work Phone: Hematocrit Auto (Bld) [Volum e fraction]on 10-20-2021 Hematocrit (Bld) [Volume fraction] 32.5 % 37-47 [facility] Work Phone: Laboratory - Chemistry and C hemistry - challengeon 10-20-2021 CO2 [Moles/Vol] 29.0 mmol/L 21.0-32.0 [facility] Work Phone: Urea nitrogen/Creatinine [Mass ratio] 12.0 mg/mg 10-20 [facility] Work Phone: Laboratory - Hematology and Cell countson 10-20-2021 Erythrocyte distribution width (RBC) [Entitic vol] 50.5 fL 35.1-43.9 [facility] Work Phone: Erythrocyte distribution width (RBC) [Ratio] 14.5 % 11.6-14.6 [facility] Work Phone: MCH (RBC) [Entitic mass] 31.5 pg 27.0-32.0 [facility] Work Phone: MCHC Auto (RBC) [Mass/Vol]on 10-20-2021 MCHC (RBC) [Mass/Vol] 32.9 g/dL 32-36 [facility] Work Phone: No Panel Informationon 10-20 Estimated GFR (MDRD) Amer 22 mL/min >60 [facility] Work Phone: Comment on above: GFR Calc Estimated GFR (MDRD) Non-Af Amer 18 mL/min >60 [facility] Work Phone: Comment on above: Non- GFR Calc SARS-CoV-2 Antigen (Rapid) [facility] Work Phone: Platelets bldon 10-20-2021 Platelets (Bld) [#/Vol] 272 10*3/uL 150-450 [facility] Work Phone: Serum or plasma calcium jaydon urement (mass/volume)on 10-20-2021 Calcium [Mass/Vol] 9.4 mg/dL 8.5-10.1 [facility] Work Phone: Serum or plasma creatinine m easurement (mass/volume)on 10-20-2021 Creatinine [Mass/Vol] 2.75 mg/dL 0.55-1.02 [facility] Work Phone: Comment on above: The validity of the calculated GFR & GFRAA in patients over 70 years has not been determined. Clinical correlation is essential. Serum or plasma urea nitroge n measurement (mass/volume)on 10-20-2021 Urea nitrogen [Mass/Vol] 33 mg/dL 7-18 [facility] Work Phone: Thin prep Papanicolaou smear with manual screeningon 10-20-2021 Thin prep Papanicolaou smear with manual screening 7 01-04 [facility] Work Phone: PTH, Intacton 09-26-2021 PTH, Intact 48 pg/mL Normal 15-65 [facility] Comment on above: Performed By: #### P THI #### [facility] Laboratories Routine Lab [address] [id number] LABORATORYOrdered By: Darius Shook on 08-26-2021 Albumin BCP dye [Mass/Vol] 3.1 G/dL Invalid Interpretation Code 3.4 - 4.8 G/dL AO ADM SS Albumin/Globulin [Mass ratio] 0.9 {ratio} Invalid Interpretation Code 1.1 - 2.5 ratio AO ADM SS ALP [Catalytic activity/Vol] 80 U/L Invalid Interpretation Code 40 - 135 U/L AO ADM SS ALT With P-5'-P [Catalytic activity/Vol] 27 U/L Invalid Interpretation Code 14 - 59 U/L AO ADM SS AST With P-5'-P [Catalytic activity/Vol] 25 U/L Invalid Interpretation Code 10 - 40 U/L AO ADM SS Bilirubin [Mass/Vol] 0.3 mg/dL Invalid Interpretation Code 0.2 - 1.0 mg/dL AO ADM SS Calcium [Mass/Vol] 9.1 mg/dL Invalid Interpretation Code 8.4 - 10.2 mg/dL AO ADM SS Chloride [Moles/Vol] 102 mmol/L Invalid Interpretation Code 98 - 107 mmol/L AO ADM SS Cholesterol [Mass/Vol] 147 mg/dL Invalid Interpretation Code 0 - 200 mg/dL AO ADM SS Cholesterol in HDL [Mass/Vol] 46 mg/dL Invalid Interpretation Code 40 - 60 mg/dL AO ADM SS Cholesterol in LDL [Mass/Vol] 68 mg/dL Invalid Interpretation Code 0 - 130 mg/dL AO ADM SS CO2 [Moles/Vol] 29 mmol/L Invalid Interpretation Code 23 - 31 mmol/L AO ADM SS Creatinine [Mass/Vol] 2.49 mg/dL Invalid Interpretation Code 0.55 - 1.02 mg/dL AO ADM SS Electrolyte Balance 11.0 mEq/L Invalid Interpretation Code AO ADM SS Globulin 3.6 G/dL Invalid Interpretation Code AO ADM SS Glucose [Mass/Vol] 116 mg/dL Invalid Interpretation Code 80 - 115 mg/dL AO ADM SS Potassium [Moles/Vol] 3.5 mmol/L Invalid Interpretation Code 3.5 - 5.1 mmol/L AO ADM SS Protein [Mass/Vol] 6.7 G/dL Invalid Interpretation Code 6.4 - 8.2 G/dL AO ADM SS Sodium [Moles/Vol] 142 mmol/L Invalid Interpretation Code 136 - 145 mmol/L AO ADM SS Triglyceride [Mass/Vol] 167 mg/dL Invalid Interpretation Code 0 - 150 mg/dL AO ADM SS TSH Qn 1.16 m[IU]/L Invalid Interpretation Code 0.36 - 3.74 mcIU/mL AO ADM SS Urea nitrogen [Mass/Vol] 25 mg/dL Invalid Interpretation Code 7 - 18 mg/dL AO ADM SS Urea nitrogen/Creatinine [Mass ratio] 10 ratio Invalid Interpretation Code 7 - 27 ratio AO ADM SS LABORATORYOrdered By: SYSTEM SYSTEM on 08-26-2021 GFR 23 ml/min/1.73sqm Invalid Interpretation Code AO Chemistry S GFR Non- 19 ml/min/1.73sqm Invalid Interpretation Code AO Chemistry S LABORATORYOrdered By: Marisela Pride on 07-31-2021 Albumin BCP dye [Mass/Vol] 3.2 G/dL Invalid Interpretation Code 3.4 - 4.8 G/dL AO ADM SS Albumin/Globulin [Mass ratio] 0.9 {ratio} Invalid Interpretation Code 1.1 - 2.5 ratio AO ADM SS ALP [Catalytic activity/Vol] 88 U/L Invalid Interpretation Code 40 - 135 U/L AO ADM SS ALT With P-5'-P [Catalytic activity/Vol] 29 U/L Invalid Interpretation Code 14 - 59 U/L AO ADM SS AST With P-5'-P [Catalytic activity/Vol] 19 U/L Invalid Interpretation Code 10 - 40 U/L AO ADM SS Bilirubin [Mass/Vol] 0.3 mg/dL Invalid Interpretation Code 0.2 - 1.0 mg/dL AO ADM SS Calcium [Mass/Vol] 9.2 mg/dL Invalid Interpretation Code 8.4 - 10.2 mg/dL AO ADM SS Chloride [Moles/Vol] 105 mmol/L Invalid Interpretation Code 98 - 107 mmol/L AO ADM SS CO2 [Moles/Vol] 29 mmol/L Invalid Interpretation Code 23 - 31 mmol/L AO ADM SS Creatinine [Mass/Vol] 2.16 mg/dL Invalid Interpretation Code 0.55 - 1.02 mg/dL AO ADM SS Electrolyte Balance 12.0 mEq/L Invalid Interpretation Code AO ADM SS Free T4 [Mass/Vol] 1.03 ng/dL Invalid Interpretation Code 0.76 - 1.46 ng/dL AO ADM SS Globulin 3.6 G/dL Invalid Interpretation Code AO ADM SS Glucose [Mass/Vol] 98 mg/dL Invalid Interpretation Code 80 - 115 mg/dL AO ADM SS Natriuretic peptide.B prohormone N-Terminal [Mass/Vol] 321 pg/mL Invalid Interpretation Code 0 - 125 pg/mL AO ADM SS Potassium [Moles/Vol] 4.2 mmol/L Invalid Interpretation Code 3.5 - 5.1 mmol/L AO ADM SS Protein [Mass/Vol] 6.8 G/dL Invalid Interpretation Code 6.4 - 8.2 G/dL AO ADM SS Sodium [Moles/Vol] 146 mmol/L Invalid Interpretation Code 136 - 145 mmol/L AO ADM SS TSH Qn 1.51 m[IU]/L Invalid Interpretation Code 0.36 - 3.74 mcIU/mL AO ADM SS Urea nitrogen [Mass/Vol] 29 mg/dL Invalid Interpretation Code 7 - 18 mg/dL AO ADM SS Urea nitrogen/Creatinine [Mass ratio] 13 ratio Invalid Interpretation Code 7 - 27 ratio AO ADM SS LABORATORYOrdered By: Bharti Patel on 07-31-2021 Band form neutrophils (Bld) [#/Vol] 3.0 10*3/uL Invalid Interpretation Code 0.0 - 5.0 % AO Auto Heme SS Basophil %, Manual 0.0 1 Invalid Interpretation Code 0.0 - 2.5 % AO Auto Heme SS Basophil, Abs Manual 0.00 103/mcL Invalid Interpretation Code 0.00 - 0.19 10^3/mcL AO Auto Heme SS Eosinophil %, Manual 1.0 1 Invalid Interpretation Code 0.0 - 7.0 % AO Auto Heme SS Eosinophil, Abs Manual 0.10 103/mcL Invalid Interpretation Code 0.00 - 0.40 10^3/mcL AO Auto Heme SS Erythrocyte distribution width (RBC) [Ratio] 13.6 % Invalid Interpretation Code 11.5 - 14.5 % AO Auto Heme SS Hematocrit (Bld) [Volume fraction] 30.7 % Invalid Interpretation Code 37.0 - 47.0 % AO Auto Heme SS Hemoglobin (Bld) [Mass/Vol] 10.1 G/dL Invalid Interpretation Code 12.0 - 16.0 G/dL AO Auto Heme SS Lymphocyte %, Manual 28.0 1 Invalid Interpretation Code 10.0 - 50.0 % AO Auto Heme SS Lymphocyte, Abs Manual 2.94 103/mcL Invalid Interpretation Code 0.77 - 3.85 10^3/mcL AO Auto Heme SS Macrocytes Ql (Bld) Slight (07/31/21 11:59 AM) Invalid Interpretation Code AO Auto Heme SS MCH (RBC) [Entitic mass] 32.2 pg Invalid Interpretation Code 27.0 - 31.2 pg AO Auto Heme SS MCHC (RBC) [Mass/Vol] 33.0 G/dL Invalid Interpretation Code 33.0 - 37.0 G/dL AO Auto Heme SS MCV (RBC) [Entitic vol] 97.4 fL Invalid Interpretation Code 80.0 - 94.0 fL AO Auto Heme SS Monocyte %, Manual 4.0 1 Invalid Interpretation Code 1.7 - 13.0 % AO Auto Heme SS Monocyte, Abs Manual 0.42 103/mcL Invalid Interpretation Code 0.15 - 1.00 10^3/mcL AO Auto Heme SS Neutrophil %, Manual 64.0 1 Invalid Interpretation Code 37.0 - 80.0 % AO Auto Heme SS Neutrophil, Abs Manual 7.03 103/mcL Invalid Interpretation Code 2.85 - 6.16 10^3/mcL AO Auto Heme SS Platelet Estimate Normal (07/31/21 11:59 AM) Invalid Interpretation Code AO Auto Heme SS Platelet mean volume (Bld) [Entitic vol] 7.7 fL Invalid Interpretation Code 7.4 - 10.4 fL AO Auto Heme SS Platelets (Bld) [#/Vol] 335 103/mcL Invalid Interpretation Code 130 - 400 10^3/mcL AO Auto Heme SS RBC (Bld) [#/Vol] 3.15 106/mcL Invalid Interpretation Code 4.20 - 5.40 10^6/mcL AO Auto Heme SS Toxic granules LM Ql (Bld) Slight (07/31/21 11:59 AM) Invalid Interpretation Code AO Auto Heme SS WBC (Bld) [#/Vol] 10.50 103/mcL Invalid Interpretation Code 4.60 - 10.80 10^3/mcL AO Auto Heme SS LABORATORYOrdered By: SYSTEM SYSTEM on 07-31-2021 GFR 27 ml/min/1.73sqm Invalid Interpretation Code AO Chemistry S GFR Non- 23 ml/min/1.73sqm Invalid Interpretation Code AO Chemistry S PTH, Intacton 06-26-2021 PTH, Intact 130 pg/mL High 15-65 [facility] Comment on above: Performed By: #### P THI #### [facility] Laboratories Routine Lab [address] [place], [place] [address] LABORATORYOrdered By: Darius Shook on 06-05-2021 Calcium [Mass/Vol] 9.5 mg/dL Invalid Interpretation Code 8.4 - 10.2 mg/dL AO ADM SS Calcium.ionized (Bld) [Moles/Vol] 1.27 mmol/L Invalid Interpretation Code 1.12 - 1.32 mmol/L AO Blood Gas SS Chloride [Moles/Vol] 107 mmol/L Invalid Interpretation Code 98 - 107 mmol/L AO ADM SS CO2 [Moles/Vol] 30 mmol/L Invalid Interpretation Code 23 - 31 mmol/L AO ADM SS Creatinine [Mass/Vol] 2.27 mg/dL Invalid Interpretation Code 0.55 - 1.02 mg/dL AO ADM SS Electrolyte Balance 9.0 mEq/L Invalid Interpretation Code AO ADM SS Free T3 [Mass/Vol] 1.52 pg/mL Invalid Interpretation Code 2.30 - 4.00 pg/mL AO ADM SS Free T4 [Mass/Vol] 1.08 ng/dL Invalid Interpretation Code 0.76 - 1.46 ng/dL AO ADM SS Glucose [Mass/Vol] 94 mg/dL Invalid Interpretation Code 80 - 115 mg/dL AO ADM SS HbA1c (Bld) [Mass fraction] 5.0 % Invalid Interpretation Code 4.3 - 6.4 % AO ADM SS Potassium [Moles/Vol] 3.6 mmol/L Invalid Interpretation Code 3.5 - 5.1 mmol/L AO ADM SS Sodium [Moles/Vol] 146 mmol/L Invalid Interpretation Code 136 - 145 mmol/L AO ADM SS TSH Qn 2.75 m[IU]/L Invalid Interpretation Code 0.36 - 3.74 mcIU/mL AO ADM SS Urea nitrogen [Mass/Vol] 27 mg/dL Invalid Interpretation Code 7 - 18 mg/dL AO ADM SS Urea nitrogen/Creatinine [Mass ratio] 12 ratio Invalid Interpretation Code 7 - 27 ratio AO ADM SS Vit. D 25-Hydroxy 72.9 ng/mL Invalid Interpretation Code AO ADM SS LABORATORYOrdered By: SYSTEM SYSTEM on 06-05-2021 Cortisol [Mass/Vol] 13.5 ug/dL Invalid Interpretation Code 6.5 - 26.0 mcg/dL ADM SS Follitropin Qn 71.6 m[IU]/mL Invalid Interpretation Code AH ADM SS GFR 26 ml/min/1.73sqm Invalid Interpretation Code AO Chemistry S GFR Non- 21 ml/min/1.73sqm Invalid Interpretation Code AO Chemistry S Parathyrin.intact [Mass/Vol] 46.6 pg/mL Invalid Interpretation Code 18.5 - 88.0 pg/mL ADM SS Prolactin [Mass/Vol] 14.2 ng/mL Invalid Interpretation Code 2.0 - 30.0 ng/mL AH ADM SS LABORATORYOrdered By: Bharti Patel on 06-05-2021 Basophil, Absolute 0.10 103/mcL Invalid Interpretation Code 0.00 - 0.19 10^3/mcL AO Auto Heme SS Basophils/100 WBC (Bld) 0.6 % Invalid Interpretation Code 0.0 - 2.5 % AO Auto Heme SS Eosinophil, Absolute 0.20 103/mcL Invalid Interpretation Code 0.00 - 0.40 10^3/mcL AO Auto Heme SS Eosinophils/100 WBC (Bld) 2.5 % Invalid Interpretation Code 0.0 - 7.0 % AO Auto Heme SS Erythrocyte distribution width (RBC) [Ratio] 16.2 % Invalid Interpretation Code 11.5 - 14.5 % AO Auto Heme SS Hematocrit (Bld) [Volume fraction] 33.6 % Invalid Interpretation Code 37.0 - 47.0 % AO Auto Heme SS Hemoglobin (Bld) [Mass/Vol] 11.1 G/dL Invalid Interpretation Code 12.0 - 16.0 G/dL AO Auto Heme SS Lymphocyte, Absolute 2.20 103/mcL Invalid Interpretation Code 0.77 - 3.85 10^3/mcL AO Auto Heme SS Lymphocytes/100 WBC (Bld) 24.1 % Invalid Interpretation Code 10.0 - 50.0 % AO Auto Heme SS MCH (RBC) [Entitic mass] 32.5 pg Invalid Interpretation Code 27.0 - 31.2 pg AO Auto Heme SS MCHC (RBC) [Mass/Vol] 33.2 G/dL Invalid Interpretation Code 33.0 - 37.0 G/dL AO Auto Heme SS MCV (RBC) [Entitic vol] 97.9 fL Invalid Interpretation Code 80.0 - 94.0 fL AO Auto Heme SS Monocyte, Absolute 0.60 103/mcL Invalid Interpretation Code 0.15 - 1.00 10^3/mcL AO Auto Heme SS Monocytes/100 WBC (Bld) 6.5 % Invalid Interpretation Code 1.7 - 13.0 % AO Auto Heme SS Neutrophil, Absolute 6.00 103/mcL Invalid Interpretation Code 2.85 - 6.16 10^3/mcL AO Auto Heme SS Neutrophils/100 WBC (Bld) 66.3 % Invalid Interpretation Code 37.0 - 80.0 % AO Auto Heme SS Platelet mean volume (Bld) [Entitic vol] 7.8 fL Invalid Interpretation Code 7.4 - 10.4 fL AO Auto Heme SS Platelets (Bld) [#/Vol] 236 103/mcL Invalid Interpretation Code 130 - 400 10^3/mcL AO Auto Heme SS RBC (Bld) [#/Vol] 3.43 106/mcL Invalid Interpretation Code 4.20 - 5.40 10^6/mcL AO Auto Heme SS WBC (Bld) [#/Vol] 9.10 103/mcL Invalid Interpretation Code 4.60 - 10.80 10^3/mcL AO Auto Heme [facility] CNPN Telephone ([email or web address]) -- MARCOS SHELTON ([id number]) 1950 F Date Time Provider Department 05/27/21 LOUIE CALLES During your visit today, we recorded the following information about you: Louie Calles APRN.CNP 05/27/2021 3:49 PM Signed Patient called today. Reason for call: Returned call to patient. She stated that she wants to have a bone density test and was told that she still had hardware in her spine and that they were unable to perform the test. She underwent a lumbar reexploration with hardware removal due to wound infection per Dr. Perez in October 2020. I discussed with her that she does continue to have a cage at L2 as this can not be removed. All of the other lumbar hardware has been removed including a cross-link, 2 rods, 12 pedicle screws and 12 set screws. I told her if there were any questions to feel free to contact the office. She was pleased with our conversation. Patient: Marcos Shelton Date of : 1950 (home) [phone] (cell) ALLERGIES Allergen Reactions - Colesevelam Unknown - Nitrofurantoin Unknown - Penicillins Other: See Comments, Unknown - Hydrocortisone Unknown - Macrobid [Nitrofura* - Metolazone Unknown - Pravastatin Unknown - Sulfa (Sulfonamide * Unknown - Tramadol GI Upset Last Office Visit Date: 03/07/2021 Last [facility] Health Visit: Visit date not found Future Appointment: Visit date not found The patients preferred pharmacy has been captured for this encounter? no Louie Calles APRN.CNP Allergies As of Date: 05/27/2021 Noted Allergy Reaction COLESEVELAM 12/15/2018 16 - Unknown NITROFURANTOIN 12/15/2018 16 - Unknown PENICILLINS 02/18/2006 14 - Other: See Comments 16 - Unknown HYDROCORTISONE 11/06/2020 16 - Unknown MACROBID (NITROFURANTOIN MONOHYD/*02/18/2006 METOLAZONE 12/15/2018 16 - Unknown PRAVASTATIN 12/15/2018 16 - Unknown SULFA (SULFONAMIDE ANTIBIOTICS) 06/27/2012 16 - Unknown TRAMADOL 04/11/2019 8 - GI Upset Date Reviewed: 04/10/2021 Reviewed by: Veronique Baxter LPN - Fully Assessed Reason for Visit: Returning Patient's Call [[id number]] Prescriptions as of 05/27/2021 - promethazine-codeine 6.25-10 mg/5 mL syrup give 5 milliliters by mouth every 4 hours if needed for cough --NOT TO EXCEED 30 MLS PER 24 HOURS - azithromycin (ZITHROMAX) 250 mg tablet take 2 tablets by mouth on day 1 then 1 tablet daily until finished - DAPTOmycin (CUBICIN) 350 mg injection Inject 350 mg intravenously every 48 hours. - aspirin, enteric coated (ASPIRIN, ENTERIC COATED) 81 mg EC tablet q 24 HR. - cyclobenzaprine (FLEXERIL) 10 mg tablet Take 10 mg by mouth three times daily. - rosuvastatin (CRESTOR) 40 mg tablet Take 1 tablet by mouth once daily. - levETIRAcetam (KEPPRA) 500 mg tablet Take 500 mg by mouth twice daily. - cholecalciferol (VITAMIN D-3) 5,000 unit tab Take 5,000 Units by mouth once daily. - calcitriol (ROCALTROL) 0.25 mcg capsule Take 0.25 mcg by mouth once daily. - VITAMIN B-6 100 mg tablet take 1 tablet by mouth once daily - Multivitamin with Iron-Mineral tab Take 1 tablet by mouth once daily. - hydrOXYzine HCl (ATARAX) 25 mg tablet Take 25 mg by mouth every 6 hours as needed. - furosemide (LASIX) 40 mg tablet Take 40 mg by mouth. Wednesday, Wednesday and Wednesday - linaCLOtide (LINZESS) 290 mcg capsule Take 290 mcg by mouth as needed. PRN - omeprazole 40 mg capsule Take 40 mg by mouth once daily. - metoprolol tartrate, short acting, (LOPRESSOR) 25 mg tablet Take 25 mg by mouth once daily. - cyanocobalamin, vitamin B-12, (VITAMIN B-12 INJECTION) by INJECTION(UNSPECIFIED PARENTERAL ROUTES) route once every month. - temazepam 30 mg cap Take 30 mg by mouth daily at bedtime. - montelukast sodium(SINGULAIR 10 MG TAB) take one tablet by mouth daily - NITROGLYCERIN 0.4 MG SUBLINGUAL TAB Dissolve under the tongue every 5 minutes as needed. Usual dose for angina is 1 tablet every 5 minutes for maximum of 3 doses in 15 minutes. - ALBUTEROL 90 MCG/ACTUATION AEROSOL INHALER Inhale 1-2 Puffs as instructed every 4 hours as needed. SHAKE WELL BEFORE USING Problem List As Of Date 05/27/2021 Noted Resolved BENIGN HYPERTENSION [I10] MITRAL VALVE DISORDER [I05.9] HYPERLIPIDEMIA NEC/NOS [E78.5] RHEUMATOID ARTHRITIS [M06.9] Abdominal Pain, Right Upper Quadrant [R10.11] 09/05/2009 Early Satiety [R68.81] 09/05/2009 Loss of Weight [R63.4] 09/05/2009 Weakness of both lower limbs [R29.898] 06/02/2012 Postlaminectomy syndrome [M96.1] 06/02/2012 Disc degeneration, lumbar [M51.36] 06/27/2012 Paresthesia [R20.2] 06/27/2012 Pain in limb [M79.609] 06/27/2012 Anemia associated with chronic renal failure [N*01/02/2020 Spondylolisthesis, lumbar region [M43.16] 11/18/2020 Iron deficiency anemia due to chronic blood los*12/10/2020 Encounter Statu (more content not included)... [facility] CNOVon 03-07-2021 CNOV Office Visit (MARIETTAAGAK ) -- MARCOS SHELTON ([id number]) 1950 F Date Time Provider Department 03/07/21 8:00 AM SAMEER PEREZ During your visit today, we recorded the following information about you: Temperature Pulse Blood pressure Weight 97 degrees 60/minute 168/70 76.2 kg Height 1.626 m Sameer Perez MD 03/07/2021 8:27 AM Signed NEUROSURGERY FOLLOW UP OFFICE NOTE Sameer Perez MD Date of visit: March 07, 2021 Patient Name: Ms.Andra Farr Cat Date of : 1950 Current Age: [age] year old Sex: female MRN/E# [id number] Last Office Visit: 02/10/2021 Chief Complaint: Patient presents with: Established Patient SUBJECTIVE: Ms. Shelton presents to the office today for a routine follow up visit following removal of prior lumbar hardware d/t wound injections, with placement of wound vac and drain on 11/18/2020. She was last seen in the office on 01/17/2021 after placement of percutaneous ALEC drain placed by interventional radiology. She noted approximately 100cc of serosanguinous of drainage daily. She continued antibiotic treatment per infectious disease. She had her ALEC drain removed on 02/06/2021 and states that overall she continues to do well. She describes mainly low back pain especially with walking and standing. She also describes weakness and numbness in bilateral lower extremities, which is unchanged. She denies drainage or swelling around her incision or drain site. She presents today for evaluation and plan of care. Symptoms: low back pain with numbness and weakness in bilateral lower extremities PREVIOUS CONSERVATIVE TREATMENTS: IV antibiotics Percutaneous ALEC drain SURGERY:?lumbar prior?hardware removal d/t wound infection with placement of wound vac and drain?on 11/18/2020 ? Pre-Surgical Symptoms:?non healing lumbar wound, drainage PREVIOUS SURGERY: L2-S1 fusion per Dr. Twan Damian 2017 PAIN EVALUATION 03/07/2021 0753 Pain Level: 7 Pain Location: Back-Upper Description: Sharp;Aching Duration Units: Months Frequency: Intermittent Intervention/Comfort measure: Positioning PAST MEDICAL HISTORY Diagnosis Date - Abdominal pain, right upper quadrant - Acid reflux - Anemia associated with chronic renal failure 01/02/2020 - Asthma - Callaway's esophagus - CAD (coronary artery disease) - Constipation - Diverticulitis - Early satiety - Essential hypertension, benign - Fatigue - Heart disease - Hemorrhoids - Loss of weight - Mitral valve disorders(424.0) with prolapse, needs abx prophylaxis - Other and unspecified hyperlipidemia - PVD (peripheral vascular disease) (HCC) - Rheumatoid arthritis(714.0) - Seizure (HCC) - Wound dehiscence PAST SURGICAL HISTORY Procedure Laterality Date - APPENDECTOMY - BACK SURGERY HX 2009 lami and fusion L45 for spondylolisthesis - BACK SURGERY HX 10/2020 - CC PTCA STENT 2007, 2009 - COLONOS W/REM POLYP SNARE 09/05/2009 repeat in 1-2012 - EXCIS BREAST LESION rt - PAST SURGICAL HISTORY OF Left foot - PAST SURGICAL HISTORY OF Right shoulder - PAST SURGICAL HISTORY OF Right hip surgery - REVASCULARIZATION ILIAC ART ANGIOP EA IPSI VSL bilateral - REVISE MEDIAN N/CARPAL TUNNEL SURG x 2 Carpal tunnel decomp - TOTAL ABDOM HYSTERECTOMY Hysterectomy, AMALIA FAMILY HISTORY Problem Relation Age of Onset - Cancer Mother lung - Heart Mother - Hypertension Father - Heart Father - Prostate Cancer Father - Diabetes Brother - Diabetes Paternal Grandmother - Hypertension Paternal Grandmother ALLERGIES Allergen Reactions - Colesevelam Unknown - Nitrofurantoin Unknown - Penicillins Other: See Comments, Unknown - Hydrocortisone Unknown - Macrobid [Nitrofura* - Metolazone Unknown - Pravastatin Unknown - Sulfa (Sulfonamide * Unknown - Tramadol GI Upset Current Outpatient Medications Medication Sig Dispense Refill - promethazine-codeine 6.25-10 mg/5 mL syrup give 5 milliliters by mouth every 4 hours if needed for cough --NOT TO EXCEED 30 MLS PER 24 HOURS - azithromycin (ZITHROMAX) 250 mg tablet take 2 tablets by mouth on day 1 then 1 tablet daily until finished - DAPTOmycin (CUBICIN) 350 mg injection Inject 350 mg intravenously every 48 hours. - aspirin, enteric coated (ASPIRIN, ENTERIC COATED) 81 mg EC tablet q 24 HR. - cyclobenzaprine (FLEXERIL) 10 mg tablet Take 10 mg by mouth three times daily. - levETIRAcetam (KEPPRA) 500 mg tablet Take 500 mg by mouth twice daily. - cholecalciferol (VITAMIN D-3) 5,000 unit tab Take 5,000 Units by mouth once daily. - calcitriol (ROCALTROL) 0.25 mcg capsule Take 0.25 mcg by mouth once daily. - VITAMIN B-6 100 mg tablet take 1 tablet by mouth once daily 100 tablet 2 - Multivitamin with Iron-Mineral tab Take 1 tablet by mouth once daily. 100 tablet 2 - hydrOXYzine HCl (ATARAX) 25 mg tablet (more content not included)... [facility] Irene 02-10-2021 CASEY Telephone (JOSE ANGEL) -- MARCOS SHELTON ([id number]) 1950 F Date Time Provider Department 02/10/21 SAMEER PEREZ During your visit today, we recorded the following information about you: Dory Das RN 02/10/2021 2:16 PM Signed Ms. Shelton called into the office and left a voicemail requesting a return call. I called her back and got her voicemail. I left her a HIPPA complaint voicemail asking her to please return my call. Will await return call at this time. REN Quevedo RN 02/10/2021 3:59 PM Signed Ms. Shelton returned my call and would like to know if she can receive the COVID-19 vaccination ([place] AND [place]) I explained to her that from a neurosurgical standpoint she should be at least one week post op, therefore she may proceed with the vaccine. However, given her recent history of infection, I encouraged her to contact infectious disease and make sure that they agree with this. She was agreeable and will do so. Additionally, she states she had her drain pulled last week and she was advised to follow up with Dr. Perez. I told her that I would have Serena contact her tomorrow to make an appointment for February. She was appreciative. Dory Das RN Allergies As of Date: 02/10/2021 Noted Allergy Reaction COLESEVELAM 12/15/2018 16 - Unknown NITROFURANTOIN 12/15/2018 16 - Unknown PENICILLINS 02/18/2006 14 - Other: See Comments 16 - Unknown HYDROCORTISONE 11/06/2020 16 - Unknown MACROBID (NITROFURANTOIN MONOHYD/*02/18/2006 METOLAZONE 12/15/2018 16 - Unknown PRAVASTATIN 12/15/2018 16 - Unknown SULFA (SULFONAMIDE ANTIBIOTICS) 06/27/2012 16 - Unknown TRAMADOL 04/11/2019 8 - GI Upset Date Reviewed: 02/06/2021 Reviewed by: Stacey Miller RN - Fully Assessed Reason for Visit: Patient Question [9767] Prescriptions as of 02/10/2021 Sig: DAPTOMYCIN 350 MG INTRAVENOUS* Inject 350 mg intravenously e* Patient not taking: Reported on 01/17/2021 ASPIRIN 81 MG TABLET,DELAYED * q 24 HR. CYCLOBENZAPRINE 10 MG TABLET Take 10 mg by mouth three warren* ROSUVASTATIN 40 MG TABLET Take 1 tablet by mouth once d* LEVETIRACETAM 500 MG TABLET Take 500 mg by mouth twice da* CHOLECALCIFEROL (VITAMIN D3) * Take 5,000 Units by mouth onc* CALCITRIOL 0.25 MCG CAPSULE Take 0.25 mcg by mouth once d* VITAMIN B-6 100 MG TABLET take 1 tablet by mouth once d* MULTIVITAMIN WITH IRON-MINERA* Take 1 tablet by mouth once d* HYDROXYZINE HCL 25 MG TABLET Take 25 mg by mouth every 6 h* FUROSEMIDE 40 MG TABLET Take 40 mg by mouth. Wednesday, * LINACLOTIDE 290 MCG CAPSULE Take 290 mcg by mouth as need* OMEPRAZOLE 40 MG CAPSULE,LEANNE* Take 40 mg by mouth once bk* METOPROLOL TARTRATE 25 MG TAB* Take 25 mg by mouth once bk* VITAMIN B-12 INJECTION by INJECTION(UNSPECIFIED PARE* * TEMAZEPAM 30 MG CAPSULE Take 30 mg by mouth daily at * * SINGULAIR 10 MG TABLET take one tablet by mouth daily * NITROGLYCERIN 0.4 MG SUBLINGU* Dissolve under the tongue gina* * ALBUTEROL 90 MCG/ACTUATION AE* Inhale 1-2 Puffs as instructe* Problem List As Of Date 02/10/2021 Noted Resolved BENIGN HYPERTENSION [I10] MITRAL VALVE DISORDER [I05.9] HYPERLIPIDEMIA NEC/NOS [E78.5] RHEUMATOID ARTHRITIS [M06.9] Abdominal Pain, Right Upper Quadrant [R10.11] 09/05/2009 Early Satiety [R68.81] 09/05/2009 Loss of Weight [R63.4] 09/05/2009 Weakness of both lower limbs [R29.898] 06/02/2012 Postlaminectomy syndrome [M96.1] 06/02/2012 Disc degeneration, lumbar [M51.36] 06/27/2012 Paresthesia [R20.2] 06/27/2012 Pain in limb [M79.609] 06/27/2012 Anemia associated with chronic renal failure [N*01/02/2020 Spondylolisthesis, lumbar region [M43.16] 11/18/2020 Iron deficiency anemia due to chronic blood los*12/10/2020 Encounter Status:Closed by DORY DAS on 02/10/21 [facility] ALLIED HEALTHon 02-06-2021 ALLIED HEALTH HNO ID: [id number] Author: RT Lisa(R) Service: Radiology Author Type: Management Lecturer Type: Allied Health Filed: 02/06/2021 2:18 PM Note Text: Radiology Service Progress Note PATIENT NAME: Marcos Shelton DATE OF SERVICE: February 06, 2021 TIME: 2:16 PM PATIENT IDENTITY VERIFICATION COMPLETED USING TWO (2) IDENTIFIERS: Name and Date of confirmed by patient verbally. FALL SCREENING: Has the patient had 2 falls in the last year or 1 fall with injury or currently using an Ambulatory Assistive Device (Walker, Cane, Wheelchair, Crutches, etc.)? No PATIENT GENDER DATA: Female. status: : No status: NO. PATIENT RELEVANT IMPLANT DATA REVIEWED: Not Applicable RADIOLOGY DEPARTMENT: Interventional Radiology PERIPHERAL IV DATA: Not applicable SIGNED BY: RT Lisa(R) February 06, 2021 2:16 PM [facility] BRIEF OP NOTon 02-06-2021 BRIEF OP NOT HNO ID: [id number] Author: Zina Mcmillan MD Service: Interventional Radiology Author Type: Physician Type: Brief Op Note Filed: 02/06/2021 2:08 PM Note Text: BRIEF OPERATIVE / PROCEDURE NOTE LOG ID: [id number] SURGERY/PROCEDURE DATE: 02/06/2021 INCISION/PROCEDURE START TIME: 2:04 PM INCISION CLOSE/PROCEDURE END TIME: 2:06 PM SURGEON(S)/PROCEDURALIST(S ) AND PROPERTY ADMINISTRATOR(S): Surgeon(s) and Role: * Zina Mcmillan MD - Primary No Additional Staff SURGERY/PROCEDURE(S): Abscessogram and drain removal ANESTHESIA: Local FINDINGS: Collapsed cavity. Drain removed. ESTIMATED BLOOD LOSS: Minimal SPECIMENS: None COMPLICATIONS: None PRE-OP/PRE-PROCEDURE DIAGNOSIS: Abscess POST-OP/POST-PROCEDURE DIAGNOSIS: Resolved SIGNATURE: Zina Mcmillan MD PATIENT NAME: Marcos Shelton DATE: February 06, 2021 TIME: 2:07 PM [facility] IR INJ FOR ASSESSMENT IWONA Heath ATHon 02-06-2021 IR INJ FOR ASSESSMENT IWONA JAIMES * * *Final Report* * * DATE OF EXAM: Feb 06 2021 2:15PM [id number] - IR INJ FOR ASSESSMENT IWONA CATH / PROCEDURE REASON: assess abscess drain * * * * Physician Interpretation * * * * EXAM TITLE: FLUOROSCOPICALLY GUIDED ABSCESSOGRAM WITH REMOVAL OF DRAINAGE CATHETER DATE: 02/06/2021 COMPARISON: 01/29/2021 CLINICAL INDICATION/HISTORY: The patient is a 70-year-old female with abscess in the posterior lower back. TECHNIQUE: Under fluoroscopic guidance contrast was injected through the abscess drain and after imaging, as much of the contrast was removed as possible. The catheter was cut and removed and a pressure dressing was applied to the skin entrance site. Fluoroscopic Radiation Summary: Plane A, Air Kerma: 9.0 mGy Fluoro time: 0:42 min:sec Contrast Media 1: cavity administration of 5 ml of OMNIPAQUE 300 FINDINGS: The abscess cavity is contracted around the pigtail of the catheter. With further injection contrast backs up along the catheter tract. IMPRESSION: Successful decompression of abscess cavity. Technically successful removal of drainage catheter. Presentation Team Member: PSCB Transcribe Date/Time: Feb 06 2021 4:15P Dictated by : ZINA MCMILLAN MD This examination was interpreted and the report reviewed and electronically signed by: ZINA MCMILLAN MD on Feb 06 2021 4:16PM EST [id number] [facility] ALLIED HEALTHon 01-29-2021 ALLIED HEALTH HNO ID: [id number] Author: Kennedy Gerardo Service: Radiology Author Type: Management Lecturer Type: Allied Health Filed: 01/29/2021 2:57 PM Note Text: Radiology Service Progress Note PATIENT NAME: Marcos Shelton DATE OF SERVICE: January 29, 2021 TIME: 2:56 PM PATIENT IDENTITY VERIFICATION COMPLETED USING TWO (2) IDENTIFIERS: Name and Date of confirmed by patient verbally. FALL SCREENING: Has the patient had 2 falls in the last year or 1 fall with injury or currently using an Ambulatory Assistive Device (Walker, Cane, Wheelchair, Crutches, etc.)? No PATIENT GENDER DATA: Female. status: : No status: NO. PATIENT RELEVANT IMPLANT DATA REVIEWED: Not Applicable RADIOLOGY DEPARTMENT: Interventional Radiology PERIPHERAL IV DATA: Not applicable SIGNED BY: Kennedy Gerardo January 29, 2021 2:56 PM [facility] EXCHANGE ABSCESS/CYST CATHET Rosalio 01-29-2021 EXCHANGE ABSCESS/CYST CATHETER * * *Final Report* * * DATE OF EXAM: Jan 29 2021 2:00PM [facility] 2023 - EXCHANGE ABSCESS/CYST CATHETER / PROCEDURE REASON: Abscess * * * * Physician Interpretation * * * * PROCEDURE: FLUOROSCOPIC GUIDED ABSCESSOGRAM WITH PERCUTANEOUS DRAIN EXCHANGE DATE: 01/29/2021 2:00 PM INDICATION: Chronic fluid collection within the posterior lumbar soft tissues, status post percutaneous drainage catheter placement on 01/08/2021. ENCOUNTER: Initial COMPARISON: 01/15/2021. TECHNIQUE: The procedure was performed in the VIR Suite following informed consent and a Time Out. Informed consent was previously obtained from the patient. Patient monitoring: Supervised observer Patient was placed in prone position on the table. Indwelling percutaneous drain was injected with contrast and images were saved to the PACS system. Drainage catheter cope loop was noted to be at the periphery of the fluid collection. Therefore, decision was made to change the drainage catheter. 2% lidocaine was injected for local anesthesia. The indwelling drain was cut at the skin site and removed over stiff Glidewire. New 12 Austrian percutaneous catheter was then placed with cope loop formed within the residual abscess cavity. Contrast was injected to confirm appropriate positioning. Drain was placed to bulb suction and secured to the skin with 2-0 Ethilon suture. No immediate complication was noted. Fluoro time: 0:54 min:sec Plane A, Air Kerma: 8.0 mGy 3 fluoroscopic images were obtained and placed in the PACS system. FINDINGS: Indwelling percutaneous drainage catheter at the periphery of residual abscess cavity. The abscess cavity was decreased in size, since previous examination. Successful exchange/repositioning of drainage catheter. New 12 Austrian percutaneous catheter placed within the residual abscess cavity. IMPRESSION: Decrease in size of abscess cavity. Successful repositioning/exchange of percutaneous drainage catheter with new catheter placed within the residual fluid collection. Plan for repeat abscessogram in one week. Presentation Team Member: TARA Transcribe Date/Time: Jan 29 2021 4:12P Dictated by : ELVIS ELMORE MD This examination was interpreted and the report reviewed and electronically signed by: ELVIS ELMORE MD on Jan 29 2021 4:48PM EST [id number] [facility] ALLIED HEALTHon 01-23-2021 ALLIED HEALTH HNO ID: [id number] Author: RT Lisa(R) Service: Radiology Author Type: Management Lecturer Type: Allied Health Filed: 01/23/2021 10:14 AM Note Text: Radiology Service Progress Note PATIENT NAME: Marocs Shelton DATE OF SERVICE: January 23, 2021 TIME: 10:13 AM PATIENT IDENTITY VERIFICATION COMPLETED USING TWO (2) IDENTIFIERS: Name and Date of confirmed by patient verbally. FALL SCREENING: Has the patient had 2 falls in the last year or 1 fall with injury or currently using an Ambulatory Assistive Device (Walker, Cane, Wheelchair, Crutches, etc.)? No PATIENT GENDER DATA: Female. status: : No status: NO. PATIENT RELEVANT IMPLANT DATA REVIEWED: Not Applicable RADIOLOGY DEPARTMENT: Interventional Radiology PERIPHERAL IV DATA: Not applicable SIGNED BY: RT Lisa(R) January 23, 2021 10:13 AM [facility] BRIEF OP NOTon 01-23-2021 BRIEF OP NOT HNO ID: [id number] Author: Mikey Kemp MD Service: Vascular Surgery Author Type: Physician Type: Brief Op Note Filed: 01/23/2021 10:06 AM Note Text: VASCULAR INTERVENTIONAL POST PROCEDURE NOTE DATE: 01/23/21 NAME: Marcos Shelton LOG ID: [id number] Pre-Procedure Diagnosis: Patient done with antibiotic therapy Post Procedure Diagnosis: Same. Quality Eng: Dr. Mikey Kemp (Primary) Procedure: Removal right internal jugular tunneled PICC line Anesthesia: None Findings: Catheter removed with cuff intact Estimated Blood Loss: Minimal (Less Than 25 mL). Specimen: None. Complications: None. Full report with procedural details to follow and will become available under Imaging Reports. Please contact for any questions or concerns. Mikey Kemp MD Vascular Surgery Beeper [phone] [facility] IR REMOVAL TUNN DIALYSIS/PIC Con 01-23-2021 IR REMOVAL TUNN DIALYSIS/PICC * * *Final Report* * * DATE OF EXAM: Jan 23 2021 10:11AM [facility]23 - IR REMOVAL TUNN DIALYSIS/PICC / PROCEDURE REASON: abscess * * * * Physician Interpretation * * * * EXAM TITLE: REMOVAL OF TUNNELED CENTRAL CATHETER: EXAM DATE:01/23/2021 The procedure was performed by Mikey Kemp M.D. in the radiology suite. REASON FOR EXAM: Patient done with antibiotic therapy All elements of maximal barrier technique including cap and mask, sterile down, sterile gloves, a large sterile drape, hand hygiene and appropriate prep agents for cutaneous antisepsis were utilized and maintained during the procedure. The right sided tunneled catheter was bluntly dissected free from the surrounding tissue , and then removed with tip intact. Given the short duration of the catheter no specific local anesthesia was required. Hemostasis was achieved and the site Steri-Stripped and bandaged. IMPRESSION: Successful removal of tunneled central catheter. Presentation Team Member: PSCB Transcribe Date/Time: Jan 23 2021 12:03P Dictated by : MIKEY KEMP MD This examination was interpreted and the report reviewed and electronically signed by: MIKEY KEMP MD on Jan 23 2021 12:04PM EST [id number] [facility] CNOVon 01-17-2021 CNOV Office Visit (JOSE ANGEL ) -- MARCOS SHELTON ([id number]) 1950 F Date Time Provider Department 01/17/21 7:30 AM SAMEER PEREZ During your visit today, we recorded the following information about you: Temperature Pulse Respiration Blood pressure 97.7 degrees 72/minute 16/minute 149/63 Weight Height 78 kg 1.626 m Sameer Perez MD 01/17/2021 8:10 AM Signed NEUROSURGERY POST-OP NOTE Sameer Perez MD Date of visit: January 17, 2021 Patient Name: Ms.Andra Chika Shelton Date of : 1950 Current Age: [age] year old Sex: female MRN/E# [id number] Last Office Visit: 12/30/2020 SURGERY:?lumbar prior?hardware removal d/t wound infection with placement of wound vac and drain?on 11/18/2020 ? Pre-Surgical Symptoms:?non healing lumbar wound, drainage ? Patient is having their 2 month post operative visit. She was last seen on 12/22/2020 with complaints of pain in the left hip and difficulty with ambulation. She noted a region to the left of her incision that was tender and raised. She was sent for an MRI of the lumbar spine which demonstrated loculated septated fluid collection dorsal to the posterior spinous process with extensive surrounding edema extending from L2-S2. She was sent to intervention radiology for a percutaneous drainage of this fluid. Today she states overall her symptoms are improving. She has a ALEC drain that she states is draining serosanguinous fluid, and is emptying about 25cc 4-5 times a day. She continues to be treated with antibiotics per infectious disease. She states her IV antibiotics were discontinued yesterday and she follows up with ID on January 23. She presents for evaluation and plan of care. Incision: Dry and intact, without redness Current Outpatient Medications Medication Sig Dispense Refill - aspirin, enteric coated (ASPIRIN, ENTERIC COATED) 81 mg EC tablet q 24 HR. - cyclobenzaprine (FLEXERIL) 10 mg tablet Take 10 mg by mouth three times daily. - levETIRAcetam (KEPPRA) 500 mg tablet Take 500 mg by mouth twice daily. - cholecalciferol (VITAMIN D-3) 5,000 unit tab Take 5,000 Units by mouth once daily. - calcitriol (ROCALTROL) 0.25 mcg capsule Take 0.25 mcg by mouth once daily. - VITAMIN B-6 100 mg tablet take 1 tablet by mouth once daily 100 tablet 2 - Multivitamin with Iron-Mineral tab Take 1 tablet by mouth once daily. 100 tablet 2 - hydrOXYzine HCl (ATARAX) 25 mg tablet Take 25 mg by mouth every 6 hours as needed. - linaCLOtide (LINZESS) 290 mcg capsule Take 290 mcg by mouth as needed. - omeprazole 40 mg capsule Take 40 mg by mouth once daily. - metoprolol tartrate, short acting, (LOPRESSOR) 25 mg tablet Take 25 mg by mouth once daily. - cyanocobalamin, vitamin B-12, (VITAMIN B-12 INJECTION) by INJECTION(UNSPECIFIED PARENTERAL ROUTES) route once every month. - temazepam 30 mg cap Take 30 mg by mouth daily at bedtime. - montelukast sodium(SINGULAIR 10 MG TAB) take one tablet by mouth daily 0 - NITROGLYCERIN 0.4 MG SUBLINGUAL TAB Dissolve under the tongue every 5 minutes as needed. Usual dose for angina is 1 tablet every 5 minutes for maximum of 3 doses in 15 minutes. 0 - ALBUTEROL 90 MCG/ACTUATION AEROSOL INHALER Inhale 1-2 Puffs as instructed every 4 hours as needed. SHAKE WELL BEFORE USING 0 - DAPTOmycin (CUBICIN) 350 mg injection Inject 350 mg intravenously every 48 hours. (Patient not taking: Reported on 01/17/2021 ) - [START ON 01/27/2021] rosuvastatin (CRESTOR) 40 mg tablet Take 1 tablet by mouth once daily. 30 tablet 0 - furosemide (LASIX) 40 mg tablet Take 40 mg by mouth every 48 hours. No current facility-administered medications for this visit. Review of Systems Constitutional: Negative for chills, diaphoresis and fever. HENT: Negative for congestion, ear pain and sinus pressure. Eyes: Negative for discharge and redness. Respiratory: Negative for cough, shortness of breath and wheezing. Cardiovascular: Positive for leg swelling. Negative for chest pain and palpitations. Gastrointestinal: Negative for constipation, diarrhea and nausea. Endocrine: Negative for cold intolerance and heat intolerance. Genitourinary: Negative for difficulty urinating, frequency and urgency. Musculoskeletal: Positive for back pain and gait problem. Negative for neck pain. Skin: Negative for rash and wound. Allergic/Immunologic: Negative for environmental allergies and food allergies. Neurological: Positive for weakness. Negative for dizziness and numbness. Hematological: Bruises/bleeds easily. Psychiatric/Behavioral: Negative for agitation. The patient is not nervous/anxious. PAIN EVALUATION No data found in the last 1 encounters. PHYSICAL EXAM: WOUND ASSESSMENT: Incision healing 1. Vertebral osteomyelitis (HCC) Patient returns today for follow-up. She has a ALEC drain in place. This is being managed by inte (more content not included)... [facility] IR INJ FOR ASSESSMENT IWONA Heath ATHon 01-15-2021 IR INJ FOR ASSESSMENT IWONA CATH * * *Final Report* * * DATE OF EXAM: Jan 15 2021 12:58PM GILBERTO [id number] - IR INJ FOR ASSESSMENT IWONA CATH / PROCEDURE REASON: cath not draining * * * * Physician Interpretation * * * * PROCEDURE: FLUOROSCOPIC GUIDED ABSCESSOGRAM DATE: 01/15/2021 12:58 PM INDICATION: Chronic fluid collection within the posterior lumbar soft tissues, status post percutaneous drainage catheter placement on 01/08/2021. Patient reports diminished output from the drainage catheter. ENCOUNTER: Initial COMPARISON: Images from percutaneous drainage catheter placement performed on 01/08/2021. MRI examination the lumbar spine without contrast from outside hospital dated 12/20/2020. TECHNIQUE: Patient was brought to the angiography suite and placed in supine position on the angiography table. The indwelling percutaneous drain was injected with water-soluble contrast and fluoroscopic images were saved and placed in the PACS system. Catheter was irrigated multiple times with 10 cc sterile saline. After irrigation and aspiration, 20 cc of fluid containing 18 cc sterile saline and 2 mg TPA was injected to to dwell for 1 hour within the fluid collection. No immediate complication was noted. Fluoro time: 0:12 min:sec Plane A, Air Kerma: 5.0 mGy 2 fluoroscopic images were obtained and placed in the PACS system. FINDINGS: No significant interval change regarding positioning of indwelling percutaneous drainage catheter. Persistent abscess cavity in the region the percutaneous drainage catheter. Successful irrigation and aspiration of the abscess cavity with subsequent injection of 20 cc solution containing 2 mg TPA to dwell for one hour. IMPRESSION: No significant interval change regarding positioning of indwelling percutaneous drainage catheter. Persistent fluid/abscess cavity within the lumbar spine soft tissues. Successful drain irrigation and injection of tPA solution to assist with fluid removal, as described above. Presentation Team Member: PSCB Transcribe Date/Time: Jan 15 2021 2:02P Dictated by : ELVIS ELMORE MD This examination was interpreted and the report reviewed and electronically signed by: ELVIS ELMORE MD on Jan 15 2021 2:04PM EST [id number] [facility] BRIEF OP NOTon 01-08-2021 BRIEF OP NOT HNO ID: [id number] Author: Elvis Elmore MD Service: Radiology Author Type: Physician Type: Brief Op Note Filed: 01/08/2021 3:12 PM Note Text: INTERVENTIONAL RADIOLOGY POST PROCEDURE NOTE DATE: 01/08/21 NAME: Marcos Shelton LOG ID: [id number] Pre-Procedure Diagnosis: Lumbar soft tissue fluid collection, ? abscess Post Procedure Diagnosis: Same. Quality Eng: Dr. Elvis Elmore Procedure: Image guided placement of percutaneous drainage catheter into lumbar fluid collection Anesthesia: Moderate sedation Findings: Successful placement of 12 Austrian percutaneous drainage catheter into lumbar soft tissue fluid collection. 25 cc serosanguinous fluid aspirated. Estimated Blood Loss: Minimal (Less Than 25 mL). Specimen: 5 cc fluid aspirated for culture Complications: None Full report with procedural details to follow and will become available under Imaging Reports. Please contact for any questions or concerns. SIGNATURE: Elvis Elmore MD PATIENT NAME: Marcos Shelton DATE: January 08, 2021 TIME: 3:10 PM PAGER/CONTACT #: [facility] Bacteria Fld Culton 01-09-20 21 Bacteria identified Cx Nom (Body fld) CULTURE, BODY FLD: No growth 5 days GRAM STAIN: No organisms seen No WBCs seen [facility] Comment on above: Performed By: #### 6 11-4 #### [facility] CLIA [id number] [address] [place] [address] HISTORY PHYSICALon 1 HISTORY PHYSICAL HNO ID: [id number] Author: Elvis Elmore MD Service: Radiology Author Type: Physician Type: HANDP Filed: 01/08/2021 2:35 PM Note Text: UPDATED HISTORY AND PHYSICAL EXAMINATION SERVICE DATE: 01/08/2021 SERVICE TIME: 2:35 PM PHYSICAL EXAM MUST BE COMPLETED ON ADMISSION The History and Physical (completed in the past 30 days) has been reviewed and the patient has been examined. The contents accurately reflect the patient's condition with the following additions or revisions since the HANDP was completed. Examination indicates no changes. This HANDP can be found in the Electronic Medical Record dated 12/25/20. SIGNATURE: Elvis Elmore MD PATIENT NAME: Marcos Shelton DATE: January 08, 2021 TIME: 2:35 PM PAGER: [facility] IR ABSCESS DRAIN PLACEMENTon 01-08-2021 IR ABSCESS DRAIN PLACEMENT * * *Final Report* * * DATE OF EXAM: Jan 08 2021 3:48PM GILBERTO Gallardo51 - IR ABSCESS DRAIN PLACEMENT / PROCEDURE REASON: osteomylitis * * * * Physician Interpretation * * * * PROCEDURE: ULTRASOUND AND FLUOROSCOPIC GUIDED PERCUTANEOUS DRAIN PLACEMENT DATE: 01/08/2021 3:48 PM INDICATION: Indeterminate chronic fluid collection within the posterior lumbar soft tissues, status post lumbar spine surgery. ENCOUNTER: Initial COMPARISON: MRI examination of the lumbar spine without contrast dated 12/20/2020. TECHNIQUE/FINDINGS: The procedure was performed in the VIR Suite following informed consent and a Time Out. Informed consent was obtained from the patient. The patient was evaluated for the safety and appropriateness of conscious sedation and the Moderate Sedation Record was completed. The patient was sedated with intravenous Fentanyl and Versed administered by the radiology nurses. Please refer to nursing notes for medication dosages. The patient's vital signs were monitored during the procedure by the radiology nurses. Total intraservice time (monitoring for moderate sedation) was 15 minutes. Patient monitoring: Supervised observer Ultrasound examination was performed to identify the fluid collection. Ultrasound images were saved in place in the PACS system. Skin site for percutaneous drain placement was marked. The area was then prepped using all elements of maximal sterile barrier technique, hand hygiene, skin preparation fashion. 2% lidocaine was injected for local anesthesia. Using ultrasound guidance, Yueh sheathed needle was advanced into the collection. A Amplatz stiff guidewire was was then advanced via the Yueh catheter into the fluid collection. Following serial dilation, a 12 Austrian percutaneous drain was then placed. Fluoroscopy was performed to confirm drain positioning. 25 cc serosanguineous fluid was aspirated. Drain was placed to bulb suction. Fluid specimen sent for culture. Fluid sample was aspirated and specimen was sent for culture and analysis. No immediate complication was noted. Fluoro time: 0:36 min:sec Plane A, Air Kerma: 7.0 mGy 2 fluoroscopic images were obtained and placed in the PACS system. FINDINGS: Complex heterogeneous, primarily hypoechoic fluid collection within the lumbar spine soft tissues, superficial to the lumbar spine. Successful placement of 12 Austrian percutaneous drainage catheter into the fluid collection. 25 cc of serosanguineous fluid was aspirated. IMPRESSION: Successful placement of a 12 Austrian percutaneous drain into posterior lumbar soft tissue fluid collection, as described. Plan for abscessogram in one week. Presentation Team Member: PSCB Transcribe Date/Time: Jan 08 2021 6:17P Dictated by : ELVIS ELMORE MD This examination was interpreted and the report reviewed and electronically signed by: ELVIS ELMORE MD on Jan 08 2021 6:19PM EST [id number] [facility] PTH, [place] 01-05-2021 PTH, Intact 83 pg/mL High 15-65 [facility] Comment on above: Performed By: #### P THI #### [facility] Routine Lab [address] [address] OBSOLETEon 12-30-2020 OBSOLETE Refill (NUAGAK) -- MARCOS SHELTON ([id number]) 1950 F Date Time Provider Department 12/30/20 ADRIANA TYLER During your visit today, we recorded the following information about you: Dory Das RN 12/30/2020 11:49 AM Signed Patient called requesting the following refill Refill(s) Requested: Pending Prescriptions Disp Refills OXYCODONE-ACETAMINOPHEN 5 MG-325 MG TABLET 28 tablet 0 Sig: Take 1 tablet by mouth every 6 hours as needed for Pain (acute post-op pain) for up to 7 days. MIRANDA Class: C-II LORRAINE: No ALLERGIES Allergen Reactions - Colesevelam Unknown - Nitrofurantoin Unknown - Penicillins Other: See Comments, Unknown - Hydrocortisone Unknown - Macrobid [Nitrofura* - Metolazone Unknown - Pravastatin Unknown - Sulfa (Sulfonamide * Unknown - Tramadol GI Upset (home) [phone] (cell) Last Office Visit Date: 12/25/2020 Last [facility] Health Visit: Visit date not found Future Appointment: 01/17/2021 The patients preferred pharmacy has been captured for this encounter? yes Request is for script(s) to be escript to pharmacy. REN Quevedo APRN.EQUITY RESEARCH ANALYST 12/30/2020 12:58 PM Signed Patient requesting refill of pain ?Medication. S/p lumbar prior hardware removal d/t wound infection with placement of wound vac and drain on 11/18/2020. Awaiting interventional radiology drainage. Thank you! Dory Das RN Thanks Kvng Moss for refill on pain medication. Patient is taking for postoperative pain and is due at this time. OARRS reviewed. All prescriptions have been APPROPRIATELY filled. No suspicious activity was identified. Prescription approved, e-prescribed. Adriana Tyler APRN, EQUITY RESEARCH ANALYST Neurosurgery Nurse Practitioner Allergies As of Date: 12/30/2020 Noted Allergy Reaction COLESEVELAM 12/15/2018 16 - Unknown NITROFURANTOIN 12/15/2018 16 - Unknown PENICILLINS 02/18/2006 14 - Other: See Comments 16 - Unknown HYDROCORTISONE 11/06/2020 16 - Unknown MACROBID (NITROFURANTOIN MONOHYD/*02/18/2006 METOLAZONE 12/15/2018 16 - Unknown PRAVASTATIN 12/15/2018 16 - Unknown SULFA (SULFONAMIDE ANTIBIOTICS) 06/27/2012 16 - Unknown TRAMADOL 04/11/2019 8 - GI Upset Date Reviewed: 12/25/2020 Reviewed by: Sameer Perez MD - Fully Assessed Reason for Visit: Refill Request [94] Visit Diagnosis:Spondylolisthesi s, lumbar region [M43.16] Order(s):oxyCODONE-acetami nophen (PERCOCET) 5-325 mg tabletTake 1 tablet by mouth every 6 hours as needed for Pain (acute post-op pain) for up to 7 days.Disp: 28 tabletRfl: 0 Prescriptions as of 12/30/2020 Sig: OXYCODONE-ACETAMINOPHEN 5 MG-* Take 1 tablet by mouth every * ASPIRIN 81 MG TABLET,DELAYED * q 24 HR. CYCLOBENZAPRINE 10 MG TABLET Take 10 mg by mouth three warren* ROSUVASTATIN 40 MG TABLET Take 1 tablet by mouth once d* DAPTOMYCIN IVPB IN NS 50 ML Inject 500 mg intravenously e* LEVETIRACETAM 500 MG TABLET Take 500 mg by mouth twice da* CHOLECALCIFEROL (VITAMIN D3) * Take 5,000 Units by mouth onc* CALCITRIOL 0.25 MCG CAPSULE Take 0.25 mcg by mouth once d* VITAMIN B-6 100 MG TABLET take 1 tablet by mouth once d* MULTIVITAMIN WITH IRON-MINERA* Take 1 tablet by mouth once d* HYDROXYZINE HCL 25 MG TABLET Take 25 mg by mouth every 6 h* FUROSEMIDE 40 MG TABLET Take 40 mg by mouth every 48 * LINACLOTIDE 290 MCG CAPSULE Take 290 mcg by mouth as need* OMEPRAZOLE 40 MG CAPSULE,LEANNE* Take 40 mg by mouth once bk* METOPROLOL TARTRATE 25 MG TAB* Take 25 mg by mouth once bk* VITAMIN B-12 INJECTION by INJECTION(UNSPECIFIED PARE* * TEMAZEPAM 30 MG CAPSULE Take 30 mg by mouth daily at * * SINGULAIR 10 MG TABLET take one tablet by mouth daily * NITROGLYCERIN 0.4 MG SUBLINGU* Dissolve under the tongue gina* * ALBUTEROL 90 MCG/ACTUATION AE* Inhale 1-2 Puffs as instructe* Problem List As Of Date 12/30/2020 Noted Resolved BENIGN HYPERTENSION [I10] MITRAL VALVE DISORDER [I05.9] HYPERLIPIDEMIA NEC/NOS [E78.5] RHEUMATOID ARTHRITIS [M06.9] Abdominal Pain, Right Upper Quadrant [R10.11] 09/05/2009 Early Satiety [R68.81] 09/05/2009 Loss of Weight [R63.4] 09/05/2009 Weakness of both lower limbs [R29.898] 06/02/2012 Postlaminectomy syndrome [M96.1] 06/02/2012 Disc degeneration, lumbar [M51.36] 06/27/2012 Paresthesia [R20.2] 06/27/2012 Pain in limb [M79.609] 06/27/2012 Anemia associated with chronic renal failure [N*01/02/2020 Spondylolisthesis, lumbar region [M43.16] 11/18/2020 Iron deficiency anemia due to chronic blood los*12/10/2020 Prescriptions ordered this encounter Disp Refills Start End OXYCODONE-ACETAMINOPHEN 5 MG-325 MG * 28 t* 0 12/30/2020 01/06/2021 Route: ORAL Sig: Take 1 tablet by mouth every 6 hours as needed for Pain (acute post-op pain) for up to 7 days. Medications Discontinued During This Encounter Prescriptions - oxyCODONE-acetaminophen (PERCOCET) 5-325 mg tablet (more content not included)... [facility] CNOVon 12-25-2020 CNOV Office Visit (JOSE ANGEL ) -- MARCOS SHELTON ([id number]) 1950 F Date Time Provider Department 12/25/20 8:15 AM SAMEER PEREZ During your visit today, we recorded the following information about you: Temperature Pulse Respiration Blood pressure 98.3 degrees 81/minute 16/minute 148/66 Weight Height 76.7 kg 1.626 m Sameer Perez MD 12/25/2020 8:37 AM Signed NEUROSURGERY POST-OP NOTE Sameer Perez MD Date of visit: December 25, 2020 Patient Name: Ms.Andra Chika Shelton Date of : 1950 Current Age: [age] year old Sex: female MRN/E# [id number] Last Office Visit: 12/18/2020 SURGERY:?lumbar prior?hardware removal d/t wound infection with placement of wound vac and drain?on 11/18/2020 ? Pre-Surgical Symptoms:?non healing lumbar wound, drainage Ms. Shelton presents to the office today for a follow up visit with imaging for low back pain. She was last seen on 12/18/2020 and noted concerning new pain in the left hip and difficulty with ambulation. She noted a hardness to the left of the incision without redness, swelling, or drainage. She was sent for an MRI of the lumbar spine and wound center. Today she states pain has improved a bit with pain medication. She continues to be on IV antibiotics scheduled to continue until January [address] Dobbs. She denies any drainage from her incision or severe pain. She presents for image review, evaluation and plan of care. Incision: [employer] with a 2 small areas of concern. One toward the top of the incision appears crusted, one open more inferior without drainage. Current Outpatient Medications Medication Sig Dispense Refill - aspirin, enteric coated (ASPIRIN, ENTERIC COATED) 81 mg EC tablet q 24 HR. - cyclobenzaprine (FLEXERIL) 10 mg tablet Take 10 mg by mouth three times daily. - DAPTOmycin 500 mg in NaCl 0.9% 50 mL (CUBICIN) Inject 500 mg intravenously every 48 hours. - levETIRAcetam (KEPPRA) 500 mg tablet Take 500 mg by mouth twice daily. - cholecalciferol (VITAMIN D-3) 5,000 unit tab Take 5,000 Units by mouth once daily. - calcitriol (ROCALTROL) 0.25 mcg capsule Take 0.25 mcg by mouth once daily. - VITAMIN B-6 100 mg tablet take 1 tablet by mouth once daily 100 tablet 2 - hydrOXYzine HCl (ATARAX) 25 mg tablet Take 25 mg by mouth every 6 hours as needed. - furosemide (LASIX) 40 mg tablet Take 40 mg by mouth every 48 hours. - linaCLOtide (LINZESS) 290 mcg capsule Take 290 mcg by mouth as needed. - omeprazole 40 mg capsule Take 40 mg by mouth once daily. - metoprolol tartrate, short acting, (LOPRESSOR) 25 mg tablet Take 25 mg by mouth once daily. - cyanocobalamin, vitamin B-12, (VITAMIN B-12 INJECTION) by INJECTION(UNSPECIFIED PARENTERAL ROUTES) route once every month. - temazepam 30 mg cap Take 30 mg by mouth daily at bedtime. - montelukast sodium(SINGULAIR 10 MG TAB) take one tablet by mouth daily 0 - NITROGLYCERIN 0.4 MG SUBLINGUAL TAB Dissolve under the tongue every 5 minutes as needed. Usual dose for angina is 1 tablet every 5 minutes for maximum of 3 doses in 15 minutes. 0 - ALBUTEROL 90 MCG/ACTUATION AEROSOL INHALER Inhale 1-2 Puffs as instructed every 4 hours as needed. SHAKE WELL BEFORE USING 0 - [START ON 01/27/2021] rosuvastatin (CRESTOR) 40 mg tablet Take 1 tablet by mouth once daily. 30 tablet 0 - Multivitamin with Iron-Mineral tab Take 1 tablet by mouth once daily. 100 tablet 2 No current facility-administered medications for this visit. Review of Systems Constitutional: Negative for chills, diaphoresis (Negative for night sweats.) and fever. HENT: Negative for ear discharge and rhinorrhea. Eyes: Negative for discharge. Respiratory: Negative for cough, shortness of breath and wheezing. Cardiovascular: Negative for chest pain, palpitations and leg swelling. Gastrointestinal: Negative for constipation, diarrhea, nausea and vomiting. Endocrine: Negative for cold intolerance and heat intolerance. Genitourinary: Negative for frequency. Negative for urinary incontinence and urinary retention. Musculoskeletal: Positive for back pain and gait problem. Negative for joint swelling, myalgias and neck pain. Skin: Negative for rash (Negative for hives and skin lesions.). Allergic/Immunologic: Negative for environmental allergies and food allergies. Negative for contact allergy, seasonal allergies. Neurological: Positive for weakness. Negative for dizziness, seizures, syncope, light-headedness, numbness (Negative for numbness in extremities.) and headaches. Hematological: Does not bruise/bleed easily. Psychiatric/Behavioral: The patient is not nervous/anxious. Negative for depression. PAIN EVALUATION 12/25/2020 0801 Pain Level: 4 Pain Location: Back-Lower Description: Sharp Duration Units: Weeks Frequency: Intermittent Intervention: Medication PHYSICAL EXAM: WOUND ASSESSMENT: ap (more content not included)... [facility] MR-LUMBAR SPINE W/O CONT IMP Marjorie 12-20-2020 MR-LUMBAR SPINE W/O CONT IMPORT Images were obtained outside of [facility] [id number] [facility] CNOVon 12-18-2020 CNOV Office Visit (MARIETTAAGAK ) -- MARCOS SHELTON ([id number]) 1950 F Date Time Provider Department 12/18/20 9:45 AM SAMEER PEREZ During your visit today, we recorded the following information about you: Temperature Pulse Respiration Blood pressure 97.3 degrees 62/minute 16/minute 144/57 Weight Height 77.1 kg 1.626 m Sameer Perez MD 12/18/2020 9:51 AM Signed NEUROSURGERY POST-OP NOTE Sameer Perez MD Date of visit: December 18, 2020 Patient Name: Ms.Andra Chika Shelton Date of : 1950 Current Age: [age] year old Sex: female MRN/E# [id number] Last Office Visit: 12/13/2020 SURGERY: lumbar prior hardware removal d/t wound infection with placement of wound vac and drain on 11/18/2020 ? Pre-Surgical Symptoms: non healing lumbar wound, drainage Ms. Shelton presents to the office today for a follow up visit for worsening low back pain into the left hip. She has been followed by home health AND they have contacted the office concerning a new pain into the left hip with ambulation. They also noted a hardness to the left of the incision without redness, swelling, or drainage. The patient states this pain has been persistent and severe for 6 days. She notes difficulty with ambulation and has a hear time bearing weight on the left lower extremity. She continues to receive IV antibiotics and states that she did contact infectious disease but they have not called her back. Her midline lumbar incision has a superficial openening without active drainage noted. There is tenderness to the left of the incision. She presents for evaluation and plan of care. Incision: superficial opening at the midline lumbar incision site without warmth or drainage noted Current Outpatient Medications Medication Sig Dispense Refill - oxyCODONE-acetaminophen (PERCOCET) 5-325 mg tablet Take 1 tablet by mouth every 6 hours as needed for Pain (acute post-op pain) for up to 7 days. 28 tablet 0 - [START ON 01/27/2021] rosuvastatin (CRESTOR) 40 mg tablet Take 1 tablet by mouth once daily. (Patient not taking: Reported on 11/29/2020 ) 30 tablet 0 - DAPTOmycin 500 mg in NaCl 0.9% 50 mL (CUBICIN) Inject 500 mg intravenously every 48 hours. - levETIRAcetam (KEPPRA) 500 mg tablet Take 500 mg by mouth twice daily. - cholecalciferol (VITAMIN D-3) 5,000 unit tab Take 5,000 Units by mouth once daily. - calcitriol (ROCALTROL) 0.25 mcg capsule Take 0.25 mcg by mouth once daily. - VITAMIN B-6 100 mg tablet take 1 tablet by mouth once daily 100 tablet 2 - Multivitamin with Iron-Mineral tab Take 1 tablet by mouth once daily. (Patient not taking: Reported on 11/01/2020 ) 100 tablet 2 - hydrOXYzine HCl (ATARAX) 25 mg tablet Take 25 mg by mouth every 6 hours as needed. - furosemide (LASIX) 40 mg tablet Take 40 mg by mouth every 48 hours. - linaCLOtide (LINZESS) 290 mcg capsule Take 290 mcg by mouth as needed. - omeprazole 40 mg capsule Take 40 mg by mouth once daily. - metoprolol tartrate, short acting, (LOPRESSOR) 25 mg tablet Take 25 mg by mouth once daily. - cyanocobalamin, vitamin B-12, (VITAMIN B-12 INJECTION) by INJECTION(UNSPECIFIED PARENTERAL ROUTES) route once every month. - temazepam 30 mg cap Take 30 mg by mouth daily at bedtime. - montelukast sodium(SINGULAIR 10 MG TAB) take one tablet by mouth daily 0 - NITROGLYCERIN 0.4 MG SUBLINGUAL TAB Dissolve under the tongue every 5 minutes as needed. Usual dose for angina is 1 tablet every 5 minutes for maximum of 3 doses in 15 minutes. 0 - ALBUTEROL 90 MCG/ACTUATION AEROSOL INHALER Inhale 1-2 Puffs as instructed every 4 hours as needed. SHAKE WELL BEFORE USING (Patient not taking: Reported on 11/29/2020 ) 0 No current facility-administered medications for this visit. Review of Systems Constitutional: Negative for chills, diaphoresis and fever. HENT: Negative for congestion, ear pain and sinus pressure. Eyes: Negative for discharge and redness. Respiratory: Negative for cough, shortness of breath and wheezing. Cardiovascular: Negative for chest pain, palpitations and leg swelling. Gastrointestinal: Negative for constipation, diarrhea and nausea. Endocrine: Negative for cold intolerance and heat intolerance. Genitourinary: Negative for difficulty urinating, frequency and urgency. Musculoskeletal: Positive for back pain and gait problem. Negative for neck pain. Skin: Negative for rash and wound. Allergic/Immunologic: Negative for environmental allergies and food allergies. Neurological: Negative for dizziness, weakness and numbness. Hematological: Does not bruise/bleed easily. Psychiatric/Behavioral: Negative for agitation. The patient is not nervous/anxious. PAIN EVALUATION No data found in the last 1 encounters. PHYSICAL EXAM: WOUND ASSESSMENT: superficial opening at the midline lumbar incision site without warmth or draina (more content not included)... [facility] CNPNon 12-13-2020 CASEY Telephone (MARIETTAAGAK) -- MARCOS SHELTON ([id number]) 1950 F Date Time Provider Department 12/13/20 LOUIE CALLES (MARIE, ADDISON) JOSE ANGEL During your visit today, we recorded the following information about you: Dory Das 12/13/2020 2:20 PM Signed Patients home [facility]ron care provider called into the office, with the patient in the background, with concerns of new onset left low back/hip pain. She states this began last night and is causing her significant pain and discomfort- only with weight bearing. She denies swelling, warmth, or drainage at the incision and denies fever/chills/signs of infection. She also denies weakness or bowel/bladder disturbance. I spoke with Louie Calles APRN, CNP in regard to this and feels this is likely nerve/muscle irritation. May continue to monitor for above symptoms, use ice/rest. I encouraged her to also call ID and make them aware in the case that they would like to check labs (on IV antibiotics) She verbalized understanding and was appreciative. Also requesting refill of pain medication due to increased pain. Will send to pharmacy per her request. Dory Das 12/13/2020 2:20 PM Signed Patient called requesting the following refill Refill(s) Requested: Pending Prescriptions Disp Refills OXYCODONE-ACETAMINOPHEN 5 MG-325 MG TABLET 28 tablet 0 Sig: Take 1 tablet by mouth every 6 hours as needed for Pain (acute post-op pain) for up to 7 days. MIRANDA Class: C-II LORRAINE: No ALLERGIES Allergen Reactions - Colesevelam Unknown - Nitrofurantoin Unknown - Penicillins Other: See Comments, Unknown - Hydrocortisone Unknown - Macrobid [Nitrofura* - Metolazone Unknown - Pravastatin Unknown - Sulfa (Sulfonamide * Unknown - Tramadol GI Upset (home) [phone] (cell) Last Office Visit Date: 11/29/2020 Last [facility] Visit: Visit date not found Future Appointment: 01/17/2021 The patients preferred pharmacy has been captured for this encounter? yes Request is for script(s) to be escript to pharmacy. Dory OrellanaRn) Juan Calles APRN.EQUITY RESEARCH ANALYST 12/13/2020 3:44 PM Signed Okay for refill on pain medication or muscle relaxant that the patient is taking for postoperative pain/spasm which is due at this time. OARRS reviewed. All prescriptions have been APPROPRIATELY filled. No suspicious activity was identified. Prescription approved, signed and sent to patients pharmacy on file. Louie Calles APRN.EQUITY RESEARCH ANALYST 3:44 PM 12/13/2020 Allergies As of Date: 12/13/2020 Noted Allergy Reaction COLESEVELAM 12/15/2018 16 - Unknown NITROFURANTOIN 12/15/2018 16 - Unknown PENICILLINS 02/18/2006 14 - Other: See Comments 16 - Unknown HYDROCORTISONE 11/06/2020 16 - Unknown MACROBID (NITROFURANTOIN MONOHYD/*02/18/2006 METOLAZONE 12/15/2018 16 - Unknown PRAVASTATIN 12/15/2018 16 - Unknown SULFA (SULFONAMIDE ANTIBIOTICS) 06/27/2012 16 - Unknown TRAMADOL 04/11/2019 8 - GI Upset Date Reviewed: 12/10/2020 Reviewed by: Ritika Lam (Quique) QUIQUE Cosme - Fully Assessed Reason for Visit: Patient Question [[id number]] Visit Diagnosis:Spondylolisthesi s, lumbar region [M43.16] Order(s):oxyCODONE-acetami nophen (PERCOCET) 5-325 mg tabletTake 1 tablet by mouth every 6 hours as needed for Pain (acute post-op pain) for up to 7 days.Disp: 28 tabletRfl: 0 Prescriptions as of 12/13/2020 Sig: OXYCODONE-ACETAMINOPHEN 5 MG-* Take 1 tablet by mouth every * ROSUVASTATIN 40 MG TABLET Take 1 tablet by mouth once d* Patient not taking: Reported on 11/29/2020 DAPTOMYCIN IVPB IN NS 50 ML Inject 500 mg intravenously e* LEVETIRACETAM 500 MG TABLET Take 500 mg by mouth twice da* CHOLECALCIFEROL (VITAMIN D3) * Take 5,000 Units by mouth onc* CALCITRIOL 0.25 MCG CAPSULE Take 0.25 mcg by mouth once d* VITAMIN B-6 100 MG TABLET take 1 tablet by mouth once d* MULTIVITAMIN WITH IRON-MINERA* Take 1 tablet by mouth once d* Patient not taking: Reported on 11/01/2020 HYDROXYZINE HCL 25 MG TABLET Take 25 mg by mouth every 6 h* FUROSEMIDE 40 MG TABLET Take 40 mg by mouth every 48 * LINACLOTIDE 290 MCG CAPSULE Take 290 mcg by mouth as need* OMEPRAZOLE 40 MG CAPSULE,LEANNE* Take 40 mg by mouth once bk* METOPROLOL TARTRATE 25 MG TAB* Take 25 mg by mouth once bk* VITAMIN B-12 INJECTION by INJECTION(UNSPECIFIED PARE* * TEMAZEPAM 30 MG CAPSULE Take 30 mg by mouth daily at * * SINGULAIR 10 MG TABLET take one tablet by mouth daily * NITROGLYCERIN 0.4 MG SUBLINGU* Dissolve under the tongue gina* * ALBUTEROL 90 MCG/ACTUATION AE* Inhale 1-2 Puffs as instructe* Patient not taking: Reported on 11/29/2020 Problem List As Of Date 12/13/2020 Noted Resolved BENIGN HYPERTENSION [I10] MITRAL VALVE DISORDER [I05.9] HYPERLIPIDEMIA NEC/NOS [E78.5] RHEUMATOID ARTHRITIS [M06.9] Abdominal Pain, Right Upper Quadrant [R10.11] 09/05/2009 Early Satiety [R68.81] 09/05/19 (more content not included)... Normal [facility] Irene 12-04-2020 [employer] Telephone ([employer]) -- MARCOS SHELTON ([id number]) 1950 F Date Time Provider Department 12/04/20 SAMEER PEREZ During your visit today, we recorded the following information about you: Dory Das 12/04/2020 9:04 AM Signed Ms. Shelton called into the office today and would like to know if she can shower. I told her from our standpoint she can shower, but not submerge her incision or tub bath. She then asked about her PICC line and showering. I told her the PICC line needs to stay completely dry due to risk for infection. I encouraged her to use a shower chair and detachable shower head and avoid getting this region wet at all. I also encouraged her to wrap the PICC line with plastic wrap only while bathing to ensure it stays dry. I again educated patient on importance of keeping the PICC line and dressing dry. She verbalized understanding and was appreciative. Dory Das Allergies As of Date: 12/04/2020 Noted Allergy Reaction COLESEVELAM 12/15/2018 16 - Unknown NITROFURANTOIN 12/15/2018 16 - Unknown PENICILLINS 02/18/2006 14 - Other: See Comments 16 - Unknown HYDROCORTISONE 11/06/2020 16 - Unknown MACROBID (NITROFURANTOIN MONOHYD/*02/18/2006 METOLAZONE 12/15/2018 16 - Unknown PRAVASTATIN 12/15/2018 16 - Unknown SULFA (SULFONAMIDE ANTIBIOTICS) 06/27/2012 16 - Unknown TRAMADOL 04/11/2019 8 - GI Upset Date Reviewed: 11/29/2020 Reviewed by: Sameer Perez - Fully Assessed Reason for Visit: Patient Question [[id number]] Prescriptions as of 12/04/2020 Sig: ROSUVASTATIN 40 MG TABLET Take 1 tablet by mouth once d* Patient not taking: Reported on 11/29/2020 DAPTOMYCIN IVPB IN NS 50 ML Inject 500 mg intravenously e* LEVETIRACETAM 500 MG TABLET Take 500 mg by mouth twice da* CHOLECALCIFEROL (VITAMIN D3) * Take 5,000 Units by mouth onc* CALCITRIOL 0.25 MCG CAPSULE Take 0.25 mcg by mouth once d* VITAMIN B-6 100 MG TABLET take 1 tablet by mouth once d* MULTIVITAMIN WITH IRON-MINERA* Take 1 tablet by mouth once d* Patient not taking: Reported on 11/01/2020 HYDROXYZINE HCL 25 MG TABLET Take 25 mg by mouth every 6 h* FUROSEMIDE 40 MG TABLET Take 40 mg by mouth every 48 * LINACLOTIDE 290 MCG CAPSULE Take 290 mcg by mouth as need* OMEPRAZOLE 40 MG CAPSULE,LEANNE* Take 40 mg by mouth once bk* METOPROLOL TARTRATE 25 MG TAB* Take 25 mg by mouth once bk* VITAMIN B-12 INJECTION by INJECTION(UNSPECIFIED PARE* * TEMAZEPAM 30 MG CAPSULE Take 30 mg by mouth daily at * * SINGULAIR 10 MG TABLET take one tablet by mouth daily * NITROGLYCERIN 0.4 MG SUBLINGU* Dissolve under the tongue gina* * ALBUTEROL 90 MCG/ACTUATION AE* Inhale 1-2 Puffs as instructe* Patient not taking: Reported on 11/29/2020 Problem List As Of Date 12/04/2020 Noted Resolved BENIGN HYPERTENSION [I10] MITRAL VALVE DISORDER [I05.9] HYPERLIPIDEMIA NEC/NOS [E78.5] RHEUMATOID ARTHRITIS [M06.9] Abdominal Pain, Right Upper Quadrant [R10.11] 09/05/2009 Early Satiety [R68.81] 09/05/2009 Loss of Weight [R63.4] 09/05/2009 Weakness of both lower limbs [R29.898] 06/02/2012 Postlaminectomy syndrome [M96.1] 06/02/2012 Disc degeneration, lumbar [M51.36] 06/27/2012 Paresthesia [R20.2] 06/27/2012 Pain in limb [M79.609] 06/27/2012 Anemia associated with chronic renal failure [N*01/02/2020 Spondylolisthesis, lumbar region [M43.16] 11/18/2020 Encounter Status:Closed by DORY DAS on 12/04/20 Normal [facility] CBC W/DIFFon 12-03-2020 BASO ABS 0.10 K/CU MM Normal 0-0.2 [facility] Comment on above: Performed By: #### L 200.62563 #### [facility] [address] [place] [address] Basophils/100 WBC (Bld) 0.8 % Normal 0-2 [facility] Comment on above: Performed By: #### L 200.87469 #### [facility] [address] [place] [address] EOS ABS 0.30 K/CU MM Normal 0-0.5 [facility] Comment on above: Performed By: #### L 200.28824 #### [facility] [address] [place] [address] Eosinophils/100 WBC (Bld) 3.6 % Normal 0-5 [facility] Comment on above: Performed By: #### L 200.03344 #### [facility] [address] [place] [address] Erythrocyte distribution width (RBC) [Ratio] 13.8 % Normal 11-14.5 [facility] Comment on above: Performed By: #### L 200.16040 #### [facility] [address] [place] [address] Hematocrit (Bld) [Volume fraction] 23.9 % Low 35.0-47.0 [facility] Comment on above: Performed By: #### L 200.09407 #### [facility] [address] [place] [address] Hemoglobin (Bld) [Mass/Vol] 7.4 g/dL Low 11.5-15.5 [facility] Comment on above: Performed By: #### L 200.82751 #### [facility] [address] [place] [address] IMMATR GRAN ABS 0.00 K/CU MM Normal Less than 2 [facility] Comment on above: Performed By: #### L 200.93028 #### [facility] [place] [address] IMMATURE GRAN % 0.4 % Normal Less than 2 [facility] Comment on above: Performed By: #### L 200.54965 #### [facility] [address] [place] [address] Lymphocytes (Bld) [#/Vol] 2.10 K/CU MM Normal 0.9-4.4 [facility] Comment on above: Performed By: #### L 200.86474 #### [facility] [address] [place] [address] Lymphocytes/100 WBC (Bld) 23.1 % Normal 20-40 [facility] Comment on above: Performed By: #### L 200.42447 #### [facility] [address] [place] [address] MCHC (RBC) [Mass/Vol] 31.0 g/dL Low 32.0-36.0 [facility] Comment on above: Performed By: #### L 200.61362 #### [facility] [address] [place] [address] MCV (RBC) [Entitic vol] 94.1 fL Normal 80.0-99.0 [facility] Comment on above: Performed By: #### L 200.46395 #### [facility] [address] [place] [address] MONO ABS 0.60 K/CU MM Normal 0.1-1.1 [facility] Comment on above: Performed By: #### L 200.01461 #### [facility] [address] [place] [address] Monocytes/100 WBC (Bld) 6.6 % Normal 2-10 [facility] Comment on above: Performed By: #### L 200.87761 #### [facility] [address] [place] [address] NEUTROPHIL ABS 5.80 K/CU MM Normal 2.0-8.3 [facility] Comment on above: Performed By: #### L 200.48885 #### [facility] [address] [place] [address] Neutrophils/100 WBC (Bld) 65.5 % Normal 45-75 [facility] Comment on above: Performed By: #### L 200.82267 #### [facility] [address] [place] [address] Nucleated RBC/100 WBC (Bld) [Ratio] 0.0 % Normal Less than 1 [facility] Comment on above: Performed By: #### L 200.73803 #### [facility] [address] [place] [address] Platelet mean volume (Bld) [Entitic vol] 9.7 fL Normal 9.4-12.4 [facility] Comment on above: Performed By: #### L 200.18140 #### [facility] [address] [place] [address] Platelets (Bld) [#/Vol] 322 K/CU MM Normal 150-450 [facility] Comment on above: Performed By: #### L 200.81882 #### [facility] [address] [place] [address] RBC (Bld) [#/Vol] 2.54 M/CU MM Low 3.90-5.30 [facility] Comment on above: Performed By: #### L 200.34560 #### [facility] [address] [place], [place] [id number] WBC (Bld) [#/Vol] 8.9 K/CUMM Normal 4.5-11.0 [facility] Comment on above: Performed By: #### L 200.38272 #### [facility] [place] [address] CKon 12-03-2020 CK [Catalytic activity/Vol] 123 U/L Normal 28-152 [facility] Comment on above: Result Comment: NOTE NEW NORMAL RANGE DUE TO REAGENT CHANGE Performed By: #### L 500.89232, L500.04391, L500.58306 #### [facility] [address] [place], [place] [address] CREATon 12-03-2020 Creatinine [Mass/Vol] 1.80 mg/dL High 0.510-0.950 [facility] Comment on above: Result Comment: [place] ents receiving either N-Acetylcysteine (NAC) or Metamizole prior to venipuncture, may have falsely depressed results. Performed By: #### L 500.76010, L500.97163, L500.97855 #### [facility] [address] [place] [address] GFR ESTon 12-03-2020 IF AMER 34 [facility] Comment on above: Performed By: #### L 500.38727, L500.19898, L500.50233 #### [facility] [address] [place] [address] IF non-AFR AMER 28 [facility] Comment on above: Performed By: #### L 500.80229, L500.21582, L500.27491 #### [facility] [address] [place] [address] CNOVon 11-29-2020 CNOV Office Visit (JOSE ANGEL ) -- CAT,MARCOS L ([id number]) 1950 F Date Time Provider Department 11/29/20 10:45 AM SAMEER PEREZ During your visit today, we recorded the following information about you: Temperature Pulse Respiration Blood pressure 97.4 degrees 58/minute 18/minute 153/59 Weight Height 84.4 kg 1.626 m Sameer Perez MD 11/29/2020 10:28 AM Signed NEUROSURGERY POST-OP NOTE Sameer Perez MD Date of visit: November 29, 2020 Patient Name: Ms.Andra Chika Shelton Date of : 1950 Current Age: [age] year old Sex: female MRN/E# [id number] Last Office Visit: Post op SURGERY: lumbar prior hardware removal d/t wound infection with placement of wound vac and drain on 11/18/2020 Pre-Surgical Symptoms: non healing lumbar wound, drainage Patient is having their 1st post operative visit. She states she is overall doing well. She reports no issues with her incision or wound. She denies any drainage from the wound VAC. She reports no new complaints. She presents for evaluation and plan of care. Incision: Vac dressing intact PREVIOUS SURGERY: SURGERY #1: L2-S1 fusion per Dr.Olide Damian ([place]) 2017 Current Outpatient Medications Medication Sig Dispense Refill - [START ON 01/27/2021] rosuvastatin (CRESTOR) 40 mg tablet Take 1 tablet by mouth once daily. 30 tablet 0 - DAPTOmycin 500 mg in NaCl 0.9% 50 mL (CUBICIN) Inject 500 mg intravenously every 48 hours. - levETIRAcetam (KEPPRA) 500 mg tablet Take 500 mg by mouth twice daily. - cholecalciferol (VITAMIN D-3) 5,000 unit tab Take 5,000 Units by mouth once daily. - calcitriol (ROCALTROL) 0.25 mcg capsule Take 0.25 mcg by mouth once daily. - VITAMIN B-6 100 mg tablet take 1 tablet by mouth once daily 100 tablet 2 - Multivitamin with Iron-Mineral tab Take 1 tablet by mouth once daily. (Patient not taking: Reported on 11/01/2020 ) 100 tablet 2 - hydrOXYzine HCl (ATARAX) 25 mg tablet Take 25 mg by mouth every 6 hours as needed. - furosemide (LASIX) 40 mg tablet Take 40 mg by mouth every 48 hours. - linaCLOtide (LINZESS) 290 mcg capsule Take 290 mcg by mouth as needed. - omeprazole 40 mg capsule Take 40 mg by mouth once daily. - metoprolol tartrate, short acting, (LOPRESSOR) 25 mg tablet Take 25 mg by mouth once daily. - cyanocobalamin, vitamin B-12, (VITAMIN B-12 INJECTION) by INJECTION(UNSPECIFIED PARENTERAL ROUTES) route once every month. - temazepam 30 mg cap Take 30 mg by mouth daily at bedtime. - montelukast sodium(SINGULAIR 10 MG TAB) take one tablet by mouth daily 0 - NITROGLYCERIN 0.4 MG SUBLINGUAL TAB Dissolve under the tongue every 5 minutes as needed. Usual dose for angina is 1 tablet every 5 minutes for maximum of 3 doses in 15 minutes. 0 - ALBUTEROL 90 MCG/ACTUATION AEROSOL INHALER Inhale 1-2 Puffs as instructed every 4 hours as needed. SHAKE WELL BEFORE USING 0 No current facility-administered medications for this visit. Review of Systems Constitutional: Negative for chills, diaphoresis (Negative for night sweats.) and fever. HENT: Negative for ear discharge and rhinorrhea. Eyes: Negative for discharge. Respiratory: Negative for cough, shortness of breath and wheezing. Cardiovascular: Negative for chest pain, palpitations and leg swelling. Gastrointestinal: Negative for constipation, diarrhea, nausea and vomiting. Endocrine: Negative for cold intolerance and heat intolerance. Genitourinary: Negative for frequency. Negative for urinary incontinence and urinary retention. Musculoskeletal: Positive for back pain and gait problem. Negative for joint swelling, myalgias and neck pain. Skin: Negative for rash (Negative for hives and skin lesions.). Allergic/Immunologic: Negative for environmental allergies and food allergies. Negative for contact allergy, seasonal allergies. Neurological: Negative for dizziness, seizures, syncope, weakness, light-headedness, numbness (Negative for numbness in extremities.) and headaches. Hematological: Does not bruise/bleed easily. Psychiatric/Behavioral: The patient is not nervous/anxious. Negative for depression. PAIN EVALUATION No data found in the last 1 encounters. PHYSICAL EXAM: WOUND ASSESSMENT: Dressing intact to wound vac. No drainage. tubing clamped 1. Vertebral osteomyelitis (HCC) The patient returns today for follow-up. She is recovering well following surgical reexploration and removal of the previously implanted hardware along with debridement for vertebral osteomyelitis. Her incision seems to be healing well. She is continuing her current antibiotic therapy under the care of Dr. Dobbs. I told her she should follow-up with me in approximately 6 weeks. All of her questions were addressed in detail. Sameer Perez MD This note was partially generated using [employer] voice recognition system, and there may be some incorrec (more content not included)... Normal [facility] Basic metabolic 2000 panelon 11-23-2020 Anion gap [Moles/Vol] 8 mmol/L Low 9-18 [facility] Comment on above: Order Comment: Speci men Type: BLOOD SPECIMEN Performed By: #### H CT, HGB #### [facility] CLIA [id number] [address] [place] [address] Calcium [Mass/Vol] 8.1 mg/dL Low 8.5-10.2 [facility] Comment on above: Order Comment: Speci men Type: BLOOD SPECIMEN Performed By: #### H CT, HGB #### [facility] CLIA [id number] [address] [place] [address] Chloride [Moles/Vol] 112 mmol/L High 97-105 [facility] Comment on above: Order Comment: Speci men Type: BLOOD SPECIMEN Performed By: #### H CT, HGB #### [facility] CLIA [id number] [address] [place] [address] CO2 [Moles/Vol] 22 mmol/L Normal 22-30 [facility] Comment on above: Order Comment: Speci men Type: BLOOD SPECIMEN Performed By: #### H CT, HGB #### [facility] CLIA [id number] [address] [place] [address] Creatinine [Mass/Vol] 2.07 mg/dL High 0.58-0.96 [facility] Comment on above: Order Comment: Speci men Type: BLOOD SPECIMEN Performed By: #### H CT, HGB #### [facility] CLIA [id number] [address] [place] [address] GFR/1.73 sq M.predicted MDRD (S/P/Bld) [Vol rate/Area] 29 mL/min/{1.73_m2} Normal [facility] Comment on above: Order Comment: Speci men Type: BLOOD SPECIMEN Result Comment: 24 eGFR (Estimated GFR) Units of measure: mL/min/1.73 meters squared eGFR is derived from the reexpressed MDRD Study equation using the following parameters: serum creatinine, age, gender and race. The creatinine assay has been calibrated to be traceable to IDMS. An eGFR <60 mL/min/1.73m2 for >3 months is consistent with chronic kidney disease. Refer to KDOQI guidelines for clinical interpretation. In patients with unstable renal function, e.g. those with acute kidney injury, the eGFR may not accurately reflect actual GFR. Performed By: #### H CT, HGB #### [facility] CLIA [id number] [address] [place] [address] Glucose [Mass/Vol] 84 mg/dL Normal 74-99 [facility] Comment on above: Order Comment: Speci men Type: BLOOD SPECIMEN Result Comment: The [place] Diabetes Association (ADA) provides guidance for cutoff values for fasting glucose and random glucose. The ADA defines fasting as no caloric intake for at least 8 hours. Fasting plasma glucose results between 100 to 125 mg/dL indicate increased risk for diabetes (prediabetes). Fasting plasma glucose results greater than or equal to 126 mg/dL meet the criteria for diagnosis of diabetes. In the absence of unequivocal hyperglycemia, results should be confirmed by repeat testing. In a patient with classic symptoms of hyperglycemia or hyperglycemic crisis, random plasma glucose results greater than or equal to 200 mg/dL meet the criteria for diagnosis of diabetes. Reference: Standards of Medical Care in Diabetes 2016, [place] Diabetes Association. Diabetes Care. 2016.39(Suppl 1). Performed By: #### H CT, HGB #### [facility] CLIA [id number] [address] [place] [address] Potassium [Moles/Vol] 3.5 mmol/L Low 3.7-5.1 [facility] Comment on above: Order Comment: Speci [facility] Type: BLOOD SPECIMEN Performed By: #### H CT, HGB #### [facility] CLIA [id number] [address] [place] [address] Sodium [Moles/Vol] 142 mmol/L Normal 136-144 [facility] Comment on above: Order Comment: Speci men Type: BLOOD SPECIMEN Performed By: #### H CT, HGB #### [facility] CLIA [id number] [address] [place] [address] Urea nitrogen [Mass/Vol] 19 mg/dL Normal 7-21 [facility] Comment on above: Order Comment: Speci men Type: BLOOD SPECIMEN Performed By: #### H CT, HGB #### [facility] CLIA [id number] [address] [place] [address] CBC panel Auto (Bld)on 11-23 Erythrocyte distribution width (RBC) [Ratio] 13.5 % Normal 11.5-15.0 [facility] Comment on above: Order Comment: Speci men Type: BLOOD SPECIMEN Performed By: #### H CT, HGB #### [facility] CLIA [id number] [address] [place] [address] Hematocrit (Bld) [Volume fraction] 21.5 % Low 36.0-46.0 [facility] Comment on above: Order Comment: Speci men Type: BLOOD SPECIMEN Performed By: #### H CT, HGB #### [facility] CLIA [id number] [address] [place] [address] Hemoglobin (Bld) [Mass/Vol] 6.9 g/dL Low 11.5-15.5 [facility] Comment on above: Order Comment: Speci men Type: BLOOD SPECIMEN Performed By: #### H CT, HGB #### [facility] CLIA [id number] [address] [place] [address] MCH (RBC) [Entitic mass] 29.0 pg Normal 26.0-34.0 [facility] Comment on above: Order Comment: Speci men Type: BLOOD SPECIMEN Performed By: #### H CT, HGB #### [facility] CLIA [id number] [address] [place] [address] MCHC (RBC) [Mass/Vol] 32.1 g/dL Normal 30.5-36.0 [facility] Comment on above: Order Comment: Speci men Type: BLOOD SPECIMEN Performed By: #### H CT, HGB #### [facility] CLIA [id number] [address] [place] [address] MCV (RBC) [Entitic vol] 90.3 fL Normal 80.0-100.0 [facility] Comment on above: Order Comment: Speci men Type: BLOOD SPECIMEN Performed By: #### H CT, HGB #### [facility] CLIA [id number] [address] [place] [address] Nucleated RBC (Bld) [#/Vol] 10*3/uL Normal <0.01 [facility] Comment on above: Order Comment: Speci men Type: BLOOD SPECIMEN Performed By: #### H CT, HGB #### [facility] CLIA [id number] [address] [place] [address] Platelet mean volume (Bld) [Entitic vol] 9.0 fL Normal 9.0-12.7 [facility] Comment on above: Order Comment: Speci men Type: BLOOD SPECIMEN Performed By: #### H CT, HGB #### [facility] CLIA [id number] [address] [place] [address] Platelets (Bld) [#/Vol] 224 10*3/uL Normal 150-400 [facility] Comment on above: Order Comment: Speci men Type: BLOOD SPECIMEN Performed By: #### H CT, HGB #### [facility] CLIA [id number] [address] [place] [address] RBC (Bld) [#/Vol] 2.38 10*6/uL Low 3.90-5.20 [facility] Comment on above: Order Comment: Speci men Type: BLOOD SPECIMEN Performed By: #### H CT, HGB #### [facility] CLIA [id number] [address] [place] [address] WBC (Bld) [#/Vol] 7.07 10*3/uL Normal 3.70-11.00 [facility] Comment on above: Order Comment: Speci men Type: BLOOD SPECIMEN Performed By: #### H CT, HGB #### [facility] CLIA [id number] [address] [place] [address] HEMATOCRIT (HCT)on 1 Hematocrit (Bld) [Volume fraction] 24.8 % Low 36.0-46.0 [facility] Comment on above: Order Comment: Speci men Type: BLOOD SPECIMEN Performed By: #### H CT, HGB #### [facility] CLIA [id number] [address] [place] [address] HEMOGLOBIN (HGB)on 1 Hemoglobin (Bld) [Mass/Vol] 7.8 g/dL Low 11.5-15.5 [facility] Comment on above: Order Comment: Speci men Type: BLOOD SPECIMEN Performed By: #### H CT, HGB #### [facility] CLIA [id number] [address] [place] [address] Basic metabolic 2000 panelon 11-22-2020 Anion gap [Moles/Vol] 10 mmol/L Normal 9-18 [facility] Comment on above: Order Comment: Speci men Type: BLOOD SPECIMEN Performed By: #### 4 091-5 #### [facility] CLIA [id number] [address] [place] [address] Calcium [Mass/Vol] 7.8 mg/dL Low 8.5-10.2 [facility] Comment on above: Order Comment: Speci men Type: BLOOD SPECIMEN Performed By: #### 4 091-5 #### [facility] CLIA [id number] [address] [place] [address] Chloride [Moles/Vol] 107 mmol/L High 97-105 [facility] Comment on above: Order Comment: Speci men Type: BLOOD SPECIMEN Performed By: #### 4 091-5 #### [facility] CLIA [id number] [address] [place] [address] CO2 [Moles/Vol] 22 mmol/L Normal 22-30 [facility] Comment on above: Order Comment: Speci men Type: BLOOD SPECIMEN Performed By: #### 4 091-5 #### [facility] CLIA [id number] [address] [place] [address] Creatinine [Mass/Vol] 2.15 mg/dL High 0.58-0.96 [facility] Comment on above: Order Comment: Speci men Type: BLOOD SPECIMEN Performed By: #### 4 091-5 #### [facility] CLIA [id number] [address] [place] [address] GFR/1.73 sq M.predicted MDRD (S/P/Bld) [Vol rate/Area] 28 mL/min/{1.73_m2} Normal [facility] Comment on above: Order Comment: Speci men Type: BLOOD SPECIMEN Result Comment: 23 eGFR (Estimated GFR) Units of measure: mL/min/1.73 meters squared eGFR is derived from the reexpressed MDRD Study equation using the following parameters: serum creatinine, age, gender and race. The creatinine assay has been calibrated to be traceable to [employer]. An eGFR <60 mL/min/1.73m2 for >3 months is consistent with chronic kidney disease. Refer to KDOQI guidelines for clinical interpretation. In patients with unstable renal function, e.g. those with acute kidney injury, the eGFR may not accurately reflect actual GFR. Performed By: #### 4 091-5 #### [facility] CLIA [id number] [address] [place] [address] Glucose [Mass/Vol] 102 mg/dL High 74-99 [facility] Comment on above: Order Comment: Speci men Type: BLOOD SPECIMEN Result Comment: The [place] Diabetes Association (ADA) provides guidance for cutoff values for fasting glucose and random glucose. The ADA defines fasting as no caloric intake for at least 8 hours. Fasting plasma glucose results between 100 to 125 mg/dL indicate increased risk for diabetes (prediabetes). Fasting plasma glucose results greater than or equal to 126 mg/dL meet the criteria for diagnosis of diabetes. In the absence of unequivocal hyperglycemia, results should be confirmed by repeat testing. In a patient with classic symptoms of hyperglycemia or hyperglycemic crisis, random plasma glucose results greater than or equal to 200 mg/dL meet the criteria for diagnosis of diabetes. Reference: Standards of Medical Care in Diabetes 2016, [place] Diabetes Association. Diabetes Care. 2016.39(Suppl 1). Performed By: #### 4 091-5 #### [facility] CLIA [id number] [address] [place] [address] Potassium [Moles/Vol] 3.7 mmol/L Normal 3.7-5.1 [facility] Comment on above: Order Comment: Speci men Type: BLOOD SPECIMEN Performed By: #### 4 091-5 #### [facility] CLIA [id number] [address] [place] [address] Sodium [Moles/Vol] 139 mmol/L Normal 136-144 [facility] Comment on above: Order Comment: Speci men Type: BLOOD SPECIMEN Performed By: #### 4 091-5 #### [facility] CLIA [id number] [address] [place] [address] Urea nitrogen [Mass/Vol] 20 mg/dL Normal 7-21 [facility] Comment on above: Order Comment: Speci men Type: BLOOD SPECIMEN Performed By: #### 4 091-5 #### [facility] CLIA [id number] [address] [place] [address] CBC panel Auto (Bld)on 11-22 Erythrocyte distribution width (RBC) [Ratio] 13.5 % Normal 11.5-15.0 [facility] Comment on above: Order Comment: Speci men Type: BLOOD SPECIMEN Performed By: #### 4 091-5 #### [facility] CLIA [id number] [address] [place] [address] Hematocrit (Bld) [Volume fraction] 22.9 % Low 36.0-46.0 [facility] Comment on above: Order Comment: Speci men Type: BLOOD SPECIMEN Performed By: #### 4 091-5 #### [facility] CLIA [id number] [address] [place] [address] Hemoglobin (Bld) [Mass/Vol] 7.3 g/dL Low 11.5-15.5 [facility] Comment on above: Order Comment: Speci men Type: BLOOD SPECIMEN Performed By: #### 4 091-5 #### [facility] CLIA [id number] [address] [place] [address] MCH (RBC) [Entitic mass] 28.7 pg Normal 26.0-34.0 [facility] Comment on above: Order Comment: Speci men Type: BLOOD SPECIMEN Performed By: #### 4 091-5 #### [facility] CLIA [id number] [address] [place] [address] MCHC (RBC) [Mass/Vol] 31.9 g/dL Normal 30.5-36.0 [facility] Comment on above: Order Comment: Speci men Type: BLOOD SPECIMEN Performed By: #### 4 091-5 #### [facility] CLIA [id number] [address] [place] [address] MCV (RBC) [Entitic vol] 90.2 fL Normal 80.0-100.0 [facility] Comment on above: Order Comment: Speci men Type: BLOOD SPECIMEN Performed By: #### 4 091-5 #### [facility] CLIA [id number] [address] [place] [address] Nucleated RBC (Bld) [#/Vol] 10*3/uL Normal <0.01 [facility] Comment on above: Order Comment: Speci men Type: BLOOD SPECIMEN Performed By: #### 4 091-5 #### [facility] CLIA [id number] [address] [place] [address] Platelet mean volume (Bld) [Entitic vol] 9.2 fL Normal 9.0-12.7 [facility] Comment on above: Order Comment: Speci men Type: BLOOD SPECIMEN Performed By: #### 4 091-5 #### [facility] CLIA [id number] [address] [place] [address] Platelets (Bld) [#/Vol] 244 10*3/uL Normal 150-400 [facility] Comment on above: Order Comment: Speci men Type: BLOOD SPECIMEN Performed By: #### 4 091-5 #### [facility] CLIA [id number] [address] [place] [address] RBC (Bld) [#/Vol] 2.54 10*6/uL Low 3.90-5.20 [facility] Comment on above: Order Comment: Speci men Type: BLOOD SPECIMEN Performed By: #### 4 091-5 #### [facility] CLIA [id number] [address] [place] [address] WBC (Bld) [#/Vol] 8.46 10*3/uL Normal 3.70-11.00 [facility] Comment on above: Order Comment: Speci men Type: BLOOD SPECIMEN Performed By: #### 4 091-5 #### [facility] CLIA [id number] [address] [place] [address] CNDSon 11-22-2020 CNDS HNO ID: [id number] Author: Luis Miguel Snyder Service: Neurosurgery Author Type: Nurse Practitioner Type: Discharge Summary Filed: 11/22/2020 1:15 PM Note Text: DISCHARGE SUMMARY PATIENT NAME: Marcos Shelton Code Status: Not on file ADMISSION DATE: DISCHARGE DATE: November 22, 2020 Highest Readmission Risk Score: 6 The 30 day readmissions risk score is derived from an internally validated risk model which evaluates patient level characteristics, utilization history, medication orders and lab results up until the day of discharge. Patients with a score of 40 or above are considered highest risk for readmission. Specific patient level drivers will be listed at the bottom of the summary. REASON FOR HOSPITALIZATION: Revision of complex lumbar wound DIAGNOSIS: Active Problems: Spondylolisthesis, lumbar region Resolved Problems: * No resolved hospital problems. * HOSPITAL COURSE: You presented for revision of a complex lumbar wound. Surgery went as planned without complication. All previous hardware was removed and a wound vac and post-op drain was placed during the procedure. You were then taken to recovery and ultimately to 8100 for excellent nursing care, pain control and therapy. The first day after surgery you noticed some pain around the surgical site, but stated it was relatively well controlled with pain medication. You had some blood pressure issues with opioid pain medications post-operatively, and you elected to not take pain medication because you wanted your blood pressure to be controlled. On this day you also saw the Infectious Disease team for start of antibiotic therapy.The second day after surgery you were in a little more pain, but you were able to work with therapy. The third and fourth days after surgery your pain continued to improve. On the third day after surgery a PICC line was placed in preparation for IV antibiotics after discharge, and on the forth day we were able to take the post-op drain out, leaving the wound vac on. Infectious disease also changed antibiotics because your kidneys were not tolerating the first medication well enough to continue after discharge. Ultimately you were found stable for discharge. CONSULTING TEAMS DURING HOSPITALIZATION: Hospital Medicine: Emili Joseph Infectious Disease: Dr. Ye Browning Wound/Ostomy Care PATIENT CONDITION AT DISCHARGE: Stable DISCHARGE DISPOSITION: Home with Home Health Care INFORMATION PROVIDED TO PATIENT: see D/C instructions ALLERGIES No Known Allergies DISCHARGE MEDICATION: Current Discharge Medication List START taking these medications cyclobenzaprine (FLEXERIL) 10 mg Take 10 mg by mouth three times daily as needed for Muscle Spasm. Qty: 15 tablet Refills: 0 oxyCODONE-acetaminophen (PERCOCET) 1 tablet Take 1 tablet by mouth every 6 hours as needed for Pain (acute post-op pain). Qty: 20 tablet Refills: 0 Associated Diagnoses:Spondylolisthesi s, lumbar region DAPTOmycin 500 mg in NaCl 0.9% 50 mL (CUBICIN) 500 mg Inject 500 mg intravenously every 48 hours. CONTINUE these medications which have CHANGED rosuvastatin (CRESTOR) 40 mg Take 40 mg by mouth once daily. Qty: 30 tablet Refills: 0 CONTINUE these medications which have NOT CHANGED levETIRAcetam (KEPPRA) 500 mg Take 500 mg by mouth twice daily. cholecalciferol (VITAMIN D3) 5,000 Units Take 5,000 Units by mouth once daily. calcitriol (ROCALTROL) 0.25 mcg Take 0.25 mcg by mouth once daily. hydrOXYzine HCl (ATARAX) 25 mg Take 25 mg by mouth every 6 hours as needed. furosemide (LASIX) 40 mg Take 40 mg by mouth every 48 hours. omeprazole (PriLOSEC) 40 mg Take 40 mg by mouth once daily. metoprolol tartrate (short acting) (LOPRESSOR) 25 mg Take 25 mg by mouth once daily. temazepam (RESTORIL) 30 mg Take 30 mg by mouth daily at bedtime. montelukast sodium(SINGULAIR 10 MG TAB) take one tablet by mouth daily Refills: 0 VITAMIN B-6 100 mg tablet take 1 tablet by mouth once daily Qty: 100 tablet Refills: 2 Multivitamin with Iron-Mineral 1 tablet Take 1 tablet by mouth once daily. Qty: 100 tablet Refills: 2 linaCLOtide (LINZESS) 290 mcg Take 290 mcg by mouth as needed. cyanocobalamin, vitamin B-12, (VITAMIN B-12 INJECTION) by INJECTION(UNSPECIFIED PARENTERAL ROUTES) route once every month. NITROGLYCERIN 0.4 MG SUBLINGUAL TAB Dissolve under the tongue every 5 minutes as needed. Usual dose for angina is 1 tablet every 5 minutes for maximum of 3 doses in 15 minutes. Refills: 0 albuterol (PROVENTIL) 1-2 Puffs Inhale 1-2 Puffs as instructed every 4 hours as needed. SHAKE WELL BEFORE USING Refills: 0 STOP taking these medications aspirin, enteric coated (ASPIRIN, ENTERIC COATED) 81 mg Comments: Reason for Stopping: I evaluated the patient, and have reviewed their diagnosis and clinical course. They were evaluated for non-narcotic pain medications as the sole course of t (more content not included)... [facility] CONSULT PROGon 11-22-2020 CONSULT PROG HNO ID: [id number] Author: Libra Paulino) Leah Service: Wound/Ostomy Author Type: Nurse Practitioner Type: Consult Progress Note Filed: 11/22/2020 12:19 PM Note Text: Wound Care Consult Team Assessment Note: PATIENT NAME: Marcos Shelton Reason for Assessment: Wound care consulted to change Prevena dressing on lumbar spine to a Prevena plus machine for upcoming discharge. Requested by: Neurosurgery Assessment: Prevena dressing intact to lumbar spine incision and currently connected to hospital vac unit. Wound Evaluation: no assessment completed today of surgical site. Goals: Heal wound Recommendations: Prevena dressing on lumbar spine connected to prevena plus machine. Patient was educated on troubleshooting machine and provided user manual to take home. Electronically Signed By: Libra Lynn APRN.CNP CWOCN [facility] THERAPY NTon 11-22-2020 THERAPY NT HNO ID: [id number] Author: Anastasiia OrellanaPtShaylee Santamaria Service: Physical Therapy Author Type: Physical Therapist Type: Therapy (PT/OT/Speech/Resp) Filed: 11/22/2020 12:11 PM Note Text: Physical Therapy Treatment SERVICE DATE: 11/22/2020 SERVICE TIME: 1118 to 1141 ROOM: [id number] Recommended Discharge Disposition: Home PT Recommended Discharge Disposition Comments: Patient to benefit from Home PT to improve strength and progress independence with functional mobility Anticipated Discharge Needs: Physical Assist at Home Physical Assist at Home for: Cleaning;Laundry;Meals;Nimco pping;Transportation PT 6 Clicks Score: 20 Patient progressing well towards goals. Patient requires decreased assistance with bed mobility and able to tolerate increased standing activity with longer distance ambulation. Patient BP remained stable throughout session and patient declined dizziness/lightheadedness throughout session. Continue to recommend Home PT at discharge. Precautions/Activity Restrictions: Fall Risk;Spine;Lines/Tubes/Jayashree ins Precaution/Activity Restriction Comments: wound vac, drain Current Hospital Course: 70 year old female s/p IANDD lumbar wound 11/18/20, PICC line 11/21/20 Reason for Hospital Admission: IANDD lumbar wound Relevant Past Medical History: 8 month lumbar draining wound, HTN, RA, COPD, CAD, PVD Response to Therapy Interventions: Good participation in activities, Notable progression with functional activities/skills, Pain Continue skilled needs due to: Continued monitoring of vital signs during mobility required, Functional mobility/skill impairments Physical Therapy Problem List: Pain;Decreased Activity Tolerance;Decreased Strength;Functional Mobility Impairment;Balance Impaired Treatment Interventions: Education;Energy Conservation Training;Strengthening;Fun ctional Mobility Training Plan for next visit: Gait training, Standing Tolerance, Walker Training Home Environment Patient Lives With: Spouse Assistance Available: 24 Hour Entry To Home: Stairs Number Of Stairs Into Home: 1 Number Of Stairs To Bed/Bath: 0 Tub/Shower Type: walk in shower Laundry: main floor, spouse will complete Equipment Owned: Rollator;Shower Chair;Cane Prior Functional Level: Required Assistance Assistance Required With: Shopping;Transportation Prior Functional Level Comments: Patient reports ambulating with rollator, reports independence with self care, spouse completes IADL's and drives Patient Report: Patient pleasant and agreeable to PT session Vital Signs Pre Assessment: BP Pre BP: 129/57 Pre BP Position: Sitting Post Assessment: BP Post (in chair after ambulation) Post BP: 138/54 Post BP Position: Sitting CURRENT FUNCTIONAL STATUS: Most recent performance mobility performed during session in bold, other mobility completed during prior session and may no longer be correct or appropriate to complete. Current Functional Mobility Assist Level Additional Information Rolling Stand By Assistance Supine to Sit Stand By Assistance Sit to Supine Contact Guard Assistance;Additional Information Scooting Stand By Assistance Sit to Stand Contact Guard Assistance;Additional Information cues for proper hand placement, cues to power through legs Stand to Sit Contact Guard Assistance;Additional Information cues to reach back for armrests once back of legs are touching chair, cues to slowly lower bottom Bed to Chair Toilet/Commode Minimal Assistance Gait Contact Guard Assistance;Additional Information Gait Device: Rollator Gait Distance (feet): 100' x 2 cues for upright posture, cues to keep feet close to rollator for improved stability and balance with ambulation, patient with slow paced gait, no loss of balance/lateral sway, no dizziness reported Stairs Curb Step Car Transfer Blank carroll indicate activity not attempted General Deviations/Observations: Cassi decreased;Step length decreased;Non-functional gait speed Balance: Static Sitting;Dynamic Sitting;Static Standing;Dynamic Standing Static Sitting Balance: Normal Patient able to maintain steady balance without handhold support Dynamic Sitting Balance: Normal Patient accepts maximal challenge and can shift weight easily within full range in all directions Static Standing Balance: Good Patient able to maintain balance without handhold support, limited postural sway Dynamic Standing Balance: Fair Patient accepts minimal challenge, able to maintain balance while turning head/trunk Activity Tolerance: Standing Activity Standing Activity: gait Standing Activity Tolerance (in minutes): 8 JH-HLM: 7: Walk 25 feet or more Learning/Educational Needs: Functional Activities/Mobility;Precau tions;Rehabilitation Techniques and Procedures Goals for Plan of Care: Patient /Caregiver Goals: Go Home Goals: Patient will demonstrate progress with functional mobility to allow safe discharge to home with available (more content not included)... Normal [facility] ALLIED HEALTHon 11-21-2020 ALLIED HEALTH HNO ID: [id number] Author: Jessica Flores Service: Radiology Author Type: Management Lecturer Type: Allied Health Filed: 11/21/2020 1:56 PM Note Text: Radiology Service Progress Note PATIENT NAME: Marcos Shelton DATE OF SERVICE: November 21, 2020 TIME: 1:56 PM PATIENT IDENTITY VERIFICATION COMPLETED USING TWO (2) IDENTIFIERS: Name and Date of confirmed by patient verbally and Name and Date of confirmed by identification band. FALL SCREENING: Has the patient had 2 falls in the last year or 1 fall with injury or currently using an Ambulatory Assistive Device (Walker, Cane, Wheelchair, Crutches, etc.)? Inpatient: Screened on floor PATIENT GENDER DATA: Female. status: : No status: NO. PATIENT RELEVANT IMPLANT DATA REVIEWED: Not Applicable RADIOLOGY DEPARTMENT: Interventional Radiology PERIPHERAL IV DATA: Not applicable SIGNED BY: JESSICA FLORES November 21, 2020 1:56 PM [facility] BRIEF OP NOTon 11-21-2020 BRIEF OP NOT HNO ID: [id number] Author: Lul Peraza Service: Vascular Surgery Author Type: Physician Type: Brief Op Note Filed: 11/21/2020 1:57 PM Note Text: BRIEF OPERATIVE / PROCEDURE NOTE LOG ID: [id number] SURGERY/PROCEDURE DATE: 11/21/2020 INCISION/PROCEDURE START TIME: 1:38 PM INCISION CLOSE/PROCEDURE END TIME: 1:47 PM SURGEON(S)/PROCEDURALIST(S ) AND PROPERTY ADMINISTRATOR(S): Surgeon(s) and Role: * Lul Peraza - Primary No Additional Staff SURGERY/PROCEDURE(S): Tunneled PICC insertion ANESTHESIA: Local FINDINGS: R IJ ESTIMATED BLOOD LOSS: 0 ml SPECIMENS: None COMPLICATIONS: None PRE-OP/PRE-PROCEDURE DIAGNOSIS: halfway ABX POST-OP/POST-PROCEDURE DIAGNOSIS: Same as Preop SIGNATURE: Lul Peraza MD PATIENT NAME: Marcos Shelton DATE: November 21, 2020 TIME: 1:55 PM Normal [facility] Basic metabolic 2000 panelon 11-21-2020 Anion gap [Moles/Vol] 8 mmol/L Low 9-18 [facility] Comment on above: Order Comment: Speci men Type: BLOOD SPECIMEN Performed By: #### H CT, HGB #### [facility] CLIA [id number] [address] [place] [address] Calcium [Mass/Vol] 8.2 mg/dL Low 8.5-10.2 [facility] Comment on above: Order Comment: Speci men Type: BLOOD SPECIMEN Performed By: #### H CT, HGB #### [facility] CLIA [id number] [address] [place] [address] Chloride [Moles/Vol] 108 mmol/L High 97-105 [facility] Comment on above: Order Comment: Speci men Type: BLOOD SPECIMEN Performed By: #### H CT, HGB #### [facility] CLIA [id number] [address] [place] [address] CO2 [Moles/Vol] 22 mmol/L Normal 22-30 [facility] Comment on above: Order Comment: Speci men Type: BLOOD SPECIMEN Performed By: #### H CT, HGB #### [facility] CLIA [id number] [address] [place] [address] Creatinine [Mass/Vol] 2.18 mg/dL High 0.58-0.96 [facility] Comment on above: Order Comment: Speci men Type: BLOOD SPECIMEN Performed By: #### H CT, HGB #### [facility] CLIA [id number] [address] [place] [address] GFR/1.73 sq M.predicted MDRD (S/P/Bld) [Vol rate/Area] 27 mL/min/{1.73_m2} Normal [facility] Comment on above: Order Comment: Speci men Type: BLOOD SPECIMEN Result Comment: 22 eGFR (Estimated GFR) Units of measure: mL/min/1.73 meters squared eGFR is derived from the reexpressed MDRD Study equation using the following parameters: serum creatinine, age, gender and race. The creatinine assay has been calibrated to be traceable to [employer]. An eGFR <60 mL/min/1.73m2 for >3 months is consistent with chronic kidney disease. Refer to KDOQI guidelines for clinical interpretation. In patients with unstable renal function, e.g. those with acute kidney injury, the eGFR may not accurately reflect actual GFR. Performed By: #### H CT, HGB #### [facility] CLIA [id number] [address] [place] [address] Glucose [Mass/Vol] 95 mg/dL Normal 74-99 [facility] Comment on above: Order Comment: Speci men Type: BLOOD SPECIMEN Result Comment: The [place] Diabetes Association (ADA) provides guidance for cutoff values for fasting glucose and random glucose. The ADA defines fasting as no caloric intake for at least 8 hours. Fasting plasma glucose results between 100 to 125 mg/dL indicate increased risk for diabetes (prediabetes). Fasting plasma glucose results greater than or equal to 126 mg/dL meet the criteria for diagnosis of diabetes. In the absence of unequivocal hyperglycemia, results should be confirmed by repeat testing. In a patient with classic symptoms of hyperglycemia or hyperglycemic crisis, random plasma glucose results greater than or equal to 200 mg/dL meet the criteria for diagnosis of diabetes. Reference: Standards of Medical Care in Diabetes 2016, [place] [employer]. Diabetes Care. 2016.39(Suppl 1). Performed By: #### H CT, HGB #### [facility] CLIA [id number] [address] [place] [address] Potassium [Moles/Vol] 4.0 mmol/L Normal 3.7-5.1 [facility] Comment on above: Order Comment: Speci men Type: BLOOD SPECIMEN Performed By: #### H CT, HGB #### [facility] CLIA [id number] [address] [place] [address] Sodium [Moles/Vol] 138 mmol/L Normal 136-144 [facility] Comment on above: Order Comment: Speci men Type: BLOOD SPECIMEN Performed By: #### H CT, HGB #### [facility] [facility] CLIA [id number] [address] [place] [address] Urea nitrogen [Mass/Vol] 21 mg/dL Normal 7-21 [facility] Comment on above: Order Comment: Speci men Type: BLOOD SPECIMEN Performed By: #### H CT, HGB #### [facility] CLIA [id number] [address] [place] [address] CBC panel Auto (Bld)on 11-21 Erythrocyte distribution width (RBC) [Ratio] 13.7 % Normal 11.5-15.0 [facility] Comment on above: Order Comment: Speci men Type: BLOOD SPECIMEN Performed By: #### 4 091-5 #### [facility] CLIA [id number] [address] [place] [address] Hematocrit (Bld) [Volume fraction] 24.5 % Low 36.0-46.0 [facility] Comment on above: Order Comment: Speci men Type: BLOOD SPECIMEN Performed By: #### 4 091-5 #### [facility] CLIA [id number] [address] [place] [address] Hemoglobin (Bld) [Mass/Vol] 8.0 g/dL Low 11.5-15.5 [facility] Comment on above: Order Comment: Speci men Type: BLOOD SPECIMEN Performed By: #### 4 091-5 #### [facility] CLIA [id number] [address] [place] [address] MCH (RBC) [Entitic mass] 29.7 pg Normal 26.0-34.0 [facility] Comment on above: Order Comment: Speci men Type: BLOOD SPECIMEN Performed By: #### 4 091-5 #### [facility] CLIA [id number] [address] [place] [address] MCHC (RBC) [Mass/Vol] 32.7 g/dL Normal 30.5-36.0 [facility] Comment on above: Order Comment: Speci men Type: BLOOD SPECIMEN Performed By: #### 4 091-5 #### [facility] CLIA [id number] [address] [place] [address] MCV (RBC) [Entitic vol] 91.1 fL Normal 80.0-100.0 [facility] Comment on above: Order Comment: Speci men Type: BLOOD SPECIMEN Performed By: #### 4 091-5 #### [facility] CLIA [id number] [address] [place] [address] Nucleated RBC (Bld) [#/Vol] 10*3/uL Normal <0.01 [facility] Comment on above: Order Comment: Speci men Type: BLOOD SPECIMEN Performed By: #### 4 091-5 #### [facility] CLIA [id number] [address] [place] [address] Platelet mean volume (Bld) [Entitic vol] 9.1 fL Normal 9.0-12.7 [facility] Comment on above: Order Comment: Speci men Type: BLOOD SPECIMEN Performed By: #### 4 091-5 #### [facility] CLIA [id number] [address] [place] [address] Platelets (Bld) [#/Vol] 236 10*3/uL Normal 150-400 [facility] Comment on above: Order Comment: Speci men Type: BLOOD SPECIMEN Performed By: #### 4 091-5 #### [facility] CLIA [id number] [address] [place] [address] RBC (Bld) [#/Vol] 2.69 10*6/uL Low 3.90-5.20 [facility] Comment on above: Order Comment: Speci men Type: BLOOD SPECIMEN Performed By: #### 4 091-5 #### [facility] CLIA [id number] [address] [place] [address] WBC (Bld) [#/Vol] 9.01 10*3/uL Normal 3.70-11.00 [facility] Comment on above: Order Comment: Speci men Type: BLOOD SPECIMEN Performed By: #### 4 091-5 #### [facility] CLIA [id number] [address] [place] [address] CONSULT PROGonell 11-21-2020 CONSULT PROG HNO ID: [id number] Author: Magnus Rodriguez (Pharmacist) Service: Pharmacy Author Type: Pharmacist Type: Consult Progress Note Filed: 11/21/2020 4:24 PM Note Text: PHARMACY VANCOMYCIN DOSING NOTE Patient Name: Marcos Shelton Admission Date: 11/18/2020 Date of Consult: 11/21/2020 Time of Consult: 4:23 PM Indication: Bone AND joint infection Goal Range: 10-20 mcg/mL RECOMMENDATIONS/PLAN: Pharmacy consulted for vancomycin dosing for Marcos Shelton, a 70 year old, female who is being treated with vancomycin for Bone AND joint infection 1. The primary service has discontinued vancomycin therapy. Pharmacy vancomycin dosing service will sign off. Thank you for allowing us to participate in this patient's care. Please contact pharmacy if questions. Magnus Rodriguez, Pharmacist [id number] [facility] CONSULT PROG HNO ID: [id number] Author: Magnus Rodriguez (Pharmacist) Service: Pharmacy Author Type: Pharmacist Type: Consult Progress Note Filed: 11/21/2020 12:30 PM Note Text: PHARMACY VANCOMYCIN DOSING NOTE Patient Name: Marcos Shelton Admission Date: 11/18/2020 Date of Consult: 11/21/2020 Time of Consult: 12:08 PM Indication: Bone AND joint infection Goal Range: 10-20 mcg/mL ((Targeting 15-20 for indication) RECOMMENDATIONS/PLAN: Pharmacy consulted for vancomycin dosing for Marcos Shelton, a 70 year old, female who is being treated with vancomycin for Bone AND joint infection 1. Patient is currently ordered Vancomycin dosed by level. Today is day #4 of therapy. 2. The most recent vancomycin level was 13.6 mcg/mL drawn at 0842 on 11/21/20. This is a ~48 hour level on the 4th day of therapy. Vancomycin 1.25 g x 1 dose ordered today. 3. The present dose of vancomycin is the recommended dosage for this patient at this time. Continue therapy as prescribed. 4. The next vancomycin level has been ordered for 11/22/20 @ 1200 (Completed) We will follow patient renal function, vancomycin levels and doses with you during the course of therapy. Additional recommendations will appear in follow up notes. If you have any questions, please contact Pharmacy at [phone]. Age: [age] year old Allergies: ALLERGIES Allergen Reactions - Colesevelam Unknown - Nitrofurantoin Unknown - Penicillins Other: See Comments, Unknown - Hydrocortisone Unknown - Macrobid [Nitrofura* - Metolazone Unknown - Pravastatin Unknown - Sulfa (Sulfonamide * Unknown - Tramadol GI Upset Last 3 Encounter Wt Readings: Date: Wt: 11/07/2020 76.2 kg (168 lb) 11/01/2020 84.6 kg (186 lb 8.2 oz) 11/01/2020 74.4 kg (164 lb) Last 1 Encounter Ht Readings: Date: Ht: 11/07/2020 162.6 cm (5' 4) CrCl: 26 mL/min Temp (24hrs), Av.2 ?C (98.9 ?F), Min:36.3 ?C (97.3 ?F), Max:38.2 ?C (100.8 ?F) - Current Temp: 36.6 ?C (97.9 ?F) Labs BUN (mg/dL) Date Value 11/21/2020 21 11/20/2020 22 (H) 11/07/2020 23 (H) 08/27/2020 36 (H) 05/07/2020 21 01/01/2020 25 (H) Creatinine (mg/dL) Date Value 11/21/2020 2.18 (H) 11/20/2020 2.24 (H) 11/07/2020 1.74 (H) 08/27/2020 1.75 (H) 05/07/2020 1.47 (H) 01/01/2020 1.48 (H) WBC (k/uL) Date Value 11/21/2020 9.01 11/20/2020 10.83 11/07/2020 10.11 08/27/2020 9.27 05/07/2020 7.79 04/23/2020 8.92 Vancomycin Levels: Vancomycin (ug/mL) Date/Time Value 11/21/2020 0842 13.6 11/20/2020 0935 23.6 (H) Magnus Rodriguez, Pharmacist [id number] [facility] IR TUNNELED PICC INSERTIONon 11-21-2020 IR TUNNELED PICC INSERTION * * *Final Report* * * DATE OF EXAM: Nov 21 2020 1:00PM [place] [id number] - IR TUNNELED PICC INSERTION / PROCEDURE REASON: Epidural abscess * * * * Physician Interpretation * * * * EXAM TITLE: ULTRASOUND AND FLUOROSCOPY GUIDED TIME OF PICC LINE PLACEMENT DATE: November 21, 2020 COMPARISON: None. CLINICAL INDICATION/HISTORY: Patient is a 62-year-old female with need for long-term antibiotics. Tunneled PICC line is been requested. TECHNIQUE: The risks, benefits, and alternatives to the procedure were explained to the patient and she agrees to the procedure. All elements of maximal barrier technique including mask, sterile gown, sterile gloves, large sterile drape, appropriate hand hygiene, and appropriate prep agent were utilized. The patient's supraclavicular area and neck was prepped and draped. Ultrasound identified an appropriate skin entrance site to access the internal jugular vein this was anesthetized. With ultrasound guidance a micropuncture needle was directed into the internal jugular vein. Utilizing guidewire exchange and Seldinger technique a peel-away sheath was placed. After measuring the appropriate length of the catheter and cutting the tip at length the single lumen PICC line was tunneled from the skin entrance site laterally over the clavicle to the peel-away sheath and then passed down the peel-away sheath and positioned with its tip near the superior vena cava right atrial junction. The lumens of the catheter were flushed appropriately. The skin entrance site for the tunneled sheath was stitched and bandaged. The tunnel PICC line was secured to the skin and bandaged. There were no apparent complications FINDINGS: The tunneled PICC line enters the right internal jugular vein and ends with its tip near the superior vena cava right atrial junction. Internal length is 18 cm in external line is 2 cm. IMPRESSION: Technically successful placement of tunneled PICC line. Presentation Team Member: TARA Transcribe Date/Time: Nov 21 2020 2:04P Dictated by : LUL PERAZA MD This examination was interpreted and the report reviewed and electronically signed by: LUL PERAZA MD on Nov 21 2020 2:05PM EST [id number] Normal [facility] Vancomycin random [Mass/Vol] on 11-21-2020 Vancomycin [Mass/Vol] 13.6 ug/mL Normal 10.0-20.0 [facility] Comment on above: Order Comment: Speci men Type: BLOOD SPECIMEN Result Comment: Refe rence ranges and high/low indicator flags are provided as general guidelines only. The treating physician must determine appropriate target levels/dosing based on the specific clinical situation. Performed By: #### 4 091-5 #### [facility] CLIA [id number] [address] [place] [address] ANES POSTPROC EVALon 021 ANES POSTPROC EVAL HNO ID: [id number] Author: Zahra Corona Service: Anesthesiology Author Type: Physician Type: Anesthesia Postprocedure Evaluation Filed: 11/20/2020 8:53 PM Note Text: POST ANESTHESIA EVALUATION NOTE : 1950 Procedure Summary Date: 11/18/20 Room / Location: [place] OR / [place] OR Anesthesia Start: 1105 Anesthesia Stop: 1345 Procedures: Complex revision of lumbar wound (Bilateral Back) SECONDARY CLOSURE WOUND BACK (Bilateral Back) Diagnosis: Wound dehiscence (Wound dehiscence [T81.30XA]) Surgeons: Sameer Perez Responsible Provider: Zahra Corona Anesthesia Type: general ASA Status: 3 Anesthesia Type: general Last vitals Vitals Value Taken Time BP 119/62 11/18/20 1730 Temp 36 ?C (96.8 ?F) 11/18/20 1530 HR SpO2 71 11/18/20 1732 Resp 20 11/18/20 1733 SpO2 100 % 11/18/20 1732 Vitals shown include unvalidated device data. Post Anesthesia Patient Status Patient Evaluation: PACU. Anticipated Disposition: inpatient floor planned admission. Neurological Status: aware and responsive. Pulmonary Status: breathing comfortably on room air Airway Control: returned to baseline unsupported. Cardiovascular Status: stable. Pain Management: clinically adequate Postoperative Hydration: acceptable. Intraoperative Events: no significant anesthesia events Post Operative Nausea/Vomiting Status: no significant post operative nausea or vomiting Anesthetic Observations: Recommendation: continue current plan of care and further care per PACU/ICU/floor team. No complications documented. SIGNATURE: Zahra Corona MD PATIENT NAME: Marcos Shelton DATE: November 20, 2020 TIME: 8:53 PM CSN: [id number] Normal [facility] Basic metabolic 2000 panelon 11-20-2020 Anion gap [Moles/Vol] 9 mmol/L Normal 9-18 [facility] Comment on above: Order Comment: Speci men Type: BLOOD SPECIMEN Performed By: #### 2 4321-2 #### [facility] CLIA [id number] [address] [place] [address] Calcium [Mass/Vol] 8.1 mg/dL Low 8.5-10.2 [facility] Comment on above: Order Comment: Speci men Type: BLOOD SPECIMEN Performed By: #### 2 4321-2 #### [facility] CLIA [id number] [address] [place] [address] Chloride [Moles/Vol] 103 mmol/L Normal 97-105 [facility] Comment on above: Order Comment: Speci men Type: BLOOD SPECIMEN Performed By: #### 2 4321-2 #### [facility] CLIA [id number] [address] [place] [address] CO2 [Moles/Vol] 23 mmol/L Normal 22-30 [facility] Comment on above: Order Comment: Speci men Type: BLOOD SPECIMEN Performed By: #### 2 4321-2 #### [facility] CLIA [id number] [address] [place] [address] Creatinine [Mass/Vol] 2.24 mg/dL High 0.58-0.96 [facility] Comment on above: Order Comment: Speci men Type: BLOOD SPECIMEN Performed By: #### 2 4321-2 #### [facility] CLIA [id number] [address] [place] [address] GFR/1.73 sq M.predicted MDRD (S/P/Bld) [Vol rate/Area] 26 mL/min/{1.73_m2} Normal [facility] Comment on above: Order Comment: Speci men Type: BLOOD SPECIMEN Result Comment: 22 eGFR (Estimated GFR) Units of measure: mL/min/1.73 meters squared eGFR is derived from the reexpressed MDRD Study equation using the following parameters: serum creatinine, age, gender and race. The creatinine assay has been calibrated to be traceable to IDMS. An eGFR <60 mL/min/1.73m2 for >3 months is consistent with chronic kidney disease. Refer to KDOQI guidelines for clinical interpretation. In patients with unstable renal function, e.g. those with acute kidney injury, the eGFR may not accurately reflect actual GFR. Performed By: #### 2 4321-2 #### [facility] CLIA [id number] [address] [place] [address] Glucose [Mass/Vol] 95 mg/dL Normal 74-99 [facility] Comment on above: Order Comment: Speci men Type: BLOOD SPECIMEN Result Comment: The [place] Diabetes Association (ADA) provides guidance for cutoff values for fasting glucose and random glucose. The ADA defines fasting as no caloric intake for at least 8 hours. Fasting plasma glucose results between 100 to 125 mg/dL indicate increased risk for diabetes (prediabetes). Fasting plasma glucose results greater than or equal to 126 mg/dL meet the criteria for diagnosis of diabetes. In the absence of unequivocal hyperglycemia, results should be confirmed by repeat testing. In a patient with classic symptoms of hyperglycemia or hyperglycemic crisis, random plasma glucose results greater than or equal to 200 mg/dL meet the criteria for diagnosis of diabetes. Reference: Standards of Medical Care in Diabetes 2016, [place] [employer] Association. Diabetes Care. 2016.39(Suppl 1). Performed By: #### 2 4321-2 #### [facility] CLIA [id number] [address] [place] [address] Potassium [Moles/Vol] 4.0 mmol/L Normal 3.7-5.1 [facility] Comment on above: Order Comment: Speci men Type: BLOOD SPECIMEN Performed By: #### 2 4321-2 #### [facility] CLIA [id number] [address] [place] [address] Sodium [Moles/Vol] 135 mmol/L Low 136-144 [facility] Comment on above: Order Comment: Speci men Type: BLOOD SPECIMEN Performed By: #### 2 4321-2 #### [facility] CLIA [id number] [address] [place] [address] Urea nitrogen [Mass/Vol] 22 mg/dL High 7-21 [facility] Comment on above: Order Comment: Speci men Type: BLOOD SPECIMEN Performed By: #### 2 4321-2 #### [facility] CLIA [id number] [address] [place] [address] CBC panel Auto (Bld)on 11-20 Erythrocyte distribution width (RBC) [Ratio] 13.7 % Normal 11.5-15.0 [facility] Comment on above: Order Comment: Speci men Type: BLOOD SPECIMEN Performed By: #### 4 091-5 #### [facility] CLIA [id number] [address] [place] [address] Hematocrit (Bld) [Volume fraction] 27.3 % Low 36.0-46.0 [facility] Comment on above: Order Comment: Speci men Type: BLOOD SPECIMEN Performed By: #### 4 091-5 #### [facility] CLIA [id number] [address] [place] [address] Hemoglobin (Bld) [Mass/Vol] 8.9 g/dL Low 11.5-15.5 [facility] Comment on above: Order Comment: Speci men Type: BLOOD SPECIMEN Performed By: #### 4 091-5 #### [facility] CLIA [id number] [address] [place] [address] MCH (RBC) [Entitic mass] 30.0 pg Normal 26.0-34.0 [facility] Comment on above: Order Comment: Speci men Type: BLOOD SPECIMEN Performed By: #### 4 091-5 #### [facility] CLIA [id number] [address] [place] [address] MCHC (RBC) [Mass/Vol] 32.6 g/dL Normal 30.5-36.0 [facility] Comment on above: Order Comment: Speci men Type: BLOOD SPECIMEN Performed By: #### 4 091-5 #### [facility] CLIA [id number] [address] [place] [address] MCV (RBC) [Entitic vol] 91.9 fL Normal 80.0-100.0 [facility] Comment on above: Order Comment: Speci men Type: BLOOD SPECIMEN Performed By: #### 4 091-5 #### [facility] CLIA [id number] [address] [place] [address] Nucleated RBC (Bld) [#/Vol] 10*3/uL Normal <0.01 [facility] Comment on above: Order Comment: Speci men Type: BLOOD SPECIMEN Performed By: #### 4 091-5 #### [facility] CLIA [id number] [address] [place] [id number] Platelet mean volume (Bld) [Entitic vol] 8.9 fL Low 9.0-12.7 [facility] Comment on above: Order Comment: Speci men Type: BLOOD SPECIMEN Performed By: #### 4 091-5 #### [facility] CLIA [id number] [address] [place] [address] Platelets (Bld) [#/Vol] 224 10*3/uL Normal 150-400 [facility] Comment on above: Order Comment: Speci men Type: BLOOD SPECIMEN Performed By: #### 4 091-5 #### [facility] CLIA [id number] [address] [place] [address] RBC (Bld) [#/Vol] 2.97 10*6/uL Low 3.90-5.20 [facility] Comment on above: Order Comment: Speci men Type: BLOOD SPECIMEN Performed By: #### 4 091-5 #### [facility] CLIA [id number] [address] [place] [id number] WBC (Bld) [#/Vol] 10.83 10*3/uL Normal 3.70-11.00 [facility] Comment on above: Order Comment: Speci men Type: BLOOD SPECIMEN Performed By: #### 4 091-5 #### [facility] CLIA [id number] [address] [place] [address] CONSULT PROGon 11-20-2020 CONSULT PROG HNO ID: [id number] Author: Magnus Rodriguez (Pharmacist) Service: Pharmacy Author Type: Pharmacist Type: Consult Progress Note Filed: 11/20/2020 11:06 AM Note Text: PHARMACY VANCOMYCIN DOSING NOTE Patient Name: Marcos Shelton Admission Date: 11/18/2020 Date of Consult: 11/20/2020 Time of Consult: 10:56 AM Indication: Bone AND joint infection Goal Range: 10-20 mcg/mL (Targeting 15-20 for indication) RECOMMENDATIONS/PLAN: Pharmacy consulted for vancomycin dosing for Marcos Shelton, a 70 year old, female who is being treated with vancomycin for Bone AND joint infection 1. Patient is currently ordered Vancomycin dosed by level. Today is day #3 of therapy. 2. The most recent vancomycin level was 23.6 mcg/mL drawn at 0935 on 11/20/20. This is a ~24 hour level on the 3rd day of therapy. 3. The present dose of vancomycin is the recommended dosage for this patient at this time. Continue therapy as prescribed. 4. The next vancomycin level has been ordered for 11/21/20 @ 0900 (Completed) We will follow patient renal function, vancomycin levels and doses with you during the course of therapy. Additional recommendations will appear in follow up notes. If you have any questions, please contact Pharmacy at [phone]. Age: [age] year old Allergies: ALLERGIES Allergen Reactions - Colesevelam Unknown - Nitrofurantoin Unknown - Penicillins Other: See Comments, Unknown - Hydrocortisone Unknown - Macrobid [Nitrofura* - Metolazone Unknown - Pravastatin Unknown - Sulfa (Sulfonamide * Unknown - Tramadol GI Upset Last 3 Encounter Wt Readings: Date: Wt: 11/07/2020 76.2 kg (168 lb) 11/01/2020 84.6 kg (186 lb 8.2 oz) 11/01/2020 74.4 kg (164 lb) Last 1 Encounter Ht Readings: Date: Ht: 11/07/2020 162.6 cm (5' 4) CrCl: 25.3 mL/min Temp (24hrs), Av.9 ?C (98.4 ?F), Min:36.6 ?C (97.9 ?F), Max:37.4 ?C (99.3 ?F) - Current Temp: 36.8 ?C (98.2 ?F) Labs BUN (mg/dL) Date Value 11/20/2020 22 (H) 11/07/2020 23 (H) 08/27/2020 36 (H) 05/07/2020 21 01/01/2020 25 (H) Creatinine (mg/dL) Date Value 11/20/2020 2.24 (H) 11/07/2020 1.74 (H) 08/27/2020 1.75 (H) 05/07/2020 1.47 (H) 01/01/2020 1.48 (H) WBC (k/uL) Date Value 11/20/2020 10.83 11/07/2020 10.11 08/27/2020 9.27 05/07/2020 7.79 04/23/2020 8.92 Vancomycin Levels: Vancomycin (ug/mL) Date/Time Value 11/20/2020 0935 23.6 (H) Magnus Rodriguez, Pharmacist [id number] [facility] CONSULT PROG HNO ID: [id number] Author: Magnus Rodriguez (Pharmacist) Service: Pharmacy Author Type: Pharmacist Type: Consult Progress Note Filed: 11/20/2020 9:09 AM Note Text: PHARMACY VANCOMYCIN DOSING NOTE Patient Name: Marcos Shelton Admission Date: 11/18/2020 Date of Consult: 11/20/2020 Time of Consult: 9:05 AM Indication: Bone AND joint infection Goal Range: 10-20 mcg/mL (Targeting 15-20 for indication) RECOMMENDATIONS/PLAN: Pharmacy consulted for vancomycin dosing for Marcos Shelton, a 70 year old, female who is being treated with vancomycin for Bone AND joint infection 1. Patient is currently ordered Vancomycin 1.25 g IV q24h. Today is day #2 of Consult, but #3 of therapy. 2. No vancomycin level has been drawn for this dosing regimen. 3. Serum creatinine and/or urine output have changed markedly in the previous days, therefore will discontinue vancomycin at this time and dose by level. 4. The next vancomycin level has been ordered for 11/20/20 @ 0930 (Completed) We will follow patient renal function, vancomycin levels and doses with you during the course of therapy. Additional recommendations will appear in follow up notes. If you have any questions, please contact Pharmacy at [phone]. Age: [age] year old Allergies: ALLERGIES Allergen Reactions - Colesevelam Unknown - Nitrofurantoin Unknown - Penicillins Other: See Comments, Unknown - Hydrocortisone Unknown - Macrobid [Nitrofura* - Metolazone Unknown - Pravastatin Unknown - Sulfa (Sulfonamide * Unknown - Tramadol GI Upset Last 3 Encounter Wt Readings: Date: Wt: 11/07/2020 76.2 kg (168 lb) 11/01/2020 84.6 kg (186 lb 8.2 oz) 11/01/2020 74.4 kg (164 lb) Last 1 Encounter Ht Readings: Date: Ht: 11/07/2020 162.6 cm (5' 4) CrCl: 25.3 mL/min Temp (24hrs), Av.9 ?C (98.5 ?F), Min:36.6 ?C (97.9 ?F), Max:37.4 ?C (99.3 ?F) - Current Temp: 36.9 ?C (98.4 ?F) Labs BUN (mg/dL) Date Value 11/20/2020 22 (H) 11/07/2020 23 (H) 08/27/2020 36 (H) 05/07/2020 21 01/01/2020 25 (H) Creatinine (mg/dL) Date Value 11/20/2020 2.24 (H) 11/07/2020 1.74 (H) 08/27/2020 1.75 (H) 05/07/2020 1.47 (H) 01/01/2020 1.48 (H) WBC (k/uL) Date Value 11/20/2020 10.83 11/07/2020 10.11 08/27/2020 9.27 05/07/2020 7.79 04/23/2020 8.92 Vancomycin Levels: No results found for: TAYLER Rodriguez, Pharmacist [id number] [facility] NURSING PROGon 11-20-2020 NURSING PROG HNO ID: [id number] Author: Shi (Rn) REN Kearns Service: ? Author Type: Registered Nurse Type: Nursing Progress Note Filed: 11/20/2020 3:39 PM Note Text: Nursing Progress Note [employer] Assessment Note Patient Name: Marcos Shelton Patient Location: [place] [address] [address]* Patient Vitals for the past 4 hrs: BP Temp Temp src Pulse Resp SpO2 11/20/20 1538 (!) 110/40 ? 11/20/20 1524 (!) 108/37 36.3 ?C (97.3 ?F) Oral 74 20 98 % Status Change Related to: Other Issues (See Nursing Clinical Assessment For Details) The Following People Were Notified: Attending Physician Caregiver/Provider: Dr. Zhang See Documentation Related to: Additional Comments : This note was completed by: Shi Kearns RN [facility] NURSING PROG HNO ID: [id number] Author: Shi (Rn) REN Kearns Service: ? Author Type: Registered Nurse Type: Nursing Progress Note Filed: 11/20/2020 11:41 AM Note Text: Nursing Progress Note Patient Name: Marcos Shelton Patient Location: [place] [address]/[id number]- Daily Note: Spoke with TIM Austin from neurosurgery, stated okay for patient to have 1 percocet due to BP. Notified Dr. Zhang of patients bp 103/65. Metoprolol held at this time. This note was completed by: Shi Kearns RN [facility] Vancomycin random [Mass/Vol] on 11-20-2020 Vancomycin [Mass/Vol] 23.6 ug/mL High 10.0-20.0 [facility] Comment on above: Order Comment: Speci men Type: BLOOD SPECIMEN Result Comment: Refe rence ranges and high/low indicator flags are provided as general guidelines only. The treating physician must determine appropriate target levels/dosing based on the specific clinical situation. Performed By: #### 4 091-5 #### [facility] CLIA [id number] [address] [place] [address] ALLIED HEALTH 11-19-2020 ALLIED HEALTH HNO ID: [id number] Author: Lita Rodrigez Service: Spiritual Care Author Type: Student Type: Allied Health Filed: 11/19/2020 4:07 PM Note Text: Summary: Spiritual Care Visit SPIRITUAL CARE PROGRESS NOTE SERVICE DATE: 11/19/2020 SERVICE TIME: 1:20pm Provided compassionate presence and empathic, reflective listening for patient during it architecture analyst rounds. Ended with prayer with patient's approval. To contact the Spiritual Care Department: Please call [phone]. SIGNATURE: Lita Rodrigez, Student PATIENT NAME: Marcos Shelton DATE: November 19, 2020 TIME: 4:05 PM PAGER/CONTACT #: [phone] [facility] CONSULTon 11-19-2020 CONSULT HNO ID: [id number] Author: Denise Gunter Service: Hospital Medicine Author Type: Physician Type: Consults Filed: 11/19/2020 1:41 PM Note Text: DEPARTMENT OF HOSPITAL MEDICINE INITIAL CONSULT SERVICE DATE: 11/19/2020 SERVICE TIME: 7:17 AM Primary Care Physician: Bell Maher MD NIGHT AND WEEKEND COVERAGE: From 7am - 7pm, please call SOUND After 7pm, please call cross cover pager #[phone] REQUESTING PHYSICIAN: Dr. Perez REASON FOR CONSULT: Seizures hx, GERD/Barretts, HTN Subjective CHIEF COMPLAINT: Back pain HPI: This is a 70 year old female with PMH below and nonhealing back wound presenting for closure/revision lumbar wound. The patient had initial surgery in 2017. About 8 months a chronic wound started draining and she states she has been having issues with pain ever since. Yesterday she had lumbar reexploration/laminectomy with evacuation of epidural abscess, removal of implanted pedicle, and placment of vaccuum device. Today, she complains of lower back that is controlled with current meds. She is tolerating PO food. She has not had a BM. She denies CP, SOB, NVD, headache, fever/chills or abdominal pain. She has not had seizures in 4 months, continues on keppra. PAST MEDICAL HISTORY Diagnosis Date - Abdominal pain, right upper quadrant - Acid reflux - Anemia associated with chronic renal failure 01/02/2020 - Asthma - Callaway's esophagus - CAD (coronary artery disease) - Constipation - Diverticulitis - Early satiety - Essential hypertension, benign - Fatigue - Heart disease - Hemorrhoids - Loss of weight - Mitral valve disorders(424.0) with prolapse, needs abx prophylaxis - Other and unspecified hyperlipidemia - PVD (peripheral vascular disease) (HCC) - Rheumatoid arthritis(714.0) - Seizure (HCC) - Wound dehiscence PAST SURGICAL HISTORY Procedure Laterality Date - APPENDECTOMY - BACK SURGERY HX 2009 lami and fusion L45 for spondylolisthesis - CC PTCA STENT 2009 - COLONOS W/REM POLYP SNARE 09/05/09 repeat in - EXCIS BREAST LESION rt - PAST SURGICAL HISTORY OF Left foot - PAST SURGICAL HISTORY OF Right shoulder - PAST SURGICAL HISTORY OF Right hip surgery - REVASCULARIZATION ILIAC ART ANGIOP EA IPSI VSL bilateral - REVISE MEDIAN N/CARPAL TUNNEL SURG x 2 Carpal tunnel decomp - TOTAL ABDOM HYSTERECTOMY Hysterectomy, AMALIA FAMILY HISTORY Problem Relation Age of Onset - Cancer Mother lung - Heart Mother - Hypertension Father - Heart Father - Prostate Cancer Father - Diabetes Brother - Diabetes Paternal Grandmother - Hypertension Paternal Grandmother Social History Tobacco Use - Smoking status: Former Smoker Packs/day: 1.00 Years: 10.00 Pack years: 10.00 Types: Cigarettes Quit date: 07/09/1997 Years since quittin.3 - Smokeless tobacco: Never Used Vaping Use - Vaping Use: Never used Substance Use Topics - Alcohol use: No - Drug use: No HOME MEDICATIONS: rosuvastatin (CRESTOR) 40 mg tablet, Take 40 mg by mouth once daily., Disp: , Rfl: levETIRAcetam (KEPPRA) 500 mg tablet, Take 500 mg by mouth twice daily., Disp: , Rfl: , 11/18/2020 at Unknown time cholecalciferol (VITAMIN D-3) 5,000 unit tab, Take 5,000 Units by mouth once daily., Disp: , Rfl: , 11/17/2020 at Unknown time calcitriol (ROCALTROL) 0.25 mcg capsule, Take 0.25 mcg by mouth once daily., Disp: , Rfl: , 11/17/2020 at Unknown time hydrOXYzine HCl (ATARAX) 25 mg tablet, Take 25 mg by mouth every 6 hours as needed., Disp: , Rfl: , 11/17/2020 at Unknown time furosemide (LASIX) 40 mg tablet, Take 40 mg by mouth every 48 hours. , Disp: , Rfl: , 11/17/2020 at Unknown time omeprazole 40 mg capsule, Take 40 mg by mouth once daily., Disp: , Rfl: , 11/18/2020 at Unknown time metoprolol tartrate, short acting, (LOPRESSOR) 25 mg tablet, Take 25 mg by mouth once daily. , Disp: , Rfl: , 11/18/2020 at Unknown time temazepam 30 mg cap, Take 30 mg by mouth daily at bedtime. , Disp: , Rfl: , 11/17/2020 at Unknown time montelukast sodium(SINGULAIR 10 MG TAB), take one tablet by mouth daily, Disp: , Rfl: 0, 11/17/2020 at Unknown time VITAMIN B-6 100 mg tablet, take 1 tablet by mouth once daily, Disp: 100 tablet, Rfl: 2 Multivitamin with Iron-Mineral tab, Take 1 tablet by mouth once daily. (Patient not taking: Reported on 11/01/2020 ), Disp: 100 tablet, Rfl: 2 linaCLOtide (LINZESS) 290 mcg capsule, Take 290 mcg by mouth as needed. , Disp: , Rfl: cyanocobalamin, vitamin B-12, (VITAMIN B-12 INJECTION), by INJECTION(UNSPECIFIED PARENTERAL ROUTES) route once every month., Disp: , Rfl: aspirin, enteric coated 81 mg EC tablet, Take 81 mg by mouth once daily. , Disp: , Rfl: , 11/04/2020 NITROGLYCERIN 0.4 MG SUBLINGUAL TAB, Dissolve under the tongue every 5 minutes as needed. Usual dose for angina is 1 tablet every 5 minutes for maximum of 3 doses in 15 minutes. , Disp: , Rfl: 0 ALBUTEROL 90 MCG/ACTUATIO (more content not included)... [facility] CONSULT PROGon 11-19-2020 CONSULT PROG HNO ID: [id number] Author: Magnus Rodriguez (Pharmacist) Service: Pharmacy Author Type: Pharmacist Type: Consult Progress Note Filed: 11/19/2020 12:12 PM Note Text: PHARMACY VANCOMYCIN DOSING NOTE Patient Name: Marcos Shelton Admission Date: 11/18/2020 Date of Consult: 11/19/2020 Time of Consult: 12:01 PM Indication: Bone AND joint infection Goal Range: 10-20 mcg/mL (Targeting 15-20 for indication) RECOMMENDATIONS/PLAN: Pharmacy consulted for vancomycin dosing for Marcos Shelton, a 70 year old, female who is being treated with vancomycin for Bone AND joint infection 1. Patient is currently ordered Vancomycin 1.25 g IV q24h. Today is day #1 of Consult, but #2 of therapy because patient already had 1 g x 2 doses between 2300 yesterday and 1000 today. 2. No vancomycin level has been drawn for this dosing regimen. 3. The present dose of vancomycin is the recommended dosage for this patient at this time. Continue therapy as prescribed. 4. The next vancomycin level will be ordered for 11/21/20 @ 0900 unless clinically indicated sooner. (Pharmacy will order) We will follow patient renal function, vancomycin levels and doses with you during the course of therapy. Additional recommendations will appear in follow up notes. If you have any questions, please contact Pharmacy at [phone]. Age: [age] year old Allergies: ALLERGIES Allergen Reactions - Colesevelam Unknown - Nitrofurantoin Unknown - Penicillins Other: See Comments, Unknown - Hydrocortisone Unknown - Macrobid [Nitrofura* - Metolazone Unknown - Pravastatin Unknown - Sulfa (Sulfonamide * Unknown - Tramadol GI Upset Last 3 Encounter Wt Readings: Date: Wt: 11/07/2020 76.2 kg (168 lb) 11/01/2020 84.6 kg (186 lb 8.2 oz) 11/01/2020 74.4 kg (164 lb) Last 1 Encounter Ht Readings: Date: Ht: 11/07/2020 162.6 cm (5' 4) CrCl: 32.6 mL/min Temp (24hrs), Av.7 ?C (98.1 ?F), Min:36 ?C (96.8 ?F), Max:37.7 ?C (99.9 ?F) - Current Temp: 36.6 ?C (97.9 ?F) Labs BUN (mg/dL) Date Value 11/07/2020 23 (H) 08/27/2020 36 (H) 05/07/2020 21 01/01/2020 25 (H) Creatinine (mg/dL) Date Value 11/07/2020 1.74 (H) 08/27/2020 1.75 (H) 05/07/2020 1.47 (H) 01/01/2020 1.48 (H) WBC (k/uL) Date Value 11/07/2020 10.11 08/27/2020 9.27 05/07/2020 7.79 04/23/2020 8.92 Vancomycin Levels: No results found for: TAYLER Rodriguez, Pharmacist [id number] [facility] NURSING PROGon 11-19-2020 NURSING PROG HNO ID: [id number] Author: Carmen (Rn) RNE Mckinnon Service: ? Author Type: Registered Nurse Type: Nursing Progress Note Filed: 11/18/2020 11:19 PM Note Text: Notified Sound of pt BP of 99/45. Retook manually, 102/50. Pt states her BP runs low at times. No intervention at this time, will continue to monitor. [facility] THERAPY NTon 11-19-2020 THERAPY NT HNO ID: [id number] Author: Phylicia OrellanaOtr/L) Nadeem Service: Occupational Therapy Author Type: Occupational Therapist Type: Therapy (PT/OT/Speech/Resp) Filed: 11/19/2020 3:26 PM Note Text: Occupational Therapy Evaluation SERVICE DATE: 11/19/2020 SERVICE TIME: 1500 to 1515 ROOM: [place] [id number] Recommended Discharge Disposition: Home OT Anticipated Discharge Needs: Physical Assist at Home Physical Assist at Home for: Cleaning;Laundry;Meals;Nimco pping;Transportation OT 6 Clicks Score: 21 Precautions/Activity Restrictions: Fall Risk;Spine;Lines/Tubes/Jayashree ins Precaution/Activity Restriction Comments: wound vac, drain Current Hospital Course: 70 year old female s/p IANDD lumbar wound 11/18/20 Reason for Hospital Admission: IANDD lumbar wound Relevant Past Medical History: 8 month lumbar draining wound, HTN, RA, COPD, CAD, PVD Response to Therapy Interventions: Good participation in activities Continue skilled needs due to: Continued monitoring of vital signs during mobility required, Functional impairment, Safety concerns Occupational Therapy Problem List: Safety Deficits;Impaired Self Care;Decreased Activity Tolerance;Decreased Strength;Functional Mobility Impairment;Balance Impaired Cognition/Communication Deficits Responsiveness: Alert Follows Commands: 2-step Commands Executive Function Deficits: Safety Awareness Safety Awareness Deficit: Minimal impairment Treatment Interventions: Education;Self Care / Home Management;Energy Conservation Training;Strengthening;Fun ctional Mobility Training;Balance Training Plan for next visit: Bathing training, Dressing training, Fall prevention, Standing tolerance, Grooming training Home Environment Patient Lives With: Spouse Assistance Available: 24 Hour Entry To Home: Stairs Number Of Stairs Into Home: 1 Number Of Stairs To Bed/Bath: 0 Tub/Shower Type: walk in shower Laundry: main floor, spouse will complete Equipment Owned: Rollator;Shower Chair;Cane Prior Functional Level: Required Assistance Assistance Required With: Shopping;Transportation Prior Functional Level Comments: Patient reports ambulating with rollator, reports independence with self care, spouse completes IADL's and drives Patient Report: agreeable to session CURRENT FUNCTIONAL STATUS: Most recent performance Current Activities of Daily Living Assist Level Additional Information Feeding Set Up Grooming Stand By Assistance Bathing Upper Body Stand By Assistance discussed the use and benefit and a shower seat and long handled sponge Bathing Lower Body Minimal Assistance Dressing Upper Body Stand By Assistance Dressing Lower Body Minimal Assistance discussed the figure 4 technique Toileting Stand By Assistance Functional Mobility Assist Level Additional Information Rolling reviewed spine precautions and log roll technique. Supine to Sit Contact Guard Assistance Sit to Supine Contact Guard Assistance Scooting Contact Guard Assistance Sit to Stand Contact Guard Assistance cues for hand placement Stand to Sit Contact Guard Assistance cues to reach back before sitting down. Bed to Chair Toilet/Commode Shower Functional Mobility Contact Guard Assistance;Additional Information Rollator 2 side steps cues for safety Did not further mobilize patient, as BP was low at 98/52. Blank carroll indicate activity not attempted Range of Motion: WFL Strength: Strength Limitation Comments Strength Limitation Comments: not tested due to spine precautions Balance: Static Standing;Dynamic Standing Static Standing Balance: Fair Patient able to maintain balance with handhold support, may require occasional minimal assistance Dynamic Standing Balance: Fair Patient accepts minimal challenge, able to maintain balance while turning head/trunk Learning/Educational Needs: Discharge Plan;Disease Process;Equipment;Family Education/Training;Functio nal Activities/Mobility;Precau tions;Rehabilitation Techniques and Procedures;Safety;Self Care Goals for Plan of Care: Patient /Caregiver Goals: Go Home Grooming with: Supervision (standing at the sink) Upper Body Bathing with: Independent Upper Body Dressing with: Independent Lower Body Bathing with: Modified Independent Lower Body Dressing with: Modified Independent Toilet Hygiene with: Supervision Chair Transfer with: Supervision Toilet Transfer with: Supervision Tolerate (minutes of functional activity): 30 Functional Activity with: Supervision Demonstrate Competence With Education with: Supervision (spine precautions ) Rehab Potential: Good Patient will be discontinued from Occupational Therapy when no further skilled needs are identified in this setting. PLAN: Treatment Frequency (times per week): 5 (2-5) Current admission Plan of Care developed with: Patient TREATMENT INTERVENTIONS: Therapy Diagnosis: Reduced mobility-other;Decreased activities of daily living (ADL);Muscle Weakness (more content not included)... [facility] THERAPY NT HNO ID: [id number] Author: Anastasiia OrellanaPtShaylee Santamaria Service: Physical Therapy Author Type: Physical Therapist Type: Therapy (PT/OT/Speech/Resp) Filed: 11/19/2020 12:11 PM Note Text: Physical Therapy Evaluation SERVICE DATE: 11/19/2020 SERVICE TIME: 1113 to 1145 ROOM: [id number] Recommended Discharge Disposition: Home PT Recommended Discharge Disposition Comments: Patient to benefit from Home PT to improve strength and progress independence with functional mobility Anticipated Discharge Needs: Physical Assist at Home Physical Assist at Home for: Cleaning;Laundry;Meals;Nimco pping;Transportation PT 6 Clicks Score: 19 Precautions/Activity Restrictions: Fall Risk;Spine;Lines/Tubes/Jayashree ins Precaution/Activity Restriction Comments: wound vac, drain Current Hospital Course: 70 year old female s/p IANDD lumbar wound 11/18/20 Reason for Hospital Admission: IANDD lumbar wound Relevant Past Medical History: 8 month lumbar draining wound, HTN, RA, COPD, CAD, PVD Response to Therapy Interventions: Good participation in activities, Low activity tolerance, Pain, Requires additional time to complete activities Continue skilled needs due to: Continued monitoring of vital signs during mobility required, Functional mobility/skill impairments, Safety concerns Physical Therapy Problem List: Pain;Decreased Activity Tolerance;Decreased Strength;Functional Mobility Impairment;Balance Impaired Treatment Interventions: Education;Energy Conservation Training;Strengthening;Fun ctional Mobility Training Plan for next visit: Bed mobility, Gait training, Sit to Stand Transfers, Standing Tolerance Home Environment Patient Lives With: Spouse Assistance Available: 24 Hour Entry To Home: Stairs Number Of Stairs Into Home: 1 Number Of Stairs To Bed/Bath: 0 Tub/Shower Type: walk in shower Laundry: main floor, spouse will complete Equipment Owned: Rollator;Shower Chair;Cane Prior Functional Level: Required Assistance Assistance Required With: Shopping;Transportation Prior Functional Level Comments: Patient reports ambulating with rollator, reports independence with self care, spouse completes IADL's and drives Patient Report: Patient agreeable to PT session Vital Signs Pre Assessment: BP Pre BP: 98/45 Pre BP Position: Supine Intra Assessment 1: BP Intra 1 (after ambulation) Intra BP 1: 67/51 Intra BP Position 1: Sitting Post Assessment: BP Post Post BP: 133/85 Post BP Position: Sitting CURRENT FUNCTIONAL STATUS: Most recent performance Current Functional Mobility Assist Level Additional Information Rolling Stand By Assistance Supine to Sit Contact Guard Assistance;Additional Information patient able to slide legs towards edge of bed, cues for hand placement on bed, contact assist at trunk Sit to Supine Contact Guard Assistance;Additional Information cues to lower onto right side, contact assist with BLE's Scooting Stand By Assistance Sit to Stand Contact Guard Assistance;Additional Information cues for proper hand placement, cues to power through legs Stand to Sit Contact Guard Assistance;Additional Information cues to reach back for armrests/edge of bed and slowly lower bottom Bed to Chair Toilet/Commode Minimal Assistance Gait Contact Guard Assistance;Additional Information Gait Device: Rollator Gait Distance (feet): 20' x 2 cues for upright posture, cues to keep feet close to rollator, cues for pursed lip breathing, upon ambulating back to chair patient reports nausea/dizziness, no LOB Stairs Curb Step Car Transfer Blank carroll indicate activity not attempted General Deviations/Observations: Cassi decreased;Step length decreased;Non-functional gait speed Range of Motion: WFL Strength: WFL Balance: Static Sitting;Dynamic Sitting;Static Standing;Dynamic Standing Static Sitting Balance: Good Patient able to maintain balance without handhold support, limited postural sway Dynamic Sitting Balance: Good Patient accepts moderate challenge, able to maintain balance while picking up object off floor Static Standing Balance: Fair Patient able to maintain balance with handhold support, may require occasional minimal assistance Dynamic Standing Balance: Fair Patient accepts minimal challenge, able to maintain balance while turning head/trunk Activity Tolerance: Standing Activity Standing Activity: gait Standing Activity Tolerance (in minutes): 7 JH-HLM: 6: Walk 10 steps or more Learning/Educational Needs: Functional Activities/Mobility;Precau tions;Rehabilitation Techniques and Procedures Goals for Plan of Care: Patient /Caregiver Goals: Go Home Goals: Patient will demonstrate progress with functional mobility to allow safe discharge to home with available support and/or physical assistance. Able to perform HEP with: Verbal Cues Only Transfer supine to/from sit with: Independent Transfer sit to/from stand with: Independent Ambulate with: Indepe (more content not included)... [facility] ANES PRE-OPon 11-18-2020 ANES PRE-OP HNO ID: [id number] Author: Zahra Corona Service: Anesthesiology Author Type: Physician Type: Anesthesia Preprocedure Evaluation Filed: 11/18/2020 10:26 AM Note Text: ANESTHESIOLOGY DAY OF SURGERY NOTE : 1950 Procedure(s) (LRB): Complex revision of lumbar wound (Bilateral) SECONDARY CLOSURE WOUND BACK (Bilateral) EXCISION BENIGN LESION BACK = < 0.5CM (N/A) Surgeon(s): Sameer Pulliam Estimated body mass index is 28.84 kg/m? as calculated from the following: Height as of 11/07/20: 162.6 cm (5' 4). Weight as of 11/07/20: 76.2 kg (168 lb). Most recent hematocrit and potassium results: Hematocrit 36.1 11/07/2020 Potassium 4.2 11/07/2020 70yo female with HTN, HL, RA, GERD, Callaway's esophagus, asthma/COPD, CAD, PVD, seizure disorder (last seizure 4 months ago, has been on antiseizure meds x 6months, unknown type), CKD Relevant Problems CARDIO (+) Essential hypertension, benign -RENAL (+) Anemia associated with chronic renal failure I - PHYSICAL EVALUATION AIRWAY Patient intubated: No. Mallampati: II. TM distance: >3 FB. Neck ROM: full ROM without neurological symptoms. Mouth opening: adequate. DENTAL Dental findings: edentulous. II - ANESTHESIA PLAN ASA Score: 3 Anesthetic Plan: general The patient is not a current smoker. NPO Status: adequate Monitoring plan: standard ASA. Postoperative analgesic plan: parenteral or oral opioids. Anesthetic Risks, Benefits, Alternatives, Personnel Discussed. Consent obtained from: patient.Patient / Surrogate agrees to blood products: Yes Significant changes in the patient condition since the History and Physical, not otherwise documented in primary service progress note: no. Potential Anesthesia issues that may suggest increased risk of complications or contraindication to planned procedure: none. Vitals Value Taken Time BP 137/56 11/18/20 0904 Pulse 69 11/18/20 0904 Resp 18 11/18/20 0904 Temp 36.1 ?C (97 ?F) 11/18/20903 SpO2 100 % 11/18/20903 No current facility-administered medications on file as of 11/18/2020. Outpatient Medications as of 11/18/2020 Medication Sig - levETIRAcetam (KEPPRA) 500 mg tablet Take 500 mg by mouth twice daily. - cholecalciferol (VITAMIN D-3) 5,000 unit tab Take 5,000 Units by mouth once daily. - calcitriol (ROCALTROL) 0.25 mcg capsule Take 0.25 mcg by mouth once daily. - hydrOXYzine HCl (ATARAX) 25 mg tablet Take 25 mg by mouth every 6 hours as needed. - furosemide (LASIX) 40 mg tablet Take 40 mg by mouth every 48 hours. - omeprazole 40 mg capsule Take 40 mg by mouth once daily. - metoprolol tartrate, short acting, (LOPRESSOR) 25 mg tablet Take 25 mg by mouth once daily. - rosuvastatin (CRESTOR) 20 mg tablet Take 20 mg by mouth once daily. - temazepam 30 mg cap Take 30 mg by mouth daily at bedtime. - montelukast sodium(SINGULAIR 10 MG TAB) take one tablet by mouth daily - VITAMIN B-6 100 mg tablet take 1 tablet by mouth once daily - Multivitamin with Iron-Mineral tab Take 1 tablet by mouth once daily. (Patient not taking: Reported on 11/01/2020 ) - linaCLOtide (LINZESS) 290 mcg capsule Take 290 mcg by mouth as needed. - cyanocobalamin, vitamin B-12, (VITAMIN B-12 INJECTION) by INJECTION(UNSPECIFIED PARENTERAL ROUTES) route once every month. - aspirin, enteric coated 81 mg EC tablet Take 81 mg by mouth once daily. - NITROGLYCERIN 0.4 MG SUBLINGUAL TAB Dissolve under the tongue every 5 minutes as needed. Usual dose for angina is 1 tablet every 5 minutes for maximum of 3 doses in 15 minutes. - ALBUTEROL 90 MCG/ACTUATION AEROSOL INHALER Inhale 1-2 Puffs as instructed every 4 hours as needed. SHAKE WELL BEFORE USING I have interviewed and examined the patient. I have reviewed the medical record and/or the pre-anesthesia evaluation, pertinent labs, and test results. This contains updated information obtained within 48 hours of Surgery/Procedure. SIGNATURE: Zahra Corona MD PATIENT NAME: Marcos Shelton DATE: November 18, 2020 TIME: 9:34 AM CSN: [id number] [facility] Bacteria Spec Anaerobe Culto n 11-18-2020 Bacteria identified Anaer cx Nom (Unsp spec) Negative [facility] Comment on above: Performed By: #### 6 35-3, [id number] #### [facility] CLIA [id number] [address] [place] [address] Bacteria identified Anaer cx Nom (Unsp spec) Negative [facility] Comment on above: Performed By: #### 4 091-5 #### [facility] CLIA [id number] [address] [place] [address] Bacteria Tiss Culton 021 Bacteria identified Cx Nom (Tiss) CULTURE, TISSUE: Rare skin leonardo ORGANISM ID: 1 Few - Possible Methicillin resistant Staphylococcus aureus Refer to specimen collected on 11-18-20 GRAM STAIN: No organisms seen Many Polymorphonuclear leukocytes Many Red Blood Cells Abnormal [facility] Comment on above: Performed By: #### 6 35-3, 07496-2 #### [facility] CLIA [id number] [address] [place] [address] Bacteria identified Cx Nom (Tiss) CULTURE, TISSUE: Rare skin leonardo ORGANISM ID: 1 Rare Methicillin resistant Staphylococcus aureus ORGANISM ID: 3 Rare Streptococcus agalactiae (group b streptococcus) GRAM STAIN: No organisms seen Few Polymorphonuclear leukocytes Many Red Blood Cells ORGANISM ID: 1 (METHICILLIN RESISTANT STAPHYLOCOCCUS AUREUS) ANTIBIOTIC INTERPRETATION PRISCILLA STATUS REFERENCE RANGE Clindamycin S <=0.5 F Susceptible <=0.5 , Intermediate >.5 , Resistant >2 This isolate does not demonstrate inducible Clindamycin resistance in vitro. Daptomycin S <=1 F Susceptible <=1 , Nonsusceptible >1 Erythromycin R >4 F Susceptible <=0.5 , Intermediate >.5 , Resistant >4 Gentamicin S <=2 F Susceptible <=4 , Intermediate >4 , Resistant >8 Linezolid S 2 F Susceptible <=4 , Intermediate >4 , Resistant >4 Oxacillin R >2 F Susceptible <=2 , Intermediate >2 , Resistant >2 Oxacillin-resistant are R to all beta-lactam antibiotics (except new cephalosporins with anti-MRSA activity i.e. ceftaroline). Rifampin S <=0.5 F Susceptible <=1 , Intermediate >1 , Resistant >2 Rifampin should not be used alone for antimicrobial therapy. Trimeth sulfameth S <=1 F Tetracycline S <=0.5 F Susceptible <=4 , Intermediate >4 , Resistant >8 Vancomycin S 1 F Susceptible <=2 , Intermediate >2 , Resistant >=16 Abnormal [facility] Comment on above: Performed By: #### 4 091-5 #### [facility] CLIA [id number] [address] [place] [address] Microorganism Spec Culton Microorganism identified Cx Nom (Unsp spec) CULTURE, FUNGAL: No Fungus isolated after 28 days FUNGAL SMEAR: No fungus seen Normal [facility] Comment on above: Performed By: #### 1 1475-1 #### [facility] CLIA [id number] [address] [place] [address] Microorganism identified Cx Nom (Unsp spec) CULTURE, FUNGAL: No Fungus isolated after 28 days FUNGAL SMEAR: No fungus seen Normal [facility] Comment on above: Performed By: #### 1 1475-1 #### [facility] CLIA [id number] [address] [place] [address] OPERATIVE NOon 11-18-2020 OPERATIVE NO HNO ID: [id number] Author: Sameer Perez Service: Neurosurgery Author Type: Physician Type: Operative Report Filed: 11/18/2020 12:57 PM Note Text: OPERATIVE REPORT LOG ID: [id number] SURGERY/PROCEDURE DATE: 11/18/2020 INCISION/PROCEDURE START TIME: 11:21 AM INCISION CLOSE/PROCEDURE END TIME: SURGEON(S)/PROCEDURALIST(S ) AND PROPERTY ADMINISTRATOR(S): Surgeon(s) and Role: * Sameer Perez - Primary No Additional Staff PRE-OPERATIVE DIAGNOSIS: Drainage from lumbar wound POST-OPERATIVE DIAGNOSIS: Lumbar epidural abscess, failure of lumbar instrumentation SURGERY/PROCEDURE(S): 1. Lumbar reexploration of previous wound with complex revision of incision greater than 15 cm 2. Lumbar reexploration laminectomy with evacuation of epidural abscess 3. Removal of previously implanted pedicle fixation system L2 to ilium 4. Exploration of previous lumbar fusion 5. Placement of lumbar wound vacuum device ANESTHESIA: General INDICATIONS: This is a 70-year-old female who presents with drainage from her lumbar wound. She last had lumbar spine surgery approximately 3 to 4 years ago and noted a several month history of drainage of the lower portion of the incision. Despite multiple attempts at treating this conservatively, the patient continued to fail conservative management measures and as such was felt to be in need of this procedure. DETAILS OF PROCEDURE: Following the obtaining a full informed consent, the patient was brought to the operating room and underwent induction of general endotracheal anesthesia. She was then flipped onto the prone position, given IV antibiotics, and had all of her pressure points padded appropriately. Following a surgical timeout, the patient's previous incision was reopened. There appeared to be an open area in the midline that was draining. This was excised and tracked down to the depth of the fascia where eventually, this led to a large area of phlegmon with ross purulence. As I explored this more ventrally, it was evident that there was an epidural abscess extending from the central area all the way to both sets of pedicle screws from L2 to the ileum. As such, the decision was made to remove all the previously implanted hardware. This was a tedious undertaking because of the type of instrumentation that was there. Eventually, I was able to remove the entire hardware which included a cross-link, 2 rods, 12 pedicle screws and 12 set screws. The infection appeared to be quite extensive and extending into the lateral gutters past the screw heads and even into the iliac regions bilaterally. The phlegmon and epidural abscess was completely drained following which I performed a reexploration of the fusion which seem to be adequate. Following the evacuation of the abscess and phlegmon, a curette was used to scrape away all devitalized tissues back to bleeding healthy tissue. The wound was then copiously irrigated with antibiotic saline. Immaculate hemostasis was achieved in the usual fashion following which a 1/8 inch Hemovac drain was left in place, tunneled out through the skin, and secured with a drain stitch. The wound was then closed in standard fashion using 0 strata fix on the fascia, 2-0 Vicryl on the subcutaneous tissues, and 4-0 Monocryl in a subcuticular fashion on the skin. The wound which was devitalized was reconstructed in a complex fashion described earlier and then a wound vacuum device was placed over the incision to maintain the appropriate sterile field. All counts were correct at the end of the procedure. No complications were encountered. ESTIMATED BLOOD LOSS: 100 mls SPECIMENS: Epidural phlegmon and lumbar wound excisional biopsy with abnormal lesion IMPLANTABLE DEVICES: None DRAINS: 1/8 inch Hemovac drain in the subfascial plane, wound VAC device along the incision COMPLICATIONS: None SIGNATURE: Sameer Perez MD PATIENT NAME: Marcos Shelton DATE: November 18, 2020 TIME: 12:50 PM PAGER/CONTACT #: [facility] SURGICAL PATHOLOGYon 021 CASE REPORT [facility] Comment on above: Order Comment: Speci men Type: BLOOD SPECIMEN Result Comment: Surg ical Pathology Report Case: [id number] Authorizing Provider: Sameer Perez Collected: 11/18/2020 11:24 AM Ordering Location: [facility] Received: 11/18/2020 02:48 PM Pathologist: Steve Jackson MD Specimen: SOFT TISSUE, LUMBAR WOUND SCAR AND LESION Performed By: #### H CT, HGB #### [facility] CLIA [id number] [address] [place] [address] CLINICAL HISTORY Wound dehiscence Normal [place] Comment on above: Order Comment: Speci men Type: BLOOD SPECIMEN Performed By: #### H CT, HGB #### [facility] CLIA [id number] [address] [place] [address] DIAGNOSIS COMMENT Correlation with microbiologic cultures is recommended. Normal [facility] Comment on above: Order Comment: Speci men Type: BLOOD SPECIMEN Performed By: #### H CT, HGB #### [facility] CLIA [id number] [address] [place] [address] FINAL DIAGNOSIS Normal [facility] Comment on above: Order Comment: Speci men Type: BLOOD SPECIMEN Result Comment: A. S kin and soft tissue, lumbar region, excision Skin with scar and underlying soft tissue with acute and chronic inflammation and reactive changes, consistent with history of wound dehiscence. See comment. Performed By: #### H CT, HGB #### [facility] CLIA [id number] [address] [place] [address] FINAL PERFORMING LAB Normal [facility] Comment on above: Order Comment: Speci men Type: BLOOD SPECIMEN Result Comment: Diag nostic interpretation performed at [facility], [address] [place] [address] CLIA# [id number] Electronics Inspector: Mg Diaz M.D. Performed By: #### H CT, HGB #### [facility] CLIA [id number] [address] [place] [address] GROSS DESCRIPTION A. SOFT TISSUE. Normal [place] Comment on above: Order Comment: Speci men Type: BLOOD SPECIMEN Result Comment: Rece ived in formalin labeled lumbar wound scar and lesion is an irregular unoriented fragment of estrada wrinkled skin and underlying subcutaneous soft tissue measuring overall 3.5 x 3 x 1.4 cm. Sectioning reveals a 2 cm estrada-white softened lesion. No hemorrhage is identified. A senior sales representative section of the skin and subcutaneous lesion is submitted in cassette A1. OLS/lary Gross examination performed at [facility], [address] [place] [address] CLIA# [id number] Performed By: #### H CT, HGB #### [facility] CLIA [id number] [address] [place] [address] Basic metabolic 2000 panelon 11-07-2020 Anion gap [Moles/Vol] 11 mmol/L Normal 9-18 [facility] Comment on above: Order Comment: Speci men Type: BLOOD SPECIMEN Performed By: #### H CT, HGB #### [facility] CLIA [id number] [address] [place] [address] Calcium [Mass/Vol] 9.5 mg/dL Normal 8.5-10.2 [facility] Comment on above: Order Comment: Speci men Type: BLOOD SPECIMEN Performed By: #### H CT, HGB #### [facility] CLIA [id number] [address] [place] [address] Chloride [Moles/Vol] 104 mmol/L Normal 97-105 [facility] Comment on above: Order Comment: Speci men Type: BLOOD SPECIMEN Performed By: #### H CT, HGB #### [facility] CLIA [id number] [address] [place] [address] CO2 [Moles/Vol] 26 mmol/L Normal 22-30 [facility] Comment on above: Order Comment: Speci men Type: BLOOD SPECIMEN Performed By: #### H CT, HGB #### [facility] CLIA [id number] [address] [place] [address] Creatinine [Mass/Vol] 1.74 mg/dL High 0.58-0.96 [facility] Comment on above: Order Comment: Speci men Type: BLOOD SPECIMEN Performed By: #### H CT, HGB #### [facility] CLIA [id number] [address] [place] [address] GFR/1.73 sq M.predicted MDRD (S/P/Bld) [Vol rate/Area] 35 mL/min/{1.73_m2} Normal [facility] Comment on above: Order Comment: Speci men Type: BLOOD SPECIMEN Result Comment: 29 eGFR (Estimated GFR) Units of measure: mL/min/1.73 meters squared eGFR is derived from the reexpressed MDRD Study equation using the following parameters: serum creatinine, age, gender and race. The creatinine assay has been calibrated to be traceable to IDMS. An eGFR <60 mL/min/1.73m2 for >3 months is consistent with chronic kidney disease. Refer to KDOQI guidelines for clinical interpretation. In patients with unstable renal function, e.g. those with acute kidney injury, the eGFR may not accurately reflect actual GFR. Performed By: #### H CT, HGB #### [facility] CLIA [id number] [address] [place] [address] Glucose [Mass/Vol] 105 mg/dL High 74-99 [facility] Comment on above: Order Comment: Speci men Type: BLOOD SPECIMEN Result Comment: The [place] Diabetes Association (ADA) provides guidance for cutoff values for fasting glucose and random glucose. The ADA defines fasting as no caloric intake for at least 8 hours. Fasting plasma glucose results between 100 to 125 mg/dL indicate increased risk for diabetes (prediabetes). Fasting plasma glucose results greater than or equal to 126 mg/dL meet the criteria for diagnosis of diabetes. In the absence of unequivocal hyperglycemia, results should be confirmed by repeat testing. In a patient with classic symptoms of hyperglycemia or hyperglycemic crisis, random plasma glucose results greater than or equal to 200 mg/dL meet the criteria for diagnosis of diabetes. Reference: Standards of Medical Care in Diabetes 2016, [place] Diabetes Association. Diabetes Care. 2016.39(Suppl 1). Performed By: #### H CT, HGB #### [facility] CLIA [id number] [address] [place] [address] Potassium [Moles/Vol] 4.2 mmol/L Normal 3.7-5.1 [facility] Comment on above: Order Comment: Speci men Type: BLOOD SPECIMEN Performed By: #### H CT, HGB #### [facility] CLIA [id number] [address] [place] [address] Sodium [Moles/Vol] 141 mmol/L Normal 136-144 [facility] Comment on above: Order Comment: Speci men Type: BLOOD SPECIMEN Performed By: #### H CT, HGB #### [facility] CLIA [id number] [address] [place] [address] Urea nitrogen [Mass/Vol] 23 mg/dL High 7-21 [facility] Comment on above: Order Comment: Speci men Type: BLOOD SPECIMEN Performed By: #### H CT, HGB #### [facility] CLIA [id number] [address] [place] [address] CBC panel Auto (Bld)on 11-07 Erythrocyte distribution width (RBC) [Ratio] 13.8 % Normal 11.5-15.0 [facility] Comment on above: Order Comment: Speci men Type: BLOOD SPECIMEN Performed By: #### 4 091-5 #### [facility] CLIA [id number] [address] [place] [address] Hematocrit (Bld) [Volume fraction] 36.1 % Normal 36.0-46.0 [facility] Comment on above: Order Comment: Speci men Type: BLOOD SPECIMEN Performed By: #### 4 091-5 #### [facility] CLIA [id number] [address] [place] [address] Hemoglobin (Bld) [Mass/Vol] 11.3 g/dL Low 11.5-15.5 [facility] Comment on above: Order Comment: Speci men Type: BLOOD SPECIMEN Performed By: #### 4 091-5 #### [facility] CLIA [id number] [address] [place] [address] MCH (RBC) [Entitic mass] 29.7 pg Normal 26.0-34.0 [facility] Comment on above: Order Comment: Speci men Type: BLOOD SPECIMEN Performed By: #### 4 091-5 #### [facility] CLIA [id number] [address] [place] [address] MCHC (RBC) [Mass/Vol] 31.3 g/dL Normal 30.5-36.0 [facility] Comment on above: Order Comment: Speci men Type: BLOOD SPECIMEN Performed By: #### 4 091-5 #### [facility] CLIA [id number] [address] [place] [address] MCV (RBC) [Entitic vol] 94.8 fL Normal 80.0-100.0 [facility] Comment on above: Order Comment: Speci men Type: BLOOD SPECIMEN Performed By: #### 4 091-5 #### [facility] CLIA [id number] [address] [place] [address] Nucleated RBC (Bld) [#/Vol] 10*3/uL Normal <0.01 [facility] Comment on above: Order Comment: Speci men Type: BLOOD SPECIMEN Performed By: #### 4 091-5 #### [facility] CLIA [id number] [address] [place] [address] Platelet mean volume (Bld) [Entitic vol] 9.5 fL Normal 9.0-12.7 [facility] Comment on above: Order Comment: Speci men Type: BLOOD SPECIMEN Performed By: #### 4 091-5 #### [facility] CLIA [id number] [address] [place] [address] Platelets (Bld) [#/Vol] 288 10*3/uL Normal 150-400 [facility] Comment on above: Order Comment: Speci men Type: BLOOD SPECIMEN Performed By: #### 4 091-5 #### [facility] CLIA [id number] [address] [place] [address] RBC (Bld) [#/Vol] 3.81 10*6/uL Low 3.90-5.20 [facility] Comment on above: Order Comment: Speci men Type: BLOOD SPECIMEN Performed By: #### 4 091-5 #### [facility] CLIA [id number] [address] [place] [address] WBC (Bld) [#/Vol] 10.11 10*3/uL Normal 3.70-11.00 [facility] Comment on above: Order Comment: Speci men Type: BLOOD SPECIMEN Performed By: #### 4 091-5 #### [facility] CLIA [id number] [address] [place] [address] HISTORY PHYSICALon HISTORY PHYSICAL HNO ID: [id number] Author: Toshia Davidson Service: ? Author Type: Nurse Practitioner Type: HANDP Filed: 11/07/2020 2:46 PM Note Text: HISTORY AND PHYSICAL EXAMINATION SERVICE DATE: 11/07/2020 SERVICE TIME: 1420 PRIMARY CARE PHYSICIAN: Bell Maher MD REASON FOR VISIT: Marcos Shelton is a 70 year old female who is scheduled for Procedure(s): Complex revision of lumbar wound (Bilateral) SECONDARY CLOSURE WOUND BACK (Bilateral) at the request of Dr. Sameer Perez for routine HANDP The patient has the following: ACTIVE PROBLEM LIST Essential Hypertension, Benign Mitral Valve Disorders(424.0) Other and Unspecified Hyperlipidemia Rheumatoid Arthritis(714.0) Abdominal Pain, Right Upper Quadrant Early Satiety Loss of Weight Weakness of Both Lower Limbs Postlaminectomy Syndrome Disc Degeneration, Lumbar Paresthesia Pain in Limb Anemia Associated With Chronic Renal Failure Subjective CHIEF COMPLAINT: Lumbar wound HPI: This is a 70 year old female that presents today for presurgical testing with c/o above. Patient reports she had a lumbar fusion in [place] in 2017 and did well post operatively. She states that she had noticed about 6 months ago some drainage around the incision site. An MRI was performed and showed some fluid accumulation in the area. She had an IR drainage and sclerotherapy done in 09/2020. She has been following with wound care as well. Patient reports her pain today in her low back is a 2/10, sitting for too long or walking makes pain worse, takes tylenol for her symptoms. States her incision site is still draining foul-smelling mostly clear fluid with occasional specs or blood in it. changes dressings daily. Denies any recent fevers or chills. Patient has met with surgeon and has agreed to surgical intervention. REVIEW OF SYSTEMS: General: No weight loss, malaise or fevers. Neurological: Positive for: seizures Negative for: headaches, TIA and strokes Respiratory: Positive for: asthma and tobacco use (former smoker). Negative for: COPD, current cough, dyspnea, home oxygen, pneumonia within 6 weeks, URI < 2 weeks and obstructive sleep apnea Cardiovascular: Positive for: CAD, hyperlipidemia and hypertension Negative for: chest pain, CHF and DVT/PE Senior Telecommunications Specialist: Von Davidson Last office visit: 11/06/2020 GI: Positive for: GERD Negative for: hepatitis and ETOH >2 drinks/day : Positive for: renal failure Renal failure condition: chronic Negative for: flank pain, frequent urination and hematuria CHECK CASHIER: Negative for abnormal vaginal bleeding, abnormal vaginal discharge. Endocrine: No history of diabetes. Has not taken steroids within the past 30 days. No history of endocrinological symptoms or problems. Positive for: hypothyroidism (states she was on synthroid previsouly, but not anymore) Hematology: Positive for: anemia (previous iron transfusion 07/2020 was most recent) Negative for: bruises/bleeds easily, factor V Leiden, hemophilia, liver disease and thrombocytopenia Oncology: No history of CA metastasis, chemo within 30 days, or radiotherapy within 90 days. No history of oncological symptoms or problems. Psych: No history of psychiatric symptoms or problems. Musculoskeletal: Positive for: rheumatoid arthritis Skin: See HPI Chronic issues: H/o shingles PAST MEDICAL HISTORY Diagnosis Date - Abdominal pain, right upper quadrant - Acid reflux - Anemia associated with chronic renal failure 01/02/2020 - Asthma - Callaway's esophagus - CAD (coronary artery disease) - Constipation - Diverticulitis - Early satiety - Essential hypertension, benign - Fatigue - Heart disease - Hemorrhoids - Loss of weight - Mitral valve disorders(424.0) with prolapse, needs abx prophylaxis - Other and unspecified hyperlipidemia - PVD (peripheral vascular disease) (HCC) - Rheumatoid arthritis(714.0) - Seizure (HCC) - Wound dehiscence PAST SURGICAL HISTORY Procedure Laterality Date - APPENDECTOMY - BACK SURGERY HX 2009 lami and fusion L45 for spondylolisthesis - CC PTCA STENT 2007, 2009 - COLONOS W/REM POLYP SNARE 09/05/09 repeat in - EXCIS BREAST LESION rt - PAST SURGICAL HISTORY OF Left foot - PAST SURGICAL HISTORY OF Right shoulder - PAST SURGICAL HISTORY OF Right hip surgery - REVASCULARIZATION ILIAC ART ANGIOP EA IPSI VSL bilateral - REVISE MEDIAN N/CARPAL TUNNEL SURG x 2 Carpal tunnel decomp - TOTAL ABDOM HYSTERECTOMY Hysterectomy, AMALIA FAMILY HISTORY Problem Relation Age of Onset - Cancer Mother lung - Heart Mother - Hypertension Father - Heart Father - Prostate Cancer Father - Diabetes Brother - Diabetes Paternal Grandmother - Hypertension Paternal Grandmother Social History Tobacco Use - Smoking status: Former Smoker Packs/day: 1.00 Years: 10.00 Pack years: 10.00 Types: Cigarettes Quit date: (more content not included)... Normal [facility] PT panel Coag (PPP)on 2020 INR Coag (PPP) [Relative time] 1.1 {INR} Normal 0.9-1.3 [facility] Comment on above: Order Comment: Speci men Type: BLOOD SPECIMEN Result Comment: Ofelia min K Antagonist (VKA) Therapeutic Range: INR 2 to 3 (Target INR of 2.5) Note: For patients treated with VKA drugs, such as warfarin, the [place] [employer] 2012 Guideline recommends a therapeutic INR range of 2 to 3 (target INR of 2.5). This recommendation includes high-risk patients with antiphospholipid syndrome with previous arterial or venous thromboembolism, current-generation mechanical or bioprosthetic aortic heart valve replacement. Note: Patients with mechanical aortic valve replacement and additional risk factors for thromboembolic events (atrial fibrillation, previous thromboembolism, LV dysfunction, hypercoagulable conditions) or an older generation mechanical AVR (i.e., ball in-Cage) or any mechanical MVR should have a INR therapeutic range of 2.5 to 3.5 (target INR of 3). Alanis GH, et al. Chest 2012, 141:7S-47S Gio RA, et al. [facility] 2017, 70: 252-289 Performed By: #### 4 091-5 #### [facility] CLIA [id number] [address] [place] [address] PT Coag (PPP) [Time] 11.0 s Normal 9.7-13.0 [facility] Comment on above: Order Comment: Speci men Type: BLOOD SPECIMEN Performed By: #### 4 091-5 #### [facility] CLIA [id number] [address] [place] [address] TYPE AND SCREEN,30 DAYon ABO A Normal [facility] Comment on above: Order Comment: Speci men Type: BLOOD SPECIMEN Performed By: #### 4 091-5 #### [facility] CLIA [id number] [address] [place] [address] HISTORICAL AB SCR STATUS Negative Normal [facility] Comment on above: Order Comment: Speci men Type: BLOOD SPECIMEN Performed By: #### 4 091-5 #### [facility] CLIA [id number] [address] [place] [address] Rh Nom (Bld) Positive Normal [facility] Comment on above: Order Comment: Speci men Type: BLOOD SPECIMEN Performed By: #### 4 091-5 #### [facility] CLIA [id number] [address] [place] [address] TYPE AND SCREEN EXPIRATION 12/07/2020 23:59 Normal [facility] Comment on above: Order Comment: Speci men Type: BLOOD SPECIMEN Performed By: #### 4 091-5 #### [facility] CLIA [id number] [address] [place] [address] aPTT PPPon 11-07-2020 aPTT Coag (PPP) [Time] 30.6 s Normal 23.0-32.4 [facility] Comment on above: Order Comment: Speci men Type: BLOOD SPECIMEN Performed By: #### 4 091-5 #### [facility] CLIA [id number] [address] [place] [address] CNCOon 11-04-2020 CNCO Letter Text Normal [facility] CNCOon 11-01-2020 CNCO Letter Text Normal [facility] CNOVon 11-01-2020 CNOV Office Visit (JOSE ANGEL ) -- MARCOS SHELTON ([id number]) 1950 F Date Time Provider Department 11/01/20 9:00 AM SAMEER PEREZ During your visit today, we recorded the following information about you: Temperature Pulse Respiration Blood pressure 97.3 degrees 79/minute 16/minute 146/84 Weight Height 74.4 kg 1.626 m Sameer Perez MD 11/01/2020 9:35 AM Signed NEUROSURGERY FOLLOW UP OFFICE NOTE Sameer Perez MD Date of visit: November 01, 2020 Patient Name: Ms.Marcosra Chika Shelton Date of : 1950 Current Age: [age] year old Sex: female MRN/E# [id number] Last Office Visit: August 27, 2020 Chief Complaint: Patient presents with: Established Patient SUBJECTIVE: The patient returns today for evaluation and further planning regarding wound dehiscence. She has a history of a L2-S1 lumbar fusion in 2017 by an outside physician in [place]. She did well postoperative until 6 months ago when she noticed that she had developed an open wound with drainage around the incision site. She presented for evaluation in August 2020 after undergoing an MRI. This was reviewed and demonstrated a fluid collection ventral to the area. On exam the consistency of the wound was curious. It was uncertain why she developed this years following her surgical procedure. It was recommended that she be evaluated by plastic surgery for evaluation. She was evaluated by Dr. Cowan and Dr. Pulliam. Recommendation for IR drainage was reported by Dr. Pulliam and consideration for sclerotherapy. She underwent the procedure in late September 2020. The procedure note impression states That no fluid was able to be spontaneously aspirated despite sampling at multiple different sites. This suggested that the material present is congealed and not amendable to percutaneous drainage. She was referred back to wound care. The wound center stated that they are having a hard time packing this tunneled wound given how narrow it is. Recommendation is for a reexploration possible debridement. Today she states she continues to have discomfort at the wound site. It continues to drain and her is packing it at home. No new changes otherwise. She presents today for further discussion, evaluation and plan of care. Symptoms: Low back pain around wound/surgical incision PREVIOUS CONSERVATIVE TREATMENTS: Wound center PREVIOUS SURGERY: SURGERY #1: L2-S1 fusion per Dr.Olide Damian ([place]) 2017 PAIN EVALUATION 11/01/2020 0834 Pain Level: 2 Pain Location: Back-Lower Description: Aching;Stiffness Duration Units: Weeks Frequency: Intermittent Intervention: Medication;Relaxation PAST MEDICAL HISTORY Diagnosis Date - Abdominal pain, right upper quadrant - Acid reflux - Anemia associated with chronic renal failure 01/02/2020 - Asthma - Callaway's esophagus - CAD (coronary artery disease) - Constipation - Diverticulitis - Early satiety - Essential hypertension, benign - Fatigue - Heart disease - Hemorrhoids - Loss of weight - Mitral valve disorders(424.0) with prolapse, needs abx prophylaxis - Other and unspecified hyperlipidemia - PVD (peripheral vascular disease) (HCC) - Rheumatoid arthritis(714.0) PAST SURGICAL HISTORY Procedure Laterality Date - APPENDECTOMY - BACK SURGERY HX 2009 lami and fusion L45 for spondylolisthesis - CC PTCA STENT 2007, 2009 - COLONOS W/REM POLYP SNARE 09/05/09 repeat in - EXCIS BREAST LESION rt - PAST SURGICAL HISTORY OF Left foot - PAST SURGICAL HISTORY OF Right shoulder - PAST SURGICAL HISTORY OF Right hip surgery - REVASCULARIZATION ILIAC ART ANGIOP EA IPSI VSL bilateral - REVISE MEDIAN N/CARPAL TUNNEL SURG x 2 Carpal tunnel decomp - TOTAL ABDOM HYSTERECTOMY Hysterectomy, AMALIA FAMILY HISTORY Problem Relation Age of Onset - Cancer Mother lung - Heart Mother - Hypertension Father - Heart Father - Prostate Cancer Father - Diabetes Brother - Diabetes Paternal Grandmother - Hypertension Paternal Grandmother ALLERGIES Allergen Reactions - Macrobid [Nitrofura* - Penicillins - Sulfa (Sulfonamide * Unknown Current Outpatient Medications Medication Sig Dispense Refill - VITAMIN B-6 100 mg tablet take 1 tablet by mouth once daily 100 tablet 2 - polyethylene glycol 3350 (MIRALAX) 17 gram packet 17 g q 24 HR. Prn - hydrOXYzine HCl (ATARAX) 25 mg tablet Take 25 mg by mouth every 6 hours as needed. - furosemide (LASIX) 40 mg tablet Take 40 mg by mouth once daily. - linaCLOtide (LINZESS) 290 mcg capsule Take 290 mcg by mouth once daily. - omeprazole 40 mg capsule Take 40 mg by mouth once daily. - metoprolol tartrate, short acting, (LOPRESSOR) 25 mg tablet Take 25 mg by mouth once daily. - cyanocobalamin, vitamin B-12, (VITAMIN B-12 INJECTION) by INJECTION(UNSPECIFIED PARENTERAL ROUTES) route once every (more content not included)... Normal [facility] 10-22-2020 [facility] Telephone ([facility]) -- MARCOS SHELTON ([id number]) 1950 F Date Time Provider Department 10/22/20 LOUIE CALLES (EMPLOYEE COMMUNICATIONS MANAGER, EQUITY RESEARCH ANALYST) [facility] During your visit today, we recorded the following information about you: Louie Calles APRN.CNP 10/22/2020 8:52 AM Signed Patient: Marcos Shelton Date of : 1950 (home) [phone] (cell) ALLERGIES Allergen Reactions - Macrobid [Nitrofura* - Penicillins - Sulfa (Sulfonamide * Unknown Patient last appointment: 10/21/2020 Patient next appointment: Visit date not found Reason for call: Spoke to Mrs. Shelton regarding the results and impression from the CT guided bx. Discussed that no fluid was retrieved during bx. Recommendation is now to continue with the Wound center for treatment. If wound continues to delay healing a more aggressive approach may be indicated. I told her to contact us after a reasonable attempt has been made for wound closure by the Wound center if this is not attained. All of her questions and concerns were addressed. The patients preferred pharmacy has been captured for this encounter? no Louie Calles APRN.CNP 8:52 AM 10/22/2020 Allergies As of Date: 10/22/2020 Noted Allergy Reaction MACROBID (NITROFURANTOIN MONOHYD/*02/18/2006 PENICILLINS 02/18/2006 SULFA (SULFONAMIDE ANTIBIOTICS) 06/27/2012 16 - Unknown Date Reviewed: 10/14/2020 Reviewed by: Sebastien Estrella - Fully Assessed Reason for Visit: Results [95] Prescriptions as of 10/22/2020 Sig: VITAMIN B-6 100 MG TABLET take 1 tablet by mouth once d* MULTIVITAMIN WITH IRON-MINERA* Take 1 tablet by mouth once d* POLYETHYLENE GLYCOL 3350 17 G* 17 g q 24 HR. Prn HYDROXYZINE HCL 25 MG TABLET Take 25 mg by mouth every 6 h* OXCARBAZEPINE 150 MG TABLET 300 mg twice daily. FUROSEMIDE 40 MG TABLET Take 40 mg by mouth once bk* LINACLOTIDE 290 MCG CAPSULE Take 290 mcg by mouth once da* LEVOTHYROXINE 50 MCG TABLET Take 50 mcg by mouth once fatimah* OMEPRAZOLE 40 MG CAPSULE,LEANNE* Take 40 mg by mouth once bk* METOPROLOL TARTRATE 25 MG TAB* Take 25 mg by mouth once bk* VITAMIN B-12 INJECTION by INJECTION(UNSPECIFIED PARE* * ROSUVASTATIN 20 MG TABLET Take 20 mg by mouth once bk* * TEMAZEPAM 30 MG CAPSULE Take 30 mg by mouth daily at * * ASPIRIN 81 MG TABLET,DELAYED * Take 81 mg by mouth once bk* * SINGULAIR 10 MG TABLET take one tablet by mouth daily * NITROGLYCERIN 0.4 MG SUBLINGU* as needed for chest pain * ALBUTEROL 90 MCG/ACTUATION AE* Inhale 1-2 Puffs as instructe* Problem List As Of Date 10/22/2020 Noted Resolved BENIGN HYPERTENSION [I10] MITRAL VALVE DISORDER [I05.9] HYPERLIPIDEMIA NEC/NOS [E78.5] RHEUMATOID ARTHRITIS [M06.9] Abdominal Pain, Right Upper Quadrant [R10.11] 09/05/2009 Early Satiety [R68.81] 09/05/2009 Loss of Weight [R63.4] 09/05/2009 Weakness of both lower limbs [R29.898] 06/02/2012 Postlaminectomy syndrome [M96.1] 06/02/2012 Disc degeneration, lumbar [M51.36] 06/27/2012 Paresthesia [R20.2] 06/27/2012 Pain in limb [M79.609] 06/27/2012 Anemia associated with chronic renal failure [N*01/02/2020 Encounter Status:Closed [facility] ([facility] -- MARCOS SHELTON ([id number]) 1950 F Date Time Provider Department 10/21/20 LOUIE CALLES (EMPLOYEE COMMUNICATIONS MANAGER, EQUITY RESEARCH ANALYST) [facility] During your visit today, we recorded the following information about you: Dory Petit) Juan 10/21/2020 10:54 AM Signed Patient called into the office today requesting results of her ultrasound guided drainage of fluid collection on 10/14/2020. I told her that I would have one of our SKIDDER LEVER OPERATOR's would call her with results, likely tomorrow. She was appreciative and will await return call. Dory Petit) Juan Petit) Juan 10/22/2020 9:24 AM Signed Patient contacted by Louie Calles APRN, EQUITY RESEARCH ANALYST on 10/22/2020. Dory Petit) Juan Allergies As of Date: 10/21/2020 Noted Allergy Reaction MACROBID (NITROFURANTOIN MONOHYD/*02/18/2006 PENICILLINS 02/18/2006 SULFA (SULFONAMIDE ANTIBIOTICS) 06/27/2012 16 - Unknown Date Reviewed: 10/14/2020 Reviewed by: Sebastien Estrella - Fully Assessed Reason for Visit: Results [95] Prescriptions as of 10/21/2020 Sig: VITAMIN B-6 100 MG TABLET take 1 tablet by mouth once d* MULTIVITAMIN WITH IRON-MINERA* Take 1 tablet by mouth once d* POLYETHYLENE GLYCOL 3350 17 G* 17 g q 24 HR. Prn HYDROXYZINE HCL 25 MG TABLET Take 25 mg by mouth every 6 h* OXCARBAZEPINE 150 MG TABLET 300 mg twice daily. FUROSEMIDE 40 MG TABLET Take 40 mg by mouth once bk* LINACLOTIDE 290 MCG CAPSULE Take 290 mcg by mouth once da* LEVOTHYROXINE 50 MCG TABLET Take 50 mcg by mouth once fatimah* OMEPRAZOLE 40 MG CAPSULE,LEANNE* Take 40 mg by mouth once bk* METOPROLOL TARTRATE 25 MG TAB* Take 25 mg by mouth once bk* VITAMIN B-12 INJECTION by INJECTION(UNSPECIFIED PARE* * ROSUVASTATIN 20 MG TABLET Take 20 mg by mouth once bk* * TEMAZEPAM 30 MG CAPSULE Take 30 mg by mouth daily at * * ASPIRIN 81 MG TABLET,DELAYED * Take 81 mg by mouth once bk* * SINGULAIR 10 MG TABLET take one tablet by mouth daily * NITROGLYCERIN 0.4 MG SUBLINGU* as needed for chest pain * ALBUTEROL 90 MCG/ACTUATION AE* Inhale 1-2 Puffs as instructe* Problem List As Of Date 10/21/2020 Noted Resolved BENIGN HYPERTENSION [I10] MITRAL VALVE DISORDER [I05.9] HYPERLIPIDEMIA NEC/NOS [E78.5] RHEUMATOID ARTHRITIS [M06.9] Abdominal Pain, Right Upper Quadrant [R10.11] 09/05/2009 Early Satiety [R68.81] 09/05/2009 Loss of Weight [R63.4] 09/05/2009 Weakness of both lower limbs [R29.898] 06/02/2012 Postlaminectomy syndrome [M96.1] 06/02/2012 Disc degeneration, lumbar [M51.36] 06/27/2012 Paresthesia [R20.2] 06/27/2012 Pain in limb [M79.609] 06/27/2012 Anemia associated with chronic renal failure [N*01/02/2020 Encounter Status:Closed by DORY DAS on 10/22/20 [facility] ALLIED HEALTHon 10-14-2020 ALLIED HEALTH HNO ID: [id number] Author: Kennedy Gerardo Service: Radiology Author Type: Management Lecturer Type: Allied Health Filed: 01/08/2021 3:38 PM Note Text: Radiology Service Progress Note PATIENT NAME: Marcos Shelton DATE OF SERVICE: January 08, 2021 TIME: 3:37 PM PATIENT IDENTITY VERIFICATION COMPLETED USING TWO (2) IDENTIFIERS: Name and Date of confirmed by patient verbally. FALL SCREENING: Has the patient had 2 falls in the last year or 1 fall with injury or currently using an Ambulatory Assistive Device (Walker, Cane, Wheelchair, Crutches, etc.)? No PATIENT GENDER DATA: Female. status: : No status: NO. PATIENT RELEVANT IMPLANT DATA REVIEWED: Not Applicable RADIOLOGY DEPARTMENT: Interventional Radiology PERIPHERAL IV DATA: Not applicable SIGNED BY: Kennedy Gerardo January 08, 2021 3:37 PM [facility] HNO ID: [id number] Author: Kennedy Frey (Rt) Service: Radiology Author Type: Management Lecturer Type: Allied Health Filed: 10/14/2020 9:33 AM Note Text: Radiology Service Progress Note PATIENT NAME: Marcos Shelton DATE OF SERVICE: October 14, 2020 TIME: 9:32 AM PATIENT IDENTITY VERIFICATION COMPLETED USING TWO (2) IDENTIFIERS: Name and Date of confirmed by patient verbally and Name and Date of confirmed by identification band. FALL SCREENING: Has the patient had 2 falls in the last year or 1 fall with injury or currently using an Ambulatory Assistive Device (Walker, Cane, Wheelchair, Crutches, etc.)? No PATIENT GENDER DATA: Female. status: : No status: NO. PATIENT RELEVANT IMPLANT DATA REVIEWED: Not Applicable RADIOLOGY DEPARTMENT: Biopsy PERIPHERAL IV DATA: Not applicable SIGNED BY: RT Tk October 14, 2020 9:32 AM [facility] BRIEF OP NOTon 10-14-2020 BRIEF OP NOT HNO ID: [id number] Author: Sebastien Estrella Service: Interventional Radiology Author Type: Physician Type: Brief Op Note Filed: 10/14/2020 9:33 AM Note Text: BRIEF OPERATIVE / PROCEDURE NOTE LOG ID: [id number] Surgery/Procedure Date: 10/14/2020 Incision/Procedure Start Time: 8:40 AM Incision Close/Procedure End Time: 9:08 AM Surgeon(s)/Proceduralist(s ) and Territory Representative(s): Surgeon(s) and Role: * Sebastien Estrella - Primary No Additional Staff Procedure(s): Other (specify) - Ultrasound guided drainage od superficial fluid collection Anesthesia: Procedural Sedation Findings: Ultrasound demonstrated hypoechoic areas which corresponded to fluid seen on prior MRI. An 18 g needle was introduced into 3 separate areas. No fluid could be aspirated. A guidewire was introduced to disrupt possible loculations at two sites. And a 7 F drain was introduced at two sites. Still no fluid could be aspirated. A small amount of non-bacteriostatic normal saline was instilled. The fluid was then aspirated and sent for culture. As no drainable fluid was present the drainage catheter was removed. The patient tolerated the procedure well. No immediate complications were noted. Estimated Blood Loss: 0 ml Specimens: fluid for culture Complications: None Pre-Op/Pre-Procedure Diagnosis: superficial fluid collection Post-Op/Post-Procedure Diagnosis: same The full report is located under Imaging in the Radiology report for the procedure. SIGNATURE: Sebastien Estrella MD PATIENT NAME: Marcos Shelton DATE: October 14, 2020 TIME: 9:19 AM PAGER/CONTACT #: [phone] Normal [facility] Bacteria Fld Culton 10-14-19 21 Bacteria identified Cx Nom (Body fld) ORGANISM ID: 1 Few Methicillin resistant Staphylococcus aureus GRAM STAIN: No organisms seen Many Polymorphonuclear leukocytes Many Red Blood Cells ORGANISM ID: 1 (METHICILLIN RESISTANT STAPHYLOCOCCUS AUREUS) ANTIBIOTIC INTERPRETATION PRISCILLA STATUS REFERENCE RANGE Clindamycin S <=0.5 F Susceptible <=0.5 , Intermediate >.5 , Resistant >2 This isolate does not demonstrate inducible Clindamycin resistance in vitro. Daptomycin S <=1 F Susceptible <=1 , Nonsusceptible >1 Erythromycin R >4 F Susceptible <=0.5 , Intermediate >.5 , Resistant >4 Gentamicin S <=2 F Susceptible <=4 , Intermediate >4 , Resistant >8 Linezolid S 2 F Susceptible <=4 , Intermediate >4 , Resistant >4 Oxacillin R >2 F Susceptible <=2 , Intermediate >2 , Resistant >2 Oxacillin-resistant are R to all beta-lactam antibiotics (except new cephalosporins with anti-MRSA activity i.e. ceftaroline). Rifampin S <=0.5 F Susceptible <=1 , Intermediate >1 , Resistant >2 Rifampin should not be used alone for antimicrobial therapy. Trimeth sulfameth S <=1 F Tetracycline S <=0.5 F Susceptible <=4 , Intermediate >4 , Resistant >8 Vancomycin S 1 F Susceptible <=2 , Intermediate >2 , Resistant >=16 Abnormal [facility] Comment on above: Performed By: #### 6 11-4 #### [facility] CLIA [id number] [address] [place] [place] [id number] HISTORY PHYSICALon HISTORY PHYSICAL HNO ID: [id number] Author: Sebastien Estrella Service: Interventional Radiology Author Type: Physician Type: HANDP Filed: 10/14/2020 9:17 AM Note Text: UPDATED HISTORY AND PHYSICAL EXAMINATION SERVICE DATE: 10/14/2020 SERVICE TIME: 9:16 AM PHYSICAL EXAM MUST BE COMPLETED ON ADMISSION The History and Physical (completed in the past 30 days) has been reviewed and the patient has been examined. The contents accurately reflect the patient's condition with the following additions or revisions since the HANDP was completed. Examination indicates no changes. This HANDP can be found in the Electronic Medical Record dated 09/27/20. SIGNATURE: Sebastien Estrella MD PATIENT NAME: Marcos Shelton DATE: October 14, 2020 TIME: 9:16 AM PAGER: Normal [facility] US DIAG ASP FLUID COLLECTION on 10-14-2020 US DIAG ASP FLUID COLLECTION Final Report DATE OF EXAM: Oct 14 2020 9:24AM [facility] 1071 - US DIAG ASP FLUID COLLECTION / PROCEDURE REASON: lumbar region Physician Interpretation EXAM TITLE: ULTRASOUND-GUIDED ASPIRATION OF SUPERFICIAL FLUID COLLECTIONS POSTERIOR TO THE LOWER LUMBAR SPINE DATE: 10/14/2020 COMPARISON: MRI of the lumbar spine dated 07/17/2020 CLINICAL INDICATION/HISTORY: The patient is a 70-year-old female with history of prior lumbar spine surgery. On previous MRI the patient noted to have a superficial fluid collections posterior to the L4-S1 levels. The patient has had a persistent draining fistula. The patient is referred for image guided aspiration and/or drainage of the fluid collections.. FINDINGS: Informed consent was obtained from the patient. The patient was placed in the prone position. A timeout was performed. Ultrasound of the area of interest was performed. Focal areas of decreased echogenicity were identified. These appear to correspond to the areas of fluid seen on MRI. A hypoechoic area. To communicate with the tract of the fistula. The skin was marked. All elements of maximum barrier technique including surgical cap and mask, sterile gown, sterile gloves, a large sterile drape, hand hygiene and appropriate prep agent for cutaneous antisepsis were utilized and maintained for this procedure. Local anesthesia was affected with 2% Xylocaine. Utilizing real-time ultrasound guidance an 18-gauge trocar needle was introduced into the fluid collection. No fluid was able to be aspirated. A short Amplatz guidewire is introduced in order to disrupt any loculations. The trocar needle was withdrawn. A 7 Austrian APD catheter was then inserted over the guidewire. Position of the guidewire and catheter within the collection was confirmed with ultrasound. The guidewire and introducer were removed. Again no fluid was able to be aspirated through the drainage catheter. The drainage catheter was withdrawn. Utilizing real-time ultrasound guidance the 18-gauge trocar needle was introduced into what appeared to be a fluid collection located slightly more anteriorly and medially. Position the tip the needle was confirmed with ultrasound and images were saved in the PACS. No fluid was able to be aspirated. The trocar needle was then manipulated under ultrasound to disrupt any loculations. Again no fluid was able be aspirated. A short Amplatz guidewire was introduced. Position of the wire in the collection was confirmed with ultrasound. The trocar needle was withdrawn. Again the 7 Austrian drainage catheter was inserted over the guidewire. The introducer and guidewire were removed. Only a few drops of slightly sanguinous fluid was able be aspirated. Subsequently nonbacteriostatic normal saline was injected. A small volume of slightly sanguinous fluid was able to be aspirated. Specimen was submitted for culture. As no drainable fluid was present the drainage catheter was withdrawn. Ultrasound of the hypoechoic collection located more laterally to the left was identified. Local anesthesia effected with 2% Xylocaine. Utilizing real-time ultrasound guidance the 18-gauge trocar needle was introduced into this collection. Position the tip of the needle in the collection was confirmed with ultrasound and an image saved in the PACS. Again no fluid was able to be aspirated. The trocar needle was withdrawn. The patient tolerated the procedure well. No immediate complications were noted. The patient received conscious sedation with intravenous Versed and Fentanyl. . The patient was monitored throughout the procedure by the Radiology nurse. Intra-service time (monitoring for moderate sedation) (starts with administration of agent, ends when continuous colh-ys-evul time ends): 30 minutes Patient monitoring: I personally supervised and directed an independent trained observer who assisted in monitoring the patient?s level of consciousness and physiological status throughout the procedure. The patient was transferred to the post procedure recovery area in stable condition.. IMPRESSION: 1. Hypoechoic areas which appear to correspond to the fluid collection seen on previous MRI were identified. No fluid was able to be spontaneously aspirated despite sampling at multiple different sites even after the introduction of a 7 Austrian drainage catheter. These findings would suggest that the material present is congealed and not amenable to percutaneous drainage. Presentation Team Member: TARA Transcribe Date/Time: Oct 15 2020 4:30P Dictated by : SEBASTIEN ESTRELLA MD This examination was interpreted and the report reviewed and electronically signed by: SEBASTIEN ESTRELLA MD on Oct 15 2020 4:41PM EST [facility] HOSPon 10-08-2020 HOSP Patient:And ra Chika Shelton MRN: Height:5' 4(1.626 m) Weight:164 lb (74.39 kg) Outpatient Medications as of 10/14/20: VITAMIN B-6 100 mg tablet Multivitamin with Iron-Mineral tab polyethylene glycol 3350 (MIRALAX) 17 gram packet hydrOXYzine HCl (ATARAX) 25 mg tablet OXcarbazepine (TRILEPTAL) 150 mg tablet furosemide (LASIX) 40 mg tablet linaCLOtide (LINZESS) 290 mcg capsule levothyroxine (SYNTHROID) 50 mcg tablet omeprazole 40 mg capsule metoprolol tartrate, short acting, (LOPRESSOR) 25 mg tablet cyanocobalamin, vitamin B-12, (VITAMIN B-12 INJECTION) rosuvastatin (CRESTOR) 20 mg tablet temazepam 30 mg cap aspirin, enteric coated 81 mg EC tablet montelukast sodium(SINGULAIR 10 MG TAB) NITROGLYCERIN 0.4 MG SUBLINGUAL TAB ALBUTEROL 90 MCG/ACTUATION AEROSOL INHALER Admission/Clinic Administered Medications as of 10/14/20: Patient has no admission medications. Problem List: Essential hypertension, benign [I10] Mitral valve disorders(424.0) [I05.9] Other and unspecified hyperlipidemia [E78.5] Rheumatoid arthritis(714.0) [M06.9] Abdominal pain, right upper quadrant [R10.11] Early satiety [R68.81] Loss of weight [R63.4] Weakness of both lower limbs [R29.898] Postlaminectomy syndrome [M96.1] Disc degeneration, lumbar [M51.36] Paresthesia [R20.2] Pain in limb [M79.609] Anemia associated with chronic renal failure [N18.9, D63.1] Allergies: Macrobid [Nitrofurantoin Monohyd/M-Cryst] Penicillins Sulfa (Sulfonamide Antibiotics) Date Verified: 10/14/20 Lab Values No results within the last 30 days for the following basenames: K,HCT Progress Notes ([facility]): Dory Das 10/07/2020 11:24 AM Signed Patient called into the office today and states that she had some bleeding from her wound last night. She states that they had some difficulty packing her wound which she believes caused some trauma leading to the bleeding. She states that after the one occurrence of bleeding, her wound has returned to baseline. I advised her of signs and symptoms prompting immediate evaluation in the ER. I told her I would update Dr. Perez and get back with her if there was a change in plan of care. She verbalized understanding and was appreciative. Dory Das Progress Notes ([facility]): Angelita Lamas MD 10/07/2020 8:24 AM Signed Patient's request for medication is as follows Signed Prescriptions Disp Refills VITAMIN B-6 100 mg tablet 100 tablet 2 Sig: take 1 tablet by mouth once daily LORRAINE: No Authorizing Provider: ANGELITA LAMAS Order entered - please phone pharmacy and notify patient. Angelita Lamas MD [facility] 10-07-2020 [facility] Telephone (JOSE [facility]GEL) -- MARCOS SHELTON ([id number]) 1950 F Date Time Provider Department 10/07/20 SAMEER PEREZ During your visit today, we recorded the following information about you: Dory Petit) Juan 10/07/2020 11:24 AM Signed Patient called into the office today and states that she had some bleeding from her wound last night. She states that they had some difficulty packing her wound which she believes caused some trauma leading to the bleeding. She states that after the one occurrence of bleeding, her wound has returned to baseline. I advised her of signs and symptoms prompting immediate evaluation in the ER. I told her I would update Dr. Perez and get back with her if there was a change in plan of care. She verbalized understanding and was appreciative. Dory Petit) Juan Allergies As of Date: 10/07/2020 Noted Allergy Reaction MACROBID (NITROFURANTOIN MONOHYD/*02/18/2006 PENICILLINS 02/18/2006 SULFA (SULFONAMIDE ANTIBIOTICS) 06/27/2012 16 - Unknown Date Reviewed: 09/27/2020 Reviewed by: Florinda Petit) Milena - Fully Assessed Reason for Visit: Patient Update [1234] Prescriptions as of 10/07/2020 Sig: VITAMIN B-6 100 MG TABLET take 1 tablet by mouth once d* MULTIVITAMIN WITH IRON-MINERA* Take 1 tablet by mouth once d* POLYETHYLENE GLYCOL 3350 17 G* 17 g q 24 HR. Prn HYDROXYZINE HCL 25 MG TABLET Take 25 mg by mouth every 6 h* OXCARBAZEPINE 150 MG TABLET 300 mg twice daily. FUROSEMIDE 40 MG TABLET Take 40 mg by mouth once bk* LINACLOTIDE 290 MCG CAPSULE Take 290 mcg by mouth once da* LEVOTHYROXINE 50 MCG TABLET Take 50 mcg by mouth once fatimah* OMEPRAZOLE 40 MG CAPSULE,LEANNE* Take 40 mg by mouth once bk* METOPROLOL TARTRATE 25 MG TAB* Take 25 mg by mouth once bk* VITAMIN B-12 INJECTION by INJECTION(UNSPECIFIED PARE* * ROSUVASTATIN 20 MG TABLET Take 20 mg by mouth once bk* * TEMAZEPAM 30 MG CAPSULE Take 30 mg by mouth daily at * * ASPIRIN 81 MG TABLET,DELAYED * Take 81 mg by mouth once bk* * SINGULAIR 10 MG TABLET take one tablet by mouth daily * NITROGLYCERIN 0.4 MG SUBLINGU* as needed for chest pain * ALBUTEROL 90 MCG/ACTUATION AE* Inhale 1-2 Puffs as instructe* Problem List As Of Date 10/07/2020 Noted Resolved BENIGN HYPERTENSION [I10] MITRAL VALVE DISORDER [I05.9] HYPERLIPIDEMIA NEC/NOS [E78.5] RHEUMATOID ARTHRITIS [M06.9] Abdominal Pain, Right Upper Quadrant [R10.11] 09/05/2009 Early Satiety [R68.81] 09/05/2009 Loss of Weight [R63.4] 09/05/2009 Weakness of both lower limbs [R29.898] 06/02/2012 Postlaminectomy syndrome [M96.1] 06/02/2012 Disc degeneration, lumbar [M51.36] 06/27/2012 Paresthesia [R20.2] 06/27/2012 Pain in limb [M79.609] 06/27/2012 Anemia associated with chronic renal failure [N*01/02/2020 Encounter Status:Closed by DORY DAS on 10/07/20 [facility] CNOVon 09-27-2020 CNOV Office Visit (PLAGBR ) -- MARCOS SHELTON ([id number]) 1950 F Date Time Provider Department 09/27/20 11:15 AM MICHAEL PULLIAM During your visit today, we recorded the following information about you: Pulse Blood pressure Weight Height 83/minute 156/60 72.6 kg 1.626 m Florinda Abbott RN 09/27/2020 12:16 PM Signed Has hole in back that has been present for last six months- and drains fluid clear foul smelling foul smelling fluid daily- has dsd done daily Has been to wound center here and at [place]- and plastic surgeon- not able to resolve area Florinda Abbott RN. Michael Pulliam MD 09/27/2020 1:21 PM Signed PLASTIC SURGERY CONSULTATION Reason for Consultation: back wound Requesting Physician: Subjective HPI: Ms. Shelton is a 70 year old female underwent lumbar fusion L2- S1 in 2017 in [place].This was the 4th back surgery she had. She has 3 prior back surgeries before that. Starting 6 months ago she developed back wound that has been draining clear fluid. She was evaluated by Dr Perez for CSF leak. She had MRI and CT of the lumbar spine. Dr Perez did not think that she had a CSF leak . The read for the MRI states that there is a contained fluid collection at L4-S2 posterior to the central and left central thecal sac at L4 measuring 3.6cm x 2.6cm x 6cm. She denies any trauma, no fevers, no infection, no lower extremity symptoms. She has been managed with local wound care, prior trials antibiotics that were tried on different occasions with no affect. She had a prior NV. She had 3 cardiac stents placed in around 10 years ago. She also femoral artery stents bilaterally around 6 years ago. She mitral valve prolapse for which she gets prophylactic antibiotics before procedures. She has rheumatoid arthritis. She does not take any mediations for this. PAST MEDICAL HISTORY Diagnosis Date - Abdominal pain, right upper quadrant - Acid reflux - Anemia associated with chronic renal failure 01/02/2020 - Asthma - Callaway's esophagus - CAD (coronary artery disease) - Constipation - Diverticulitis - Early satiety - Essential hypertension, benign - Fatigue - Heart disease - Hemorrhoids - Loss of weight - Mitral valve disorders(424.0) with prolapse, needs abx prophylaxis - Other and unspecified hyperlipidemia - PVD (peripheral vascular disease) (HCC) - Rheumatoid arthritis(714.0) PAST SURGICAL HISTORY Procedure Laterality Date - APPENDECTOMY - BACK SURGERY HX 2009 lami and fusion L45 for spondylolisthesis - CC PTCA STENT 2009 - COLONOS W/REM POLYP SNARE 09/05/09 repeat in - EXCIS BREAST LESION rt - PAST SURGICAL HISTORY OF Left foot - PAST SURGICAL HISTORY OF Right shoulder - PAST SURGICAL HISTORY OF Right hip surgery - REVASCULARIZATION ILIAC ART ANGIOP EA IPSI VSL bilateral - REVISE MEDIAN N/CARPAL TUNNEL SURG x 2 Carpal tunnel decomp - TOTAL ABDOM HYSTERECTOMY Hysterectomy, AMALIA FAMILY HISTORY Problem Relation Age of Onset - Cancer Mother lung - Heart Mother - Hypertension Father - Heart Father - Prostate Cancer Father - Diabetes Brother - Diabetes Paternal Grandmother - Hypertension Paternal Grandmother Social History Tobacco Use - Smoking status: Former Smoker Packs/day: 1.00 Years: 10.00 Pack years: 10.00 Types: Cigarettes Quit date: 07/09/1997 Years since quittin.2 - Smokeless tobacco: Never Used Substance Use Topics - Alcohol use: No - Drug use: No (Not in a hospital admission) @IPMED@ Allergies As of Date: 09/27/2020 Allergen Noted Reaction MACROBID [NITROFURANTOIN MONOHYD/*02/18/2006 PENICILLINS 02/18/2006 SULFA (SULFONAMIDE ANTIBIOTICS) 06/27/2012 Unknown Fully Assessed 09/27/2020 Objective BP 156/60 Pulse 83 Ht 5' 4 (1.63m) Wt 160 lb (72.6kg) BMI 27.45 kg/(m2). General: no acute distress Pulm: Normal work of breathing on room air unlabored breathing Back: small puncate track in the lower lumbar area, unable to probe today, some macerated red skin but overall better quality skin than expected DATA: Imaging: MRI and CT images reviewed Laboratory: No new labs Impression/Recommendations 70 year old female with chronic back wound after multiple surgeries and a contained fluid collection at L4-S2. She has a persistent fluid collection that is likely either CSF or a seroma. She has seen Dr Perez who does not think it is a CSF leak. She has a very small punctate wound that I could not probe today. If the fluid collection resolves than I would expect the wound to resolve. Likewise if the fluid collection does not resolved neither will the wound. I would recommend IR drainage (send for beta-transferrin and cultures) and consider sclerotherapy if Dr Perez thinks this is appropriate. If she has a CSF leak diagnosed then I am happy to help with local muscle flap (more content not included)... [facility] CNOVon 09-03-2020 CNOV Office Visit (AGPLAH WW) -- MARCOS SHELTON ([id number]) 1950 F Date Time Provider Department 09/03/20 3:00 PM LUIS MIGUEL SYLVESTER AGPLAHWW During your visit today, we recorded the following information about you: Weight Height 76.7 kg 1.626 m Luis Miguel Sylvester MD 09/03/2020 3:50 PM Signed HPI: Patient is a 70 year old female that is referred by Dr. Perez for wound on back, specifically on the lower back, along incision from back surgery fusion in 2017, that has been present for 5 months. History elicited from patient. Patient has been treated with antibiotics, silver product from wound center, released her after 2 weeks, states they could not do anything else for her. They referred to neurosurgeon Dr. Perez, who referred here. HIGH RISK ASSESSMENT: No Nutritional, Functional or Safety concerns. Current Outpatient Medications Medication Sig - polyethylene glycol 3350 (MIRALAX) 17 gram packet 17 g q 24 HR. Prn - hydrOXYzine HCl (ATARAX) 25 mg tablet Take 25 mg by mouth every 6 hours as needed. - OXcarbazepine (TRILEPTAL) 150 mg tablet 300 mg twice daily. - furosemide (LASIX) 40 mg tablet Take 40 mg by mouth once daily. - pyridoxine, vitamin B6, (VITAMIN B-6) 100 mg tablet Take 1 tablet by mouth once daily. - levothyroxine (SYNTHROID) 50 mcg tablet Take 50 mcg by mouth once daily. - omeprazole 40 mg capsule Take 40 mg by mouth once daily. - metoprolol tartrate, short acting, (LOPRESSOR) 25 mg tablet Take 25 mg by mouth once daily. - cyanocobalamin, vitamin B-12, (VITAMIN B-12 INJECTION) by INJECTION(UNSPECIFIED PARENTERAL ROUTES) route once every month. - rosuvastatin (CRESTOR) 20 mg tablet Take 20 mg by mouth once daily. - temazepam 30 mg cap Take 30 mg by mouth daily at bedtime. - aspirin, enteric coated 81 mg EC tablet Take 81 mg by mouth once daily. - montelukast sodium(SINGULAIR 10 MG TAB) take one tablet by mouth daily - NITROGLYCERIN 0.4 MG SUBLINGUAL TAB as needed for chest pain - ALBUTEROL 90 MCG/ACTUATION AEROSOL INHALER Inhale 1-2 Puffs as instructed every 4 hours as needed. SHAKE WELL BEFORE USING - Multivitamin with Iron-Mineral tab Take 1 tablet by mouth once daily. (Patient not taking: Reported on 09/03/2020 ) - linaCLOtide (LINZESS) 290 mcg capsule Take 290 mcg by mouth once daily. No current facility-administered medications for this visit. PAST MEDICAL HISTORY Diagnosis Date - Abdominal pain, right upper quadrant - Acid reflux - Anemia associated with chronic renal failure 01/02/2020 - Asthma - Callaway's esophagus - CAD (coronary artery disease) - Constipation - Diverticulitis - Early satiety - Essential hypertension, benign - Fatigue - Heart disease - Hemorrhoids - Loss of weight - Mitral valve disorders(424.0) with prolapse, needs abx prophylaxis - Other and unspecified hyperlipidemia - PVD (peripheral vascular disease) (HCC) - Rheumatoid arthritis(714.0) PAST SURGICAL HISTORY Procedure Laterality Date - APPENDECTOMY - BACK SURGERY HX 2009 lami and fusion L45 for spondylolisthesis - CC PTCA STENT 2007, 2009 - COLONOS W/REM POLYP SNARE 09/05/09 repeat in - EXCIS BREAST LESION rt - PAST SURGICAL HISTORY OF Left foot - PAST SURGICAL HISTORY OF Right shoulder - PAST SURGICAL HISTORY OF Right hip surgery - REVASCULARIZATION ILIAC ART ANGIOP EA IPSI VSL bilateral - REVISE MEDIAN N/CARPAL TUNNEL SURG x 2 Carpal tunnel decomp - TOTAL ABDOM HYSTERECTOMY Hysterectomy, AMALIA Social History Tobacco Use - Smoking status: Former Smoker Packs/day: 1.00 Years: 10.00 Pack years: 10.00 Types: Cigarettes Quit date: 07/09/1997 Years since quittin.1 - Smokeless tobacco: Never Used Substance Use Topics - Alcohol use: No - Drug use: No History of Bleeding Disorder: No History of DVT/Pulmonary Embolism: No History of MRSA: No MRSA Infection History of Diabetes: No History of Sleep Apnea: Yes, uses her CPAP machine rarely History of HTN: Yes PHYSICAL EXAM: Marcos had back surgery in [place] 2017, fusion L2-S1 healed well after surgery then noticed a wound around surgical sight about 5 months ago. Wound is about 5 cm deep, wound center states they cannot do anything more for her. We referred her to [facility] [phone]. We will contact Dr. Perez to discuss case. Ht 162.6 cm (5' 4.02) Wt 76.7 kg (169 lb) BMI 28.99 kg/m? Wound on lower back. Size is 5 cm deep. APPEARANCE: Clean ODOR: Strong malodor WOUND DISCHARGE: clear and brown SURROUNDING SKIN: Negative for erythema BASE OF WOUND: PAIN AND TENDERNESS: No: 0 on a scale of 0 to 10 a #5 Luis Miguel Sylvester MD Scribe Attestation Statement Scribe Statement: True Marcano am scribing for, and in the presence of Luis Miguel Sylvester MD. Scribe: True Franco MA Clinician Attestation Statement: The information in (more content not included)... [facility] CNOVon 08-27-2020 CNOV Office Visit (NUAGAK ) -- MARCOS SHELTON ([id number]) 1950 F Date Time Provider Department 08/27/20 3:00 PM SAMEER PEREZ During your visit today, we recorded the following information about you: Temperature Pulse Respiration Blood pressure 97.4 degrees 73/minute 16/minute 160/55 Weight Height 75.3 kg 1.626 m Sameer Perez MD 08/27/2020 3:34 PM Signed NEUROSURGERY CONSULT NOTE Sameer Perez MD Date of visit: August 27, 2020 Patient Name: Ms.Andra Chika Shelton Date of : 1950 Current Age: [age] year old Sex: female MRN/E# [id number] Chief Complaint: Patient presents with: New Patient HISTORY OF PRESENT ILLNESS : The patient is a 70 year old, right handed female who is referred by Dr. Maher for neurosurgical evaluation. Ms. Shelton presents to the office today as a new patient with imaging for evaluation of possible spinal fluid leak. She has a history of lumbar fusion L2- S1 in 2017 per another physician in [place]. She states she did well afterwards and incision healed until five months ago when she noticed a wound around the incision site. Since then wound had progressed. Wound care is following patient and has wound dressing changed daily. Per patient, wound is 5 cm deep. They state clear fluid has been leaking from the site and drainage is clear. She has not returned to her surgeon's office as she no longer lives in [place]. Wound care recommended she present here to due possible CSF leakage. She reports back pain around incision site but denies leg symptoms. She has not been on antibiotics for this. Her PCP ordered MRI and CT of the lumbar spine. She presents today for evaluation and plan of care. Symptoms: low back pain around wound PREVIOUS CONSERVATIVE TREATMENTS: Wound care PREVIOUS SURGERY: L2-S1 fusion per Dr. Twan Damian 2017 PAIN EVALUATION 08/27/2020 1504 Pain Level: 4 Pain Location: Back-Lower Description: Aching Frequency: Continuous Intervention: Relaxation PAST MEDICAL HISTORY Diagnosis Date - Abdominal pain, right upper quadrant - Acid reflux - Anemia associated with chronic renal failure 01/02/2020 - Asthma - Callaway's esophagus - CAD (coronary artery disease) - Constipation - Diverticulitis - Early satiety - Essential hypertension, benign - Fatigue - Heart disease - Hemorrhoids - Loss of weight - Mitral valve disorders(424.0) with prolapse, needs abx prophylaxis - Other and unspecified hyperlipidemia - PVD (peripheral vascular disease) (HCC) - Rheumatoid arthritis(714.0) PAST SURGICAL HISTORY Procedure Laterality Date - APPENDECTOMY - BACK SURGERY HX 2009 lami and fusion L45 for spondylolisthesis - CC PTCA STENT 2007, 2009 - COLONOS W/REM POLYP SNARE 09/05/09 repeat in -2012 - EXCIS BREAST LESION rt - PAST SURGICAL HISTORY OF Left foot - PAST SURGICAL HISTORY OF Right shoulder - PAST SURGICAL HISTORY OF Right hip surgery - REVASCULARIZATION ILIAC ART ANGIOP EA IPSI VSL bilateral - REVISE MEDIAN N/CARPAL TUNNEL SURG x 2 Carpal tunnel decomp - TOTAL ABDOM HYSTERECTOMY Hysterectomy, AMALIA FAMILY HISTORY Problem Relation Age of Onset - Cancer Mother lung - Heart Mother - Hypertension Father - Heart Father - Prostate Cancer Father - Diabetes Brother - Diabetes Paternal Grandmother - Hypertension Paternal Grandmother ALLERGIES Allergen Reactions - Macrobid [Nitrofura* - Penicillins - Sulfa (Sulfonamide * Unknown Current Outpatient Medications Medication Sig Dispense Refill - Multivitamin with Iron-Mineral tab Take 1 tablet by mouth once daily. 100 tablet 2 - polyethylene glycol 3350 (MIRALAX) 17 gram packet 17 g q 24 HR. Prn - OXcarbazepine (TRILEPTAL) 150 mg tablet 300 mg twice daily. - furosemide (LASIX) 40 mg tablet Take 40 mg by mouth once daily. - pyridoxine, vitamin B6, (VITAMIN B-6) 100 mg tablet Take 1 tablet by mouth once daily. 100 tablet 2 - levothyroxine (SYNTHROID) 50 mcg tablet Take 50 mcg by mouth once daily. - omeprazole 40 mg capsule Take 40 mg by mouth once daily. - metoprolol tartrate, short acting, (LOPRESSOR) 25 mg tablet Take 25 mg by mouth once daily. - cyanocobalamin, vitamin B-12, (VITAMIN B-12 INJECTION) by INJECTION(UNSPECIFIED PARENTERAL ROUTES) route once every month. - rosuvastatin (CRESTOR) 20 mg tablet Take 20 mg by mouth once daily. - temazepam 30 mg cap Take 30 mg by mouth daily at bedtime. - aspirin, enteric coated 81 mg EC tablet Take 81 mg by mouth once daily. - montelukast sodium(SINGULAIR 10 MG TAB) take one tablet by mouth daily 0 - NITROGLYCERIN 0.4 MG SUBLINGUAL TAB as needed for chest pain 0 - ALBUTEROL 90 MCG/ACTUATION AEROSOL INHALER Inhale 1-2 Puffs as instructed every 4 hours as needed. SHAKE WELL BEFORE USING 0 - hydrOXYzine HCl (ATARAX) 25 mg tablet Take 25 mg by mouth every 6 hour (more content not included)... [facility] ID-MRI SPINE LUMBAR W/O CONT RAST IMPORTon 07-17-2020 ID-MRI SPINE LUMBAR W/O CONTRAST IMPORT Images were obtained outside of [facility] CT-Spine Lumbar W/WO Contras t IMPORTon 06-05-2020 CT-Spine Lumbar W/WO Contrast IMPORT Images were obtained outside of [facility] ED REPORTon 05-01-2018 ED [place] [id number] INFORMATION MANAGEMENTEMERGENCY DEPARTMENT REPORTPatient: MARCOS SHELTON ANDREA C NP-C as dictated by MONIKA TORRES NP-[id number]/ 67 FStatus: DEP ER EDDate of Service: 04/25/18DATE OF FOLLOWUP: 04/29/18ADDENDUMThe patient had a urine culture come back showing enterococcus faecalis. Keflex is notlisted under the culture results. However, Keflex could possibly work on this bacteria. Idid speak with this patient. 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-Ccc: MONIKA TORRES << Signature on File>> Reported By: MONIKA TORRES Signed By: MONIKA TORRESCTests performed at:[address] [phone] [facility] EMERGENCY DEPARTMENT REPORTo n 04-27-2018 EMERGENCY DEPARTMENT REPORT [place], [place] [address]RADWPF INFORMATION MANAGEMENTEMERGENCY DEPARTMENT REPORTPatient: MARCOS SHELTON JOHN S D.O.[id number] 67 FStatus: [facility] EDDate of Service: 04/25/18TIME [id number] COMPLAINTAbdominal pain and rectal pain.HISTORY OF CHIEF COMPLAINTThis is a 67-year-old female who has abdominal pain and rectal pain. She states she hasbeen constipated. Has not had a bowel movement for a week. She says her rectum is verypainful. She states that is not normal for her.PAST MEDICAL HISTORYSignificant for asthma as well as CAD.PAST SURGICAL HISTORYShe has had none.SOCIAL HISTORYShe is nonsmoker, nondrinker. Denies drug use.REVIEW OF SYSTEMSNo headaches, blurred vision, loss of vision. No neck pain. Denies any chest pain orpalpitations. No shortness of breath or cough. Having the diffuse generalized abdominalpain and rectal pain. The patient's review of system otherwise negative. She did vomitonce today when she tried to drink some mag citrate.PHYSICAL EXAMINATIONShe is awake, alert, oriented x3, no acute distress. Appears to be well hydrated and wellnourished. HEENT is benign. Trachea is midline. Heart is regular rate and rhythm. Lungsare clear. Abdomen was soft, diffusely tender to palpation without rebound or guarding.No peritoneal signs. Extremities are without edema or cyanosis. Skin is without rashes.Her rectal exam: There is inflammation around the rectum. There was a fecal impactionwhen I did my digital exam. I did remove it digitally. She had a large bowel movementafterwards and then had a second large bowel movement after that. The patient is feelingbetter. The patient's extremities are without edema or cyanosis. Negative Homans.Neurologic exam: No focal deficits.EMERGENCY DEPARTMENT COURSEAt this time I got some lab work on her. Her BUN and creatinine are elevated today. Shehas a sodium of 133, potassium 3.8, chloride 93 with a bicarb of 27, BUN of 25 andcreatinine 2.12. She was that high when she came in before and when she went homeapparently was down to 1.2. The patient's glucose is 107 and lactic acid was negative.The patient's lipase was 80. White count is 12, hemoglobin 10.8 and urine is infected withgreater than 50 white cells. Now at this time she is not systemically ill and she feelsmuch better after the enema. The CT did show some perirectal inflammation but no abscess.I talked to the hospitalist, Dr. Zhu, who is talent acquisition operations manager. I described the patient to him.Discussed admission with him because of the elevated creatinine. I did give her a liter offluid down here. He felt that if she held her Lasix and Aldactone and followed up as anoutpatient that she would not need to be admitted for this at this time and did not feelthat she met criteria for admission. So at this time I talked with the patient. She isfeeling better. They did not want to admit her so I am going to discharge her home, haveher follow up with Dr. Maher in 1-2 days, hold her Lasix and Aldactone. Started her onRocephin for the UTI. We will send her home with a script for cephalexin and if she hasany worsening of her symptoms she is going to return back to the emergency room. She willbe also started on MiraLax daily to make sure she keeps her bowels regular.IMPRESSION1. Fecal impaction, resolved.2. Urinary tract infection.3. Acute on chronic renal failure.She is to return if she has any worsening symptoms. 04/28/18 2239 LUIS MIGUEL CHASE D.O.cc: LUIS MIGUEL CHASE D.O. << Signature on File>> Reported By: LUIS MIGUEL CHASE D.O. Signed By: LUIS MIGUEL CHASE D.O.Tests performed at:[address] [phone] [facility] 04-26-2018 Anion gap 3 molar conc 16.8 mmol/L Normal 15-22 [facility] Comment on above: Order Comment: PATIE NT IN TESTING Performed By: #### L 100.0350, L100.0030, L100.0010 ####[facility] [id number] [place] [address] Calcium mass conc 9.4 mg/dL Normal 8.8-10.2 [facility] Comment on above: Order Comment: PATIE NT IN TESTING Performed By: #### L 100.0350, L100.0030, L100.0010 ####[facility] [id number] [place] [address] Chloride molar conc 93 mmol/L Low 98-107 [facility] Comment on above: Order Comment: PATIE NT IN TESTING Performed By: #### L 100.0350, L100.0030, L100.0010 ####[facility] [id number] [place] [address] Creatinine mass conc 2.12 mg/dL High 0.50-0.90 [facility] Comment on above: Order Comment: PATIE NT IN TESTING Performed By: #### L 100.0350, L100.0030, L100.0010 ####[facility] [id number] [place] [address] eGFR if AFR CHERYL 28 [facility] Comment on above: Order Comment: PATIE NT IN TESTING Result Comment: eGFR >= 60 Indicates normal kidney function. * eGFR IS AN ESTIMATE * (AFR CHERYL = ) (non-AFR AM = NON-) MDRD calculation used in the eGFR should not be used to dose medications. For further limitations of the eGFR please refer to the Physician Website or the National Kidney Disease Education Program website (www.nkdep.nih.gov). Performed By: #### L 100.0350, L100.0030, L100.0010 #### - [id number] [place] [address] eGFR nonAFR Cheryl 23 [facility] Comment on above: Order Comment: PATIE NT IN TESTING Performed By: #### L 100.0350, L100.0030, L100.0010 #### - [id number] [place] [address] Glucose mass conc 107 mg/dL Normal 82-115 [facility] Comment on above: Order Comment: PATIE NT IN TESTING Performed By: #### L 100.0350, L100.0030, L100.0010 ####[facility] [id number] [place] [address] Potassium molar conc 3.8 mmol/L Normal 3.5-5.0 [facility] Comment on above: Order Comment: PATIE NT IN TESTING Performed By: #### L 100.0350, L100.0030, L100.0010 #### - [id number] [place] [address] Sodium molar conc 133 mmol/L Low 135-145 [facility] Comment on above: Order Comment: PATIE NT IN TESTING Performed By: #### L 100.0350, L100.0030, L100.0010 ####[facility] [id number] [place] [address] TCO2 27 mmol/L Normal 22-29 [facility] Comment on above: Order Comment: PATIE NT IN TESTING Performed By: #### L 100.0350, L100.0030, L100.0010 ####[facility] [id number] [place] [address] Urea nitrogen mass conc 25 mg/dL High 8-23 [facility] Comment on above: Order Comment: PATIE NT IN TESTING Performed By: #### L 100.0350, L100.0030, L100.0010 ####ML [facility] R[address] [place] [address] CBCon 04-26-2018 Basophils Auto #/vol (Bld) 0.10 x10(3) Normal 0.00-0.10 [facility] Comment on above: Order Comment: PATIE NT IN TESTING Performed By: #### L 200.0010 ####[address] [address] Basophils/100 WBC Auto (Bld) 0.7 % Normal 0.0-1.0 [facility] Comment on above: Order Comment: PATIE NT IN TESTING Performed By: #### L 200.0010 ####ML [facility] ISRCXRNQKP[address] [place] [address] Eosinophils Auto #/vol (Bld) 0.10 x10(3) Normal 0.00-0.54 [facility] Comment on above: Order Comment: PATIE NT IN TESTING Performed By: #### L 200.0010 ####[facility] FXPOUZPXMJ[address] [place] [address] Eosinophils/100 WBC Auto (Bld) 1.0 % Normal 0.5-4.9 [facility] Comment on above: Order Comment: PATIE NT IN TESTING Performed By: #### L 200.0010 ####ML [address] [address] Erythrocyte distribution width Auto Ratio (RBC) 16.2 % High 12.5-15.7 [facility] Comment on above: Order Comment: PATIE NT IN TESTING Performed By: #### L 200.0010 ####ML [facility] LYTRYGQEVA[address] [place] [address] Hematocrit Auto Volume Fraction (Bld) 31.4 % Low 36.0-48.0 [facility] Comment on above: Order Comment: PATIE NT IN TESTING Performed By: #### L 200.0010 ####ML [address] [address] Hemoglobin mass conc (Bld) 10.8 g/dL Low 12.0-16.0 [facility] Comment on above: Order Comment: PATIE NT IN TESTING Performed By: #### L 200.0010 ####ML [address] [address] Lymphocytes Auto #/vol (Bld) 2.00 x10(3) Normal 1.00-3.50 [facility] Comment on above: Order Comment: PATIE NT IN TESTING Performed By: #### L 200.0010 ####[address] [address] Lymphocytes/100 WBC Auto (Bld) 16.9 % Normal 16.0-48.0 [facility] Comment on above: Order Comment: PATIE NT IN TESTING Performed By: #### L 200.0010 ####ML [address] [address] MCH Auto Entitic mass (RBC) 31.3 pg Normal 28.5-32.9 [facility] Comment on above: Order Comment: PATIE NT IN TESTING Performed By: #### L 200.0010 ####ML [facility] NCJNVNWDAG[address] [place] [address] MCHC Auto mass conc (RBC) 34.3 g/dL Normal 33.0-36.0 [facility] Comment on above: Order Comment: PATIE NT IN TESTING Performed By: #### L 200.0010 ####[address] [address] MCV Auto Entitic volume (RBC) 91.3 fL Normal 80.0-99.0 [facility] Comment on above: Order Comment: PATIE NT IN TESTING Performed By: #### L 200.0010 ####ML - [id number] [place] [address] Monocytes Auto #/vol (Bld) 0.90 x10(3) High 0.30-0.80 [facility] Comment on above: Order Comment: PATIE NT IN TESTING Performed By: #### L 200.0010 ####ML [facility] YMJRCXGIDC[address] [place] [address] Monocytes/100 WBC Auto (Bld) 7.6 % Normal 4.3-11.2 [facility] Comment on above: Order Comment: PATIE NT IN TESTING Performed By: #### L 200.0010 ####ML [facility] RQGWPFXOCV[address] [place] [address] Neutrophils Auto #/vol (Bld) 8.90 x10(3) High 1.40-6.50 [facility] Comment on above: Order Comment: PATIE NT IN TESTING Performed By: #### L 200.0010 ####ML [facility] NONYLMXTRK[address] [place] [address] Neutrophils/100 WBC Auto (Bld) 73.8 % High 45.0-73.0 [facility] Comment on above: Order Comment: PATIE NT IN TESTING Performed By: #### L 200.0010 ####ML [facility] AUZHIBKZSI[address] [place] [address] Platelet mean volume Auto Entitic volume (Bld) 7.2 fL Low 7.5-9.5 [facility] Comment on above: Order Comment: PATIE NT IN TESTING Performed By: #### L 200.0010 ####ML [facility] KVVWJXWWBZ[address] [place] [address] Platelets Auto #/vol (Bld) 231 X10(3) Normal 150-450 [facility] Comment on above: Order Comment: PATIE NT IN TESTING Performed By: #### L 200.0010 ####ML [facility] NBVRXYYNBQ[address] [place] [address] RBC Auto #/vol (Bld) 3.44 x10(6) Normal 3.30-5.00 [facility] Comment on above: Order Comment: PATIE NT IN TESTING Performed By: #### L 200.0010 ####ML - [facility] SLPJBOQFHG138 [place] [address] WBC Auto #/vol (Bld) 12.0 x10(3) High 4.5-10.0 [facility] Comment on above: Order Comment: PATIE NT IN TESTING Performed By: #### L 200.0010 ####ML - [facility] SYSGQMTWEC041 [place] [address] CT ABD/PEL WO CONTRASTon CT ABD/PEL WO CONTRAST [facility] [place], [place] [address]Uaxs: MARCOS SHELTON LPhys: CURRENT,LUIS MIGUEL Anton D.O.: 54 Age: 67 Sex: FAcct: [id number] Loc: EDExam Date: 04/26/18 Status: REG ERRadiology No.: [id number] Number: [id number] # [id number] CT / CT ABD/PEL WO CONTRASTClinical history: Constipation. Abdomen pain. Nausea.Comparison: None.Axial scans were obtained through the abdomen and pelvis. Intravenous contrastwas not given. Enteric contrast was given prior to the exam.No acute abnormality is present at the lung bases.The liver, pancreas, spleen, adrenal glands, kidneys, abdominal aorta, andinferior vena cava show no sign of acute abnormality. Abdominal aorta isatherosclerotic.There is no intestinal obstruction or inflammation. No abnormal fluid or gascollection is present in the abdomen. There is mild residual stool in thecolon without evidence of obstruction.There is no pelvic mass. Perianal inflammation is present without evidence ofabscess. There is no abnormal fecal retention in the colon. Urinary bladder isnormal in size and contains no stones. There is no pelvic mass or lymph nodeenlargement.Patient has had instrumented lumbar spine fusion. There is no sign of fractureor acute skeletal abnormality.Impression:Mod erate perianal inflammation without abscess. No intestinal obstruction orperforation.This exam was performed according to our departmental dose optimizationprogram, and includes the following measures where applicable: automatedexposure control, adjustment of the mAs and/or kVp according to patient sizeand/or exam, and an iterative reconstruction algorithm.Professional interpretation provided by [facility] [id number].Thank you for this referral.< >Reported By: ANDREI SUGGS M.D.Signed In NovaPro By: ANDREI SUGGS M.D. << Signature on File>> Reported By: ANDREI SUGGS M.D. Signed By: ANDREI SUGGS M.D.Tests performed at:[address] [phone] Normal [facility] HEPATIC PANELon 04-26-2018 A:G RATIO 1.03 Low 1.1-2.5 [facility] Comment on above: Order Comment: PATIE NT IN TESTING Performed By: #### L 100.0350, L100.0030, L100.0010 ####ML - QHFEPKBVHI[address] [place] [address] Albumin mass conc 3.3 g/dL Low 3.5-5.2 [facility] Comment on above: Order Comment: PATIE NT IN TESTING Performed By: #### L 100.0350, L100.0030, L100.0010 ####ML - [id number] [place] [address] ALK. PHOS 139 U/L High 35-105 [facility] Comment on above: Order Comment: PATIE NT IN TESTING Performed By: #### L 100.0350, L100.0030, L100.0010 ####ML - [id number] [place] [address] ALT enzyme act/vol 34 U/L High 5-33 [facility] Comment on above: Order Comment: PATIE NT IN TESTING Performed By: #### L 100.0350, L100.0030, L100.0010 ####ML - DOZTBFRZXP215 [place] [address] AST enzyme act/vol 32 U/L Normal 5-32 [facility] Comment on above: Order Comment: PATIE NT IN TESTING Performed By: #### L 100.0350, L100.0030, L100.0010 ####ML - JHPVEPGHOZ273 [place] [address] Bilirubin Ql (U) 0.7 mg/dL Normal 0.2-1.2 [facility] Comment on above: Order Comment: PATIE NT IN TESTING Performed By: #### L 100.0350, L100.0030, L100.0010 ####[facility] HGBTKXZORL100 [place] [address] DIRECT BILIRUBI 0.3 mg/dL Normal 0.0-0.3 [facility] Comment on above: Order Comment: PATIE NT IN TESTING Performed By: #### L 100.0350, L100.0030, L100.0010 ####[facility] QNBSNHACZQ337 [place] [address] Globulin Calculated mass conc (S) 3.2 g/dL Normal 1.5-4.5 [facility] Comment on above: Order Comment: PATIE NT IN TESTING Performed By: #### L 100.0350, L100.0030, L100.0010 ####[facility] ZWLPSJKZLZ061 [place] [address] Protein mass conc 6.5 g/dL Normal 6.4-8.3 [facility] Comment on above: Order Comment: PATIE NT IN TESTING Performed By: #### L 100.0350, L100.0030, L100.0010 ####[facility] VJOIUCLAKY388 [place] [address] LACTIC ACIDon 04-26-2018 Lactate molar conc 1.2 mmol/L Normal 0.5-2.0 [facility] Comment on above: Performed By: #### L 100.0440 ####[facility] NHJELOLOQO110 [place] [address] LIPASEon 04-26-2018 Lipase enzyme act/vol 80 U/L High 13-60 [facility] Comment on above: Order Comment: PATIE NT IN TESTING Performed By: #### L 100.0350, L100.0030, L100.0010 ####[facility] OEDD[address] [place] [address] UA W/C&Son 04-26-2018 Bilirubin Ql (U) Negative Normal NEGATIVE [facility] Comment on above: Order Comment: Urine Specimen Source+ CLEAN CATCH Performed By: #### L 200.3190, L200.3001 ####ML - [id number] [place] [facility] [place] [address] Color Nom (U) YELLOW Normal YELLOW [facility] Comment on above: Order Comment: Urine Specimen Source+ CLEAN CATCH Performed By: #### L 200.3190, L200.3001 ####ML - [id number] [place] [facility] [place] [address] Glucose Ql (U) Negative Normal NEGATIVE [facility] Comment on above: Order Comment: Urine Specimen Source+ CLEAN CATCH Performed By: #### L 200.3190, L200.3001 ####ML - [id number] [place] [address] Hemoglobin Test strip Ql (U) SMALL Normal NEGATIVE [facility] Comment on above: Order Comment: Urine Specimen Source+ CLEAN CATCH Performed By: #### L 200.3190, L200.3001 ####ML - [id number] [place] [address] Leukocyte esterase Test strip Ql (U) LARGE Normal NEGATIVE [facility] Comment on above: Order Comment: Urine Specimen Source+ CLEAN CATCH Performed By: #### L 200.3190, L200.3001 ####ML - [id number] [place] [facility] [place] [address] Nitrite Test strip Ql (U) Negative Normal NEGATIVE [facility] Comment on above: Order Comment: Urine Specimen Source+ CLEAN CATCH Performed By: #### L 200.3190, L200.3001 ####ML - [id number] [place] [address] pH Test strip (U) 6.0 [pH] Normal 5.0-8.0 [facility] Comment on above: Order Comment: Urine Specimen Source+ CLEAN CATCH Performed By: #### L 200.3190, L200.3001 ####ML - [id number] [place] [address] Protein Test strip Ql (U) 30 MG/DL Normal NEGATIVE [facility] Comment on above: Order Comment: Urine Specimen Source+ CLEAN CATCH Performed By: #### L 200.3190, L200.3001 ####ML - [id number] [place] [address] URINE APPEARANC CLEAR Normal CLEAR [facility] Comment on above: Order Comment: Urine Specimen Source+ CLEAN CATCH Performed By: #### L 200.3190, L200.3001 ####ML - [id number] [place] [address] URINE KETONE Negative Normal NEGATIVE [facility] Comment on above: Order Comment: Urine Specimen Source+ CLEAN CATCH Performed By: #### L 200.3190, L200.3001 ####ML - [id number] [place] [address] URINE SPECIFIC 1.025 Normal 1.001-1.035 [facility] Comment on above: Order Comment: Urine Specimen Source+ CLEAN CATCH Performed By: #### L 200.3190, L200.3001 ####ML - [id number] [place] [address] URINE UROBILINO 2.0 EU/DL Normal 0.2-1.0 [facility] Comment on above: Order Comment: Urine Specimen Source+ CLEAN CATCH Performed By: #### L 200.3190, L200.3001 ####ML - [id number] [place] [address] UCon 04-26-2018 Protein mass conc ORGANISM 1: ENTEROCO CCUS FAECALISCOLONY COUNT > 100,000 ENTEROCOCCUS FAECALIS: M.I.C. REACTION AMPICILLIN <=2 S CIPROFLOXACIN <=1 S NITROFURANTOIN <=32 S LEVOFLOXACIN <=1 S PENICILLIN 8 S TETRACYCLINE >8 R VANCOMYCIN 2 S LINEZOLID <=1 S DAPTOMYCIN 1 SS = Susceptible I = Intermediate R = Resistant R*=RESISTANT (ORGANISM HAS INTRINSIC OR INDUCED RESISTANCE)N/R= NOT REPORTED BRENDA= BETA-LACTAMASE POSITIVEEBL?= EXTENDED SPECTRUM BETA-LACTAMASE Normal [facility] Comment on above: Performed By: #### M 120.0100 ####[facility] [id number] [place] [address] URINE MICROSCOPon 04-26-2018 Bacteria LM.HPF #/area (Urine sed) 2+ Normal NEGATIVE [facility] Comment on above: Order Comment: Urine Specimen Source+ CLEAN CATCH Performed By: #### L 200.3190, L200.3001 ####ML - [id number] [place] [address] Mucus LM Ql (Urine sed) 2+ Normal NEGATIVE [facility] Comment on above: Order Comment: Urine Specimen Source+ CLEAN CATCH Performed By: #### L 200.3190, L200.3001 ####ML - [id number] [place] [address] RBC Test strip #/vol (U) 6-10 Normal 0-2 [facility] Comment on above: Order Comment: Urine Specimen Source+ CLEAN CATCH Performed By: #### L 200.3190, L200.3001 ####ML - [id number] [place] [address] SQUAMOUS RARE Normal NEGATIVE [facility] Comment on above: Order Comment: Urine Specimen Source+ CLEAN CATCH Performed By: #### L 200.3190, L200.3001 ####ML - [id number] [place] [address] WBC #/vol (U) /uL Normal 0-5 [facility] Comment on above: Order Comment: Urine Specimen Source+ CLEAN CATCH Performed By: #### L 200.3190, L200.3001 ####ML - [id number] [place] [address] CLINICAL RESUMEon 03-12-2018 CLINICAL [place]UME [place] [address]XWTCDY INFORMATION MANAGEMENTCLINICAL RESUMEPatient: MARCOS SHELTON VAMSI M.D.[id number] FStatus: DIS IN 2SWEST 2926-BDate of Admission: 03/06/18 Date of Discharge: 03/11/18PRIMARY DIAGNOSIS1. Right proximal humerus fracture status post surgery.2. Chronic coronary artery disease.3. Hyperthyroidism.4. Hypertension.5. Bilateral lower extremity weakness which resolved during this admission.6. Adrenal insufficiency for which we continued Cortef.7. Chronic kidney disease.SERVICEAdmitted to hospitalists service.CONSULTATIONS1. Orthopaedic consult.PROCEDURESThe patient underwent right humerus surgery.PHYSICAL EXAMINATIONOn the day of discharge the patient's vitals, temperature 98.3, heart rate is 61,respiratory rate is 18, blood pressure is 125/72 saturating 98% on room air. GeneralExamination: The patient is alert and oriented x3 in no distress. Neck is supple. HEENT:Normocephalic, atraumatic. Pupils equal, reactive to light. Heart: S1, S2. No murmurs,gallops or regurgitation. Lungs are clear to auscultation bilaterally. There is nowheezing, rales, rhonchi. Abdomen: Nondistended, nontender. Bowel sounds are present.Extremities: Right shoulder is placed in sling. No edema noticed.BRIEF HOSPITAL COURSEMiss Cat is a 66 year old female came to the Emergency Room after having a fall andfound that she was having right side proximal right humerus fracture and we consultedorthopaedics who came and evaluated the patient and the patient got surgery day beforeyesterday and she tolerated well and placed in a sling and they recommended to follow up asan outpatient. Regarding her chronic conditions like coronary artery disease she remainedchest pain free. We resumed her home medications. The patient was having hyperthyroidismon TSH. I got a Free T3 and T4 which were normal and I discontinued Synthroid andrecommended to follow up as an outpatient for her iatrogenic hyperthyroidism.Hypertensi on, blood pressure was fairly well controlled with current medications. Duringthe hospital she complained of bilateral lower extremity weakness for which we got the MRIof the lumbar spine which showed some advanced degenerative disc disease in the posteriorand the posterior disc herniation affecting L2 and L3. Orthopaedics saw the patient. Theymentioned that there is no gross central stenosis and they will continue to follow as anoutpatient. Her weakness has significantly improved and she did well with the physicaltherapy on the day of discharge. She also had some adrenal insufficiency given her chronicuse of prednisone. We gave a stress dose of hydrocortisone before the surgery. Shetolerated well and we continued Cortef and they recommended to follow up as an outpatientto wean her off from the steroids. Chronic kidney disease, creatinine was at baseline.After getting clearance from all the consultants I went ahead and discharged the patient tonursing home.DISCHARGE MEDICATIONSDischarge medications are,1. [place].2. Cortef.3. MiraLax.4. Cholecalciferol.5. Lasix.6. Spironolactone.7. Rosuvastatin.8. Levothyroxine.9. Proventil.10. Gabapentin.11. Temazepam.12. Ranexa.13. Nitroglycerine.14. Omeprazole.15. Zofran.16. Metoprolol.17. Singulair.18. Folic acid.DISCHARGE INSTRUCTIONS1. Discharge diet is regular diet.2. Activity as tolerated.3. Follow up appointment with orthopaedics within 1 week.4. Follow up with the PCP in 1 to 2 weeks.DISCHARGE TIME SPENTWas about 40 minutes. 03/12/18 1458 JERMAN ZAPATA M.D.cc: JERMAN ZAPATA M.D. << Signature on File>> Reported By: JERMAN ZAPATA M.D. Signed By: JERMAN ZAPATA M.D.Tests performed at:[address] [phone] Normal [facility] CBCon 03-11-2018 Basophils Auto #/vol (Bld) 0.10 x10(3) Normal 0.00-0.10 [facility] Comment on above: Performed By: #### L 200.0010 ####[address] [address] Basophils/100 WBC Auto (Bld) 0.6 % Normal 0.0-1.0 [facility] Comment on above: Performed By: #### L 200.0010 ####ML [facility] IPLRWWCGBA[address] [place] [address] Eosinophils Auto #/vol (Bld) 0.30 x10(3) Normal 0.00-0.54 [facility] Comment on above: Performed By: #### L 200.0010 ####ML [address] [address] Eosinophils/100 WBC Auto (Bld) 3.4 % Normal 0.5-4.9 [facility] Comment on above: Performed By: #### L 200.0010 ####ML [address] [address] Erythrocyte distribution width Auto Ratio (RBC) 16.3 % High 12.5-15.7 [facility] Comment on above: Performed By: #### L 200.0010 ####ML [address] [address] Hematocrit Auto Volume Fraction (Bld) 29.4 % Low 36.0-48.0 [facility] Comment on above: Performed By: #### L 200.0010 ####ML [address] [address] Hemoglobin mass conc (Bld) 10.0 g/dL Low 12.0-16.0 [facility] Comment on above: Performed By: #### L 200.0010 ####[address] [address] Lymphocytes Auto #/vol (Bld) 2.30 x10(3) Normal 1.00-3.50 [facility] Comment on above: Performed By: #### L 200.0010 ####ML [address] [address] Lymphocytes/100 WBC Auto (Bld) 24.3 % Normal 16.0-48.0 [facility] Comment on above: Performed By: #### L 200.0010 ####ML [address] [address] MCH Auto Entitic mass (RBC) 31.0 pg Normal 28.5-32.9 [facility] Comment on above: Performed By: #### L 200.0010 ####ML [address] [address] MCHC Auto mass conc (RBC) 34.1 g/dL Normal 33.0-36.0 [facility] Comment on above: Performed By: #### L 200.0010 ####ML [address] [address] MCV Auto Entitic volume (RBC) 90.9 fL Normal 80.0-99.0 [facility] Comment on above: Performed By: #### L 200.0010 ####[address] [address] Monocytes Auto #/vol (Bld) 1.00 x10(3) High 0.30-0.80 [facility] Comment on above: Performed By: #### L 200.0010 ####[address] [address] Monocytes/100 WBC Auto (Bld) 10.0 % Normal 4.3-11.2 [facility] Comment on above: Performed By: #### L 200.0010 ####[address] [address] Neutrophils Auto #/vol (Bld) 5.90 x10(3) Normal 1.40-6.50 [facility] Comment on above: Performed By: #### L 200.0010 ####[address] [address] Neutrophils/100 WBC Auto (Bld) 61.7 % Normal 45.0-73.0 [facility] Comment on above: Performed By: #### L 200.0010 ####[address] [address] Platelet mean volume Auto Entitic volume (Bld) 6.8 fL Low 7.5-9.5 [facility] Comment on above: Performed By: #### L 200.0010 ####[address] [address] Platelets Auto #/vol (Bld) 184 X10(3) Normal 150-450 [facility] Comment on above: Performed By: #### L 200.0010 ####[address] [address] RBC Auto #/vol (Bld) 3.23 x10(6) Low 3.30-5.00 [facility] Comment on above: Performed By: #### L 200.0010 ####ML [address] [place] [address] WBC Auto #/vol (Bld) 9.6 x10(3) Normal 4.5-10.0 [facility] Comment on above: Performed By: #### L 200.0010 ####ML - [facility] [id number] [place] [address] OPERATIVE REPORTon 8 OPERATIVE REPORT [place], [place] [address]NTJLFH INFORMATION MANAGEMENTOPERATIVE REPORTPatient: MARCOS SHELTON III,LUIS MIGUEL Burgess D.O.[id number][birth year] 67 FStatus: ADM IN [address] [place], [place] [address]-BDATE OF [id number]/09/2018PREOPERAT RUSSELL DIAGNOSISRight shoulder proximal humerus fracture.POSTOPERATIVE DIAGNOSISRight shoulder proximal humerus fracture.PROCEDURE1. Right shoulder reverse total shoulder arthroplasty for fracture, CPT code 06876.2. Right shoulder open acute rotator cuff repair of the supraspinatus and subscapularis,CPT code 77319.3. Right shoulder open long head of the biceps tenodesis, CPT code 47904.SURGEONLuis Miguel Rose D.O.ASSISTANTNone.ANESTHES IAGeneral endotracheal intubation plus interscalene block.EBLApproximately 150 mL.FLUIDSSee anesthesia record.COMPLICATIONSNone.I MPLANTA Tornier reverse fracture consisting of:1. A 25 x 35 mm threaded post baseplate.2. A 36 mm lateralized glenosphere.3. A long humeral stem measuring 9 mm x 180 mm.4. A 36 mm plus 9 lateralized humeral insert.INDICATION FOR PROCEDUREThe patient is a pleasant 67-year-old female who suffered a right shoulderproximal humerus fracture which was initially treated conservatively. Unfortunately, shewas unable to thrive at home and had a difficult time ambulating with a walker secondary toher fracture. She also had considerable amount of pain. This prompted us to considersurgicalreconstruc tion with a reverse total shoulder arthroplasty. All risks and benefits as wellas the postoperative rehabilitative course was outlined at length with the patient. She didwish to proceed and she did sign a formal surgical consent.PROCEDURE IN DETAILThe patient was seen in the preop holding area. Any and all final questions were answeredwith the patient. The correct operative site was marked with aid of the patient. Thepatient received preoperative antibiotic. The patient was then given an interscalene blockper the anesthesia team, taken to the OR and placed supine on the operating table.Underwent endotracheal intubation without complication. The patient was sat in a beachchair position with all bony prominences well padded. The neck was assessed to make surethere was no traction on the brachial plexus. The right arm was then sterilely prepped anddraped in standard fashion and the entire OR team paused for a formal time out.I turned my attention to the right shoulder. I infiltrated the skin with a combination ofMarcaine and epi. I made a standard incision over the deltopectoral interval, from the tipofthe coracoid to the proximal humerus. Meticulous hemostasis was maintained. A fullthickness medial skin flap was developed. Self-retaining retractors were placed. Idissected out the cephalic vein and was able to identify the deltopectoral interval. Thiswas developed as was the subdeltoid space. Retractors were placed to improve myvisualization. The subconjoined tendon area was developed and retracted medially. This gaveme excellent exposure to the proximal humerus.BICEP TENODESIS:The biceps was identified and tenodesed in situ to the pectoralis major tendon. I usedseveralstiches of #1 Vicryl to secure the tendon. The biceps tendon was then truncated and followedinto the bicipital groove. The bicipital groove outlined the greater and lesser tuberositiesnicely.I used a micro sagittal saw to develop a fracture plan with the bicipital groove to createtwoseparate fracture fragment pieces constituting the greater and lesser tuberosities. Thetuberositieswere then secured with #1 Vicryl stitches to act as traction stitches for control. Thestitches werepassed through the musculotendinous junction in each tuberosity.Next, I was able to remove the humeral head without complication. I contoured theundersurfacesof the lesser and greater tuberosity pieces, removing excess bone that would prohibit myreduction. I turned my attention to the glenoid. Copious irrigation with hydrogen peroxideandsaline solution was performed. I excised the labrum in a circumferential fashion. Idelivered a guide pin into the glenoid in a center center position with approximately 10degrees of inferior tilt. I reamed down to subchondral bone and was pleased withpreparation of the bony glenoid. A central drill hole and countersink hole were drilledwithout complication. I used a depth gauge to measure the length of the threaded postbaseplate. Any excess soft tissue was removed around the glenoid itself and I was able toinsert a 25 x 35 mm threaded post baseplate into the glenoid vault without complication. Thebaseplate had an excellent and secure fit. Peripheral locking screws were then drilled witha guide,measured with a depth gauge and positioned without complication. A peripheral reamer wasthen used to remove any excess bone that would prohibit seating of the glenosphere. I feltalateralized glenosphere would be optimal for her given her fracture. The glenosphere wasimpacted into position and set screw was tightened.I turned my attention to the proximal humerus. The patient has a severe fracture of thelesser tuberosity that extends down the medial calcar. Based on this fracture type Idecided that a long stem would be most appropriate. I prepared the canal of the humeruswith copious irrigation. Two, 2 mm drill holes, were placed within the proximal shaft forlatertuberosity repairs. Once this was performed, I placed a 9 mm x 180 mm trial into positionaligned with appropriate amount of retroversion. I reduced the shoulder trial implant andfound that it had an excellent fit. I decided that this would be the final implant size.The shoulder was disarticulated. Antibiotic laden cement was prepared on the back table.I prepared the humerus for cement implantation of the reverse prosthesis. The cement wasdigitally impacted to remove any air bubbles. The humeral stem was positioned with thecorrect height and version based off our trial. The cement was allowed to harden and cure.Prior to implantation - a bone graft had been placed within the humeral stem that wasobtained from the humeral head fragment. A trial reduction with a +6 polyethylene wasperformed. I felt that a +9 would give her the optimal fit. Shoulder was disarticulatedand the +9 polyethylene was impacted into position and shoulder was reduced. Two Niceloops were placed around implant to act as a circlage for later tuberosity reconstruction.TUBEROSITY REDUCTION:I obtained an excellent reduction of the greater and lesser tuberosities. The reduction wasobtained using a combination of Nice loops and multiple 2-0 fiber wires. The circumferentialNice loops were passed around the implant and tightened which brought the lesser andgreater tuberosities nicely into reduction. Figure of eight stitches with 2-0 fiber wirewerethen passed around the soft tissues of the greater and lesser tuberosities which providedadditional fixation. The traction stitches (that were initially placed within thetuberosities) were then tied to themselves as a third form of fixation.ACUTE ROTATOR CUFF REPAIR:Following reduction of the tuberosities I next inspected the rotator cuff. This patient hadatear of her supraspinatus and subscapularis which extended into the rotator interval. Thistear was closed in a czlr-yi-lazj fashion which with 2-0 Vicryl. A 2-0 fiber wire was alsousedto re-enforce the construct. The shoulder was then taken through a range of motion and theconstruct moved as a unit. I was pleased with the final construct.The patient's shoulder was copiously irrigated with betadine solution and normal saline.The deep layer was closed with 2-0 Vicryl. The cuticular layer was closed with runningMonocryl and Dermabond glue and tape was applied to the skin. The patient was then takenout of the drapes. Secondary to severely thin skin, a small skin tear occur thatdelaminatedthe skin. This was addressed with xeroform gauze, regular gauze, ABD and a dressing thatused no further tape secondary to her thin skin. The patient was discharged to the PACUin stable condition.Karl was returned to the floor. She will remain in her sling. We will change her dressing in2 days. She will receive appropriate postoperative pain medication and IV antibiotics. Aleenawiaracelis be discharged to an ECF once cleared by the medicine service, social worker psychiatric and PT.She is to be partial weight bearing with the arm during ambulation with a walker. 03/11/18 1000 LUIS MIGUEL ROSE III, D.O.cc: LUIS MIGUEL ROSE III, D.O. << Signature on File>> Reported By: LUIS MIGUEL ROSE III, D.O. Signed By: LUIS MIGUEL ROSE III, D.O.Tests performed at:[address] [phone] [facility] BMPon 03-10-2018 Anion gap 3 molar conc 15.6 mmol/L Normal 15-22 [facility] Comment on above: Performed By: #### L 100.0010 ####[facility] YBW[address] [place] [address] Calcium mass conc 8.8 mg/dL Normal 8.8-10.2 [facility] Comment on above: Performed By: #### L 100.0010 ####ML [address] [address] Chloride molar conc 105 mmol/L Normal 98-107 [facility] Comment on above: Performed By: #### L 100.0010 ####ML - [address] [address] Creatinine mass conc 1.20 mg/dL High 0.50-0.90 [facility] Comment on above: Performed By: #### L 100.0010 ####ML [facility] GUUP[address]TBWH[address] [place] [address] eGFR if AFR CHERYL 55 [facility] Comment on above: Result Comment: eGFR >= 60 Indicates normal kidney function. * eGFR IS AN ESTIMATE * (AFR CHERYL = ) (non-AFR AM = NON-) MDRD calculation used in the eGFR should not be used to dose medications. For further limitations of the eGFR please refer to the Physician Website or the National Kidney Disease Education Program website (www.nkdep.nih.gov). Performed By: #### L 100.0010 ####ML - UJHQODKPGG[address] [place] [address] eGFR nonAFR Cheryl 45 [facility] Comment on above: Performed By: #### L 100.0010 ####ML - [id number] [place] [address] Glucose mass conc 121 mg/dL High 82-115 [facility] Comment on above: Performed By: #### L 100.0010 ####ML - [address] [address] Potassium molar conc 3.6 mmol/L Normal 3.5-5.0 [facility] Comment on above: Performed By: #### L 100.0010 ####ML [address] [address] Sodium molar conc 141 mmol/L Normal 135-145 [facility] Comment on above: Performed By: #### L 100.0010 ####[address] [address] TCO2 24 mmol/L Normal 22-29 [facility] Comment on above: Performed By: #### L 100.0010 ####[address] [address] Urea nitrogen mass conc 16 mg/dL Normal 8-23 [facility] Comment on above: Performed By: #### L 100.0010 ####ML [address] [address] CBCon 03-10-2018 Basophils Auto #/vol (Bld) 0.10 x10(3) Normal 0.00-0.10 [facility] Comment on above: Performed By: #### L 200.0010 ####ML [facility] WEZLIBHDIF[address] [place] [address] Basophils/100 WBC Auto (Bld) 0.6 % Normal 0.0-1.0 [facility] Comment on above: Performed By: #### L 200.0010 ####ML [address] [address] Eosinophils Auto #/vol (Bld) 0.10 x10(3) Normal 0.00-0.54 [facility] Comment on above: Performed By: #### L 200.0010 ####[address] [address] Eosinophils/100 WBC Auto (Bld) 0.9 % Normal 0.5-4.9 [facility] Comment on above: Performed By: #### L 200.0010 ####[facility] [place] [address] Erythrocyte distribution width Auto Ratio (RBC) 15.9 % High 12.5-15.7 [facility] Comment on above: Performed By: #### L 200.0010 ####ML [address] [address] Hematocrit Auto Volume Fraction (Bld) 30.2 % Low 36.0-48.0 [facility] Comment on above: Performed By: #### L 200.0010 ####ML [address] [address] Hemoglobin mass conc (Bld) 10.1 g/dL Low 12.0-16.0 [facility] Comment on above: Performed By: #### L 200.0010 ####ML [address] [address] Lymphocytes Auto #/vol (Bld) 1.80 x10(3) Normal 1.00-3.50 [facility] Comment on above: Performed By: #### L 200.0010 ####ML [address] [address] Lymphocytes/100 WBC Auto (Bld) 20.7 % Normal 16.0-48.0 [facility] Comment on above: Performed By: #### L 200.0010 ####ML [facility] PBEINGSGLT[address] [place] [address] MCH Auto Entitic mass (RBC) 30.2 pg Normal 28.5-32.9 [facility] Comment on above: Performed By: #### L 200.0010 ####ML [facility] VQLZ[address] [place] [address] MCHC Auto mass conc (RBC) 33.4 g/dL Normal 33.0-36.0 [facility] Comment on above: Performed By: #### L 200.0010 ####ML [address] [address] MCV Auto Entitic volume (RBC) 90.3 fL Normal 80.0-99.0 [facility] Comment on above: Performed By: #### L 200.0010 ####[address] [address] Monocytes Auto #/vol (Bld) 0.70 x10(3) Normal 0.30-0.80 [facility] Comment on above: Performed By: #### L 200.0010 ####ML [address] [address] Monocytes/100 WBC Auto (Bld) 7.7 % Normal 4.3-11.2 [facility] Comment on above: Performed By: #### L 200.0010 ####[address] [address] Neutrophils Auto #/vol (Bld) 6.20 x10(3) Normal 1.40-6.50 [facility] Comment on above: Performed By: #### L 200.0010 ####[address] [address] Neutrophils/100 WBC Auto (Bld) 70.1 % Normal 45.0-73.0 [facility] Comment on above: Performed By: #### L 200.0010 ####[address] [address] Platelet mean volume Auto Entitic volume (Bld) 7.2 fL Low 7.5-9.5 [facility] Comment on above: Performed By: #### L 200.0010 ####[address] [address] Platelets Auto #/vol (Bld) 213 X10(3) Normal 150-450 [facility] Comment on above: Performed By: #### L 200.0010 ####[address] [address] RBC Auto #/vol (Bld) 3.34 x10(6) Normal 3.30-5.00 [facility] Comment on above: Performed By: #### L 200.0010 ####ML - [facility] RAUFHHXHZQ[address] [place] [address] WBC Auto #/vol (Bld) 8.9 x10(3) Normal 4.5-10.0 [facility] Comment on above: Performed By: #### L 200.0010 ####ML - [facility] WCTQEXJRRA894 [place] [address] ELECTROCARDIOGRAMon 03-09-20 ELECTROCARDIOGRAM [place], [place] [address]RPFFCV INFORMATION MANAGEMENTELECTROCARDIOGRA M REPORTPatient: MARCOS SHELTON ering: JERMAN ZAPATA M.D.[id number][birth year] 67 FExam Date: 03/09/18Report #: [id number]: ADM IN 3SEAST 3916-BSINUS RHYTHMPOSSIBLE RIGHT VENTRICULAR CONDUCTION DELAYNONSPECIFIC T-WAVE ABNORMALITYBORDERLINE ECGPREVIOUS TRACIN03/08/18 16.58Physician Business Team Leader: ANUJA BRAR M.D.Ventricular Rate EK /minR-R Interval: 857 msP Wave duration: 112 msQRS duration: 85 msP-R interval: 120 msQ-T interval: 403 msQ-T interval (corrected): 425 msQ-T Dispersion: msP wave axis: 11 degQRS axis: 31 degT axis: 30 degSigned in PYRAMIS03/09/18 1350 ANUJA BRAR M.D.cc: << Signature on File>> Reported By: ANUJA BRAR M.D. Signed By: ANUJA BRAR M.D.Tests performed at:[address] [phone] Normal [facility] ABO/RHon 03-09-2018 BT XM ADD ON Positive [facility] Comment on above: Order Comment: # of Units to be transfused: 1# of Units to HOLD: 2 Performed By: #### U 500.0100, B100.0950 ####ML [address] [address] CHEST-ONE VIEW ONLY - CXR1on 03-09-2018 CHEST-ONE VIEW ONLY - CXR1 [address] [address]Rtrt: MARCOS SHELTON LPhys: JERMAN ZAPATA M.D.: [birth year] Age: 67 Sex: FAcct: [id number] Loc: 3SEASTExam Date: 03/09/18 Status: ADM INRadiology No.: [id number] Number: [id number] # [id number] RAD / CHEST-ONE VIEW ONLY - [id number] RADIOGRAPH PORTABLECLINICAL STATEMENT: Humerus fractureCOMPARISON: Shoulder 03/07/18INDINGS:Cardiomed iastinal silhouette is within normal limits.No pleural effusion, pneumothorax, or consolidation.Acute comminuted fracture of the right humeral head redemonstrated. Cervicalfusion hardware present.IMPRESSION:1. No acute radiographic finding.Professional interpretation provided by [facility]--60.Thank you for this referral.< >Reported By: ROBBY MORTON M.D.Signed In NovaPro By: ROBBY MORTON M.D. << Signature on File>> Reported By: ROBBY MORTON M.D. Signed By: ROBBY MORTON M.D.Tests performed at:[address] [phone] Normal [facility] CONSULTATIONon 03-09-2018 [place], [place] [address]TKKNLU INFORMATION MANAGEMENTCONSULTATIONSaint Joseph East ent: MARCOS SHELTON III, JOHN D D.O.[id number] FStatus: ADM IN 2SWEST 2926-BDATE OF QXCSLAW7803/09/2018PREOPERAT RUSSELL DIAGNOSIS1. Right shoulder proximal humerus fracture.2. Difficulty with ambulation secondary to proximal humerus fracture.HISTORYThe patient is a pleasant 67 year-old female who has suffered a right shoulder proximalhumerus fracture on 03/02/2018. X-rays were taken and she was ultimately seen in my officewhere I did student financial services counselor her on surgical intervention. At that point in time, we were planningto treat this fracture conservatively secondary to its reasonable alignment. Unfortunatelythis patient ambulates with a walker and is unable to ambulate secondary to pain in hershoulder. This is causing issues with her lower back pain, as well. Based on this, she wasadmitted to the hospital because she could not take care of herself and Orthopaedics wasre-consulted. My partner, Dr. Thomas, saw the patient, counseled her on the potential for areverse total shoulder arthroplasty for fracture which would allow her to weight bearthroughthe arm during ambulation. The patient was counseled on the risks and benefits of surgicalintervention and wished to proceed. She was seen by the medical service who was preparingher for surgery. Clearance was also obtained by the anesthesia department.PAST MEDICAL HISTORYSignificant for coronary artery disease, hypertension, Callaway's esophagus, mitral valveregurgitation and DVT.PAST SURGICAL HISTORYHysterectomy, left foot surgery, previous cervical spine fusion.ALLERGIESPenicillin , Zocor, nitrofurantoin and colesevelam.HOME MEDICATIONS1. Albuterol.2. Vitamin D.3. Folic acid.4. Lasix.5. Neurontin.6. [place].7. Synthroid.8. Metoprolol.9. Singulair.10. Prilosec.11. Zofran.12. Ranexa.13. Crestor.14. Aldactone.15. Restoril.PHYSICAL EXAMINATIONOn physical exam, the patient is alert and oriented x3. She answers all questionsappropriately. Focused exam of the patient's right shoulder shows that she is swollen andsomewhat ecchymotic secondary to her fracture. She is neurovascularly intact grosslythroughout the arm as best can be assessed given her fracture. Range of motion of theelbow, wrist and fingers are appropriate and within normal limits. She has appropriatesensation to light touch across all dermatomes and her capillary refill is brisk. Vitalsigns: Today's temperature is 97.7, pulse rate 76, respiratory rate is 22, blood pressureis 126/87.LAB VALUESWhite blood cell count of 6.8, H&H of 9.3 and 27.7, platelet count of 269,000.Coagulation study: PT/INR is 11.7 and 1.0. Blood chemistry has a sodium of 139, potassium3.6, creatinine of 1.3, glucose of 94.RADIOGRAPHSRight shoulder x-rays as well as a CT was preformed and reviewed. They show a proximalhumerus fracture with impaction and significant comminution. There is also deformity at thefracture site with varus and rotational malalignment. No other bony abnormalities are seen.IMPRESSION1. Right shoulder proximal humerus fracture with significant displacement and rotationalmalalignment.2. Failure to ambulate or thrive secondary to fracture.PLANAt this point in time, I have had a lengthy conversation with the patient. I have counseledher on the risks and benefits as well as alternative treatment modalities for her given herlack of independence and lack of ability to ambulate reverse total shoulder for fracture low reasonable option. She has been cleared by the medicine service and we will plan forsurgery later today for reverse total shoulder arthroplasty. She will be admitted to thespital. She will receive appropriate postoperative IV antibiotics and pain medication.Formal consent has been obtained and the patient understands that there is risk that thiswill aggravate her lower back pain and radiculopathy. 03/11/18 1003 LUIS MIGUEL SEE III, D.O.cc: LUIS MIGUEL ROSE III, D.O. << Signature on File>> Reported By: LUIS MIGUEL ROSE III, D.O. Signed By: LUIS MIGUEL ROSE III, D.O.Tests performed at:[address] [phone] Normal [facility] FREE T3on 03-09-2018 T3 free mass conc 2.3 pg/mL Normal 2.0-4.4 [facility] Comment on above: Order Comment: Speci men Drawn Below IV Performed By: #### L 304.0162, L304.0297 ####ML - [facility] K[address]YZC[address] [place] [address] Free T4on 03-09-2018 T4 free mass conc 1.44 ng/dL Normal 0.93-1.7 [facility] Comment on above: Order Comment: Speci men Drawn Below IV Performed By: #### L 304.0162, L304.0297 ####ML - [id number] [place] [address] PACKED CELLSon 03-09-2018 U500.0100 TRANSFUSED PRODUCT: PACKED CELLS COUNT: 1 Normal [facility] Comment on above: Performed By: #### U 500.0100, B100.0950 ####ML - [id number] [place] [address] PTon 03-09-2018 INR Coag RelTime (PPP) 1.0 {INR} Normal [facility] Comment on above: Result Comment: CO UMADIN PROTOCOLSINR values are generated for use in patients on coumadin.INR values stabilize 7 days after the start of coumadin orchanges in coumadin dosage. The usual TARGET/INR range is:INDICATION INR RANGEProphylaxis/treatment of: Venous Thrombosis, Pulmonary Embolism 2.0-3.0Prevention of systemic embolism from: Tissue heart valves 2.0-3.0 Acute myocardial infarction (to prevent systemic embolism) 2.0-3.0 AMI (to prevent recurrent NV) 2.5-3.5Valvular heart disease 2.0-3.0 Atrial fibrillation 2.0-3.0Mechanical prosthetic valves (high risk) 2.5-3.5Bileaflet mechanical valve in aortic position 2.0-3.0Presence of Lupus Anticoagulant orAntiphospholipid Antibodies 2.5-3.5PANIC VALUE: GREATER THAN OR EQUAL TO 4.5 Performed By: #### L 200.1602 ####ML - OQGAZMJMXG877 [place] [address] Prothrombin time (PT) Coag time (PPP) 11.7 s Normal 9.4-12.5 [facility] Comment on above: Performed By: #### L 200.1602 ####ML - JMZMSPJXFI510 [place] [address] SHOULDER 1 VIEWon 03-09-2018 SHOULDER 1 VIEW [facility] [place], [place] [address]Nzsy: MARCOS SHELTON LPhys: LUIS MIGUEL ROSE III, D.O.: [birth year] Age: 67 Sex: FAcct: [id number] Loc: 3SEASTExam Date: 03/09/18 Status: ADM INRadiology No.: [id number] Number: [id number] # [id number] RAD / SHOULDER 1 VIEW RTRight Shoulder single viewCLINICAL STATEMENT: Humerus fractureCOMPARISON: 03/07/18INDINGS:Interval placement of an intramedullary malou and reverse total shoulderarthroplasty. Hardware appears intact. No significant surrounding lucency.Redemonstration of the fracture line within the proximal humerus.No dislocation.Coracoclavicul ar and acromioclavicular relationships maintained.Included thoracic structures are unremarkable.IMPRESSION:1. interval reverse shoulder arthroplasty. Hardware intact.Professional interpretation provided by [facility]60.Thank you for this referral.< >Reported By: ROBBY MORTON M.D.Signed In NovaPro By: ROBBY MORTON M.D. << Signature on File>> Reported By: ROBBY MORTON M.D. Signed By: ROBBY MORTON M.D.Tests performed at:[address] [phone] Normal [facility] ELECTROCARDIOGRAMon 03-08-20 18 ELECTROCARDIOGRAM [place], [place] [address]RRXKVR INFORMATION MANAGEMENTELECTROCARDIOGRA REPORTPatient: CATMARCOSering: JERMAN ZAPATA M.D.[id number]/[birth year] 67 FExam Date: 03/08/18Report #: [id number]: ADM IN 3SEAST 3916-BSINUS RHYTHMNORMAL ECGNO PREVIOUS TRACINGPhysician Business Team Leader: ANUJA BRAR M.D.Ventricular Rate EK /minR-R Interval: 674 msP Wave duration: 113 msQRS duration: 74 msP-R interval: 123 msQ-T interval: 364 msQ-T interval (corrected): 414 msQ-T Dispersion: msP wave axis: 51 degQRS axis: 21 degT axis: 37 degSigned in PYRAMIS03/09/18 1352 ANUJA BRAR M.D.cc: << Signature on File>> Reported By: ANUJA BRAR M.D. Signed By: ANUJA BRAR M.D.Tests performed at:[address] [phone] [facility] BMPon 03-08-2018 Anion gap 3 molar conc 15.6 mmol/L Normal 15- [facility] Comment on above: Performed By: #### L 100.0010 ####ML - [address] [address] Calcium mass conc 9.2 mg/dL Normal 8.8-10.2 [facility] Comment on above: Performed By: #### L 100.0010 ####ML [address] [address] Chloride molar conc 99 mmol/L Normal 98-107 [facility] Comment on above: Performed By: #### L 100.0010 ####ML - [address] [address] Creatinine mass conc 1.33 mg/dL High 0.50-0.90 [facility] Comment on above: Performed By: #### L 100.0010 ####ML - AJCIKAXAYG[address] [place] [address] eGFR if AFR CHERYL 48 Normal [facility] Comment on above: Result Comment: eGFR >= 60 Indicates normal kidney function. * eGFR IS AN ESTIMATE * (AFR CHERYL = ) (non-AFR AM = NON-) MDRD calculation used in the eGFR should not be used to dose medications. For further limitations of the eGFR please refer to the Physician Website or the National Kidney Disease Education Program website (www.nkdep.nih.gov). Performed By: #### L 100.0010 ####ML - [id number] [place] [address] eGFR nonAFR Cheryl 40 Normal [facility] Comment on above: Performed By: #### L 100.0010 ####ML - SHVQBZMRHB[address] [place] [address] Glucose mass conc 94 mg/dL Normal 82-115 [facility] Comment on above: Performed By: #### L 100.0010 ####ML [facility] PEMPHVHKDG[address] [place] [address] Potassium molar conc 3.6 mmol/L Normal 3.5-5.0 [facility] Comment on above: Performed By: #### L 100.0010 ####ML [facility] FSSIQQUPSM[address] [place] [address] Sodium molar conc 139 mmol/L Normal 135-145 [facility] Comment on above: Performed By: #### L 100.0010 ####ML [facility] NVVMCULWVA[address] [place] [address] TCO2 28 mmol/L Normal 22-29 [facility] Comment on above: Performed By: #### L 100.0010 ####[facility] KEAMSESHFI[address] [place] [address] Urea nitrogen mass conc 16 mg/dL Normal 8-23 [facility] Comment on above: Performed By: #### L 100.0010 ####ML [address] [address] CBCon 03-08-2018 Basophils Auto #/vol (Bld) 0.10 x10(3) Normal 0.00-0.10 [facility] Comment on above: Performed By: #### L 200.0010 ####ML [facility] NPAQXVFVJM[address] [place] [address] Basophils/100 WBC Auto (Bld) 0.7 % Normal 0.0-1.0 [facility] Comment on above: Performed By: #### L 200.0010 ####ML [facility] VDCIYPUJVL[address] [place] [address] Eosinophils Auto #/vol (Bld) 0.20 x10(3) Normal 0.00-0.54 [facility] Comment on above: Performed By: #### L 200.0010 ####[facility] [place] [address] Eosinophils/100 WBC Auto (Bld) 2.5 % Normal 0.5-4.9 [facility] Comment on above: Performed By: #### L 200.0010 ####ML [address] [address] Erythrocyte distribution width Auto Ratio (RBC) 15.9 % High 12.5-15.7 [facility] Comment on above: Performed By: #### L 200.0010 ####ML [address] [address] Hematocrit Auto Volume Fraction (Bld) 27.7 % Low 36.0-48.0 [facility] Comment on above: Performed By: #### L 200.0010 ####ML [address] [address] Hemoglobin mass conc (Bld) 9.3 g/dL Low 12.0-16.0 [facility] Comment on above: Performed By: #### L 200.0010 ####[address] [address] Lymphocytes Auto #/vol (Bld) 2.10 x10(3) Normal 1.00-3.50 [facility] Comment on above: Performed By: #### L 200.0010 ####ML [facility] CEGHMWYWAC[address] [place] [address] Lymphocytes/100 WBC Auto (Bld) 30.1 % Normal 16.0-48.0 [facility] Comment on above: Performed By: #### L 200.0010 ####ML [facility] UZYYPWLCLF[address] [place] [address] MCH Auto Entitic mass (RBC) 30.3 pg Normal 28.5-32.9 [facility] Comment on above: Performed By: #### L 200.0010 ####ML [facility] OUQHGCGUUT[address] [place] [address] MCHC Auto mass conc (RBC) 33.6 g/dL Normal 33.0-36.0 [facility] Comment on above: Performed By: #### L 200.0010 ####[address] [address] MCV Auto Entitic volume (RBC) 90.4 fL Normal 80.0-99.0 [facility] Comment on above: Performed By: #### L 200.0010 ####[address] [address] Monocytes Auto #/vol (Bld) 0.50 x10(3) Normal 0.30-0.80 [facility] Comment on above: Performed By: #### L 200.0010 ####[address] [address] Monocytes/100 WBC Auto (Bld) 7.9 % Normal 4.3-11.2 [facility] Comment on above: Performed By: #### L 200.0010 ####[address] [address] Neutrophils Auto #/vol (Bld) 4.00 x10(3) Normal 1.40-6.50 [facility] Comment on above: Performed By: #### L 200.0010 ####[address] [address] Neutrophils/100 WBC Auto (Bld) 58.8 % Normal 45.0-73.0 [facility] Comment on above: Performed By: #### L 200.0010 ####[address] [address] Platelet mean volume Auto Entitic volume (Bld) 7.5 fL Normal 7.5-9.5 [facility] Comment on above: Performed By: #### L 200.0010 ####[address] [address] Platelets Auto #/vol (Bld) 269 X10(3) Normal 150-450 [facility] Comment on above: Performed By: #### L 200.0010 ####[address] [place] [address] RBC Auto #/vol (Bld) 3.06 x10(6) Low 3.30-5.00 [facility] Comment on above: Performed By: #### L 200.0010 ####[facility] YMUAYKEQED612 [place] [address] WBC Auto #/vol (Bld) 6.8 x10(3) Normal 4.5-10.0 [facility] Comment on above: Performed By: #### L 200.0010 ####[facility] MCCZUCCKYF579 [place] [address] CONSULTATIONon 03-08-2018 [address] [place] [address]PVWSUL INFORMATION MANAGEMENTCONSULTATIONPati ent: MARCOS SHELTON CHARLES V D.O.[id number]/ 67 FStatus: ADM IN [facility] 3916-BDATE OF BXBXZCEUGISY34/17/2018REAS ON FOR CONSULTATIONIntractable low back and leg pain. Patient seen, chart reviewed.HISTORY OF PRESENT ILLNESSThis is a 67-year-old female with a long history of low back and bilateral leg pain. Infact the patient had exacerbation while she was in [place] and underwent what appears to beepidural injections with some relief of the pain pattern. Her pain is now exacerbatingsecondary to her falling injuring the right shoulder and in fact she will have a righttotal shoulder tomorrow. In the interim, the discussion was whether she should have anepidural for her pain pattern. It was effective in the past, MRI shows small diskherniations at L2-3. The patient has been seen by a neurologist chronically for thischronic pain pattern which is now exacerbated. She has been on gabapentin therapy but notopioids.Currently the patient is on [place] for the pain pattern, though she has not yet requestedNorco tablet, giving her one now as we are doing the history and physical and examination.The gabapentin will continue as always.PAST MEDICAL HISTORYThe patient's past medical history was reviewed, including laminectomy x2, one from and one from Dr. Zayas. Both were initially effective but then led to chroniclow back and right greater than left leg pain which she is currently having.SOCIAL HISTORYPatient is nonsmoker, nondrinker and is .REVIEW OF SYSTEMSRemainder of the review of systems reviewed with only complaints of pain in her rightshoulder for which she will have a total shoulder replacement tomorrow.PHYSICAL EXAMINATIONThis is a pleasant 67-year-old female who is alert x3. She is able to sit up in bed butslowly given her right shoulder discomfort which is in a sling. She has no myofascial painin the cervical, thoracic or lumbar area. Her cervical range of motion is full. Heart isregular. Lungs are clear. Abdomen is nonacute. She has negative straight leg raising.She has full sensation in the upper and lower extremity. Scars are well-healed.ASSESSMENT1. Lumbosacral radiculitis/exacerbation/M 54.17.2. Postlumbar laminectomy syndrome/chronic/M96.1.TIMOTHY NThe patient will undergo surgery tomorrow. We will give her opioid therapy for benign paintonight and continue the Neurontin therapy. Postoperatively in a week or so if she isdoing well, and the pain continues, we will move forward with epidural injections. Thepatient agrees to the plan.Thank you for this consultation.Sincerely, 03/09/18 1150 BAR CECILIA ARTEAGA D.O.cc: CECILIA CALLAWAY D.O.; SAQIB THOMAS M.D. << Signature on File>> Reported By: CECILIA CALLAWAY D.O. Signed By: CECILIA CALLAWAY D.O.Tests performed at:[address] [phone] Normal [facility] CORTISOL-A.M.on 03-08-2018 CORTISOL-A.M. 4.3 ug/dL Low 6.0-18.4 [facility] Comment on above: Performed By: #### L 304.0260 ####ML - [facility] QAJAIBFBCA[address] [place] [address] TYPE AND SCREENon 03-08-2018 AB SCRN Negative [facility] Comment on above: Order Comment: # of Units to be transfused: 1 Performed By: #### B 100.0700 #### - [address] [address] BLD TYPE Positive [facility] Comment on above: Order Comment: # of Units to be transfused: 1 Performed By: #### B 100.0700 ####ML - [address] [address] BMPon 03-07-2018 Anion gap 3 molar conc 15.4 mmol/L Normal 15-22 [facility] Comment on above: Performed By: #### L 100.0010 ####ML - [address] [address] Calcium mass conc 9.5 mg/dL Normal 8.8-10.2 [facility] Comment on above: Performed By: #### L 100.0010 ####ML - [address] [address] Chloride molar conc 99 mmol/L Normal 98-107 [facility] Comment on above: Performed By: #### L 100.0010 #### - SWBNTXUNOQ[address] [place] [address] Creatinine mass conc 1.77 mg/dL High 0.50-0.90 [facility] Comment on above: Performed By: #### L 100.0010 ####[address] [address] eGFR if AFR CHERYL 35 [facility] Comment on above: Result Comment: eGFR >= 60 Indicates normal kidney function. * eGFR IS AN ESTIMATE * (AFR CHERYL = ) (non-AFR AM = NON-) MDRD calculation used in the eGFR should not be used to dose medications. For further limitations of the eGFR please refer to the Physician Website or the National Kidney Disease Education Program website (www.nkdep.nih.gov). Performed By: #### L 100.0010 ####ML - ITDAWNAEON645[address] [place] [address] eGFR nonAFR Cheryl 29 Normal [facility] Comment on above: Performed By: #### L 100.0010 ####ML [address] [address] Glucose mass conc 97 mg/dL Normal 82-115 [facility] Comment on above: Performed By: #### L 100.0010 ####ML - MVYSMMTCUP[address] [place] [address] Potassium molar conc 3.4 mmol/L Low 3.5-5.0 [facility] Comment on above: Performed By: #### L 100.0010 ####ML [address] [address] Sodium molar conc 140 mmol/L Normal 135-145 [facility] Comment on above: Performed By: #### L 100.0010 ####ML [facility] KYFRYIGHHJ[address] [place] [address] TCO2 29 mmol/L Normal 22-29 [facility] Comment on above: Performed By: #### L 100.0010 ####ML [facility] HQADQRAQZQ[address] [place] [address] Urea nitrogen mass conc 21 mg/dL Normal 8-23 [facility] Comment on above: Performed By: #### L 100.0010 ####ML [facility] TZZKIONPJH[address] [place] [address] CBCon 03-07-2018 Basophils Auto #/vol (Bld) 0.00 x10(3) Normal 0.00-0.10 [facility] Comment on above: Performed By: #### L 200.0010 ####ML [facility] EXUCEMOWJA[address] [place] [address] Basophils/100 WBC Auto (Bld) 0.8 % Normal 0.0-1.0 [facility] Comment on above: Performed By: #### L 200.0010 ####ML - TPUVKZPRPD659[address] [place] [address] Eosinophils Auto #/vol (Bld) 0.20 x10(3) Normal 0.00-0.54 [facility] Comment on above: Performed By: #### L 200.0010 ####ML - [address] [address] Eosinophils/100 WBC Auto (Bld) 3.4 % Normal 0.5-4.9 [facility] Comment on above: Performed By: #### L 200.0010 ####ML - [address] [address] Erythrocyte distribution width Auto Ratio (RBC) 16.3 % High 12.5-15.7 [facility] Comment on above: Performed By: #### L 200.0010 ####ML - [address] [address] Hematocrit Auto Volume Fraction (Bld) 28.4 % Low 36.0-48.0 [facility] Comment on above: Performed By: #### L 200.0010 ####ML - [address] [address] Hemoglobin mass conc (Bld) 9.5 g/dL Low 12.0-16.0 [facility] Comment on above: Performed By: #### L 200.0010 ####ML - [address] [address] Lymphocytes Auto #/vol (Bld) 1.60 x10(3) Normal 1.00-3.50 [facility] Comment on above: Performed By: #### L 200.0010 ####ML - UOSUODCKTV164[address] [place] [address] Lymphocytes/100 WBC Auto (Bld) 29.6 % Normal 16.0-48.0 [facility] Comment on above: Performed By: #### L 200.0010 ####ML - JKFTJZAHBN[address] [place] [address] MCH Auto Entitic mass (RBC) 30.3 pg Normal 28.5-32.9 [facility] Comment on above: Performed By: #### L 200.0010 ####ML - LYPTWVDUTH[address] [place] [address] MCHC Auto mass conc (RBC) 33.4 g/dL Normal 33.0-36.0 [facility] Comment on above: Performed By: #### L 200.0010 ####ML [facility] GHTTZWWWMT[address] [place] [address] MCV Auto Entitic volume (RBC) 90.6 fL Normal 80.0-99.0 [facility] Comment on above: Performed By: #### L 200.0010 ####ML [facility] QLHSBQZJLV[address] [place] [address] Monocytes Auto #/vol (Bld) 0.40 x10(3) Normal 0.30-0.80 [facility] Comment on above: Performed By: #### L 200.0010 ####ML [facility] ENFFGDBTPD[address] [place] [address] Monocytes/100 WBC Auto (Bld) 8.4 % Normal 4.3-11.2 [facility] Comment on above: Performed By: #### L 200.0010 ####ML [facility] YOSCWBFOHK[address] [place] [address] Neutrophils Auto #/vol (Bld) 3.10 x10(3) Normal 1.40-6.50 [facility] Comment on above: Performed By: #### L 200.0010 ####ML [facility] PGWASDXJQH[address] [place] [address] Neutrophils/100 WBC Auto (Bld) 57.8 % Normal 45.0-73.0 [facility] Comment on above: Performed By: #### L 200.0010 ####ML [facility] ZNEEJHNYCM[address] [place] [address] Platelet mean volume Auto Entitic volume (Bld) 7.2 fL Low 7.5-9.5 [facility] Comment on above: Performed By: #### L 200.0010 ####ML [facility] WMOSJPDLYE[address] [place] [address] Platelets Auto #/vol (Bld) 258 X10(3) Normal 150-450 [facility] Comment on above: Performed By: #### L 200.0010 ####ML - NGLKYIQTYC955 [place] [address] RBC Auto #/vol (Bld) 3.14 x10(6) Low 3.30-5.00 [facility] Comment on above: Performed By: #### L 200.0010 ####ML - [address] [address] WBC Auto #/vol (Bld) 5.4 x10(3) Normal 4.5-10.0 [facility] Comment on above: Performed By: #### L 200.0010 ####ML - ZIRUOABXCK816 [place] [address] CORTISOL-A.M.on 03-07-2018 CORTISOL-A.M. 4.6 ug/dL Low 6.0-18.4 [facility] Comment on above: Performed By: #### L 304.0260 ####[address] [address] MRI LUMBAR SPINE WOUT CONTRA STon 03-07-2018 MRI LUMBAR SPINE WOUT CONTRAST [address] [address]Wpes: MARCOS SHELTON LPhys: MAGUI BARBOSA M.D.: [birth year] Age: 67 Sex: FAcct: [id number] Loc: 2SEASTExam Date: 03/07/18 Status: ADM INRadiology No.: [id number] Number: [id number] # [id number] MRI / MRI LUMBAR SPINE WOUT CONTRASTEXAMINATION: MRI lumbar spine without contrastCLINICAL INDICATION: Reported foot drop then hearing retention. Clinicalconcern for cauda equina syndrome.COMPARISON: Plain film lumbar spine exam 03/05/2018. GreaterFINDINGS: Multiecho imaging of the lumbar spine obtained without contrast andsagittal and axial planes. Patient is status post laminectomy and instrumentedposterior fusion involving L3-L5. Disc prosthesis has been placed at the Z91lksei. Grade one anterolisthesis of L3 on L4 in relation to L2 and L5 isdetected.Signal intensity demonstrates bone marrow edema, disc space desiccation anddegeneration and a lobular disc herniation centrally and to the RIGHTaffecting the L2-3 disc space. The thecal sac at this level measures 1 cmanterior to posterior. Lateral recesses are poorly visualized due to artifactfrom the adjacent L3 pedicle screws.There is a normal appearance to the T12-L1 and L1-2 disc space. L4-5 and L5-S1disc space display desiccation without additional disc herniation or bulge.The L3-4 displays has undergone successful placement of a prosthetic device.There is no evidence for osteomyelitis, discitis, or soft tissue abnormality.There is a prominent extrarenal pelvis on the RIGHT, no additionalretroperitoneal pathology is seen. Signal intensity within the sacrum isunremarkable.IMPRESSION: 1. Moderate to advanced degenerative disc disease and posterior discherniation affecting the L2-3 disc, observed just above site of posteriorlumbar fusion involving L3-L5. The lateral recesses at L2-3 are poorlyvisualized due to artifact from adjacent L3 pedicle screws. There is no grosscentral spinal stenosis, however effacement of the lateral recesses could beobscured.2. Anterolisthesis of L3 and L4 in relation to L2 superiorly, and O6lahctbtlpb.3. No infiltrative bony lesion.Professional interpretation provided by [facility] [address].Thank you for this referral.< >Reported By: DOUGIE EVANS D.O.Signed In NovaPro By: DOUGIE EVANS D.O. << Signature on File>> Reported By: DOUGIE EVANS D.O. Signed By: DOUGIE EVANS D.O.Tests performed at:[address] [phone] Normal [facility] SHOULDER MIN 2 VIEWon 2017 SHOULDER MIN [address] [address]Cfbz: MARCOS SHELTONs: SAQIB THOMAS M.D.: [birth year] Age: 67 Sex: FAcct: [id number] Loc: 2SEASTExam Date: 03/07/18 Status: ADM INRadiology No.: [id number] Number: [id number] # [id number] RAD / SHOULDER MIN 2 VIEW RTEXAM: Right shoulder 3 views 03/07/2018INDICATION: Right humerus fracture followupCOMPARISON: CT right humerus 03/02/2018, right shoulder radiograph 03/02/2018FINDINGS: There is redemonstration of moderately comminuted and impactedfracture of the right humerus surgical neck. The glenohumeral andacromioclavicular relationships appear intact. There is no significant healingidentified.IMPRESSI ON: Redemonstration of the proximal right humerus fracture, as above.Professional interpretation provided by [facility]-PC-76.Thank you for this referral.< >Reported By: SARA ORTIZ M.D.Signed In NovaPro By: SARA ORTIZ M.D. << Signature on File>> Reported By: SARA ORTIZ M.D. Signed By: SARA ORTIZ M.D.Tests performed at:[address] [phone] Normal [facility] Anion gap 3 molar conc 16.8 mmol/L Normal - [facility] Comment on above: Performed By: #### L 304.0240, L304.0140, L100.0010, L304.0200 ####ML [facility] PIGECACWTZ560 [place] [address] Calcium mass conc 8.7 mg/dL Low 8.8-10.2 [facility] Comment on above: Performed By: #### L 304.0240, L304.0140, L100.0010, L304.0200 ####ML [facility] DBBMZSFHPU068 [place] [address] Chloride molar conc 97 mmol/L Low 98-107 [facility] Comment on above: Performed By: #### L 304.0240, L304.0140, L100.0010, L304.0200 ####ML [facility] KHOVYERGEM102 [place] [address] Creatinine mass conc 1.98 mg/dL High 0.50-0.90 [facility] Comment on above: Performed By: #### L 304.0240, L304.0140, L100.0010, L304.0200 ####[facility] BITOHNBEQY285 [place] [address] eGFR if AFR CHERYL 31 [facility] Comment on above: Result Comment: eGFR >= 60 Indicates normal kidney function. * eGFR IS AN ESTIMATE * (AFR CHERYL = ) (non-AFR AM = NON-) MDRD calculation used in the eGFR should not be used to dose medications. For further limitations of the eGFR please refer to the Physician Website or the National Kidney Disease Education Program website (www.nkdep.nih.gov). Performed By: #### L 304.0240, L304.0140, L100.0010, L304.0200 ####[facility] HDKEDQWIJP208 [place] [address] eGFR nonAFR Cheryl 25 [facility] Comment on above: Performed By: #### L 304.0240, L304.0140, L100.0010, L304.0200 ####[facility] EOGZQWPCKK606 [place] [address] Glucose mass conc 86 mg/dL Normal 82-115 [facility] Comment on above: Performed By: #### L 304.0240, L304.0140, L100.0010, L304.0200 ####[facility] HMTVWCJZWR468 [place] [address] Potassium molar conc 3.8 mmol/L Normal 3.5-5.0 [facility] Comment on above: Performed By: #### L 304.0240, L304.0140, L100.0010, L304.0200 ####[facility] YSNJSDGZLW213 [place] [address] Sodium molar conc 135 mmol/L Normal 135-145 [facility] Comment on above: Performed By: #### L 304.0240, L304.0140, L100.0010, L304.0200 ####[facility] HQYLFTRDID430 [place] [address] TCO2 25 mmol/L Normal 22-29 [facility] Comment on above: Performed By: #### L 304.0240, L304.0140, L100.0010, L304.0200 ####[facility] [address] [place] [address] Urea nitrogen mass conc 25 mg/dL High 8-23 [facility] Comment on above: Performed By: #### L 304.0240, L304.0140, L100.0010, L304.0200 ####[facility] OFHQLUSIRH[address] [place] [address] CBCon 03-06-2018 Basophils Auto #/vol (Bld) 0.00 x10(3) Normal 0.00-0.10 [facility] Comment on above: Performed By: #### L 200.0010 ####[address] [address] Basophils/100 WBC Auto (Bld) 0.6 % Normal 0.0-1.0 [facility] Comment on above: Performed By: #### L 200.0010 ####[facility] IBIOQYQNDS[address] [place] [address] Eosinophils Auto #/vol (Bld) 0.20 x10(3) Normal 0.00-0.54 [facility] Comment on above: Performed By: #### L 200.0010 ####[address] [address] Eosinophils/100 WBC Auto (Bld) 3.3 % Normal 0.5-4.9 [facility] Comment on above: Performed By: #### L 200.0010 ####[address] [address] Erythrocyte distribution width Auto Ratio (RBC) 16.0 % High 12.5-15.7 [facility] Comment on above: Performed By: #### L 200.0010 ####[facility] [place] [address] Hematocrit Auto Volume Fraction (Bld) 27.6 % Low 36.0-48.0 [facility] Comment on above: Performed By: #### L 200.0010 ####ML [address] [address] Hemoglobin mass conc (Bld) 9.3 g/dL Low 12.0-16.0 [facility] Comment on above: Performed By: #### L 200.0010 ####ML [address] [address] Lymphocytes Auto #/vol (Bld) 1.80 x10(3) Normal 1.00-3.50 [facility] Comment on above: Performed By: #### L 200.0010 ####[address] [address] Lymphocytes/100 WBC Auto (Bld) 26.4 % Normal 16.0-48.0 [facility] Comment on above: Performed By: #### L 200.0010 ####[address] [address] MCH Auto Entitic mass (RBC) 30.7 pg Normal 28.5-32.9 [facility] Comment on above: Performed By: #### L 200.0010 ####[address] [address] MCHC Auto mass conc (RBC) 33.8 g/dL Normal 33.0-36.0 [facility] Comment on above: Performed By: #### L 200.0010 ####ML [address] [address] MCV Auto Entitic volume (RBC) 90.7 fL Normal 80.0-99.0 [facility] Comment on above: Performed By: #### L 200.0010 ####[address] [address] Monocytes Auto #/vol (Bld) 0.50 x10(3) Normal 0.30-0.80 [facility] Comment on above: Performed By: #### L 200.0010 ####ML [facility] FNPGGFCJPH[address] [place] [address] Monocytes/100 WBC Auto (Bld) 8.0 % Normal 4.3-11.2 [facility] Comment on above: Performed By: #### L 200.0010 ####ML [address] [address] Neutrophils Auto #/vol (Bld) 4.10 x10(3) Normal 1.40-6.50 [facility] Comment on above: Performed By: #### L 200.0010 ####ML [address] [address] Neutrophils/100 WBC Auto (Bld) 61.7 % Normal 45.0-73.0 [facility] Comment on above: Performed By: #### L 200.0010 ####ML [address] [address] Platelet mean volume Auto Entitic volume (Bld) 7.2 fL Low 7.5-9.5 [facility] Comment on above: Performed By: #### L 200.0010 ####ML [address] [address] Platelets Auto #/vol (Bld) 218 X10(3) Normal 150-450 [facility] Comment on above: Performed By: #### L 200.0010 ####ML [address] [address] RBC Auto #/vol (Bld) 3.05 x10(6) Low 3.30-5.00 [facility] Comment on above: Performed By: #### L 200.0010 ####ML - COFCNDRYOW[address] [place] [address] WBC Auto #/vol (Bld) 6.7 x10(3) Normal 4.5-10.0 [facility] Comment on above: Performed By: #### L 200.0010 ####ML [address] [place] [address] CORTISOL-A.M.on 03-06-2018 CORTISOL-A.M. 3.8 ug/dL Low 6.0-18.4 [facility] Comment on above: Performed By: #### L 304.0260 ####ML - EKIUZJIDKG[address] [place] [address] DRUG SCREENon 03-06-2018 AMPHETAMINE Negative Normal NEGATIVE [facility] Comment on above: Performed By: #### L 100.0708 ####ML - XMNQLCGAGF852 [place] [address] BARBITUATES Negative Normal NEGATIVE [facility] Comment on above: Performed By: #### L 100.0708 ####ML - IPHMBZCDPC478 [place] [address] BENZODIAZEPINE Negative Normal NEGATIVE [facility] Comment on above: Performed By: #### L 100.0708 ####ML - ZVRBZAFMXM[address] [place] [address] CANNABINOID Negative Normal NEGATIVE [facility] Comment on above: Performed By: #### L 100.0708 ####ML - TEOJEUWSFZ592 [place] [address] Cocaine Ql (U) Negative Normal NEGATIVE [facility] Comment on above: Performed By: #### L 100.0708 ####ML - QLQCIGAFGA371 [place] [address] Methadone Ql (U) Negative Normal NEGATIVE [facility] Comment on above: Performed By: #### L 100.0708 ####ML - AAIIQKAANR121 [place] [address] Opiates Ql (U) Positive Invalid Interpretation Code NEGATIVE [facility] Comment on above: Result Comment: THIS RESULT IS OBTAINED BY A SCREENING METHOD. IFCONFIRMATION IS DESIRED, PLEASE CONTACT THE LAB AT EXT.4934HMKYIN 7 DAYS AND ORDER A URINE CONFIRMATION TEST ANADD-ON TEST. Performed By: #### L 100.0708 ####ML - EIXQXAYSIC[address] [place] [address] OXYCODONE Positive Invalid Interpretation Code NEGATIVE [facility] Comment on above: Result Comment: THIS RESULT IS OBTAINED BY A SCREENING METHOD. IFCONFIRMATION IS DESIRED, PLEASE CONTACT THE LAB AT EXT.2731WITHIN 7 DAYS AND ORDER A URINE CONFIRMATION TEST ANADD-ON TEST. Performed By: #### L 100.0708 #### - XPYKBVBMNH083 [place] [address] Phencyclidine Ql (U) Negative Normal NEGATIVE [facility] Comment on above: Result Comment: COMM ENT: SPECIMEN TYPE - URINE. Unconfirmed screening results for the Drug Screen Panel should not be used for non-medical purposes.CUTOFFS: Amphetamine cutoff concentration: 1000 ng/mL Cocaine cutoff concentration: 300 ng/mL Opiates cutoff concentration: 300 ng/mL Benzodiazepine cutoff concentration: 200 ng/mL Barbituate cutoff concentration: 200 ng/mL Cannabinoid cutoff concentration: 50 ng/mL Propoxyphene cutoff concentration: 300 ng/mL Methadone cutoff concentration: 300 ng/mL Oxycodone cutoff concentration: 100 ng/mL Phencyclidine cutoff concentration: 25 ng/mL Kristina Method Performed By: #### L 100.0708 ####ML - [facility] [place] [address] Protein mass conc Negative Normal NEGATIVE [facility] Comment on above: Performed By: #### L 100.0708 ####ML - [facility] [place] [address] EMERGENCY DEPARTMENT REPORTo n 03-06-2018 EMERGENCY DEPARTMENT REPORT [place], [place] [address]QAKOFR INFORMATION MANAGEMENTEMERGENCY DEPARTMENT REPORTPatient: MARCOS SHELTON JEFFREY M.D.[id number]/ 67 FStatus: ADM IN [facility] 2910-ADate of Service: 03/05/18[facility] COMPLAINTLeg weakness, inability to care for self.HISTORY OF PRESENT ILLNESSThis is a 67-year-old female who fell 3 days ago. Had a comminuted fracture of the surgicalneck of the right humerus. She was seen here and has already been seen by Dr. Thomas. Thepatient states she has severe chronic back problems and has required usp placementa couple times in the past for rehab. She states she is not able to be managed at home.She cannot use her walker. She cannot get around in her camper where she is living thissummer in her wheelchair and her is unable to care for her. The patient statesthat she when she fell 3 days ago she fell backwards and did bump her head. Did hit herlower back as well. She has no new numbness in the legs. She has history of CKD,hypertension, coronary disease.SOCIAL HISTORYThe patient's social history is . [place] and livesin a camper in both places along with her . No alcohol, tobacco use.PHYSICAL EXAMINATIONPhysical exam finds a 67-year-old female who has got normal vital signs here. She is A&Otimes 3. No signs of craniofacial trauma. She has got moderate pain on palpation of theright shoulder and mild puffiness there. No clavicular pain. Lung carroll were clear on myexam. She was O2 sat of 98% on room air. Cardiac tones are regular without a murmur. Noabdominal tenderness. She had diffuse thoracolumbar pain to palpation without any bruisingand motor tone was 3/4 and symmetric in the lower extremities but she complained of a lotof weakness in her legs. States that this is a chronic problem for her. DTRs 08/26 andsymmetric in nature. No sensory deficits. No edema.EMERGENCY DEPARTMENT COURSEWorkup here: I got labs, plain films and CT scan of the head to make sure there is nothingelse going on. Her hemoglobin was 9.8, white count 7500. The patient's BUN and bsgdrmjyqo28 and 2.05. Sodium 133, mild elevation of her liver enzymes just very mildly so. A CTscan of the head was negative. Thoracic and lumbar spine x-rays were normal.IMPRESSION1. Right humerus fracture.2. Failure to thrive.3. CKD.PLANThe patient is requesting admission so she could be placed to rehab or usp forhelp. She did not think she could manage this at home. I discussed the case with thehospitalist who is admitting for that purpose.Admit 03/08/18 0128 BRIEN STEARNS M.D.cc: BRIEN STEARNS M.D.; BELL MAHER M.D. << Signature on File>> Reported By: BRIEN STEARNS M.D. Signed By: BRIEN STEARNS M.D.Tests performed at:[address] [phone] Normal [facility] FERRITINon 03-06-2018 FERRITIN 245.1 ng/mL High 13-150 [facility] Comment on above: Performed By: #### L 304.0240, L304.0140, L100.0010, L304.0200 ####ML - [facility] VKGAMPASGU105 [place] [address] HISTORY AND PHYSICALon 03-06 HISTORY AND PHYSICAL [place], [place] [address]XMPXUJ INFORMATION MANAGEMENTHISTORY AND PHYSICALPatient: MARCOS SHELTON PAUL A M.D.[id number]/ 67 FStatus: ADM IN [facility] 2910-ADATE OF TQSCZYGVU75/15/2018HISTORY OF PRESENT ILLNESSThis is a 67-year-old female, presents to the emergency room with a chief complaint ofgeneralized weakness. The patient just had a fall 3 days ago at home and sustained a righthumeral fracture which was treated in the emergency room. Since discharge, she states sheis having difficulty ambulating with her walker. Due to the right humeral fracture, shecan no longer ambulate. She complains of her legs being very weak. She states that shesaw her back surgeon in [place] and was told she needed to have another back surgery. Sherecently stopped her prednisone 1 month ago. She complains of peripheral edema over thepast 2 months. She states she is currently being worked up by her primary care physicianand has had an echocardiogram as well as lower extremity Dopplers at [facility] in [place].She denies any chest pain. She complains of shortness of breath but states it is chronicfor her. She complains of back pain and right shoulder pain. Denies any chest pain,nausea, vomiting, melena, dysuria, hematuria.PAST MEDICAL HISTORYCoronary artery disease, hypertension, Callaway's esophagus, mitral valve regurgitation,hypertension , DVT.PAST SURGICAL HISTORYHysterectomy, left foot surgery, back surgery.ALLERGIESPenicilli n, nitrofurantoin, Zocor, colesevelam.HOME MEDICATIONS1. Albuterol.2. Vitamin D3 50,000 units q. week.3. Folic acid daily.4. Lasix 40 mg b.i.d.5. Neurontin 300 mg t.i.d.6. [place] 5 q.4-6h. p.r.n.7. Synthroid 125 mcg daily.8. Metoprolol XL 25 mg b.i.d.9. Singulair h.s.10. Prilosec 40 mg daily.11. Zofran p.r.n.12. Ranexa 1000 mg b.i.d.13. Crestor 40 mg h.s.14. Aldactone 12.5 mg daily.15. Restoril 30 mg h.s. p.r.n.PHYSICAL EXAMINATIONAfebrile. Vital signs: Stable. Blood pressure 127/60. HEENT: Normocephalic,atraumatic. Sclerae clear. Pharynx clear. Neck: Supple. No JVD. Lungs: Decreasedbreath sounds in the bases. Heart: Regular rate and rhythm with a 3/6 systolic murmur.Abdomen is soft, nontender, nondistended. Extremities: 4+ pitting edema. Neurologicexam: Strength appears 4+/5 in the lower extremities, full in the upper extremities.Cranial nerves II-XII intact. No focal deficits.White count 7.5, hemoglobin 9.8, platelets 218,000, MCV 91. Sodium 133, potassium 3.9,chloride 95, bicarb 29, BUN 26, creatinine 2.05, glucose 115. Liver function tests show anAST of 42, ALT of 43, alk phos 143. Head CT: Negative. X-ray of the lumbar spine showspostop changes. No acute process. X-ray of the thoracic spine shows no acute fracture.ASSESSMENT1. Right humeral fracture.2. Anemia.3. Acute kidney injury.4. Hypertension.5. Hyponatremia.6. Questionable history of adrenal insufficiency.7. Peripheral edema.PLAN1. Clear liquid diet.2. Saline lock.3. Consult orthopedic surgery.4. IV Lasix.5. Right arm sling.6. Iron studies, B12.7. Stool for occult blood.8. UA, urine drug screen.9. DVT prophylaxis.10. Obtain old records including echo and venous Dopplers.11. Consult PT/OT.12. Consult social worker psychiatric.13. Bladder scan. 03/07/18 0106 MAMADOU HANSEN M.D.cc: MAMADOU HANSEN M.D. << Signature on File>> Reported By: MAMADOU HANSEN M.D. Signed By: MAMADOU HANSEN M.D.Tests performed at:[address] [phone] Normal [facility] IRON & TIBCon 03-06-2018 % FE. SAT. 14 % Normal 10-32 [facility] Comment on above: Performed By: #### L 100.0400 ####[facility] LPTDPUJVAB[address] [place] [address] Iron mass conc 29 ug/dL Low 37-145 [facility] Comment on above: Performed By: #### L 100.0400 ####[facility] GUGVKKPJHX[address] [place] [address] TIBC 207 mg/dL Low 269-535 [facility] Comment on above: Performed By: #### L 100.0400 ####[facility] BCOCTOOVFC[address] [place] [address] Transferrin mass conc 148 mg/dL Low 192-382 [facility] Comment on above: Performed By: #### L 100.0400 ####[facility] YIDLVIQSBQ[address] [place] [address] TSHon 03-06-2018 Thyrotropin Qn 0.02 uIU/mL Low 0.45-4.50 [facility] Comment on above: Performed By: #### L 304.0240, L304.0140, L100.0010, L304.0200 ####ML [facility] OYOKRKMMNE[address] [place] [address] URINALYSISon 03-06-2018 Bilirubin Ql (U) Negative Normal NEGATIVE [facility] Comment on above: Order Comment: Urine Specimen Source+ CLEAN CATCH Performed By: #### L 200.3000, L200.3190 ####ML - [id number] [place] [facility] [place] [address] Color Nom (U) YELLOW Normal YELLOW [facility] Comment on above: Order Comment: Urine Specimen Source+ CLEAN CATCH Performed By: #### L 200.3000, L200.3190 ####ML - [id number] [place] [facility] [place] [address] Glucose Ql (U) Negative Normal NEGATIVE [facility] Comment on above: Order Comment: Urine Specimen Source+ CLEAN CATCH Performed By: #### L 200.3000, L200.3190 ####ML - [id number] [place] [facility] [place] [address] Hemoglobin Test strip Ql (U) Negative Normal NEGATIVE [facility] Comment on above: Order Comment: Urine Specimen Source+ CLEAN CATCH Performed By: #### L 200.2999, L200.3190 ####ML - [id number] [place] [facility] [place] [address] Leukocyte esterase Test strip Ql (U) SMALL Normal NEGATIVE [facility] Comment on above: Order Comment: Urine Specimen Source+ CLEAN CATCH Performed By: #### L 200.3000, L200.3190 ####ML - [id number] [place] [facility] [place] [address] Nitrite Test strip Ql (U) Negative Normal NEGATIVE [facility] Comment on above: Order Comment: Urine Specimen Source+ CLEAN CATCH Performed By: #### L 200.3000, L200.3190 ####ML - [facility] IWYJLUEUDA581 [place] [facility] [place] [address] pH Test strip (U) 5.5 [pH] Normal 5.0-8.0 [facility] Comment on above: Order Comment: Urine Specimen Source+ CLEAN CATCH Performed By: #### L 200.3000, L200.3190 ####ML - [facility] IWFTZRIYBX593 [place] [facility] [place] [address] Protein Test strip Ql (U) Negative Normal NEGATIVE [facility] Comment on above: Order Comment: Urine Specimen Source+ CLEAN CATCH Performed By: #### L 200.3000, L200.3190 ####ML - [facility] ULULGHHUFO[address] [place] [address] URINE APPEARANC CLEAR Normal CLEAR [facility] Comment on above: Order Comment: Urine Specimen Source+ CLEAN CATCH Performed By: #### L 200.3000, L200.3190 ####ML - [facility] KGLUMTQUCL606 [place] [address] URINE KETONE Negative Normal NEGATIVE [facility] Comment on above: Order Comment: Urine Specimen Source+ CLEAN CATCH Performed By: #### L 200.3000, L200.3190 ####ML - [facility] PMRYFSSNBX[address] [place] [address] URINE SPECIFIC 1.020 Normal 1.001-1.035 [facility] Comment on above: Order Comment: Urine Specimen Source+ CLEAN CATCH Performed By: #### L 200.3000, L200.3190 ####ML - [facility] QDZMXOPQZR[address] [place] [address] URINE UROBILINO 1.0 EU/DL Normal 0.2-1.0 [facility] Comment on above: Order Comment: Urine Specimen Source+ CLEAN CATCH Performed By: #### L 200.3000, L200.3190 ####ML - [facility] SVTCKKWIGO[address] [place] [address] URINE MICROSCOPon 03-06-2018 Bacteria LM.HPF #/area (Urine sed) 1+ Normal NEGATIVE [facility] Comment on above: Order Comment: Urine Specimen Source+ CLEAN CATCH Performed By: #### L 200.3000, L200.3190 ####ML - [facility] [id number] [place] [address] HYALINE 7-12 Normal NEGATIVE [facility] Comment on above: Order Comment: Urine Specimen Source+ CLEAN CATCH Performed By: #### L 200.3000, L200.3190 ####ML - [facility] NYGZCVQHBA989 [place] [address] Mucus LM Ql (Urine sed) TR Normal NEGATIVE [facility] Comment on above: Order Comment: Urine Specimen Source+ CLEAN CATCH Performed By: #### L 200.3000, L200.3190 ####ML - [facility] AERZDZHLFZ[address] [place] [address] RBC Test strip #/vol (U) 1-3 Normal 0-2 [facility] Comment on above: Order Comment: Urine Specimen Source+ CLEAN CATCH Performed By: #### L 200.3000, L200.3190 ####ML - AEPKIBHVKC792 [place] [address] SQUAMOUS MANY Normal NEGATIVE [facility] Comment on above: Order Comment: Urine Specimen Source+ CLEAN CATCH Performed By: #### L 200.3000, L200.3190 ####ML - EFYQSGTFNZ[address] [place] [address] WBC #/vol (U) 6-10 Normal 0-5 [facility] Comment on above: Order Comment: Urine Specimen Source+ CLEAN CATCH Performed By: #### L 200.3000, L200.3190 ####ML - PUMFNMYSHQ[address] [place] [address] VIT. B12on 03-06-2018 Cobalamin (Vitamin B12) mass conc pg/mL Normal 232-1245 [facility] Comment on above: Performed By: #### L 304.0240, L304.0140, L100.0010, L304.0200 ####ML [facility] VNUXYKMKHA[address] [place] [address] BMPon 03-05-2018 Anion gap 3 molar conc 12.9 mmol/L Low 15-22 [facility] Comment on above: Performed By: #### L 100.0010, L100.0030 ####ML - EJCJTBRNXJ[address] [place] [address] Calcium mass conc 8.8 mg/dL Normal 8.8-10.2 [facility] Comment on above: Performed By: #### L 100.0010, L100.0030 ####ML - ZNZMPHUJCX[address] [place] [address] Chloride molar conc 95 mmol/L Low 98-107 [facility] Comment on above: Performed By: #### L 100.0010, L100.0030 ####ML - LVAWSAQREV[address] [place] [address] Creatinine mass conc 2.05 mg/dL High 0.50-0.90 [facility] Comment on above: Performed By: #### L 100.0010, L100.0030 ####[address] [address] eGFR if AFR CHERYL 29 [facility] Comment on above: Result Comment: eGFR >= 60 Indicates normal kidney function. * eGFR IS AN ESTIMATE * (AFR CHERYL = ) (non-AFR AM = NON-) MDRD calculation used in the eGFR should not be used to dose medications. For further limitations of the eGFR please refer to the Physician Website or the National Kidney Disease Education Program website (www.nkdep.nih.gov). Performed By: #### L 100.0010, L100.0030 ####[address] [address] eGFR nonAFR Cheryl 24 [facility] Comment on above: Performed By: #### L 100.0010, L100.0030 ####[address] [address] Glucose mass conc 115 mg/dL Normal 82-115 [facility] Comment on above: Performed By: #### L 100.0010, L100.0030 ####[facility] IFOMUCEIKG[address] [place] [address] Potassium molar conc 3.9 mmol/L Normal 3.5-5.0 [facility] Comment on above: Performed By: #### L 100.0010, L100.0030 ####[facility] [place] [address] Sodium molar conc 133 mmol/L Low 135-145 [facility] Comment on above: Performed By: #### L 100.0010, L100.0030 ####[address] [address] TCO2 29 mmol/L Normal 22-29 [facility] Comment on above: Performed By: #### L 100.0010, L100.0030 ####[address] [address] Urea nitrogen mass conc 26 mg/dL High 8-23 [facility] Comment on above: Performed By: #### L 100.0010, L100.0030 ####ML [address] [address] CBCon 03-05-2018 Basophils Auto #/vol (Bld) 0.00 x10(3) Normal 0.00-0.10 [facility] Comment on above: Performed By: #### L 200.0010 ####[address] [address] Basophils/100 WBC Auto (Bld) 0.7 % Normal 0.0-1.0 [facility] Comment on above: Performed By: #### L 200.0010 ####[address] [address] Eosinophils Auto #/vol (Bld) 0.20 x10(3) Normal 0.00-0.54 [facility] Comment on above: Performed By: #### L 200.0010 ####[address] [address] Eosinophils/100 WBC Auto (Bld) 2.2 % Normal 0.5-4.9 [facility] Comment on above: Performed By: #### L 200.0010 ####ML [address] [address] Erythrocyte distribution width Auto Ratio (RBC) 15.6 % Normal 12.5-15.7 [facility] Comment on above: Performed By: #### L 200.0010 ####[address] [address] Hematocrit Auto Volume Fraction (Bld) 29.5 % Low 36.0-48.0 [facility] Comment on above: Performed By: #### L 200.0010 ####[address] [address] Hemoglobin mass conc (Bld) 9.8 g/dL Low 12.0-16.0 [facility] Comment on above: Performed By: #### L 200.0010 ####[address] [address] Lymphocytes Auto #/vol (Bld) 1.50 x10(3) Normal 1.00-3.50 [facility] Comment on above: Performed By: #### L 200.0010 ####[address] [address] Lymphocytes/100 WBC Auto (Bld) 20.1 % Normal 16.0-48.0 [facility] Comment on above: Performed By: #### L 200.0010 ####[address] [address] MCH Auto Entitic mass (RBC) 30.2 pg Normal 28.5-32.9 [facility] Comment on above: Performed By: #### L 200.0010 ####[address] [address] MCHC Auto mass conc (RBC) 33.2 g/dL Normal 33.0-36.0 [facility] Comment on above: Performed By: #### L 200.0010 ####[address] [address] MCV Auto Entitic volume (RBC) 91.0 fL Normal 80.0-99.0 [facility] Comment on above: Performed By: #### L 200.0010 ####[address] [address] Monocytes Auto #/vol (Bld) 0.70 x10(3) Normal 0.30-0.80 [facility] Comment on above: Performed By: #### L 200.0010 ####[address] [address] Monocytes/100 WBC Auto (Bld) 9.2 % Normal 4.3-11.2 [facility] Comment on above: Performed By: #### L 200.0010 ####ML - QULDYJSQBQ590 [place] [address] Neutrophils Auto #/vol (Bld) 5.10 x10(3) Normal 1.40-6.50 [facility] Comment on above: Performed By: #### L 200.0010 ####ML - [facility] [place] [address] Neutrophils/100 WBC Auto (Bld) 67.8 % Normal 45.0-73.0 [facility] Comment on above: Performed By: #### L 200.0010 ####ML [address] [address] Platelet mean volume Auto Entitic volume (Bld) 7.3 fL Low 7.5-9.5 [facility] Comment on above: Performed By: #### L 200.0010 ####ML [address] [address] Platelets Auto #/vol (Bld) 218 X10(3) Normal 150-450 [facility] Comment on above: Performed By: #### L 200.0010 ####ML - [address] [address] RBC Auto #/vol (Bld) 3.24 x10(6) Low 3.30-5.00 [facility] Comment on above: Performed By: #### L 200.0010 ####ML [address] [address] WBC Auto #/vol (Bld) 7.5 x10(3) Normal 4.5-10.0 [facility] Comment on above: Performed By: #### L 200.0010 ####ML [address] [address] CK & CK-MBon 03-05-2018 CK enzyme act/vol 120 U/L Normal 26-192 [facility] Comment on above: Result Comment: Rela tive Index is not calculated as it is onlyapplicable to CK values greater than or equal to 192 IU/L. NO RELATIVE INDEX PERFORMED Performed By: #### L 301.0090, L301.0460, L301.0120 ####ML - [facility] ZBOZURIEGS573 [place] [address] CK.MB mass conc 2.8 ng/mL Normal 1.0-5.34 [facility] Comment on above: Performed By: #### L 301.0090, L301.0460, L301.0120 ####ML - [facility] GZKDMARGRE905 [place] [address] CT BRAIN WITHOUT CONTRAST- C TBon 03-05-2018 CT BRAIN WITHOUT CONTRAST- CTB [address] [address]Npzo: MARCOS SHELTON LPhys: BRIEN STEARNS M.D.: [birth year] Age: 67 Sex: FAcct: [id number] Loc: EDExam Date: 03/05/18 Status: REG ERRadiology No.: [id number] Number: [id number] # [id number] CT / CT BRAIN WITHOUT CONTRAST- CTBCT Head without contrastClinical Statement: Difficulty ambulating, weaknessComparison: NoneNo acute hemorrhage, infarct, or mass is seen. Minimal periventricular chronicwhite matter changes are noted. No hydrocephalus is noted. The visualizedportions of the paranasal sinuses and mastoids are clear. The calvarium isintact.IMPRESSION:No acute intracranial process.This exam was performed according to our departmental dose optimizationprogram, and includes the following measures where applicable: automatedexposure control, adjustment of the mAs and/or kVp according to patient sizeand/or exam, and an iterative reconstruction algorithm.Professional interpretation provided by [facility] RAC-PC-[id number].Thank you for this referral.< >Reported By: KELLEE TORRES D.O.Signed In NovaPro By: KELLEE TORRES D.O. << Signature on File>> Reported By: KELLEE TORRES D.O. Signed By: KELLEE TORRES D.O.Tests performed at:[address] [phone] Normal [facility] HEPATIC PANELon 03-05-2018 A:G RATIO 0.96 Low 1.1-2.5 [facility] Comment on above: Performed By: #### L 100.0010, L100.0030 ####ML - MPIRGHLWDP571 [place] [address] Albumin mass conc 3.0 g/dL Low 3.5-5.2 [facility] Comment on above: Performed By: #### L 100.0010, L100.0030 ####ML - XYLKJEATMD643 [place] [address] ALK. PHOS 143 U/L High 35-105 [facility] Comment on above: Performed By: #### L 100.0010, L100.0030 ####ML - YJHSENBMAR852 [place] [address] ALT enzyme act/vol 43 U/L High 5-33 [facility] Comment on above: Performed By: #### L 100.0010, L100.0030 ####ML - SHHVQLJTMA125 [place] [address] AST enzyme act/vol 42 U/L High 5-32 [facility] Comment on above: Performed By: #### L 100.0010, L100.0030 ####ML - BFCWYRPOYP959 [place] [address] Bilirubin Ql (U) 0.8 mg/dL Normal 0.2-1.2 [facility] Comment on above: Performed By: #### L 100.0010, L100.0030 ####ML - JGTDJBHKWZ550 [place] [address] DIRECT BILIRUBI 0.4 mg/dL High 0.0-0.3 [facility] Comment on above: Performed By: #### L 100.0010, L100.0030 ####ML - TOPLINILSO245 [place] [address] Globulin Calculated mass conc (S) 3.1 g/dL Normal 1.5-4.5 [facility] Comment on above: Performed By: #### L 100.0010, L100.0030 ####ML - VSGGYLRQRK710 [place] [address] Protein mass conc 6.1 g/dL Low 6.4-8.3 [facility] Comment on above: Performed By: #### L 100.0010, L100.0030 ####ML - [facility] FQFUHFGKOH[address] [place] [address] LUMBAR LIMITED 2Von 03-05-20 18 LUMBAR LIMITED 2V [address] [address]Zkpy: MARCOS SHELTON LPhys: BRIEN STEARNS M.D.: [birth year] Age: 67 Sex: FAcct: [id number] Loc: 2SEASTExam Date: 03/05/18 Status: ADM INoRadiology No.: [id number] Number: [id number] # Type/[id number] RAD / LUMBAR LIMITED 2VLumbar spine 3 viewsClinical statement: Low back pain, right radiculitis and numbnessNo previous for comparison. There are 5 lumbar type vertebral segments. Thepatient is status post laminectomy and pedicle screw/malou and bony fusion fromL3-L5. Hardware appears intact. Disc spacer is present at the L3-4 level.Vertebral body heights are maintained. Moderate disc space narrowing ispresent at L2-3 with vacuum disc phenomenon. Neural foramina appear patent.Grade 1 spondylolisthesis of L4 is present on L5. Sacrum and sacroiliac jointsare normal. Bilateral iliac artery stents are present along withatherosclerotic calcification in the abdominal aorta.Impression: Post laminectomy and fusion L3-L5. Degenerative disc disease L2-3.No acute osseous abnormality.Professional interpretation provided by [facility] RAC-PC-[id number].Thank you for this referral.< >Reported By: SAQIB CHENG M.D.Signed In NovaPro By: SAQIB CHENG M.D. << Signature on File>> Reported By: SAQIB CHENG M.D. Signed By: SAQIB CHENG M.D.Tests performed at:[address] [phone] Normal [facility] PRO-BNPon 03-05-2018 Natriuretic peptide B mass conc (Bld) 872 pg/mL Normal [facility] Comment on above: Result Comment: HF U NLIKELY: NT-PRO BNP <300 pg/mLHF LIKELY: NT-PRO BNP >450 pg/mL (AGE <50) NT-PRO BNP >900 pg/mL (AGE 50-75) NT-PRO BNP >1800 pg/mL (AGE >75)HF VERY LIKELY: NT-PRO BNP >10,000 pg/mLSOURCE: PRIDE ALGORITHM FOR PRO-BNP; CRITICAL PATHWAYS INCARDIOLOGY VOLUME 3, NUMBER 4; JULY 2004 Performed By: #### L 301.0090, L301.0460, L301.0120 ####ML - [facility] XQEDTGCVDI677 [place] [address] THORACIC 2Von 03-05-[address] [address]Tctn: MARCOS SHELTON LPhys: BRIEN STEARNS M.D.: [birth year] Age: 67 Sex: FAcct: [id number] Loc: 2SEASTExam Date: 03/05/18 Status: ADM INoRadiology No.: [id number] Number: [id number] # Type/[id number] RAD / THORACIC 2VThoracic spine 4 viewsClinical statement: Back pain, difficulty ambulatingNo fracture or joint subluxation is noted. The vertebral bodies, pedicles andother posterior elements are intact. The disc spaces and intervertebralforamina are preserved. The paravertebral soft tissues are unremarkable. Thereis evidence of previous cervical spine and lumbar spine surgery.IMPRESSION:No significant abnormality.Professional interpretation provided by [facility] RACPC-[id number].Thank you for this referral.< >Reported By: SAQIB CHENG M.D.Signed In NovaPro By: SAQIB CHENG M.D. << Signature on File>> Reported By: SAQIB CHENG M.D. Signed By: SAQIB CHENG M.D.Tests performed at:[address] [phone] Normal [facility] TROPONIN Ton 03-05-2018 Troponin T.cardiac mass conc ug/L Normal 0-0.010 [facility] Comment on above: Performed By: #### L 301.0090, L301.0460, L301.0120 ####ML - [facility] UALFVNZFID673 [place] [address] EMERGENCY DEPARTMENT REPORTo n 03-03-2018 EMERGENCY DEPARTMENT REPORT [place] [address]XFDUJE INFORMATION MANAGEMENTEMERMETHODIST REHABILITATION CENTERCY DEPARTMENT REPORTPatient: MARCOS SHELTON NATHAN A M.D.[id number]/ 67 FStatus: DEP ER EDDate of Service: 03/02/18CHIEF COMPLAINTRight shoulder discomfort.This, this dictation is an addendum to previous dictated.DIAGNOSTIC TESTSX-ray of the patient's shoulder shows what appears to be a fracture of the proximalhumerus.EMERGENCY DEPARTMENT COURSEThe patient brought in to bed #3 and was evaluated by myself. I have given the patient somemorphine for the pain and certainly I think helped. I have discussed this with Dr. Olea took a look at the x-rays and at this time we are going to be discharging the patienthome with a sling and swath and she will follow up with Dr. Thomas.DIAGNOSISRight proximal humerus fracture.DISPOSITIONDischa rge. 03/03/18 1643 DENISE RODRIGEZ M.D.cc: DENISE RODRIGEZ M.D.; BELL MAHER M.D. << Signature on File>> Reported By: DENISE RODRIGEZ M.D. Signed By: DENISE RODRIGEZ M.D.Tests performed at:[address] [phone] [facility] EMERGENCY DEPARTMENT REPORT [place], [place] [address]RCZIYP INFORMATION MANAGEMENTEMERMETHODIST REHABILITATION CENTERCY DEPARTMENT REPORTPatient: MARCOS SHELTON NATHAN A M.D.[id number] FStatus: DEP ER EDDate of Service: 03/02/18CHIEF COMPLAINTPain in the right humerus and shoulder after a fall.ALLERGIESPenicillin, Macrodantin, simvastatin.MEDICATIONSInc lude Aldactone, Lasix, vitamin D, Crestor, Synthroid, prednisone, Proventil, Neurontin,Restoril, Ranexa, Zofran, Prilosec, nitroglycerin, Singulair, Toprol and folic acid.HISTORY OF PRESENT ILLNESSAnd is a very nice 67-year-old white female who presents to the emergency room today viaEMS. She had a fall at home today. The patient basically fell backwards. She has pain inthe right humerus. She does not really complain of any other pain.PREVIOUS MEDICAL HISTORYSignificant for coronary artery disease and hypertension, irritable bowel, Callaway'sesophagus.SOCIAL HISTORYThe patient is . Former smoker, nondrinker.PHYSICAL EXAMINATIONGeneral/constit utional: The patient is an age-appropriate white female in no acutedistress although she says that she is in some pain. HEENT: Head symmetric andatraumatic. Neck supple. No midline tenderness. Actually moving around normally.Chest/respiratory : Lungs are clear to auscultation bilaterally. Extremities: Thepatient's right arm does show some fullness in the humerus area, not so much in theshoulder. She has a palpable radial pulse. Strength and sensation appeared to be intactin the distribution of the radial, medial and ulnar nerves.To continue. 03/03/18 1643 DENISE RODRIGEZ M.D.cc: DENISE RODRIGEZ M.D.; BELL MAHER M.D. << Signature on File>> Reported By: DENISE RODRIGEZ M.D. Signed By: DENISE RODRIGEZ M.D.Tests performed at:[address] [phone] [facility] [address] UPPER EXTREMITY WO CONTRA Bret 03-02-2018 CT UPPER EXTREMITY WO CONTRAST [address] [address]Jfou: MARCOS SHELTON LPhys: SAQIB THOMAS M.D.: [birth year] Age: 67 Sex: FAcct: [id number] Loc: EDExam Date: 03/02/18 Status: REG ERRadiology No.: [id number] Number: [id number] # Type/[id number] CT / CT UPPER EXTREMITY WO CONTRAST RTCT of the right humerus without contrastIndication: Right humeral fracture.Comparison: X-ray of the right shoulder dated 03/02/2018Findings: A mildly comminuted oblique fracture is identified through thesurgical neck of the humerus. A fracture line extends up through the greatertuberosity which is a separate fracture fragment with minimal displacement.The fracture line also extends through the inferior aspect of the humeralhead. There is approximately 2 cm of overlap of the fracture fragments withmild anterior and superior displacement of the distal fracture fragment. Theglenoid is intact. The humeral head is not dislocated.Impression: Mildly comminuted impacted fracture of the surgical neck of thehumerus.This exam was performed according to our departmental dose optimizationprogram, and includes the following measures where applicable: automatedexposure control, adjustment of the mAs and/or kVp according to patient sizeand/or exam, and an iterative reconstruction algorithm.Professional interpretation provided by [facility] [place] [address].Thank you for this referral.< >Reported By: AMBER AVELAR M.D.Signed In NovaPro By: AMBER AVELAR M.D. << Signature on File>> Reported By: AMBER AVELAR M.D. Signed By: AMBER AVELAR M.D.Tests performed at:[address] [phone] Normal [facility] HUMERUSon 03-02-[address] [address]Tddu: MARCOS SHELTON: DENISE RODRIGEZ M.D.: 52 Age: 67 Sex: FAcct: [id number] Loc: EDExam Date: 03/02/18 Status: REG ERRadiology No.: [id number] Number: [id number] # Type/[id number] RAD / HUMERUS RTX-ray of the right humerus, 2 viewsIndication: Pain, fallComparison: NoneFindings: There is a moderately displaced fracture through the humeral neck.It appears to be mildly comminuted with fracture lines extending up throughthe greater tuberosity. There is elevation and rotation of the humeral head atthe glenohumeral joint. There is superior displacement of the distal fracturefragment. No additional fracture or dislocation seen.Impression: Moderately displaced, mildly comminuted proximal humeral neckfracture.Professional interpretation provided by [facility]66.Thank you for this referral.< >Reported By: AMBER AVELAR M.D.Signed In NovaPro By: AMBER AVELAR M.D. << Signature on File>> Reported By: AMBER AVELAR M.D. Signed By: AMBER AVELAR M.D.Tests performed at:[address] [phone] Normal [facility] SHOULDER 1 VIEWon 03-02-2018 SHOULDER [address] [address]Urzi: MARCOS SHELTON LPhys: SAQIB THOMAS M.D.: 52 Age: 67 Sex: FAcct: [id number] Loc: EDExam Date: 03/02/18 Status: DEP ERRadiology No.: [id number] Number: [id number] # [id number] RAD / SHOULDER 1 VIEW RTPortable AP view right shoulderClinical statement: FractureAlignment of the comminuted fracture of the surgical neck right humerus issimilar to the study obtained earlier today. Overriding of the main fracturefragments with mild medial angulation of the humeral shaft is unchanged.Professional interpretation provided by [facility]-76.Thank you for this referral.< >Reported By: SAQIB CHENG M.D.Signed In NovaPro By: SAQIB CHENG M.D. << Signature on File>> Reported By: SAQIB CHENG M.D. Signed By: SAQIB CHENG M.D.Tests performed at:[address] [phone] Normal [facility] SHOULDER MIN 2 VIEWon 2017 SHOULDER MIN [address] [address]Asqu: MARCOS SHELTON LPhys: DENISE RODRIGEZ M.D.: 52 Age: 67 Sex: FAcct: [id number] Loc: EDExam Date: 03/02/18 Status: REG ERRadiology No.: [id number] Number: [id number] # Type/[id number] RAD / SHOULDER MIN 2 VIEW RTX-ray of the right shoulder, 3 viewsIndication: Fall, painComparison: NoneFindings: There is a moderately displaced fracture through the right humeralneck with approximately 6 cm of overlap of the fracture fragments. There issuperior and slight anterior displacement of the distal fracture fragment.There is elevation of the humeral head. Degenerative changes are seen at theacromioclavicular joint.Impression: Moderately displaced humeral neck fracture.Professional interpretation provided by [facility]-[id number].Thank you for this referral.< >Reported By: AMBER AVELAR M.D.Signed In NovaPro By: AMBER AVELAR M.D. << Signature on File>> Reported By: AMBER AVELAR M.D. Signed By: AMBER AVELAR M.D.Tests performed at:[address] [phone] [facility] [address] CERVICAL SPINE WITHOUT CO NTRAST 3Don 10-23-2017 CT CERVICAL SPINE WITHOUT CONTRAST 3D EXAMINATION:CT CERVICAL SPINE WITHOUT CONTRAST 3DHISTORY:ORDERING SYSTEM PROVIDED HISTORY: pain, TECHNOLOGIST PROVIDED HISTORY: Reason for exam: s/p fall, painInjury/TraumaEncounter Type: InitialMechanism of injury: fall this amORDERING SYSTEM PROVIDED DIAGNOSIS CODES:COMPARISON:None.TECH NIQUE:CT cervical spine without IV contrast. Coronal and sagittal reformations were performed. Additional 3D postprocessing was performed on a separate workstation.Dose reduction techniques were achieved by using automated exposure control and/or adjustment of mA and/or kV according to patient size and/or use of iterative reconstruction technique.FINDINGS:Postope rative changes from previous anterior discectomy and fusion at C5-6. Alignment is normal. Odontoid process is intact. Facet joints are normal. No acute cervical spine fracture. No paraspinal soft tissue swelling. No paraspinal masses. No significant spinal canal stenosis.IMPRESSION:No acute fracture or traumatic subluxation of the cervical spine.[facility]/Overture TechnologiesWorkstation ID: [id number] by: MIKEY VAZQUEZ on Sat Oct 23, 2017 7:22:33 AM ESTTranscribed by: MARV JHA on Sat Oct 23, 2017 7:22:33 AM ESTFinalized by: MIKEY VAZUQEZ on Sat Oct 23, 2017 2:23:05 PM EST Normal [facility] Comment on above: Order Comment: Reaso n for exam?:s/p fall, painInjury/Trauma or Illness?:Injury/TraumaHow long have you had these symptoms (acute/chronic)?:AcuteType of Exam?:InitialMechanism of injury?:fall this am CT HEAD OR BRAIN WITHOUT CON TRASTon 10-23-2017 CT HEAD OR BRAIN WITHOUT CONTRAST EXAMINATION:CT HEAD OR BRAIN WITHOUT CONTRASTHISTORY:ORDERING SYSTEM PROVIDED HISTORY: s/p fall, TECHNOLOGIST PROVIDED HISTORY: Reason for exam: s/p fall, painInjury/TraumaEncounter Type: InitialMechanism of injury: fall this amORDERING SYSTEM PROVIDED DIAGNOSIS CODES: Per ED triage note from 10/23/2017, patient felt weak and fell. Hit head.COMPARISON:None.TECHN IQUE:CT examination of the head without IV contrast.Dose reduction techniques were achieved by using automated exposure control and/or adjustment of mA and/or kV according to patient size and/or use of iterative reconstruction technique.FINDINGS:The brain parenchyma density is unremarkable. There is no acute intracranial hemorrhage, extra-axial fluid collection, midline shift, or mass effect. There is no evidence to suggest acute infarction. The ventricles, sulci, and cisterns are normal in size and configuration without hydrocephalus or herniation. There are bilateral lens replacements. There is mild scattered mucosal thickening in the paranasal sinuses. The mastoid air cells are well pneumatized and clear. There is a trace amount of subcutaneous fat stranding along the left frontal scalp; correlate with location of traumatic injury. There is an additional trace focus of subcutaneous fat stranding along the left parietal scalp; correlate with location of traumatic injury. There are no suspicious osseous lytic or sclerotic lesions. There are no acute fractures. There is mild hyperostosis frontalis.IMPRESSION:1. No acute intracranial traumatic injury. No acute intracranial hemorrhage, mass, extraaxial fluid collection, or evidence to suggest acute infarction.2. No acute fracture. Trace subcutaneous fat stranding within the left frontal scalp, as well as the left parietal scalp; correlate with location of traumatic injury.[facility]/llcWorkstation ID: [id number] by: DEANN COWAN on Sat Oct 23, 2017 7:09:45 AM ESTTranscribed by: MARV JHA on Sat Oct 23, 2017 7:14:23 AM ESTFinalized by: DEANN COWAN on Sat Oct 23, 2017 7:54:56 AM EST Normal [facility] Comment on above: Order Comment: Reaso n for exam?:s/p fall, painInjury/Trauma or Illness?:Injury/TraumaHow long have you had these symptoms (acute/chronic)?:AcuteType of Exam?:InitialMechanism of injury?:fall this am CT Head Or Brain Without Con traston 10-23-2017 CT Head Or Brain Without Contrast Interface[facility] 10/23/2017 7:57 AM EST EXAMINATION: CT HEAD OR BRAIN WITHOUT CONTRAST HISTORY: ORDERING SYSTEM PROVIDED HISTORY: s/p fall, TECHNOLOGIST PROVIDED HISTORY: Reason for exam: s/p fall, pain Injury/Trauma Encounter Type: Initial Mechanism of injury: fall this am ORDERING SYSTEM PROVIDED DIAGNOSIS CODES: Per ED triage note from 10/23/2017, patient felt weak and fell. Hit head. COMPARISON: None. TECHNIQUE: CT examination of the head without IV contrast. Dose reduction techniques were achieved by using automated exposure control and/or adjustment of mA and/or kV according to patient size and/or use of iterative reconstruction technique. FINDINGS: The brain parenchyma density is unremarkable. There is no acute intracranial hemorrhage, extra-axial fluid collection, midline shift, or mass effect. There is no evidence to suggest acute infarction. The ventricles, sulci, and cisterns are normal in size and configuration without hydrocephalus or herniation. There are bilateral lens replacements. There is mild scattered mucosal thickening in the paranasal sinuses. The mastoid air cells are well pneumatized and clear. There is a trace amount of subcutaneous fat stranding along the left frontal scalp; correlate with location of traumatic injury. There is an additional trace focus of subcutaneous fat stranding along the left parietal scalp; correlate with location of traumatic injury. There are no suspicious osseous lytic or sclerotic lesions. There are no acute fractures. There is mild hyperostosis frontalis. IMPRESSION: 1. No acute intracranial traumatic injury. No acute intracranial hemorrhage, mass, extraaxial fluid collection, or evidence to suggest acute infarction. 2. No acute fracture. Trace subcutaneous fat stranding within the left frontal scalp, as well as the left parietal scalp; correlate with location of traumatic injury. [employer] Workstation ID: [id number] Invalid Interpretation Code [employer] [facility] CT Head Or Brain Without Contrast EXAMINATION: CT HEAD OR BRAIN WITHOUT CONTRAST HISTORY: ORDERING SYSTEM PROVIDED HISTORY: s/p fall, TECHNOLOGIST PROVIDED HISTORY: Reason for exam: s/p fall, pain Injury/Trauma Encounter Type: Initial Mechanism of injury: fall this am ORDERING SYSTEM PROVIDED DIAGNOSIS CODES: Per ED triage note from 10/23/2017, patient felt weak and fell. Hit head. COMPARISON: None. TECHNIQUE: CT examination of the head without IV contrast. Dose reduction techniques were achieved by using automated exposure control and/or adjustment of mA and/or kV according to patient size and/or use of iterative reconstruction technique. FINDINGS: The brain parenchyma density is unremarkable. There is no acute intracranial hemorrhage, extra-axial fluid collection, midline shift, or mass effect. There is no evidence to suggest acute infarction. The ventricles, sulci, and cisterns are normal in size and configuration without hydrocephalus or herniation. There are bilateral lens replacements. There is mild scattered mucosal thickening in the paranasal sinuses. The mastoid air cells are well pneumatized and clear. There is a trace amount of subcutaneous fat stranding along the left frontal scalp; correlate with location of traumatic injury. There is an additional trace focus of subcutaneous fat stranding along the left parietal scalp; correlate with location of traumatic injury. There are no suspicious osseous lytic or sclerotic lesions. There are no acute fractures. There is mild hyperostosis frontalis. Invalid Interpretation Code [employer] [facility] CT Head Or Brain Without Contrast 1. No acute intracranial traumatic injury. No acute intracranial hemorrhage, mass, extraaxial fluid collection, or evidence to suggest acute infarction. 2. No acute fracture. Trace subcutaneous fat stranding within the left frontal scalp, as well as the left parietal scalp; correlate with location of traumatic injury. [employer] Workstation ID: [id number] Invalid Interpretation Code [facility] CT LUMBAR SPINE WITHOUT CONT RAST 3Don 10-23-2017 CT LUMBAR SPINE WITHOUT CONTRAST 3D EXAMINATION:CT LUMBAR SPINE WITHOUT CONTRAST 3DHISTORY:ORDERING SYSTEM PROVIDED HISTORY: fall, TECHNOLOGIST PROVIDED HISTORY: Reason for exam: s/p fall, painInjury/TraumaEncounter Type: InitialMechanism of injury: fall this amORDERING SYSTEM PROVIDED DIAGNOSIS CODES:COMPARISON:None.TECH NIQUE:CT examination of the lumbar spine without IV contrast. Coronal and sagittal reformations were performed. Additional 3D postprocessing was performed on a separate workstation.Dose reduction techniques were achieved by using automated exposure control and/or adjustment of mA and/or kV according to patient size and/or use of iterative reconstruction technique.FINDINGS:Levosco liosis of the lumbar spine measures 20 degrees. There are postoperative changes from previous laminectomy, interbody fusion and pedicle screw and malou fixation at L3-4 and L4-5. The hardware is intact. There is good posterior osseous fusion.Vertebral body heights are normal. Grade 1 spondylolisthesis at L4-5 measures 4 mm. Severe degenerative disc disease at L2-3 with severe disc space narrowing and vacuum disc phenomenon. No acute lumbar spine fracture. No high-grade spinal canal stenosis. No paraspinal soft tissue swelling.IMPRESSION:1. No acute lumbar spine fracture or traumatic subluxation.2. Advanced degenerative disc disease at L2-3.3. Status post laminectomy, interbody fusion and pedicle screw and malou fixation at L3-4 and L4-5. Hardware is intact. Grade 1 spondylolisthesis at L4-5 without significant spinal canal stenosis.[facility]/Overture TechnologiesWorkstatio n ID: [id number] by: MIKEY VAZQUEZ on Sat Oct 23, 2017 7:27:37 AM ESTTranscribed by: MARV JHA on Sat Oct 23, 2017 7:36:26 AM ESTFinalized by: MIKEY VAZQUEZ on Sat Oct 23, 2017 2:23:14 PM EST Normal [facility] Comment on above: Order Comment: Reaso n for exam?:s/p fall, painInjury/Trauma or Illness?:Injury/TraumaHow long have you had these symptoms (acute/chronic)?:AcuteType of Exam?:InitialMechanism of injury?:fall this am CT THORACIC SPINE WITHOUT CO NTRAST 3Don 10-23-2017 CT THORACIC SPINE WITHOUT CONTRAST 3D EXAMINATION:CT THORACIC SPINE WITHOUT CONTRAST 3DHISTORY:ORDERING SYSTEM PROVIDED HISTORY: pain s/p fall, TECHNOLOGIST PROVIDED HISTORY: Reason for exam: fall, painInjury/TraumaEncounter Type: InitialMechanism of injury: fall this amORDERING SYSTEM PROVIDED DIAGNOSIS CODES:COMPARISON:None.TECH NIQUE:CT examination of the thoracic spine without IV contrast. Coronal and sagittal reformations were performed. Additional 3D postprocessing was performed on a separate workstation.Dose reduction techniques were achieved by using automated exposure control and/or adjustment of mA and/or kV according to patient size and/or use of iterative reconstruction technique.FINDINGS:Alignme nt is normal. Vertebral body heights are normal. No subluxation. Disc spaces are normal in height. Facet joints are normal. No acute fracture. No spinal canal stenosis. No evidence of spinal cord compression. No paraspinal soft tissue swelling.IMPRESSION:No acute fracture or traumatic subluxation of the thoracic spine.[employer] TechnologiesWorkstation ID: [id number] by: MIKEY VAZQUEZ on [facility] Oct 23, 2017 7:17:40 AM ESTTranscribed by: MARV JHA on [facility] Oct 23, 2017 7:21:15 AM ESTFinalized by: MIKEY VAZQUEZ on [facility] Oct 23, 2017 2:23:03 PM EST Normal [facility] Comment on above: Order Comment: Reaso n for exam?:fall, painInjury/Trauma or Illness?:Injury/TraumaHow long have you had these symptoms (acute/chronic)?:AcuteType of Exam?:InitialMechanism of injury?:fall this am XR CHEST PA/APon 10-23-2017 XR CHEST PA/AP EXAMINATION:XR CHEST PA/AP, 10/23/2017HISTORY:s/p fallCOMPARISON:None.FINDIN GS:The heart, mediastinum, lungs and pleural spaces appear within normal limits. Anterior fusion hardware is seen in the cervical spine. No acute osseous injury is seen.IMPRESSION:No acute findings following the patient's fall.Workstation ID: [id number] by: RUFUS CERON on [facility] Oct 23, 2017 6:48:57 AM ESTTranscribed by: RUFUS CERON on [facility] Oct 23, 2017 6:48:57 AM ESTFinalized by: RUFUS CERON on [facility] Oct 23, 2017 6:48:57 AM EST Normal [facility] Comment on above: Order Comment: Reaso n for exam?:s/p fallInjury/Trauma or Illness?:Injury/TraumaHow long have you had these symptoms (acute/chronic)?:AcuteHistory of cancer?:Surgeries, chemotherapy, or radiation?:Type of Exam?:InitialMechanism of injury?:fall XR Chest 1 Viewon 10-23-2017 XR Chest 1 View Interface, Rad In [facility] - 10/23/2017 6:51 AM EST EXAMINATION: XR CHEST PA/AP, 10/23/2017 HISTORY: s/p fall COMPARISON: None. FINDINGS: The heart, mediastinum, lungs and pleural spaces appear within normal limits. Anterior fusion hardware is seen in the cervical spine. No acute osseous injury is seen. IMPRESSION: No acute findings following the patient's fall. Workstation ID: [id number] Invalid Interpretation Code [employer] [facility] XR Chest 1 View EXAMINATION: XR CHES T PA/AP, 10/23/2017 HISTORY: s/p fall COMPARISON: None. FINDINGS: The heart, mediastinum, lungs and pleural spaces appear within normal limits. Anterior fusion hardware is seen in the cervical spine. No acute osseous injury is seen. Invalid Interpretation Code [employer] [facility] XR Chest 1 View No acute findings following the patient's fall. Workstation ID: [id number] Invalid Interpretation Code [employer] [facility] XR HAND RIGHT 3+ VIEWS (GERALD DARD)on 10-23-2017 XR HAND RIGHT 3+ VIEWS (STANDARD) EXAMINATION:XR HAND RIGHT 3+ VIEWS (STANDARD), 10/23/2017:HISTORY:pain s/p fallCOMPARISON:None.FINDIN GS:AP, oblique and lateral views are submitted. No acute osseous, articular or soft tissue abnormality is seen. Polyarticular osteoarthritis is noted.IMPRESSION:No acute findings.Workstation ID: [id number] by: RUFUS CERON on [facility] Oct 23, 2017 6:44:51 AM ESTTranscribed by: RUFUS CERON on Sat Oct 23, 2017 6:44:51 AM ESTFinalized by: RUFUS CERON on Sat Oct 23, 2017 6:44:51 AM EST Normal [facility] Comment on above: Order Comment: Reaso n for exam?:pain s/p fallInjury/Trauma or Illness?:Injury/TraumaHow long have you had these symptoms (acute/chronic)?:AcuteHistory of cancer?:Surgeries, chemotherapy, or radiation?:Type of Exam?:InitialMechanism of injury?:pain s/p fall XR Hand Right 3+ Views (Gerald dard)on 10-23-2017 XR Hand Right 3+ Views (Standard) Interface, Rad In [facility] - 10/23/2017 6:47 AM EST EXAMINATION: XR HAND RIGHT 3+ VIEWS (STANDARD), 10/23/2017: HISTORY: pain s/p fall COMPARISON: None. FINDINGS: AP, oblique and lateral views are submitted. No acute osseous, articular or soft tissue abnormality is seen. Polyarticular osteoarthritis is noted. IMPRESSION: No acute findings. Workstation ID: [id number] Invalid Interpretation Code [employer] XR Hand Right 3+ Views (Standard) EXAMINATION: XR HAND RIGHT 3+ VIEWS (STANDARD), 10/23/2017: HISTORY: pain s/p fall COMPARISON: None. FINDINGS: AP, oblique and lateral views are submitted. No acute osseous, articular or soft tissue abnormality is seen. Polyarticular osteoarthritis is noted. Invalid Interpretation Code [employer] [place] XR Hand Right 3+ Views (Standard) No acute findings. Workstation ID: [id number] Invalid Interpretation Code [employer] [place] XR KNEE RIGHT 2 VIEWS (STAND ELIGIO)on 10-23-2017 XR KNEE RIGHT 2 VIEWS (STANDARD) EXAMINATION:XR KNEE RIGHT 2 VIEWS (STANDARD), 10/23/2017HISTORY:pain / lacerations s/p fallCOMPARISON:None.FINDIN GS:AP and lateral views show no acute fracture or malalignment. There is a small suprapatellar effusion. There is mild osteoarthritis. No soft tissue gas or foreign body is seen.IMPRESSION:1. Small knee effusion without acute fracture or malalignment. If there is concern for internal derangement, further evaluation with MRI is recommended.2. Mild osteoarthritis.3. No soft tissue gas or foreign body identified.WPT/hbWorkstati on ID: [id number] by: RUFUS CERON on Sat Oct 23, 2017 6:47:49 AM ESTTranscribed by: SUKUMAR DAVIES on Sat Oct 23, 2017 6:47:49 AM ESTFinalized by: RUFUS CERON on Sat Oct 23, 2017 6:47:49 AM EST Normal [facility] Comment on above: Order Comment: Reaso n for exam?:pain s/p fallInjury/Trauma or Illness?:Injury/TraumaHow long have you had these symptoms (acute/chronic)?:AcuteHistory of cancer?:Surgeries, chemotherapy, or radiation?:Type of Exam?:InitialMechanism of injury?:fall XR Knee Right 2 Views (Stand eligio)on 10-23-2017 XR Knee Right 2 Views (Standard) Interface, Rad In [facility] - 10/23/2017 6:50 AM EST EXAMINATION: XR KNEE RIGHT 2 VIEWS (STANDARD), 10/23/2017 HISTORY: pain / lacerations s/p fall COMPARISON: None. FINDINGS: AP and lateral views show no acute fracture or malalignment. There is a small suprapatellar effusion. There is mild osteoarthritis. No soft tissue gas or foreign body is seen. IMPRESSION: 1. Small knee effusion without acute fracture or malalignment. If there is concern for internal derangement, further evaluation with MRI is recommended. 2. Mild osteoarthritis. 3. No soft tissue gas or foreign body identified. [employer] Workstation ID: [id number] Invalid Interpretation Code [employer] [facility] XR Knee Right 2 Views (Standard) EXAMINATION: XR KNEE RIGHT 2 VIEWS (STANDARD), 10/23/2017 HISTORY: pain / lacerations s/p fall COMPARISON: None. FINDINGS: AP and lateral views show no acute fracture or malalignment. There is a small suprapatellar effusion. There is mild osteoarthritis. No soft tissue gas or foreign body is seen. Invalid Interpretation Code [employer] [place] XR Knee Right 2 Views (Standard) 1. Small knee effusion without acute fracture or malalignment. If there is concern for internal derangement, further evaluation with MRI is recommended. 2. Mild osteoarthritis. 3. No soft tissue gas or foreign body identified. [employer] Workstation ID: [id number] Invalid Interpretation Code [employer] [facility] XR PELVIS 1 VIEW (STANDARD)o n 10-23-2017 XR PELVIS 1 VIEW (STANDARD) EXAMINATION:XR PELVIS 1 VIEW (STANDARD), 10/23/2017:HISTORY:s/p fallCOMPARISON:None.FINDIN GS:The study is limited due to a combination of diffuse osteopenia and large body habitus. No acute fracture, pelvic diastasis or hip dislocation is seen. Posterior fusion hardware is noted in the lower lumbar spine.IMPRESSION:No acute findings.Workstation ID: [id number] by: RUFUS CERON on Sat Oct 23, 2017 6:47:06 AM ESTTranscribed by: RUFUS CERON on Sat Oct 23, 2017 6:47:06 AM ESTFinalized by: RUFUS CERON on Sat Oct 23, 2017 6:47:06 AM EST Normal [facility] Comment on above: Order Comment: Reaso n for exam?:s/p fallInjury/Trauma or Illness?:Injury/TraumaHow long have you had these symptoms (acute/chronic)?:AcuteHistory of cancer?:Surgeries, chemotherapy, or radiation?:Type of Exam?:InitialMechanism of injury?: XR Pelvis 1 View (Standard)o n 10-23-2017 XR Pelvis 1 View (Standard) No acute findings. Workstation ID: [id number] Invalid Interpretation Code [employer] [facility] XR Pelvis 1 View (Standard) EXAMINATION: XR PELVIS 1 VIEW (STANDARD), 10/23/2017: HISTORY: s/p fall COMPARISON: None. FINDINGS: The study is limited due to a combination of diffuse osteopenia and large body habitus. No acute fracture, pelvic diastasis or hip dislocation is seen. Posterior fusion hardware is noted in the lower lumbar spine. Invalid Interpretation Code [employer] [facility] XR Pelvis 1 View (Standard) Interface, Rad In [employer] [facility] [place] - 10/23/2017 6:49 AM EST EXAMINATION: XR PELVIS 1 VIEW (STANDARD), 10/23/2017: HISTORY: s/p fall COMPARISON: None. FINDINGS: The study is limited due to a combination of diffuse osteopenia and large body habitus. No acute fracture, pelvic diastasis or hip dislocation is seen. Posterior fusion hardware is noted in the lower lumbar spine. IMPRESSION: No acute findings. Workstation ID: [id number] Invalid Interpretation Code [employer] [facility]Con [facility]2 017 SHOE IRONER - RAKEL [address] [place], [place] [address]YWLKN [facility]ING CENTERNURSING DOCUMENTATION - CASE MANAGERPatient: MARCOS SHELTON,[id number]/[birth year] 67 FStatus: REG RCR [facility] Report Date & Time: 06/24/17 1437Case ManagerCase Nurse Emergency NotesAllergies:AllergiesPe nicillins (Coded, Intermediate, HIVES (ALLERGY), 03/13/17)nitrofurantoin (From MACRODANTIN) (Coded, Intermediate, HIVES (ALLERGY), 03/13/17)simvastatin (Coded, UNKNOWN, 03/13/17)Notes:FLUID FILLED BOGGY DISCOLORED AREA NOTED TO LEFT CALF, PT WENT TO ER FOR THIS A COUPLE OFWEEKS AGO AND THEN SHE SAW HER PCP ON WEDNESDAY BUT HE DID NOT ASSESS THIS AREA. DRY SCABBINGNOTED TO LEFT ARM. DRIED FISSURE NOTED TO ROGER HEELS. 2+ PITTING TO BLE. DR MAHER PLACED PTON CIPRO ON WEDNESDAY FOR SUSPECTED CELLULITIS TO E. DID NOT HAVE TUBIGRIP OR DRESSINGS TORLE. COLLAPSED BLISTER NOTED TO RIGHT MEDIAL HALLUX WITH SCANT AMOUNT S/S DRAINAGE. MOISTURENOTED TO VARIOUS WEBSPACES ON BILATERAL FEET.Phys notified of above Notes:Yes (Cherelle CERRATO CNP)Pre-Procedure Verification:Correct Patient, Procedure Consent, Correct Equip/Medications, Correct Procedure, CorrectSite, Correct Patient Position, Staff agree to proceedAdd Anesthetic:Hurricaine [place]:Bleeding:MinimumBlee d controlled with:PressurePain Ass>=5 must be noted:NoneDebridement Toleration:WellContinuum of Care:N/AWound Assessment 1-30Wound CareWound cleansing:Rinsed w/salineTopical Anesthetic applied:2% Lidocaine viscousWOUND#1Status:Under Treatment (04-01-17)Location:LEFT KNEEWound#1 AssessmentThickness:Full thicknessEtiologyTrauma, otherDuration0.5Wound Dimension HistoryWEEK #70WIEQ12/02/17Length (cm)2.0Width (cm)2.2Depth (cm)0.1Area sq (cm)4.4Wound Dimension HistoryWEEK #9RWDC7304/29/17Length (cm)10.4 (CLUSTER)Width (cm)9.8Depth (cm)0.1Area sq (cm)101.92Wound Dimension HistoryWEEK #9VJKL9305/13/17Length (cm)4.5 (CLUSTER)Width (cm)8.6Depth (cm)0.1Area sq (cm)38.70Wound Dimension HistoryWEEK #9HGXO8205/27/17Length (cm)3.6 (CLUSTER)Width (cm)4.3Depth (cm)0.1Area sq (cm)15.48Wound Dimension HistoryWEEK #55MOBO90/19/17Length (cm)4.3 (CLUSTER OF 2)Width (cm)1.1Depth (cm)0.1Area sq (cm)4.73TRACT/TUNNELINGNoU NDERMININGNoDetails:Area exposed:No Exposed tendon, No Exposed bone, No Exposed muscle, No Exposed jointClinical Debridement:YesDebridement Level:SQWOUND#2Status:Conv erted (05-13-17)Location:LEFT MEDIAL PRETIB CLUSTERWound#2 AssessmentThickness:Full thicknessEtiologyTrauma, otherDuration0.5Converted to Wound#11Wound Dimension HistoryWEEK #INITIAL ESGZEYKYHTMEPQ74/10/17Leng th (cm)3.4 (CLUSTER OF 2)Width (cm)1.3Depth (cm)0.2Area sq (cm)4.42Wound Dimension HistoryWEEK #8MDCK1104/19/17Length (cm)2.5 (CLUSTER)Width (cm)1.2Depth (cm)0.1Area sq (cm)3Wound Dimension HistoryWEEK #4LRFI9704/29/17Length (cm)2.3Width (cm)1.1Depth (cm)0.1Area sq (cm)2.53Wound Dimension HistoryWEEK #0VUTW6505/13/17Details:Area exposed:No Exposed tendon, No Exposed bone, No Exposed muscle, No Exposed jointUlcer outcome:Converted (TO WOUND #11 05-13-17)Ulcer outcome:Converted (TO WOUND #11 05-13-17)WOUND#3Status:Heal ed (06/24/17)Location:RIGHT PROXIMAL PRETIBWound#3 AssessmentThickness:Full thicknessEtiologyTrauma, otherDuration0.5Wound Dimension HistoryWEEK #37IAUS57//17Length (cm)0.4Width (cm)0.6Depth (cm)0.1Area sq (cm)0.24Wound Dimension HistoryWEEK #93BYQP86Length (cm)0Width (cm)0Depth (cm)0Area sq (cm)0Wound Dimension HistoryWEEK #5IEJU35Length (cm)2.0Width (cm)1.5Depth (cm)0.1Area sq (cm)3.0Wound Dimension HistoryWEEK #4PRGM91Length (cm)3.0Width (cm)3.4Depth (cm)0.1Area sq (cm)10.20Wound Dimension HistoryWEEK #0EDDX49Length (cm)1.3Width (cm)1.3Depth (cm)0.1Area sq (cm)1.69TRACT/TUNNELINGNoU NDERMININGNoDetails:Area exposed:No Exposed tendon, No Exposed bone, No Exposed muscle, No Exposed jointUlcer outcome:Epithelialized (06/24/17)Ulcer outcome:Epithelialized (06/24/17)WOUND#4Status:Hea led (06/24/17)Location:RIGHT PRETIBWound#4 AssessmentThickness:Full thicknessEtiology:Trauma, otherDuration:0.5Wound Dimension HistoryWEEK #61FLLE31//17Length (cm)0.4Width (cm)0.3Depth (cm)0.1Area sq (cm)0.12Wound Dimension HistoryWEEK #20DASC09Length (cm)0Width (cm)0Depth (cm)0Area sq (cm)0Wound Dimension HistoryWEEK #7JKJW04Length (cm)4.2Width (cm)3.0Depth (cm)0.1Area sq (cm)12.6Wound Dimension HistoryWEEK #9RWRK75Length (cm)3.9 (CLUSTER)Width (cm)1.8Depth (cm)0.1Area sq (cm)7.02Wound Dimension HistoryWEEK #8TRNT5905/27/17Length (cm)2.7Width (cm)1.0Depth (cm)0.1Area sq (cm)2.7TRACT/TUNNELINGNoUN DERMININGNoDetails:Area exposed:No Exposed tendon, No Exposed bone, No Exposed muscle, No Exposed jointUlcer outcome:Epithelialized (06/24/17)Ulcer outcome:Epithelialized (06/24/17)WOUND#5Status:Hea led (04-19-17)Location:RIGHT POSTERIOR CALFWound#5 AssessmentThickness:Full thicknessEtiology:Trauma, otherDuration:0.5Wound Dimension HistoryWEEK #INITIAL UTCMSCUKLDXDTT94/10/17Leng th (cm)2.1Width (cm)1.3Depth (cm)0.1Area sq (cm)2.73Wound Dimension HistoryWEEK #2IXMH8804/19/17Length (cm)0Width (cm)0Depth (cm)0Area sq (cm)0Details:Ulcer outcome:Epithelialized (04-19-17)Clinical Debridement:NoDebridement Level:N/AUlcer outcome:Epithelialized (04-19-17)WOUND#6Status:Hea led (04-29-17)Location:L POST CALFWound#6 AssessmentThickness:Full thicknessEtiologyTrauma, otherDuration0.25Wound Dimension HistoryWEEK #3 (INITIAL FOR THIS WOUND)DATE04/19/17Length (cm)1.2Width (cm)0.1Depth (cm)0.1Area sq (cm)0.12Wound Dimension HistoryWEEK #0RNKU4104/29/17Length (cm)0Width (cm)0Depth (cm)0Area sq (cm)0Details:Area exposed:No Exposed tendon, No Exposed bone, No Exposed muscle, No Exposed jointUlcer outcome:Epithelialized (04-29-17)Ulcer outcome:Epithelialized (04-29-17)WOUND#7Status:Heal ed (05-13-17)Location:RIGHT 4TH WEBSPACEWound#7 AssessmentThickness:Full thicknessEtiologyTrauma, otherDuration0.25Wound Dimension HistoryWEEK #4 (INITIAL ASSESSMENT)DATE04/29/17Len gth (cm)0.5Width (cm)0.4Depth (cm)0.1Area sq (cm)0.20Wound Dimension HistoryWEEK #5SPVG1005/13/17Length (cm)0Width (cm)0Depth (cm)0Area sq (cm)0Details:Area exposed:No Exposed tendon, No Exposed bone, No Exposed muscle, No Exposed jointUlcer outcome:Epithelialized (05-13-17)Clinical Debridement:NoDebridement Level:N/AUlcer outcome:Epithelialized (05-13-17)WOUND#8Status:Hea led (06/24/17)Location:RIGHT MEDIAL 1ST MTPWound#8 AssessmentThickness:Full thicknessEtiologyTrauma, otherDuration0.25Wound Dimension HistoryWEEK #4 (INITIAL ASSESSMENT)DATE04/29/17Len gth (cm)0.2Width (cm)0.3Depth (cm)0.1Area sq (cm)0.06Wound Dimension HistoryWEEK #3JJMJ3905/13/17Length (cm)0.2Width (cm)0.3Depth (cm)0.1Area sq (cm)0.06Wound Dimension HistoryWEEK #0NTFO9005/27/17Length (cm)0.2Width (cm)0.2Depth (cm)0.1Area sq (cm)0.04Wound Dimension HistoryWEEK #39DBXT25/19/17Length (cm)0.2Width (cm)0.2Depth (cm)0.1Area sq (cm)0.04Wound Dimension HistoryWEEK #68CART35/02/17Length (cm)0Width (cm)0Depth (cm)0Area sq (cm)0TRACT/TUNNELINGNoUNDE RMININGNoDetails:Area exposed:No Exposed tendon, No Exposed bone, No Exposed muscle, No Exposed jointUlcer outcome:Epithelialized (06/24/17)Ulcer outcome:Epithelialized (06/24/17)WOUND#9Status:Con verted (05-13-17)Location:LEFT PRETIBWound#9 AssessmentThickness:Full thicknessEtiologyTrauma, otherDuration.25Converted to Wound#11Wound Dimension HistoryWEEK #4 (INITIAL ASSESSMENT)DATE04/29/17Len gth (cm)1.9 (CLUSTER)Width (cm)1.8Depth (cm)0.1Area sq (cm)3.42Wound Dimension HistoryWEEK #3QESP6905/13/17Details:Area exposed:No Exposed tendon, No Exposed bone, No Exposed muscle, No Exposed jointUlcer outcome:Converted (TO WOUND #11 05-13-17)WOUND#10Status:Und er Treatment (04-29-17)Location:RIGHT LATERAL KNEEWound#10 AssessmentThickness:Full thicknessEtiologyTrauma, otherDuration.25Wound Dimension HistoryWEEK #4 (INITIAL ASSESSMENT)DATE04/29/17Len gth (cm)1.2Width (cm)1.2Depth (cm)0.1Area sq (cm)1.44Wound Dimension HistoryWEEK #8ZKPZ4205/13/17Length (cm)0.4Width (cm)0.4Depth (cm)0.1Area sq (cm)0.16Wound Dimension HistoryWEEK #7OGDG2305/27/17Length (cm)2.4Width (cm)2.8Depth (cm)0.1Area sq (cm)6.72Wound Dimension HistoryWEEK #94KAHW93/19/17Length (cm)0.9Width (cm)2.0Depth (cm)0.1Area sq (cm)1.8Wound Dimension HistoryWEEK #95EOIX44/02/17Length (cm)0.2Width (cm)1.0Depth (cm)0.1Area sq (cm)0.2TRACT/TUNNELINGNoUN DERMININGNoDetails:Area exposed:No Exposed tendon, No Exposed bone, No Exposed muscle, No Exposed jointClinical Debridement:YesDebridement Level:SQWOUND#11Status:Und er Treatment (05-13-17)Location:LLE CIRC.Wound#11 AssessmentThickness:Full thicknessEtiologyTrauma, otherDuration0.25Wound Dimension HistoryWEEK #6 (INITIAL ASSESSMENT)DATE05/13/17Len gth (cm)15.9 (SLIGHT ANGLE)Width (cm)10.4Depth (cm)0.1Area sq (cm)165.36Wound Dimension HistoryWEEK #6EFGC3405/27/17Length (cm)15.9 (SLIGHT ANGLE)Width (cm)14.1Depth (cm)0.1Area sq (cm)224.19Wound Dimension HistoryWEEK #16SYSR67/19/17Length (cm)17.0 (CLUSTER)Width (cm)12.0Depth (cm)0.1Area sq (cm)204.0Wound Dimension HistoryWEEK #01ONCG64/02/17Length (cm)4.0Width (cm)10.7Depth (cm)0.1Area sq (cm)42.8TRACT/TUNNELINGNoU NDERMININGNoDetails:Area exposed:No Exposed tendon, No Exposed bone, No Exposed muscle, No Exposed jointClinical Debridement:YesDebridement Level:SQ 06/24/17 1444 Christine CHENEY c: << Signature on File>> Reported By: ETHAN CHENEY Signed By: Sally CHENEY performed at:[address] [phone] [facility] DISCHG NOTES - RAKEL DOCon DISCHG NOTES - RAKEL DOC [place], [place] [address]UHQTR HEALING CENTERNURSING DOCUMENTATION - DISCHARGE NOTESPatient: MARCOS SHELTON [id number]/[birth year] 67 FStatus: REG [facility] Report Date & Time: 06/24/17 1457Discharge Notes:Wound #'s:Wound #'s:1,10,11Cleansed with:Normal SalineDressing applied:SilvadeneCover with:Dry Dressing, Non-Elastic Roll GauzeCompression applied:Tubular Bandage (BLE)EducationDSCUSSD/UNDE RST: Discharge Instructions. HANDOUT GIVEN: Discharge Instructions. REINSTR/UNDERST: Basic hygiene, Skin care, Wound care, Soft tissue infection.Pain Ass - Pain >=5 must be addressed in Notes:NoneDischg conditionStableMisc Dischg InfoMed Rec given to patient, Dischg orders to pt. No: Scripts to patient.Nurse NotesPT [facility]D [facility].MOVING OUT OF STATE.Dressing Applied by:Liz Knight L.P.N. 06/24/17 1459 PRABHA DAVIEScc : << Signature on File>> Reported By: PRABHA DAVIES Signed By: Emi DAVIES performed at:[address] [phone] [facility] INTAKE - RAKEL DOCon 7 INTAKE - RAKEL DOC [place], [place] [address]QSPXH HEALING CENTERNURSING DOCUMENTATION - INTAKEPatient: MARCOS SHELTON STEPHANIE R.N./[id number] FStatus: REG [facility] Report Date & Time: 06/24/17 1328Visit Type/ArrivalVisit TypeDOCTOR VISITYesArrival informationPerson accompanying patientSELFTransfer assistanceManual/# staff (1), WheelchairPatient ID [id number] verification processYesPt in isolationNoEducationPt/CG Learning BarriersProvider assessedPatient (04-01-17)Impaired visionYes, GlassesDecreased hand dexterityNoImpaired hearingNoCultural/Religous beliefs affecting medical care:NONEPt Learning Cognitive BarriersMemory deficitNoLanguage barrierNoPrimary languageEnglishTranslator NeededNoPt/CG Edu/Motivational BarrierComprehension levelHighEducational backgroundHigh school (11TH GRADE)Knowledge level (concerning his/her health problemHighLearning preferencesExplanation, Demonstration, Printed materialMotivational levelAsks questions, CalmEmotional BarriersEmotional BarriersNoPt/CG UnderstandingPT/CG voices understandingYesVitalsHeig ht & WeightFrom RXM Data:Height: 5 Ft. 4 In.Weight: 150 Lbs. 0 Oz. 68.860202 Kg.Vital Signs:Blood Pressure:135/72Pulse:72Tem perature:97.7Respirations: 16Most recent FS Glu per PatientN/AHGB A1CN/AHospital since last visit:NoDressing:Yes: Dressing in place, Compression in place (LEFT ONLY). N/A: Offloading in place.Added or deleted any Meds:Yes (GABAPENTIN & CIPRO(CELLULITIS))Vaccinat ions:Flu Vac date___ (05/2017), Pneumo Vac date___ (NO), Tetanus Vac date___ (UP TO DATE)Any new allergy or adv react:NoSigns of abuse and/or neglect:NoNotes:FLUID FILLED BOGGY DISCOLORED AREA NOTED TO LEFT CALF, PT WENT TO ER FOR THIS A COUPLE OFWEEKS AGO AND THEN SHE SAW HER PCP ON WEDNESDAY BUT HE DID NOT ASSESS THIS AREA. DRY SCABBINGNOTED TO LEFT ARM. DRIED FISSURE NOTED TO ROGER HEELS. 2+ PITTING TO BLE. DR MAHER PLACED PTON LOISRO ON WEDNESDAY FOR SUSPECTED CELLULITIS TO E. DID NOT HAVE TUBIGRIP OR DRESSINGS TORLE. COLLAPSED BLISTER NOTED TO RIGHT MEDIAL HALLUX WITH SCANT AMOUNT S/S DRAINAGE. MOISTURENOTED TO VARIOUS WEBSPACES ON BILATERAL FEET.Phys notified of above Notes:Yes (Cherelle CERRATO [facility])Data Collected by:Liz Knight L.P.N.NutritionNutrition Profile:Nutri Prof completed on__ (04-01-17), Glasses Of Water Per Day (1)Nutrition Reassesment Date:07/02/17Pain assessmentHave you been experiencing pain?NoFootwearFootwearReg ular shoeLower Leg AssessmentEdema right leg:Yes, Right ankle (cm) (24.0), Right Calf (cm) (31.4)LE temp/right leg:CoolPulse right leg:Dorsalis Pedis, FaintEdema left leg:Yes, Left ankle (cm) (25.3), Left calf (cm) (31.9)LE temp left leg:CoolPulse left leg:Dorsalis Pedis, FaintLower extremity assessmentLEA Profile completed qf___8-88-79 BY Cherelle NICHOLAS Reassesment Due:10/02/17Pedal pulsesDP pulse right - PalpableYesDP pulse left - PalpableYesDP pulse right - DopplerBiphasicDP pulse left - DopplerBiphasicPT pulse right - PalpableYesPT pulse left - PalpableYesPT pulse right - DopplerBiphasicPT pulse left - DopplerBiphasicWound Assessment 1-30Wound CareWound cleansing:Rinsed w/salineTopical Anesthetic applied:2% Lidocaine viscousWOUND#1Status:Under Treatment (04-01-17)Location:LEFT KNEEWound#1 AssessmentThickness:Full thicknessEtiologyTrauma, otherDuration0.5Wound Dimension HistoryWEEK #61WJJO72//17Length (cm)2.0Width (cm)2.2Depth (cm)0.1Area sq (cm)4.4Wound Dimension HistoryWEEK #7UPLN89//17Length (cm)10.4 (CLUSTER)Width (cm)9.8Depth (cm)0.1Area sq (cm)101.92Wound Dimension HistoryWEEK #5BTWN98//17Length (cm)4.5 (CLUSTER)Width (cm)8.6Depth (cm)0.1Area sq (cm)38.70Wound Dimension HistoryWEEK #8QZLD73//17Length (cm)3.6 (CLUSTER)Width (cm)4.3Depth (cm)0.1Area sq (cm)15.48Wound Dimension HistoryWEEK #77MBIL54//17Length (cm)4.3 (CLUSTER OF 2)Width (cm)1.1Depth (cm)0.1Area sq (cm)4.73TRACT/TUNNELINGNoU NDERMININGNoDetails:Exudat e:None: Purulent (NO DRESSING), Serous, Serosang, Estrada, Green, Other.Granulation:None: Red, [place], Pale, Hypertropic.Necrosis:Lrg (67-100%): Yel Nec, Dry.Area exposed:No Exposed tendon, No Exposed bone, No Exposed muscle, No Exposed jointDescription:Yes: Epithelialization, Photo taken.Foul Odor after cleansing:NoWound Margin:Indistinct, nonvisibleErythema:NonePer iwound skin:Dry, Hyperpigmentation, Peeling, ScarringWOUND#2Status:Conv erted (05-13-17)Location:LEFT MEDIAL PRETIB CLUSTERWound#2 AssessmentThickness:Full thicknessEtiologyTrauma, otherDuration0.5Converted to Wound#11Wound Dimension HistoryWEEK #INITIAL NXQNOYCMKHTXOI35/10/17Leng th (cm)3.4 (CLUSTER OF 2)Width (cm)1.3Depth (cm)0.2Area sq (cm)4.42Wound Dimension HistoryWEEK #1KBOM20/Length (cm)2.5 (CLUSTER)Width (cm)1.2Depth (cm)0.1Area sq (cm)3Wound Dimension HistoryWEEK #1WEWF56/03/08Length (cm)2.3Width (cm)1.1Depth (cm)0.1Area sq (cm)2.53Wound Dimension HistoryWEEK #9SOPT9505/13/17Details:Area exposed:No Exposed tendon, No Exposed bone, No Exposed muscle, No Exposed jointUlcer outcome:Converted (TO WOUND #11 05-13-17)WOUND#3Status:Heal ed (06/24/17)Location:RIGHT PROXIMAL PRETIBWound#3 AssessmentThickness:Full thicknessEtiologyTrauma, otherDuration0.5Wound Dimension HistoryWEEK #23WSOM51/19/Length (cm)0.4Width (cm)0.6Depth (cm)0.1Area sq (cm)0.24Wound Dimension HistoryWEEK #37AESN95/02/17Length (cm)0Width (cm)0Depth (cm)0Area sq (cm)0Wound Dimension HistoryWEEK #7TJVI0804/29/17Length (cm)2.0Width (cm)1.5Depth (cm)0.1Area sq (cm)3.0Wound Dimension HistoryWEEK #2RPZU1905/13/17Length (cm)3.0Width (cm)3.4Depth (cm)0.1Area sq (cm)10.20Wound Dimension HistoryWEEK #9YZFH1505/27/17Length (cm)1.3Width (cm)1.3Depth (cm)0.1Area sq (cm)1.69TRACT/TUNNELINGNoU NDERMININGNoDetails:Exudat e:None: Purlent (NO DRESSING), Serous, Serosang, Estrada, Green, Other.Granulation:None: Red, [place], Pale, Hypertropic.Necrosis:None: Blk Nec, Yel Nec, Wet, Dry.Area exposed:No Exposed tendon, No Exposed bone, No Exposed muscle, No Exposed jointDescription:Yes: Epithelialization, Photo taken.Foul odor after cleansing:NoWound Margin:N/AErythema:NonePer iwound Skin:ScarringUlcer outcome:Epithelialized (06/24/17)WOUND#4Status:Hea led (06/24/17)Location:RIGHT PRETIBWound#4 AssessmentThickness:Full thicknessEtiology:Trauma, otherDuration:0.5Wound Dimension HistoryWEEK #26IBXX38/19/Length (cm)0.4Width (cm)0.3Depth (cm)0.1Area sq (cm)0.12Wound Dimension HistoryWEEK #24JBHG45/02/17Length (cm)0Width (cm)0Depth (cm)0Area sq (cm)0Wound Dimension HistoryWEEK #2SLRY6904/29/17Length (cm)4.2Width (cm)3.0Depth (cm)0.1Area sq (cm)12.6Wound Dimension HistoryWEEK #9TDZX97Length (cm)3.9 (CLUSTER)Width (cm)1.8Depth (cm)0.1Area sq (cm)7.02Wound Dimension HistoryWEEK #6HACO2205/27/17Length (cm)2.7Width (cm)1.0Depth (cm)0.1Area sq (cm)2.7TRACT/TUNNELINGNoUN DERMININGNoDetails:Exudate :None: Purulent, Serous, Serosang, Estrada, Green, Other.Granulation:None: Red, [place], Pale, Hypertropic.Necrosis:None: Blk Nec, Yel Nec, Wet, Dry.Area exposed:No Exposed tendon, No Exposed bone, No Exposed muscle, No Exposed jointDescription:Yes: Epithelialization, Photo taken.Foul odor after cleansing:NoWound Margin:N/AErythema:NonePer iwound skin:ScarringUlcer outcome:Epithelialized (06/24/17)WOUND#5Status:Hea led (04-19-17)Location:RIGHT POSTERIOR CALFWound#5 AssessmentThickness:Full thicknessEtiology:Trauma, otherDuration:0.5Wound Dimension HistoryWEEK #INITIAL ZNGWYZNMAEBZVS52/10/17Leng th (cm)2.1Width (cm)1.3Depth (cm)0.1Area sq (cm)2.73Wound Dimension HistoryWEEK #5CUPH5004/19/17Length (cm)0Width (cm)0Depth (cm)0Area sq (cm)0Details:Ulcer outcome:Epithelialized (04-19-17)WOUND#6Status:Hea led (04-29-17)Location:L POST CALFWound#6 AssessmentThickness:Full thicknessEtiologyTrauma, otherDuration0.25Wound Dimension HistoryWEEK #3 (INITIAL FOR THIS WOUND)DATE04/19/17Length (cm)1.2Width (cm)0.1Depth (cm)0.1Area sq (cm)0.12Wound Dimension HistoryWEEK #9FGRE0404/29/17Length (cm)0Width (cm)0Depth (cm)0Area sq (cm)0Details:Area exposed:No Exposed tendon, No Exposed bone, No Exposed muscle, No Exposed jointUlcer outcome:Epithelialized (04-29-17)WOUND#7Status:Heal ed (05-13-17)Location:RIGHT 4TH WEBSPACEWound#7 AssessmentThickness:Full thicknessEtiologyTrauma, otherDuration0.25Wound Dimension HistoryWEEK #4 (INITIAL ASSESSMENT)DATE04/29/17Len gth (cm)0.5Width (cm)0.4Depth (cm)0.1Area sq (cm)0.20Wound Dimension HistoryWEEK #9YABJ3105/13/17Length (cm)0Width (cm)0Depth (cm)0Area sq (cm)0Details:Area exposed:No Exposed tendon, No Exposed bone, No Exposed muscle, No Exposed jointUlcer outcome:Epithelialized (05-13-17)WOUND#8Status:Hea led (06/24/17)Location:RIGHT MEDIAL 1ST MTPWound#8 AssessmentThickness:Full thicknessEtiologyTrauma, otherDuration0.25Wound Dimension HistoryWEEK #4 (INITIAL ASSESSMENT)04/29/17Len gth (cm)0.2Width (cm)0.3Depth (cm)0.1Area sq (cm)0.06Wound Dimension HistoryWEEK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 Comment: Nanda joseph mean GFR = 85 mL/min/1.73 sq.m. for ages 60-69 years. Chronic Kidney Disease: Less than 60 mL/min/1.73 square metersEnd Stage Renal Disease: Less than 15 mL/min/1.73 square meters Performed By: #### G FR ####[facility], [address] [place] [id number] eGFR (non-black) 38 mL/min/1.73m 2 Normal [facility] Comment on above: Order Comment: CBN Performed By: #### G FR ####[address] [id number] History and Physical (Blank) on 03-05-2017 History and Physical (Blank) Normal [facility] Lactic acidon 03-05-2017 Lactate 1.6 mmol/L Normal 0.2-2.0 [facility] Comment on above: Order Comment: CBN Performed By: #### L AC ####[facility], [address] [place] [address] XR CHEST 2 VIEWSon 7 XR CHEST 2 VIEWS ORIGINALXR CHEST 2 V IEWS CLINICAL STATEMENT: PAIN - TRAUMA PATIENT COMPARISON: Chest radiograph 06/24/2016 FINDINGS: The cardiomediastinal contours are stable. There is no consolidation, vascular congestion, pleural effusion, or pneumothorax. No displaced fractures are identified. IMPRESSION: No acute radiographic findings. Interpreted By: Ailin Pangreliminary Report By: Ailin Pang MDElectronically Signed By: Ailin Pang MD Dictated Date: 03/05/2017 12:36:45 PM Prelim Date: 03/05/2017 12:36:45 PM Sign Date: 03/05/2017 12:38:29 PM Normal [facility] Vital Signs Date Time Vital Sign Value Performing Clinician Facility 04-06-2025 19:50-0400 SaO2% (BldA) [Mass fraction] 99.0 % ONEAL BHATIA MD [facility] 01-07-2025 14:58-0400 Heart rate 78 /min HERVE MINOR MD [facility] 01-07-2025 14:58-0400 Reason For Taking VItal Signs HERVE MINOR MD [facility] 01-07-2025 11:32-0400 Heart rate 76 /min HERVE MINOR MD [facility] 01-07-2025 11:32-0400 Reason For Taking VItal Signs HERVE MINOR MD [facility] 01-07-2025 11:32-0400 Respiratory rate 18 /min HERVE MINOR MD [facility] 01-07-2025 10:30-0400 Heart rate 74 /min HERVE MINOR MD [facility] 01-07-2025 10:30-0400 Blood Pressure Cuff Size HERVE MINOR MD [address] [place] [id number] 01-07-2025 10:30-0400 Blood Pressure Location HERVE MINOR MD [address] [place] [address] 01-07-2025 10:30-0400 Blood Pressure Method HERVE MINOR MD [address] [place] [address] 01-07-2025 10:30-0400 Body temperature 97.52 [degF] HERVE MINOR MD [address] [place] [address] 01-07-2025 10:30-0400 Diastolic Blood Pressure Non-Invasive 58 mm[Hg] HERVE MINOR MD [address] [place] [address] 01-07-2025 10:30-0400 Reason For Taking VItal Signs HERVE MINOR MD [address] [place] [address] 01-07-2025 10:30-0400 Respiratory rate 16 /min HERVE MINOR MD [address] [place] [address] 01-07-2025 10:30-0400 Systolic Blood Pressure Non-Invasive 102 mm[Hg] HERVE MINOR MD [address] [place] [address] 01-07-2025 08:04-0400 Heart rate 77 /min HERVE MINOR MD [address] [place] [address] 01-07-2025 07:53-0400 Blood Pressure Location HERVE MINOR MD [address] [place] [address] 01-07-2025 07:53-0400 Body temperature 97.52 [degF] HERVE MINOR MD [address] [place] [address] 01-07-2025 07:53-0400 Diastolic Blood Pressure Non-Invasive 40 mm[Hg] HERVE MINOR MD [address] [place] [address] 01-07-2025 07:53-0400 Respiratory rate 16 /min HERVE MINOR MD [address] [place] [address] 01-07-2025 07:53-0400 Systolic Blood Pressure Non-Invasive 114 mm[Hg] HERVE MINOR MD [address] [place] [address] 01-07-2025 04:16-0400 Blood Pressure Cuff Size HERVE MINOR MD [address] [place] [address] 01-07-2025 04:16-0400 Blood Pressure Location HERVE MINOR MD [address] [place] [address] 01-07-2025 04:16-0400 Blood Pressure Method HERVE MINOR MD [address] [place] [address] 01-07-2025 04:16-0400 Diastolic Blood Pressure Non-Invasive 37 mm[Hg] HERVE MINOR MD [address] [place] [address] 01-07-2025 04:16-0400 Systolic Blood Pressure Non-Invasive 107 mm[Hg] HERVE MINOR MD [address] [place] [address] 01-06-2025 22:22-0400 Blood Pressure Cuff Size HERVE MINOR MD [address] [place] [address] 01-06-2025 22:22-0400 Blood Pressure Method HERVE MINOR MD [address] [place] [address] 01-06-2025 22:22-0400 Body temperature 97.52 [degF] HERVE MINOR MD [address] [place] [address] 01-06-2025 17:08-0400 Body temperature 95.9 [degF] HERVE MINOR MD [address] [place] [address] 01-06-2025 16:02-0400 Heart rate 82 /min HERVE MINOR MD [address] [place] [address] 01-06-2025 15:21-0400 Body temperature 97.34 [degF] HERVE MINOR MD [address] [place] [address] 01-06-2025 15:21-0400 Body weight 81 kg HERVE MINOR MD [address] [place] [address] 01-06-2025 10:58-0400 Heart rate 91 /min HERVE MINOR MD [facility] 01-06-2025 05:28-0400 Body height 162.6 cm HERVE MINOR MD [facility] 01-06-2025 05:28-0400 Body weight 84.3 kg HERVE MINOR MD [facility] 01-06-2025 05:28-0400 Body weight 31.89 kg/m2 HERVE MINOR MD [facility] 09-07-2024 11:56-0500 Body temperature 97.2 [degF] Dr. Bell Maher MD Work Phone: [facility] 09-07-2024 11:56-0500 Diastolic blood pressure 41 mm[Hg] Dr. Bell Maher MD Work Phone: [facility] 09-07-2024 11:56-0500 Heart rate 74 /min Dr. Bell Maher MD Work Phone: [facility] 09-07-2024 11:56-0500 Respiratory rate 18 /min Dr. Bell Maher MD Work Phone: [facility] 09-07-2024 11:56-0500 Systolic blood pressure 124 mm[Hg] Dr. Bell Maher MD Work Phone: [facility] 09-07-2024 10:57-0500 SaO2% (BldA) [Mass fraction] 99 % Dr. Bell Maher MD Work Phone: [facility] 09-07-2024 09:01-0500 Body height 162.[address] Bell Maher MD Work Phone: [facility] 08-18-2024 15:14-0500 Diastolic blood pressure 58 mm[Hg] Dr. Bell Maher MD Work Phone: [facility] 08-18-2024 15:14-0500 Heart rate 97 /min Dr. Bell Maher MD Work Phone: [facility] 08-18-2024 15:14-0500 Respiratory rate 16 /min Dr. Bell Maher MD Work Phone: [facility] 08-18-2024 15:14-0500 SaO2% (BldA) [Mass fraction] 98 % Dr. Bell Maher MD Work Phone: [facility] 08-18-2024 15:14-0500 Systolic blood pressure 129 mm[Hg] Dr. Bell Maher MD Work Phone: [facility] 08-18-2024 11:32-0500 Body mass index (BMI) [Ratio] 29.7 kg/m2 Dr. Bell Maher MD Work Phone: [facility] 08-18-2024 11:32-0500 Body temperature 97.6 [degF] Dr. Bell Maher MD Work Phone: [facility] 08-18-2024 11:32-0500 Body weight [address] Bell Maher MD Work Phone: [facility] 04-20-2023 10:59-0400 Body height 162.6 cm [facility] Work Phone: [facility] 04-20-2023 10:59-0400 Body temperature 96.91 [degF] [facility] Work Phone: [facility] 04-20-2023 10:59-0400 Body weight 78.4 kg [facility] Work Phone: [facility] 04-20-2023 10:59-0400 Diastolic blood pressure 57 mm[Hg] [facility] Work Phone: [facility] 04-20-2023 10:59-0400 Heart rate 69 /min [facility] Work Phone: [facility] 04-20-2023 10:59-0400 SaO2% (BldA) [Mass fraction] 98 % [facility] Work Phone: [facility] 04-20-2023 10:59-0400 Systolic blood pressure 132 mm[Hg] [facility] Work Phone: [facility] 04-20-2023 10:17-0400 Body height 162.6 cm [facility] Work Phone: [facility] 04-20-2023 10:17-0400 Body temperature 96.91 [degF] [facility] Work Phone: [facility] 04-20-2023 10:17-0400 Body weight 78.38 kg [facility] Work Phone: [facility] 04-20-2023 10:17-0400 Diastolic blood pressure 57 mm[Hg] [facility] Work Phone: [facility] 04-20-2023 10:17-0400 Heart rate 69 /min [facility] Work Phone: [facility] 04-20-2023 10:17-0400 SaO2% (BldA) [Mass fraction] 98 % [facility] Work Phone: [facility] 04-20-2023 10:17-0400 Systolic blood pressure 132 mm[Hg] [facility] Work Phone: [facility] 04-20-2023 09:28-0400 Body height 163.[address] [facility] 04-20-2023 09:28-0400 Body weight 78.[address] [facility] 04-06-2023 15:56-[address] BERNADINE GRIDER MD [facility] 04-06-2023 15:56-[address] BERNADINE Anton MD [facility] 04-06-2023 15:56-0400 Body temperature 98.24 [degF] DR BERNADINE GRIDER MD [facility] 04-06-2023 15:56-0400 Body weight 79.[address] BERNADINE GRIDER MD [facility] 04-06-2023 15:56-0400 Diastolic Blood Pressure Non-Invasive [address] BERNADINE GRIDER MD [facility] 04-06-2023 15:56-0400 Heart rate 72 /min DR BERNADINE GRIDER MD [facility] 04-06-2023 15:56-0400 Respiratory rate 18 /min DR BERNADINE GRIDER MD [facility] 04-06-2023 15:56-0400 Systolic Blood Pressure Non-Invasive [address] BERNADINE GRIDER MD [facility] 11-09-2022 07:33-0400 Body height 162.[address] Bell Maher Work Phone: [facility] 11-09-2022 07:33-0400 Body weight 80.[address] Bell Maher Work Phone: [facility] 11-06-2022 07:15-0400 Body mass index (BMI) [Ratio] 30.4 kg/m2 Dr. Bell Maher Work Phone: [facility] 11-05-2022 09:08-0400 Body mass index (BMI) [Ratio] 30.4 kg/m2 Dr. Bell Maher Work Phone: [facility] 11-05-2022 09:08-0400 Body weight 80.[address] Bell Maher Work Phone: [facility] 11-05-2022 09:08-0400 Diastolic blood pressure 70 mm[Hg] Dr. Bell Maher Work Phone: [facility] 11-05-2022 09:08-0400 Respiratory rate 16 /min Dr. Bell Maher Work Phone: [facility] 11-05-2022 09:08-0400 Systolic blood pressure 118 mm[Hg] Dr. Bell Maher Work Phone: [facility] 08-06-2022 13:13-0500 Body temperature 97.8 [degF] Dr. Bell Maher Work Phone: [facility] 08-06-2022 13:13-0500 Diastolic blood pressure 42 mm[Hg] Dr. Bell Maher Work Phone: [facility] 08-06-2022 13:13-0500 Heart rate 64 /min Dr. Bell Maher Work Phone: [facility] 08-06-2022 13:13-0500 Respiratory rate 18 /min Dr. Bell Maher Work Phone: [facility] 08-06-2022 13:13-0500 SaO2% (BldA) [Mass fraction] 98 % Dr. Bell Maher Work Phone: [facility] 08-06-2022 13:13-0500 Systolic blood pressure 138 mm[Hg] Dr. Bell Maher Work Phone: [facility] 08-06-2022 08:07-0500 Body height 162.[address] Bell Maher Work Phone: [facility] Work Phone: 08-06-2022 08:07-0500 Body mass index (BMI) [Ratio] 29.5 kg/m2 Dr. Bell Maher Work Phone: [facility] 08-06-2022 08:07-0500 Body weight [address] Bell Maher Work Phone: [facility] 07-09-2022 13:21-0500 Body mass index (BMI) [Ratio] 29.3 kg/m2 Dr. Bell Maher Work Phone: [facility] Work Phone: 07-09-2022 13:21-0500 Body weight 77.[address] Bell Maher Work Phone: [facility] Work Phone: 07-09-2022 13:21-0500 Diastolic blood pressure 78 mm[Hg] Dr. Bell Maher Work Phone: [facility] Work Phone: 07-09-2022 13:21-0500 Respiratory rate 18 /min Dr. Bell Maher Work Phone: [facility] Work Phone: 07-09-2022 13:21-0500 Systolic blood pressure 138 mm[Hg] Dr. Bell Maher Work Phone: [facility] Work Phone: 06-16-2022 10:35-0400 Body temperature 96.7 [degF] Dr. Bell Maher Work Phone: [facility] Work Phone: 06-16-2022 10:35-0400 Diastolic blood pressure 81 mm[Hg] Dr. Bell Maher Work Phone: [facility] Work Phone: 06-16-2022 10:35-0400 Heart rate 74 /min Dr. Bell Maher Work Phone: [facility] Work Phone: 06-16-2022 10:35-0400 Respiratory rate 16 /min Dr. Bell Maher Work Phone: [facility] Work Phone: 06-16-2022 10:35-0400 SaO2% (BldA) [Mass fraction] 92 % Dr. Bell Maher Work Phone: [facility] Work Phone: 06-16-2022 10:35-0400 Systolic blood pressure 146 mm[Hg] Dr. Bell Maher Work Phone: [facility] Work Phone: 06-16-2022 06:12-0400 Body mass index (BMI) [Ratio] 29.5 kg/m2 Dr. Bell Maher Work Phone: [facility] Work Phone: 06-16-2022 06:12-0400 Body weight [address] Bell Maher Work Phone: [facility] Work Phone: 04-30-2022 13:31-0400 Body mass index (BMI) [Ratio] 31.2 kg/m2 Dr. Bell Maher Work Phone: [facility] Work Phone: 04-30-2022 13:31-0400 Body temperature 97.3 [degF] Dr. Bell Maher Work Phone: [facility] Work Phone: 04-30-2022 13:31-0400 Body weight 82.[address] Bell Maher Work Phone: [facility] Work Phone: 04-30-2022 13:31-0400 Diastolic blood pressure 73 mm[Hg] Dr. Bell Maher Work Phone: [facility] Work Phone: 04-30-2022 13:31-0400 Heart rate 66 /min Dr. Bell Maher Work Phone: [facility] Work Phone: 04-30-2022 13:31-0400 Respiratory rate 18 /min Dr. Bell Maher Work Phone: [facility] Work Phone: 04-30-2022 13:31-0400 SaO2% (BldA) [Mass fraction] 100 % Dr. Bell Maher Work Phone: [facility] Work Phone: 04-30-2022 13:31-0400 Systolic blood pressure 118 mm[Hg] Dr. Bell Maher Work Phone: [facility] Work Phone: 03-27-2022 11:07-0400 Body temperature 98.24 [degF] SAI FULLER MD [address] [place] [address] 03-27-2022 11:07-0400 Diastolic blood pressure 63 mm[Hg] SAI FULLER MD [address] [place] [address] 03-27-2022 11:07-0400 Heart rate 76 /min SAI FULLER MD [address] 03-27-2022 11:07-0400 Mean blood pressure 85 mm[Hg] SAI FULLER MD [address] 03-27-2022 11:07-0400 Reason For Taking VItal Signs SAI FULLER MD [address] 03-27-2022 11:07-0400 Respiratory rate 18 /min SAI FULLER MD [address] 03-27-2022 11:07-0400 Systolic blood pressure 129 mm[Hg] SAI FULLER MD [address] 03-27-2022 08:25-0400 Body temperature 98.24 [degF] SAI FULLER MD [address] 03-27-2022 08:25-0400 Diastolic blood pressure 67 mm[Hg] SAI FULLER MD [address] 03-27-2022 08:25-0400 Heart rate 74 /min SAI FULLER MD [address] 03-27-2022 08:25-0400 Mean blood pressure 89 mm[Hg] SAI FULLER MD [address] [place] [address] 03-27-2022 08:25-0400 Respiratory rate 16 /min SAI FULLER MD [address] 03-27-2022 08:25-0400 Systolic blood pressure 134 mm[Hg] SAI FULLER MD [facility] 03-26-2022 23:29-0400 Body temperature 98.06 [degF] SAI FULLER MD [address] [place] [address] 03-26-2022 23:29-0400 Diastolic blood pressure 66 mm[Hg] SAI FULLER MD [address] [place] [address] 03-26-2022 23:29-0400 Heart rate 84 /min SAI FULLER MD [facility] 03-26-2022 23:29-0400 Mean blood pressure 87 mm[Hg] SAI FULLER MD [address] [place] [address] 03-26-2022 23:29-0400 Respiratory rate 18 /min SAI FULLER MD [address] [place] [address] 03-26-2022 23:29-0400 Systolic blood pressure 129 mm[Hg] SAI FULLER MD [address] [place] [address] 03-26-2022 18:49-0400 Heart rate 83 /min SAI FULLER MD [address] [place] [address] 03-26-2022 15:52-0400 Reason For Taking VItal Signs SAI FULLER MD [facility] 03-26-2022 14:19-0400 Heart rate 79 /min SAI FULLER MD [facility] 03-26-2022 14:19-0400 Reason For Taking VItal Signs SAI FULLER MD [facility] 03-26-2022 07:48-0400 Heart rate 93 /min SAI FULLER MD [address] [place] [address] 03-26-2022 04:09-0400 Heart rate 98 /min SAI FULLER MD [address] [place] [address] 03-25-2022 22:38-0400 Heart rate 106 /min SAI FULLER MD [address] [place] [address] 03-25-2022 03:50-0400 Body temperature 99.68 [degF] SAI FULLER MD [facility] 03-24-2022 23:29-0400 Body height 162.6 cm SAI FULLER MD [facility] 03-24-2022 23:29-0400 Body weight 81.8 kg SAI FULLER MD [facility] 03-24-2022 23:29-0400 Body weight 30.94 kg/m2 SAI FULLER MD [facility] 03-04-2022 14:28-0400 Body mass index (BMI) [Ratio] 31.4 kg/m2 Dr. Bell Maher Work Phone: [facility] Work Phone: 03-04-2022 14:28-0400 Body temperature 97.6 [degF] Dr. Bell Maher Work Phone: [facility] Work Phone: 03-04-2022 14:28-0400 Body weight [address] Bell Maher Work Phone: [facility] Work Phone: 03-04-2022 14:28-0400 Diastolic blood pressure 71 mm[Hg] Dr. Bell Maher Work Phone: [facility] Work Phone: 03-04-2022 14:28-0400 Heart rate 65 /min Dr. Bell Maher Work Phone: [facility] Work Phone: 03-04-2022 14:28-0400 Respiratory rate 17 /min Dr. Bell Maher Work Phone: [facility] Work Phone: 03-04-2022 14:28-0400 SaO2% (BldA) [Mass fraction] 100 % Dr. Bell Maher Work Phone: [facility] Work Phone: 03-04-2022 14:28-0400 Systolic blood pressure 117 mm[Hg] Dr. Bell Maher Work Phone: [facility] Work Phone: 02-02-2022 18:52-0400 Body temperature 97.52 [degF] LEON LAN MD [facility] 02-02-2022 18:52-0400 Diastolic Blood Pressure NBP 55 1 LEON LAN MD [facility] 02-02-2022 18:52-0400 Heart rate 76 /min LEON LAN MD [facility] 02-02-2022 18:52-0400 Mean blood pressure 77 mm[Hg] LEON LAN MD [facility] 02-02-2022 18:52-0400 Reason For Taking VItal Signs LEON LAN MD [facility] 02-02-2022 18:52-0400 Respiratory rate 18 /min LEON LAN MD [facility] 02-02-2022 18:52-0400 Systolic Blood Pressure NBP 139 1 LEON LAN MD [facility] 02-02-2022 17:00-0400 Diastolic Blood Pressure NBP 101 1 LEON LAN MD [facility] 02-02-2022 17:00-0400 Heart rate 73 /min LEON LAN MD [facility] 02-02-2022 17:00-0400 Mean blood pressure 108 mm[Hg] LEON LAN MD [facility] 02-02-2022 17:00-0400 Systolic Blood Pressure NBP 115 1 LEON LAN MD [facility] 02-02-2022 16:45-0400 Diastolic Blood Pressure NBP 54 1 LEON LAN MD [facility] 02-02-2022 16:45-0400 Heart rate 77 /min LEON LAN MD [facility] 02-02-2022 16:45-0400 Mean blood pressure 76 mm[Hg] LEON LAN MD [facility] 02-02-2022 16:45-0400 Reason For Taking VItal Signs LEON LAN MD [facility] 02-02-2022 16:45-0400 Respiratory rate 18 /min LEON LAN MD [facility] 02-02-2022 16:45-0400 Systolic Blood Pressure NBP 126 1 LEON LAN MD [facility] 02-02-2022 15:53-0400 Body temperature 97.88 [degF] LEON LAN MD [facility] 02-02-2022 10:37-0400 Body temperature 97.52 [degF] LEON LAN MD [facility] 01-31-2022 18:27-0400 Diastolic blood pressure 54 mm[Hg] LEON LAN MD [facility] 01-31-2022 18:27-0400 Mean blood pressure 72 mm[Hg] LEON LAN MD [facility] 01-31-2022 18:27-0400 Systolic blood pressure 109 mm[Hg] LEON LAN MD [facility] 01-31-2022 14:57-0400 Diastolic blood pressure 42 mm[Hg] LEON LAN MD [facility] 01-31-2022 14:57-0400 Mean blood pressure 64 mm[Hg] LEON LAN MD [facility] 01-31-2022 14:57-0400 Systolic blood pressure 108 mm[Hg] LEON LAN MD [facility] 01-31-2022 10:21-0400 Diastolic blood pressure 61 mm[Hg] LEON LAN MD [facility] 01-31-2022 10:21-0400 Mean blood pressure 82 mm[Hg] LEON LAN MD [facility] 01-31-2022 10:21-0400 Signs/Symptoms Transfusion Reaction LEON LAN MD [facility] 01-31-2022 10:21-0400 Systolic blood pressure 123 mm[Hg] LEON LAN MD [facility] 01-31-2022 09:21-0400 Heart rate 70 /min LEON LAN MD [facility] 01-31-2022 09:19-0400 Signs/Symptoms Transfusion Reaction No LEON LAN MD [facility] 01-31-2022 09:09-0400 Heart rate 70 /min LEON LAN MD [facility] 01-31-2022 08:38-0400 Heart rate 69 /min LEON LAN MD [facility] 01-29-2022 20:30-0400 Signs/Symptoms Transfusion Reaction LEON LAN MD [facility] 01-29-2022 19:35-0400 Body temperature 97.47 [degF] LEON LAN MD [facility] 01-29-2022 19:30-0400 Body temperature 97.75 [degF] LEON LAN MD [facility] 01-29-2022 19:25-0400 Body temperature 97.81 [degF] LEON LAN MD [facility] 01-28-2022 10:48-0400 Heart rate 78 /min LEON LAN MD [facility] 01-26-2022 14:15-0400 Body weight 89.8 kg LEON LAN MD [facility] 01-26-2022 10:44-0400 Body weight 90.6 kg LEON LAN MD [facility] 01-24-2022 16:30-0400 Body weight 85.8 kg LEON LAN MD [facility] 01-24-2022 15:21-0400 Inspected Blood Donor Unit Appearance LEON LAN MD [facility] 01-24-2022 15:21-0400 Transfusion Documentation Started/Paper LEON LAN MD [facility] 01-24-2022 04:45-0400 Body height 162.6 cm LEON LAN MD [facility] 01-24-2022 04:45-0400 Body weight 31.62 kg/m2 LEON LAN MD [facility] 01-19-2022 12:50-0400 Body height 162.[address] Bell Maher Work Phone: [facility] Work Phone: 01-19-2022 12:50-0400 Body mass index (BMI) [Ratio] 31.9 kg/m2 Dr. Bell Maher Work Phone: [facility] Work Phone: 01-19-2022 12:50-0400 Body temperature 98.8 [degF] Dr. Bell Maher Work Phone: [facility] Work Phone: 01-19-2022 12:50-0400 Body weight 84.[address] Bell Maher Work Phone: [facility] Work Phone: 01-19-2022 12:50-0400 Diastolic blood pressure 53 mm[Hg] Dr. Bell Maher Work Phone: [facility] Work Phone: 01-19-2022 12:50-0400 Heart rate 87 /min Dr. Bell Maher Work Phone: [facility] Work Phone: 01-19-2022 12:50-0400 Respiratory rate 16 /min Dr. Bell Maher Work Phone: [facility] Work Phone: 01-19-2022 12:50-0400 SaO2% (BldA) [Mass fraction] 97 % Dr. Bell Maher Work Phone: [facility] Work Phone: 01-19-2022 12:50-0400 Systolic blood pressure 124 mm[Hg] Dr. Bell Maher Work Phone: [facility] Work Phone: 01-01-2022 11:53-0400 Body temperature 96.9 [degF] Dr. Bell Maher Work Phone: [facility] Work Phone: 01-01-2022 11:53-0400 Diastolic blood pressure 51 mm[Hg] Dr. Bell Maher Work Phone: [facility] Work Phone: 01-01-2022 11:53-0400 Heart rate 71 /min Dr. Bell Maher Work Phone: [facility] Work Phone: 01-01-2022 11:53-0400 Respiratory rate 18 /min Dr. Bell Maher Work Phone: [facility] Work Phone: 01-01-2022 11:53-0400 SaO2% (BldA) [Mass fraction] 100 % Dr. Bell Maher Work Phone: [facility] Work Phone: 01-01-2022 11:53-0400 Systolic blood pressure 117 mm[Hg] Dr. Bell Maher Work Phone: [facility] Work Phone: 12-09-2021 12:35-0400 Body mass index (BMI) [Ratio] 31.7 kg/m2 Dr. Bell Maher Work Phone: [facility] Work Phone: 12-09-2021 12:35-0400 Body temperature 97.5 [degF] Dr. Bell Maher Work Phone: [facility] Work Phone: 12-09-2021 12:35-0400 Body weight 83.[address] Bell Maher Work Phone: [facility] Work Phone: 12-09-2021 12:35-0400 Diastolic blood pressure 71 mm[Hg] Dr. Bell Maher Work Phone: [facility] Work Phone: 12-09-2021 12:35-0400 Heart rate 79 /min Dr. Bell Maher Work Phone: [facility] Work Phone: 12-09-2021 12:35-0400 Respiratory rate 18 /min Dr. Bell Maher Work Phone: [facility] Work Phone: 12-09-2021 12:35-0400 SaO2% (BldA) [Mass fraction] 100 % Dr. Bell Maher Work Phone: [facility] Work Phone: 12-09-2021 12:35-0400 Systolic blood pressure 146 mm[Hg] Dr. Bell Maher Work Phone: [facility] Work Phone: 12-09-2021 12:35-0400 Body mass index (BMI) [Ratio] 31.7 kg/m2 Dr. Bell Maher Work Phone: [facility] Work Phone: 12-09-2021 12:35-0400 Body temperature 97.5 [degF] Dr. Bell Maher Work Phone: [facility] Work Phone: 12-09-2021 12:35-0400 Body weight 83.[address] Bell Maher Work Phone: [facility] Work Phone: 12-09-2021 12:35-0400 Diastolic blood pressure 71 mm[Hg] Dr. Bell Maher Work Phone: [facility] Work Phone: 12-09-2021 12:35-0400 Heart rate 79 /min Dr. Bell Maher Work Phone: [facility] Work Phone: 12-09-2021 12:35-0400 Respiratory rate 18 /min Dr. Bell Maher Work Phone: [facility] Work Phone: 12-09-2021 12:35-0400 SaO2% (BldA) [Mass fraction] 100 % Dr. Bell Maher Work Phone: [facility] Work Phone: 12-09-2021 12:35-0400 Systolic blood pressure 146 mm[Hg] Dr. Bell Maher Work Phone: [facility] Work Phone: 11-18-2021 13:22-0400 Body mass index (BMI) [Ratio] 35.2 kg/m2 Dr. Bell Maher Work Phone: [facility] Work Phone: 11-18-2021 13:22-0400 Body weight 81.[address] Bell Maher Work Phone: [facility] Work Phone: 11-18-2021 13:22-0400 Diastolic blood pressure 70 mm[Hg] Dr. Bell Maher Work Phone: [facility] Work Phone: 11-18-2021 13:22-0400 Respiratory rate 18 /min Dr. Bell Maher Work Phone: [facility] Work Phone: 11-18-2021 13:22-0400 Systolic blood pressure 122 mm[Hg] Dr. Bell Maher Work Phone: [facility] Work Phone: 10-27-2021 13:47-0500 Diastolic blood pressure 56 mm[Hg] Dr. Bell Maher Work Phone: [facility] Work Phone: 10-27-2021 13:47-0500 Heart rate 70 /min Dr. Bell Maher Work Phone: [facility] Work Phone: 10-27-2021 13:47-0500 Respiratory rate 14 /min Dr. Bell Maher Work Phone: [facility] Work Phone: 10-27-2021 13:47-0500 SaO2% (BldA) [Mass fraction] 98 % Dr. Bell Maher Work Phone: [facility] Work Phone: 10-27-2021 13:47-0500 Systolic blood pressure 129 mm[Hg] Dr. Bell Maher Work Phone: [facility] Work Phone: 10-27-2021 11:52-0500 Body mass index (BMI) [Ratio] 37.3 kg/m2 Dr. Bell Maher Work Phone: [facility] Work Phone: 10-27-2021 11:52-0500 Body temperature 99.7 [degF] Dr. Bell Maher Work Phone: [facility] Work Phone: 10-27-2021 11:52-0500 Body weight 86.[address] Bell Maher Work Phone: [facility] Work Phone: 10-21-2021 11:18-0500 Body temperature 97.4 [degF] Dr. Bell Maher Work Phone: [facility] Work Phone: 10-21-2021 11:18-0500 Diastolic blood pressure 45 mm[Hg] Dr. Bell Maher Work Phone: [facility] Work Phone: 10-21-2021 11:18-0500 Heart rate 64 /min Dr. Bell Maher Work Phone: [facility] Work Phone: 10-21-2021 11:18-0500 Respiratory rate 18 /min Dr. Bell Maher Work Phone: [facility] Work Phone: 10-21-2021 11:18-0500 SaO2% (BldA) [Mass fraction] 98 % Dr. Bell Maher Work Phone: [facility] Work Phone: 10-21-2021 11:18-0500 Systolic blood pressure 109 mm[Hg] Dr. Bell Maher Work Phone: [facility] Work Phone: 10-21-2021 07:41-0500 Body mass index (BMI) [Ratio] 31.4 kg/m2 Dr. Bell Maher Work Phone: [facility] Work Phone: 10-21-2021 07:41-0500 Body weight [address] Bell Maher Work Phone: [facility] Work Phone: 10-10-2021 08:04-0500 Body mass index (BMI) [Ratio] 31.4 kg/m2 Dr. Bell Maher Work Phone: [facility] Work Phone: 10-10-2021 08:04-0500 Body temperature 98.2 [degF] Dr. Bell Maher Work Phone: [facility] Work Phone: 10-10-2021 08:04-0500 Body weight 83.[address] Bell Maher Work Phone: [facility] Work Phone: 10-10-2021 08:04-0500 Diastolic blood pressure 74 mm[Hg] Dr. Bell Maher Work Phone: [facility] Work Phone: 10-10-2021 08:04-0500 Heart rate 92 /min Dr. Bell Maher Work Phone: [facility] Work Phone: 10-10-2021 08:04-0500 Respiratory rate 18 /min Dr. Bell Maher Work Phone: [facility] Work Phone: 10-10-2021 08:04-0500 SaO2% (BldA) [Mass fraction] 100 % Dr. Bell Maher Work Phone: [facility] Work Phone: 10-10-2021 08:04-0500 Systolic blood pressure 127 mm[Hg] Dr. Bell Maher Work Phone: [facility] Work Phone: 10-23-2017 09:26-0500 BP Diastolic 96 mm[Hg] [facility] 10-23-2017 09:26-0500 BP Systolic 158 mm[Hg] [facility] 10-23-2017 09:26-0500 Pulse (Heart Rate) 62 /min [facility] 10-23-2017 09:26-0500 Pulse Oximetry 100 % [facility] 10-23-2017 09:26-0500 Respiratory Rate 16 /min [facility] 10-23-2017 05:54-0500 BMI (Body Mass Index) 29.01 kg/m2 Gilberto [facility] 10-23-2017 05:54-0500 Body Temperature 97.7 [degF] [facility] 10-23-2017 05:54-0500 Height 162.6 cm Gilberto [facility] 10-23-2017 05:54-0500 Weight 76.66 kg Gilberto [facility] Encounters Encounter Date Encounter Type Care Provider Facility Start: 04-04-2025 End: 04-16-2025 Evaluation and management of inpatient ONEAL BHATIA MD [facility] Start: 04-04-2025 End: 04-04-2025 Emergency department patient visit BELL JAMES [facility] Start: 03-26-2025 ambulatory BELL MAHER MD Faci lity:A Start: 03-07-2025 End: 04-16-2025 ambulatory BELL MAHER MD Facility:[facility] Start: 03-07-2025 End: 03-07-2025 Patient encounter procedure BELL MAHER MD [facility] Start: 02-19-2025 End: 02-19-2025 Evaluation and management of inpatient TRENA KOLETI Facility:[id number] Start: 02-17-2025 End: 02-21-2025 [id number] Start: 02-17-2025 ambulatory CHESTER KWONG MD Facility :A Start: 02-17-2025 End: 02-17-2025 Emergency department patient visit BELL MAHER [facility] Start: 02-14-2025 End: 02-18-2025 ambulatory BELL MAHER MD Facility:[facility] Start: 02-14-2025 End: 02-18-2025 Outreach Lab BLEL MAHER MD 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 Start: 12-20-2024 End: 12-24-2024 ambulatory BELL MAHER MD Facility:[facility] Start: 12-20-2024 End: 12-24-2024 Outreach Lab BELL MAHER MD [facility] Start: 12-15-2024 End: 12-15-2024 [facility] Start: 12-15-2024 End: 12-15-2024 Encounter for general adult medical examination without abnormal findings MELISSA CURRIE [facility] Start: 12-06-2024 End: 12-06-2024 ambulatory BELL MAHER MD Facility:[facility] Start: 12-05-2024 End: 12-05-[address] Bell Maher MD Work Phone: [facility] Work Phone: Start: 12-05-2024 End: 12-05-[address] Alden Hernández MD -Cardiovascular Services Work Phone: Start: 12-05-2024 End: 12-05-2024 ambulatory Bell Maher Facility:[facility] Start: 11-03-2024 End: 11-03-2024 ambulatory STACEY RODRIGUEZ MD Facility:A Start: 11-03-2024 End: 11-03-2024 Patient encounter procedure STACEY RODRIGUEZ MD [facility] Start: 10-23-2024 End: 10-23-2024 ambulatory STACEY RODRIGUEZ MD Facility:A Start: 10-23-2024 End: 10-23-2024 Patient encounter procedure STACEY RODRIGUEZ MD [facility] Start: 09-26-2024 End: 09-26-2024 ambulatory BELL MAHER MD Facility:[facility] Start: 09-26-2024 End: 09-26-2024 Patient encounter procedure BELL MAHER MD [facility] Start: 09-07-2024 End: 09-07-[address] Melissa Currie MD -Medical Out Work Phone: Start: 09-07-2024 End: 09-07-2024 ambulatory Melissa Currie Facility:[facility] Start: 09-06-2024 End: 09-06-2024 ambulatory BELL MAHER MD Facility:[facility] Start: 09-06-2024 End: 09-06-2024 Patient encounter procedure BELL MAHER MD [facility] Start: 08-18-2024 Non-patient / Non-visit Dr. Jesse Montgomery [facility] Work Phone: Start: 08-17-2024 Non-patient / Non-visit Dr. Jesse Montgomery [facility] Work Phone: Start: 08-17-2024 End: 08-18-2024 ambulatory Daniele Walls Facility:[facility] Start: 08-17-2024 End: 08-18-2024 Evaluation and management of inpatient Dr. Jesse [facility] Work Phone: Start: 06-07-2024 End: 06-11-2024 ambulatory BELL MAHER MD Facility:[facility] Start: 06-07-2024 End: 06-11-2024 Outreach Lab BELL MAHER MD [facility] Start: 03-02-2024 Encounter for preprocedural cardiovascular examination [facility] Start: 03-01-2024 End: 03-05-2024 ambulatory BELL MAHER MD Facility:B Start: 03-01-2024 End: 03-05-2024 Outreach Lab BELL MAHER MD [facility] Start: 02-11-2024 End: 02-11-2024 ambulatory Bell Maher Facility:[facility] Start: 12-06-2023 End: 12-06-2023 ambulatory [facility] Work Phone: Start: 12-06-2023 End: 12-06-2023 Patient encounter procedure [facility] Work Phone: Start: 11-29-2023 End: 11-29-2023 ambulatory BELL MAHER MD Facility:[facility] Start: 11-29-2023 End: 11-29-2023 Patient encounter procedure BELL MAHER MD [facility] Start: 11-05-2023 End: 11-05-2023 ambulatory PEÑA RODRIGEZ Facility:[facility] Start: 11-05-2023 End: 11-05-2023 Patient encounter procedure PEÑA RODRIGEZ MD 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 Start: 04-20-2023 End: 04-20-2023 Subsequent hospital visit by physician Ct 2 Main Qb (I-Stat) Radiology Comment on above: Chronic renal failur e, stage 5 (HCC) [N18.5] Start: 04-20-2023 End: 04-20-[address] Nutrition Therapy Comment on above: Assessment; Patient Education Start: 04-20-2023 End: 04-20-2023 Patient encounter procedure Pre Tx Group Education Work Phone: Transplant Center Comment on above: Pre-transplant evalu ation for kidney transplant (Primary Dx) ESRD on dialysis (HC C) (Primary Dx); Pre-transplant evaluation for ESRD (end stage renal disease); PAD (peripheral artery disease) (HCC); Frailty Pre-transplant evalu ation for ESRD (end stage renal disease) (Primary Dx) ESRD on dialysis (HC C) (Primary Dx); Hypertension, unspecified type; PVD (peripheral vascular disease) ([facility]); Coronary artery disease involving [place] coronary artery of [place] heart without angina pectoris Start: 04-20-2023 End: 04-20-2023 Patient encounter status [facility] Work Phone: [facility] Start: 04-07-2023 End: 04-12-2023 ambulatory BELL MAHER MD Facility:B Start: 04-06-2023 End: 04-06-2023 Emergency department patient visit DR BERNADINE GRIDER MD [facility] Start: 04-06-2023 ambulatory BELL MAHER MD Faci lity:B Start: 04-01-2023 End: 04-01-2023 ambulatory PAYAL TELLO MD Facility:B Start: 04-01-2023 End: 04-01-2023 Patient encounter procedure BELL MAHER MD [facility] Start: 01-22-2023 End: 01-22-2023 ambulatory [facility] Work Phone: Start: 01-22-2023 End: 01-22-2023 Patient encounter procedure [facility] Work Phone: Start: 11-09-2022 Non-patient / Non-visit Dr. Jorge Work Phone: [facility] Start: 11-09-2022 End: 11-09-2022 Admission to same day surgery center Dr. Bell Maher Work Phone: [facility]-Reservoir Engineering Consultant/Special Procedures Start: 11-09-2022 End: 11-09-[address] Bell Maher Work Phone: [facility] Work Phone: Start: 11-05-2022 End: 11-05-[address] Bell Maher Work Phone: [facility] Work Phone: Start: 11-05-2022 End: 11-05-[address] Bell Maher Work Phone: [facility] Start: 09-23-2022 End: 09-23-[address] Bell Maher Work Phone: [facility] Start: 09-10-2022 End: 09-10-[address] Bell Maher Work Phone: [facility] Start: 08-29-2022 End: 08-29-2022 Patient encounter procedure BELL MAHER MD [facility] Start: 08-20-2022 End: 08-20-[address] Bell Maher Work Phone: [facility] Start: 08-12-2022 End: 08-12-[address] Bell Maher Work Phone: [facility] Start: 08-06-2022 Non-patient / Non-visit Dr. Jorge Work Phone: [facility] Start: 08-06-2022 End: 08-06-2022 Admission to same day surgery center [facility] Start: 08-06-2022 End: 08-06-[address] Bell Maher Work Phone: [facility] Work Phone: Start: 07-24-2022 End: 07-24-2022 Patient encounter procedure BELL MAHER MD [facility] Start: 07-09-2022 End: 07-09-[address] Bell Maher Work Phone: [facility] Start: 06-24-2022 End: 06-24-[address] Bell Maher Work Phone: [facility] Start: 06-16-2022 Non-patient / Non-visit Dr. Jorge Work Phone: [facility] Start: 06-16-2022 End: 06-16-2022 Admission to same day surgery center Dr[facility] Bell [facility] Start: 06-01-2022 Refill Angelita Lamas MD Work Phone: Hematology/Oncology Comment on above: Refill Request Start: 04-30-2022 End: 04-30-[address] Bell Maher Work Phone: [facility] Start: 04-10-2022 End: 04-14-2022 Outreach Lab BELL MAHER MD [facility] Start: 04-02-2022 End: 04-02-[address] [facility] Start: 03-24-2022 End: 03-27-2022 Evaluation and management of inpatient SAI FULLER MD [facility] Start: 03-20-2022 End: 03-20-[address] Bell Maher Work Phone: [facility] Start: 03-04-2022 End: 03-04-[address] Bell Maher Work Phone: [facility] Start: 02-25-2022 Telephone encounter Angelita Lamas MD Work Phone: Hematology/Oncology Comment on above: Patient Update Start: 02-11-2022 End: 02-11-2022 Emergency department patient visit RUFUS MENJIVAR MD [facility] Start: 02-11-2022 End: 02-11-[address] Bell Maher Work Phone: [facility] Start: 02-04-2022 End: 02-04-[address] Bell Maher Work Phone: [facility] Start: 01-24-2022 End: 02-02-2022 Evaluation and management of inpatient LEON LAN MD [facility] Start: 01-22-2022 End: 01-22-[address] Bell Maher Work Phone: [facility] Start: 01-19-2022 End: 01-19-2022 Emergency department patient visit Dr. Bell Maher Work Phone: [facility]Emergency Department Start: 01-16-2022 End: 01-16-2022 Patient encounter procedure PEÑA RODRIGEZ MD [facility] Start: 01-14-2022 End: 01-14-[address] Bell Maher Work Phone: [facility] Start: 01-12-2022 End: 01-12-[address] Bell Maher Work Phone: [facility] Start: 01-07-2022 End: 01-07-[address] Bell Maher Work Phone: [facility] Start: 01-01-2022 Non-patient / Non-visit Dr. Jorge Work Phone: [facility] Start: 01-01-2022 End: 01-01-2022 Admission to same day surgery center Dr[facility] Bell [facility]her [facility] Start: 12-09-2021 End: 12-09-[address] Bell Maher Work Phone: [facility] Start: 11-18-2021 End: 11-18-[address] Bell Maher Work Phone: [facility] Start: 11-13-2021 End: 11-13-2021 Patient encounter procedure BELL MAHER MD [facility] Start: 11-04-2021 End: 11-04-2021 Patient encounter procedure BELL MAHER MD [facility] Start: 10-28-2021 End: 10-28-[address] Bell Maher Work Phone: [facility] Start: 10-27-2021 End: 10-27-[address] MELISSA CURRIE MD [facility] Start: 10-27-2021 End: 10-27-2021 Emergency department patient visit Dr. Bell Maher Work Phone: [facility] Start: 10-21-2021 Non-patient / Non-visit Dr. Jorge Work Phone: [facility] Start: 10-21-2021 End: 10-21-2021 Admission to same day surgery center Dr. Bell Maher [facility] Start: 10-20-2021 Non-patient / Non-visit Dr. Jorge Work Phone: [facility] Start: 10-10-2021 End: 10-10-[address] Bell Maher Work Phone: [facility] Start: 08-26-2021 End: 08-26-2021 Patient encounter procedure BELL MAHER MD [facility] Start: 07-31-2021 End: 07-31-2021 Patient encounter procedure BELL MAHER MD [facility] Start: 06-05-2021 End: 06-05-2021 Patient encounter procedure BELL MAHER MD [facility] Start: 09-30-2020 End: 09-30-2020 Orders Only Shilpa Ghosh Work Phone: [facility] Start: 09-18-2019 Emergency department patient visit JOSEPH QUEVEDO [facility] Start: 04-26-2018 End: 04-26-2018 Emergency department patient visit LUIS MIGUEL CHASE Facility:[facility] Start: 03-06-2018 End: 03-11-2018 Evaluation and management of inpatient BRIEN STEARNS Facility:[facility] Start: 03-02-2018 End: 03-02-2018 Emergency department patient visit DENISE RODRIGEZ [facility] Start: 10-23-2017 End: 10-23-2017 Emergency department patient visit GILBERTO OLIVEIRA [facility] Start: 10-23-2017 End: 10-23-2017 Emergency department patient visit Gilberto Oliveira Work Phone: [facility] Start: 07-23-2017 Patient encounter STACEY CERRATO Facility:[facility] Start: 06-24-2017 End: 07-22-2017 Patient encounter STACEY CERRATO Facility:[facility] Start: 03-05-2017 Evaluation and management of inpatient BELL MAHER Facility:[facility] Procedures Date Procedure Procedure Detail Performing Clinician Start: 01-06-2025 Urinalysis BELL MAHER Comment on above: Result Comment: URINALYSIS Performed By: #### [id number] #### [facility],[address] [place] [address] Start: 08-18-2024 X-ray of chest, PA and lateral views Dr. Bell Maher MD Work Phone: Start: 08-17-[address] Bell Maher MD Work Phone: Start: 08-17-[address] Bell Maher MD Work Phone: Start: 08-17-2024 Legionella pneumophila antigen assay Dr. Bell Maher MD Work Phone: Start: 08-17-[address] Bell Maher MD Work Phone: Start: 08-17-2024 SARS-CoV-2, Influenza & RSV (PCR) Dr. Luisito JAMES Work Phone: Start: 08-17-2024 Streptococcus pneumoniae antigen assay Dr. Bell Maher MD Work Phone: Start: 08-17-[address] Bell Maher MD Work Phone: Start: 08-17-2024 Plain chest X-ray Dr. Bell Maher MD Work Phone: Start: 12-06-2023 MRI of lumbar spine Start: 08-18-2023 Aerobic microbial culture Start: 08-18-2023 Anaerobic microbial culture Start: 08-18-2023 Investigation of transfusion reaction Start: 04-20-2023 Ct abdomen & pelvis w/o contrast material Linh Nunez APRN.[employer] RESEARCH ANALYST Work Phone: Start: 04-07-2023 End: 04-12-2023 Occupational therapy BELL AMHER MD Start: 08-06-2022 Creation of upper limb arteriovenous fistula Dr. Bell Maher Work Phone: Start: 08-06-2022 Fistula (disorder) BELL MAHER MD Comment on above: stage II right upper extremity brachial to basilic arteriovenous hemodialysis fistula creation Start: 02-27-2022 Echocardiography BELL MAHER MD Comment on above: 1. Left ventricle: The cavity size is no rmal. Wall thickness is normal. Systolic function is normal. The estimated ejection fraction is 55-60%. Wall motion is normal; there are no regional wall motion abnormalities. 2. Aortic valve: Thickening, consistent with sclerosis. 3. Mitral valve: There is mild, 1+ regurgitation. 4. Left atrium: The atrium is mildly dilated. 5. Right ventricle: The RV systolic pressure by Doppler is 27 mm Hg. 6. Pulmonic valve: There is trivial regurgitation. 7. Tricuspid valve: There is trivial regurgitation. Start: 01-19-2022 CT cervical spine without contrast Dr. Bell Maher Work Phone: Start: 01-19-2022 CT of head without contrast Dr. Bell moser Work Phone: Start: 12-31-2021 End: 12-31-[address] Bell Maher Work Phone: Start: 10-27-2021 Influenza Types A,B Direct FA (PRISCILLA) Dr. Bell Maher Work Phone: Start: 10-27-[address] Bell Maher Work Phone: Start: 10-27-2021 CT of head without contrast Dr. Bell moser Work Phone: Start: 03-07-2022 Plain chest X-ray Dr. Bell Maher Work Phone: Start: 10-21-2021 Creation of lower limb arteriovenous fistula Dr. Bell Maher Work Phone: Start: 10-20-2021 SARS-CoV-2 Antigen (Rapid) Dr. Bell peterson Work Phone: Start: 04-24-2021 Echocardiography ANA LUISA VILLANUEVA MD Comment on above: EF 55-60% Small memberanous VSD is noted . Start: 11-07-2020 Antibody screen Comment on above: Order Comment: Specimen Type: BLOOD SPEC IMEN Performed By: #### [id number] #### [facility] CLIA [id number] [address] [place] [address] Start: 10-21-2020 Lumbar (qualifier value) ANA LUISA VILLANUEVA MD Comment on above: All hardware removed from lumbar spine d /t infection Start: 03-15-2020 Echocardiography ANA LUISA VILLANUEVA MD Comment on above: EF 55-60% Start: 01-24-2020 Ankle brachial pressure index ANA LUISA VILLANUEVA MD Comment on above: Bilateral triphasic flow and may have fa lsely elevated BRANDO but 1.59 and 1.36 DBI 0.54 and 0.53 Start: 05-11-2018 Diagnostic endoscopic examination on colon ANA LUISA VILLANUEVA MD Comment on above: Dr. Tello-repeat 5 years due to hx of po lyps Start: 02-14-2018 Echocardiography ANA LUISA VILLANUEVA MD Start: 03-08-2017 Echocardiography ANA LUISA VILLANUEVA MD Start: 11-21-2015 Arterial pressure index (observable entity) ANA LUISA VILLANUEVA MD Comment on above: BLE-[facility]. Hernández [facility] Start: 08-31-2014 Excision of bunion ANA LUISA VILLANUEVA MD Comment on above: LEFT Start: 08-23-2014 Cardiac catheterization ANA LUISA VILLANUEVA MD Start: 08-23-2013 Cardiac catheterization ANA LUISA VILLANUEVA MD Comment on above: x1 Start: 06-02-2013 Foot structure (body structure) ANA LUISA VILLANUEVA MD Comment on above: Left foot bone spur and toe surgery Start: 09-07-2012 Adult depression screening assessment Angelita Lamas MD Work Phone: Start: 08-02-2012 Multiple gated acquisition scanning ANA LUISA VILLANUEVA MD Comment on above: Mild LV dysfunction, EF 49% Start: 08-23-2010 Entire iliac artery (body structure) ANA LUISA VILLANUEVA MD Comment on above: Bilateral common iliac artery stenting Start: 08-05-2010 Lumbar spinal fusion ANA LUISA VILLANUEVA MD Comment on above: L5 Start: 09-05-2009 Colonoscopy Angelita Lamas MD Work Phone: Start: 08-23-1994 Decompression of median nerve ANA LUISA VILLANUEVA MD Comment on above: Right Start: 08-23-1978 Hysterectomy ANA LUISA VILLANUEVA MD Comment on above: total abdominal hysterectomy bilateral s alpingo-oophorectomy-- heavy menses Arthroplasty of right shoulder ANA LUISA VILLANUEVA MD Coronary artery sten t (physical object) ANA LUISA VILLANUEVA MD Comment on above: x3 Discectomy of spine ANA LUISA VILLANUEVA MD Comment on above: L4-L5 Entire elbow region (body structure) ANA LUISA VILLANUEVA MD Comment on above: RIGHT Esophagogastroduodenoscopy K PRAVIN VILLANUEVA MD Comment on above: multiple History of hemiarthr oplasty of right hip ANA LUISA VILLANUEVA MD Lumpectomy of breast ANA LUISA VILLANUEVA MD Comment on above: BENIGN Right Percutaneous translu stanley coronary angioplasty PTCA - Percutaneous transluminal coronary angioplasty( Confirmed ) 6 ANA LUISA VILLANUEVA MD Comment on above: RCA.07/2006 AMD CX, 03/[address] Ervin Maher Work Phone: Plan of Treatment Date Care Activity Detail Author Start: 01-20-2032 Urine microalbumin profile [facility] Start: 09-07-2024 Administration of blood product [facility] Start: 09-07-2024 [facility] Start: 08-18-2024 Patient discharge [facility] Start: 08-18-2024 End: 08-18-2024 [facility] Start: 08-18-2024 Hemodialysis care [facility] Start: 08-17-2024 Following clinical pathway protocol [facility] Start: 08-17-2024 Ambulation without limitation [facility] Start: 08-17-2024 Assessment of risk of venous thromboembolism [facility] Start: 08-17-2024 Catheterization of vein [facility] Start: 08-17-2024 Inhalation therapy procedure [facility] Start: 08-17-2024 Insertion of catheter into peripheral vein [facility] Start: 08-17-2024 Providing care according to standard [facility] Start: 08-17-2024 Referral to smoking tobacco packing machine hand [facility] Start: 08-17-2024 [facility] Start: 08-17-2024 Admission procedure [facility] Start: 04-10-2024 DIABETES SCREEN DIABETES SCREEN [facility] Start: 04-10-2024 Diabetes Screening Diabetes Screening [facility] Start: 11-02-2023 Procedure [facility] Start: 08-23-2023 Advance Directive Discussion Advance Directive Discussion [facility] Start: 08-23-2023 Depression Assessment Depression Assessment [facility] Start: 04-23-2023 Covid-19 Vaccine ( season) Covid-19 Vaccine () [facility] Start: 04-23-2023 Influenza vaccination [facility] Start: 08-23-2022 ADVANCE DIRECTIVE DISCUSSION ADVANCE DIRECTIVE DISCUSSION [facility] Start: 08-23-2022 DEPRESSION ASSESSMENT DEPRESSION ASSESSMENT [facility] Start: 08-06-2022 Anesthesia vascular shunt/shunt revision ANESTH VASCULAR SHUNT SURG [facility] Start: 08-06-2022 Arven anast opn upr arm basilic vein trpos AV FUSE UPPR [facility] Start: 08-06-2022 Patient discharge [facility] Start: 06-16-2022 Anesthesia vascular shunt/shunt revision ANESTH VASCULAR SHUNT [facility] Work Phone: Start: 06-16-2022 Arteriovenous anastomosis open direct AV FUSION DIRECT ANY SITE [facility] Work Phone: Start: 06-16-2022 Patient discharge [facility] Work Phone: Start: 04-23-2022 Influenza vaccination INFLUENZA (#1) [facility] Start: 04-10-2022 Complete blood count Hemoglobin/Hematocrit [facility] Start: 04-10-2022 Creatinine measurement Serum Creatinine [facility] Start: 04-10-2022 HEMOGLOBIN/HEMATOCRIT HEMOGLOBIN/HEMATOCRIT [facility] Start: 04-10-2022 SERUM CREATININE SERUM CREATININE [facility] Start: 01-19-2022 Simple repair f/e/e/n/l/m 7.6cm-12.5 cm RPR F/E/E/N/L/M 7.6-12.5 CM [facility] Work Phone: Start: 01-01-2022 Anesthesia vascular shunt/shunt revision ANESTH VASCULAR SHUNT [facility] Work Phone: Start: 01-01-2022 Arven anast opn upr arm basilic vein trpos AV FUSE UPPR [facility] Work Phone: Start: 01-01-2022 Patient discharge [facility] Work Phone: Start: 08-23-2021 ADVANCE DIRECTIVE DISCUSSION ADVANCE DIRECTIVE DISCUSSION [facility] Start: 08-23-2021 DEPRESSION ASSESSMENT DEPRESSION ASSESSMENT [facility] Start: 04-08-2021 COVID-19 VACCINE (2 - Booster for Hudson series) COVID-19 VACCINE (2 - Booster for Hudson series) [facility] Start: 03-04-2021 PNEUMOCOCCAL: 65+ (2 - PPSV23 if available, else PCV20) PNEUMOCOCCAL: 65+ (2 - PPSV23 if available, else PCV20) [facility] Start: 03-04-2021 PNEUMOCOCCAL: 65+ (2 - PPSV23 or PCV20) PNEUMOCOCCAL: 65+ (2 - PPSV23 or PCV20) [facility] Start: 04-29-2020 Pneumococcal Vaccine: 65+ (2 - PPSV23 or PCV20) Pneumococcal Vaccine: 65+ (2 - PPSV23 or PCV20) [facility] Start: 04-29-2020 Pneumococcal Vaccine: 65+ (2 of 2 - PPSV23 or PCV20) Pneumococcal Vaccine: 65+ (2 of 2 - PPSV23 or PCV20) [facility] Start: 04-29-2020 PNEUMOCOCCAL: 65+ (2 - PPSV23 or PCV20) PNEUMOCOCCAL: 65+ (2 - PPSV23 or PCV20) [facility] Start: 04-23-2020 Influenza vaccination given Sequential Influenza Vaccine (#1) [facility] Start: 2017 BONE DENSITY BONE DENSITY [facility] Start: 2017 Bone Density Screening Bone Density Screening [facility] Start: 2017 Pneumococcal vaccination PNEUMOCOCCAL VACCINE AGE 65+ (1 of 2 - PCV13) [facility] Start: 2017 Screening for osteoporosis Bone Density Screening [facility] Start: 04-23-2017 Influenza vaccination SEQUENTIAL INFLUENZA VACCINE (#1) [facility] Start: 09-07-2013 Adult depression screening assessment DEPRESSION SCREENING [facility] Start: 09-05-2012 Colonoscopy COLONOSCOPY [facility] Start: 09-05-2012 COLORECTAL CANCER SCREENING COLORECTAL CANCER SCREENING [facility] Start: 09-05-2012 Screening for malignant neoplasm of colon [facility] Start: 2012 HEPATITIS B (1 of 3 - Risk 3-dose series) HEPATITIS B (1 of 3 - Risk 3-dose series) [facility] Start: 2012 Hepatitis B Vaccine (1 of 3 - Risk 3-dose series) Hepatitis B Vaccine (1 of 3 - Risk 3-dose series) [facility] Start: 2012 RSV Vaccine (1 - 1-dose 60+ series) RSV Vaccine (1 - 1-dose 60+ series) [facility] Start: 2012 Zoster vacc, sc ZOSTER VACCINE [facility] Start: 2002 Administration of herpes zoster vaccine Zoster Vaccines (1 of 2) [facility] Start: 2002 Screening for malignant neoplasm of colon [facility] Start: 1997 COLOGUARD (FIT-DNA) COLOGUARD (FIT-DNA) [facility] Start: [address] COLONOGRAPHY [facility] Start: 1997 FECAL OCCULT BLOOD FECAL OCCULT BLOOD [facility] Start: 1997 Lipid 1996 panel - Serum or Plasma Lipid Screening [facility] Start: 1997 Lipid panel Lipid Screening [facility] Start: 1997 LIPID SCREEN LIPID SCREEN [facility] Start: 1997 Screening for malignant neoplasm of colon [facility] Start: 1997 SIGMOIDOSCOPY SIGMOIDOSCOPY [facility] Start: 1992 Mammography [facility] Start: 1992 Screening for malignant neoplasm of breast Mammogram Screening [facility] Start: 1971 HEPATITIS A (1 of 2 - Risk 2-dose series) HEPATITIS A (1 of 2 - Risk 2-dose series) [facility] Start: 1971 Hepatitis A Vaccine (1 of 2 - Risk 2-dose series) Hepatitis A Vaccine (1 of 2 - Risk 2-dose series) [facility] Start: 1971 Urine microalbumin profile DTAP,TDAP,TD (1 - Tdap) [facility] Start: 1970 ANNUAL PCP TEAM CHRONIC DISEASE VISIT ANNUAL PCP TEAM CHRONIC DISEASE VISIT [facility] Start: 1970 BP CONTROLLED (<130/80) BP CONTROLLED (<130/80) [facility] Start: 1970 Hepatitis C antibody, confirmatory test Hepatitis C Screening [facility] Start: 1968 COVID-19 Vaccine (1 of 2) COVID-19 Vaccine (1 of 2) [facility] Start: 1964 Adolescent depression screening assessment Depression Screening (PHQ9) [facility] Start: 1955 History and physical examination, annual for health maintenance Wellness Visit [facility] Start: 1952 COVID-19 VACCINE (#1) COVID-19 VACCINE (#1) [facility] Start: 1952 Fall risk assessment Falls Risk Assessment [facility] Start: 1952 Screening mammography Mammogram [facility] Start: 1952 HEPATITIS C SCREENING HEPATITIS C SCREENING [facility] Start: 1952 Screening colonoscopy COLONOSCOPY [facility] Start: 1952 End: 1952 Screening for osteoporosis DEXA SCAN [facility] Start: 1952 End: 1952 Tetanus vaccination [facility] CT Cervical Spine Wi thout Contrast 3D CT Cervical Spine Without Contrast 3D [facility] 10/23/2017 7:09 AM EST [facility] CT Lumbar Spine With out Contrast 3D CT Lumbar Spine Without Contrast 3D [facility] 10/23/2017 7:09 AM EST [facility] CT Thoracic Spine Wi thout Contrast 3D CT Thoracic Spine Without Contrast 3D [facility] 10/23/2017 7:08 AM EST [facility] Patient Education [facility] Work Phone: Patient referral [facility] Work Phone: Immunizations Immunization Date Immunization Notes Care Provider [facility] 03-16-2023 tetanus toxoid, reduced diphtheria toxoid, and acellular pertussis vaccine, adsorbed HERVE MINOR MD [facility] 01-19-2022 tetanus toxoid, reduced diphtheria toxoid, and acellular pertussis vaccine, adsorbed Dr. Bell Maher Work Phone: [facility] 02-11-2021 COVID-19 vaccine (HUDSON) Maryjane Waldrop RD [facility] 06-28-2020 zoster vaccine recombinant ANA LUISA VILLANUEVA MD [facility] 03-04-2020 pneumococcal conjuga te vaccine, 13 valent ANA LUISA VILLANUEVA MD [facility] 03-04-2020 zoster vaccine recombinant Angelita Lamas MD Work Phone: [facility] 03-04-2020 zoster vaccine, live ANA LUISA VILLANUEVA MD [facility] 09-06-2019 Influenza, injectabl e, Madin Janice Canine Kidney, preservative free, quadrivalent; Translations: [Flucelvax PF Quadrivalent ] ANA LUISA VILLANUEVA MD [facility] 09-06-2019 influenza virus vaccine, unspecified formulation Emelia Nieves [facility] Work Phone: [facility] 11-03-2017 influenza virus vaccine, unspecified formulation ANA LUISA VILLANUEVA MD [facility] 11-03-2017 influenza, injectabl e, quadrivalent, preservative free [facility] 11-03-2017 influenza, seasonal, injectable Dr. Bell Maher Work Phone: [facility] 11-03-2017 influenza, seasonal, injectable, preservative free Angelita Lamas MD Work Phone: [facility] 06-07-2017 influenza nasal, unspecified formulation Maryjane Waldrop RD [facility] 06-07-2017 influenza virus vaccine, unspecified formulation ANA LUISA VILLANUEVA MD [facility] 06-07-2017 influenza, injectabl e, quadrivalent, preservative free Angelita Lamas MD Work Phone: [facility] 09-23-[address] Bell Maher Work Phone: [facility] 09-23-2016 influenza, seasonal, injectable, preservative free Angelita Lamas MD Work Phone: [facility] 05-04-2016 influenza nasal, unspecified formulation Maryjane Waldrop RD [facility] 05-04-2016 influenza virus vaccine, unspecified formulation ANA LUISA VILLANUEVA MD [facility] 05-04-2016 influenza, injectabl e, quadrivalent, preservative free Angelita Lamas MD Work Phone: [facility] 05-31-2015 influenza nasal, unspecified formulation Maryjane Waldrop RD [facility] 05-31-2015 influenza virus vaccine, unspecified formulation ANA LUISA VILLANUEVA MD [facility] 05-31-2015 influenza, seasonal, injectable, preservative free Angelita Lamas MD Work Phone: [facility] 06-18-2014 influenza nasal, unspecified formulation Maryjane Waldrop RD [facility] 06-18-2014 influenza virus vaccine, unspecified formulation ANA LUISA VILLANUEVA MD [facility] 06-18-2014 influenza, injectabl e, quadrivalent, contains preservative Angelita Lamas MD Work Phone: [facility] 03-07-2011 tetanus and diphther ia toxoids, adsorbed, preservative free, for adult use (5 Lf of tetanus toxoid and 2 Lf of diphtheria toxoid) ANA LUISA VILLANUEVA MD [facility] Payers Date Payer Category Payer Medicare [id number] 2024 Self-pay [id number] 2017 Medicare [id number] 2017 Medicare MEDICARE MEDICAR E PART A & B [id number] 2017-Present ID [id number] 2017 Medicare MEDICARE MEDICAR E A AND B [id number] 2017-Present [phone] [address] [address] [place] [address] Medicare [id number] 2017 Medicare [id number] [id number]. [id number] 2017 Unknown [id number] 2017 Unknown [employer] [place] [id number] 2017-Present [id number]. [id number] 2017 Unknown [employer] [place] [employer] [place] MEDICARE SUPPLEMENT [id number] 2017-Present [phone] [place] [address] Indemnity [id number]. [id number] 2017 Unknown [id number]. 1.13.159.2. [id number] 2017 Medicare [id number] 2017 Private Health Insurance [id number] [id number] 2017 Unknown [id number] 2014 Medicaid [id number] 1952 Unknown [id number] 2.16.840.1.417784.3.579.2. 627 1952 Unknown [id number] 2.16.840.1.063131.3.579.2. 627 1952 Unknown [id number] 2.16.840.1.631152.3.579.2. 1952 Unknown [id number] 2.16.840.1.685062.3.579.2. 1952 Unknown [id number] 2.16.840.1.454852.3.579.2. 1952 Unknown [id number] 2.16.840.1.944739.3.579.2. 1952 Unknown [id number] 2.16.840.1.158622.3.579.2. 1952 Unknown [id number] 2.16.840.1.659007.3.579.2. 1952 Unknown [id number] 2.16.840.1.506323.3.579.2. 1952 Unknown [id number] 2.16.840.1.814284.3.579.2. 1952 Unknown [id number] 2.16.840.1.251065.3.579.2. 1952 Unknown [id number] 2.16.840.1.416829.3.579.2. 1952 Unknown [id number] 2.16.840.1.742961.3.579.2. 1952 Unknown [id number] 2.16.840.1.724518.3.579.2. 1952 Unknown [id number] 2.16.840.1.902075.3.579.2. 1952 Unknown [id number] 2.16.840.1.689482.3.579.2. 1952 Unknown [id number] 2.16.840.1.696727.3.579.2. 1952 Unknown [id number] 2.16.840.1.670606.3.579.2. 1952 Unknown [id number] 2.16840.1.184249.3.579.2. 62 1952 Unknown [id number] 2.840.1.174351.3.579.2. 1952 Unknown [id number] 2.840.1.490283.3.579.2. 1952 Unknown [id number] 2.840.1.876385.3.579.2. 62 1952 Unknown [id number] 2.840.1.318421.3.579.2. 1952 Unknown [id number] 2.840.1.261777.3.579.2. 1952 Unknown [id number] 2.840.1.017608.3.579.2. 1952 Unknown [id number] 2.840.1.439932.3.579.2. 62 1952 Unknown [id number] 2.840.1.360316.3.579.2. 62 1952 Unknown [id number] 2.840.1.817520.3.579.2. 651 1952 Unknown [id number] 2.840.1.853283.3.579.2. 651 1952 Unknown [id number] 2.840.1.089660.3.579.2. 651 Medicare [id number] 2.840.1.882546.3.249.13 Unknown [id number] .0.1.491550.3.249.13 Unknown [id number] 2.840.1.997550.3.579.2. 462 Unknown [id number] 2.840.1.134932.3.579.2. 462 Unknown [id number] 2.840.1.353376.3.579.2. 462 Unknown [id number] 2.16.840.1.189543.3.579.2. 462 Unknown [id number] 2.16.840.1.500747.3.579.2. 462 Unknown [id number] 2.16.840.1.749386.3.579.2. 462 Social History Date Type Detail Facility Start: 10-23-2017 End: 02-28-2025 Tobacco smoking status NHIS Former smoker [facility] Start: 12-20-2024 End: 01-03-2025 History of tobacco use Current smoker [facility] Start: 1950 [facility] Start: 10-23-2017 End: 01-01-2020 Tobacco use and exposure Never used [facility] Start: 10-23-2017 End: 04-10-2021 Alcohol intake Current non-drinker of alcohol (finding) [facility] Start: 1950 Sex Assigned At Female A [facility] Start: 01-19-2022 End: 11-09-2022 [facility] Unknown if ever smoked [facility] Start: 07-09-2020 None [facility] Start: 07-09-2020 Alone [facility] End: 07-09-1997 History of tobacco use Cigarette Smoker [facility] Start: 01-01-2020 End: 04-20-2023 Cigarettes smoked current (pack per day) - Reported 1 [facility] Start: 11-03-2017 Non-smoker [facility] Start: 04-10-2021 End: 04-20-2023 Tobacco use panel [facility] National Score (1-10 0), lower number is lower risk 48 [facility] Sexual Orientation [facility] Start: 07-18-2019 End: 12-09-2024 Sex Female (finding) [facility] Medical Equipment Procedure Code Equipment Code Equipment Origin al Text Equipment Identifier Dates Creation, AV fistula, using vein transposition technique SUTURE,LIGA CLIP MED [id number] FDA Start: 08-06-2022 Creation, AV fistula, using vein transposition technique SUTURE,LIGA CLIP MED [id number] FDA Start: 08-06-2022 Creation, AV fistula, using vein transposition technique SUTURE,LIGA CLIP SM LT-100 FDA Start: 08-06-2022 Creation, AV fistula, using vein transposition technique SUTURE,LIGA CLIP SM LT-100 FDA Start: 08-06-2022 Creation, AV fistula, using vein transposition technique SUTURE,LIGA CLIP SM LT-100 FDA Start: 08-06-2022 Creation, AV fistula, using vein transposition technique SUTURE,LIGA CLIP SM LT-100 FDA Start: 08-06-2022 Creation, AV fistula, using vein transposition technique SUTURE,LIGA CLIP MED [id number] FDA Start: 08-06-2022 Creation, AV fistula, using vein transposition technique SUTURE,LIGA CLIP MED [id number] FDA Start: 08-06-2022 Creation, AV fistula, using vein transposition technique SUTURE,LIGA CLIP SM LT-100 FDA Start: 08-06-2022 Creation, AV fistula, using vein transposition technique SUTURE,LIGA CLIP SM LT-100 FDA Start: 08-06-2022 Creation, AV fistula, using vein transposition technique SUTURE,LIGA CLIP SM LT-100 FDA Start: 08-06-2022 Creation, AV fistula, using vein transposition technique SUTURE,LIGA CLIP SM LT-100 FDA Start: 08-06-2022 Creation, AV fistula, using vein transposition technique SUTURE,LIGA CLIP MED [id number] FDA Start: 08-06-2022 Creation, AV fistula, using vein transposition technique SUTURE,LIGA CLIP MED [id number] FDA Start: 08-06-2022 Creation, AV fistula, using vein transposition technique SUTURE,LIGA CLIP SM LT-100 FDA Start: 08-06-2022 Creation, AV fistula, using vein transposition technique SUTURE,LIGA CLIP SM LT-100 FDA Start: 08-06-2022 Creation, AV fistula, using vein transposition technique SUTURE,LIGA CLIP SM LT-100 FDA Start: 08-06-2022 Creation, AV fistula, using vein transposition technique SUTURE,LIGA CLIP SM LT-100 FDA Start: 08-06-2022 Creation, AV fistula, using vein transposition technique SUTURE,LIGA CLIP MED [id number] FDA Start: 08-06-2022 Creation, AV fistula, using vein transposition technique SUTURE,LIGA CLIP MED [id number] FDA Start: 08-06-2022 Creation, AV fistula, using vein transposition technique SUTURE,LIGA CLIP SM LT-100 FDA Start: 08-06-2022 Creation, AV fistula, using vein transposition technique SUTURE,LIGA CLIP SM LT-100 FDA Start: 08-06-2022 Creation, AV fistula, using vein transposition technique SUTURE,LIGA CLIP SM LT-100 FDA Start: 08-06-2022 Creation, AV fistula, using vein transposition technique SUTURE,LIGA CLIP SM LT-100 FDA Start: 08-06-2022 Creation, AV fistula, using vein transposition technique SUTURE,LIGA CLIP MED [id number] FDA Start: 08-06-2022 Creation, AV fistula, using vein transposition technique SUTURE,LIGA CLIP MED [id number] FDA Start: 08-06-2022 Creation, AV fistula, using vein transposition technique SUTURE,LIGA CLIP SM LT-100 FDA Start: 08-06-2022 Creation, AV fistula, using vein transposition technique SUTURE,LIGA CLIP SM LT-100 FDA Start: 08-06-2022 Creation, AV fistula, using vein transposition technique SUTURE,LIGA CLIP SM LT-100 FDA Start: 08-06-2022 Creation, AV fistula, using vein transposition technique SUTURE,LIGA CLIP SM LT-100 FDA Start: 08-06-2022 Creation, AV fistula, using vein transposition technique SUTURE,LIGA CLIP MED [id number] FDA Start: 08-06-2022 Creation, AV fistula, using vein transposition technique SUTURE,LIGA CLIP MED [id number] FDA Start: 08-06-2022 Creation, AV fistula, using vein transposition technique SUTURE,LIGA CLIP SM LT-100 FDA Start: 08-06-2022 Creation, AV fistula, using vein transposition technique SUTURE,LIGA CLIP SM LT-100 FDA Start: 08-06-2022 Creation, AV fistula, using vein transposition technique SUTURE,LIGA CLIP SM LT-100 FDA Start: 08-06-2022 Creation, AV fistula, using vein transposition technique SUTURE,LIGA CLIP SM LT-100 FDA Start: 08-06-2022 Creation, AV fistula, using vein transposition technique SUTURE,LIGA CLIP MED [id number] FDA Start: 08-06-2022 Creation, AV fistula, using vein transposition technique SUTURE,LIGA CLIP MED [id number] FDA Start: 08-06-2022 Creation, AV fistula, using vein transposition technique SUTURE,LIGA CLIP SM LT-100 FDA Start: 08-06-2022 Creation, AV fistula, using vein transposition technique SUTURE,LIGA CLIP SM LT-100 FDA Start: 08-06-2022 Creation, AV fistula, using vein transposition technique SUTURE,LIGA CLIP SM LT-100 FDA Start: 08-06-2022 Creation, AV fistula, using vein transposition technique SUTURE,LIGA CLIP SM LT-100 FDA Start: 08-06-2022 Creation, AV fistula SUTURE,LIGA CLIP MED [id number] FDA Start: 10-21-2021 Creation, AV fistula SUTURE,LIGA CLIP SM LT-100 FDA Start: 10-21-2021 Creation, AV fistula SUTURE,LIGA CLIP SM LT-100 FDA Start: 10-21-2021 Creation, AV fistula SUTURE,LIGA CLIP MED LT200 FDA Start: 01-01-2022 Creation, AV fistula SUTURE,LIGA CLIP MED LT200 FDA Start: 01-01-2022 Creation, AV fistula SUTURE,LIGA CLIP SM LT-100 FDA Start: 01-01-2022 Creation, AV fistula SUTURE,LIGA CLIP SM LT-100 FDA Start: 01-01-2022 Creation, AV fistula SUTURE,LIGA CLIP SM LT-100 FDA Start: 01-01-2022 Creation, AV fistula SUTURE,LIGA CLIP SM LT-100 FDA Start: 01-01-2022 Creation, AV fistula SUTURE,LIGA CLIP SM LT-100 FDA Start: 01-01-2022 Creation, AV fistula SUTURE,LIGA CLIP MED [id number] FDA Start: 10-21-2021 Creation, AV fistula SUTURE,LIGA CLIP SM LT-100 FDA Start: 10-21-2021 Creation, AV fistula SUTURE,LIGA CLIP SM LT-100 FDA Start: 10-21-2021 Creation, AV fistula SUTURE,LIGA CLIP MED [id number] FDA Start: 01-01-2022 Creation, AV fistula SUTURE,LIGA CLIP MED LT200 FDA Start: 01-01-2022 Creation, AV fistula SUTURE,LIGA CLIP SM LT-100 FDA Start: 01-01-2022 Creation, AV fistula SUTURE,LIGA CLIP SM LT-100 FDA Start: 01-01-2022 Creation, AV fistula SUTURE,LIGA CLIP SM LT-100 FDA Start: 01-01-2022 Creation, AV fistula SUTURE,LIGA CLIP SM LT-100 FDA Start: 01-01-2022 Creation, AV fistula SUTURE,LIGA CLIP SM LT-100 FDA Start: 01-01-2022 Creation, AV fistula SUTURE,LIGA CLIP MED [id number] FDA Start: 10-21-2021 Creation, AV fistula SUTURE,LIGA CLIP SM LT-100 FDA Start: 10-21-2021 Creation, AV fistula SUTURE,LIGA CLIP SM LT-100 FDA Start: 10-21-2021 Creation, AV fistula SUTURE,LIGA CLIP MED LT200 FDA Start: 01-01-2022 Creation, AV fistula SUTURE,LIGA CLIP MED LT200 FDA Start: 01-01-2022 Creation, AV fistula SUTURE,LIGA CLIP SM LT-100 FDA Start: 01-01-2022 Creation, AV fistula SUTURE,LIGA CLIP SM LT-100 FDA Start: 01-01-2022 Creation, AV fistula SUTURE,LIGA CLIP SM LT-100 FDA Start: 01-01-2022 Creation, AV fistula SUTURE,LIGA CLIP SM LT-100 FDA Start: 01-01-2022 Creation, AV fistula SUTURE,LIGA CLIP SM LT-100 FDA Start: 01-01-2022 Creation, AV fistula SUTURE,LIGA CLIP MED LT200 FDA Start: 10-21-2021 Creation, AV fistula SUTURE,LIGA CLIP SM LT-100 FDA Start: 10-21-2021 Creation, AV fistula SUTURE,LIGA CLIP SM LT-100 FDA Start: 10-21-2021 Creation, AV fistula SUTURE,LIGA CLIP MED LT200 FDA Start: 01-01-2022 Creation, AV fistula SUTURE,LIGA CLIP MED LT200 FDA Start: 01-01-2022 Creation, AV fistula SUTURE,LIGA CLIP SM LT-100 FDA Start: 01-01-2022 Creation, AV fistula SUTURE,LIGA CLIP SM LT-100 FDA Start: 01-01-2022 Creation, AV fistula SUTURE,LIGA CLIP SM LT-100 FDA Start: 01-01-2022 Creation, AV fistula SUTURE,LIGA CLIP SM LT-100 FDA Start: 01-01-2022 Creation, AV fistula SUTURE,LIGA CLIP SM LT-100 FDA Start: 01-01-2022 Creation, AV fistula SUTURE,LIGA CLIP MED LT200 FDA Start: 06-16-2022 Creation, AV fistula SUTURE,LIGA CLIP MED LT200 FDA Start: 06-16-2022 Creation, AV fistula SUTURE,LIGA CLIP SM LT-100 FDA Start: 06-16-2022 Creation, AV fistula SUTURE,LIGA CLIP SM LT-100 FDA Start: 06-16-2022 Creation, AV fistula SUTURE,LIGA CLIP MED LT200 FDA Start: 10-21-2021 Creation, AV fistula SUTURE,LIGA CLIP SM LT-100 FDA Start: 10-21-2021 Creation, AV fistula SUTURE,LIGA CLIP SM LT-100 FDA Start: 10-21-2021 Creation, AV fistula SUTURE,LIGA CLIP MED LT200 FDA Start: 01-01-2022 Creation, AV fistula SUTURE,LIGA CLIP MED LT200 FDA Start: 01-01-2022 Creation, AV fistula SUTURE,LIGA CLIP SM LT-100 FDA Start: 01-01-2022 Creation, AV fistula SUTURE,LIGA CLIP SM LT-100 FDA Start: 01-01-2022 Creation, AV fistula SUTURE,LIGA CLIP SM LT-100 FDA Start: 01-01-2022 Creation, AV fistula SUTURE,LIGA CLIP SM LT-100 FDA Start: 01-01-2022 Creation, AV fistula SUTURE,LIGA CLIP SM LT-100 FDA Start: 01-01-2022 Creation, AV fistula SUTURE,LIGA CLIP MED LT200 FDA Start: 06-16-2022 Creation, AV fistula SUTURE,LIGA CLIP MED LT200 FDA Start: 06-16-2022 Creation, AV fistula SUTURE,LIGA CLIP SM LT-100 FDA Start: 06-16-2022 Creation, AV fistula SUTURE,LIGA CLIP SM LT-100 FDA Start: 06-16-2022 Creation, AV fistula SUTURE,LIGA CLIP MED LT200 FDA Start: 10-21-2021 Creation, AV fistula SUTURE,LIGA CLIP SM LT-100 FDA Start: 10-21-2021 Creation, AV fistula SUTURE,LIGA CLIP SM LT-100 FDA Start: 10-21-2021 Creation, AV fistula SUTURE,LIGA CLIP MED LT200 FDA Start: 01-01-2022 Creation, AV fistula SUTURE,LIGA CLIP MED LT200 FDA Start: 01-01-2022 Creation, AV fistula SUTURE,LIGA CLIP SM LT-100 FDA Start: 01-01-2022 Creation, AV fistula SUTURE,LIGA CLIP SM LT-100 FDA Start: 01-01-2022 Creation, AV fistula SUTURE,LIGA CLIP SM LT-100 FDA Start: 01-01-2022 Creation, AV fistula SUTURE,LIGA CLIP SM LT-100 FDA Start: 01-01-2022 Creation, AV fistula SUTURE,LIGA CLIP SM LT-100 FDA Start: 01-01-2022 Creation, AV fistula SUTURE,LIGA CLIP MED LT200 FDA Start: 06-16-2022 Creation, AV fistula SUTURE,LIGA CLIP MED LT200 FDA Start: 06-16-2022 Creation, AV fistula SUTURE,LIGA CLIP SM LT-100 FDA Start: 06-16-2022 Creation, AV fistula SUTURE,LIGA CLIP SM LT-100 FDA Start: 06-16-2022 Creation, AV fistula SUTURE,LIGA CLIP MED LT200 FDA Start: 10-21-2021 Creation, AV fistula SUTURE,LIGA CLIP SM LT-100 FDA Start: 10-21-2021 Creation, AV fistula SUTURE,LIGA CLIP SM LT-100 FDA Start: 10-21-2021 Creation, AV fistula SUTURE,LIGA CLIP MED LT200 FDA Start: 01-01-2022 Creation, AV fistula SUTURE,LIGA CLIP MED LT200 FDA Start: 01-01-2022 Creation, AV fistula SUTURE,LIGA CLIP SM LT-100 FDA Start: 01-01-2022 Creation, AV fistula SUTURE,LIGA CLIP SM LT-100 FDA Start: 01-01-2022 Creation, AV fistula SUTURE,LIGA CLIP SM LT-100 FDA Start: 01-01-2022 Creation, AV fistula SUTURE,LIGA CLIP SM LT-100 FDA Start: 01-01-2022 Creation, AV fistula SUTURE,LIGA CLIP SM LT-100 FDA Start: 01-01-2022 Creation, AV fistula SUTURE,LIGA CLIP MED LT200 FDA Start: 06-16-2022 Creation, AV fistula SUTURE,LIGA CLIP MED LT200 FDA Start: 06-16-2022 Creation, AV fistula SUTURE,LIGA CLIP SM LT-100 FDA Start: 06-16-2022 Creation, AV fistula SUTURE,LIGA CLIP SM LT-100 FDA Start: 06-16-2022 Creation, AV fistula SUTURE,LIGA CLIP MED LT200 FDA Start: 10-21-2021 Creation, AV fistula SUTURE,LIGA CLIP SM LT-100 FDA Start: 10-21-2021 Creation, AV fistula SUTURE,LIGA CLIP SM LT-100 FDA Start: 10-21-2021 Creation, AV fistula SUTURE,LIGA CLIP MED LT200 FDA Start: 01-01-2022 Creation, AV fistula SUTURE,LIGA CLIP MED LT200 FDA Start: 01-01-2022 Creation, AV fistula SUTURE,LIGA CLIP SM LT-100 FDA Start: 01-01-2022 Creation, AV fistula SUTURE,LIGA CLIP SM LT-100 FDA Start: 01-01-2022 Creation, AV fistula SUTURE,LIGA CLIP SM LT-100 FDA Start: 01-01-2022 Creation, AV fistula SUTURE,LIGA CLIP SM LT-100 FDA Start: 01-01-2022 Creation, AV fistula SUTURE,LIGA CLIP SM LT-100 FDA Start: 01-01-2022 Creation, AV fistula SUTURE,LIGA CLIP MED LT200 FDA Start: 06-16-2022 Creation, AV fistula SUTURE,LIGA CLIP MED LT200 FDA Start: 06-16-2022 Creation, AV fistula SUTURE,LIGA CLIP SM LT-100 FDA Start: 06-16-2022 Creation, AV fistula SUTURE,LIGA CLIP SM LT-100 FDA Start: 06-16-2022 Creation, AV fistula SUTURE,LIGA CLIP MED LT200 FDA Start: 10-21-2021 Creation, AV fistula SUTURE,LIGA CLIP SM LT-100 FDA Start: 10-21-2021 Creation, AV fistula SUTURE,LIGA CLIP SM LT-100 FDA Start: 10-21-2021 Creation, AV fistula SUTURE,LIGA CLIP MED LT200 FDA Start: 01-01-2022 Creation, AV fistula SUTURE,LIGA CLIP MED LT200 FDA Start: 01-01-2022 Creation, AV fistula SUTURE,LIGA CLIP SM LT-100 FDA Start: 01-01-2022 Creation, AV fistula SUTURE,LIGA CLIP SM LT-100 FDA Start: 01-01-2022 Creation, AV fistula SUTURE,LIGA CLIP SM LT-100 FDA Start: 01-01-2022 Creation, AV fistula SUTURE,LIGA CLIP SM LT-100 FDA Start: 01-01-2022 Creation, AV fistula SUTURE,LIGA CLIP SM LT-100 FDA Start: 01-01-2022 Creation, AV fistula SUTURE,LIGA CLIP MED LT200 FDA Start: 06-16-2022 Creation, AV fistula SUTURE,LIGA CLIP MED LT200 FDA Start: 06-16-2022 Creation, AV fistula SUTURE,LIGA CLIP SM LT-100 FDA Start: 06-16-2022 Creation, AV fistula SUTURE,LIGA CLIP SM LT-100 FDA Start: 06-16-2022 Creation, AV fistula SUTURE,LIGA CLIP MED LT200 FDA Start: 10-21-2021 Creation, AV fistula SUTURE,LIGA CLIP SM LT-100 FDA Start: 10-21-2021 Creation, AV fistula SUTURE,LIGA CLIP SM LT-100 FDA Start: 10-21-2021 Creation, AV fistula SUTURE,LIGA CLIP MED LT200 FDA Start: 01-01-2022 Creation, AV fistula SUTURE,LIGA CLIP MED LT200 FDA Start: 01-01-2022 Creation, AV fistula SUTURE,LIGA CLIP SM LT-100 FDA Start: 01-01-2022 Creation, AV fistula SUTURE,LIGA CLIP SM LT-100 FDA Start: 01-01-2022 Creation, AV fistula SUTURE,LIGA CLIP SM LT-100 FDA Start: 01-01-2022 Creation, AV fistula SUTURE,LIGA CLIP SM LT-100 FDA Start: 01-01-2022 Creation, AV fistula SUTURE,LIGA CLIP SM LT-100 FDA Start: 01-01-2022 Creation, AV fistula SUTURE,LIGA CLIP MED LT200 FDA Start: 06-16-2022 Creation, AV fistula SUTURE,LIGA CLIP MED LT200 FDA Start: 06-16-2022 Creation, AV fistula SUTURE,LIGA CLIP SM LT-100 FDA Start: 06-16-2022 Creation, AV fistula SUTURE,LIGA CLIP SM LT-100 FDA Start: 06-16-2022 Creation, AV fistula SUTURE,LIGA CLIP MED LT200 FDA Start: 10-21-2021 Creation, AV fistula SUTURE,LIGA CLIP SM LT-100 FDA Start: 10-21-2021 Creation, AV fistula SUTURE,LIGA CLIP SM LT-100 FDA Start: 10-21-2021 Creation, AV fistula SUTURE,LIGA CLIP MED LT200 FDA Start: 01-01-2022 Creation, AV fistula SUTURE,LIGA CLIP MED LT200 FDA Start: 01-01-2022 Creation, AV fistula SUTURE,LIGA CLIP SM LT-100 FDA Start: 01-01-2022 Creation, AV fistula SUTURE,LIGA CLIP SM LT-100 FDA Start: 01-01-2022 Creation, AV fistula SUTURE,LIGA CLIP SM LT-100 FDA Start: 01-01-2022 Creation, AV fistula SUTURE,LIGA CLIP SM LT-100 FDA Start: 01-01-2022 Creation, AV fistula SUTURE,LIGA CLIP SM LT-100 FDA Start: 01-01-2022 Creation, AV fistula SUTURE,LIGA CLIP MED LT200 FDA Start: 06-16-2022 Creation, AV fistula SUTURE,LIGA CLIP MED LT200 FDA Start: 06-16-2022 Creation, AV fistula SUTURE,LIGA CLIP SM LT-100 FDA Start: 06-16-2022 Creation, AV fistula SUTURE,LIGA CLIP SM LT-100 FDA Start: 06-16-2022 7.3 MM CANNULATE D 16MM THREAD FDA Start: 03-10-2019 7.3 mm cannulate d screw FDA Start: 03-10-2019 7.3mm cannulated screw FDA Start: 03-10-2019 7.3 MM CANNULATE D 16MM THREAD FDA Start: 03-10-2019 7.3 mm cannulate d screw FDA Start: 03-10-2019 7.3mm cannulated screw FDA Start: 03-10-2019 7.3 MM CANNULATE D 16MM THREAD FDA Start: 03-10-2019 7.3 mm cannulate d screw FDA Start: 03-10-2019 7.3mm cannulated screw FDA Start: 03-10-2019 7.3 MM CANNULATE D 16MM THREAD FDA Start: 03-10-2019 7.3 mm cannulate d screw FDA Start: 03-10-2019 7.3mm cannulated screw FDA Start: 03-10-2019 7.3 MM CANNULATE D 16MM THREAD FDA Start: 03-10-2019 7.3 mm cannulate d screw FDA Start: 03-10-2019 7.3mm cannulated screw FDA Start: 03-10-2019 7.3 MM CANNULATE D 16MM THREAD FDA Start: 03-10-2019 7.3 mm cannulate d screw FDA Start: 03-10-2019 7.3mm cannulated screw FDA Start: 03-10-2019 7.3 MM CANNULATE D 16MM THREAD FDA Start: 03-10-2019 7.3 mm cannulate d screw FDA Start: 03-10-2019 7.3mm cannulated screw FDA Start: 03-10-2019 7.3 MM CANNULATE D 16MM THREAD FDA Start: 03-10-2019 7.3 mm cannulate d screw FDA Start: 03-10-2019 7.3mm cannulated screw FDA Start: 03-10-2019 7.3 MM CANNULATE D 16MM THREAD FDA Start: 03-10-2019 7.3 mm cannulate d screw FDA Start: 03-10-2019 7.3mm cannulated screw FDA Start: 03-10-2019 7.3 MM CANNULATE D 16MM THREAD FDA Start: 03-10-2019 7.3 mm cannulate d screw FDA Start: 03-10-2019 7.3mm cannulated screw FDA Start: 03-10-2019 7.3 MM CANNULATE D 16MM THREAD FDA Start: 03-10-2019 7.3 mm cannulate d screw FDA Start: 03-10-2019 7.3mm cannulated screw FDA Start: 03-10-2019 Goals Date Patient Goal Desired Activity /State Functional Status Date Assessment Result Facility 01-07-2025 Functional Status Room located n ear nursing station, Door open, Bathroom light on, Non-Slip footwear, Room check performed [facility] 01-07-2025 Functional Status [facility] 01-07-2025 Functional Status [facility] 01-07-2025 Functional Status [facility] 01-06-2025 Functional Status [facility] 01-06-2025 Functional Status [facility] 01-06-2025 Functional Status 70 [facility] 01-06-2025 Functional Status Linen Change Done [facility] 01-06-2025 Functional Status [facility] 01-06-2025 Functional Status [facility] 08-18-2024 Functional status Ambulates [facility] Work Phone: 04-07-2023 Functional Status steady with support [facility] 04-06-2023 Functional Status Independent [facility] 04-06-2023 Functional Status ID band on, Allergy Band on, Call device within reach, Bed in low position, Wheels locked, Upper/Half-Length side-rails up, Visitor at bedside [facility] 03-27-2022 Functional Status Room check performed [facility] 03-27-2022 Functional Status Refused [facility] 03-27-2022 Functional Status bilateral knee high [facility] 03-26-2022 [facility] 03-26-2022 Functional Status [facility] 03-26-2022 Functional Status [facility] 03-26-2022 Functional Status [facility] 03-26[facility] [facility] [address] [facility] 03-25-2022 Functional Status [facility] 03-25-2022 Functional Status Lunch Percent 50 [facility] 03-25-[address] [facility] 03-25-[address] [facility] 03-25-2022 [facility] Functional Status Sensory Deficits None A [facility] 03-24-2022 Functional Status Ambulation in Room [facility] 02-02-2022 Functional Status Room check performed [facility] 02-02-2022 Functional Status 100 [facility] 02-02-2022 Functional Status [facility] 02-02-2022 Functional Status Supervised 7 [facility] 02-02-2022 Functional Status [facility] 02-02-2022 Functional Status Done [facility] 02-02-2022 Functional Status [facility] 02-01-2022 Functional Status [facility] 02-01-2022 Functional Status Mod I 8 [facility] 02-01-2022 Functional Status Maintained [facility] 02-01-2022 Functional Status Assistive Device None A [facility] 01-31-2022 Functional Status [facility] 01-31-2022 Functional Status [facility] 01-31-2022 Functional Status [facility] 01-31-2022 Functional Status [facility] 01-30-2022 Functional Status Supervised 18 [facility] 01-30-2022 Functional Status bilateral knee high l [facility] 01-30-2022 Functional Status [facility] 01-30-2022 Functional Status SCD On/Re-appl ied bilateral knee high [facility] 01-29-2022 Functional Status Patient Identi fied Identification band, Verbal [facility] 01-29-2022 Functional Status Yes [facility] 01-29-2022 Functional Status [facility] 01-29-2022 Functional Status [facility] 01-29-2022 Functional Status [facility] 01-28-2022 Functional Status [facility] 01-28-2022 Functional Status Assistive Equi pment elevated on pillows [facility] 01-28-2022 Functional Status [facility] 01-28-2022 Functional Status [facility] 01-27-2022 Functional Status Skin Care Prev entative Intervention(s) heel(s)s elevated [facility] 01-27-2022 Functional Status [facility] 01-27-2022 [facility]27[facility] 01-26-2022 Functional Status [facility] 01-26-2022 Functional Status Living Situati on Lives with family [facility] 01-26-2022 Functional Status [facility] 01-24-2022 Functional Status [facility] 01-24-2022 Functional Status Sensory Deficits None [facility] Mental Status Date Assessment Result Facility 01-07-2025 Mental Status Oriented x 4 [facility] 01-07-2025 Mental Status [facility] 01-07-2025 Mental Status [facility] 09-07-2024 Cognitive function Awake;Alert;A ppropriate;Follow s [facility] Work Phone: 08-18-2024 Cognitive function Voice/Name [facility] Work Phone: 04-06-2023 Mental Status Orientation Oriented x 4 [facility] 04-06-2023 Mental Status [facility] 08-06-2022 Cognitive function Voice/Name [facility] Work Phone: 06-16-2022 Cognitive function Voice/Name [facility] Work Phone: 03-27-2022 Mental Status Orientation Oriented x 4 [facility] 03-27-2022 Mental Status [facility] 03-26-2022 Mental Status [facility] 03-25-2022 Mental Status Orientation Asse ssment Oriented x 4 [facility] 03-25-2022 Mental Status [facility] 03-25-2022 Mental Status [facility] 02-02-2022 Mental Status Oriented x 4 [facility] 02-02-2022 Mental Status Orientation Asse ssment Oriented x 4 [facility] 02-02-2022 Mental Status [facility] 02-02-2022 Mental Status [facility] 01-01-2022 Cognitive function Voice/Name [facility] Work Phone: 10-27-2021 Cognitive function Level Of Cons ciousness Awake;Alert;Appropriate;Follow s [facility] Work Phone: 10-21-2021 Cognitive function Voice/Name [facility] Work Phone: 10-21-2021 Cognitive function Patient Orien tation Person;Place;Time [facility] Work Phone: Clinical Notes 08-27-2020 to 04-16-2025 Note Date & Type Note Facility 04-16-2025 Cardiology Progress note Date of Service 04/14/2025 21:21:23 Subjective Patient was examined at bedside today morning. No acute complaints overnight. Objective Vitals and Measurements T: 36.7 C (Oral) TMIN: 36.4 C (Axillary) TMAX: 37.0 C (Oral) HR: 76 (Monitored) RR: 16 BP: 92/54 SpO2: 97% Intake and Output 7AM Yesterday to 7AM Today Intake and Output (Last 24 hours) Intake Oral Intake 1320.00 Supplement Intake 120.00 Output Urine Voided 0.00 Urinary Catheter Output: 200.00 Stool Count 0.00 Total Summary Total Intake 1440.00 Total Output 200.00 Fluid Balance 1240.00 Physical Exam General: Alert, in no acute discomfort. Skin: intact, warm, and dry. no rashes or lesions on exposed skin. Head: normocephalic, atraumatic. Neck: supple, trachea midline. Normal ROM. Eyes: Extraocular movements are intact. Normal conjunctiva. Pupils equal and round b/l ENT: Oral mucous membranes moist. Posterior pharynx without erythema or exudate. Cardiovascular: regular rate and rhythm. no murmurs, rubs, gallops. Respiratory: Lungs are clear without any wheezes, rhonchi, rales Abdomen: Bowel sounds normal present. Abdomen soft, nontender. No guarding. No rebound. No masses or rigidity. Back: nontender. No CVA tenderness. Weight Dosing Weight: 81.1 kg (04/13/25) Dosing Weight: 83.5 kg (04/13/25) Medications Medications (31) Active Scheduled: (15) acetaminophen-HYDROcodone 325-5 mg tablet 1 tab(s), Oral, BID amiodarone 200 mg tablet 200 mg 1 tab(s), Oral, qDay aspirin 81 mg Chewable 81 mg 1 tab(s), Oral, Daily clopidogrel 75 mg Tablet 75 mg 1 tab(s), Oral, qDay empagliflozin 10 mg tablet 10 mg 1 tab(s), Oral, qAM levETIRAcetam 500 mg tablet 500 mg 1 tab(s), Oral, BID levothyroxine 50 mcg tablet 50 mcg 1 tab(s), Oral, qDay melatonin 5 mg tablet 30 mg 6 tab(s), Oral, qHS menthol-zinc oxide topical ointment 4oz 1 ricardo, Topical, amhs metoprolol succinate 25 mg ER tablet 12.5 mg 0.5 tab(s), Oral, qDay miconazole topical 2% Powder 1 ricardo, Topical, BID midodrine 5 mg tablet 10 mg 2 tab(s), Oral, Mon/Wed/Fri montelukast 10 mg Tablet 10 mg 1 tab(s), Oral, qPM nitroglycerin 2% Ointment UD Packet 0.5 inch(es), Topical, BID pantoprazole 40 mg EC tablet 40 mg 1 tab(s), Oral, qDayAC Continuous: (0) PRN: (16) acetaminophen 325 mg Tablet 650 mg 2 tab(s), Oral, q4h albuterol 0.083% Soln UD (2.5mg/3 mL) 2.5 mg 3 mL, Inhalation, q6h dextrose 50% Solution Disp syringe 50 mL 25 gram(s) 50 mL, IV Push, AsDirected docusate sodium 100 mg Capsule 100 mg 1 cap(s), Oral, BID magnesium sulfate 4 gram(s)/100mL PMX 4 g 100 mL, IV Piggyback, AsDirected magnesium sulfate 50% (500mg/mL) 6 g 12 mL, IV Piggyback, AsDirected magnesium sulfate PMX 2 g 50 mL, IV Piggyback, AsDirected melatonin 3 mg tablet 3 mg 1 tab(s), Oral, qHS menthol-zinc oxide topical ointment 4oz 1 ricardo, Topical, BID nitroglycerin 0.4 mg Tablet (25/btl) 0.4 mg 1 tab(s), Sublingual, q5min ondansetron 2 mg/ 1 mL 2 mL INJ 2 mg 1 mL, IV Push, q4h polyethylene glycol 3350 - UD packet 17 gram(s) 15 mL, Oral, qDay potassium chloride (PMX) 20 mEq/100 mL 20 mEq 100 mL, IV Piggyback, AsDirected potassium chloride 20 mEq ER tablet 20 mEq 1 tab(s), Oral, AsDirected potassium chloride 20 mEq ER tablet 40 mEq 2 tab(s), Oral, AsDirected potassium chloride 20 mEq ER tablet 40 mEq 2 tab(s), Oral, AsDirected Lab Results No 36 Hour Lab Data Imaging Results and Diagnostics XR Chest 1 View Result Date: April 08, 2025 Verified By: ZE HACKETT DO CLINICAL STATEMENT: IMPRESSION: Mildly increased central venous congestion and bilateral interstitialprominence is concerning for worsening pulmonary edema. XR Chest 1 View Result Date: April 07, 2025 Verified By: RIGO METZ MD CLINICAL STATEMENT: IMPRESSION: Low lung volumes and increased basilar atelectasis/consolidation versus softtissue artifact XR Chest 1 View Result Date: April 06, 2025 Verified By: DOUGIE EVANS DO CLINICAL STATEMENT: IMPRESSION: Mild pulmonary edema pattern. CT Angio w/ + w/o Contrast/Dissection Result Date: April 05, 2025 Verified By: SHARMIN STEWARD MD CLINICAL STATEMENT: IMPRESSION: No evidence of acute thoracic aortic syndrome or other vascular abnormality. No acute chest findings. I have personally reviewed the images of this examination and agree with theresident's findings and interpretation. EKG No qualifying data available. Assessment/Plan 75-year-old fist female with past medical history of CAD, ESRD presented to [facility] on 04/04 for complaints of chest pain. EKG revealed a STEMI. Patient is now status post PCI to the LAD. On , patient was receiving hemodialysis when she began experiencing chest pain and became hypotensive. ECG at that time revealed new onset A-fib RVR and spontaneously reverts back to sinus. Patient remained hypotensive and was subsequently put on Levophed to maintain hemodynamics. Plan Anterior STEMI status post LAD stent on 04/04/2025 (remote RCA and LCx stents) - ECG on 04/[address] elevations in V2, V3 suggestive of LAD infarction - s/p PCI to the LAD w/ stent placement - LFT improving, will initiate patient on Lipitor 40 mg. - Continue with DAPT with aspirin and Plavix x 1 year minimum. - PT/OT on board, planning discharge to inpatient rehab. Social work assistance appreciated. - 04/11- PT recommends inpatient therapy for patient to gain strength prior to discharge - Holding off statin for now as well, can consider resuming this on an outpatient basis. New onset atrial fibrillation with RVR, spontaneously converted to NSR -transient episode - 04/06- patient found A-fib RVR during hemodialysis - Continue oral amiodarone to 200 mg daily. Will keep this dose at discharge for maintenance. - As this was a transient episode that was short-lived during dialysis, will not commit the patient to long-term anticoagulation at this point. New onset cardiomyopathy, acute HFrEF in the setting of ACS (component of CS-AMI, now resolved) - echo 04/05 showed severely reduced systolic dysfunction with an estimated EF of 20 to 25%. There is additionally akinesis of the apical apical myocardium with systolic dysfunction present but unable to assess fully (prev 03/19/2022 EF 55-60%) - Started Jardiance for HF GDMT benefit. Continue as outpatient if nephrology is comfortable with this as well. ESRD on hemodialysis MWF - Patient continued to tolerate dialysis without pressor support. A-line removed. - Appreciate nephrology assistance with hemodialysis Cardiogenic shock-resolved Low-flow low gradient Hypertension Dyslipidemia Peripheral vascular disease Leukocytosis Patient was planned for discharged on 04/13 however due to transportation issues from her accepting facility to HD center, this is delayed. Pending assistance, patient probably, can be only discharged on Wednesday. Digitally Signed by DOMINGO SANTIZO MD on 04/14/2025 09:25 PM [facility] 04-16-2025 Note Discharge Instructions Thank you for allowing [facility] to assist you with your healthcare needs. The following is important discharge information regarding your hospital visit. Your Care Team BELL MAHER MD What to do next Scheduled Follow-Up Appointments Appointment Type When With Where Contact Information StatusHEM ONC OV Follow Up w/ 05/14/2025 10:15 AM EDT STACEY RODRIGUEZ MD [facility] Confirmed CV OV Hospital Follow Up 05/15/2025 10:00 AM EDT ULAN DANIEL APRN-E[facility] RESEARCH ANALYST [facility] CVC Confirmed Follow Up Appointments Follow Up with [facility] Additional Information: Please call N report prior to DC. [phone]. Room #822 [place] Follow Up with BELL MAHER MD Where:[address] [place] [address]- Additional Information: PLEASE CALL THIS OFFICE TO SCHEDULE A HOSPITAL FOLLOW UP APPOINTMENT. Follow Up with [facility] Additional Information: Provider will contact you after discharge to schedule home nursing and therapy visits. Please call [phone] if you have questions related to home healthcare. . Follow Up with [facility] Where:[address] [place] [id number]- Additional Information: Cardiac rehabilitation is a vital part of your recovery and long-term heart health following your hospital stay. It is a medically supervised exercise and education program designed to improve your physical fitness, manage heart-related risk factors, and support emotional well-being. A cardiac rehab food service team member will contact you soon to schedule your follow-up appointment. If you have any questions please call [phone]. Follow Up with Mickey Peña/Adrian/Akosua Chair time 6:45 AM, first appt is on Wednesday04/18/25. Please arrive at 6:15 for first appt. When:04/18/2025 06:15 AM EDT Follow Up with LUAN DANIEL MARIE-ADDISON When:05/15/2025 10:00 AM EDT Where:[address] [facility] [address] [place] [address]- [phone] The Following Activity and Diet Have Been Ordered for You Transfer of Care Activity - Ordered -- Activity As Tolerated, 04/16/25 13:24:00 EDT Transfer of Care Diet - Ordered -- Type of Diet: Regular Diet, 04/16/25 13:24:00 EDT The Following Equipment Has Been Ordered for You No qualifying data available. The Following Treatments Have Been Ordered for You Discharge Labs No qualifying data available. Discharge Radiology No qualifying data available. Other Therapies Discharge Event Monitor Instructions - Ordered -- 04/12/25 21:12:09 EDT, You have been ordered mobile outpatient telemetry. You should receive a device in the mail with further instructions. If you have not received a device within 14 days after discharge, please call [facility] at [phone]. Post Acute Orders Transfer of Care Admission Level of Care - Ordered -- Level of Care SNF, 04/16/25 14:59:19 EDT Transfer of Care Code Status - Ordered -- Full Code, Constant Order Transfer of Care Communication Order - Ordered -- Expect less than 30 day stay., 04/16/25 14:59:19 EDT Transfer of Care Orders Electronically Signed By - Ordered -- 04/16/25 13:24:00 EDT, VICTOR M NAGEL MD Transfer of Care Prognosis - Ordered -- Good, Patient Aware: Yes Transfer of Care Rehab Potential - Ordered -- Rehab potential good, 04/16/25 13:24:37 EDT Someone Will Contact You Regarding These Home Health Referrals No home referrals have been ordered for you. No one will call you. Allergies Macrodantin (Moderate) HIVES Welchol Unsure Zaroxolyn Unsure colesevelam Unknown metOLazone Unknown nitrofurantoin Unknown pravastatin liver simvastatin Liver traMADol GI upset Functional/Cognitive Assessment Assessment OutcomeAssistive Device Walker Orientation Assessment Oriented x 4 Medications Please ask your primary doctor or pharmacist before taking any other medication not listed, including over the counter drugs, herbal medications, vitamins and or supplements as they may interact with your home medications. What How Much When Instructions Last Dose Changed clopidogrel (Plavix 75 mg oral tablet) 1 tab(s) by mouth Once a day Pickup at [facility] Unchanged acetaminophen-hydrocodone (acetaminophen-hydrocodone 325 mg-5 mg oral tablet) 1 tab(s) by mouth Two (2) times a day Unchanged albuterol (albuterol 2.5 mg/ 3 mL (0.083%) inhalation solution) 3 Milliliter by inhalation Every 6 hours as needed for for wheezing Unchanged amiodarone (amiodarone 200 mg oral tablet) 1 tab(s) by mouth Once a day Pickup at [facility] Unchanged aspirin (aspirin 81 mg oral tablet, chewable) 1 tab(s) by mouth Every day Pickup at [facility] Unchanged herbal/ nutritional product (Probiotic) 1tab by mouth Once a day Unchanged hydrOXYzine (hydrOXYzine hydrochloride 25 mg oral tablet) 1 tab(s) by mouth Four (4) times a day as needed for as needed for itching Duration: 30 Days Unchanged levETIRAcetam (levETIRAcetam 500 mg oral tablet) 1 tab(s) by mouth Two (2) times a day Unchanged levothyroxine (levothyroxine 50 mcg (0.05 mg) oral tablet) 1 tab(s) by mouth Once a day Unchanged linaclotide (Linzess 290 mcg oral capsule) 1 cap by mouth Once a day Unchanged melatonin 30 Milligram by mouth Daily at bedtime Unchanged metoprolol (metoprolol succinate 25 mg oral TABLET extended release) 1 tab(s) by mouth Once a day Do not crush or chew (controlled release) Unchanged midodrine (midodrine 10 mg oral tablet) 1 tab(s) TAKE 1 TABLET BY MOUTH ON DIALYSIS DAYS, TAKE 1 HOUR BEFORE Unchanged montelukast (Singulair 10 mg oral tablet) 1 tab(s) by mouth Once a day (in the evening) Unchanged nitroGLYcerin (Nitrostat 0.4 mg sublingual tablet) 1 tab(s) under the tongue Every 5 minutes as needed for as needed for chest pain Unchanged ondansetron (Zofran 4 mg oral tablet) 1 tab(s) by mouth Every 6 hours as needed for Nausea/Vomiting Duration: 30 Days Unchanged pantoprazole (Protonix 40 mg oral enteric coated tablet) 1 tab(s) by mouth Once a day before a meal Pickup at [facility] Unchanged polyethylene glycol 3350 (MiraLax oral powder for reconstitution) See instructions gram(s) Oral prn Unchanged potassium chloride (potassium chloride 20 mEq oral tablet, extended release) 2 tab(s) by mouth Every Sun / Tues / Thurs / Sat Unchanged ranolazine (Ranexa 500 mg oral tablet, extended release) 1 tab(s) by mouth Two (2) times a day Unchanged sevelamer (sevelamer carbonate 800 mg oral tablet) 1 tab(s) by mouth Three (3) times a day Pharmacy Information [facility]: [address] [place], [place] [id number] [phone] What How Much When Why Comments Stop Taking furosemide (furosemide 40 mg oral tablet) 1 tab(s) by mouth Once a day Stop Taking omeprazole (omeprazole 40 mg oral delayed release capsule) 1 cap by mouth Two (2) times a day Stop Taking rosuvastatin (rosuvastatin 40 mg oral tablet) 1 tab(s) by mouth Every day Hypothyroidism Hypertension Please take this list to your next doctor s visit. Bring all medications you take, including over the counter medications, herbals and other supplements with you to your doctor s visit. Patients and families are reminded to discard old lists and to update any records with all medication providers or retail pharmacies. Additional Information VACCINATE! IT SAVES LIVES! Members of the community who have not yet received the COVID-19 vaccine and would like to receive it can visit one of [facility] vaccine clinics. There are many vaccine clinic locations within the [facility]. For locations and available times, please visit www.[email or web address].[place].gov/. It is important to note that some COVID mobile vaccine clinics are held outdoors and may be canceled in rainy or stormy conditions. To learn more about pediatric vaccinations (ages 5-11), we invite you to visit the [facility] webpage. [email or web address]/pages/ [email or web address]-[email or web address]-Frequently-Ask ed-Questions.html To learn more about the COVID-19 vaccine, we invite you to visit the CDC website for a list of frequently asked questions. https://www.cdc.gov/coronavirus/2019- ncov/vaccines/faq.html [facility] Patient Portal Access Instructions: Stay connected with your healthcare team and access your personal medical information anytime with the [facility] Patient Portal.If you would like a full copy of your medical records, please contact the [facility] Medical Records Department, Wednesday through Wednesday between 8a.m. and 4:30p.m. Please follow the directions below to access the portal: 1.Access the email account you provided upon registration to the [facility].2.Look for an invitation email from [facility].3.Open the email and access the invitation link: Accept Invitation to [facility]4.Fill in the required carroll to create your account. Sign into www.[employer]) with your username and password that you created in the above steps to stay up to date. You can then view a summary of results, a summary of your visits, and the ability to download your summaries to your computer or send the information securely to a physician. Remember that your healthcare information is confidential, so carefully consider who you will allow to register on the [facility] Patient Portal for access to your information. You can also access the [facility] Patient Portal on the i4.ms ricardo. Simply click on Health Records under Health Data and then click on the [employer] logo. HOW TO SAFELY DISPOSE OF PRESCRIPTION MEDICATIONS Please use one of the following methods to safely dispose of your unused medications. 1.Use a drug disposal kit: the drug disposal pouch allows you to safely discard your old and unused drugs. Ask your nurse to give you one when you are discharged.2.Visit a local take-back location: Many local pharmacies and police departments have programs that collect old and unwanted prescription drugs. Call your local pharmacy or go to http://bit.Endra/0O8Ul3a to find one close to you.3.Make use of household items: Use cat litter or old coffee grounds to dispose medications if other options are not available. Mix your drugs with these household products, seal them in an airtight container and throw it into the garbage. Call [facility]: [phone] to be sure your drugs can be disposed of in this way. Some medicines may require a different approach.4.Never flush your medications down the toilet. IF YOU HAVE BEEN PRESCRIBED AN OPIOID FOR PAIN If you have been prescribed an opioid (such as hydrocodone, oxycodone or morphine), it is critical to understand the possible side effects and risks of opioid pain medications. Even when taken as directed, opioids can have several side effects including: Tolerance, meaning you might need to take more of a medication for the same pain relief. Nausea, vomiting and/or constipation. Sleepiness, dizziness, dry mouth, confusion, depression or itching. Physical dependence, meaning you have withdrawal symptoms when a medication is stopped, can develop within a few days. KNOW YOUR RESPONSIBILITIES It is important to know exactly how much and how often to take the opioid pain medications you are prescribed. Never take opioids in higher amounts or more often than prescribed. Do not combine opioids with alcohol or other drugs that cause drowsiness, such as benzodiazepines, also known as benzos, including diazepam and alprazolam, muscle relaxants or sleep aids. Never sell or share prescription opioids. This is illegal. Store opioids in a secure place and out of reach of others (including children, family, friends and visitors). The last page of this document has been signed and retained as a CHART COPY. Signatures Patient Education Materials Medication Leaflets My discharge plan and instructions have been reviewed and explained to me and ICAT ANDRA L understand my current condition and have read and understand these discharge instructions. I have received a written copy of the plan/instructions. If I have questions, I am aware that I should contact my doctor. Patient/Stevedoring Supervisor Signature: __ Date/Time: Relationship to Patient: Witness Name/Signature: Date/Time: [facility] 04-16-2025 Cardiology Progress note Date of Service 04/15/2025 17:30:23 Subjective Patient was examined at bedside today morning. No acute complaints overnight. She was comfortably resting on chair and was answering to questions. Objective Vitals and Measurements T: 36.6 C (Oral) TMIN: 36.4 C (Oral) TMAX: 36.8 C (Oral) HR: 76 (Monitored) RR: 16 BP: 92/52 SpO2: 97% WT: 86.1 kg Intake and Output 7AM Yesterday to 7AM Today Intake and Output (Last 24 hours) Intake Oral Intake 1200.00 Supplement Intake 570.00 Output Urine Voided 350.00 Urinary Catheter Output: 200.00 Stool Count 2.00 Urine Count 2.00 Total Summary Total Intake 1770.00 Total Output 550.00 Fluid Balance 1220.00 Physical Exam General: Alert, in no acute discomfort. Skin: intact, warm, and dry. no rashes or lesions on exposed skin. Head: normocephalic, atraumatic. Neck: supple, trachea midline. Normal ROM. Eyes: Extraocular movements are intact. Normal conjunctiva. Pupils equal and round b/l ENT: Oral mucous membranes moist. Posterior pharynx without erythema or exudate. Cardiovascular: regular rate and rhythm. no murmurs, rubs, gallops. Respiratory: Lungs are clear without any wheezes, rhonchi, rales Abdomen: Bowel sounds normal present. Abdomen soft, nontender. No guarding. No rebound. No masses or rigidity. Weight Dosing Weight: 86.1 kg (04/15/25) Dosing Weight: 81.1 kg (04/13/25) Medications Medications (32) Active Scheduled: (16) acetaminophen-HYDROcodone 325-5 mg tablet 1 tab(s), Oral, BID amiodarone 200 mg tablet 200 mg 1 tab(s), Oral, qDay aspirin 81 mg Chewable 81 mg 1 tab(s), Oral, Daily atorvastatin 40 mg tablet 40 mg 1 tab(s), Oral, qDay clopidogrel 75 mg Tablet 75 mg 1 tab(s), Oral, qDay empagliflozin 10 mg tablet 10 mg 1 tab(s), Oral, qAM levETIRAcetam 500 mg tablet 500 mg 1 tab(s), Oral, BID levothyroxine 50 mcg tablet 50 mcg 1 tab(s), Oral, qDay melatonin 5 mg tablet 30 mg 6 tab(s), Oral, qHS menthol-zinc oxide topical ointment 4oz 1 ricardo, Topical, amhs metoprolol succinate 25 mg ER tablet 12.5 mg 0.5 tab(s), Oral, qDay miconazole topical 2% Powder 1 ricardo, Topical, BID midodrine 5 mg tablet 10 mg 2 tab(s), Oral, Mon/Wed/Fri montelukast 10 mg Tablet 10 mg 1 tab(s), Oral, qPM nitroglycerin 2% Ointment UD Packet 0.5 inch(es), Topical, BID pantoprazole 40 mg EC tablet 40 mg 1 tab(s), Oral, qDayAC Continuous: (0) PRN: (16) acetaminophen 325 mg Tablet 650 mg 2 tab(s), Oral, q4h albuterol 0.083% Soln UD (2.5mg/3 mL) 2.5 mg 3 mL, Inhalation, q6h dextrose 50% Solution Disp syringe 50 mL 25 gram(s) 50 mL, IV Push, AsDirected docusate sodium 100 mg Capsule 100 mg 1 cap(s), Oral, BID magnesium sulfate 4 gram(s)/100mL PMX 4 g 100 mL, IV Piggyback, AsDirected magnesium sulfate 50% (500mg/mL) 6 g 12 mL, IV Piggyback, AsDirected magnesium sulfate PMX 2 g 50 mL, IV Piggyback, AsDirected melatonin 3 mg tablet 3 mg 1 tab(s), Oral, qHS menthol-zinc oxide topical ointment 4oz 1 ricardo, Topical, BID nitroglycerin 0.4 mg Tablet (25/btl) 0.4 mg 1 tab(s), Sublingual, q5min ondansetron 2 mg/ 1 mL 2 mL INJ 2 mg 1 mL, IV Push, q4h polyethylene glycol 3350 - UD packet 17 gram(s) 15 mL, Oral, qDay potassium chloride (PMX) 20 mEq/100 mL 20 mEq 100 mL, IV Piggyback, AsDirected potassium chloride 20 mEq ER tablet 20 mEq 1 tab(s), Oral, AsDirected potassium chloride 20 mEq ER tablet 40 mEq 2 tab(s), Oral, AsDirected potassium chloride 20 mEq ER tablet 40 mEq 2 tab(s), Oral, AsDirected Lab Results 04/15 09:36 WBC: 7.8 Hgb: 9.4 L Hct: 28.8 L Platelet: 242 Neutrophil %: 63.8 Glucose Level: 108 Sodium Level: 135 L Potassium Level: 4.4 BUN: 41.0 H Creatinine Lvl (s): 4.35 H Imaging Results and Diagnostics XR Chest 1 View Result Date: April 08, 2025 Verified By: ZE HACKETT DO CLINICAL STATEMENT: IMPRESSION: Mildly increased central venous congestion and bilateral interstitialprominence is concerning for worsening pulmonary edema. XR Chest 1 View Result Date: April 07, 2025 Verified By: RIGO METZ MD CLINICAL STATEMENT: IMPRESSION: Low lung volumes and increased basilar atelectasis/consolidation versus softtissue artifact XR Chest 1 View Result Date: April 06, 2025 Verified By: DOUGIE EVANS DO CLINICAL STATEMENT: IMPRESSION: Mild pulmonary edema pattern. CT Angio w/ + w/o Contrast/Dissection Result Date: April 05, 2025 Verified By: SHARMIN STEWARD MD CLINICAL STATEMENT: IMPRESSION: No evidence of acute thoracic aortic syndrome or other vascular abnormality. No acute chest findings. I have personally reviewed the images of this examination and agree with theresident's findings and interpretation. EKG No qualifying data available. Assessment/Plan Orders: atorvastatin, 40 mg= 1 tab(s), Oral, qDay Basic Metabolic Panel(BMP), 04/15/25 5:00:00 EDT, Next AM Draw (one day only), Blood, q24h, for 30 day(s), Preferred Lab: [facility], Stop date 05/14/25 5:00:00 EDT Complete Blood Count(CBC), 04/15/25 5:00:00 EDT, Next AM Draw (one day only), Blood, q24h, for 30 day(s), Preferred Lab: [facility], Stop date 05/14/25 5:00:00 EDT 75-year-old fist female with past medical history of CAD, ESRD presented to [facility] on 04/04 for complaints of chest pain. EKG revealed a STEMI. Patient is now status post PCI to the LAD. On , patient was receiving hemodialysis when she began experiencing chest pain and became hypotensive. ECG at that time revealed new onset A-fib RVR and spontaneously reverts back to sinus. Patient remained hypotensive and was subsequently put on Levophed to maintain hemodynamics. Plan Anterior STEMI status post LAD stent on 04/04/2025 (remote RCA and LCx stents) - ECG on 04/[address] elevations in V2, V3 suggestive of LAD infarction - s/p PCI to the LAD w/ stent placement - LFT improving, will initiate patient on Lipitor 40 mg. - Continue with DAPT with aspirin and Plavix x 1 year minimum. - PT/OT on board, planning discharge to inpatient rehab. Social work assistance appreciated. - 04/11- PT recommends inpatient therapy for patient to gain strength prior to discharge - Holding off statin for now as well, can consider resuming this on an outpatient basis. New onset atrial fibrillation with RVR, spontaneously converted to NSR -transient episode - 04/06- patient found A-fib RVR during hemodialysis - Continue oral amiodarone to 200 mg daily. Will keep this dose at discharge for maintenance. - As this was a transient episode that was short-lived during dialysis, will not commit the patient to long-term anticoagulation at this point. New onset cardiomyopathy, acute HFrEF in the setting of ACS (component of CS-AMI, now resolved) - echo 04/05 showed severely reduced systolic dysfunction with an estimated EF of 20 to 25%. There is additionally akinesis of the apical apical myocardium with systolic dysfunction present but unable to assess fully (prev 03/19/2022 EF 55-60%) - Started Jardiance for HF GDMT benefit. Continue as outpatient if nephrology is comfortable with this as well. ESRD on hemodialysis MWF - Patient continued to tolerate dialysis without pressor support. A-line removed. - Appreciate nephrology assistance with hemodialysis Cardiogenic shock-resolved Low-flow low gradient Hypertension Dyslipidemia Peripheral vascular disease Leukocytosis Patient was planned for discharged on 04/13 however due to transportation issues from her accepting facility to HD center, this is delayed. Pending SW assistance, patient probably, can be only discharged tomorrow. Digitally Signed by DOMINGO SANTIZO MD on 04/15/2025 05:32 PM [facility] 04-16-2025 Discharge summary Date of Service 04/16/2025 16:34:30 Discharge Diagnosis Anterior STEMI Cardiogenic shock-resolved Low-flow low gradient Hypertension Dyslipidemia Peripheral vascular disease Leukocytosis [1] Hospital Course 75-year-old fist female with past medical history of CAD, ESRD presented to [facility] on 04/04 for complaints of chest pain. EKG revealed a STEMI. Patient is now status post PCI to the LAD. Course complicated by atrial fibrillation requiring amiodarone and heparin however this was during dialysis and she reverted back to sinus rhythm. Patient remained hypotensive and was subsequently put on Levophed to maintain hemodynamics. Was weaned off levophed on 04/08. As atrial fibrillation was a transient episode that was short-lived during dialysis, did not commit the patient to long-term anticoagulation at this point. Will order a 30-day event monitor to record any AF burden to review on outpatient basis. If significant, can consider therapeutic . Patient was skilled for inpatient rehabillitation. Allergies Macrodantin (Moderate) HIVES Welchol Unsure Zaroxolyn Unsure colesevelam Unknown metOLazone Unknown nitrofurantoin Unknown pravastatin liver simvastatin Liver traMADol GI upset Consults Consult to Physician - Ordered -- 04/04/25 11:29:00 EDT, ROSY BA MD, Routine, Dialysis Consult to Physician - Ordered -- 04/04/25 12:29:00 EDT, RIGO PEREZ MD, Routine, Other, ESRD on IHD Imaging Results and Diagnostics Summary: 1. Left ventricle: The cavity size is normal. Wall thickness is normal. Systolic function is severely reduced. The estimated ejection fraction is 20-25%. Akinesis of the apical myocardium. Diastolic dysfunction present but unable to assess severity. 2. Aortic valve: The annulus is mildly to moderately calcified. The leaflets are mildly thickened and mildly calcified. Thickening, consistent with sclerosis. Cusp separation is mildly reduced. There is at least mild to moderate stenosis. The peak systolic velocity is 2.3 m/sec. The mean systolic gradient is 10 mm Hg. The LVOT to aortic valve VTI ratio is 0.31. The valve area by VTI is 1.0 cm . 3. Mitral valve: The findings are consistent with trivial stenosis. 4. Right ventricle: Systolic function is mildly reduced. 5. Right atrium: The estimated right atrial pressure is 3 mm Hg. Recommendations: ICM/LAD territory vs Stress induced CM [2] SUMMARY: 1. 1st lesion: Stent placement was performed. A 3 mm (D) x 32 mm (L), Synergy XD stent was used. The stent was advanced across the lesion and deployed with two inflations and a maximum pressure of 12 brendon. 2. LAD: Mid-vessel lesion: The diagnostic study demonstrated a 100% . The distal vessel supplies a large vascular territory. The lesion is a likely culprit for the patient's clinical presentation. The lesion presents an ACC/AHA type C high risk lesion for intervention. Stent placement was performed, with balloon angioplasty, resulting in an excellent angiographic appearance (see 1st lesion). Following intervention, there is a residual 0% stenosis with YAMILET grade 3 flow (brisk flow). 3. 2nd diagonal: Ostial lesion: There is a chronic total occlusion. RECOMMENDATIONS: 1. Add aspirin, 81 mg PO daily. 2. Add clopidogrel (Plavix), 75 mg PO daily, for 12 month(s). 3. Patient management should include aggressive medical therapy. [3] XR Chest 1 View Result Date: April 08, 2025 Verified By: ZE HACKETT DO CLINICAL STATEMENT: IMPRESSION: Mildly increased central venous congestion and bilateral interstitialprominence is concerning for worsening pulmonary edema. XR Chest 1 View Result Date: April 07, 2025 Verified By: RIGO METZ MD CLINICAL STATEMENT: IMPRESSION: Low lung volumes and increased basilar atelectasis/consolidation versus softtissue artifact XR Chest 1 View Result Date: April 06, 2025 Verified By: DOUGIE EVANS DO CLINICAL STATEMENT: IMPRESSION: Mild pulmonary edema pattern. CT Angio w/ + w/o Contrast/Dissection Result Date: April 05, 2025 Verified By: SHARMIN STEWARD MD CLINICAL STATEMENT: IMPRESSION: No evidence of acute thoracic aortic syndrome or other vascular abnormality. No acute chest findings. I have personally reviewed the images of this examination and agree with theresident's findings and interpretation. Physical Exam Vitals and Measurements T: 35.3 C (Skin) TMIN: 35.3 C (Skin) TMAX: 36.7 C (Oral) HR: 91 RR: 18 BP: 105/68 SpO2: 98% WT: 80.7 kg Weight Dosing Weight: 80.7 kg (04/16/25) Dosing Weight: 83.5 kg (04/16/25) General Appearance: NAD EENT: MOIST MEMBRANES Neck: NO APPRECIABLE JVD Cardiac: RRR Lungs: CTAB Abdomen: NON TENDER TO PALPATION Extremities: NO BILATERAL EDEMA Neurological: AOX3 Psychiatric: NORMAL AFFECT Code Status Code Status - Ordered -- 04/04/25 11:26:00 EDT, Full Code, Constant Order Admission Date 04/04/2025 10:19:48 Discharge Date 04/16/2025 16:42:46 Medications Changed clopidogrel (Plavix 75 mg oral tablet)1 tab(s) by mouth once a day. Refills: 3. Unchanged acetaminophen-hydrocodone (acetaminophen-hydrocodone 325 mg-5 mg oral tablet)1 tab(s) by mouth two (2) times a day. albuterol (albuterol 2.5 mg/3 mL (0.083%) inhalation solution)3 Milliliter by inhalation every 6 hours as needed for wheezing. Refills: 0. amiodarone (amiodarone 200 mg oral tablet)1 tab(s) by mouth once a day. Refills: 1. aspirin (aspirin 81 mg oral tablet, chewable)1 tab(s) by mouth every day. Refills: 3. herbal/nutritional product (Probiotic)1tab by mouth once a day. hydrOXYzine (hydrOXYzine hydrochloride 25 mg oral tablet)1 tab(s) by mouth four (4) times a day as needed as needed for itching for 30 Days. Refills: 2. levETIRAcetam (levETIRAcetam 500 mg oral tablet)1 tab(s) by mouth two (2) times a day. levothyroxine (levothyroxine 50 mcg (0.05 mg) oral tablet)1 tab(s) by mouth once a day. Refills: 3. linaclotide (Linzess 290 mcg oral capsule)1 cap by mouth once a day. [id number] Milligram by mouth daily at bedtime. metoprolol (metoprolol succinate 25 mg oral TABLET extended release)1 tab(s) by mouth once a day. Do not crush or chew (controlled release). Refills: 2. midodrine (midodrine 10 mg oral tablet)1 tab(s). TAKE 1 TABLET BY MOUTH ON DIALYSIS DAYS, TAKE 1 HOUR BEFORE. montelukast (Singulair 10 mg oral tablet)1 tab(s) by mouth once a day (in the evening). Refills: 3. nitroGLYcerin (Nitrostat 0.4 mg sublingual tablet)1 tab(s) under the tongue every 5 minutes as needed as needed for chest pain. Refills: 2. ondansetron (Zofran 4 mg oral tablet)1 tab(s) by mouth every 6 hours as needed Nausea/Vomiting for 30 Days. Refills: 0. pantoprazole (Protonix 40 mg oral enteric coated tablet)1 tab(s) by mouth once a day before a meal. Refills: 1. polyethylene glycol 3350 (MiraLax oral powder for reconstitution)gram(s) Oral prn. potassium chloride (potassium chloride 20 mEq oral tablet, extended release)2 tab(s) by mouth every Sun / / / Sat. Refills: 2. ranolazine (Ranexa 500 mg oral tablet, extended release)1 tab(s) by mouth two (2) times a day. Refills: 1. sevelamer (sevelamer carbonate 800 mg oral tablet)1 tab(s) by mouth three (3) times a day. Discontinued furosemide (furosemide 40 mg oral tablet)1 tab(s) by mouth once a day. Refills: 1. omeprazole (omeprazole 40 mg oral delayed release capsule)1 cap by mouth two (2) times a day. Refills: 0. rosuvastatin (rosuvastatin 40 mg oral tablet)1 tab(s) by mouth every day. Refills: 3. Follow Up Follow Up with [facility] Additional Information: Please call N report prior to DC. [phone]. Room [address] [place] [address] Follow Up with BELL MAHER MD Where:[address] [place] [address]- Additional Information: PLEASE CALL THIS OFFICE TO SCHEDULE A HOSPITAL FOLLOW UP APPOINTMENT. Follow Up with [facility] Additional Information: Provider will contact you after discharge to schedule home nursing and therapy visits. Please call [phone] if you have questions related to home healthcare. . Follow Up with [facility] Where:[address] [place] [address]- Additional Information: Cardiac rehabilitation is a vital part of your recovery and long-term heart health following your hospital stay. It is a medically supervised exercise and education program designed to improve your physical fitness, manage heart-related risk factors, and support emotional well-being. A cardiac rehab food service team member will contact you soon to schedule your follow-up appointment. If you have any questions please call [phone]. Follow Up with Mickey Peña/W/F Chair time 6:45 AM, first appt is on Wednesday04/18/25. Please arrive at 6:15 for first appt. When:04/18/2025 06:15 AM EDT Follow Up with LUAN DANIEL When:05/15/2025 10:00 AM EDT Where:[address] [facility] [address] [place] [address]- [phone] Follow Up Appointments No qualifying data available. Follow Up Labs/Studies Discharge Labs No Follow-up Labs Discharge Studies No Follow-up Studies Discharge Diet Transfer of Care Diet - Ordered -- Type of Diet: Regular Diet, 04/16/25 13:24:00 EDT Discharge Activity Transfer of Care Activity - Ordered -- Activity As Tolerated, 04/16/25 13:24:00 EDT Condition on Discharge Improved Discharge Disposition SNF Information Provided To Patient [1] Progress Note; DOMINGO SANTIZO MD 04/15/2025 17:29 EDT [2] Echocardiogram, Adult - CV; Nimesh Garcia 04/05/2025 18:11 EDT [3] Cardiac Catheterization -CV; Renetta Kingsley RN 04/04/2025 10:41 EDT Digitally Signed by JOSE RAFAEL SAMS MD on 04/16/2025 04:46 PM Digitally Signed by VICTOR M NAGEL MD [facility] 04-16-2025 Note Discharge Instructions Thank you for allowing [facility] to assist you with your healthcare needs. The following is important discharge information regarding your hospital visit. Your Care Team BELL MAHER MD What to do next Scheduled Follow-Up Appointments Appointment Type When With Where Contact Information StatusHEM ONC OV Follow Up adrian/ 05/14/2025 10:15 AM EDT STACEY RODRIGUEZ MD [facility] Confirmed CV OV Hospital Follow Up 05/15/2025 10:00 AM EDT LUAN DANIEL [facility] Confirmed Follow Up Appointments Follow Up with [facility] Additional Information: Please call N2N report prior to DC. [phone]. Room #[address] [place] [address] Follow Up with BELL MAHER MD Where:[address] [place] [address]- Additional Information: PLEASE CALL THIS OFFICE TO SCHEDULE A HOSPITAL FOLLOW UP APPOINTMENT. Follow Up with [facility] Additional Information: Provider will contact you after discharge to schedule home nursing and therapy visits. Please call [phone] if you have questions related to home healthcare. . Follow Up with [facility] Where:[address] [place] [address]- Additional Information: Cardiac rehabilitation is a vital part of your recovery and long-term heart health following your hospital stay. It is a medically supervised exercise and education program designed to improve your physical fitness, manage heart-related risk factors, and support emotional well-being. A cardiac rehab food service team member will contact you soon to schedule your follow-up appointment. If you have any questions please call [phone]. Follow Up with Mickey Graham Chair time 6:45 AM, first appt is on Wednesday04/18/25. Please arrive at 6:15 for first appt. When:04/18/2025 06:15 AM EDT Follow Up with LUAN DANIEL When:05/15/2025 10:00 AM EDT Where:[address] [facility] [place] [address]- [phone] The Following Activity and Diet Have Been Ordered for You Transfer of Care Activity - Ordered -- Activity As Tolerated, 04/16/25 13:24:00 EDT Transfer of Care Diet - Ordered -- Type of Diet: Regular Diet, 04/16/25 13:24:00 EDT The Following Equipment Has Been Ordered for You No qualifying data available. The Following Treatments Have Been Ordered for You Discharge Labs No qualifying data available. Discharge Radiology No qualifying data available. Other Therapies Discharge Event Monitor Instructions - Ordered -- 04/12/25 21:12:09 EDT, You have been ordered mobile outpatient telemetry. You should receive a device in the mail with further instructions. If you have not received a device within 14 days after discharge, please call [facility] at [phone]. Post Acute Orders Transfer of Care Admission Level of Care - Ordered -- Level of Care SNF, 04/16/25 14:59:19 EDT Transfer of Care Code Status - Ordered -- Full Code, Constant Order Transfer of Care Communication Order - Ordered -- Expect less than 30 day stay., 04/16/25 14:59:19 EDT Transfer of Care Orders Electronically Signed By - Ordered -- 04/16/25 13:24:00 EDT, VICTOR M NAGEL MD Transfer of Care Prognosis - Ordered -- Good, Patient Aware: Yes Transfer of Care Rehab Potential - Ordered -- Rehab potential good, 04/16/25 13:24:37 EDT Someone Will Contact You Regarding These Home Health Referrals No home referrals have been ordered for you. No one will call you. Allergies Macrodantin (Moderate) HIVES Welchol Unsure Zaroxolyn Unsure colesevelam Unknown metOLazone Unknown nitrofurantoin Unknown pravastatin liver simvastatin Liver traMADol GI upset Medications Please ask your primary doctor or pharmacist before taking any other medication not listed, including over the counter drugs, herbal medications, vitamins and or supplements as they may interact with your home medications. What How Much When Instructions Last Dose Changed clopidogrel (Plavix 75 mg oral tablet) 1 tab(s) by mouth Once a day Pickup at [facility] Unchanged acetaminophen-hydrocodone (acetaminophen-hydrocodone 325 mg-5 mg oral tablet) 1 tab(s) by mouth Two (2) times a day Unchanged albuterol (albuterol 2.5 mg/ 3 mL (0.083%) inhalation solution) 3 Milliliter by inhalation Every 6 hours as needed for for wheezing Unchanged amiodarone (amiodarone 200 mg oral tablet) 1 tab(s) by mouth Once a day Pickup at [facility] Unchanged aspirin (aspirin 81 mg oral tablet, chewable) 1 tab(s) by mouth Every day Pickup at [facility] Unchanged herbal/ nutritional product (Probiotic) 1tab by mouth Once a day Unchanged hydrOXYzine (hydrOXYzine hydrochloride 25 mg oral tablet) 1 tab(s) by mouth Four (4) times a day as needed for as needed for itching Duration: 30 Days Unchanged levETIRAcetam (levETIRAcetam 500 mg oral tablet) 1 tab(s) by mouth Two (2) times a day Unchanged levothyroxine (levothyroxine 50 mcg (0.05 mg) oral tablet) 1 tab(s) by mouth Once a day Unchanged linaclotide (Linzess 290 mcg oral capsule) 1 cap by mouth Once a day Unchanged melatonin 30 Milligram by mouth Daily at bedtime Unchanged metoprolol (metoprolol succinate 25 mg oral TABLET extended release) 1 tab(s) by mouth Once a day Do not crush or chew (controlled release) Unchanged midodrine (midodrine 10 mg oral tablet) 1 tab(s) TAKE 1 TABLET BY MOUTH ON DIALYSIS DAYS, TAKE 1 HOUR BEFORE Unchanged montelukast (Singulair 10 mg oral tablet) 1 tab(s) by mouth Once a day (in the evening) Unchanged nitroGLYcerin (Nitrostat 0.4 mg sublingual tablet) 1 tab(s) under the tongue Every 5 minutes as needed for as needed for chest pain Unchanged ondansetron (Zofran 4 mg oral tablet) 1 tab(s) by mouth Every 6 hours as needed for Nausea/Vomiting Duration: 30 Days Unchanged pantoprazole (Protonix 40 mg oral enteric coated tablet) 1 tab(s) by mouth Once a day before a meal Pickup at [facility] Unchanged polyethylene glycol 3350 (MiraLax oral powder for reconstitution) See instructions gram(s) Oral prn Unchanged potassium chloride (potassium chloride 20 mEq oral tablet, extended release) 2 tab(s) by mouth Every Sun / es / Thurs / Sat Unchanged ranolazine (Ranexa 500 mg oral tablet, extended release) 1 tab(s) by mouth Two (2) times a day Unchanged sevelamer (sevelamer carbonate 800 mg oral tablet) 1 tab(s) by mouth Three (3) times a day Pharmacy Information [facility]: [address] [place], [place] [id number] [phone] What How Much When Why Comments Stop Taking furosemide (furosemide 40 mg oral tablet) 1 tab(s) by mouth Once a day Stop Taking omeprazole (omeprazole 40 mg oral delayed release capsule) 1 cap by mouth Two (2) times a day Stop Taking rosuvastatin (rosuvastatin 40 mg oral tablet) 1 tab(s) by mouth Every day Hypothyroidism Hypertension Please take this list to your next doctor s visit. Bring all medications you take, including over the counter medications, herbals and other supplements with you to your doctor s visit. Patients and families are reminded to discard old lists and to update any records with all medication providers or retail pharmacies. Additional Information VACCINATE! IT SAVES LIVES! Members of the community who have not yet received the COVID-19 vaccine and would like to receive it can visit one of [facility] vaccine clinics. There are many vaccine clinic locations within the [facility]. For locations and available times, please visit [email or web address] It is important to note that some COVID mobile vaccine clinics are held outdoors and may be canceled in rainy or stormy conditions. To learn more about pediatric vaccinations (ages 5-11), we invite you to visit the [facility] webpage. [email or web address]-Frequently-[email or web address] ed-Questions.html To learn more about the COVID-19 vaccine, we invite you to visit the CDC website for a list of frequently asked questions.https://www.cdc.gov/coronav irus/2019-ncov/vaccines/faq.html [facility] Patient Portal Access Instructions: Stay connected with your healthcare team and access your personal medical information anytime with the [facility] Patient Portal. Please follow the directions below to create your [facility] account: 1.Access the email account you provided upon registration to the hospital/physician office.2.Look for an invitation email from [facility].3.Open the email and access the invitation link: Accept Invitation to [facility].4.Fill in the required carroll to create your account. To access your account, visit [employer]. Click the blue button labeled Access Patient Portal and then log in with the username and password that you created in the steps above. You will be able to view your test results, lab results, a summary of your visits, upcoming appointments and more. There is also a convenient messaging option where you can send secure messages to your provider. In addition, you will have the ability to download any documents or summaries to your computer and/or send the information securely to a physician. Remember that your healthcare information is confidential, so carefully consider who you will allow to register on the [facility] Patient Portal for access to your information. You can also access the [facility] Patient Portal on the [employer] ricardo. Simply click on Patient Portal and then log into your account. If you would like to receive a full copy of your medical records, please contact the [facility] Medical Records Department by calling [phone], Wednesday through Wednesday between 8 a.m. and 4:30 p.m. HOW TO SAFELY DISPOSE OF PRESCRIPTION MEDICATIONS Please use one of the following methods to safely dispose of your unused medications. 1.Use a drug disposal kit: the drug disposal pouch allows you to safely discard your old and unused drugs. Ask your nurse to give you one when you are discharged.2.Visit a local take-back location: Many local pharmacies and police departments have programs that collect old and unwanted prescription drugs. Call your local pharmacy or go to http://[employer].Endra/2S9Xn0q to find one close to you.3.Make use of household items: Use cat litter or old coffee grounds to dispose medications if other options are not available. Mix your drugs with these household products, seal them in an airtight container and throw it into the garbage. Call [facility]: [phone] to be sure your drugs can be disposed of in this way. Some medicines may require a different approach.4.Never flush your medications down the toilet. IF YOU HAVE BEEN PRESCRIBED AN OPIOID FOR PAIN If you have been prescribed an opioid (such as hydrocodone, oxycodone or morphine), it is critical to understand the possible side effects and risks of opioid pain medications. Even when taken as directed, opioids can have several side effects including: Tolerance, meaning you might need to take more of a medication for the same pain relief. Nausea, vomiting and/or constipation. Sleepiness, dizziness, dry mouth, confusion, depression or itching. Physical dependence, meaning you have withdrawal symptoms when a medication is stopped, can develop within a few days. KNOW YOUR RESPONSIBILITIES It is important to know exactly how much and how often to take the opioid pain medications you are prescribed. Never take opioids in higher amounts or more often than prescribed. Do not combine opioids with alcohol or other drugs that cause drowsiness, such as benzodiazepines, also known as benzos, including diazepam and alprazolam, muscle relaxants or sleep aids. Never sell or share prescription opioids. This is illegal. Store opioids in a secure place and out of reach of others (including children, family, friends and visitors). The last page of this document has been signed and retained as a CHART COPY. Signatures Patient Education Materials Medication Leaflets My discharge plan and instructions have been reviewed and explained to me and ICAT ANDRA L understand my current condition and have read and understand these discharge instructions. I have received a written copy of the plan/instructions. If I have questions, I am aware that I should contact my doctor. 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 Chart was reviewed. Spoke with nursing no active issues overnight. Intake and Output 7AM Yesterday to 7AM Today Intake and Output (Last 24 hours) Intake Oral Intake 1440.00 Supplement Intake 570.00 Output Urine Voided 150.00 Urinary Catheter Output: 400.00 Stool Count 1.00 Urine Count 1.00 Total Summary Total Intake 2010.00 Total Output 550.00 Fluid Balance 1460.00 Physical Exam Gen: Comfortable alert Neck: no JVP CV: HRRR , S1, S2 no rub Resp:CTAB, no wheezing or crackles ABD: Bowel sounds soft no rebound rigidity or guarding Ext: no cyanosis,clubbing , trace edema Right upper arm AV fistula good bruit and thrill Weight Dosing Weight: 86.1 kg (04/15/25) Dosing Weight: 81.1 kg (04/13/25) Medications Medications (32) Active Scheduled: (16) acetaminophen-HYDROcodone 325-5 mg tablet 1 tab(s), Oral, BID amiodarone 200 mg tablet 200 mg 1 tab(s), Oral, qDay aspirin 81 mg Chewable 81 mg 1 tab(s), Oral, Daily atorvastatin 40 mg tablet 40 mg 1 tab(s), Oral, qDay clopidogrel 75 mg Tablet 75 mg 1 tab(s), Oral, qDay empagliflozin 10 mg tablet 10 mg 1 tab(s), Oral, qAM levETIRAcetam 500 mg tablet 500 mg 1 tab(s), Oral, BID levothyroxine 50 mcg tablet 50 mcg 1 tab(s), Oral, qDay melatonin 5 mg tablet 30 mg 6 tab(s), Oral, qHS menthol-zinc oxide topical ointment 4oz 1 ricardo, Topical, amhs metoprolol succinate 25 mg ER tablet 12.5 mg 0.5 tab(s), Oral, qDay miconazole topical 2% Powder 1 ricardo, Topical, BID midodrine 5 mg tablet 10 mg 2 tab(s), Oral, Mon/Wed/Fri montelukast 10 mg Tablet 10 mg 1 tab(s), Oral, qPM nitroglycerin 2% Ointment UD Packet 0.5 inch(es), Topical, BID pantoprazole 40 mg EC tablet 40 mg 1 tab(s), Oral, qDayAC Continuous: (0) PRN: (16) acetaminophen 325 mg Tablet 650 mg 2 tab(s), Oral, q4h albuterol 0.083% Soln UD (2.5mg/3 mL) 2.5 mg 3 mL, Inhalation, q6h dextrose 50% Solution Disp syringe 50 mL 25 gram(s) 50 mL, IV Push, AsDirected docusate sodium 100 mg Capsule 100 mg 1 cap(s), Oral, BID magnesium sulfate 4 gram(s)/100mL PMX 4 g 100 mL, IV Piggyback, AsDirected magnesium sulfate 50% (500mg/mL) 6 g 12 mL, IV Piggyback, AsDirected magnesium sulfate PMX 2 g 50 mL, IV Piggyback, AsDirected melatonin 3 mg tablet 3 mg 1 tab(s), Oral, qHS menthol-zinc oxide topical ointment 4oz 1 ricardo, Topical, BID nitroglycerin 0.4 mg Tablet (25/btl) 0.4 mg 1 tab(s), Sublingual, q5min ondansetron 2 mg/ 1 mL 2 mL INJ 2 mg 1 mL, IV Push, q4h polyethylene glycol 3350 - UD packet 17 gram(s) 15 mL, Oral, qDay potassium chloride (PMX) 20 mEq/100 mL 20 mEq 100 mL, IV Piggyback, AsDirected potassium chloride 20 mEq ER tablet 20 mEq 1 tab(s), Oral, AsDirected potassium chloride 20 mEq ER tablet 40 mEq 2 tab(s), Oral, AsDirected potassium chloride 20 mEq ER tablet 40 mEq 2 tab(s), Oral, AsDirected Lab Results 04/16 05:37 WBC: 7.8 Hgb: 8.5 L Hct: 26.3 L Platelet: 240 Glucose Level: 96 Sodium Level: 134 L Potassium Level: 4.7 BUN: 42.0 H Creatinine Lvl (s): 5.05 H 04/15 09:36 WBC: 7.8 Hgb: 9.4 L Hct: 28.8 L Platelet: 242 Neutrophil %: 63.8 Glucose Level: 108 Sodium Level: 135 L Potassium Level: 4.4 BUN: 41.0 H Creatinine Lvl (s): 4.35 H EKG EKG - Discontinued -- 04/04/25 11:26:00 EDT, Post-procedure, Complete by Nursing EKG - Discontinued -- 04/06/25 12:42:00 EDT EKG - Discontinued -- 04/09/25 23:47:00 EDT Assessment/Plan 1. End-stage renal disease [facility] 2. ST segment elevation myocardial infarction 3. Hypotension 4. new cardiomoyopathy ef 20% 5. Hyponatremia [1] Labs reviewed. Plan for hemodialysis today. Try to challenge with back to her target weight. Anemia dose erythropoietin with dialysis. Disposition as per primary service. Follow labs. See orders. Orders: Dialysis Machine Bicarb Setting, 04/16/25 10:41:00 EDT, Total Bicarb Buffer 37 Dialysis Machine Sodium Setting, 04/16/25 10:41:00 EDT, Sodium Machine Setting 138 Dialysis Machine Temperature Setting, 04/16/25 10:41:00 EDT, Machine Temp Setting 36.5 Discontinue Order, 04/16/25 10:41:00 EDT, Once, Please discontinue all active orders when current dialysis treatment is complete, 04/16/25 10:41:00 EDT Standard Hemodialysis(Dialysis, Standard), 04/16/25 10:41:00 EDT, Dialyzer: F 160, Dialysate 2K+, Dialysate Rate (mL/min) 500, 3 hours, to DW 80.5kg liters removed, No, Blood Flow Rate (mL/min) 350 [1] Progress Note; CANDY ARRINGTON DO 04/14/2025 08:02 EDT Digitally Signed by RIGO PEREZ MD on 04/16/2025 10:58 AM [facility] 04-15-2025 Cardiology Progress note Date of Service 04/15/2025 17:30:23 Subjective Patient was examined at bedside today morning. No acute complaints overnight. She was comfortably resting on chair and was answering to questions. Objective Vitals and Measurements T: 36.6 C (Oral) TMIN: 36.4 C (Oral) TMAX: 36.8 C (Oral) HR: 76 (Monitored) RR: 16 BP: 92/52 SpO2: 97% WT: 86.1 kg Intake and Output 7AM Yesterday to 7AM Today Intake and Output (Last 24 hours) Intake Oral Intake 1200.00 Supplement Intake 570.00 Output Urine Voided 350.00 Urinary Catheter Output: 200.00 Stool Count 2.00 Urine Count 2.00 Total Summary Total Intake 1770.00 Total Output 550.00 Fluid Balance 1220.00 Physical Exam General: Alert, in no acute discomfort. Skin: intact, warm, and dry. no rashes or lesions on exposed skin. Head: normocephalic, atraumatic. Neck: supple, trachea midline. Normal ROM. Eyes: Extraocular movements are intact. Normal conjunctiva. Pupils equal and round b/l ENT: Oral mucous membranes moist. Posterior pharynx without erythema or exudate. Cardiovascular: regular rate and rhythm. no murmurs, rubs, gallops. Respiratory: Lungs are clear without any wheezes, rhonchi, rales Abdomen: Bowel sounds normal present. Abdomen soft, nontender. No guarding. No rebound. No masses or rigidity. Weight Dosing Weight: 86.1 kg (04/15/25) Dosing Weight: 81.1 kg (04/13/25) Medications Medications (32) Active Scheduled: (16) acetaminophen-HYDROcodone 325-5 mg tablet 1 tab(s), Oral, BID amiodarone 200 mg tablet 200 mg 1 tab(s), Oral, qDay aspirin 81 mg Chewable 81 mg 1 tab(s), Oral, Daily atorvastatin 40 mg tablet 40 mg 1 tab(s), Oral, qDay clopidogrel 75 mg Tablet 75 mg 1 tab(s), Oral, qDay empagliflozin 10 mg tablet 10 mg 1 tab(s), Oral, qAM levETIRAcetam 500 mg tablet 500 mg 1 tab(s), Oral, BID levothyroxine 50 mcg tablet 50 mcg 1 tab(s), Oral, qDay melatonin 5 mg tablet 30 mg 6 tab(s), Oral, qHS menthol-zinc oxide topical ointment 4oz 1 ricardo, Topical, amhs metoprolol succinate 25 mg ER tablet 12.5 mg 0.5 tab(s), Oral, qDay miconazole topical 2% Powder 1 ricardo, Topical, BID midodrine 5 mg tablet 10 mg 2 tab(s), Oral, Mon/Wed/Fri montelukast 10 mg Tablet 10 mg 1 tab(s), Oral, qPM nitroglycerin 2% Ointment UD Packet 0.5 inch(es), Topical, BID pantoprazole 40 mg EC tablet 40 mg 1 tab(s), Oral, qDayAC Continuous: (0) PRN: (16) acetaminophen 325 mg Tablet 650 mg 2 tab(s), Oral, q4h albuterol 0.083% Soln UD (2.5mg/3 mL) 2.5 mg 3 mL, Inhalation, q6h dextrose 50% Solution Disp syringe 50 mL 25 gram(s) 50 mL, IV Push, AsDirected docusate sodium 100 mg Capsule 100 mg 1 cap(s), Oral, BID magnesium sulfate 4 gram(s)/100mL PMX 4 g 100 mL, IV Piggyback, AsDirected magnesium sulfate 50% (500mg/mL) 6 g 12 mL, IV Piggyback, AsDirected magnesium sulfate PMX 2 g 50 mL, IV Piggyback, AsDirected melatonin 3 mg tablet 3 mg 1 tab(s), Oral, qHS menthol-zinc oxide topical ointment 4oz 1 ricardo, Topical, BID nitroglycerin 0.4 mg Tablet (25/btl) 0.4 mg 1 tab(s), Sublingual, q5min ondansetron 2 mg/ 1 mL 2 mL INJ 2 mg 1 mL, IV Push, q4h polyethylene glycol 3350 - UD packet 17 gram(s) 15 mL, Oral, qDay potassium chloride (PMX) 20 mEq/100 mL 20 mEq 100 mL, IV Piggyback, AsDirected potassium chloride 20 mEq ER tablet 20 mEq 1 tab(s), Oral, AsDirected potassium chloride 20 mEq ER tablet 40 mEq 2 tab(s), Oral, AsDirected potassium chloride 20 mEq ER tablet 40 mEq 2 tab(s), Oral, AsDirected Lab Results 04/15 09:36 WBC: 7.8 Hgb: 9.4 L Hct: 28.8 L Platelet: 242 Neutrophil %: 63.8 Glucose Level: 108 Sodium Level: 135 L Potassium Level: 4.4 BUN: 41.0 H Creatinine Lvl (s): 4.35 H Imaging Results and Diagnostics XR Chest 1 View Result Date: April 08, 2025 Verified By: ZE HACKETT DO CLINICAL STATEMENT: IMPRESSION: Mildly increased central venous congestion and bilateral interstitialprominence is concerning for worsening pulmonary edema. XR Chest 1 View Result Date: April 07, 2025 Verified By: RIGO METZ MD CLINICAL STATEMENT: IMPRESSION: Low lung volumes and increased basilar atelectasis/consolidation versus softtissue artifact XR Chest 1 View Result Date: April 06, 2025 Verified By: DOUGIE EVANS DO CLINICAL STATEMENT: IMPRESSION: Mild pulmonary edema pattern. CT Angio w/ + w/o Contrast/Dissection Result Date: April 05, 2025 Verified By: SHARMIN STEWARD MD CLINICAL STATEMENT: IMPRESSION: No evidence of acute thoracic aortic syndrome or other vascular abnormality. No acute chest findings. I have personally reviewed the images of this examination and agree with theresident's findings and interpretation. EKG No qualifying data available. Assessment/Plan Orders: atorvastatin, 40 mg= 1 tab(s), Oral, qDay Basic Metabolic Panel(BMP), 04/15/25 5:00:00 EDT, Next AM Draw (one day only), Blood, q24h, for 30 day(s), Preferred Lab: [facility], Stop date 05/14/25 5:00:00 EDT Complete Blood Count(CBC), 04/15/25 5:00:00 EDT, Next AM Draw (one day only), Blood, q24h, for 30 day(s), Preferred Lab: [facility], Stop date 05/14/25 5:00:00 EDT 75-year-old fist female with past medical history of CAD, ESRD presented to [facility] on 04/04 for complaints of chest pain. EKG revealed a STEMI. Patient is now status post PCI to the LAD. On , patient was receiving hemodialysis when she began experiencing chest pain and became hypotensive. ECG at that time revealed new onset A-fib RVR and spontaneously reverts back to sinus. Patient remained hypotensive and was subsequently put on Levophed to maintain hemodynamics. Plan Anterior STEMI status post LAD stent on 04/04/2025 (remote RCA and LCx stents) - ECG on 04/[address] elevations in V2, V3 suggestive of LAD infarction - s/p PCI to the LAD w/ stent placement - LFT improving, will initiate patient on Lipitor 40 mg. - Continue with DAPT with aspirin and Plavix x 1 year minimum. - PT/OT on board, planning discharge to inpatient rehab. Social work assistance appreciated. - 04/11- PT recommends inpatient therapy for patient to gain strength prior to discharge - Holding off statin for now as well, can consider resuming this on an outpatient basis. New onset atrial fibrillation with RVR, spontaneously converted to NSR -transient episode - 04/06- patient found A-fib RVR during hemodialysis - Continue oral amiodarone to 200 mg daily. Will keep this dose at discharge for maintenance. - As this was a transient episode that was short-lived during dialysis, will not commit the patient to long-term anticoagulation at this point. New onset cardiomyopathy, acute HFrEF in the setting of ACS (component of CS-AMI, now resolved) - echo 04/05 showed severely reduced systolic dysfunction with an estimated EF of 20 to 25%. There is additionally akinesis of the apical apical myocardium with systolic dysfunction present but unable to assess fully (prev 03/19/2022 EF 55-60%) - Started Jardiance for HF GDMT benefit. Continue as outpatient if nephrology is comfortable with this as well. ESRD on hemodialysis MWF - Patient continued to tolerate dialysis without pressor support. A-line removed. - Appreciate nephrology assistance with hemodialysis Cardiogenic shock-resolved Low-flow low gradient Hypertension Dyslipidemia Peripheral vascular disease Leukocytosis Patient was planned for discharged on 04/13 however due to transportation issues from her accepting facility to HD center, this is delayed. Pending SW assistance, patient probably, can be only discharged tomorrow. Digitally Signed by DOMINGO SANTIZO MD on 04/15/2025 05:32 PM [facility] 04-14-2025 Cardiology Progress note Date of Service 04/14/2025 21:21:23 Subjective Patient was examined at bedside today morning. No acute complaints overnight. Objective Vitals and Measurements T: 36.7 C (Oral) TMIN: 36.4 C (Axillary) TMAX: 37.0 C (Oral) HR: 76 (Monitored) RR: 16 BP: 92/54 SpO2: 97% Intake and Output 7AM Yesterday to 7AM Today Intake and Output (Last 24 hours) Intake Oral Intake 1320.00 Supplement Intake 120.00 Output Urine Voided 0.00 Urinary Catheter Output: 200.00 Stool Count 0.00 Total Summary Total Intake 1440.00 Total Output 200.00 Fluid Balance 1240.00 Physical Exam General: Alert, in no acute discomfort. Skin: intact, warm, and dry. no rashes or lesions on exposed skin. Head: normocephalic, atraumatic. Neck: supple, trachea midline. Normal ROM. Eyes: Extraocular movements are intact. Normal conjunctiva. Pupils equal and round b/l ENT: Oral mucous membranes moist. Posterior pharynx without erythema or exudate. Cardiovascular: regular rate and rhythm. no murmurs, rubs, gallops. Respiratory: Lungs are clear without any wheezes, rhonchi, rales Abdomen: Bowel sounds normal present. Abdomen soft, nontender. No guarding. No rebound. No masses or rigidity. Back: nontender. No CVA tenderness. Weight Dosing Weight: 81.1 kg (04/13/25) Dosing Weight: 83.5 kg (04/13/25) Medications Medications (31) Active Scheduled: (15) acetaminophen-HYDROcodone 325-5 mg tablet 1 tab(s), Oral, BID amiodarone 200 mg tablet 200 mg 1 tab(s), Oral, qDay aspirin 81 mg Chewable 81 mg 1 tab(s), Oral, Daily clopidogrel 75 mg Tablet 75 mg 1 tab(s), Oral, qDay empagliflozin 10 mg tablet 10 mg 1 tab(s), Oral, qAM levETIRAcetam 500 mg tablet 500 mg 1 tab(s), Oral, BID levothyroxine 50 mcg tablet 50 mcg 1 tab(s), Oral, qDay melatonin 5 mg tablet 30 mg 6 tab(s), Oral, qHS menthol-zinc oxide topical ointment 4oz 1 ricardo, Topical, amhs metoprolol succinate 25 mg ER tablet 12.5 mg 0.5 tab(s), Oral, qDay miconazole topical 2% Powder 1 ricardo, Topical, BID midodrine 5 mg tablet 10 mg 2 tab(s), Oral, Mon/Wed/Fri montelukast 10 mg Tablet 10 mg 1 tab(s), Oral, qPM nitroglycerin 2% Ointment UD Packet 0.5 inch(es), Topical, BID pantoprazole 40 mg EC tablet 40 mg 1 tab(s), Oral, qDayAC Continuous: (0) PRN: (16) acetaminophen 325 mg Tablet 650 mg 2 tab(s), Oral, q4h albuterol 0.083% Soln UD (2.5mg/3 mL) 2.5 mg 3 mL, Inhalation, q6h dextrose 50% Solution Disp syringe 50 mL 25 gram(s) 50 mL, IV Push, AsDirected docusate sodium 100 mg Capsule 100 mg 1 cap(s), Oral, BID magnesium sulfate 4 gram(s)/100mL PMX 4 g 100 mL, IV Piggyback, AsDirected magnesium sulfate 50% (500mg/mL) 6 g 12 mL, IV Piggyback, AsDirected magnesium sulfate PMX 2 g 50 mL, IV Piggyback, AsDirected melatonin 3 mg tablet 3 mg 1 tab(s), Oral, qHS menthol-zinc oxide topical ointment 4oz 1 ricardo, Topical, BID nitroglycerin 0.4 mg Tablet (25/btl) 0.4 mg 1 tab(s), Sublingual, q5min ondansetron 2 mg/ 1 mL 2 mL INJ 2 mg 1 mL, IV Push, q4h polyethylene glycol 3350 - UD packet 17 gram(s) 15 mL, Oral, qDay potassium chloride (PMX) 20 mEq/100 mL 20 mEq 100 mL, IV Piggyback, AsDirected potassium chloride 20 mEq ER tablet 20 mEq 1 tab(s), Oral, AsDirected potassium chloride 20 mEq ER tablet 40 mEq 2 tab(s), Oral, AsDirected potassium chloride 20 mEq ER tablet 40 mEq 2 tab(s), Oral, AsDirected Lab Results No 36 Hour Lab Data Imaging Results and Diagnostics XR Chest 1 View Result Date: April 08, 2025 Verified By: ZE HACKETT DO CLINICAL STATEMENT: IMPRESSION: Mildly increased central venous congestion and bilateral interstitialprominence is concerning for worsening pulmonary edema. XR Chest 1 View Result Date: April 07, 2025 Verified By: RIGO METZ MD CLINICAL STATEMENT: IMPRESSION: Low lung volumes and increased basilar atelectasis/consolidation versus softtissue artifact XR Chest 1 View Result Date: April 06, 2025 Verified By: DOUGIE EVANS DO CLINICAL STATEMENT: IMPRESSION: Mild pulmonary edema pattern. CT Angio w/ + w/o Contrast/Dissection Result Date: April 05, 2025 Verified By: SHARMIN STEWARD MD CLINICAL STATEMENT: IMPRESSION: No evidence of acute thoracic aortic syndrome or other vascular abnormality. No acute chest findings. I have personally reviewed the images of this examination and agree with theresident's findings and interpretation. EKG No qualifying data available. Assessment/Plan 75-year-old fist female with past medical history of CAD, ESRD presented to [facility] on 04/04 for complaints of chest pain. EKG revealed a STEMI. Patient is now status post PCI to the LAD. On , patient was receiving hemodialysis when she began experiencing chest pain and became hypotensive. ECG at that time revealed new onset A-fib RVR and spontaneously reverts back to sinus. Patient remained hypotensive and was subsequently put on Levophed to maintain hemodynamics. Plan Anterior STEMI status post LAD stent on 04/04/2025 (remote RCA and LCx stents) - ECG on 04/[address] elevations in V2, V3 suggestive of LAD infarction - s/p PCI to the LAD w/ stent placement - LFT improving, will initiate patient on Lipitor 40 mg. - Continue with DAPT with aspirin and Plavix x 1 year minimum. - PT/OT on board, planning discharge to inpatient rehab. Social work assistance appreciated. - 04/11- PT recommends inpatient therapy for patient to gain strength prior to discharge - Holding off statin for now as well, can consider resuming this on an outpatient basis. New onset atrial fibrillation with RVR, spontaneously converted to NSR -transient episode - 04/06- patient found A-fib RVR during hemodialysis - Continue oral amiodarone to 200 mg daily. Will keep this dose at discharge for maintenance. - As this was a transient episode that was short-lived during dialysis, will not commit the patient to long-term anticoagulation at this point. New onset cardiomyopathy, acute HFrEF in the setting of ACS (component of CS-AMI, now resolved) - echo 04/05 showed severely reduced systolic dysfunction with an estimated EF of 20 to 25%. There is additionally akinesis of the apical apical myocardium with systolic dysfunction present but unable to assess fully (prev 03/19/2022 EF 55-60%) - Started Jardiance for HF GDMT benefit. Continue as outpatient if nephrology is comfortable with this as well. ESRD on hemodialysis MWF - Patient continued to tolerate dialysis without pressor support. A-line removed. - Appreciate nephrology assistance with hemodialysis Cardiogenic shock-resolved Low-flow low gradient Hypertension Dyslipidemia Peripheral vascular disease Leukocytosis Patient was planned for discharged on 04/13 however due to transportation issues from her accepting facility to HD center, this is delayed. Pending SW assistance, patient probably, can be only discharged on Wednesday. Digitally Signed by DOMINGO SANTIZO MD on 04/14/2025 09:25 PM [facility] 04-14-2025 Cardiology Progress note Date of Service 04/13/2025 Subjective No acute complaints this morning. Objective Vitals and Measurements T: 37.0 C (Oral) TMIN: 35.6 C (Skin) TMAX: 37.0 C (Oral) HR: 79 (Monitored) RR: 16 BP: 98/48 SpO2: 98% WT: 81.1 kg Intake and Output 7AM Yesterday to 7AM Today Intake and Output (Last 24 hours) Intake Oral Intake 190.00 Supplement Intake 480.00 Output Urinary Catheter Output: 50.00 Hemodialysis 1500.00 Stool Count 0.00 Total Summary Total Intake 670.00 Total Output 1550.00 Fluid Balance -880.00 Physical Exam General: Alert, in no acute discomfort. Skin: intact, warm, and dry. no rashes or lesions on exposed skin. Head: normocephalic, atraumatic. Neck: supple, trachea midline. Normal ROM. Eyes: Extraocular movements are intact. Normal conjunctiva. Pupils equal and round b/l ENT: Oral mucous membranes moist. Posterior pharynx without erythema or exudate. Cardiovascular: regular rate and rhythm. no murmurs, rubs, gallops. Respiratory: Lungs are clear without any wheezes, rhonchi, rales Abdomen: Bowel sounds normal present. Abdomen soft, nontender. No guarding. No rebound. No masses or rigidity. Back: nontender. No CVA tenderness. Musculoskeletal: Moves all extremities equally. No edema or bony deformity. Neurologic: Awake alert and oriented. No focal neurologic deficits. normal speech. Sensation grossly intact. Psychiatric: Cooperative. Appropriate mood and affect. Weight Dosing Weight: 81.1 kg (04/13/25) Dosing Weight: 83.5 kg (04/13/25) Medications Medications (31) Active Scheduled: (15) acetaminophen-HYDROcodone 325-5 mg tablet 1 tab(s), Oral, BID amiodarone 200 mg tablet 200 mg 1 tab(s), Oral, qDay aspirin 81 mg Chewable 81 mg 1 tab(s), Oral, Daily clopidogrel 75 mg Tablet 75 mg 1 tab(s), Oral, qDay empagliflozin 10 mg tablet 10 mg 1 tab(s), Oral, qAM levETIRAcetam 500 mg tablet 500 mg 1 tab(s), Oral, BID levothyroxine 50 mcg tablet 50 mcg 1 tab(s), Oral, qDay melatonin 5 mg tablet 30 mg 6 tab(s), Oral, qHS menthol-zinc oxide topical ointment 4oz 1 ricardo, Topical, amhs metoprolol succinate 25 mg ER tablet 12.5 mg 0.5 tab(s), Oral, qDay miconazole topical 2% Powder 1 ricardo, Topical, BID midodrine 5 mg tablet 10 mg 2 tab(s), Oral, Mon/Wed/Fri montelukast 10 mg Tablet 10 mg 1 tab(s), Oral, qPM nitroglycerin 2% Ointment UD Packet 0.5 inch(es), Topical, BID pantoprazole 40 mg EC tablet 40 mg 1 tab(s), Oral, qDayAC Continuous: (0) PRN: (16) acetaminophen 325 mg Tablet 650 mg 2 tab(s), Oral, q4h albuterol 0.083% Soln UD (2.5mg/3 mL) 2.5 mg 3 mL, Inhalation, q6h dextrose 50% Solution Disp syringe 50 mL 25 gram(s) 50 mL, IV Push, AsDirected docusate sodium 100 mg Capsule 100 mg 1 cap(s), Oral, BID magnesium sulfate 4 gram(s)/100mL PMX 4 g 100 mL, IV Piggyback, AsDirected magnesium sulfate 50% (500mg/mL) 6 g 12 mL, IV Piggyback, AsDirected magnesium sulfate PMX 2 g 50 mL, IV Piggyback, AsDirected melatonin 3 mg tablet 3 mg 1 tab(s), Oral, qHS menthol-zinc oxide topical ointment 4oz 1 ricardo, Topical, BID nitroglycerin 0.4 mg Tablet (25/btl) 0.4 mg 1 tab(s), Sublingual, q5min ondansetron 2 mg/ 1 mL 2 mL INJ 2 mg 1 mL, IV Push, q4h polyethylene glycol 3350 - UD packet 17 gram(s) 15 mL, Oral, qDay potassium chloride (PMX) 20 mEq/100 mL 20 mEq 100 mL, IV Piggyback, AsDirected potassium chloride 20 mEq ER tablet 20 mEq 1 tab(s), Oral, AsDirected potassium chloride 20 mEq ER tablet 40 mEq 2 tab(s), Oral, AsDirected potassium chloride 20 mEq ER tablet 40 mEq 2 tab(s), Oral, AsDirected Lab Results 04/13 08:20 WBC: 8.6 Hgb: 8.7 L Hct: 26.2 L Platelet: 237 Glucose Level: 106 Sodium Level: 134 L Potassium Level: 3.9 BUN: 48.0 H Creatinine Lvl (s): 4.81 H 04/12 14:50 Glucose Level: 137 H Sodium Level: 135 L Potassium Level: 4.2 BUN: 43.0 H Creatinine Lvl (s): 4.09 H EKG No qualifying data available. Assessment/Plan Orders: empagliflozin(Jardiance), 10 mg= 1 tab(s), Oral, qAM Discharge Activity, Resume your pre-hospitalization activity, 04/13/25 15:11:00 EDT Discharge Diet, No changes were made to your diet during your hospital stay. Please resume your pre hospitalization diet on discharge., 04/13/25 15:11:00 EDT 75-year-old fist female with past medical history of CAD, ESRD presented to [facility] on 04/04 for complaints of chest pain. EKG revealed a STEMI. Patient is now status post PCI to the LAD. On , patient was receiving hemodialysis when she began experiencing chest pain and became hypotensive. ECG at that time revealed new onset A-fib RVR and spontaneously reverts back to sinus. Patient remained hypotensive and was subsequently put on Levophed to maintain hemodynamics. Plan Anterior STEMI status post LAD stent on 04/04/2025 (remote RCA and LCx stents) - ECG on 04/[address] elevations in V2, V3 suggestive of LAD infarction - s/p PCI to the LAD w/ stent placement - Continue holding statin for transaminitis, however is improving. - Continue with DAPT with aspirin and Plavix x 1 year minimum. - PT/OT on board, planning discharge to inpatient rehab. Social work assistance appreciated. - 04/11- PT recommends inpatient therapy for patient to gain strength prior to discharge - Holding off statin for now as well, can consider resuming this on an outpatient basis. New onset atrial fibrillation with RVR, spontaneously converted to NSR -transient episode - 04/06- patient found A-fib RVR during hemodialysis - Continue oral amiodarone to 200 mg daily. Will keep this dose at discharge for maintenance. - As this was a transient episode that was short-lived during dialysis, will not commit the patient to long-term anticoagulation at this point. Will order a 30-day event monitor to record any AF burden to review on outpatient basis. If significant, can consider therapeutic anticoagulation for cardioembolic stroke prophylaxis at the time of follow-up. New onset cardiomyopathy, acute HFrEF in the setting of ACS (component of CS-AMI, now resolved) - echo 04/05 showed severely reduced systolic dysfunction with an estimated EF of 20 to 25%. There is additionally akinesis of the apical apical myocardium with systolic dysfunction present but unable to assess fully (prev 03/19/2022 EF 55-60%) - Started Jardiance for HF GDMT benefit. Continue as outpatient if nephrology is comfortable with this as well. ESRD on hemodialysis MWF - Patient continued to tolerate dialysis without pressor support. A-line removed. - Appreciate nephrology assistance with hemodialysis Cardiogenic shock-resolved Low-flow low gradient Hypertension Dyslipidemia Peripheral vascular disease Leukocytosis Patient was planned for discharged 04/13 however due to transportation issues from her accepting facility to HD center, this is delayed. Pending SW assistance with this set up prior to discharge. Digitally Signed by JOSE MIGUEL LYNN DO on 04/14/2025 02:27 AM [facility] 04-14-2025 Nephrology Progress note Date of Service April 14, 2025 Subjective No complaints reported Objective Vitals and Measurements T: 36.6 C (Oral) TMIN: 35.6 C (Skin) TMAX: 37.0 C (Oral) HR: 75 (Monitored) RR: 16 BP: 92/52 SpO2: 99% WT: 81.1 kg Intake and Output 7AM Yesterday to 7AM Today Intake and Output (Last 24 hours) Intake Oral Intake 170.00 Supplement Intake 480.00 Output Urinary Catheter Output: 0.00 Hemodialysis 1500.00 Stool Count 0.00 Total Summary Total Intake 650.00 Total Output 1500.00 Fluid Balance -850.00 Physical Exam Weight Dosing Weight: 81.1 kg (04/13/25) Dosing Weight: 83.5 kg (04/13/25) Gen: Comfortable alert Neck: no JVP CV: HRRR , S1, S2 no rub Resp:CTAB, no wheezing or crackles ABD: Bowel sounds soft no rebound rigidity or guarding Ext: no cyanosis,clubbing , or edema Medications Medications (31) Active Scheduled: (15) acetaminophen-HYDROcodone 325-5 mg tablet 1 tab(s), Oral, BID amiodarone 200 mg tablet 200 mg 1 tab(s), Oral, qDay aspirin 81 mg Chewable 81 mg 1 tab(s), Oral, Daily clopidogrel 75 mg Tablet 75 mg 1 tab(s), Oral, qDay empagliflozin 10 mg tablet 10 mg 1 tab(s), Oral, qAM levETIRAcetam 500 mg tablet 500 mg 1 tab(s), Oral, BID levothyroxine 50 mcg tablet 50 mcg 1 tab(s), Oral, qDay melatonin 5 mg tablet 30 mg 6 tab(s), Oral, qHS menthol-zinc oxide topical ointment 4oz 1 ricardo, Topical, amhs metoprolol succinate 25 mg ER tablet 12.5 mg 0.5 tab(s), Oral, qDay miconazole topical 2% Powder 1 ricardo, Topical, BID midodrine 5 mg tablet 10 mg 2 tab(s), Oral, Mon/Wed/Fri montelukast 10 mg Tablet 10 mg 1 tab(s), Oral, qPM nitroglycerin 2% Ointment UD Packet 0.5 inch(es), Topical, BID pantoprazole 40 mg EC tablet 40 mg 1 tab(s), Oral, qDayAC Continuous: (0) PRN: (16) acetaminophen 325 mg Tablet 650 mg 2 tab(s), Oral, q4h albuterol 0.083% Soln UD (2.5mg/3 mL) 2.5 mg 3 mL, Inhalation, q6h dextrose 50% Solution Disp syringe 50 mL 25 gram(s) 50 mL, IV Push, AsDirected docusate sodium 100 mg Capsule 100 mg 1 cap(s), Oral, BID magnesium sulfate 4 gram(s)/100mL PMX 4 g 100 mL, IV Piggyback, AsDirected magnesium sulfate 50% (500mg/mL) 6 g 12 mL, IV Piggyback, AsDirected magnesium sulfate PMX 2 g 50 mL, IV Piggyback, AsDirected melatonin 3 mg tablet 3 mg 1 tab(s), Oral, qHS menthol-zinc oxide topical ointment 4oz 1 ricardo, Topical, BID nitroglycerin 0.4 mg Tablet (25/btl) 0.4 mg 1 tab(s), Sublingual, q5min ondansetron 2 mg/ 1 mL 2 mL INJ 2 mg 1 mL, IV Push, q4h polyethylene glycol 3350 - UD packet 17 gram(s) 15 mL, Oral, qDay potassium chloride (PMX) 20 mEq/100 mL 20 mEq 100 mL, IV Piggyback, AsDirected potassium chloride 20 mEq ER tablet 20 mEq 1 tab(s), Oral, AsDirected potassium chloride 20 mEq ER tablet 40 mEq 2 tab(s), Oral, AsDirected potassium chloride 20 mEq ER tablet 40 mEq 2 tab(s), Oral, AsDirected Lab Results 04/13 08:20 WBC: 8.6 Hgb: 8.7 L Hct: 26.2 L Platelet: 237 Glucose Level: 106 Sodium Level: 134 L Potassium Level: 3.9 BUN: 48.0 H Creatinine Lvl (s): 4.81 H EKG No qualifying data available. Assessment/Plan 1. End-stage renal disease [facility] 2. ST segment elevation myocardial infarction 3. Hypotension 4. new cardiomoyopathy ef 20% 5. Hyponatremia Will plan for dialysis on Wednesday Continue with midodrine Please Avoid AV access arm. The patient should not receive Demerol or gadolinium unless emergently needed. The patient should continue on their normal dialysis schedule. This document was transcribed via voice recognition software and may contain typographical errors. Digitally Signed by CANDY ARRINGTON DO on 04/14/2025 11:32 AM [facility] 04-14-2025 Cardiology Progress note Date of Service 04/13/2025 Subjective No acute complaints this morning. Objective Vitals and Measurements T: 37.0 C (Oral) TMIN: 35.6 C (Skin) TMAX: 37.0 C (Oral) HR: 79 (Monitored) RR: 16 BP: 98/48 SpO2: 98% WT: 81.1 kg Intake and Output 7AM Yesterday to 7AM Today Intake and Output (Last 24 hours) Intake Oral Intake 190.00 Supplement Intake 480.00 Output Urinary Catheter Output: 50.00 Hemodialysis 1500.00 Stool Count 0.00 Total Summary Total Intake 670.00 Total Output 1550.00 Fluid Balance -880.00 Physical Exam General: Alert, in no acute discomfort. Skin: intact, warm, and dry. no rashes or lesions on exposed skin. Head: normocephalic, atraumatic. Neck: supple, trachea midline. Normal ROM. Eyes: Extraocular movements are intact. Normal conjunctiva. Pupils equal and round b/l ENT: Oral mucous membranes moist. Posterior pharynx without erythema or exudate. Cardiovascular: regular rate and rhythm. no murmurs, rubs, gallops. Respiratory: Lungs are clear without any wheezes, rhonchi, rales Abdomen: Bowel sounds normal present. Abdomen soft, nontender. No guarding. No rebound. No masses or rigidity. Back: nontender. No CVA tenderness. Musculoskeletal: Moves all extremities equally. No edema or bony deformity. Neurologic: Awake alert and oriented. No focal neurologic deficits. normal speech. Sensation grossly intact. Psychiatric: Cooperative. Appropriate mood and affect. Weight Dosing Weight: 81.1 kg (04/13/25) Dosing Weight: 83.5 kg (04/13/25) Medications Medications (31) Active Scheduled: (15) acetaminophen-HYDROcodone 325-5 mg tablet 1 tab(s), Oral, BID amiodarone 200 mg tablet 200 mg 1 tab(s), Oral, qDay aspirin 81 mg Chewable 81 mg 1 tab(s), Oral, Daily clopidogrel 75 mg Tablet 75 mg 1 tab(s), Oral, qDay empagliflozin 10 mg tablet 10 mg 1 tab(s), Oral, qAM levETIRAcetam 500 mg tablet 500 mg 1 tab(s), Oral, BID levothyroxine 50 mcg tablet 50 mcg 1 tab(s), Oral, qDay melatonin 5 mg tablet 30 mg 6 tab(s), Oral, qHS menthol-zinc oxide topical ointment 4oz 1 ricardo, Topical, amhs metoprolol succinate 25 mg ER tablet 12.5 mg 0.5 tab(s), Oral, qDay miconazole topical 2% Powder 1 ricardo, Topical, BID midodrine 5 mg tablet 10 mg 2 tab(s), Oral, Mon/Wed/Fri montelukast 10 mg Tablet 10 mg 1 tab(s), Oral, qPM nitroglycerin 2% Ointment UD Packet 0.5 inch(es), Topical, BID pantoprazole 40 mg EC tablet 40 mg 1 tab(s), Oral, qDayAC Continuous: (0) PRN: (16) acetaminophen 325 mg Tablet 650 mg 2 tab(s), Oral, q4h albuterol 0.083% Soln UD (2.5mg/3 mL) 2.5 mg 3 mL, Inhalation, q6h dextrose 50% Solution Disp syringe 50 mL 25 gram(s) 50 mL, IV Push, AsDirected docusate sodium 100 mg Capsule 100 mg 1 cap(s), Oral, BID magnesium sulfate 4 gram(s)/100mL PMX 4 g 100 mL, IV Piggyback, AsDirected magnesium sulfate 50% (500mg/mL) 6 g 12 mL, IV Piggyback, AsDirected magnesium sulfate PMX 2 g 50 mL, IV Piggyback, AsDirected melatonin 3 mg tablet 3 mg 1 tab(s), Oral, qHS menthol-zinc oxide topical ointment 4oz 1 ricardo, Topical, BID nitroglycerin 0.4 mg Tablet (25/btl) 0.4 mg 1 tab(s), Sublingual, q5min ondansetron 2 mg/ 1 mL 2 mL INJ 2 mg 1 mL, IV Push, q4h polyethylene glycol 3350 - UD packet 17 gram(s) 15 mL, Oral, qDay potassium chloride (PMX) 20 mEq/100 mL 20 mEq 100 mL, IV Piggyback, AsDirected potassium chloride 20 mEq ER tablet 20 mEq 1 tab(s), Oral, AsDirected potassium chloride 20 mEq ER tablet 40 mEq 2 tab(s), Oral, AsDirected potassium chloride 20 mEq ER tablet 40 mEq 2 tab(s), Oral, AsDirected Lab Results 04/13 08:20 WBC: 8.6 Hgb: 8.7 L Hct: 26.2 L Platelet: 237 Glucose Level: 106 Sodium Level: 134 L Potassium Level: 3.9 BUN: 48.0 H Creatinine Lvl (s): 4.81 H 04/12 14:50 Glucose Level: 137 H Sodium Level: 135 L Potassium Level: 4.2 BUN: 43.0 H Creatinine Lvl (s): 4.09 H EKG No qualifying data available. Assessment/Plan Orders: empagliflozin(Jardiance), 10 mg= 1 tab(s), Oral, qAM Discharge Activity, Resume your pre-hospitalization activity, 04/13/25 15:11:00 EDT Discharge Diet, No changes were made to your diet during your hospital stay. Please resume your pre hospitalization diet on discharge., 04/13/25 15:11:00 EDT 75-year-old fist female with past medical history of CAD, ESRD presented to [facility] on 04/04 for complaints of chest pain. EKG revealed a STEMI. Patient is now status post PCI to the LAD. On , patient was receiving hemodialysis when she began experiencing chest pain and became hypotensive. ECG at that time revealed new onset A-fib RVR and spontaneously reverts back to sinus. Patient remained hypotensive and was subsequently put on Levophed to maintain hemodynamics. Plan Anterior STEMI status post LAD stent on 04/04/2025 (remote RCA and LCx stents) - ECG on 04/[address] elevations in V2, V3 suggestive of LAD infarction - s/p PCI to the LAD w/ stent placement - Continue holding statin for transaminitis, however is improving. - Continue with DAPT with aspirin and Plavix x 1 year minimum. - PT/OT on board, planning discharge to inpatient rehab. Social work assistance appreciated. - 04/11- PT recommends inpatient therapy for patient to gain strength prior to discharge - Holding off statin for now as well, can consider resuming this on an outpatient basis. New onset atrial fibrillation with RVR, spontaneously converted to NSR -transient episode - 04/06- patient found A-fib RVR during hemodialysis - Continue oral amiodarone to 200 mg daily. Will keep this dose at discharge for maintenance. - As this was a transient episode that was short-lived during dialysis, will not commit the patient to long-term anticoagulation at this point. Will order a 30-day event monitor to record any AF burden to review on outpatient basis. If significant, can consider therapeutic anticoagulation for cardioembolic stroke prophylaxis at the time of follow-up. New onset cardiomyopathy, acute HFrEF in the setting of ACS (component of CS-AMI, now resolved) - echo 04/05 showed severely reduced systolic dysfunction with an estimated EF of 20 to 25%. There is additionally akinesis of the apical apical myocardium with systolic dysfunction present but unable to assess fully (prev 03/19/2022 EF 55-60%) - Started Jardiance for HF GDMT benefit. Continue as outpatient if nephrology is comfortable with this as well. ESRD on hemodialysis MWF - Patient continued to tolerate dialysis without pressor support. A-line removed. - Appreciate nephrology assistance with hemodialysis Cardiogenic shock-resolved Low-flow low gradient Hypertension Dyslipidemia Peripheral vascular disease Leukocytosis Patient was planned for discharged 04/13 however due to transportation issues from her accepting facility to HD center, this is delayed. Pending SW assistance with this set up prior to discharge. Digitally Signed by JOSE MIGUEL LYNN DO on 04/14/2025 02:27 AM [facility] 04-13-2025 Nephrology Progress note Subjective resting Objective Vitals and Measurements T: 36.7 C (Oral) TMIN: 36.7 C (Oral) TMAX: 36.9 C (Oral) HR: 72 (Monitored) RR: 16 BP: 108/60 SpO2: 98% Intake and Output 7AM Yesterday to 7AM Today Intake and Output (Last 24 hours) Intake Oral Intake 740.00 Supplement Intake 240.00 Output Urine Voided 0.00 Urinary Catheter Output: 50.00 Stool Count 1.00 Total Summary Total Intake 980.00 Total Output 50.00 Fluid Balance 930.00 Physical Exam General: Resting/Somnolent HEENT: Icterus-; Pallor + Neck: No swelling. JVD normal. Chest: Chest equal in expansion, and clear to auscultation bilaterally. Heart: s1s2 heard. regular. No murmur/rub appreciated. Abdomen: Soft. Nondistended. Nontender. Bowel sounds heard. Neuro: asterexis-; deferred Skin: rash-; ecchymosis - Musculoskeletal: joint effusion -; cyanosis-; lower extremitity edema: trace Genitourinary/rectal: FMS: - lopez:- Breast: deferred Weight Dosing Weight: 82.5 kg (04/11/25) Dosing Weight: 85.1 kg (04/11/25) Medications Medications (30) Active Scheduled: (14) acetaminophen-HYDROcodone 325-5 mg tablet 1 tab(s), Oral, BID amiodarone 200 mg tablet 200 mg 1 tab(s), Oral, qDay aspirin 81 mg Chewable 81 mg 1 tab(s), Oral, Daily clopidogrel 75 mg Tablet 75 mg 1 tab(s), Oral, qDay levETIRAcetam 500 mg tablet 500 mg 1 tab(s), Oral, BID levothyroxine 50 mcg tablet 50 mcg 1 tab(s), Oral, qDay melatonin 5 mg tablet 30 mg 6 tab(s), Oral, qHS menthol-zinc oxide topical ointment 4oz 1 ricardo, Topical, amhs metoprolol succinate 25 mg ER tablet 12.5 mg 0.5 tab(s), Oral, qDay miconazole topical 2% Powder 1 ricardo, Topical, BID midodrine 5 mg tablet 10 mg 2 tab(s), Oral, Mon/Wed/Fri montelukast 10 mg Tablet 10 mg 1 tab(s), Oral, qPM nitroglycerin 2% Ointment UD Packet 0.5 inch(es), Topical, BID pantoprazole 40 mg EC tablet 40 mg 1 tab(s), Oral, qDayAC Continuous: (0) PRN: (16) acetaminophen 325 mg Tablet 650 mg 2 tab(s), Oral, q4h albuterol 0.083% Soln UD (2.5mg/3 mL) 2.5 mg 3 mL, Inhalation, q6h dextrose 50% Solution Disp syringe 50 mL 25 gram(s) 50 mL, IV Push, AsDirected docusate sodium 100 mg Capsule 100 mg 1 cap(s), Oral, BID magnesium sulfate 4 gram(s)/100mL PMX 4 g 100 mL, IV Piggyback, AsDirected magnesium sulfate 50% (500mg/mL) 6 g 12 mL, IV Piggyback, AsDirected magnesium sulfate PMX 2 g 50 mL, IV Piggyback, AsDirected melatonin 3 mg tablet 3 mg 1 tab(s), Oral, qHS menthol-zinc oxide topical ointment 4oz 1 ricardo, Topical, BID nitroglycerin 0.4 mg Tablet (25/btl) 0.4 mg 1 tab(s), Sublingual, q5min ondansetron 2 mg/ 1 mL 2 mL INJ 2 mg 1 mL, IV Push, q4h polyethylene glycol 3350 - UD packet 17 gram(s) 15 mL, Oral, qDay potassium chloride (PMX) 20 mEq/100 mL 20 mEq 100 mL, IV Piggyback, AsDirected potassium chloride 20 mEq ER tablet 20 mEq 1 tab(s), Oral, AsDirected potassium chloride 20 mEq ER tablet 40 mEq 2 tab(s), Oral, AsDirected potassium chloride 20 mEq ER tablet 40 mEq 2 tab(s), Oral, AsDirected Lab Results 04/12 14:50 Glucose Level: 137 H Sodium Level: 135 L Potassium Level: 4.2 BUN: 43.0 H Creatinine Lvl (s): 4.09 H EKG No qualifying data available. Time Spent 1. End-stage renal disease mwf 2. ST segment elevation myocardial infarction 3. Hypotension 4. new cardiomoyopathy ef 20% plan Will plan for dialysis today. Tenuous hemodynamics will limit degree of ultrafiltration. Will give EPO on dialysis as well. Will use albumin support as needed. Is on midodrine currently for systolic augmentation. Digitally Signed by PITER MADISON MD on 04/13/2025 09:04 AM [facility] 04-12-2025 Note . MICRO - Microbiology PROCEDURE: Blood Culture (bacterial) [*1] SOURCE: Blood BODY SITE: COLLECTED DATE/TIME: 04/07/2025 13:22 EDT RECEIVED DATE/TIME: 04/07/2025 13:44 EDT START DATE/TIME: 04/07/2025 13:44 EDT FREE TEXT SOURCE: FINAL REPORTS Final Report [] Verified Date/Time/Personnel: 04/12/2025 13:59 EDT Blood Culture: No Growth at 5 days. PRELIMINARY REPORTS Preliminary Report [] Verified Date/Time/Personnel: 04/07/2025 14:59 EDT Culture has been received in lab and is no growth to date. Routine cultures are held for 5 days. Performing Locations *1: This test was performed at: [facility], [address] [place] [address], [id number] , [facility] 04-11-2025 Note Date of Service 04/11/25 Reason for Consultation Admission From: Home Consult to Skin Team Nurse - Ordered -- 04/11/25 1:47:00 EDT, Impaired skin integrity, bilat groin, near HC site FOLLOW UP Skin Team Findings Vitals and Measurements T: 36.3 C (Skin) TMIN: 36.3 C (Skin) TMAX: 37.4 C (Oral) HR: 65 RR: 18 BP: 119/61 SpO2: 100% WT: 85.1 kg Pressure Area Details ------Pressure Area------ Achilles Left, Distal - Pressure Area Cleansing: Sterile saline Achilles Left, Distal - Pressure Area Description: Maroon Achilles Left, Distal - Pressure Area Drainage: None Achilles Left, Distal - Pressure Area Dressing Description: Changed Achilles Left, Distal - Pressure Area Dressing Type: ABD dressing, Gauze bandage roll Achilles Left, Distal - Pressure Area Due to Licensed Electrician: Unique wrap removed Achilles Left, Distal - Pressure Area Length: 0.2 cm Achilles Left, Distal - Pressure Area Surrounding Tissue: Normal skin tone Achilles Left, Distal - Pressure Area Topical Agent: Skin Prep Achilles Left, Distal - Pressure Area Width: 0.7 cm Achilles Left, Distal - Pressure Ulcer Present On Admission: Yes Achilles Left, Distal - Pressure Ulcer Stage: Deep tissue injury Achilles Left, Distal - Status: Unchanged ------Pressure Area Measurements------ Achilles Left, Distal - Pressure Area Length: 0.2 cm Achilles Left, Distal - Pressure Area Width: 0.7 cm ------Incision/Wound------ Buttock Bilateral - Incision, Wound Surrounding Tissue: Dry, Moist, Pigmentation increased Buttock Bilateral - Skin Abnormality Color: Red Buttock Bilateral - Skin Abnormality Type: Dermatitis Buttock Bilateral - Wound Bed Description: Other: skin intact Foot Left - Incision, Wound Cleansing: Sterile saline Foot Left - Incision, Wound Dressing Assessment: Clean, Dry, Intact Foot Left - Incision, Wound Dressing/Activity: Changed Foot Left - Incision, Wound Dressing: ABD dressing pad, Gauze bandage roll, Petroleum gauze Foot Left - Incision, Wound Surrounding Tissue: Normal skin tone Foot Left - Non-Pressure Ulcer Type: Undiagnosed ulcer Foot Left - Skin Abnormality Color: [place] Foot Left - Skin Abnormality Pattern: Other: 2 Foot Left - Skin Abnormality Type: Non-pressure ulcer Foot Left - Wound Bed Description: Epithelialization Foot Left - Wound Exudate Amount: None Foot Left - Wound Percent Epithelialized: 100 % Foot Left - Wound Status: Healed Forearm Left - Incision, Wound Cleansing: Sterile saline Forearm Left - Incision, Wound Dressing Assessment: Clean, Dry, Intact Forearm Left - Incision, Wound Dressing/Activity: Changed Forearm Left - Incision, Wound Dressing: Gauze bandage roll, Gauze dressing, Petroleum gauze Forearm Left - Incision, Wound Surrounding Tissue: Fragile, Pigmentation increased Forearm Left - Skin Abnormality Color: Red Forearm Left - Skin Abnormality Pattern: Flat Forearm Left - Skin Abnormality Type: Tear Forearm Left - Wound Associated Pain: None Forearm Left - Wound Bed Description: Dermal Forearm Left - Wound Exudate Amount: Small Forearm Left - Wound Exudate Odor: None Forearm Left - Wound Exudate Type: Serosanguineous Forearm Left - Wound Status: No complications Groin Left - Incision, Wound Cleansing: Soap and water Groin Left - Incision, Wound Dressing/Activity: Removed Groin Left - Incision, Wound Surrounding Tissue: Erythema, Moist, Rash Groin Left - Incision, Wound Topical Agent: Antifungal Powder Groin Left - Skin Abnormality Pattern: Flat Groin Left - Skin Abnormality Type: Erosions Groin Left - Wound Associated Pain: With Cleansing Groin Left - Wound Bed Description: Granulation, Necrotic tissue, slough Groin Left - Wound Percent Granulated: 90 % Groin Left - Wound Percent Necrotic Tissue Slough: 10 % Groin Right - Incision, Wound Cleansing: Soap and water Groin Right - Incision, Wound Dressing/Activity: Removed Groin Right - Incision, Wound Surrounding Tissue: Erythema, Moist Groin Right - Incision, Wound Topical Agent: Antifungal Powder Groin Right - Skin Abnormality Pattern: Other: moisture erosion VS procedure site slow healing Groin Right - Skin Abnormality Type: Dermatitis Groin Right - Wound Associated Pain: With Cleansing Groin Right - Wound Bed Description: Granulation Groin Right - Wound Percent Granulated: 100 % Leg Right - Incision, Wound Dressing: Open to Air Leg Right - Skin Abnormality Type: Abrasion Leg Right - Wound Associated Pain: None Leg Right - Wound Bed Description: Crusting, Scab Leg Right - Wound Exudate Amount: None Leg Right - Wound Status: No complications Assessments and Recommendations ------Recommendations------ Recommended Skin/Wound Interventions: Low air loss mattress, Heel protectors, Pressure relief ankle/foot boot, Turn and position system, Barrier cream, Turn and reposition every 2 hours, Consult Dietitian, Proposed orders sent to physician, Other: DRIGO, Calmoseptine, adaptic & gauze to foot, skin prep Achilles ABD & gauze Additional Skin Team Comments: PCP manages foot ulcer & home care treats 04/11: Recommend: Continue foot dressing for protection & Achilles treatment. Ordered Tension pillows to assist with offloading, patient declines soft boots/heel protectors, Removed Adaptic & ABD dressings from each groin site. Spoke with primary nurse, Adelita, Adaptic is adding moisture to moist area, not needed, just apply miconazole powder (recommend stop date) after good hygiene, clean & dry BID, New LFA tear: Adaptic, gauze & wrap Education Individuals Taught: Patient Learning Readiness: Willing to learn Barriers to Learning: None evident Teaching Method: Explanation Problem List/Past Medical History Ongoing Abscess of external ear Acute sinusitis Aftercare following surgery ANDRIY (acute kidney injury) Anemia Angina Arm skin lesion, right Arthritis Asthma At risk for falls B12 deficiency Back pain Callaway's esophagus Bilateral leg cramps CAD (coronary artery disease) CAD (coronary artery disease) Cellulitis Cerebrovascular accident (CVA) of uncertain pathology Chronic anticoagulation Chronic constipation Chronic low back pain CKD (chronic kidney disease) requiring chronic dialysis Community acquired pneumonia Diverticulosis Draining postoperative wound Elevated ferritin Elevated sed rate Empty sella Fall at home Generalized weakness GERD (gastroesophageal reflux disease) Glasses H/O adrenal insufficiency Has Numbness Head injury Hematoma of leg History of left heart catheterization Hypercalcemia Hypercholesterolemia Hypertension Hypokalemia Hypotension Hypothyroidism Infected skin tear Itching of skin Laceration of face Left lower lobe pneumonia Leg pain Lower extremity weakness Lumbar herniated disc MRSA (methicillin resistant Staphylococcus aureus) Multiple wounds of skin MVP (mitral valve prolapse) Myalgia Neuropathy involving both lower extremities Osteoporosis Osteoporosis Peripheral edema Peripheral vascular disease PTCA - Percutaneous transluminal coronary angioplasty Purpura PVD (peripheral vascular disease) Renal failure Rheumatoid arthritis Seizure disorder Severe anemia Shortness of breath Skin lesion Skin tear of lower leg without complication Skin tear of right lower leg without complication SOBOE (shortness of breath on exertion) Spinal stenosis Status post arterial stent Subacute confusional state of cerebrovascular origin Tear of skin of multiple sites of left lower extremity Unsteady gait Vitamin D deficiency Weight gain Well adult exam Historical Anemia Colon polyps HTN (hypertension) NV (myocardial infarction) Pneumonia Digitally Signed by REN Darden on 04/11/2025 10:29 AM [facility] 04-09-2025 Note Exam Date Time Procedure Performing Provider Status 04/09/25 11:49 PM Electrocardiogram - EKG - CV DARNELL BERRY MD; Auth (Verified) ECG Final Report SINUS RHYTHM NONSPECIFIC INTRAVENTRICULAR CONDUCTION DELAY LOW VOLTAGE, EXTREMITY AND PRECORDIAL LEADS LATERAL INFARCT, ACUTE (LAD) BORDERLINE ST ELEVATION, ANTERIOR LEADS Electronic Signature: LUIS MIGUEL BERRY MD 04/10/2025 22:16:23 [id number] Note* Exam Date Time Procedure Performing Provider Status 04/09/25 8:11 PM Electrocardiogram - EKG - CV CAREN BERRY MD; Auth (Verified) ECG Final Report SINUS RHYTHM NONSPECIFIC INTRAVENTRICULAR CONDUCTION DELAY ANTEROLATERAL INFARCT, ACUTE (LAD) Electronic Signature: LUIS MIGUEL BERRY MD 04/10/2025 22:16:15 [id number] Note Date of Service 04/09/2025 [facility] Cardiac Critical Cardiac Progress: 04/09/2025 14:30:08 Patient Name: MARCOS SHELTON : 1950 Reason for Consult: Cardiogenic shock HPI: 74 year-old female with PMH significant for CAD s/p PCI, HTN, HLD, asthma, ESRD on MWF iHD, PVD whopresented to ED on 04/04 with chest pain. EKG revealed anterior STEMI. Patient taken to record label internship forPCI to LAD with YAMILET-3 flow. On 04/06, patient developed chest pain and hypotension during iHD in setting of new onset rapid atrial fibrillation. She was noted to have cold extremities and cyanosis. Patient was started on norepinephrine. She received magnesium and converted to NSR with improvement in hemodynamics. LVEF now 20-25% (baseline 55% in 2021). 04/07: No acute events overnight. Comfortable on BiPAP. Currently receiving dialysis. Requiring low dose norepinephrine. Reports feeling better. No respiratory distress. 04/08: No acute events overnight, however this morning patient had recurrent chest pain and was taken to record label internship. No lesions found on LHC. Patient now breathing comfortably on 1-2L nasal cannula. Reports brething is much better. She remains on low dose peripheral levo. Femoral sheath is transducingBP that is around 10 mmgHG higher than peripheral cuff pressures are reading. 04/09: No acute events. Did not require levo overnight. Stable on nasal cannula. Scheduled for dialysis today. Giving 10 mg midodrine prior to session. Reports feeling better. No dyspnea. Allergies: ALLERGIES Medications: acetaminophen-hydrocodone: 1 tab(s), Oral, BID albuterol: 2.5 mg = 3 mL, Inhalation, q6h, PRN (for wheezing) clopidogrel: 75 mg = 1 tab(s), Oral, qDay furosemide: 40 mg = 1 tab(s), Oral, qDay herbal/nutritional product: 1tab, Oral, qDay hydrOXYzine: 25 mg = 1 tab(s), Oral, QID, PRN (as needed for itching) levETIRAcetam: 500 mg = 1 tab(s), Oral, BID levothyroxine: 50 mcg = 1 tab(s), Oral, qDay linaclotide: 290 mcg = 1 cap(s), Oral, qDay melatonin: 30 mg, Oral, qHS metoprolol: 25 mg = 1 tab(s), Oral, qDay, Do not crush or chew (controlled release) midodrine: 10 mg = 1 tab(s), TAKE 1 TABLET BY MOUTH ON DIALYSIS DAYS, TAKE 1 HOUR BEFORE montelukast: 10 mg = 1 tab(s), Oral, qPM nitroGLYcerin: 0.4 mg = 1 tab(s), Sublingual, q5min, PRN (as needed for chest pain) omeprazole: 40 mg = 1 cap(s), Oral, BID ondansetron: 4 mg = 1 tab(s), Oral, q6h, PRN (Nausea/Vomiting) polyethylene glycol 3350: See Instructions, gram(s) Oral qDay potassium chloride: 40 mEq = 2 tab(s), Oral, Sun/Tues/Thurs/Sat ranolazine: 500 mg = 1 tab(s), Oral, BID rosuvastatin: 40 mg = 1 tab(s), Oral, Daily sevelamer: 800 mg = 1 tab(s), Oral, TID Objective: Vitals Signs(Last 24 hrs)__ Last Charted Minimum Maximum Temp 36.7(APR 09 14:12) 36.7(APR 09 14:12) 37.0(APR 08 17:01) Heart Rate 82(APR 09 14:12) 71(APR 08 16:00) 86(APR 09 13:44) SBP 130(APR 09 14:12) 98(APR 08 23:29) 130(APR 09 14:12) DBP 60(APR 09 14:12) C 43(APR 08 17:37) 60(APR 09 12:15) Intake and Output (Last 24 hours) Intake Red Blood Cells Amount Transfused 280.00 Oral Intake 1290.00 Supplement Intake 240.00 Output Urine Voided 0.00 Urinary Catheter Output: 350.00 Hemodialysis 3000.00 Stool Count 0.00 Total Summary Total Intake 1810.00 Total Output 3350.00 Fluid Balance -1540.00 PHYSICAL EXAM: GENERAL: Chronically ill-appearing elderly female SKIN: Cool distal extremities. HEENT: atraumatic normocephalic. conjunctiva normal, oral mucus membranes moist HEART: _Tachycardic. Palpable peripheral pulses. Palpable thrill in right upper extremity fistula LUNGS: No tachypnea, increased work of breathing, or stridor. Clear to auscultation ABDOMEN: soft, nontender nondistended GENITOURINARY: Pure wick draining dark urine. Patient is ESRD but still makes some urine. MUSCULOSKELETAL: Pitting edema to extremities present NEURO: Awake alert answering questions appropriately. Moving all 4 extremity spontaneously purposely Labs: Event Name Event Result Date/Time WBC 8.3 10^3/mcL 04/09/25 03:53:00 Hgb 8.9 G/dL Low 04/09/25 03:53:00 Hct 26.3 % Low 04/09/25 03:53:00 Platelet 238 10^3/mcL 04/09/25 03:53:00 Glucose Level 97 mg/dL 04/09/25 03:53:00 Sodium Level 138 mEq/L 04/09/25 03:53:00 Potassium Level 4.3 mEq/L 04/09/25 03:53:00 Chloride 102 mEq/L 04/09/25 03:53:00 CO2 23 mEq/L 04/09/25 03:53:00 BUN 43 mg/dL High 04/09/25 03:53:00 Creatinine Lvl (s) 4.39 mg/dL High 04/09/25 03:53:00 Magnesium Lvl 2.7 mg/dL High 04/09/25 03:53:00 Assessment: -Anterior STEMI s/p PCI to LAD -Cardiogenic shock -New onset cardiomyopathy/HFrEF (20-25%) -New onset atrial fibrillation with RVR -ESRD on iHD -Peripheral vascular disease -asthma -Cardiogenic pulmonary edema with acute respiratory insufficiency Plan: -Wean to room air as able. Will keep BiPAP available at night for comfort. -Tolerated dialysis without needed norepinephrine. Recommend removing femoral sheath and using wrist cuff pressures. Recommend only starting vasopressors if MAP on cuff is <55 given significant discrepancy between cuff pressures and true blood pressure on femoral line. -Continue to observe off abx -Recommend mobilizing to chair this evening. -Continue pulmonary hygiene measures -iHD per nephron -[facility] will sign-off CPT: 05214 Digitally Signed by AILYN ALVARADO MD on 04/09/2025 02:30 PM [id number] Note Date of Service 04/08/2025 [facility] Card[facility] Critical Cardiac Progress: 04/08/2025 14:53:53 Patient Name: MARCOS SHELTON : 1950 Reason for Consult: Cardiogenic shock HPI: 74 year-old female with PMH significant for CAD s/p PCI, HTN, HLD, asthma, ESRD on MWF iHD, PVD whopresented to ED on 04/04 with chest pain. EKG revealed anterior STEMI. Patient taken to record label internship forPCI to LAD with YAMILET-3 flow. On 04/06, patient developed chest pain and hypotension during iHD in setting of new onset rapid atrial fibrillation. She was noted to have cold extremities and cyanosis. Patient was started on norepinephrine. She received magnesium and converted to NSR with improvement in hemodynamics. LVEF now 20-25% (baseline 55% in 2021). 04/07: No acute events overnight. Comfortable on BiPAP. Currently receiving dialysis. Requiring low dose norepinephrine. Reports feeling better. No respiratory distress. 04/08: No acute events overnight, however this morning patient had recurrent chest pain and was taken to record label internship. No lesions found on LHC. Patient now breathing comfortably on 1-2L nasal cannula. Reports brething is much better. She remains on low dose peripheral levo. Femoral sheath is transducingBP that is around 10 mmgHG higher than peripheral cuff pressures are reading. Allergies: ALLERGIES Medications: acetaminophen-hydrocodone: 1 tab(s), Oral, BID albuterol: 2.5 mg = 3 mL, Inhalation, q6h, PRN (for wheezing) clopidogrel: 75 mg = 1 tab(s), Oral, qDay furosemide: 40 mg = 1 tab(s), Oral, qDay herbal/nutritional product: 1tab, Oral, qDay hydrOXYzine: 25 mg = 1 tab(s), Oral, QID, PRN (as needed for itching) levETIRAcetam: 500 mg = 1 tab(s), Oral, BID levothyroxine: 50 mcg = 1 tab(s), Oral, qDay linaclotide: 290 mcg = 1 cap(s), Oral, qDay melatonin: 30 mg, Oral, qHS metoprolol: 25 mg = 1 tab(s), Oral, qDay, Do not crush or chew (controlled release) midodrine: 10 mg = 1 tab(s), TAKE 1 TABLET BY MOUTH ON DIALYSIS DAYS, TAKE 1 HOUR BEFORE montelukast: 10 mg = 1 tab(s), Oral, qPM nitroGLYcerin: 0.4 mg = 1 tab(s), Sublingual, q5min, PRN (as needed for chest pain) omeprazole: 40 mg = 1 cap(s), Oral, BID ondansetron: 4 mg = 1 tab(s), Oral, q6h, PRN (Nausea/Vomiting) polyethylene glycol 3350: See Instructions, gram(s) Oral qDay potassium chloride: 40 mEq = 2 tab(s), Oral, Sun/Tues/Thurs/Sat ranolazine: 500 mg = 1 tab(s), Oral, BID rosuvastatin: 40 mg = 1 tab(s), Oral, Daily sevelamer: 800 mg = 1 tab(s), Oral, TID Objective: Vitals Signs(Last 24 hrs)__ Last Charted Minimum Maximum Temp 36.8(APR 08 14:30) 36.8(APR 08 14:30) 36.7(APR 08 04:28) Heart Rate 85(APR 08 14:00) 75(APR 07 23:57) 95(APR 08 08:58) SBP 113(APR 08 14:30) L 77(APR 08 07:33) 129(APR 08 11:30) DBP 40(APR 08 14:30) C 12(APR 08 05:28) 78(APR 07 16:56) Intake and Output (Last 24 hours) Intake Oral Intake 300.00 Administration Information 66.63 Output Urinary Catheter Output: 0.00 Stool Count 0.00 Total Summary Total Intake 366.63 Total Output 0.00 Fluid Balance 366.63 PHYSICAL EXAM: GENERAL: Chronically ill-appearing elderly female SKIN: Cool distal extremities. HEENT: atraumatic normocephalic. conjunctiva normal, oral mucus membranes moist HEART: _Tachycardic. Palpable peripheral pulses. Palpable thrill in right upper extremity fistula LUNGS: No tachypnea, increased work of breathing, or stridor. Clear to auscultation ABDOMEN: soft, nontender nondistended GENITOURINARY: Pure wick draining dark urine. Patient is ESRD but still makes some urine. MUSCULOSKELETAL: Pitting edema to extremities present NEURO: Awake alert answering questions appropriately. Moving all 4 extremity spontaneously purposely Labs: Event Name Event Result Date/Time WBC 11.9 10^3/mcL High 04/08/25 07:28:00 Hgb 7.2 G/dL Low 04/08/25 07:28:00 Hct 21.3 % Low 04/08/25 07:28:00 Platelet 264 10^3/mcL 04/08/25 07:28:00 APTT >200.0 Critical 04/08/25 07:28:00 Glucose Level 103 mg/dL 04/08/25 08:07:00 Sodium Level 140 mEq/L 04/08/25 08:07:00 Potassium Level 4.2 mEq/L 04/08/25 08:07:00 Chloride 100 mEq/L 04/08/25 08:07:00 CO2 25 mEq/L 04/08/25 08:07:00 BUN 27 mg/dL High 04/08/25 08:07:00 Creatinine Lvl (s) 3.52 mg/dL High 04/08/25 08:07:00 Magnesium Lvl 2.5 mg/dL High 04/08/25 08:07:00 Lactic Acid Lvl 1.6 mmol/L 04/08/25 08:07:00 Assessment: -Anterior STEMI s/p PCI to LAD -Cardiogenic shock -New onset cardiomyopathy/HFrEF (20-25%) -New onset atrial fibrillation with RVR -ESRD on iHD -Peripheral vascular disease -asthma -Cardiogenic pulmonary edema with acute respiratory insufficiency Plan: -Wean to room air as able. Will keep BiPAP available tonight, but patient reports she does not feellike she needs it any longer. If stable off BiPAP tonight will discontinue order tomorrow. -MAP is 10 points higher than cuff pressure. Radial artery too small for art line - would need brachial/axillary line. She has been weaned off levo and MAP is holding around 75. If no pressor requirements overnight would remove art line and titrate to MAP goals on cuff >55. Will see if she requires vasopressor support during iHD tomorrow. -No indication for IV abx. Wound culture with colonization. The wound does not appear infected. Other cultures have remained negative. WBC downtrending and afebrile. -[facility] will follow CPT: 50977 Digitally Signed by AILYN ALVARADO MD on 04/08/2025 02:55 PM [id number] Note* Exam Date Time Procedure Performing Provider Status 04/08/25 10:43 AM XR Chest 1 View ZE HACKETT DO; Auth (Verified) [id number] ORIGINAL EXAMINATION: ONE XRAY VIEW OF THE CHEST 04/08/2025 10:44 am COMPARISON: Chest x-ray 04/07/2025, CTA chest 04/05/2025. HISTORY: ORDERING SYSTEM PROVIDED HISTORY: Reason for Exam: shortness of breath FINDINGS: Cardiomediastinal silhouette is stable. There is central venous congestion and bilateral interstitial prominence with cephalization of the vessels. This appears mildly worsened compared to prior study. No large pleural effusion or pneumothorax. Osseous structures appear intact. Lower cervical fusion hardware is noted. Right reverse shoulder arthroplasty is noted. IMPRESSION: Mildly increased central venous congestion and bilateral interstitial prominence is concerning for worsening pulmonary edema. Interpreted by: Ze Hackett Preliminary Report By: Ze Hackett Electronically signed By Ze Hackett Dictated Date: 04/08/2025 10:50:23 AM Prelim Date: 04/08/2025 10:52:20 AM Sign Date: 04/08/2025 10:52:20 AM Ordering Provider: AILYN ALVARADO [id number] Note* Exam Date Time Procedure Performing Provider Status 04/08/25 7:58 AM Cardiac Catheterization -CV CHRISTOPHER NAGEL MD; Auth (Verified) [id number] Note* Exam Date Time Procedure Performing Provider Status 04/08/25 7:06 AM Electrocardiogram - EKG - CV CAREN BERRY MD; Auth (Verified) ECG Final Report SINUS RHYTHM ANTEROLATERAL INFARCT, ACUTE (LAD) Electronic Signature: LUIS MIGUEL BERRY MD 04/09/2025 22:18:21 [id number] Note Date of Service 04/07/2025 [facility] Cardiac Critical Cardiac Progress: 04/07/2025 13:57:06 Patient Name: MARCOS SHELTON : 1950 Reason for Consult: Cardiogenic shock/respiratory distress HPI: 74 year-old female with PMH significant for CAD s/p PCI, HTN, HLD, asthma, ESRD on MWF iHD, PVD whopresented to ED on 04/04 with chest pain. EKG revealed anterior STEMI. Patient taken to record label internship forPCI to LAD with YAMILET-3 flow. On 04/06, patient developed chest pain and hypotension during iHD in setting of new onset rapid atrial fibrillation. She was noted to have cold extremities and cyanosis. Patient was started on norepinephrine. She received magnesium and converted to NSR with improvement in hemodynamics. LVEF now 20-25% (baseline 55% in 2021). 04/07: No acute events overnight. Comfortable on BiPAP. Currently receiving dialysis. Requiring low dose norepinephrine. Reports feeling better. No respiratory distress. Allergies: ALLERGIES Medications: acetaminophen-hydrocodone: 1 tab(s), Oral, BID albuterol: 2.5 mg = 3 mL, Inhalation, q6h, PRN (for wheezing) clopidogrel: 75 mg = 1 tab(s), Oral, qDay furosemide: 40 mg = 1 tab(s), Oral, qDay herbal/nutritional product: 1tab, Oral, qDay hydrOXYzine: 25 mg = 1 tab(s), Oral, QID, PRN (as needed for itching) levETIRAcetam: 500 mg = 1 tab(s), Oral, BID levothyroxine: 50 mcg = 1 tab(s), Oral, qDay linaclotide: 290 mcg = 1 cap(s), Oral, qDay melatonin: 30 mg, Oral, qHS metoprolol: 25 mg = 1 tab(s), Oral, qDay, Do not crush or chew (controlled release) midodrine: 10 mg = 1 tab(s), TAKE 1 TABLET BY MOUTH ON DIALYSIS DAYS, TAKE 1 HOUR BEFORE montelukast: 10 mg = 1 tab(s), Oral, qPM nitroGLYcerin: 0.4 mg = 1 tab(s), Sublingual, q5min, PRN (as needed for chest pain) omeprazole: 40 mg = 1 cap(s), Oral, BID ondansetron: 4 mg = 1 tab(s), Oral, q6h, PRN (Nausea/Vomiting) polyethylene glycol 3350: See Instructions, gram(s) Oral qDay potassium chloride: 40 mEq = 2 tab(s), Oral, Sun/Tues/Thurs/Sat ranolazine: 500 mg = 1 tab(s), Oral, BID rosuvastatin: 40 mg = 1 tab(s), Oral, Daily sevelamer: 800 mg = 1 tab(s), Oral, TID Objective: Vitals Signs(Last 24 hrs)__ Last Charted Minimum Maximum Temp 36.6(APR 07 13:46) 36.7(APR 07 10:25) H 37.4(APR 07 08:10) Heart Rate 79(APR 07 13:46) 76(APR 07 11:26) 97(APR 06 14:18) SBP 100(APR 07 13:46) 92(APR 07 05:25) 132(APR 06 14:33) DBP 62(APR 07 13:46) C 14(APR 07 03:55) H 95(APR 06 15:03) Intake and Output (Last 24 hours) Intake Oral Intake 120.00 Administration Information 489.91 Output Urinary Catheter Output: 0.00 Hemodialysis 1400.00 Total Summary Total Intake 609.90 Total Output 1400.00 Fluid Balance -790.10 PHYSICAL EXAM: GENERAL: Chronically ill-appearing elderly female SKIN: Cool distal extremities. HEENT: atraumatic normocephalic. conjunctiva normal, oral mucus membranes moist HEART: _Tachycardic. Palpable peripheral pulses. Palpable thrill in right upper extremity fistula LUNGS: _Wearing BiPAP. No tachypnea, increased work of breathing, or stridor ABDOMEN: soft, nontender nondistended GENITOURINARY: Pure wick draining dark urine. Patient is ESRD but still makes some urine. MUSCULOSKELETAL: Pitting edema to extremities present NEURO: Awake alert answering questions appropriately. Moving all 4 extremity spontaneously purposely Labs: Event Name Event Result Date/Time WBC 18.7 10^3/mcL High 08/16/25 12:16:00 Hgb 8.7 G/dL Low 04/07/25 12:16:00 Hct 26.6 % Low 04/07/25 12:16:00 Platelet 331 10^3/mcL 04/07/25 12:16:00 APTT 94.7 seconds High 04/07/25 12:16:00 Glucose Level 111 mg/dL 04/07/25 05:10:00 Sodium Level 138 mEq/L 04/07/25 05:10:00 Potassium Level 4.6 mEq/L 04/07/25 05:10:00 Chloride 99 mEq/L 04/07/25 05:10:00 CO2 24 mEq/L 04/07/25 05:10:00 BUN 31 mg/dL High 04/07/25 05:10:00 Creatinine Lvl (s) 3.96 mg/dL High 04/07/25 05:10:00 Magnesium Lvl 2.6 mg/dL High 04/07/25 05:10:00 Lactic Acid Lvl 2.8 mmol/L High 04/07/25 05:10:00 Assessment: -Anterior STEMI s/p PCI to LAD -Cardiogenic shock -New onset cardiomyopathy/HFrEF (20-25%) -New onset atrial fibrillation with RVR -ESRD on iHD -Peripheral vascular disease -asthma -Cardiogenic pulmonary edema with acute respiratory insufficiency Plan: -Continue NIV as needed for comfort. Patient only requiring 25% FiO2. CXR congested. Patient becomes dyspneic off NIV -Currently tolerating iHD. On low dose levo, wean off as able. May need to initiate midodrine on iHD days although this will increase afterload -Agree with amio. If recurrent afib accompanied by hemodynamic instability favor DCCV. Continue heparin -WBC elevated. Afebrile. Recommend infectious work-up with resp culture, procal, blood culture, urine culture (if able to produce urine) -If requiring increasing doses of levo after iHD completed would place left radial art line. -[facility] will follow Critical Care Time Attestation: [id number] I personally provided direct, [id number] critical care services to this patient totaling at least35 minutes of critical care time. During this period, I evaluated the patient s condition, implemented appropriate management strategies, and made time-sensitive decisions in line with accepted critical care guidelines. All services provided were in accordance with institutional protocols and current regulatory standards. Provider Attestation: By electronically signing this note, I certify that the above documentation accurately reflects my delivery of critical care services during the stated period. Ailyn Alvarado MD Digitally Signed by AILYN ALVARADO MD on 04/07/2025 01:59 PM [id number] Note* Exam Date Time Procedure Performing Provider Status 04/07/25 12:26 PM XR Chest 1 View RIGO METZ MD; [facility] (Verified) [id number] ORIGINAL HISTORY: Short of breath COMPARISON: Previous day FINDINGS: Study is mildly limited by habitus. Lung volumes are low. There hazy airspace opacities in the lung bases left greater than right. Pulmonary vasculature is unremarkable in appearance. IMPRESSION: Low lung volumes and increased basilar atelectasis/consolidation versus soft tissue artifact Interpreted by: Rigo Metz MD Preliminary Report By: Rigo Metz MD Electronically signed By Rigo Metz MD Dictated Date: 04/07/2025 12:47:24 PM Prelim Date: 04/07/2025 12:48:06 PM Sign Date: 04/07/2025 12:48:06 PM Ordering Provider: [facility]08-15-2025 Critical care medicine Consult note Date of Service [facility] Cardiac Critical Care Consultation Note Date: 04/06/2025 16:58:01 Patient Name: MARCOS SHELTON : 1950 ICU Admit Date:04/06/25 Reason for Consult: Critical Care HPI: Patient is a 74-year-old female with multiple medical comorbidities including asthma, CAD status post PCI on 04/05, heart failure with reduced ejection fraction, ESRD, and previous stroke who presentsfrom dialysis after developing A-fib RVR and subsequent hypotension. Patient states she does not feel like herself but complains mostly of left-sided chest pain. She notes this has been present sinceher left heart cath/stents and is worse when her heart rate is high. She denies recent cough that is productive, changes to her urinary status, or new skin changes/wounds. Impression: Cardiogenic shock HFrEF -anterior territory NV versus stress cardiomyopathy. Unstable atrial fibrillation STEMI status post PCI to LAD in the setting of anterior STEMI. Remote PCI to RCA and left circumflex ESRD Respiratory insufficiency Assessment/Plan: Chronically ill 74-year-old female presenting in unstable A-fib RVR. Upon meeting the patient she was hypotensive with thready peripheral pulses and cold extremities. She would have chest pain with heart rates greater than 140. She was hypotensive with inconsistent automatic cuff pressures and a manual of 80s over 40s. She had a Levophed requirement peripherally of 8 mcg/min. Upon communicating about likely cardioversion patient converted to normal sinus rhythm with administration of 2 g of magnesium over approximately 20 minutes. She felt improved overall and also had improvement of her chest pain, warmer extremities, palpable radial pulses. Patient was started on Amio drip and Levophed was down titrated. - Wean levo as able. If patient is unable to wean, has decompensation of her hemodynamics, would recommend arterial line. - Patient was symptomatic to heart rates exceeding 130s. Would reconsider cardioversion if the patient has unstable A-fib RVR. -Wean O2 as able. On nasal cannula 2 L. Increased to 4 L for comfort -Resume dialysis when hemodynamically stable - Agree with amnio drip per primary team. - CTA negative for dissection. Low clinical concern for PE to warrant repeat CTA. - Initial lactate following tachycardic episode/shock state of 2.6. Downtrended to 2.3. Trend. - CCM to follow Allergies: metOLazone; traMADol; Welchol; colesevelam; Macrodantin; Zaroxolyn; simvastatin; pravastatin; nitrofurantoin Past Medical History: NV (myocardial infarction) Pneumonia Colon polyps Anemia HTN (hypertension) Osteomyelitis of lumbar spine Past Surgical History: Fistula: 08/06/22 Echocardiogram: 02/27/22 Echocardiogram: 04/24/21 Echocardiogram: 03/15/20 Ankle brachial pressure index: 01/24/20 Echocardiogram: 02/14/18 Echocardiogram: 03/08/17 BRANDO - Arterial pressure index: 11/21/15 Cardiac catheterization: 2014 Bunionectomy: 08/31/14 Cardiac catheterization: 2013 Foot: 06/02/13 MUGA scan: 08/02/12 Fusion of lumbar spine: 08/05/10 Carpal tunnel release: 1994 Hysterectomy: 1979 Discectomy History of hemiarthroplasty of right hip Arthroplasty of right shoulder Coronary artery stent Esophagogastroduodenoscopy Lumpectomy of breast Social History: Alcohol Risk Assessment: Denies Alcohol Use; Details: Use: Never. Home/Environment Details: Domestic Concerns: None. Living situation: Home/Independent. 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 Current Home Treatments Nebulizer treatments. Professional Skilled Services or Special Community Resources [facility]. Spouse Name: Fausto. Marital Status: . Nutrition/Health Details: Type of diet: Regular. Appetite Good. Eating Difficulties None. Enteral Feedings No. TPN Feedings No. Skin Breakdown No. Caffeine intake amount: 1 serving of tea/day. Substance Abuse Risk Assessment: Denies Substance Abuse; Details: Use: Never. Tobacco Details: Nicotine Use: Former smoker, quit more than 30 days ago. Type: Cigarettes. Number of years: 11. Stopped at age: 48 Years. Family History: Mother: Cancer; Coronary artery disease; NV - myocardial infarction Father: Cancer; Congestive cardiac failure; HTN - Hypertension; Heart disease; Hyperchloremia Brother: Diabetes mellitus Son: Cancer; Diabetes Medications: acetaminophen-hydrocodone: 1 tab(s), Oral, BID albuterol: 2.5 mg = 3 mL, Inhalation, q6h, PRN (for wheezing) clopidogrel: 75 mg = 1 tab(s), Oral, qDay furosemide: 40 mg = 1 tab(s), Oral, qDay herbal/nutritional product: 1tab, Oral, qDay hydrOXYzine: 25 mg = 1 tab(s), Oral, QID, PRN (as needed for itching) levETIRAcetam: 500 mg = 1 tab(s), Oral, BID levothyroxine: 50 mcg = 1 tab(s), Oral, qDay linaclotide: 290 mcg = 1 cap(s), Oral, qDay melatonin: 30 mg, Oral, qHS metoprolol: 25 mg = 1 tab(s), Oral, qDay, Do not crush or chew (controlled release) midodrine: 10 mg = 1 tab(s), TAKE 1 TABLET BY MOUTH ON DIALYSIS DAYS, TAKE 1 HOUR BEFORE montelukast: 10 mg = 1 tab(s), Oral, qPM nitroGLYcerin: 0.4 mg = 1 tab(s), Sublingual, q5min, PRN (as needed for chest pain) omeprazole: 40 mg = 1 cap(s), Oral, BID ondansetron: 4 mg = 1 tab(s), Oral, q6h, PRN (Nausea/Vomiting) polyethylene glycol 3350: See Instructions, gram(s) Oral qDay potassium chloride: 40 mEq = 2 tab(s), Oral, Sun/Tues/Thurs/Sat ranolazine: 500 mg = 1 tab(s), Oral, BID rosuvastatin: 40 mg = 1 tab(s), Oral, Daily sevelamer: 800 mg = 1 tab(s), Oral, TID Review of Systems: Patient unable to participate in ROS due to sedation and intubation. Objective: Vitals Signs(Last 24 hrs)__ Last Charted Minimum Maximum Temp 36.8(APR 06 12:24) 36.8(APR 06 12:24) 36.8(APR 05 18:00) Heart Rate 93(APR 06 15:03) 93(APR 06 15:03) H 156(APR 06 10:40) SBP 119(APR 06 15:) L 80(APR 06 12:24) 132(APR 06 14:33) DBP H 95(APR 06 15:03) C 38(APR 06 11:15) H 95(APR 06 15:03) Intake and Output (Last 24 hours) Intake Hemodialysis Intake 248.00 Oral Intake 400.00 Supplement Intake 120.00 Output Urine Voided 150.00 Urinary Catheter Output: 100.00 Total Summary Total Intake 768.00 Total Output 250.00 Fluid Balance 518.00 PHYSICAL EXAM: GENERAL: Chronically ill-appearing elderly female SKIN: Cool distal extremities. HEENT: atraumatic normocephalic. conjunctiva normal, oral mucus membranes moist HEART: _Tachycardic. Thready peripheral pulses. Palpable thrill in right upper extremity fistula LUNGS: _Wearing nasal cannula oxygen. No tachypnea, increased work of breathing, or stridor ABDOMEN: soft, nontender nondistended GENITOURINARY: Pure wick draining dark urine. Patient is ESRD but still makes some urine. MUSCULOSKELETAL: Pitting edema to extremities present NEURO: Awake alert answering questions appropriately. Moving all 4 extremity spontaneously purposely Labs: Event Name Event Result Date/Time WBC 13.8 10^3/mcL High 04/06/25 08:13:00 Hgb 8.6 G/dL Low 04/06/25 08:13:00 Hct 26.1 % Low 04/06/25 08:13:00 Platelet 214 10^3/mcL 04/06/25 08:13:00 APTT 30.1 seconds 04/06/25 13:21:00 Protime 13.5 seconds 04/06/25 13:21:00 PT International Ratio 1.2 ratio 04/06/25 13:21:00 Glucose Level 120 mg/dL High 04/06/25 13:21:00 Sodium Level 139 mEq/L 04/06/25 13:21:00 Potassium Level 4.4 mEq/L 04/06/25 13:21:00 Chloride 99 mEq/L 04/06/25 13:21:00 CO2 29 mEq/L 04/06/25 13:21:00 BUN 24 mg/dL High 04/06/25 13:21:00 Creatinine Lvl (s) 3.09 mg/dL High 04/06/25 13:21:00 Magnesium Lvl 2.8 mg/dL High 04/06/25 13:21:00 Lactic Acid Lvl 2.9 mmol/L High 04/06/25 12:13:00 Imaging: XR Chest 1 View Result Date: April 06, 2025 Verified By: DOUGIE EVANS DO CLINICAL STATEMENT: IMPRESSION: Mild pulmonary edema pattern. CT Angio w/ + w/o Contrast/Dissection Result Date: April 05, 2025 Verified By: SHARMIN STEWARD MD CLINICAL STATEMENT: IMPRESSION: No evidence of acute thoracic aortic syndrome or other vascular abnormality. No acute chest findings. I have personally reviewed the images of this examination and agree with theresident's findings and interpretation. Echo: 1. Left ventricle: The cavity size is normal. Wall thickness is normal. Systolic function is severely reduced. The estimated ejection fraction is 20-25%. Akinesis of the apical myocardium. Diastolic dysfunction present but unable to assess severity. 2. Aortic valve: The annulus is mildly to moderately calcified. The leaflets are mildly thickened and mildly calcified. Thickening, consistent with sclerosis. Cusp separation is mildly reduced. There is at least mild tomoderate stenosis. The peak systolic velocity is 2.3 m/sec. The mean systolic gradient is 10 mm Hg. The LVOT to aorticvalve VTI ratio is 0.31. The valve area by VTI is 1.0 cm . 3. Mitral valve: The findings are consistent with trivial stenosis. 4. Right ventricle: Systolic function is mildly reduced. 5. Right atrium: The estimated right atrial pressure is 3 mm Hg. Recommendations: ICM/LAD territory vs Stress induced CM Pertinent Reviewed: Allergies, Medications, Labs, Imaging, and Physician and Nursing Notes. Critical Care services I provided [id number] minutes. The time involved in the performance of this care was exclusive of separately billable procedures, teaching time, and treating other patients. The time was spent personally by myself for the following activities: examination of the patient, ordering and/or performing treatment, reviewing the laboratory and radiographic studies and if applicable,ventilator management and blood gas interpretation. Patient treatment plan of care discussed with nursing, patient, family, primary team Darcie Matamoros DO Cardiac Critical Care Digitally Signed by DARCIE MATAMOROS DO on 04/06/2025 05:13 PM Digitally Signed by DARCIE MATAMOROS DO on 04/06/2025 05:16 PM [id number] Note* Exam Date Time Procedure Performing Provider Status 04/06/25 2:21 PM XR Chest 1 View DOUGIE EVANS DO; [facility] (Verified) [id number] ORIGINAL EXAMINATION: ONE XRAY VIEW OF THE CHEST 04/06/2025 2:21 pm COMPARISON: 01/04/2025 HISTORY: ORDERING SYSTEM PROVIDED HISTORY: Reason for Exam: SOB FINDINGS: Pulmonary vascular cephalization, veiling of the lower lobe vessels and cardiomegaly observed. There are scant bilateral pleural effusions. No acute bony abnormality is seen. IMPRESSION: Mild pulmonary edema pattern. Interpreted by: Dougie Evans DO Preliminary Report By: Dougie Evans DO Electronically signed By Dougie Evans DO Dictated Date: 04/06/2025 2:53:35 PM Prelim Date: 04/06/2025 2:54:54 PM Sign Date: 04/06/2025 2:54:54 PM Ordering Provider: CESAR GAVIRIA [id number] Note* Exam Date Time Procedure Performing Provider Status 04/06/25 12:46 PM Electrocardiogram - EKG - CV SA ANJEL DISLA MD; Auth (Verified) ECG Final Report SINUS RHYTHM LEFT ANTERIOR FASCICULAR BLOCK PROBABLE ANTERIOR INFARCT, ACUTE LATERAL LEADS ARE ALSO INVOLVED Electronic Signature: EMERITA DISLA MD 04/07/2025 08:44:47 [id number] Note* Exam Date Time Procedure Performing Provider Status 04/06/25 11:00 AM Electrocardiogram - EKG - CV SA ANJEL DISLA MD; Auth (Verified) ECG Final Report Atrial fibrillation with rapid V-rate ventricular premature complexes Left axis deviation ANTEROLATERAL MYOCARDIAL INFARCTION, PROBABLY RECENT Electronic Signature: EMERITA DISLA MD 04/07/2025 08:44:34 [id number] Note* Exam Date Time Procedure Performing Provider Status 04/06/25 8:29 AM Electrocardiogram - EKG - CV HAYLEE DISLA MD; Auth (Verified) ECG Final Report SINUS RHYTHM LAD, CONSIDER LEFT ANTERIOR FASCICULAR BLOCK PROBABLE ANTEROSEPTAL INFARCT, RECENT PROLONGED QT INTERVAL Electronic Signature: EMERITA DISLA MD 04/07/2025 08:43:32 [id number] Note* Exam Date Time Procedure Performing Provider Status 04/05/25 6:11 PM Echocardiogram, Adult - CV FRED LOPEZ MD; Auth (Verified) [id number] Note* Exam Date Time Procedure Performing Provider Status 04/05/25 4:51 PM Electrocardiogram - EKG - CV JUAN MOORE MD; Auth (Verified) ECG Final Report SINUS RHYTHM PROBABLE LATERAL INFARCT, AGE INDETERMINATE ANTEROSEPTAL INFARCT, AGE INDETERMINATE PROLONGED QT INTERVAL Electronic Signature: ELVIRA MOORE MD 04/06/2025 22:21:39 [id number] Note Date of Service 04/05/25 Reason for Consultation Admission From: Home Consult to Skin Team Nurse - Ordered -- 04/05/25 3:46:00 EDT, Impaired skin integrity, FOOT Skin Team Findings Vitals and Measurements T: 36.2 C (Skin) TMIN: 36.2 C (Skin) TMAX: 37.0 C (Oral) HR: 96 (Monitored) RR: 16 BP: 112/66 SpO2:99% WT: 85.0 kg Pressure Area Details ------Pressure Area------ Achilles Left, Distal - Pressure Area Description: Purple Achilles Left, Distal - Pressure Area Due to Licensed Electrician: Unique wrap removed Achilles Left, Distal - Pressure Area Length: 0.2 cm Achilles Left, Distal - Pressure Area Surrounding Tissue: Normal skin tone Achilles Left, Distal - Pressure Area Topical Agent: Skin Prep Achilles Left, Distal - Pressure Area Width: 0.7 cm Achilles Left, Distal - Pressure Ulcer Present On Admission: Yes Achilles Left, Distal - Pressure Ulcer Stage: Deep tissue injury Achilles Left, Proximal - Pressure Area Description: Purple Achilles Left, Proximal - Pressure Area Drainage: None Achilles Left, Proximal - Pressure Area Due to Licensed Electrician: unique wrap removed Achilles Left, Proximal - Pressure Area Length: 0.2 cm Achilles Left, Proximal - Pressure Area Surrounding Tissue: Normal skin tone Achilles Left, Proximal - Pressure Area Topical Agent: Skin Prep Achilles Left, Proximal - Pressure Area Width: 0.5 cm Achilles Left, Proximal - Pressure Ulcer Present On Admission: Yes Achilles Left, Proximal - Pressure Ulcer Stage: Deep tissue injury Buttock Left, Inner - Pressure Area Depth: 0.1 cm Buttock Left, Inner - Pressure Area Description: Dermal tissue Buttock Left, Inner - Pressure Area Drainage: Scant, Serous Buttock Left, Inner - Pressure Area Length: 1 cm Buttock Left, Inner - Pressure Area Surrounding Tissue: Erythema, Moist Buttock Left, Inner - Pressure Area Width: 1 cm Buttock Left, Inner - Pressure Ulcer Present On Admission: Yes Buttock Left, Inner - Pressure Ulcer Stage: Stage 2 ------Pressure Area Measurements------ Achilles Left, Distal - Pressure Area Length: 0.2 cm Achilles Left, Distal - Pressure Area Width: 0.7 cm Achilles Left, Proximal - Pressure Area Length: 0.2 cm Achilles Left, Proximal - Pressure Area Width: 0.5 cm Buttock Left, Inner - Pressure Area Depth: 0.1 cm Buttock Left, Inner - Pressure Area Length: 1 cm Buttock Left, Inner - Pressure Area Width: 1 cm ------Incision/Wound------ Breast Left Skin fold - Incision, Wound Surrounding Tissue: Moist Breast Left Skin fold - Skin Abnormality Color: Red Breast Left Skin fold - Skin Abnormality Type: Dermatitis Breast Left Skin fold - Wound Bed Description: Other: skin intact Ear Right Medial - Skin Abnormality Type: Abrasion Ear Right Medial - Wound Bed Description: Scab Foot Left - Incision, Wound Dressing Assessment: Dry, Intact Foot Left - Incision, Wound Dressing/Activity: Changed Foot Left - Incision, Wound Dressing: ABD dressing pad, Gauze bandage roll, Oil Emulsion (Adaptic) Foot Left - Non-Pressure Ulcer Type: Undiagnosed ulcer Foot Left - Skin Abnormality Pattern: Crusted, Raised Foot Left - Skin Abnormality Type: Non-pressure ulcer Foot Left - Wound Bed Description: Crusting, Other: 2 areas Foot Left - Wound Exudate Amount: None Foot Left - Wound Status: No complications Forearm Left - Incision, Wound Surrounding Tissue: Dry, Fragile, Pigmentation increased Forearm Left - Skin Abnormality Type: Tear Forearm Left - Wound Bed Description: Scab Groin Right - Incision, Wound Dressing Assessment: Drainage present Groin Right - Incision, Wound Dressing/Activity: Assessed Groin Right - Incision, Wound Dressing: Gauze dressing, Transparent dressing Leg Right - Skin Abnormality Pattern: Scattered Leg Right - Skin Abnormality Type: Abrasion Leg Right - Wound Bed Description: Scab Leg Right - Wound Status: No complications Assessments and Recommendations ------Recommendations------ Recommended Skin/Wound Interventions: Low air loss mattress, Heel protectors, Pressure relief ankle/foot boot, Turn and position system, Barrier cream, Turn and reposition every 2 hours, Consult Dietitian, Proposed orders sent to physician, Other: DRIGO, Calmoseptine, Adaptic & gauze to foot, skin prep Achilles ABD & gauze Additional Skin Team Comments: PCP manages foot ulcer & home care treats Education No qualifying data available. Problem List/Past Medical History Ongoing Abscess of external ear Acute sinusitis Aftercare following surgery ANDRIY (acute kidney injury) Anemia Angina Arm skin lesion, right Arthritis Asthma At risk for falls B12 deficiency Back pain Callaway's esophagus Bilateral leg cramps CAD (coronary artery disease) CAD (coronary artery disease) Cellulitis Cerebrovascular accident (CVA) of uncertain pathology Chronic anticoagulation Chronic constipation Chronic low back pain CKD (chronic kidney disease) requiring chronic dialysis Community acquired pneumonia Diverticulosis Draining postoperative wound Elevated ferritin Elevated sed rate Empty sella Fall at home Generalized weakness GERD (gastroesophageal reflux disease) Glasses H/O adrenal insufficiency Has Numbness Head injury Hematoma of leg History of left heart catheterization Hypercalcemia Hypercholesterolemia Hypertension Hypokalemia Hypotension Hypothyroidism Infected skin tear Itching of skin Laceration of face Left lower lobe pneumonia Leg pain Lower extremity weakness Lumbar herniated disc MRSA (methicillin resistant Staphylococcus aureus) Multiple wounds of skin MVP (mitral valve prolapse) Myalgia Neuropathy involving both lower extremities Osteoporosis Osteoporosis Peripheral edema Peripheral vascular disease PTCA - Percutaneous transluminal coronary angioplasty Purpura PVD (peripheral vascular disease) Renal failure Rheumatoid arthritis Seizure disorder Severe anemia Shortness of breath Skin lesion Skin tear of lower leg without complication Skin tear of right lower leg without complication SOBOE (shortness of breath on exertion) Spinal stenosis Status post arterial stent Subacute confusional state of cerebrovascular origin Tear of skin of multiple sites of left lower extremity Unsteady gait Vitamin D deficiency Weight gain Well adult exam Historical Anemia Colon polyps HTN (hypertension) NV (myocardial infarction) Pneumonia Digitally Signed by REN Darden on 04/05/2025 12:45 PM [id number] Note* Exam Date Time Procedure Performing Provider Status 04/05/25 4:[address] Angio w/ + w/o Contrast/Dissection SHARMIN STEWARD MD; Auth (Verified) [id number] ORIGINAL EXAMINATION: CTA OF THE CHEST WITH AND WITHOUT CONTRAST04/05/2025 4:42 am TECHNIQUE: CTA of the chest was performed before and after the administration of intravenous contrast. Multiplanar reformatted images are provided for review. MIP images are provided for review. Automated exposure control, iterative reconstruction, and/or weight based adjustment of the mA/kV was utilized to reduce the radiation dose to as low as reasonably achievable. COMPARISON: CTA chest 03/30/2017 HISTORY: ORDERING SYSTEM PROVIDED HISTORY: Reason for Exam: New chest pain, different in quality than STEMI pain, started 2 hours prior, radiating to neck FINDINGS: VASCULAR: Precontrast images demonstrate no intramural hematoma or mediastinal hemorrhage. There is no evidence of a thoracic aortic aneurysm, thoracic aortic dissection or penetrating aortic ulcer. The main pulmonary artery is normal in caliber. The pulmonary arteries are grossly unremarkable. The heart is normal in size. No pericardial effusion. Coronary artery stent/atherosclerosis. Aortic atherosclerosis. The great vessels are normal in course and caliber. There is a small amount of pericardial recess fluid. BONES: Remodel left-sided rib deformities. Degenerative changes of the spine. THYROID/AIRWAY: The thyroid gland is not well evaluated on this exam. The trachea and mainstem bronchi are patent. LYMPH NODES: No pathologically enlarged mediastinal, axillary, or hilar lymph nodes. LUNGS: Scattered pleuroparenchymal scarring. Calcified granuloma in the left upper lobe. Bilateral dependent and bibasilar atelectasis. No suspicious pulmonary masses. No focal consolidation, pleural effusion, or pneumothorax. ABDOMEN: Small hiatal hernia. The visualized upper abdomen demonstrates no acute abnormalities. IMPRESSION: No evidence of acute thoracic aortic syndrome or other vascular abnormality. No acute chest findings. I have personally reviewed the images of this examination and agree with the resident's findings and interpretation. Interpreted by: Sharmin Steward MD Preliminary Report By: Alice Ordoñez Electronically signed By Sharmin Steward MD Dictated Date: 04/05/2025 4:45:36 AM Prelim Date: 04/05/2025 4:56:54 AM Sign Date: 04/05/2025 8:07:55 AM Ordering Provider: [facility]08-14-2025 Note* Exam Date Time Procedure Performing Provider Status 04/05/25 2:53 AM Electrocardiogram - EKG - CV CRISTINA SCHUMACHER MD; Auth (Verified) ECG Final Report SINUS RHYTHM ABNORMAL LATERAL Q WAVES PROBABLE ANTEROSEPTAL INFARCT, RECENT Electronic Signature: CRISTINA GIFFORD MD 04/05/2025 10:43:48 [id number] Nephrology Consult note Date of Service April 04, 2025 Reason for Consultation End-stage renal disease History of Present Illness Patient is 74 years old. History of end-stage renal disease currently on hemodialysis on Wednesdays and Fridays. She has a right arm AV fistula. She had her routine treatment this morning. She did complete the treatment. After dialysis she developed substernal chest pressure 10 out of 10. She was found to have ST segment changes in her anterior leads. She does have a known history of coronary disease. Because of the EKG changes, she was transferred to [place] and underwent emergent heart catheterization. Heart cath revealed occlusion of her LAD. She underwent PCI to LAD. She is now recovering. No further chest pressure. No shortness of breath. Review of Systems As above, developed substernal chest pressure after dialysis today. This is now resolved. She has noticed increasing dyspnea on exertion. She has had rare episodes of chest pressure but not to the severity of earlier today. No active nausea or emesis. Appetite is fair. No fevers or chills. No cough. Dialysis access is a right upper arm AV fistula Physical Exam Vitals and Measurements HR: 72 (Monitored) RR: 18 BP: 84/40 SpO2: 98% HT: 162.6 cm WT: 87.1 kg BMI: 32.94 Weight Dosing Weight: 87.1 kg (04/04/25) General: No distress lying supine after heart cath HEENT: Mucosa was moist, sclera anicteric, extraocular muscles intact, neck veins were flat, no carotid bruits Lungs: Clear bilaterally with no crackles wheezes or rhonchi Heart: Regular with no murmurs rubs or gallops Abdomen: Positive bowel sounds, soft, no palpable masses Access: Right upper arm AV fistula with positive bruit and thrill Extremities: No edema, pulses 2+ in all 4 extremities Skin: No rashes, normal turgor Lab Results 04/04 11:58 WBC: 7.8 Hgb: 10.7 L Hct: 32.5 L Platelet: 163 Neutrophil %: 68.7 Assessment/Plan 1. End-stage renal disease: Dialysis Wednesday. Completed her treatment this morning.Neck scheduled treatment will be Wednesday. She is not fluid overloaded on exam. Will monitor her electrolytes. AV fistula is patent. 2. ST elevation myocardial infarction: Patient had occlusion of her LAD and underwent PCI earlier today 3Hypotension: This is chronic. Will resume home midodrine likely tomorrow Problem List/Past Medical History Ongoing Abscess of external ear Acute sinusitis Aftercare following surgery ANDRIY (acute kidney injury) Anemia Angina Arm skin lesion, right Arthritis Asthma At risk for falls B12 deficiency Back pain Callaway's esophagus Bilateral leg cramps CAD (coronary artery disease) CAD (coronary artery disease) Cellulitis Cerebrovascular accident (CVA) of uncertain pathology Chronic anticoagulation Chronic constipation Chronic low back pain CKD (chronic kidney disease) requiring chronic dialysis Community acquired pneumonia Diverticulosis Draining postoperative wound Elevated ferritin Elevated sed rate Empty sella Fall at home Generalized weakness GERD (gastroesophageal reflux disease) Glasses H/O adrenal insufficiency Has Numbness Head injury Hematoma of leg History of left heart catheterization Hypercalcemia Hypercholesterolemia Hypertension Hypokalemia Hypotension Hypothyroidism Infected skin tear Itching of skin Laceration of face Left lower lobe pneumonia Leg pain Lower extremity weakness Lumbar herniated disc MRSA (methicillin resistant Staphylococcus aureus) Multiple wounds of skin MVP (mitral valve prolapse) Myalgia Neuropathy involving both lower extremities Osteoporosis Osteoporosis Peripheral edema Peripheral vascular disease PTCA - Percutaneous transluminal coronary angioplasty Purpura PVD (peripheral vascular disease) Renal failure Rheumatoid arthritis Seizure disorder Severe anemia Shortness of breath Skin lesion Skin tear of lower leg without complication Skin tear of right lower leg without complication SOBOE (shortness of breath on exertion) Spinal stenosis Status post arterial stent Subacute confusional state of cerebrovascular origin Tear of skin of multiple sites of left lower extremity Unsteady gait Vitamin D deficiency Weight gain Well adult exam Historical Anemia Colon polyps HTN (hypertension) NV (myocardial infarction) Pneumonia Procedure/Surgical History Fistula: 08/06/22 Echocardiogram: 02/27/22 Echocardiogram: 04/24/21 Echocardiogram: 03/15/20 Ankle brachial pressure index: 01/24/20 Echocardiogram: 02/14/18 Echocardiogram: 03/08/17 BRANDO - Arterial pressure index: 11/21/15 Cardiac catheterization: 2014 Bunionectomy: 08/31/14 Cardiac catheterization: 2013 Foot: 06/02/13 MUGA scan: 08/02/12 Fusion of lumbar spine: 08/05/10 Carpal tunnel release: 1994 Hysterectomy: 1978 Coronary artery stent Discectomy History of hemiarthroplasty of right hip Arthroplasty of right shoulder Esophagogastroduodenoscopy Lumpectomy of breast Medications Inpatient acetaminophen-hydrocodone 325 mg-5 mg oral tablet, 1 tab(s), Oral, BID albuterol 2.5 mg/3 mL (0.083%) inhalation solution, 2.5 mg= 3 mL, Inhalation, q6h, PRN aspirin, 81 mg= 1 tab(s), Oral, Daily Colace, 100 mg= 1 cap(s), Oral, BID, PRN Dextrose 50% IV Push, 25 gram(s)= 50 mL, IV Push, AsDirected, PRN heparin 5000 units/mL injection, 5000 unit(s)= 1 mL, Subcutaneous, q8h levETIRAcetam, 500 mg= 1 tab(s), Oral, BID levothyroxine, 50 mcg= 1 tab(s), Oral, qDay magnesium sulfate for IV bolus, 2 gram(s)= 50 mL, IV Piggyback, AsDirected, PRN magnesium sulfate for IV bolus, 4 gram(s)= 100 mL, IV Piggyback, AsDirected, PRN magnesium sulfate for IV bolus melatonin, 3 mg= 1 tab(s), Oral, qHS, PRN melatonin, 30 mg= 6 tab(s), Oral, qHS metoprolol succinate 25 mg oral TABLET extended release, 25 mg= 1 tab(s), Oral, qDay midodrine, 10 mg= 2 tab(s), Oral, PREOP pharm Miralax Powder Packet, 17 gram(s)= 15 mL, Oral, qDay, PRN Nitrostat, 0.4 mg= 1 tab(s), Sublingual, q5min, PRN NO METFORMIN (Glucophage) X 48hrs-patient has received contrast, 1 EA, Miscellaneous, Daily NS 1,000 mL, 1000 mL, Intravenous Pepcid, 20 mg= 1 tab(s), Oral, q48h Plavix, 75 mg= 1 tab(s), Oral, qDay potassium chloride, 20 mEq= 1 tab(s), Oral, AsDirected, PRN potassium chloride, 40 mEq= 2 tab(s), Oral, AsDirected, PRN potassium chloride, 40 mEq= 2 tab(s), Oral, AsDirected, PRN potassium chloride bolus, 20 mEq= 100 mL, IV Piggyback, AsDirected, PRN Protonix, 40 mg= 1 tab(s), Oral, qDayAC Singulair, 10 mg= 1 tab(s), Oral, qPM Tylenol, 650 mg= 2 tab(s), Oral, q4h, PRN Home acetaminophen-hydrocodone 325 mg-5 mg oral tablet, 1 tab(s), Oral, BID albuterol 2.5 mg/3 mL (0.083%) inhalation solution, 2.5 mg= 3 mL, Inhalation, q6h, PRN furosemide 40 mg oral tablet, 40 mg= 1 tab(s), Oral, qDay, 1 refills hydrOXYzine hydrochloride 25 mg oral tablet, 25 mg= 1 tab(s), Oral, QID, PRN, 2 refills levETIRAcetam 500 mg oral tablet, 500 mg= 1 tab(s), Oral, BID levothyroxine 50 mcg (0.05 mg) oral tablet, 50 mcg= 1 tab(s), Oral, qDay, 3 refills Linzess 290 mcg oral capsule, 290 mcg= 1 cap(s), Oral, qDay melatonin, 30 mg, Oral, qHS metoprolol succinate 25 mg oral TABLET extended release, 25 mg= 1 tab(s), Oral, qDay, 2 refills midodrine 10 mg oral tablet, 10 mg= 1 tab(s) MiraLax oral powder for reconstitution, See Instructions Nitrostat 0.4 mg sublingual tablet, 0.4 mg= 1 tab(s), Sublingual, q5min, PRN, 2 refills omeprazole 40 mg oral delayed release capsule, 40 mg= 1 cap(s), Oral, BID Plavix 75 mg oral tablet, 75 mg= 1 tab(s), Oral, qDay, 1 refills potassium chloride 20 mEq oral tablet, extended release, 40 mEq= 2 tab(s), Oral, Sun/Tues/Thurs/Sat, 2 refills Probiotic, 1tab, Oral, qDay Ranexa 500 mg oral tablet, extended release, 500 mg= 1 tab(s), Oral, BID, 1 refills rosuvastatin 40 mg oral tablet, 40 mg= 1 tab(s), Oral, Daily, 3 refills sevelamer carbonate 800 mg oral tablet, 800 mg= 1 tab(s), Oral, TID Singulair 10 mg oral tablet, 10 mg= 1 tab(s), Oral, qPM, 3 refills Zofran 4 mg oral tablet, 4 mg= 1 tab(s), Oral, q6h, PRN Allergies Macrodantin (Moderate) HIVES Welchol Unsure Zaroxolyn Unsure colesevelam Unknown metOLazone Unknown nitrofurantoin Unknown pravastatin liver simvastatin Liver traMADol GI upset Social History Alcohol - Denies Alcohol Use, 06/05/2017 Use: Never., 03/03/2019 Home/Environment Domestic Concerns: None. Living situation: Home/Independent. 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 Current Home Treatments Nebulizer treatments. Professional Skilled Services or Special Community Resources [facility]. Spouse Name: Fausto. Marital Status: ., 2022 Nutrition/Health Type of diet: Regular. Appetite Good. Eating Difficulties None. Enteral Feedings No. TPN Feedings No. Skin Breakdown No. Caffeine intake amount: 1 serving of tea/day., 11/07/2020 Substance Abuse - Denies Substance Abuse, 06/05/2017 Use: Never., 03/03/2019 Tobacco Nicotine Use: Former smoker, quit more than 30 days ago. Type: Cigarettes. Number of years: 11. Stopped at age: 48 Years., 02/28/2025 Family History Asthma: Negative: Mother, Father, Sister, Brother, Daughter and Son. Cancer: Mother, Father and Son.Negative: Sister and Brother. Congestive cardiac failure: Father. Coronary artery disease: Mother. Diabetes: Son. Diabetes mellitus: Brother.Negative: Mother, Father, Sister, Daughter and Son. HIV: Negative: Mother, Father, Sister, Brother, Daughter and Son. HTN - Hypertension: Father.Negative: Mother, Sister, Brother, Daughter and Son. Heart disease: Father.Negative: Mother, Sister, Brother, Daughter and Son. Hepatitis: Negative: Mother, Father, Sister, Brother, Daughter and Son. Hyperchloremia: Father.Negative: Mother, Sister, Brother, Daughter and Son. NV - myocardial infarction: Mother (Dx at 50). Mental illness: Negative: Mother, Father, Sister, Brother, Daughter and Son. Seizure: Negative: Mother, Father, Sister, Brother, Daughter and Son. Stroke: Negative: Mother, Father, Sister, Brother, Daughter and Son. TB - Tuberculosis: Negative: Mother, Father, Sister, Brother, Daughter and Son. Health Status Family Member(s) Immunizations pneumococcal 13-valent conjugate vaccine: 0 unknown unit (03/04/20) SARS-CoV-2 (COVID-19) Ad26 vaccine: 0 unknown unit (02/11/21) tetanus-diphtheria toxoidsMUL.ORD![id number]: 0 unknown unit (03/07/11) tetanus/diphtheria/pertussMUL.ORD![id number]: 0.5 unknown unit (03/16/23) tetanus/diphtheria/pertussMUL.ORD![id number]: 0.5 unknown unit (01/19/22) zoster vaccine live: 0 unknown unit (03/04/20) zoster vaccine, inactivated: 0 unknown unit (06/28/20) Digitally Signed by DARCIE MCDONALD MD on 04/04/2025 02:10 PM [id number] Evaluation + Plan noteExtracted from: Title:History and Physical Author:KEL MACIAS MD Date:04/04/25 74-year-old female with past medical history of coronary artery disease status post PCI, hypertension, dyslipidemia, end-stage renal disease on dialysis, peripheral vascular disease presented with the complaint of chest pain. ASSESSMENT # STEMI, anterior #History of coronary artery disease #Hypertension #Dyslipidemia #Peripheral vascular disease #End-stage renal disease on dialysis Plan Patient presented as acute STEMI presentation. On left heart cath, LAD was noted to be occluded, patient underwent PCI to LAD. Achieved YAMILET-3 flow. For dual antiplatelet therapy will be continued aspirin and Plavix. Will resume statin at home medication. Will consult nephrology given history of end-stage renal disease. Close monitoring. Will follow-up with the labs. Addendum by ONEAL BHATIA MD on April 04, 2025 13:10:05 EDT I have personally seen, examined, and evaluated the patient on the encounter date. I have reviewed the fellow s documentation and agree with the fellow s findings and plan as documented, unless otherwise stated. Future Appointments Appointment Date:05/14/2025 10:15:00 AM Scheduled Provider:STACEY RODRIGUEZ MD Location:[facility] Appointment Type:[facility] OV Follow Up w/MD Appointment Date:05/15/2025 10:00:00 AM Scheduled Provider:LUAN DANIEL Location:[facility] Appointment Type:CV [facility] Hospital Follow Up Diagnostic Tests Pending * Culture Respiratory with Gram Stain 04/07/25 * Urinalysis w/ C&S if Indicated 04/07/25 Future Scheduled Tests Laboratory* Ferritin 05/08/25 * Ferritin 06/20/24 * Free T4 06/20/24 * Vitamin B12 Level 06/20/24 * Complete Blood Count 05/08/25 * Complete Blood Count 06/20/24 * Iron Studies 05/08/25 * Vitamin D Level 06/20/24 [facility] 08-13-2025 History and physical note Date of Service 04/04/2025 Chief Complaint Chest pain STEMI History of Present Illness 74-year-old female with past medical history of coronary artery disease status post PCI, hypertension, dyslipidemia, end-stage renal disease on dialysis, peripheral vascular disease presented with the complaint of chest pain. Patient was undergoing her routine scheduled dialysis session after that she started having central chest pain. It was 10/10 intensity, central, radiating to her left arm and jaw. For further evaluation patient had a EKG done that showed ST elevation in the anterior leads. Patient was transferred to [facility] for further management. Review of Systems Reviewed and negative except mentioned in HPI Physical Exam Vitals and Measurements No qualifying data available. General Appearance: Comfortable, not in acute distress HEENT:Bilateral normal eye movements, normal oral cavity Neck: No JVD noted Cardiac: S1, S2, no murmurs, regular rhythm, normal rate, Lungs: No wheezes, normal chest expansion. Abdomen: No tenderness, no distention, normal bowel sounds. Musculoskeletal: No signs of acute synovitis. Neurological: Alert and oriented x3, no focal neurological deficits grossly. Extremities: no lower extremity edema, no crackles, no JVP distention, warm extremities. Psychiatric: Appropriate, normal mood. Lab Results No 36 Hour Lab Data Assessment/Plan 74-year-old female with past medical history of coronary artery disease status post PCI, hypertension, dyslipidemia, end-stage renal disease on dialysis, peripheral vascular disease presented with the complaint of chest pain. ASSESSMENT # STEMI, anterior #History of coronary artery disease #Hypertension #Dyslipidemia #Peripheral vascular disease #End-stage renal disease on dialysis Plan Patient presented as acute STEMI presentation. On left heart cath, LAD was noted to be occluded, patient underwent PCI to LAD. Achieved YAMILET-3 flow. For dual antiplatelet therapy will be continued aspirin and Plavix. Will resume statin at home medication. Will consult nephrology given history of end-stage renal disease. Close monitoring. Will follow-up with the labs. Problem List/Past Medical History Ongoing Abscess of external ear Acute sinusitis Aftercare following surgery ANDRIY (acute kidney injury) Anemia Angina Arm skin lesion, right Arthritis Asthma At risk for falls B12 deficiency Back pain Callaway's esophagus Bilateral leg cramps CAD (coronary artery disease) CAD (coronary artery disease) Cellulitis Cerebrovascular accident (CVA) of uncertain pathology Chronic anticoagulation Chronic constipation Chronic low back pain CKD (chronic kidney disease) requiring chronic dialysis Community acquired pneumonia Diverticulosis Draining postoperative wound Elevated ferritin Elevated sed rate Empty sella Fall at home Generalized weakness GERD (gastroesophageal reflux disease) Glasses H/O adrenal insufficiency Has Numbness Head injury Hematoma of leg History of left heart catheterization Hypercalcemia Hypercholesterolemia Hypertension Hypokalemia Hypotension Hypothyroidism Infected skin tear Itching of skin Laceration of face Left lower lobe pneumonia Leg pain Lower extremity weakness Lumbar herniated disc MRSA (methicillin resistant Staphylococcus aureus) Multiple wounds of skin MVP (mitral valve prolapse) Myalgia Neuropathy involving both lower extremities Osteoporosis Osteoporosis Peripheral edema Peripheral vascular disease PTCA - Percutaneous transluminal coronary angioplasty Purpura PVD (peripheral vascular disease) Renal failure Rheumatoid arthritis Seizure disorder Severe anemia Shortness of breath Skin lesion Skin tear of lower leg without complication Skin tear of right lower leg without complication SOBOE (shortness of breath on exertion) Spinal stenosis Status post arterial stent Subacute confusional state of cerebrovascular origin Tear of skin of multiple sites of left lower extremity Unsteady gait Vitamin D deficiency Weight gain Well adult exam Historical Anemia Colon polyps HTN (hypertension) NV (myocardial infarction) Pneumonia Procedure/Surgical History Fistula: 08/06/22 Echocardiogram: 02/27/22 Echocardiogram: 04/24/21 Echocardiogram: 03/15/20 Ankle brachial pressure index: 01/24/20 Echocardiogram: 02/14/18 Echocardiogram: 03/08/17 BRANDO - Arterial pressure index: 11/21/15 Cardiac catheterization: 2014 Bunionectomy: 08/31/14 Cardiac catheterization: 2013 Foot: 06/02/13 MUGA scan: 08/02/12 Fusion of lumbar spine: 08/05/10 Carpal tunnel release: 1994 Hysterectomy: 1979 Discectomy History of hemiarthroplasty of right hip Arthroplasty of right shoulder Coronary artery stent Esophagogastroduodenoscopy Lumpectomy of breast Medications Home Medications (21) Active acetaminophen-hydrocodone 325 mg-5 mg oral tablet 1 tab(s), Oral, BID albuterol 2.5 mg/3 mL (0.083%) inhalation solution 2.5 mg = 3 mL, PRN, Inhalation, q6h furosemide 40 mg oral tablet 40 mg = 1 tab(s), Oral, qDay hydrOXYzine hydrochloride 25 mg oral tablet 25 mg = 1 tab(s), PRN, Oral, QID levETIRAcetam 500 mg oral tablet 500 mg = 1 tab(s), Oral, BID levothyroxine 50 mcg (0.05 mg) oral tablet 50 mcg = 1 tab(s), Oral, qDay Linzess 290 mcg oral capsule 290 mcg = 1 cap(s), Oral, qDay melatonin 30 mg, Oral, qHS metoprolol succinate 25 mg oral TABLET extended release 25 mg = 1 tab(s), Oral, qDay midodrine 10 mg oral tablet 10 mg = 1 tab(s) MiraLax oral powder for reconstitution See Instructions Nitrostat 0.4 mg sublingual tablet 0.4 mg = 1 tab(s), PRN, Sublingual, q5min omeprazole 40 mg oral delayed release capsule 40 mg = 1 cap(s), Oral, BID Plavix 75 mg oral tablet 75 mg = 1 tab(s), Oral, qDay potassium chloride 20 mEq oral tablet, extended release 40 mEq = 2 tab(s), Oral, Sun/Tues/Thurs/Sat Probiotic 1tab, Oral, qDay Ranexa 500 mg oral tablet, extended release 500 mg = 1 tab(s), Oral, BID rosuvastatin 40 mg oral tablet 40 mg = 1 tab(s), Oral, Daily sevelamer carbonate 800 mg oral tablet 800 mg = 1 tab(s), Oral, TID Singulair 10 mg oral tablet 10 mg = 1 tab(s), Oral, qPM Zofran 4 mg oral tablet 4 mg = 1 tab(s), PRN, Oral, q6h Allergies Macrodantin (Moderate) HIVES Welchol Unsure Zaroxolyn Unsure colesevelam Unknown metOLazone Unknown nitrofurantoin Unknown pravastatin liver simvastatin Liver traMADol GI upset Social History Alcohol - Denies Alcohol Use, 06/05/2017 Use: Never., 03/03/2019 Home/Environment Domestic Concerns: None. Living situation: Home/Independent. 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 Current Home Treatments Nebulizer treatments. Professional Skilled Services or Special Community Resources [facility]. Spouse Name: Fausto. Marital Status: ., 2022 Nutrition/Health Type of diet: Regular. Appetite Good. Eating Difficulties None. Enteral Feedings No. TPN Feedings No. Skin Breakdown No. Caffeine intake amount: 1 serving of tea/day., 11/07/2020 Substance Abuse - Denies Substance Abuse, 06/05/2017 Use: Never., 03/03/2019 Tobacco Nicotine Use: Former smoker, quit more than 30 days ago. Type: Cigarettes. Number of years: 11. Stopped at age: 48 Years., 02/28/2025 Family History Asthma: Negative: Mother, Father, Sister, Brother, Daughter and Son. Cancer: Mother, Father and Son.Negative: Sister and Brother. Congestive cardiac failure: Father. Coronary artery disease: Mother. Diabetes: Son. Diabetes mellitus: Brother.Negative: Mother, Father, Sister, Daughter and Son. HIV: Negative: Mother, Father, Sister, Brother, Daughter and Son. HTN - Hypertension: Father.Negative: Mother, Sister, Brother, Daughter and Son. Heart disease: Father.Negative: Mother, Sister, Brother, Daughter and Son. Hepatitis: Negative: Mother, Father, Sister, Brother, Daughter and Son. Hyperchloremia: Father.Negative: Mother, Sister, Brother, Daughter and Son. NV - myocardial infarction: Mother (Dx at 50). Mental illness: Negative: Mother, Father, Sister, Brother, Daughter and Son. Seizure: Negative: Mother, Father, Sister, Brother, Daughter and Son. Stroke: Negative: Mother, Father, Sister, Brother, Daughter and Son. TB - Tuberculosis: Negative: Mother, Father, Sister, Brother, Daughter and Son. Health Status Family Member(s) Immunizations pneumococcal 13-valent conjugate vaccine: 0 unknown unit (03/04/20) SARS-CoV-2 (COVID-19) Ad26 vaccine: 0 unknown unit (02/11/21) tetanus-diphtheria toxoidsMUL.ORD![id number]: 0 unknown unit (03/07/11) tetanus/diphtheria/pertussMUL.ORD![id number]: 0.5 unknown unit (03/16/23) tetanus/diphtheria/pertussMUL.ORD!f53822: 0.5 unknown unit (01/19/22) zoster vaccine live: 0 unknown unit (03/04/20) zoster vaccine, inactivated: 0 unknown unit (06/28/20) Code Status No qualifying data available. Digitally Signed by RC MACIAS MD on 04/04/2025 11:25 AM [id number] Discharge instructions Follow Up Care 04/04/2025 10:22:07 With:[facility] Address: When: Unknown Comments:Please call N report prior to DC. [phone].Room [address] [place] [address] With:Mickey Peña/W/[place] Chair time 6:45 AM, first appt is on Wednesday04/18/25. Please arrive at 6:15 for first appt. Address:Unknown When:04/18/2025 06:15:00 With:BELL MAHER MD Address: [address] [place] [address]- When: Unknown Comments:PLEASE CALL THIS OFFICE TO SCHEDULE A HOSPITAL FOLLOW UP APPOINTMENT. With:LUAN DANIEL APRN-EQUITY RESEARCH ANALYST Address: [address] [place] [address] [address] [facility] [place] [address]- [phone] When:05/15/2025 10:00:00 With:[facility] Address:Unknown When: Unknown Comments:Provider will contact you after discharge to schedule home nursing and therapy visits. Please call [phone] if you have questions related to home healthcare. . With:[facility] Address: [address] [place] [id number]- When: Unknown Comments:Cardiac rehabilitation is a vital part of your recovery and long-term heart health following your hospital stay. It is a medically supervised exercise and education program designed to improve your physical fitness, manage heart- related risk factors, and support emotional well-being. A cardiac rehab food service team member will contact you soon to schedule your follow-up appointment. If you have any questions please call [phone]. [facility] 08-13-2025 History and physical note Date of Service 04/04/2025 Chief Complaint Chest pain STEMI History of Present Illness 74-year-old female with past medical history of coronary artery disease status post PCI, hypertension, dyslipidemia, end-stage renal disease on dialysis, peripheral vascular disease presented with the complaint of chest pain. Patient was undergoing her routine scheduled dialysis session after that she started having central chest pain. It was 10/10 intensity, central, radiating to her left arm and jaw. For further evaluation patient had a EKG done that showed ST elevation in the anterior leads. Patient was transferred to [facility] for further management. Review of Systems Reviewed and negative except mentioned in HPI Physical Exam Vitals and Measurements No qualifying data available. General Appearance: Comfortable, not in acute distress HEENT:Bilateral normal eye movements, normal oral cavity Neck: No JVD noted Cardiac: S1, S2, no murmurs, regular rhythm, normal rate, Lungs: No wheezes, normal chest expansion. Abdomen: No tenderness, no distention, normal bowel sounds. Musculoskeletal: No signs of acute synovitis. Neurological: Alert and oriented x3, no focal neurological deficits grossly. Extremities: no lower extremity edema, no crackles, no JVP distention, warm extremities. Psychiatric: Appropriate, normal mood. Lab Results No 36 Hour Lab Data Assessment/Plan 74-year-old female with past medical history of coronary artery disease status post PCI, hypertension, dyslipidemia, end-stage renal disease on dialysis, peripheral vascular disease presented with the complaint of chest pain. ASSESSMENT # STEMI, anterior #History of coronary artery disease #Hypertension #Dyslipidemia #Peripheral vascular disease #End-stage renal disease on dialysis Plan Patient presented as acute STEMI presentation. On left heart cath, LAD was noted to be occluded, patient underwent PCI to LAD. Achieved YAMILET-3 flow. For dual antiplatelet therapy will be continued aspirin and Plavix. Will resume statin at home medication. Will consult nephrology given history of end-stage renal disease. Close monitoring. Will follow-up with the labs. Problem List/Past Medical History Ongoing Abscess of external ear Acute sinusitis Aftercare following surgery ANDRIY (acute kidney injury) Anemia Angina Arm skin lesion, right Arthritis Asthma At risk for falls B12 deficiency Back pain Callaway's esophagus Bilateral leg cramps CAD (coronary artery disease) CAD (coronary artery disease) Cellulitis Cerebrovascular accident (CVA) of uncertain pathology Chronic anticoagulation Chronic constipation Chronic low back pain CKD (chronic kidney disease) requiring chronic dialysis Community acquired pneumonia Diverticulosis Draining postoperative wound Elevated ferritin Elevated sed rate Empty sella Fall at home Generalized weakness GERD (gastroesophageal reflux disease) Glasses H/O adrenal insufficiency Has Numbness Head injury Hematoma of leg History of left heart catheterization Hypercalcemia Hypercholesterolemia Hypertension Hypokalemia Hypotension Hypothyroidism Infected skin tear Itching of skin Laceration of face Left lower lobe pneumonia Leg pain Lower extremity weakness Lumbar herniated disc MRSA (methicillin resistant Staphylococcus aureus) Multiple wounds of skin MVP (mitral valve prolapse) Myalgia Neuropathy involving both lower extremities Osteoporosis Osteoporosis Peripheral edema Peripheral vascular disease PTCA - Percutaneous transluminal coronary angioplasty Purpura PVD (peripheral vascular disease) Renal failure Rheumatoid arthritis Seizure disorder Severe anemia Shortness of breath Skin lesion Skin tear of lower leg without complication Skin tear of right lower leg without complication SOBOE (shortness of breath on exertion) Spinal stenosis Status post arterial stent Subacute confusional state of cerebrovascular origin Tear of skin of multiple sites of left lower extremity Unsteady gait Vitamin D deficiency Weight gain Well adult exam Historical Anemia Colon polyps HTN (hypertension) NV (myocardial infarction) Pneumonia Procedure/Surgical History Fistula: 08/06/22 Echocardiogram: 02/27/22 Echocardiogram: 04/24/21 Echocardiogram: 03/15/20 Ankle brachial pressure index: 01/24/20 Echocardiogram: 02/14/18 Echocardiogram: 03/08/17 BRANDO - Arterial pressure index: 11/21/15 Cardiac catheterization: 2014 Bunionectomy: 08/31/14 Cardiac catheterization: 2013 Foot: 06/02/13 MUGA scan: 08/02/12 Fusion of lumbar spine: 08/05/10 Carpal tunnel release: 1994 Hysterectomy: 1978 Discectomy History of hemiarthroplasty of right hip Arthroplasty of right shoulder Coronary artery stent Esophagogastroduodenoscopy Lumpectomy of breast Medications Home Medications (21) Active acetaminophen-hydrocodone 325 mg-5 mg oral tablet 1 tab(s), Oral, BID albuterol 2.5 mg/3 mL (0.083%) inhalation solution 2.5 mg = 3 mL, PRN, Inhalation, q6h furosemide 40 mg oral tablet 40 mg = 1 tab(s), Oral, qDay hydrOXYzine hydrochloride 25 mg oral tablet 25 mg = 1 tab(s), PRN, Oral, QID levETIRAcetam 500 mg oral tablet 500 mg = 1 tab(s), Oral, BID levothyroxine 50 mcg (0.05 mg) oral tablet 50 mcg = 1 tab(s), Oral, qDay Linzess 290 mcg oral capsule 290 mcg = 1 cap(s), Oral, qDay melatonin 30 mg, Oral, qHS metoprolol succinate 25 mg oral TABLET extended release 25 mg = 1 tab(s), Oral, qDay midodrine 10 mg oral tablet 10 mg = 1 tab(s) MiraLax oral powder for reconstitution See Instructions Nitrostat 0.4 mg sublingual tablet 0.4 mg = 1 tab(s), PRN, Sublingual, q5min omeprazole 40 mg oral delayed release capsule 40 mg = 1 cap(s), Oral, BID Plavix 75 mg oral tablet 75 mg = 1 tab(s), Oral, qDay potassium chloride 20 mEq oral tablet, extended release 40 mEq = 2 tab(s), Oral, Sun/Tues/Thurs/Sat Probiotic 1tab, Oral, qDay Ranexa 500 mg oral tablet, extended release 500 mg = 1 tab(s), Oral, BID rosuvastatin 40 mg oral tablet 40 mg = 1 tab(s), Oral, Daily sevelamer carbonate 800 mg oral tablet 800 mg = 1 tab(s), Oral, TID Singulair 10 mg oral tablet 10 mg = 1 tab(s), Oral, qPM Zofran 4 mg oral tablet 4 mg = 1 tab(s), PRN, Oral, q6h Allergies Macrodantin (Moderate) HIVES Welchol Unsure Zaroxolyn Unsure colesevelam Unknown metOLazone Unknown nitrofurantoin Unknown pravastatin liver simvastatin Liver traMADol GI upset Social History Alcohol - Denies Alcohol Use, 06/05/2017 Use: Never., 03/03/2019 Home/Environment Domestic Concerns: None. Living situation: Home/Independent. 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 Current Home Treatments Nebulizer treatments. Professional Skilled Services or Special Community Resources [facility]. Spouse Name: Fausto. Marital Status: ., 2022 Nutrition/Health Type of diet: Regular. Appetite Good. Eating Difficulties None. Enteral Feedings No. TPN Feedings No. Skin Breakdown No. Caffeine intake amount: 1 serving of tea/day., 11/07/2020 Substance Abuse - Denies Substance Abuse, 06/05/2017 Use: Never., 03/03/2019 Tobacco Nicotine Use: Former smoker, quit more than 30 days ago. Type: Cigarettes. Number of years: 11. Stopped at age: 48 Years., 02/28/2025 Family History Asthma: Negative: Mother, Father, Sister, Brother, Daughter and Son. Cancer: Mother, Father and Son.Negative: Sister and Brother. Congestive cardiac failure: Father. Coronary artery disease: Mother. Diabetes: Son. Diabetes mellitus: Brother.Negative: Mother, Father, Sister, Daughter and Son. HIV: Negative: Mother, Father, Sister, Brother, Daughter and Son. HTN - Hypertension: Father.Negative: Mother, Sister, Brother, Daughter and Son. Heart disease: Father.Negative: Mother, Sister, Brother, Daughter and Son. Hepatitis: Negative: Mother, Father, Sister, Brother, Daughter and Son. Hyperchloremia: Father.Negative: Mother, Sister, Brother, Daughter and Son. NV - myocardial infarction: Mother (Dx at 50). Mental illness: Negative: Mother, Father, Sister, Brother, Daughter and Son. Seizure: Negative: Mother, Father, Sister, Brother, Daughter and Son. Stroke: Negative: Mother, Father, Sister, Brother, Daughter and Son. TB - Tuberculosis: Negative: Mother, Father, Sister, Brother, Daughter and Son. Health Status Family Member(s) Immunizations pneumococcal 13-valent conjugate vaccine: 0 unknown unit (03/04/20) SARS-CoV-2 (COVID-19) Ad26 vaccine: 0 unknown unit (02/11/21) tetanus-diphtheria toxoidsMUL.ORD!w00556: 0 unknown unit (03/07/11) tetanus/diphtheria/pertussMUL.ORD!k24680: 0.5 unknown unit (03/16/23) tetanus/diphtheria/pertussMUL.ORD!y84547: 0.5 unknown unit (01/19/22) zoster vaccine live: 0 unknown unit (03/04/20) zoster vaccine, inactivated: 0 unknown unit (06/28/20) Code Status No qualifying data available. Digitally Signed by RC MACIAS MD on 04/04/2025 11:25 AM [id number] Note* Exam Date Time Procedure Performing Provider Status 03/07/25 11:45 AM MRI Brain w/o Contrast MG HART MD; Auth (Verified) [id number] ORIGINAL EXAMINATION: MRI OF THE BRAIN WITHOUT CONTRAST 03/07/2025 11:46 am TECHNIQUE: Multiplanar multisequence MRI of the brain was performed without the administration of intravenous contrast. COMPARISON: MRI brain 01/11/2020. HISTORY: ORDERING SYSTEM PROVIDED HISTORY: Reason for Exam: Subacute CVA FINDINGS: INTRACRANIAL STRUCTURES/VENTRICLES: There is a 3 cm area of mildly restricted diffusion in the right frontal lobe. There is a 5 mm oval area of restricted diffusion in the inferior left cerebellum. There is no evidence of hemorrhage. The ventricles and sulci are of normal size configuration. Scattered small foci increased FLAIR signal are present in the periventricular white matter bilaterally. Prominent perivascular spaces are noted in the basal ganglia. Partially empty sella turcica. ORBITS: The visualized portion of the orbits demonstrate no acute abnormality. SINUSES: The visualized paranasal sinuses and mastoid air cells demonstrate no acute abnormality. BONES/SOFT TISSUES: The bone marrow signal intensity appears normal. The soft tissues demonstrate no acute abnormality. IMPRESSION: Findings consistent with subacute infarct in the right frontal lobe and punctate infarct in the inferior left cerebellum. Recommend continued follow-up to exclude active lesions. Interpreted by: Mg Hart Preliminary Report By: Mg Hart Electronically signed By Mg Hart Dictated Date: 03/07/2025 11:58:40 AM Prelim Date: 03/07/2025 12:03:35 PM Sign Date: 03/07/2025 12:03:35 PM Ordering Provider: [facility]07-02-2025 NoteHNO ID: [id number] Author: RAKAN ROBERTS RN Service: Nursing Author Type: Registered Nurse Type: Progress Notes Filed: 02/21/2025 17:11 Note Text: Removed IV and explained discharge information to the pt. Answered any questions the pt had to the best of my ability at this time. Pt is being discharged home via WC and private vehicle at this time.[facility]07-02-2025 NoteHNO ID: [id number] Author: TRENA WEINSTEIN MD Service: Hospital Medicine Author Type: Physician Type: Progress Notes Filed: 02/21/2025 16:53 Note Text: Documentation Query Please clarify the diagnosis associated with the clinical indicators: Delirium This document will become part of the patient's medical record.[facility]07-02-2025 NoteHNO ID: [id number] Author: TRENA WEINSTEIN MD Service: Hospital Medicine Author Type: Physician Type: Progress Notes Filed: 02/21/2025 16:53 Note Text: Documentation Query Please clarify the acuity of HFpEF: Chronic This document will become part of the patient's medical record.[facility]07-02-2025 NoteHNO ID: [id number] Author: RAKAN ROBERTS RN Service: Nursing Author Type: Registered Nurse Type: Progress Notes Filed: 02/21/2025 13:42 Note Text: Pt returned to 4M, call light within reach. Pt is oriented to room at this time. [facility]07-02-2025 NoteHNO ID: [id number] Author: MELISSA CURRIE MD Service: Nephrology Author Type: Physician Type: Progress Notes Filed: 02/21/2025 11:00 Note Text: INPATIENT HEMODIALYSIS PROGRESS NOTE SERVICE DATE: 02/21/2025 SERVICE TIME: 10 am Subjective Patient seen on dialysis, single evaluation. Orders confirmed. Details per documentation in [facility] Dialysis EMR. Patient tolerating treatment well. System running well, no clotting events. Access without issues. Goal UF 2-3 L, profile 2, midodrine Objective Labs: Recent Labs 02/21/25 0538 02/20/25 0852 CREAT 5.51* 4.46* BUN 38* 24 NA 133* 137 K 3.9 4.4 CHLOR 98 97* CO2 24 26 ANION 11 14 GLUC 85 90 CA 9.1 9.5 MG -- 2.2 WBC 6.99 7.90 HB 8.6* 9.5* HCT 26.1* 29.6* PLT 180 186 Impression/Recommendations 1. ESRD on MWF 2. Mechanical fall 3. HFpEF 4. Chronic lymphedema of lower extremities 5. Hypervolemic hyponatremia - resolved 6. Anemia of CKD Complete IHD as ordered. Continue [employer] support Wed-Wed-Wed. No change to IHD Rx. Follow URR, goal 70%. Continue UF as tolerated following hemodynamics. Next treatment Wednesday if still here Medication and Non-Pharmacologic VTE Prophylaxis/Anticoagulants Anticoagulant AND Antiplatelet Medications (From admission, onward) Start Dose Route Frequency Last Action Ordered Stop 02/17/25 1630 aspirin, enteric coated 81 mg tab(s) 81 mg PO DAILY Given, 02/21 83602/17/25 1618 -- 02/17/25 1630 clopidogrel 75 mg tab(s) (PLAVIX) 75 mg PO DAILY Given, 02/21 83602/17/25 1618 -- VTE Prophylaxis: VTE prophylaxis appropriate SIGNATURE: Melissa Currie MD PATIENT NAME: Marcos Shelton DATE: February 21, 2025 TIME: 11:00 [facility]07-02-2025 NoteHNO ID: [id number] Author: MICHAEL DIAL RN Service: Care Management Author Type: Registered Nurse Type: Care Mgt Progress Note Filed: 02/21/2025 12:26 Note Text: CARE MANAGEMENT PROGRESS NOTE SERVICE DATE: 02/21/2025 SERVICE TIME: 0850 LOS: 4 days IMM Follow Up Copy Given: Yes Copy given to:: Patient Method: In Person Chart reviewed. Patient admitted s/p fall at home. Has left leg wound prior to admission and is receiving bactrim and cipro. Noted to have elevated bun and creat, is an established HD patient MWF. Echo completed, therapy eval recommending snf, per patient and she is at her baseline, she will be returning home with her , he will be providing transportation. CM to follow for safe d.c planning. SIGNATURE: Michael Dial RN PATIENT NAME: Marcos Shelton DATE: February 21, 2025 [facility]: 12:23 [facility] NoteHNO ID: [id number] Author: RAKAN ROBERTS RN Service: Nursing Author Type: Registered Nurse Type: Progress Notes Filed: 02/21/2025 08:57 Note Text: Pt off unit at this time for dialysis.[facility]07-01-2025 NoteHNO ID: [id number] Author: MELISSA CURRIE MD Service: Nephrology Author Type: Physician Type: Progress Notes Filed: 02/20/2025 15:17 Note Text: CONSULT PROGRESS NOTE NEPHROLOGY SERVICE SERVICE DATE: 02/20/2025 SERVICE TIME: 3:15 PM Subjective INTERVAL HISTORY: stable. Successful HD yesterday. MEDICATIONS: Current Facility-Administered Medications Medication Dose Route Frequency ranolazine ER 500 mg tab(s) (RANEXA) 500 mg ORAL BID levETIRAcetam 500 mg tab(s) (KEPPRA) 500 mg ORAL BID hydrOXYzine HCl 25 mg tab(s) (ATARAX) 25 mg ORAL q 6 H PRN rosuvastatin 40 mg tab(s) (CRESTOR) 40 mg ORAL DAILY montelukast 10 mg tab(s) (SINGULAIR) 10 mg ORAL DAILY furosemide 40 mg tab(s) (LASIX) 40 mg ORAL MO-WE-FR aspirin, enteric coated 81 mg tab(s) 81 mg ORAL DAILY clopidogrel 75 mg tab(s) (PLAVIX) 75 mg ORAL DAILY pantoprazole DR 40 mg tab(s) (PROTONIX) 40 mg ORAL DAILY nitroglycerin sublingual 0.4 mg tab(s) (NITROQUICK) 0.4 mg SUBLINGUAL q 5 MIN PRN NaCl 0.9% iv flush bag 20 mL INTRAVENOUS PRN sodium chloride 0.9 % (flush) 2-10 mL (BD POSIFLUSH) 2-10 mL INTRAVENOUS DIRECTED PRN And perflutren lipid microspheres 1.1 mg/mL 1.3 mL injection (DEFINITY) 1.3 mL INTRAVENOUS DIRECTED PRN albuterol HFA 90 mcg/actuation 2 puff (PROVENTIL HFA, VENTOLIN HFA) 2 puff INHALATION q 4 H PRN meclizine 25 mg tab(s) (ANTIVERT) 25 mg ORAL BID PRN HYDROcodone 5 mg - acetaminophen 325 mg tablet (NORCO) 1 tablet ORAL q 6 H PRN melatonin 9 mg tab(s) 9 mg ORAL AT BEDTIME PRN ondansetron (PF) 4 mg injection (ZOFRAN) 4 mg INTRAVENOUS q 6 H PRN levothyroxine 50 mcg tab(s) (SYNTHROID) 50 mcg ORAL DAILY (6 AM) midodrine 10 mg tab(s) (PROAMATINE) 10 mg ORAL PRN Objective PHYSICAL EXAM: BP 119/56 Pulse 78 Temp 36.8 ?C (98.3 ?F) (Oral) Resp 16 Ht 162.6 cm (5' 4) Wt 83.7 kg (184 lb 8.4 oz) SpO2 99% BMI 31.67 kg/m? No intake or output data in the 24 hours ending 02/20/25 1515 Intermittently confused Lungs are clear anteriorly bilaterally Cardiovascular with normal S1-S2 without friction rub Abdomen soft and nontender Lower extremities with chronic lymphedema DATA: Diagnostic tests reviewed for today's visit: Most recent labs and imaging results. Recent Labs 02/20/25 0852 02/18/25 0528 NA 137 133* K 4.4 5.1 CHLOR 97* 96* CO2 26 24 BUN 24 33* CREAT 4.46* 5.35* GLUC 90 91 ANION 14 13 CA 9.5 9.5 MG 2.2 2.2 Recent Labs 02/20/25 0852 02/18/25 0746 WBC 7.90 8.69 HB 9.5* 8.7* HCT 29.6* 27.4* PLT 186 178 Recent Labs 02/20/25 0852 HB 9.5* Recent Labs 02/20/25 0852 CA 9.5 No results for input(s): BUNRAT, BUNPR, BUNPO in the last 168 hours. Recent Labs 02/19/25 0808 HEPSABQ Negative Assessment/Plan 1. ESRD on MWF 2. Mechanical fall 3. HFpEF 4. Chronic lymphedema of lower extremities 5. Hypervolemic hyponatremia - resolved 6. Anemia of CKD PLAN 1. Plan for HD tomorrow. Check AM labs to guide therapy 2. PT/OT 3. Aranesp 100 mcg subcu x1 for anemia Thanks SIGNATURE: Melissa Currie MD PATIENT NAME: Marcos Shelton DATE: February 20, 2025 TIME: 3:15 PM[facility] NoteHNO ID: [id number] Author: TRENA WEINSTEIN MD Service: Hospital Medicine Author Type: Physician Type: Progress Notes Filed: 02/20/2025 10:59 Note Text: DEPARTMENT OF HOSPITAL MEDICINE PROGRESS NOTE SERVICE DATE: 02/20/2025 SERVICE TIME: 10:57 AM Hospital Medicine/Primary Attending: Trena Weinstein MD PRIMARY CARE PHYSICIAN: Bell Maher MD Readmission: Highest Readmission Risk Score: 9 Subjective Patient seen and examined at bedside this morning. No acute overnight events. Patient denies having any symptoms Current Facility-Administered Medications Medication Dose Route Frequency ranolazine ER 500 mg tab(s) (RANEXA) 500 mg ORAL BID levETIRAcetam 500 mg tab(s) (KEPPRA) 500 mg ORAL BID hydrOXYzine HCl 25 mg tab(s) (ATARAX) 25 mg ORAL q 6 H PRN rosuvastatin 40 mg tab(s) (CRESTOR) 40 mg ORAL DAILY montelukast 10 mg tab(s) (SINGULAIR) 10 mg ORAL DAILY furosemide 40 mg tab(s) (LASIX) 40 mg ORAL MO-WE- aspirin, enteric coated 81 mg tab(s) 81 mg ORAL DAILY clopidogrel 75 mg tab(s) (PLAVIX) 75 mg ORAL DAILY pantoprazole DR 40 mg tab(s) (PROTONIX) 40 mg ORAL DAILY nitroglycerin sublingual 0.4 mg tab(s) (NITROQUICK) 0.4 mg SUBLINGUAL q 5 MIN PRN NaCl 0.9% iv flush bag 20 mL INTRAVENOUS PRN sodium chloride 0.9 % (flush) 2-10 mL (BD POSIFLUSH) 2-10 mL INTRAVENOUS DIRECTED PRN And perflutren lipid microspheres 1.1 mg/mL 1.3 mL injection (DEFINITY) 1.3 mL INTRAVENOUS DIRECTED PRN albuterol HFA 90 mcg/actuation 2 puff (PROVENTIL HFA, VENTOLIN HFA) 2 puff INHALATION q 4 H PRN meclizine 25 mg tab(s) (ANTIVERT) 25 mg ORAL BID PRN HYDROcodone 5 mg - acetaminophen 325 mg tablet (NORCO) 1 tablet ORAL q 6 H PRN melatonin 9 mg tab(s) 9 mg ORAL AT BEDTIME PRN ondansetron (PF) 4 mg injection (ZOFRAN) 4 mg INTRAVENOUS q 6 H PRN levothyroxine 50 mcg tab(s) (SYNTHROID) 50 mcg ORAL DAILY (6 AM) midodrine 10 mg tab(s) (PROAMATINE) 10 mg ORAL PRN Objective PHYSICAL EXAM: BP 119/56 Pulse 78 Temp (Src) 98.3 (Oral) Resp 16 Ht 5' 4 (1.63m) Wt 184 lb 8.4 oz (83.7kg) SpO2 99% BMI 31.66 kg/(m2). Physical Exam Performed GENERAL: Alert, no distress, cooperative LUNGS: Lungs clear to auscultation, Good diaphragmatic excursion CARDIAC: Normal S1 and S2; no rubs, murmurs, or gallops ABDOMEN: Abdomen soft, non-tender, BS normal, No masses or organomegaly EXTREMITIES: Patient has left lower extremity wound covered in dressing NEURO: AAO x 3. Reflexes normal and symmetric. Sensation grossly intact, Cranial nerves II-XII intact Lines, Drains, and Airways Line Duration Peripheral 02/17/25 0800 External Facility Left Antecubital 20 Gauge 3 days DATA: Diagnostic tests reviewed for today's visit: Most recent labs Most recent imaging Most recent EKG Assessment/Plan Problem List Fall at home, initial encounter (POA: Yes) HOSPITAL COURSE: Marcos L [place] is a 74 year old female having a fall Principal Problem: Fall at home, initial encounter - 74-year-old female admitted after having a fall. - CT head showed subacute right frontal infarct new since 2021 - X-ray hip did not show any acute fractures - PT recommended going to SNF, pending placement Subacute stroke - Will continue home Plavix 75 Mg daily and aspirin 81 Mg daily and rosuvastatin 40 Mg daily - Carotid ultrasound showed patent arteries - Echo showed normal left ventricular systolic function with EF of 71% - Will recommend outpatient neurology follow-up Confusion-improved - Per nursing, patient was briefly confused this morning. She was AO x 3 on my assessment - UA without signs of UTI - Will monitor her symptoms CAD status post PCI - Will continue home Plavix 75 Mg daily and aspirin 81 Mg daily and rosuvastatin 40 Mg daily - Will continue home Ranexa 5 Mg twice daily and Lopressor 25 Mg daily ESRD - On HD MWF - Will consult nephrology COPD - Not in acute exacerbation Will continue home albuterol inhaler - Continue home montelukast 10 Mg daily PVD - Will continue home Plavix 75 Mg daily and aspirin 81 Mg daily and rosuvastatin 40 Mg daily Seizures - Will continue home Keppra 5 Mg twice daily Hypothyroidism - Continue home Synthroid 70 mcg daily GERD Will continue home Protonix 40 Mg daily Hypertension - Continue home Lopressor 25 Mg daily Hyperlipidemia Continue home Crestor 40 Mg daily CODE STATUS: Full code Diet: Renal High risk medications reviewed for toxicity? Yes Personally discussed plan with consultants? Yes Reviewed imaging/tests? Yes Anticipated Discharge Order Placed: Yes Disposition: SNF Diet: Orders Placed This Encounter DIET RENAL Standing Status: Standing Number of Occurrences: 1 Renal: 2400 MG K / 2400 MG NA VTE Prophylaxis: VTE prophylaxis appropriate Code Status: Code Status: Full Code Plan of care discussed with Provider, RN, Patient Disclaimer This dictation was created using voice recognition software. Phone (more content not included)...[facility]-30[facility]2025 NoteHNO ID: [id number] Author: MELISSA CURRIE MD Service: Nephrology Author Type: Physician Type: Progress Notes Filed: 02/19/2025 16:05 Note Text: INPATIENT HEMODIALYSIS PROGRESS NOTE SERVICE DATE: 02/19/2025 SERVICE TIME: 11 am Subjective Patient seen on dialysis, single evaluation. Orders confirmed. Details per documentation in [facility] Dialysis EMR. Patient tolerating treatment well. System running well, no clotting events. Access without issues. Goal UF 2-3 L on profile 2 and midodrine Objective Labs: Recent Labs 02/18/25 0746 02/18/25 0528 CREAT -- 5.35* BUN -- 33* NA -- 133* K -- 5.1 CHLOR -- 96* CO2 -- 24 ANION -- 13 GLUC -- 91 CA -- 9.5 MG -- 2.2 WBC 8.69 -- HB 8.7* -- HCT 27.4* -- PLT 178 -- Impression/Recommendations 1. ESRD on MWF 2. Mechanical fall 3. HFpEF 4. Chronic lymphedema of lower extremities 5. Hypervolemic hyponatremia Complete IHD as ordered. Continue [employer] support Wed-Wed-Wed. No change to IHD Rx. Follow URR, goal 70%. Continue UF as tolerated following hemodynamics. Next HD on Wednesday Medication and Non-Pharmacologic VTE Prophylaxis/Anticoagulants Anticoagulant AND Antiplatelet Medications (From admission, onward) Start Dose Route Frequency Last Action Ordered Stop 02/17/25 1630 aspirin, enteric coated 81 mg tab(s) 81 mg PO DAILY Given, 02/18 0956 02/17/25 1618 -- 02/17/25 1630 clopidogrel 75 mg tab(s) (PLAVIX) 75 mg PO DAILY Given, 02/19 0855 02/17/25 1618 -- VTE Prophylaxis: VTE prophylaxis appropriate SIGNATURE: Melissa Currie MD PATIENT NAME: Marcos Shelton DATE: February 19, 2025 TIME: 4:05 PM[facility] NoteHNO ID: [id number] Author: TRENA WEINSTEIN MD Service: Hospital Medicine Author Type: Physician Type: Progress Notes Filed: 02/19/2025 15:04 Note Text: DEPARTMENT OF HOSPITAL MEDICINE PROGRESS NOTE SERVICE DATE: 02/19/2025 SERVICE TIME: 3:03 PM Hospital Medicine/Primary Attending: Trena Weinstein MD PRIMARY CARE PHYSICIAN: Bell Maher MD Readmission: Highest Readmission Risk Score: 9 Subjective Patient seen and examined at bedside this morning. No acute overnight events. Patient is hallucinating Current Facility-Administered Medications Medication Dose Route Frequency ranolazine ER 500 mg tab(s) (RANEXA) 500 mg ORAL BID levETIRAcetam 500 mg tab(s) (KEPPRA) 500 mg ORAL BID hydrOXYzine HCl 25 mg tab(s) (ATARAX) 25 mg ORAL q 6 H PRN rosuvastatin 40 mg tab(s) (CRESTOR) 40 mg ORAL DAILY montelukast 10 mg tab(s) (SINGULAIR) 10 mg ORAL DAILY furosemide 40 mg tab(s) (LASIX) 40 mg ORAL MO-WE- aspirin, enteric coated 81 mg tab(s) 81 mg ORAL DAILY clopidogrel 75 mg tab(s) (PLAVIX) 75 mg ORAL DAILY pantoprazole DR 40 mg tab(s) (PROTONIX) 40 mg ORAL DAILY nitroglycerin sublingual 0.4 mg tab(s) (NITROQUICK) 0.4 mg SUBLINGUAL q 5 MIN PRN NaCl 0.9% iv flush bag 20 mL INTRAVENOUS PRN sodium chloride 0.9 % (flush) 2-10 mL (BD POSIFLUSH) 2-10 mL INTRAVENOUS DIRECTED PRN And perflutren lipid microspheres 1.1 mg/mL 1.3 mL injection (DEFINITY) 1.3 mL INTRAVENOUS DIRECTED PRN albuterol HFA 90 mcg/actuation 2 puff (PROVENTIL HFA, VENTOLIN HFA) 2 puff INHALATION q 4 H PRN meclizine 25 mg tab(s) (ANTIVERT) 25 mg ORAL BID PRN HYDROcodone 5 mg - acetaminophen 325 mg tablet (NORCO) 1 tablet ORAL q 6 H PRN melatonin 9 mg tab(s) 9 mg ORAL AT BEDTIME PRN ondansetron (PF) 4 mg injection (ZOFRAN) 4 mg INTRAVENOUS q 6 H PRN levothyroxine 50 mcg tab(s) (SYNTHROID) 50 mcg ORAL DAILY (6 AM) midodrine 10 mg tab(s) (PROAMATINE) 10 mg ORAL PRN Objective PHYSICAL EXAM: BP 111/59 Pulse 89 Temp (Src) 98.2 (Temporal) Resp 24 Ht 5' 4 (1.63m) Wt 184 lb 8.4 oz (83.7kg) SpO2 97% BMI 31.66 kg/(m2). O2 Therapy: Room Air Physical Exam Performed GENERAL: Alert, no distress, cooperative LUNGS: Lungs clear to auscultation, Good diaphragmatic excursion CARDIAC: Normal S1 and S2; no rubs, murmurs, or gallops ABDOMEN: Abdomen soft, non-tender, BS normal, No masses or organomegaly EXTREMITIES: Patient has left lower extremity wound covered in dressing NEURO: AAO x 3. Reflexes normal and symmetric. Sensation grossly intact, Cranial nerves II-XII intact Lines, Drains, and Airways Line Duration Peripheral 02/17/25 0800 External Facility Left Antecubital 20 Gauge 2 days DATA: Diagnostic tests reviewed for today's visit: Most recent labs Most recent imaging Most recent EKG Assessment/Plan Problem List Fall at home, initial encounter (POA: Yes) HOSPITAL COURSE: Marcos Shelton is a 74 year old female having a fall Principal Problem: Fall at home, initial encounter - 74-year-old female admitted after having a fall. - CT head showed subacute right frontal infarct new since 2021 - X-ray hip did not show any acute fractures - PT recommended going to SNF, pending placement Subacute stroke - Will continue home Plavix 75 Mg daily and aspirin 81 Mg daily and rosuvastatin 40 Mg daily - Carotid ultrasound showed patent arteries - Echo is pending - Will recommend outpatient neurology follow-up Confusion-improved - Per nursing, patient was briefly confused this morning. She was AO x 3 on my assessment - UA without signs of UTI - Will monitor her symptoms CAD status post PCI - Will continue home Plavix 75 Mg daily and aspirin 81 Mg daily and rosuvastatin 40 Mg daily - Will continue home Ranexa 5 Mg twice daily and Lopressor 25 Mg daily ESRD - On HD MWF - Will consult nephrology COPD - Not in acute exacerbation Will continue home albuterol inhaler - Continue home montelukast 10 Mg daily PVD - Will continue home Plavix 75 Mg daily and aspirin 81 Mg daily and rosuvastatin 40 Mg daily Seizures - Will continue home Keppra 5 Mg twice daily Hypothyroidism - Continue home Synthroid 70 mcg daily GERD Will continue home Protonix 40 Mg daily Hypertension - Continue home Lopressor 25 Mg daily Hyperlipidemia Continue home Crestor 40 Mg daily CODE STATUS: Full code Diet: Renal High risk medications reviewed for toxicity? Yes Personally discussed plan with consultants? Yes Reviewed imaging/tests? Yes Anticipated Discharge Order Placed: Yes Disposition: SNF Diet: Orders Placed This Encounter DIET RENAL Standing Status: Standing Number of Occurrences: 1 Renal: 2400 MG K / 2400 MG NA VTE Prophylaxis: VTE prophylaxis appropriate Code Status: Code Status: Full Code Plan of care discussed with Provider, RN, Patient Disclaimer This dictation was created using voice recognition software. Phonetic and/or minor grammatical error (more content not included)...[facility] 02-19-2025 NoteHNO ID: [id number] Author: OK DOLL RN Service: ? Author Type: Registered Nurse Type: Progress Notes Filed: 02/19/2025 14:28 Note Text: 1.3ML OF DEFINITY MIXED WITH 8.7ML OF NORMAL SALINE. 2 ML OF DEFINITY GIVEN FOR ECHOCARDIOGRAM TO ENHANCE IMAGES. NO REACTION NOTED.[facility] 02-19-2025 NoteHNO ID: [id number] Author: SUZANNA KESSLER RN Service: Care Management Author Type: Registered Nurse Type: Care Mgt Progress Note Filed: 02/19/2025 15:22 Note Text: CARE MANAGEMENT PROGRESS NOTE SERVICE DATE: 02/19/2025 SERVICE TIME: 2:26 PM LOS: 2 days Chart reviewed. Patient admitted s/p fall at home. Has left leg wound prior to admission and is receiving bactrim and cipro. Noted to have elevated bun and creat, is an established HD patient MWF. Echo to be done this date. Therapy eval recommending snf. From home with . Nursing reports confusion agitation, yelling over night and received PRN ativan. CM to follow for safe d.c planning. SIGNATURE: Suzanna Kessler RN PATIENT NAME: Marcos Shelton DATE: February 19, 2025 TIME: 2:26 PM[facility] NoteHNO ID: [id number] Author: NHI GARCIA RN Service: Care Management Author Type: Registered Nurse Type: Care Mgt Initial Assessment Filed: 02/19/2025 14:29 Note Text: CARE MANAGEMENT: ASSESSMENT AND DISCHARGE PLAN SERVICE DATE: February 19, 2025 SERVICE TIME: 5 PCP: Bell Maher MD Primary Contact: Extended Emergency Contact Information Primary Emergency Contact: FAUSTO SHELTON Address: [address] [place] [address] [address] Mobile Relation: Spouse Secondary Emergency Contact: Earnestine Hernandez Mobile Relation: Daughter Admission Status: Inpatient Insurance Provider: MEDICARE A AND B Discharge Planning requested by: Per Department Practice Potential Transition Plans Home Advance Directives Current Advance Directive: Health Care Power of Regional Sales Coordinator, Living Will In Chart: No Current Living Arrangements and Support Lives with: Spouse/significant other Type of Residence: Private Residence (House) Does the patient have to climb stairs at home?: No Support: Spouse/significant other How do you manage to accomplish the following: Needs Assistance: Bathe/Shower, Dress, Going to the bathroom, Medication Management Dependent: Ambulation, Meals/Meal Prep, Transportation to appointments/community Current Services/Equipment Current Post-Acute Service(s): DME Current DME Type: Wheelchair-electric, Shower seat Discharge Planning Patient Goal(s): Be able to go home, General wellness [place] of Choice Explained: Are you interested in bedside delivery of your medications? No Discharge Planning Participant(s): Spouse/significant other Patient/Family Comments: Caregiver Assessment: Caregiver is ready, willing and able to meet the patient's needs as recommended by the inter-professional team: Yes Name of Caregiver: Fausto Transport at Discharge: Transportation Arrangements: Car Needs Prior to Discharge: Needs Prior to Discharge: To Be Determined, OT/PT Evaluation Post-Acute Discharge Plan: Chart reviewed. Admitted s/p fall. Pending Echo. Spoke with pt's via phone. Pt is a dialysis pt at [facility] on MWF. Pt from home with , who helps pt with ADLs -states pt uses a scooter and does not ambulate. Pt also has a shower chair at home. Pt is current with PCP, Dr. Maher and saw last week. D/C plan is home with . CM to follow for needs. Intimate Partner Violence We have begun to talk to patients about safe and healthy relationships because it can have a large impact on your health. Do you feel safe around your partner or ex-partner?: Yes Food Insecurity Within the past 12 months, you worried that your food would run out before you got the money to buy more.: Never true Within the past 12 months, the food you bought just didn't last and you didn't have money to get more.: Never true Transportation Needs In the past 12 months, has lack of transportation kept you from medical appointments or from getting medications?: No In the past 12 months, has lack of transportation kept you from meetings, work, or from getting things needed for daily living?: No Housing Stability In the last 12 months, was there a time when you were not able to pay the mortgage or rent on time?: No At any time in the past 12 months, were you homeless or living in a mcc (including now)?: No Utilities In the past 12 months has the [place], oil, or water Sitrion threatened to shut off services in your home?: No Social Information Financial Resources: Retired SIGNATURE: Nhi Garcia RN PATIENT NAME: Marcos Shelton DATE: February 19, 2025 TIME: 2:25 [facility]06-30-2025 NoteHNO ID: [id number] Author: RODRIGO DING APRN.CNP Service: Wound Care Team Author Type: Nurse Practitioner Type: Plan of Care Filed: 02/19/2025 14:58 Note Text: Summary: Wound care Wound care was consulted to evaluate patient's left heel. She was in dialysis initially when I went to see her. She is now in the cardiac lab. Will attempt to follow-up with her tomorrow.[facility]-30-2025 NoteHNO ID: [id number] Author: ELSI PERALTA RN Service: ? Author Type: Registered Nurse Type: Nursing Progress Note Filed: 02/19/2025 12:06 Note Text: Pt. To dialysis via bed at this time.[facility]-29-2025 NoteHNO ID: [id number] Author: TRENA WEINSTEIN MD Service: Hospital Medicine Author Type: Physician Type: Progress Notes Filed: 02/18/2025 12:59 Note Text: DEPARTMENT OF HOSPITAL MEDICINE PROGRESS NOTE SERVICE DATE: 02/18/2025 SERVICE TIME: 12:57 PM Hospital Medicine/Primary Attending: Trena Weinstein MD PRIMARY CARE PHYSICIAN: Bell Maher MD Readmission: Highest Readmission Risk Score: 9 Subjective Patient seen and examined at bedside this morning. No acute overnight events. Nurse states that patient appears confused this morning and said she was seeing ants. Patient is AO x 3 upon my assessment Current Facility-Administered Medications Medication Dose Route Frequency ranolazine ER 500 mg tab(s) (RANEXA) 500 mg ORAL BID levETIRAcetam 500 mg tab(s) (KEPPRA) 500 mg ORAL BID hydrOXYzine HCl 25 mg tab(s) (ATARAX) 25 mg ORAL q 6 H PRN rosuvastatin 40 mg tab(s) (CRESTOR) 40 mg ORAL DAILY montelukast 10 mg tab(s) (SINGULAIR) 10 mg ORAL DAILY [START ON 02/19/2025] furosemide 40 mg tab(s) (LASIX) 40 mg ORAL MO-WE- aspirin, enteric coated 81 mg tab(s) 81 mg ORAL DAILY clopidogrel 75 mg tab(s) (PLAVIX) 75 mg ORAL DAILY pantoprazole DR 40 mg tab(s) (PROTONIX) 40 mg ORAL DAILY nitroglycerin sublingual 0.4 mg tab(s) (NITROQUICK) 0.4 mg SUBLINGUAL q 5 MIN PRN NaCl 0.9% iv flush bag 20 mL INTRAVENOUS PRN sodium chloride 0.9 % (flush) 2-10 mL (BD POSIFLUSH) 2-10 mL INTRAVENOUS DIRECTED PRN And perflutren lipid microspheres 1.1 mg/mL 1.3 mL injection (DEFINITY) 1.3 mL INTRAVENOUS DIRECTED PRN albuterol HFA 90 mcg/actuation 2 puff (PROVENTIL HFA, VENTOLIN HFA) 2 puff INHALATION q 4 H PRN meclizine 25 mg tab(s) (ANTIVERT) 25 mg ORAL BID PRN HYDROcodone 5 mg - acetaminophen 325 mg tablet (NORCO) 1 tablet ORAL q 6 H PRN melatonin 9 mg tab(s) 9 mg ORAL AT BEDTIME PRN ondansetron (PF) 4 mg injection (ZOFRAN) 4 mg INTRAVENOUS q 6 H PRN [START ON 02/19/2025] levothyroxine 50 mcg tab(s) (SYNTHROID) 50 mcg ORAL DAILY (6 AM) Objective PHYSICAL EXAM: BP 107/35 Pulse 70 Temp (Src) 97.6 (Oral) Resp 18 Ht 5' 4 (1.63m) Wt 177 lb 11.1 oz (80.6kg) SpO2 98% BMI 30.49 kg/(m2). Physical Exam Performed GENERAL: Alert, no distress, cooperative LUNGS: Lungs clear to auscultation, Good diaphragmatic excursion CARDIAC: Normal S1 and S2; no rubs, murmurs, or gallops ABDOMEN: Abdomen soft, non-tender, BS normal, No masses or organomegaly EXTREMITIES: Patient has left lower extremity wound covered in dressing NEURO: AAO x 3. Reflexes normal and symmetric. Sensation grossly intact, Cranial nerves II-XII intact Lines, Drains, and Airways Line Duration Peripheral 02/17/25 0800 External Facility Left Antecubital 20 Gauge 1 day DATA: Diagnostic tests reviewed for today's visit: Most recent labs Most recent imaging Most recent EKG Assessment/Plan Problem List Fall at home, initial encounter (POA: Yes) HOSPITAL COURSE: Marcos Shelton is a 74 year old female having a fall Principal Problem: Fall at home, initial encounter - 74-year-old female admitted after having a fall. - CT head showed subacute right frontal infarct new since 2021 - X-ray hip did not show any acute fractures - Pending PT OT Subacute stroke - Will continue home Plavix 75 Mg daily and aspirin 81 Mg daily and rosuvastatin 40 Mg daily - Pending echocardiogram and carotid ultrasound - Will recommend outpatient neurology follow-up Confusion - Per nursing, patient was briefly confused this morning. She was AO x 3 on my assessment - UA without signs of UTI - Will monitor her symptoms CAD status post PCI - Will continue home Plavix 75 Mg daily and aspirin 81 Mg daily and rosuvastatin 40 Mg daily - Will continue home Ranexa 5 Mg twice daily and Lopressor 25 Mg daily ESRD - On HD MWF - Will consult nephrology COPD - Not in acute exacerbation Will continue home albuterol inhaler - Continue home montelukast 10 Mg daily PVD - Will continue home Plavix 75 Mg daily and aspirin 81 Mg daily and rosuvastatin 40 Mg daily Seizures - Will continue home Keppra 5 Mg twice daily Hypothyroidism - Continue home Synthroid 70 mcg daily GERD Will continue home Protonix 40 Mg daily Hypertension - Continue home Lopressor 25 Mg daily Hyperlipidemia Continue home Crestor 40 Mg daily CODE STATUS: Full code Diet: Renal High risk medications reviewed for toxicity? Yes Personally discussed plan with consultants? Yes Reviewed imaging/tests? Yes Anticipated Discharge Order Placed: Yes Disposition: To be determined Diet: Orders Placed This Encounter DIET RENAL Standing Status: Standing Number of Occurrences: 1 Renal: 2400 MG K / 2400 MG NA VTE Prophylaxis: VTE prophylaxis appropriate Code Status: Code Status: Full Code Plan of care discussed with Provider, RN, Patient Disclaimer This dictation was created using voice recognition software. Phonetic and/or min (more content not included)...[facility]-27[facility]2025 Note. MICRO - Microbiology PROCEDURE: Culture Wound Aerobic with Gram Stain [*1] SOURCE: Wound (surface) BODY SITE: Leg L COLLECTED DATE/TIME: 02/14/2025 16:25 EDT RECEIVED DATE/TIME: 02/14/2025 21:29 EDT START DATE/TIME: 02/14/2025 21:29 EDT FREE TEXT SOURCE: FINAL REPORTS Final Report [] Verified Date/Time/Personnel: 02/16/2025 07:39 EDT No growth at 48 hours. PRELIMINARY REPORTS Preliminary Report [] Verified Date/Time/Personnel: 02/15/2025 11:50 EDT No growth to date STAINS GS [] Verified Date/Time/Personnel: 02/15/2025 00:16 EDT No organisms seen. Performing Locations *1: This test was performed at: [facility], [address] [place] [address], [id number] , [facility]2025 Note. MICRO - Microbiology PROCEDURE: Blood Culture (bacterial) [*1] SOURCE: Blood BODY SITE: COLLECTED DATE/TIME: 01/05/2025 17:12 EDT RECEIVED DATE/TIME: 01/06/2025 20:13 EDT START DATE/TIME: 01/06/2025 20:13 EDT FREE TEXT SOURCE: [id number] FINAL REPORTS Final Report [] Verified Date/Time/Personnel: 01/11/2025 20:59 EDT Blood Culture: No Growth at 5 days. PRELIMINARY REPORTS Preliminary Report [] Verified Date/Time/Personnel: 01/06/2025 20:59 EDT Culture has been received in lab and is no growth to date. Routine cultures are held for 5 days. Performing Locations *1: This test was performed at: [address], [address] [place] [address] [id number] Note. MICRO - Microbiology PROCEDURE: Blood Culture (bacterial) [*1] SOURCE: Blood BODY SITE: COLLECTED DATE/TIME: 01/05/2025 17:32 EDT RECEIVED DATE/TIME: 01/06/2025 20:17 EDT START DATE/TIME: 01/06/2025 20:17 EDT FREE TEXT SOURCE: FINAL REPORTS Final Report [] Verified Date/Time/Personnel: 01/11/2025 20:59 EDT Blood Culture: No Growth at 5 days. PRELIMINARY REPORTS Preliminary Report [] Verified Date/Time/Personnel: 01/06/2025 20:59 EDT Culture has been received in lab and is no growth to date. Routine cultures are held for 5 days. Performing Locations *1: This test was performed at: [address], [address] [place] [address] [id number] Note. MICRO - Microbiology PROCEDURE: Culture Wound Aerobic with Gram Stain [O1 *1] SOURCE: Wound (surface) BODY SITE: Leg R COLLECTED DATE/TIME: 01/05/2025 17:32 EDT RECEIVED DATE/TIME: 01/06/2025 18:03 EDT START DATE/TIME: 01/06/2025 18:04 EDT FREE TEXT SOURCE: right lower leg FINAL REPORTS Final Report [] Verified Date/Time/Personnel: 01/10/2025 08:44 EDT Light Pseudomonas aeruginosa Few Methicillin-Resistant Staphylococcus aureus This staphylococci does not demonstrate inducible clindamycin resistance in vitro. Light normal skin leonardo present. Sensitivity testing not indicated. PRELIMINARY REPORTS Preliminary Report [] Verified Date/Time/Personnel: 01/09/2025 08:59 EDT Light Pseudomonas aeruginosa Few Staphylococcus aureus PRISCILLA to follow Light normal skin leonardo present. Sensitivity testing not indicated. Preliminary Report [] Verified Date/Time/Personnel: 01/08/2025 11:31 EDT Light Pseudomonas aeruginosa PRISCILLA to follow Light normal skin leonardo present. Sensitivity testing not indicated. Preliminary Report [] Verified Date/Time/Personnel: 01/07/2025 08:41 EDT Culture results pending. STAINS GS [] Verified Date/Time/Personnel: 01/06/2025 18:35 EDT 2+ Epithelial cells Rare Mononuclear cells Rare Polymorphonuclear cells 2+ Yeast SUSCEPTIBILITY RESULTS Pseudomonas aeruginosa Antibiotic PRISCILLA Dilut PRISCILLA Inter Aztreonam <=4 Susceptible Cefepime 4 Susceptible Ceftazidime 4 Susceptible Ceftazidime/ <=4 Susceptible Avibactam Ceftolozane/ <=2 Susceptible Tazobactam ID Panel Not Not Applicable Applicable Imipenem 2 Susceptible Levofloxacin <=0.5 Susceptible Meropenem <=1 Susceptible Piperacillin/ <=8 Susceptible Tazobactam MICRO - Microbiology SUSCEPTIBILITY RESULTS Pseudomonas aeruginosa Antibiotic PRISCILLA Dilut PRISCILLA Inter Tobramycin <=2 Susceptible Methicillin-Resistant Staphylococcus aureus Antibiotic PRISCILLA Dilut PRISCILLA Inter Ampicillin/ <=8/4 Resistant Sulbactam Azithromycin >4 Resistant Cefazolin <=8 Resistant Ceftaroline <=0.5 Susceptible Ceftriaxone <=4 Resistant Ciprofloxacin <=1 Susceptible Clindamycin <=0.25 Susceptible Daptomycin 1 Susceptible Erythromycin >4 Resistant Levofloxacin <=1 Susceptible Linezolid 2 Susceptible Oxacillin >2 Resistant Penicillin 0.06 Resistant Rifampin <=1 Susceptible Tetracycline <=4 Susceptible Trimethoprim/ <=0.5/9.5 Susceptible Sulfa Vancomycin 2 Susceptible Order Comments O1: Culture Wound Aerobic with Gram Stain [id number] Performing Locations *1: This test was performed at: [facility], [address] [place] [address], [facility] , [place] [id number] Discharge summary Date of Service 01/07/2025 Discharge Diagnosis Elevated troponins type II CAD s/p PCI to left circumflex March 2006, PCI to RCA July 2006 and most recent heart cath in April 2021 that revealed patent stents and no other significant disease] history of PVD status post bilateral common iliac artery stents in 2010 ESRD on dialysis HTN Anemia (baseline around 9-10, baseline was higher around 12 in 2023, follows with heme) Seizures on [facility] 74-year-old female, uses a mobility scooter, lives with family, with medical history significant for CAD status post PCI to left circumflex March 2006, PCI to RCA July 2006 and most recent heartcath in April 2021 that revealed patent stents and no other significant disease], hypercholesterolemia, history of PVD status post bilateral common iliac artery stents in 2010, CKD on dialysis Wednesday, hypertension, history of normocytic anemia, seizures on [facility] who presents as a transfer for evaluation of chest pain. The patient underwent nuclear stress testing this admission which was negative for any convincing evidence of reversible ischemia. The patient was evaluated by hospital medicine and nephrology who noted her chronic medical conditions were relatively at baseline. The patient was discharged home in stable condition with instructions to follow-up with her outpatient technical sales representatives for further evaluation. US aorta 12/05/24- no aortic aneursym mild left ICA stenosis EKG shows sinus rhythm without any significant ischemic changes ECHO 2021 Summary: 1. Left ventricle: The cavity size is normal. Wall thickness is normal. Systolic function is normal. The estimated ejection fraction is 55-60%. Wall motion is normal; there are no regional wall motion abnormalities. 2. Aortic valve: Thickening, consistent with sclerosis. 3. Mitral valve: There is mild, 1+ regurgitation. 4. Left atrium: The atrium is mildly dilated. 5. Right ventricle: The RV systolic pressure by Doppler is 27 mm Hg. 6. Pulmonic valve: There is trivial regurgitation. 7. Tricuspid valve: There is trivial regurgitation. CATH 2020 SUMMARY: 1. Left ventricle: Systolic function is normal. The estimated ejection fraction is 50-55%. Wall motion is normal; there are no regional wall motion abnormalities. 2. Left main: The vessel is normal. 3. LAD: The proximal vessel is normal-sized and moderately calcified. There is mild diffuse disease. The mid vessel is normal-sized. There is mild diffuse disease. 4. 2nd diagonal: Ostial lesion: There is a 50% stenosis. 5. Left circumflex: Prior intervention: stent, in the mid left circumflex. The intervened segment is patent. 6. Right coronary: Prior intervention: stent, in the proximal RCA. Proximal vessel lesion: There low diffuse, 30% in-stent recurrent stenosis. IMPRESSIONS: Mild difuse nonobstructive CAD. Patent prior stent involving the RCA with Mild ISR. Patent prior stent involving the distal LCX. patent mid Lcx stent, patent proximal RCA stent with mild ISR, mild diffuse nonobstructive CAD otherwise Allergies Macrodantin (Moderate) HIVES Welchol Unsure Zaroxolyn Unsure colesevelam Unknown metOLazone Unknown nitrofurantoin Unknown pravastatin liver simvastatin Liver traMADol GI upset Procedures Stress test Consults Consult Skin Team re: Pressure Staging - Ordered -- 01/06/25 13:54:40 EDT Consult to Occupational Therapy (OT Consult) - Ordered -- 01/06/25 13:30:00 EDT, Once, Self care deficit Consult to Physical Therapy (PT Consult) - Ordered -- 01/06/25 13:29:00 EDT, Once, Decreased mobility Consult to Physician - Ordered -- 01/06/25 9:31:00 EDT, JASON MCNEIL DO, Routine, elevated tsh, lower extremity wounds, anemia management Consult to Physician - Ordered -- 01/06/25 10:19:00 EDT, PITER MADISON MD, Routine, esrd on dialysis Consult to Spiritual Care Team (Consult to Pastoral Care) - Ordered -- 01/06/25 5:34:50 EDT Imaging Results and Diagnostics NM Myocardial Spect Rest/Stress Result Date: January 06, 2025 Verified By: SHAILESH SHOOK MD CLINICAL STATEMENT: IMPRESSION: 1. No convincing stress-induced reversible perfusion abnormality is seen.2. Cardiac systolic function is normal with estimated ejection fraction of 88%. Physical Exam Vitals and Measurements T: 36.4 C (Oral) HR: 78 (Monitored) RR: 18 BP: 102/58 SpO2: 95% Weight Dosing Weight: 81 kg (01/06/25) Dosing Weight: 84.3 kg (01/06/25) Code Status No qualifying data available. Admission Date 01/06/2025 Discharge Date 01/07/2025 Medications Unchanged acetaminophen-hydrocodone (acetaminophen-hydrocodone 325 mg-5 mg oral tablet)1 tab(s) by mouth two (2) times a day. albuterol (albuterol 2.5 mg/3 mL (0.083%) inhalation solution)3 Milliliter by inhalation every 6 hours as needed for wheezing. Refills: 0. cephalexin (cephalexin 500 mg oral capsule)1 cap by mouth three (3) times a day for 14 Days. Refills: 0. clopidogrel (Plavix 75 mg oral tablet)1 tab(s) by mouth once a day. Refills: 1. furosemide (furosemide 40 mg oral tablet)1 tab(s) by mouth once a day. Refills: 1. herbal/nutritional product (Probiotic)1tab by mouth once a day. levETIRAcetam (levETIRAcetam 500 mg oral tablet)1 tab(s) by mouth two (2) times a day. levothyroxine (levothyroxine 50 mcg (0.05 mg) oral tablet)1 tab(s) by mouth once a day. Refills: 3. linaclotide (Linzess 290 mcg oral capsule)1 cap by mouth once a day. [id number] Milligram by mouth daily at bedtime. metoprolol (metoprolol succinate 25 mg oral TABLET extended release)1 tab(s) by mouth once a day. Do not crush or chew (controlled release). Refills: 2. montelukast (Singulair 10 mg oral tablet)1 tab(s) by mouth once a day (in the evening). Refills: 3. nitroGLYcerin (Nitrostat 0.4 mg sublingual tablet)1 tab(s) under the tongue every 5 minutes as needed as needed for chest pain. Refills: 2. omeprazole (omeprazole 40 mg oral delayed release capsule)1 cap by mouth two (2) times a day. Refills: 0. ondansetron (Zofran 4 mg oral tablet)1 tab(s) by mouth every 6 hours as needed Nausea/Vomiting. polyethylene glycol 3350 (MiraLax oral powder for reconstitution)gram(s) Oral prn. potassium chloride (potassium chloride 20 mEq oral tablet, extended release)2 tab(s) by mouth everySun / Tues / Thurs / Sat. Refills: 2. ranolazine (Ranexa 500 mg oral tablet, extended release)1 tab(s) by mouth two (2) times a day. Refills: 1. rosuvastatin (rosuvastatin 40 mg oral tablet)1 tab(s) by mouth every day. Refills: 3. sevelamer (sevelamer carbonate 800 mg oral tablet)1 tab(s) by mouth three (3) times a day. sulfamethoxazole-trimethoprim (Bactrim DS 800 mg-160 mg oral tablet)1 tab(s) by mouth two (2) timesa day for 14 Days. Refills: 0. Discontinued DULoxetine (DULoxetine 30 mg oral delayed release capsule)1 cap by mouth two (2) times a day. do not crush or chew. hydrOXYzine (hydrOXYzine hydrochloride 25 mg oral tablet)1 tab(s) by mouth four (4) times a day. Refills: 2. Follow Up Follow Up with PEÑA RODRIGEZ MD When:In 30 days Where:[address] [facility] [address] [facility] [place] [address]- Follow Up Appointments No qualifying data available. Follow Up Labs/Studies Discharge Labs No Follow-up Labs Discharge Studies No Follow-up Studies Discharge Diet Discharge Diet - Ordered -- No changes were made to your diet during your hospital stay. Please resume your pre hospitalization diet on discharge., 01/07/25 14:02:00 EDT Discharge Activity Discharge Activity - Ordered -- Resume your pre-hospitalization activity, 01/07/25 14:02:00 EDT Condition on Discharge Stable Discharge Disposition Home Digitally Signed by JOSE MIGUEL LYNN DO on 01/07/2025 09:59 PM Digitally Signed by PEÑA RODRIGEZ MD [id number] Discharge instructions Patient Education 01/07/2025 14:52:21 Heart Attack Heart Attack The heart is a muscle that needs oxygen to survive. A heart attack is a condition that occurs when your heart does not get enough oxygen. When this happens, the heart muscle begins to . This can cause permanent damage if not treated right away. A heart attack is a medical emergency. This condition may be called a myocardial infarction, or NV. It is also known as acute coronary syndrome (ACS). ACS is a term used to describe a group of conditions that affect blood flow to the heart. What are the causes? This condition may be caused by: Atherosclerosis. This occurs when a fatty substance called plaque builds up in the arteries and blocks or reduces blood supply to the heart. A blood clot. A blood clot can develop suddenly when plaque breaks up within an artery and blocks blood flow to the heart. Low blood pressure. An abnormal heartbeat (arrhythmia). Conditions that cause a decrease of oxygen to the heart, such as anemiaorrespiratory failure. A spasm, or severe tightening, of a blood vessel that cuts off blood flow to the heart. Tearing of a coronary artery (spontaneous coronary artery dissection). High blood pressure. What increases the risk? The following factors may make you more likely to develop this condition: Aging. The older you are, the higher your risk. Having a personal or family history of chest pain, heart attack, stroke, or narrowing of the arteries in the legs, arms, head, or stomach (peripheral artery disease). Being male. Smoking. Not getting regular exercise. Being overweight or obese. Having high blood pressure. Having high cholesterol (hypercholesterolemia). Having diabetes. Drinking too much alcohol. Using illegal drugs, such as cocaine or methamphetamine. What are the signs or symptoms? Symptoms of this condition may vary, depending on factors like gender and age. Symptoms may include: Chest pain. It may feel like: ?Crushing or squeezing. ?Tightness, pressure, fullness, or heaviness. Pain in the arm, neck, jaw, back, or upper body. Shortness of breath. Heartburn or upset stomach. Nausea. Sudden cold sweats. Feeling tired. Sudden light-headedness. How is this diagnosed? This condition may be diagnosed through tests, such as: Electrocardiogram (ECG) to measure the electrical activity of your heart. Blood tests to check for cardiac markers. These chemicals are released by a damaged heart muscle. A test to evaluate blood flow and heart function (coronary angiogram). CT scan to see the heart more clearly. A test to evaluate the pumping action of the heart (echocardiogram). How is this treated? A heart attack must be treated as soon as possible. Treatment may include: Medicines to: ?Break up or dissolve blood clots (fibrinolytic therapy). ?Thin blood and help prevent blood clots. ?Treat blood pressure. ?Improve blood flow to the heart. ?Reduce pain. ?Reduce cholesterol. Angioplasty and stent placement. These are procedures to widen a blocked artery and keep it open. Coronary artery bypass graft, CABG, or open heart surgery. This enables blood to flow to the heart by going around the blocked part of the artery. Oxygen therapy if needed. Cardiac rehabilitation. This improves your health and well-being through exercise, education, and counseling. Follow these instructions at home: Medicines Take [id number] and prescription medicines only as told by your health care provider. Do not take the following medicines unless your health care provider says it is okay to take them: ?NSAIDs, such as ibuprofen. ?Supplements that contain vitamin A, vitamin E, or both. ?Hormone replacement therapy that contains estrogen with or without progestin. Lifestyle Do not use any products that contain nicotine or tobacco, such as cigarettes, e- cigarettes, and chewing tobacco. If you need help quitting, ask your health care provider. Avoid secondhand smoke. Exercise regularly. Ask your health care provider about participating in a cardiac rehabilitation program that helps you start exercising safely after a heart attack. Eat a heart-healthy diet. Your health care provider will tell you what foods to eat. Maintain a healthy weight. Learn ways to manage stress. Do not use illegal drugs. Alcohol use Do not drink alcohol if: ?Your health care provider tells you not to drink. ?You are , may be , or are planning to become . If you drink alcohol: ?Limit how much you use to: ?0 1 drink a day for women. ?0 2 drinks a day for men. ?Be aware of how much alcohol is in your drink. In the [place] one drink equals one 12 oz bottle of beer (355 mL), one 5 oz glass of wine (148 mL), or one 1 oz glass of hard liquor (44 mL). General instructions Work with your health care provider to manage any other conditions you have, such as high blood pressure or diabetes. These conditions affect your heart. Get screened for depression, and seek treatment if needed. Keep your vaccinations up to date. Get the flu vaccine every year. Keep all follow-up visits as told by your health care provider. This is important. Contact a health care provider if: You feel overwhelmed or sad. You have trouble doing your daily activities. Get help right away if: You have sudden, unexplained discomfort in your chest, arms, back, neck, jaw, or upper body. You have shortness of breath. You suddenly start to sweat or your skin gets clammy. You feel nauseous or you vomit. You have unexplained tiredness or weakness. You suddenly feel light-headed or dizzy. You notice your heart starts to beat fast or feels like it is skipping beats. You have blood pressure that is higher than 180/120. These symptoms may represent a serious problem that is an emergency. Do not wait to see if the symptoms will go away. Get medical help right away. Call your local emergency services (911 in the [place] Do not drive yourself to the hospital. Summary A heart attack, also called myocardial infarction, is a condition that occurs when your heart does not get enough oxygen. This is caused by anything that blocks or reduces blood flow to the heart. Treatment is a combination of medicines and surgeries, if needed, to open the blocked arteries and restore blood flow to the heart. A heart attack is an emergency. Get help right away if you have sudden discomfort in your chest, arms, back, neck, jaw, or upper body. Seek help if you feel nauseous, you vomit, or you feel light-headed or dizzy. This information is not intended to replace advice given to you by your health care provider. Make sure you discuss any questions you have with your health care provider. Document Released: 08/09/2006 Document Revised: 11/16/2019 Document Reviewed: 11/20/2019 [employer] Patient Education 2020 [email or web address]. 01/07/2025 14:52:21 Delayed Wound Closure Delayed Wound Closure Sometimes, your health care provider will delay closing a wound for several days. This is done whenthe wound is badly bruised or dirty, or when it has been several hours since the injury happened. By delaying the closure of your wound, the risk of infection may be reduced. Wounds that are closed in 3 7 days after being cleaned up and bandaged (dressed) heal just as well as those that are closed right away. Supplies needed: Sterile water or irrigation solution. Hand data support analyst. Clean bandages (dressing). Clean towel. Antibiotic ointment. How to care for your wound Follow instructions from your health care provider about how to take care of your wound. Keep the wound clean and dry. Clean the wound one time each day, or as often as told by your health care provider. To clean your wound: 1.Wash your hands with soap and water. If soap and water are not available, use hand data support analyst. 2.Clean the wound with sterile water or irrigation solution as told by your health care provider. 3.Pat the outside of the wound dry with a clean towel. Do not rub the wound. 4.Apply a thin layer of antibiotic ointment to the skin as told by your health care provider. This will help to prevent infection and keep the dressing from sticking to the wound. 5.Apply a new dressing as told by your health care provider. The dressing covering the wound should be changed at least once per day, or as told by your health care provider. You should also change it if it becomes wet or soiled. Check your wound every day for signs of infection. Check for: ?Redness, swelling, or pain. ?Fluid or blood. ?Warmth. ?Pus or a bad smell. Follow these instructions at home: Medicines Take or apply [id number] and prescription medicines only as told by your health care provider. If you were prescribed an antibiotic medicine or ointment, take or apply it as told by your health care provider. Do not stop taking or applying the antibiotic even if you start to feel better. General instructions If possible, raise (elevate) the injured area above the level of your heart while you are sitting or lying down. This will relieve pain and prevent swelling. Keep the wound clean and dry until it is closed by your health care provider. Do not soak or submerge the wound in water. Avoid stretching your wound. Do not scratch or pick at the wound. Drink enough fluid to keep your urine clear or pale yellow. Have your wound checked as told by your health care provider. To help reduce scarring after your wound heals, cover your wound with clothing or apply sunscreen of at least 30 SPF whenever you are outside. Keep all follow-up visits as told by your health care provider. This is important. Contact a health care provider if: You received a tetanus shot and you have swelling, severe pain, redness, or bleeding at the injection site. You have redness, swelling, or pain around your wound. You have fluid or blood coming from your wound. Your wound feels warm to the touch. You have a fever. You notice something coming out of your wound, such as wood or glass. You have pain that does not get better with medicine. The skin near your wound changes color. You need to change your dressing very frequently due to a lot of fluid, blood, or pus draining fromthe wound. You develop a new rash. You develop numbness around the wound. Get help right away if: You develop severe swelling around your wound. You have pus or a bad smell coming from your wound. Your pain is severe and suddenly gets worse. You develop painful lumps near your wound or anywhere on your body. You have a red streak going away from your wound. The wound is on your hand or foot, and: ?You cannot properly move a finger or toe. ?Your fingers or toes look pale or bluish. ?You have numbness spreading down your hand, foot, fingers, or toes. Summary Sometimes, your health care provider will delay closing a wound for several days. This is done whenthe wound is badly bruised or dirty, or when it has been several hours since the injury happened. Follow instructions from your health care provider about how to take care of your wound. The dressing covering the wound should be changed at least once per day, or as told by your health care provider. You should also change it if it becomes wet or soiled. This information is not intended to replace advice given to you by your health care provider. Make sure you discuss any questions you have with your health care provider. Document Released: 08/09/2006 Document Revised: 01/31/2020 Document Reviewed: 09/21/2017 [employer] Patient Education 2020 [email or web address] 01/07/2025 14:52:20 DASH Eating Plan DASH Eating Plan DASH stands for Dietary Approaches to Stop Hypertension. The DASH eating plan is a healthy eatingplan that has been shown to reduce high blood pressure (hypertension). It may also reduce your riskfor type 2 diabetes, heart disease, and stroke. The DASH eating plan may also help with weight loss. What are tips for following this plan? General guidelines Avoid eating more than 2,300 mg (milligrams) of salt (sodium) a day. If you have hypertension, you may need to reduce your sodium intake to 1,500 mg a day. Limit alcohol intake to no more than 1 drink a day for non women and 2 drinks a day for men. One drink equals 12 oz of beer, 5 oz of wine, or 1 oz of hard liquor. Work with your health care provider to maintain a healthy body weight or to lose weight. Ask what an ideal weight is for you. Get at least 30 minutes of exercise that causes your heart to beat faster (aerobic exercise) most days of the week. Activities may include walking, swimming, or biking. Work with your health care provider or diet and crop nutrition scientist (dietitian) to adjust your eating plan to your individual calorie needs. Reading food labels Check food labels for the amount of sodium per serving. Choose foods with less than 5 percent of the Daily Value of sodium. Generally, foods with less than 300 mg of sodium per serving fit into this eating plan. To find whole grains, look for the word whole as the first word in the ingredient list. Shopping Buy products labeled as low-sodium or no salt added. Buy fresh foods. Avoid canned foods and premade or frozen meals. Cooking Avoid adding salt when cooking. Use salt-free seasonings or herbs instead of table salt or sea salt. Check with your health care provider or pharmacist before using salt substitutes. Do not muir foods. Cook foods using healthy methods such as baking, boiling, grilling, and broiling instead. Cook with heart-healthy oils, such as olive, canola, soybean, or sunflower oil. Meal planning Eat a balanced diet that includes: ?5 or more servings of fruits and vegetables each day. At each meal, try to fill half of your platewith fruits and vegetables. ?Up to 6 8 servings of whole grains each day. ?Less than 6 oz of lean meat, poultry, or fish each day. A 3-oz serving of meat is about the same size as a deck of cards. One egg equals 1 oz. ?2 servings of low-fat dairy each day. ?A serving of nuts, seeds, or beans 5 times each week. ?Heart-healthy fats. Healthy fats called [place]-3 fatty acids are found in foods such as flaxseeds and coldwater fish, like sardines, salmon, and mackerel. Limit how much you eat of the following: ?Canned or prepackaged foods. ?Food that is high in trans fat, such as fried foods. ?Food that is high in saturated fat, such as fatty meat. ?Sweets, desserts, sugary drinks, and other foods with added sugar. ?Full-fat dairy products. Do not salt foods before eating. Try to eat at least 2 vegetarian meals each week. Eat more home-cooked food and less restaurant, buffet, and fast food. When eating at a restaurant, ask that your food be prepared with less salt or no salt, if possible. What foods are recommended? The items listed may not be a complete list. Talk with your dietitian about what dietary choices are best for you. Grains Whole-grain or whole-wheat bread. Whole-grain or whole-wheat pasta. Brown rice. Oatmeal. Quinoa. Bulgur. Whole-grain and low-sodium cereals. Alysha bread. Low- fat, low-sodium crackers. Whole-wheat flour tortillas. Vegetables Fresh or frozen vegetables (raw, steamed, roasted, or grilled). Low-sodium or reduced-sodium tomatoand vegetable juice. Low-sodium or reduced-sodium tomato sauce and tomato paste. Low-sodium or reduced-sodium canned vegetables. Fruits All fresh, dried, or frozen fruit. Canned fruit in natural juice (without added sugar). Meat and other protein foods Skinless chicken or turkey. Ground chicken or turkey. Pork with fat trimmed off. Fish and seafood. Egg whites. Dried beans, peas, or lentils. Unsalted nuts, nut butters, and seeds. Unsalted canned beans. Lean cuts of beef with fat trimmed off. Low-sodium, lean deli meat. Dairy Low-fat (1%) or fat-free (skim) milk. Fat-free, low-fat, or reduced-fat cheeses. Nonfat, low-sodiumricotta or cottage cheese. Low-fat or nonfat yogurt. Low-fat, low-sodium cheese. Fats and oils Soft margarine without trans fats. Vegetable oil. Low-fat, reduced-fat, or light mayonnaise and salad dressings (reduced-sodium). Canola, safflower, olive, soybean, and sunflower oils. Avocado. Seasoning and other foods Herbs. Spices. Seasoning mixes without salt. Unsalted popcorn and pretzels. Fat- free sweets. What foods are not recommended? The items listed may not be a complete list. Talk with your dietitian about what dietary choices are best for you. Grains Baked goods made with fat, such as croissants, muffins, or some breads. Dry pasta or rice meal packs. Vegetables Creamed or fried vegetables. Vegetables in a cheese sauce. Regular canned vegetables (not low-sodium or reduced-sodium). Regular canned tomato sauce and paste (not low-sodium or reduced-sodium). Regular tomato and vegetable juice (not low-sodium or reduced-sodium). Pickles. Olives. Fruits Canned fruit in a light or heavy syrup. Fried fruit. Fruit in cream or butter sauce. Meat and other protein foods Fatty cuts of meat. Ribs. Fried meat. Wooten. Sausage. Bologna and other processed lunch meats. Salami. Fatback. Hotdogs. Bratwurst. Salted nuts and seeds. Canned beans with added salt. Canned or smoked fish. Whole eggs or egg yolks. Chicken or turkey with skin. Dairy Whole or 2% milk, cream, and unne-ete-winf. Whole or full-fat cream cheese. Whole-fat or sweetened yogurt. Full-fat cheese. Nondairy creamers. Whipped toppings. Processed cheese and cheese spreads. Fats and oils Butter. Stick margarine. Lard. Shortening. Ghee. Wooten fat. Tropical oils, such as coconut, palm kernel, or palm oil. Seasoning and other foods Salted popcorn and pretzels. Onion salt, garlic salt, seasoned salt, table salt, and sea salt. Worcestershire sauce. Tartar sauce. Barbecue sauce. Teriyaki sauce. Soy sauce, including reduced-sodium.Steak sauce. Canned and packaged gravies. Fish sauce. Oyster sauce. Cocktail sauce. Horseradish that you find on the shelf. Ketchup. Mustard. Meat flavorings and tenderizers. Bouillon cubes. Hot sauce and Tabasco sauce. Premade or packaged marinades. Premade or packaged taco seasonings. Relishes. Regular salad dressings. Where to find more information: National Heart, Lung, and Blood [place]: www.nhlbi.nih.gov [place] [employer] Association: www.heart.org Summary The DASH eating plan is a healthy eating plan that has been shown to reduce high blood pressure (hypertension). It may also reduce your risk for type 2 diabetes, heart disease, and stroke. With the DASH eating plan, you should limit salt (sodium) intake to 2,300 mg a day. If you have hypertension, you may need to reduce your sodium intake to 1,500 mg a day. When on the DASH eating plan, aim to eat more fresh fruits and vegetables, whole grains, lean proteins, low-fat dairy, and heart-healthy fats. Work with your health care provider or diet and crop nutrition scientist (dietitian) to adjust your eating plan to your individual calorie needs. This information is not intended to replace advice given to you by your health care provider. Make sure you discuss any questions you have with your health care provider. Document Released: 07/28/2012 Document Revised: 07/22/2018 Document Reviewed: 08/02/2017 [employer] Patient Education 2020 [employer] 01/07/2025 14:52:19 Cellulitis, Adult Cellulitis, Adult Cellulitis is a skin infection. The infected area is usually warm, red, swollen, and tender. This condition occurs most often in the arms and lower legs. The infection can travel to the muscles, blood, and underlying tissue and become serious. It is very important to get treated for this condition. What are the causes? Cellulitis is caused by bacteria. The bacteria enter through a break in the skin, such as a cut, burn, insect bite, open sore, or crack. What increases the risk? This condition is more likely to occur in people who: Have a weak body defense system (immune system). Have open wounds on the skin, such as cuts, arias, bites, and scrapes. Bacteria can enter the body through these open wounds. Are older than 60 years of age. Have diabetes. Have a type of long-lasting (chronic) liver disease (cirrhosis) or kidney disease. Are obese. Have a skin condition such as: ?Itchy rash (eczema). ?Slow movement of blood in the veins (venous stasis). ?Fluid buildup below the skin (edema). Have had radiation therapy. Use IV drugs. What are the signs or symptoms? Symptoms of this condition include: Redness, streaking, or spotting on the skin. Swollen area of the skin. Tenderness or pain when an area of the skin is touched. Warm skin. A fever. Chills. Blisters. How is this diagnosed? This condition is diagnosed based on a medical history and physical exam. You may also have tests, including: Blood tests. Imaging tests. How is this treated? Treatment for this condition may include: Medicines, such as antibiotic medicines or medicines to treat allergies (antihistamines). Supportive care, such as rest and application of cold or warm cloths (compresses) to the skin. Hospital care, if the condition is severe. The infection usually starts to get better within 1 2 days of treatment. Follow these instructions at home: Medicines Take jich-ujh-ujthjbd and prescription medicines only as told by your health care provider. If you were prescribed an antibiotic medicine, take it as told by your health care provider. Do notstop taking the antibiotic even if you start to feel better. General instructions Drink enough fluid to keep your urine pale yellow. Do not touch or rub the infected area. Raise (elevate) the infected area above the level of your heart while you are sitting or lying down. Apply warm or cold compresses to the affected area as told by your health care provider. Keep all follow-up visits as told by your health care provider. This is important. These visits letyour health care provider make sure a more serious infection is not developing. Contact a health care provider if: You have a fever. Your symptoms do not begin to improve within 1 2 days of starting treatment. Your bone or joint underneath the infected area becomes painful after the skin has healed. Your infection returns in the same area or another area. You notice a swollen bump in the infected area. You develop new symptoms. You have a general ill feeling (malaise) with muscle aches and pains. Get help right away if: Your symptoms get worse. You feel very sleepy. You develop vomiting or diarrhea that persists. You notice red streaks coming from the infected area. Your red area gets larger or turns dark in color. These symptoms may represent a serious problem that is an emergency. Do not wait to see if the symptoms will go away. Get medical help right away. Call your local emergency services (911 in the [place] Do not drive yourself to the hospital. Summary Cellulitis is a skin infection. This condition occurs most often in the arms and lower legs. Treatment for this condition may include medicines, such as antibiotic medicines or antihistamines. Take vgxr-tzx-zvpgxup and prescription medicines only as told by your health care provider. If you were prescribed an antibiotic medicine, do not stop taking the antibiotic even if you start to feel better. Contact a health care provider if your symptoms do not begin to improve within 1 2 days of startingtreatment or your symptoms get worse. Keep all follow-up visits as told by your health care provider. This is important. These visits letyour health care provider make sure that a more serious infection is not developing. This information is not intended to replace advice given to you by your health care provider. Make sure you discuss any questions you have with your health care provider. Document Released: 05/19/2006 Document Revised: 12/29/2018 Document Reviewed: 12/29/2018 [employer] Patient Education 2020 [email or web address]. 01/07/2025 14:52:18 Heart Attack, Zsus-vq-Oclx Heart Attack A heart attack occurs when blood and oxygen supply to the heart is cut off. A heart attack causes damage to the heart that cannot be fixed. A heart attack is also called a myocardial infarction, or NV. If you think you are having a heart attack, do not wait to see if the symptoms will go away. Get medical help right away. What are the causes? This condition may be caused by: A fatty substance (plaque) in the blood vessels (arteries). This can block the flow of blood to theheart. A blood clot in the blood vessels that go to the heart. The blood clot blocks blood flow. Low blood pressure. An abnormal heartbeat. Some diseases, such as problems in red blood cells (anemia)orproblems in breathing (respiratory failure). Tightening (spasm) of a blood vessel that cuts off blood to the heart. A tear in a blood vessel of the heart. High blood pressure. What increases the risk? The following factors may make you more likely to develop this condition: Aging. The older you are, the higher your risk. Having a personal or family history of chest pain, heart attack, stroke, or narrowing of the arteries in the legs, arms, head, or stomach (peripheral artery disease). Being male. Smoking. Not getting regular exercise. Being overweight or obese. Having high blood pressure. Having high cholesterol. Having diabetes. Drinking too much alcohol. Using illegal drugs, such as cocaine or methamphetamine. What are the signs or symptoms? Symptoms of this condition include: Chest pain. It may feel like: ?Crushing or squeezing. ?Tightness, pressure, fullness, or heaviness. Pain in the arm, neck, jaw, back, or upper body. Shortness of breath. Heartburn. Upset stomach (indigestion). Feeling like you may vomit (nauseous). Cold sweats. Feeling tired. Sudden light-headedness. How is this treated? A heart attack must be treated as soon as possible. Treatment may include: Medicines to: ?Break up or dissolve blood clots. ?Thin blood and help prevent blood clots. ?Treat blood pressure. ?Improve blood flow to the heart. ?Reduce pain. ?Reduce cholesterol. Procedures to widen a blocked artery and keep it open. Open heart surgery. Receiving oxygen. Making your heart strong again (cardiac rehabilitation) through exercise, education, and counseling. Follow these instructions at home: Medicines Take qpon-baw-bgghdlf and prescription medicines only as told by your doctor. You may need to take medicine: ?To keep your blood from clotting too easily. ?To control blood pressure. ?To lower cholesterol. ?To control heart rhythms. Do not take these medicines unless your doctor says it is okay: ?NSAIDs, such as ibuprofen. ?Supplements that have vitamin A, vitamin E, or both. ?Hormone replacement therapy that has estrogen with or without progestin. Lifestyle Do not use any products that have nicotine or tobacco, such as cigarettes, e- cigarettes, and chewing tobacco. If you need help quitting, ask your doctor. Avoid secondhand smoke. Exercise regularly. Ask your doctor about a cardiac rehab program. Eat heart-healthy foods. Your doctor will tell you what foods to eat. Stay at a healthy weight. Lower your stress level. Do not use illegal drugs. Alcohol use Do not drink alcohol if: ?Your doctor tells you not to drink. ?You are , may be , or are planning to become . If you drink alcohol: ?Limit how much you use to: ?0 1 drink a day for women. ?0 2 drinks a day for men. ?Know how much alcohol is in your drink. In the [place] one drink equals one 12 oz bottle of beer (355 mL), one 5 oz glass of wine (148 mL), or one 1 oz glass of hard liquor (44 mL). General instructions Work with your doctor to treat other problems you may have, such as diabetes or high blood pressure. Get screened for depression. Get treatment if needed. Keep your vaccines up to date. Get the flu shot (influenza vaccine) every year. Keep all follow-up visits as told by your doctor. This is important. Contact a doctor if: You feel very sad. You have trouble doing your daily activities. Get help right away if: You have sudden, unexplained discomfort in your chest, arms, back, neck, jaw, or upper body. You have shortness of breath. You have sudden sweating or clammy skin. You feel like you may vomit. You vomit. You feel tired or weak. You get light-headed or dizzy. You feel your heart beating fast. You feel your heart skipping beats. You have blood pressure that is higher than 180/120. These symptoms may be an emergency. Do not wait to see if the symptoms will go away. Get medical help right away. Call your local emergency services (911 in the [place] Do not drive yourself to the hospital. Summary A heart attack occurs when blood and oxygen supply to the heart is cut off. Do not take NSAIDs unless your doctor says it is okay. Do not smoke. Avoid secondhand smoke. Exercise regularly. Ask your doctor about a cardiac rehab program. This information is not intended to replace advice given to you by your health care provider. Make sure you discuss any questions you have with your health care provider. Document Released: 02/07/2013 Document Revised: 11/20/2019 Document Reviewed: 11/20/2019 [employer] Patient Education 2020 [employer] Follow Up Care 01/05/2025 20:40:15 With:PEÑA RODRIGEZ MD Address: [facility] [address] [place] [address] [id number] [facility] [place] [address]- When:Within 30 Day(s) [facility] 05-18-2025 Note Date of Service 01/07/2025 Chief Complaint Anemia Subjective This is a split/shared visit with Dr. Pierson. Pt is a 74-year-old male with a history of CAD, ESRD on HD MWF, PVD on Plavix, seizure disorder on Keppra, hypothyroid, and hypertension who presented to the emergency department by her primary care physician after she had an abnormal outpatient BMP and elevated troponin. She was admitted to the cardiology service underwent a stress test which was unremarkable the cardiology service is consulting the hospitalist for medical management of her chronic conditions such as her anemia, hypothyroid, and cellulitis. Pt states chest pain resolved and SOB improved. No complaints. Objective Vitals and Measurements T: 36.4 C (Oral) TMIN: 35.5 C (Skin) TMAX: 37.1 C (Oral) HR: 76 (Monitored) RR: 18 BP: 102/58 SpO2:95% WT: 81.0 kg Intake and Output 7AM Yesterday to 7AM Today Intake and Output (Last 24 hours) Intake Oral Intake 240.00 Output Hemodialysis 1800.00 Stool Count 1.00 Urine Count 3.00 Total Summary Total Intake 240.00 Total Output 1800.00 Fluid Balance -1560.00 Physical Exam General: Alert and oriented x 3, NAD Head: Normocephalic, mmm, sclera nonicteric Cardiovascular: Normal rate and rhythm, no murmur, - edema Respiratory: Lungs clear to auscultation bilaterally, easy Abdomen: soft and non-distended, bowel sounds active all 4 quadrants Neurological: Moving all 4 extremities, speech clear Psychological: normal affect, cooperative, good eye contact Weight Dosing Weight: 81 kg (01/06/25) Dosing Weight: 84.3 kg (01/06/25) Medications Medications (30) Active Scheduled: (15) acetaminophen-HYDROcodone 325-5 mg tablet 1 tab(s), Oral, BID cephalexin monohydrate 500 mg Capsule 500 mg 1 cap(s), Oral, q12h clopidogrel 75 mg Tablet 75 mg 1 tab(s), Oral, qDay furosemide 40 mg tablet 40 mg 1 tab(s), Oral, qDay heparin 5,000 units/mL (1 mL) vial 5,000 unit(s) 1 mL, Subcutaneous, q12h levETIRAcetam 500 mg tablet 500 mg 1 tab(s), Oral, BID levothyroxine 50 mcg tablet 50 mcg 1 tab(s), Oral, qDay metoprolol succinate 25 mg ER tablet 25 mg 1 tab(s), Oral, qDay montelukast 10 mg Tablet 10 mg 1 tab(s), Oral, qPM omeprazole [address] capsule 40 mg 1 cap(s), Oral, BID ranolazine 500 mg ER Tablet 500 mg 1 tab(s), Oral, BID rosuvastatin 20 mg tablet 40 mg 2 tab(s), Oral, Daily sevelamer carbonate 800 mg tablet 800 mg 1 tab(s), Oral, TID sodium ferric gluconate complex 250 mg 20 mL, IV Piggyback, Once sulfamethoxazole-trimethoprim 400 mg-80 mg Tablet 1 tab(s), Oral, q24h Continuous: (0) PRN: (15) acetaminophen 325 mg Tablet 650 mg 2 tab(s), Oral, q4h albuterol - ipratropium 2.5 mg-0.5 mg/3 mL Inhal Barbara UD 3 mL, Inhalation, q4hRT albuterol 0.083% Soln UD (2.5mg/3 mL) 2.5 mg 3 mL, Inhalation, q6h dextrose 50% Solution Disp syringe 50 mL 25 gram(s) 50 mL, IV Push, AsDirected magnesium sulfate 4 gram(s)/100mL PMX 4 g 100 mL, IV Piggyback, AsDirected magnesium sulfate 50% (500mg/mL) 6 g 12 mL, IV Piggyback, AsDirected magnesium sulfate PMX 2 g 50 mL, IV Piggyback, AsDirected melatonin 3 mg tablet 3 mg 1 tab(s), Oral, qHS nitroglycerin 0.4 mg Tablet (25/btl) 0.4 mg 1 tab(s), Sublingual, q5min polyethylene glycol 3350 - UD packet 17 gram(s) 15 mL, Oral, qDay polyethylene glycol 3350 - UD packet 17 gram(s) 15 mL, Oral, qDay potassium chloride (PMX) 20 mEq/100 mL 20 mEq 100 mL, IV Piggyback, AsDirected potassium chloride 20 mEq ER tablet 20 mEq 1 tab(s), Oral, AsDirected potassium chloride 20 mEq ER tablet 40 mEq 2 tab(s), Oral, AsDirected potassium chloride 20 mEq ER tablet 40 mEq 2 tab(s), Oral, AsDirected Lab Results 01/07 07:59 WBC: 6.9 Hgb: 7.8 L Hct: 23.5 L Platelet: 199 Neutrophil %: 64.0 Glucose Level: 86 Glucose Level: 86 Sodium Level: 136 Sodium Level: 136 Potassium Level: 4.3 Potassium Level: 4.3 BUN: 43.0 H BUN: 43.0 H Creatinine Lvl (s): 5.33 H Creatinine Lvl (s): 5.33 H 01/06 14:19 WBC: 7.9 Hgb: 7.9 L Hct: 23.5 L Platelet: 222 Neutrophil %: 73.2 01/06 08:08 WBC: 7.1 Hgb: 7.4 L Hct: 22.4 L Platelet: 224 Neutrophil %: 64.8 Glucose Level: 86 Sodium Level: 137 Potassium Level: 3.9 BUN: 30.0 H Creatinine Lvl (s): 4.12 H EKG EKG - Completed -- 01/06/25 4:39:00 EDT Assessment/Plan CAD elevated troponins End-stage renal disease Acute on chronic anemia Chronic wounds Hypothyroid Seizure disorder Hypertension PVD CAD/Troponin-stress test negative, management per primary ESRD-UF yesterday. Management per nephrology, plan to resume normal MWF dialysis. Epogen with dialysis Hgb stable, no active bleeding. Multifactorial in the setting of COMPA and CKD. Will give IV iron x 1and recommend epogen with dialysis Continue antibiotics as previously prescribed From a medical standpoint the patient's chronic conditions appear to be at baseline without acute issues. Will sign off and see PRN throughout the duration of admission. Please contact us should further medical evaluation be necessary. Thank you for requesting our participation with care of your patient. Digitally Signed by MICHAEL TORRES on 01/07/2025 12:33 PM [id number] Note Discharge Instructions Thank you for allowing [facility] to assist you with your healthcare needs. The following is importantdischarge information regarding your hospital visit. Your Care Team BELL MAHER MD Your Diagnosis Cellulitis Hypertension Hypothyroidism Skin tear of lower leg without complication What to do next Scheduled Follow-Up Appointments Appointment Type When With Where Contact Information StatusPC OV Follow Up 01/17/2025 11:30 AM EDT BELL MAHER MD [facility] Confirmed HEM ONC OV Follow Up w/EMPLOYEE COMMUNICATIONS MANAGER 02/05/2025 11:45 AM EDT ARGENTINA ARGUELLO APRN-VASCULAR ULTRASOUND TECHNICIAN [facility] Confirmed Follow Up Appointments Follow Up with PEÑA RODRIGEZ MD When:In 30 days Where:[id number] [facility] [place] [address]- The Following Activity and Diet Have Been Ordered for You Discharge Activity - Ordered -- Resume your pre-hospitalization activity, 01/07/25 14:02:00 EDT Discharge Diet - Ordered -- No changes were made to your diet during your hospital stay. Please resume your pre hospitalization diet on discharge., 01/07/25 14:02:00 EDT The Following Equipment Has Been Ordered for You No qualifying data available. The Following Treatments Have Been Ordered for You Discharge Labs No qualifying data available. Discharge Radiology No qualifying data available. Other Therapies No qualifying data available. Post Acute Orders No qualifying data available. Someone Will Contact You Regarding These Home Health Referrals No home referrals have been ordered for you. No one will call you. Allergies Macrodantin (Moderate) HIVES Welchol Unsure Zaroxolyn Unsure colesevelam Unknown metOLazone Unknown nitrofurantoin Unknown pravastatin liver simvastatin Liver traMADol GI upset Medications Please ask your primary doctor or pharmacist before taking any other medication not listed, including over the counter drugs, herbal medications, vitamins and or supplements as they may interact withyour home medications. What How Much When Why Instructions Last Dose Unchanged acetaminophen- hydrocodone (acetaminophen-hydrocodone 325 mg-5 mg oral tablet) 1 tab(s) by mouth Two (2) times a day Unchanged albuterol (albuterol 2.5 mg/ 3 mL (0.083%) inhalation solution) 3 Milliliter by inhalation Every 6 hours as needed for for wheezing Unchanged cephalexin (cephalexin 500 mg oral capsule) 1 cap by mouth Three (3) times a day Skin tear of lower leg without complication Cellulitis Duration: 14 Days Unchanged clopidogrel (Plavix 75 mg oral tablet) 1 tab(s) by mouth Once a day Unchanged furosemide (furosemide 40 mg oral tablet) 1 tab(s) by mouth Once a day Unchanged herbal/ nutritional product (Probiotic) 1tab by mouth Once a day Unchanged levETIRAcetam (levETIRAcetam 500 mg oral tablet) 1 tab(s) by mouth Two (2) times a day Unchanged levothyroxine (levothyroxine 50 mcg (0.05 mg) oral tablet) 1 tab(s) by mouth Once a day Unchanged linaclotide (Linzess 290 mcg oral capsule) 1 cap by mouth Once a day Unchanged melatonin 30 Milligram by mouth Daily at bedtime Unchanged metoprolol (metoprolol succinate 25 mg oral TABLET extended release) 1 tab(s) by mouth Once a day Do not crush or chew (controlled release) Unchanged montelukast (Singulair 10 mg oral tablet) 1 tab(s) by mouth Once a day (in the evening) Unchanged nitroGLYcerin (Nitrostat 0.4 mg sublingual tablet) 1 tab(s) under the tongue Every 5 minutes as needed for as needed for chest pain Unchanged omeprazole (omeprazole 40 mg oral delayed release capsule) 1 cap by mouth Two (2) times a day Unchanged ondansetron (Zofran 4 mg oral tablet) 1 tab(s) by mouth Every 6 hours as needed for Nausea/Vomiting Unchanged polyethylene glycol 3350 (MiraLax oral powder for reconstitution) See instructions gram(s) Oral prn Unchanged potassium chloride (potassium chloride 20 mEq oral tablet, extended release) 2 tab(s) by mouth Every Sun / es / Thurs / Sat Unchanged ranolazine (Ranexa 500 mg oral tablet, extended release) 1 tab(s) by mouth Two (2) times a day Unchanged rosuvastatin (rosuvastatin 40 mg oral tablet) 1 tab(s) by mouth Every day Hypothyroidism Hypertension Unchanged sevelamer (sevelamer carbonate 800 mg oral tablet) 1 tab(s) by mouth Three (3) times a day Unchanged sulfamethoxazole-trimethoprim (Bactrim DS 800 mg-160 mg oral tablet) 1 tab(s) by mouth Two (2) times a day Duration: 14 Days What How Much When Comments Stop Taking DULoxetine (DULoxetine 30 mg oral delayed release capsule) 1 cap by mouth Two (2) times a day do not crush or chew Stop Taking hydrOXYzine (hydrOXYzine hydrochloride 25 mg oral tablet) 1 tab(s) by mouth Four (4) times a day Please take this list to your next doctor s visit. Bring all medications you take, including over the counter medications, herbals and other supplements with you to your doctor s visit. Patients and families are reminded to discard old lists and to update any records with all medication providers or retail pharmacies. Education Materials Heart Attack The heart is a muscle that needs oxygen to survive. A heart attack is a condition that occurs when your heart does not get enough oxygen. When this happens, the heart muscle begins to . This can cause permanent damage if not treated right away. A heart attack is a medical emergency. This condition may be called a myocardial infarction, or NV. It is also known as acute coronary syndrome (ACS). ACS is a term used to describe a group of conditions that affect blood flow to the heart. What are the causes? This condition may be caused by: Atherosclerosis. This occurs when a fatty substance called plaque builds up in the arteries and blocks or reduces blood supply to the heart. A blood clot. A blood clot can develop suddenly when plaque breaks up within an artery and blocks blood flow to the heart. Low blood pressure. An abnormal heartbeat (arrhythmia). Conditions that cause a decrease of oxygen to the heart, such as anemiaorrespiratory failure. A spasm, or severe tightening, of a blood vessel that cuts off blood flow to the heart. Tearing of a coronary artery (spontaneous coronary artery dissection). High blood pressure. What increases the risk? The following factors may make you more likely to develop this condition: Aging. The older you are, the higher your risk. Having a personal or family history of chest pain, heart attack, stroke, or narrowing of the arteries in the legs, arms, head, or stomach (peripheral artery disease). Being male. Smoking. Not getting regular exercise. Being overweight or obese. Having high blood pressure. Having high cholesterol (hypercholesterolemia). Having diabetes. Drinking too much alcohol. Using illegal drugs, such as cocaine or methamphetamine. What are the signs or symptoms? Symptoms of this condition may vary, depending on factors like gender and age. Symptoms may include: Chest pain. It may feel like: ? Crushing or squeezing. ? Tightness, pressure, fullness, or heaviness. Pain in the arm, neck, jaw, back, or upper body. Shortness of breath. Heartburn or upset stomach. Nausea. Sudden cold sweats. Feeling tired. Sudden light-headedness. How is this diagnosed? This condition may be diagnosed through tests, such as: Electrocardiogram (ECG) to measure the electrical activity of your heart. Blood tests to check for cardiac markers. These chemicals are released by a damaged heart muscle. A test to evaluate blood flow and heart function (coronary angiogram). CT scan to see the heart more clearly. A test to evaluate the pumping action of the heart (echocardiogram). How is this treated? A heart attack must be treated as soon as possible. Treatment may include: Medicines to: ? Break up or dissolve blood clots (fibrinolytic therapy). ? Thin blood and help prevent blood clots. ? Treat blood pressure. ? Improve blood flow to the heart. ? Reduce pain. ? Reduce cholesterol. Angioplasty and stent placement. These are procedures to widen a blocked artery and keep it open. Coronary artery bypass graft, CABG, or open heart surgery. This enables blood to flow to the heart by going around the blocked part of the artery. Oxygen therapy if needed. Cardiac rehabilitation. This improves your health and well-being through exercise, education, and counseling. Follow these instructions at home: Medicines Take oqeh-hro-vvaurzq and prescription medicines only as told by your health care provider. Do not take the following medicines unless your health care provider says it is okay to take them: ? NSAIDs, such as ibuprofen. ? Supplements that contain vitamin A, vitamin E, or both. ? Hormone replacement therapy that contains estrogen with or without progestin. Lifestyle Do not use any products that contain nicotine or tobacco, such as cigarettes, e- cigarettes, and chewing tobacco. If you need help quitting, ask your health care provider. Avoid secondhand smoke. Exercise regularly. Ask your health care provider about participating in a cardiac rehabilitation program that helps you start exercising safely after a heart attack. Eat a heart-healthy diet. Your health care provider will tell you what foods to eat. Maintain a healthy weight. Learn ways to manage stress. Do not use illegal drugs. Alcohol use Do not drink alcohol if: ? Your health care provider tells you not to drink. ? You are , may be , or are planning to become . If you drink alcohol: ? Limit how much you use to: ? 0 1 drink a day for women. ? 0 2 drinks a day for men. ? Be aware of how much alcohol is in your drink. In the [place] one drink equals one 12 oz bottle of beer (355 mL), one 5 oz glass of wine (148 mL), or one 1 oz glass of hard liquor (44 mL). General instructions Work with your health care provider to manage any other conditions you have, such as high blood pressure or diabetes. These conditions affect your heart. Get screened for depression, and seek treatment if needed. Keep your vaccinations up to date. Get the flu vaccine every year. Keep all follow-up visits as told by your health care provider. This is important. Contact a health care provider if: You feel overwhelmed or sad. You have trouble doing your daily activities. Get help right away if: You have sudden, unexplained discomfort in your chest, arms, back, neck, jaw, or upper body. You have shortness of breath. You suddenly start to sweat or your skin gets clammy. You feel nauseous or you vomit. You have unexplained tiredness or weakness. You suddenly feel light-headed or dizzy. You notice your heart starts to beat fast or feels like it is skipping beats. You have blood pressure that is higher than 180/120. These symptoms may represent a serious problem that is an emergency. Do not wait to see if the symptoms will go away. Get medical help right away. Call your local emergency services (911 in the [place] Do not drive yourself to the hospital. Summary A heart attack, also called myocardial infarction, is a condition that occurs when your heart does not get enough oxygen. This is caused by anything that blocks or reduces blood flow to the heart. Treatment is a combination of medicines and surgeries, if needed, to open the blocked arteries and restore blood flow to the heart. A heart attack is an emergency. Get help right away if you have sudden discomfort in your chest, arms, back, neck, jaw, or upper body. Seek help if you feel nauseous, you vomit, or you feel light-headed or dizzy. This information is not intended to replace advice given to you by your health care provider. Make sure you discuss any questions you have with your health care provider. Document Released: 08/09/2006 Document Revised: 11/16/2019 Document Reviewed: 11/20/2019 [employer] Patient Education 2020 [employer] Delayed Wound Closure Sometimes, your health care provider will delay closing a wound for several days. This is done whenthe wound is badly bruised or dirty, or when it has been several hours since the injury happened. By delaying the closure of your wound, the risk of infection may be reduced. Wounds that are closed in 3 7 days after being cleaned up and bandaged (dressed) heal just as well as those that are closed right away. Supplies needed: Sterile water or irrigation solution. Hand data support analyst. Clean bandages (dressing). Clean towel. Antibiotic ointment. How to care for your wound Follow instructions from your health care provider about how to take care of your wound. Keep the wound clean and dry. Clean the wound one time each day, or as often as told by your health care provider. To clean your wound: 1. Wash your hands with soap and water. If soap and water are not available, use hand data support analyst. 2. Clean the wound with sterile water or irrigation solution as told by your health care provider. 3. Pat the outside of the wound dry with a clean towel. Do not rub the wound. 4. Apply a thin layer of antibiotic ointment to the skin as told by your health care provider. This will help to prevent infection and keep the dressing from sticking to the wound. 5. Apply a new dressing as told by your health care provider. The dressing covering the wound should be changed at least once per day, or as told by your health care provider. You should also change it if it becomes wet or soiled. Check your wound every day for signs of infection. Check for: ? Redness, swelling, or pain. ? Fluid or blood. ? Warmth. ? Pus or a bad smell. Follow these instructions at home: Medicines Take or apply nniv-zxi-bwuckiw and prescription medicines only as told by your health care provider. If you were prescribed an antibiotic medicine or ointment, take or apply it as told by your health care provider. Do not stop taking or applying the antibiotic even if you start to feel better. General instructions If possible, raise (elevate) the injured area above the level of your heart while you are sitting or lying down. This will relieve pain and prevent swelling. Keep the wound clean and dry until it is closed by your health care provider. Do not soak or submerge the wound in water. Avoid stretching your wound. Do not scratch or pick at the wound. Drink enough fluid to keep your urine clear or pale yellow. Have your wound checked as told by your health care provider. To help reduce scarring after your wound heals, cover your wound with clothing or apply sunscreen of at least 30 SPF whenever you are outside. Keep all follow-up visits as told by your health care provider. This is important. Contact a health care provider if: You received a tetanus shot and you have swelling, severe pain, redness, or bleeding at the injection site. You have redness, swelling, or pain around your wound. You have fluid or blood coming from your wound. Your wound feels warm to the touch. You have a fever. You notice something coming out of your wound, such as wood or glass. You have pain that does not get better with medicine. The skin near your wound changes color. You need to change your dressing very frequently due to a lot of fluid, blood, or pus draining fromthe wound. You develop a new rash. You develop numbness around the wound. Get help right away if: You develop severe swelling around your wound. You have pus or a bad smell coming from your wound. Your pain is severe and suddenly gets worse. You develop painful lumps near your wound or anywhere on your body. You have a red streak going away from your wound. The wound is on your hand or foot, and: ? You cannot properly move a finger or toe. ? Your fingers or toes look pale or bluish. ? You have numbness spreading down your hand, foot, fingers, or toes. Summary Sometimes, your health care provider will delay closing a wound for several days. This is done whenthe wound is badly bruised or dirty, or when it has been several hours since the injury happened. Follow instructions from your health care provider about how to take care of your wound. The dressing covering the wound should be changed at least once per day, or as told by your health care provider. You should also change it if it becomes wet or soiled. This information is not intended to replace advice given to you by your health care provider. Make sure you discuss any questions you have with your health care provider. Document Released: 08/09/2006 Document Revised: 01/31/2020 Document Reviewed: 09/21/2017 [employer] Patient Education 2020 [employer] DASH Eating Plan DASH stands for Dietary Approaches to Stop Hypertension. The DASH eating plan is a healthy eatingplan that has been shown to reduce high blood pressure (hypertension). It may also reduce your riskfor type 2 diabetes, heart disease, and stroke. The DASH eating plan may also help with weight loss. What are tips for following this plan? General guidelines Avoid eating more than 2,300 mg (milligrams) of salt (sodium) a day. If you have hypertension, you may need to reduce your sodium intake to 1,500 mg a day. Limit alcohol intake to no more than 1 drink a day for non women and 2 drinks a day for men. One drink equals 12 oz of beer, 5 oz of wine, or 1 oz of hard liquor. Work with your health care provider to maintain a healthy body weight or to lose weight. Ask what an ideal weight is for you. Get at least 30 minutes of exercise that causes your heart to beat faster (aerobic exercise) most days of the week. Activities may include walking, swimming, or biking. Work with your health care provider or diet and crop nutrition scientist (dietitian) to adjust your eating plan to your individual calorie needs. Reading food labels Check food labels for the amount of sodium per serving. Choose foods with less than 5 percent of the Daily Value of sodium. Generally, foods with less than 300 mg of sodium per serving fit into this eating plan. To find whole grains, look for the word whole as the first word in the ingredient list. Shopping Buy products labeled as low-sodium or no salt added. Buy fresh foods. Avoid canned foods and premade or frozen meals. Cooking Avoid adding salt when cooking. Use salt-free seasonings or herbs instead of table salt or sea salt. Check with your health care provider or pharmacist before using salt substitutes. Do not muir foods. Cook foods using healthy methods such as baking, boiling, grilling, and broiling instead. Cook with heart-healthy oils, such as olive, canola, soybean, or sunflower oil. Meal planning Eat a balanced diet that includes: ? 5 or more servings of fruits and vegetables each day. At each meal, try to fill half of your plate with fruits and vegetables. ? Up to 6 8 servings of whole grains each day. ? Less than 6 oz of lean meat, poultry, or fish each day. A 3-oz serving of meat is about the same size as a deck of cards. One egg equals 1 oz. ? 2 servings of low-fat dairy each day. ? A serving of nuts, seeds, or beans 5 times each week. ? Heart-healthy fats. Healthy fats called [place]-3 fatty acids are found in foods such as flaxseeds and coldwater fish, like sardines, salmon, and mackerel. Limit how much you eat of the following: ? Canned or prepackaged foods. ? Food that is high in trans fat, such as fried foods. ? Food that is high in saturated fat, such as fatty meat. ? Sweets, desserts, sugary drinks, and other foods with added sugar. ? Full-fat dairy products. Do not salt foods before eating. Try to eat at least 2 vegetarian meals each week. Eat more home-cooked food and less restaurant, buffet, and fast food. When eating at a restaurant, ask that your food be prepared with less salt or no salt, if possible. What foods are recommended? The items listed may not be a complete list. Talk with your dietitian about what dietary choices are best for you. Grains Whole-grain or whole-wheat bread. Whole-grain or whole-wheat pasta. Brown rice. Oatmeal. Quinoa. Bulgur. Whole-grain and low-sodium cereals. Alyhsa bread. Low- fat, low-sodium crackers. Whole-wheat flour tortillas. Vegetables Fresh or frozen vegetables (raw, steamed, roasted, or grilled). Low-sodium or reduced-sodium tomatoand vegetable juice. Low-sodium or reduced-sodium tomato sauce and tomato paste. Low-sodium or reduced-sodium canned vegetables. Fruits All fresh, dried, or frozen fruit. Canned fruit in natural juice (without added sugar). Meat and other protein foods Skinless chicken or turkey. Ground chicken or turkey. Pork with fat trimmed off. Fish and seafood. Egg whites. Dried beans, peas, or lentils. Unsalted nuts, nut butters, and seeds. Unsalted canned beans. Lean cuts of beef with fat trimmed off. Low-sodium, lean deli meat. Dairy Low-fat (1%) or fat-free (skim) milk. Fat-free, low-fat, or reduced-fat cheeses. Nonfat, low-sodiumricotta or cottage cheese. Low-fat or nonfat yogurt. Low-fat, low-sodium cheese. Fats and oils Soft margarine without trans fats. Vegetable oil. Low-fat, reduced-fat, or light mayonnaise and salad dressings (reduced-sodium). Canola, safflower, olive, soybean, and sunflower oils. Avocado. Seasoning and other foods Herbs. Spices. Seasoning mixes without salt. Unsalted popcorn and pretzels. Fat- free sweets. What foods are not recommended? The items listed may not be a complete list. Talk with your dietitian about what dietary choices are best for you. Grains Baked goods made with fat, such as croissants, muffins, or some breads. Dry pasta or rice meal packs. Vegetables Creamed or fried vegetables. Vegetables in a cheese sauce. Regular canned vegetables (not low-sodium or reduced-sodium). Regular canned tomato sauce and paste (not low-sodium or reduced-sodium). Regular tomato and vegetable juice (not low-sodium or reduced-sodium). Pickles. Olives. Fruits Canned fruit in a light or heavy syrup. Fried fruit. Fruit in cream or butter sauce. Meat and other protein foods Fatty cuts of meat. Ribs. Fried meat. Wooten. Sausage. Bologna and other processed lunch meats. Salami. Fatback. Hotdogs. Bratwurst. Salted nuts and seeds. Canned beans with added salt. Canned or smoked fish. Whole eggs or egg yolks. Chicken or turkey with skin. Dairy Whole or 2% milk, cream, and [id number]. Whole or full-fat cream cheese. Whole-fat or sweetened yogurt. Full-fat cheese. Nondairy creamers. Whipped toppings. Processed cheese and cheese spreads. Fats and oils Butter. Stick margarine. Lard. Shortening. Ghee. Wooten fat. Tropical oils, such as coconut, palm kernel, or palm oil. Seasoning and other foods Salted popcorn and pretzels. Onion salt, garlic salt, seasoned salt, table salt, and sea salt. Worcestershire sauce. Tartar sauce. Barbecue sauce. Teriyaki sauce. Soy sauce, including reduced-sodium.Steak sauce. Canned and packaged gravies. Fish sauce. Oyster sauce. Cocktail sauce. Horseradish that you find on the shelf. Ketchup. Mustard. Meat flavorings and tenderizers. Bouillon cubes. Hot sauce and Tabasco sauce. Premade or packaged marinades. Premade or packaged taco seasonings. Relishes. Regular salad dressings. Where to find more information: National Heart, Lung, and Blood [place]: www.nhlbi.nih.gov [place] [employer]: www.heart.org Summary The DASH eating plan is a healthy eating plan that has been shown to reduce high blood pressure (hypertension). It may also reduce your risk for type 2 diabetes, heart disease, and stroke. With the DASH eating plan, you should limit salt (sodium) intake to 2,300 mg a day. If you have hypertension, you may need to reduce your sodium intake to 1,500 mg a day. When on the DASH eating plan, aim to eat more fresh fruits and vegetables, whole grains, lean proteins, low-fat dairy, and heart-healthy fats. Work with your health care provider or diet and crop nutrition scientist (dietitian) to adjust your eating plan to your individual calorie needs. This information is not intended to replace advice given to you by your health care provider. Make sure you discuss any questions you have with your health care provider. Document Released: 07/28/2012 Document Revised: 07/22/2018 Document Reviewed: 08/02/2017 [employer] Patient Education 2020 [employer] Cellulitis, Adult Cellulitis is a skin infection. The infected area is usually warm, red, swollen, and tender. This condition occurs most often in the arms and lower legs. The infection can travel to the muscles, blood, and underlying tissue and become serious. It is very important to get treated for this condition. What are the causes? Cellulitis is caused by bacteria. The bacteria enter through a break in the skin, such as a cut, burn, insect bite, open sore, or crack. What increases the risk? This condition is more likely to occur in people who: Have a weak body defense system (immune system). Have open wounds on the skin, such as cuts, arias, bites, and scrapes. Bacteria can enter the body through these open wounds. Are older than 60 years of age. Have diabetes. Have a type of long-lasting (chronic) liver disease (cirrhosis) or kidney disease. Are obese. Have a skin condition such as: ? Itchy rash (eczema). ? Slow movement of blood in the veins (venous stasis). ? Fluid buildup below the skin (edema). Have had radiation therapy. Use IV drugs. What are the signs or symptoms? Symptoms of this condition include: Redness, streaking, or spotting on the skin. Swollen area of the skin. Tenderness or pain when an area of the skin is touched. Warm skin. A fever. Chills. Blisters. How is this diagnosed? This condition is diagnosed based on a medical history and physical exam. You may also have tests, including: Blood tests. Imaging tests. How is this treated? Treatment for this condition may include: Medicines, such as antibiotic medicines or medicines to treat allergies (antihistamines). Supportive care, such as rest and application of cold or warm cloths (compresses) to the skin. Hospital care, if the condition is severe. The infection usually starts to get better within 1 2 days of treatment. Follow these instructions at home: Medicines Take ernw-[id number]-[id number] and prescription medicines only as told by your health care provider. If you were prescribed an antibiotic medicine, take it as told by your health care provider. Do notstop taking the antibiotic even if you start to feel better. General instructions Drink enough fluid to keep your urine pale yellow. Do not touch or rub the infected area. Raise (elevate) the infected area above the level of your heart while you are sitting or lying down. Apply warm or cold compresses to the affected area as told by your health care provider. Keep all follow-up visits as told by your health care provider. This is important. These visits letyour health care provider make sure a more serious infection is not developing. Contact a health care provider if: You have a fever. Your symptoms do not begin to improve within 1 2 days of starting treatment. Your bone or joint underneath the infected area becomes painful after the skin has healed. Your infection returns in the same area or another area. You notice a swollen bump in the infected area. You develop new symptoms. You have a general ill feeling (malaise) with muscle aches and pains. Get help right away if: Your symptoms get worse. You feel very sleepy. You develop vomiting or diarrhea that persists. You notice red streaks coming from the infected area. Your red area gets larger or turns dark in color. These symptoms may represent a serious problem that is an emergency. Do not wait to see if the symptoms will go away. Get medical help right away. Call your local emergency services (911 in the [place] Do not drive yourself to the hospital. Summary Cellulitis is a skin infection. This condition occurs most often in the arms and lower legs. Treatment for this condition may include medicines, such as antibiotic medicines or antihistamines. Take bkvy-mie-groanvl and prescription medicines only as told by your health care provider. If you were prescribed an antibiotic medicine, do not stop taking the antibiotic even if you start to feel better. Contact a health care provider if your symptoms do not begin to improve within 1 2 days of startingtreatment or your symptoms get worse. Keep all follow-up visits as told by your health care provider. This is important. These visits letyour health care provider make sure that a more serious infection is not developing. This information is not intended to replace advice given to you by your health care provider. Make sure you discuss any questions you have with your health care provider. Document Released: 05/19/2006 Document Revised: 12/29/2018 Document Reviewed: 12/29/2018 [employer] Patient Education 2020 [employer] Heart Attack A heart attack occurs when blood and oxygen supply to the heart is cut off. A heart attack causes damage to the heart that cannot be fixed. A heart attack is also called a myocardial infarction, or NV. If you think you are having a heart attack, do not wait to see if the symptoms will go away. Get medical help right away. What are the causes? This condition may be caused by: A fatty substance (plaque) in the blood vessels (arteries). This can block the flow of blood to theheart. A blood clot in the blood vessels that go to the heart. The blood clot blocks blood flow. Low blood pressure. An abnormal heartbeat. Some diseases, such as problems in red blood cells (anemia)orproblems in breathing (respiratory failure). Tightening (spasm) of a blood vessel that cuts off blood to the heart. A tear in a blood vessel of the heart. High blood pressure. What increases the risk? The following factors may make you more likely to develop this condition: Aging. The older you are, the higher your risk. Having a personal or family history of chest pain, heart attack, stroke, or narrowing of the arteries in the legs, arms, head, or stomach (peripheral artery disease). Being male. Smoking. Not getting regular exercise. Being overweight or obese. Having high blood pressure. Having high cholesterol. Having diabetes. Drinking too much alcohol. Using illegal drugs, such as cocaine or methamphetamine. What are the signs or symptoms? Symptoms of this condition include: Chest pain. It may feel like: ? Crushing or squeezing. ? Tightness, pressure, fullness, or heaviness. Pain in the arm, neck, jaw, back, or upper body. Shortness of breath. Heartburn. Upset stomach (indigestion). Feeling like you may vomit (nauseous). Cold sweats. Feeling tired. Sudden light-headedness. How is this treated? A heart attack must be treated as soon as possible. Treatment may include: Medicines to: ? Break up or dissolve blood clots. ? Thin blood and help prevent blood clots. ? Treat blood pressure. ? Improve blood flow to the heart. ? Reduce pain. ? Reduce cholesterol. Procedures to widen a blocked artery and keep it open. Open heart surgery. Receiving oxygen. Making your heart strong again (cardiac rehabilitation) through exercise, education, and counseling. Follow these instructions at home: Medicines Take tkni-wcp-sirgvxr and prescription medicines only as told by your doctor. You may need to take medicine: ? To keep your blood from clotting too easily. ? To control blood pressure. ? To lower cholesterol. ? To control heart rhythms. Do not take these medicines unless your doctor says it is okay: ? NSAIDs, such as ibuprofen. ? Supplements that have vitamin A, vitamin E, or both. ? Hormone replacement therapy that has estrogen with or without progestin. Lifestyle Do not use any products that have nicotine or tobacco, such as cigarettes, e- cigarettes, and chewing tobacco. If you need help quitting, ask your doctor. Avoid secondhand smoke. Exercise regularly. Ask your doctor about a cardiac rehab program. Eat heart-healthy foods. Your doctor will tell you what foods to eat. Stay at a healthy weight. Lower your stress level. Do not use illegal drugs. Alcohol use Do not drink alcohol if: ? Your doctor tells you not to drink. ? You are , may be , or are planning to become . If you drink alcohol: ? Limit how much you use to: ? 0 1 drink a day for women. ? 0 2 drinks a day for men. ? Know how much alcohol is in your drink. In the [place] one drink equals one 12 oz bottle of beer (355mL), one 5 oz glass of wine (148 mL), or one 1 oz glass of hard liquor (44 mL). General instructions Work with your doctor to treat other problems you may have, such as diabetes or high blood pressure. Get screened for depression. Get treatment if needed. Keep your vaccines up to date. Get the flu shot (influenza vaccine) every year. Keep all follow-up visits as told by your doctor. This is important. Contact a doctor if: You feel very sad. You have trouble doing your daily activities. Get help right away if: You have sudden, unexplained discomfort in your chest, arms, back, neck, jaw, or upper body. You have shortness of breath. You have sudden sweating or clammy skin. You feel like you may vomit. You vomit. You feel tired or weak. You get light-headed or dizzy. You feel your heart beating fast. You feel your heart skipping beats. You have blood pressure that is higher than 180/120. These symptoms may be an emergency. Do not wait to see if the symptoms will go away. Get medical help right away. Call your local emergency services (911 in the [place] Do not drive yourself to the hospital. Summary A heart attack occurs when blood and oxygen supply to the heart is cut off. Do not take NSAIDs unless your doctor says it is okay. Do not smoke. Avoid secondhand smoke. Exercise regularly. Ask your doctor about a cardiac rehab program. This information is not intended to replace advice given to you by your health care provider. Make sure you discuss any questions you have with your health care provider. Document Released: 02/07/2013 Document Revised: 11/20/2019 Document Reviewed: 11/20/2019 [employer] Patient Education 2020 [email or web address]. Additional Information VACCINATE! IT SAVES LIVES! Members of the community who have not yet received the COVID-19 vaccine and would like to receive it can visit one of [facility] vaccine clinics. There are many vaccine clinic locations within the [facility]. For locations and available times, please visit [email or web address].[email or web address] It is important to note that some COVID mobile vaccine clinics are held outdoors and may be canceled in rainy or stormy conditions. To learn more about pediatric vaccinations (ages 5-11), we invite you to visit the [facility] webpage. [email or web address] learn more about the COVID-19 vaccine, we invite you to visit the CDC website for a list of frequently asked questions.https://www.cdc.gov/coronavirus/2019-ncov/vaccines/faq.html [facility] Patient Portal Access Instructions: Stay connected with your healthcare team and access your personal medical information anytime with the [facility] Patient Portal. Please follow the directions below to create your [facility] account: 1.Access the email account you provided upon registration to the hospital/physician office.2.Look for an invitation email from [facility].3.Open the email and access the invitation link: AcceptInvitation to [facility].4.Fill in the required carroll to create your account. To access your account, visit [employer]. Click the blue button labeled Access Patient Portal and then log in with the username and password that you created in the steps above. You will be able to view your test results, lab results, a summary of your visits, upcoming appointments and more. There is also a convenient messaging option where you can send secure messages to your p [employer]. In addition, you will have the ability to download any documents or summaries to your computer and/or send the information securely to a physician. Remember that your healthcare information is confidential, so carefully consider who you will allowto register on the [facility] Patient Portal for access to your information. You can also access the [facility] Patient Portal on the [employer] Anywhere ricardo. Simply click on Patient Portal and then log into your account. If you would like to receive a full copy of your medical records, please contact the [facility] Medical Records Department by calling [phone], Wednesday through Wednesday between 8 a.m. and 4:30 p.m. HOW TO SAFELY DISPOSE OF PRESCRIPTION MEDICATIONS Please use one of the following methods to safely dispose of your unused medications. 1.Use a drug disposal kit: the drug disposal pouch allows you to safely discard your old and unuseddrugs. Ask your nurse to give you one when you are discharged.2.Visit a local take-back location: Many local pharmacies and police departments have programs that collect old and unwanted prescriptiondrugs. Call your local pharmacy or go to http://[employer].Endra/2C3Je0p to find one close to you.3.Make use of household items: Use cat litter or old coffee grounds to dispose medications if other options arenot available. Mix your drugs with these household products, seal them in an airtight container andthrow it into the garbage. Call [facility]: [phone] to be sure your drugs can be disposed of in this way. Some medicines may require a different approach.4.Never flush your medications down the toilet. IF YOU HAVE BEEN PRESCRIBED AN OPIOID FOR PAIN If you have been prescribed an opioid (such as hydrocodone, oxycodone or morphine), it is critical to understand the possible side effects and risks of opioid pain medications. Even when taken as directed, opioids can have several side effects including: Tolerance, meaning you might need to take more of a medication for the same pain relief. Nausea, vomiting and/or constipation. Sleepiness, dizziness, dry mouth, confusion, depression or itching. Physical dependence, meaning you have withdrawal symptoms when a medicat (more content not included)... [id number] Note Date of Service 01/07/2025 Chief Complaint Anemia Subjective This is a split/shared visit with Dr. Pierson. Pt is a 74-year-old male with a history of CAD, ESRD on HD MWF, PVD on Plavix, seizure disorder on Keppra, hypothyroid, and hypertension who presented to the emergency department by her primary care physician after she had an abnormal outpatient BMP and elevated troponin. She was admitted to the cardiology service underwent a stress test which was unremarkable the cardiology service is consulting the hospitalist for medical management of her chronic conditions such as her anemia, hypothyroid, and cellulitis. Pt states chest pain resolved and SOB improved. No complaints. Objective Vitals and Measurements T: 36.4 C (Oral) TMIN: 35.5 C (Skin) TMAX: 37.1 C (Oral) HR: 76 (Monitored) RR: 18 BP: 102/58 SpO2:95% WT: 81.0 kg Intake and Output 7AM Yesterday to 7AM Today Intake and Output (Last 24 hours) Intake Oral Intake 240.00 Output Hemodialysis 1800.00 Stool Count 1.00 Urine Count 3.00 Total Summary Total Intake 240.00 Total Output 1800.00 Fluid Balance -1560.00 Physical Exam General: Alert and oriented x 3, NAD Head: Normocephalic, mmm, sclera nonicteric Cardiovascular: Normal rate and rhythm, no murmur, - edema Respiratory: Lungs clear to auscultation bilaterally, easy Abdomen: soft and non-distended, bowel sounds active all 4 quadrants Neurological: Moving all 4 extremities, speech clear Psychological: normal affect, cooperative, good eye contact Weight Dosing Weight: 81 kg (01/06/25) Dosing Weight: 84.3 kg (01/06/25) Medications Medications (30) Active Scheduled: (15) acetaminophen-HYDROcodone 325-5 mg tablet 1 tab(s), Oral, BID cephalexin monohydrate 500 mg Capsule 500 mg 1 cap(s), Oral, q12h clopidogrel 75 mg Tablet 75 mg 1 tab(s), Oral, qDay furosemide 40 mg tablet 40 mg 1 tab(s), Oral, qDay heparin 5,000 units/mL (1 mL) vial 5,000 unit(s) 1 mL, Subcutaneous, q12h levETIRAcetam 500 mg tablet 500 mg 1 tab(s), Oral, BID levothyroxine 50 mcg tablet 50 mcg 1 tab(s), Oral, qDay metoprolol succinate 25 mg ER tablet 25 mg 1 tab(s), Oral, qDay montelukast 10 mg Tablet 10 mg 1 tab(s), Oral, qPM omeprazole [address] capsule 40 mg 1 cap(s), Oral, BID ranolazine 500 mg ER Tablet 500 mg 1 tab(s), Oral, BID rosuvastatin 20 mg tablet 40 mg 2 tab(s), Oral, Daily sevelamer carbonate 800 mg tablet 800 mg 1 tab(s), Oral, TID sodium ferric gluconate complex 250 mg 20 mL, IV Piggyback, Once sulfamethoxazole-trimethoprim 400 mg-80 mg Tablet 1 tab(s), Oral, q24h Continuous: (0) PRN: (15) acetaminophen 325 mg Tablet 650 mg 2 tab(s), Oral, q4h albuterol - ipratropium 2.5 mg-0.5 mg/3 mL Inhal Barbara UD 3 mL, Inhalation, q4hRT albuterol 0.083% Soln UD (2.5mg/3 mL) 2.5 mg 3 mL, Inhalation, q6h dextrose 50% Solution Disp syringe 50 mL 25 gram(s) 50 mL, IV Push, AsDirected magnesium sulfate 4 gram(s)/100mL PMX 4 g 100 mL, IV Piggyback, AsDirected magnesium sulfate 50% (500mg/mL) 6 g 12 mL, IV Piggyback, AsDirected magnesium sulfate PMX 2 g 50 mL, IV Piggyback, AsDirected melatonin 3 mg tablet 3 mg 1 tab(s), Oral, qHS nitroglycerin 0.4 mg Tablet (25/btl) 0.4 mg 1 tab(s), Sublingual, q5min polyethylene glycol 3350 - UD packet 17 gram(s) 15 mL, Oral, qDay polyethylene glycol 3350 - UD packet 17 gram(s) 15 mL, Oral, qDay potassium chloride (PMX) 20 mEq/100 mL 20 mEq 100 mL, IV Piggyback, AsDirected potassium chloride 20 mEq ER tablet 20 mEq 1 tab(s), Oral, AsDirected potassium chloride 20 mEq ER tablet 40 mEq 2 tab(s), Oral, AsDirected potassium chloride 20 mEq ER tablet 40 mEq 2 tab(s), Oral, AsDirected Lab Results 01/07 07:59 WBC: 6.9 Hgb: 7.8 L Hct: 23.5 L Platelet: 199 Neutrophil %: 64.0 Glucose Level: 86 Glucose Level: 86 Sodium Level: 136 Sodium Level: 136 Potassium Level: 4.3 Potassium Level: 4.3 BUN: 43.0 H BUN: 43.0 H Creatinine Lvl (s): 5.33 H Creatinine Lvl (s): 5.33 H 01/06 14:19 WBC: 7.9 Hgb: 7.9 L Hct: 23.5 L Platelet: 222 Neutrophil %: 73.2 01/06 08:08 WBC: 7.1 Hgb: 7.4 L Hct: 22.4 L Platelet: 224 Neutrophil %: 64.8 Glucose Level: 86 Sodium Level: 137 Potassium Level: 3.9 BUN: 30.0 H Creatinine Lvl (s): 4.12 H EKG EKG - Completed -- 01/06/25 4:39:00 EDT Assessment/Plan CAD elevated troponins End-stage renal disease Acute on chronic anemia Chronic wounds Hypothyroid Seizure disorder Hypertension PVD CAD/Troponin-stress test negative, management per primary ESRD-UF yesterday. Management per nephrology, plan to resume normal MWF dialysis. Epogen with dialysis Hgb stable, no active bleeding. Multifactorial in the setting of COMPA and CKD. Will give IV iron x 1and recommend epogen with dialysis Continue antibiotics as previously prescribed From a medical standpoint the patient's chronic conditions appear to be at baseline without acute issues. Will sign off and see PRN throughout the duration of admission. Please contact us should further medical evaluation be necessary. Thank you for requesting our participation with care of your patient. Digitally Signed by MICHAEL TORRES on 01/07/2025 12:33 PM [id number] Nephrology Progress note Objective Vitals and Measurements T: 36.4 C (Oral) TMIN: 35.5 C (Skin) TMAX: 37.1 C (Oral) HR: 74 (Monitored) RR: 16 BP: 102/58 SpO2:97% WT: 81.0 kg Intake and Output 7AM Yesterday to 7AM Today Intake and Output (Last 24 hours) Intake Oral Intake 240.00 Output Hemodialysis 1800.00 Stool Count 1.00 Urine Count 3.00 Total Summary Total Intake 240.00 Total Output 1800.00 Fluid Balance -1560.00 Physical Exam General: No distress on nasal cannula oxygen HEENT: Mucosa was moist, sclera anicteric, JVD is present Lungs: Clear bilaterally with no crackles wheezes or rhonchi Heart: Regular with no murmurs rubs or gallops Access: Right arm AV fistula with positive bruit and thrill. Abdomen: Positive bowel sounds, soft, no palpable masses Extremities: 1+ lower extremity edema, pulses 2+ in all 4 extremities Skin: No rashes, normal turgor Weight Dosing Weight: 81 kg (01/06/25) Dosing Weight: 84.3 kg (01/06/25) Medications Medications (30) Active Scheduled: (15) acetaminophen-HYDROcodone 325-5 mg tablet 1 tab(s), Oral, BID cephalexin monohydrate 500 mg Capsule 500 mg 1 cap(s), Oral, q12h clopidogrel 75 mg Tablet 75 mg 1 tab(s), Oral, qDay furosemide 40 mg tablet 40 mg 1 tab(s), Oral, qDay heparin 5,000 units/mL (1 mL) vial 5,000 unit(s) 1 mL, Subcutaneous, q12h levETIRAcetam 500 mg tablet 500 mg 1 tab(s), Oral, BID levothyroxine 50 mcg tablet 50 mcg 1 tab(s), Oral, qDay metoprolol succinate 25 mg ER tablet 25 mg 1 tab(s), Oral, qDay montelukast 10 mg Tablet 10 mg 1 tab(s), Oral, qPM omeprazole [address] capsule 40 mg 1 cap(s), Oral, BID ranolazine 500 mg ER Tablet 500 mg 1 tab(s), Oral, BID rosuvastatin 20 mg tablet 40 mg 2 tab(s), Oral, Daily sevelamer carbonate 800 mg tablet 800 mg 1 tab(s), Oral, TID sodium ferric gluconate complex 250 mg, IV Piggyback, Once sulfamethoxazole-trimethoprim 400 mg-80 mg Tablet 1 tab(s), Oral, q24h Continuous: (0) PRN: (15) acetaminophen 325 mg Tablet 650 mg 2 tab(s), Oral, q4h albuterol - ipratropium 2.5 mg-0.5 mg/3 mL Inhal Barbara UD 3 mL, Inhalation, q4hRT albuterol 0.083% Soln UD (2.5mg/3 mL) 2.5 mg 3 mL, Inhalation, q6h dextrose 50% Solution Disp syringe 50 mL 25 gram(s) 50 mL, IV Push, AsDirected magnesium sulfate 4 gram(s)/100mL PMX 4 g 100 mL, IV Piggyback, AsDirected magnesium sulfate 50% (500mg/mL) 6 g 12 mL, IV Piggyback, AsDirected magnesium sulfate PMX 2 g 50 mL, IV Piggyback, AsDirected melatonin 3 mg tablet 3 mg 1 tab(s), Oral, qHS nitroglycerin 0.4 mg Tablet (25/btl) 0.4 mg 1 tab(s), Sublingual, q5min polyethylene glycol 3350 - UD packet 17 gram(s) 15 mL, Oral, qDay polyethylene glycol 3350 - UD packet 17 gram(s) 15 mL, Oral, qDay potassium chloride (PMX) 20 mEq/100 mL 20 mEq 100 mL, IV Piggyback, AsDirected potassium chloride 20 mEq ER tablet 20 mEq 1 tab(s), Oral, AsDirected potassium chloride 20 mEq ER tablet 40 mEq 2 tab(s), Oral, AsDirected potassium chloride 20 mEq ER tablet 40 mEq 2 tab(s), Oral, AsDirected Lab Results 01/07 07:59 WBC: 6.9 Hgb: 7.8 L Hgb: 7.8 L Hct: 23.5 L Hct: 23.5 L Platelet: 199 Platelet: 199 Neutrophil %: 64.0 Neutrophil %: 64.0 Glucose Level: 86 Glucose Level: 86 Glucose Level: 86 Glucose Level: 86 Sodium Level: 136 Sodium Level: 136 Sodium Level: 136 Sodium Level: 136 Potassium Level: 4.3 Potassium Level: 4.3 Potassium Level: 4.3 BUN: 43.0 H BUN: 43.0 H BUN: 43.0 H BUN: 43.0 H Creatinine Lvl (s): 5.33 H Creatinine Lvl (s): 5.33 H Creatinine Lvl (s): 5.33 H 01/06 14:19 WBC: 7.9 Hgb: 7.9 L Hct: 23.5 L Platelet: 222 Neutrophil %: 73.2 01/06 08:08 WBC: 7.1 Hgb: 7.4 L Hct: 22.4 L Platelet: 224 Neutrophil %: 64.8 Glucose Level: 86 Sodium Level: 137 Potassium Level: 3.9 BUN: 30.0 H Creatinine Lvl (s): 4.12 H EKG EKG - Completed -- 01/06/25 4:39:00 EDT Assessment/Plan 1. End-stage renal disease: Typical dialysis is Wednesday. Did have her normal treatment Wednesday. Yesterday did extra isolated ultrafiltration for 2 L fluid removal. Will be back on schedule for dialysis routine tomorrow. AV fistula is patent. 2. Chest pain with elevated troponin: Given history of coronary artery disease. Patient perform nuclear medicine perfusion scan. Report suggests no inducible ischemia. 3. Anemia: Dose Epogen with dialysis. 4. Heart failure with preserved ejection fraction: Patient has chronic edema. Yesterday had extra isolated ultrafiltration treatments for volume. Less short of breath today. Will need to adjust dry weight as an outpatient. Digitally Signed by DARCIE MCDONALD MD on 01/07/2025 11:39 AM [id number] History and physical note Date of Service 01/06/25 History of Present Illness Patient is a 74-year-old female, uses a mobility scooter, lives with family, with medical history significant for CAD status post PCI to left circumflex March 2006, PCI to RCA July 2006 and mostrecent heart cath in April 2021 that revealed patent stents and no other significant disease], h ypercholesterolemia, history of PVD status post bilateral common iliac artery stents in 2010, CKD on dialysis Wednesday, hypertension, history of normocytic anemia, seizures on [facility] who presents as a transfer for evaluation of chest pain. US aorta 12/05/24- no aortic aneursym mild left ICA stenosis EKG shows sinus rhythm without any significant ischemic changes ECHO 2021 Summary: 1. Left ventricle: The cavity size is normal. Wall thickness is normal. Systolic function is normal. The estimated ejection fraction is 55-60%. Wall motion is normal; there are no regional wall motion abnormalities. 2. Aortic valve: Thickening, consistent with sclerosis. 3. Mitral valve: There is mild, 1+ regurgitation. 4. Left atrium: The atrium is mildly dilated. 5. Right ventricle: The RV systolic pressure by Doppler is 27 mm Hg. 6. Pulmonic valve: There is trivial regurgitation. 7. Tricuspid valve: There is trivial regurgitation. CATH 2020 SUMMARY: 1. Left ventricle: Systolic function is normal. The estimated ejection fraction is 50-55%. Wall motion is normal; there are no regional wall motion abnormalities. 2. Left main: The vessel is normal. 3. LAD: The proximal vessel is normal-sized and moderately calcified. There is mild diffuse disease. The mid vessel is normal-sized. There is mild diffuse disease. 4. 2nd diagonal: Ostial lesion: There is a 50% stenosis. 5. Left circumflex: Prior intervention: stent, in the mid left circumflex. The intervened segment is patent. 6. Right coronary: Prior intervention: stent, in the proximal RCA. Proximal vessel lesion: There low diffuse, 30% in-stent recurrent stenosis. IMPRESSIONS: Mild difuse nonobstructive CAD. Patent prior stent involving the RCA with Mild ISR. Patent prior stent involving the distal LCX. patent mid Lcx stent, patent proximal RCA stent with mild ISR, mild diffuse nonobstructive CAD otherwise Review of Systems 12 point ROS negative unless mentioned in HPI Physical Exam Vitals and Measurements T: 36.7 C (Oral) HR: 91 (Monitored) RR: 18 BP: 132/39 SpO2: 94% HT: 162.6 cm WT: 84.3 kg BMI: 31.89 Weight Dosing Weight: 84.3 kg (01/06/25) Constitutional: Oriented to time, place, and person well developed well nourished Cardiovascular: JVD not elevated, S1 S2 present,No added sounds, no leg edema Abdomen: soft nontender Musculoskeletal system: general/bilateral Normal movement of all extremities Neurological: NFND Skin: bilateral LE wounds wrapped Lab Results No 36 Hour Lab Data Assessment/Plan Elevated troponins type II vs type I CAD s/p PCI to left circumflex March 2006, PCI to RCA July 2006 and most recent heart cath in April 2021 that revealed patent stents and no other significant disease] history of PVD status post bilateral common iliac artery stents in 2010 ESRD on dialysis HTN Anemia (baseline around 9-10, baseline was higher around 12 in 2023, follows with heme) Seizures on keppra Patient presents as a transfer for evaluation of chest pain, she uses a mobility scooter hence her ambulation is limited. Has been experiencing some chest tightness a squeezing sensation that radiates up toward her jaw when she walks to the bathroom. She then reported to her PCP who checked her troponins which were abnormal hence she was directed to go to the ER. Currently is not experiencing anychest discomfort. Troponins were checked at [facility] which were 130s then downtrended to 120s. Given flat trend, we will start with Lexiscan stress test for ischemic eval. She is on antibiotics for her lower extremity wounds. Will need to closely monitor Hb trends. She has no active bleeding, anemia could also be contributing to her symptoms, currently around 7-8. Previously was as high as 12 in 2023. No active bleeding, her ferritin levels have always been elevated. Repeat iron studies and CBC in PM. Type and screen ordered as well. Problem List/Past Medical History Ongoing Abscess of external ear Acute sinusitis Aftercare following surgery ANDRIY (acute kidney injury) Angina Arm skin lesion, right Arthritis Asthma At risk for falls B12 deficiency Back pain Callaway's esophagus Bilateral leg cramps CAD (coronary artery disease) CAD (coronary artery disease) Cellulitis Chronic anticoagulation Chronic constipation Chronic low back pain CKD (chronic kidney disease) requiring chronic dialysis Community acquired pneumonia Diverticulosis Draining postoperative wound Elevated ferritin Elevated sed rate Empty sella Generalized weakness GERD (gastroesophageal reflux disease) Glasses H/O adrenal insufficiency Has Numbness Head injury Hematoma of leg History of left heart catheterization Hypercalcemia Hypercholesterolemia Hypertension Hypokalemia Hypothyroidism Infected skin tear Itching of skin Laceration of face Left lower lobe pneumonia Leg pain Lower extremity weakness Lumbar herniated disc MRSA (methicillin resistant Staphylococcus aureus) Multiple wounds of skin MVP (mitral valve prolapse) Myalgia Neuropathy involving both lower extremities Osteoporosis Osteoporosis Peripheral edema Peripheral vascular disease PTCA - Percutaneous transluminal coronary angioplasty Purpura PVD (peripheral vascular disease) Renal failure Rheumatoid arthritis Seizure disorder Severe anemia Shortness of breath Skin lesion Skin tear of lower leg without complication Skin tear of right lower leg without complication SOBOE (shortness of breath on exertion) Spinal stenosis Status post arterial stent Tear of skin of multiple sites of left lower extremity Unsteady gait Vitamin D deficiency Weight gain Well adult exam Historical Anemia Anemia Colon polyps HTN (hypertension) NV (myocardial infarction) Pneumonia Procedure/Surgical History Fistula: 08/06/22 Echocardiogram: 02/27/22 Echocardiogram: 04/24/21 Echocardiogram: 03/15/20 Ankle brachial pressure index: 01/24/20 Echocardiogram: 02/14/18 Echocardiogram: 03/08/17 BRANDO - Arterial pressure index: 11/21/15 Cardiac catheterization: 2014 Bunionectomy: 08/31/14 Cardiac catheterization: 2013 Foot: 06/02/13 MUGA scan: 08/02/12 Fusion of lumbar spine: 08/05/10 Carpal tunnel release: 1994 Hysterectomy: 1979 Discectomy History of hemiarthroplasty of right hip Arthroplasty of right shoulder Coronary artery stent Esophagogastroduodenoscopy Lumpectomy of breast Medications Home Medications (23) Active acetaminophen-hydrocodone 325 mg-5 mg oral tablet 1 tab(s), Oral, BID albuterol 2.5 mg/3 mL (0.083%) inhalation solution 2.5 mg = 3 mL, PRN, Inhalation, q6h Bactrim DS 800 mg-160 mg oral tablet 1 tab(s), Oral, BID cephalexin 500 mg oral capsule 500 mg = 1 cap(s), Oral, TID DULoxetine 30 mg oral delayed release capsule 30 mg = 1 cap(s), Oral, BID furosemide 40 mg oral tablet 40 mg = 1 tab(s), Oral, qDay hydrOXYzine hydrochloride 25 mg oral tablet 25 mg = 1 tab(s), Oral, QID levETIRAcetam 500 mg oral tablet 500 mg = 1 tab(s), Oral, BID levothyroxine 50 mcg (0.05 mg) oral tablet 50 mcg = 1 tab(s), Oral, qDay Linzess 290 mcg oral capsule 290 mcg = 1 cap(s), Oral, qDay melatonin 30 mg, Oral, qHS metoprolol succinate 25 mg oral TABLET extended release 25 mg = 1 tab(s), Oral, qDay MiraLax oral powder for reconstitution See Instructions Nitrostat 0.4 mg sublingual tablet 0.4 mg = 1 tab(s), PRN, Sublingual, q5min omeprazole 40 mg oral delayed release capsule 40 mg = 1 cap(s), Oral, BID Plavix 75 mg oral tablet 75 mg = 1 tab(s), Oral, qDay potassium chloride 20 mEq oral tablet, extended release 40 mEq = 2 tab(s), Oral, Sun/Tues/Thurs/Sat Probiotic 1tab, Oral, qDay Ranexa 500 mg oral tablet, extended release 500 mg = 1 tab(s), Oral, BID rosuvastatin 40 mg oral tablet 40 mg = 1 tab(s), Oral, Daily sevelamer carbonate 800 mg oral tablet 800 mg = 1 tab(s), Oral, TID Singulair 10 mg oral tablet 10 mg = 1 tab(s), Oral, qPM Zofran 4 mg oral tablet 4 mg = 1 tab(s), PRN, Oral, q6h Allergies Macrodantin (Moderate) ALFREDO Marksol Unsure Zaroxolyn Unsure colesevelam Unknown metOLazone Unknown nitrofurantoin Unknown pravastatin liver simvastatin Liver traMADol GI upset Social History Smoking Status - 06/05/2017 Never smoker Alcohol - Denies Alcohol Use, 06/05/2017 Use: Never., 03/03/2019 Home/Environment Domestic Concerns: None. Living situation: Home/Independent. 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 Current Home Treatments Nebulizer treatments. Professional Skilled Services or Special Community Resources [facility]. Spouse Name: Fausto. Marital Status: ., 2022 Nutrition/Health Type of diet: Regular. Appetite Good. Eating Difficulties None. Enteral Feedings No. TPN Feedings No. Skin Breakdown No. Caffeine intake amount: 1 serving of tea/day., 11/07/2020 Substance Abuse - Denies Substance Abuse, 06/05/2017 Use: Never., 03/03/2019 Tobacco Nicotine Use: Smoker, current status unknown, Former smoker, quit more than 30 days ago. Type: Cigarettes. Number of years: 11. Stopped at age: 48 Years., 01/03/2025 Family History Asthma: Negative: Mother, Father, Sister, Brother, Daughter and Son. Cancer: Mother, Father and Son.Negative: Sister and Brother. Congestive cardiac failure: Father. Coronary artery disease: Mother. Diabetes: Son. Diabetes mellitus: Brother.Negative: Mother, Father, Sister, Daughter and Son. HIV: Negative: Mother, Father, Sister, Brother, Daughter and Son. HTN - Hypertension: Father.Negative: Mother, Sister, Brother, Daughter and Son. Heart disease: Father.Negative: Mother, Sister, Brother, Daughter and Son. Hepatitis: Negative: Mother, Father, Sister, Brother, Daughter and Son. Hyperchloremia: Father.Negative: Mother, Sister, Brother, Daughter and Son. NV - myocardial infarction: Mother (Dx at 50). Mental illness: Negative: Mother, Father, Sister, Brother, Daughter and Son. Seizure: Negative: Mother, Father, Sister, Brother, Daughter and Son. Stroke: Negative: Mother, Father, Sister, Brother, Daughter and Son. TB - Tuberculosis: Negative: Mother, Father, Sister, Brother, Daughter and Son. Health Status Family Member(s) Immunizations pneumococcal 13-valent conjugate vaccine: 0 unknown unit (03/04/20) SARS-CoV-2 (COVID-19) Ad26 vaccine: 0 unknown unit (02/11/21) tetanus-diphtheria toxoids: 0 unknown unit (03/07/11) tetanus/diphth/pertuss (Tdap) adult/adol: 0.5 unknown unit (03/16/23) tetanus/diphth/pertuss (Tdap) adult/adol: 0.5 unknown unit (01/19/22) zoster vaccine live: 0 unknown unit (03/04/20) zoster vaccine, inactivated: 0 unknown unit (06/28/20) Code Status No qualifying data available. Digitally Signed by ALCON JEROME MD on 01/06/2025 10:13 AM [id number] Note Date of Service 01/06/2025 Reason for Consultation medical management of hypothyroid, anemia. cellulitis, chest pain Referring Physician Dr Minor History of Present Illness 74-year-old male with a history of CAD, ESRD on HD MWF, PVD on Plavix, seizure disorder on Keppra, hypothyroid, hypertension, presented was advised to go to the emergency department by her primary care physician after she had an abnormal outpatient BMP and elevated troponin she was admitted to the cardiology service underwent a stress test which was unremarkable the cardiology service is consulting the hospitalist for medical management of her chronic conditions such as her anemia, hypothyroid,cellulitis Workup significant for anemia with an H&H of 7.4/ was 8.7/ and before that however has been as low as 7.5/ in August BMP consistent with known ESRD creatinine of 4 BUN of 30 otherwise unremarkable LFTs hypoalbuminemic at 3.0 TSH recently done was 7.6 Free T47.0 Her last echo was reviewed with a normal systolic and diastolic function with a EF of 55% cardiology is repeating her echo which is pending Patient was seen and examined at the bedside Patient has ecchymosis in all 4 of her extremities she has a wound on each of her olmos with the bandaging wrapped she says that she is taking p.o. Keflex and Bactrim by her primary care physician would recommend p.o. Medihoney but no need for escalation of antibiotics does not actually look infected to me Review of Systems All pertinent positive and negative review of systems as per HPI, all other review of systems reviewed and negative Physical Exam Vitals and Measurements T: 36.3 C (Skin) TMIN: 36.3 C (Skin) TMAX: 37.1 C (Oral) HR: 84 (Monitored) RR: 18 BP: 99/57 SpO2: 97% HT: 162.6 cm WT: 81.0 kg BMI: 31.89 Weight Dosing Weight: 81 kg (01/06/25) Dosing Weight: 84.3 kg (01/06/25) GENERAL:Well nourished ; no acute distress. ASSISTIVE DEVICES: None PSYCHIATRIC: appropriate HEENT moist mucous membranes extraocular muscles intact CARDIOVASCULAR: Regular rate, regular rhythm, no murmurs noted. Notrace lower extremity pitting edema. No lymphedema. Dorsalis Pedis pulses+2/4 blaterally . Posterior Tibialis pulses+2/4 bilaterally . RESPIRATORY: Regular rate and depth; no distress, RIGHT lungclear ; LEFT lungclear . Breath soundsnormal . ABDOMEN soft, no guarding, nontender, nondistended, positive bowel sounds, NEURO: No gross deficits DERM: Ecchymosis over all 4 extremities she has wounds over both shins but they do not appear to beinfected Lab Results 01/06 14:19 WBC: 7.9 Hgb: 7.9 L Hct: 23.5 L Platelet: 222 Neutrophil %: 73.2 01/06 08:08 WBC: 7.1 Hgb: 7.4 L Hct: 22.4 L Platelet: 224 Neutrophil %: 64.8 Glucose Level: 86 Sodium Level: 137 Potassium Level: 3.9 BUN: 30.0 H Creatinine Lvl (s): 4.12 H EKG EC01/06/25: SINUS RHYTHM LOW VOLTAGE, PRECORDIAL LEADS ABNORMAL R-WAVE PROGRESSION, EARLY TRANSITION Electronic Signature: BRITTANY LEON MD 01/06/2025 14:46:35 Assessment/Plan Hypothyroidism CAD with elevated troponins management as per primary End-stage renal disease with elevated BNP nephrology on board, on hemodialysis Wednesday Anemia chronic repeat H&H stable can consider outpatient follow-up with GI for elective EGD Chronic wounds recommend [facility] outpatient follow-up with wound care Hypothyroid continue home Synthroid 50 mEq daily follow-up with outpatient primary care physician Free T4 is in the low normal and TSH is in the subclinical hypothyroid level no need to adjust while inpatient Seizure disorder on Keppra chronic stable Hypertension chronic stable PVD on Plavix chronic stable DVT prophylaxis per primary CODE STATUS as per primary Dispo as per primary Problem List/Past Medical History Ongoing Abscess of external ear Acute sinusitis Aftercare following surgery ANDRIY (acute kidney injury) Angina Arm skin lesion, right Arthritis Asthma At risk for falls B12 deficiency Back pain Callaway's esophagus Bilateral leg cramps CAD (coronary artery disease) CAD (coronary artery disease) Cellulitis Chronic anticoagulation Chronic constipation Chronic low back pain CKD (chronic kidney disease) requiring chronic dialysis Community acquired pneumonia Diverticulosis Draining postoperative wound Elevated ferritin Elevated sed rate Empty sella Generalized weakness GERD (gastroesophageal reflux disease) Glasses H/O adrenal insufficiency Has Numbness Head injury Hematoma of leg History of left heart catheterization Hypercalcemia Hypercholesterolemia Hypertension Hypokalemia Hypothyroidism Infected skin tear Itching of skin Laceration of face Left lower lobe pneumonia Leg pain Lower extremity weakness Lumbar herniated disc MRSA (methicillin resistant Staphylococcus aureus) Multiple wounds of skin MVP (mitral valve prolapse) Myalgia Neuropathy involving both lower extremities Osteoporosis Osteoporosis Peripheral edema Peripheral vascular disease PTCA - Percutaneous transluminal coronary angioplasty Purpura PVD (peripheral vascular disease) Renal failure Rheumatoid arthritis Seizure disorder Severe anemia Shortness of breath Skin lesion Skin tear of lower leg without complication Skin tear of right lower leg without complication SOBOE (shortness of breath on exertion) Spinal stenosis Status post arterial stent Tear of skin of multiple sites of left lower extremity Unsteady gait Vitamin D deficiency Weight gain Well adult exam Historical Anemia Anemia Colon polyps HTN (hypertension) NV (myocardial infarction) Pneumonia Procedure/Surgical History Fistula: 08/06/22 Echocardiogram: 02/27/22 Echocardiogram: 04/24/21 Echocardiogram: 03/15/20 Ankle brachial pressure index: 01/24/20 Echocardiogram: 02/14/18 Echocardiogram: 03/08/17 BRANDO - Arterial pressure index: 11/21/15 Cardiac catheterization: 2014 Bunionectomy: 08/31/14 Cardiac catheterization: 2013 Foot: 06/02/13 MUGA scan: 08/02/12 Fusion of lumbar spine: 08/05/10 Carpal tunnel release: 1994 Hysterectomy: 1979 Discectomy History of hemiarthroplasty of right hip Arthroplasty of right shoulder Coronary artery stent Esophagogastroduodenoscopy Lumpectomy of breast Medications Inpatient Albuminar-25 (DIALYSIS), 12.5 gram(s)= 50 mL, IV Piggyback (MED), prep pharm albuterol 2.5 mg/3 mL (0.083%) inhalation solution, 2.5 mg= 3 mL, Inhalation, q6h, PRN Bactrim, 1 tab(s), Oral, q24h cephalexin, 500 mg= 1 cap(s), Oral, q12h Dextrose 50% IV Push, 25 gram(s)= 50 mL, IV Push, AsDirected, PRN DuoNeb, 3 mL, Inhalation, q4hRT, PRN heparin 5000 units/mL injection, 5000 unit(s)= 1 mL, Subcutaneous, q12h Lasix, 40 mg= 1 tab(s), Oral, qDay levETIRAcetam, 500 mg= 1 tab(s), Oral, BID levothyroxine, 50 mcg= 1 tab(s), Oral, qDay magnesium sulfate for IV bolus, 2 gram(s)= 50 mL, IV Piggyback, AsDirected, PRN magnesium sulfate for IV bolus, 4 gram(s)= 100 mL, IV Piggyback, AsDirected, PRN magnesium sulfate for IV bolus melatonin, 3 mg= 1 tab(s), Oral, qHS, PRN metoprolol succinate 25 mg oral TABLET extended release, 25 mg= 1 tab(s), Oral, qDay Miralax Powder Packet, 17 gram(s)= 15 mL, Oral, qDay, PRN Miralax Powder Packet, 17 gram(s)= 15 mL, Oral, qDay, PRN Nitrostat, 0.4 mg= 1 tab(s), Sublingual, q5min, PRN omeprazole, 40 mg= 1 cap(s), Oral, BID Plavix, 75 mg= 1 tab(s), Oral, qDay potassium chloride, 20 mEq= 1 tab(s), Oral, AsDirected, PRN potassium chloride, 40 mEq= 2 tab(s), Oral, AsDirected, PRN potassium chloride, 40 mEq= 2 tab(s), Oral, AsDirected, PRN potassium chloride bolus, 20 mEq= 100 mL, IV Piggyback, AsDirected, PRN Ranexa, 500 mg= 1 tab(s), Oral, BID rosuvastatin, 40 mg= 2 tab(s), Oral, Daily sevelamer carbonate 800 mg oral tablet, 800 mg= 1 tab(s), Oral, TID Singulair, 10 mg= 1 tab(s), Oral, qPM Tylenol, 650 mg= 2 tab(s), Oral, q4h, PRN Home acetaminophen-hydrocodone 325 mg-5 mg oral tablet, 1 tab(s), Oral, BID albuterol 2.5 mg/3 mL (0.083%) inhalation solution, 2.5 mg= 3 mL, Inhalation, q6h, PRN Bactrim DS 800 mg-160 mg oral tablet, 1 tab(s), Oral, BID cephalexin 500 mg oral capsule, 500 mg= 1 cap(s), Oral, TID DULoxetine 30 mg oral delayed release capsule, 30 mg= 1 cap(s), Oral, BID, On hold per physician furosemide 40 mg oral tablet, 40 mg= 1 tab(s), Oral, qDay, 1 refills hydrOXYzine hydrochloride 25 mg oral tablet, 25 mg= 1 tab(s), Oral, QID, 2 refills, On hold per physician levETIRAcetam 500 mg oral tablet, 500 mg= 1 tab(s), Oral, BID levothyroxine 50 mcg (0.05 mg) oral tablet, 50 mcg= 1 tab(s), Oral, qDay, 3 refills Linzess 290 mcg oral capsule, 290 mcg= 1 cap(s), Oral, qDay melatonin, 30 mg, Oral, qHS metoprolol succinate 25 mg oral TABLET extended release, 25 mg= 1 tab(s), Oral, qDay, 2 refills MiraLax oral powder for reconstitution, See Instructions Nitrostat 0.4 mg sublingual tablet, 0.4 mg= 1 tab(s), Sublingual, q5min, PRN, 2 refills omeprazole 40 mg oral delayed release capsule, 40 mg= 1 cap(s), Oral, BID Plavix 75 mg oral tablet, 75 mg= 1 tab(s), Oral, qDay, 1 refills potassium chloride 20 mEq oral tablet, extended release, 40 mEq= 2 tab(s), Oral, Sun/Tues/Thurs/Sat, 2 refills Probiotic, 1tab, Oral, qDay Ranexa 500 mg oral tablet, extended release, 500 mg= 1 tab(s), Oral, BID, 1 refills rosuvastatin 40 mg oral tablet, 40 mg= 1 tab(s), Oral, Daily, 3 refills sevelamer carbonate 800 mg oral tablet, 800 mg= 1 tab(s), Oral, TID Singulair 10 mg oral tablet, 10 mg= 1 tab(s), Oral, qPM, 3 refills Zofran 4 mg oral tablet, 4 mg= 1 tab(s), Oral, q6h, PRN Allergies Macrodantin (Moderate) HIVES Welchol Unsure Zaroxolyn Unsure colesevelam Unknown metOLazone Unknown nitrofurantoin Unknown pravastatin liver simvastatin Liver traMADol GI upset Social History Smoking Status - 06/05/2017 Never smoker Alcohol - Denies Alcohol Use, 06/05/2017 Use: Never., 03/03/2019 Home/Environment Domestic Concerns: None. Living situation: Home/Independent. 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 Current Home Treatments Nebulizer treatments. Professional Skilled Services or Special Community Resources [facility]. Spouse Name: Fausto. Marital Status: ., 2022 Nutrition/Health Type of diet: Regular. Appetite Good. Eating Difficulties None. Enteral Feedings No. TPN Feedings No. Skin Breakdown No. Caffeine intake amount: 1 serving of tea/day., 11/07/2020 Substance Abuse - Denies Substance Abuse, 06/05/2017 Use: Never., 03/03/2019 Tobacco Nicotine Use: Smoker, current status unknown, Former smoker, quit more than 30 days ago. Type: Cigarettes. Number of years: 11. Stopped at age: 48 Years., 01/03/2025 Family History Asthma: Negative: Mother, Father, Sister, Brother, Daughter and Son. Cancer: Mother, Father and Son.Negative: Sister and Brother. Congestive cardiac failure: Father. Coronary artery disease: Mother. Diabetes: Son. Diabetes mellitus: Brother.Negative: Mother, Father, Sister, Daughter and Son. HIV: Negative: Mother, Father, Sister, Brother, Daughter and Son. HTN - Hypertension: Father.Negative: Mother, Sister, Brother, Daughter and Son. Heart disease: Father.Negative: Mother, Sister, Brother, Daughter and Son. Hepatitis: Negative: Mother, Father, Sister, Brother, Daughter and Son. Hyperchloremia: Father.Negative: Mother, Sister, Brother, Daughter and Son. NV - myocardial infarction: Mother (Dx at 50). Mental illness: Negative: Mother, Father, Sister, Brother, Daughter and Son. Seizure: Negative: Mother, Father, Sister, Brother, Daughter and Son. Stroke: Negative: Mother, Father, Sister, Brother, Daughter and Son. TB - Tuberculosis: Negative: Mother, Father, Sister, Brother, Daughter and Son. Health Status Family Member(s) Immunizations pneumococcal 13-valent conjugate vaccine: 0 unknown unit (03/04/20) SARS-CoV-2 (COVID-19) Ad26 vaccine: 0 unknown unit (02/11/21) tetanus-diphtheria toxoids: 0 unknown unit (03/07/11) tetanus/diphth/pertuss (Tdap) adult/adol: 0.5 unknown unit (03/16/23) tetanus/diphth/pertuss (Tdap) adult/adol: 0.5 unknown unit (01/19/22) zoster vaccine live: 0 unknown unit (03/04/20) zoster vaccine, inactivated: 0 unknown unit (06/28/20) Digitally Signed by CHESTER KWONG MD on 01/06/2025 07:17 PM Digitally Signed by CHESTER KWONG MD on 01/06/2025 07:18 PM [id number] Nephrology procedure note Date of Service January 06, 2025 Patient seen in dialysis. Systolic blood pressure in the 90s. She is asymptomatic. No cramping. No lightheadedness. Will continue fluid removal as tolerated. Goal is to decrease her target weight. Next scheduled treatment will be on Wednesday. Digitally Signed by DARCIE MCDONALD MD on 01/06/2025 04:24 PM [id number] Note Date of Service January 06, 2025 Baseline EKG shows early QRS transition and nonspecific ST and T wave abnormality. Lexiscan was injected according to the standard dose. Heart rate increased to 105. Patient had transient chest discomfort and nausea. During the test, no arrhythmia or significant ST segment changes occurred. Summary: EKG portion of the test is negative for Lexiscan induced ischemia. Digitally Signed by BRITTANY LEON MD on 01/06/2025 03:25 PM [id number] Nephrology Consult note Date of Service Jan 06 2025 Reason for Consultation Stage renal disease History of Present Illness Patient is 75 years old. History of end-stage renal disease currently on hemodialysis on Wednesdays and Fridays in [place]. She did have her typical dialysis treatment yesterday. In the last 2 to dyspnea on exertion. She has had intermittent chest discomfort. This is worse in the last 24 hours. She presented to an outside emergency department was found to have an elevated troponin level. Upon arrival at [facility], troponin is 98. Patient states that she has a hard time getting her edema controlled due to hypotension cramping or feeling poorly in dialysis. She does have lower extremity edema. She denies orthopnea. She states that she feels better than she did when she first presente d. No nausea or emesis. No diaphoresis. No fevers or chills. Review of Systems As above and otherwise negative. Physical Exam Vitals and Measurements T: 36.7 C (Oral) HR: 91 (Monitored) RR: 18 BP: 132/39 SpO2: 94% HT: 162.6 cm WT: 84.3 kg BMI: 31.89 Weight Dosing Weight: 84.3 kg (01/06/25) General: No distress on nasal cannula oxygen HEENT: Mucosa was moist, sclera anicteric, JVD is present Lungs: Clear bilaterally with no crackles wheezes or rhonchi Heart: Regular with no murmurs rubs or gallops Access: Right arm AV fistula with positive bruit and thrill. Abdomen: Positive bowel sounds, soft, no palpable masses Extremities: 2+ lower extremity edema, pulses 2+ in all 4 extremities Skin: No rashes, normal turgor Lab Results 01/06 08:08 WBC: 7.1 Hgb: 7.4 L Hct: 22.4 L Platelet: 224 Neutrophil %: 64.8 Glucose Level: 86 Sodium Level: 137 Potassium Level: 3.9 BUN: 30.0 H Creatinine Lvl (s): 4.12 H Assessment/Plan 1. End-stage renal disease: Typical dialysis is Wednesday. Did have her normal treatment yesterday. Due to chronic edema and inability to reach her target weight, we will do an extra dialysis treatment while she is in the hospital. Plan ultrafiltration today for 2 L. Right arm AV fistula is patent. 2. Chest pain with elevated troponin: Given history of coronary artery disease, must evaluate further for ischemic disease. Serial cardiac enzymes will be drawn. She currently is on a heparin drip. She will be scheduled for a [place] scan 3. Anemia: Dose Epogen with dialysis. 4. Heart failure with preserved ejection fraction: Patient has chronic edema. She has worsening dyspnea on exertion. Will challenge weight and see if symptoms improve. Problem List/Past Medical History Ongoing Abscess of external ear Acute sinusitis Aftercare following surgery ANDRIY (acute kidney injury) Angina Arm skin lesion, right Arthritis Asthma At risk for falls B12 deficiency Back pain Callaway's esophagus Bilateral leg cramps CAD (coronary artery disease) CAD (coronary artery disease) Cellulitis Chronic anticoagulation Chronic constipation Chronic low back pain CKD (chronic kidney disease) requiring chronic dialysis Community acquired pneumonia Diverticulosis Draining postoperative wound Elevated ferritin Elevated sed rate Empty sella Generalized weakness GERD (gastroesophageal reflux disease) Glasses H/O adrenal insufficiency Has Numbness Head injury Hematoma of leg History of left heart catheterization Hypercalcemia Hypercholesterolemia Hypertension Hypokalemia Hypothyroidism Infected skin tear Itching of skin Laceration of face Left lower lobe pneumonia Leg pain Lower extremity weakness Lumbar herniated disc MRSA (methicillin resistant Staphylococcus aureus) Multiple wounds of skin MVP (mitral valve prolapse) Myalgia Neuropathy involving both lower extremities Osteoporosis Osteoporosis Peripheral edema Peripheral vascular disease PTCA - Percutaneous transluminal coronary angioplasty Purpura PVD (peripheral vascular disease) Renal failure Rheumatoid arthritis Seizure disorder Severe anemia Shortness of breath Skin lesion Skin tear of lower leg without complication Skin tear of right lower leg without complication SOBOE (shortness of breath on exertion) Spinal stenosis Status post arterial stent Tear of skin of multiple sites of left lower extremity Unsteady gait Vitamin D deficiency Weight gain Well adult exam Historical Anemia Anemia Colon polyps HTN (hypertension) NV (myocardial infarction) Pneumonia Procedure/Surgical History Fistula: 08/06/22 Echocardiogram: 02/27/22 Echocardiogram: 04/24/21 Echocardiogram: 03/15/20 Ankle brachial pressure index: 01/24/20 Echocardiogram: 02/14/18 Echocardiogram: 03/08/17 BRANDO - Arterial pressure index: 11/21/15 Cardiac catheterization: 2014 Bunionectomy: 08/31/14 Cardiac catheterization: 2013 Foot: 06/02/13 MUGA scan: 08/02/12 Fusion of lumbar spine: 08/05/10 Carpal tunnel release: 1994 Hysterectomy: 1979 Discectomy History of hemiarthroplasty of right hip Arthroplasty of right shoulder Coronary artery stent Esophagogastroduodenoscopy Lumpectomy of breast Medications Inpatient albuterol 2.5 mg/3 mL (0.083%) inhalation solution, 2.5 mg= 3 mL, Inhalation, q6h, PRN Bactrim, 1 tab(s), Oral, q24h cephalexin, 500 mg= 1 cap(s), Oral, q12h Dextrose 50% IV Push, 25 gram(s)= 50 mL, IV Push, AsDirected, PRN DuoNeb, 3 mL, Inhalation, q4hRT, PRN heparin 5000 units/mL injection, 5000 unit(s)= 1 mL, Subcutaneous, q12h Lasix, 40 mg= 1 tab(s), Oral, qDay levETIRAcetam, 500 mg= 1 tab(s), Oral, BID levothyroxine, 50 mcg= 1 tab(s), Oral, qDay magnesium sulfate for IV bolus, 2 gram(s)= 50 mL, IV Piggyback, AsDirected, PRN magnesium sulfate for IV bolus, 4 gram(s)= 100 mL, IV Piggyback, AsDirected, PRN magnesium sulfate for IV bolus melatonin, 3 mg= 1 tab(s), Oral, qHS, PRN metoprolol succinate 25 mg oral TABLET extended release, 25 mg= 1 tab(s), Oral, qDay Miralax Powder Packet, 17 gram(s)= 15 mL, Oral, qDay, PRN Miralax Powder Packet, 17 gram(s)= 15 mL, Oral, qDay, PRN Nitrostat, 0.4 mg= 1 tab(s), Sublingual, q5min, PRN omeprazole, 40 mg= 1 cap(s), Oral, BID Plavix, 75 mg= 1 tab(s), Oral, qDay potassium chloride, 20 mEq= 1 tab(s), Oral, AsDirected, PRN potassium chloride, 40 mEq= 2 tab(s), Oral, AsDirected, PRN potassium chloride, 40 mEq= 2 tab(s), Oral, AsDirected, PRN potassium chloride bolus, 20 mEq= 100 mL, IV Piggyback, AsDirected, PRN Ranexa, 500 mg= 1 tab(s), Oral, BID rosuvastatin, 40 mg= 2 tab(s), Oral, Daily sevelamer carbonate 800 mg oral tablet, 800 mg= 1 tab(s), Oral, TID Singulair, 10 mg= 1 tab(s), Oral, qPM Tylenol, 650 mg= 2 tab(s), Oral, q4h, PRN Home acetaminophen-hydrocodone 325 mg-5 mg oral tablet, 1 tab(s), Oral, BID albuterol 2.5 mg/3 mL (0.083%) inhalation solution, 2.5 mg= 3 mL, Inhalation, q6h, PRN Bactrim DS 800 mg-160 mg oral tablet, 1 tab(s), Oral, BID cephalexin 500 mg oral capsule, 500 mg= 1 cap(s), Oral, TID DULoxetine 30 mg oral delayed release capsule, 30 mg= 1 cap(s), Oral, BID, On hold per physician furosemide 40 mg oral tablet, 40 mg= 1 tab(s), Oral, qDay, 1 refills hydrOXYzine hydrochloride 25 mg oral tablet, 25 mg= 1 tab(s), Oral, QID, 2 refills, On hold per physician levETIRAcetam 500 mg oral tablet, 500 mg= 1 tab(s), Oral, BID levothyroxine 50 mcg (0.05 mg) oral tablet, 50 mcg= 1 tab(s), Oral, qDay, 3 refills Linzess 290 mcg oral capsule, 290 mcg= 1 cap(s), Oral, qDay melatonin, 30 mg, Oral, qHS metoprolol succinate 25 mg oral TABLET extended release, 25 mg= 1 tab(s), Oral, qDay, 2 refills MiraLax oral powder for reconstitution, See Instructions Nitrostat 0.4 mg sublingual tablet, 0.4 mg= 1 tab(s), Sublingual, q5min, PRN, 2 refills omeprazole 40 mg oral delayed release capsule, 40 mg= 1 cap(s), Oral, BID Plavix 75 mg oral tablet, 75 mg= 1 tab(s), Oral, qDay, 1 refills potassium chloride 20 mEq oral tablet, extended release, 40 mEq= 2 tab(s), Oral, Sun/Tues/Thurs/Sat, 2 refills Probiotic, 1tab, Oral, qDay Ranexa 500 mg oral tablet, extended release, 500 mg= 1 tab(s), Oral, BID, 1 refills rosuvastatin 40 mg oral tablet, 40 mg= 1 tab(s), Oral, Daily, 3 refills sevelamer carbonate 800 mg oral tablet, 800 mg= 1 tab(s), Oral, TID Singulair 10 mg oral tablet, 10 mg= 1 tab(s), Oral, qPM, 3 refills Zofran 4 mg oral tablet, 4 mg= 1 tab(s), Oral, q6h, PRN Allergies Macrodantin (Moderate) HIVES Welchol Unsure Zaroxolyn Unsure colesevelam Unknown metOLazone Unknown nitrofurantoin Unknown pravastatin liver simvastatin Liver traMADol GI upset Social History Smoking Status - 06/05/2017 Never smoker Alcohol - Denies Alcohol Use, 06/05/2017 Use: Never., 03/03/2019 Home/Environment Domestic Concerns: None. Living situation: Home/Independent. 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 Current Home Treatments Nebulizer treatments. Professional Skilled Services or Special Community Resources [facility]. Spouse Name: Fausto. Marital Status: ., 2022 Nutrition/Health Type of diet: Regular. Appetite Good. Eating Difficulties None. Enteral Feedings No. TPN Feedings No. Skin Breakdown No. Caffeine intake amount: 1 serving of tea/day., 11/07/2020 Substance Abuse - Denies Substance Abuse, 06/05/2017 Use: Never., 03/03/2019 Tobacco Nicotine Use: Smoker, current status unknown, Former smoker, quit more than 30 days ago. Type: Cigarettes. Number of years: 11. Stopped at age: 48 Years., 01/03/2025 Family History Asthma: Negative: Mother, Father, Sister, Brother, Daughter and Son. Cancer: Mother, Father and Son.Negative: Sister and Brother. Congestive cardiac failure: Father. Coronary artery disease: Mother. Diabetes: Son. Diabetes mellitus: Brother.Negative: Mother, Father, Sister, Daughter and Son. HIV: Negative: Mother, Father, Sister, Brother, Daughter and Son. HTN - Hypertension: Father.Negative: Mother, Sister, Brother, Daughter and Son. Heart disease: Father.Negative: Mother, Sister, Brother, Daughter and Son. Hepatitis: Negative: Mother, Father, Sister, Brother, Daughter and Son. Hyperchloremia: Father.Negative: Mother, Sister, Brother, Daughter and Son. NV - myocardial infarction: Mother (Dx at 50). Mental illness: Negative: Mother, Father, Sister, Brother, Daughter and Son. Seizure: Negative: Mother, Father, Sister, Brother, Daughter and Son. Stroke: Negative: Mother, Father, Sister, Brother, Daughter and Son. TB - Tuberculosis: Negative: Mother, Father, Sister, Brother, Daughter and Son. Health Status Family Member(s) Immunizations pneumococcal 13-valent conjugate vaccine: 0 unknown unit (03/04/20) SARS-CoV-2 (COVID-19) Ad26 vaccine: 0 unknown unit (02/11/21) tetanus-diphtheria toxoids: 0 unknown unit (03/07/11) tetanus/diphth/pertuss (Tdap) adult/adol: 0.5 unknown unit (03/16/23) tetanus/diphth/pertuss (Tdap) adult/adol: 0.5 unknown unit (01/19/22) zoster vaccine live: 0 unknown unit (03/04/20) zoster vaccine, inactivated: 0 unknown unit (06/28/20) Digitally Signed by DARCIE MCDONALD MD on 01/06/2025 02:01 PM [id number] Evaluation + Plan noteExtracted from: Title:History and Physical Author:JAKE JEROME MD Date:01/06/25 Elevated troponins type II v s type I CAD s/p PCI to left circumflex March 2006, PCI to RCA July 2006 and most recent heart cath in April 2021 that revealed patent stents and no other significant disease] history of PVD status post bilateral common iliac artery stents in 2010 ESRD on dialysis HTN Anemia (baseline around 9-10, baseline was higher around 12 in 2023, follows with heme) Seizures on keppra Patient presents as a transfer for evaluation of chest pain, she uses a mobility scooter hence her ambulation is limited. Has been experiencing some chest tightness a squeezing sensation that radiates up toward her jaw when she walks to the bathroom. She then reported to her PCP who checked her troponins which were abnormal hence she was directed to go to the ER. Currently is not experiencing any chest discomfort. Troponins were checked at [facility] which were 130s then downtrended to 120s. Given flat trend, we will start with Lexiscan stress test for ischemic eval. She is on antibiotics for her lower extremity wounds. Will need to closely monitor Hb trends. She has no active bleeding, anemia could also be contributing to her symptoms, currently around 7-8. Previously was as high as 12 in 2023. No active bleeding, her ferritin levels have always been elevated. Repeat iron studies and CBC in PM. Type and screen ordered as well. Addendum by PEÑA RODRIGEZ MD on January 07, 2025 07:54:09 EDT I have personally seen, examined, and evaluated the patient on the encounter date. I have reviewed the fellow s documentation and agree with the fellow s findings and plan as documented, unless otherwise stated. Future Appointments Appointment Date:01/17/2025 11:30:00 AM Scheduled Provider:BELL MAHER MD Location:[facility] Appointment Type:PC OV Follow Up Appointment Date:02/05/2025 11:45:00 AM Scheduled Provider:ARGENTINA ARGUELLO APRN-VASCULAR ULTRASOUND TECHNICIAN Location:[facility] Appointment Type:[facility] OV Follow Up w/EMPLOYEE COMMUNICATIONS MANAGER Future Scheduled Tests Laboratory* Ferritin 06/20/24 * Haptoglobin 02/03/25 * Free T4 06/20/24 * Vitamin B12 Level 06/20/24 * Complete Blood Count 06/20/24 * Complete Blood Count 02/03/25 * ANJANA (serum) 02/03/25 * Iron Studies 02/03/25 * Protein Electrophoresis Panel 02/03/25 * Vitamin D Level 06/20/24 [facility] 05-17-2025 Note* Exam Date Time Procedure Performing Provider Status 01/06/25 10:27 AM NM Myocardial Spect Rest/Stress SHAILESH SHOOK MD; Auth (Verified) [id number] ORIGINAL EXAMINATION: CARDIAC SPECT01/06/2025 10:28 am TECHNIQUE: Lexiscan dose: 0.4 mg IV Radiopharmaceutical (rest and stress doses): Tc-99m Sestamibi IV 8.9 and 26.1 mCi SPECT acquisition and processing: Images reconstructed into short, vertical long, and horizontal long axis planes. Wall motion evaluation and quantitative LVEF assessment. Low-dose attenuation correction CT. COMPARISON: Stress test November 12, 2016 HISTORY: Reason for Exam: chest pain FINDINGS: Mildly decreased perfusion involving the inferior wall on non-attenuation corrected post stress images resolves on attenuation corrected post-stress images, likely represents soft tissue attenuation. There is no convincing stress-induced reversible perfusion abnormality. No fixed perfusion defect is seen to suggest infarction. The left ventricular end-diastolic volume is 43 mL. Gated imaging demonstrates no regional wall motion abnormality. Estimated left ventricular ejection fraction is 88 %. TID ratio is normal at 0.96. Low-dose attenuation correction CT demonstrates multivessel coronary artery disease. The heart is normal in size. No pericardial or pleural effusion is seen. There is no focal consolidation. IMPRESSION: 1. No convincing stress-induced reversible perfusion abnormality is seen. 2. Cardiac systolic function is normal with estimated ejection fraction of 88 %. Interpreted by: Shailesh Shook MD Preliminary Report By: Shailesh Shook MD Electronically signed By Shailesh Shook MD Dictated Date: 01/06/2025 12:45:27 PM Prelim Date: 01/06/2025 12:53:12 PM Sign Date: 01/06/2025 12:53:12 PM Ordering Provider: [facility]05-17-2025 History and physical note Date of Service 01/06/25 History of Present Illness Patient is a 74-year-old female, uses a mobility scooter, lives with family, with medical history significant for CAD status post PCI to left circumflex March 2006, PCI to RCA July 2006 and mostrecent heart cath in April 2021 that revealed patent stents and no other significant disease], h ypercholesterolemia, history of PVD status post bilateral common iliac artery stents in 2010, CKD on dialysis Wednesday, hypertension, history of normocytic anemia, seizures on Keppra who presents as a transfer for evaluation of chest pain. aorta 12/05/24- no aortic aneursym mild left ICA stenosis EKG shows sinus rhythm without any significant ischemic changes ECHO 2021 Summary: 1. Left ventricle: The cavity size is normal. Wall thickness is normal. Systolic function is normal. The estimated ejection fraction is 55-60%. Wall motion is normal; there are no regional wall motion abnormalities. 2. Aortic valve: Thickening, consistent with sclerosis. 3. Mitral valve: There is mild, 1+ regurgitation. 4. Left atrium: The atrium is mildly dilated. 5. Right ventricle: The RV systolic pressure by Doppler is 27 mm Hg. 6. Pulmonic valve: There is trivial regurgitation. 7. Tricuspid valve: There is trivial regurgitation. CATH 2020 SUMMARY: 1. Left ventricle: Systolic function is normal. The estimated ejection fraction is 50-55%. Wall motion is normal; there are no regional wall motion abnormalities. 2. Left main: The vessel is normal. 3. LAD: The proximal vessel is normal-sized and moderately calcified. There is mild diffuse disease. The mid vessel is normal-sized. There is mild diffuse disease. 4. 2nd diagonal: Ostial lesion: There is a 50% stenosis. 5. Left circumflex: Prior intervention: stent, in the mid left circumflex. The intervened segment is patent. 6. Right coronary: Prior intervention: stent, in the proximal RCA. Proximal vessel lesion: There low diffuse, 30% in-stent recurrent stenosis. IMPRESSIONS: Mild difuse nonobstructive CAD. Patent prior stent involving the RCA with Mild ISR. Patent prior stent involving the distal LCX. patent mid Lcx stent, patent proximal RCA stent with mild ISR, mild diffuse nonobstructive CAD otherwise Review of Systems 12 point ROS negative unless mentioned in HPI Physical Exam Vitals and Measurements T: 36.7 C (Oral) HR: 91 (Monitored) RR: 18 BP: 132/39 SpO2: 94% HT: 162.6 cm WT: 84.3 kg BMI: 31.89 Weight Dosing Weight: 84.3 kg (01/06/25) Constitutional: Oriented to time, place, and person well developed well nourished Cardiovascular: JVD not elevated, S1 S2 present,No added sounds, no leg edema Abdomen: soft nontender Musculoskeletal system: general/bilateral Normal movement of all extremities Neurological: NFND Skin: bilateral LE wounds wrapped Lab Results No 36 Hour Lab Data Assessment/Plan Elevated troponins type II vs type I CAD s/p PCI to left circumflex March 2006, PCI to RCA July 2006 and most recent heart cath in April 2021 that revealed patent stents and no other significant disease] history of PVD status post bilateral common iliac artery stents in 2010 ESRD on dialysis HTN Anemia (baseline around 9-10, baseline was higher around 12 in 2023, follows with heme) Seizures on keppra Patient presents as a transfer for evaluation of chest pain, she uses a mobility scooter hence her ambulation is limited. Has been experiencing some chest tightness a squeezing sensation that radiates up toward her jaw when she walks to the bathroom. She then reported to her PCP who checked her troponins which were abnormal hence she was directed to go to the ER. Currently is not experiencing anychest discomfort. Troponins were checked at [facility] which were 130s then downtrended to 120s. Given flat trend, we will start with Lexiscan stress test for ischemic eval. She is on antibiotics for her lower extremity wounds. Will need to closely monitor Hb trends. She has no active bleeding, anemia could also be contributing to her symptoms, currently around 7-8. Previously was as high as 12 in 2023. No active bleeding, her ferritin levels have always been elevated. Repeat iron studies and CBC in PM. Type and screen ordered as well. Problem List/Past Medical History Ongoing Abscess of external ear Acute sinusitis Aftercare following surgery ANDRIY (acute kidney injury) Angina Arm skin lesion, right Arthritis Asthma At risk for falls B12 deficiency Back pain Callaway's esophagus Bilateral leg cramps CAD (coronary artery disease) CAD (coronary artery disease) Cellulitis Chronic anticoagulation Chronic constipation Chronic low back pain CKD (chronic kidney disease) requiring chronic dialysis Community acquired pneumonia Diverticulosis Draining postoperative wound Elevated ferritin Elevated sed rate Empty sella Generalized weakness GERD (gastroesophageal reflux disease) Glasses H/O adrenal insufficiency Has Numbness Head injury Hematoma of leg History of left heart catheterization Hypercalcemia Hypercholesterolemia Hypertension Hypokalemia Hypothyroidism Infected skin tear Itching of skin Laceration of face Left lower lobe pneumonia Leg pain Lower extremity weakness Lumbar herniated disc MRSA (methicillin resistant Staphylococcus aureus) Multiple wounds of skin MVP (mitral valve prolapse) Myalgia Neuropathy involving both lower extremities Osteoporosis Osteoporosis Peripheral edema Peripheral vascular disease PTCA - Percutaneous transluminal coronary angioplasty Purpura PVD (peripheral vascular disease) Renal failure Rheumatoid arthritis Seizure disorder Severe anemia Shortness of breath Skin lesion Skin tear of lower leg without complication Skin tear of right lower leg without complication SOBOE (shortness of breath on exertion) Spinal stenosis Status post arterial stent Tear of skin of multiple sites of left lower extremity Unsteady gait Vitamin D deficiency Weight gain Well adult exam Historical Anemia Anemia Colon polyps HTN (hypertension) NV (myocardial infarction) Pneumonia Procedure/Surgical History Fistula: 08/06/22 Echocardiogram: 02/27/22 Echocardiogram: 04/24/21 Echocardiogram: 03/15/20 Ankle brachial pressure index: 01/24/20 Echocardiogram: 02/14/18 Echocardiogram: 03/08/17 BRANDO - Arterial pressure index: 11/21/15 Cardiac catheterization: 2014 Bunionectomy: 08/31/14 Cardiac catheterization: 2013 Foot: 06/02/13 MUGA scan: 08/02/12 Fusion of lumbar spine: 08/05/10 Carpal tunnel release: 1994 Hysterectomy: 1978 Discectomy History of hemiarthroplasty of right hip Arthroplasty of right shoulder Coronary artery stent Esophagogastroduodenoscopy Lumpectomy of breast Medications Home Medications (23) Active acetaminophen-hydrocodone 325 mg-5 mg oral tablet 1 tab(s), Oral, BID albuterol 2.5 mg/3 mL (0.083%) inhalation solution 2.5 mg = 3 mL, PRN, Inhalation, q6h Bactrim DS 800 mg-160 mg oral tablet 1 tab(s), Oral, BID cephalexin 500 mg oral capsule 500 mg = 1 cap(s), Oral, TID DULoxetine 30 mg oral delayed release capsule 30 mg = 1 cap(s), Oral, BID furosemide 40 mg oral tablet 40 mg = 1 tab(s), Oral, qDay hydrOXYzine hydrochloride 25 mg oral tablet 25 mg = 1 tab(s), Oral, QID levETIRAcetam 500 mg oral tablet 500 mg = 1 tab(s), Oral, BID levothyroxine 50 mcg (0.05 mg) oral tablet 50 mcg = 1 tab(s), Oral, qDay Linzess 290 mcg oral capsule 290 mcg = 1 cap(s), Oral, qDay melatonin 30 mg, Oral, qHS metoprolol succinate 25 mg oral TABLET extended release 25 mg = 1 tab(s), Oral, qDay MiraLax oral powder for reconstitution See Instructions Nitrostat 0.4 mg sublingual tablet 0.4 mg = 1 tab(s), PRN, Sublingual, q5min omeprazole 40 mg oral delayed release capsule 40 mg = 1 cap(s), Oral, BID Plavix 75 mg oral tablet 75 mg = 1 tab(s), Oral, qDay potassium chloride 20 mEq oral tablet, extended release 40 mEq = 2 tab(s), Oral, Sun/Tues/Thurs/Sat Probiotic 1tab, Oral, qDay Ranexa 500 mg oral tablet, extended release 500 mg = 1 tab(s), Oral, BID rosuvastatin 40 mg oral tablet 40 mg = 1 tab(s), Oral, Daily sevelamer carbonate 800 mg oral tablet 800 mg = 1 tab(s), Oral, TID Singulair 10 mg oral tablet 10 mg = 1 tab(s), Oral, qPM Zofran 4 mg oral tablet 4 mg = 1 tab(s), PRN, Oral, q6h Allergies Macrodantin (Moderate) HIVES Welchol Unsure Zaroxolyn Unsure colesevelam Unknown metOLazone Unknown nitrofurantoin Unknown pravastatin liver simvastatin Liver traMADol GI upset Social History Smoking Status - 06/05/2017 Never smoker Alcohol - Denies Alcohol Use, 06/05/2017 Use: Never., 03/03/2019 Home/Environment Domestic Concerns: None. Living situation: Home/Independent. 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 Current Home Treatments Nebulizer treatments. Professional Skilled Services or Special Community Resources [facility]. Spouse Name: Fausto. Marital Status: ., 2022 Nutrition/Health Type of diet: Regular. Appetite Good. Eating Difficulties None. Enteral Feedings No. TPN Feedings No. Skin Breakdown No. Caffeine intake amount: 1 serving of tea/day., 11/07/2020 Substance Abuse - Denies Substance Abuse, 06/05/2017 Use: Never., 03/03/2019 Tobacco Nicotine Use: Smoker, current status unknown, Former smoker, quit more than 30 days ago. Type: Cigarettes. Number of years: 11. Stopped at age: 48 Years., 01/03/2025 Family History Asthma: Negative: Mother, Father, Sister, Brother, Daughter and Son. Cancer: Mother, Father and Son.Negative: Sister and Brother. Congestive cardiac failure: Father. Coronary artery disease: Mother. Diabetes: Son. Diabetes mellitus: Brother.Negative: Mother, Father, Sister, Daughter and Son. HIV: Negative: Mother, Father, Sister, Brother, Daughter and Son. HTN - Hypertension: Father.Negative: Mother, Sister, Brother, Daughter and Son. Heart disease: Father.Negative: Mother, Sister, Brother, Daughter and Son. Hepatitis: Negative: Mother, Father, Sister, Brother, Daughter and Son. Hyperchloremia: Father.Negative: Mother, Sister, Brother, Daughter and Son. NV - myocardial infarction: Mother (Dx at 50). Mental illness: Negative: Mother, Father, Sister, Brother, Daughter and Son. Seizure: Negative: Mother, Father, Sister, Brother, Daughter and Son. Stroke: Negative: Mother, Father, Sister, Brother, Daughter and Son. TB - Tuberculosis: Negative: Mother, Father, Sister, Brother, Daughter and Son. Health Status Family Member(s) Immunizations pneumococcal 13-valent conjugate vaccine: 0 unknown unit (03/04/20) SARS-CoV-2 (COVID-19) Ad26 vaccine: 0 unknown unit (02/11/21) tetanus-diphtheria toxoids: 0 unknown unit (03/07/11) tetanus/diphth/pertuss (Tdap) adult/adol: 0.5 unknown unit (03/16/23) tetanus/diphth/pertuss (Tdap) adult/adol: 0.5 unknown unit (01/19/22) zoster vaccine live: 0 unknown unit (03/04/20) zoster vaccine, inactivated: 0 unknown unit (06/28/20) Code Status No qualifying data available. Digitally Signed by ALCON JEROME MD on 01/06/2025 10:13 AM [id number] Note* Exam Date Time Procedure Performing Provider Status 01/06/25 4:44 AM Electrocardiogram - EKG - CV EUFEMIA LEON MD; Auth (Verified) ECG Final Report SINUS RHYTHM LOW VOLTAGE, PRECORDIAL LEADS ABNORMAL R-WAVE PROGRESSION, EARLY TRANSITION Electronic Signature: BRITTANY LEON MD 01/06/2025 14:46:35 [id number] Note. MICRO - Microbiology PROCEDURE: Culture Wound Aerobic with Gram Stain [*1] SOURCE: Wound (surface) BODY SITE: Leg L COLLECTED DATE/TIME: 12/20/2024 16:57 EDT RECEIVED DATE/TIME: 12/20/2024 18:43 EDT START DATE/TIME: 12/20/2024 18:43 EDT FREE TEXT SOURCE: FINAL REPORTS Final Report [] Verified Date/Time/Personnel: 12/24/2024 09:20 EDT Heavy Methicillin-Resistant Staphylococcus aureus This staphylococci does not demonstrate inducible clindamycin resistance in vitro. 1 colony Shewanella putrefaciens PRELIMINARY REPORTS Preliminary Report [] Verified Date/Time/Personnel: 12/23/2024 14:32 EDT Heavy Methicillin-Resistant Staphylococcus aureus This staphylococci does not demonstrate inducible clindamycin resistance in vitro. 1 colony Shewanella putrefaciens PRISCILLA to follow Preliminary Report [] Verified Date/Time/Personnel: 12/22/2024 08:04 EDT Heavy Methicillin-Resistant Staphylococcus aureus This staphylococci does not demonstrate inducible clindamycin resistance in vitro. Final report to follow. Preliminary Report [] Verified Date/Time/Personnel: 12/21/2024 11:42 EDT Heavy Staphylococcus aureus PRISCILLA to follow STAINS GS [] Verified Date/Time/Personnel: 12/20/2024 20:51 EDT 2+ Red Blood Cells 2+ Polymorphonuclear cells 1+ Gram Positive Cocci SUSCEPTIBILITY RESULTS Methicillin-Resistant Staphylococcus aureus Antibiotic PRISCILLA Dilut PRISCILLA Inter Ampicillin/ <=8/4 Resistant Sulbactam Azithromycin >4 Resistant Ceftaroline <=0.5 Susceptible Ceftriaxone <=4 Resistant Ciprofloxacin <=1 Susceptible Clindamycin <=0.25 Susceptible Daptomycin 1 Susceptible Erythromycin >4 Resistant Levofloxacin <=1 Susceptible Linezolid 2 Susceptible Oxacillin >2 Resistant Penicillin 0.12 Resistant Rifampin <=1 Susceptible Tetracycline <=4 Susceptible MICRO - Microbiology SUSCEPTIBILITY RESULTS Methicillin-Resistant Staphylococcus aureus Antibiotic PRISCILLA Dilut PRISCILLA Inter Trimethoprim/ <=0.5/9.5 Susceptible Sulfa Vancomycin 2 Susceptible Shewanella putrefaciens Antibiotic PRISCILLA Dilut PRISCILLA Inter Amikacin <=16 Susceptible Aztreonam <=4 Susceptible Ceftriaxone <=1 Susceptible Ciprofloxacin Not Not Applicable Applicable Gentamicin <=2 Susceptible Piperacillin/ <=8 Susceptible Tazobactam Tetracycline <=4 Susceptible Tobramycin <=2 Susceptible Trimethoprim/ <=0.5/9.5 Susceptible Sulfa Performing Locations *1: This test was performed at: [facility] [address] [place] [address], [phone] , [facility]02-04-2025 Note* Exam Date Time Procedure Performing Provider Status 09/26/24 12:24 PM XR Chest 2 Views NADREI SUGGS MD; Auth (Verified) [id number] ORIGINAL EXAMINATION: TWO XRAY VIEWS OF THE CHEST 09/26/2024 12:25 pm COMPARISON: Chest x-ray on 09/06/2024 HISTORY: ORDERING SYSTEM PROVIDED HISTORY: Reason for Exam: Left lower lobe pneumonia follow-up FINDINGS: The heart size and mediastinal contours are normal. Right coronary artery stent is visible. There is no lung infiltrate or edema. The left lower lobe infiltrate has resolved since 09/06/2024. No pneumothorax or pleural fluid is present. Right shoulder replacement and anterior cervical disc fusion has been performed. There is no acute skeletal abnormality. IMPRESSION: Resolution of left lower lobe pneumonia. No acute abnormality. Interpreted by: Andrei Suggs MD Preliminary Report By: Andrei Suggs MD Electronically signed By Andrei Suggs MD Dictated Date: 09/27/2024 12:52:24 AM Prelim Date: 09/27/2024 12:54:40 AM Sign Date: 09/27/2024 12:54:40 AM Ordering Provider: BELL MAHER [facility]12-27-2024 [facility] Medical Records Department [address] [place] [address] Discharge Summary 08/18/24 1504 MR#: [id number] Acct: [id number] Name: MARCOS SHELTON Rep #: [id number] : 1950 74 From: Jesse Bolanos DO PCP: Dr. Bell Maher MD Status:DIS ISAIAS Location: [facility] [place] [id number] Providers Date of Admission: 08/17/24 Date of Discharge: 08/18/24 Primary Care Physician: Dr. Bell Maher MD Consultations 08/17/24 12:41 Consult: Nephrology Routine Consulting Provider: Daniele Walls Reason for Consult: ESRD EMERGENT Consult: No MD Notified: Yes Date Notified: 08/17/24 Time Notified: 11:52 Method of Notification: Verbal Reason For Visit: PNEUMONIA ESRD Diagnosis Discharge Diagnosis (1) End stage renal disease on dialysis: Status: Acute Code(s): N18.6 - End stage renal disease; Z99.2 - Dependence on renal dialysis (2) Anemia of chronic disease: Status: Chronic Code(s): D63.8 - Anemia in other chronic diseases classified elsewhere Plan 1. Community-acquired pneumonia left lower lobe-the patient was placed in observation status on MedSurg 3, she will be treated with IV Zithromax and Rocephin, aerosol treatments will be administered, sputum culture will be obtained if possible, urine will be checked for Legionella and strep antigens, patient's COVID and flu PCR was negative, labs will be monitored, chest x-ray will be repeated tomorrow #2 urinary tract infection-again patient will be placed on Rocephin, urine culture was obtained in the ER #3 end-stage renal disease requiring dialysis-nephrology was consulted, patient will undergo dialysis #4 essential hypertension-patient will remain on her present medication #5 coronary artery disease-patient is on aspirin and clopidogrel Total clinical time spent by myself addressing the patient's medical issues, reviewing all of his data, and collaborating with patient's care team: 75 minutes Medications at Discharge Home Medications nitroglycerin 0.4 mg sublingual tablet 0.4 mg sublingual Q5M PRN Chest Pain 06/19/15 aspirin 81 mg tablet,delayed release 81 mg PO DAILYCM 11/05/17 hydroxyzine HCl 25 mg tablet 25 mg PO Q6H PRN PRN Itching 02/10/19 omeprazole 40 mg capsule,delayed release 40 mg PO BID GERD 04/11/19 clopidogrel 75 mg tablet 75 mg PO DAILY 10/10/21 furosemide 40 mg tablet 40 mg PO DAILY 10/17/21 levetiracetam 500 mg tablet (Keppra) 500 mg PO BID 10/17/21 montelukast 10 mg tablet 10 mg PO DAILY 10/17/21 potassium chloride 10 mEq tablet,extended release 40 meq PO SUTUTHSA 10/17/21 levothyroxine 50 mcg tablet 75 mcg PO DAILY thyroid 10/27/21 metoprolol succinate 25 mg tablet,extended release 24 hr 25 mg PO DAILY heart 10/27/21 ranolazine 500 mg tablet,extended release,12 hr 500 mg PO BID heart 10/27/21 hydrocodone-acetaminophen 5-325mg 5mg-325mg 1 tab PO Q8H PRN pain 2 days #6 tabs 08/06/22 albuterol sulfate 90 mcg/actuation aerosol inhaler 1 puff inhalation Q6H PRN PRN wheezing 08/17/24 linaclotide 290 mcg capsule (Linzess) 290 mcg PO DAILY 08/17/24 melatonin 10 mg capsule 30 mg PO QHS 08/17/24 multivitamin (Daily Multi-Vitamin tablet) 1 tab PO DAILY 08/17/24 ondansetron 4 mg disintegrating tablet 4 mg PO DAILY PRN nausea and vomiting 08/17/24 rosuvastatin 40 mg tablet 40 mg PO DAILY 08/17/24 cefuroxime axetil 500 mg tablet 500 mg PO .QOD #4 tabs 08/18/24 Hospital Course Operations None Procedures Dialysis Summary of Care Provided Minutes Spent on Discharge: 31 Hospital Course: 74-year-old white female seen in the emergency room [facility] after being sent in from a local dialysis center due to complaints of cough malaise and nausea. Patient had symptoms for approximately 2 weeks prior. Workup in the emergency room included a CBC which showed elevated white blood cell count of 22.7, hemoglobin was 8.6, creatinine was 6.01 and BUN was 67. Urinalysis showed 25-50 white blood cells and +1 bacteria, leukocyte esterase was 500. Chest x-ray showed a left lower lobe infiltrate indicating pneumonia or atelectasis-with her white count elevation it was felt she did have community-acquired pneumonia. Patient was also felt to have acute cystitis. Patient was placed in observation status on MedSurg 3, she was seen by nephrology and underwent dialysis, the next day her white blood cell count improved and it was felt that she was stable for discharge home. On 08/18/2024, patient was seen and examined: On examination she appeared in good health and spirits, she does not appear to be in any distress. Vital signs as documented. Skin warm and dry and without overt rashes. Neck without JVD, thyroid appears normal, trachea is midline, neck is supple. Lungs clear, normal air movement was noted. Heart exam notable for regular rhythm, normal sounds and absence of murmurs, rubs or gallops. Abdomen un (more content not included)...[facility]12-26-2024 Evaluation note* Diagnosis Onset Date Resolution Status Admit Date End stage renal disease on dialysis acute August 17, 024 11:43am Anemia of chronic disease chronic August 17, 2024 11:43am Acute dyspnea inactive August 172023 11:43am Pneumonia inactive August 17, 2024 11:43am Weakness inactive August 17, 2024 11:43am [facility] Work Phone: [phone] 686-661802-16-2024 Miscellaneous Notes* Telephone Encounter - Flavio Moreno RN - 10/08/2023 5:35 PM EST Nurse called and spoke with Marcos and explained that she was turned down surgically. Marcos verbalized her understanding. Flavio Moreno RN documented in this encounter[facility]-29-[facility] History of Present illness Narrative* Jesse Llanes RT(R) - 04/20/2023 2:30 PM EDT Radiology Service Progress Note PATIENT NAME: Marcos Shelton DATE OF SERVICE: April 20, 2023 TIME: 2:05 PM PATIENT IDENTITY VERIFICATION COMPLETED USING TWO (2) IDENTIFIERS: Name and Date of confirmedby patient verbally and Name and Date of confirmed by identification band. FALL SCREENING: Has the patient had 2 falls in the last year or 1 fall with injury or currently using an Ambulatory Assistive Device (Walker, Cane, Wheelchair, Crutches, etc.)? No PATIENT GENDER DATA: Female. status: : No status: NO. PATIENT RELEVANT IMPLANT DATA REVIEWED: Yes RADIOLOGY DEPARTMENT: CT; Exam(s) Completed: Abdomen/Pelvis PERIPHERAL IV DATA: Not applicable SIGNED BY: RT Demarco(R) April 20, 2023 2:05 PM documented in this encounterMercy [facility]08-29-2023 History of Present illness Narrative* Gerry Ingram MD - 04/20/2023 2:19 PM EDT [facility] Transplant Evaluation CC: Consultation for Kidney transplant evaluation. Referred by: Melissa Currie [address] [facility] [address] I will communicate with the referring provider by letter and/or shared electronic medical record. HPI: 72 year old female here for ktxp evaluation. Presents in wc for distance. Also uses walker to ambulate. ESRD sec unknown. Hemodialysis initiated 04/22/2022 via [facility]. Hx of Neuropathy, COPD, Asthma, Mitral valve disorder, CAD s/p cardiac stents x 5 (2007, 2009), HLD, vertebral osteomyelitis, RA, diverticulitis, Callaway's Esophagus (GIB), seizures (Keppa prescribed), PTH, wound dehiscence, former smoker quit 1996, Lumbar Fusion, PVD s/p bilat LE stents in 2011 , excision breast lesion, carpal tunnel surgeries. Have claudication before On plavix BP 132/57 Pulse 69 Temp 36.1 C (96.9 F) (Temporal) Ht 162.6 cm (5' 4) Wt 78.4 kg (172 lb 13.5 oz) SpO2 98% BMI 29.67 kg/m Hemodialysis initiated 04/22/2022 via [facility] Midodrine: denies Blood thinner: Plavix & ASA Blood transfusion: Yes LD:Denies UOP: 1L Abdominal Surgeries: Appendectomy & AMALIA Kidney stones: denies UTI: >5 years Hernia: denies Skin cancer: denies Last hospitalization 2021 when starting dialysis Covid infection:denies G 3 P2 SAB x 1 Bilateral LE stents ? Femoral Cardiovascular Disease: yes Peripheral Arterial Disease: (TIA non-embolic, CVA non-embolic, amputation, carotid artery stenosis, abnormal PVRs, claudication history, decreased pulses, etc.): Yes Stroke: NO Claudication: YES Carotid Artery Stenosis: NO DM: No Prior transplant: No CKD: Yes: Cause of CKD: unknown Hemodialysis, Start date: 04/22/2022 Living Donors: No Residual UO: 1L Hypercoagulable (history of DVT/PE, miscarriages, prior use of anticoagulation, etc.):No Malignancy (including skin cancer): No PAST MEDICAL HISTORY Diagnosis Date Abdominal pain, right upper quadrant Acid reflux Anemia associated with chronic renal failure 01/02/2020 Asthma Callaway's esophagus CAD (coronary artery disease) Constipation Diverticulitis Early satiety Essential hypertension, benign Fatigue Heart disease Hemorrhoids Hyperparathyroidism (HCC) Loss of weight Mitral valve disorders(424.0) with prolapse, needs abx prophylaxis Other and unspecified hyperlipidemia PVD (peripheral vascular disease) (HCC) Rheumatoid arthritis(714.0) Seizure (HCC) Wound dehiscence PAST SURGICAL HISTORY Procedure Laterality Date APPENDECTOMY BACK SURGERY HX 2009 lami and fusion L45 for spondylolisthesis BACK SURGERY HX 10/2020 CC PTCA STENT 2007, 2009 COLONOS W/REM POLYP SNARE 09/05/2009 repeat in EXCIS BREAST LESION rt PAST SURGICAL HISTORY OF Left foot PAST SURGICAL HISTORY OF Right shoulder PAST SURGICAL HISTORY OF Right hip surgery REVASCULARIZATION ILIAC ART ANGIOP EA IPSI VSL bilateral REVISE MEDIAN N/CARPAL TUNNEL SURG x 2 Carpal tunnel decomp TOTAL ABDOM HYSTERECTOMY Hysterectomy, AMALIA Current Outpatient Medications Medication Sig albuterol (PROVENTIL) 2.5 mg /3 mL (0.083 %) nebulizer solution Use 2.5 mg via nebulizer one time only. clopidogrel (PLAVIX) 75 mg tablet Take 75 mg by mouth once daily. evolocumab (REPATHA SURECLICK) 140 mg/mL pen injector Inject 140 mg subcutaneously every 2 weeks. levothyroxine (SYNTHROID) 75 mcg tablet Take 75 mcg by mouth daily before breakfast. folic acid/vit B complex and C (NEPHRO-JOSE ORAL) Take by mouth. potassium chloride ER (KLOR-CON) 20 mEq tablet Take 20 mEq by mouth twice daily. ranolazine ER (RANEXA) 500 mg 12 hr tablet Take 500 mg by mouth twice daily. tiZANidine (ZANAFLEX) 4 mg tablet Take 4 mg by mouth every 6 hours as needed. VITAMIN B-6 100 mg tablet take 1 tablet by mouth once daily (Patient not taking: Reported on 04/20/2023) promethazine-codeine 6.25-10 mg/5 mL syrup give 5 milliliters by mouth every 4 hours if needed for cough --NOT TO EXCEED 30 MLS PER 24 HOURS DAPTOmycin (CUBICIN) 350 mg injection Inject 350 mg intravenously every 48 hours. aspirin, enteric coated (ASPIRIN, ENTERIC COATED) 81 mg EC tablet q 24 HR. cyclobenzaprine (FLEXERIL) 10 mg tablet Take 10 mg by mouth three times daily. rosuvastatin (CRESTOR) 40 mg tablet Take 1 tablet by mouth once daily. levETIRAcetam (KEPPRA) 500 mg tablet Take 500 mg by mouth twice daily. cholecalciferol (VITAMIN D-3) 5,000 unit tab Take 5,000 Units by mouth once daily. calcitriol (ROCALTROL) 0.25 mcg capsule Take 0.25 mcg by mouth once daily. Multivitamin with Iron-Mineral tab Take 1 tablet by mouth once daily. hydrOXYzine HCl (ATARAX) 25 mg tablet Take 25 mg by mouth every 6 hours as needed. furosemide (LASIX) 40 mg tablet Take 40 mg by mouth. Wednesday, Wednesday and Wednesday linaCLOtide (LINZESS) 290 mcg capsule Take 290 mcg by mouth as needed. PRN omeprazole 40 mg capsule Take 40 mg by mouth once daily. metoprolol tartrate, short acting, (LOPRESSOR) 25 mg tablet Take 25 mg by mouth once daily. cyanocobalamin, vitamin B-12, (VITAMIN B-12 INJECTION) by INJECTION(UNSPECIFIED PARENTERAL ROUTES) route once every month. temazepam 30 mg cap Take 30 mg by mouth daily at bedtime. montelukast sodium(SINGULAIR 10 MG TAB) take one tablet by mouth daily NITROGLYCERIN 0.4 MG SUBLINGUAL TAB Dissolve under the tongue every 5 minutes as needed. Usual dosefor angina is 1 tablet every 5 minutes for maximum of 3 doses in 15 minutes. ALBUTEROL 90 MCG/ACTUATION AEROSOL INHALER Inhale 1-2 Puffs as instructed every 4 hours as needed. SHAKE WELL BEFORE USING No current facility-administered medications for this visit. FAMILY HISTORY Problem Relation Age of Onset Cancer Mother lung Heart Mother Hypertension Father Heart Father Prostate Cancer Father Diabetes Brother Diabetes Paternal Grandmother Hypertension Paternal Grandmother Family Status Relation Name Status Mo Fa Bro PGMo (Not Specified) Social History Tobacco Use Smoking status: Former Packs/day: 1.00 Years: 10.00 Additional pack years: 0.00 Total pack years: 10.00 Types: Cigarettes Quit date: 07/09/1997 Years since quittin.7 Smokeless tobacco: Never Vaping Use Vaping Use: Never used Substance Use Topics Alcohol use: No Drug use: No Pre-transplant testing: Cardiac: ECHO: 02/27/2022 1. Left ventricle: The cavity size is normal. Wall thickness is normal. Systolic function is normal. The estimated ejection fraction is 55-60%. Wall motion is normal; there are no regional wall motion abnormalities. 2. Aortic valve: Thickening, consistent with sclerosis. 3. Mitral valve: There is mild, 1+ regurgitation. 4. Left atrium: The atrium is mildly dilated. 5. Right ventricle: The RV systolic pressure by Doppler is 27 mm Hg. 6. Pulmonic valve: There is trivial regurgitation. 7. Tricuspid valve: There is trivial regurgitation EKG: Today CXR: Today PAP Test: AMALIA Mammogram: Needs Colonoscopy: Request report Sensitizations: Prior transplant: No Blood transfusions: Yes : Yes Rabbit: No Immunizations: HBV series: Received, date , 11/02/2022 Pneumovax: Received, date 03/04/2020 Influenza vaccine: Received, date 09/06/2019 Covid vaccine: Not received, patient encouraged to obtain Flavio Moreno RN Seen Dr. Ingram REVIEW OF SYSTEMS GENERAL: No weight loss, + malaise or fevers HEENT: Negative for frequent or significant headaches, NECK: Negative for lumps, RESPIRATORY: Negative for cough, hemoptysis, CARDIOVASCULAR: Negative for chest pain, leg swelling, GI: No nausea, vomiting, or diarrhea : No history of dysuria, frequency or incontinence SKIN: Negative for lesions, rash, and itching HEMATOLOGY/LYMPHOLOGY: Negative for prolonged bleeding NEURO: No history of headaches, PHYSICAL EXAMINATION: General appearance: Well appearing, alert, in no acute distress, well-hydrated, well nourished. Skin: Skin color, texture, turgor normal, no suspicious rashes or lesions Head: Normocephalic, no masses, lesions, tenderness or abnormalities Eyes: Anicteric sclera. Pupils are equally roundl Neck: Supple, no adenopathy; Lungs: Lungs clear to auscultation. No wheezing, rhonchi, rales. Heart: RRR without murmur Abdomen: incision well healed Abdomen soft, non-tender. Bowel sounds normal. No masses, organomegaly Extremities: No deformities, edema, s Peripheral pulses: ++ radial , + femoral A: ESRD 2 to HTN PVD CAD Plan: Mrs. Shelton is a very high risk candidate for kidney transplantation pending completion of work up and meeting the rest of the team. Advantages and disadvantages of transplantation versus dialysis were reviewed. Discussed the operative procedure and potential complications. I addressed issues of post- operative recovery and follow up. Few things I have discussed with her and her a. At her age the data of this treatment option in term of survival benefit is not really clear therefore he is doing it more for QOL b. the importance of compliance c. the frequent travel in the early post op period for monitoring d. We also discussed the transplant procedure and the need for urinary catheter and ureteric stent.I overviewed the issues of delayed graft function, the possible need for dialysis, and the possibleneed for re-operation during the early postoperative period. I also informed them of the occasionalneed for blood transfusion and they expressed their understanding and willingness to accept one if the need arises. I mentioned other complications including thromboembolic events, cardiac events, and infection. E. Higher risk of limb injury and loss, Higher risk of bleeding as she is on plavix He should weigh the risk and benefit in the light that she is doing well on HD Lastly I discussed the need for immunosuppressive therapy and the risk associated with this treatment. 1. CT scan abdomen and pelvis non contrast - moderate /severe calcification proximal Some area of EIA okay 2. Serology - After discussion, pt understand that the risk outweigh the benefit We will be ending the evaluation Pt appreciate the time I spent a total of 60 minutes on the date of the service which included preparing to see the patient, [id number] patient care, completing clinical documentation, obtaining and/or reviewing separately obtained history, performing a medically appropriate examination, counseling and educating the pat ient/family/caregiver, ordering medications, tests, or procedures, communicating with other HCPs (not separately reported), independently interpreting results (not separately reported), communicatingresults to the patient/family/caregiver, and care coordination (not separately reported). Gerry Ingram MD documented in this encounterMer[facility]08-29-[facility]23 History of Present illness Narrative* Emelia Nieves, [facility] - 04/20/2023 10:35 AM EDT PSYCHOSOCIAL EVALUATION FOR KIDNEY TRANSPLANT Social Supports: Patients (79 years) and the patients grandsons grandma (51 years old). A secondary caregiver will need to be confirmed prior to approval for transplant. Financial Concerns: Medicare and [employer] [facility] [employer] (private paid). She is retired. Compliance: The patient shows good compliance through dialysis. Mental Health: Stable Substance Use: Denies SIPAT: 12 REFERRAL: Marcos Shelton was referred to Social Work for a psychosocial evaluation to establish if she would be a suitable candidate to receive a kidney transplant. Race/Gender: White, Female [place] Citizen: Yes DIALYSIS START DATE: February 2022 The name of the dialysis unit is [facility]. The phone is [phone]. This social work psychosocial evaluation was completed with Marcos Shelton on April 20, 2023. She was accompanied by her , Fausto. The pt does use assistive devices for ambulation - the patient presented in a wheelchair for long distances but normally uses a walker. IDENTIFYING INFORMATION/LIVING SITUATION Marcos Shelton [phone] [id number] [facility] [id number]. [place] [address] [facility]. Household members: Patients and great grandson (age 8 - patient has temp custody currently) There is 1 licensed drivers in the home and 1 working vehicles. The patients drove them up to this morning for the appointments today. Are you aware that all post-transplant appointments will [facility]? Yes. How do you plan to come to the [facility] after transplant? The patient plans to have her drive her to all post transplant appointments. Caregiver responsibilities: Yes - the patients great grandson will be cared for by other family members while patient is recovery. Pets in the home: 3 dogs. 1 bird. 1 rat. Pet precautions reviewed. COMPREHENSION OF MEDICAL SITUATION Marcos Shelton is unsure what her kidney disease is due. The patient explained her PCP referred her to a smoking tobacco packing machine hand 2-3 years ago. HEALTH Pregancies (females): 2 pregnancies - 1 miscarriage COMPLIANCE Missed doctor appointments: No issues reported. Missed/shortened/rescheduled dialysis appointments: No issues reported. Knowledge of medications: The patient has a good knowledge of her medications and their purpose. Medication Compliance: No issues reported. She uses a pill organizer - the patient and her set it up together. Have you ever stopped taking any medication because you lost your insurance you could not afford it? No Have you stopped taking medication because you felt you didn't need it or because of side-effects? No Dialysis compliance check: 05/07/2023 Transplant social media intern called patients dialysis center and spoke with RNZafar. The dialysis nurse confirmed the patient is compliant with coming to all dialysis treatments and staying for her full sessions. The nurse feels the patient is able to follow recommendations given to her. Labs reported: phosphorous 3.8 potassium 3.7 albumin 3.7 Potential living donors: No SUBSTANCE USE/ABUSE Alcohol: The patient does not drink. Tobacco: She quit smoking cigarettes in 1996. Exposure to second hand smoke: No Cocaine, THC, Heroin, or Other Recreational Drug Use: No Over the Counter Medications: No Opioids/Controlled Substances: No LEGAL ENCOUNTERS History of any legal issues: No Drivers license: She let her drivers license - went to retake the test but failed. MENTAL HEALTH HISTORY Affect: Appropriate/Consistent Alert: Alert Orientation: person, place and time Appearance: Unremarkable/appropriate Cognitive Function: Cognition appears relatively intact Mood: Euthymic Are you having thoughts that you would be better off , or of hurting yourself in some way? No Current mental health diagnoses / current feelings of anxiety or depression: Denies any current symptoms of anxiety or depression. Previous mental health diagnoses: No Psychiatric medication: No. Who prescribes: NA Counseling: No Psychiatric services: No History of suicide attempt(s) or ideation: No History of harming self: No History of harming others: No History of psychiatric hospitalization: No Is a referral to Transplant Psychiatry indicated for further evaluation or screening: No EDUCATION Highest Educational Level: 11th grade Reading/Comprehension Problems Then or Now: No HEALTH INSURANCE/FINANCIAL Medical Insurance: Medicare and [facility] supplemental (private paid) Payer of Insurance: Patient Prescription Coverage: [employer] Insurance Policy [employer]: Patient Medicare Status: Medicare - age related. Employment status: Retired. 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 Household Income: $32,000 per year (patient and - social security) Pt was given a list of the medications for Kidney [place] recipients to learn how her insurance coverageapplies. SW informed pt that she must be prepared to cover the copays of her immunosuppression and anti viral medications. CAREGIVER/SUPPORT PLAN Primary Caregiver: Fausto patients . He is 79 years old and retired. Contact Number: [phone] Health Status and Availability of Caregiver: good health, available as needed Valid Pediatric Np's License/Working Vehicle: Yes, yes (willing to drive to [place]) Caregiver Substance Use: No Caregiver Mental Health: No Secondary Caregiver: Carlita patients grandson other grandmother. She is 51 years old and works at [employer] in [place]. Contact Number: [phone] Health Status and Availability: good health, per patient probably can take time off of work Valid Pediatric Np's License/Working Vehicle: Yes, yes Caregiver Substance Use: No Caregiver Mental Health: No PSYCHOSOCIAL RISKS Adherence to Treatment Protocols: Yes Ability to Understand Transplant Center's System of Care: Yes Active Psychiatric Diagnosis: No Financial Resources or Support: Yes The patients caregiver support plan will need to be confirmed Body Image/Scar: No IMPRESSIONS/RECOMMENDATIONS At this time, Marcos Shelton is not yet a suitable psychosocial candidate for a kidney transplantuntil her secondary caregiver is confirmed. There are no psychosocial concerns that could have a negative impact on the successful and sustained outcome of a kidney transplant. The patient would havecaregiver support from her (79 years) and the patients grandsons grandma. A secondary caregiver will need to be confirmed prior to approval for transplant. The patient has Medicare and [facility] supplemental (private paid) for health insurance. Transplant social media intern encouraged the patient to investigate potential transplant medication co-pays. She is retired. The patient shows good compliance through dialysis. There were no mental health or substance use barriers identified. The patient and her presented as focused on the evaluation. The patient should be scheduled for yearly visits and/or phone contact with social work for the following purposes: to review health insurance, changes of caregiver support, changes in financial/employment status, and past or current issues with alcohol or drug use. We reviewed the follow up care sequence, including lab work twice a week and weekly post transplantclinic appointments. We discussed the precautions to take because of being immunosuppressed. Marcos Shelton was advised that it is imperative to adhere to the medical regimen and recovery restrictions. Marcos Shelton indicated understanding of this information. Marcos Shelton had the opportunity to discuss any issues and questions. Patient was given information and brochures about the kidney transplant process and fund raising options. The patient was given the phone number of the transplant social media intern to address future concerns. ONDINA Sen, ANASTASIIA, [facility] Transplant Environmental Monitoring Specialist documented in this encounterMer[facility] History of Present illness Narrative* Kamari Ly MD - 04/20/2023 10:16 AM EDT [facility] Transplant Evaluation CC: Consultation for Kidney transplant evaluation. Referred by: Melissa Currie [address] [place], [place] [address] [address] [facility] [address] I will communicate with the referring provider by letter and/or shared electronic medical record. HPI: 72 year old female here for ktxp evaluation. Presents in wc for distance. Also uses walker to ambulate. ESRD sec unknown. Hemodialysis initiated 04/22/2022 via [facility]. Hx of Neuropathy, COPD, Asthma, Mitral valve disorder, CAD s/p cardiac stents x 5 (2007, 2009), HLD, vertebral osteomyelitis, RA, diverticulitis, Callaway's Esophagus (GIB), seizures (Keppa prescribed), PTH, wound dehiscence, former smoker quit 1996, Lumbar Fusion, PVD s/p bilat LE stents in 2011 , excision breast lesion, carpal tunnel surgeries. Hemodialysis initiated 04/22/2022 via [facility] Midodrine: denies Blood thinner: Plavix & ASA Blood transfusion: Yes LD:Denies UOP: 1L Abdominal Surgeries: Appendectomy & AMALIA Kidney stones: denies UTI: >5 years Hernia: denies Skin cancer: denies Last hospitalization 2021 when starting dialysis Covid infection:denies G 3 P2 SAB x 1 Bilateral LE stents ? Femoral Cardiovascular Disease: yes Peripheral Arterial Disease: (TIA non-embolic, CVA non-embolic, amputation, carotid artery stenosis, abnormal PVRs, claudication history, decreased pulses, etc.): Yes Stroke: NO Claudication: YES Carotid Artery Stenosis: NO DM: No Prior transplant: No CKD: Yes: Cause of CKD: unknown Hemodialysis, Start date: 04/22/2022 Living Donors: No Residual UO: 1L Hypercoagulable (history of DVT/PE, miscarriages, prior use of anticoagulation, etc.):No Malignancy (including skin cancer): No PAST MEDICAL HISTORY Diagnosis Date Abdominal pain, right upper quadrant Acid reflux Anemia associated with chronic renal failure 01/02/2020 Asthma Callaway's esophagus CAD (coronary artery disease) Constipation Diverticulitis Early satiety Essential hypertension, benign Fatigue Heart disease Hemorrhoids Hyperparathyroidism (HCC) Loss of weight Mitral valve disorders(424.0) with prolapse, needs abx prophylaxis Other and unspecified hyperlipidemia PVD (peripheral vascular disease) (HCC) Rheumatoid arthritis(714.0) Seizure (HCC) Wound dehiscence PAST SURGICAL HISTORY Procedure Laterality Date APPENDECTOMY BACK SURGERY HX 2009 lami and fusion L45 for spondylolisthesis BACK SURGERY HX 10/2020 CC PTCA STENT 2007, 2009 COLONOS W/REM POLYP SNARE 09/05/2009 repeat in EXCIS BREAST LESION rt PAST SURGICAL HISTORY OF Left foot PAST SURGICAL HISTORY OF Right shoulder PAST SURGICAL HISTORY OF Right hip surgery REVASCULARIZATION ILIAC ART ANGIOP EA IPSI VSL bilateral REVISE MEDIAN N/CARPAL TUNNEL SURG x 2 Carpal tunnel decomp TOTAL ABDOM HYSTERECTOMY Hysterectomy, AMALIA Current Outpatient Medications Medication Sig VITAMIN B-6 100 mg tablet take 1 tablet by mouth once daily promethazine-codeine 6.25-10 mg/5 mL syrup give 5 milliliters by mouth every 4 hours if needed for cough --NOT TO EXCEED 30 MLS PER 24 HOURS DAPTOmycin (CUBICIN) 350 mg injection Inject 350 mg intravenously every 48 hours. aspirin, enteric coated (ASPIRIN, ENTERIC COATED) 81 mg EC tablet q 24 HR. cyclobenzaprine (FLEXERIL) 10 mg tablet Take 10 mg by mouth three times daily. rosuvastatin (CRESTOR) 40 mg tablet Take 1 tablet by mouth once daily. levETIRAcetam (KEPPRA) 500 mg tablet Take 500 mg by mouth twice daily. cholecalciferol (VITAMIN D-3) 5,000 unit tab Take 5,000 Units by mouth once daily. calcitriol (ROCALTROL) 0.25 mcg capsule Take 0.25 mcg by mouth once daily. Multivitamin with Iron-Mineral tab Take 1 tablet by mouth once daily. hydrOXYzine HCl (ATARAX) 25 mg tablet Take 25 mg by mouth every 6 hours as needed. furosemide (LASIX) 40 mg tablet Take 40 mg by mouth. Wednesday, Wednesday and Wednesday linaCLOtide (LINZESS) 290 mcg capsule Take 290 mcg by mouth as needed. PRN omeprazole 40 mg capsule Take 40 mg by mouth once daily. metoprolol tartrate, short acting, (LOPRESSOR) 25 mg tablet Take 25 mg by mouth once daily. cyanocobalamin, vitamin B-12, (VITAMIN B-12 INJECTION) by INJECTION(UNSPECIFIED PARENTERAL ROUTES) route once every month. temazepam 30 mg cap Take 30 mg by mouth daily at bedtime. montelukast sodium(SINGULAIR 10 MG TAB) take one tablet by mouth daily NITROGLYCERIN 0.4 MG SUBLINGUAL TAB Dissolve under the tongue every 5 minutes as needed. Usual dosefor angina is 1 tablet every 5 minutes for maximum of 3 doses in 15 minutes. ALBUTEROL 90 MCG/ACTUATION AEROSOL INHALER Inhale 1-2 Puffs as instructed every 4 hours as needed. SHAKE WELL BEFORE USING No current facility-administered medications for this visit. FAMILY HISTORY Problem Relation Age of Onset Cancer Mother lung Heart Mother Hypertension Father Heart Father Prostate Cancer Father Diabetes Brother Diabetes Paternal Grandmother Hypertension Paternal Grandmother Family Status Relation Name Status Mo Fa Bro PGMo (Not Specified) Social History Tobacco Use Smoking status: Former Packs/day: 1.00 Years: 10.00 Additional pack years: 0.00 Total pack years: 10.00 Types: Cigarettes Quit date: 07/09/1997 Years since quittin.7 Smokeless tobacco: Never Vaping Use Vaping Use: Never used Substance Use Topics Alcohol use: No Drug use: No Pre-transplant testing: Cardiac: ECHO: 02/27/2022 1. Left ventricle: The cavity size is normal. Wall thickness is normal. Systolic function is normal. The estimated ejection fraction is 55-60%. Wall motion is normal; there are no regional wall motion abnormalities. 2. Aortic valve: Thickening, consistent with sclerosis. 3. Mitral valve: There is mild, 1+ regurgitation. 4. Left atrium: The atrium is mildly dilated. 5. Right ventricle: The RV systolic pressure by Doppler is 27 mm Hg. 6. Pulmonic valve: There is trivial regurgitation. 7. Tricuspid valve: There is trivial regurgitation EKG: Today CXR: Today PAP Test: [facility] Mammogram: Needs Colonoscopy: Request report Sensitizations: Prior transplant: No Blood transfusions: Yes : Yes Rabbit: No Immunizations: HBV series: Received, date , 11/02/2022 Pneumovax: Received, date 03/04/2020 Influenza vaccine: Received, date 09/06/2019 Covid vaccine: Not received, patient encouraged to obtain Flavio Moreno RN Staff: I have interviewed the patient and confirmed the historical details above. HPI above by me. REVIEW OF SYSTEMS: All other reviewed and negative other than HPI. Functional capacity: Wheelchair use for long distances KARNOFSKY INDEX SCALE (Adult patients aged 18 and older) - Used to rate a patient's functional status before and after a medical procedure: 80 - Normal activity with effort: some signs or symptoms of disease. PHYSICAL EXAMINATION: Blood pressure 132/57, pulse 69, temperature 36.1 C (96.9 F), temperature source Temporal, height 162.6 cm (5' 4), weight 78.4 kg (172 lb 12.8 oz), SpO2 98 %. Head and neck: NAD op clear, no mary, no carotid bruits, nl thyroid CVS: rrr nls1s2 w/o mrg Lungs: cta bilat Abd: soft, nt, nd, bs+, no HSM; no abd bruits MS: no active synovitis, no muscle tenderness Skin: no skin lesions, no cyanosis no peripheral edema Vascular: preserved pulses. RUE AVF Neuro: non focal Labs/Studies: Cancer Screening: Type of Cancer: Screening Criteria: Cervical Females age 21-29: PAP Q3yrs; HPV if PAP abnormal Females age 30-65: PAP & HPV Q5yrs; OR PAP only Q3yrs Breast Females age 20-39: Clinical Breast Exam Q3yrs Females age 40+: Mammogram & Clinical Breast Exam Q1yr Prostate Males age 40+: PSA will be checked at evaluation Colon All patients age 50+: colonoscopy Q10yrs or as recommended based on results Lung Patients meeting all of the following criteria will be scheduled for a Chest CT without Contrast at evaluation if they have not had a Chest CT within the past year: 1. Age 55-74 2. Have at least a 30 pack-year smoking history 3. Are still smoking OR have quit smoking within the last 15 yrs Patients that do not meet the criteria above or who had a Chest CT within the past year will have aCXR PA & Lat at evaluation. Skin All patients: Skin will be examined at evaluation Based upon the above screening criteria, the patient will require: No additional testing is needed at this time. Patient is up to date with cancer screening. 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 Patient has a long history of peripheral arterial disease with bilateral femoral stents, likely vasculopathy leading to end-stage kidney disease, prior coronary artery disease, COPD among other comorbidities. The patient also has very limited mobility needing the use of a wheelchair for most significant distances. The patient is a high risk candidate for kidney transplantation. We had the opportunity to discuss the following, specific for this patient: 1) Risks and benefits of transplantation including overall average increase in life expectancy and higher quality of life with transplantation for most recipients but not all; however, there is during the immediate transplant period a higher risk of over staying on dialysis that is variable depending on recipient and donor factors. 2) Types of donor organs, including possibility of living donors, donors, donor quality asassessed by KDPI (higher KDPI being lower quality with especial attention to those organs with KDPI>85%), hep C donors, donor after cardiac (DCD) and CDC Increased risk donor types, with relative benefit of living donation over donor transplantation explained. 3) Detailed discussion regarding immunosuppression following transplantation, including usual protocols and drugs involved. This included the risks of infection, possibly life threatening, and malignancy. We also discussed possible need for dialysis post-transplant and re-admission to the hospital. 4) Post-transplant care and compliance with medical treatment, noting that this is very important for optimal transplant outcomes. 5) Possible recurrence of disease which depending on condition it could lead to graft failure. Patient expresses understanding of the information discussed. Given her current issues, we plan: 1. Labs per protocol 2. present to committee prior to any testing Opportunity to ask questions given. Appears to understand. Communication with referring provider done by letter. Kamari Ly MD documented in this encounterMer[facility]08-29-2023 History of Present illness Narrative* Maryjane Waldrop, RD - 04/20/2023 9:24 AM EDT Nutrition Therapy Initial Assessment Nutrition Diagnosis: Behavioral-Environmental: Food and nutrition related knowledge deficit, related to, lack of prior exposure to information , as evidenced by caregiver has no prior knowledge of need for food and nutrition related information.. RECOMMENDED MALNUTRITION DIAGNOSIS: NO MALNUTRITION IDENTIFIED NUTRITION CARE PLAN Nutrition Intervention 04/20/2023: Modify type and amount of food at meals and snacks: 1. Limit sodium to 2000 mg per day or less -avoid salting foods or using salt when cooking -try to use salt free blends, other herbs and spices for flavor - continue to use Mrs Dash -avoid restaurants and fast food -try to refer to food labels on packaged, processed foods for sodium content (aim for <300 mg per serving) 2. Aim for 54-70 g protein daily -try to include a source of protein every time you eat 3. Increase activity level as tolerated 4. Try to follow Healthy plate method at meal times -1/4 plate lean protein, 1/4 plate complex carbohydrates, 1/2 plate non starchy vegetables 5. Continue to limit sources of potassium and phosphorous per dialysis RD Nutrition Pre-Transplant Assessment No contraindications Nutrition Monitoring & Evaluation: monitor nutrition related labs, po intake, weight changes, patient adherence to above recommendations Need for Follow up: PRN Patient presents for kidney transplant evaluation. PMH shows HTN, barretts esophagus, ESRD on dialysis. Patient reports no changes in weight or appetite. Patient reports her potassium and phosphorus labs at dialysis have been low. Diet recall appears low in fruits, patient reports she's cut back onthis due to fluid restriction. Patient reports she's cautious of sodium. Patient's is doingthe cooking at home, he states he's using salt free seasonings (Mrs Dash). Appears patient eats lower carbohydrates to maintain current weight. Exercise appears low however notes she's fairly active at home. 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 Resting Metabolic Rate: 1295 Malnutrition Screening Significant unintentional weight loss? No Eating less than 75% of usual intake for more than 2 weeks? No Potential Signs of Inflammation: chronic condition Education Materials Provided: None this visit READINESS TO LEARN Cognitive ability: Alert and oriented Motivation to learn: Interested Family support: Unable to assess - Family not present Instruction provided to: Patient Patient learns best by: Multiple Methods Factors affecting learning: None Physical limitations affecting learning: None Referred/Supervised by: Isatu/Troy CHRISTIANSON Billing Type: Initial Assess/15 min 1 unit SIGNATURE: Maryjane Waldrop RD PATIENT NAME: Marcos Shelton DATE: April 20, 2023 TIME: 9:31 AM documented in this encounterMercy Health [facility]08-29-2023 History of Present illness Narrative* Julia Aguilar RN - 04/20/2023 8:00 AM EDT PRE-TRANSPLANT PATIENT EDUCATION NOTE Type of Transplant: Kidney Informed Consent for Evaluation signed: Yes Multiple Listing Form signed: Yes READINESS TO LEARN: Cognitive Ability: Alert and oriented Motivation to Learn: Interested Family Support: High - Very involved in pt care Instruction Provided to: Patient and Spouse Patient Learns Best by: Multiple Methods Factors Affecting Learning: None Physical Limitations Affecting Learning: None LEARNING RESPONSE: Diagnosis: ESRD Education Topics/Teaching Points: -Discussed living donor evaluation and approval process. -Discussed the evaluation and listing process. -Discussed the different types of donors (KDPI scoring, DCD, High Risk). -Explained EPTS scoring and how it is calculated. -Explained the surgical procedure and potential complications, surgeons, hospital stay at the time of transplant. -Explained lifetime immunosuppression therapy and frequency of blood draws/labs post-op and post-opcourse of treatment. -Reviewed National and [facility] outcomes from the most recent [facility] center-specific report; a copy of theprogram summary was given to the patient. -Explained that if the transplant is not performed at a Medicare-approved transplant center it could affect the ability to have immunosuppressive medications paid under Medicare Part B. Supplemental Material: -Pre-Transplant Patient Education Folder -UNOS: Questions & Answers for Transplant Candidates about Multiple Listing and Waiting Time Transfer -UNOS: Questions & Answers for Transplant Candidates about Kidney Allocation Policy -Directions to access [facility]'s data through the [facility] website. -Informed Consent for Transplant Program Participation patient education packet -National Kidney Registry pamphlet -Covid-19 Vaccination for Transplant Candidates Method of Instruction: Group class instruction Written instruction - handouts Verbal instruction Computer Patient/Family Response: Patient asked appropriate questions, which were answered satisfactorily. Follow-Up Plan: Complete - No need for follow-up Referral/Recommendation: None Julia Aguilar RN Pre-Deposit Clerk documented in this encounterMercy Health [facility]08-15-2023 Hospital Discharge instructions Patient Education 04/06/2023 17:36:12 Leg Swelling in a Single Leg Leg Swelling in a Single Leg Swelling of the arms, feet, ankles, and legs is called edema. It is caused by extra fluid collecting in the tissues. Because of gravity, extra fluid in the body settles to the lowest part. That is why the legs and feet are most affected. You have swelling in a single leg. Some of the causes for swelling in only a single leg include: Infection in the foot or leg Long-term problem with a vein not working well (venous insufficiency) Swollen, twisted vein in the leg (varicose veins) Insect bite or sting on the foot or leg Injury or recent surgery on the foot or leg Blood clot in a deep vein of the leg (deep vein thrombosis or DVT) Inflammation of the joints of the lower leg Medical treatment will depend on what is causing your swelling. Home care Follow these guidelines when caring for yourself at home: Don t wear tight clothing. Keep your legs up while lying or sitting. Take any medicines as directed. If infection, injury, or recent surgery is the cause of your swelling, stay off your legs as much as possible until your symptoms get better. 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 Take breaks and walk around every few hours. Talk with your healthcare provider about wearing support stockings to help lessen swelling during the day. Wear compression stockings with your doctor's approval Follow-up care Follow up with your healthcare provider as advised. Call 911 Call 911 if any of these occur: Shortness of breath or trouble breathing Chest pain Coughing up blood Fainting or loss of consciousness When to seek medical advice Call your healthcare provider right away if any of these occur: Increased pain, swelling, warmth, or redness of the leg, ankle, or foot Fever of 100.4 F (38 C) or higher, or as directed by your healthcare provider Weakness or dizziness Shaking chills Drenching sweats [phone] [employer]. [address] [place] [address]. All rights reserved. This information is not intended as a substitute for professional medical care. Always follow yourhealthcare professional's instructions. Follow Up Care 04/06/2023 15:47:38 With:BELL MAHER MD Address: [place] [address]- When:2-4 days [facility] 08-15-2023 Note Discharge Instructions Thank you for allowing [facility] to assist you with your healthcare needs. The following is importantdischarge information regarding your hospital visit. Diagnosis from Today's Visit Lower leg pain-swelling What to Do Next Instructions from Your Care Team No qualifying data available. Post Acute Orders No qualifying data available. You Need to Schedule the Following Appointments Follow Up with BELL MAHER MD When Within 2-4 days Where: [address] [place], [place] [id number]- Allergies Macrodantin (HIVES) Welchol (Unsure) Zaroxolyn (Unsure) colesevelam (Unknown) metOLazone (Unknown) nitrofurantoin (Unknown) pravastatin (liver) simvastatin (Liver) traMADol (GI upset) Medications Please ask your primary doctor or pharmacist before taking any other medication not listed, including over the counter drugs, herbal medications, vitamins and or supplements as they may interact withyour home medications. What How Much When Why Instructions Last Dose Unchanged albuterol (albuterol 2.5 mg/ 3 mL (0.083%) inhalation solution) 3 Milliliter by inhalation Every 6 hours as needed for for wheezing Unchanged aspirin (aspirin 81 mg oral delayed release tablet) 1 tab(s) by mouth Once a day Unchanged cholecalciferol (Vitamin D3) 5,000 International unit by mouth Once a day Unchanged clopidogrel (Plavix 75 mg oral tablet) 1 tab(s) by mouth Once a day Unchanged cyanocobalamin (cyanocobalamin 1000 mcg/ mL injectable solution) 1 Milliliter Intramuscular Once a month Unchanged evolocumab (Repatha 140 mg/ mL subcutaneous solution) 1 Milliliter Subcutaneous Every other week Unchanged furosemide (furosemide 40 mg oral tablet) 1 tab(s) by mouth Once a day Unchanged hydrOXYzine (hydrOXYzine hydrochloride 25 mg oral tablet) 1 tab(s) by mouth Four (4) times a day Unchanged levETIRAcetam (levETIRAcetam 500 mg oral tablet) 1 tab(s) by mouth Two (2) times a day Unchanged levothyroxine (levothyroxine 75 mcg (0.075 mg) oral tablet) 1 tab(s) by mouth Once a day Unchanged linaclotide (Linzess 145 mcg oral capsule) 1 cap by mouth Once a day before a meal 30 minutes before breakfast. Do NOT crush/ chew Unchanged metoprolol (metoprolol succinate 25 mg oral TABLET extended release) 1 tab(s) by mouth Once a day Do not crush or chew (controlled release) Unchanged montelukast (Singulair 10 mg oral tablet) 1 tab(s) by mouth Once a day (in the evening) Unchanged multivitamin (Nephro-Jose oral tablet) take 1 tablet by mouth once daily Unchanged nitroGLYcerin (Nitrostat 0.4 mg sublingual tablet) 1 tab(s) under the tongue Every 5 minutes as needed for as needed for chest pain Unchanged omeprazole (omeprazole 40 mg oral delayed release capsule) 1 cap by mouth Two (2) times a day Unchanged potassium chloride (Potassium Chloride (Eqv-K-Tab) 20 mEq oral tablet, extended release) 1 tab(s) by mouth Once a day Take with food Unchanged ranolazine (Ranexa 500 mg oral tablet, extended release) 1 tab(s) by mouth Two (2) times a day Unchanged rosuvastatin (rosuvastatin 40 mg oral capsule) 1 cap by mouth Once a day Unchanged rosuvastatin (rosuvastatin 40 mg oral tablet) 1 tab(s) by mouth Every day Hypothyroidism Hypertension Unchanged temazepam (temazepam 30 mg oral capsule) 1 cap by mouth Daily at bedtime as needed for as needed for sleep Insomnia Duration: 30 Days Unchanged tiZANidine (tiZANidine 4 mg oral tablet) 1 tab(s) by mouth Every 8 hours Subcutaneous nodule Muscle spasm Please take this list to your next doctor s visit. Bring all medications you take, including over the counter medications, herbals and other supplements with you to your doctor s visit. Patients and families are reminded to discard old lists and to update any records with all medication providers or retail pharmacies. Education Materials Leg Swelling in a Single Leg Swelling of the arms, feet, ankles, and legs is called edema. It is caused by extra fluid collecting in the tissues. Because of gravity, extra fluid in the body settles to the lowest part. That is why the legs and feet are most affected. You have swelling in a single leg. Some of the causes for swelling in only a single leg include: Infection in the foot or leg Long-term problem with a vein not working well (venous insufficiency) Swollen, twisted vein in the leg (varicose veins) Insect bite or sting on the foot or leg Injury or recent surgery on the foot or leg Blood clot in a deep vein of the leg (deep vein thrombosis or DVT) Inflammation of the joints of the lower leg Medical treatment will depend on what is causing your swelling. Home care Follow these guidelines when caring for yourself at home: Don t wear tight clothing. Keep your legs up while lying or sitting. Take any medicines as directed. If infection, injury, or recent surgery is the cause of your swelling, stay off your legs as much as possible until your symptoms get better. 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 Take breaks and walk around every few hours. Talk with your healthcare provider about wearing support stockings to help lessen swelling during the day. Wear compression stockings with your doctor's approval Follow-up care Follow up with your healthcare provider as advised. Call 911 Call 911 if any of these occur: Shortness of breath or trouble breathing Chest pain Coughing up blood Fainting or loss of consciousness When to seek medical advice Call your healthcare provider right away if any of these occur: Increased pain, swelling, warmth, or redness of the leg, ankle, or foot Fever of 100.4 F (38 C) or higher, or as directed by your healthcare provider Weakness or dizziness Shaking chills Drenching sweats [id number] [employer]. [address] [place] [address]. All rights reserved. This information is not intended as a substitute for professional medical care. Always follow yourhealthcare professional's instructions. Additional Information VACCINATE! IT SAVES LIVES! Members of the community who have not yet received the COVID-19 vaccine and would like to receive it can visit one of [facility] vaccine clinics. There are many vaccine clinic locations within the [facility]. For locations and available times, please visit www.gettheshot.coronavirus.[place].gov/. It is important to note that some COVID mobile vaccine clinics are held outdoors and may be canceled in rainy or stormy conditions. To learn more about pediatric vaccinations (ages 5-11), we invite you to visit the [facility] webpage. https://www.[facility].org/pages/1507-Ereih-Coqddhsedkt-Azdpqyqwzt-Gqrnh-Eqq stions.htmlTo learn more about the COVID-19 vaccine, we invite you to visit the CDC website for a list of frequently asked questions. https://www.cdc.gov/coronavirus/2019-ncov/vaccines/faq.html [facility] Patient Portal Access Instructions: Stay connected with your healthcare team and access your personal medical information anytime with the [facility] Patient Portal. If you would like a full copy of your medical records please contact the [facility] Medical Records Department Wednesday through Wednesday between 8a.m. and 4:30p.m. Please follow the directions below to access the portal: 1.Access the email account you provided upon registration to the [facility].2.Look for an invitation email from [facility].3.Open the email and access the invitation link: Accept Invitation to [facility]4.Fill in the required carroll to create your account. Sign into www.[employer]) with your username and password that you created in the above steps to stay up to date. You can then view a summary of results, a summary of your visits, and the ability to download your summaries to your computer or send the information securely to a physician. Remember that your healthcare information is confidential, so carefully consider who you will allow to register on the [facility] Patient Portal for access to your information. You can also access the [facility] Patient Portal on the [employer]. Simply click on Health Records under [employer] and then click on the [facility] logo. HOW TO SAFELY DISPOSE OF PRESCRIPTION MEDICATIONS Please use one of the following methods to safely dispose of your unused medications. 1.Use a drug disposal kit: the drug disposal pouch allows you to safely discard your old and unuseddrugs. Ask your nurse to give you one when you are discharged.2.Visit a local take-back location: Many local pharmacies and police departments have programs that collect old and unwanted prescriptiondrugs. Call your local pharmacy or go to http://[employer].Endra/4O5Ew5k to find one close to you.3.Make use of household items: Use cat litter or old coffee grounds to dispose medications if other options arenot available. Mix your drugs with these household products, seal them in an airtight container andthrow it into the garbage. Call [facility]: [phone] to be sure your drugs can be disposed of in this way. Some medicines may require a different approach.4.Never flush your medications down the toilet. IF YOU HAVE BEEN PRESCRIBED AN OPIOIDS FOR PAIN If you have been prescribed an opioid (such as hydrocodone, oxycodone or morphine), it is critical to understand the possible side effects and risks of opioid pain medications. Even when taken as directed, opioids can have several side effects including: Tolerance, meaning you might need to take more of a medication for the same pain relief. Nausea, vomiting and/or constipation. Sleepiness, dizziness, dry mouth, confusion, depression or itching. Physical dependence, meaning you have withdrawal symptoms when a medication is stopped ? this can develop within a few days. KNOW YOUR RESPONSIBILITIES It is important to know exactly how much and how often to take the opioid pain medications you are prescribed. Never take opioids in higher amounts or more often than prescribed. Do not combine opioids with alcohol or other drugs that cause drowsiness, such as benzodiazepines, also known as benzos,including diazepam and alprazolam, muscle relaxants or sleep aids. Never sell or share prescriptionopioids. This is illegal. Store opioids in a secure place and out of reach of others (including children, family, friends and visitors). The last page(s) of this document has been signed and retained as a CHART COPY Signatures Patient Education Materials Leg Swelling in a Single Leg Medication Leaflets My discharge plan and instructions have been reviewed and explained to me and I,MARCOS SHELTON understand my current condition and have read and understand these discharge instructions. I have received a written copy of the plan/instructions. If I have questions, I am aware that I should contactmy doctor. 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 Cheatham [facility] November 09, 2022 8:32am Note Date/Time November 09, 2022 8:3 2am [facility] Medical Records Department [address] [place] [address] History & Physical Exam 11/09/22 0832 MR#: [id number] Acct: [id number] Name: MARCOS SHELTON Rep #:[id number] 120 : 1950 72 From: Fausto Cheatham MD PCP: Dr. Bell Maher MD Status:[facility] Location: [facility] History and Physical Date of Admission: 11/09/22 Visit Reasons:?issues with fistula, infiltrating Chief Complaint: check fistula Business Team Leader Required: No Is patient in pain?: No Allergies colesevelam HCl [From WelChol] Allergy (Verified 11/05/22 09:09) Unknownmetolazone [From Zaroxolyn] Allergy (Verified 11/05/22 09:09) Unknownnitrofurantoin macrocrystalline [From Macrodantin] Allergy (Verified 11/05/22 09:09) UnknownPenicillins Allergy (Verified 11/05/22 09:09) Unknownpravastatin sodium [From Pravachol] Allergy (Verified 11/05/22 09:09) Unknowntramadol Adverse Reaction (Verified 11/05/22 09:09) Nausea Medications nitroglycerin 0.4 mg sublingual tablet 0.4 mg sublingual Q5M PRN Chest Pain 06/19/15 [History Confirmed 11/05/22] aspirin 81 mg tablet,delayed release 81 mg PO DAILYCM 11/05/17 [Rx Confirmed 11/05/22] hydroxyzine HCl 25 mg tablet 25 mg PO Q6H PRN PRN Itching 02/10/19 [History Confirmed 11/05/22] rosuvastatin 20 mg tablet 40 mg PO DAILY cholesterol 02/10/19 [History Confirmed 11/05/22] omeprazole 40 mg capsule,delayed release 40 mg PO BID GERD 04/11/19 [History Confirmed 11/05/22] clopidogrel 75 mg tablet 75 mg PO DAILY 10/10/21 [History Confirmed 11/05/22] furosemide 40 mg tablet 40 mg PO DAILY 10/17/21 [History Confirmed 11/05/22] levetiracetam 500 mg tablet (Keppra) 500 mg PO BID 10/17/21 [History Confirmed 11/05/22] montelukast 10 mg tablet 10 mg PO DAILY 10/17/21 [History Confirmed 11/05/22] potassium chloride 10 mEq tablet,extended release 20 meq PO DAILY 10/17/21 [History Confirmed 11/05/22] pyridoxine (vitamin B6) 100 mg tablet (Vitamin B-6) 100 mg PO DAILY 10/17/21 [History Confirmed 11/05/22] temazepam 30 mg capsule 30 mg PO QHS 10/17/21 [History Confirmed 11/05/22] levothyroxine 50 mcg tablet 75 mcg PO DAILY thyroid 10/27/21 [History Confirmed 11/05/22] metoprolol succinate 25 mg tablet,extended release 24 hr 25 mg PO DAILY heart 10/27/21 [History Confirmed 11/05/22] ranolazine 500 mg tablet,extended release,12 hr 500 mg PO BID heart 10/27/21 [History Confirmed 11/05/22] hydrocodone-acetaminophen 5-325mg 5mg-325mg 1 tab PO Q8H PRN pain 2 days #6 tabs110/07/21 [Rx Confirmed 11/05/22] linaclotide 145 mcg capsule (Linzess) 145 mcg PO 11/05/22 [History Confirmed 11/05/22] PFSH Medical History? ANDRIY (acute kidney injury) Anemia Arthritis Asthma Atherosclerotic heart disease of [place] coronary artery without angina pectoris Back pain [place] esophagus Cardiology follow-up encounter Cellulitis Cellulitis of right lower extremity Congestive heart failure (CHF) Dietary restriction Foot drop, left Former smoker Gastric reflux High cholesterol History of DVT (deep vein thrombosis) History of echocardiogram History of edema History of heart attack History of IBS History of pain when walking History of renal dialysis History of renal disease Hyperlipidemia Hypertension Lumbar disc disease Lumbar radiculopathy Nonrheumatic mitral valve regurgitation PAD (peripheral artery disease) Peripheral neuropathy Renal insufficiency Rheumatoid arthritis Seizures Shortness of breath on exertion Spinal stenosis of lumbar region Thyroid disease Ulcer of left lower extremity with fat layer exposed Ulcer of right lower extremity with fat layer exposed Urinary retention 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 History of arteriovenostomy for renal dialysis (~12/2021) History of bunionectomy of left great toe History of cardiac catheterization History of carpal tunnel surgery History of hysterectomy History of laminectomy Hx of appendectomy Postsurgical percutaneous transluminal coronary angioplasty (PTCA) status Presence of stent in coronary artery S/P arteriovenous (AV) fistula creation Status post insertion of iliac artery stent Family History? Father Heart diseaseMother Myocardial infarction,? Onset Age: 50 CAD (coronary artery disease)Brother Diabetes Social History? Smoking Status:? Former smoker alcohol intake:? never substance use type:? does not use HPI HPI Surgical H&P: Yes HPI: Patient is a 72 y/o F I am seeing for problem with dialysis access. Patient dialyzes at [facility] on M, W and F. Patient notes the last 2-3 treatments her fistula has been infiltrated. Patient continues to have her chestcatheters. Patient has been using her chest catheters the last week due to bleeding around the needles and her pressures being too high. Patient has never had a fistulogram on this current fistula. Patient is maintained on Plavix due to a history of cardiac stents. ROS General General: Yes weight change and appetite; No fatigue, colon cancer, breast cancer or weakness HEENT HEENT: Yes eye surgery; No difficulty swallowing, eye injury, swollen glands or hoarseness Endo Endocrine: Yes thyroid disease; No diabetes mellitus, thyroid cancer, Hair loss, heat intolerance or cold intolerance Skin Skin: No rash or changing moles Musc Musculoskeletal: Yes back problems, arthritis and rheumatoid arthritis; No gout or joint pain Cardio Cardiovascular: Yes murmur, heart disease, high blood pressure, heart attack andheart stent; No pacemaker, atrial fibrillation, palpitations, shortness of breat with exertion or chest pain Psych Psychiatric: No depression, anxiety or hearing voices Resp Respiratory: Yes shortness of breath, No sleep apnea, No cough, No COPD, Yes asthma, No emphysema and No wheezing Gastro Gastrointestinal: No abdominal pain, Yes nausea or vomiting, No diarrhea, No constipation, No blood in stool, Yes acid reflux, No hemorrhoids, No ulcers, No gallbladder problem and No black,tarry stools Arnoldo Hematologic: Yes blood thinners, No blood disorders, No bleeding, Yes anemia andNo blood clots Neuro Neurologic: No system reviewed and no additional complaints, except as documented, No as per HPI, No abnormal gait, No abnormal hearing, No abnormal movements, No abnormal speech, No behavioral changes, No burning sensations, No confusion, No convulsions, No disequilibrium, No dizziness, No localized weakness, No frequent falls, No headache(s), No lack of coordination, No loss ofvision, No memory loss, No numbness, No other visual disturbances, No radicular pain, No restless legs, No sensory deficit, No syncope, No tingling, No tremor(s), No weakness and No other Exam Const General: cooperative, healthy appearing, comfortable and no acute distress [facility] Head: normal to inspection Eyes General: appearance normal, both eyes and all related structures Neck Neck: normal visual inspection Neck mass: No Chest Other: Left chest- tunneled dialysis catheter present Resp Effort & Inspection: normal respiratory effort Auscultation: clear to auscultation bilaterally Cardio Rate: regular rate Rhythm: regular rhythm GI Inspection: normal to inspection Palpation: soft Skin General: ecchymosis (right upper extremity hematoma from infiltration) Neuro General: no focal motor deficits and CN's II-XI intact bilaterally Extrem Other: Right upper extremity AV fistula- good pulse, diminished bruit and thrill. High-pitched whistling tone in the mid aspect of the humerus possible represent a higher stenosis in the clavicular region. Psych Appearance: grossly normal Affect: normal affect Assessment and Plan Assessment and Plan (1) Problem with dialysis access: ?Status:?Acute ?Plan: Dr. Cheatham will plan to perform a more urgent right upper extremity fistulogram. Procedure details, risks and benefits have been explained. Patient and her have had the opportunity to ask and have questions answered. Patient verbally understands and agrees with the plan. Patient is to hold her Plavix x 1day prior to the procedure. She will obtain blood work today. She will be scheduled for Wednesday. I have examined the patient and the H&P has been reviewed. There are no clinicalchanges since date of exam. Fausto Cheatham M.D., F.A.C.S. 11/09/22 0832 <Electronically signed by Fausto Cheatham MD> Cosigner Signature (if applicable): CC: Dr. Fausto Cheatham MD; Dr. Bell Maher MD~ Signed [facility] Work Phone: 1(163) 421-620403-20-2023 Procedure [facility] 06-01-2022 Miscellaneous Notes* Telephone Encounter - Angelita Lamas MD - 06/01/2022 10:51 AM EDT Patient's request for medication is as follows Requested Prescriptions Signed Prescriptions Disp Refills VITAMIN B-6 100 mg tablet 100 tablet 2 Sig: take 1 tablet by mouth once daily Authorizing Provider: ANGELITA LAMAS Order entered - please phone pharmacy and notify patient. Angelita Lamas MD * Telephone Encounter - Ritika Cosme LPN - 06/01/2022 10:34 AM EDT Patient has been identified by name and date of : Yes Requested Prescriptions Pending Prescriptions Disp Refills VITAMIN B-6 100 mg tablet [Pharmacy Med Name: RA VITAMIN B-6 100 MG TABLET] 100 tablet 2 Sig: take 1 tablet by mouth once daily RX INSTRUCTIONS: Patient aware RX will be sent to pharmacy. No need to notify patient. Ritika Cosme LPN [facility] ORIGINAL PROCEDURE: 1. REMOVAL OF A TUNNELED CENTRAL VENOUS CATHETER CLINICAL STATEMENT: infection Patient has an indwelling tunneled right internal jugular catheter that was inserted on 02/02/2022. There is no evidence of inflammation or infection at the skin entry site. After sterile preparation and draping, the cuff of the catheter was dissected free using gentle traction. It was removed as external pressure was applied at the insertion site at the lower neck. Excellent hemostasis was achieved. A sterile dry dressing was applied over the insertion site. The patient tolerated the procedure well. Tip of the catheter was placed in a specimen cup and sent to the lab for analysis. IMPRESSION: 1. Successful removal of a right internal jugular tunneled catheter. 2. Tip of catheter sent for culture. The procedure was performed by Magui Burger PA-C. I concur with the contents of the report Interpreted by: Robby Morton MD Preliminary Report By: Magui Burger PA-C Electronically signed By Robby Morton MD Dictated Date: 03/26/2022 11:37:45 AM Prelim Date: 03/26/2022 11:38:56 AM Sign Date: 03/28/2022 2:23:45 AM Ordering Provider: ISABELA Avilaman [id number] Note Discharge Instructions Thank you for allowing [facility] to assist you with your healthcare needs. The following is importantdischarge information regarding your hospital visit. Your Care Team BELL MAHER MD Your Diagnosis Severe sepsis Lactic acidosis CKD (chronic kidney disease), stage V CAD (coronary artery disease) Asthma Hypertension Anemia What to do next Instructions From Your Doctor Continue to hold diuretics until Wednesday Follow Up Appointments Follow Up with NOEL RAMOS BA, MD, Infectious Disease, Infectious Disease Group When Within 5 to 7 days, only if needed Where: [facility] [id number] [place] [address]- Follow Up with MELISSA CURRIE MD When Within 5 to 7 days Where: [address] [facility] [place] [address]- [phone] Follow Up with BELL MAHER MD When Within 1-2 days Why: Please call the office to schedule a follow up appointment Where: [address] [facility] [place] [address]- The Following Activity and Diet Have Been Ordered for You Discharge Activity - Ordered -- Resume your pre-hospitalization activity, 03/27/22 12:58:00 EDT Discharge Diet - Ordered -- No changes were made to your diet during your hospital stay. Please resume your pre hospitalization diet on discharge., 03/27/22 12:58:00 EDT The Following Equipment Has Been Ordered for You No qualifying data available. The Following Treatments Have Been Ordered for You Discharge Labs Discharge Outpatient Labwork - Ordered -- BMP, Creatinine, Results Notify to: MELISSA CURRIE MD, 03/30/2022, 03/27/22 12:58:00 EDT Discharge Radiology No qualifying data available. Other Therapies No qualifying data available. Post Acute Orders No qualifying data available. Someone Will Contact You Regarding These Home Health Referrals No home referrals have been ordered for you. No one will call you. Allergies Macrodantin (HIVES) Welchol (Unsure) Zaroxolyn (Unsure) colesevelam (Unknown) metOLazone (Unknown) nitrofurantoin (Unknown) pravastatin (liver) simvastatin (Liver) traMADol (GI upset) Medications Please ask your primary doctor or pharmacist before taking any other medication not listed, including over the counter drugs, herbal medications, vitamins and or supplements as they may interact withyour home medications. What How Much When Why Instructions Last Dose New cefdinir (cefdinir 300 mg oral capsule) 1 cap by mouth Once a day Duration: 5 Days Pickup at [facility] #61494 New doxycycline (doxycycline hyclate 100 mg oral capsule) 1 cap by mouth Two (2) times a day Duration: 5 Days Pickup at [facility] #[id number] Changed potassium chloride (Potassium Chloride (Eqv-K-Tab) 20 mEq oral tablet, extended release) 1 tab(s) by mouth Once a day Take with food Unchanged albuterol (albuterol 2.5 mg/ 3 mL (0.083%) inhalation solution) 3 Milliliter by inhalation Every 6 hours as needed for for wheezing Unchanged amLODIPine (amLODIPine 2.5 mg oral tablet) 1 tab(s) by mouth Once a day Unchanged aspirin (aspirin 81 mg oral delayed release tablet) 1 tab(s) by mouth Once a day Unchanged cholecalciferol (Vitamin D3) 5,000 International unit by mouth Once a day Unchanged clopidogrel (Plavix 75 mg oral tablet) 1 tab(s) by mouth Once a day Unchanged cyanocobalamin (cyanocobalamin 1000 mcg/ mL injectable solution) 1 Milliliter Intramuscular Once a month Unchanged hydrOXYzine (hydrOXYzine hydrochloride 25 mg oral tablet) 1 tab(s) by mouth Four (4) times a day Unchanged levETIRAcetam (levETIRAcetam 500 mg oral tablet) 1 tab(s) by mouth Two (2) times a day Unchanged levothyroxine (levothyroxine 50 mcg (0.05 mg) oral tablet) 1 tab(s) by mouth Once a day CKD (chronic kidney disease), stage IV Hypercholesterolemia Unchanged metoprolol (metoprolol succinate 25 mg oral TABLET extended release) 0.5 tab(s) by mouth Once a day Do not crush or chew (controlled release) Unchanged montelukast (Singulair 10 mg oral tablet) 1 tab(s) by mouth Once a day (in the evening) Unchanged nitroGLYcerin (Nitrostat 0.4 mg sublingual tablet) 1 tab(s) under the tongue Every 5 minutes as needed for as needed for chest pain Unchanged omeprazole (omeprazole 40 mg oral delayed release capsule) 1 cap by mouth Once a day Unchanged polyethylene glycol 3350 (MiraLax oral powder for reconstitution) 17 gram(s) by mouth Every day as needed for Constipation Unchanged ranolazine (Ranexa 500 mg oral tablet, extended release) 1 tab(s) by mouth Two (2) times a day Unchanged rosuvastatin (rosuvastatin 20 mg oral tablet) 1 tab(s) by mouth Once a day Unchanged temazepam (temazepam 30 mg oral capsule) 1 cap by mouth Daily at bedtime as needed for as needed for sleep Insomnia Duration: 30 Days Unchanged tiZANidine (tiZANidine 4 mg oral tablet) 1 tab(s) by mouth Every 8 hours Subcutaneous nodule Muscle spasm Pharmacy Information [id number]: [address], [place] [id number] [phone] What How Much When Why Comments Stop Taking furosemide (furosemide 40 mg oral tablet) 1 tab(s) by mouth Once a day CHF exacerbation Renal failure Stop Taking metOLazone (metOLazone 2.5 mg oral tablet) 1 tab(s) by mouth Every day CHF exacerbation Renal failure Take 1 hour before furosemide Please take this list to your next doctor s visit. Bring all medications you take, including over the counter medications, herbals and other supplements with you to your doctor s visit. Patients and families are reminded to discard old lists and to update any records with all medication providers or retail pharmacies. Education Materials Sepsis, Self Care, Adult Sepsis is a serious illness that may require intensive care in the hospital. The following information explains what you need to know in order to manage your condition after you are discharged from the hospital. What are the risks? After being treated for sepsis and discharged from the hospital, you may be at a higher risk for certain problems. These problems may be physical or mental. Physical problems: Weakness and tiredness. Shortness of breath. Pain in many areas of the body. Difficulty walking. Dry, itchy skin. Lack of appetite. This may lead to weight loss. Organ failure. Mental problems: Difficulty sleeping. Depression. Confusion. Anxiety and worry caused by having gone through a bad experience (post-traumatic stress disorder,PTSD). Low self-esteem. Follow these instructions at home: Medicines Take mbqh-ybm-bbkhosx and prescription medicines only as told by your health care provider. If you were prescribed an antibiotic, antiviral, or antifungal medicine, take it as told by your health care provider. Do not stop taking the medicine even if you start to feel better. Eating and drinking Eat a healthy diet that includes plenty of vegetables, fruits, whole grains, low-fat dairy products, and lean protein. Ask your health care provider if you should avoid certain foods. Drink enough fluid to keep your urine pale yellow. Alcohol use Do not drink alcohol if: ? Your health care provider tells you not to drink. ? You are , may be , or are planning to become . If you drink alcohol, limit how much you use to: ? 0 1 drink a day for women. ? 0 2 drinks a day for men. ? Be aware of how much alcohol is in your drink. In the [place] one drink equals one 12 oz bottle of beer (355 mL), one 5 oz glass of wine (148 mL), or one 1 oz glass of hard liquor (44 mL). Activity Rest and gradually return to your normal activities. Ask your health care provider what activities are safe for you. Avoid sitting for a long time without moving. Get up to take short walks every 1 2 hours. This is important to improve blood flow and breathing. Ask for help if you feel weak or unsteady. Try to set small, achievable goals each week, such as dressing yourself, bathing, or walking up thestairs. It may take a while to rebuild your strength. Try to exercise regularly if you feel healthy enough to do so. Ask your health care provider what exercises are safe for you. Preventing infection Keep your vaccinations up to date. Get the flu shot every year. Wash your hands often using soap and water. Use hand data support analyst if soap and water are not available. Practice good hygiene. Keep cuts clean and covered until healed. Managing stress Talk with your health care provider or counselor about ways to reduce stress. He or she may suggest: Meditation, muscle relaxation, and breathing exercises. Talk therapy. Spending time on hobbies and activities that you enjoy. General instructions Get the right amount and quality of sleep. Most adults need 7 9 hours of sleep each night. To help with sleep: ? Keep your bedroom cool and dark. ? Do not eat a heavy meal within one hour of bedtime. ? Do not drink alcohol or caffeinated drinks before bed. ? Avoid screen time, such as television, computers, tablets, or cell phones before bed. Do not use any products that contain nicotine or tobacco, such as cigarettes, e- cigarettes, and chewing tobacco. If you need help quitting, ask your health care provider. Talk to trusted family members and friends about your condition. Explain your symptoms to them, andlet them know that you are working with a health care provider to treat your condition. This can provide you with one way to get support and guidance. Keep all follow-up visits as told by your health care provider. This is important. Questions to ask your health care provider: What physical and emotional changes do I need to report? Do I need to have someone with me all the time? Is it safe for me to drive? Contact a health care provider if you: Do not feel like you are getting better or regaining strength. Have muscle or joint pain. Frequently feel tired. Are having trouble coping with your recovery. Have nightmares, or trouble falling asleep or staying asleep. Feel sad, down, or depressed more often than not, every day for more than 2 weeks. Have difficulty concentrating. Feel irritable or you cry for no reason. Get help right away if you: Have difficulty breathing. Have a rapid or skipping heartbeat. Become confused or disoriented. See, hear, or feel things that do not exist (hallucinations). Have a high fever. Have an infection that is getting worse or not getting better. You have thoughts of hurting yourself or others. If you ever feel like you may hurt yourself or others, or have thoughts about taking your own life,get help right away. You can go to your nearest emergency department or call: Your local emergency services (911 in the [place] A suicide crisis helpline, such as the National Suicide Prevention Lifeline at . Thisis open 24 hours a day. Summary Sepsis is a serious illness that may require intensive care in a hospital. You may experience long-term health effects after you are discharged from the hospital. Try to set small, achievable goals each week, such as dressing yourself, bathing, or walking up thestairs. It may take a while to rebuild your strength. Keep all follow-up visits as told by your health care provider. This is important. Know what symptoms you should get help right away for. This information is not intended to replace advice given to you by your health care provider. Make sure you discuss any questions you have with your health care provider. Document Released: 03/17/2019 Document Revised: 03/17/2019 Document Reviewed: 03/17/2019 [employer] Patient Education 2020 [employer] Additional Information VACCINATE! IT SAVES LIVES! Members of the community who have not yet received the COVID-19 vaccine and would like to receive it can visit one of [facility] vaccine clinics. There are many vaccine clinic locations within the [facility]. For locations and available times, please visit https://[email or web address].[place].gov/. It is important to note that some COVID mobile vaccine clinics are held outdoors and may be canceled in rainy or stormy conditions. To learn more about pediatric vaccinations (ages 5-11), we invite you to visit the [facility] webpage. https://www.[facility].org/pages/0609-Ofivc-Jrzqbevhegw-Ltdythxtwh-Cyucd-Thj stions.htmlTo learn more about the COVID-19 vaccine, we invite you to visit the [facility] website for a list of frequently asked questions. [email or web address] [email or web address]/assets/Cqmwuxwl-qsp-Dllrufib/jsqer-Ezzxxwa-Adbztmwbto _Asked-Questions.pdf [facility] Patient Portal Access Instructions: Stay connected with your healthcare team and access your personal medical information anytime with the [facility] Patient Portal.If you would like a full copy of your medical records, please contact the [facility] Medical Records Department, Wednesday through Wednesday between 8a.m. and 4:30p.m. Please follow the directions below to access the portal: 1.Access the email account you provided upon registration to the [facility].2.Look for an invitation email from [facility].3.Open the email and access the invitation link: Accept Invitation to [facility]4.Fill in the required carroll to create your account. Sign into www.[employer]) with your username and password that you created in the above steps to stay up to date. You can then view a summary of results, a summary of your visits, and the ability to download your summaries to your computer or send the information securely to a physician. Remember that your healthcare information is confidential, so carefully consider who you will allow to register on the [facility] Patient Portal for access to your information. You can also access the [facility] Patient Portal on the [employer]. Simply click on Health Records under [employer] and then click on the [employer] logo. HOW TO SAFELY DISPOSE OF PRESCRIPTION MEDICATIONS Please use one of the following methods to safely dispose of your unused medications. 1.Use a drug disposal kit: the drug disposal pouch allows you to safely discard your old and unuseddrugs. Ask your nurse to give you one when you are discharged.2.Visit a local take-back location: Many local pharmacies and police departments have programs that collect old and unwanted prescriptiondrugs. Call your local pharmacy or go to http://[employer].Endra/2V6Sc8d to find one close to you.3.Make use of household items: Use cat litter or old coffee grounds to dispose medications if other options arenot available. Mix your drugs with these household products, seal them in an airtight container andthrow it into the garbage. Call [facility]: [phone] to be sure your drugs can be disposed of in this way. Some medicines may require a different approach.4.Never flush your medications down the toilet. IF YOU HAVE BEEN PRESCRIBED AN OPIOID FOR PAIN If you have been prescribed an opioid (such as hydrocodone, oxycodone or morphine), it is critical to understand the possible side effects and risks of opioid pain medications. Even when taken as directed, opioids can have several side effects including: Tolerance, meaning you might need to take more of a medication for the same pain relief. Nausea, vomiting and/or constipation. Sleepiness, dizziness, dry mouth, confusion, depression or itching. Physical dependence, meaning you have withdrawal symptoms when a medication is stopped, can develop within a few days. KNOW YOUR RESPONSIBILITIES It is important to know exactly how much and how often to take the opioid pain medications you are prescribed. Never take opioids in higher amounts or more often than prescribed. Do not combine opioids with alcohol or other drugs that cause drowsiness, such as benzodiazepines, also known as benzos, including diazepam and alprazolam, muscle relaxants or sleep aids. Never sell or share prescription opioids. This is illegal. Store opioids in a secure place and out of reach of others (including children, family, friends and visitors). The last page of this document has been signed and retained as a CHART COPY. Signatures Patient Education Materials Sepsis, Self Care, Adult Medication Leaflets My discharge plan and instructions have been reviewed and explained to me and I,MARCOS SHELTON understand my current condition and have read and understand these discharge instructions. I have received a written copy of the plan/instructions. If I have questions, I am aware that I should contactmy doctor. Patient/Stevedoring Supervisor Signature: Date/Time: Relationship to Patient: Witness Name/Signature: Date/Time: [id number] Discharge summary Date of Service 03/27/2022 Discharge Diagnosis 1. Severe sepsis (R65.20 - ICD-10-CM) 2. Lactic acidosis (E87.2 - ICD-10-CM) 3. CKD (chronic kidney disease), stage V (N18.5 - ICD-10-CM) 4. CAD (coronary artery disease) (I25.10 - ICD-10-CM) 5. Asthma (J45.909 - ICD-10-CM) 6. Hypertension (I10 - ICD-10-CM) 7. Anemia (D64.9 - ICD-10-CM) Additional Orders: Ordered: Discharge,03/27/22 12:58:00 EDT, Discharged to: Home Ordered: Discharge Activity,Resume your pre-hospitalization activity, 03/27/22 12:58:00 EDT Ordered: Discharge Diet,No changes were made to your diet during your hospital stay. Please resume your pre hospitalization diet on discharge., 03/27/22 12:58:00 EDT Ordered: Discharge Outpatient Labwork,BMP, Creatinine, Results Notify to: MELISSA CURRIE MD, 03/30/2022, 03/27/22 12:58:00 EDT Ordered: cefdinir 300 mg oral capsule,Dose : 300 mg = 1 cap(s), Oral, qDay, X 5 day(s), # 5 cap(s),0 Refill(s), 04/01/22 12:55:00 EDT, Pharmacy: [facility] #[id number], 162.6, cm, 03/24/22 23:29:00 EDT, Height, 81.8 Ordered: doxycycline hyclate 100 mg oral capsule,Dose : 100 mg = 1 cap(s), Oral, BID, X 5 day(s), #10 cap(s), 0 Refill(s), 04/01/22 12:55:00 EDT, Pharmacy: [facility] #[id number], 162.6, cm, 03/24/22 23:29:00 EDT, Height, 81.8 Hospital Course This is a split/shared visit with Dr. Suarez. Patient is a 71-year-old female with a past medical history significant for coronary artery disease status post stents, hypertension, hyperlipidemia, peripheral vascular disease status post iliac artery stents-follows with vascular, seizure disorder, hypothyroidism, chronic anemia, CKD stage IV, status post AV fistula placed in October 2021, ZACH, frequent falls, degenerative joint disease . Patient originally presented to [facility] on Wednesday with complaints of nausea, vomiting, fever, chills and general malaise. Patient was transferred from [facility] on March 24, 2020 with a concern for sepsis-like features and PICC line infection.Patient was recently discharged February 02, 2022. Patient was admitted to [facility] for hypovolemicshock, acute open wound to the AV fistula. The patient's left upper extremity wound was cultured, wound growing Klebsiella and staph aureus. US of LUE showed 2 separate areas compatible with hematoma. No evidence of pseudoaneurysm. Patient found to have a recurrent bleed from wound at AV fistula site, patient is s/p exploration of the left arm hematoma with ligation of left brachiobasilic AV fistula and repair of left brachial artery by vascular 01/29/22.Patient was discharged with a 4-week course of cefepime to treat left upper extremity wound/infection. Patient was seen by nephrology and ID this admission. Left-sided PICC line removed and sent for culture. Improvement noted in kidney function and blood cultures and catheter culture remain no growth to date with improvement in overall symptoms. ID recommended transition to doxycycline 100 mg p.o. twice daily and cefdinir 300 mg p.o. every 24 hours for an additional 5 days. Patient stable and agreeable with plan. Prescriptions sent. Allergies Macrodantin (HIVES) Welchol (Unsure) Zaroxolyn (Unsure) colesevelam (Unknown) metOLazone (Unknown) nitrofurantoin (Unknown) pravastatin (liver) simvastatin (Liver) traMADol (GI upset) Consults Consult to Physician - Ordered -- 03/24/22 22:53:00 EDT, MELISSA CURRIE MD, Routine, CKD stage V vs ESRD Consult to Physician - Ordered -- 03/24/22 22:53:00 EDT, NOEL RAMOS BA, MD, Routine, Sepsis likely due to PICC line infection. Imaging Results and Diagnostics IR Tunneled PICC Removal Result Date: March 25, 2022 Verified By: CLINICAL STATEMENT: IMPRESSION: XR Chest 1 View Result Date: March 24, 2022 Verified By: JOHN RUBALCAVA MD CLINICAL STATEMENT: IMPRESSION: Linear opacities at the left lung base suggest atelectasis or other airspacedisease. Right midlung linear atelectasis. Objective Vitals and Measurements T: 36.8 C (Oral) TMIN: 36.7 C (Oral) TMAX: 36.9 C (Oral) HR: 76 RR: 18 BP: 129/63 SpO2: 100% Weight Dosing Weight: 81.8 kg (03/24/22) General: Alert and oriented x 3, NAD Head: Normocephalic, mmm, sclera nonicteric Cardiovascular: Normal rate and rhythm, no murmur, - edema Respiratory: Lungs clear to auscultation bilaterally, easy Abdomen: soft and non-distended, bowel sounds active all 4 quadrants Neurological: Moving all 4 extremities, speech clear Psychological: normal affect, cooperative, good eye contact Code Status Code Status - Ordered -- 03/24/22 22:45:00 EDT, Full Code, Constant Order Admission Date 03/24/2022 Discharge Date 03/27/2022 Patient Instructions Continue to hold diuretics until Wednesday Medications New Prescription cefdinir (cefdinir 300 mg oral capsule)1 cap by mouth once a day for 5 Days. Refills: 0. doxycycline (doxycycline hyclate 100 mg oral capsule)1 cap by mouth two (2) times a day for 5 Days.Refills: 0. Changed potassium chloride (Potassium Chloride (Eqv-K-Tab) 20 mEq oral tablet, extended release)1 tab(s) bymouth once a day. Take with food. Unchanged albuterol (albuterol 2.5 mg/3 mL (0.083%) inhalation solution)3 Milliliter by inhalation every 6 hours as needed for wheezing. amLODIPine (amLODIPine 2.5 mg oral tablet)1 tab(s) by mouth once a day. Refills: 3. aspirin (aspirin 81 mg oral delayed release tablet)1 tab(s) by mouth once a day. Refills: 3. cholecalciferol (Vitamin D3)5,000 International unit by mouth once a day. clopidogrel (Plavix 75 mg oral tablet)1 tab(s) by mouth once a day. Refills: 3. cyanocobalamin (cyanocobalamin 1000 mcg/mL injectable solution)1 Milliliter Intramuscular once a month. Refills: 0. hydrOXYzine (hydrOXYzine hydrochloride 25 mg oral tablet)1 tab(s) by mouth four (4) times a day. Refills: 3. levETIRAcetam (levETIRAcetam 500 mg oral tablet)1 tab(s) by mouth two (2) times a day. levothyroxine (levothyroxine 50 mcg (0.05 mg) oral tablet)1 tab(s) by mouth once a day. Refills: 0. metoprolol (metoprolol succinate 25 mg oral TABLET extended release)0.5 tab(s) by mouth once a day.Do not crush or chew (controlled release). Refills: 3. montelukast (Singulair 10 mg oral tablet)1 tab(s) by mouth once a day (in the evening). Refills: 3. nitroGLYcerin (Nitrostat 0.4 mg sublingual tablet)1 tab(s) under the tongue every 5 minutes as needed as needed for chest pain. Refills: 2. omeprazole (omeprazole 40 mg oral delayed release capsule)1 cap by mouth once a day. Refills: 0. polyethylene glycol 3350 (MiraLax oral powder for reconstitution)17 gram(s) by mouth every day as needed Constipation. ranolazine (Ranexa 500 mg oral tablet, extended release)1 tab(s) by mouth two (2) times a day. Refills: 3. rosuvastatin (rosuvastatin 20 mg oral tablet)1 tab(s) by mouth once a day. Refills: 3. temazepam (temazepam 30 mg oral capsule)1 cap by mouth daily at bedtime as needed as needed for sleep for 30 Days. Refills: 2. tiZANidine (tiZANidine 4 mg oral tablet)1 tab(s) by mouth every 8 hours. Refills: 0. Discontinued furosemide (furosemide 40 mg oral tablet)1 tab(s) by mouth once a day. Refills: 2. metOLazone (metOLazone 2.5 mg oral tablet)1 tab(s) by mouth every day. Take 1 hour before furosemide. Refills: 2. Follow Up Follow Up with NOEL RAMOS BA, MD, Infectious Disease, Infectious Disease Group When Within 5 to 7 days, only if needed Where: [facility] [id number] [place] [address]- Follow Up with MELISSA CURRIE MD When Within 5 to 7 days Where: [id number] [facility] [place] [phone] Follow Up with BELL MAHER MD When Within 1-2 days Why: Please call the office to schedule a follow up appointment Where: [address] [facility] [place] [address]- Follow Up Appointments No qualifying data available. Follow Up Labs/Studies Discharge Labs Discharge Outpatient Labwork - Ordered -- BMP, Creatinine, Results Notify to: MELISSA CURRIE MD, 03/30/2022, 03/27/22 12:58:00 EDT Discharge Studies No Follow-up Studies Discharge Diet Discharge Diet - Ordered -- No changes were made to your diet during your hospital stay. Please resume your pre hospitalization diet on discharge., 03/27/22 12:58:00 EDT Discharge Activity Discharge Activity - Ordered -- Resume your pre-hospitalization activity, 03/27/22 12:58:00 EDT Condition on Discharge Stable Readmission Risk/Palliative Score LACE Score: 11 (03/25/22 12:52:00) Palliative Total Score: 2 (03/25/22 12:54:00) Discharge Disposition Home Time Spent Total visit time = 31 minutes; > 50% spent counseling/coordinating care Digitally Signed by MICHAEL TORRES on 03/27/2022 01:06 PM [id number] Infectious disease Progress note Date of Service 03/27/2022 Objective Vitals and Measurements T: 36.8 C (Oral) TMIN: 36.7 C (Oral) TMAX: 36.9 C (Oral) HR: 74(Monitored) RR: 16 BP: 134/67 SpO2: 100% Physical Exam Chart reviewed, patient examined. Patient is alert and oriented x4, resting in bed watching TV. No c/o NVD. No new complaints this AM, reports feeling improved overall. Respirations easy and nonlabored, 100% on RA. Patient has remained afebrile for the last 24 hours. 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 EXTREMITIES: LUE prior AV fistula, BLE chronic skin changes, +1 BLE/ankle edema LINES/TUBES/DRAINS: RFA IV dressing dry & intact, no drainage or erythema at site CURRENT ANTIBIOTICS: Meropenem 500mg IV Q12h 82 - 03/25 Cefepime 1g IV Q24h 03/25 - present Vanco Dosing IV Q24h 03/24 - present CULTURE RESULTS/PRISCILLA: 03/24 Urine Culture -F No growth at 48 hours 03/24 Blood Cultures 2/2 no growth to date -P 03/25 Culture Catheter Tip (PICC) -F No growth at 48 hours Weight Dosing Weight: 81.8 kg (03/24/22) Medications Medications (19) Active Scheduled: (14) aspirin 81 mg Chewable 81 mg 1 tab(s), Oral, Daily cefepime 1 gram(s), IV Piggyback, q24h cholecalciferol 125 mcg capsule (Vit D3 5000 unit(s)) 1 tab(s), Oral, qDay clopidogrel 75 mg Tablet 75 mg 1 tab(s), Oral, qDay epoetin javier epbx 10,000 units/mL (pf) vial - NEPH 10,000 unit(s) 1 mL, Subcutaneous, q7day heparin 5,000 units/mL (1 mL) vial 5,000 unit(s) 1 mL, Subcutaneous, q8h levETIRAcetam 500 mg tablet 500 mg 1 tab(s), Oral, BID levothyroxine 50 mcg tablet 50 mcg 1 tab(s), Oral, qDayAC Misc communication order need current weight for vanco, Miscellaneous, qDay montelukast 10 mg Tablet 10 mg 1 tab(s), Oral, qPM pantoprazole 40 mg EC tablet 40 mg 1 tab(s), Oral, qDayAC ranolazine 500 mg ER Tablet 500 mg 1 tab(s), Oral, BID rosuvastatin 20 mg tablet 20 mg 1 tab(s), Oral, qHS VANCOMYCIN -- pharmacy re-dosing by random level 1 EA, Miscellaneous, Daily Continuous: (0) PRN: (5) acetaminophen 325 mg Tablet 650 mg 2 tab(s), Oral, q6hr acetaminophen 325 mg Tablet 650 mg 2 tab(s), Oral, q6h albuterol 0.083% Soln UD (2.5mg/3 mL) 2.5 mg 3 mL, Inhalation, q6hRT melatonin 3 mg tablet 3 mg 1 tab(s), Oral, qHS polyethylene glycol 3350 - UD packet 17 gram(s) 15 mL, Oral, Daily Lab Results 03/27 05:41 Glucose Level: 97 Sodium Level: 135 L Potassium Level: 3.6 BUN: 32.0 H Creatinine Lvl (s): 2.55 H 03/26 06:52 WBC: 5.8 Hgb: 8.2 L Hct: 23.8 L Platelet: 155 Neutrophil %: 53.2 Glucose Level: 86 Sodium Level: 139 Potassium Level: 3.4 L BUN: 37.0 H Creatinine Lvl (s): 2.94 H Imaging Results and Diagnostics No new results at this time Problem List 1. Severe sepsis 2. Lactic acidosis 3. CKD (chronic kidney disease), stage V 4. CAD (coronary artery disease) 5. Asthma 6. Hypertension 7. Anemia Digitally Signed by Gi Echevarria RN on 03/27/2022 11:15 AM [id number] Infect[facility] disease Progress note Date of Service 03/27/2022 Objective Vitals and Measurements T: 36.8 C (Oral) TMIN: 36.7 C (Oral) TMAX: 36.9 C (Oral) HR: 74(Monitored) RR: 16 BP: 134/67 SpO2: 100% Physical Exam Chart reviewed, patient examined. Patient is alert and oriented x4, resting in bed watching TV. No c/o NVD. No new complaints this AM, reports feeling improved overall. Respirations easy and nonlabored, 100% on RA. Patient has remained afebrile for the last 24 hours. FOCUSED ASSESSMENT: CVS: Regular S1S2, NSR on monitor LUNGS: Clear diminished bases bilaterally, denies SOB ABDOMEN: Nondistended, rounded, soft, nontender, + bowel sounds, passing gas, denies constipation SKIN: No rashes noted, generalized bruising, BLE chronic skin changes TAMIKO INCISIONS/DRESSINGS: None EXTREMITIES: LUE prior AV fistula, BLE chronic skin changes, +1 BLE/ankle edema LINES/TUBES/DRAINS: RFA IV dressing dry & intact, no drainage or erythema at site CURRENT ANTIBIOTICS: Meropenem 500mg IV Q12h 03/24 - 03/25 Cefepime 1g IV Q24h 03/25 - present Vanco Dosing IV Q24h 03/24 - present CULTURE RESULTS/PRISCILLA: 03/24 Urine Culture -F No growth at 48 hours 03/24 Blood Cultures 2/ no growth to date -P 03/25 Culture Catheter Tip (PICC) -F No growth at 48 hours Weight Dosing Weight: 81.8 kg (08/02/22) Medications Medications (19) Active Scheduled: (14) aspirin 81 mg Chewable 81 mg 1 tab(s), Oral, Daily cefepime 1 gram(s), IV Piggyback, q24h cholecalciferol 125 mcg capsule (Vit D3 5000 unit(s)) 1 tab(s), Oral, qDay clopidogrel 75 mg Tablet 75 mg 1 tab(s), Oral, qDay epoetin javier epbx 10,000 units/mL (pf) vial - NEPH 10,000 unit(s) 1 mL, Subcutaneous, q7day heparin 5,000 units/mL (1 mL) vial 5,000 unit(s) 1 mL, Subcutaneous, q8h levETIRAcetam 500 mg tablet 500 mg 1 tab(s), Oral, BID levothyroxine 50 mcg tablet 50 mcg 1 tab(s), Oral, qDayAC Misc communication order need current weight for vanco, Miscellaneous, qDay montelukast 10 mg Tablet 10 mg 1 tab(s), Oral, qPM pantoprazole 40 mg EC tablet 40 mg 1 tab(s), Oral, qDayAC ranolazine 500 mg ER Tablet 500 mg 1 tab(s), Oral, BID rosuvastatin 20 mg tablet 20 mg 1 tab(s), Oral, qHS VANCOMYCIN -- pharmacy re-dosing by random level 1 EA, Miscellaneous, Daily Continuous: (0) PRN: (5) acetaminophen 325 mg Tablet 650 mg 2 tab(s), Oral, q6hr acetaminophen 325 mg Tablet 650 mg 2 tab(s), Oral, q6h albuterol 0.083% Soln UD (2.5mg/3 mL) 2.5 mg 3 mL, Inhalation, q6hRT melatonin 3 mg tablet 3 mg 1 tab(s), Oral, qHS polyethylene glycol 3350 - UD packet 17 gram(s) 15 mL, Oral, Daily Lab Results 03/27 05:41 Glucose Level: 97 Sodium Level: 135 L Potassium Level: 3.6 BUN: 32.0 H Creatinine Lvl (s): 2.55 H 03/26 06:52 WBC: 5.8 Hgb: 8.2 L Hct: 23.8 L Platelet: 155 Neutrophil %: 53.2 Glucose Level: 86 Sodium Level: 139 Potassium Level: 3.4 L BUN: 37.0 H Creatinine Lvl (s): 2.94 H Imaging Results and Diagnostics No new results at this time Problem List 1. Severe sepsis 2. Lactic acidosis 3. CKD (chronic kidney disease), stage V 4. CAD (coronary artery disease) 5. Asthma 6. Hypertension 7. Anemia Digitally Signed by Gi Echevarria RN on 03/27/2022 11:15 AM [id number] Neph[facility] Progress note Date of Service 03/27/2022 Objective Vitals and Measurements T: 36.7 C (Oral) TMIN: 36.7 C (Oral) TMAX: 36.9 C (Oral) HR: 84(Monitored) RR: 18 BP: 129/66 SpO2: 97% Intake and Output 7AM Yesterday to 7AM Today Intake and Output (Last 24 hours) Intake Oral Intake 260.00 Output Stool Count 0.00 Urine Count 3.00 Total Summary Total Intake 260.00 Total Output 0.00 Fluid Balance 260.00 Physical Exam Weight Dosing Weight: 81.8 kg (03/24/22) General: resting HEENT: No pallor/icterus Chest: Chest equal in expansion, and clear to auscultation bilaterally. Heart: s1s2 heard. regular. No murmur/rub appreciated. Abdomen: Soft. Nondistended. Nontender. Bowel sounds heard. Extremities: No cyanosis. No significant edema noted in bilateral extremities. [1] Medications Medications (19) Active Scheduled: (14) aspirin 81 mg Chewable 81 mg 1 tab(s), Oral, Daily cefepime 1 gram(s), IV Piggyback, q24h cholecalciferol 125 mcg capsule (Vit D3 5000 unit(s)) 1 tab(s), Oral, qDay clopidogrel 75 mg Tablet 75 mg 1 tab(s), Oral, qDay epoetin javier epbx 10,000 units/mL (pf) vial - NEPH 10,000 unit(s) 1 mL, Subcutaneous, q7day heparin 5,000 units/mL (1 mL) vial 5,000 unit(s) 1 mL, Subcutaneous, q8h levETIRAcetam 500 mg tablet 500 mg 1 tab(s), Oral, BID levothyroxine 50 mcg tablet 50 mcg 1 tab(s), Oral, qDayAC Misc communication order need current weight for vanco, Miscellaneous, qDay montelukast 10 mg Tablet 10 mg 1 tab(s), Oral, qPM pantoprazole 40 mg EC tablet 40 mg 1 tab(s), Oral, qDayAC ranolazine 500 mg ER Tablet 500 mg 1 tab(s), Oral, BID rosuvastatin 20 mg tablet 20 mg 1 tab(s), Oral, qHS VANCOMYCIN -- pharmacy re-dosing by random level 1 EA, Miscellaneous, Daily Continuous: (0) PRN: (5) acetaminophen 325 mg Tablet 650 mg 2 tab(s), Oral, q6hr acetaminophen 325 mg Tablet 650 mg 2 tab(s), Oral, q6h albuterol 0.083% Soln UD (2.5mg/3 mL) 2.5 mg 3 mL, Inhalation, q6hRT melatonin 3 mg tablet 3 mg 1 tab(s), Oral, qHS polyethylene glycol 3350 - UD packet 17 gram(s) 15 mL, Oral, Daily Lab Results 03/27 05:41 Glucose Level: 97 Sodium Level: 135 L Potassium Level: 3.6 BUN: 32.0 H Creatinine Lvl (s): 2.55 H 03/26 06:52 WBC: 5.8 Hgb: 8.2 L Hct: 23.8 L Platelet: 155 Neutrophil %: 53.2 Glucose Level: 86 Sodium Level: 139 Potassium Level: 3.4 L BUN: 37.0 H Creatinine Lvl (s): 2.94 H EKG EKG - Completed -- 03/24/22 22:53:00 EDT Assessment/Plan 1. Severe sepsis 2. Lactic acidosis 3. CKD (chronic kidney disease), stage V 4. CAD (coronary artery disease) 5. Asthma 6. Hypertension 7. Anemia Time Spent 1. Acute kidney injury with CKD 5 2. Hyponatremia 3. Hypokalemia Renal function has improved Potassium has improved with supplementation Will monitor sodium trends Intake and output not accurate We should avoid nephrotoxins including NSAIDs, RAAS agents, aminoglycosides, and contrast unless emergently needed. We should keep MAP greater than 65 and avoid hemodynamic changes if possible. This document was transcribed via voice recognition software and may contain typographical errors. [1] Progress Note; PITER MADISON MD 03/26/2022 07:57 EDT Digitally Signed by CANDY ARRINGTON DO on 03/27/2022 08:26 AM [id number] Note Date of Service 03/26/2022 Chief Complaint infection Subjective This is a split/shared visit with Dr. Suarez. No new complaints. and great grandson at bedside, eager for discharge. Vitals and labs reviewed. Objective Vitals and Measurements T: 36.8 C (Oral) TMIN: 36.7 C (Oral) TMAX: 37.1 C (Oral) HR: 83(Monitored) RR: 18 BP: 135/67 SpO2: 97% Intake and Output 7AM Yesterday to 7AM Today Intake and Output (Last 24 hours) Intake Oral Intake 400.00 Output Stool Count 0.00 Urine Count 3.00 Total Summary Total Intake 400.00 Total Output 0.00 Fluid Balance 400.00 Physical Exam General: Alert and oriented x 3, NAD Head: Normocephalic, mmm, sclera nonicteric Cardiovascular: Normal rate and rhythm, no murmur, - edema Respiratory: Lungs clear to auscultation bilaterally, easy Abdomen: soft and non-distended, bowel sounds active all 4 quadrants Neurological: Moving all 4 extremities, speech clear Psychological: normal affect, cooperative, good eye contact Weight Dosing Weight: 81.8 kg (03/24/22) Medications Medications (19) Active Scheduled: (14) aspirin 81 mg Chewable 81 mg 1 tab(s), Oral, Daily cefepime 1 gram(s), IV Piggyback, q24h cholecalciferol 125 mcg capsule (Vit D3 5000 unit(s)) 1 tab(s), Oral, qDay clopidogrel 75 mg Tablet 75 mg 1 tab(s), Oral, qDay epoetin javier epbx 10,000 units/mL (pf) vial - NEPH 10,000 unit(s) 1 mL, Subcutaneous, q7day heparin 5,000 units/mL (1 mL) vial 5,000 unit(s) 1 mL, Subcutaneous, q8h levETIRAcetam 500 mg tablet 500 mg 1 tab(s), Oral, BID levothyroxine 50 mcg tablet 50 mcg 1 tab(s), Oral, qDayAC Misc communication order need current weight for vanco, Miscellaneous, qDay montelukast 10 mg Tablet 10 mg 1 tab(s), Oral, qPM pantoprazole 40 mg EC tablet 40 mg 1 tab(s), Oral, qDayAC ranolazine 500 mg ER Tablet 500 mg 1 tab(s), Oral, BID rosuvastatin 20 mg tablet 20 mg 1 tab(s), Oral, qHS VANCOMYCIN -- pharmacy re-dosing by random level 1 EA, Miscellaneous, Daily Continuous: (0) PRN: (5) acetaminophen 325 mg Tablet 650 mg 2 tab(s), Oral, q6hr acetaminophen 325 mg Tablet 650 mg 2 tab(s), Oral, q6h albuterol 0.083% Soln UD (2.5mg/3 mL) 2.5 mg 3 mL, Inhalation, q6hRT melatonin 3 mg tablet 3 mg 1 tab(s), Oral, qHS polyethylene glycol 3350 - UD packet 17 gram(s) 15 mL, Oral, Daily Lab Results 03/26 06:52 WBC: 5.8 Hgb: 8.2 L Hct: 23.8 L Platelet: 155 Neutrophil %: 53.2 Glucose Level: 86 Sodium Level: 139 Potassium Level: 3.4 L BUN: 37.0 H Creatinine Lvl (s): 2.94 H 03/25 02:43 WBC: 4.9 Hgb: 7.3 L Hct: 21.3 L Platelet: 135 L Neutrophil %: 64.6 Glucose Level: 100 Sodium Level: 142 Potassium Level: 3.3 L BUN: 35.0 H Creatinine Lvl (s): 3.03 H EKG No qualifying data available. Assessment/Plan 1. Severe sepsis 2. Lactic acidosis 3. CKD (chronic kidney disease), stage V 4. CAD (coronary artery disease) 5. Asthma 6. Hypertension 7. Anemia Sepsis-possible PICC line infection. PICC removed yesterday by IR and sent for culture. NGTD. ID following, appreciate input. Continue current antibiotics. Pt afebrile and no leukocytosis. Lactic acidosis resolved Anemia-stable, given EPO today. No evidence of active bleeding, continue to monitor CKD stage V, ANDRIY- improving, nephrology following, appreciate input. K3.4, replaced, continue to monitor Elevated troponin-trending downward, no chest pain, no evidence of ischemic changes All other chronic conditions stable, continue current medications Disposition: Probable discharge home in the next 24-48 hours pending final antibiotic plan for ID Total visit time = 27 minutes; > 50% spent counseling/coordinating care Digitally Signed by MICHAEL TORRES on 03/26/2022 02:05 PM [id number] Infectious disease Progress note Date of Service 03/26/2022 Objective Vitals and Measurements T: 36.8 C (Oral) TMIN: 36.7 C (Oral) TMAX: 37.1 C (Oral) HR: 83(Monitored) RR: 18 BP: 135/67 SpO2: 97% Physical Exam Chart reviewed, patient examined. Patient is alert and oriented x4, resting in bed eating breakfast. No c/o NVD. No new complaints this AM, reports feeling improved overall and is hoping to dischargehome. Respirations easy and nonlabored, 97% on RA. Patient has remained afebrile for the last 24 hours. Random Vanco 15.2 FOCUSED ASSESSMENT: CVS: Regular S1S2, NSR on monitor LUNGS: Clear diminished bases bilaterally, denies SOB ABDOMEN: Nondistended, rounded, soft, nontender, + bowel sounds, passing gas, denies constipation SKIN: No rashes noted, generalized bruising, BLE chronic skin changes TAMIKO INCISIONS/DRESSINGS: None EXTREMITIES: LUE prior AV fistula, BLE chronic skin changes, +1 BLE edema LINES/TUBES/DRAINS: RFA IV dressing dry & intact, no drainage or erythema at site CURRENT ANTIBIOTICS: Meropenem 500mg IV Q12h 03/24 - 03/25 Cefepime 1g IV Q24h 03/25 - present Vanco Dosing IV Q24h 03/24 - present CULTURE RESULTS/PRISCILLA: 03/24 Urine Culture -P No growth to date 03/24 Blood Cultures 2/2 no growth to date -P 03/25 Culture Catheter Tip (PICC) -P No growth to date Weight Dosing Weight: 81.8 kg (03/24/22) Medications Medications (20) Active Scheduled: (15) aspirin 81 mg Chewable 81 mg 1 tab(s), Oral, Daily cefepime 1 gram(s), IV Piggyback, q24h cholecalciferol 125 mcg capsule (Vit D3 5000 unit(s)) 1 tab(s), Oral, qDay clopidogrel 75 mg Tablet 75 mg 1 tab(s), Oral, qDay epoetin javier epbx 10,000 units/mL (pf) vial - NEPH 10,000 unit(s) 1 mL, Subcutaneous, q7day heparin 5,000 units/mL (1 mL) vial 5,000 unit(s) 1 mL, Subcutaneous, q8h levETIRAcetam 500 mg tablet 500 mg 1 tab(s), Oral, BID levothyroxine 50 mcg tablet 50 mcg 1 tab(s), Oral, qDayAC Misc communication order need current weight for vanco, Miscellaneous, qDay montelukast 10 mg Tablet 10 mg 1 tab(s), Oral, qPM pantoprazole 40 mg EC tablet 40 mg 1 tab(s), Oral, qDayAC ranolazine 500 mg ER Tablet 500 mg 1 tab(s), Oral, BID rosuvastatin 20 mg tablet 20 mg 1 tab(s), Oral, qHS VANCOMYCIN -- pharmacy re-dosing by random level 1 EA, Miscellaneous, Daily vancomycin PMX 1,250 mg 250 mL, IV Piggyback, Once Continuous: (0) PRN: (5) acetaminophen 325 mg Tablet 650 mg 2 tab(s), Oral, q6hr acetaminophen 325 mg Tablet 650 mg 2 tab(s), Oral, q6h albuterol 0.083% Soln UD (2.5mg/3 mL) 2.5 mg 3 mL, Inhalation, q6hRT melatonin 3 mg tablet 3 mg 1 tab(s), Oral, qHS polyethylene glycol 3350 - UD packet 17 gram(s) 15 mL, Oral, Daily Lab Results 03/26 06:52 WBC: 5.8 Hgb: 8.2 L Hct: 23.8 L Platelet: 155 Neutrophil %: 53.2 Glucose Level: 86 Sodium Level: 139 Potassium Level: 3.4 L BUN: 37.0 H Creatinine Lvl (s): 2.94 H 08 02:43 WBC: 4.9 Hgb: 7.3 L Hct: 21.3 L Platelet: 135 L Neutrophil %: 64.6 Glucose Level: 100 Sodium Level: 142 Potassium Level: 3.3 L BUN: 35.0 H Creatinine Lvl (s): 3.03 H 03/24 23:36 WBC: 5.3 Hgb: 8.5 L Hct: 25.1 L Platelet: 153 Neutrophil %: 72.2 Glucose Level: 114 Sodium Level: 142 Potassium Level: 3.6 BUN: 37.0 H Creatinine Lvl (s): 3.19 H Imaging Results and Diagnostics XR Chest 1 View Result Date: March 24, 2022 Verified By: JOHN RUBALCAVA MD CLINICAL STATEMENT: IMPRESSION: Linear opacities at the left lung base suggest atelectasis or other airspacedisease. Right midlung linear atelectasis. Problem List 1. Severe sepsis 2. Lactic acidosis 3. CKD (chronic kidney disease), stage V 4. CAD (coronary artery disease) 5. Asthma 6. Hypertension 7. Anemia Digitally Signed by Gi Echevarria RN on 03/26/2022 11:00 AM [id number] Note Date of Service 03/26/2022 Chief Complaint infection Subjective This is a split/shared visit with Dr. Suarez. No new complaints. and great grandson at bedside, eager for discharge. Vitals and labs reviewed. Objective Vitals and Measurements T: 36.8 C (Oral) TMIN: 36.7 C (Oral) TMAX: 37.1 C (Oral) HR: 83(Monitored) RR: 18 BP: 135/67 SpO2: 97% Intake and Output 7AM Yesterday to 7AM Today Intake and Output (Last 24 hours) Intake Oral Intake 400.00 Output Stool Count 0.00 Urine Count 3.00 Total Summary Total Intake 400.00 Total Output 0.00 Fluid Balance 400.00 Physical Exam General: Alert and oriented x 3, NAD Head: Normocephalic, mmm, sclera nonicteric Cardiovascular: Normal rate and rhythm, no murmur, - edema Respiratory: Lungs clear to auscultation bilaterally, easy Abdomen: soft and non-distended, bowel sounds active all 4 quadrants Neurological: Moving all 4 extremities, speech clear Psychological: normal affect, cooperative, good eye contact Weight Dosing Weight: 81.8 kg (03/24/22) Medications Medications (19) Active Scheduled: (14) aspirin 81 mg Chewable 81 mg 1 tab(s), Oral, Daily cefepime 1 gram(s), IV Piggyback, q24h cholecalciferol 125 mcg capsule (Vit D3 5000 unit(s)) 1 tab(s), Oral, qDay clopidogrel 75 mg Tablet 75 mg 1 tab(s), Oral, qDay epoetin javier epbx 10,000 units/mL (pf) vial - NEPH 10,000 unit(s) 1 mL, Subcutaneous, q7day heparin 5,000 units/mL (1 mL) vial 5,000 unit(s) 1 mL, Subcutaneous, q8h levETIRAcetam 500 mg tablet 500 mg 1 tab(s), Oral, BID levothyroxine 50 mcg tablet 50 mcg 1 tab(s), Oral, qDayAC Misc communication order need current weight for vancjoe, Miscellaneous, qDay montelukast 10 mg Tablet 10 mg 1 tab(s), Oral, qPM pantoprazole 40 mg EC tablet 40 mg 1 tab(s), Oral, qDayAC ranolazine 500 mg ER Tablet 500 mg 1 tab(s), Oral, BID rosuvastatin 20 mg tablet 20 mg 1 tab(s), Oral, qHS VANCOMYCIN -- pharmacy re-dosing by random level 1 EA, Miscellaneous, Daily Continuous: (0) PRN: (5) acetaminophen 325 mg Tablet 650 mg 2 tab(s), Oral, q6hr acetaminophen 325 mg Tablet 650 mg 2 tab(s), Oral, q6h albuterol 0.083% Soln UD (2.5mg/3 mL) 2.5 mg 3 mL, Inhalation, q6hRT melatonin 3 mg tablet 3 mg 1 tab(s), Oral, qHS polyethylene glycol 3350 - UD packet 17 gram(s) 15 mL, Oral, Daily Lab Results 03/26 06:52 WBC: 5.8 Hgb: 8.2 L Hct: 23.8 L Platelet: 155 Neutrophil %: 53.2 Glucose Level: 86 Sodium Level: 139 Potassium Level: 3.4 L BUN: 37.0 H Creatinine Lvl (s): 2.94 H 03/25 02:43 WBC: 4.9 Hgb: 7.3 L Hct: 21.3 L Platelet: 135 L Neutrophil %: 64.6 Glucose Level: 100 Sodium Level: 142 Potassium Level: 3.3 L BUN: 35.0 H Creatinine Lvl (s): 3.03 H EKG No qualifying data available. Assessment/Plan 1. Severe sepsis 2. Lactic acidosis 3. CKD (chronic kidney disease), stage V 4. CAD (coronary artery disease) 5. Asthma 6. Hypertension 7. Anemia Sepsis-possible PICC line infection. PICC removed yesterday by IR and sent for culture. NGTD. ID following, appreciate input. Continue current antibiotics. Pt afebrile and no leukocytosis. Lactic acidosis resolved Anemia-stable, given EPO today. No evidence of active bleeding, continue to monitor CKD stage V, ANDRIY- improving, nephrology following, appreciate input. K3.4, replaced, continue to monitor Elevated troponin-trending downward, no chest pain, no evidence of ischemic changes All other chronic conditions stable, continue current medications Disposition: Probable discharge home in the next 24-48 hours pending final antibiotic plan for ID Total visit time = 27 minutes; > 50% spent counseling/coordinating care Digitally Signed by MICHAEL TORRES on 03/26/2022 02:05 PM [id number] Infectious disease Progress note Date of Service 03/26/2022 Objective Vitals and Measurements T: 36.8 C (Oral) TMIN: 36.7 C (Oral) TMAX: 37.1 C (Oral) HR: 83(Monitored) RR: 18 BP: 135/67 SpO2: 97% Physical Exam Chart reviewed, patient examined. Patient is alert and oriented x4, resting in bed eating breakfast. No c/o NVD. No new complaints this AM, reports feeling improved overall and is hoping to dischargehome. Respirations easy and nonlabored, 97% on RA. Patient has remained afebrile for the last 24 hours. Random Vanco 15.2 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 EXTREMITIES: LUE prior AV fistula, BLE chronic skin changes, +1 BLE edema LINES/TUBES/DRAINS: RFA IV dressing dry & intact, no drainage or erythema at site CURRENT ANTIBIOTICS: Meropenem 500mg IV Q12h 03/24 - 03/25 Cefepime 1g IV Q24h 03/25 - present Vanco Dosing IV Q24h 03/24 - present CULTURE RESULTS/PRISCILLA: 03/24 Urine Culture -P No growth to date 03/24 Blood Cultures 2/ no growth to date -P 03/25 Culture Catheter Tip (PICC) -P No growth to date Weight Dosing Weight: 81.8 kg (03/24/22) Medications Medications (20) Active Scheduled: (15) aspirin 81 mg Chewable 81 mg 1 tab(s), Oral, Daily cefepime 1 gram(s), IV Piggyback, q24h cholecalciferol 125 mcg capsule (Vit D3 5000 unit(s)) 1 tab(s), Oral, qDay clopidogrel 75 mg Tablet 75 mg 1 tab(s), Oral, qDay epoetin javier epbx 10,000 units/mL (pf) vial - NEPH 10,000 unit(s) 1 mL, Subcutaneous, q7day heparin 5,000 units/mL (1 mL) vial 5,000 unit(s) 1 mL, Subcutaneous, q8h levETIRAcetam 500 mg tablet 500 mg 1 tab(s), Oral, BID levothyroxine 50 mcg tablet 50 mcg 1 tab(s), Oral, qDayAC [facility] communication order need current weight for vanco, Miscellaneous, qDay montelukast 10 mg Tablet 10 mg 1 tab(s), Oral, qPM pantoprazole 40 mg EC tablet 40 mg 1 tab(s), Oral, qDayAC ranolazine 500 mg ER Tablet 500 mg 1 tab(s), Oral, BID rosuvastatin 20 mg tablet 20 mg 1 tab(s), Oral, qHS VANCOMYCIN -- pharmacy re-dosing by random level 1 EA, Miscellaneous, Daily vancomycin PMX 1,250 mg 250 mL, IV Piggyback, Once Continuous: (0) PRN: (5) acetaminophen 325 mg Tablet 650 mg 2 tab(s), Oral, q6hr acetaminophen 325 mg Tablet 650 mg 2 tab(s), Oral, q6h albuterol 0.083% Soln UD (2.5mg/3 mL) 2.5 mg 3 mL, Inhalation, q6hRT melatonin 3 mg tablet 3 mg 1 tab(s), Oral, qHS polyethylene glycol 3350 - UD packet 17 gram(s) 15 mL, Oral, Daily Lab Results 03/26 06:52 WBC: 5.8 Hgb: 8.2 L Hct: 23.8 L Platelet: 155 Neutrophil %: 53.2 Glucose Level: 86 Sodium Level: 139 Potassium Level: 3.4 L BUN: 37.0 H Creatinine Lvl (s): 2.94 H 03/25 02:43 WBC: 4.9 Hgb: 7.3 L Hct: 21.3 L Platelet: 135 L Neutrophil %: 64.6 Glucose Level: 100 Sodium Level: 142 Potassium Level: 3.3 L BUN: 35.0 H Creatinine Lvl (s): 3.03 H 03/24 23:36 WBC: 5.3 Hgb: 8.5 L Hct: 25.1 L Platelet: 153 Neutrophil %: 72.2 Glucose Level: 114 Sodium Level: 142 Potassium Level: 3.6 BUN: 37.0 H Creatinine Lvl (s): 3.19 H Imaging Results and Diagnostics XR Chest 1 View Result Date: March 24, 2022 Verified By: JOHN RUBALCAVA MD CLINICAL STATEMENT: IMPRESSION: Linear opacities at the left lung base suggest atelectasis or other airspacedisease. Right midlung linear atelectasis. Problem List 1. Severe sepsis 2. Lactic acidosis 3. CKD (chronic kidney disease), stage V 4. CAD (coronary artery disease) 5. Asthma 6. Hypertension 7. Anemia Digitally Signed by Gi Echevarria RN on 03/26/2022 11:00 AM [id number] Nephrology Progress note Date of Service 8 Subjective resting Objective Vitals and Measurements T: 36.9 C (Oral) TMIN: 36.7 C (Oral) TMAX: 37.1 C (Oral) HR: 93(Apical) RR: 18 BP: 133/62 SpO2: 96% Intake and Output 7AM Yesterday to 7AM Today Intake and Output (Last 24 hours) Intake Oral Intake 400.00 Output Urine Voided 300.00 Stool Count 0.00 Urine Count 3.00 Total Summary Total Intake 400.00 Total Output 300.00 Fluid Balance 100.00 Physical Exam General: resting HEENT: No pallor/icterus Chest: Chest equal in expansion, and clear to auscultation bilaterally. Heart: s1s2 heard. regular. No murmur/rub appreciated. Abdomen: Soft. Nondistended. Nontender. Bowel sounds heard. Extremities: No cyanosis. No significant edema noted in bilateral extremities. Neuro: b/l power equal in UE. Skin/Musculoskeletal: No new rash. No joint effusion Access:left ij picc Weight Dosing Weight: 81.8 kg (03/24/22) Medications Medications (18) Active Scheduled: (13) aspirin 81 mg Chewable 81 mg 1 tab(s), Oral, Daily cefepime 1 gram(s), IV Piggyback, q24h cholecalciferol 125 mcg capsule (Vit D3 5000 unit(s)) 1 tab(s), Oral, qDay clopidogrel 75 mg Tablet 75 mg 1 tab(s), Oral, qDay heparin 5,000 units/mL (1 mL) vial 5,000 unit(s) 1 mL, Subcutaneous, q8h levETIRAcetam 500 mg tablet 500 mg 1 tab(s), Oral, BID levothyroxine 50 mcg tablet 50 mcg 1 tab(s), Oral, qDayAC Misc communication order need current weight for vanco, Miscellaneous, qDay montelukast 10 mg Tablet 10 mg 1 tab(s), Oral, qPM pantoprazole 40 mg EC tablet 40 mg 1 tab(s), Oral, qDayAC ranolazine 500 mg ER Tablet 500 mg 1 tab(s), Oral, BID rosuvastatin 20 mg tablet 20 mg 1 tab(s), Oral, qHS VANCOMYCIN -- pharmacy re-dosing by random level 1 EA, Miscellaneous, Daily Continuous: (0) PRN: (5) acetaminophen 325 mg Tablet 650 mg 2 tab(s), Oral, q6hr acetaminophen 325 mg Tablet 650 mg 2 tab(s), Oral, q6h albuterol 0.083% Soln UD (2.5mg/3 mL) 2.5 mg 3 mL, Inhalation, q6hRT melatonin 3 mg tablet 3 mg 1 tab(s), Oral, qHS polyethylene glycol 3350 - UD packet 17 gram(s) 15 mL, Oral, Daily Lab Results 03/25 02:43 WBC: 4.9 Hgb: 7.3 L Hct: 21.3 L Platelet: 135 L Neutrophil %: 64.6 Glucose Level: 100 Sodium Level: 142 Potassium Level: 3.3 L BUN: 35.0 H Creatinine Lvl (s): 3.03 H 03/24 23:36 WBC: 5.3 Hgb: 8.5 L Hct: 25.1 L Platelet: 153 Neutrophil %: 72.2 Glucose Level: 114 Sodium Level: 142 Potassium Level: 3.6 BUN: 37.0 H Creatinine Lvl (s): 3.19 H EKG No qualifying data available. Assessment/Plan 1. Severe sepsis 2. Lactic acidosis 3. CKD (chronic kidney disease), stage V 4. CAD (coronary artery disease) 5. Asthma 6. Hypertension 7. Anemia Time Spent plan 1. Renal functions areSteady. Blood pressures are reasonable. Will give about 10,000 of EPO today. Replete potassium with 20 meq of potassium. Oral. Digitally Signed by PITER MADISON MD on 03/26/2022 07:59 AM [id number] Neph[facility] Consult note Date of Service 8- Reason for Consultation ckd4/andriy History of Present Illness Patient is known to our service to Dr. Reed. She is admitted here because of fever generalized weakness noted to have sepsis. She has underlying PICC line for antibiotic infusions as an outpatient for recent upper extremity infection. She had a takedown of her AV fistula because of profound bleeding in that same area and superimposed infection. She was supposed to have another evaluation for new AV access but her potassium levels were fairly low and therefore that was delayed. She is here feeling fairly tired and somewhat dizzy as well. Denies any profound fever. She has a tunneled PICC line in the left IJ at this time. Review of Systems 10 point review of systems was done. negative other than mentioned above. Physical Exam Vitals and Measurements T: 36.9 C (Oral) TMIN: 36.7 C (Oral) TMAX: 37.1 C (Oral) HR: 93(Apical) RR: 18 BP: 133/62 SpO2: 96% Weight Dosing Weight: 81.8 kg (03/24/22) Physical Exam General: Alert, awake and oriented x 3 HEENT: No pallor/icterus Chest: Chest equal in expansion, and clear to auscultation bilaterally. Heart: s1s2 heard. regular. No murmur/rub appreciated. Abdomen: Soft. Nondistended. Nontender. Bowel sounds heard. Extremities: No cyanosis. No significant edema noted in bilateral extremities. Neuro: b/l power equal in UE. Skin/Musculoskeletal: No new rash. No joint effusion Access:left ij picc Lab Results 03/25 02:43 WBC: 4.9 Hgb: 7.3 L Hct: 21.3 L Platelet: 135 L Neutrophil %: 64.6 Glucose Level: 100 Sodium Level: 142 Potassium Level: 3.3 L BUN: 35.0 H Creatinine Lvl (s): 3.03 H 03/24 23:36 WBC: 5.3 Hgb: 8.5 L Hct: 25.1 L Platelet: 153 Neutrophil %: 72.2 Glucose Level: 114 Sodium Level: 142 Potassium Level: 3.6 BUN: 37.0 H Creatinine Lvl (s): 3.19 H Assessment/Plan 1. Severe sepsis 2. Lactic acidosis 3. CKD (chronic kidney disease), stage V 4. CAD (coronary artery disease) 5. Asthma 6. Hypertension 7. Anemia plan 1. At this point she does not require urgent dialysis. Tenuous renal functions of the borderline requiring dialysis long-term. Would avoid CT contrast as possible. Keep blood pressures greater than 110. Dose medications for GFR less than 20 at this time. IV fluids best to have some degree of bicarbonate to allow for compensation of acidosis. A.m. labs. Thank you very much Makey This document was composed using voice recognition software, therefore, typographical errors may exist. Problem List/Past Medical History Ongoing Aftercare following surgery ANDRIY (acute kidney injury) Anemia Angina Arm skin lesion, right Arthritis Asthma At risk for falls B12 deficiency Back pain Callaway's esophagus CAD (coronary artery disease) Chronic constipation Diverticulosis Draining postoperative wound Elevated ferritin Empty sella GERD (gastroesophageal reflux disease) Glasses H/O adrenal insufficiency Has Numbness Head injury History of left heart catheterization Hypercalcemia Hypercholesterolemia Hypertension Hypokalemia Hypothyroidism Laceration of face Lumbar herniated disc MRSA (methicillin resistant Staphylococcus aureus) Multiple wounds of skin MVP (mitral valve prolapse) Myalgia Osteoporosis Peripheral edema Peripheral vascular disease PTCA - Percutaneous transluminal coronary angioplasty Renal failure Rheumatoid arthritis Seizure disorder Skin lesion SOBOE (shortness of breath on exertion) Spinal stenosis Status post arterial stent Unsteady gait Vitamin D deficiency Weight gain Wound of back Historical Anemia Colon polyps HTN (hypertension) NV (myocardial infarction) Pneumonia Procedure/Surgical History Echocardiogram: 04/24/21 Lumbar: 10/2020 Echocardiogram: 03/15/20 Ankle brachial pressure index: 01/24/20 Diagnostic colonoscopy: 05/11/18 Echocardiogram: 02/14/18 Echocardiogram: 03/08/17 BRANDO - Arterial pressure index: 11/21/15 Cardiac catheterization: 2014 Bunionectomy: 08/31/14 Cardiac catheterization: 2013 Foot: 06/02/13 MUGA scan: 08/02/12 Fusion of lumbar spine: 08/05/10 Carpal tunnel release: 1994 Hysterectomy: 1979 Discectomy History of hemiarthroplasty of right hip Arthroplasty of right shoulder Coronary artery stent Esophagogastroduodenoscopy Lumpectomy of breast Medications Inpatient acetaminophen, 650 mg= 2 tab(s), Oral, q6hr, PRN acetaminophen, 650 mg= 2 tab(s), Oral, q6h, PRN albuterol 2.5 mg/3 mL (0.083%) inhalation solution, 2.5 mg= 3 mL, Inhalation, q6hRT, PRN aspirin, 81 mg= 1 tab(s), Oral, Daily cefepime heparin 5000 units/mL injection, 5000 unit(s)= 1 mL, Subcutaneous, q8h levETIRAcetam, 500 mg= 1 tab(s), Oral, BID levothyroxine, 50 mcg= 1 tab(s), Oral, qDayAC melatonin, 3 mg= 1 tab(s), Oral, qHS, PRN Miralax Powder Packet, 17 gram(s)= 15 mL, Oral, Daily, PRN montelukast, 10 mg= 1 tab(s), Oral, qPM pantoprazole, 40 mg= 1 tab(s), Oral, qDayAC Pharmacy See ORDER COMMENTS, need current weight for vanco, Miscellaneous, qDay Plavix, 75 mg= 1 tab(s), Oral, qDay ranolazine, 500 mg= 1 tab(s), Oral, BID rosuvastatin, 20 mg= 1 tab(s), Oral, qHS VANCOMYCIN -- pharmacy re-dosing by random level, 1 EA, Miscellaneous, Daily Vitamin D3 125 mcg (5000 intl units) oral capsule, 1 tab(s), Oral, qDay Home albuterol 2.5 mg/3 mL (0.083%) inhalation solution, 2.5 mg= 3 mL, Inhalation, q6h, PRN amLODIPine 2.5 mg oral tablet, 2.5 mg= 1 tab(s), Oral, qDay, 3 refills aspirin 81 mg oral delayed release tablet, 81 mg= 1 tab(s), Oral, qDay, 3 refills cyanocobalamin 1000 mcg/mL injectable solution, 1000 mcg= 1 mL, Intramuscular, qmonth furosemide 40 mg oral tablet, 40 mg= 1 tab(s), Oral, qDay, 2 refills hydrOXYzine hydrochloride 25 mg oral tablet, 25 mg= 1 tab(s), Oral, QID, 3 refills levETIRAcetam 500 mg oral tablet, 500 mg= 1 tab(s), Oral, BID levothyroxine 50 mcg (0.05 mg) oral tablet, 50 mcg= 1 tab(s), Oral, qDay metOLazone 2.5 mg oral tablet, 2.5 mg= 1 tab(s), Oral, Daily, 2 refills metoprolol succinate 25 mg oral TABLET extended release, 12.5 mg= 0.5 tab(s), Oral, qDay, 3 refills MiraLax oral powder for reconstitution, 17 gram(s), Oral, Daily, PRN Nitrostat 0.4 mg sublingual tablet, 0.4 mg= 1 tab(s), Sublingual, q5min, PRN, 2 refills omeprazole 40 mg oral delayed release capsule, 40 mg= 1 cap(s), Oral, qDay Plavix 75 mg oral tablet, 75 mg= 1 tab(s), Oral, qDay, 3 refills Potassium Chloride (Eqv-K-Tab) 20 mEq oral tablet, extended release, 20 mEq= 1 tab(s), Oral, qDay Potassium Chloride (Pkv-Htot-Xow 10) 10 mEq oral tablet, extended release, 10 mEq= 1 tab(s), Oral, qDay, 3 refills, Recent Change Ranexa 500 mg oral tablet, extended release, 500 mg= 1 tab(s), Oral, BID, 3 refills rosuvastatin 20 mg oral tablet, 20 mg= 1 tab(s), Oral, qDay, 3 refills Singulair 10 mg oral tablet, 10 mg= 1 tab(s), Oral, qPM, 3 refills temazepam 30 mg oral capsule, 30 mg= 1 cap(s), Oral, qHS, PRN, 2 refills tiZANidine 4 mg oral tablet, 4 mg= 1 tab(s), Oral, q8h Vitamin D3, 5000 Int unit, Oral, qDay Allergies Macrodantin (HIVES) Welchol (Unsure) Zaroxolyn (Unsure) colesevelam (Unknown) metOLazone (Unknown) nitrofurantoin (Unknown) pravastatin (liver) simvastatin (Liver) traMADol (GI upset) Social History Smoking Status - 06/05/2017 Never smoker Alcohol - Denies Alcohol Use, 06/05/2017 Use: Never., 03/03/2019 Home/Environment Domestic Concerns: None. Living situation: Home/Independent. Primary Chip Tester: Self. Current HomeTreatments Nebulizer treatments. Professional Skilled Services or Special Community Resources [facility]. Spouse Name: Fausto. Marital Status: ., 02/21/2021 Nutrition/Health Type of diet: Regular. Appetite Good. Eating Difficulties None. Enteral Feedings No. TPN Feedings No. Skin Breakdown No. Caffeine intake amount: 1 serving of tea/day., 11/07/2020 Substance Abuse - Denies Substance Abuse, 06/05/2017 Use: Never., 03/03/2019 Tobacco Nicotine Use: Former smoker, quit more than 30 days ago. Type: Cigarettes. Number of years: 11. Stopped at age: 48 Years., 02/21/2021 Family History Asthma: Negative: Mother, Father, Sister, Brother, Daughter and Son. Cancer: Mother, Father and Son.Negative: Sister and Brother. Congestive cardiac failure: Father. Coronary artery disease: Mother. Diabetes: Son. Diabetes mellitus: Brother.Negative: Mother, Father, Sister, Daughter and Son. HIV: Negative: Mother, Father, Sister, Brother, Daughter and Son. HTN - Hypertension: Father.Negative: Mother, Sister, Brother, Daughter and Son. Heart disease: Father.Negative: Mother, Sister, Brother, Daughter and Son. Hepatitis: Negative: Mother, Father, Sister, Brother, Daughter and Son. Hyperchloremia: Father.Negative: Mother, Sister, Brother, Daughter and Son. NV - myocardial infarction: Mother (Dx at 50). Mental illness: Negative: Mother, Father, Sister, Brother, Daughter and Son. Seizure: Negative: Mother, Father, Sister, Brother, Daughter and Son. Stroke: Negative: Mother, Father, Sister, Brother, Daughter and Son. TB - Tuberculosis: Negative: Mother, Father, Sister, Brother, Daughter and Son. Immunizations pneumococcal 13-valent conjugate vaccine: 0 unknown unit (03/04/20) tetanus-diphtheria toxoids: 0 unknown unit (03/07/11) tetanus/diphth/pertuss (Tdap) adult/adol: 0.5 unknown unit (01/19/22) zoster vaccine live: 0 unknown unit (03/04/20) zoster vaccine, inactivated: 0 unknown unit (06/28/20) Digitally Signed by PITER MADISON MD on 03/26/2022 07:57 AM [id number] Note IR Procedure Record Summary Primary Physician: MAGUI BURGER PA-C Finalized Date/Time: 03/25/22 15:24:23 Pt. Name: MARCOS SHELTON /Sex: 1950 Female Med Rec #: [id number] Physician: SAI FULLER MD Financial #: [id number] Pt. Type: I Room/Bed: 25/A Admit/Disch: 03/24/22 21:59:00 - Institution: Allergies identified in patient's electronic medical record at time of printing on 03/25/22 Entry 1 Entry 2 Entry 3 Substance Macrodantin Welchol Zaroxolyn Reaction Type Allergy Allergy Unknown Last Modified By: REN Cisneros RN Patricia Brenneman, RN Patricia 07/30/10 09:07:13 M 03/04/16 09:21:28 M 03/04/16 09:21:45 Entry 4 Entry 5 Entry 6 Substance colesevelam metOLazone nitrofurantoin Reaction Type Allergy Allergy Allergy Last Modified By: Cynthia Guerrero Elizabeth R Simmers, Elizabeth R WINDOWS SECURITY ANALYST 03/04/21 14:23:09 WINDOWS SECURITY ANALYST 03/04/21 14:22:42 WINDOWS SECURITY ANALYST 03/04/21 14:23:53 Entry 7 Entry 8 Entry 9 Substance pravastatin simvastatin traMADol Reaction Type Allergy Allergy Allergy Last Modified By: Olga Ruiz RN, Jami RN Simmers, Elizabeth R 08/27/14 09:08:12 08/27/14 09:08:23 WINDOWS SECURITY ANALYST 03/04/21 14:24:29 Case Attendance- IR Entry 1 Entry 2 Case Attendee MAGUI BURGER PA-C, Terra L Tobacco Sampler Role Performed Primary Surgeon Circulating Technologist Details Time In 03/25/22 14:45:00 03/25/22 14:45:00 Time Out 03/25/22 15:04:00 03/25/22 15:04:00 Procedure/Preference IR Tunneled PICC IR Tunneled PICC Card Removal SN Removal SN Last Modified By: Paola Díaz Terra L Tobacco Sampler 03/25/22 15:11:02 Tech 03/25/22 15:11:02 Radiology Procedures- IR Entry 1 Procedure/Preference IR Tunneled PICC Actual Procedure IR TUNNELED PICC REMOVAL Card Removal SN Primary Procedure Yes Primary Surgeon MAGUI BURGER PA-C Anesthesia/Sedation Local Type Additional Procedure Times Start 03/25/22 14:50:00 Stop 03/25/22 15:03:00 Specialty Service SN Radiology Procedure EBL 1 mL Last Modified By: Paola Díaz Tobacco Sampler 03/25/22 15:11:01 Radiology Procedure Details - IR Entry 1 Radiology Sedation Case Times Sedation Total Time 0 Radiology - Fluid/Drainage Radiology Contrast Contrast Used? No Radiology Flouroscopy Fluoroscopy Used? No Fluoro Time 0 Radiology Local Local Used? Yes Local Type: lidocaine 1% Local Dose 1 ml Radiology Procedure Site Site/Location left chest Site Condition No complications Dressing Type Bioclusive 4 X 5, Gauze Technologist Notes tunneled PICC removal sponge 4 X 4 Last Modified By: Paola Díaz Tobacco Sampler 03/25/22 15:11:55 Cultures and Specimens- IR Entry 1 Kind Culture Type Other See Comments Date/Time 03/25/22 14:53:00 Comments tip of tunneled PICC Last Modified By: Paola Díaz L Tobacco Sampler 03/25/22 15:10:19 General Case Data - IR Entry 1 Case Information Room AH IR 16 Case Level IR Level 2 Wound Class None Specialty SN Radiology Procedure ASA Class None Diagnosis Preop Diagnosis sepsis Postop Same As Preop Yes Postop Diagnosis sepsis Last Modified By: Paola Díaz Tech 03/25/22 15:10:53 Procedure Case Times- IR Entry 1 Patient In Procedure Patient In OR 03/25/22 14:45:00 Patient Out of OR 03/25/22 15:04:00 Procedure Start/Stop Procedure Start Time 03/25/22 14:50:00 Procedure Stop Time 03/25/22 15:03:00 Last Modified By: Paola Díaz Tech 03/25/22 15:08:47 Immediate Post Procedure Note - IR Entry 1 Immediate Post Yes Findings tunneled PICC removal Procedure Note displayed for Physician to review Closure Technique Closure Technique Other than Primary Last Modified By: Paola Díaz 03/25/22 15:10:30 Immediate Post Procedure Note - IR Signed By: MAGUI BURGER PA-C 03/25/22 15:24 Allergy Information- IR Entry 1 Allergies Reviewed? Yes Allergies Reviewed Patient With Last Modified By: Paola Díaz Tech 03/25/22 15:08:14 Radiology Protocols/Time Out- IR Entry 1 Preprocedure Clinician Verifies Correct patient ID When Clinically Confirmation of correct using name & date Indicated side(s) and site(s), or MRN, Accurate Correct diagnostic and procedure, complete radiology tests Informed Consent, H & P available, Required update immediately blood products, prior to procedure, if implants, devices applicable and/or special equipment available OR/Procedure Room/Bedside Time 03/25/22 14:50:00 Clinician Verifies Correct patient identity including EMR & records using name and date or medical record number, Accurate procedure consent form, Correct patient position, Necessary equipment is available, Anticipated non-routine events with surgical team (case duration, estimated blood loss, patient specific concerns)., Diego patient factors for recovery and management identified with surgical team. When Applicable Confirmation correct Team Members MAGUI BURGER PA-C, side and site marked, Present for Time Out Paola Díaz Relevant images and Tech results are properly labeled and appropriately displayed, Alcohol based prep dry Instrument Sterility Team Members Paola Díaz Verifying Sterility Tech Procedure IR Tunneled PICC Removal SN Last Modified By: Paola Díaz Tech 03/25/22 15:09:17 Skin Prep- IR Entry 1 Procedure IR Tunneled PICC Removal SN Skin Prep Prep Area Chest Side Left By Paola Díaz Prep Agents Chloraprep Tech Hair Removal Method N/A Last Modified By: Paola Díaz 03/25/22 15:09:37 Patient Positioning- IR Entry 1 Procedure IR Tunneled PICC Body Position OP Supine Removal SN Feet Uncrossed? Yes Pressure Points Yes Checked Last Modified By: Paola Díaz 03/25/22 15:09:46 Radiology Procedure Plan - IR Entry 1 Radiology - Nursing Care Plan Radiology - Action Plan Action Plan - Patient demonstrates Outcome Statement knowledge of the expected reseponses to the invasive procedure, Patient's value system, lifestyle, ethnicity, and culture are considered, respected, and incorporated in the perioperative plan of care., Patient is free from signs and symptoms of infection., Patient is free from signs and symptoms of injury related to positioning., Patient is free from signs and symptoms of chemical injury., Patient receives appropriate medication(s), safely administered during the perioperative period., Patient is free from signs and symptoms of injury caused by extraneous objects (equipment, instrumentation, sponges, or sharps)., Patient is free from signs and symptoms of electrical injury. Outcomes Met? Yes Retail Specialist Paola Díaz Procedure Plan Last Modified By: Paola Díaz 03/25/22 15:10:43 Case Comments Finalized By: Paola Díaz Document Signatures Signed By: Paola Díaz 03/25/22 15:24 [id number] Note ORIGINAL PROCEDURE: 1. REMOVAL OF A TUNNELED CENTRAL VENOUS CATHETER CLINICAL STATEMENT: infection Patient has an indwelling tunneled right internal jugular catheter that was inserted on 02/02/2022. There is no evidence of inflammation or infection at the skin entry site. After sterile preparation and draping, the cuff of the catheter was dissected free using gentle traction. It was removed as external pressure was applied at the insertion site at the lower neck. Excellent hemostasis was achieved. A sterile dry dressing was applied over the insertion site. The patient tolerated the procedure well. Tip of the catheter was placed in a specimen cup and sent to the lab for analysis. IMPRESSION: 1. Successful removal of a right internal jugular tunneled catheter. 2. Tip of catheter sent for culture. The procedure was performed by Magui Burger PA-C. I concur with the contents of the report Interpreted by: Robby Morton MD Preliminary Report By: Magui Burger PA-C Electronically signed By Robby Morton MD Dictated Date: 03/26/2022 11:37:45 AM Prelim Date: 03/26/2022 11:38:56 AM Sign Date: 03/28/2022 2:23:45 AM Ordering Provider: [facility]08-03-2022 Procedure note IR Brief Post Procedure Note Preprocedure Dx: concern for infection Post Procedure Dx: Same Procedure: Tunneled CVC removal Anesthesia: Local EBL: Minimal Complications: None Status: Unchanged Findings: 1. Successful tunneled CVC removal from the LEFT IJ. Plan: 1. Tip of catheter sent for culture. 2. Sterile dressing applied. Full report to follow. Magui Burger PA-C Interventional Radiology Pager: [phone] IR dept: [id number] Available on [employer] Digitally Signed by MAGUI BURGER PA-C on 03/25/2022 02:58 PM [id number] Hospital Discharge instructions Patient Education 03/25/2022 11:15:57 Sepsis, Self Care, Adult Sepsis, Self Care, Adult Sepsis is a serious illness that may require intensive care in the hospital. The following information explains what you need to know in order to manage your condition after you are discharged from the hospital. What are the risks? After being treated for sepsis and discharged from the hospital, you may be at a higher risk for certain problems. These problems may be physical or mental. Physical problems: Weakness and tiredness. Shortness of breath. Pain in many areas of the body. Difficulty walking. Dry, itchy skin. Lack of appetite. This may lead to weight loss. Organ failure. Mental problems: Difficulty sleeping. Depression. Confusion. Anxiety and worry caused by having gone through a bad experience (post-traumatic stress disorder,PTSD). Low self-esteem. Follow these instructions at home: Medicines Take [id number]-[id number] and prescription medicines only as told by your health care provider. If you were prescribed an antibiotic, antiviral, or antifungal medicine, take it as told by your health care provider. Do not stop taking the medicine even if you start to feel better. Eating and drinking Eat a healthy diet that includes plenty of vegetables, fruits, whole grains, low-fat dairy products, and lean protein. Ask your health care provider if you should avoid certain foods. Drink enough fluid to keep your urine pale yellow. Alcohol use Do not drink alcohol if: ?Your health care provider tells you not to drink. ?You are , may be , or are planning to become . If you drink alcohol, limit how much you use to: ?0 1 drink a day for women. ?0 2 drinks a day for men. ?Be aware of how much alcohol is in your drink. In the [place] one drink equals one 12 oz bottle of beer (355 mL), one 5 oz glass of wine (148 mL), or one 1 oz glass of hard liquor (44 mL). Activity Rest and gradually return to your normal activities. Ask your health care provider what activities are safe for you. Avoid sitting for a long time without moving. Get up to take short walks every 1 2 hours. This is important to improve blood flow and breathing. Ask for help if you feel weak or unsteady. Try to set small, achievable goals each week, such as dressing yourself, bathing, or walking up thestairs. It may take a while to rebuild your strength. Try to exercise regularly if you feel healthy enough to do so. Ask your health care provider what exercises are safe for you. Preventing infection Keep your vaccinations up to date. Get the flu shot every year. Wash your hands often using soap and water. Use hand data support analyst if soap and water are not available. Practice good hygiene. Keep cuts clean and covered until healed. Managing stress Talk with your health care provider or counselor about ways to reduce stress. He or she may suggest: Meditation, muscle relaxation, and breathing exercises. Talk therapy. Spending time on hobbies and activities that you enjoy. General instructions Get the right amount and quality of sleep. Most adults need 7 9 hours of sleep each night. To help with sleep: ?Keep your bedroom cool and dark. ?Do not eat a heavy meal within one hour of bedtime. ?Do not drink alcohol or caffeinated drinks before bed. ?Avoid screen time, such as television, computers, tablets, or cell phones before bed. Do not use any products that contain nicotine or tobacco, such as cigarettes, e- cigarettes, and chewing tobacco. If you need help quitting, ask your health care provider. Talk to trusted family members and friends about your condition. Explain your symptoms to them, andlet them know that you are working with a health care provider to treat your condition. This can provide you with one way to get support and guidance. Keep all follow-up visits as told by your health care provider. This is important. Questions to ask your health care provider: What physical and emotional changes do I need to report? Do I need to have someone with me all the time? Is it safe for me to drive? Contact a health care provider if you: Do not feel like you are getting better or regaining strength. Have muscle or joint pain. Frequently feel tired. Are having trouble coping with your recovery. Have nightmares, or trouble falling asleep or staying asleep. Feel sad, down, or depressed more often than not, every day for more than 2 weeks. Have difficulty concentrating. Feel irritable or you cry for no reason. Get help right away if you: Have difficulty breathing. Have a rapid or skipping heartbeat. Become confused or disoriented. See, hear, or feel things that do not exist (hallucinations). Have a high fever. Have an infection that is getting worse or not getting better. You have thoughts of hurting yourself or others. If you ever feel like you may hurt yourself or others, or have thoughts about taking your own life,get help right away. You can go to your nearest emergency department or call: Your local emergency services (911 in the [place] A suicide crisis helpline, such as the National Suicide Prevention Lifeline at . Thisis open 24 hours a day. Summary Sepsis is a serious illness that may require intensive care in a hospital. You may experience long-term health effects after you are discharged from the hospital. Try to set small, achievable goals each week, such as dressing yourself, bathing, or walking up thestairs. It may take a while to rebuild your strength. Keep all follow-up visits as told by your health care provider. This is important. Know what symptoms you should get help right away for. This information is not intended to replace advice given to you by your health care provider. Make sure you discuss any questions you have with your health care provider. Document Released: 03/17/2019 Document Revised: 03/17/2019 Document Reviewed: 03/17/2019 [employer] Patient Education 2020 [email or web address]. Follow Up Care 03/24/2022 22:44:02 With:NOEL RAMOS BA, MD, Infectious Disease, Infectious Disease Group Address: [facility] [id number] [place] [address]- When:5 to 7 days only if needed With:MELISSA CURRIE MD Address: [address] [facility] [place] [place] [address]- [phone] When:5 to 7 days With:BELL MAHER MD Address: [address] [facility] [place] [address]- When:1-2 days Comments:Please call the office to schedule a follow up appointment [facility] 08-03-2022 Infectious disease Consult note Date of Service 03/25/2022 Reason for Consultation Sepsis, fever, suspected PICC line infection Referring Physician Dr. Suarez History of Present Illness Patient is a 71yo FM admitted 03/24/2022 for sepsis. She has PMH significant for coronary artery disease status post stents, asthma, hypothyroidism, CKD stage V not on outpatient dialysis. The patient was most recently admitted and discharged from [facility] February 02, 2022 after being treated for open wound to fistula site with recurrent bleeds. She underwent an exploration of the left arm hematoma with ligation of left brachiobasilic AV fistula and repair of left brachial artery by vascular 01/29/22. Her LUE wound was cultured and grew Klebsiella and Staph Aureus. IR tunnelled PICC was placed and the patient was discharged on a 4-week course of cefepime. The patient was transferred to [facility] from due to sepsis-like features and PICC line infection. She presented to on 03/23/22 for fever, nausea/vomiting, and chills. The patient received IV fluids and meropenem and vancomycin at [facility] prior to transfer. On admission, patient was febrile [temp 39.3] without leukocytosis [WBC 5.3]. Other lab work was significant for elevated BUN [37] and elevated Creatinine [3.19]. Physical assessment was significant for tachycardia [HR 104], tachypnea [RR 24], and PICC line to left upper chest with no evidence of infection. CXR was completed which showed linear opacities at the left lung base that suggest atelectasis or other airspace disease and right midlung linear atelectasis. Urine and Blood Cultures were obtained. ID was consulted for further recommendations regarding sepsis. The patient has been febrile in the last 24 hours [max temp 39.3] without leukocytosis [WBC 4.9]. Blood Cultures are pending in lab withno growth to date. Urine Culture is pending in lab. The patient has been maintained on Meropenem and Vancomycin. Review of Systems 12 point review of systems is reviewed and is negative except for noted above. Physical Exam Vitals and Measurements T: 36.9 C (Oral) TMIN: 36.9 C (Oral) TMAX: 39.3 C (Oral) HR: 86(Monitored) RR: 18 BP: 121/58 SpO2: 96% HT: 162.6 cm WT: 81.8 kg BMI: 30.94 Weight Dosing Weight: 81.8 kg (03/24/22) General Appearance: Patient is laying in the bed not in any apparent distress HEENT: Atraumatic normocephalic, EOMI Neck: Neck supple oral mucosa moist Cardiac: first and second heart sounds audible Lungs: Clear to auscultation bilaterally Abdomen: Soft nontender nondistended bowel sounds positive Musculoskeletal: Left upper extremity at prior AV fistula site, noted to have some bruising but no erythema or tenderness. Tender left-sided chest PICC noted No tenderness over spine Extremities: No lower extremity edema Neurological: Grossly non focal Skin: Few scattered crusted lesions on right upper extremity Lab Results 03/25 02:43 WBC: 4.9 Hgb: 7.3 L Hct: 21.3 L Platelet: 135 L Neutrophil %: 64.6 Glucose Level: 100 Sodium Level: 142 Potassium Level: 3.3 L BUN: 35.0 H Creatinine Lvl (s): 3.03 H 03/24 23:36 WBC: 5.3 Hgb: 8.5 L Hct: 25.1 L Platelet: 153 Neutrophil %: 72.2 Glucose Level: 114 Sodium Level: 142 Potassium Level: 3.6 BUN: 37.0 H Creatinine Lvl (s): 3.19 H Imaging Results and Diagnostics XR Chest 1 View Result Date: March 24, 2022 Verified By: JOHN RUBALCAVA MD CLINICAL STATEMENT: IMPRESSION: Linear opacities at the left lung base suggest atelectasis or other airspacedisease. Right midlung linear atelectasis. Assessment/Plan 1. Severe sepsis 2. Lactic acidosis 3. CKD (chronic kidney disease), stage V 4. CAD (coronary artery disease) 5. Asthma 6. Hypertension 7. Anemia Patient is a 71-year-old female with history of CKD stage V and multiple other comorbid conditions who is well-known to us from recent hospitalization in January 2022 for infection of left upper extremity AV fistula status post debridement and discharged on 4-week course of IV cefepime given isolationof MSSA and Klebsiella from cultures. Patient had a tunneled PICC line placed for that purpose. Patient reports that she was in her usual state of health up until a week ago when she went to [facility] for placement of right upper extremity AV fistula however the procedure was canceled octavio electrolytes were abnormal. Apparently her tunneled PICC line was attempted to be flushed but could not be flushed. Patient came home but then got sick with fevers chills and nausea vomiting, shereports that she was sick for about a week and eventually presented to [facility]. At she was given empiric antibiotics and transferred here.Upon presentation here noted to have afever of 39.3 but no leukocytosis. Exam and initial work-up is largely nonfocal except for presenceof tunneled PICC line in left side of the chest. Recommend that the tunneled PICC line be removed and tip sent for culture Follow-up on blood cultures obtained at [facility] Continue vancomycin IV Change meropenem to cefepime 1 g IV every 24 hours We will follow along. Problem List/Past Medical History Ongoing Aftercare following surgery ANDRIY (acute kidney injury) Anemia Angina Arm skin lesion, right Arthritis Asthma At risk for falls B12 deficiency Back pain Callaway's esophagus CAD (coronary artery disease) Chronic constipation Diverticulosis Draining postoperative wound Elevated ferritin Empty sella GERD (gastroesophageal reflux disease) Glasses H/O adrenal insufficiency Has Numbness Head injury History of left heart catheterization Hypercalcemia Hypercholesterolemia Hypertension Hypokalemia Hypothyroidism Laceration of face Lumbar herniated disc MRSA (methicillin resistant Staphylococcus aureus) Multiple wounds of skin MVP (mitral valve prolapse) Myalgia Osteoporosis Peripheral edema Peripheral vascular disease PTCA - Percutaneous transluminal coronary angioplasty Renal failure Rheumatoid arthritis Seizure disorder Skin lesion SOBOE (shortness of breath on exertion) Spinal stenosis Status post arterial stent Unsteady gait Vitamin D deficiency Weight gain Wound of back Historical Anemia Colon polyps HTN (hypertension) NV (myocardial infarction) Pneumonia Procedure/Surgical History Echocardiogram: 04/24/21 Lumbar: 10/2020 Echocardiogram: 03/15/20 Ankle brachial pressure index: 01/24/20 Diagnostic colonoscopy: 05/11/18 Echocardiogram: 02/14/18 Echocardiogram: 03/08/17 BRANDO - Arterial pressure index: 11/21/15 Cardiac catheterization: 2014 Bunionectomy: 08/31/14 Cardiac catheterization: 2013 Foot: 06/02/13 MUGA scan: 08/02/12 Fusion of lumbar spine: 08/05/10 Carpal tunnel release: 1994 Hysterectomy: 1978 Discectomy History of hemiarthroplasty of right hip Arthroplasty of right shoulder Coronary artery stent Esophagogastroduodenoscopy Lumpectomy of breast Medications Inpatient acetaminophen, 650 mg= 2 tab(s), Oral, q6hr, PRN acetaminophen, 650 mg= 2 tab(s), Oral, q6h, PRN albuterol 2.5 mg/3 mL (0.083%) inhalation solution, 2.5 mg= 3 mL, Inhalation, q6hRT, PRN aspirin, 81 mg= 1 tab(s), Oral, Daily heparin 5000 units/mL injection, 5000 unit(s)= 1 mL, Subcutaneous, q8h levETIRAcetam, 500 mg= 1 tab(s), Oral, BID levothyroxine, 50 mcg= 1 tab(s), Oral, qDayAC melatonin, 3 mg= 1 tab(s), Oral, qHS, PRN meropenem Miralax Powder Packet, 17 gram(s)= 15 mL, Oral, Daily, PRN montelukast, 10 mg= 1 tab(s), Oral, qPM pantoprazole, 40 mg= 1 tab(s), Oral, qDayAC Pharmacy See ORDER COMMENTS, need current weight for vanco, Miscellaneous, qDay Plavix, 75 mg= 1 tab(s), Oral, qDay ranolazine, 500 mg= 1 tab(s), Oral, BID rosuvastatin, 20 mg= 1 tab(s), Oral, qHS VANCOMYCIN -- pharmacy re-dosing by random level, 1 EA, Miscellaneous, Daily Vitamin D3 125 mcg (5000 intl units) oral capsule, 1 tab(s), Oral, qDay Home albuterol 2.5 mg/3 mL (0.083%) inhalation solution, 2.5 mg= 3 mL, Inhalation, q6h, PRN amLODIPine 2.5 mg oral tablet, 2.5 mg= 1 tab(s), Oral, qDay, 3 refills aspirin 81 mg oral delayed release tablet, 81 mg= 1 tab(s), Oral, qDay, 3 refills cyanocobalamin 1000 mcg/mL injectable solution, 1000 mcg= 1 mL, Intramuscular, qmonth furosemide 40 mg oral tablet, 40 mg= 1 tab(s), Oral, qDay, 2 refills hydrOXYzine hydrochloride 25 mg oral tablet, 25 mg= 1 tab(s), Oral, QID, 3 refills levETIRAcetam 500 mg oral tablet, 500 mg= 1 tab(s), Oral, BID levothyroxine 50 mcg (0.05 mg) oral tablet, 50 mcg= 1 tab(s), Oral, qDay metOLazone 2.5 mg oral tablet, 2.5 mg= 1 tab(s), Oral, Daily, 2 refills metoprolol succinate 25 mg oral TABLET extended release, 12.5 mg= 0.5 tab(s), Oral, qDay, 3 refills MiraLax oral powder for reconstitution, 17 gram(s), Oral, Daily, PRN Nitrostat 0.4 mg sublingual tablet, 0.4 mg= 1 tab(s), Sublingual, q5min, PRN, 2 refills omeprazole 40 mg oral delayed release capsule, 40 mg= 1 cap(s), Oral, qDay Plavix 75 mg oral tablet, 75 mg= 1 tab(s), Oral, qDay, 3 refills Potassium Chloride (Eqv-K-Tab) 20 mEq oral tablet, extended release, 20 mEq= 1 tab(s), Oral, qDay Potassium Chloride (Rso-Sfui-Goq 10) 10 mEq oral tablet, extended release, 10 mEq= 1 tab(s), Oral, qDay, 3 refills, Recent Change Ranexa 500 mg oral tablet, extended release, 500 mg= 1 tab(s), Oral, BID, 3 refills rosuvastatin 20 mg oral tablet, 20 mg= 1 tab(s), Oral, qDay, 3 refills Singulair 10 mg oral tablet, 10 mg= 1 tab(s), Oral, qPM, 3 refills temazepam 30 mg oral capsule, 30 mg= 1 cap(s), Oral, qHS, PRN, 2 refills tiZANidine 4 mg oral tablet, 4 mg= 1 tab(s), Oral, q8h Vitamin D3, 5000 Int unit, Oral, qDay Allergies Macrodantin (HIVES) Welchol (Unsure) Zaroxolyn (Unsure) colesevelam (Unknown) metOLazone (Unknown) nitrofurantoin (Unknown) pravastatin (liver) simvastatin (Liver) traMADol (GI upset) Social History Smoking Status - 06/05/2017 Never smoker Alcohol - Denies Alcohol Use, 06/05/2017 Use: Never., 03/03/2019 Home/Environment Domestic Concerns: None. Living situation: Home/Independent. Primary Chip Tester: Self. Current HomeTreatments Nebulizer treatments. Professional Skilled Services or Special Community Resources [facility]. Spouse Name: Fausto. Marital Status: ., 02/21/2021 Nutrition/Health Type of diet: Regular. Appetite Good. Eating Difficulties None. Enteral Feedings No. TPN Feedings No. Skin Breakdown No. Caffeine intake amount: 1 serving of tea/day., 11/07/2020 Substance Abuse - Denies Substance Abuse, 06/05/2017 Use: Never., 03/03/2019 Tobacco Nicotine Use: Former smoker, quit more than 30 days ago. Type: Cigarettes. Number of years: 11. Stopped at age: 48 Years., 02/21/2021 Family History Asthma: Negative: Mother, Father, Sister, Brother, Daughter and Son. Cancer: Mother, Father and Son.Negative: Sister and Brother. Congestive cardiac failure: Father. Coronary artery disease: Mother. Diabetes: Son. Diabetes mellitus: Brother.Negative: Mother, Father, Sister, Daughter and Son. HIV: Negative: Mother, Father, Sister, Brother, Daughter and Son. HTN - Hypertension: Father.Negative: Mother, Sister, Brother, Daughter and Son. Heart disease: Father.Negative: Mother, Sister, Brother, Daughter and Son. Hepatitis: Negative: Mother, Father, Sister, Brother, Daughter and Son. Hyperchloremia: Father.Negative: Mother, Sister, Brother, Daughter and Son. NV - myocardial infarction: Mother (Dx at 50). Mental illness: Negative: Mother, Father, Sister, Brother, Daughter and Son. Seizure: Negative: Mother, Father, Sister, Brother, Daughter and Son. Stroke: Negative: Mother, Father, Sister, Brother, Daughter and Son. TB - Tuberculosis: Negative: Mother, Father, Sister, Brother, Daughter and Son. Immunizations pneumococcal 13-valent conjugate vaccine: 0 unknown unit (03/04/20) tetanus-diphtheria toxoids: 0 unknown unit (03/07/11) tetanus/diphth/pertuss (Tdap) adult/adol: 0.5 unknown unit (01/19/22) zoster vaccine live: 0 unknown unit (03/04/20) zoster vaccine, inactivated: 0 unknown unit (06/28/20) [1] Progress Note; Gi Echevarria RN 03/25/2022 10:13 EDT Digitally Signed by ISABELA JOHNSON MD on 03/25/2022 11:06 AM [id number] Infectious disease Progress note Date of Service 03/25/2022 Chief Complaint Chart Reviewed. Patient is a 71yo FM admitted 03/24/2022 for sepsis. She has PMH significant for coronary artery disease status post stents, asthma, hypothyroidism, CKD stage V not on outpatient dialysis. The patient was most recently admitted and discharged from [facility] February 02, 2022 after being treated for open wound to fistula site with recurrent bleeds. She underwent an exploration of the left arm hematoma with ligation of left brachiobasilic AV fistula and repair of left brachial artery by vascular 01/29/22. Her LUE wound was cultured and grew Klebsiella and Staph Aureus. IR tunnelled PICC was placed and the patient was discharged on a 4-week course of cefepime. The patient was transferred to [facility] from due to sepsis-like features and PICC line infection. She presented to on 03/23/22 for fever, nausea/vomiting, and chills. The patient received IV fluids and meropenem and vancomycin at Hospital prior to transfer. On admission, patient was febrile [temp 39.3] without leukocytosis [WBC 5.3]. Other lab work was significant for elevated BUN [37] and elevated Creatinine [3.19]. Physical assessment was significant for tachycardia [HR 104], tachypnea [RR 24], and PICC line to left upper chest with no evidence of infection. CXR was completed which showed linear opacities at the left lung base that suggest atelectasis or other airspace disease and right midlung linear atelectasis. Urine and Blood Cultures were obtained. ID was consulted for further recommendations regarding sepsis. The patient has been febrile in the last 24 hours [max temp 39.3] without leukocytosis [WBC 4.9]. Blood Cultures are pending in lab withno growth to date. Urine Culture is pending in lab. The patient has been maintained on Meropenem and Vancomycin. Objective Vitals and Measurements T: 36.9 C (Oral) TMIN: 36.9 C (Oral) TMAX: 39.3 C (Oral) HR: 76 RR: 16 BP: 133/55 SpO2: 100% HT: 162.6 cm WT: 81.8 kg BMI: 30.94 Intake and Output 7AM Yesterday to 7AM Today Intake and Output (Last 24 hours) Intake Oral Intake 480.00 Output Urine Voided 500.00 Stool Count 0.00 Emesis Count 0.00 Total Summary Total Intake 480.00 Total Output 500.00 Fluid Balance -20.00 Medications Medications (18) Active Scheduled: (13) aspirin 81 mg Chewable 81 mg 1 tab(s), Oral, Daily cholecalciferol 125 mcg capsule (Vit D3 5000 unit(s)) 1 tab(s), Oral, qDay clopidogrel 75 mg Tablet 75 mg 1 tab(s), Oral, qDay heparin 5,000 units/mL (1 mL) vial 5,000 unit(s) 1 mL, Subcutaneous, q8h levETIRAcetam 500 mg tablet 500 mg 1 tab(s), Oral, BID levothyroxine 50 mcg tablet 50 mcg 1 tab(s), Oral, qDayAC meropenem 500 mg, IV Piggyback, q12h [facility] communication order need current weight for vanco, Miscellaneous, qDay montelukast 10 mg Tablet 10 mg 1 tab(s), Oral, qPM pantoprazole 40 mg EC tablet 40 mg 1 tab(s), Oral, qDayAC ranolazine 500 mg ER Tablet 500 mg 1 tab(s), Oral, BID rosuvastatin 20 mg tablet 20 mg 1 tab(s), Oral, qHS VANCOMYCIN -- pharmacy re-dosing by random level 1 EA, Miscellaneous, Daily Continuous: (0) PRN: (5) acetaminophen 325 mg Tablet 650 mg 2 tab(s), Oral, q6hr acetaminophen 325 mg Tablet 650 mg 2 tab(s), Oral, q6h albuterol 0.083% Soln UD (2.5mg/3 mL) 2.5 mg 3 mL, Inhalation, q6hRT melatonin 3 mg tablet 3 mg 1 tab(s), Oral, qHS polyethylene glycol 3350 - UD packet 17 gram(s) 15 mL, Oral, Daily Lab Results 03/25 02:43 WBC: 4.9 Hgb: 7.3 L Hct: 21.3 L Platelet: 135 L Neutrophil %: 64.6 Glucose Level: 100 Sodium Level: 142 Potassium Level: 3.3 L BUN: 35.0 H Creatinine Lvl (s): 3.03 H 03/24 23:36 WBC: 5.3 Hgb: 8.5 L Hct: 25.1 L Platelet: 153 Neutrophil %: 72.2 Glucose Level: 114 Sodium Level: 142 Potassium Level: 3.6 BUN: 37.0 H Creatinine Lvl (s): 3.19 H Imaging Results and Diagnostics XR Chest 1 View Result Date: March 24, 2022 Verified By: JOHN RUBALCAVA MD CLINICAL STATEMENT: IMPRESSION: Linear opacities at the left lung base suggest atelectasis or other airspacedisease. Right midlung linear atelectasis. Digitally Signed by Gi Echevarria RN on 03/25/2022 10:28 AM [id number] Infectious disease Progress note Date of Service 03/25/2022 Chief Complaint Chart Reviewed. Patient is a 71yo FM admitted 03/24/2022 for sepsis. She has PMH significant for coronary artery disease status post stents, asthma, hypothyroidism, CKD stage V not on outpatient dialysis. The patient was most recently admitted and discharged from [facility] February 02, 2022 after being treated for open wound to fistula site with recurrent bleeds. She underwent an exploration of the left arm hematoma with ligation of left brachiobasilic AV fistula and repair of left brachial artery by vascular 01/29/22. Her LUE wound was cultured and grew Klebsiella and Staph Aureus. IR tunnelled PICC was placed and the patient was discharged on a 4-week course of cefepime. The patient was transferred to [facility] from due to sepsis-like features and PICC line infection. She presented to on 03/23/22 for fever, nausea/vomiting, and chills. The patient received IV fluids and meropenem and vancomycin at Hospital prior to transfer. On admission, patient was febrile [temp 39.3] without leukocytosis [WBC 5.3]. Other lab work was significant for elevated BUN [37] and elevated Creatinine [3.19]. Physical assessment was significant for tachycardia [HR 104], tachypnea [RR 24], and PICC line to left upper chest with no evidence of infection. CXR was completed which showed linear opacities at the left lung base that suggest atelectasis or other airspace disease and right midlung linear atelectasis. Urine and Blood Cultures were obtained. ID was consulted for further recommendations regarding sepsis. The patient has been febrile in the last 24 hours [max temp 39.3] without leukocytosis [WBC 4.9]. Blood Cultures are pending in lab withno growth to date. Urine Culture is pending in lab. The patient has been maintained on Meropenem and Vancomycin. Objective Vitals and Measurements T: 36.9 C (Oral) TMIN: 36.9 C (Oral) TMAX: 39.3 C (Oral) HR: 76 RR: 16 BP: 133/55 SpO2: 100% HT: 162.6 cm WT: 81.8 kg BMI: 30.94 Intake and Output 7AM Yesterday to 7AM Today Intake and Output (Last 24 hours) Intake Oral Intake 480.00 Output Urine Voided 500.00 Stool Count 0.00 Emesis Count 0.00 Total Summary Total Intake 480.00 Total Output 500.00 Fluid Balance -20.00 Medications Medications (18) Active Scheduled: (13) aspirin 81 mg Chewable 81 mg 1 tab(s), Oral, Daily cholecalciferol 125 mcg capsule (Vit D3 5000 unit(s)) 1 tab(s), Oral, qDay clopidogrel 75 mg Tablet 75 mg 1 tab(s), Oral, qDay heparin 5,000 units/mL (1 mL) vial 5,000 unit(s) 1 mL, Subcutaneous, q8h levETIRAcetam 500 mg tablet 500 mg 1 tab(s), Oral, BID levothyroxine 50 mcg tablet 50 mcg 1 tab(s), Oral, qDayAC meropenem 500 mg, IV Piggyback, q12h Misc communication order need current weight for vanco, Miscellaneous, qDay montelukast 10 mg Tablet 10 mg 1 tab(s), Oral, qPM pantoprazole 40 mg EC tablet 40 mg 1 tab(s), Oral, qDayAC ranolazine 500 mg ER Tablet 500 mg 1 tab(s), Oral, BID rosuvastatin 20 mg tablet 20 mg 1 tab(s), Oral, qHS VANCOMYCIN -- pharmacy re-dosing by random level 1 EA, Miscellaneous, Daily Continuous: (0) PRN: (5) acetaminophen 325 mg Tablet 650 mg 2 tab(s), Oral, q6hr acetaminophen 325 mg Tablet 650 mg 2 tab(s), Oral, q6h albuterol 0.083% Soln UD (2.5mg/3 mL) 2.5 mg 3 mL, Inhalation, q6hRT melatonin 3 mg tablet 3 mg 1 tab(s), Oral, qHS polyethylene glycol 3350 - UD packet 17 gram(s) 15 mL, Oral, Daily Lab Results 03/25 02:43 WBC: 4.9 Hgb: 7.3 L Hct: 21.3 L Platelet: 135 L Neutrophil %: 64.6 Glucose Level: 100 Sodium Level: 142 Potassium Level: 3.3 L BUN: 35.0 H Creatinine Lvl (s): 3.03 H 03/24 23:36 WBC: 5.3 Hgb: 8.5 L Hct: 25.1 L Platelet: 153 Neutrophil %: 72.2 Glucose Level: 114 Sodium Level: 142 Potassium Level: 3.6 BUN: 37.0 H Creatinine Lvl (s): 3.19 H Imaging Results and Diagnostics XR Chest 1 View Result Date: March 24, 2022 Verified By: JOHN RUBALCAVA MD CLINICAL STATEMENT: IMPRESSION: Linear opacities at the left lung base suggest atelectasis or other airspacedisease. Right midlung linear atelectasis. Digitally Signed by Gi Echevarria RN on 03/25/2022 10:28 AM [id number] Note Date of Service 03/25/22 Chief Complaint Nausea/vomiting Subjective Patient is a 71-year-old female with a past medical history significant for coronary artery diseasestatus post stents, hypertension, hyperlipidemia, peripheral vascular disease status post iliac artery stents-follows with vascular, seizure disorder, hypothyroidism, chronic anemia, CKD stage IV, status post AV fistula placed in October 2021, ZACH, frequent falls, degenerative joint disease . [facility] with complaints of nausea, vomiting, fever, chills and general malaise. Patient was transferred from [facility] on March 24, 2020 with a concernfor sepsis-like features and PICC line infection. Patient was recently discharged February 02, 2022. Patient was admitted to [facility] for hypovolemic shock, acute open wound to the AV fistula. The patient's left upper extremity wound was cultured, wound growing Klebsiella and staph aureus. US of LUE showed 2 separate areas compatible with hematoma. No evidence of pseudoaneurysm. Patient found to have a recurrent bleed from wound at AV fistula site, patient is s/p exploration of the left arm hematoma with ligation of left brachiobasilic AV fistula and repair of left brachial artery by vascular 01/29/22. [1] Patient was started of hemodialysis this admission, underwent 2 treatments. Kidney enzymes improved, dialysis line was pulled prior to discharge. Diuretics were adjusted to Bumex. [2] Patient was discharged with a 4-week course of cefepime to treat left upper extremity wound/infection. During the hospitalization patient was evaluated by nephrology, vascular surgery and infectious disease. Patient is currently resting in bed. No family at bedside. Patient is alert and oriented she answers all questions appropriately. Patient states she is feeling much better than Wednesday. Patient deniesshortness of breath, chest pain, palpitations, dizziness, blurred vision, difficulty speaking, nausea, vomiting, diarrhea, constipation, urinary symptoms, night sweats, cough, fever and chills. Objective Vitals and Measurements T: 36.9 C (Oral) TMIN: 36.9 C (Oral) TMAX: 39.3 C (Oral) HR: 76 RR: 16 BP: 133/55 SpO2: 100% HT: 162.6 cm WT: 81.8 kg BMI: 30.94 Intake and Output 7AM Yesterday to 7AM Today Intake and Output (Last 24 hours) Intake Oral Intake 480.00 Output Urine Voided 200.00 Stool Count 0.00 Emesis Count 0.00 Total Summary Total Intake 480.00 Total Output 200.00 Fluid Balance 280.00 Physical Exam Vitals Signs(Last 24 hrs)__ Last Charted Minimum Maximum Temp 36.9(MAR 25 10:41) 36.9(MAR 25 10:41) C 39.3(MAR 24 22:10) Heart Rate 86(MAR 25 10:41) 86(MAR 25 10:41) 86(MAR 25 10:41) Resp Rate 18(MAR 25 10:41) 16(MAR 25 06:35) H 24(MAR 24 22:10) SBP 121(MAR 25 10:41) 121(MAR 25 10:41) H 149(MAR 25 00:26) DBP L 58(MAR 25 10:41) L 55(MAR 25 06:35) 76(MAR 24 22:10) Physical Exam General: No acute distress. Alert and Appropriate Skin: No rash. Warm, Dry, Intact. Fragile. Scattered ecchymotic areas. Former Left AV fistula site,healing well. HEENT: Head is normocephalic and atraumatic. No lesions. Pupils equal in size. Extraocular movements within normal limits. Nose: No septal deviation. Mouth: Oropharynx mucosa is without lesion. Neck: Supple. No lymphadenopathy, thyromegaly noted. Lungs: Bilaterally diminished breath sounds with no crepitation or wheeze. Unlabored Cardiovascular: Heart is regular rhythm, S1S2, No extra-audible heart tones Abdomen: Abdomen is soft, nontender. Bowel sounds positive all four quadrants. Extremities: No clubbing, cyanosis or edema. Peripheral pulses palpable. No calf tenderness. Adequate peripheral circulation. Neurological: The patient is awake, oriented to time, people and place. Following simple commands, moving all extremities. Weight Dosing Weight: 81.8 kg (03/24/22) Medications Medications (18) Active Scheduled: (13) aspirin 81 mg Chewable 81 mg 1 tab(s), Oral, Daily cholecalciferol 125 mcg capsule (Vit D3 5000 unit(s)) 1 tab(s), Oral, qDay clopidogrel 75 mg Tablet 75 mg 1 tab(s), Oral, qDay heparin 5,000 units/mL (1 mL) vial 5,000 unit(s) 1 mL, Subcutaneous, q8h levETIRAcetam 500 mg tablet 500 mg 1 tab(s), Oral, BID levothyroxine 50 mcg tablet 50 mcg 1 tab(s), Oral, qDayAC meropenem 500 mg, IV Piggyback, q12h Misc communication order need current weight for vanco, Miscellaneous, qDay montelukast 10 mg Tablet 10 mg 1 tab(s), Oral, qPM pantoprazole 40 mg EC tablet 40 mg 1 tab(s), Oral, qDayAC ranolazine 500 mg ER Tablet 500 mg 1 tab(s), Oral, BID rosuvastatin 20 mg tablet 20 mg 1 tab(s), Oral, qHS VANCOMYCIN -- pharmacy re-dosing by random level 1 EA, Miscellaneous, Daily Continuous: (0) PRN: (5) acetaminophen 325 mg Tablet 650 mg 2 tab(s), Oral, q6hr acetaminophen 325 mg Tablet 650 mg 2 tab(s), Oral, q6h albuterol 0.083% Soln UD (2.5mg/3 mL) 2.5 mg 3 mL, Inhalation, q6hRT melatonin 3 mg tablet 3 mg 1 tab(s), Oral, qHS polyethylene glycol 3350 - UD packet 17 gram(s) 15 mL, Oral, Daily Lab Results 03/25 02:43 WBC: 4.9 Hgb: 7.3 L Hct: 21.3 L Platelet: 135 L Neutrophil %: 64.6 Glucose Level: 100 Sodium Level: 142 Potassium Level: 3.3 L BUN: 35.0 H Creatinine Lvl (s): 3.03 H 03/24 23:36 WBC: 5.3 Hgb: 8.5 L Hct: 25.1 L Platelet: 153 Neutrophil %: 72.2 Glucose Level: 114 Sodium Level: 142 Potassium Level: 3.6 BUN: 37.0 H Creatinine Lvl (s): 3.19 H EKG Electrocardiogram (EKG) - InProcess -- 03/24/22 22:53:00 EDT Assessment/Plan 1. Severe sepsis 2. Lactic acidosis 3. CKD (chronic kidney disease), stage V 4. CAD (coronary artery disease) 5. Asthma 6. Hypertension 7. Anemia Severe sepsis/lactic acidosis- Infectious disease consulted - Left sided PICC line removed and sent for culture. -IV antibiotics changed meropenem to cefepime 1 g IV every 24 hours per ID. Previous hospitalization documentation reviewed. Anemia- continue to monitor. Patient is asymptomatic and hemodynamically stable. No signs of activeblood loss at this time. CKD V- nephrology involved. Appreciate input. Continue to monitor kidney function, intake and output. Asthma- not in acute exacerbation. Hypothyroidism/hypertension/ GERD- Continue home medications Plan of care discussed with patient. All questions answered. Patient verbalized understanding is agreeable to plan of care. Discussed with my collaborating physician Dr. Gilberto Suarez. This dictation was performed using voice recognition software and may include grammatical Time Spent 32 minutes >50% of the time was spent in counseling and/or coordination of care. [1] Discharge Summary with PHYLICIA CACERES 02/02/2022 09:05 EDT [2] Discharge Summary with PHYLICIA CACERES 02/02/2022 09:05 EDT Digitally Signed by PETRA ROSS on 03/25/2022 02:19 PM [id number] History and physical note Date of Service March 24, 2022 Chief Complaint Fever, nausea/vomiting and chills. History of Present Illness A 71 years old female with past medical history significant for coronary artery disease status poststents, asthma, hypothyroidism, CKD stage V not on outpatient dialysis was transferred from [facility] on March 24, 2020 with a concern for sepsis-like features and PICC line infection. Patient was accepted by my colleague during the day, history was obtained from day team checkout, review of medical records from [facility] and by talking to the patient. Patient presented to the [facility] on March 23, 2022 with a chief concern of fever, nausea/vomiting, chills that started in the morning of admission. According to the patient, staff at [facility] not able to flush left upper chest PICC line that was placed in January 2022. Patient also had failed left upper extremity fistula. Patient was supposed to have surgery for AV fistula on the right upper extremity few days ago but surgery got canceled because of her low potassium. Initial labs done at [facility] revealed lactate of 2.2, white count of 10,000, hemoglobin 9.3, BUN/creatinine of 45/3.58 with GFR of 13. Urinalysis done at [facility] did not show any evidence of UTI, 3 set of 5 senses opponents were negative, EKG on admission at [facility] revealed sinus tachycardia with QTC of 459 ms. Patient did receive IV fluids and broad-spectrum antibiotics including meropenem and vancomycin at [facility]. Repeat labs done on March 24, 2022 at [facility] showed improvement in lactate to 0.9,white count of 3400, hemoglobin 7.9 that is likely due to hemodilution, BUN/creatinine of 37/3.38. No documented vital signs on patient's chart at [facility] at the time of this dictation, basic labs, EKG and chest x-ray pending at the time of this dictation. Review of Systems Review of systems are negative except as mentioned in HPI. Physical Exam Vitals and Measurements No qualifying data available. General Appearance: Appears to be stable and in no acute distress Head: Atraumatic and normocephalic EENT: EOMI, PERRLA, no oropharyngeal erythema, no tonsillar exudates, no conjunctival injection. sclera anicteric. Neck: No thyromegaly, no cervical lymphadenopathy, trachea midline Cardiac: PICC line visible on left upper chest, did not show evidence of infection. Lungs: Good air entry bilaterally. No increased work for breathing. No wheezes, rhonchi, or rales. Abdomen: Soft, nontender, nondistended. Normoactive bowel sounds. No rebound or guarding. Negative Bang's sign. No hepatosplenomegaly. Musculoskeletal: Full range of motion upper and lower extremities. No CVA tenderness. Extremities: Bilateral upper extremities had extensive bruising. Neurological: No gross motor deficits Skin: Bilateral upper extremities had extensive bruising, bilateral lower extremities had venous stasis dermatitis changes. Psychiatric: Alert and oriented, well groomed, euthymic. cooperative Lab Results Basic labs pending Imaging Results and Diagnostics Chest x-ray pending EKG EKG pending Assessment/Plan Severe sepsis without septic shock: Patient presented with features of severe sepsis including lactic acidosis at [facility] on 2021. Likely source could be left upper chest PICC line infection Resolved by the time of my evaluation Patient did receive IV fluids and broad-spectrum antibiotics of meropenem and vancomycin at [facility] as patient is allergic to penicillin. Ordered monitor normal sign bolus for the patient at home at [facility], we will be careful with IV fluid resuscitation as to avoid volume overload as patient has CKD stage V Blood and urine cultures ordered Lactic acid level pending Patient started on broad-spectrum antibiotics of IV meropenem and vancomycin. Infectious disease has been consulted Infectious disease to decide whether to remove PICC line CKD stage V: Patient has not yet been started on outpatient dialysis treatment, patient stated that she has had [address] [facility] few months ago No need for urgent dialysis according to labs done at [facility] on the day of admission Nephrology has been consulted Patient still making urine Coronary artery disease: Resume home medication of aspirin, Plavix, statin and ranolazine. Asthma: Resume home medication of montelukast Albuterol as needed for shortness of breath/wheezing Hypothyroidism: Resume home medication levothyroxine Hypertension: Hold home antihypertensives for now as patient had features of sepsis on presentation to [facility] on March 23 Day team can consider resuming antihypertensives as appropriate GERD: Patient started on oral pantoprazole 40 mg daily DVT prophylaxis: Bilateral SCDs Heparin 5000 units subcutaneous every 8 hours for DVT prophylaxis Medication reconciliation was not done at the time of this dictation as medication history was not completed and home medications were not verified by pharmacy. Note was written using myThings pharmacy customer care specialist software. Some of the meaning of the words and sentences might have changed during pharmacy customer care specialist, if there was ever some confusion about the meaning of some sentences, please do not hesitate to contact me. Problem List/Past Medical History Ongoing Aftercare following surgery ANDRIY (acute kidney injury) Anemia Angina Arm skin lesion, right Arthritis Asthma At risk for falls B12 deficiency Back pain Callaway's esophagus CAD (coronary artery disease) Chronic constipation Diverticulosis Draining postoperative wound Elevated ferritin Empty sella GERD (gastroesophageal reflux disease) Glasses H/O adrenal insufficiency Has Numbness Head injury History of left heart catheterization Hypercalcemia Hypercholesterolemia Hypertension Hypokalemia Hypothyroidism Laceration of face Lumbar herniated disc MRSA (methicillin resistant Staphylococcus aureus) Multiple wounds of skin MVP (mitral valve prolapse) Myalgia Osteoporosis Peripheral edema Peripheral vascular disease PTCA - Percutaneous transluminal coronary angioplasty Renal failure Rheumatoid arthritis Seizure disorder Skin lesion SOBOE (shortness of breath on exertion) Spinal stenosis Status post arterial stent Unsteady gait Vitamin D deficiency Weight gain Wound of back Historical Anemia Colon polyps HTN (hypertension) NV (myocardial infarction) Pneumonia Procedure/Surgical History Echocardiogram: 04/24/21 Lumbar: 10/2020 Echocardiogram: 03/15/20 Ankle brachial pressure index: 01/24/20 Diagnostic colonoscopy: 05/11/18 Echocardiogram: 02/14/18 Echocardiogram: 03/08/17 BRANDO - Arterial pressure index: 11/21/15 Cardiac catheterization: 2014 Bunionectomy: 08/31/14 Cardiac catheterization: 2013 Foot: 06/02/13 MUGA scan: 08/02/12 Fusion of lumbar spine: 08/05/10 Carpal tunnel release: 1994 Hysterectomy: 1978 Discectomy Coronary artery stent History of hemiarthroplasty of right hip Arthroplasty of right shoulder Esophagogastroduodenoscopy Lumpectomy of breast Medications Home Medications (21) Active albuterol 2.5 mg/3 mL (0.083%) inhalation solution 2.5 mg = 3 mL, PRN, Inhalation, q6h amLODIPine 2.5 mg oral tablet 2.5 mg = 1 tab(s), Oral, qDay aspirin 81 mg oral delayed release tablet 81 mg = 1 tab(s), Oral, qDay cyanocobalamin 1000 mcg/mL injectable solution 1,000 mcg = 1 mL, Intramuscular, month furosemide 40 mg oral tablet 40 mg = 1 tab(s), Oral, qDay hydrOXYzine hydrochloride 25 mg oral tablet See Instructions levETIRAcetam 500 mg oral tablet 500 mg = 1 tab(s), Oral, BID levothyroxine 50 mcg (0.05 mg) oral tablet 50 mcg = 1 tab(s), Oral, qDay metOLazone 2.5 mg oral tablet 2.5 mg = 1 tab(s), Oral, Daily metoprolol succinate 25 mg oral TABLET extended release 12.5 mg = 0.5 tab(s), Oral, qDay MiraLax oral powder for reconstitution 17 gram(s), PRN, Oral, Daily Nitrostat 0.4 mg sublingual tablet 0.4 mg = 1 tab(s), PRN, Sublingual, q5min omeprazole 40 mg oral delayed release capsule 40 mg = 1 cap(s), Oral, qDay Plavix 75 mg oral tablet 75 mg = 1 tab(s), Oral, qDay Potassium Chloride (Thv-Lfov-Llq 10) 10 mEq oral tablet, extended release 10 mEq = 1 tab(s), Oral, qDay Ranexa 500 mg oral tablet, extended release 500 mg = 1 tab(s), Oral, BID rosuvastatin 20 mg oral tablet 20 mg = 1 tab(s), Oral, qDay Singulair 10 mg oral tablet 10 mg = 1 tab(s), Oral, qPM temazepam 30 mg oral capsule 30 mg = 1 cap(s), PRN, Oral, qHS tiZANidine 4 mg oral tablet 4 mg = 1 tab(s), Oral, q8h Vitamin D3 5,000 Int unit, Oral, qDay Allergies Macrodantin (HIVES) Welchol (Unsure) Zaroxolyn (Unsure) colesevelam (Unknown) metOLazone (Unknown) nitrofurantoin (Unknown) pravastatin (liver) simvastatin (Liver) traMADol (GI upset) Social History Smoking Status - 06/05/2017 Never smoker Alcohol - Denies Alcohol Use, 06/05/2017 Use: Never., 03/03/2019 Home/Environment Domestic Concerns: None. Living situation: Home/Independent. Primary Chip Tester: Self. Current HomeTreatments Nebulizer treatments. Professional Skilled Services or Special Community Resources [facility]. Spouse Name: Fausto. Marital Status: ., 02/21/2021 Nutrition/Health Type of diet: Regular. Appetite Good. Eating Difficulties None. Enteral Feedings No. TPN Feedings No. Skin Breakdown No. Caffeine intake amount: 1 serving of tea/day., 11/07/2020 Substance Abuse - Denies Substance Abuse, 06/05/2017 Use: Never., 03/03/2019 Tobacco Nicotine Use: Former smoker, quit more than 30 days ago. Type: Cigarettes. Number of years: 11. Stopped at age: 48 Years., 02/21/2021 Family History Asthma: Negative: Mother, Father, Sister, Brother, Daughter and Son. Cancer: Mother, Father and Son.Negative: Sister and Brother. Congestive cardiac failure: Father. Coronary artery disease: Mother. Diabetes: Son. Diabetes mellitus: Brother.Negative: Mother, Father, Sister, Daughter and Son. HIV: Negative: Mother, Father, Sister, Brother, Daughter and Son. HTN - Hypertension: Father.Negative: Mother, Sister, Brother, Daughter and Son. Heart disease: Father.Negative: Mother, Sister, Brother, Daughter and Son. Hepatitis: Negative: Mother, Father, Sister, Brother, Daughter and Son. Hyperchloremia: Father.Negative: Mother, Sister, Brother, Daughter and Son. NV - myocardial infarction: Mother (Dx at 50). Mental illness: Negative: Mother, Father, Sister, Brother, Daughter and Son. Seizure: Negative: Mother, Father, Sister, Brother, Daughter and Son. Stroke: Negative: Mother, Father, Sister, Brother, Daughter and Son. TB - Tuberculosis: Negative: Mother, Father, Sister, Brother, Daughter and Son. Immunizations pneumococcal 13-valent conjugate vaccine: 0 unknown unit (03/04/20) tetanus-diphtheria toxoids: 0 unknown unit (03/07/11) tetanus/diphth/pertuss (Tdap) adult/adol: 0.5 unknown unit (01/19/22) zoster vaccine live: 0 unknown unit (03/04/20) zoster vaccine, inactivated: 0 unknown unit (06/28/20) Code Status Code Status - Ordered -- 03/24/22 22:45:00 EDT, Full Code, Constant Order Digitally Signed by BRANDY LESLIE MD on 03/24/2022 11:11 PM [id number] History and physical note Date of Service March 24, 2022 Chief Complaint Fever, nausea/vomiting and chills. History of Present Illness A 71 years old female with past medical history significant for coronary artery disease status poststents, asthma, hypothyroidism, CKD stage V not on outpatient dialysis was transferred from [facility] on March 24, 2020 with a concern for sepsis-like features and PICC line infection. Patient was accepted by my colleague during the day, history was obtained from day team checkout, review of medical records from [facility] and by talking to the patient. Patient presented to the [facility] on March 23, 2022 with a chief concern of fever, nausea/vomiting, chills that started in the morning of admission. According to the patient, staff at [facility] not able to flush left upper chest PICC line that was placed in January 2022. Patient also had failed left upper extremity fistula. Patient was supposed to have surgery for AV fistula on the right upper extremity few days ago but surgery got canceled because of her low potassium. Initial labs done at [facility] revealed lactate of 2.2, white count of 10,000, hemoglobin 9.3, BUN/creatinine of 45/3.58 with GFR of 13. Urinalysis done at [facility] did not show any evidence of UTI, 3 set of 5 senses opponents were negative, EKG on admission at [facility] revealed sinus tachycardia with QTC of 459 ms. Patient did receive IV fluids and broad-spectrum antibiotics including meropenem and vancomycin at [facility]. Repeat labs done on March 24, 2022 at [facility] showed improvement in lactate to 0.9,white count of 3400, hemoglobin 7.9 that is likely due to hemodilution, BUN/creatinine of 37/3.38. No documented vital signs on patient's chart at [facility] at the time of this dictation, basic labs, EKG and chest x-ray pending at the time of this dictation. Review of Systems Review of systems are negative except as mentioned in HPI. Physical Exam Vitals and Measurements No qualifying data available. General Appearance: Appears to be stable and in no acute distress Head: Atraumatic and normocephalic EENT: EOMI, PERRLA, no oropharyngeal erythema, no tonsillar exudates, no conjunctival injection. sclera anicteric. Neck: No thyromegaly, no cervical lymphadenopathy, trachea midline Cardiac: PICC line visible on left upper chest, did not show evidence of infection. Lungs: Good air entry bilaterally. No increased work for breathing. No wheezes, rhonchi, or rales. Abdomen: Soft, nontender, nondistended. Normoactive bowel sounds. No rebound or guarding. Negative Bang's sign. No hepatosplenomegaly. Musculoskeletal: Full range of motion upper and lower extremities. No CVA tenderness. Extremities: Bilateral upper extremities had extensive bruising. Neurological: No gross motor deficits Skin: Bilateral upper extremities had extensive bruising, bilateral lower extremities had venous stasis dermatitis changes. Psychiatric: Alert and oriented, well groomed, euthymic. cooperative Lab Results Basic labs pending Imaging Results and Diagnostics Chest x-ray pending EKG EKG pending Assessment/Plan Severe sepsis without septic shock: Patient presented with features of severe sepsis including lactic acidosis at [facility] on 2021. Likely source could be left upper chest PICC line infection Resolved by the time of my evaluation Patient did receive IV fluids and broad-spectrum antibiotics of meropenem and vancomycin at [facility] as patient is allergic to penicillin. Ordered monitor normal sign bolus for the patient at home at [facility], we will be careful with IV fluid resuscitation as to avoid volume overload as patient has CKD stage V Blood and urine cultures ordered Lactic acid level pending Patient started on broad-spectrum antibiotics of IV meropenem and vancomycin. Infectious disease has been consulted Infectious disease to decide whether to remove PICC line CKD stage V: Patient has not yet been started on outpatient dialysis treatment, patient stated that she has had [address] [facility] few months ago No need for urgent dialysis according to labs done at [facility] on the day of admission Nephrology has been consulted Patient still making urine Coronary artery disease: Resume home medication of aspirin, Plavix, statin and ranolazine. Asthma: Resume home medication of montelukast Albuterol as needed for shortness of breath/wheezing Hypothyroidism: Resume home medication levothyroxine Hypertension: Hold home antihypertensives for now as patient had features of sepsis on presentation to [facility] on March 23 Day team can consider resuming antihypertensives as appropriate GERD: Patient started on oral pantoprazole 40 mg daily DVT prophylaxis: Bilateral SCDs Heparin 5000 units subcutaneous every 8 hours for DVT prophylaxis Medication reconciliation was not done at the time of this dictation as medication history was not completed and home medications were not verified by pharmacy. Note was written using myThings pharmacy customer care specialist software. Some of the meaning of the words and sentences might have changed during pharmacy customer care specialist, if there was ever some confusion about the meaning of some sentences, please do not hesitate to contact me. Problem List/Past Medical History Ongoing Aftercare following surgery ANDRIY (acute kidney injury) Anemia Angina Arm skin lesion, right Arthritis Asthma At risk for falls B12 deficiency Back pain Callaway's esophagus CAD (coronary artery disease) Chronic constipation Diverticulosis Draining postoperative wound Elevated ferritin Empty sella GERD (gastroesophageal reflux disease) Glasses H/O adrenal insufficiency Has Numbness Head injury History of left heart catheterization Hypercalcemia Hypercholesterolemia Hypertension Hypokalemia Hypothyroidism Laceration of face Lumbar herniated disc MRSA (methicillin resistant Staphylococcus aureus) Multiple wounds of skin MVP (mitral valve prolapse) Myalgia Osteoporosis Peripheral edema Peripheral vascular disease PTCA - Percutaneous transluminal coronary angioplasty Renal failure Rheumatoid arthritis Seizure disorder Skin lesion SOBOE (shortness of breath on exertion) Spinal stenosis Status post arterial stent Unsteady gait Vitamin D deficiency Weight gain Wound of back Historical Anemia Colon polyps HTN (hypertension) NV (myocardial infarction) Pneumonia Procedure/Surgical History Echocardiogram: 04/24/21 Lumbar: 10/2020 Echocardiogram: 03/15/20 Ankle brachial pressure index: 01/24/20 Diagnostic colonoscopy: 05/11/18 Echocardiogram: 02/14/18 Echocardiogram: 03/08/17 BRANDO - Arterial pressure index: 11/21/15 Cardiac catheterization: 2014 Bunionectomy: 08/31/14 Cardiac catheterization: 2013 Foot: 06/02/13 MUGA scan: 08/02/12 Fusion of lumbar spine: 08/05/10 Carpal tunnel release: 1994 Hysterectomy: 1978 Discectomy Coronary artery stent History of hemiarthroplasty of right hip Arthroplasty of right shoulder Esophagogastroduodenoscopy Lumpectomy of breast Medications Home Medications (21) Active albuterol 2.5 mg/3 mL (0.083%) inhalation solution 2.5 mg = 3 mL, PRN, Inhalation, q6h amLODIPine 2.5 mg oral tablet 2.5 mg = 1 tab(s), Oral, qDay aspirin 81 mg oral delayed release tablet 81 mg = 1 tab(s), Oral, qDay cyanocobalamin 1000 mcg/mL injectable solution 1,000 mcg = 1 mL, Intramuscular, month furosemide 40 mg oral tablet 40 mg = 1 tab(s), Oral, qDay hydrOXYzine hydrochloride 25 mg oral tablet See Instructions levETIRAcetam 500 mg oral tablet 500 mg = 1 tab(s), Oral, BID levothyroxine 50 mcg (0.05 mg) oral tablet 50 mcg = 1 tab(s), Oral, qDay metOLazone 2.5 mg oral tablet 2.5 mg = 1 tab(s), Oral, Daily metoprolol succinate 25 mg oral TABLET extended release 12.5 mg = 0.5 tab(s), Oral, qDay MiraLax oral powder for reconstitution 17 gram(s), PRN, Oral, Daily Nitrostat 0.4 mg sublingual tablet 0.4 mg = 1 tab(s), PRN, Sublingual, q5min omeprazole 40 mg oral delayed release capsule 40 mg = 1 cap(s), Oral, qDay Plavix 75 mg oral tablet 75 mg = 1 tab(s), Oral, qDay Potassium Chloride (Hkd-Voop-Wzs 10) 10 mEq oral tablet, extended release 10 mEq = 1 tab(s), Oral, qDay Ranexa 500 mg oral tablet, extended release 500 mg = 1 tab(s), Oral, BID rosuvastatin 20 mg oral tablet 20 mg = 1 tab(s), Oral, qDay Singulair 10 mg oral tablet 10 mg = 1 tab(s), Oral, qPM temazepam 30 mg oral capsule 30 mg = 1 cap(s), PRN, Oral, qHS tiZANidine 4 mg oral tablet 4 mg = 1 tab(s), Oral, q8h Vitamin D3 5,000 Int unit, Oral, qDay Allergies Macrodantin (HIVES) Welchol (Unsure) Zaroxolyn (Unsure) colesevelam (Unknown) metOLazone (Unknown) nitrofurantoin (Unknown) pravastatin (liver) simvastatin (Liver) traMADol (GI upset) Social History Smoking Status - 06/05/2017 Never smoker Alcohol - Denies Alcohol Use, 06/05/2017 Use: Never., 03/03/2019 Home/Environment Domestic Concerns: None. Living situation: Home/Independent. Primary Chip Tester: Self. Current HomeTreatments Nebulizer treatments. Professional Skilled Services or Special Community Resources [facility]. Spouse Name: Fausto. Marital Status: ., 02/21/2021 Nutrition/Health Type of diet: Regular. Appetite Good. Eating Difficulties None. Enteral Feedings No. TPN Feedings No. Skin Breakdown No. Caffeine intake amount: 1 serving of tea/day., 11/07/2020 Substance Abuse - Denies Substance Abuse, 06/05/2017 Use: Never., 03/03/2019 Tobacco Nicotine Use: Former smoker, quit more than 30 days ago. Type: Cigarettes. Number of years: 11. Stopped at age: 48 Years., 02/21/2021 Family History Asthma: Negative: Mother, Father, Sister, Brother, Daughter and Son. Cancer: Mother, Father and Son.Negative: Sister and Brother. Congestive cardiac failure: Father. Coronary artery disease: Mother. Diabetes: Son. Diabetes mellitus: Brother.Negative: Mother, Father, Sister, Daughter and Son. HIV: Negative: Mother, Father, Sister, Brother, Daughter and Son. HTN - Hypertension: Father.Negative: Mother, Sister, Brother, Daughter and Son. Heart disease: Father.Negative: Mother, Sister, Brother, Daughter and Son. Hepatitis: Negative: Mother, Father, Sister, Brother, Daughter and Son. Hyperchloremia: Father.Negative: Mother, Sister, Brother, Daughter and Son. NV - myocardial infarction: Mother (Dx at 50). Mental illness: Negative: Mother, Father, Sister, Brother, Daughter and Son. Seizure: Negative: Mother, Father, Sister, Brother, Daughter and Son. Stroke: Negative: Mother, Father, Sister, Brother, Daughter and Son. TB - Tuberculosis: Negative: Mother, Father, Sister, Brother, Daughter and Son. Immunizations pneumococcal 13-valent conjugate vaccine: 0 unknown unit (03/04/20) tetanus-diphtheria toxoids: 0 unknown unit (03/07/11) tetanus/diphth/pertuss (Tdap) adult/adol: 0.5 unknown unit (01/19/22) zoster vaccine live: 0 unknown unit (03/04/20) zoster vaccine, inactivated: 0 unknown unit (06/28/20) Code Status Code Status - Ordered -- 03/24/22 22:45:00 EDT, Full Code, Constant Order Digitally Signed by BRANDY LESLIE MD on 03/24/2022 11:11 PM [id number] Note ORIGINAL EXAMINATION: ONE XRAY VIEW OF THE CHEST 03/24/2022 11:19 pm COMPARISON: Chest radiograph on 01/24/2022. HISTORY: ORDERING SYSTEM PROVIDED HISTORY: Reason for Exam: SOB FINDINGS: Left IJ central line projects over the cavoatrial junction. Cardiomediastinal silhouette is stable. No focal lung consolidation, pleural effusion, pneumothorax, or vascular congestion. Linear opacities at the left lung base. Linear atelectasis in the right midlung. No acute osseous abnormality. Remote appearing left posterior 6th and 7th rib fractures. Cervical stabilization plate and screws. Postsurgical changes of the right shoulder partially visualized. IMPRESSION: Linear opacities at the left lung base suggest atelectasis or other airspace disease. Right midlung linear atelectasis. Interpreted by: John Rubalcava Preliminary Report By: Uziel Alvarado Electronically signed By John Rubalcava Dictated Date: 03/24/2022 11:38:21 PM Prelim Date: 03/24/2022 11:44:31 PM Sign Date: 03/24/2022 11:46:10 PM Ordering Provider: [facility]08-02-2022 Note ORIGINAL EXAMINATION: ONE XRAY VIEW OF THE CHEST 03/24/2022 11:19 pm COMPARISON: Chest radiograph on 01/24/2022. HISTORY: ORDERING SYSTEM PROVIDED HISTORY: Reason for Exam: SOB FINDINGS: Left IJ central line projects over the cavoatrial junction. Cardiomediastinal silhouette is stable. No focal lung consolidation, pleural effusion, pneumothorax, or vascular congestion. Linear opacities at the left lung base. Linear atelectasis in the right midlung. No acute osseous abnormality. Remote appearing left posterior 6th and 7th rib fractures. Cervical stabilization plate and screws. Postsurgical changes of the right shoulder partially visualized. IMPRESSION: Linear opacities at the left lung base suggest atelectasis or other airspace disease. Right midlung linear atelectasis. Interpreted by: John Rubalcava Preliminary Report By: Uziel Alvarado Electronically signed By John Rubalcava Dictated Date: 03/24/2022 11:38:21 PM Prelim Date: 03/24/2022 11:44:31 PM Sign Date: 03/24/2022 11:46:10 PM Ordering Provider: [facility]08-02-2022 History and physical note Date of Service March 24, 2022 Chief Complaint Fever, nausea/vomiting and chills. History of Present Illness A 71 years old female with past medical history significant for coronary artery disease status poststents, asthma, hypothyroidism, CKD stage V not on outpatient dialysis was transferred from [facility] on March 24, 2020 with a concern for sepsis-like features and PICC line infection. Patient was accepted by my colleague during the day, history was obtained from day team checkout, review of medical records from [facility] and by talking to the patient. Patient presented to the [facility] on March 23, 2022 with a chief concern of fever, nausea/vomiting, chills that started in the morning of admission. According to the patient, staff at [facility] not able to flush left upper chest PICC line that was placed in January 2022. Patient also had failed left upper extremity fistula. Patient was supposed to have surgery for AV fistula on the right upper extremity few days ago but surgery got canceled because of her low potassium. Initial labs done at [facility] revealed lactate of 2.2, white count of 10,000, hemoglobin 9.3, BUN/creatinine of 45/3.58 with GFR of 13. Urinalysis done at [facility] did not show any evidence of UTI, 3 set of 5 senses opponents were negative, EKG on admission at [facility] revealed sinus tachycardia with QTC of 459 ms. Patient did receive IV fluids and broad-spectrum antibiotics including meropenem and vancomycin at [facility]. Repeat labs done on March 24, 2022 at [facility] showed improvement in lactate to 0.9,white count of 3400, hemoglobin 7.9 that is likely due to hemodilution, BUN/creatinine of 37/3.38. No documented vital signs on patient's chart at [facility] at the time of this dictation, basic labs, EKG and chest x-ray pending at the time of this dictation. Review of Systems Review of systems are negative except as mentioned in HPI. Physical Exam Vitals and Measurements No qualifying data available. General Appearance: Appears to be stable and in no acute distress Head: Atraumatic and normocephalic EENT: EOMI, PERRLA, no oropharyngeal erythema, no tonsillar exudates, no conjunctival injection. sclera anicteric. Neck: No thyromegaly, no cervical lymphadenopathy, trachea midline Cardiac: PICC line visible on left upper chest, did not show evidence of infection. Lungs: Good air entry bilaterally. No increased work for breathing. No wheezes, rhonchi, or rales. Abdomen: Soft, nontender, nondistended. Normoactive bowel sounds. No rebound or guarding. Negative Bang's sign. No hepatosplenomegaly. Musculoskeletal: Full range of motion upper and lower extremities. No CVA tenderness. Extremities: Bilateral upper extremities had extensive bruising. Neurological: No gross motor deficits Skin: Bilateral upper extremities had extensive bruising, bilateral lower extremities had venous stasis dermatitis changes. Psychiatric: Alert and oriented, well groomed, euthymic. cooperative Lab Results Basic labs pending Imaging Results and Diagnostics Chest x-ray pending EKG EKG pending Assessment/Plan Severe sepsis without septic shock: Patient presented with features of severe sepsis including lactic acidosis at [facility] on 2021. Likely source could be left upper chest PICC line infection Resolved by the time of my evaluation Patient did receive IV fluids and broad-spectrum antibiotics of meropenem and vancomycin at [facility] as patient is allergic to penicillin. Ordered monitor normal sign bolus for the patient at home at [facility], we will be careful with IV fluid resuscitation as to avoid volume overload as patient has CKD stage V Blood and urine cultures ordered Lactic acid level pending Patient started on broad-spectrum antibiotics of IV meropenem and vancomycin. Infectious disease has been consulted Infectious disease to decide whether to remove PICC line CKD stage V: Patient has not yet been started on outpatient dialysis treatment, patient stated that she has had [address] [facility] few months ago No need for urgent dialysis according to labs done at [facility] on the day of admission Nephrology has been consulted Patient still making urine Coronary artery disease: Resume home medication of aspirin, Plavix, statin and ranolazine. Asthma: Resume home medication of montelukast Albuterol as needed for shortness of breath/wheezing Hypothyroidism: Resume home medication levothyroxine Hypertension: Hold home antihypertensives for now as patient had features of sepsis on presentation to [facility] on March 23 Day team can consider resuming antihypertensives as appropriate GERD: Patient started on oral pantoprazole 40 mg daily DVT prophylaxis: Bilateral SCDs Heparin 5000 units subcutaneous every 8 hours for DVT prophylaxis Medication reconciliation was not done at the time of this dictation as medication history was not completed and home medications were not verified by pharmacy. Note was written using [employer]Things pharmacy customer care specialist software. Some of the meaning of the words and sentences might have changed during pharmacy customer care specialist, if there was ever some confusion about the meaning of some sentences, please do not hesitate to contact me. Problem List/Past Medical History Ongoing Aftercare following surgery ANDRIY (acute kidney injury) Anemia Angina Arm skin lesion, right Arthritis Asthma At risk for falls B12 deficiency Back pain Callaway's esophagus CAD (coronary artery disease) Chronic constipation Diverticulosis Draining postoperative wound Elevated ferritin Empty sella GERD (gastroesophageal reflux disease) Glasses H/O adrenal insufficiency Has Numbness Head injury History of left heart catheterization Hypercalcemia Hypercholesterolemia Hypertension Hypokalemia Hypothyroidism Laceration of face Lumbar herniated disc MRSA (methicillin resistant Staphylococcus aureus) Multiple wounds of skin MVP (mitral valve prolapse) Myalgia Osteoporosis Peripheral edema Peripheral vascular disease PTCA - Percutaneous transluminal coronary angioplasty Renal failure Rheumatoid arthritis Seizure disorder Skin lesion SOBOE (shortness of breath on exertion) Spinal stenosis Status post arterial stent Unsteady gait Vitamin D deficiency Weight gain Wound of back Historical Anemia Colon polyps HTN (hypertension) NV (myocardial infarction) Pneumonia Procedure/Surgical History Echocardiogram: 04/24/21 Lumbar: 10/2020 Echocardiogram: 03/15/20 Ankle brachial pressure index: 01/24/20 Diagnostic colonoscopy: 05/11/18 Echocardiogram: 02/14/18 Echocardiogram: 03/08/17 BRANDO - Arterial pressure index: 11/21/15 Cardiac catheterization: 2014 Bunionectomy: 08/31/14 Cardiac catheterization: 2013 Foot: 06/02/13 MUGA scan: 08/02/12 Fusion of lumbar spine: 08/05/10 Carpal tunnel release: 1994 Hysterectomy: 1979 Discectomy Coronary artery stent History of hemiarthroplasty of right hip Arthroplasty of right shoulder Esophagogastroduodenoscopy Lumpectomy of breast Medications Home Medications (21) Active albuterol 2.5 mg/3 mL (0.083%) inhalation solution 2.5 mg = 3 mL, PRN, Inhalation, q6h amLODIPine 2.5 mg oral tablet 2.5 mg = 1 tab(s), Oral, qDay aspirin 81 mg oral delayed release tablet 81 mg = 1 tab(s), Oral, qDay cyanocobalamin 1000 mcg/mL injectable solution 1,000 mcg = 1 mL, Intramuscular, month furosemide 40 mg oral tablet 40 mg = 1 tab(s), Oral, qDay hydrOXYzine hydrochloride 25 mg oral tablet See Instructions levETIRAcetam 500 mg oral tablet 500 mg = 1 tab(s), Oral, BID levothyroxine 50 mcg (0.05 mg) oral tablet 50 mcg = 1 tab(s), Oral, qDay metOLazone 2.5 mg oral tablet 2.5 mg = 1 tab(s), Oral, Daily metoprolol succinate 25 mg oral TABLET extended release 12.5 mg = 0.5 tab(s), Oral, qDay MiraLax oral powder for reconstitution 17 gram(s), PRN, Oral, Daily Nitrostat 0.4 mg sublingual tablet 0.4 mg = 1 tab(s), PRN, Sublingual, q5min omeprazole 40 mg oral delayed release capsule 40 mg = 1 cap(s), Oral, qDay Plavix 75 mg oral tablet 75 mg = 1 tab(s), Oral, qDay Potassium Chloride (Srw-Mlek-Rjn 10) 10 mEq oral tablet, extended release 10 mEq = 1 tab(s), Oral, qDay Ranexa 500 mg oral tablet, extended release 500 mg = 1 tab(s), Oral, BID rosuvastatin 20 mg oral tablet 20 mg = 1 tab(s), Oral, qDay Singulair 10 mg oral tablet 10 mg = 1 tab(s), Oral, qPM temazepam 30 mg oral capsule 30 mg = 1 cap(s), PRN, Oral, qHS tiZANidine 4 mg oral tablet 4 mg = 1 tab(s), Oral, q8h Vitamin D3 5,000 Int unit, Oral, qDay Allergies Macrodantin (HIVES) Welchol (Unsure) Zaroxolyn (Unsure) colesevelam (Unknown) metOLazone (Unknown) nitrofurantoin (Unknown) pravastatin (liver) simvastatin (Liver) traMADol (GI upset) Social History Smoking Status - 06/05/2017 Never smoker Alcohol - Denies Alcohol Use, 06/05/2017 Use: Never., 03/03/2019 Home/Environment Domestic Concerns: None. Living situation: Home/Independent. Primary Chip Tester: Self. Current HomeTreatments Nebulizer treatments. Professional Skilled Services or Special Community Resources [facility]. Spouse Name: Fausto. Marital Status: ., 02/21/2021 Nutrition/Health Type of diet: Regular. Appetite Good. Eating Difficulties None. Enteral Feedings No. TPN Feedings No. Skin Breakdown No. Caffeine intake amount: 1 serving of tea/day., 11/07/2020 Substance Abuse - Denies Substance Abuse, 06/05/2017 Use: Never., 03/03/2019 Tobacco Nicotine Use: Former smoker, quit more than 30 days ago. Type: Cigarettes. Number of years: 11. Stopped at age: 48 Years., 02/21/2021 Family History Asthma: Negative: Mother, Father, Sister, Brother, Daughter and Son. Cancer: Mother, Father and Son.Negative: Sister and Brother. Congestive cardiac failure: Father. Coronary artery disease: Mother. Diabetes: Son. Diabetes mellitus: Brother.Negative: Mother, Father, Sister, Daughter and Son. HIV: Negative: Mother, Father, Sister, Brother, Daughter and Son. HTN - Hypertension: Father.Negative: Mother, Sister, Brother, Daughter and Son. Heart disease: Father.Negative: Mother, Sister, Brother, Daughter and Son. Hepatitis: Negative: Mother, Father, Sister, Brother, Daughter and Son. Hyperchloremia: Father.Negative: Mother, Sister, Brother, Daughter and Son. NV - myocardial infarction: Mother (Dx at 50). Mental illness: Negative: Mother, Father, Sister, Brother, Daughter and Son. Seizure: Negative: Mother, Father, Sister, Brother, Daughter and Son. Stroke: Negative: Mother, Father, Sister, Brother, Daughter and Son. TB - Tuberculosis: Negative: Mother, Father, Sister, Brother, Daughter and Son. Immunizations pneumococcal 13-valent conjugate vaccine: 0 unknown unit (03/04/20) tetanus-diphtheria toxoids: 0 unknown unit (03/07/11) tetanus/diphth/pertuss (Tdap) adult/adol: 0.5 unknown unit (01/19/22) zoster vaccine live: 0 unknown unit (03/04/20) zoster vaccine, inactivated: 0 unknown unit (06/28/20) Code Status Code Status - Ordered -- 03/24/22 22:45:00 EDT, Full Code, Constant Order Digitally Signed by BRANDY LESLIE MD on 03/24/2022 11:11 PM [id number] Evaluation + Plan noteExtracted from: Title:History and Physical Author:BRANDY LESLIE MD Date:03/24/22 Severe sepsis without septic shock: Patient presented with features of severe sepsis including lactic acidosis at [facility] on March 23, 2022. Likely source could be left upper chest PICC line infection Resolved by the time of my evaluation Patient did receive IV fluids and broad-spectrum antibiotics of meropenem and vancomycin at [facility] as patient is allergic to penicillin. Ordered monitor normal sign bolus for the patient at home at [facility], we will be careful with IV fluid resuscitation as to avoid volume overload as patient has CKD stage V Blood and urine cultures ordered Lactic acid level pending Patient started on broad-spectrum antibiotics of IV meropenem and vancomycin. Infectious disease has been consulted Infectious disease to decide whether to remove PICC line CKD stage V: Patient has not yet been started on outpatient dialysis treatment, patient stated that she has had [address] [facility] few months ago No need for urgent dialysis according to labs done at [facility] on the day of admission Nephrology has been consulted Patient still making urine Coronary artery disease: Resume home medication of aspirin, Plavix, statin and ranolazine. Asthma: Resume home medication of montelukast Albuterol as needed for shortness of breath/wheezing Hypothyroidism: Resume home medication levothyroxine Hypertension: Hold home antihypertensives for now as patient had features of sepsis on presentation to [facility] on March 23 Day team can consider resuming antihypertensives as appropriate GERD: Patient started on oral pantoprazole 40 mg daily DVT prophylaxis: Bilateral SCDs Heparin 5000 units subcutaneous every 8 hours for DVT prophylaxis Medication reconciliation was not done at the time of this dictation as medication history was not completed and home medications were not verified by pharmacy. Note was written using my[employer] pharmacy customer care specialist software. Some of the meaning of the words and sentences might have changed during pharmacy customer care specialist, if there was ever some confusion about the meaning of some sentences, please do not hesitate to contact me. Addendum by BRANDY LESLIE MD on March 25, 2022 00:17:10 EDT Vital signs at [facility] showed temperature of 39.3 C, tachycardia and tachypnea. CPK 492, lactic acid of 1.4 and high-sensitivity troponin of 35.[address] [facility]. Chest x-ray done at [facility] was reported as linear opacities of the left lung base suggesting atelectasis and right midlung linear atelectasis. Ordered Tylenol as needed for fever, broad-spectrum antibiotics including meropenem and vancomycin has already been ordered along with IV fluids. On March 25, 2022 at 12:15 AM, patient was noted to be septic. 30 mill per KG IV Normal Saline bolus was not ordered due to concern for volume overload as patient does have CKD stage V and also patient does not meet the criteria for severe sepsis. Ordered sepsis alert team activated. Addendum by BRANDY LESLIE MD on March 25, 2022 02:02:13 EDT Hypophosphatemia: Phosphorus of 2.1 on admission Replacing Potassium level of 3.6 on admission but specimen was slightly hemolyzed so actual potassium level is likely in the hypokalemia range. I ordered 20 mmol IV potassium phosphate for the patient. Future Scheduled Tests Laboratory* Free T4 05/28/21 Radiology* XR Chest 2 Views (PA & Lateral) 07/31/21 [facility] 07-06-2022 Miscellaneous Notes* Telephone Encounter - Angelita Lamas MD - 02/25/2022 4:33 PM EDT Already referring her back to see me for anemia of chronic disease? Please asked PCP or smoking tobacco packing machine hand. Angelita Lamas MD * Telephone Encounter - Leah Jordan LPN - 02/25/2022 4:19 PM EDT Last OV 04/10/2021. Patient states home health matt labs today and her Hgb is 6.9. Patient is unsure of who ordered thelab work. I did advise her to contact her home health nurse to inquire who ordered the lab work as they are responsible for the results. Patient states she has been experiencing fatigue, SOB and lightheadedness. Patient has no follow up here and was to follow up with PCP and nephrology. Leah Jordan LPN * Telephone Encounter - Paulette Brown - 02/25/2022 3:46 PM EDT Pt called to report hemoglobin is 6.9. Pt said that she was told by Dr. Lamas to call if she had low numbers. Please advise. [facility]aulette [facility] Discharge instructions Patient Education 02/02/2022 17:45:49 Radiology- PICC Line(CUSTOM) [place] PICC Line Discharge Instructions Interventional Radiology [facility] [address] [place] [address] A PICC (peripherally inserted central catheter) is a remote computer terminal operator IV access device. A catheter is inserted in a vein with the catheter tip ending in a large vein close to the heart. It will allow for frequent intravenous medication administration or blood draws without starting an IV each time. Pleasefollow the instructions below to reduce the chance of experiencing complications. Diet: Resume your normal diet as tolerated. Activity: No swimming, tub bathing, or hot tubs while the PICC line is in place. You may shower as long as the dressing completely covered and protected from getting wet. Wrap the arm around the PICC line with callie wrap and tape securely on both ends. There are also sleeves soldat some drug stores that can be used to protect the PICC line while showering. The arm with the PICC line may be used as you normally would. Normal use, in fact increases blood circulation in that arm. This aids in carrying medications to the heart for systemic circulation. However, strenuous work or repetitive motion should all be avoided (for example: no working out, lifting weights, golfing, etc.). Make sure not to pull on the catheters. Care should be taken to secure the catheters to the arm to prevent them from getting caught or pulled. Dressing: A dry, secure, clean, and intact dressing is essential to prevent catheter migration and infection. The dressing should be changed weekly (or sooner if loose, soiled or wet) by an individual who has been trained in proper dressing changes. Please read the accompanying handout FAQs about Catheter-Associated Bloodstream Infections for moreimportant information on preventing PICC line infections. The PICC line will need to be flushed every week and after each use. Please speak to your primary physician to coordinate weekly flushes. Pain Control: [id number] pain medication should be used for pain or discomfort. Please check with the physician who sent you for this procedure for their specific recommendations. If you were sedated for this procedure: Avoid alcoholic beverages for 24 hours after your procedure. Do not drive or operate heavy machinery for 24 hours after your procedure. Do not make any legal decisions for 24 hours after your procedure. Medication: Please resume on . When to seek medial care: Foul odor, pus drainage, or redness, at puncture site. Excessive bleeding from puncture site. Fever greater than 101 degrees and chills. Pain or swelling in the area the PICC line were placed. If you experience any of these issues during the first 24 hours, please follow the instruction below: 8:00 am- 5:00 pm call [phone] After 5:00 pm call [phone] After 24 hours, contact the physician who ordered this procedure for you. Special Instructions: 02/02/2022 17:45:30 How to Change Your Wound Dressing How to Change Your Wound Dressing A dressing is a material that is placed in and over a wound to help the wound heal. It protects thewound from bacteria, which could cause the wound to become infected. A dressing also protects the wound from further injury and keeps it from becoming too dry or too wet. There are several types of wound dressings. Some examples are: Bandages. Gauze pads. Foam pads. Antimicrobial dressings. These dressings prevent or treat infection and may contain an antiseptic such as silver or iodine. Calcium alginate. These are general guidelines. Follow your health care provider's instructions about what dressing supplies to use and how to change your wound dressing. What are the risks? It is usually safe to use and change a dressing. The most common problem is skin irritation or a rash from the adhesive tape that is used with the dressing. However, more serious problems can develop, such as: Bleeding. Infection. Supplies needed: Set up a clean area for wound care. You will need: A disposable garbage bag that is open and ready to use. Hand data support analyst. Recommended cleaning solution as told by your health care provider, such as: ?Germ-free (sterile) water. ?Sterile salt water (saline). ?Wound cleanser. New wound dressing material. Make sure to open the dressing package so the dressing remains on the inside of the package. You may also need the following in your clean area: A box of vinyl gloves. Adhesive tape. Adhesive remover. Skin protectant. This may be a wipe, film, or spray. Clean or sterile scissors. A cotton-tipped applicator. How to change your dressing How often you change your dressing will depend on your wound. Change the dressing as often as told by your health care provider. Your health care provider may change your dressing, or a family member, friend, or caregiver may be shown how to change the dressing. It is important to: Wash your hands before and after each dressing change. If soap and water are not available, use hand data support analyst. Wear gloves and protective clothing while changing a dressing. This may include eye protection. Never let anyone change your dressing if he or she has an infection, a skin condition, or a skin wound or cut of any size. Preparing to change your dressing Take a shower before you do the first dressing change of the day. If your health care provider doesnot want your wound to get wet and your dressing is not waterproof, you may need to apply plastic leak-proof sealing wrap over your dressing for protection. If needed, take pain medicine 30 minutes before the dressing change as told by your health care provider. Removing your old dressing Wash your hands with soap and water. Dry your hands with a clean towel. If soap and water are not available, use hand data support analyst. Go to the clean area that you have set up with all the supplies you need. If you are using gloves, put the gloves on before you remove the dressing. Gently remove any adhesive or tape by pulling it off in the direction of your hair growth. Only touch the outside edges of the dressing. ?If you are told to use an adhesive remover to loosen the edges of the dressing, make sure to avoidthe wound area. Take off the dressing. If the dressing sticks to your skin, use the recommended cleaning solution to wet the dressing. This helps it come off more easily. Remove any gauze or packing in your wound. Throw the old dressing supplies into the garbage bag. Remove each glove by grabbing the cuff with the opposite hand and turning the glove inside out. Place the gloves in the trash immediately. Wash your hands with soap and water. Dry your hands with a clean towel. If soap and water are not available, use hand data support analyst. Cleaning your wound Follow instructions from your health care provider about how to clean your wound. This may include using the recommended cleaning solution. ?You may need to use sterile water to clean your wound if you are applying a dressing that has silver in it. Do not use ruxv-vib-ciwldjn medicated or antiseptic creams, sprays, liquids, or dressings unless told to do so by your health care provider. Use a clean gauze pad to clean the area thoroughly with the recommended cleaning solution. Throw the gauze pad into the garbage bag. Wash your hands with soap and water. Dry your hands with a clean towel. If soap and water are not available, use hand data support analyst. Applying the wound dressing If your health care provider recommended a skin protectant, apply it to the skin around the wound. Gently pack, if needed, and cover the wound with the recommended dressing. Make sure to touch only the outside edges of the dressing. Do not touch the inside of the dressing. Secure the dressing so all sides stay in place. You may do this with medical adhesive, roll gauze, or tape. If you use tape, do not wrap the tape all the way around your arm or leg. Take off your gloves. Put them into the garbage bag with the old dressing. Tie the bag shut and throw it away. Wash your hands with soap and water. Dry your hands with a clean towel. If soap and water are not available, use hand data support analyst. Follow these instructions at home: Wound care Check your wound every day for signs of infection, or as often as told by your health care provider. Check for: ?More redness, swelling, or pain. ?More fluid or blood. ?Warmth. ?Pus or a bad smell. General instructions Take akza-ctf-uyyxyeg and prescription medicines only as told by your health care provider. Ask your health care provider if the medicine prescribed to you: ?Requires you to avoid driving or using heavy machinery. ?Can cause constipation. You may need to take actions to prevent or treat constipation, such as: ?Drink enough fluid to keep your urine pale yellow. ?Take aiol-rdz-gcqokzt or prescription medicines. ?Eat foods that are high in fiber, such as beans, whole grains, and fresh fruits and vegetables. ?Limit foods that are high in fat and processed sugars, such as fried or sweet foods. Keep all follow-up visits as told by your health care provider. This is important. Contact a health care provider if: You have new pain. You develop irritation, a rash, or itching around the wound or dressing. Changing your dressing causes pain or a lot of bleeding. Get help right away if you have: Severe pain. Signs of infection, such as: ?More redness, swelling, or pain. ?More fluid or blood. ?Warmth. ?Pus or a bad smell. ?Red streaks leading from the wound. ?A fever. Summary A dressing is a material that is placed in and over a wound. A dressing helps your wound heal. Wash your hands before and after each dressing change. If soap and water are not available, use hand data support analyst. Follow your health care provider's instructions about what dressing supplies to use and how to change your wound dressing. Check your wound every day for signs of infection, or as often as told by your health care provider. Get help right away if you have severe pain or signs of infection. This information is not intended to replace advice given to you by your health care provider. Make sure you discuss any questions you have with your health care provider. Document Released: 09/16/2005 Document Revised: 04/06/2019 Document Reviewed: 04/06/2019 [employer] Patient Education 2020 [email or web address]. Follow Up Care 01/24/2022 04:42:38 With:Go to emergency room if symptoms worsen Address: When: Unknown With:NOEL RAMOS, Infectious Disease, Infectious Disease Group Address: [facility] [address] [place] [address]- Business (1) When: Unknown Comments:please follow up with infectious disease at discharge With:Please keep your scheduled follow up appointment with your vascular surgeon Address: When: Unknown With:MELISSA CURRIE Address: [address] [place] [address] and [facility] [place] [place] [address]- [phone] Business (1) When: Unknown Comments:please follow up within 1 week With:[facility] to follow, Will call to schedule first visit Address: [place], [place] [phone] When: Unknown Comments:Home Health Care RN/PT/OT With:[facility] has been arranged. They will be providing your home IV medications Please call [phone] with any questions Address: When: Unknown With:BELL MAHER MD Address: [address] [facility] [place] [address]- When: Unknown Comments:PLEASE CALL THIS OFFICE TO SCHEDULE A HOSPITAL FOLLOW UP APPOINTMENT. [facility] 06-04-2022 Evaluation + Plan noteExtracted from: Title:History and Physical Author:SHENA VASQUEZ MD Date:01/24/22 Acute on blood loss chronic anemia Severe hypokalemia Lactic Acidosis ANDRIY on CKD IV Concern for intra-abdominal infection Recent left upper extremity AV fistula History of: CKD 4, CAD, HTN, HLD, PVD, seizure disorder Patient will be admitted to the MICU for further management Acute on chronic anemia Patient is status post transfusion of 1 unit packed red blood cells We will trend H&H every 6 hourly and repeat transfusion as necessary Severe hypokalemia Patient did receive potassium supplementation at [facility] we will repeat BMP and replete as necessary Lactic acidosis Patient is status post 1 unit of packed red blood cells we will repeat lactic acid ANDRIY on CKD IV -We will consult nephrology as patient was planned to start hemodialysis shortly however her fistula is not yet ready for use Concern for abdominal infection Patient concerned about prolonged nausea over the past month as well as vomiting on 01/19/[address] did have a CT abdomen/pelvis in October 2021 that showed cholelithiasis, small hiatal hernia and moderate to large stool burden Panculture We will obtain x-ray abdomen and if pain/tenderness persists can consider noncontrast CT abdomen DVT prophylaxis Heparin subcu CODE STATUS: Full code Case discussed with pipeline inspector on-call. Please see attending addendum Addendum by LEON LAN MD on January 24, 2022 14:13:00 EDT The patient was seen and examined and discussed with housestaff Above history and physical was reviewed History present illness, past medical history, medications, social history, and review of systems were all obtained. Physical examination performed. 71-year-old female with history of chronic kidney disease stage IV and baseline creatinine of 2.7 who presents to the emergency room with nausea and fatigue worsening over 1 month. She was found to have worsening renal failure with creatinine 4.25, severe hypokalemia at 2.1, and shock. She was also found to be severely anemic with hemoglobin of 6 g/dL. The patient recently in October underwent first phase of placement of an AV fistula in the left upper extremity. On 01/22/2022, she had a second phase done. She has an open wound at the site with concern for infection. Other history includes coronary artery disease status post stent placement, peripheral arterial disease, seizures, and frequent falls. She has no history of COPD and she is not a diabetic. Impression: 1. Shock likely hypovolemic. Blood pressure remains on the low side. Bedside echocardiogram shows collapsible IVC and preserved LV and RV functions. No pericardial effusion. Windows poor. 2. CKD stage IV with progressive renal failure. Nonoliguric but with symptoms of uremia and weakness 3. Hypokalemia likely secondary to use of diuretics at home 4. Open wound at the site of recent fistula placement in left upper extremity. Foul-smelling. Being packed wet-to-dry. Rule out local infection. Leukocytosis present 5. Severe anemia likely secondary to chronic disease. No clear evidence of bleeding 6. History of CAD and peripheral arterial disease status post cardiac stents and bilateral iliac artery stents Plan: 1. Admitted to the medical intensive care unit 2. Fluid resuscitation and potassium replacement IV n.p.o. 3. May need pressors. Maintain MAP more than 65 mmHg 4. Seen by nephrology. To start hemodialysis today. We will place a try Alysis line 5. Meropenem and vancomycin pending cultures 6. Transfuse 2 units of packed red blood cells 7. GI and DVT prophylaxis Leon Lan MD [facility] Future Scheduled Tests Laboratory* Free T4 05/28/21 Radiology* XR Chest 2 Views (PA & Lateral) 07/31/21 * XR Forearm 2 Views Left 03/04/21 * XR Wrist Minimum 3 Views Left 03/04/21 [facility] 10-06-2021 Evaluation + Plan note Future Scheduled Tests Laboratory* Free T4 05/28/21 Radiology* XR Chest 2 Views (PA & Lateral) 07/31/21 * XR Forearm 2 Views Left 03/04/21 * XR Wrist Minimum 3 Views Left 03/04/21 [facility] 07-16-2021 NoteHNO ID: [id number] Author: Sameer Perez MD Service: ? Author Type: Physician Type: Progress Notes Filed: 03/07/2021 8:27 AM Note Text: NEUROSURGERY FOLLOW UP OFFICE NOTE Sameer Perez MD Date of visit: March 07, 2021 Patient Name: Ms.Andra Chika Shelton Date of : 1950 Current Age: [age] year old Sex: female MRN/E# [id number] Last Office Visit: 02/10/2021 Chief Complaint: Patient presents with: Established Patient SUBJECTIVE: Ms. Shelton presents to the office today for a routine follow up visit following removal of prior lumbar hardware d/t wound injections, with placement of wound vac and drain on 11/18/2020. She was last seen in the office on 01/17/2021 after placement of percutaneous ALEC drain placed by interventional radiology. She noted approximately 100cc of serosanguinous of drainage daily. She continued antibiotic treatment per infectious disease. She had her ALEC drain removed on 02/06/2021 and states that overall she continues to do well. She describes mainly low back pain especially with walking and standing. She also describes weakness and numbness in bilateral lower extremities, which is unchanged. She denies drainage or swelling around her incision or drain site. She presents today for evaluation and plan of care. Symptoms: low back pain with numbness and weakness in bilateral lower extremities PREVIOUS CONSERVATIVE TREATMENTS: IV antibiotics Percutaneous ALEC drain SURGERY:?lumbar prior?hardware removal d/t wound infection with placement of wound vac and drain?on 11/18/2020 ? Pre-Surgical Symptoms:?non healing lumbar wound, drainage PREVIOUS SURGERY: L2-S1 fusion per Dr. Twan Damian 2017 PAIN EVALUATION 03/07/2021 0753 Pain Level: 7 Pain Location: Back-Upper Description: Sharp;Aching Duration Units: Months Frequency: Intermittent Intervention/Comfort measure: Positioning PAST MEDICAL HISTORY Diagnosis Date - Abdominal pain, right upper quadrant - Acid reflux - Anemia associated with chronic renal failure 01/02/2020 - Asthma - Callaway's esophagus - CAD (coronary artery disease) - Constipation - Diverticulitis - Early satiety - Essential hypertension, benign - Fatigue - Heart disease - Hemorrhoids - Loss of weight - Mitral valve disorders(424.0) with prolapse, needs abx prophylaxis - Other and unspecified hyperlipidemia - PVD (peripheral vascular disease) (HCC) - Rheumatoid arthritis(714.0) - Seizure (HCC) - Wound dehiscence PAST SURGICAL HISTORY Procedure Laterality Date - APPENDECTOMY - BACK SURGERY HX 2009 lami and fusion L45 for spondylolisthesis - BACK SURGERY HX 10/2020 - CC PTCA STENT 2007, 2009 - COLONOS W/REM POLYP SNARE 09/05/2009 repeat in - EXCIS BREAST LESION rt - PAST SURGICAL HISTORY OF Left foot - PAST SURGICAL HISTORY OF Right shoulder - PAST SURGICAL HISTORY OF Right hip surgery - REVASCULARIZATION ILIAC ART ANGIOP EA IPSI VSL bilateral - REVISE MEDIAN N/CARPAL TUNNEL SURG x 2 Carpal tunnel decomp - TOTAL ABDOM HYSTERECTOMY Hysterectomy, AMALIA FAMILY HISTORY Problem Relation Age of Onset - Cancer Mother lung - Heart Mother - Hypertension Father - Heart Father - Prostate Cancer Father - Diabetes Brother - Diabetes Paternal Grandmother - Hypertension Paternal Grandmother ALLERGIES Allergen Reactions - Colesevelam Unknown - Nitrofurantoin Unknown - Penicillins Other: See Comments, Unknown - Hydrocortisone Unknown - Macrobid [Nitrofura* - Metolazone Unknown - Pravastatin Unknown - Sulfa (Sulfonamide * Unknown - Tramadol GI Upset Current Outpatient Medications Medication Sig Dispense Refill - promethazine-codeine 6.25-10 mg/5 mL syrup give 5 milliliters by mouth every 4 hours if needed for cough --NOT TO EXCEED 30 MLS PER 24 HOURS - azithromycin (ZITHROMAX) 250 mg tablet take 2 tablets by mouth on day 1 then 1 tablet daily until finished - DAPTOmycin (CUBICIN) 350 mg injection Inject 350 mg intravenously every 48 hours. - aspirin, enteric coated (ASPIRIN, ENTERIC COATED) 81 mg EC tablet q 24 HR. - cyclobenzaprine (FLEXERIL) 10 mg tablet Take 10 mg by mouth three times daily. - levETIRAcetam (KEPPRA) 500 mg tablet Take 500 mg by mouth twice daily. - cholecalciferol (VITAMIN D-3) 5,000 unit tab Take 5,000 Units by mouth once daily. - calcitriol (ROCALTROL) 0.25 mcg capsule Take 0.25 mcg by mouth once daily. - VITAMIN B-6 100 mg tablet take 1 tablet by mouth once daily 100 tablet 2 - Multivitamin with Iron-Mineral tab Take 1 tablet by mouth once daily. 100 tablet 2 - hydrOXYzine HCl (ATARAX) 25 mg tablet Take 25 mg by mouth every 6 hours as needed. - furosemide (LASIX) 40 mg tablet Take 40 mg by mouth. Wednesday, Wednesday and Wednesday - linaCLOtide (LINZESS) 290 mcg capsule Take 290 mcg by mouth as needed. - omeprazole 40 mg capsule Take 40 mg by mouth once daily. - metoprolol tartrat (more content not included)...[facility] 01-23-2021 NoteHNO ID: [id number] Author: Cecilia Quigley RN Service: Interventional Radiology Author Type: Registered Nurse Type: Patient Education Filed: 01/23/2021 10:05 AM Note Text: At home instructions reviewed with patient.[facility] 01-17-2021 NoteHNO ID: [id number] Author: Sameer Perez MD Service: ? Author Type: Physician Type: Progress Notes Filed: 01/17/2021 8:10 AM Note Text: NEUROSURGERY POST-OP NOTE Sameer Perez MD Date of visit: January 17, 2021 Patient Name: Ms.Andra Chika Shelton Date of : 1950 Current Age: [age] year old Sex: female MRN/E# [id number] Last Office Visit: 12/30/2020 SURGERY:?lumbar prior?hardware removal d/t wound infection with placement of wound vac and drain?on 11/18/2020 ? Pre-Surgical Symptoms:?non healing lumbar wound, drainage ? Patient is having their 2 month post operative visit. She was last seen on 12/22/2020 with complaints of pain in the left hip and difficulty with ambulation. She noted a region to the left of her incision that was tender and raised. She was sent for an MRI of the lumbar spine which demonstrated loculated septated fluid collection dorsal to the posterior spinous process with extensive surrounding edema extending from L2-S2. She was sent to intervention radiology for a percutaneous drainage of this fluid. Today she states overall her symptoms are improving. She has a ALEC drain that she states is draining serosanguinous fluid, and is emptying about 25cc 4-5 times a day. She continues to be treated with antibiotics per infectious disease. She states her IV antibiotics were discontinued yesterday and she follows up with ID on January 23. She presents for evaluation and plan of care. Incision: Dry and intact, without redness Current Outpatient Medications Medication Sig Dispense Refill - aspirin, enteric coated (ASPIRIN, ENTERIC COATED) 81 mg EC tablet q 24 HR. - cyclobenzaprine (FLEXERIL) 10 mg tablet Take 10 mg by mouth three times daily. - levETIRAcetam (KEPPRA) 500 mg tablet Take 500 mg by mouth twice daily. - cholecalciferol (VITAMIN D-3) 5,000 unit tab Take 5,000 Units by mouth once daily. - calcitriol (ROCALTROL) 0.25 mcg capsule Take 0.25 mcg by mouth once daily. - VITAMIN B-6 100 mg tablet take 1 tablet by mouth once daily 100 tablet 2 - Multivitamin with Iron-Mineral tab Take 1 tablet by mouth once daily. 100 tablet 2 - hydrOXYzine HCl (ATARAX) 25 mg tablet Take 25 mg by mouth every 6 hours as needed. - linaCLOtide (LINZESS) 290 mcg capsule Take 290 mcg by mouth as needed. - omeprazole 40 mg capsule Take 40 mg by mouth once daily. - metoprolol tartrate, short acting, (LOPRESSOR) 25 mg tablet Take 25 mg by mouth once daily. - cyanocobalamin, vitamin B-12, (VITAMIN B-12 INJECTION) by INJECTION(UNSPECIFIED PARENTERAL ROUTES) route once every month. - temazepam 30 mg cap Take 30 mg by mouth daily at bedtime. - montelukast sodium(SINGULAIR 10 MG TAB) take one tablet by mouth daily 0 - NITROGLYCERIN 0.4 MG SUBLINGUAL TAB Dissolve under the tongue every 5 minutes as needed. Usual dose for angina is 1 tablet every 5 minutes for maximum of 3 doses in 15 minutes. 0 - ALBUTEROL 90 MCG/ACTUATION AEROSOL INHALER Inhale 1-2 Puffs as instructed every 4 hours as needed. SHAKE WELL BEFORE USING 0 - DAPTOmycin (CUBICIN) 350 mg injection Inject 350 mg intravenously every 48 hours. (Patient not taking: Reported on 01/17/2021 ) - [START ON 01/27/2021] rosuvastatin (CRESTOR) 40 mg tablet Take 1 tablet by mouth once daily. 30 tablet 0 - furosemide (LASIX) 40 mg tablet Take 40 mg by mouth every 48 hours. No current facility-administered medications for this visit. Review of Systems Constitutional: Negative for chills, diaphoresis and fever. HENT: Negative for congestion, ear pain and sinus pressure. Eyes: Negative for discharge and redness. Respiratory: Negative for cough, shortness of breath and wheezing. Cardiovascular: Positive for leg swelling. Negative for chest pain and palpitations. Gastrointestinal: Negative for constipation, diarrhea and nausea. Endocrine: Negative for cold intolerance and heat intolerance. Genitourinary: Negative for difficulty urinating, frequency and urgency. Musculoskeletal: Positive for back pain and gait problem. Negative for neck pain. Skin: Negative for rash and wound. Allergic/Immunologic: Negative for environmental allergies and food allergies. Neurological: Positive for weakness. Negative for dizziness and numbness. Hematological: Bruises/bleeds easily. Psychiatric/Behavioral: Negative for agitation. The patient is not nervous/anxious. PAIN EVALUATION No data found in the last 1 encounters. PHYSICAL EXAM: WOUND ASSESSMENT: Incision healing 1. Vertebral osteomyelitis (HCC) Patient returns today for follow-up. She has a ALEC drain in place. This is being managed by interventional radiology. We will continue to monitor the output. For now, there is no surgical intervention planned. All of her questions were addressed in detail. She will follow up with me in 3 months. Sameer Perez MD This note was partially generated using [employer] voice recognition system, and (more content not included)...[facility]05-05-2021 NoteHNO ID: [id number] Author: Sameer Perez MD Service: ? Author Type: Physician Type: Progress Notes Filed: 12/25/2020 8:37 AM Note Text: NEUROSURGERY POST-OP NOTE Sameer Perez MD Date of visit: December 25, 2020 Patient Name: Ms.Andra Chika Shelton Date of : 1950 Current Age: [age] year old Sex: female MRN/E# [id number] Last Office Visit: 12/18/2020 SURGERY:?lumbar prior?hardware removal d/t wound infection with placement of wound vac and drain?on 11/18/2020 ? Pre-Surgical Symptoms:?non healing lumbar wound, drainage Ms. Shelton presents to the office today for a follow up visit with imaging for low back pain. She was last seen on 12/18/2020 and noted concerning new pain in the left hip and difficulty with ambulation. She noted a hardness to the left of the incision without redness, swelling, or drainage. She was sent for an MRI of the lumbar spine and wound center. Today she states pain has improved a bit with pain medication. She continues to be on IV antibiotics scheduled to continue until January [address] Dobbs. She denies any drainage from her incision or severe pain. She presents for image review, evaluation and plan of care. Incision: TAMIKO with a 2 small areas of concern. One toward the top of the incision appears crusted, one open more inferior without drainage. Current Outpatient Medications Medication Sig Dispense Refill - aspirin, enteric coated (ASPIRIN, ENTERIC COATED) 81 mg EC tablet q 24 HR. - cyclobenzaprine (FLEXERIL) 10 mg tablet Take 10 mg by mouth three times daily. - DAPTOmycin 500 mg in NaCl 0.9% 50 mL (CUBICIN) Inject 500 mg intravenously every 48 hours. - levETIRAcetam (KEPPRA) 500 mg tablet Take 500 mg by mouth twice daily. - cholecalciferol (VITAMIN D-3) 5,000 unit tab Take 5,000 Units by mouth once daily. - calcitriol (ROCALTROL) 0.25 mcg capsule Take 0.25 mcg by mouth once daily. - VITAMIN B-6 100 mg tablet take 1 tablet by mouth once daily 100 tablet 2 - hydrOXYzine HCl (ATARAX) 25 mg tablet Take 25 mg by mouth every 6 hours as needed. - furosemide (LASIX) 40 mg tablet Take 40 mg by mouth every 48 hours. - linaCLOtide (LINZESS) 290 mcg capsule Take 290 mcg by mouth as needed. - omeprazole 40 mg capsule Take 40 mg by mouth once daily. - metoprolol tartrate, short acting, (LOPRESSOR) 25 mg tablet Take 25 mg by mouth once daily. - cyanocobalamin, vitamin B-12, (VITAMIN B-12 INJECTION) by INJECTION(UNSPECIFIED PARENTERAL ROUTES) route once every month. - temazepam 30 mg cap Take 30 mg by mouth daily at bedtime. - montelukast sodium(SINGULAIR 10 MG TAB) take one tablet by mouth daily 0 - NITROGLYCERIN 0.4 MG SUBLINGUAL TAB Dissolve under the tongue every 5 minutes as needed. Usual dose for angina is 1 tablet every 5 minutes for maximum of 3 doses in 15 minutes. 0 - ALBUTEROL 90 MCG/ACTUATION AEROSOL INHALER Inhale 1-2 Puffs as instructed every 4 hours as needed. SHAKE WELL BEFORE USING 0 - [START ON 01/27/2021] rosuvastatin (CRESTOR) 40 mg tablet Take 1 tablet by mouth once daily. 30 tablet 0 - Multivitamin with Iron-Mineral tab Take 1 tablet by mouth once daily. 100 tablet 2 No current facility-administered medications for this visit. Review of Systems Constitutional: Negative for chills, diaphoresis (Negative for night sweats.) and fever. HENT: Negative for ear discharge and rhinorrhea. Eyes: Negative for discharge. Respiratory: Negative for cough, shortness of breath and wheezing. Cardiovascular: Negative for chest pain, palpitations and leg swelling. Gastrointestinal: Negative for constipation, diarrhea, nausea and vomiting. Endocrine: Negative for cold intolerance and heat intolerance. Genitourinary: Negative for frequency. Negative for urinary incontinence and urinary retention. Musculoskeletal: Positive for back pain and gait problem. Negative for joint swelling, myalgias and neck pain. Skin: Negative for rash (Negative for hives and skin lesions.). Allergic/Immunologic: Negative for environmental allergies and food allergies. Negative for contact allergy, seasonal allergies. Neurological: Positive for weakness. Negative for dizziness, seizures, syncope, light-headedness, numbness (Negative for numbness in extremities.) and headaches. Hematological: Does not bruise/bleed easily. Psychiatric/Behavioral: The patient is not nervous/anxious. Negative for depression. PAIN EVALUATION 12/25/2020 0801 Pain Level: 4 Pain Location: Back-Lower Description: Sharp Duration Units: Weeks Frequency: Intermittent Intervention: Medication PHYSICAL EXAM: WOUND ASSESSMENT: approximated with 2 small areas of one with crusting and one pin hole site without drainage, erythema or edema. MRI of the lumbar spine on 12/20/20 He continues to be a loculated septated fluid collection tarsi to the posterior spinous process with extensive surrounding edema extending from L2-3 to S2 le (more content not included)...[facility] 12-18-2020 NoteHNO ID: [id number] Author: Sameer Perez MD Service: ? Author Type: Physician Type: Progress Notes Filed: 12/18/2020 9:51 AM Note Text: NEUROSURGERY POST-OP NOTE Sameer Perez MD Date of visit: December 18, 2020 Patient Name: Ms.Andra Chika Shelton Date of : 1950 Current Age: [age] year old Sex: female MRN/E# [id number] Last Office Visit: 12/13/2020 SURGERY: lumbar prior hardware removal d/t wound infection with placement of wound vac and drain on 11/18/2020 ? Pre-Surgical Symptoms: non healing lumbar wound, drainage Ms. Shelton presents to the office today for a follow up visit for worsening low back pain into the left hip. She has been followed by home health AND they have contacted the office concerning a new pain into the left hip with ambulation. They also noted a hardness to the left of the incision without redness, swelling, or drainage. The patient states this pain has been persistent and severe for 6 days. She notes difficulty with ambulation and has a hear time bearing weight on the left lower extremity. She continues to receive IV antibiotics and states that she did contact infectious disease but they have not called her back. Her midline lumbar incision has a superficial openening without active drainage noted. There is tenderness to the left of the incision. She presents for evaluation and plan of care. Incision: superficial opening at the midline lumbar incision site without warmth or drainage noted Current Outpatient Medications Medication Sig Dispense Refill - oxyCODONE-acetaminophen (PERCOCET) 5-325 mg tablet Take 1 tablet by mouth every 6 hours as needed for Pain (acute post-op pain) for up to 7 days. 28 tablet 0 - [START ON 01/27/2021] rosuvastatin (CRESTOR) 40 mg tablet Take 1 tablet by mouth once daily. (Patient not taking: Reported on 11/29/2020 ) 30 tablet 0 - DAPTOmycin 500 mg in NaCl 0.9% 50 mL (CUBICIN) Inject 500 mg intravenously every 48 hours. - levETIRAcetam (KEPPRA) 500 mg tablet Take 500 mg by mouth twice daily. - cholecalciferol (VITAMIN D-3) 5,000 unit tab Take 5,000 Units by mouth once daily. - calcitriol (ROCALTROL) 0.25 mcg capsule Take 0.25 mcg by mouth once daily. - VITAMIN B-6 100 mg tablet take 1 tablet by mouth once daily 100 tablet 2 - Multivitamin with Iron-Mineral tab Take 1 tablet by mouth once daily. (Patient not taking: Reported on 11/01/2020 ) 100 tablet 2 - hydrOXYzine HCl (ATARAX) 25 mg tablet Take 25 mg by mouth every 6 hours as needed. - furosemide (LASIX) 40 mg tablet Take 40 mg by mouth every 48 hours. - linaCLOtide (LINZESS) 290 mcg capsule Take 290 mcg by mouth as needed. - omeprazole 40 mg capsule Take 40 mg by mouth once daily. - metoprolol tartrate, short acting, (LOPRESSOR) 25 mg tablet Take 25 mg by mouth once daily. - cyanocobalamin, vitamin B-12, (VITAMIN B-12 INJECTION) by INJECTION(UNSPECIFIED PARENTERAL ROUTES) route once every month. - temazepam 30 mg cap Take 30 mg by mouth daily at bedtime. - montelukast sodium(SINGULAIR 10 MG TAB) take one tablet by mouth daily 0 - NITROGLYCERIN 0.4 MG SUBLINGUAL TAB Dissolve under the tongue every 5 minutes as needed. Usual dose for angina is 1 tablet every 5 minutes for maximum of 3 doses in 15 minutes. 0 - ALBUTEROL 90 MCG/ACTUATION AEROSOL INHALER Inhale 1-2 Puffs as instructed every 4 hours as needed. SHAKE WELL BEFORE USING (Patient not taking: Reported on 11/29/2020 ) 0 No current facility-administered medications for this visit. Review of Systems Constitutional: Negative for chills, diaphoresis and fever. HENT: Negative for congestion, ear pain and sinus pressure. Eyes: Negative for discharge and redness. Respiratory: Negative for cough, shortness of breath and wheezing. Cardiovascular: Negative for chest pain, palpitations and leg swelling. Gastrointestinal: Negative for constipation, diarrhea and nausea. Endocrine: Negative for cold intolerance and heat intolerance. Genitourinary: Negative for difficulty urinating, frequency and urgency. Musculoskeletal: Positive for back pain and gait problem. Negative for neck pain. Skin: Negative for rash and wound. Allergic/Immunologic: Negative for environmental allergies and food allergies. Neurological: Negative for dizziness, weakness and numbness. Hematological: Does not bruise/bleed easily. Psychiatric/Behavioral: Negative for agitation. The patient is not nervous/anxious. PAIN EVALUATION No data found in the last 1 encounters. PHYSICAL EXAM: WOUND ASSESSMENT: superficial opening at the midline lumbar incision site without warmth or drainage noted 1. Vertebral osteomyelitis (HCC) Patient returns today for follow-up. She states she had been doing well until late last week when she developed acute worsening back pain approximately 1 to 2 inches to the left of her previous incision. She states that the pain is excruciating and causes him to (more content not included)...[facility]04-09-2021 NoteHNO ID: [id number] Author: Sameer Perez Service: ? Author Type: Physician Type: Progress Notes Filed: 11/29/2020 10:28 AM Note Text: NEUROSURGERY POST-OP NOTE Sameer Perez MD Date of visit: November 29, 2020 Patient Name: Ms.Andra Chika Shelton Date of : 1950 Current Age: [age] year old Sex: female MRN/E# [id number] Last Office Visit: Post op SURGERY: lumbar prior hardware removal d/t wound infection with placement of wound vac and drain on 11/18/2020 Pre-Surgical Symptoms: non healing lumbar wound, drainage Patient is having their 1st post operative visit. She states she is overall doing well. She reports no issues with her incision or wound. She denies any drainage from the wound VAC. She reports no new complaints. She presents for evaluation and plan of care. Incision: Vac dressing intact PREVIOUS SURGERY: SURGERY #1: L2-S1 fusion per Dr.Olide Damian ([place]) 2017 Current Outpatient Medications Medication Sig Dispense Refill - [START ON 01/27/2021] rosuvastatin (CRESTOR) 40 mg tablet Take 1 tablet by mouth once daily. 30 tablet 0 - DAPTOmycin 500 mg in NaCl 0.9% 50 mL (CUBICIN) Inject 500 mg intravenously every 48 hours. - levETIRAcetam (KEPPRA) 500 mg tablet Take 500 mg by mouth twice daily. - cholecalciferol (VITAMIN D-3) 5,000 unit tab Take 5,000 Units by mouth once daily. - calcitriol (ROCALTROL) 0.25 mcg capsule Take 0.25 mcg by mouth once daily. - VITAMIN B-6 100 mg tablet take 1 tablet by mouth once daily 100 tablet 2 - Multivitamin with Iron-Mineral tab Take 1 tablet by mouth once daily. (Patient not taking: Reported on 11/01/2020 ) 100 tablet 2 - hydrOXYzine HCl (ATARAX) 25 mg tablet Take 25 mg by mouth every 6 hours as needed. - furosemide (LASIX) 40 mg tablet Take 40 mg by mouth every 48 hours. - linaCLOtide (LINZESS) 290 mcg capsule Take 290 mcg by mouth as needed. - omeprazole 40 mg capsule Take 40 mg by mouth once daily. - metoprolol tartrate, short acting, (LOPRESSOR) 25 mg tablet Take 25 mg by mouth once daily. - cyanocobalamin, vitamin B-12, (VITAMIN B-12 INJECTION) by INJECTION(UNSPECIFIED PARENTERAL ROUTES) route once every month. - temazepam 30 mg cap Take 30 mg by mouth daily at bedtime. - montelukast sodium(SINGULAIR 10 MG TAB) take one tablet by mouth daily 0 - NITROGLYCERIN 0.4 MG SUBLINGUAL TAB Dissolve under the tongue every 5 minutes as needed. Usual dose for angina is 1 tablet every 5 minutes for maximum of 3 doses in 15 minutes. 0 - ALBUTEROL 90 MCG/ACTUATION AEROSOL INHALER Inhale 1-2 Puffs as instructed every 4 hours as needed. SHAKE WELL BEFORE USING 0 No current facility-administered medications for this visit. Review of Systems Constitutional: Negative for chills, diaphoresis (Negative for night sweats.) and fever. HENT: Negative for ear discharge and rhinorrhea. Eyes: Negative for discharge. Respiratory: Negative for cough, shortness of breath and wheezing. Cardiovascular: Negative for chest pain, palpitations and leg swelling. Gastrointestinal: Negative for constipation, diarrhea, nausea and vomiting. Endocrine: Negative for cold intolerance and heat intolerance. Genitourinary: Negative for frequency. Negative for urinary incontinence and urinary retention. Musculoskeletal: Positive for back pain and gait problem. Negative for joint swelling, myalgias and neck pain. Skin: Negative for rash (Negative for hives and skin lesions.). Allergic/Immunologic: Negative for environmental allergies and food allergies. Negative for contact allergy, seasonal allergies. Neurological: Negative for dizziness, seizures, syncope, weakness, light-headedness, numbness (Negative for numbness in extremities.) and headaches. Hematological: Does not bruise/bleed easily. Psychiatric/Behavioral: The patient is not nervous/anxious. Negative for depression. PAIN EVALUATION No data found in the last 1 encounters. PHYSICAL EXAM: WOUND ASSESSMENT: Dressing intact to wound vac. No drainage. tubing clamped 1. Vertebral osteomyelitis (HCC) The patient returns today for follow-up. She is recovering well following surgical reexploration and removal of the previously implanted hardware along with debridement for vertebral osteomyelitis. Her incision seems to be healing well. She is continuing her current antibiotic therapy under the care of Dr. Dobbs. I told her she should follow-up with me in approximately 6 weeks. All of her questions were addressed in detail. Sameer Perez MD This note was partially generated using [employer] voice recognition system, and there may be some incorrect words, spellings, and punctuation that were not noted in checking the note before saving.[facility] 11-23-2020 NoteHNO ID: [id number] Author: Isaias Carrillo III Service: Infectious Disease Author Type: Physician Type: Plan of Care Filed: 11/23/2020 5:56 PM Note Text: Called by care mgmt about dapto dose for home not matching dapto dose in hospital. Estimated Creatinine Clearance: 27.4 mL/min (A) (based on SCr of 2.07 mg/dL (H)). Since CrCl is less than 30 patient on q48H. COPAT form updated. SIGNATURE: Isaias Carrillo III, MD PATIENT NAME: Marcos Shelton DATE: November 23, 2020 TIME: 5:56 PM PAGER/CONTACT #: [phone] NoteHNO ID: [id number] Author: Sara Foster (Sw) Service: Care Management Author Type: Environmental Monitoring Specialist Type: Care Mgt Progress Note Filed: 11/23/2020 4:10 PM Note Text: CARE MANAGEMENT DISCHARGE NOTE SERVICE DATE: 11/23/2020 SERVICE TIME: 4:07 PM LOS: 5 days Admission Date: 11/18/2020 DISCHARGE ARRANGEMENT (list agency and phone number) Discharge Arrangement: Home;Home Care;Home Care pharmacy Home Care: Nursing;PT;OT Provider Name: Emelina Burgos Phone: CAREGIVER ASSESSMENT: Caregiver is ready, willing and able to meet the patient's needs as recommended by the inter-professional team:: Yes Does the patient have an acute stroke diagnosis, or has the patient had a stroke during this admission?: No Patient's transition needs and plan for meeting these needs: Home with home care and [facility] HANDOFF COMMUNICATION: Handoff to: Other Caregiver;Primary Care Physician Primary Care Physician Name/Phone: Bell Maher [phone] Other Caregiver [facility]/Phone[facility] TRANSPORTATION ARRANGEMENTS: Transportation Arrangements: Car ADDITIONAL CONTACT RESOURCES: n/a [facility]aseli Burgos as her provider Name of physician who has agreed to follow the home care plan of care: Unknown, please contact patient's primary care physician Met with patient and spouse and they are aware of possible out of pocket costs regarding home care, Intravenous medications, and other ancillary needs. patient and spouse are aware that a teachable adult must be present for initial home care visit and teaching. Teachable adult is Spouse Discharge orders complete. Pt discharging home with spouse after dose of iv abc. [facility] and Loretta will see pt Wednesday afternoon for SOC and next dose. Orders sent. Pt's spouse to transport pt home. No other needs noted at this time. SIGNATURE: MAX Sarkar PATIENT NAME: Marcos Shelton DATE: November 23, 2020 TIME: 4:07 PM PAGER/CONTACT #: [phone] 11-23-2020 NoteHNO ID: [id number] Author: Zay Zhang Service: Hospital Medicine Author Type: Physician Type: Progress Notes Filed: 11/23/2020 1:25 PM Note Text: Hospital Medicine consult progress Note Patient Name: Marcos Shelton Admission Date: 11/18/2020 Reason for Visit: Hypertension IMPRESSION AND PLAN: Active Hospital Problems Diagnosis - Spondylolisthesis, lumbar region 1. ?Hypertension continue with current home medication?blood pressure is better today. 2. ?Acute kidney injury on chronic kidney disease stage III with creatinine?with minimal improvement down to 2.0, baseline is 1.5. 3. ?Seizure controlled on Keppra. 4. ?Epidural abscess status post surgery on 11/18/2020, antibiotic is managed by infection disease. 5. ?Nonhealing lumbar back wound postop day #2,?Managed by neuro?surgery and wound care. 6. ?Anemia of chronic kidney disease hemoglobin seem to be stable we will continue to monitor. 7. ?Chronic GERD with Callaway's esophagus continue PPI. Patient Checklist Prophylaxis: VTE - No. Not indicated. Code Status: Code Status: Not on file Disposition: Home Zay Zhang MD Interval History: Patient was seen and examined for hypertension which better controlled denies any fever, chills, chest pain passing gas but no bowel movement, arrangement is being made for patient to have home health care and will be able to go home today. PERTINENT ROS: Temp Av.7 ?C (98.1 ?F) Min: 36.3 ?C (97.3 ?F) Max: 37 ?C (98.6 ?F) Pulse Av.5 Min: 65 Max: 80 No data recorded Cuff BP Min: 110/51 Max: 141/61 Pain Level: 5 PHYSICAL EXAM: BP 127/57 Pulse 65 Temp 36.3 ?C (97.3 ?F) (Oral) Resp 18 Ht 162.6 cm (5' 4.02) Wt 84.6 kg (186 lb 8.2 oz) SpO2 100% BMI 32.00 kg/m? PHYSICAL EXAMINATION: General appearance: Patient is sitting in bed in no acute respiratory distress. Awake, alert, oriented *3. Skin: Normal temperature, no ecchymosis. Lungs: Good air entry. No wheezing, rhonchi, rales, no use of accessory respiratory muscles. Heart: RRR, normal s1s2, no murmurs Abdomen: Positive for bowel sounds, soft abdomen, non-tender. Extremities: No pitting edema bilateral legs. MEDICATIONS: levETIRAcetam (KEPPRA) 500 mg tablet Take 500 mg by mouth twice daily. cholecalciferol (VITAMIN D-3) 5,000 unit tab Take 5,000 Units by mouth once daily. calcitriol (ROCALTROL) 0.25 mcg capsule Take 0.25 mcg by mouth once daily. hydrOXYzine HCl (ATARAX) 25 mg tablet Take 25 mg by mouth every 6 hours as needed. furosemide (LASIX) 40 mg tablet Take 40 mg by mouth every 48 hours. omeprazole 40 mg capsule Take 40 mg by mouth once daily. metoprolol tartrate, short acting, (LOPRESSOR) 25 mg tablet Take 25 mg by mouth once daily. temazepam 30 mg cap Take 30 mg by mouth daily at bedtime. montelukast sodium(SINGULAIR 10 MG TAB) take one tablet by mouth daily [START ON 01/27/2021] rosuvastatin (CRESTOR) 40 mg tablet Take 1 tablet by mouth once daily. cyclobenzaprine (FLEXERIL) 10 mg tablet Take 1 tablet by mouth three times daily as needed for Muscle Spasm for up to 5 days. oxyCODONE-acetaminophen (PERCOCET) 5-325 mg tablet Take 1 tablet by mouth every 6 hours as needed for Pain (acute post-op pain) for up to 5 days. DAPTOmycin 500 mg in NaCl 0.9% 50 mL (CUBICIN) Inject 500 mg intravenously every 48 hours. VITAMIN B-6 100 mg tablet take 1 tablet by mouth once daily Multivitamin with Iron-Mineral tab Take 1 tablet by mouth once daily. linaCLOtide (LINZESS) 290 mcg capsule Take 290 mcg by mouth as needed. cyanocobalamin, vitamin B-12, (VITAMIN B-12 INJECTION) by INJECTION(UNSPECIFIED PARENTERAL ROUTES) route once every month. NITROGLYCERIN 0.4 MG SUBLINGUAL TAB Dissolve under the tongue every 5 minutes as needed. Usual dose for angina is 1 tablet every 5 minutes for maximum of 3 doses in 15 minutes. ALBUTEROL 90 MCG/ACTUATION AEROSOL INHALER Inhale 1-2 Puffs as instructed every 4 hours as needed. SHAKE WELL BEFORE USING Current Facility-Administered Medications Medication Dose Route Frequency - montelukast 10 mg tab(s) (SINGULAIR) 10 mg ORAL DAILY - temazepam 30 mg cap(s) (RESTORIL) 30 mg ORAL AT BEDTIME - metoprolol tartrate (short acting) 25 mg tab(s) (LOPRESSOR) 25 mg ORAL DAILY - furosemide 40 mg tab(s) (LASIX) 40 mg ORAL q 48 HR - levETIRAcetam 500 mg tab(s) (KEPPRA) 500 mg ORAL BID - hydrOXYzine HCl 25 mg tab(s) (ATARAX) 25 mg ORAL q 6 H PRN - oxyCODONE-acetaminophen 5-325 mg 1-2 tablet (PERCOCET) 1-2 tablet ORAL q 4 H PRN - HYDROmorphone 0.5-1 mg injection (DILAUDID) 0.5-1 mg INTRAVENOUS q 2 H PRN - cyclobenzaprine 10 mg tab(s) (FLEXERIL) 10 mg ORAL TID PRN - ondansetron 4 mg tab(s) (ZOFRAN) 4 mg ORAL q 6 H PRN Or - ondansetron (PF) 4 mg injection (ZOFRAN) 4 mg INTRAVENOUS q 6 H PRN - docusate sodium 100 mg cap(s) (COLACE) 100 mg ORAL BID - polyethyl (more content not included)...[facility]04-03-2021 NoteHNO ID: [id number] Author: Geovanna Key) MARILYN Amaro Service: Neurosurgery Author Type: Physician Territory Representative Type: Plan of Care Filed: 11/23/2020 12:41 PM Note Text: Neurosurgery POC Pt's d/c held yesterday due to HHC issues. Now possibly set up for Wednesday to start. Waiting for confirmation. Pt's ATB is every 48 hrs and is due to have administered today. If HHC is confirmed for Wednesday to administer ATB at home in the afternoon, then pt may be discharged home this evening after her dose today. There were naeon and pt is stable. Geovanna Amaro [facility]04-02-2021 NoteHNO ID: [id number] Author: Glory Diaz (Sw) Service: Care Management Author Type: Environmental Monitoring Specialist Type: Care Mgt Progress Note Filed: 11/22/2020 4:01 PM Note Text: CARE MANAGEMENT PROGRESS NOTE SERVICE DATE: 11/22/2020 SERVICE TIME: 1530 LOS: 4 days Needs Prior to Discharge: Home Care Order Previous home care agency no longer accepting. home pharmacy still following for IVAB.[facility] has accepted for home care however cannot start care until Wednesday which means pt could not dc until after her Wednesday dose of IVAB. Pt aware this is the current plan. Will attempt to identify alternate home care with sooner start of care date. SIGNATURE: JESU Tompkins PATIENT NAME: Marcos Burnettt DATE: November 22, 2020 TIME: 3:59 PM PAGER/CONTACT #: [phone] 11-22-2020 NoteHNO ID: [id number] Author: Yadira Fair RN Service: Care Management Author Type: Registered Nurse Type: Care Mgt Initial Assessment Filed: 11/22/2020 1:56 PM Note Text: CARE MANAGEMENT PROGRESS NOTE SERVICE DATE: 11/22/2020 SERVICE TIME: 1340 LOS: 4 days IMM Follow Up Copy Given: Yes Copy given to:: Patient Method: In Person . SIGNATURE: Yadira Fair RN PATIENT NAME: Marcos Shelton DATE: November 22, 2020 TIME: 1:55 PM PAGER/CONTACT #: [phone]04-02-2021 NoteHNO ID: [id number] Author: Ye Dobbs Service: Infectious Disease Author Type: Physician Type: Plan of Care Filed: 11/22/2020 11:22 AM Note Text: CoPAT start form is in the chart review section for discharge Have them call my office at [phone] to get a May appointment Ye Dobbs MD 11/22/2020 11:22 AM pgr [phone]04-02-[facility]21 NoteHNO ID: [id number] Author: Zay Zhang Service: Hospital Medicine Author Type: Physician Type: Progress Notes Filed: 11/22/2020 11:36 AM Note Text: Hospital Medicine Consult Progress Note Patient Name: Marcos Shelton Admission Date: 11/18/2020 Reason for Visit: HTN IMPRESSION AND PLAN: Active Hospital Problems Diagnosis - Spondylolisthesis, lumbar region 1. ?Hypertension continue with current home medication blood pressure is better today. 2. ?Acute kidney injury on chronic kidney disease stage III with creatinine with minimal improvement down to 2.1, baseline is 1.5. 3. ?Seizure controlled on Keppra. 4. ?Epidural abscess status post surgery on 11/18/2020, antibiotic is managed by infection disease. 5. ?Nonhealing lumbar back wound postop day #2,?Managed by neuro?surgery and wound care. 6. ?Anemia of chronic kidney disease hemoglobin seem to be stable we will continue to monitor. 7. ?Chronic GERD with Callaway's esophagus continue PPI. Ok for discharge from medical point of view. Patient Checklist Prophylaxis: VTE - No. Code Status: Code Status: Not on file Disposition: Home Zay Zhang MD Interval History: Patient was seen and examined for hypertension which has improved, patient denied any fever, chills, chest pain, passing gas but no bowel movement. PERTINENT ROS: Temp Av ?C (98.6 ?F) Min: 36.5 ?C (97.7 ?F) Max: 37.2 ?C (99 ?F) Pulse Av.7 Min: 65 Max: 83 No data recorded Cuff BP Min: 107/38 Max: 141/51 Pain Level: 5 PHYSICAL EXAM: BP 115/51 Pulse 74 Temp 37.1 ?C (98.8 ?F) (Oral) Resp 16 Ht 162.6 cm (5' 4.02) Wt 84.6 kg (186 lb 8.2 oz) SpO2 100% BMI 32.00 kg/m? PHYSICAL EXAMINATION: General appearance: Patient is sitting in bed in no acute respiratory distress. Awake, alert, oriented *3. Skin: Normal temperature, no ecchymosis. Lungs: Good air entry. No wheezing, rhonchi, rales, no use of accessory respiratory muscles. Heart: RRR, normal s1s2, no murmurs Abdomen: Positive for bowel sounds, soft abdomen, non-tender. Extremities: No pitting edema bilateral legs. MEDICATIONS: rosuvastatin (CRESTOR) 40 mg tablet Take 40 mg by mouth once daily. levETIRAcetam (KEPPRA) 500 mg tablet Take 500 mg by mouth twice daily. cholecalciferol (VITAMIN D-3) 5,000 unit tab Take 5,000 Units by mouth once daily. calcitriol (ROCALTROL) 0.25 mcg capsule Take 0.25 mcg by mouth once daily. hydrOXYzine HCl (ATARAX) 25 mg tablet Take 25 mg by mouth every 6 hours as needed. furosemide (LASIX) 40 mg tablet Take 40 mg by mouth every 48 hours. omeprazole 40 mg capsule Take 40 mg by mouth once daily. metoprolol tartrate, short acting, (LOPRESSOR) 25 mg tablet Take 25 mg by mouth once daily. temazepam 30 mg cap Take 30 mg by mouth daily at bedtime. montelukast sodium(SINGULAIR 10 MG TAB) take one tablet by mouth daily VITAMIN B-6 100 mg tablet take 1 tablet by mouth once daily Multivitamin with Iron-Mineral tab Take 1 tablet by mouth once daily. linaCLOtide (LINZESS) 290 mcg capsule Take 290 mcg by mouth as needed. cyanocobalamin, vitamin B-12, (VITAMIN B-12 INJECTION) by INJECTION(UNSPECIFIED PARENTERAL ROUTES) route once every month. aspirin, enteric coated 81 mg EC tablet Take 81 mg by mouth once daily. NITROGLYCERIN 0.4 MG SUBLINGUAL TAB Dissolve under the tongue every 5 minutes as needed. Usual dose for angina is 1 tablet every 5 minutes for maximum of 3 doses in 15 minutes. ALBUTEROL 90 MCG/ACTUATION AEROSOL INHALER Inhale 1-2 Puffs as instructed every 4 hours as needed. SHAKE WELL BEFORE USING Current Facility-Administered Medications Medication Dose Route Frequency - montelukast 10 mg tab(s) (SINGULAIR) 10 mg ORAL DAILY - temazepam 30 mg cap(s) (RESTORIL) 30 mg ORAL AT BEDTIME - metoprolol tartrate (short acting) 25 mg tab(s) (LOPRESSOR) 25 mg ORAL DAILY - furosemide 40 mg tab(s) (LASIX) 40 mg ORAL q 48 HR - levETIRAcetam 500 mg tab(s) (KEPPRA) 500 mg ORAL BID - hydrOXYzine HCl 25 mg tab(s) (ATARAX) 25 mg ORAL q 6 H PRN - NaCl 0.45% iv infusion 100 mL/hr INTRAVENOUS CONTINUOUS - oxyCODONE-acetaminophen 5-325 mg 1-2 tablet (PERCOCET) 1-2 tablet ORAL q 4 H PRN - HYDROmorphone 0.5-1 mg injection (DILAUDID) 0.5-1 mg INTRAVENOUS q 2 H PRN - cyclobenzaprine 10 mg tab(s) (FLEXERIL) 10 mg ORAL TID PRN - ondansetron 4 mg tab(s) (ZOFRAN) 4 mg ORAL q 6 H PRN Or - ondansetron (PF) 4 mg injection (ZOFRAN) 4 mg INTRAVENOUS q 6 H PRN - docusate sodium 100 mg cap(s) (COLACE) 100 mg ORAL BID - polyethylene glycol 3350 17 g packet (MIRALAX, GLYCOLAX) 17 g ORAL DAILY PRN - bisacodyl 10 mg suppository (DULCOLAX) 10 mg RECTAL DAILY PRN - pantoprazole DR 40 mg tab(s) (PROTONIX) 40 mg ORAL DAILY (6 AM) - acetaminophen 650 mg tab(s) (TYLENOL) 650 mg ORAL q 4 H PRN - sodium chloride 0.9 % (flush) 10 mL (BD POSIFLUSH) 10 mL INTRAVENOUS (more content not included)...[facility]04-02-2021 NoteHNO ID: [id number] Author: Ye Dobbs Service: Infectious Disease Author Type: Physician Type: Progress Notes Filed: 11/22/2020 11:15 AM Note Text: INFECTIOUS DISEASE CONSULT PROGRESS NOTE SERVICE DATE: 11/22/2020 SERVICE TIME: 9:22 AM Subjective HPI: ?Marcos Shelton who is a 70 year old female with?chief complaint?of draining wound in the lumbar?area. She relates?episodes of vomiting and slurred speech that has been occurring for the past two years. She has?been given antibiotics for treatment during this time and relates that they never fixed the issue. For the past 8 months the?wound has been draining?and?she relates that she?has been sent to wound care and various other surgeons and medical dosimetrist with no relief. She finally presented to [facility] for surgical intervention of the issue on 11/18/20. Surgery was completed by Dr. Perez on 11/18 and soft tissue culturres were taken.? November 18 midday patient went to surgery where?A complex wound was found with there was a large phlegmon with pus which was debrided and drained. ?The found grossly signs of an epidural abscess extending from both sets of pedicle screws from L2 to the ileum and decide to remove all of the implanted hardware and the epidural abscess. ?According to the note entire hardware was removed. ?The infection was listed as extensive extending into the lateral gutters past the screw heads and even into the iliac regions bilaterally all phlegmon and abscesses were drained. ? INTERVAL HISTORY: This morning the patient was awake and AOx3. She denies any nausea, vomiting, diarrhea, shortness of breath, or chest pains. She admits to tolerating medications well. 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 Plan is to d/c patient today. ? Current Facility-Administered Medications Medication Dose Route Frequency - DAPTOmycin 500 mg in NaCl 0.9% 50 mL (CUBICIN) 500 mg INTRAVENOUS q 48 HR - sodium chloride 0.9 % (flush) 10 mL (BD POSIFLUSH) 10 mL INTRAVENOUS q 12 H - sodium chloride 0.9 % (flush) 20 mL (BD POSIFLUSH) 20 mL INTRAVENOUS PRN - calcium carbonate 500 mg chewable tab(s) (TUMS) 500 mg ORAL TID PRN - acetaminophen 650 mg tab(s) (TYLENOL) 650 mg ORAL q 4 H PRN - montelukast 10 mg tab(s) (SINGULAIR) 10 mg ORAL DAILY - temazepam 30 mg cap(s) (RESTORIL) 30 mg ORAL AT BEDTIME - metoprolol tartrate (short acting) 25 mg tab(s) (LOPRESSOR) 25 mg ORAL DAILY - furosemide 40 mg tab(s) (LASIX) 40 mg ORAL q 48 HR - levETIRAcetam 500 mg tab(s) (KEPPRA) 500 mg ORAL BID - hydrOXYzine HCl 25 mg tab(s) (ATARAX) 25 mg ORAL q 6 H PRN - NaCl 0.45% iv infusion 100 mL/hr INTRAVENOUS CONTINUOUS - oxyCODONE-acetaminophen 5-325 mg 1-2 tablet (PERCOCET) 1-2 tablet ORAL q 4 H PRN - HYDROmorphone 0.5-1 mg injection (DILAUDID) 0.5-1 mg INTRAVENOUS q 2 H PRN - cyclobenzaprine 10 mg tab(s) (FLEXERIL) 10 mg ORAL TID PRN - ondansetron 4 mg tab(s) (ZOFRAN) 4 mg ORAL q 6 H PRN Or - ondansetron (PF) 4 mg injection (ZOFRAN) 4 mg INTRAVENOUS q 6 H PRN - docusate sodium 100 mg cap(s) (COLACE) 100 mg ORAL BID - polyethylene glycol 3350 17 g packet (MIRALAX, GLYCOLAX) 17 g ORAL DAILY PRN - bisacodyl 10 mg suppository (DULCOLAX) 10 mg RECTAL DAILY PRN - pantoprazole DR 40 mg tab(s) (PROTONIX) 40 mg ORAL DAILY (6 AM) Active Antimicrobials (From admission, onward) Start Stop 11/21/20 1700 DAPTOmycin 500 mg in NaCl 0.9% 50 mL (CUBICIN) 500 mg, INTRAVENOUS, EVERY 48 HOURS -- Patient is Day 2 of daptomycin Objective PHYSICAL EXAM: BP 115/51 Pulse 74 Temp (Src) 98.8 (Oral) Resp 16 Ht 5' 4.016 (1.63m) Wt 186 lb 8.2 oz (84.6kg) SpO2 100% BMI 32.00 kg/(m2). O2 Therapy: Room Air Temp last 24 hours: Temp (24hrs), Av ?C (98.6 ?F), Min:36.5 ?C (97.7 ?F), Max:37.2 ?C (99 ?F) GENERAL APPEARANCE: Patient in no acute distress, well appearing. BACK: Wound Vac midline lumbar area. LUNGS: Normal breath sounds, clear to auscultation, no wheezes, or crackles. HEART: Regular with 2/6 systolic murmur that is old per patient. ABDOMEN: Soft, non tender, no palpable masses. EXTREMITIES: No edema or tenderness. NEURO: Awake, alert and oriented x3, no involuntary motions. Lines, Drains, and Airways Line Central Line Single Lumen Tunneled Right Chest 5.0 Austrian -- days Peripheral 11/21/20 0337 Short Right Forearm 20 Gauge 1 day Drain Drain/Tube 11/18/20 Hemovac 4 days DATA: Diagnostic Tests Reviewed for Today's Visit: Most recent labs and imaging results. WBC Date Value Ref Range Status 11/22/2020 8.46 3.70 - 11.00 k/uL Final 08/27/2020 9.27 3.70 - 11.00 k/uL Final Creatinine Date Value Ref Range Status 11/22/2020 2.15 (H) 0.58 - 0.96 mg/dL Final 08/27/2020 1.75 (H) 0.58 - 0.96 mg/dL Final Estimated Creatinine Clearance: 26.4 mL/min (A) (based on SCr of 2.15 mg/dL (H)). Impression/Recommendations Marcos Shelton is a 6 (more content not included)...[facility]04-02-2021 NoteHNO ID: [id number] Author: Luis Miguel Snyder Service: Neurosurgery Author Type: Nurse Practitioner Type: Progress Notes Filed: 11/22/2020 10:18 AM Note Text: Neurosurgery Progress Note SERVICE DATE: 11/22/2020 SUBJECTIVE: NAEON. States pain is manageable, is refusing pain meds because she doesn't want BP issues. Told patient she could take Tylenol without c/f BP issues. Denies LEIVA, n/v, new numbness/tingling. OBJECTIVE: Vitals: Temp (24hrs), Av ?C (98.6 ?F), Min:36.5 ?C (97.7 ?F), Max:37.2 ?C (99 ?F) BP 115/51 Pulse 74 Temp 37.1 ?C (98.8 ?F) (Oral) Resp 16 Ht 162.6 cm (5' 4.02) Wt 84.6 kg (186 lb 8.2 oz) SpO2 100% BMI 32.00 kg/m? O2 Therapy: Room Air IANDO: Date 11/21/20699 - 11/22/20 0611/22/20699 - 11/23/20 0659 Shift 4519-6714 6663-6975 9688-2122 24 Hour Total 2035-1629 7863-7710 4063-5507 24 Hour Total INTAKE PO 240 240 240 240 PO 240 240 240 240 Shift Total 240 240 240 240 OUTPUT Urine Urine Not Saved. 1 x 1 x 2 x 2 x Tubes 50 50 100 75 75 Drain/Tube Output (Drain/Tube 11/18/20 Hemovac) 50 50 100 75 75 Shift Total 50 50 100 75 75 Weight (kg) 84.6 84.6 84.6 84.6 84.6 84.6 84.6 84.6 Medications: Current Facility-Administered Medications Medication Dose Route Frequency - DAPTOmycin 500 mg in NaCl 0.9% 50 mL (CUBICIN) 500 mg INTRAVENOUS q 48 HR - sodium chloride 0.9 % (flush) 10 mL (BD POSIFLUSH) 10 mL INTRAVENOUS q 12 H - sodium chloride 0.9 % (flush) 20 mL (BD POSIFLUSH) 20 mL INTRAVENOUS PRN - calcium carbonate 500 mg chewable tab(s) (TUMS) 500 mg ORAL TID PRN - acetaminophen 650 mg tab(s) (TYLENOL) 650 mg ORAL q 4 H PRN - montelukast 10 mg tab(s) (SINGULAIR) 10 mg ORAL DAILY - temazepam 30 mg cap(s) (RESTORIL) 30 mg ORAL AT BEDTIME - metoprolol tartrate (short acting) 25 mg tab(s) (LOPRESSOR) 25 mg ORAL DAILY - furosemide 40 mg tab(s) (LASIX) 40 mg ORAL q 48 HR - levETIRAcetam 500 mg tab(s) (KEPPRA) 500 mg ORAL BID - hydrOXYzine HCl 25 mg tab(s) (ATARAX) 25 mg ORAL q 6 H PRN - NaCl 0.45% iv infusion 100 mL/hr INTRAVENOUS CONTINUOUS - oxyCODONE-acetaminophen 5-325 mg 1-2 tablet (PERCOCET) 1-2 tablet ORAL q 4 H PRN - HYDROmorphone 0.5-1 mg injection (DILAUDID) 0.5-1 mg INTRAVENOUS q 2 H PRN - cyclobenzaprine 10 mg tab(s) (FLEXERIL) 10 mg ORAL TID PRN - ondansetron 4 mg tab(s) (ZOFRAN) 4 mg ORAL q 6 H PRN Or - ondansetron (PF) 4 mg injection (ZOFRAN) 4 mg INTRAVENOUS q 6 H PRN - docusate sodium 100 mg cap(s) (COLACE) 100 mg ORAL BID - polyethylene glycol 3350 17 g packet (MIRALAX, GLYCOLAX) 17 g ORAL DAILY PRN - bisacodyl 10 mg suppository (DULCOLAX) 10 mg RECTAL DAILY PRN - pantoprazole DR 40 mg tab(s) (PROTONIX) 40 mg ORAL DAILY (6 AM) Labs: Recent Labs 11/22/20 0217 11/21/20 0336 NA 139 138 K 3.7 4.0 CHLOR 107* 108* CO2 22 22 BUN 20 21 CREAT 2.15* 2.18* GLUC 102* 95 ANION 10 8* CA 7.8* 8.2* WBC 8.46 9.01 HB 7.3* 8.0* HCT 22.9* 24.5* PLT 244 236 Exam: GENERAL: No distress, Alert NEURO: AAOx3, PERRL. Sensation intact to light touch in UE/LE bilaterally with exception of decr sensation below BL knees. Strength 5/5 in all extremities. HEENT: normocephalic, atraumatic NECK/BACK: Surgical dressing c/d/i, wound vac in place. Hemovac drain in place, no drainage, site c/d/i. Hemovac drained 75mL over last 12hr. LUNGS: Unlabored breathing CARDIAC: Regular rate and rhythm as above. ABDOMEN: Soft, non-tender, non-distended EXTREMITIES: VERMA, No deformities, No edema SKIN: Skin color, texture, turgor normal, No rashes or lesions ASSESSMENT AND PLAN: Active Hospital Problems Diagnosis Date Noted - Spondylolisthesis, lumbar region 11/18/2020 Marcos Shelton is a 70 year old female POD#4 s/p hardware removal d/t wound infection with placement of wound vac and drain. - Neuro as above - Will d/c Hemovac drain - Will place wound care consult for switch from KCI wound vac to Pravana disposable that she will be able to go home with. - Vanc switched to dapto per ID. They noted d/w patient to stay off statin and call if myalgias - Will place order for home nursing therapy for PICC abx, home PT/OT - PT/OT - Plan to d/c home today SIGNATURE: Luis Miguel Snyder APRN.CNP PATIENT NAME: Marcos Shelton DATE: November 22, 2020 TIME: 10:04 AM Pager: [phone] NoteHNO ID: [id number] Author: Zay Zhang Service: Hospital Medicine Author Type: Physician Type: Progress Notes Filed: 11/21/2020 12:40 PM Note Text: Hospital Medicine consult progress Note Patient Name: Marcos Shelton Admission Date: 11/18/2020 Reason for Visit: Hypertension IMPRESSION AND PLAN: Active Hospital Problems Diagnosis - Spondylolisthesis, lumbar region 1. Hypertension continue with current home medication blood pressure is better today. 2. Acute kidney injury on chronic kidney disease stage III with creatinine with minimal improvement down to 2.1, baseline is 1.5, continue with IV fluid and monitor low blood pressure as needed check BMP in the morning. 3. Seizure controlled on Keppra. 4. Epidural abscess status post surgery on 11/18/2020, antibiotic is managed by infection disease. 5. Nonhealing lumbar back wound postop day #2, Managed by neuro surgery and wound care. 6. Anemia of chronic kidney disease hemoglobin seem to be stable we will continue to monitor. 7. Chronic GERD with Callaway's esophagus continue PPI. ? Patient Checklist Prophylaxis: VTE - No. Code Status: Code Status: Not on file Disposition: Per primary team Zay Zhang MD Interval History: Patient was seen and examined for low blood pressure which is better today, patient is feeling better today was up in the chair denies any fever, chills, chest pain. Passing gas but no bowel movement PERTINENT ROS: Temp Av.2 ?C (98.9 ?F) Min: 36.3 ?C (97.3 ?F) Max: 38.2 ?C (100.8 ?F) Pulse Av Min: 74 Max: 95 No data recorded Cuff BP Min: 108/60 Max: 139/47 Pain Level: 5 PHYSICAL EXAM: BP 115/68 Pulse 85 Temp 36.6 ?C (97.9 ?F) (Oral) Resp 16 Ht 162.6 cm (5' 4.02) Wt 84.6 kg (186 lb 8.2 oz) SpO2 98% BMI 32.00 kg/m? PHYSICAL EXAMINATION: General appearance: Patient is sitting in chair in no acute respiratory distress. Awake, alert, oriented *3. Skin: Normal temperature, no ecchymosis. Lungs: Good air entry. No wheezing, rhonchi, rales, no use of accessory respiratory muscles. Heart: RRR, normal s1s2, no murmurs Abdomen: Positive for bowel sounds, soft abdomen, non-tender. Extremities: No pitting edema bilateral legs. MEDICATIONS: rosuvastatin (CRESTOR) 40 mg tablet Take 40 mg by mouth once daily. levETIRAcetam (KEPPRA) 500 mg tablet Take 500 mg by mouth twice daily. cholecalciferol (VITAMIN D-3) 5,000 unit tab Take 5,000 Units by mouth once daily. calcitriol (ROCALTROL) 0.25 mcg capsule Take 0.25 mcg by mouth once daily. hydrOXYzine HCl (ATARAX) 25 mg tablet Take 25 mg by mouth every 6 hours as needed. furosemide (LASIX) 40 mg tablet Take 40 mg by mouth every 48 hours. omeprazole 40 mg capsule Take 40 mg by mouth once daily. metoprolol tartrate, short acting, (LOPRESSOR) 25 mg tablet Take 25 mg by mouth once daily. temazepam 30 mg cap Take 30 mg by mouth daily at bedtime. montelukast sodium(SINGULAIR 10 MG TAB) take one tablet by mouth daily VITAMIN B-6 100 mg tablet take 1 tablet by mouth once daily Multivitamin with Iron-Mineral tab Take 1 tablet by mouth once daily. linaCLOtide (LINZESS) 290 mcg capsule Take 290 mcg by mouth as needed. cyanocobalamin, vitamin B-12, (VITAMIN B-12 INJECTION) by INJECTION(UNSPECIFIED PARENTERAL ROUTES) route once every month. aspirin, enteric coated 81 mg EC tablet Take 81 mg by mouth once daily. NITROGLYCERIN 0.4 MG SUBLINGUAL TAB Dissolve under the tongue every 5 minutes as needed. Usual dose for angina is 1 tablet every 5 minutes for maximum of 3 doses in 15 minutes. ALBUTEROL 90 MCG/ACTUATION AEROSOL INHALER Inhale 1-2 Puffs as instructed every 4 hours as needed. SHAKE WELL BEFORE USING Current Facility-Administered Medications Medication Dose Route Frequency - montelukast 10 mg tab(s) (SINGULAIR) 10 mg ORAL DAILY - temazepam 30 mg cap(s) (RESTORIL) 30 mg ORAL AT BEDTIME - metoprolol tartrate (short acting) 25 mg tab(s) (LOPRESSOR) 25 mg ORAL DAILY - furosemide 40 mg tab(s) (LASIX) 40 mg ORAL q 48 HR - levETIRAcetam 500 mg tab(s) (KEPPRA) 500 mg ORAL BID - hydrOXYzine HCl 25 mg tab(s) (ATARAX) 25 mg ORAL q 6 H PRN - NaCl 0.45% iv infusion 100 mL/hr INTRAVENOUS CONTINUOUS - oxyCODONE-acetaminophen 5-325 mg 1-2 tablet (PERCOCET) 1-2 tablet ORAL q 4 H PRN - HYDROmorphone 0.5-1 mg injection (DILAUDID) 0.5-1 mg INTRAVENOUS q 2 H PRN - cyclobenzaprine 10 mg tab(s) (FLEXERIL) 10 mg ORAL TID PRN - ondansetron 4 mg tab(s) (ZOFRAN) 4 mg ORAL q 6 H PRN Or - ondansetron (PF) 4 mg injection (ZOFRAN) 4 mg INTRAVENOUS q 6 H PRN - docusate sodium 100 mg cap(s) (COLACE) 100 mg ORAL BID - polyethylene glycol 3350 17 g packet (MIRALAX, GLYCOLAX) 17 g ORAL DAILY PRN - bisacodyl 10 mg suppository (DULCOLAX) 10 mg RECTAL DAILY PRN - pantoprazole DR 40 mg tab(s) (PROTONIX) 40 mg ORAL DAILY (6 AM) - atorvast (more content not included)...[facility]04-01-2021 NoteHNO ID: [id number] Author: Luis Miguel Snyder Service: Neurosurgery Author Type: Nurse Practitioner Type: Progress Notes Filed: 11/21/2020 10:25 AM Note Text: Neurosurgery Progress Note SERVICE DATE: 11/21/2020 SUBJECTIVE: NAEON. Endorses pain, manageable, about the same as yesterday. States she got tired of the pain meds affecting her BP, so she isn't taking them any longer. Endorses continued numbness to BLE below knee d/t neuropathy. Denies LEIVA, n/v, new numbness/tingling. OBJECTIVE: Vitals: Temp (24hrs), Av.1 ?C (98.8 ?F), Min:36.3 ?C (97.3 ?F), Max:38.2 ?C (100.8 ?F) BP 115/68 Pulse 85 Temp 36.6 ?C (97.9 ?F) (Oral) Resp 16 Ht 162.6 cm (5' 4.02) Wt 84.6 kg (186 lb 8.2 oz) SpO2 98% BMI 32.00 kg/m? O2 Therapy: Room Air IANDO: Date 11/20/20699 - 11/21/2065811/21/20699 - 11/22/20 0659 Shift 5796-3689 2906-3600 3641-3574 24 Hour Total 9555-7591 1143-4533 0377-0718 24 Hour Total INTAKE PO 240 240 PO 240 240 Shift Total 240 240 OUTPUT Tubes 75 50 125 Drain/Tube Output (Drain/Tube 11/18/20 Hemovac) 75 50 125 Shift Total 75 50 125 Weight (kg) 84.6 84.6 84.6 84.6 84.6 84.6 84.6 84.6 Medications: Current Facility-Administered Medications Medication Dose Route Frequency - sodium chloride 0.9 % (flush) 10 mL (BD POSIFLUSH) 10 mL INTRAVENOUS q 12 H - sodium chloride 0.9 % (flush) 20 mL (BD POSIFLUSH) 20 mL INTRAVENOUS PRN - calcium carbonate 500 mg chewable tab(s) (TUMS) 500 mg ORAL TID PRN - atorvastatin 80 mg tab(s) (LIPITOR) 80 mg ORAL AT BEDTIME - vancomycin dosing and monitoring per pharmacy OTHER As Directed - acetaminophen 650 mg tab(s) (TYLENOL) 650 mg ORAL q 4 H PRN - montelukast 10 mg tab(s) (SINGULAIR) 10 mg ORAL DAILY - temazepam 30 mg cap(s) (RESTORIL) 30 mg ORAL AT BEDTIME - metoprolol tartrate (short acting) 25 mg tab(s) (LOPRESSOR) 25 mg ORAL DAILY - furosemide 40 mg tab(s) (LASIX) 40 mg ORAL q 48 HR - levETIRAcetam 500 mg tab(s) (KEPPRA) 500 mg ORAL BID - hydrOXYzine HCl 25 mg tab(s) (ATARAX) 25 mg ORAL q 6 H PRN - NaCl 0.45% iv infusion 100 mL/hr INTRAVENOUS CONTINUOUS - oxyCODONE-acetaminophen 5-325 mg 1-2 tablet (PERCOCET) 1-2 tablet ORAL q 4 H PRN - HYDROmorphone 0.5-1 mg injection (DILAUDID) 0.5-1 mg INTRAVENOUS q 2 H PRN - cyclobenzaprine 10 mg tab(s) (FLEXERIL) 10 mg ORAL TID PRN - ondansetron 4 mg tab(s) (ZOFRAN) 4 mg ORAL q 6 H PRN Or - ondansetron (PF) 4 mg injection (ZOFRAN) 4 mg INTRAVENOUS q 6 H PRN - docusate sodium 100 mg cap(s) (COLACE) 100 mg ORAL BID - polyethylene glycol 3350 17 g packet (MIRALAX, GLYCOLAX) 17 g ORAL DAILY PRN - bisacodyl 10 mg suppository (DULCOLAX) 10 mg RECTAL DAILY PRN - pantoprazole DR 40 mg tab(s) (PROTONIX) 40 mg ORAL DAILY (6 AM) Labs: Recent Labs 11/21/20 0336 11/20/20 0309 11/20/20 0308 NA 138 -- 135* K 4.0 -- 4.0 CHLOR 108* -- 103 CO2 22 -- 23 BUN 21 -- 22* CREAT 2.18* -- 2.24* GLUC 95 -- 95 ANION 8* -- 9 CA 8.2* -- 8.1* WBC 9.01 10.83 -- HB 8.0* 8.9* -- HCT 24.5* 27.3* -- PLT 236 224 -- Exam: GENERAL: No distress, Alert NEURO: AAOx3, speech clear and fluent, PERRL, EOMI. Sensation intact to light touch in BUE . Sensation decr in BLE below knee. Strength 5/5 in BUE/BLE. HEENT: normocephalic, atraumatic NECK/BACK: Lumbar incision c/d/i, covered by wound vac. Drain present with sanguinous drainage. LUNGS: Unlabored breathing CARDIAC: Regular rate and rhythm as above ABDOMEN: Soft, non-tender, non-distended EXTREMITIES: VERMA, No deformities, No edema SKIN: Skin color, texture, turgor normal, No rashes or lesions. ASSESSMENT AND PLAN: Active Hospital Problems Diagnosis Date Noted - Spondylolisthesis, lumbar region 11/18/2020 Marcos Shelton is a 70 year old female POD#3 s/p hardware removal d/t wound infection with placement of wound vac and drain. - Neuro as above - Pain mgmt with caution d/t HoTN - Continue drain at this time. 50mL out overnight, 75mL out yesterday. Will check this afternoon if drain is suitable to remove. - ID following for wound infxn, abx - Still needs PICC line prior to d/c - Vanc sensitivities pending - Monitoring Cr, may need to switch abx d/t PCN allergy - Patient will be able to d/c with wound vac in place - Increase mobility - PT/OT SIGNATURE: Luis Miguel Snyder APRN.ADDISON PATIENT NAME: Marcos Shelton DATE: November 21, 2020 TIME: 10:07 AM Pager: [phone]04-01-2021 NoteHNO ID: [id number] Author: Ye Dobbs Service: Infectious Disease Author Type: Physician Type: Progress Notes Filed: 11/21/2020 5:53 PM Note Text: INFECTIOUS DISEASE CONSULT PROGRESS NOTE SERVICE DATE: 11/21/2020 SERVICE TIME: 9:39 AM Seen by me, the attending, at 1630 Subjective HPI: Marcos Shelton who is a 70 year old female with?chief complaint?of draining wound in the lumbar?area. She relates?episodes of vomiting and slurred speech that has been occurring for the past two years. She has?been given antibiotics for treatment during this time and relates that they never fixed the issue. For the past 8 months the?wound has been draining?and?she relates that she?has been sent to wound care and various other surgeons and medical dosimetrist with no relief. She finally presented to [facility] for surgical intervention of the issue on 11/18/20. Surgery was completed by Dr. Perez on 11/18 and soft tissue culturres were taken.? November 18 midday patient went to surgery where?A complex wound was found with there was a large phlegmon with pus which was debrided and drained. ?The found grossly signs of an epidural abscess extending from both sets of pedicle screws from L2 to the ileum and decide to remove all of the implanted hardware and the epidural abscess. ?According to the note entire hardware was removed. ?The infection was listed as extensive extending into the lateral gutters past the screw heads and even into the iliac regions bilaterally all phlegmon and abscesses were drained. INTERVAL HISTORY: This morning the patient was seated upright awake and AOx3. She denies any nausea, vomiting, diarrhea, shortness of breath, or chest pains. She admits to tolerating medications well. 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 States less pain today and gets around in the room Current Facility-Administered Medications Medication Dose Route Frequency - sodium chloride 0.9 % (flush) 10 mL (BD POSIFLUSH) 10 mL INTRAVENOUS q 12 H - sodium chloride 0.9 % (flush) 20 mL (BD POSIFLUSH) 20 mL INTRAVENOUS PRN - calcium carbonate 500 mg chewable tab(s) (TUMS) 500 mg ORAL TID PRN - atorvastatin 80 mg tab(s) (LIPITOR) 80 mg ORAL AT BEDTIME - vancomycin dosing and monitoring per pharmacy OTHER As Directed - acetaminophen 650 mg tab(s) (TYLENOL) 650 mg ORAL q 4 H PRN - montelukast 10 mg tab(s) (SINGULAIR) 10 mg ORAL DAILY - temazepam 30 mg cap(s) (RESTORIL) 30 mg ORAL AT BEDTIME - metoprolol tartrate (short acting) 25 mg tab(s) (LOPRESSOR) 25 mg ORAL DAILY - furosemide 40 mg tab(s) (LASIX) 40 mg ORAL q 48 HR - levETIRAcetam 500 mg tab(s) (KEPPRA) 500 mg ORAL BID - hydrOXYzine HCl 25 mg tab(s) (ATARAX) 25 mg ORAL q 6 H PRN - NaCl 0.45% iv infusion 100 mL/hr INTRAVENOUS CONTINUOUS - oxyCODONE-acetaminophen 5-325 mg 1-2 tablet (PERCOCET) 1-2 tablet ORAL q 4 H PRN - HYDROmorphone 0.5-1 mg injection (DILAUDID) 0.5-1 mg INTRAVENOUS q 2 H PRN - cyclobenzaprine 10 mg tab(s) (FLEXERIL) 10 mg ORAL TID PRN - ondansetron 4 mg tab(s) (ZOFRAN) 4 mg ORAL q 6 H PRN Or - ondansetron (PF) 4 mg injection (ZOFRAN) 4 mg INTRAVENOUS q 6 H PRN - docusate sodium 100 mg cap(s) (COLACE) 100 mg ORAL BID - polyethylene glycol 3350 17 g packet (MIRALAX, GLYCOLAX) 17 g ORAL DAILY PRN - bisacodyl 10 mg suppository (DULCOLAX) 10 mg RECTAL DAILY PRN - pantoprazole DR 40 mg tab(s) (PROTONIX) 40 mg ORAL DAILY (6 AM) Active Antimicrobials (From admission, onward) Start Stop 11/19/20 1200 vancomycin dosing and monitoring per pharmacy OTHER, DIRECTED -- POD 3 atb Objective PHYSICAL EXAM: BP 115/68 Pulse 85 Temp (Src) 97.9 (Oral) Resp 16 Ht 5' 4.016 (1.63m) Wt 186 lb 8.2 oz (84.6kg) SpO2 98% BMI 32.00 kg/(m2). O2 Therapy: Room Air Temp last 24 hours: Temp (24hrs), Av.1 ?C (98.8 ?F), Min:36.3 ?C (97.3 ?F), Max:38.2 ?C (100.8 ?F) GENERAL APPEARANCE: Patient in no acute distress, well appearing. BACK: Wound Vac with dressing midline lumbar area. LUNGS: Normal breath sounds, clear to auscultation, no wheezes, or crackles. HEART: Regular with 2/6 systolic murmur which is old per patient. EXTREMITIES: No edema or tenderness. NEURO: Awake, alert and oriented x3, no involuntary motions. Leg strength 5/5. SKIN: no drug rash. Lines, Drains, and Airways Line Peripheral 11/21/20 0337 Short Right Forearm 20 Gauge <1 day Drain Drain/Tube 11/18/20 Hemovac 3 days DATA: Diagnostic Tests Reviewed for Today's Visit: Most recent labs and imaging results. WBC Date Value Ref Range Status 11/21/2020 9.01 3.70 - 11.00 k/uL Final 08/27/2020 9.27 3.70 - 11.00 k/uL Final Creatinine Date Value Ref Range Status 11/21/2020 2.18 (H) 0.58 - 0.96 mg/dL Final 08/27/2020 1.75 (H) 0.58 - 0.96 mg/dL Final Estimated Creatinine Clearance: 26 mL/min (A) (based on SCr of 2.18 mg/dL (H)). 2 operative cultures with MR urbina (more content not included)...[facility]03-31-2021 NoteHNO ID: [id number] Author: Yadira (Ren) REN Fair Service: Care Management Author Type: Registered Nurse Type: Care Mgt Progress Note Filed: 11/20/2020 3:44 PM Note Text: CARE MANAGEMENT PROGRESS NOTE SERVICE DATE: 11/20/2020 SERVICE TIME: 1540 LOS: 2 days . Met with pt and spouse in room, discussed HIP and DATABASE ADMINISTRATOR, informed them [facility] are able to provide services for home infusion. Pt has a Prevana disposable wound vac at bedside, she is currently on a KCI pump in the hospital. Pt will need a PICC line prior to discharge home, pt is aware and agreeable to discharge plan. SIGNATURE: Yadira Fair RN PATIENT NAME: Marcos Shelton DATE: November 20, 2020 TIME: 3:41 PM PAGER/CONTACT #: [phone]21 NoteHNO ID: [id number] Author: Ye Dobbs Service: Infectious Disease Author Type: Physician Type: Progress Notes Filed: 11/20/2020 3:46 PM Note Text: INFECTIOUS DISEASE CONSULT PROGRESS NOTE SERVICE DATE: 11/20/2020 SERVICE TIME: 10:30 AM Patient seen with the student at 11:30 AM Subjective INTERVAL HISTORY: Marcos Chika Cat who is a 70 year old female with chief complaint of draining wound in the lumbar area. She relates episodes of vomiting and slurred speech that has been occurring for the past two years. She has been given antibiotics for treatment during this time and relates that they never fixed the issue. For the past 8 months the wound has been draining and she relates that she has been sent to wound care and various other surgeons and medical dosimetrist with no relief. She finally presented to [facility] for surgical intervention of the issue on 11/18/20. Surgery was completed by Dr. Perez on 11/18 and soft tissue culturres were taken. November 18 midday patient went to surgery where A complex wound was found with there was a large phlegmon with pus which was debrided and drained. The found grossly signs of an epidural abscess extending from both sets of pedicle screws from L2 to the ileum and decide to remove all of the implanted hardware and the epidural abscess. According to the note entire hardware was removed. The infection was listed as extensive extending into the lateral gutters past the screw heads and even into the iliac regions bilaterally all phlegmon and abscesses were drained. This morning the patient wast awake and AOx3. She denies any nausea, vomiting, diarrhea, chest pains, or shortness of breath. She admits to tolerating all medications well. Her and her are agreeable to PICC line knowing that long-term antibiotics are needed Current Facility-Administered Medications Medication Dose Route Frequency - atorvastatin 80 mg tab(s) (LIPITOR) 80 mg ORAL AT BEDTIME - vancomycin dosing and monitoring per pharmacy OTHER As Directed - acetaminophen 650 mg tab(s) (TYLENOL) 650 mg ORAL q 4 H PRN - montelukast 10 mg tab(s) (SINGULAIR) 10 mg ORAL DAILY - temazepam 30 mg cap(s) (RESTORIL) 30 mg ORAL AT BEDTIME - metoprolol tartrate (short acting) 25 mg tab(s) (LOPRESSOR) 25 mg ORAL DAILY - furosemide 40 mg tab(s) (LASIX) 40 mg ORAL q 48 HR - levETIRAcetam 500 mg tab(s) (KEPPRA) 500 mg ORAL BID - hydrOXYzine HCl 25 mg tab(s) (ATARAX) 25 mg ORAL q 6 H PRN - NaCl 0.45% iv infusion 100 mL/hr INTRAVENOUS CONTINUOUS - oxyCODONE-acetaminophen 5-325 mg 1-2 tablet (PERCOCET) 1-2 tablet ORAL q 4 H PRN - HYDROmorphone 0.5-1 mg injection (DILAUDID) 0.5-1 mg INTRAVENOUS q 2 H PRN - cyclobenzaprine 10 mg tab(s) (FLEXERIL) 10 mg ORAL TID PRN - ondansetron 4 mg tab(s) (ZOFRAN) 4 mg ORAL q 6 H PRN Or - ondansetron (PF) 4 mg injection (ZOFRAN) 4 mg INTRAVENOUS q 6 H PRN - docusate sodium 100 mg cap(s) (COLACE) 100 mg ORAL BID - polyethylene glycol 3350 17 g packet (MIRALAX, GLYCOLAX) 17 g ORAL DAILY PRN - bisacodyl 10 mg suppository (DULCOLAX) 10 mg RECTAL DAILY PRN - pantoprazole DR 40 mg tab(s) (PROTONIX) 40 mg ORAL DAILY (6 AM) Active Antimicrobials (From admission, onward) Start Stop 11/19/20 1200 vancomycin dosing and monitoring per pharmacy OTHER, DIRECTED -- POD #2.5 antibiotics Objective PHYSICAL EXAM: BP 113/40 Pulse 78 Temp (Src) 98.2 (Oral) Resp 16 Ht 5' 4.016 (1.63m) Wt 186 lb 8.2 oz (84.6kg) SpO2 99% BMI 32.00 kg/(m2). O2 Therapy: Room Air Temp last 24 hours: Temp (24hrs), Av ?C (98.6 ?F), Min:36.8 ?C (98.2 ?F), Max:37.4 ?C (99.3 ?F) GENERAL APPEARANCE: Patient in no acute distress, well appearing. BACK: Wound Vac with dressing midline lumbar area. Dressing is clean and dry. LUNGS: Normal breath sounds, clear to auscultation, no wheezes, or crackles. Heart regular with 2/6 systolic murmur which is old per the patient ABDOMEN: Soft, non tender, no palpable masses. EXTREMITIES: No edema or tenderness. NEURO: Awake, alert and oriented x3, no involuntary motions. Skin without drug rash Lines, Drains, and Airways Line Peripheral 11/19/202035 Short Right Forearm 22 Gauge <1 day Drain Drain/Tube 11/18/20 Hemovac 2 days DATA: Diagnostic Tests Reviewed for Today's Visit: Most recent labs and imaging results. Lab Results Component Value Date WBC 10.83 11/20/2020 WBC 10.11 11/07/2020 WBC 9.27 08/27/2020 WBC 7.79 05/07/2020 WBC 8.92 04/23/2020 WBC 7.82 03/26/2020 Creatinine Date Value Ref Range Status 11/20/2020 2.24 (H) 0.58 - 0.96 mg/dL Final 11/07/2020 1.74 (H) 0.58 - 0.96 mg/dL Final 08/27/2020 1.75 (H) 0.58 - 0.96 mg/dL Final 05/07/2020 1.47 (H) 0.58 - 0.96 mg/dL Final 01/01/2020 1.48 (H) 0.58 - 0.96 mg/dL Final 04/26/2018 2.12 (H) 0.50 - 0.90 mg/dL Final Estimated Creatinine Clearance: 25.3 mL/min (A) (based on SCr of 2.24 mg/dL (H)). 2 operative cultures with sta (more content not included)...[facility]03-31-2021 NoteHNO ID: [id number] Author: Zay Zhang Service: Hospital Medicine Author Type: Physician Type: Progress Notes Filed: 11/20/2020 11:57 AM Note Text: Hospital Medicine consult progress Note Patient Name: Marcos Shelton Admission Date: 11/18/2020 Reason for Visit: Hypertension, medical management IMPRESSION AND PLAN: Active Hospital Problems Diagnosis - Spondylolisthesis, lumbar region 1. 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 2. Acute kidney injury on chronic kidney disease stage III with creatinine up to 2.2, baseline is 1.5, continue with IV fluid and monitor low blood pressure as needed check BMP in the morning. 3. Seizure controlled on Keppra. 4. Epidural abscess status post surgery on 11/18/2020, antibiotic is managed by infection disease. 5. Nonhealing lumbar back wound postop day #2, Managed by neuro surgery and wound care. 6. Anemia of chronic kidney disease hemoglobin seem to be stable we will continue to monitor. 7. Chronic GERD with Callaway's esophagus continue PPI. Patient Checklist Prophylaxis: VTE - Yes Code Status: Code Status: Not on file Disposition: Per primary team Zay Zhang MD Interval History: Patient was seen and examined for hypertension blood pressure was on the lower side earlier this morning but started to improve continue with IV fluid, patient denies any fever, chills, chest pain, having low back pain which is expected. Hemoglobin is 8.9 creatinine is up to 2.2 so we will check blood work in the morning. PERTINENT ROS: Temp Av ?C (98.6 ?F) Min: 36.8 ?C (98.2 ?F) Max: 37.4 ?C (99.3 ?F) Pulse Av.2 Min: 76 Max: 84 No data recorded Cuff BP Min: 98/58 Max: 113/40 Pain Level: 10 PHYSICAL EXAM: BP (!) 113/40 Pulse 78 Temp 36.8 ?C (98.2 ?F) (Oral) Resp 16 Ht 162.6 cm (5' 4.02) Wt 84.6 kg (186 lb 8.2 oz) SpO2 99% BMI 32.00 kg/m? PHYSICAL EXAMINATION: General appearance: Patient is sitting in bed in no acute respiratory distress. Awake, alert, oriented *3. Skin: Normal temperature, no ecchymosis. Lungs: Good air entry. No wheezing, rhonchi, rales, no use of accessory respiratory muscles. Heart: RRR, normal s1s2, no murmurs Abdomen: Positive for bowel sounds, soft abdomen, non-tender. Extremities: No pitting edema bilateral legs. MEDICATIONS: rosuvastatin (CRESTOR) 40 mg tablet Take 40 mg by mouth once daily. levETIRAcetam (KEPPRA) 500 mg tablet Take 500 mg by mouth twice daily. cholecalciferol (VITAMIN D-3) 5,000 unit tab Take 5,000 Units by mouth once daily. calcitriol (ROCALTROL) 0.25 mcg capsule Take 0.25 mcg by mouth once daily. hydrOXYzine HCl (ATARAX) 25 mg tablet Take 25 mg by mouth every 6 hours as needed. furosemide (LASIX) 40 mg tablet Take 40 mg by mouth every 48 hours. omeprazole 40 mg capsule Take 40 mg by mouth once daily. metoprolol tartrate, short acting, (LOPRESSOR) 25 mg tablet Take 25 mg by mouth once daily. temazepam 30 mg cap Take 30 mg by mouth daily at bedtime. montelukast sodium(SINGULAIR 10 MG TAB) take one tablet by mouth daily VITAMIN B-6 100 mg tablet take 1 tablet by mouth once daily Multivitamin with Iron-Mineral tab Take 1 tablet by mouth once daily. linaCLOtide (LINZESS) 290 mcg capsule Take 290 mcg by mouth as needed. cyanocobalamin, vitamin B-12, (VITAMIN B-12 INJECTION) by INJECTION(UNSPECIFIED PARENTERAL ROUTES) route once every month. aspirin, enteric coated 81 mg EC tablet Take 81 mg by mouth once daily. NITROGLYCERIN 0.4 MG SUBLINGUAL TAB Dissolve under the tongue every 5 minutes as needed. Usual dose for angina is 1 tablet every 5 minutes for maximum of 3 doses in 15 minutes. ALBUTEROL 90 MCG/ACTUATION AEROSOL INHALER Inhale 1-2 Puffs as instructed every 4 hours as needed. SHAKE WELL BEFORE USING Current Facility-Administered Medications Medication Dose Route Frequency - montelukast 10 mg tab(s) (SINGULAIR) 10 mg ORAL DAILY - temazepam 30 mg cap(s) (RESTORIL) 30 mg ORAL AT BEDTIME - metoprolol tartrate (short acting) 25 mg tab(s) (LOPRESSOR) 25 mg ORAL DAILY - furosemide 40 mg tab(s) (LASIX) 40 mg ORAL q 48 HR - levETIRAcetam 500 mg tab(s) (KEPPRA) 500 mg ORAL BID - hydrOXYzine HCl 25 mg tab(s) (ATARAX) 25 mg ORAL q 6 H PRN - NaCl 0.45% iv infusion 100 mL/hr INTRAVENOUS CONTINUOUS - oxyCODONE-acetaminophen 5-325 mg 1-2 tablet (PERCOCET) 1-2 tablet ORAL q 4 H PRN - HYDROmorphone 0.5-1 mg injection (DILAUDID) 0.5-1 mg INTRAVENOUS q 2 H PRN - cyclobenzaprine 10 mg tab(s) (FLEXERIL) 10 mg ORAL TID PRN - ondansetron 4 mg tab(s) (ZOFRAN) 4 mg ORAL q 6 H PRN Or - ondansetron (PF) 4 mg injection (ZOFRAN) 4 mg INTRAVENOUS q 6 H PRN - docusate sodium 100 mg cap(s) (COLACE) 100 mg ORAL BID - polyethylene glycol 3350 17 g packet (MIRALAX, GLYCO (more content not included)...[facility]03-31-2021 NoteHNO ID: [id number] Author: Geovanna Key) MARILYN Amaro Service: Neurosurgery Author Type: Physician Territory Representative Type: Progress Notes Filed: 11/20/2020 12:00 PM Note Text: Neurosurgery Progress Note SERVICE DATE: 11/20/2020 SUBJECTIVE: Dozing but easily arousable; c/o back pain /10 currently; briefly ambulated yesterday with therapy; voiding and eating. OBJECTIVE: Vitals: Temp (24hrs), Av ?C (98.6 ?F), Min:36.8 ?C (98.2 ?F), Max:37.4 ?C (99.3 ?F) BP (!) 113/40 Pulse 78 Temp 36.8 ?C (98.2 ?F) (Oral) Resp 16 Ht 162.6 cm (5' 4.02) Wt 84.6 kg (186 lb 8.2 oz) SpO2 99% BMI 32.00 kg/m? O2 Therapy: Room Air IANDO: Date 11/19/20 07 - 11/20/20 0659 11/20/20 0700 - 11/21/20 0659 Shift 9774-5376 9812-5730 4454-2829 24 Hour Total 9750-0012 3715-2482 5906-5217 24 Hour Total INTAKE Shift Total OUTPUT Urine Urine Not Saved. 2 x 1 x 2 x 5 x Tubes 100 100 200 Drain/Tube Output (Drain/Tube 11/18/20 Hemovac) 100 100 200 Shift Total 100 100 200 Weight (kg) 84.6 84.6 84.6 84.6 84.6 84.6 84.6 84.6 MEDICATIONS Current Facility-Administered Medications Medication Dose Route Frequency - atorvastatin 80 mg tab(s) (LIPITOR) 80 mg ORAL AT BEDTIME - vancomycin dosing and monitoring per pharmacy OTHER As Directed - acetaminophen 650 mg tab(s) (TYLENOL) 650 mg ORAL q 4 H PRN - montelukast 10 mg tab(s) (SINGULAIR) 10 mg ORAL DAILY - temazepam 30 mg cap(s) (RESTORIL) 30 mg ORAL AT BEDTIME - metoprolol tartrate (short acting) 25 mg tab(s) (LOPRESSOR) 25 mg ORAL DAILY - furosemide 40 mg tab(s) (LASIX) 40 mg ORAL q 48 HR - levETIRAcetam 500 mg tab(s) (KEPPRA) 500 mg ORAL BID - hydrOXYzine HCl 25 mg tab(s) (ATARAX) 25 mg ORAL q 6 H PRN - NaCl 0.45% iv infusion 100 mL/hr INTRAVENOUS CONTINUOUS - oxyCODONE-acetaminophen 5-325 mg 1-2 tablet (PERCOCET) 1-2 tablet ORAL q 4 H PRN - HYDROmorphone 0.5-1 mg injection (DILAUDID) 0.5-1 mg INTRAVENOUS q 2 H PRN - cyclobenzaprine 10 mg tab(s) (FLEXERIL) 10 mg ORAL TID PRN - ondansetron 4 mg tab(s) (ZOFRAN) 4 mg ORAL q 6 H PRN Or - ondansetron (PF) 4 mg injection (ZOFRAN) 4 mg INTRAVENOUS q 6 H PRN - docusate sodium 100 mg cap(s) (COLACE) 100 mg ORAL BID - polyethylene glycol 3350 17 g packet (MIRALAX, GLYCOLAX) 17 g ORAL DAILY PRN - bisacodyl 10 mg suppository (DULCOLAX) 10 mg RECTAL DAILY PRN - pantoprazole DR 40 mg tab(s) (PROTONIX) 40 mg ORAL DAILY (6 AM) Labs: Recent Labs 11/20/2030811/20/20 030 NA -- 135* K -- 4.0 CHLOR -- 103 CO2 -- 23 BUN -- 22* CREAT -- 2.24* GLUC -- 95 ANION -- 9 CA -- 8.1* WBC 10.83 -- HB 8.9* -- HCT 27.3* -- PLT 224 -- Exam: GENERAL: Awake and alert; NAD; cooperative; pleasant NEURO: Orientedx3; speech clear and fluent; msp grossly intact HEENT: Normocephalic; atraumatic LUNGS: Unlabored breathing NECK/BACK: Incision with wound vac and hemovac with 100cc out through the night ASSESSMENT AND PLAN: Active Hospital Problems Diagnosis Date Noted - Spondylolisthesis, lumbar region 11/18/2020 70 year old female wound infection - s/p IANDD with hardware removal and placement of wound vac POD#2 - neuro stable - pain control - low BP so using caution with narcotics - PT/OT - increase mobility - continue drain today with wound vac ? SIGNATURE: MARILYN Ellis PATIENT NAME: Marcos Shelton DATE: November 20, 2020 TIME: 11:54 AM Pager: [phone]03-30-2021 NoteHNO ID: [id number] Author: Glory Diaz (Sw) Service: Care Management Author Type: Environmental Monitoring Specialist Type: Care Mgt Initial Assessment Filed: 11/19/2020 2:51 PM Note Text: CARE MANAGEMENT: ASSESSMENT AND DISCHARGE PLAN SERVICE DATE: November 19, 2020 SERVICE TIME: 1430 PRIMARY CARE PHYSICIAN: Bell Maher MD ADMISSION STATUS: Inpatient Needs Prior to Discharge: To Be Determined;Home Care Order;IV Antibiotics MEDICAL: MEDICARE A AND B 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 Last discharge within 30 days: No Advance Directive: Current Advance Directive: None Program Architect Attempted to Assist with AD Completion: Yes Action: Patient Unwilling Health LiteracyHow often do you need to have someone help you when you read instructions, pamphlets, or other written material from your doctor or pharmacy? : 1 - Never How confident are you filling out medical forms by yourself?: 1 - Extremely If Patient scores > 3 on either question, the following interventions were put into place:: Patient did not score > 3 on either question. Baseline Mental Status Prior to this Illness what was the patient's Baseline Mental Status?: Alert AND Oriented Prior to this illness, has anyone described the patient having any of the following behaviors?: Not Applicable Relationship of the informant to the patient:: Self;Spouse Functional Status: Independent Does Patient Currently Receive Any Community Services or Home Care?: None Equipment Prior to Admission: Tub bench/chair;Walker;Wheelchair;Elevated toilet seat;Rollator Scooter Has the Patient Been in a Long Term Facility in the Past 30 days?: No SOCIAL: Living Arrangements: Home Lives With: Spouse;Daughter;Other: See Comment (grandchild) Financial Resources: Retired Primary Contact: Extended Emergency Contact Information Primary Emergency Contact: FAUSTO SHELTON Address: [id number] [place] [id number] [place] Relation: Spouse Supportive Patient Contact:: Yes Contact Resources: Family Caregiver AssessmentCaregiver is ready, willing and able to meet the patient's needs as recommended by the inter-professional team:: Yes Does the patient have an acute stroke diagnosis, or has the patient had a stroke during this admission?: No Patient's transition needs and plan for meeting these needs: Plan for home with IVAB and home care Patient's perception of need for this admission: Back pain Medication Adherance I am convinced of the importance of my prescription medication: 0 - Agree Completely I worry that my prescription medication will do more harm than good to me : 0 - Disagree Completely I feel financially burdened by my [id number] expenses for my prescription medication:: 0 - Disagree Completely Risk Score: 0 Patient is categorized as: Low risk < 2 Are you interested in bedside delivery of your medications? No Is Patient Psychosocially Complex?: No ASSESSMENT AND PLAN: Medical Needs: Medical Needs: Two or more chronic diseases;Wound Care - active or potential;IV Antibiotics Psychosocial Needs: Psychosocial Needs: None FREEDOM OF CHOICE EXPLAINED: [place] of Choice Given: Yes Level of Care Discussed: Home Care Financial Disclosure Provided: Yes Financial Disclosure Comments: Preferred partnership discussed Provider List: Home Care;Home Care Pharmacy Provider list within the patient's requested geographic area shared with the patient/family: No Reason: Pt/ spouse delcined list, no preferance. POTENTIAL TRANSITION PLANS Home;Home Care;Home Care Pharmacy;Home OT/PT Met with pt and spouse in the room. Pt from home with spouse, daughter and grandchild. Pt is IND, +DME, +PCP, +Rx coverage. Pt has stairs in the home which she is able to avoid using. Rx coverage at [facility]. Pt is retired and does not drive- spouse assists with transport. Pt currently has wound vac placed. Anticipate pt will need IVAB, referral to [facility]/ [facility]. Pt will also need home PT. Pt states spouse had home IVAB in the past therefore they are familiar with this. Spouse confirms he can be the teachable adult. Pt will also need home PT. Pt with no preference if [facility] cannot accept. SIGNATURE: JESU Tompkins PATIENT NAME: Marcos Shelton DATE: November 19, 2020 TIME: 2:47 PM PAGER/CONTACT #: [phone] NoteHNO ID: [id number] Author: Geovanna Key) MARILYN Amaro Service: Neurosurgery Author Type: Physician Territory Representative Type: Progress Notes Filed: 11/19/2020 11:20 AM Note Text: Neurosurgery Progress Note SERVICE DATE: 11/19/2020 SUBJECTIVE: Low BP overnight. Awake and alert in bed, c/o pain, relatively controlled with meds. Has eaten and has voided in bedpan. Has not ambulated yet - therapy to start soon. OBJECTIVE: Vitals: Temp (24hrs), Av.7 ?C (98.1 ?F), Min:36 ?C (96.8 ?F), Max:37.7 ?C (99.9 ?F) BP (!) 98/45 Pulse 76 Temp 36.6 ?C (97.9 ?F) (Oral) Resp 16 Ht 162.6 cm (5' 4.02) Wt 84.6 kg (186 lb 8.2 oz) SpO2 100% BMI 32.00 kg/m? O2 Therapy: Room Air IANDO: Date 11/18/20 07 - 11/19/20 0659 11/19/20 07 - 11/20/20 0659 Shift 0987-7255 3335-1140 4105-5721 24 Hour Total 1856-1528 6570-2041 7665-6974 24 Hour Total INTAKE IV 2200 900 3100 Volume (mL) (lactated ringers infusion) 2000 2000 Volume (mL) (lactated ringers infusion) 900 900 Volume (mL) (vancomycin iv piggyback 1 g in D5W 200 mL (VANCOCIN)) 200 200 Shift Total 2200 900 3100 OUTPUT Urine Urine Not Saved. 2 x 2 x Tubes 270 100 370 100 100 Drain/Tube Output (Drain/Tube 11/18/20 Hemovac) 270 100 370 100 100 Blood 100 100 Estimated Blood loss 100 100 Shift Total 100 270 100 470 100 100 Weight (kg) 84.6 84.6 84.6 84.6 84.6 84.6 84.6 MEDICATIONS Current Facility-Administered Medications Medication Dose Route Frequency - montelukast 10 mg tab(s) (SINGULAIR) 10 mg ORAL DAILY - temazepam 30 mg cap(s) (RESTORIL) 30 mg ORAL AT BEDTIME - metoprolol tartrate (short acting) 25 mg tab(s) (LOPRESSOR) 25 mg ORAL DAILY - furosemide 40 mg tab(s) (LASIX) 40 mg ORAL q 48 HR - levETIRAcetam 500 mg tab(s) (KEPPRA) 500 mg ORAL BID - hydrOXYzine HCl 25 mg tab(s) (ATARAX) 25 mg ORAL q 6 H PRN - NaCl 0.45% iv infusion 100 mL/hr INTRAVENOUS CONTINUOUS - oxyCODONE-acetaminophen 5-325 mg 1-2 tablet (PERCOCET) 1-2 tablet ORAL q 4 H PRN - HYDROmorphone 0.5-1 mg injection (DILAUDID) 0.5-1 mg INTRAVENOUS q 2 H PRN - cyclobenzaprine 10 mg tab(s) (FLEXERIL) 10 mg ORAL TID PRN - ondansetron 4 mg tab(s) (ZOFRAN) 4 mg ORAL q 6 H PRN Or - ondansetron (PF) 4 mg injection (ZOFRAN) 4 mg INTRAVENOUS q 6 H PRN - docusate sodium 100 mg cap(s) (COLACE) 100 mg ORAL BID - polyethylene glycol 3350 17 g packet (MIRALAX, GLYCOLAX) 17 g ORAL DAILY PRN - vancomycin iv piggyback 1 g in D5W 200 mL (VANCOCIN) 1 g INTRAVENOUS q 12 HR - pantoprazole DR 40 mg tab(s) (PROTONIX) 40 mg ORAL DAILY (6 AM) Labs: No results for input(s): NA, K, CHLOR, CO2, BUN, CREAT, GLUC, ANION, CA, MG, P, ALB, AST, ALT, ALKPHOS, TBILI, DBILI, PHOSINTL, WBC, HB, HCT, PLT, LACT, INR, PH, PCO2, PO2, BE, HCO3 in the last 72 hours. Invalid input(s): LISDBC Exam: GENERAL: Awake and alert; cooperative; pleasant NEURO: Orientedx3; speech clear and fluent; msp grossly intact and equal HEENT: Normocephalic; atraumatic LUNGS: Unlabored breathing NECK/BACK: Incision with wound vac intact - hemovac present with 100cc out this am - 370cc since surgery EXTREMITIES: No deformities ASSESSMENT AND PLAN: Active Hospital Problems Diagnosis Date Noted - Spondylolisthesis, lumbar region 11/18/2020 70 year old female wound infection - s/p IANDD with hardware removal and placement of wound vac POD#1 - neuro stable - pain control - low BP so using caution with narcotic - PT/OT - increase mobility - continue drain today with wound vac SIGNATURE: MARILYN Ellis PATIENT NAME: Marcos Shelton DATE: November 19, 2020 TIME: 11:14 AM Pager: [phone] [facility] Center03-30-2021 NoteHNO ID: [id number] Author: Ye Dobbs Service: Infectious Disease Author Type: Physician Type: Progress Notes Filed: 11/19/2020 11:48 AM Note Text: INFECTIOUS DISEASE INITIAL CONSULT NOTE SERVICE DATE: 11/19/2020 SERVICE TIME: 10:16 AM Seen by attending at 1115 with the student REASON FOR CONSULT: Draining lumbar wound debridement and surgical staff somnolent Subjective Patient is seen at the request of Dr. Sameer Perez for my opinion regarding treatment of draining lumbar wound. My final recommendations will be communicated back to the requesting physician by way of copy of this note or shared electronic medical record. HPI: Marcos Shelton who is a 70 year old female with chief complaint of draining wound in the lumbar area. She relates episodes of vomiting and slurred speech that has been occurring for the past two years. She has been given antibiotics for treatment during this time and relates that they never fixed the issue. For the past 8 months the wound has been draining and she relates that she has been sent to wound care and various other surgeons and medical dosimetrist with no relief. She finally presented to [facility] for surgical intervention of the issue on 11/18/20. Surgery was completed by Dr. Perez on 11/18 and soft tissue culturres were taken. November 18 midday patient went to surgery where A complex wound was found with there was a large phlegmon with pus which was debrided and drained. The found grossly signs of an epidural abscess extending from both sets of pedicle screws from L2 to the ileum and decide to remove all of the implanted hardware and the epidural abscess. According to the note entire hardware was removed. The infection was listed as extensive extending into the lateral gutters past the screw heads and even into the iliac regions bilaterally all phlegmon and abscesses were drained. RECENT TRAVEL: [place] WATER SUPPLY: [employer], admits to drinking bottled water. FAMILY MEMBERS CURRENTLY LIVING IN THE HOME: , great grandson, granddaughter PETS IN THE HOME: There are dogs in the home (chialecahua, austalian fountain), cockatoo. PAST MEDICAL HISTORY Diagnosis Date - Abdominal pain, right upper quadrant - Acid reflux - Anemia associated with chronic renal failure 01/02/2020 - Asthma - Callaway's esophagus - CAD (coronary artery disease) - Constipation - Diverticulitis - Early satiety - Essential hypertension, benign - Fatigue - Heart disease - Hemorrhoids - Loss of weight - Mitral valve disorders(424.0) with prolapse, needs abx prophylaxis - Other and unspecified hyperlipidemia - PVD (peripheral vascular disease) (HCC) - Rheumatoid arthritis(714.0) - Seizure (HCC) - Wound dehiscence PAST SURGICAL HISTORY Procedure Laterality Date - APPENDECTOMY - BACK SURGERY HX 2010 lami and fusion L45 for spondylolisthesis - CC PTCA STENT 2007, 2009 - COLONOS W/REM POLYP SNARE 09/05/09 repeat in - EXCIS BREAST LESION rt - PAST SURGICAL HISTORY OF Left foot - PAST SURGICAL HISTORY OF Right shoulder - PAST SURGICAL HISTORY OF Right hip surgery - REVASCULARIZATION ILIAC ART ANGIOP EA IPSI VSL bilateral - REVISE MEDIAN N/CARPAL TUNNEL SURG x 2 Carpal tunnel decomp - TOTAL ABDOM HYSTERECTOMY Hysterectomy, AMALIA Social History Tobacco Use - Smoking status: Former Smoker Packs/day: 1.00 Years: 10.00 Pack years: 10.00 Types: Cigarettes Quit date: 07/09/1997 Years since quittin.3 - Smokeless tobacco: Never Used Vaping Use - Vaping Use: Never used Substance Use Topics - Alcohol use: No - Drug use: No FAMILY HISTORY Problem Relation Age of Onset - Cancer Mother lung - Heart Mother - Hypertension Father - Heart Father - Prostate Cancer Father - Diabetes Brother - Diabetes Paternal Grandmother - Hypertension Paternal Grandmother Reviewed with patient on 11/19/20 There is no immunization history on file for this patient. Antibiotic allergies? Penicillin remotely had her pass out when she went to go to the bathroom but she has had amoxicillin since then without problems; does not recognize cephalosporins; Nitrofurantoin and sulfa are listed but the patient was having a problem standing up so we were not able to ask what the reactions were Current Facility-Administered Medications Medication Dose Route Frequency - montelukast 10 mg tab(s) (SINGULAIR) 10 mg ORAL DAILY - temazepam 30 mg cap(s) (RESTORIL) 30 mg ORAL AT BEDTIME - metoprolol tartrate (short acting) 25 mg tab(s) (LOPRESSOR) 25 mg ORAL DAILY - furosemide 40 mg tab(s) (LASIX) 40 mg ORAL q 48 HR - levETIRAcetam 500 mg tab(s) (KEPPRA) 500 mg ORAL BID - hydrOXYzine HCl 25 mg tab(s) (ATARAX) 25 mg ORAL q 6 H PRN - NaCl 0.45% iv infusion 100 mL/hr INTRAVENOUS CONTINUOUS - oxyCODONE-acetaminophen 5-325 mg 1-2 tablet (PERCOCET) 1-2 tablet ORAL q 4 H PRN (more content not included)...[facility]03-30-2021 NoteHNO ID: [id number] Author: Cramen (Rn) REN Mckinnon Service: ? Author Type: Registered Nurse Type: Nursing Progress Note Filed: 11/19/2020 5:27 AM Note Text: Pts BP 109/50. Okay for 1 tab percocet per Monae Louis NP.[facility]03-29-2021 NoteHNO ID: [id number] Author: Reyna Dominguez (Aprn Crna) Service: Anesthesiology Author Type: Nurse Nailing Machine Feeder Type: Anesthesia Procedure Notes Filed: 11/18/2020 11:39 AM Note Text: ANESTHESIOLOGY PROCEDURE NOTE Airway General Information Procedure Start Time/Medication Administration: 11/18/2020 11:17 AM Patient location during procedure: OR Timeout Performed Pre-procedure: timeout performed Consent Obtained: Yes Patient identity confirmed: arm band and patient Staffing WOOD ROOM HAND: Reyna Dominguez (Aprn Crna) Performed by: LISA Indications and Patient Condition Preoxygenated: yes Patient position: sniffing Manual In-Line Stabilization: Yes Difficult Mask: Yes Indications for airway management: anesthesia and airway protection anesthesia circuit Method: asleep Cricoid Pressure: Yes Final Airway Details Final airway type: endotracheal airway Final Endotracheal Airway: ETT Cuffed: yes Successful intubation technique: direct laryngoscopy Endotracheal tube insertion site: oral Blade: Lizz Blade size: #4 ETT size (mm): 7.5 Measured from: lips Measurement (cm): 21 Placement verified by: capnometry Cormack-Lehane Classification: grade IIa - partial view of glottis Number of attempts at approach: 1 SIGNATURE: Reyna Dominguez APRN.CRNA PATIENT NAME: Marcos Shelton DATE: November 18, 2020 TIME: 11:38 AM CSN: [id number] NoteHNO ID: [id number] Author: Anne Moran Service: Anesthesiology Author Type: Nurse Practitioner Type: Progress Notes Filed: 11/08/2020 9:31 AM Note Text: Called Dr. Perez's office and spoke to Paulina who stated that they were asking for cardiac and medical clearance only and will fax them to [phone]. Shikha to follow [facility]03-12-2021 NoteHNO ID: [id number] Author: Sameer Perez Service: ? Author Type: Physician Type: Progress Notes Filed: 11/01/2020 9:35 AM Note Text: NEUROSURGERY FOLLOW UP OFFICE NOTE Sameer Perez MD Date of visit: November 01, 2020 Patient Name: Ms.Andra Chika Shelton Date of : 1950 Current Age: [age] year old Sex: female MRN/E# [id number] Last Office Visit: August 27, 2020 Chief Complaint: Patient presents with: Established Patient SUBJECTIVE: The patient returns today for evaluation and further planning regarding wound dehiscence. She has a history of a L2-S1 lumbar fusion in 2017 by an outside physician in [place]. She did well postoperative until 6 months ago when she noticed that she had developed an open wound with drainage around the incision site. She presented for evaluation in August 2020 after undergoing an MRI. This was reviewed and demonstrated a fluid collection ventral to the area. On exam the consistency of the wound was curious. It was uncertain why she developed this years following her surgical procedure. It was recommended that she be evaluated by plastic surgery for evaluation. She was evaluated by Dr. Cowan and Dr. Pulliam. Recommendation for IR drainage was reported by Dr. Pulliam and consideration for sclerotherapy. She underwent the procedure in late September 2020. The procedure note impression states That no fluid was able to be spontaneously aspirated despite sampling at multiple different sites. This suggested that the material present is congealed and not amendable to percutaneous drainage. She was referred back to wound care. The wound center stated that they are having a hard time packing this tunneled wound given how narrow it is. Recommendation is for a reexploration possible debridement. Today she states she continues to have discomfort at the wound site. It continues to drain and her is packing it at home. No new changes otherwise. She presents today for further discussion, evaluation and plan of care. Symptoms: Low back pain around wound/surgical incision PREVIOUS CONSERVATIVE TREATMENTS: Wound center PREVIOUS SURGERY: SURGERY #1: L2-S1 fusion per Dr.Olide Damian ([place]) 2017 PAIN EVALUATION 11/01/2020 0834 Pain Level: 2 Pain Location: Back-Lower Description: Aching;Stiffness Duration Units: Weeks Frequency: Intermittent Intervention: Medication;Relaxation PAST MEDICAL HISTORY Diagnosis Date - Abdominal pain, right upper quadrant - Acid reflux - Anemia associated with chronic renal failure 01/02/2020 - Asthma - Callaway's esophagus - CAD (coronary artery disease) - Constipation - Diverticulitis - Early satiety - Essential hypertension, benign - Fatigue - Heart disease - Hemorrhoids - Loss of weight - Mitral valve disorders(424.0) with prolapse, needs abx prophylaxis - Other and unspecified hyperlipidemia - PVD (peripheral vascular disease) (HCC) - Rheumatoid arthritis(714.0) PAST SURGICAL HISTORY Procedure Laterality Date - APPENDECTOMY - BACK SURGERY HX 2009 lami and fusion L45 for spondylolisthesis - CC PTCA STENT 2007, 2009 - COLONOS W/REM POLYP SNARE 09/05/09 repeat in - EXCIS BREAST LESION rt - PAST SURGICAL HISTORY OF Left foot - PAST SURGICAL HISTORY OF Right shoulder - PAST SURGICAL HISTORY OF Right hip surgery - REVASCULARIZATION ILIAC ART ANGIOP EA IPSI VSL bilateral - REVISE MEDIAN N/CARPAL TUNNEL SURG x 2 Carpal tunnel decomp - TOTAL ABDOM HYSTERECTOMY Hysterectomy, AMALIA FAMILY HISTORY Problem Relation Age of Onset - Cancer Mother lung - Heart Mother - Hypertension Father - Heart Father - Prostate Cancer Father - Diabetes Brother - Diabetes Paternal Grandmother - Hypertension Paternal Grandmother ALLERGIES Allergen Reactions - Macrobid [Nitrofura* - Penicillins - Sulfa (Sulfonamide * Unknown Current Outpatient Medications Medication Sig Dispense Refill - VITAMIN B-6 100 mg tablet take 1 tablet by mouth once daily 100 tablet 2 - polyethylene glycol 3350 (MIRALAX) 17 gram packet 17 g q 24 HR. Prn - hydrOXYzine HCl (ATARAX) 25 mg tablet Take 25 mg by mouth every 6 hours as needed. - furosemide (LASIX) 40 mg tablet Take 40 mg by mouth once daily. - linaCLOtide (LINZESS) 290 mcg capsule Take 290 mcg by mouth once daily. - omeprazole 40 mg capsule Take 40 mg by mouth once daily. - metoprolol tartrate, short acting, (LOPRESSOR) 25 mg tablet Take 25 mg by mouth once daily. - cyanocobalamin, vitamin B-12, (VITAMIN B-12 INJECTION) by INJECTION(UNSPECIFIED PARENTERAL ROUTES) route once every month. - rosuvastatin (CRESTOR) 20 mg tablet Take 20 mg by mouth once daily. - temazepam 30 mg cap Take 30 mg by mouth daily at bedtime. - aspirin, enteric coated 81 mg EC tablet Take 81 mg by mouth once daily. - montelukast sodium(SINGULAIR 10 MG TAB) take one tablet by mouth daily 0 - NITROGLYCERIN 0.4 MG SUB (more content not included)...[facility]02-05-2021 NoteHNO ID: [id number] Author: Michael Pulliam Service: ? Author Type: Physician Type: Progress Notes Filed: 09/27/2020 1:21 PM Note Text: PLASTIC SURGERY CONSULTATION Reason for Consultation: back wound Requesting Physician: Subjective HPI: Ms. Shelton is a 70 year old female underwent lumbar fusion L2- S1 in 2017 in [place].This was the 4th back surgery she had. She has 3 prior back surgeries before that. Starting 6 months ago she developed back wound that has been draining clear fluid. She was evaluated by Dr Perez for CSF leak. She had MRI and CT of the lumbar spine. Dr Perez did not think that she had a CSF leak . The read for the MRI states that there is a contained fluid collection at L4-S2 posterior to the central and left central thecal sac at L4 measuring 3.6cm x 2.6cm x 6cm. She denies any trauma, no fevers, no infection, no lower extremity symptoms. She has been managed with local wound care, prior trials antibiotics that were tried on different occasions with no affect. She had a prior NV. She had 3 cardiac stents placed in around 10 years ago. She also femoral artery stents bilaterally around 6 years ago. She mitral valve prolapse for which she gets prophylactic antibiotics before procedures. She has rheumatoid arthritis. She does not take any mediations for this. PAST MEDICAL HISTORY Diagnosis Date - Abdominal pain, right upper quadrant - Acid reflux - Anemia associated with chronic renal failure 01/02/2020 - Asthma - Callaway's esophagus - CAD (coronary artery disease) - Constipation - Diverticulitis - Early satiety - Essential hypertension, benign - Fatigue - Heart disease - Hemorrhoids - Loss of weight - Mitral valve disorders(424.0) with prolapse, needs abx prophylaxis - Other and unspecified hyperlipidemia - PVD (peripheral vascular disease) (HCC) - Rheumatoid arthritis(714.0) PAST SURGICAL HISTORY Procedure Laterality Date - APPENDECTOMY - BACK SURGERY HX 2009 lami and fusion L45 for spondylolisthesis - CC PTCA STENT 2007, 2009 - COLONOS W/REM POLYP SNARE 09/05/09 repeat in - EXCIS BREAST LESION rt - PAST SURGICAL HISTORY OF Left foot - PAST SURGICAL HISTORY OF Right shoulder - PAST SURGICAL HISTORY OF Right hip surgery - REVASCULARIZATION ILIAC ART ANGIOP EA IPSI VSL bilateral - REVISE MEDIAN N/CARPAL TUNNEL SURG x 2 Carpal tunnel decomp - TOTAL ABDOM HYSTERECTOMY Hysterectomy, AMALIA FAMILY HISTORY Problem Relation Age of Onset - Cancer Mother lung - Heart Mother - Hypertension Father - Heart Father - Prostate Cancer Father - Diabetes Brother - Diabetes Paternal Grandmother - Hypertension Paternal Grandmother Social History Tobacco Use - Smoking status: Former Smoker Packs/day: 1.00 Years: 10.00 Pack years: 10.00 Types: Cigarettes Quit date: 07/09/1997 Years since quittin.2 - Smokeless tobacco: Never Used Substance Use Topics - Alcohol use: No - Drug use: No (Not in a hospital admission) @IPMED@ Allergies As of Date: 09/27/2020 Allergen Noted Reaction MACROBID [NITROFURANTOIN MONOHYD/*02/18/2006 PENICILLINS 02/18/2006 SULFA (SULFONAMIDE ANTIBIOTICS) 06/27/2012 Unknown Fully Assessed 09/27/2020 Objective BP 156/60 Pulse 83 Ht 5' 4 (1.63m) Wt 160 lb (72.6kg) BMI 27.45 kg/(m2). General: no acute distress Pulm: Normal work of breathing on room air unlabored breathing Back: small puncate track in the lower lumbar area, unable to probe today, some macerated red skin but overall better quality skin than expected DATA: Imaging: MRI and CT images reviewed Laboratory: No new labs Impression/Recommendations 70 year old female with chronic back wound after multiple surgeries and a contained fluid collection at L4-S2. She has a persistent fluid collection that is likely either CSF or a seroma. She has seen Dr Perez who does not think it is a CSF leak. She has a very small punctate wound that I could not probe today. If the fluid collection resolves than I would expect the wound to resolve. Likewise if the fluid collection does not resolved neither will the wound. I would recommend IR drainage (send for beta-transferrin and cultures) and consider sclerotherapy if Dr Perez thinks this is appropriate. If she has a CSF leak diagnosed then I am happy to help with local muscle flap or tissue flap to help fill the area. Alteratively, if she is found to have a persistent seroma cavity despite drainage and sclerotherapy then I am happy to assist in excising the seroma cavity. She could also just need to have the tracked excised too. I spoke with Dr Perez and he will manage the IR drainage and whether or not sclerotherapy can be used (she will need to not have any evidence of a CSF leak). I am happy to see her back at any time. I did encourage her and her to keep this area as clean as possible. SIGNATURE: Michael (more content not included)...[facility]01-12-2021 NoteHNO ID: [id number] Author: Luis Miguel Sylvester Service: ? Author Type: Physician Type: Progress Notes Filed: 09/03/2020 3:50 PM Note Text: HPI: Patient is a 70 year old female that is referred by Dr. Perez for wound on back, specifically on the lower back, along incision from back surgery fusion in 2017, that has been present for 5 months. History elicited from patient. Patient has been treated with antibiotics, silver product from wound center, released her after 2 weeks, states they could not do anything else for her. They referred to neurosurgeon Dr. Perez, who referred here. HIGH RISK ASSESSMENT: No Nutritional, Functional or Safety concerns. Current Outpatient Medications Medication Sig - polyethylene glycol 3350 (MIRALAX) 17 gram packet 17 g q 24 HR. Prn - hydrOXYzine HCl (ATARAX) 25 mg tablet Take 25 mg by mouth every 6 hours as needed. - OXcarbazepine (TRILEPTAL) 150 mg tablet 300 mg twice daily. - furosemide (LASIX) 40 mg tablet Take 40 mg by mouth once daily. - pyridoxine, vitamin B6, (VITAMIN B-6) 100 mg tablet Take 1 tablet by mouth once daily. - levothyroxine (SYNTHROID) 50 mcg tablet Take 50 mcg by mouth once daily. - omeprazole 40 mg capsule Take 40 mg by mouth once daily. - metoprolol tartrate, short acting, (LOPRESSOR) 25 mg tablet Take 25 mg by mouth once daily. - cyanocobalamin, vitamin B-12, (VITAMIN B-12 INJECTION) by INJECTION(UNSPECIFIED PARENTERAL ROUTES) route once every month. - rosuvastatin (CRESTOR) 20 mg tablet Take 20 mg by mouth once daily. - temazepam 30 mg cap Take 30 mg by mouth daily at bedtime. - aspirin, enteric coated 81 mg EC tablet Take 81 mg by mouth once daily. - montelukast sodium(SINGULAIR 10 MG TAB) take one tablet by mouth daily - NITROGLYCERIN 0.4 MG SUBLINGUAL TAB as needed for chest pain - ALBUTEROL 90 MCG/ACTUATION AEROSOL INHALER Inhale 1-2 Puffs as instructed every 4 hours as needed. SHAKE WELL BEFORE USING - Multivitamin with Iron-Mineral tab Take 1 tablet by mouth once daily. (Patient not taking: Reported on 09/03/2020 ) - linaCLOtide (LINZESS) 290 mcg capsule Take 290 mcg by mouth once daily. No current facility-administered medications for this visit. PAST MEDICAL HISTORY Diagnosis Date - Abdominal pain, right upper quadrant - Acid reflux - Anemia associated with chronic renal failure 01/02/2020 - Asthma - Callaway's esophagus - CAD (coronary artery disease) - Constipation - Diverticulitis - Early satiety - Essential hypertension, benign - Fatigue - Heart disease - Hemorrhoids - Loss of weight - Mitral valve disorders(424.0) with prolapse, needs abx prophylaxis - Other and unspecified hyperlipidemia - PVD (peripheral vascular disease) (HCC) - Rheumatoid arthritis(714.0) PAST SURGICAL HISTORY Procedure Laterality Date - APPENDECTOMY - BACK SURGERY HX 2009 lami and fusion L45 for spondylolisthesis - CC PTCA STENT 2007, 2009 - COLONOS W/REM POLYP SNARE 09/05/09 repeat in - EXCIS BREAST LESION rt - PAST SURGICAL HISTORY OF Left foot - PAST SURGICAL HISTORY OF Right shoulder - PAST SURGICAL HISTORY OF Right hip surgery - REVASCULARIZATION ILIAC ART ANGIOP EA IPSI VSL bilateral - REVISE MEDIAN N/CARPAL TUNNEL SURG x 2 Carpal tunnel decomp - TOTAL ABDOM HYSTERECTOMY Hysterectomy, AMALIA Social History Tobacco Use - Smoking status: Former Smoker Packs/day: 1.00 Years: 10.00 Pack years: 10.00 Types: Cigarettes Quit date: 07/09/1997 Years since quittin.1 - Smokeless tobacco: Never Used Substance Use Topics - Alcohol use: No - Drug use: No History of Bleeding Disorder: No History of DVT/Pulmonary Embolism: No History of MRSA: No MRSA Infection History of Diabetes: No History of Sleep Apnea: Yes, uses her CPAP machine rarely History of HTN: Yes PHYSICAL EXAM: Marcos had back surgery in [place] 2017, fusion L2-S1 healed well after surgery then noticed a wound around surgical sight about 5 months ago. Wound is about 5 cm deep, wound center states they cannot do anything more for her. We referred her to [facility] [phone]. We will contact Dr. Perez to discuss case. Ht 162.6 cm (5' 4.02) Wt 76.7 kg (169 lb) BMI 28.99 kg/m? Wound on lower back. Size is 5 cm deep. APPEARANCE: Clean ODOR: Strong malodor WOUND DISCHARGE: clear and brown SURROUNDING SKIN: Negative for erythema BASE OF WOUND: PAIN AND TENDERNESS: No: 0 on a scale of 0 to 10 a #5 Luis Miguel Sylvester MD Scribe Attestation Statement Scribe Statement: I, True Franco, am scribing for, and in the presence of Luis Miguel Sylvester MD. Scribe: True Franco MA Clinician Attestation Statement: The information in this document, created by the medical practitioners for me, accurately reflects the services I personally performed and the decisions made by me. I have reviewed and approved this document for accuracy. Luis Miguel Sylvester, [facility]01-05-2021 NoteHNO ID: [id number] Author: Sameer Perez Service: ? Author Type: Physician Type: Progress Notes Filed: 08/27/2020 3:34 PM Note Text: NEUROSURGERY CONSULT NOTE Sameer Perez MD Date of visit: August 27, 2020 Patient Name: Ms.Andra Chika Shelton Date of : 1950 Current Age: [age] year old Sex: female MRN/E# [id number] Chief Complaint: Patient presents with: New Patient HISTORY OF PRESENT ILLNESS : The patient is a 70 year old, right handed female who is referred by Dr. Maher for neurosurgical evaluation. Ms. Shelton presents to the office today as a new patient with imaging for evaluation of possible spinal fluid leak. She has a history of lumbar fusion L2- S1 in 2017 per another physician in [place]. She states she did well afterwards and incision healed until five months ago when she noticed a wound around the incision site. Since then wound had progressed. Wound care is following patient and has wound dressing changed daily. Per patient, wound is 5 cm deep. They state clear fluid has been leaking from the site and drainage is clear. She has not returned to her surgeon's office as she no longer lives in [place]. Wound care recommended she present here to due possible CSF leakage. She reports back pain around incision site but denies leg symptoms. She has not been on antibiotics for this. Her PCP ordered MRI and CT of the lumbar spine. She presents today for evaluation and plan of care. Symptoms: low back pain around wound PREVIOUS CONSERVATIVE TREATMENTS: Wound care PREVIOUS SURGERY: L2-S1 fusion per Dr. Twan Damian 2017 PAIN EVALUATION 08/27/2020 1504 Pain Level: 4 Pain Location: Back-Lower Description: Aching Frequency: Continuous Intervention: Relaxation PAST MEDICAL HISTORY Diagnosis Date - Abdominal pain, right upper quadrant - Acid reflux - Anemia associated with chronic renal failure 01/02/2020 - Asthma - Callaway's esophagus - CAD (coronary artery disease) - Constipation - Diverticulitis - Early satiety - Essential hypertension, benign - Fatigue - Heart disease - Hemorrhoids - Loss of weight - Mitral valve disorders(424.0) with prolapse, needs abx prophylaxis - Other and unspecified hyperlipidemia - PVD (peripheral vascular disease) (HCC) - Rheumatoid arthritis(714.0) PAST SURGICAL HISTORY Procedure Laterality Date - APPENDECTOMY - BACK SURGERY HX 2010 lami and fusion L45 for spondylolisthesis - CC PTCA STENT 2007, 2009 - COLONOS W/REM POLYP SNARE 09/05/09 repeat in -2012 - EXCIS BREAST LESION rt - PAST SURGICAL HISTORY OF Left foot - PAST SURGICAL HISTORY OF Right shoulder - PAST SURGICAL HISTORY OF Right hip surgery - REVASCULARIZATION ILIAC ART ANGIOP EA IPSI VSL bilateral - REVISE MEDIAN N/CARPAL TUNNEL SURG x 2 Carpal tunnel decomp - TOTAL ABDOM HYSTERECTOMY Hysterectomy, AMALIA FAMILY HISTORY Problem Relation Age of Onset - Cancer Mother lung - Heart Mother - Hypertension Father - Heart Father - Prostate Cancer Father - Diabetes Brother - Diabetes Paternal Grandmother - Hypertension Paternal Grandmother ALLERGIES Allergen Reactions - Macrobid [Nitrofura* - Penicillins - Sulfa (Sulfonamide * Unknown Current Outpatient Medications Medication Sig Dispense Refill - Multivitamin with Iron-Mineral tab Take 1 tablet by mouth once daily. 100 tablet 2 - polyethylene glycol 3350 (MIRALAX) 17 gram packet 17 g q 24 HR. Prn - OXcarbazepine (TRILEPTAL) 150 mg tablet 300 mg twice daily. - furosemide (LASIX) 40 mg tablet Take 40 mg by mouth once daily. - pyridoxine, vitamin B6, (VITAMIN B-6) 100 mg tablet Take 1 tablet by mouth once daily. 100 tablet 2 - levothyroxine (SYNTHROID) 50 mcg tablet Take 50 mcg by mouth once daily. - omeprazole 40 mg capsule Take 40 mg by mouth once daily. - metoprolol tartrate, short acting, (LOPRESSOR) 25 mg tablet Take 25 mg by mouth once daily. - cyanocobalamin, vitamin B-12, (VITAMIN B-12 INJECTION) by INJECTION(UNSPECIFIED PARENTERAL ROUTES) route once every month. - rosuvastatin (CRESTOR) 20 mg tablet Take 20 mg by mouth once daily. - temazepam 30 mg cap Take 30 mg by mouth daily at bedtime. - aspirin, enteric coated 81 mg EC tablet Take 81 mg by mouth once daily. - montelukast sodium(SINGULAIR 10 MG TAB) take one tablet by mouth daily 0 - NITROGLYCERIN 0.4 MG SUBLINGUAL TAB as needed for chest pain 0 - ALBUTEROL 90 MCG/ACTUATION AEROSOL INHALER Inhale 1-2 Puffs as instructed every 4 hours as needed. SHAKE WELL BEFORE USING 0 - hydrOXYzine HCl (ATARAX) 25 mg tablet Take 25 mg by mouth every 6 hours as needed. - linaCLOtide (LINZESS) 290 mcg capsule Take 290 mcg by mouth once daily. No current facility-administered medications for this visit. REVIEW OF SYSTEMS Review of Systems Constitutional: Negative for chills, diaphoresis and fever. HENT: Negative for congestion, drooling and tinnitus. Eyes: Ne (more content not included)...[facility]ments Appointment Date:06/12/2021 11:45:00 AM Scheduled Provider:ANA LUISA VILLANUEVA MD Location:[facility] Appointment Type:ENDO OV Appointment Date:08/27/2021 01:15:00 PM Scheduled Provider:BELL MAHER MD Location:[facility] Appointment Type:PC OV Future Scheduled Tests Laboratory* Thyroid Stimulating Hormone 08/28/21 * Free T4 05/28/21 * Lipid Profile 08/28/21 * Complete Metabolic Panel 08/28/21 Radiology* XR Forearm 2 Views Left 03/04/21 * XR Wrist Minimum 3 Views Left 03/04/21 * XR Wrist Navicular 4 Views Left 10/17/20 [facility] Evaluation + Plan note Future Appointments Appointment Date:06/12/2021 11:45:00 AM Scheduled Provider:ANA LUISA VILLANUEVA MD Location:[facility] Appointment Type:ENDO OV Appointment Date:08/27/2021 01:15:00 PM Scheduled Provider:BELL MAHER MD Location:[facility] Appointment Type:PC OV Diagnostic Tests Pending * Adrenocorticotropic Hormone (ACTH) 06/05/21 Future Scheduled Tests Laboratory* Thyroid Stimulating Hormone 08/28/21 * Free T4 05/28/21 * Lipid Profile 08/28/21 * Complete Metabolic Panel 08/28/21 Radiology* XR Forearm 2 Views Left 03/04/21 * XR Wrist Minimum 3 Views Left 03/04/21 * XR Wrist Navicular 4 Views Left 10/17/20 [facility] Evaluation + Plan note Future Appointments Appointment Date:08/27/2021 01:15:00 PM Scheduled Provider:BELL MAHER MD Location:[facility] Appointment Type:PC OV Future Scheduled Tests Laboratory* Thyroid Stimulating Hormone 08/28/21 * Free T4 05/28/21 * Lipid Profile 08/28/21 * Complete Metabolic Panel 08/28/21 Radiology* XR Chest 2 Views (PA & Lateral) 07/31/21 * XR Forearm 2 Views Left 03/04/21 * XR Wrist Minimum 3 Views Left 03/04/21 * XR Wrist Navicular 4 Views Left 10/17/20 [facility] Evaluation + Plan note Future Appointments Appointment Date:08/27/2021 01:15:00 PM Scheduled Provider:BELL MAHER MD Location:[facility] Appointment Type:PC OV Future Scheduled Tests Laboratory* Free T4 05/28/21 Radiology* XR Chest 2 Views (PA & Lateral) 07/31/21 * XR Forearm 2 Views Left 03/04/21 * XR Wrist Minimum 3 Views Left 03/04/21 * XR Wrist Navicular 4 Views Left 10/17/20 [facility] Evaluation + Plan note Future Appointments Appointment Date:12/18/2021 01:30:00 PM Scheduled Provider:BELL MAHER MD Location:[facility] Appointment Type:PC OV Diagnostic Tests Pending * PTH, Intact 10/27/21 Future Scheduled Tests Laboratory* Free T4 05/28/21 Radiology* XR Chest 2 Views (PA & Lateral) 07/31/21 * XR Forearm 2 Views Left 03/04/21 * XR Wrist Minimum 3 Views Left 03/04/21 [facility] Evaluation + Plan note Future Appointments Appointment Date:12/18/2021 01:30:00 PM Scheduled Provider:BELL MAHER MD Location:[facility] Appointment Type: OV Future Scheduled Tests Laboratory* Free T4 05/28/21 Radiology* NM Hepatobiliary Duct System Imaging 11/04/21 * XR Chest 2 Views (PA & Lateral) 07/31/21 * XR Forearm 2 Views Left 03/04/21 * XR Wrist Minimum 3 Views Left 03/04/21 [facility] Evaluation + Plan note Future Appointments Appointment Date:12/18/2021 01:30:00 PM Scheduled Provider:BELL MAHER MD Location:[facility] Appointment Type: OV Future Scheduled Tests Laboratory* Free T4 05/28/21 Radiology* XR Chest 2 Views (PA & Lateral) 07/31/21 * XR Forearm 2 Views Left 03/04/21 * XR Wrist Minimum 3 Views Left 03/04/21 [facility] Evaluation + Plan note Future Appointments Appointment Date:02/17/2022 01:00:00 PM Scheduled Provider:BELL MAHER MD Location:[facility] Appointment Type: OV Hospital Follow-Up Future Scheduled Tests Laboratory* Free T4 05/28/21 Radiology* XR Chest 2 Views (PA & Lateral) 07/31/21 * XR Forearm 2 Views Left 03/04/21 * XR Wrist Minimum 3 Views Left 03/04/21 [facility] evaluation + Plan note Future Appointments Appointment Date:05/29/2022 03:00:00 PM Scheduled Provider:BELL MAHER MD Location:[facility] Appointment Type:PC OV Future Scheduled Tests Laboratory* Free T4 05/28/21 Radiology* XR Chest 2 Views (PA & Lateral) 07/31/21 [facility] evaluation + Plan note Future Appointments Appointment Date:07/31/2022 02:00:00 PM Scheduled Provider:BELL MAHER MD Location:[facility] Appointment Type:PC OV Appointment Date:08/31/2022 11:30:00 AM Scheduled Provider: Location:[facility] Appointment Type:CV OV Future Scheduled Tests Radiology* XR Chest 2 Views (PA & Lateral) 07/31/21 [facility] Evaluation + Plan note Future Appointments Appointment Date:08/31/2022 11:30:00 AM Scheduled Provider: [facility] Appointment Type:CV OV Appointment Date:10/29/2022 01:00:00 PM Scheduled Provider:BELL MAHER MD Location:[facility] Appointment Type:PC OV Future Scheduled Tests Laboratory* Thyroid Stimulating Hormone 10/29/22 * Lipid Profile 10/29/22 * Complete Metabolic Panel 10/29/22 [facility] evaluation + Plan note Future Appointments Appointment Date:04/07/2023 03:00:00 PM Scheduled Provider: Location:[facility] Appointment Type:OT Outpatient Evaluation Appointment Date:05/31/2023 11:00:00 AM Scheduled Provider: Location:[facility] Appointment Type:PC Nurse Lab Appointment Date:06/10/2023 11:00:00 AM Scheduled Provider:BELL MAHER MD Location:[facility] Appointment Type:PC OV Future Scheduled Tests Laboratory* Ferritin 10/29/22 * Thyroid Stimulating Hormone 10/29/22 * Thyroid Stimulating Hormone 06/10/23 * Thyroid Stimulating Hormone 10/29/22 * Free T4 10/29/22 * A1C Hemoglobin 06/10/23 * Complete Blood Count 10/29/22 * Complete Blood Count 03/10/23 * Complete Blood Count 04/01/23 * Free T3 10/29/22 * Lipid Profile 10/29/22 * Lipid Profile 05/05/23 * Lipid Profile 06/10/23 * Lipid Profile 10/29/22 * Vitamin D Level 10/29/22 * Complete Metabolic Panel 10/29/22 * Complete Metabolic Panel 06/10/23 * Complete Metabolic Panel 10/29/22 * Complete Metabolic Panel 04/01/23 [facility] Evaluation + Plan note Future Appointments Appointment Date:04/28/2023 10:00:00 AM Scheduled Provider:BELL MAHER MD Location:[facility] Appointment Type:PC OV Appointment Date:05/31/2023 11:00:00 AM Scheduled Provider: Location:[facility] Appointment Type:PC Nurse Lab Appointment Date:06/10/2023 11:00:00 AM Scheduled Provider:BELL MAHER MD Location:[facility] Appointment Type: OV Future Scheduled Tests Laboratory* Ferritin 10/29/22 * Thyroid Stimulating Hormone 10/29/22 * Thyroid Stimulating Hormone 06/10/23 * Thyroid Stimulating Hormone 10/29/22 * Free T4 10/29/22 * A1C Hemoglobin 06/10/23 * Complete Blood Count 10/29/22 * Complete Blood Count 03/10/23 * Complete Blood Count 04/01/23 * Free T3 10/29/22 * Lipid Profile 10/29/22 * Lipid Profile 05/05/23 * Lipid Profile 06/10/23 * Lipid Profile 10/29/22 * Vitamin D Level 10/29/22 * Complete Metabolic Panel 10/29/22 * Complete Metabolic Panel 06/10/23 * Complete Metabolic Panel 10/29/22 * Complete Metabolic Panel 04/01/23 [facility] Evaluation + Plan note Future Appointments Appointment Date:06/10/2023 11:00:00 AM Scheduled Provider:BELL MAHER MD Location:[facility] Appointment Type:PC OV [facility] Evaluation + Plan note Future Appointments Appointment Date:11/29/2023 10:00:00 AM Scheduled Provider: Location:[facility] Appointment Type:PC Nurse Lab Appointment Date:12/07/2023 10:00:00 AM Scheduled Provider:BELL MAHER MD Location:[facility] Appointment Type:PC OV Future Scheduled Tests Laboratory* Ferritin 09/07/23 * Magnesium Level 09/07/23 * Thyroid Stimulating Hormone 12/07/23 * Free T4 09/07/23 * Vitamin B12 Level 09/07/23 * Complete Blood Count 09/07/23 * Lipid Profile 12/07/23 * Vitamin D Level 09/07/23 * Complete Metabolic Panel 12/07/23 [facility] Evaluation + Plan note Future Appointments Appointment Date:12/07/2023 10:00:00 AM Scheduled Provider:BELL MAHER MD Location:[facility] Appointment Type:PC OV Future Scheduled Tests Laboratory* Ferritin 09/07/23 * Magnesium Level 09/07/23 * Free T4 09/07/23 * Vitamin B12 Level 09/07/23 * Complete Blood Count 09/07/23 * Vitamin D Level 09/07/23 [facility] Evaluation + Plan note Future Appointments Appointment Date:03/07/2024 10:30:00 AM Scheduled Provider:BELL MAHER MD Location:[facility] Appointment Type:PC OV Future Scheduled Tests Laboratory* Magnesium Level 09/07/23 * Free T4 09/07/23 * Vitamin B12 Level 09/07/23 * Complete Blood Count 09/07/23 * Vitamin D Level 09/07/23 [facility] Evaluation + Plan note Future Appointments Appointment Date:06/20/2024 10:30:00 AM Scheduled Provider:BELL MAHER MD Location:[facility] Appointment Type:PC OV [facility] Evaluation + Plan note Future Appointments Appointment Date:10/04/2024 11:00:00 AM Scheduled Provider:BELL MAHER MD Location:[facility] Appointment Type:PC OV Future Scheduled Tests Laboratory* Ferritin 06/20/24 * Free T4 06/20/24 * Vitamin B12 Level 06/20/24 * Complete Blood Count 06/20/24 * Vitamin D Level 06/20/24 [facility] Evaluation + Plan note Future Appointments Appointment Date:10/17/2024 10:00:00 AM Scheduled Provider:MARIAM RODRIGEZ [facility] Appointment Type:CV OV Future Scheduled Tests Laboratory* Ferritin 06/20/24 * Free T4 06/20/24 * Vitamin B12 Level 06/20/24 * Complete Blood Count 06/20/24 * Vitamin D Level 06/20/24 [facility] Evaluation + Plan note Future Appointments Appointment Date:10/30/2024 11:30:00 AM Scheduled Provider:MARIAM RODRIGEZ [facility] Appointment Type:CV OV Appointment Date:11/03/2024 01:15:00 PM Scheduled Provider:STACEY RODRIGUEZ MD Location:[facility] Appointment Type:[facility] OV Follow Up w/MD Diagnostic Tests Pending * Erythropoietin (EPO), Serum 10/23/24 Future Scheduled Tests Laboratory* Ferritin 06/20/24 * Folate Level 10/23/24 * Haptoglobin 10/23/24 * Free T4 06/20/24 * Vitamin B12 Level 06/20/24 * Complete Blood Count 06/20/24 * Factor VIII Assay 10/23/24 * ANJANA (serum) 10/23/24 * IgG 10/23/24 * IgM 10/23/24 * Protein Electrophoresis Panel 10/23/24 * Prothrombin Time - Panel 10/23/24 * Vitamin D Level 06/20/24 [facility] Evaluation + Plan note Future Appointments Appointment Date:11/24/2024 11:00:00 AM Scheduled Provider:BELL MAHER MD Location:[facility] Appointment Type:PC Wellness Medicare Appointment Date:02/05/2025 11:45:00 AM Scheduled Provider:ARGENTINA ARGUELLO APRN-VASCULAR ULTRASOUND TECHNICIAN Location:[facility] Appointment Type:[facility] OV Follow Up w/EMPLOYEE COMMUNICATIONS MANAGER Diagnostic Tests Pending * Factor VIII Assay 11/03/24 * ANJANA (serum) 11/03/24 Future Scheduled Tests Laboratory* Ferritin 06/20/24 * Haptoglobin 02/03/25 * Free T4 06/20/24 * Vitamin B12 Level 06/20/24 * Complete Blood Count 06/20/24 * Complete Blood Count 02/03/25 * ANJANA (serum) 02/03/25 * Iron Studies 02/03/25 * Protein Electrophoresis Panel 02/03/25 * Vitamin D Level 06/20/24 [facility] Evaluation + Plan note Future Appointments Appointment Date:01/03/2025 01:30:00 PM Scheduled Provider:BELL MAHER MD Location:[facility] Appointment Type:PC OV Appointment Date:02/05/2025 11:45:00 AM Scheduled Provider:ARGENTINA ARGUELLOVASCULAR ULTRASOUND TECHNICIAN Location:[facility] Appointment Type:[facility] OV Follow Up w/EMPLOYEE COMMUNICATIONS MANAGER Future Scheduled Tests Laboratory* Ferritin 06/20/24 * Haptoglobin 02/03/25 * Free T4 06/20/24 * Vitamin B12 Level 06/20/24 * Complete Blood Count 06/20/24 * Complete Blood Count 02/03/25 * ANJANA (serum) 02/03/25 * Iron Studies 02/03/25 * Protein Electrophoresis Panel 02/03/25 * Vitamin D Level 06/20/24 [facility] Evaluation + Plan note Future Appointments Appointment Date:01/17/2025 11:30:00 AM Scheduled Provider:BELL MAHER MD Location:[facility] Appointment Type:PC OV Follow Up Appointment Date:02/05/2025 11:45:00 AM Scheduled Provider:ARGENTINA ARGUELLO APRN-VASCULAR ULTRASOUND TECHNICIAN Location:[facility] Appointment Type:[facility] OV Follow Up w/EMPLOYEE COMMUNICATIONS MANAGER Future Scheduled Tests Laboratory* Ferritin 06/20/24 * Haptoglobin 02/03/25 * Free T4 06/20/24 * Vitamin B12 Level 06/20/24 * Complete Blood Count 06/20/24 * Complete Blood Count 02/03/25 * ANJANA (serum) 02/03/25 * Iron Studies 02/03/25 * Protein Electrophoresis Panel 02/03/25 * Vitamin D Level 06/20/24 [facility] Evaluation + Plan note Future Appointments Appointment Date:02/14/2025 02:00:00 PM Scheduled Provider:BELL MAHER MD Location:[facility] Appointment Type:PC OV Follow Up Appointment Date:04/02/2025 01:00:00 PM Scheduled Provider: Location:[facility] Appointment Type:VL - Carotid US/Doppler Complete Appointment Date:05/14/2025 10:15:00 AM Scheduled Provider:STACEY RODRIGUEZ MD Location:[facility] Appointment Type:[facility] OV Follow Up w/ Diagnostic Tests Pending * ANJANA (serum) 02/05/25 Future Scheduled Tests Laboratory* Ferritin 05/08/25 * Ferritin 06/20/24 * Free T4 06/20/24 * Vitamin B12 Level 06/20/24 * Complete Blood Count 05/08/25 * Complete Blood Count 06/20/24 * Iron Studies 05/08/25 * Vitamin D Level 06/20/24 [facility] Evaluation + Plan note Future Appointments Appointment Date:03/07/2025 03:00:00 PM Scheduled Provider:BELL MAHER MD Location:[facility] Appointment Type:PC OV Follow Up Appointment Date:04/02/2025 01:00:00 PM Scheduled Provider: Location:[facility] Appointment Type:VL - Carotid US/Doppler Complete Appointment Date:05/14/2025 10:15:00 AM Scheduled Provider:STACEY RODRIGUEZ MD Location:[facility] Appointment Type:[facility] OV Follow Up w/ Future Scheduled Tests Laboratory* Ferritin 05/08/25 * Ferritin 06/20/24 * Free T4 06/20/24 * Vitamin B12 Level 06/20/24 * Complete Blood Count 05/08/25 * Complete Blood Count 06/20/24 * Iron Studies 05/08/25 * Vitamin D Level 06/20/24 [facility] Evaluation + Plan note Future Appointments Appointment Date:04/02/2025 01:00:00 PM Scheduled Provider: Location:[facility] Appointment Type:VL - Carotid US/Doppler Complete Appointment Date:05/14/2025 10:15:00 AM Scheduled Provider:STACEY RODRIGUEZ MD Location:[facility] Appointment Type:[facility] OV Follow Up w/ Future Scheduled Tests Laboratory* Ferritin 05/08/25 * Ferritin 06/20/24 * Free T4 06/20/24 * Vitamin B12 Level 06/20/24 * Complete Blood Count 05/08/25 * Complete Blood Count 06/20/24 * Iron Studies 05/08/25 * Vitamin D Level 06/20/24 [facility] Evaluation note* Diagnosis Onset Date Resolution Status Chronic renal failure, stage 4 (severe) chronic Chronic renal failure, stage 4 (severe) chronic Chronic renal failure, stage 4 (severe) chronic Chronic renal failure, stage 4 (severe) chronic Chronic renal failure, stage 4 (severe) chronic Chronic renal failure, stage 4 (severe) chronic Chronic renal failure, stage 4 (severe) chronic Chronic renal failure, stage 4 (severe) chronic Chronic renal failure, stage 4 (severe) chronic [facility] Work Phone: Evaluation note* Diagnosis Onset Date Resolution Status Chronic renal failure, stage 4 (severe) chronic Chronic renal failure, stage 4 (severe) chronic Chronic renal failure, stage 4 (severe) chronic Chronic renal failure, stage 4 (severe) chronic Chronic renal failure, stage 4 (severe) chronic Wound dehiscence acute Wound dehiscence acute Bilateral lower extremity edema acute Wound dehiscence acute Congestive heart failure (CHF) chronic Renal insufficiency chronic [facility] Work Phone: Evaluation note* Diagnosis Onset Date Resolution Status End stage renal disease on dialysis acute End stage renal disease on dialysis acute End stage renal disease acut e [facility] Work Phone: Evaluation note* Diagnosis Onset Date Resolution Status End stage renal disease acut e End stage renal disease acut e End stage renal disease acut e End stage renal disease acut e Problem with dialysis access acute [facility] Work Phone: Evaluation noteNo assessment information available [facility] Work Phone: Evaluation note* Diagnosis Awaiting transplantation of kidney- Primary Dietary counseling and surveillance Dietary surveillance and counseling [facility] Diagnosis Pre-transplant evaluation for kidney transplant- Primary Other specified pre-operative examination documented in this encounter [facility] note* Diagnosis ESRD on dialysis (HCC)- Primary End stage renal disease Pre-transplant evaluation for ESRD (end stage renal disease) Other specified pre-operative examination PAD (peripheral artery disease) (HCC) Peripheral vascular disease, unspecified Frailty Senility without mention of psychosis [facility] Diagnosis Pre-transplant evaluation for ESRD (end stage renal disease)- Primary Other specified pre-operative examination documented in this encounter [facility] note* Diagnosis Chronic renal failure, stage 5 (HCC) Pre-transplant evaluation for kidney transplant Other specified pre-operative examination documented in this encounter [facility] note* Diagnosis ESRD on dialysis (HCC)- Primary End stage renal disease Hypertension, unspecified type PVD (peripheral vascular disease) (HCC) Peripheral vascular disease, unspecified Coronary artery disease involving [place] coronary artery of [place] heart without angina pectoris [facility] N[facility] No data available for this section [facility] Hospital Discharge instructions No data available for this section [facility] Hospital Discharge instructions Additional Instructions Implant Used?: [facility] Work Phone: Progress note No data available for this section [facility] Discharge Instructions * Gilberto Oliveira MD - 10/23/2017 Back Strain: Care Instructions Your Care Instructions Back strain happens when you overstretch, or pull, a muscle in your back. You may hurt your back inan accident or when you exercise or lift something. Most back pain will get better with rest and time. You can take care of yourself at home to help your back heal. Follow-up care is a diego part of your treatment and safety. Be sure to make and go to all appointments, and call your doctor if you are having problems. It's also a good idea to know your test resultsand keep a list of the medicines you take. How can you care for yourself at home? Try to stay as active as you can, but stop or reduce any activity that causes pain. Put ice or a cold pack on the sore muscle for 10 to 20 minutes at a time to stop swelling. Try thisevery 1 to 2 hours for 3 days (when you are awake) or until the swelling goes down. Put a thin cloth between the ice pack and your skin. After 2 or 3 days, apply a heating pad on low or a warm cloth to your back. Some doctors suggest that you go back and forth between hot and cold treatments. Take pain medicines exactly as directed. If the doctor gave you a prescription medicine for pain, take it as prescribed. If you are not taking a prescription pain medicine, ask your doctor if you can take an [id number] medicine. Try sleeping on your side with a pillow between your legs. Or put a pillow under your knees when you lie on your back. These measures can ease pain in your lower back. Return to your usual level of activity slowly. When should you call for help? Call 911 anytime you think you may need emergency care. For example, call if: You are unable to move a leg at all. Call your doctor now or seek immediate medical care if: You have new or worse symptoms in your legs, belly, or buttocks. Symptoms may include: Numbness or tingling. Weakness. Pain. You lose bladder or bowel control. Watch closely for changes in your health, and be sure to contact your doctor if you are not gettingbetter as expected. Where can you learn more? Log into your personal health record on https://[email or web address] and enter U095 in the Education box to learn more about Back Strain: Care Instructions. Current as of: January 13, 2016 Content Version: 11.2 [id number] [employer]. Care instructions adapted under license by your healthcare professional. If you have questions about a medical condition or this instruction, always ask your healthcare professional. [employer] disclaims any warranty or liability for your use of this information. Scrapes (Abrasions): Care Instructions Your Care Instructions Scrapes (abrasions) are wounds where your skin has been rubbed or torn off. Most scrapes do not go deep into the skin, but some may remove several layers of skin. Scrapes usually don't bleed much, but they may ooze pinkish fluid. Scrapes on the head or face may appear worse than they are. They may bleed a lot because of the good blood supply to this area. Most scrapes heal well and may not need a bandage. They usually heal within 3 to 7 days. A large, deep scrape may take 1 to 2 weeks or longer to heal. A scab may form on some scrapes. Follow-up care is a diego part of your treatment and safety. Be sure to make and go to all appointments, and call your doctor if you are having problems. It's also a good idea to know your test resultsand keep a list of the medicines you take. How can you care for yourself at home? If your doctor told you how to care for your wound, follow your doctor's instructions. If you did not get instructions, follow this general advice: Wash the scrape with clean water 2 times a day. Don't use hydrogen peroxide or alcohol, which can slow healing. You may cover the scrape with a thin layer of petroleum jelly, such as Vaseline, and a nonstick bandage. Apply more petroleum jelly and replace the bandage as needed. Prop up the injured area on a pillow anytime you sit or lie down during the next 3 days. Try to keep it above the level of your heart. This will help reduce swelling. Be safe with medicines. Take pain medicines exactly as directed. If the doctor gave you a prescription medicine for pain, take it as prescribed. If you are not taking a prescription pain medicine, ask your doctor if you can take an [id number] medicine. When should you call for help? Call your doctor now or seek immediate medical care if: You have signs of infection, such as: Increased pain, swelling, warmth, or redness around the scrape. Red streaks leading from the scrape. Pus draining from the scrape. A fever. The scrape starts to bleed, and blood soaks through the bandage. Oozing small amounts of blood is normal. Watch closely for changes in your health, and be sure to contact your doctor if the scrape is not getting better each day. Where can you learn more? Log into your personal health record on [email or web address][email or web address] and enter A374 in the Education box to learn more about Scrapes (Abrasions): Care Instructions. Current as of: January 17, 2016 Content Version: 11.2 5350-8836 [employer]. Care instructions adapted under license by your healthcare professional. If you have questions about a medical condition or this instruction, always ask your healthcare professional. [employer] disclaims any warranty or liability for your use of this information. Bruises: Care Instructions Your Care Instructions Bruises occur when small blood vessels under the skin tear or rupture, most often from a twist, bump, or fall. Blood leaks into tissues under the skin and causes a aokyu-lkn-kbgu spot that often turns colors, including purplish black, reddish blue, or yellowish green, as the bruise heals. Bruises hurt, but most are not serious and will go away on their own within 2 to 4 weeks. Sometimes, gravity causes them to spread down the body. A leg bruise usually will take longer to heal than a bruise on the face or arms. Follow-up care is a diego part of your treatment and safety. Be sure to make and go to all appointments, and call your doctor if you are having problems. It s also a good idea to know your test resultsand keep a list of the medicines you take. How can you care for yourself at home? Take pain medicines exactly as directed. If the doctor gave you a prescription medicine for pain, take it as prescribed. If you are not taking a prescription pain medicine, ask your doctor if you can take an jipg-kmj-[id number] medicine. Put ice or a cold pack on the area for 10 to 20 minutes at a time. Put a thin cloth between the iceand your skin. If you can, prop up the bruised area on pillows as much as possible for the next few days. Try to keep the bruise above the level of your heart. When should you call for help? Call your doctor now or seek immediate medical care if: You have signs of infection, such as: Increased pain, swelling, warmth, or redness. Red streaks leading from the bruise. Pus draining from the bruise. A fever. You have a bruise on your leg and signs of a blood clot, such as: Increasing redness and swelling along with warmth, tenderness, and pain in the bruised area. Pain in your calf, back of the knee, thigh, or groin. Redness and swelling in your leg or groin. Your pain gets worse. Watch closely for changes in your health, and be sure to contact your doctor if: You do not get better as expected. Where can you learn more? Log into your personal health record on [email or web address] and enter T177 in the Education box to learn more about Bruises: Care Instructions. Current as of: January 17, 2016 Content Version: 11.2 6907-2343 [employer]. Care instructions adapted under license by your healthcare professional. If you have questions about a medical condition or this instruction, always ask your healthcare professional. [employer] disclaims any warranty or liability for your use of this information. Watch for signs of infection. Keep wounds clean and dry. Follow-up with your doctor in 2 days for wound check. Apply ice to sore areas. Activity as tolerated. Return to the emergency department any concerns. Please have your sutures removed in 10 days. The following attachments cannot be sent through Care Everywhere. * FALL PREVENTION (PUERTO RICAN) * SKIN TEARS (PUERTO RICAN) in this encounter Assessments Diagnosis Contusion of right knee, ini tial encounter - Primary Laceration of right lower ex tremity, initial encounter Skin tear of right hand with out complication, initial encounter Contusion of right hand, ini tial encounter Abrasion of forehead, initia l encounter Fall, initial encounter Back strain, initial encount er Summary Purpose Family History No Family History Records Found Relationship Condition Age at Onset Recorded Date/T kenneth father Cardiac disease Unknown mother Myocardial infarction 50 Coronary artery disease Unknown brother Diabetes mellitus Unknown Advance Directives No Advanced Directives Records Found Advance Directive Response Recorded Date/ Time Advance Directives No April 4:41pm Living Will No January 19, 2022 1 :11pm Power of Regional Sales Coordinator No January 19, 2022 1:11pm Documents on File Type Date Recorded 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 Advance Directive(s) 02/06/2021 12:39 PM Advance Directive(s) 01/29/2021 12:32 PM Advance Directive(s) 01/23/2021 9:37 AM Advance Directive(s) 01/15/2021 11:17 AM Advance Directive(s) 01/08/2021 11:41 AM Advance Directive(s) 11/18/2020 8:34 AM Advance Directive(s) 10/14/2020 6:42 AM Advance Directive Response Recorded Date/ Time Advance Directives No April 4:41pm Living Will No March 16, 2022 10:09am Power of Regional Sales Coordinator No March 16 10:09am Advance Directive Response Recorded Date/ Time Advance Directives No April 3:41pm Living Will No July 30 1:52pm Power of Regional Sales Coordinator No July 30, 2022 1:52pm Advance Directive Response Recorded Date/ Time Advance Directives No November 06, 023 7:15am Living Will No November 06, 2022 7:15am Power of Regional Sales Coordinator No November 06 7:15am Advance Directive Response Recorded Date/ Time Advance Directives No November 09 023 7:33am Living Will No November 09, 2022 7:33am Power of Regional Sales Coordinator No November 09 7:33am Advance Directive Response Recorded Date/ Time Advance Directives No November 09 023 6:33am Living Will No November 09, 2022 6:33am Power of Regional Sales Coordinator No November 09 6:33am Advance Directive Response Recorded Date/ Time Living Will No August 17 024 1:43pm Do you have a Healthcare Power of Regional Sales Coordinator? No August 17, 2024 1:43pm Advance Directives No November 09 023 7:33am Chief Complaint and Reason for Visit Chief Complaint FISTULA, VM 10/06 POM ERENE LT AV FISTULA CREATION UPPER ARM BRACHIAL TO BASIL LT AV FISTULA CREATION UPPER ARM BRACHIAL TO BASIL LT AV FISTULA CREATION UPPER ARM BRACHIAL TO BASIL CHEST PAIN Fistula Creation 10/21 RC RE CHECK FISTULA RE-CHECK FISTULA LT AV FISTULA CREATION LT AV FISTULA CREATION 2ND FISTULA IN ARM 5/12 CHECK FISTULA F/U ED BROKEN CATH LAC Reason for Visit Chronic renal failur e, stage 4 (severe) Chronic renal failure, stage 4 (severe) Chronic renal failure, stage 4 (severe) Chronic renal failure, stage 4 (severe) Chronic renal failure, stage 4 (severe) Chronic renal failure, stage 4 (severe) Chronic renal failure, stage 4 (severe) Chronic renal failure, stage 4 (severe) Chronic renal failure, stage 4 (severe) Chief Complaint RE-CHECK FISTULA LT AV FISTULA CREATION LT AV FISTULA CREATION 2ND FISTULA IN ARM 5/12 CHECK FISTULA F/U ED BROKEN CATH LAC 2ND FISTULA IN ARM 5/12 WOUND DEHISCENCE WOUND DEHISCENCE WOUND DEHISCENCE E ORDER Reason for Visit Chronic renal failur e, stage 4 (severe) Chronic renal failure, stage 4 (severe) Chronic renal failure, stage 4 (severe) Chronic renal failure, stage 4 (severe) Chronic renal failure, stage 4 (severe) Wound dehiscence Wound dehiscence Bilateral lower extremity edema Wound dehiscence Congestive heart failure (CHF) Renal insufficiency Chief Complaint RE-CHECK FISTULA LT AV FISTULA CREATION LT AV FISTULA CREATION 2ND FISTULA IN ARM 5/12 CHECK FISTULA F/U ED BROKEN CATH LAC 2ND FISTULA IN ARM 5/12 WOUND DEHISCENCE WOUND DEHISCENCE WOUND DEHISCENCE E ORDER AORTIOLIAC OCCLUSIVE DISEASE Reason for Visit Chronic renal failur e, stage 4 (severe) Chronic renal failure, stage 4 (severe) Chronic renal failure, stage 4 (severe) Chronic renal failure, stage 4 (severe) Chronic renal failure, stage 4 (severe) Wound dehiscence Wound dehiscence Bilateral lower extremity edema Wound dehiscence Congestive heart failure (CHF) Renal insufficiency Chief Complaint F/U Check Fistula AV FISTULA CREATION AV FISTULA CREATION 1 W FU FISTULA CREATION 1 W FU FISTULA CREATION RT AV FISTULA TRANSPOSITION RT AV FISTULA TRANSPOSITION Reason for Visit End stage renal dise [facility] on dialysis End stage renal disease on dialysis End stage renal disease Chief Complaint RT AV FISTULA TRANSP OSITION RT AV FISTULA TRANSPOSITION FISTULA CREATION 08/06 FISTULA CREATION 08/06 FISTULA CREATION 08/06 FISTULA CREATION 08/06 issues with fistula, infiltrating Reason for Visit End stage renal dise [facility] End stage renal disease End stage renal disease End stage renal disease Problem with dialysis access Chief Complaint RT AV FISTULA TRANSP OSITION RT AV FISTULA TRANSPOSITION FISTULA CREATION 08/06 FISTULA CREATION 08/06 FISTULA CREATION 08/06 FISTULA CREATION 08/06 issues with fistula, infiltrating PROBLEM WITH DIALYSIS ACCESS PROBLEM WITH DIALYSIS ACCESS Reason for Visit End stage renal dise [facility] End stage renal disease End stage renal disease End stage renal disease Problem with dialysis access Chief Complaint ABCESS R EAR Chief Complaint ABCESS R EAR Postlaminectomy syndrome, not elsewhere classified Chief Complaint Admit Date PNEUMONIA ESRD August 17, 2024 11:43am PNEUMONIA ESRD August 17, 2024 4:02pm PNEUMONIA ESRD August 18, 2024 3:04pm 1 UNIT PRBC September 07, 2024 8 :49am AORTOILIAC OCCLUSIVE DISEASE, BLE ATHERO SCLEROSIS December 05, 2024 8:34am Reason for Visit Admit Date End stage renal disease on dialysis Dece mber 2023 11:43am Anemia of chronic disease August 17, 2024 11:43am Acute dyspnea August 17, 2024 11:43am Pneumonia August 17, 2024 11:43am Weakness August 17, 2024 11:43am Reason for Referral Specialty Diagnoses / Procedures Referred By Igro ruvalcaba Referred To Contact CT IMAGING Diagnoses Chronic renal failure, stage 5 (HCC) Pre-transplant evaluation for kidney transplant Procedures CT ABD/PEL WO IVCON CT ABD & PELVIS W/O CONTRAST Linh Nunez APRN.EQUITY RESEARCH ANALYST [address] [place] [id number] [place] [id number] Referral ID Status Reason Start Date Expiration Date V isits Requested Visits Authorized [id number] Closed Auto-Generate d Referral 01/14/2023 02/06/2024 1 1 Additional Source Comments ED Provider Notes - Libra Tijerina CNP - 10/23/2017 8:57 AM ESTED Update Note - Gilberto Oliveira MD - 10/23/2017 8:52 AM ESTED Notes - Rufina Salinas RN - 10/23/2017 8:24 AM EST Miscellaneous Notes (unrecog nized section and content) Formatting of this note may be different from the original. ED PROVIDER NOTE [facility] NAME: Marcos Shelton AGE: 67 y.o. : 1950 VISIT DATE: 10/23/2017 CSN: [id number] PCP: Provider Not in System Chief Complaint Patient presents with Fall HPI Past Medical History: Diagnosis Date Adrenal insufficiency (Meriden's disease) (HCC) Arthritis Asthma CAD (coronary artery disease) Hyperlipidemia Hypertension Neuropathy PVD (peripheral vascular disease) (HCC) Renal disorder Past Surgical History: Procedure Laterality Date APPENDECTOMY BACK SURGERY BREAST SURGERY CARDIAC CATHETERIZATION EYE SURGERY HYSTERECTOMY REVISION CARPAL TUNNEL STENT PLACEMENT VASCULAR SURGERY History reviewed. No pertinent family history. Social History Social History Marital status: Spouse name: N/A Number of children: N/A Years of education: N/A Occupational History Not on file. Social History Main Topics Smoking status: Former Smoker Quit date: 1996 Smokeless tobacco: Never Used Alcohol use No Drug use: Unknown Sexual activity: Not on file Other Topics Concern Not on file Social History Narrative No narrative on file Previous Medications ALBUTEROL (PROVENTIL) 2.5 MG /3 ML (0.083 %) NEBULIZER SOLUTION Take 2.5 mg by nebulization every 6 (six) hours as needed for wheezing. ATORVASTATIN (LIPITOR) 80 MG TABLET Take 80 mg by mouth daily. CHOLECALCIFEROL, VITAMIN D3, 1,000 UNIT TABLET Take 5,000 Units by mouth daily. CYANOCOBALAMIN (B-12) 1,000 MCG/ML INJECTION 1,000 mcg every 30 (thirty) days. DICYCLOMINE (BENTYL) 10 MG CAPSULE Take 10 mg by mouth 4 (four) times a day before meals and nightly. FOLIC ACID (FOLVITE) 1 MG TABLET Take 0.8 mg by mouth daily. GABAPENTIN (NEURONTIN) 100 MG CAPSULE Take 100 mg by mouth every 8 (eight) hours unknown . METOPROLOL TARTRATE (LOPRESSOR) 25 MG TABLET Take 25 mg by mouth 2 (two) times a day. MONTELUKAST (SINGULAIR) 10 MG TABLET Take 10 mg by mouth nightly. NITROGLYCERIN (NITROSTAT) 0.[address] 0.4 mg under the tongue every 5 (five) minutes as needed for chest pain , if no relief after 3rd dose call 911 . OMEPRAZOLE (PRILOSEC) 40 MG CAPSULE Take 40 mg by mouth daily. ONDANSETRON (ZOFRAN-ODT) 4 MG DISINTEGRATING TABLET Dissolve 4 mg on top of tongue every 8 (eight) hours as needed for nausea. POLYETHYLENE GLYCOL (MIRALAX) 17 GRAM POWDER Take 17 g by mouth daily. RANOLAZINE (RANEXA) 1,000 MG SR TABLET Take 1,000 mg by mouth 2 (two) times a day. ZOLEDRONIC ACID (ZOMETA) 4 MG/5 ML INJECTION Infuse 4 mg into a venous catheter once. Allergies Allergen Reactions Penicillins Palpitations Review of Systems Positives and pertinent negatives as per HPI. All other systems were reviewed and are negative. Patient Vitals for the past 24 hrs: BP Temp Pulse Resp SpO2 Height Weight 10/23/17 0554 (!) 172/94 97.7 ?F (36.5 ?C) 71 16 97 % 5' 4 76.7 kg (169 lb) Physical Exam Laboratory & Radiographic Imaging (if done): No results found for this visit on 10/23/17. CT Head Or Brain Without Contrast Final Result 1. No acute intracranial traumatic injury. No acute intracranial hemorrhage, mass, extraaxial fluid collection, or evidence to suggest acute infarction. 2. No acute fracture. Trace subcutaneous fat stranding within the left frontal scalp, as well as the left parietal scalp; correlate with location of traumatic injury. [facility] Work[facility] ID: [id number] CT Lumbar Spine Without Contrast 3D Preliminary Result 1. No acute lumbar spine fracture or traumatic subluxation. 2. Advanced degenerative disc disease at L2-3. 3. Status post laminectomy, interbody fusion and pedicle screw and malou fixation at L3-4 and L4-5. Hardware is intact. Grade 1 spondylolisthesis at L4-5 without significant spinal canal stenosis. [employer] Workstation ID: [id number] CT Cervical Spine Without Contrast 3D Preliminary Result No acute fracture or traumatic subluxation of the cervical spine. [employer] Workstation ID: [id number] CT Thoracic Spine Without Contrast 3D Preliminary Result No acute fracture or traumatic subluxation of the thoracic spine. [facility] Work[facility] ID: [id number] XR Chest 1 View Final Result No acute findings following the patient's fall. Workstation ID: [id number] Knee Right 2 Views (Standard) Final Result 1. Small knee effusion without acute fracture or malalignment. If there is concern for internal derangement, further evaluation with MRI is recommended. 2. Mild osteoarthritis. 3. No soft tissue gas or foreign body identified. WPT/hb Workstation ID: [id number] Pelvis 1 View (Standard) Final Result No acute findings. Workstation ID: [id number] [id number] Hand Right 3+ Views (Standard) Final Result No acute findings. Workstation ID: [id number] Procedures Procedure: Laceration Repair Location: anterior right knee Length: 6 cm Description: clean wound edges, no foreign bodies, ragged edges Mechanism: fall Shape: star shaped Complex: yes Lidocaine 1% was used for local anestheisa The wound area was cleaned extensively and was irrigated with sterile saline and draped in a sterile fashion. The wound was explored with the following results No foreign bodies found. This wound had areas of retracted skin with skin that has been avulsed and was unable to be approximated well with using chromic gut sutures. Surgifoam was placed over avulsed site. The number of layers closed: 1 Debridement with a sharp instrument: no 5-0 Nylon; 13 sutures were used. 5-0 Chromic Gut: 3 sutures was also used to repair this laceration where the avulsed skin was located. Surgifoam was used to place over an area of avulsion The wound was dressed cleanly. The patient tolerated the procedure well. Skin tear noted to the right lateral knee was cleaned with saline thoroughly. Xerofoam was placed over the skin tear measuring 5cm and kerlix was placed over the site. MDM Clinical Impression: SNOMED CT(R) 1. Contusion of right knee, initial encounter CONTUSION OF RIGHT KNEE 2. Laceration of right lower extremity, initial encounter LACERATION OF LOWER LIMB 3. Skin tear of right hand without complication, initial encounter OPEN WOUND OF HAND 4. Contusion of right hand, initial encounter CONTUSION OF RIGHT HAND 5. Abrasion of forehead, initial encounter ABRASION OF FOREHEAD 6. Fall, initial encounter FALL 7. Back strain, initial encounter STRAIN OF BACK MUSCLE Follow-up Information 1. [facility] Emergency Department. Specialty: Emergency Medicine Why: As needed [address] [place] [address] 2. Your primary care doctor. Why: For suture removal Contact information for after-discharge care Follow-up information has not been specified. New Prescriptions SULFAMETHOXAZOLE-TRIMETHOPRIM (BACTRIM DS,SEPTRA DS) 800-160 MG PER TABLET Take 1 (one) tablet by mouth 2 (two) times a day for 10 days. (Please note that portions of this note may have been completed with a voice recognition software. Efforts were made to correct any errors, but occasionally words are mis-transcribed.) Libra Tijerina, ADDISON 10/23/17 0915 Libra Tijerina CNP 10/23/17 0915 Patient's wound to her left knee was sutured. There are areas where the skin was denuded and would not cover the extent of the wound. Several subcutaneous sutures were placed the postop tissue together. Vaseline gauze was placed over the wound. The wound is in a high tension area. With the patient bends her knee will likely wrap the sutures. Patient was placed in a knee immobilizer. She was ambulated with the knee immobilizer in place. She will be discharged home. She is advised to follow-up with her doctor in 2 days. Patient was recently discharged from the wound clinic for a wound on her other leg. She is advised to follow back up with the wound clinic. Wounds cleaned and dressed, pt tolerated well. ED Attestation: I have reviewed the chart and agree with the documentation as recorded by the RICARDO (Advanced Practice Provider), including the assessment, treatment plan, and disposition. I have reviewed the non physician practitioner's documentation, personally taken the patient's history, performed an exam and agree with the physical findings, clinical impression and management plan. I discussed case with him/her and agree with the assessment and plan. I was involved in all medical decision making in the patient's care. Please refer to my full H&P for full encounter details. Please refer to Libra Tijerina procedure note for laceration repair details. Gilberto Oliveira M.D. (Please note that portions of this note may have been completed with a voice recognition software. Efforts were made to correct any errors, but occasionally words are mis-transcribed or grammatical errors occur.) Pt to CT Pt refused ice pack at this time. Pt told to notify RN if having any pain or nausea. Pt verbalizes understanding. Pt arrives via EMS with complaints of fall. Pt was [place] [employer] when she felt weak and fell. Pt did hit head. -LOC, -blood thinners. Pt states she does use a walker and experiences frequent falls due to chronic leg weakness. Pt with lac to right hand and right knee, dressing in place. Pt awake and alert. Pt does arrive with c-collar in place. Pt denies pain at this time. Bed: 60 Expected date: 10/23/17 Expected time: 5:46 AM Means of arrival: Ambulance Comments: Medic24/fall/bamin this encounter INFORMATION SOURCE (unrecogn ized section and content) DATE CREATED AUTHOR 02/11/2018 [facility] DATE CREATED AUTHOR AUTHOR'S ORGANIZ ATION 02/16/2018 [facility] DATE CREATED AUTHOR AUTHOR'S ORGANIZ ATION 06/07/2018 [facility] DATE CREATED AUTHOR AUTHOR'S ORGANIZ ATION 09/18/2019 [facility] DATE CREATED AUTHOR AUTHOR'S ORGANIZ ATION 12/06/2020 [facility] DATE CREATED AUTHOR AUTHOR'S ORGANIZ ATION 03/08/2021 [facility] DATE CREATED AUTHOR AUTHOR'S ORGANIZ ATION 05/28/2021 [facility] DATE CREATED AUTHOR AUTHOR'S ORGANIZ ATION 09/26/2021 [facility] DATE CREATED AUTHOR AUTHOR'S ORGANIZ ATION 03/07/2024 [facility] (ID) DATE CREATED AUTHOR AUTHOR'S ORGANIZ ATION 12/15/2024 [facility] DATE CREATED AUTHOR AUTHOR'S ORGANIZ ATION 12/17/2024 [facility] DATE CREATED AUTHOR AUTHOR'S ORGANIZ ATION 03/09/2025 [facility] DATE CREATED AUTHOR AUTHOR'S ORGANIZ ATION 03/11/2025 [facility] DATE CREATED AUTHOR AUTHOR'S ORGANIZ ATION 04/05/2025 [facility] DATE CREATED AUTHOR AUTHOR'S ORGANIZ ATION 04/21/2025 [facility] Care Team (unrecognized sect ion and content) Retail Specialist Relationship Specialty Start Date End Date Bell Maher MD [address] [place], [place] [phone] PCP - General Family Practice 06/02/12 Angelita Lamas MD [address] [place], [place] [phone] Hematology/Oncology 11/01/20 Lito Longoria MD [address] [address] Senior Telecommunications Specialist Cardiology 11/01/20 Retail Specialist Relationship Specialty Start Date End Date Bell Mhaer MD [address] [place], [place] [phone] PCP - General Family Medicine 06/02/12 Angelita Lamas MD [address] [place], [place] [phone] Hematology/Oncology 11/01/20 Lito Longoria MD [address] [address] Senior Telecommunications Specialist Cardiology 11/01/20 Team Status: Active Member Role Status Dates Dr. Bell Maher MD Family Provider Active Dr. Bell Maher MD Primary Care Provider Active Team Status: Active Member Role Status Dates Dr. Bell Maher MD Primary Care Provider Active Dr. Fausto Cheatham MD Attending Provid er, Referring Provider, Other Provider Active Team Status: Inactive Member Role Status Dates Dr. Bell Maher MD Primary Care Provider, Referrin g Provider Active Kiara SANDERS PA-C Attending Provider Active Team Status: Inactive Member Role Status Dates Dr. Bell Maher MD Primary Care Provider Active Dr. Fausto Cheatham MD Attending Provider, Referring Provider Active Team Status: Inactive Member Role Status Dates Dr. Bell Maher MD Primary Care Provider Active SARAI KhanC Attending Provider, Referring Provider Active Dr. Fausto Cheatham MD Other Provider Active Team Status: Inactive Member Role Status Dates Dr. Bell Maher MD Primary Care Provider Active Dr. Melissa Currie MD Attending Provider, Re ferring Provider Active Retail Specialist Relationship Specialty Start Date End Date Bell Maher MD [address] [place] [address] PCP - General Family Medicine 06/02/12 Angelita Lamas MD [address] [place] [address] Hematology/Oncology 11/01/20 Lito Longoria MD [address] [address] Senior Telecommunications Specialist Cardiology 11/01/20 Retail Specialist Relationship Specialty Start Date End Date Bell Maher MD [address] [place] [address] PCP - General Family Medicine 06/02/12 Angelita Lamas MD [address] [place] [address] Hematology/Oncology 11/01/20 Lito Longoria MD [address] [address] Senior Telecommunications Specialist Cardiology 11/01/20 Retail Specialist Relationship Specialty Start Date End Date Bell Maher MD [address] [place] [address] PCP - General Family Medicine 06/02/12 Angelita Lamas MD [address] [place] [address] Hematology/Oncology 11/01/20 Lito Longoria MD [address] [address] Senior Telecommunications Specialist Cardiology 11/01/20 Retail Specialist Relationship Specialty Start Date End Date Bell Maher MD [address] [address] PCP - General Family Medicine 06/02/12 Angelita Lamas MD [address] [place] [place] [address] Hematology/Oncology 11/01/20 Lito Longoria MD [address] [address] Senior Telecommunications Specialist Cardiology 11/01/20 Retail Specialist Relationship Specialty Start Date End Date Bell Maehr MD [address] [place] [place] [address] PCP - General Family Medicine 06/02/12 Angelita Lamas MD [address] [place] [address] Hematology/Oncology 11/01/20 Lito Longoria MD [address] [address] Senior Telecommunications Specialist Cardiology 11/01/20 Retail Specialist Relationship Specialty Start Date End Date Bell Maher MD [address] [place] [address] PCP - General Family Medicine 06/02/12 Angelita Lamas MD [address] [place] [address] Hematology/Oncology 11/01/20 Lito Longoria MD [address] [id number] Senior Telecommunications Specialist Cardiology 11/01/20 Team Status: Inactive Member Role Status Dates Dr. Bell Maher MD Primary Care Provider Active Dr. Dony Flyod MD Attending Provider, Mustapha mireles Active Retail Specialist Relationship Specialty Start Date End Date Bell Maher MD [address] [place] [address] PCP - General Family Medicine 06/02/12 Angelita Lamas MD [address] [place] [address] Hematology/Oncology 11/01/20 Lito Longoria MD [address] [address] Senior Telecommunications Specialist Cardiology 11/01/20 Team Status: Inactive Member Role Status Dates Dr. Bell Maher MD Primary Care Provider Active Dr. Ad Abernathy MD Attending Provider, [place] [facility] Provider Active Team Status: Active Member Role Status Dates Dr. Bell Maher MD Primary Care Provider Active Team Status: Inactive Member Role Status Dates Dr. Bell Maher MD Primary Care Provider Active Start: August 17, 2024 End: August 18, 2024 Dr. Ze Sterling DO Emergency Provider Active Start: August 17, 2024 End: August 18, 2024 Dr. Jesse Bolanos DO Admit Provider Active S tart: August 17, 2024 End: August 18, 2024 Dr. Jesse Bolanos DO Attending Provider Active Start: August 17, 2024 End: August 18, 2024 Dr. Daniele Walls MD Other Provider Active Start: August 17, 2024 End: August 18, 2024 Team Status: Active Member Role Status Dates Dr. Bell Maher MD Primary Care Provider Active Start: August 17, 2024 Dr. Ze Sterling DO Emergency Provider Active Start: August 17, 2024 Dr. Jesse Bolanos DO Admit Provider Active S tart: August 17, 2024 Dr. Jesse Bolanos DO Attending Provider Active Start: August 17, 2024 Dr. Jesse Bolanos DO Other Provider Active S tart: August 17, 2024 Dr. Daniele Walls MD Other Provider Active Start: August 17, 2024 Team Status: Active Member Role Status Dates Dr. Bell Maher MD Primary Care Provider Active Start: August 18, 2024 Dr. Ze Sterling DO Emergency Provider Active Start: August 18, 2024 Dr. Jesse Bolanos DO Admit Provider Active S tart: August 18, 2024 Dr. Jesse Bolanos DO Attending Provider Active Start: August 18, 2024 Dr. Jesse Bolanos DO Other Provider Active S tart: August 18, 2024 Dr. Daniele Walls MD Other Provider Active Start: August 18, 2024 Team Status: Inactive Member Role Status Dates Dr. Bell Maher MD Primary Care Provider Active Start: September 07, 2024 End: September 07, 2024 Dr. Melissa Currie MD Attending Provider Act russell Start: September 07, 2024 End: September 07, 2024 Dr. Melissa Currie MD Referring Provider Act russell Start: September 07, 2024 End: September 07, 2024 Team Status: Inactive Member Role Status Dates Dr. Bell Maher MD Primary Care Provider Active Start: December 05, 2024 End: December 05, 2024 Dr. Alden Hernández MD Attending Provider Active Start: December 05, 2024 End: December 05, 2024 Dr. Alden Hernández MD Referring Provider Active Start: December 05, 2024 End: December 05, 2024 Goals (unrecognized section and content) Goals may be documented in a n alternate section Care Team (unrecognized sect ion and content) Personnel Name: BELL MAHER MD Address: Address: [address] [place] [address] Name: Deidra Musa PT Care Team Personnel Name: Deidra Musa PT Position: P3 Scheduling - Vocational Trainer Advanced Member Role: Other Name: BELL MAHER MD Position: P4 Physician - Primary Care Med Service: Active Provider Member Role: Primary Care Physician Address: Address: [address] [place] [address] Care Team Related Persons Name: FAUSTO SHELTON Chika Address: Home [address] [place], [place] [id number] Care Team Personnel Name: Lencho Veneer Sander Marv PT Position: P3 Scheduling - Vocational Trainer Advanced Member Role: Other Name: BELL MAHER MD Position: P4 Physician - Primary Care Member Role: Primary Care Physician Address: Address: [address] [place] [address] Care Team Related Persons Name: FAUSTO SHELTON Chika Address: Home [address] [place], [place] [id number] Care Team Personnel Name: Lencho Veneer Sander Marv PT Position: P3 Scheduling - Vocational Trainer Advanced Member Role: Other Name: BELL MAHER MD Position: P4 Physician - Primary Care Member Role: Primary Care Physician Address: Address: [address] [place] [address] Care Team Related Persons Name: CAT FAUSTO Chika Address: Home [address] [place], [place] [id number] Care Team Personnel Name: Deidra Musa Clerk Marv PT Position: P3 Scheduling - Vocational Trainer Advanced Member Role: Other Name: BELL MAHER MD Position: P4 Physician - Primary Care Member Role: Primary Care Physician Address: Address: [address] [place] [address] Care Team Related Persons Name: FAUSTO SHELTON Address: Home [address] [place], [place] [id number] Source Comments (unrecognize d section and content) In the event this informatio n is protected by the Federal Confidentiality of Alcohol and Drug Abuse Patient Records regulations: The Federal rules restrict any use of the information to criminally investigate or prosecute any alcohol or drug abuse patient.[facility] the event this information is protected by the Federal Confidentiality of Alcohol and Drug Abuse Patient Records regulations: The Federal rules restrict any use of the information to criminally investigate or prosecute any alcohol or drug abuse patient.[facility] the event this information is protected by the Federal Confidentiality of Alcohol and Drug Abuse Patient Records regulations: The Federal rules restrict any use of the information to criminally investigate or prosecute any alcohol or drug abuse patient.[facility] the event this information is protected by the Federal Confidentiality of Alcohol and Drug Abuse Patient Records regulations: The Federal rules restrict any use of the information to criminally investigate or prosecute any alcohol or drug abuse patient.[facility] the event this information is protected by the Federal Confidentiality of Alcohol and Drug Abuse Patient Records regulations: The Federal rules restrict any use of the information to criminally investigate or prosecute any alcohol or drug abuse patient.[facility] Hospital[facility] the event this information is protected by the Federal Confidentiality of Alcohol and Drug Abuse Patient Records regulations: The Federal rules restrict any use of the information to criminally investigate or prosecute any alcohol or drug abuse patient.[facility] Hospital[facility] the event this information is protected by the Federal Confidentiality of Alcohol and Drug Abuse Patient Records regulations: The Federal rules restrict any use of the information to criminally investigate or prosecute any alcohol or drug abuse patient.[facility] the event this information is protected by the Federal Confidentiality of Alcohol and Drug Abuse Patient Records regulations: The Federal rules restrict any use of the information to criminally investigate or prosecute any alcohol or drug abuse patient.[facility] Hospital[facility] the event this information is protected by the Federal Confidentiality of Alcohol and Drug Abuse Patient Records regulations: The Federal rules restrict any use of the information to criminally investigate or prosecute any alcohol or drug abuse patient.[facility] Hospital[facility] the event this information is protected by the Federal Confidentiality of Alcohol and Drug Abuse Patient Records regulations: The Federal rules restrict any use of the information to criminally investigate or prosecute any alcohol or drug abuse patient.[facility] Hospital[facility] the event this information is protected by the Federal Confidentiality of Alcohol and Drug Abuse Patient Records regulations: The Federal rules restrict any use of the information to criminally investigate or prosecute any alcohol or drug abuse patient.[facility] Reason for Visit (unrecogniz ed section and content) Reason Comments Patient Update Reason Comments Refill Request Reason Comments Assessment Patient Education Reason Comments Patient Education Reason Comments Transplant Evaluation Specialty Diagnoses / Procedures Referred By Contac t Referred To Contact CT IMAGING Diagnoses Chronic renal failure, stage 5 (HCC) Pre-transplant evaluation for kidney transplant Procedures CT ABD/PEL WO IVCON CT ABD & PELVIS W/O CONTRAST Linh Nunez APRN.EQUITY RESEARCH ANALYST [address] [place] [address] [place] [id number] Referral ID Status Reason Start Date Expiration Date V isits Requested Visits Authorized [id number] Closed Auto-Generate d Referral 01/14/2023 02/06/2024 1 1 Reason Comments Committee denial FOR RECORDS PERTAINING TO PATIENTS WHO ARE OR HAVE BEEN ENROLLED IN A CHEMICAL DEPENDENCY/SUBSTANCEABUSE PROGRAM, SOME INFORMATION MAY BE OMITTED. This clinical summary was aggregated from multiple sources. Caution should be exercised in using it in the provision of clinical care. This summary normalizes information from multiple sources, and as a consequence, information in this document may materially change the coding, format and clinical context of patient data. In addition, data may be omitted in some cases. CLINICAL DECISIONS SHOULD BE BASED ON THE PRIMARY CLINICAL RECORDS. [facility] TRADE [facility] [employer] [facility]. provides no warranty or guarantee of the accuracy or completeness of information in this document.
[2025-04-22 20:57] LABS: Prothrombin Time (Protime)PT. 15.2 SECONDS (11.7-14.9)
[2025-04-22 20:58] LABS: Partial Thromboplast Time 34.2 Seconds (24.1-36.2)
--- NOTE | 2025-04-22 21:05 | EX.ED.CRITCA ---
HPI History of Present Illness Chief Complaint: Shortness of Breath Detail of Chief Complaint: Altered mental status, recent [place], arrived by ambulance Informant: EMS Limited: other (Cardiogenic shock due to severe bradycardia) Onset/Context/Timing Onset: - (Presumed today based on history obtained) Context: Sudden Onset Timing: Continuous Quality: Weakness, not thinking correctly, Location: Presents from nursing facility. Current Severity: Severe Maximum Severity: Severe Worsened by: Hypotension due to junctional rhythm rate of 31 Relieved by: External pacemaker Associated Symptoms Associated Symptoms: chest pain (Per niece. Patient had chest pain a couple days ago. This was not addressed according to the niece) Length of loss of consciousness: Altered mental status Narrative Narrative: Patient is a 74-year-old woman. She presents from [facility]. She has a history of anemia of chronic disease, end-stage renal disease, lymphedema, recent myocardial infarction, congestive heart failure, peripheral neuropathy, PAD and hypertension. Patient arrived with a heart rate of 31. Rhythm strip and twelve-lead EKG that was faxed from paramedics reveals a junctional rhythm rate of 30. There is significant ST-T wave changes which may be due to the fact that she is in junctional rhythm with a rate of 30 versus ischemia. Patient is not oriented. Patient is hypotensive. She is mottled and perfusing poorly. History is limited to what I was able to obtain from family members. She apparently has not been doing well since this morning according to family members. And per niece she complained of chest pain 2 days ago. She is new to the facility. She arrived on April 19. Prior similar symptoms: No Recent Illness/Hospitalization: Yes [facility] Medical History Acute myocardial infarction Kidney disease Dialysis patient Weakness Acute dyspnea Pneumonia History of renal dialysis Anemia Wound dehiscence Wears dentures Wears glasses Thyroid disease Walker as ambulation aid Arthritis History of renal disease High cholesterol Back pain Seizures Dietary restriction History of IBS Casiano esophagus Gastric reflux Former smoker Shortness of breath on exertion History of pain when walking History of edema History of echocardiogram Cardiology follow-up encounter History of heart attack Nonrheumatic mitral valve regurgitation History of DVT (deep vein thrombosis) Cellulitis of right lower extremity Renal insufficiency Congestive heart failure (CHF) Ulcer of right lower extremity with fat layer exposed Ulcer of left lower extremity with fat layer exposed Foot drop, left Lumbar disc disease Lumbar radiculopathy Spinal stenosis of lumbar region Rheumatoid arthritis Atherosclerotic heart disease of jena coronary artery without angina pectoris Urinary retention ANDRIY (acute kidney injury) Cellulitis Hyperlipidemia Asthma Hypertension Peripheral neuropathy PAD (peripheral artery disease) Home Medications ?Medication ?Instructions ?Recorded ?Last Taken ?Type nitroglycerin 0.4 mg sublingual 0.4 mg sublingual Q5M PRN Chest 06/19/15 Unknown History tablet Pain aspirin 81 mg tablet,delayed 81 mg PO DAILYCM 11/05/17 08/16/24 Rx release hydroxyzine HCl 25 mg tablet 25 mg PO Q6H PRN PRN Itching 02/10/19 08/16/24 History omeprazole 40 mg capsule,delayed 40 mg PO DAILY GERD 04/11/19 08/16/24 History release clopidogrel 75 mg tablet 75 mg PO DAILY 10/10/21 08/16/24 History levetiracetam 500 mg tablet 500 mg PO BID 10/17/21 08/16/24 History (Keppra) montelukast 10 mg tablet 10 mg PO DAILY 10/17/21 08/16/24 History potassium chloride 10 mEq 40 meq PO SUTUTHSA 10/17/21 08/15/24 History tablet,extended release levothyroxine 50 mcg tablet 50 mcg PO DAILY thyroid 10/27/21 08/16/24 History metoprolol succinate 25 mg 25 mg PO DAILY heart 10/27/21 08/16/24 History tablet,extended release 24 hr ranolazine 500 mg tablet,extended 500 mg PO BID heart 10/27/21 11/09/22 History release,12 hr albuterol sulfate 90 mcg/actuation 1 puff inhalation Q6H PRN PRN 08/17/24 08/16/24 History aerosol inhaler wheezing linaclotide 290 mcg capsule 290 mcg PO DAILY 08/17/24 08/16/24 History (Linzess) melatonin 10 mg capsule 5 mg PO QHS 08/17/24 08/16/24 History multivitamin (Daily Multi-Vitamin 1 tab PO DAILY 08/17/24 08/16/24 History tablet) ondansetron 4 mg disintegrating 4 mg PO DAILY PRN nausea and 08/17/24 Unknown History tablet vomiting rosuvastatin 40 mg tablet 40 mg PO DAILY 08/17/24 08/16/24 History amiodarone 200 mg tablet 200 mg PO DAILY 04/22/25 Unknown History calcium acetate(phosphat bind) 667 667 mg PO TID 04/22/25 Unknown History mg capsule hydrocodone-acetaminophen 5-325mg 1 tab PO Q12H pain 04/22/25 Unknown History 5mg-325mg lubiprostone 8 mcg capsule 8 mcg PO BID 04/22/25 Unknown History (Amitiza) midodrine 10 mg tablet 10 mg PO DAILY 04/22/25 Unknown History pantoprazole 40 mg tablet,delayed 40 mg PO DAILY 04/22/25 Unknown History release Allergy/AdvReac Type Severity Reaction Status Date / Time colesevelam HCl (From Allergy Unknown Verified 04/22/25 20:29 WelChol) metolazone (From Zaroxolyn) Allergy Unknown Verified 04/22/25 20:29 nitrofurantoin Allergy Unknown Verified 04/22/25 20:29 macrocrystalline (From Macrodantin) Penicillins Allergy Unknown Verified 04/22/25 20:29 pravastatin sodium (From Allergy Unknown Verified 04/22/25 20:29 Pravachol) simvastatin AdvReac Other Verified 04/22/25 20:29 tramadol AdvReac Nausea Verified 04/22/25 20:29 Family History Father Heart disease Mother Myocardial infarction, Onset Age: 50 CAD (coronary artery disease) Brother Diabetes Surgical History S/P arteriovenous (AV) fistula creation History of arteriovenostomy for renal dialysis (~12/2021) History of cardiac catheterization Hx of appendectomy History of hysterectomy History of carpal tunnel surgery History of bunionectomy of left great toe History of laminectomy Status post insertion of iliac artery stent Postsurgical percutaneous transluminal coronary angioplasty (PTCA) status Presence of stent in coronary artery Social History Smoking Status: Former smoker alcohol intake: never substance use type: does not use ROS ROS ED Review of Systems ROS Unobtainable: due to mental status Cardiovascular Cardiovascular: Reports chest pain and orthopnea Respiratory/Chest Respiratory/Chest: Reports dyspnea, dyspnea on exertion and orthopnea EXAM Physical Exam Const Vital Signs: 04/22/25 20:28 04/22/25 20:35 04/22/25 20:36 Temperature 97 F L Temperature Source Temporal Pulse Rate 37 L Respiratory Rate 22 H Respiratory Effort Short of Breath Respiratory Depth Normal Respiratory Pattern Normal Blood Pressure 48/37 L Blood Pressure Mean 40 Blood Pressure Source Pulse Ox 100 100 Oxygen Delivery Method Nasal Cannula Nasal Cannula Nasal Cannula Oxygen Flow Rate (L/min) 3 3 3 Fraction of Inspired Oxygen (FIO2) 04/22/25 20:51 04/22/25 21:06 04/22/25 21:10 Temperature Temperature Source Pulse Rate 70 70 70 Respiratory Rate 23 H 22 H 22 H Respiratory Effort Respiratory Depth Respiratory Pattern Blood Pressure 73/50 L 134/69 H 88/63 L Blood Pressure Mean 57 90 71 Blood Pressure Source Pulse Ox 100 100 100 Oxygen Delivery Method Nasal Cannula Nasal Cannula Nasal Cannula Oxygen Flow Rate (L/min) 3 3 3 Fraction of Inspired Oxygen (FIO2) 04/22/25 21:15 04/22/25 21:15 04/22/25 21:30 Temperature Temperature Source Pulse Rate 70 70 69 Respiratory Rate 26 H 21 H 10 L Respiratory Effort Respiratory Depth Respiratory Pattern Blood Pressure 64/23 L 85/54 L Blood Pressure Mean 36 64 Blood Pressure Source Pulse Ox 99 100 100 Oxygen Delivery Method Bi-pap Bi-pap Oxygen Flow Rate (L/min) Fraction of Inspired Oxygen (FIO2) 35 35 35 04/22/25 21:36 04/22/25 21:45 04/22/25 21:51 Temperature 92.8 F L 95.5 F L Temperature Source Core Core Pulse Rate 70 70 Respiratory Rate 20 H 14 Respiratory Effort Respiratory Depth Respiratory Pattern Blood Pressure 87/76 L 89/40 L Blood Pressure Mean 79 56 Blood Pressure Source Pulse Ox 98 100 Oxygen Delivery Method Bi-pap Bi-pap Oxygen Flow Rate (L/min) Fraction of Inspired Oxygen (FIO2) 35 04/22/25 21:51 04/22/25 21:58 04/22/25 22:01 Temperature Temperature Source Pulse Rate 70 70 Respiratory Rate 17 14 Respiratory Effort Short of Breath Respiratory Depth Normal Respiratory Pattern Normal Blood Pressure 69/35 L 71/34 L Blood Pressure Mean 46 46 Blood Pressure Source Monitor Pulse Ox 100 35 100 Oxygen Delivery Method Bi-pap Bi-pap Bi-pap Oxygen Flow Rate (L/min) Fraction of Inspired Oxygen (FIO2) 35 04/22/25 22:21 04/22/25 22:26 Temperature Temperature Source Pulse Rate 70 70 Respiratory Rate 14 13 Respiratory Effort Respiratory Depth Respiratory Pattern Blood Pressure 85/51 L 86/40 L Blood Pressure Mean 62 55 Blood Pressure Source Monitor Monitor Pulse Ox 100 100 Oxygen Delivery Method Bi-pap Bi-pap Oxygen Flow Rate (L/min) Fraction of Inspired Oxygen (FIO2) 35 35 Positive well nourished, well developed and obese Constitutional Narrative: Patient appears ill. She is mottled. Poor perfusion. No carotid, radial or femoral pulse. General Appearance ED: well developed; Negative for pallor Nutritional Appearance: obese HEENT normocephalic and atraumatic Eyes PERRL and EOMs intact bilaterally General Eye ED: Negative for pale conjunctiva or scleral icterus Neck full ROM, no lymphadenopathy and supple Resp Resp Narrative: Patient is slightly tachypneic. There may be slight use of accessory muscles. She does have some bibasilar rales. This could be due to poor inspiration or CHF. Cardio regular rhythm, S1 normal heart sound, S2 normal heart sound and no murmurs Rate: bradycardia GI non-tender, non-distended and no masses Inspection: abdominal distention Auscultation: normoactive bowel sounds Neuro No oriented x3 and CN's II-XII intact bilaterally Sensorium / Orientation: Negative for alert Speech: Negative for speech normal Gait (Neuro): Negative for normal gait Psych Mood & Affect: depressed Skin Skin Narrative: Patient is mottled with poor perfusion. Nurses asked if if they should start fluid bolus. They were informed that patient needs to be paced. Transvenous pacer Was brought to the room. She was placed on external pacer. She captured 85 mA. Her blood pressure is improved. General Skin Exam: Negative for jaundice or pallor MDM MDM MDM Narrative Medical decision making narrative: Cardiogenic shock due to junctional rhythm. Cause may be pericardial effusion/tamponade, myocardial infarction, doubt pulmonary embolus. Doubt medication. She is apparently on metoprolol. Will need to review her med list. She is also on Plavix and aspirin. These were not listed. The medications that are listed presently will need to be compared to the paperwork that accompanies her from the [facility]. If patient is on amiodarone will obtain amiodarone level. Lab Data Attestation: I reviewed the patient's lab results. Lab results narrative: White count is 12.4 with slight shift. H&H is 9.1 and 30.2. MCV is 107.5. Coags are unremarkable. I was called by the lab because her troponin is 8145. Labs: Laboratory Results - last 24 hr 04/22/25 04/22/25 20:37 21:35 WBC 12.4 H RBC 2.81 L Hgb 9.1 L Hct 30.2 L MCV 107.5 H MCH 32.4 H MCHC 30.1 L RDW Std Deviation 73.5 H RDW Coeff of Arvind 19.9 H Plt Count 410 MPV 10.4 Immature Gran % (Auto) 1.500 H Neut % (Auto) 70.8 H Lymph % (Auto) 22.5 [place] % (Auto) 3.9 Eos % (Auto) 0.7 Baso % (Auto) 0.6 Absolute Neuts (auto) 8.8 H Absolute Lymphs (auto) 2.79 Nucleated RBC % 1.3 Differential Comment SCANNED Plt Morphology Comment LARGE Polychromasia 1+ Anisocytosis 2+ PT 15.2 H INR 1.2 APTT 34.2 Sodium 131 L Potassium 8.1 H* Chloride 92 L Carbon Dioxide 16.7 L Anion Gap 22 H BUN 47 H Creatinine 5.90 H Estim Creat Clear Calc 9.36 L* Est GFR (MDRD) Non-Af 7 L BUN/Creatinine Ratio 8.0 L Glucose 174 H Calcium 10.2 Total Bilirubin 0.56 AST 36 H ALT 19 Alkaline Phosphatase 78 Troponin T High Sens 8145 H* Total Protein 7.1 Albumin 3.7 Globulin 3.4 Albumin/Globulin Ratio 1.1 POC Glucose 133 H ABG Data ABG results: ABG 04/22/25 21:02 Specimen Type LOREE Sample Site L Radial O2 % 3.0 VBG pH 7.22 L VBG pO2 34 VBG HCO3 22 VBG Total CO2 24 VBG O2 Sat (Calc) 52 VBG Base Excess -6 L POC Mix VBG pCO2 Pt Tmp 53.8 H O2 Delivery Device Cannula Radiography Diagnostic Testing: Clinical Impression(s) from Imaging Studies Chest X-Ray 04/22/25 21:20 IMPRESSION: Subsegmental atelectasis left lung base. Minimal central congestion. Reading Location: [id number] Management Discussion w/another healthcare provider: Wire Spinner (Spoke with electroneurodiagnostic technologist from [facility]. ) and Other (Care was transferred to [facility] at 2228.) Treatment and Re-Evaluation Narrative: External pacemaker captured at 85 mA. Rate is 70. I was informed at 2127 patient blood pressure was 50 systolic. Dopamine was ordered. Patient's most recent blood pressure 71 systolic. She started on Levophed peripherally. Will place central line if needed. Critical Care Time Critical Care Time: Yes Critical care time (excluding procedures): 30-74 minutes (42), Including time spent: (History, physical, documentation, review of prior records, treatment for cardiogenic shock due to profound bradycardia), Discussing w/Patient &/or Family/Computer Numerical Control Programmer (, granddaughter and niece), Discussing w/Consultants, Arranging Admission or Transfer and Performing Direct Patient Care at Bedside Discharge Plan Triage Chief Complaint: Shortness of Breath ED Provider: Frank Yancey Dx/Rx/DC Orders Clinical Impression: Cardiogenic shock, PAD (peripheral artery disease), Acute hypercapnic respiratory failure, Metabolic acidosis, Elevated troponin, Acute hyperkalemia, End stage chronic kidney disease, Antiplatelet or antithrombotic long-term use, Anemia of chronic disease, Hypothermia Prescriptions: No Action clopidogrel 75 mg tablet 75 mg PO DAILY nitroglycerin 0.4 MG tablet 0.4 mg SUBLINGUAL Q5M PRN (Reason: Chest Pain) Patient Comments: chest pain aspirin 81 MG tablet 81 mg PO DAILYCM 0RF hydroxyzine HCl 25 MG tablet 25 mg PO Q6H PRN PRN (Reason: Itching) Patient Comments: take 1 tablet by mouth every 6 hours if needed omeprazole 40 MG capsule,delayed release(DR/EC) 40 mg PO DAILY levetiracetam [Keppra] 500 mg tablet 500 mg PO BID Patient Comments: take 1 tablet by mouth twice a day potassium chloride 10 mEq tablet extended release 40 meq PO SUTUTHSA montelukast 10 mg tablet 10 mg PO DAILY levothyroxine 50 mcg tablet 50 mcg PO DAILY Patient Comments: take 1 tablet by mouth once daily metoprolol succinate 25 mg tablet extended release 24 hr 25 mg PO DAILY Patient Comments: take 1/2 tablet by mouth once daily ranolazine 500 mg tablet extended release 12 hr 500 mg PO BID Patient Comments: take 1 tablet by mouth twice a day albuterol sulfate 90 mcg/actuation HFA aerosol inhaler 1 puff inhalation Q6H PRN PRN (Reason: wheezing) rosuvastatin 40 mg tablet 40 mg PO DAILY Linzess 290 mcg capsule 290 mcg PO DAILY melatonin 10 mg capsule 5 mg PO QHS ondansetron 4 mg tablet,disintegrating 4 mg PO DAILY PRN (Reason: nausea and vomiting) multivitamin [Daily Multi-Vitamin] Tablet 1 tab PO DAILY calcium acetate(phosphat bind) 667 mg capsule 667 mg PO TID lubiprostone [Amitiza] 8 mcg capsule 8 mcg PO BID amiodarone 200 mg tablet 200 mg PO DAILY pantoprazole 40 mg tablet,delayed release (DR/EC) 40 mg PO DAILY hydrocodone-acetaminophen 5-325 mg tablet 1 tab PO Q12H midodrine 10 mg tablet 10 mg PO DAILY Primary Care Provider: Victor M Mooney Referrals: Victor M Mooney MD [Primary Care Provider] - Print Language: Serbian Disposition Disposition: Acute Care Hospital Discharge Location: [facility]
[2025-04-22 21:06] LABS: FI02 3.0; SITE L Radial; VBG BASE EXCESS -6 mmol/L (-1.0-3.5); VBG PO2 34 mmHg (25-40); VBG SO2 52 % (50-70); VBG TCO2 24 mmol/L (23-33)
[2025-04-22 21:11] LABS: Troponin T High Sensitivity 8145 ng/L (<=14)
[2025-04-22 21:17] LABS: AST(SGOT) 36 U/L (<=31); Alanine Aminotransfer ALT/SGPT 19 U/L (<=34); Albumin, Serum 3.7 g/dL (3.4-4.8); Alkaline Phosphatase 78 U/L (35-104); Anion Gap 22 (5-15); BUN 47 mg/dL (4-19); BUN/Creat Ratio 8.0 RATIO (10-20); Calcium,Total 10.2 mg/dL (7.6-11.0); Carbon Dioxide 16.7 mmol/L (21.0-32.0); Chloride 92 mmol/L (98-108); Estimated Creatinine Clearance 9.36 ml/min (50-250); Globulin 3.4 g/dL (2.2-4.2); Glucose 174 mg/dL (70-99); Potassium 8.1 mmol/L (3.3-5.1)
--- NOTE | 2025-04-22 21:20 | RAD_ITS ---
PROCEDURE: CHEST 1 VIEW (PORTABLE) 04/22/2025 REASON FOR EXAM: DYSPNEA, HYPOTENSION TECHNIQUE: Frontal view of the chest. COMPARISON: August 18, 2024 FINDINGS: Hardware: Cervical spine fusion. EKG leads are seen. Reverse total shoulder arthroplasty partially imaged. Heart: Normal Lungs: Subsegmental atelectasis left base. Mild central congestion. Bones: The bones are unremarkable. RAD/Chest 1 View (Portable) IMPRESSION: Subsegmental atelectasis left lung base. Minimal central congestion. Reading Location: [id number]
[2025-04-22 21:36] LABS: Anisocytosis 2+; Polychromasia 1+
[2025-04-22] MEDS: DOPamine IV 800 MG/250 ML IV.SOLN. 8.4 MG CONT INF (21:36)
[2025-04-22] MEDS: Calcium Gluconate IV 3 GM in Syringe 1 EACH IV (21:37)
[2025-04-22 21:38] LABS: Differential Comment SCANNED
[2025-04-22] MEDS: Insulin Lispro 10 UNIT in Syringe 0 ML 6 UNIT IV (21:39)
[2025-04-22] MEDS: Sodium Bicarbonate 8.4% 50 ML Syringe 50 MEQ IV (21:55)
[2025-04-22] MEDS: Norepinephrine Bit/0.9% NaCl 8 MG/250 ML IV.SOLN 9.4 MG CONT INF (22:13)
--- NOTE | 2025-04-22 22:29 | ED.RN ---
life flight in room at this time
== END 2025-04-22 23:03 | disposition short-term general hospital (02) ==
PROVIDERS: Emergency Provider Emergency Medicine; PCP Family Medicine; Visit Provider Emergency Medicine
DX: R57.0 Cardiogenic shock (principal); I13.2 Hypertensive heart and chronic kidney disease with heart failure and with stage 5 chronic kidney disease, or end stage renal disease; N18.6 End stage renal disease; J96.22 Acute and chronic respiratory failure with hypercapnia; I50.9 Heart failure, unspecified; D63.1 Anemia in chronic kidney disease; E78.00 Pure hypercholesterolemia, unspecified; I25.10 Atherosclerotic heart disease of native coronary artery without angina pectoris; I73.9 Peripheral vascular disease, unspecified; E87.20 Acidosis, unspecified; E87.5 Hyperkalemia; I25.2 Old myocardial infarction; Z86.718 Personal history of other venous thrombosis and embolism; Z87.891 Personal history of nicotine dependence; Z95.0 Presence of cardiac pacemaker; Z79.899 Other long term (current) drug therapy; Z79.82 Long term (current) use of aspirin
CPT/HCPCS: 36600; 51702; 71045; 80053; 82803; 82962; 84439; 84443; 84484; 85025; 85610; 85730; 92953; 93005; 94002; 96365; 96368; 96375; 99285; A4216; J0612